=== PATIENT | male | born 1965 | race Caucasian/White ===

== ENCOUNTER 2021-07-26 15:18 | Emergency (ER) | payer MEDICARE, SELFPAY ==
[2021-07-26 15:20] VITALS: BP 176/108; PULSE 94; RESP 18; TEMP 36.6; O2SAT 98; BMI 26.2
--- NOTE | 2021-07-26 16:54 | EDS_ITS ---
HPI History of Present Illness Chief Complaint: Laceration Informant: patient Narrative Narrative: 55-year-old male presenting with left middle finger injury. Patient accidentally sliced his finger on a potato slicer. This occurred 2 hours prior to arrival. He was not able to get the bleeding to stop. He is on Eliquis. Unknown last tetanus. Tetanus Immunization: Unknown [facility] Medical History (Updated 07/26/21 @ 16:[address] Stacy Duncan MD) Deaf Diabetes HTN (hypertension) Hyperlipidemia Stroke Vision problem Home Medications aspirin 325 mg tablet 325 mg PO DAILY 01/04/20 [History Last Taken Unknown] dorzolamide-timolol (PF) 2 %-0.5 % eye drops in a dropperette 1 drp OPHTHALMIC BID 01/04/20 [History Last Taken Unknown] latanoprost 0.005 % eye drops 1 drp OPHTHALMIC DAILY 01/04/20 [History Last Taken Unknown] pen needle, diabetic 31 gauge x 5/16 #1,200 ea 01/04/20 [History Last Taken Unknown] blood sugar diagnostic #100 ea 03/07/20 [Rx Last Taken Unknown] insulin degludec 200 unit/mL (3 mL) subcutaneous pen 40 unit SC DAILY #9 ml 05/24/20 [Rx Last Taken Unknown] insulin aspart U-100 100 unit/mL (3 mL) subcutaneous pen See Rx Instructions SC TID #30 ml 03/19/21 [Rx Last Taken Unknown] losartan 50 mg tablet 50 mg PO DAILY #30 tab 06/18/21 [Rx Last Taken Unknown] simvastatin 80 mg tablet 80 mg PO QHS #30 tab 07/04/21 [Rx Last Taken Unknown] Allergy/AdvReac Type Severity Reaction Status Date / Time No Known Allergies Allergy Verified 07/26/21 15:20 Family History Mother Diabetes Social History (Updated 05/25/20 @ 19:[address] Roberto Hutson MD) Smoking Status: Never smoker alcohol intake: never substance use type: does not use what type of physical activity do you participate in: none ROS ROS ED Constitutional Constitutional ED: Denies fever(s) Musculoskeletal Musculoskeletal: Reports other Details: left middle finger wound EXAM Physical Exam Const Vital Signs: 07/26/21 15:20 Temperature 98 F Temperature Source Temporal Pulse Rate 94 Respiratory Rate 18 Blood Pressure 176/108 H Blood Pressure Mean 130 Pulse Ox 98 Oxygen Delivery Method Room Air Positive well nourished and well developed General Appearance ED: well developed HEENT Reports normocephalic and head/scalp atraumatic Eyes PERRL and EOMs intact bilaterally Neck supple General: Negative for tenderness Chest Wall inspection of chest normal Resp normal respiratory effort and clear to auscultation bilaterally Cardio regular rate and regular rhythm no CVA tenderness Extremity normal to inspection Extremity Narrative: 0.5 cm left distal middle finger skin avulsion. Mild bleeding. Normal cap refill. Normal tendon function. Neuro oriented x3 Sensorium / Orientation: alert Psych mental status grossly normal MDM MDM MDM Narrative Medical decision making narrative: Wound was cleansed. He was given Tetanus IM. Wound was cleaned and dressed. Advised wound care instructions. Advised follow up with primary care physician. Discharge Plan Triage Chief Complaint: Laceration ED Provider: Stacy Duncan Dx/Rx/DC Orders Clinical Impression: Avulsion of skin Instructions: ED Skin Avulsion Prescriptions: No Action aspirin 325 mg tablet 325 mg PO DAILY RF: 0 (DME) pen needle, diabetic [Comfort EZ Pen [place]] 31 gauge x 5/16 needle See Rx Instructions .ROUTE .MEDSUPPLY Qty: 1,200 RF: 0 latanoprost 0.005 % drops 1 drp OPHTHALMIC DAILY RF: 0 dorzolamide-timolol (PF) 2-0.5 % dropperette 1 drp OPHTHALMIC BID RF: 0 (DME) blood sugar diagnostic [Accu-Chek Guide test strips] Strip See Rx Instructions .ROUTE .MEDSUPPLY Qty: 100 RF: 8 Tresiba FlexTouch U-200 200 unit/mL (3 mL) insulin pen 40 unit SC DAILY Qty: 9 RF: 6 insulin aspart U-100 [Novolog Flexpen U-100 Insulin] 100 unit/mL (3 mL) insulin pen See Rx Instructions SC TID Qty: 30 RF: 6 losartan 50 mg tablet 50 mg PO DAILY Qty: 30 RF: 6 simvastatin 80 mg tablet 80 mg PO QHS Qty: 30 RF: 0 Primary Care Provider: Shantell Campa NP Referrals: Shantell Campa NP, PLANNING ADVISOR-C [Primary Care Provider] - Disposition Disposition: Home, Self Care
== END 2021-07-26 17:27 | disposition home or self-care (01) ==
LOC: ED 17:11
PROVIDERS: Emergency Provider Emergency Medicine; PCP Family Medicine
DX: S61.213A Laceration without foreign body of left middle finger without damage to nail, initial encounter (principal); W26.8XXA Contact with other sharp object(s), not elsewhere classified, initial encounter; Y93.9 Activity, unspecified; Y92.9 Unspecified place or not applicable; I10 Essential (primary) hypertension; E11.9 Type 2 diabetes mellitus without complications; E78.5 Hyperlipidemia, unspecified; H91.90 Unspecified hearing loss, unspecified ear; Z86.73 Personal history of transient ischemic attack (TIA), and cerebral infarction without residual deficits; Z79.4 Long term (current) use of insulin; Z79.82 Long term (current) use of aspirin; Z79.01 Long term (current) use of anticoagulants; Z79.899 Other long term (current) drug therapy
CPT/HCPCS: 90715; 99282

== ENCOUNTER 2021-11-12 15:46 | Emergency (ER) | payer MEDICARE, SELFPAY ==
[2021-11-12 15:49] VITALS: BP 189/130; PULSE 84; RESP 20; TEMP 35.9; O2SAT 99; BMI 26.9
--- NOTE | 2021-11-12 15:57 | ED.RN ---
Pt's step son Ben notified of ER admission per pt's request. He will be coming in.
[2021-11-12 16:11] LABS: Bedside Glucose 68 mg/dL (70-110)
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
[2021-11-12 16:59] VITALS: PULSE 98; RESP 22; O2SAT 98
[2021-11-12 17:01] LABS: Bedside Glucose 70 mg/dL (70-110)
[2021-11-12 17:31] LABS: Bedside Glucose 150 mg/dL (70-110)
== END 2021-11-12 17:55 | disposition home or self-care (01) ==
PROVIDERS: Emergency Provider Emergency Medicine; PCP Family Medicine; Visit Provider Emergency Medicine
DX: E11.649 Type 2 diabetes mellitus with hypoglycemia without coma (principal); Z79.4 Long term (current) use of insulin; E78.5 Hyperlipidemia, unspecified; I10 Essential (primary) hypertension; H91.90 Unspecified hearing loss, unspecified ear; Z86.73 Personal history of transient ischemic attack (TIA), and cerebral infarction without residual deficits; Z79.899 Other long term (current) drug therapy; V89.2XXA Person injured in unspecified motor-vehicle accident, traffic, initial encounter; Y93.9 Activity, unspecified; Y92.9 Unspecified place or not applicable
CPT/HCPCS: 82962; 99285

== ENCOUNTER 2022-05-21 12:56 | Outpatient (RCR) | payer MEDICARE, SELFPAY | END 2022-06-10 23:59 | LOC: DC 12:56 | PROVIDERS: Referring Provider Nurse Practitioner Primary Care; Visit Provider Nurse Practitioner Primary Care | DX: E11.9 Type 2 diabetes mellitus without complications (principal) | CPT/HCPCS: G0108 ==

== ENCOUNTER 2022-07-09 13:00 | Outpatient (RCR) | payer MEDICARE, SELFPAY | END 2022-07-10 23:59 | LOC: DC 13:00 | PROVIDERS: Referring Provider Nurse Practitioner Primary Care; Visit Provider Nurse Practitioner Primary Care | DX: E11.9 Type 2 diabetes mellitus without complications (principal) | CPT/HCPCS: 97802; 97803 ==

== ENCOUNTER 2022-08-05 14:17 | Outpatient (RCR) | payer MEDICARE, SELFPAY | END 2022-08-10 23:59 | LOC: DC 14:17 | PROVIDERS: Referring Provider Nurse Practitioner Primary Care; Visit Provider Nurse Practitioner Primary Care | DX: E11.9 Type 2 diabetes mellitus without complications (principal) | CPT/HCPCS: 97803 ==

== ENCOUNTER 2022-09-01 13:45 | Outpatient (RCR) | payer MEDICARE, SELFPAY | END 2022-09-09 23:59 | LOC: DC 13:45 | PROVIDERS: Referring Provider Nurse Practitioner Primary Care; Visit Provider Nurse Practitioner Primary Care | DX: E11.9 Type 2 diabetes mellitus without complications (principal) | CPT/HCPCS: 97803 ==

== ENCOUNTER 2022-09-15 10:33 | Emergency (ER) | payer MEDICARE, SELFPAY ==
[2022-09-15 10:34] VITALS: BP 174/85; PULSE 82; RESP 22; TEMP 36.5; O2SAT 95
[2022-09-15 10:39] VITALS: O2SAT 96
[2022-09-15 10:41] VITALS: BP 169/88; PULSE 84; RESP 22; TEMP 36.5; O2SAT 96; BMI 28.8
--- NOTE | 2022-09-15 10:56 | ED.RN ---
pt is deaf and does not read well, pt has difficulty understanding what we are asking when we write on paper. pt may have limited reading ability. pt is write on paper the name Corinne Rapp. He is listed as next of kin. an attempt to contact corinne was unsuccessful.
--- NOTE | 2022-09-15 10:59 | ED.RN ---
family at bedside.
[2022-09-15 11:10] LABS: Bedside Glucose 118 mg/dL (74-106)
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
[2022-09-15 12:26] LABS: Bedside Glucose 145 mg/dL (74-106)
[2022-09-15 12:47] VITALS: BP 157/84; PULSE 74; RESP 16; TEMP 36.8; O2SAT 97
== END 2022-09-15 13:02 | disposition home or self-care (01) ==
PROVIDERS: Emergency Provider Emergency Medicine; PCP Nurse Practitioner Family; Visit Provider Emergency Medicine
DX: E10.649 Type 1 diabetes mellitus with hypoglycemia without coma (principal); E10.319 Type 1 diabetes mellitus with unspecified diabetic retinopathy without macular edema; Z79.4 Long term (current) use of insulin; I10 Essential (primary) hypertension; R55 Syncope and collapse; E78.5 Hyperlipidemia, unspecified
CPT/HCPCS: 99285; 82962

== ENCOUNTER 2022-09-16 06:31 | Inpatient (IN) | payer MEDICARE, SELFPAY ==
[2022-09-16] VITALS (26 sets, daily range): BP systolic 137–207; BP diastolic 70–169; PULSE 79–121; RESP 12–38; TEMP 36.2–36.7; O2SAT 88–100; BMI 25.9; BMI 25.5
[2022-09-16] MEDS: Albuterol 2.5 MG/3 ML VIAL.NEB. INHALATION ×4 (06:45→19:15)
[2022-09-16] MEDS: Ipratropium/Albuterol Sulfate 3 ML AMPUL.NEB INHALATION (06:45)
--- NOTE | 2022-09-16 06:46 | EKG12_ITS ---
Test Reason : CP Blood Pressure : / mmHG Vent. Rate : 118 BPM Atrial Rate : 118 BPM P-R Int : 158 ms QRS Dur : 096 ms QT Int : 338 ms P-R-T Axes : 071 084 264 degrees QTc Int : 473 ms Sinus tachycardia Left ventricular hypertrophy with repolarization abnormality Abnormal ECG Confirmed by RUBIN HERMOSILLO, GIANLUCA ([id number]), food expeditor EMMANUEL NEWMAN ([id number]) on 09/17/2022 2:03:14 PM Referred By: KRISTI Confirmed By:CRESCENCIO CONKLIN MD
[2022-09-16 06:56] LABS: Absolute Lymphocyte Count 0.89 X10^3/uL (0.83-4.51); Basophil% 0.9 % (0-1); Eosinophil# 0.07 X10^3/uL; Eosinophils% 0.6 % (0-5); Hematocrit 31.3 % (40-54); Hemoglobin 10.2 g/dL (13.0-16.5); Lymphocyte # 0.89 X10^3/ul (0.83-4.51); Lymphocyte % 8.1 % (19-41); Mean Corp Hgb Conc 32.6 g/dL (32-36); Mean Corpuscular Volume 92.1 fL (80-94); Monocyte# 0.85 X10^3/uL; Monocyte% 7.7 % (0-10); NRBC Flagged by Analyzer 0 % (0-5); Neutrophil # 9.03 X10^3/uL (2.7-7.7); Neutrophil % 82.3 % (47-70); Platelet Count 355 K/mm3 (150-450); RBC Distribution Width CV 12.2 % (11.6-14.6)
[2022-09-16 07:08] LABS: International Normalized Ratio 1.1; Prothrombin Time (Protime)PT. 13.4 SECONDS (11.7-14.9)
[2022-09-16 07:09] LABS: Partial Thromboplast Time 33.3 Seconds (24.1-36.2)
[2022-09-16] MEDS: Nitroglycerin SL (ED/IMG/CATH) 0.4 MG TABLET SL ×3 (07:09→07:21)
[2022-09-16] MEDS: Aspirin 325 MG Tablet PO (07:09)
[2022-09-16 07:21] LABS: Anion Gap 10 (5-15); BUN 92 mg/dL (7-18); BUN/Creat Ratio 10.5 RATIO (10-20); Calcium,Total 8.3 mg/dL (8.5-10.1); Chloride 111 mmol/L (98-107); Creatinine, Serum 8.76 mg/dL (0.70-1.30); EST Glomerular Filtration Rate 7 mL/min (>60); Est Glom Filt Rate - Afr Amer 8 mL/min (>60); Estimated Creatinine Clearance 9.49 ml/min; Glucose 460 mg/dL (74-106); Magnesium 2.4 mg/dL (1.6-2.6); Potassium 4.6 mmol/L (3.5-5.1); Sodium Level 138 mmol/L (136-145); Troponin-I HS 1211 pg/mL (3.0-78.0)
--- NOTE | 2022-09-16 07:34 | EX.ED.DYSGE1 ---
HPI History of Present Illness Chief Complaint: Shortness of Breath Narrative Narrative: Patient is a 57-year-old male who is deaf and has a past medical history of type 1 diabetes as well as hypertension and hyperlipidemia. He has had previous stroke but is currently only on a full-strength aspirin and no true anticoagulation. Patient reported increased shortness of breath over the past 24 hours with some cough and congestion. He felt like symptoms were steadily worsening and secondary to this comes in for evaluation. Please note that the patient is deaf the history is taken from his family member who interprets [facility] Medical History (Updated 09/16/22 @ 07:[address] Pranay Castro, DO) Deaf Diabetes HTN (hypertension) Hyperlipidemia Stroke Vision problem Home Medications aspirin 325 mg tablet 325 mg PO DAILY 01/04/20 [History Last Taken Unknown] dorzolamide-timolol (PF) 2 %-0.5 % eye drops in a dropperette 1 drp ophthalmic (eye) BID 01/04/20 [History Last Taken Unknown] latanoprost 0.005 % eye drops 1 drp ophthalmic (eye) DAILY 01/04/20 [History Last Taken Unknown] pen needle, diabetic 31 gauge x 5/16 (Comfort EZ Pen [place]) #1,200 ea 01/04/20 [History Last Taken Unknown] blood sugar diagnostic (Accu-Chek Guide test strips) #100 ea 03/07/20 [Rx Last Taken Unknown] simvastatin 80 mg tablet 80 mg PO QHS #30 tabs 07/04/21 [Rx Last Taken Unknown] losartan 50 mg tablet 50 mg PO BID #180 tabs 05/11/22 [Rx Last Taken Unknown] insulin aspart U-100 100 unit/mL (3 mL) subcutaneous pen (Novolog Flexpen U-100 Insulin aspart) See Rx Instructions subcut TID #30 mL 07/02/22 [Rx Last Taken Unknown] amlodipine 5 mg tablet 5 mg PO DAILY 09/14/22 [History Last Taken Unknown] omeprazole 20 mg capsule,delayed release 20 mg PO DAILY 09/14/22 [History Last Taken Unknown] insulin degludec 200 unit/mL (3 mL) subcutaneous pen (Tresiba FlexTouch U-200 insulin) 25 unit subcut DAILY 09/16/22 [History Last Taken Unknown] Allergy/AdvReac Type Severity Reaction Status Date / Time No Known Allergies Allergy Verified 09/15/22 10:39 Family History Mother Diabetes Social History Smoking Status: Never smoker alcohol intake: never substance use type: does not use what type of physical activity do you participate in: none ROS ROS ED Constitutional Constitutional ED: Denies fever(s) Eyes Eyes: Denies change in vision ENT ENT ED: Denies sore throat Cardiovascular Cardiovascular: Reports racing heartbeat Respiratory/Chest Respiratory/Chest: Reports cough and dyspnea Gastrointestinal Gastrointestinal: Denies abdominal pain, nausea or vomiting Genitourinary Genitourinary ED: Denies dysuria Musculoskeletal Musculoskeletal: Denies myalgias Neurologic Neurologic: Denies headache(s) EXAM Physical Exam Const Vital Signs: 09/16/22 06:32 09/16/22 06:46 09/16/22 06:45 Temperature 97.3 F L Temperature Source Temporal Pulse Rate 121 H 115 H Respiratory Rate 38 H 34 H Respiratory Effort Short of Breath Labored Accessory Muscle Use Respiratory Pattern Tachypnea Tachypnea Blood Pressure 207/124 H Blood Pressure Mean 151 Pulse Ox 97 Oxygen Delivery Method Room Air Room Air 09/16/22 07:09 09/16/22 07:15 09/16/22 07:21 Temperature Temperature Source Pulse Rate 111 H 112 H 114 H Respiratory Rate Respiratory Effort Respiratory Pattern Blood Pressure 201/89 H 168/88 H 188/108 H Blood Pressure Mean Pulse Ox Oxygen Delivery Method Positive well nourished and well developed General Appearance ED: well developed HEENT Reports dry mucous membranes HEENT Narrative: Mucous membranes are dry and tacky without tongue or lip swelling oral lesions airway edema or compromise Mouth ED: Yes dry mucous membranes Mouth: dry mucous membranes Eyes PERRL and EOMs intact bilaterally Neck supple and no JVD Chest Wall palpation of chest normal Resp Resp Narrative: Patient is tachypneic with diminished breath sounds throughout and faint diffuse expiratory wheezing. Cardio regular rhythm Rate: tachycardic and other Other Details: Radial pulses are plus 2 out of 4 bilaterally they are equal and symmetric Carotid pulses are equal and symmetric as well GI normal to inspection, nondistended, normoactive bowel sounds, non-tender, non-distended and no masses GI Narrative: No voluntary guarding or rigidity no pulsatile mass or fluid wave Auscultation: normoactive bowel sounds Palpation: soft Extremity Extremity Narrative: +1 pitting edema to the bilateral lower extremities that is equal and symmetric Neuro oriented x3 and CN's II-XII intact bilaterally Neuro Narrative: Patient has chronic changes from previous CVA but no new/acute findings Sensorium / Orientation: alert Psych mental status grossly normal Skin no rashes or lesions noted MDM MDM MDM Narrative Medical decision making narrative: Patient presented to the ER extremely hypertensive but had not taken any of his morning medications he was also tachycardic and tachypneic but afebrile and satting in the high 90s on room air. His EKG showed diffuse ST segment depression and with his report of shortness of breath I did have concern for underlying cardiac event or possible PE. He did have faint wheezes noted on exam so he was given breathing treatments and also placed on a sublingual nitro trial because of the ST segment depression noted on his EKG as well as hypertension. The patient's blood pressure improved with the nitro trial but the ST segment depression remained. Lab work revealed that he is now an acute kidney injury with a creatinine of 8.76 and his troponin is elevated at 1211. Secondary to this finding and his depression the case was discussed with cardiology. At this point because of his acute kidney injury I do not recommend that he go to [facility] and they do not recommend a heparin drip. The CTA was changed to a chest x-ray which shows pulmonary vascular congestion without acute infiltrate or pneumothorax. At this time he will be admitted to the hospitalist with plans of cardiology and nephrology consults. As the patient is still maintaining his airway and satting in the mid 90s on room air we will hold off on a nitro drip at this time. Lab Data Attestation: I reviewed the patient's lab results. Labs: Laboratory Results - last 24 hr 09/16/22 09/16/22 09/16/22 06:36 06:36 06:36 WBC 11.0 RBC 3.40 L Hgb 10.2 L Hct 31.3 L MCV 92.1 MCH 30.0 MCHC 32.6 RDW Std Deviation 41.0 RDW Coeff of Jenifer 12.2 Plt Count 355 MPV 12.0 Immature Gran % (Auto) 0.400 Neut % (Auto) 82.3 H Lymph % (Auto) 8.1 L [place] % (Auto) 7.7 Eos % (Auto) 0.6 Baso % (Auto) 0.9 Absolute Neuts (auto) 9.0 H Absolute Lymphs (auto) 0.89 Nucleated RBC % 0 PT 13.4 INR 1.1 APTT 33.3 Sodium 138 Potassium 4.6 Chloride 111 H Carbon Dioxide 17.0 L Anion Gap 10 BUN 92 H Creatinine 8.76 H* Estim Creat Clear Calc 9.49 Est GFR (MDRD) Af Amer 8 L Est GFR (MDRD) Non-Af 7 L BUN/Creatinine Ratio 10.5 Glucose 460 H* Calcium 8.3 L Magnesium 2.4 Troponin I High Sens 1211 H* Radiography Diagnostic Testin view chest x-ray as interpreted by the emergency medicine physician reveals pulmonary vascular congestion without acute infiltrate or pneumothorax Critical Care Time Critical Care Time: Yes Critical care time (excluding procedures): Discussing w/Patient &/or Family/Interior Design Instructor, Discussing w/Consultants and - (Please note critical care time of 33 minutes) Discharge Plan Triage Chief Complaint: Shortness of Breath ED Provider: Pranay Castro Dx/Rx/DC Orders Clinical Impression: Acute renal failure, Non-ST elevated myocardial infarction (non-STEMI), Type 1 diabetes, Hypertensive emergency Prescriptions: No Action aspirin 325 mg tablet 325 mg PO DAILY (DME) pen needle, diabetic [Comfort EZ Pen [place]] 31 gauge x 5/16 needle See Rx Instructions .ROUTE .MEDSUPPLY Qty: 1,200 Rx Instructions: use to inject insulin 4 x qd latanoprost 0.005 % drops 1 drp OPHTHALMIC DAILY dorzolamide-timolol (PF) 2-0.5 % dropperette 1 drp OPHTHALMIC BID (DME) blood sugar diagnostic [Accu-Chek Guide test strips] Strip See Rx Instructions .ROUTE .MEDSUPPLY Qty: 100 8RF Rx Instructions: test 3 times daily losartan 50 mg tablet 50 mg PO BID Qty: 180 1RF omeprazole 20 mg capsule,delayed release(DR/EC) 20 mg PO DAILY amlodipine 5 mg tablet 5 mg PO DAILY insulin degludec [Tresiba FlexTouch U-200] 200 unit/mL (3 mL) insulin pen 25 unit SC DAILY simvastatin 80 mg tablet 80 mg PO QHS Qty: 30 0RF insulin aspart U-100 [Novolog Flexpen U-100 Insulin] 100 unit/mL (3 mL) insulin pen See Rx Instructions SC TID Qty: 30 3RF Rx Instructions: 38 with meals, 16 with snacks, plus ssi, Primary Care Provider: Marta Brooks Referrals: Marta Brooks, DIRECTOR [employer]UC[employer] [Primary Care Provider] - Disposition Disposition: Acute Care Hospital [facility]
--- NOTE | 2022-09-16 07:35 | RAD_ITS ---
STUDY: X-RAY CHEST REASON FOR EXAM: Male, 57 years old. Dyspnea TECHNIQUE: Single AP portable view of the chest. COMPARISON: Comparison is made with prior study dated 12/05/2007. FINDINGS: EKG electrodes are seen. There is evidence of vascular congestion and CHF with superimposed bibasilar atelectasis worse on the right lung base. Blunting of both costophrenic angles. Normal size heart. Normal mediastinum and aric. Normal visualized pulmonary arteries. Normal visualized aortic arch and descending thoracic aorta. Normal visualized thoracic spine. Normal visualized ribs, clavicles, and shoulders. There is no demonstrated abnormality of the visualized soft tissue structures of the upper abdomen. RAD/Chest 1 View (Portable) IMPRESSION: Findings indicative of CHF with superimposed bibasilar atelectasis worse at the right lung base. Electronically Signed: Eleazar Farrar MD at 8:36 EST ,
--- NOTE | 2022-09-16 07:40 | NURSING ---
DR MEAGAN BEE
--- NOTE | 2022-09-16 07:44 | NURSING ---
DR MEAGAN BEE
--- NOTE | 2022-09-16 07:45 | NURSING ---
PCU MEAGAN ACUTE KIDNEY INJURY, NSTEMI
--- NOTE | 2022-09-16 08:20 | CASEMGMT ---
According to the [facility], the following are in-network tertiary facilities: [facility], [facility], [facility], [facility], [facility], [facility], [facility], and . Behzad HALL CM
--- NOTE | 2022-09-16 08:39 | HP.PCM.HOS_ITS ---
[facility] - General General Date of Admission: 09/16/22 Date of Service: 09/16/22 Chief Complaint: Chest pain. Shortness of breath. HPI Narrative SCOTT BUTLER, is a 57 M who presents with chest pain and shortness of breath that began today. Patient is a poor historian due to deafness and history is obtained through emergency room physician, review of documentations as well as interpretation through the patient's stepson as the patient does not read, does not read lips and only signs. Patient had been in his normal state of health but then yesterday, had an event where he fell and was noted to be hypoglycemic. Sent to the emergency room at that time. Patient had a blood sugar of 36. Patient had received D5 and ate some candy and blood sugar improved. Patient is also been having a cough. Just getting worse. In the emergency room, patient was noted to have the following: Pulmonary vascular congestion chest x-ray, glucose of 460, carbon dioxide level of 17 but closed anion gap, creatinine of 8.76, troponin of 1211, and BNP 1085. Patient received bronchodilators, nitroglycerin, aspirin and a dose of insulin in the emergency room. Patient has been on room air. Patient blood pressure was noted to be elevated at 207/124. Patient did not receive treatment for his hypertension. [facility] Medical History (Updated 09/16/22 @ 08:[address] Prabhjot Bliss, ) Congenital deafness Deaf Diabetes HTN (hypertension) Hyperlipidemia Stroke Vision problem Home Medications aspirin 325 mg tablet 325 mg PO DAILY 01/04/20 [History Last Taken Unknown] dorzolamide-timolol (PF) 2 %-0.5 % eye drops in a dropperette 1 drp ophthalmic (eye) BID 01/04/20 [History Last Taken Unknown] latanoprost 0.005 % eye drops 1 drp ophthalmic (eye) DAILY 01/04/20 [History Last Taken Unknown] pen needle, diabetic 31 gauge x 5/16 (Comfort EZ Pen [place]) #1,200 ea 01/04/20 [History Last Taken Unknown] blood sugar diagnostic (Accu-Chek Guide test strips) #100 ea 03/07/20 [Rx Last Taken Unknown] simvastatin 80 mg tablet 80 mg PO QHS #30 tabs 07/04/21 [Rx Last Taken Unknown] losartan 50 mg tablet 50 mg PO BID #180 tabs 05/11/22 [Rx Last Taken Unknown] insulin aspart U-100 100 unit/mL (3 mL) subcutaneous pen (Novolog Flexpen U-100 Insulin aspart) See Rx Instructions subcut TID #30 mL 07/02/22 [Rx Last Taken Unknown] amlodipine 5 mg tablet 5 mg PO DAILY 09/14/22 [History Last Taken Unknown] omeprazole 20 mg capsule,delayed release 20 mg PO DAILY 09/14/22 [History Last Taken Unknown] insulin degludec 200 unit/mL (3 mL) subcutaneous pen (Tresiba FlexTouch U-200 insulin) 25 unit subcut DAILY 09/16/22 [History Last Taken Unknown] Allergy/AdvReac Type Severity Reaction Status Date / Time No Known Allergies Allergy Verified 09/15/22 10:39 Family History (Updated 09/16/22 @ 08:[address] Prabhjot Bliss DO) Mother Diabetes Deaf Surgical History unable to obtain unable to obtain Social History Smoking Status: Never smoker alcohol intake: never substance use type: does not use what type of physical activity do you participate in: none ROS Review of Systems ROS Unobtainable: other Details: Deafness Vital Signs Vital Signs Vital Signs: 09/16/22 06:32 09/16/22 06:46 09/16/22 06:45 Temperature 36.3 C L Temperature Source Temporal Pulse Rate 121 H 115 H Respiratory Rate 38 H 34 H Respiratory Effort Short of Breath Labored Accessory Muscle Use Respiratory Pattern Tachypnea Tachypnea Blood Pressure 207/124 H Blood Pressure Mean 151 Pulse Ox 97 Oxygen Delivery Method Room Air Room Air 09/16/22 07:09 09/16/22 07:15 09/16/22 07:21 Temperature Temperature Source Pulse Rate 111 H 112 H 114 H Respiratory Rate Respiratory Effort Respiratory Pattern Blood Pressure 201/89 H 168/88 H 188/108 H Blood Pressure Mean Pulse Ox Oxygen Delivery Method 09/16/22 07:42 Temperature 36.2 C L Temperature Source Temporal Pulse Rate 108 H Respiratory Rate 27 H Respiratory Effort Respiratory Pattern Blood Pressure 183/169 H Blood Pressure Mean 173 Pulse Ox 94 Oxygen Delivery Method Room Air Weight Weight: 82.2 kg Body Mass Index (BMI) 25.9 Physical Exam Const alert and no apparent distress Constitutional Narrative: Does appear tachypneic but not in any respiratory distress. HEENT normocephalic Resp normal respiratory effort, no retractions, no use of accessory muscles and clear to auscultation bilaterally Cardio regular rate, regular rhythm, S1 normal heart sound and S2 normal heart sound GI normal to inspection, nondistended, normoactive bowel sounds, soft to palpation, non-tender and non-distended Extremity normal to inspection Neuro moves all extremities and no focal motor deficits Psych affect normal Results Lab / Micro Data Attestation: I reviewed the patient's lab results. Result Diagrams: 09/16/22 06:36 09/16/22 06:36 Labs: Laboratory Results - last 24 hr 09/16/22 06:36: WBC 11.0, RBC 3.40 L, Hgb 10.2 L, Hct 31.3 L, MCV 92.1, MCH 30.0, MCHC 32.6, RDW Std Deviation 41.0, RDW Coeff of Jenifer 12.2, Plt Count 355, MPV 12.0, Immature Gran % (Auto) 0.400, Neut % (Auto) 82.3 H, Lymph % (Auto) 8.1 L, [place] % (Auto) 7.7, Eos % (Auto) 0.6, Baso % (Auto) 0.9, Absolute Neuts (auto) 9.0 H, Absolute Lymphs (auto) 0.89, Nucleated RBC % 0 09/16/22 06:36: PT 13.4, INR 1.1, APTT 33.3 09/16/22 06:36: Sodium 138, Potassium 4.6, Chloride 111 H, Carbon Dioxide 17.0 L , Anion Gap 10, BUN 92 H, Creatinine 8.76 H*, Estim Creat Clear Calc 9.49, Est GFR (MDRD) Af Amer 8 L, Est GFR (MDRD) Non-Af 7 L, BUN/Creatinine Ratio 10.5, Glucose 460 H*, Calcium 8.3 L, Magnesium 2.4, Troponin I High Sens 1211 H* 09/16/22 06:36: B-Natriuretic Peptide 1085.0 H Micro: Microbiology 09/16/22 07:05 Nasal Secretion SARS-CoV-2 & FLU Antigen (Rapid) - Final EKG Initial EKG: Attestation: I personally reviewed and interpreted this EKG as follows: Prior EKG tracings: available for review EKG Rhythm Intrepretation: Sinus Rhythm (ST depressions in the inferior leads) Radiology Impression Chest X-Ray 09/16/22 07:35 IMPRESSION: Findings indicative of CHF with superimposed bibasilar atelectasis worse at the right lung base. Electronically Signed: Eleazar Farrar MD at 8:36 EST , Assessment & Plan Assessment/Plan (1) Non-ST elevated myocardial infarction (non-STEMI): PLAN: Troponins were 1211. Patient did have some ST depressions in the inferior leads. Raynaud's troponins may be skewed upwards due to his acute kidney injury but he is having ongoing chest pain. Unclear if this chest pain is actually cardiac or musculoskeletal as patient is a poor historian even with diesel machinist. Plan: * Patient will be put on a heparin drip. Patient did receive aspirin in the emergency room and will continue. * Check an echocardiogram * Consult cardiology * Given his kidney function there is no current plans for cardiac catheterization until his kidney function is improved or stabilized if that would be necessary. * Will start metoprolol tartrate. (2) Acute renal failure: PLAN: Through [facility] I was able to see patient had a BMP on February 19, 2021 and his creatinine at that time was 1.66. I do not see any additional BMPs in the interim. Unclear if this is been just a chronic progression since then or this is been an acute worsening Plan: * Hold losartan * will check urine studies (UA, UCx, Carmen, UCr) * Check renal ultrasound * IV fluids. Patient with metabolic acidosis due to his kidney disease and patient be placed on a bicarb drip * Consult nephrology * No no acute plans for renal replacement therapy at this point. I did tell the patient benjamin, who interpreted that about the possible need for hemodialysis in the future. He relayed that information to the patient. Whether or not the patient understood that is unclear. 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 Blood sugars elevated but patient is not currently in DKA Continue with basal insulin to 25 units daily and his prandial insulin is at 38 but I will change it over 30 but also have a sliding scale insulin. Last A1c from September 14 was 7 (5) Congenital deafness: PLAN: Patient cannot read. Additionally he cannot read lips. He only understands sign language and will require an diesel machinist for communicat ion PLAN: Plan VTE prophylaxis: Not indicated as patient will be anticoagulated. Charges/Coding Visit Charges Inpatient E&M: 77151 Init Hosp L3
--- NOTE | 2022-09-16 09:02 | EKG12_ITS ---
Test Reason : Blood Pressure : / mmHG Vent. Rate : 080 BPM Atrial Rate : 080 BPM P-R Int : 162 ms QRS Dur : 086 ms QT Int : 442 ms P-R-T Axes : 071 080 206 degrees QTc Int : 509 ms Normal sinus rhythm ST & T wave abnormality, consider lateral ischemia Prolonged QT Abnormal ECG When compared with ECG of 16-SEP-2022 06:37, ST less depressed in Lateral leads T wave inversion less evident in Inferior leads Nonspecific T wave abnormality, worse in Anterior leads Confirmed by AMRITA HERMOSILLO, MYRA ([id number]), subeditor EMMANUEL NEWMAN ([id number]) on 09/22/2022 11:32:26 AM Referred By: Du Confirmed By:MYRA CROWE MD
--- NOTE | 2022-09-16 09:02 | US_ITS ---
STUDY: RENAL ULTRASOUND - COMPLETE REASON FOR EXAM: Male, 57 years old. TREVOR TECHNIQUE: Ultrasound evaluation of the kidneys was performed with real-time and static rosales-scale imaging. COMPARISON: None. FINDINGS: RIGHT KIDNEY: Normal location of the right kidney, which is normal in size. The right kidney measures 9.2 cm x 4.9 cm x 4.5 cm. There is diffuse thinning of the renal cortex. The renal cortex measures 0.8 cm. Increased echogenicity of the renal cortex suggestive of medical renal disease. There is no right renal mass or cyst. There are no right renal calculi. There is no right hydronephrosis. DISTAL RIGHT URETER: There is non-visualization of the distal right ureter. There is no demonstrated right ureterovesical junction calculus. There is no demonstrated right ureteral jet. LEFT KIDNEY: with mild renal atrophy. The left kidney measures 8.8 cm x 4.5 cm x 5.9 cm. There is a normal cortex of the left kidney. The renal cortex measures 1.1 cm. Increased cortical echotexture suggesting medical renal disease. There is no left renal mass or cyst. There are no left renal calculi. There is no left hydronephrosis. DISTAL LEFT URETER: There is non-visualization of the distal left ureter. There is no demonstrated left ureterovesical junction calculus. There is no demonstrated left ureteral jet. BLADDER: The distended urinary bladder has a volume of 277 ml. There is a normal wall thickness of the distended urinary bladder. There is no demonstrated mass within the urinary bladder. There are no demonstrated bladder calculi. US/Kidney and Bladder IMPRESSION: Increased bilateral renal cortical echotexture. This may represent medical renal disease. Electronically Signed: Eleazar Farrar MD at 12:25 EST ,
--- NOTE | 2022-09-16 09:02 | ECHOD_ITS ---
Reason For Study: NSTEMI Procedure This was a 2D Doppler, Color Flow transthoracic echocardiogram. Technically difficult study, patient unable to hold still and needed to sit up due to SOB. Exam performed portable in patient room. Left Ventricle Normal LV size. The estimated ejection fraction is 35 %. Stage 3 diastolic dysfunction. There is moderate to severe global hypokinesis of the left ventricle. Right Ventricle Normal RV size. Normal systolic function. Atria Normal left atrium. Normal right atrium. Mitral Valve Normal mitral valve. Mild-Moderate (1-2+) eccentric mitral valve insufficiency. Tricuspid Valve Normal tricuspid valve. Mild to moderate (1-2+) tricuspid valve insufficiency. Pulmonary artery systolic pressure is 40 mmHg. Aortic Valve Trisinus/trileaflet aortic valve. Pericardium/Pleural No pericardial effusion. MMode/2D Measurements & Calculations LVIDd: 4.7 cm IVSd: 1.1 cm Ao root diam: 3.4 cm LVIDs: 3.7 cm LVPWd: 0.72 cm LA dimension: 4.0 cm RVDd: 4.1 cm FS: 22.6 % LAV(MOD-bp): 48.5 ml LA A4 area: 17.2 cm2 RA A4 area: 14.1 cm2 LAV(MOD-bp) Indexed: 24.2 ml/m2 LAV(MOD-sp2): 40.8 ml LAV(MOD-sp4): 50.4 ml Time Measurements MV dec time: 0.14 sec Doppler Measurements & Calculations MV E max pato: 106.5 cm/sec Lat Peak E' Pato: 6.3 cm/sec Med Peak E' Pato: 5.5 cm/sec MV A max pato: 57.0 cm/sec E/E' lat: 17.0 E/E' med: 19.4 MV E/A: 1.9 MV V2 max: 106.6 cm/sec MV P1/2t max pato: 106.6 cm/sec Ao V2 max: 109.2 cm/sec MV max P.6 mmHg MV P1/2t: 18.4 msec Ao max P.8 mmHg MV V2 mean: 58.4 cm/sec MV mean P.6 mmHg MV dec slope: 1699 cm/sec2 MV V2 VTI: 20.4 cm MVA(P1/2t): 12.0 cm2 LV V1 max: 99.0 cm/sec MR max pato: 555.9 cm/sec PA V2 max: 90.9 cm/sec LV V1 max P.9 mmHg MR max P.6 mmHg MR mean pato: 418.4 cm/sec MR mean P.0 mmHg MR VTI: 171.4 cm PI end-d pato: 214.1 cm/sec TR max pato: 300.1 cm/sec TR max P.0 mmHg ECHO/Echo Complete Interpretation Summary Normal LV size. The estimated ejection fraction is 35 %. Stage 3 diastolic dysfunction. There is moderate to severe global hypokinesis of the left ventricle. Mild-Moderate (1-2+) eccentric mitral valve insufficiency. Pulmonary artery systolic pressure is 40 mmHg. Ordering Physician: Prabhjot Bliss Referring Physician: Marta Brooks Performed By: Bert Thompson RCS
[2022-09-16] MEDS: Insulin Lispro 100 UNIT/ML INSULN.PEN 10 UNIT SC (09:32)
[2022-09-16] MEDS: HEPARIN/D5w 25,000 UNITS 25,000 UNITS/250 ML IV.SOLN. 10 UNITS CONT INF (09:36)
[2022-09-16] MEDS: Heparin Injection (Vial) 5,000 UNIT/ML VIAL 4000 UNIT IV (09:36)
[2022-09-16] MEDS: hydrALAZINE 20 MG/ML Vial 10 MG IV (09:37)
[2022-09-16] MEDS: 0.9% Saline Lock 10 ML Syringe IV (09:37)
--- NOTE | 2022-09-16 09:37 | PCM.CONS.C ---
Assessment & Plan Assessment/Plan (1) Non-ST elevated myocardial infarction (non-STEMI): PLAN: Patient presents with a non-ST elevation myocardial infarction. With his risk factors of hypertension as well as diabetes mellitus it is likely that he has premature coronary artery disease. At this point in time it is paramount that his renal function be evaluated before any cardiac catheterization is performed. Would recommend continuation of baby aspirin Intravenous heparin Start beta-gwyn Obtain echocardiogram to assess ventricular function Depending on these findings further recommendations will be made (2) Hypertensive emergency: PLAN: Aggressive treatment of his blood pressure should be instituted initially with amlodipine Recommend addition of the beta-gwyn As needed hydralazine Thank you for allowing me to participate in the care of your patient. Please don't hesitate to call if any issues arise. HPI Consult Data Date of Consult: 09/16/22 HPI Narrative HPI Narrative: SCOTT BUTLER, is a 57 M who presents to the emergency room with some complaints of shortness of breath and chest discomfort. He communicates by sign language only. His discomfort apparently started earlier in the day. He does have history of hypertension and diabetes mellitus and apparently yesterday he had an event where he felt was noted to be hypoglycemic. In the emergency room where he was brought he was noted to have markedly elevated blood pressure, EKG changes with some ST depression and LVH and he was noted to have evidence of elevated troponin and acute renal failure. Cardiology was called because of the ST changes in the troponin. At this particular time he denies any chest pain or paroxysmal nocturnal dyspnea he does have mild pedal edema. He also has a mild cough. [facility]LY [facility], [facility] Medical History Congenital deafness Deaf Diabetes HTN (hypertension) Hyperlipidemia Stroke Vision problem Home Medications aspirin 325 mg tablet 325 mg PO DAILY 01/04/20 [History Last Taken Unknown] dorzolamide-timolol (PF) 2 %-0.5 % eye drops in a dropperette 1 drp ophthalmic (eye) BID 01/04/20 [History Last Taken Unknown] latanoprost 0.005 % eye drops 1 drp ophthalmic (eye) DAILY 01/04/20 [History Last Taken Unknown] pen needle, diabetic 31 gauge x 5/16 (Comfort EZ Pen [place]) #1,200 ea 01/04/20 [History Last Taken Unknown] blood sugar diagnostic (Accu-Chek Guide test strips) #100 ea 03/07/20 [Rx Last Taken Unknown] simvastatin 80 mg tablet 80 mg PO QHS #30 tabs 07/04/21 [Rx Last Taken Unknown] losartan 50 mg tablet 50 mg PO BID #180 tabs 05/11/22 [Rx Last Taken Unknown] insulin aspart U-100 100 unit/mL (3 mL) subcutaneous pen (Novolog Flexpen U-100 Insulin aspart) See Rx Instructions subcut TID #30 mL 07/02/22 [Rx Last Taken Unknown] amlodipine 5 mg tablet 5 mg PO DAILY 09/14/22 [History Last Taken Unknown] omeprazole 20 mg capsule,delayed release 20 mg PO DAILY 09/14/22 [History Last Taken Unknown] insulin degludec 200 unit/mL (3 mL) subcutaneous pen (Tresiba FlexTouch U-200 insulin) 25 unit subcut DAILY 09/16/22 [History Last Taken Unknown] Allergy/AdvReac Type Severity Reaction Status Date / Time No Known Allergies Allergy Verified 09/15/22 10:39 Family History Mother Diabetes Deaf Surgical History unable to obtain Social History Smoking Status: Never smoker alcohol intake: never substance use type: does not use what type of physical activity do you participate in: none ROS Constitutional Constitutional: Denies fever(s) or weight loss Eyes Eyes: Reports systems reviewed and no addt'l complaints, except as documented ENT HEENT: Reports systems reviewed and no addt'l complaints, except as documented Cardiovascular Cardiovascular: Reports chest pain at rest, dyspnea at rest and dyspnea on exertion; Denies chest pain with activity, edema, palpitations or paroxysmal nocturnal dyspnea Respiratory/Chest Respiratory/Chest: Denies dyspnea on exertion, productive cough, shortness of breath at rest or shortness of breath with exertion Gastrointestinal Gastrointestinal: Denies change in bowel habits, nausea, vomiting or weight changes Genitourinary Genitourinary: Denies difficulty urinating Musculoskeletal Musculoskeletal: Denies joint stiffness or muscle weakness Integumentary Integumentary: Denies lesions Neurologic Neurologic: Denies dizziness or syncope Psychiatric Psychiatric: Denies anxiety Endocrine Endocrinology: Denies excessive sweating or fatigue Hematologic/Lymphatic Hematologic/Lymphatic: Denies anemia Allergic/Immunologic Allergic/Immunologic: Denies seasonal rhinorrhea Physical Exam Const alert, oriented x3 and no apparent distress General Appearance: cooperative HEENT hearing grossly normal bilaterally Head and Scalp: atraumatic Eyes EOMs intact bilaterally Neck General: normal visual inspection Chest inspection of chest normal and palpation of chest normal Resp normal respiratory effort Auscultation: crackles Cardio regular rate, regular rhythm, S1 normal heart sound and S2 normal heart sound Jugular Venous Distention: JVD GI normal to inspection, nondistended, normoactive bowel sounds Extremity normal capillary refill and no pedal edema Peripheral Pulses: Yes pulses 2+ throughout and femoral pulses present Skin no rashes or lesions noted Neuro oriented x3 and CN's II-XII intact bilaterally Psych Appearance: grossly normal and appropriate Risk Stratification Risk Stratification Applicable: Yes Age >/= 65: No >/= 3 CAD Risk Factors (HTN, HLD, DM, family hx of CAD, or current smoker): Yes Aspirin Use in the Past 7 Days: Yes Severe Angina (>/= episodes in 24 hours): No EKG ST Changes >/= 0.5mm: Yes Positive Cardiac Marker: Yes KAEL Risk Stratification Score: 4 KAEL % Risk: 20% Risk Objective Data Vital Signs: Vital Signs Temp Pulse Resp BP Pulse Ox O2 Del Method 97.5 F L 110 H 26 H 199/104 H 95 Room Air 09/16/22 09:14 09/16/22 09:14 09/16/22 09:14 09/16/22 09:14 09/16/22 09:14 09/16/22 09:14 Oxygen Delivery Method Room Air Weight: 181 lb 3.52 oz Body Mass Index (BMI) 25.9 Lab / Micro Data Result Diagrams: 09/16/22 06:36 09/16/22 06:36 Labs: Laboratory Results - last 24 hr 09/16/22 06:36: WBC 11.0, RBC 3.40 L, Hgb 10.2 L, Hct 31.3 L, MCV 92.1, MCH 30.0, MCHC 32.6, RDW Std Deviation 41.0, RDW Coeff of Jenifer 12.2, Plt Count 355, MPV 12.0, Immature Gran % (Auto) 0.400, Neut % (Auto) 82.3 H, Lymph % (Auto) 8.1 L, [place] % (Auto) 7.7, Eos % (Auto) 0.6, Baso % (Auto) 0.9, Absolute Neuts (auto) 9.0 H, Absolute Lymphs (auto) 0.89, Nucleated RBC % 0 09/16/22 06:36: PT 13.4, INR 1.1, APTT 33.3 09/16/22 06:36: Sodium 138, Potassium 4.6, Chloride 111 H, Carbon Dioxide 17.0 L, Anion Gap 10, BUN 92 H, Creatinine 8.76 H*, Estim Creat Clear Calc 9.49, Est GFR (MDRD) Af Amer 8 L, Est GFR (MDRD) Non-Af 7 L, BUN/Creatinine Ratio 10.5, Glucose 460 H*, Calcium 8.3 L, Magnesium 2.4, Troponin I High Sens 1211 H* 09/16/22 06:36: B-Natriuretic Peptide 1085.0 H Micro: Microbiology 09/16/22 07:05 Nasal Secretion SARS-CoV-2 & FLU Antigen (Rapid) - Final Cardiology Labs/Tests 09/16/22 06:36: WBC 11.0, RBC 3.40 L, Hgb 10.2 L, Hct 31.3 L, MCV 92.1, MCH 30.0, MCHC 32.6, Plt Count 355, MPV 12.0, Immature Gran % (Auto) 0.400, Neut % (Auto) 82.3 H, Lymph % (Auto) 8.1 L, [place] % (Auto) 7.7, Eos % (Auto) 0.6, Baso % (Auto) 0.9, Absolute Neuts (auto) 9.0 H, Nucleated RBC % 0 09/16/22 06:36: PT 13.4, INR 1.1, APTT 33.3 09/16/22 06:36: Sodium 138, Potassium 4.6, Chloride 111 H, Carbon Dioxide 17.0 L, Anion Gap 10, BUN 92 H, Creatinine 8.76 H*, Est GFR (MDRD) Af Amer 8 L, Est GFR (MDRD) Non-Af 7 L, BUN/Creatinine Ratio 10.5, Glucose 460 H*, Calcium 8.3 L, Magnesium 2.4 09/16/22 06:36: B-Natriuretic Peptide 1085.0 H Rhythm: EKG: ECHO: Stress Test: Cardiac Cath: PCI: CT Surgery: Holter monitor: EPS: PPM: CXR: Chest CT Scan: Radiography Diagnostic Testing: Radiology Impression Chest X-Ray 09/16/22 07:35 IMPRESSION: Findings indicative of CHF with superimposed bibasilar atelectasis worse at the right lung base. Electronically Signed: Eleazar Farrar MD at 8:36 EST ,
[2022-09-16 09:56] LABS: Troponin-I HS 2012 pg/mL (3.0-78.0)
[2022-09-16] MEDS: Insulin Glargine-YFGN 100 UNIT/ML Pen 25 UNIT SC (10:47)
[2022-09-16] MEDS: Insulin Lispro 100 UNIT/ML INSULN.PEN 38 UNIT SC (10:47)
[2022-09-16] MEDS: Pantoprazole Sodium 20 MG Tablet PO (10:50)
[2022-09-16] MEDS: amLODIPine 5 MG Tablet PO (10:50)
[2022-09-16] MEDS: Metoprolol Tartrate 50 MG Tablet PO ×2 (10:50→23:52)
[2022-09-16] MEDS: Dorzolamide HCL/Timolol 10 ml Bottle 1 DRP OPHTHALMIC ×2 (10:50→23:51)
[2022-09-16 11:26] LABS: Bedside Glucose 398 mg/dL (74-106)
--- NOTE | 2022-09-16 11:32 | NURSING ---
Complained of SOB, pulse ox 88% on 2l/nc. Oxygen applied at 2l/NC, pulse ox 92%. Dr. Bliss notified.
[2022-09-16 12:56] LABS: Troponin-I HS 2864 pg/mL (3.0-78.0)
[2022-09-16] MEDS: Insulin Lispro 100 UNIT/ML INSULN.PEN SC (13:02)
[2022-09-16 13:26] LABS: Bedside Glucose 240 mg/dL (74-106)
--- NOTE | 2022-09-16 15:39 | PCM.CONS.R ---
Assessment & Plan Assessment/Plan (1) Acute renal failure: PLAN: No recent baseline creatinine available. We'll call family members/primary care physician. Came in with a creatinine of 8. Renal ultrasound without any hydronephrosis. Urine analysis and other labs ordered. Acidosis, presumably due to renal failure. IV fluids with bicarbonate for now. Elevated troponins. Cardiology on consult. HPI Consult Data Date of Consult: 09/16/22 HPI Narrative Reason for Consultation: Acute renal failure HPI Narrative: SCOTT BUTLER, is a 57 M who presents To the hospital with shortness of breath. Nephrology on consultation for acute renal failure. Patient communicates somewhat through writing, needs dress designer for most of the conversation. History of diabetes, type II, documented retinopathy as per previous records. No recent creatinine available, last known creatinine was 1.3 but that was in 2013. We'll call family to see if any recent creatinine value available. Denies any obstructive symptoms. Came in with a creatinine of 8, elevated troponins, elevated blood pressure, elevated blood glucose. [facility] Medical History Congenital deafness Deaf Diabetes HTN (hypertension) Hyperlipidemia Stroke Vision problem Home Medications aspirin 325 mg tablet 325 mg PO DAILY [facility] 01/04/20 [History Last Taken 09/15/22] dorzolamide-timolol (PF) 2 %-0.5 % eye drops in a dropperette 1 drp ophthalmic (eye) BID eyes 01/04/20 [History Last Taken Unknown] latanoprost 0.005 % eye drops 1 drp ophthalmic (eye) DAILY eyes 01/04/20 [History Last Taken Unknown] pen needle, diabetic 31 gauge x 5/16 (Comfort EZ Pen [place]) #1,200 ea 01/04/20 [History Last Taken Unknown] blood sugar diagnostic (Accu-Chek Guide test strips) #100 ea 03/07/20 [Rx Last Taken Unknown] simvastatin 80 mg tablet 80 mg PO QHS #30 tabs 07/04/21 [Rx Last Taken Unknown] losartan 50 mg tablet 50 mg PO BID #180 tabs 05/11/22 [Rx Last Taken Unknown] insulin aspart U-100 100 unit/mL (3 mL) subcutaneous pen (Novolog Flexpen U-100 Insulin aspart) See Rx Instructions subcut TID #30 mL 07/02/22 [Rx Last Taken Unknown] amlodipine 5 mg tablet 5 mg PO DAILY BP 09/14/22 [History Last Taken 09/15/22] omeprazole 20 mg capsule,delayed release 20 mg PO DAILY stomach 09/14/22 [History Last Taken Unknown] insulin degludec 200 unit/mL (3 mL) subcutaneous pen (Tresiba FlexTouch U-200 insulin) 25 unit subcut DAILY diabetes 09/16/22 [History Last Taken 09/15/22] Allergy/AdvReac Type Severity Reaction Status Date / Time No Known Allergies Allergy Verified 09/15/22 10:39 Family History Mother Diabetes Deaf Surgical History unable to obtain Social History Smoking Status: Never smoker alcohol intake: never substance use type: does not use what type of physical activity do you participate in: none ROS ROS Narrative negative except above Physical Exam Narrative Alert awake oriented x 3 no obvious distress no pallor no icterus no JVD s1s2 no murmurs lungs clear abdomen soft no organomegaly no edema no cyanosis Lab / Micro Data Result Diagrams: 09/16/22 06:36 09/16/22 06:36 Labs: Laboratory Results - last 24 hr 09/16/22 06:36: WBC 11.0, RBC 3.40 L, Hgb 10.2 L, Hct 31.3 L, MCV 92.1, MCH 30.0, MCHC 32.6, RDW Std Deviation 41.0, RDW Coeff of Jenifer 12.2, Plt Count 355, MPV 12.0, Immature Gran % (Auto) 0.400, Neut % (Auto) 82.3 H, Lymph % (Auto) 8.1 L, [place] % (Auto) 7.7, Eos % (Auto) 0.6, Baso % (Auto) 0.9, Absolute Neuts (auto) 9.0 H, Absolute Lymphs (auto) 0.89, Nucleated RBC % 0 09/16/22 06:36: PT 13.4, INR 1.1, APTT 33.3 09/16/22 06:36: Sodium 138, Potassium 4.6, Chloride 111 H, Carbon Dioxide 17.0 L, Anion Gap 10, BUN 92 H, Creatinine 8.76 H*, Estim Creat Clear Calc 9.49, Est GFR (MDRD) Af Amer 8 L, Est GFR (MDRD) Non-Af 7 L, BUN/Creatinine Ratio 10.5, Glucose 460 H*, Calcium 8.3 L, Magnesium 2.4, Troponin I High Sens 1211 H* 09/16/22 06:36: B-Natriuretic Peptide 1085.0 H 09/16/22 09:15: Troponin I High Sens 2012 H* 09/16/22 10:46: POC Glucose 398 H 09/16/22 12:20: Troponin I High Sens 2864 H* 09/16/22 12:55: POC Glucose 240 H Micro: Microbiology 09/16/22 07:05 Nasal Secretion SARS-CoV-2 & FLU Antigen (Rapid) - Final Radiology Impression Chest X-Ray 09/16/22 07:35 IMPRESSION: Findings indicative of CHF with superimposed bibasilar atelectasis worse at the right lung base. Electronically Signed: Eleazar Farrar MD at 8:36 EST , Renal Ultrasound 09/16/22 09:02 IMPRESSION: Increased bilateral renal cortical echotexture. This may represent medical renal disease. Electronically Signed: Eleazar Farrar MD at 12:25 EST ,
[2022-09-16 16:14] LABS: Partial Thromboplast Time 86.1 Seconds (24.1-36.2)
[2022-09-16] MEDS: [UNRECOGNIZED DRUG - OTHER] IV (16:22)
[2022-09-16] MEDS: SODIUM BICARBONATE IV (16:22)
[2022-09-16 16:45] LABS: Allen Test Positive; Base Excess -10 mmol/L (-2 to +2); Bicarbonate 14.4 mmol/L (22-26); Blood Gas Specimen Type ART; FI02 40; Mode BiLevel; O2 Delivery Device BiPAP; PEEP 8; PO2 186 mmHG (75-100); PS 14; RR 12; SITE R Radial; SO2 100 % (95-99); Total Carbon Dioxide 15 mmol/L; pH 7.41 (7.35-7.45)
[2022-09-16] MEDS: Insulin Lispro 100 UNIT/ML INSULN.PEN 30 UNIT SC (16:50)
[2022-09-16 17:31] LABS: Bedside Glucose 123 mg/dL (74-106)
--- NOTE | 2022-09-16 23:15 | NURSING ---
pt blood glucose of 19, no hypoglycemia protocol. pt was awake, confused, and was able to drink some juice for us which brought pt glucose to 74. MD notified and ordered hypoglycemia protocol, glargine and scheduled Humalog dc'd. Given 25gm of d50 IV, and repeat blood glucose was 193. pt mental status back to baseline and was able to communicate through writing again, sign language, hand gestures, and with simple words such as yes, or no.
--- NOTE | 2022-09-16 23:17 | PCM.PN.BLA ---
Progress Note Blood glucose of 19. Discontinue basal and prandial insulin. Hypoglycemia orders placed.
[2022-09-16] MEDS: Dextrose 50%-Water 25 GM/50 ML DISP.SYRIN IV (23:21)
[2022-09-16 23:28] LABS: Partial Thromboplast Time 47.8 Seconds (24.1-36.2)
[2022-09-16] MEDS: Acetaminophen 500 MG Tablet 1000 MG PO (23:52)
[2022-09-16] MEDS: Atorvastatin Calcium 40 MG Tablet PO (23:52)
[2022-09-16] MEDS: Latanoprost 0.005% 1 Bottle 1 DRP OPHTHALMIC (23:53)
[2022-09-17] VITALS (28 sets, daily range): BP systolic 114–189; BP diastolic 63–100; PULSE 26–96; RESP 12–25; TEMP 36.2–36.6; O2SAT 87–100
[2022-09-17 00:55] LABS: Bedside Glucose 193 mg/dL (74-106)
--- NOTE | 2022-09-17 01:12 | CPS ---
patient was 89% on ,40 via bipap. patient increased to .50.
[2022-09-17 06:12] LABS: Absolute Lymphocyte Count 0.63 X10^3/uL (0.83-4.51); Absolute Neutrophil Count 8.6 X10^3/uL (2.0-7.7); Basophil# 0.02 X10^3/uL; Basophil% 0.2 % (0-1); Eosinophil# 0.01 X10^3/uL; Eosinophils% 0.1 % (0-5); Hematocrit 26.2 % (40-54); Hemoglobin 8.6 g/dL (13.0-16.5); Lymphocyte # 0.63 X10^3/ul (0.83-4.51); Lymphocyte % 6.3 % (19-41); Mean Corp Hgb Conc 32.8 g/dL (32-36); Mean Corpuscular Hgb 29.6 pg (27.0-32.0); Mean Platelet Vol. 11.6 fl (6.2-12.0); Monocyte# 0.63 X10^3/uL; Monocyte% 6.3 % (0-10); NRBC Flagged by Analyzer 0 % (0-5); Neutrophil # 8.59 X10^3/uL (2.7-7.7); Neutrophil % 86.6 % (47-70); Platelet Count 272 K/mm3 (150-450); RBC Distribution Width CV 12.4 % (11.6-14.6); RBC Distribution Width SD 40.6 fl (35.1-43.9); Red Blood Count 2.91 M/mm3 (4.6-6.2); White Blood Count 9.9 K/mm3 (4.4-11.0)
[2022-09-17] MEDS: Acetaminophen 500 MG Tablet 1000 MG PO ×3 (06:23→21:45)
[2022-09-17 06:31] LABS: Partial Thromboplast Time 62.9 Seconds (24.1-36.2)
[2022-09-17] MEDS: SODIUM BICARBONATE IV ×3 (06:31→15:07)
[2022-09-17] MEDS: [UNRECOGNIZED DRUG - OTHER] IV ×3 (06:31→15:07)
[2022-09-17 07:01] LABS: ALB/GLOB Ratio 0.6 RATIO (0.9-2.4); AST(SGOT) 21 U/L (15-37); Alanine Aminotransfer ALT/SGPT 19 U/L (16-61); Albumin, Serum 2.2 g/dL (3.2-5.0); Alkaline Phosphatase 48 U/L (45-117); Anion Gap 10 (5-15); BUN 94 mg/dL (7-18); BUN/Creat Ratio 11.6 RATIO (10-20); Bilirubin, Direct 0.08 mg/dL (0.00-0.30); Calcium,Total 7.7 mg/dL (8.5-10.1); Chloride 108 mmol/L (98-107); EST Glomerular Filtration Rate 7 mL/min (>60); Est Glom Filt Rate - Afr Amer 9 mL/min (>60); Estimated Creatinine Clearance 10.26 ml/min; Globulin 3.7 g/dL (2.2-4.2); Glucose 138 mg/dL (74-106); Potassium 4.4 mmol/L (3.5-5.1); Protein, Total 5.9 g/dL (6.4-8.2); Sodium Level 136 mmol/L (136-145); Thyroid Stim Hormone (TSH) 2.58 uIU/mL (0.358-3.74)
[2022-09-17 07:10] LABS: Bedside Glucose 120 mg/dL (74-106)
--- NOTE | 2022-09-17 07:33 | PN.CARD_ITS ---
Subjective Subjective Patient seen and evaluated. Appears to be stable at this time. Sitting in bed. Objective Data Vital Signs: Vital Signs Temp Pulse Resp BP Pulse Ox O2 Del Method O2 Flow Rate 97.1 F L 26 L 22 H 144/81 H 94 Nasal Cannula 2 09/17/22 03:41 09/17/22 03:48 09/17/22 03:41 09/17/22 03:41 09/17/22 03:48 09/17/22 03:48 09/17/22 03:48 FiO2 50 09/17/22 03:24 Oxygen Flow Rate (L/min) 2 Oxygen Delivery Method Nasal Cannula Weight: 179 lb 10.828 oz Body Mass Index (BMI) 25.5 Intake & Output: Intake and Output for Last 24 Hours 09/15/22 09/16/22 09/17/22 23:59 23:59 23:59 Intake Total 2974.5 / 3274.5 1342.9 / 1342.9 Output Total 250 / 250 100 / 100 Balance 2724.5 / 3024.5 1242.9 / 1242.9 Lab / Micro Data Result Diagrams: 09/17/22 05:59 09/17/22 05:59 Labs: Laboratory Results - last 24 hr 09/16/22 06:36: B-Natriuretic Peptide 1085.0 H 09/16/22 09:15: Troponin I High Sens 2012 H* 09/16/22 10:46: POC Glucose 398 H 09/16/22 12:20: Troponin I High Sens 2864 H* 09/16/22 12:55: POC Glucose 240 H 09/16/22 15:40: APTT 86.1 H 09/16/22 16:48: POC Glucose 123 H 09/16/22 22:45: APTT 47.8 H 09/17/22 00:03: POC Glucose 193 H 09/17/22 05:59: WBC 9.9, RBC 2.91 L, Hgb 8.6 L, Hct 26.2 L, MCV 90.0, MCH 29.6, MCHC 32.8, RDW Std Deviation 40.6, RDW Coeff of Jenifer 12.4, Plt Count 272, MPV 11.6, Immature Gran % (Auto) 0.500, Neut % (Auto) 86.6 H, Lymph % (Auto) 6.3 L, [place] % (Auto) 6.3, Eos % (Auto) 0.1, Baso % (Auto) 0.2, Absolute Neuts (auto) 8.6 H, Absolute Lymphs (auto) 0.63 L, Nucleated RBC % 0 09/17/22 05:59: Sodium 136, Potassium 4.4, Chloride 108 H, Carbon Dioxide 18.0 L , Anion Gap 10, BUN 94 H, Creatinine 8.10 H*, Estim Creat Clear Calc 10.26, Est GFR (MDRD) Af Amer 9 L, Est GFR (MDRD) Non-Af 7 L, BUN/Creatinine Ratio 11.6, Glucose 138 H, Calcium 7.7 L, Total Bilirubin 0.30, Direct Bilirubin 0.08, AST 21, ALT 19, Alkaline Phosphatase 48, Total Protein 5.9 L, Albumin 2.2 L, Globulin 3.7, Albumin/Globulin Ratio 0.6 L, TSH 2.58 09/17/22 05:59: APTT 62.9 H 09/17/22 06:29: POC Glucose 120 H Micro: Microbiology 09/16/22 07:05 Nasal Secretion SARS-CoV-2 & FLU Antigen (Rapid) - Final ABG Data ABG results: ABG 09/16/22 16:40 Specimen Type ART Sample Site R Radial pH 7.41 Bicarbonate Actual 14.4 L Total CO2 15 Base Excess -10 L O2 Saturation 100 H O2 % 40 ABG pCO2 23.0 L ABG pO2 186 H Kev Test Positive Respiration Rate 12 O2 Delivery Device BiPAP Vent Mode BiLevel POC PEEP 8 POC Pressure Suppt 14 Cardiology Labs/Tests 09/16/22 06:36: B-Natriuretic Peptide 1085.0 H 09/16/22 15:40: APTT 86.1 H 09/16/22 16:40: pH 7.41, Bicarbonate Actual 14.4 L, Base Excess -10 L, O2 Saturation 100 H, ABG pCO2 23.0 L, ABG pO2 186 H, Kev Test Positive 09/16/22 22:45: APTT 47.8 H 09/17/22 05:59: WBC 9.9, RBC 2.91 L, Hgb 8.6 L, Hct 26.2 L, MCV 90.0, MCH 29.6, MCHC 32.8, Plt Count 272, MPV 11.6, Immature Gran % (Auto) 0.500, Neut % (Auto) 86.6 H, Lymph % (Auto) 6.3 L, [place] % (Auto) 6.3, Eos % (Auto) 0.1, Baso % (Auto) 0.2, Absolute Neuts (auto) 8.6 H, Nucleated RBC % 0 09/17/22 05:59: Sodium 136, Potassium 4.4, Chloride 108 H, Carbon Dioxide 18.0 L , Anion Gap 10, BUN 94 H, Creatinine 8.10 H*, Est GFR (MDRD) Af Amer 9 L, Est GFR (MDRD) Non-Af 7 L, BUN/Creatinine Ratio 11.6, Glucose 138 H, Calcium 7.7 L, Total Bilirubin 0.30, Direct Bilirubin 0.08 09/17/22 05:59: APTT 62.9 H Rhythm: EKG: ECHO: Stress Test: Cardiac Cath: PCI: CT Surgery: Holter monitor: EPS: PPM: CXR: Chest CT Scan: Radiography Diagnostic Testing: Radiology Impression Chest X-Ray 09/16/22 07:35 IMPRESSION: Findings indicative of CHF with superimposed bibasilar atelectasis worse at the right lung base. Electronically Signed: Eleazar Farrar MD at 8:36 EST , Renal Ultrasound 09/16/22 09:02 IMPRESSION: Increased bilateral renal cortical echotexture. This may represent medical renal disease. Electronically Signed: Eleazar Farrar MD at 12:25 EST , Physical Exam Const alert, oriented x3 and no apparent distress General Appearance: cooperative HEENT hearing grossly normal bilaterally Head and Scalp: atraumatic Eyes EOMs intact bilaterally Neck General: normal visual inspection Chest inspection of chest normal and palpation of chest normal Resp normal respiratory effort Auscultation: crackles Cardio regular rate, regular rhythm, S1 normal heart sound and S2 normal heart sound Jugular Venous Distention: JVD GI normal to inspection, nondistended, normoactive bowel sounds Extremity normal capillary refill and no pedal edema Peripheral Pulses: Yes pulses 2+ throughout and femoral pulses present Skin no rashes or lesions noted Neuro oriented x3 and CN's II-XII intact bilaterally Psych Appearance: grossly normal and appropriate Assessment & Plan Assessment/Plan (1) Non-ST elevated myocardial infarction (non-STEMI): PLAN: Patient presents with a non-ST elevation myocardial infarction. With his risk factors of hypertension as well as diabetes mellitus it is likely that he has premature coronary artery disease. At this point in time it is paramount that his renal function be evaluated before any cardiac catheterization is performed. * Would recommend continuation of baby aspirin * Intravenous heparin * Start beta-gwyn * Obtain echocardiogram to assess ventricular function.. Still pending * Depending on these findings further recommendations will be made (2) Hypertensive emergency: PLAN: Aggressive treatment of his blood pressure should be instituted initially with amlodipine Recommend addition of the beta-gwyn As needed hydralazine Thank you for allowing me to participate in the care of your patient. Please don't hesitate to call if any issues arise.
[2022-09-17 07:45] LABS: Bedside Glucose 74 mg/dL (74-106)
[2022-09-17 07:45] LABS: Bedside Glucose 19 mg/dL (74-106)
--- NOTE | 2022-09-17 08:08 | PN.HOSP_ITS ---
Subjective Subjective Patient has since been taken off BiPAP and tolerating using 2 L nasal cannula. Patient was communicated with through written text through my phone and then he had the opportunity to write out his questions. He denies any current complaints. Objective Data Objective Data Vital Signs: Vital Signs Temp Pulse Resp BP Pulse Ox O2 Del Method O2 Flow Rate 36.2 C L 26 L 22 H 144/81 H 94 Nasal Cannula 2 09/17/22 03:41 09/17/22 03:48 09/17/22 03:41 09/17/22 03:41 09/17/22 03:48 09/17/22 03:48 09/17/22 03:48 FiO2 50 09/17/22 03:24 Oxygen Flow Rate (L/min) 2 Oxygen Delivery Method Nasal Cannula Weight: 81.5 kg Body Mass Index (BMI) 25.5 Intake & Output: Intake and Output for Last 24 Hours 09/15/22 09/16/22 09/17/22 23:59 23:59 23:59 Intake Total 2974.5 / 3274.5 1342.9 / 1342.9 Output Total 250 / 250 100 / 100 Balance 2724.5 / 3024.5 1242.9 / 1242.9 Lab / Micro Data Result Diagrams: 09/17/22 05:59 09/17/22 05:59 Labs: Laboratory Results - last 24 hr 09/16/22 09:15: Troponin I High Sens 2012 H* 09/16/22 10:46: POC Glucose 398 H 09/16/22 12:20: Troponin I High Sens 2864 H* 09/16/22 12:55: POC Glucose 240 H 09/16/22 15:40: APTT 86.1 H 09/16/22 16:48: POC Glucose 123 H 09/16/22 22:45: APTT 47.8 H 09/16/22 23:05: POC Glucose 19 L* 09/16/22 23:20: POC Glucose 74 09/17/22 00:03: POC Glucose 193 H 09/17/22 05:59: WBC 9.9, RBC 2.91 L, Hgb 8.6 L, Hct 26.2 L, MCV 90.0, MCH 29.6, MCHC 32.8, RDW Std Deviation 40.6, RDW Coeff of Jenifer 12.4, Plt Count 272, MPV 11.6, Immature Gran % (Auto) 0.500, Neut % (Auto) 86.6 H, Lymph % (Auto) 6.3 L, [place] % (Auto) 6.3, Eos % (Auto) 0.1, Baso % (Auto) 0.2, Absolute Neuts (auto) 8.6 H, Absolute Lymphs (auto) 0.63 L, Nucleated RBC % 0 09/17/22 05:59: Sodium 136, Potassium 4.4, Chloride 108 H, Carbon Dioxide 18.0 L , Anion Gap 10, BUN 94 H, Creatinine 8.10 H*, Estim Creat Clear Calc 10.26, Est GFR (MDRD) Af Amer 9 L, Est GFR (MDRD) Non-Af 7 L, BUN/Creatinine Ratio 11.6, Glucose 138 H, Calcium 7.7 L, Total Bilirubin 0.30, Direct Bilirubin 0.08, AST 21, ALT 19, Alkaline Phosphatase 48, Total Protein 5.9 L, Albumin 2.2 L, Globulin 3.7, Albumin/Globulin Ratio 0.6 L, TSH 2.58 09/17/22 05:59: APTT 62.9 H 09/17/22 06:29: POC Glucose 120 H Micro: Microbiology 09/16/22 07:05 Nasal Secretion SARS-CoV-2 & FLU Antigen (Rapid) - Final ABG Data ABG results: ABG 09/16/22 16:40 Specimen Type ART Sample Site R Radial pH 7.41 Bicarbonate Actual 14.4 L Total CO2 15 Base Excess -10 L O2 Saturation 100 H O2 % 40 ABG pCO2 23.0 L ABG pO2 186 H Kev Test Positive Respiration Rate 12 O2 Delivery Device BiPAP Vent Mode BiLevel POC PEEP 8 POC Pressure Suppt 14 Radiography Diagnostic Testing: Radiology Impression Chest X-Ray 09/16/22 07:35 IMPRESSION: Findings indicative of CHF with superimposed bibasilar atelectasis worse at the right lung base. Electronically Signed: Eleazar Farrar MD at 8:36 EST , Renal Ultrasound 09/16/22 09:02 IMPRESSION: Increased bilateral renal cortical echotexture. This may represent medical renal disease. Electronically Signed: Eleazar Farrar MD at 12:25 EST , Physical Exam Const alert and no apparent distress Constitutional Narrative: A present bed. No respiratory distress. No conversational dyspnea. HEENT head/scalp atraumatic Resp normal respiratory effort, no retractions, no use of accessory muscles and clear to auscultation bilaterally Cardio regular rate, regular rhythm, S1 normal heart sound and S2 normal heart sound GI normal to inspection, nondistended, normoactive bowel sounds, soft to palpation and non-tender Extremity normal to inspection Assessment & Plan Assessment/Plan (1) Non-ST elevated myocardial infarction (non-STEMI): PLAN: Troponins were 1211. Patient did have some ST depressions in the inferior leads. Raynaud's troponins may be skewed upwards due to his acute kidney injury but he is having ongoing chest pain. Unclear if this chest pain is actually cardiac or musculoskeletal as patient is a poor historian even with medical interpreter. Echocardiogram unable to be completed as patient was unable to lie flat yesterday. Will reattempt today. Plan: * Patient will be put on a heparin drip. Patient did receive aspirin in the emergency room and will continue. * Check an echocardiogram * Consult cardiology * Given his kidney function there is no current plans for cardiac catheterization until his kidney function is improved or stabilized if that would be necessary. * Will start metoprolol tartrate. (2) Acute renal failure: PLAN: Through [facility] I was able to see patient had a BMP on February 19, 2021 and his creatinine at that time was 1.66. I do not see any additional BMPs in the interim. Unclear if this is been just a chronic progression since then or this is been an acute worsening Renal ultrasound showed some medical renal disease Plan: * Hold losartan * will check urine studies (UA, UCx, Carmen, UCr) * Check renal ultrasound * IV fluids. Patient with metabolic acidosis due to his kidney disease and patient be placed on a bicarb drip * Consult nephrology * No no acute plans for renal replacement therapy at this point. 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 Blood sugars elevated but patient is not currently in DKA Continue with basal insulin to 25 units daily and his prandial insulin is at 38 but I will change it over 30 but also have a sliding scale insulin. Last A1c from September 14 was 7 Patient did have hypoglycemic down to 19 yesterday. Glargine was discontinued. We will need to reintroduce but hold off on the high-dose prandial insulin the patient was receiving. (5) Congenital deafness: PLAN: Cannot read some simple instructions or sentences but he cannot read lips. Patient understands basic written communication and sign language but does not read lips (6) Acute respiratory failure with hypoxia: PLAN: Improved did require going on a BiPAP yesterday but now improved down to 2 L nasal cannula ABG performed later showed a respiratory alkalosis. This is likely due to compensation for the metabolic acidosis. Does have a component of CHF (7) Metabolic acidosis: PLAN: Present on admission Secondary to acute kidney injury Improved but, dioxide still 18 On a bicarbonate drip PLAN: Plan VTE prophylaxis: Not indicated as patient will be anticoagulated. Did discuss with the patient's stepson and as well as his mother. The stepson translated through sign language to the mother. I communicated with the patient through written text using the phone so that he could read that. He would then write out questions concerns with me and I pad of paper. Charges/Coding Visit Charges Inpatient E&M: 48915 Subs Hosp L3
--- NOTE | 2022-09-17 10:05 | CASEMGMT ---
ISABEL CAMARA assessment: Initial transition planning/care coordination assessment completed with pt's benjamin as pt is deaf. ISABEL CAMARA introduced self and role at [facility], benjamin voices understanding and consents to assessment. Care providers, pharmacy,?and demographics verified/updated. ? Presentation: Pt family pt coughing all night, labored breathing/SOB/wheezing. chest discomfort Admitting dx: TREVOR, NSTEMI PCP: Todd Specialists: None Preferred Pharmacy: [facility] Insurance: [facility] Prescription Benefit:? HumR Living Will/HPOA: Pt does not have LW/HPOA. LNOK: Benkellee Rapp benjamin Living Arrangements: Pt lives with his benjamin and benjamin's girlfriend in 1 story home with 1 step in and states no concerns at home. Pt is independent with ADL's. Transportation: Pt drives self or family drives and states no transportation concerns. DME/HHC: [facility] states no current DME or need for any DME. Pt has no hx of HHC or SNF. Pt/stepson state no concerns with going home at time of discharge. Pt is on disability. Pt states does not smoke cigarettes but does occasionally drink ETOH. Eneidaon voices no further concerns/needs. CM to follow for therapy, home oxygen need, possible dialysis and any further discharge planning/needs. Advised stepsons to ask for CM if any further questions/concerns/needs arise, voices understanding. Pt Goal: Home ? Plan: Home, pending clinical course Behzad HALL CM
--- NOTE | 2022-09-17 10:05 | CASEMGMT ---
ISABEL CAMARA assessment: Initial transition planning/care coordination assessment completed with pt's benjamin as pt is deaf. ISABEL CAMARA introduced self and role at [facility], benjamin voices understanding and consents to assessment. Care providers, pharmacy,?and demographics verified/updated. ? Presentation: Pt family pt coughing all night, labored breathing/SOB/wheezing. chest discomfort Admitting dx: TREVOR, NSTEMI PCP: Todd Specialists: None Preferred Pharmacy: [facility] Insurance: [facility] Prescription Benefit:? HumR Living Will/HPOA: Pt does not have LW/HPOA. LNOK: benjamin Ty Living Arrangements: Pt lives with his sig other and stepson in 1 story home with 1 step in and states no concerns at home. Pt is independent with ADL's. Transportation: Pt drives self or family drives and states no transportation concerns. DME/HHC: [facility] states no current DME or need for any DME. Pt has no hx of HHC or SNF. Pt/stepson state no concerns with going home at time of discharge. Pt is on disability. Pt states does not smoke cigarettes but does occasionally drink ETOH. [facility] voices no further concerns/needs. CM to follow for therapy, home oxygen need, possible dialysis and any further discharge planning/needs. Advised stepsons to ask for CM if any further questions/concerns/needs arise, voices understanding. Pt Goal: Home ? Plan: Home, pending clinical course Behzad HALL CM
[2022-09-17] MEDS: Aspirin 325 MG Tablet PO (11:32)
[2022-09-17] MEDS: Metoprolol Tartrate 50 MG Tablet PO ×2 (11:32→21:44)
[2022-09-17] MEDS: Dorzolamide HCL/Timolol 10 ml Bottle 1 DRP OPHTHALMIC ×2 (11:32→21:45)
[2022-09-17] MEDS: amLODIPine 5 MG Tablet PO (11:33)
[2022-09-17] MEDS: Pantoprazole Sodium 20 MG Tablet PO (11:33)
[2022-09-17] MEDS: HEPARIN/D5w 25,000 UNITS 25,000 UNITS/250 ML IV.SOLN. 10 UNITS CONT INF (11:40)
[2022-09-17] MEDS: Insulin Lispro 100 UNIT/ML INSULN.PEN SC ×2 (11:44→17:36)
[2022-09-17] MEDS: FLU VACC QS2022-23(6MOS UP)/PF 60 MCG/0.5 ML SYRINGE IM (11:49)
--- NOTE | 2022-09-17 11:49 | PN.RENAL_ITS ---
Subjective Subjective Following for TREVOR Patient sitting on edge of bed. No overnight events. No family at bedside. Communicated with patient via writing tablet. He denies any nausea, vomiting or diarrhea. Objective Data Objective Data Vital Signs: Vital Signs Temp Pulse Resp BP Pulse Ox O2 Del Method O2 Flow Rate 97.9 F 89 22 H 173/85 H 98 Nasal Cannula 5 09/17/22 11:05 09/17/22 11:05 09/17/22 11:05 09/17/22 11:05 09/17/22 11:05 09/17/22 11:05 09/17/22 11:05 FiO2 50 09/17/22 09:00 Oxygen Flow Rate (L/min) 5 Oxygen Delivery Method Nasal Cannula Weight: 81.5 kg Body Mass Index (BMI) 25.5 Intake & Output: Intake and Output for Last 24 Hours 09/15/22 09/16/22 09/17/22 23:59 23:59 23:59 Intake Total 2974.5 / 3274.5 1342.9 / 1342.9 Output Total 250 / 250 100 / 100 Balance 2724.5 / 3024.5 1242.9 / 1242.9 Lab / Micro Data Result Diagrams: 09/17/22 05:59 09/17/22 05:59 Labs: Laboratory Results - last 24 hr 09/16/22 12:20: Troponin I High Sens 2864 H* 09/16/22 12:55: POC Glucose 240 H 09/16/22 15:40: APTT 86.1 H 09/16/22 16:48: POC Glucose 123 H 09/16/22 22:45: APTT 47.8 H 09/16/22 23:05: POC Glucose 19 L* 09/16/22 23:20: POC Glucose 74 09/17/22 00:03: POC Glucose 193 H 09/17/22 05:59: WBC 9.9, RBC 2.91 L, Hgb 8.6 L, Hct 26.2 L, MCV 90.0, MCH 29.6, MCHC 32.8, RDW Std Deviation 40.6, RDW Coeff of Jenifer 12.4, Plt Count 272, MPV 11.6, Immature Gran % (Auto) 0.500, Neut % (Auto) 86.6 H, Lymph % (Auto) 6.3 L, [place] % (Auto) 6.3, Eos % (Auto) 0.1, Baso % (Auto) 0.2, Absolute Neuts (auto) 8.6 H, Absolute Lymphs (auto) 0.63 L, Nucleated RBC % 0 09/17/22 05:59: Sodium 136, Potassium 4.4, Chloride 108 H, Carbon Dioxide 18.0 L , Anion Gap 10, BUN 94 H, Creatinine 8.10 H*, Estim Creat Clear Calc 10.26, Est GFR (MDRD) Af Amer 9 L, Est GFR (MDRD) Non-Af 7 L, BUN/Creatinine Ratio 11.6, Glucose 138 H, Calcium 7.7 L, Total Bilirubin 0.30, Direct Bilirubin 0.08, AST 21, ALT 19, Alkaline Phosphatase 48, Total Protein 5.9 L, Albumin 2.2 L, Globulin 3.7, Albumin/Globulin Ratio 0.6 L, TSH 2.58 09/17/22 05:59: APTT 62.9 H 09/17/22 06:29: POC Glucose 120 H Micro: Microbiology 09/16/22 07:05 Nasal Secretion SARS-CoV-2 & FLU Antigen (Rapid) - Final ABG Data ABG results: ABG 09/16/22 16:40 Specimen Type ART Sample Site R Radial pH 7.41 Bicarbonate Actual 14.4 L Total CO2 15 Base Excess -10 L O2 Saturation 100 H O2 % 40 ABG pCO2 23.0 L ABG pO2 186 H Kev Test Positive Respiration Rate 12 O2 Delivery Device BiPAP Vent Mode BiLevel POC PEEP 8 POC Pressure Suppt 14 Radiography Diagnostic Testing: Radiology Impression Renal Ultrasound 09/16/22 09:02 IMPRESSION: Increased bilateral renal cortical echotexture. This may represent medical renal disease. Electronically Signed: Eleazar Farrar MD at 12:25 EST , Physical Exam Narrative Alert, awake, oriented x 3 no obvious distress no JVD s1s2 no murmurs lungs clear anteriorly and posteriorly, no wheezes, rhonchi or rales noted abdomen soft, no organomegaly no pitting edema Assessment & Plan Assessment/Plan (1) Acute renal failure: PLAN: - Nonoliguric TREVOR with unclear cause at this time; creatinine 8.76 mg/dL on 09/16, today creatinine 8.10 mg/dL. Patient is not hypervolemic, no hyperkalemia. CO2 18 on bicarb drip. No significant uremic symptoms. 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 Renal ultrasound did not show any hydronephrosis, increased bilateral renal cortical echotexture, may represent medical renal disease. UA, urine protein creatinine ordered and should be done today, serologies ordered. We will follow urines and serology results as patient may need kidney biopsy, at this time unclear reason for TREVOR. Per nursing staff, patient's stepson was here earlier and updated regarding possible need for dialysis. Through written communication with myself and patient today patient seems to understand that he may need dialysis should renal function not improve and he seems to be in agreement with that. Continue with IV fluids as ordered, decrease rate -Chronic kidney disease stage III, patient had creatinine of 1.66 mg/dL February 19, 2021, SCr 1.3 04/2014. Baseline creatinine since February 2021 to present is unknown. Likely patient has diabetic kidney disease with history of uncontrolled diabetes. - Uncontrolled diabetes, hemoglobin A1c 11.8% in 2019, May 2022 hemoglobin A1c 8.5%. Follows with endocrine. - Non-ST elevated SC. Cardiology on consult. On heparin drip. Losartan on hold. Echo pending - Blood pressures acceptable on amlodipine, Lopressor - labs ordered for tomorrow
[2022-09-17 12:40] LABS: Partial Thromboplast Time 57.7 Seconds (24.1-36.2)
[2022-09-17] MEDS: Insulin Glargine-YFGN 100 UNIT/ML Pen 20 UNIT SC (13:24)
[2022-09-17 14:45] LABS: Bedside Glucose 298 mg/dL (74-106)
[2022-09-17 15:50] LABS: Bacteria 0 SEEN /hpf (None Seen); Mucous, Urine 0 SEEN /hpf (<or=2+); Squamous Epithelial Cells - UA 0 SEEN /hpf (0-5); White Blood Cells 0 SEEN /hpf (0-5)
[2022-09-17 16:01] LABS: Color, Urine Yellow (Yellow); Glucose, Dipstick 1000 mg/dl (Normal); Ketone-Dipstick Negative (Negative); Leukocyte Esterase-Dipstick Negative /ul (Negative); Nitrite-Dipstick Negative (Negative); Occult Blood-Urine 25 /ul (Negative); Protein-Dipstick 500 mg/dl (Negative); Specific Gravity, Urine 1.015 (1.002-1.030); Urine Bilirubin Dipstick Negative (Negative); Urine Clarity Clear (Clear); Urine Urobilinogen Normal (Normal)
[2022-09-17 16:07] LABS: Red Blood Cells-Urine 0-5 SEEN /hpf (0-5)
[2022-09-17 16:08] LABS: Urine Sodium 40 mmol/L (Not Establ.)
[2022-09-17 18:31] LABS: Bedside Glucose 315 mg/dL (74-106)
[2022-09-17 20:53] LABS: Protein, Urine (Random) 512.7 mg/dL (<11.9); Protein:Creat Ratio 7573 mg/g CRE (0-200)
[2022-09-17] MEDS: Ondansetron 4 MG/2 ML Vial IV (21:39)
[2022-09-17] MEDS: 0.9% Saline Lock 10 ML Syringe IV (21:40)
[2022-09-17] MEDS: Latanoprost 0.005% 1 Bottle 1 DRP OPHTHALMIC (21:45)
[2022-09-17] MEDS: Atorvastatin Calcium 40 MG Tablet PO (21:45)
[2022-09-17 23:35] LABS: Bedside Glucose 217 mg/dL (74-106)
[2022-09-18] VITALS (22 sets, daily range): BP systolic 142–165; BP diastolic 75–97; PULSE 67–90; RESP 12–30; TEMP 36.3–36.6; O2SAT 83–100
[2022-09-18] MEDS: [UNRECOGNIZED DRUG - OTHER] IV (01:12)
[2022-09-18] MEDS: SODIUM BICARBONATE IV (01:12)
[2022-09-18] MEDS: Acetaminophen 500 MG Tablet 1000 MG PO ×3 (05:06→22:42)
[2022-09-18] MEDS: Albuterol 2.5 MG/3 ML VIAL.NEB. INHALATION ×2 (05:21→19:08)
[2022-09-18 06:03] LABS: Absolute Lymphocyte Count 0.73 X10^3/uL (0.83-4.51); Absolute Neutrophil Count 9.5 X10^3/uL (2.0-7.7); Basophil# 0.04 X10^3/uL; Basophil% 0.4 % (0-1); Eosinophil# 0.06 X10^3/uL; Eosinophils% 0.5 % (0-5); Lymphocyte # 0.73 X10^3/ul (0.83-4.51); Lymphocyte % 6.6 % (19-41); Mean Corp Hgb Conc 33.3 g/dL (32-36); Mean Corpuscular Hgb 30.7 pg (27.0-32.0); Mean Corpuscular Volume 92.2 fL (80-94); Monocyte# 0.75 X10^3/uL; Monocyte% 6.8 % (0-10); NRBC Flagged by Analyzer 0 % (0-5); Neutrophil # 9.47 X10^3/uL (2.7-7.7); Neutrophil % 85.2 % (47-70); Platelet Count 258 K/mm3 (150-450); RBC Distribution Width CV 12.6 % (11.6-14.6); RBC Distribution Width SD 41.8 fl (35.1-43.9); Red Blood Count 2.93 M/mm3 (4.6-6.2); White Blood Count 11.1 K/mm3 (4.4-11.0)
[2022-09-18 06:21] LABS: Partial Thromboplast Time 60.9 Seconds (24.1-36.2)
[2022-09-18 06:34] LABS: Albumin, Serum 2.4 g/dL (3.2-5.0); Anion Gap 11 (5-15); BUN 82 mg/dL (7-18); BUN/Creat Ratio 10.3 RATIO (10-20); Calcium,Total 7.7 mg/dL (8.5-10.1); Chloride 106 mmol/L (98-107); Creatinine, Serum 7.96 mg/dL (0.70-1.30); EST Glomerular Filtration Rate 7 mL/min (>60); Est Glom Filt Rate - Afr Amer 9 mL/min (>60); Estimated Creatinine Clearance 10.44 ml/min; Glucose 155 mg/dL (74-106); Phosphorus 6.8 mg/dL (2.5-4.9); Potassium 4.3 mmol/L (3.5-5.1); Sodium Level 135 mmol/L (136-145)
[2022-09-18 06:56] LABS: Bedside Glucose 139 mg/dL (74-106)
--- NOTE | 2022-09-18 08:35 | PCM.PN.HOSP ---
Subjective Subjective Tells me he feels okay. Conversation is through writing and then typing on my phone and having him read it. Objective Data Objective Data Vital Signs: Vital Signs Temp Pulse Resp BP Pulse Ox O2 Del Method O2 Flow Rate 36.4 C L 77 22 H 142/78 H 93 Nasal Cannula 5 09/18/22 05:08 09/18/22 07:29 09/18/22 07:29 09/18/22 05:08 09/18/22 07:29 09/18/22 08:33 09/18/22 08:33 FiO2 40 09/18/22 07:29 Oxygen Flow Rate (L/min) 5 Oxygen Delivery Method Nasal Cannula Weight: 81.5 kg Body Mass Index (BMI) 25.5 Intake & Output: Intake and Output for Last 24 Hours 09/16/22 09/17/22 09/18/22 23:59 23:59 23:59 Intake Total 2974.5 / 3274.5 3359.57 / 3359.57 1008.33 / 1008.33 Output Total 250 / 250 1350 / 1350 350 / 350 Balance 2724.5 / 3024.5 200957 / 2008.57 658.33 / 658.33 Lab / Micro Data Result Diagrams: 09/18/22 05:55 09/18/22 05:55 Labs: Laboratory Results - last 24 hr 09/17/22 11:43: POC Glucose 298 H 09/17/22 12:03: APTT 57.7 H 09/17/22 15:45: Urine Creatinine 68.50 09/17/22 15:45: Ur Random Sodium 40 09/17/22 15:45: Urine Color Yellow, Urine Clarity Clear, Urine pH 6.0, Ur Specific [place] 1.015, Urine Protein 500 H, Urine Glucose (UA) 1000 H, Urine Ketones Negative, Urine Occult Blood 25 H, Urine Nitrite Negative, Urine Bilirubin Negative, Urine Urobilinogen Normal, Ur Leukocyte Esterase Negative, Urine RBC 0-5 SEEN, Urine WBC 0 SEEN, Ur Squamous Epith Cells 0 SEEN, Urine Bacteria 0 SEEN, Urine Mucus 0 SEEN 09/17/22 15:45: U Random Total Protein 512.7 H, Urine Creatinine 67.70, Protein/Creatinin Ratio 7573 H 09/17/22 17:33: POC Glucose 315 H 09/17/22 21:52: POC Glucose 217 H 09/18/22 05:55: Sodium 135 L, Potassium 4.3, Chloride 106, Carbon Dioxide 18.0 L, Anion Gap 11, BUN 82 H, Creatinine 7.96 H*, Estim Creat Clear Calc 10.44, Est GFR (MDRD) Af Amer 9 L, Est GFR (MDRD) Non-Af 7 L, BUN/Creatinine Ratio 10.3, Glucose 155 H, Calcium 7.7 L, Phosphorus 6.8 H, Albumin 2.4 L 09/18/22 05:55: WBC 11.1 H, RBC 2.93 L, Hgb 9.0 L, Hct 27.0 L, MCV 92.2, MCH 30.7, MCHC 33.3, RDW Std Deviation 41.8, RDW Coeff of Jenifer 12.6, Plt Count 258, MPV 12.0, Immature Gran % (Auto) 0.500, Neut % (Auto) 85.2 H, Lymph % (Auto) 6.6 L, [place] % (Auto) 6.8, Eos % (Auto) 0.5, Baso % (Auto) 0.4, Absolute Neuts (auto) 9.5 H, Absolute Lymphs (auto) 0.73 L, Nucleated RBC % 0 09/18/22 05:55: APTT 60.9 H 09/18/22 06:36: POC Glucose 139 H Micro: Microbiology 09/16/22 07:05 Nasal Secretion SARS-CoV-2 & FLU Antigen (Rapid) - Final Radiography Diagnostic Testing: Radiology Impression Echocardiogram 09/16/22 09:02 Interpretation Summary Normal LV size. The estimated ejection fraction is 35 %. Stage 3 diastolic dysfunction. There is moderate to severe global hypokinesis of the left ventricle. Mild-Moderate (1-2+) eccentric mitral valve insufficiency. Pulmonary artery systolic pressure is 40 mmHg. Ordering Physician: Prabhjot Bliss Referring Physician: Marta Brooks Performed By: Bert Thompson RCS Physical Exam Const alert Constitutional Narrative: No respiratory distress. No conversational dyspnea. On nasal cannula oxygen. Resp normal respiratory effort, no retractions, no use of accessory muscles and clear to auscultation bilaterally Cardio regular rate, regular rhythm, S1 normal heart sound and S2 normal heart sound GI normal to inspection, nondistended, normoactive bowel sounds Extremity Extremity Narrative: Edema lower extremities Assessment & Plan Assessment/Plan (1) Non-ST elevated myocardial infarction (non-STEMI): PLAN: Troponins were 1211. Patient did have some ST depressions in the inferior leads. Raynaud's troponins may be skewed upwards due to his acute kidney injury but he is having ongoing chest pain. 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 Echocardiogram shows an EF of 35% with stage III diastolic dysfunction and moderate to severe global hypokinesis of the left ventricle. Pulmonary artery systolic pressure of 40 mmHg.. Plan: Discontinue heparin drip cardiology following Given his kidney function there is no current plans for cardiac catheterization until his kidney function is improved or stabilized if that would be necessary. Continue metoprolol tartrate. (2) Acute renal failure: PLAN: [facility] see patient had a BMP on February 19, 2021 and his creatinine at that time was 1.66. I do not see any additional BMPs in the interim. Unclear if this is been just a chronic progression since then or this is been an acute worsening Renal ultrasound showed some medical renal disease Fractional excretion of sodium is 3.56% Plan: Hold losartan IV fluids. Patient with metabolic acidosis due to his kidney disease and patient be placed on a bicarb drip nephrology following No no acute plans for renal replacement therapy at this point. Patient to have kidney biopsy on the . 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 Blood sugars elevated but patient is not currently in DKA Continue with basal insulin to 25 units daily and his prandial insulin is at 38 but I will change it over 30 but also have a sliding scale insulin. Last A1c from September 14 was 7 Patient did have hypoglycemic down to 19 yesterday. Glargine was discontinued. We will need to reintroduce but hold off on the high-dose prandial insulin the patient was receiving. (5) Congenital deafness: PLAN: Cannot read some simple instructions or sentences but he cannot read lips. Patient understands basic written communication and sign language but does not read lips (6) Acute respiratory failure with hypoxia: PLAN: Improved did require going on a BiPAP yesterday but now improved down to 2 L nasal cannula ABG performed later showed a respiratory alkalosis. This is likely due to compensation for the metabolic acidosis. Does have a component of CHF (7) Metabolic acidosis: PLAN: Present on admission Secondary to acute kidney injury Improved but, dioxide still 18 On a bicarbonate drip (8) Cardiomyopathy: PLAN: EF of 35% Unclear etiology More definitive cardiac evaluation, including cardiac catheterization on hold pending kidney evaluation Not a candidate for ANIA inhibitors nor angiotensin receptor blockers given acute kidney injury PLAN: Plan VTE prophylaxis: Not indicated as patient will be anticoagulated. Charges/Coding Visit Charges Inpatient E&M: [address] [facility] Hosp L3
--- NOTE | 2022-09-18 10:12 | PN.RENAL_ITS ---
Subjective Subjective Patient is resting in bed. I was able to communicate him with a writing tablet. Patient denies any complaints. No nausea, vomiting, diarrhea. Denies any shortness of breath. Objective Data Objective Data Vital Signs: Vital Signs Temp Pulse Resp BP Pulse Ox O2 Del Method O2 Flow Rate 97.5 F L 77 22 H 142/78 H 93 Nasal Cannula 5 09/18/22 05:08 09/18/22 07:29 09/18/22 07:29 09/18/22 05:08 09/18/22 07:29 09/18/22 08:33 09/18/22 08:33 FiO2 40 09/18/22 07:29 Oxygen Flow Rate (L/min) 5 Oxygen Delivery Method Nasal Cannula Weight: 81.5 kg Body Mass Index (BMI) 25.5 Intake & Output: Intake and Output for Last 24 Hours 09/16/22 09/17/22 09/18/22 23:59 23:59 23:59 Intake Total 2974.5 / 3274.5 3359.57 / 3359.57 1008.33 / 1008.33 Output Total 250 / 250 1350 / 1350 350 / 350 Balance 2724.5 / 3024.5 2009.57 / 2009.57 658.33 / 658.33 Lab / Micro Data Result Diagrams: 09/18/22 05:55 09/18/22 05:55 Labs: Laboratory Results - last 24 hr 09/17/22 11:43: POC Glucose 298 H 09/17/22 12:03: APTT 57.7 H 09/17/22 15:45: Urine Creatinine 68.50 09/17/22 15:45: Ur Random Sodium 40 09/17/22 15:45: Urine Color Yellow, Urine Clarity Clear, Urine pH 6.0, Ur Specific [place] 1.015, Urine Protein 500 H, Urine Glucose (UA) 1000 H, Urine Ketones Negative, Urine Occult Blood 25 H, Urine Nitrite Negative, Urine Bilirubin Negative, Urine Urobilinogen Normal, Ur Leukocyte Esterase Negative, Urine RBC 0-5 SEEN, Urine WBC 0 SEEN, Ur Squamous Epith Cells 0 SEEN, Urine Ba cteria 0 SEEN, Urine Mucus 0 SEEN 09/17/22 15:45: U Random Total Protein 512.7 H, Urine Creatinine 67.70, Protein/Creatinin Ratio 7573 H 09/17/22 17:33: POC Glucose 315 H 09/17/22 21:52: POC Glucose 217 H 09/18/22 05:55: Sodium 135 L, Potassium 4.3, Chloride 106, Carbon Dioxide 18.0 L , Anion Gap 11, BUN 82 H, Creatinine 7.96 H*, Estim Creat Clear Calc 10.44, Est GFR (MDRD) Af Amer 9 L, Est GFR (MDRD) Non-Af 7 L, BUN/Creatinine Ratio 10.3, Glucose 155 H, Calcium 7.7 L, Phosphorus 6.8 H, Albumin 2.4 L 09/18/22 05:55: WBC 11.1 H, RBC 2.93 L, Hgb 9.0 L, Hct 27.0 L, MCV 92.2, MCH 30.7, MCHC 33.3, RDW Std Deviation 41.8, RDW Coeff of Jenifer 12.6, Plt Count 258, MPV 12.0, Immature Gran % (Auto) 0.500, Neut % (Auto) 85.2 H, Lymph % (Auto) 6.6 L, [place] % (Auto) 6.8, Eos % (Auto) 0.5, Baso % (Auto) 0.4, Absolute Neuts (auto) 9.5 H, Absolute Lymphs (auto) 0.73 L, Nucleated RBC % 0 09/18/22 05:55: APTT 60.9 H 09/18/22 06:36: POC Glucose 139 H Micro: Microbiology 09/16/22 07:05 Nasal Secretion SARS-CoV-2 & FLU Antigen (Rapid) - Final Radiography Diagnostic Testing: Radiology Impression Echocardiogram 09/16/22 09:02 Interpretation Summary Normal LV size. The estimated ejection fraction is 35 %. Stage 3 diastolic dysfunction. There is moderate to severe global hypokinesis of the left ventricle. Mild-Moderate (1-2+) eccentric mitral valve insufficiency. Pulmonary artery systolic pressure is 40 mmHg. Ordering Physician: Prabhjot Bliss Referring Physician: Marta Brooks Performed By: Bert Thompson RCS Physical Exam Narrative Alert, awake, oriented x 3 no obvious distress no JVD s1s2 no murmurs lungs clear anteriorly and posteriorly, no wheezes, rhonchi or rales noted abdomen soft, no organomegaly no pitting edema Assessment & Plan Assessment/Plan (1) Acute renal failure: PLAN: - Nonoliguric TREVOR with unclear cause at this time; creatinine 8.76 mg/dL on 09/16, today creatinine 7.96 mg/dL. Patient is not hypervolemic, no hyperkalemia. CO2 18 on bicarb drip. No significant uremic symptoms. No acute indication for [employer] at this time. Renal ultrasound did not show any hydronephrosis, increased bilateral renal cortical echotexture, may represent medical renal disease. UA occult blood 25, negative RBC, protein 500. UPCR 7573mg/g. Serologies ordered/pending. We will proceed with kidney biopsy for diagnosis. Patient seems to understand the need/reason for kidney biopsy and he is in agreement Stop IV fluids -Chronic kidney disease stage III, patient had creatinine of 1.66 mg/dL February 19, 2021, SCr 1.3 04/2014. Baseline creatinine since February 2021 to present is unknown. Likely patient has diabetic kidney disease with history of uncontrolled diabetes. - Uncontrolled diabetes, hemoglobin A1c 11.8% in 2019, May 2022 hemoglobin A1c 8.5%. Follows with endocrine. - Non-ST elevated [place]. Cardiology on consult, no plan for intervention at this time given TREVOR. On heparin drip. Losartan on hold. Echo EF 35%, normal LV size, stage III diastolic dysfunction, moderate to severe global hypokinesis of left ventricle, no pericardial effusion, normal systolic function. - Blood pressures acceptable on amlodipine, Lopressor - labs ordered for tomorrow
[2022-09-18] MEDS: Dorzolamide HCL/Timolol 10 ml Bottle 1 DRP OPHTHALMIC ×2 (10:24→22:42)
[2022-09-18] MEDS: amLODIPine 5 MG Tablet PO (10:25)
[2022-09-18] MEDS: Metoprolol Tartrate 50 MG Tablet PO ×2 (10:25→22:42)
[2022-09-18] MEDS: Aspirin 325 MG Tablet PO (10:26)
[2022-09-18] MEDS: Pantoprazole Sodium 20 MG Tablet PO (10:26)
[2022-09-18] MEDS: guaiFENesin 600 MG Tablet PO ×2 (10:27→22:43)
[2022-09-18] MEDS: BENZOCAINE/MENTHOL 1 LOZENGE MUCOUS MEM (10:37)
[2022-09-18] MEDS: HEPARIN/D5w 25,000 UNITS 25,000 UNITS/250 ML IV.SOLN. 10 UNITS CONT INF (10:41)
[2022-09-18] MEDS: Insulin Lispro 100 UNIT/ML INSULN.PEN SC (11:57)
[2022-09-18] MEDS: Insulin Glargine-YFGN 100 UNIT/ML Pen 20 UNIT SC (11:58)
[2022-09-18 12:25] LABS: Bedside Glucose 190 mg/dL (74-106)
--- NOTE | 2022-09-18 14:22 | PN.CARD_ITS ---
Subjective Subjective Stable from a cardiac standpoint. He does have some shortness of breath but states it is better than on admission. Objective Data Vital Signs: Vital Signs Temp Pulse Resp BP Pulse Ox O2 Del Method O2 Flow Rate 97.5 F L 82 20 H 142/79 H 94 Bi-pap 5 09/18/22 12:00 09/18/22 13:02 09/18/22 13:02 09/18/22 12:00 09/18/22 13:02 09/18/22 12:00 09/18/22 10:00 FiO2 40 09/18/22 13:02 Oxygen Flow Rate (L/min) 5 Oxygen Delivery Method Bi-pap Weight: 179 lb 10.828 oz Body Mass Index (BMI) 25.5 Intake & Output: Intake and Output for Last 24 Hours 09/16/22 09/17/22 09/18/22 23:59 23:59 23:59 Intake Total 2974.5 / 3274.5 3359.57 / 3359.57 2277.50 / 2277.50 Output Total 250 / 250 1350 / 1350 350 / 350 Balance 2724.5 / 3024.5 2009.57 / 2009.57 1927.50 / 1927.50 Lab / Micro Data Result Diagrams: 09/18/22 05:55 09/18/22 05:55 Labs: Laboratory Results - last 24 hr 09/17/22 05:59: Complement C4 27 09/17/22 11:43: POC Glucose 298 H 09/17/22 15:45: Urine Creatinine 68.50 09/17/22 15:45: Ur Random Sodium 40 09/17/22 15:45: Urine Color Yellow, Urine Clarity Clear, Urine pH 6.0, Ur Sp ecific [place] 1.015, Urine Protein 500 H, Urine Glucose (UA) 1000 H, Urine Ketones Negative, Urine Occult Blood 25 H, Urine Nitrite Negative, Urine Bilirubin Negative, Urine Urobilinogen Normal, Ur Leukocyte Esterase Negative, Urine RBC 0-5 SEEN, Urine WBC 0 SEEN, Ur Squamous Epith Cells 0 SEEN, Urine Bacteria 0 SEEN, Urine Mucus 0 SEEN 09/17/22 15:45: U Random Total Protein 512.7 H, Urine Creatinine 67.70, Protein/Creatinin Ratio 7573 H 09/17/22 17:33: POC Glucose 315 H 09/17/22 21:52: POC Glucose 217 H 09/18/22 05:55: Sodium 135 L, Potassium 4.3, Chloride 106, Carbon Dioxide 18.0 L , Anion Gap 11, BUN 82 H, Creatinine 7.96 H*, Estim Creat Clear Calc 10.44, Est GFR (MDRD) Af Amer 9 L, Est GFR (MDRD) Non-Af 7 L, BUN/Creatinine Ratio 10.3, Glucose 155 H, Calcium 7.7 L, Phosphorus 6.8 H, Albumin 2.4 L 09/18/22 05:55: WBC 11.1 H, RBC 2.93 L, Hgb 9.0 L, Hct 27.0 L, MCV 92.2, MCH 30.7, MCHC 33.3, RDW Std Deviation 41.8, RDW Coeff of Jenifer 12.6, Plt Count 258, MPV 12.0, Immature Gran % (Auto) 0.500, Neut % (Auto) 85.2 H, Lymph % (Auto) 6.6 L, [place] % (Auto) 6.8, Eos % (Auto) 0.5, Baso % (Auto) 0.4, Absolute Neuts (auto) 9.5 H, Absolute Lymphs (auto) 0.73 L, Nucleated RBC % 0 09/18/22 05:55: APTT 60.9 H 09/18/22 06:36: POC Glucose 139 H 09/18/22 11:54: POC Glucose 190 H Micro: Microbiology 09/17/22 15:45 Urine, Clean Catch Urine Culture - Preliminary Culture exhibits no growth. Cardiology Labs/Tests 09/17/22 15:45: Urine Color Yellow, Urine Clarity Clear, Urine pH 6.0, Ur Specific [place] 1.015, Urine Protein 500 H, Urine Glucose (UA) 1000 H, Urine Ketones Negative, Urine Occult Blood 25 H, Urine Nitrite Negative, Urine Bilirubin Negative, Urine Urobilinogen Normal, Ur Leukocyte Esterase Negative, Urine RBC 0-5 SEEN, Urine WBC 0 SEEN 09/18/22 05:55: Sodium 135 L, Potassium 4.3, Chloride 106, Carbon Dioxide 18.0 L , Anion Gap 11, BUN 82 H, Creatinine 7.96 H*, Est GFR (MDRD) Af Amer 9 L, Est GFR (MDRD) Non-Af 7 L, BUN/Creatinine Ratio 10.3, Glucose 155 H, Calcium 7.7 L, Phosphorus 6.8 H 09/18/22 05:55: WBC 11.1 H, RBC 2.93 L, Hgb 9.0 L, Hct 27.0 L, MCV 92.2, MCH 30.7, MCHC 33.3, Plt Count 258, MPV 12.0, Immature Gran % (Auto) 0.500, Neut % (Auto) 85.2 H, Lymph % (Auto) 6.6 L, [place] % (Auto) 6.8, Eos % (Auto) 0.5, Baso % (Auto) 0.4, Absolute Neuts (auto) 9.5 H, Nucleated RBC % 0 09/18/22 05:55: APTT 60.9 H Rhythm: EKG: ECHO: Stress Test: Cardiac Cath: PCI: CT Surgery: Holter monitor: EPS: PPM: CXR: Chest CT Scan: Physical Exam Const alert and oriented x3 Neck full ROM Resp clear to auscultation bilaterally Cardio regular rate and regular rhythm Extremity Extremity Narrative: 1+ edema bilaterally Psych mental status grossly normal Assessment & Plan Assessment/Plan (1) Non-ST elevated myocardial infarction (non-STEMI): PLAN: Patient presents with a non-ST elevation myocardial infarction. With his risk factors of hypertension as well as diabetes mellitus it is likely that he has premature coronary artery disease. At this point in time it is paramount that his renal function be evaluated before any cardiac catheterization is performed. Stable from a cardiac standpoint. However he is at risk for going into pulmonary edema and his volume status needs to be monitored closely. Nephrology is following. Okay to stop the heparin now. Aspirin is being held in anticipation of renal biopsy. This is reasonable as well. (2) Hypertensive emergency: PLAN: Aggressive treatment of his blood pressure should be instituted initially with amlodipine Recommend addition of the beta-gwyn As needed hydralazine Thank you for allowing me to participate in the care of your patient. Please don't hesitate to call if any issues arise. PLAN: Plan Blood pressure is better controlled. Continue present management. Charges/Coding Visit Charges Inpatient E&M: 42963 Subs Hosp L2
[2022-09-18 15:08] LABS: Cytoplasmic Ab (C-ANCA) <1:20 titer (Neg:<1:20)
[2022-09-18 16:39] LABS: Perinuclear Ab (P-ANCA) <1:20 titer (Neg:<1:20)
[2022-09-18 18:55] LABS: Bedside Glucose 143 mg/dL (74-106)
[2022-09-18] MEDS: Latanoprost 0.005% 1 Bottle 1 DRP OPHTHALMIC (22:43)
[2022-09-18] MEDS: Atorvastatin Calcium 40 MG Tablet PO (22:43)
[2022-09-18] MEDS: Heparin Injection (Vial) 5,000 UNIT/ML VIAL 5000 UNIT SC (22:46)
[2022-09-18] MEDS: 0.9% Saline Lock 10 ML Syringe IV (22:55)
[2022-09-18 23:20] LABS: Bedside Glucose 117 mg/dL (74-106)
[2022-09-19] VITALS (23 sets, daily range): BP systolic 137–174; BP diastolic 74–96; PULSE 67–92; RESP 12–27; TEMP 36.2–36.6; O2SAT 91–99
[2022-09-19] MEDS: Acetaminophen 500 MG Tablet 1000 MG PO ×3 (06:06→22:39)
[2022-09-19 06:50] LABS: Bedside Glucose 77 mg/dL (74-106)
[2022-09-19 07:13] LABS: Absolute Lymphocyte Count 0.62 X10^3/uL (0.83-4.51); Absolute Neutrophil Count 6.4 X10^3/uL (2.0-7.7); Basophil# 0.03 X10^3/uL; Basophil% 0.4 % (0-1); Eosinophil# 0.25 X10^3/uL; Hematocrit 25.2 % (40-54); Lymphocyte # 0.62 X10^3/ul (0.83-4.51); Lymphocyte % 7.5 % (19-41); Mean Corp Hgb Conc 31.7 g/dL (32-36); Mean Corpuscular Hgb 29.5 pg (27.0-32.0); Mean Platelet Vol. 11.7 fl (6.2-12.0); Monocyte# 0.87 X10^3/uL; Monocyte% 10.6 % (0-10); NRBC Flagged by Analyzer 0.2 % (0-5); Neutrophil # 6.42 X10^3/uL (2.7-7.7); Platelet Count 201 K/mm3 (150-450); RBC Distribution Width CV 12.7 % (11.6-14.6); RBC Distribution Width SD 43.5 fl (35.1-43.9); Red Blood Count 2.71 M/mm3 (4.6-6.2); White Blood Count 8.2 K/mm3 (4.4-11.0)
--- NOTE | 2022-09-19 08:05 | PN.HOSP_ITS ---
Subjective Subjective Feeling short of breath and requesting be placed on BiPAP. Objective Data Objective Data Vital Signs: Vital Signs Temp Pulse Resp BP Pulse Ox O2 Del Method O2 Flow Rate 36.6 C 71 23 H 147/75 H 91 Bi-pap 5 09/19/22 04:00 09/19/22 06:44 09/19/22 05:00 09/19/22 04:00 09/19/22 05:00 09/19/22 05:00 09/18/22 15:00 FiO2 30 09/19/22 05:00 Oxygen Flow Rate (L/min) 5 Oxygen Delivery Method Bi-pap Weight: 81.5 kg Body Mass Index (BMI) 25.5 Intake & Output: Intake and Output for Last 24 Hours 09/17/22 09/18/22 09/19/22 23:59 23:59 23:59 Intake Total 3359.57 / 3359.57 2936.00 / 2936.00 0 / 0 Output Total 1350 / 1350 1020 / 1520 500 / 500 Balance 2008.57 / 2008.57 1916.00 / 1416.00 -500 / -500 Lab / Micro Data Result Diagrams: 09/19/22 06:58 09/19/22 06:58 Labs: Laboratory Results - last 24 hr 09/17/22 05:59: Complement C4 27 09/17/22 12:03: c-ANCA Antibody <1:20, Atypical p-ANCA <1:20, p-ANCA Antibody <1:20 09/18/22 11:54: POC Glucose 190 H 09/18/22 16:27: POC Glucose 143 H 09/18/22 22:53: POC Glucose 117 H 09/19/22 06:31: POC Glucose 77 09/19/22 06:58: WBC 8.2, RBC 2.71 L, Hgb 8.0 L, Hct 25.2 L, MCV 93.0, MCH 29.5, MCHC 31.7 L, RDW Std Deviation 43.5, RDW Coeff of Jenifer 12.7, Plt Count 201, MPV 11.7, Immature Gran % (Auto) 0.500, Neut % (Auto) 78.0 H, Lymph % (Auto) 7.5 L, [place] % (Auto) 10.6 H, Eos % (Auto) 3.0, Baso % (Auto) 0.4, Absolute Neuts (auto) 6.4, Absolute Lymphs (auto) 0.62 L, Nucleated RBC % 0.2 Micro: Microbiology 09/17/22 15:45 Urine, Clean Catch Urine Culture - Preliminary Culture exhibits no growth. 09/16/22 07:05 Nasal Secretion SARS-CoV-2 & FLU Antigen (Rapid) - Final Physical Exam Const alert and no apparent distress Resp Resp Narrative: Bilateral crackles Cardio regular rate, regular rhythm, S1 normal heart sound and S2 normal heart sound GI normal to inspection, nondistended, normoactive bowel sounds and soft to palpation Extremity Extremity Narrative: 2+ lower extremity edema Assessment & Plan Assessment/Plan (1) Non-ST elevated myocardial infarction (non-STEMI): PLAN: Troponins were 1211. Patient did have some ST depressions in the inferior leads. Raynaud's troponins may be skewed upwards due to his acute kidney injury but he is having ongoing chest pain. Unclear if this chest pain is actually cardiac or musculoskeletal as patient is a poor historian even with deaf interpreter. Echocardiogram shows an EF of 35% with stage III diastolic dysfunction and moderate to severe global hypokinesis of the left ventricle. Pulmonary artery systolic pressure of 40 mmHg.. Plan: * Discontinue heparin drip * cardiology following * Given his kidney function there is no current plans for cardiac ca theterization until his kidney function is improved or stabilized if that would be necessary. * Continue metoprolol tartrate. (2) Acute renal failure: PLAN: Nonoliguric through [facility] I was able to see patient had a BMP on February 19, 2021 and his creatinine at that time was 1.66. I do not see any additional BMPs in the interim. Unclear if this is been just a chronic progression since then or this is been an acute worsening Renal ultrasound showed some medical renal disease Fractional excretion of sodium is 3.56% Plan: * Hold losartan * IV fluids. Patient with metabolic acidosis due to his kidney disease and patient be placed on a bicarb drip * nephrology following * No no acute plans for renal replacement therapy at this point. * Patient to have kidney biopsy on the . 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 Blood sugars elevated but patient is not currently in DKA Continue with basal insulin to 25 units daily and his prandial insulin is at 38 but I will change it over 30 but also have a sliding scale insulin. Last A1c from September 14 was 7 Patient did have hypoglycemic down to 19 yesterday. Glargine was discontinued. We will need to reintroduce but hold off on the high-dose prandial insulin the patient was receiving. (5) Congenital deafness: PLAN: Apparently all the information that the stepson told me about the patient not be able to read or read lips is not accurate. Was able to communicate to the patient by talking to him directly and he expressed understanding. I did have to repeat some things but he did grasp understanding. (6) Acute respiratory failure with hypoxia: PLAN: Improved did require going on a BiPAP yesterday but now improved down to 2 L nasal cannula ABG performed later showed a respiratory alkalosis. This is likely due to compensation for the metabolic acidosis. Does have a component of CHF (7) Metabolic acidosis: PLAN: Present on admission Secondary to acute kidney injury Improved but, dioxide still 18 On a bicarbonate drip (8) Cardiomyopathy: PLAN: EF of 35% Unclear etiology More definitive cardiac evaluation, including cardiac catheterization on hold pending kidney evaluation Not a candidate for ANIA inhibitors nor angiotensin receptor blockers given acute kidney injury PLAN: Plan VTE prophylaxis: Not indicated as patient will be anticoagulated. Charges/Coding Visit Charges Inpatient E&M: 94345 Subs Hosp L2
[2022-09-19] MEDS: Albuterol 2.5 MG/3 ML VIAL.NEB. INHALATION (08:07)
[2022-09-19 08:10] LABS: Anion Gap 12 (5-15); BUN 89 mg/dL (7-18); BUN/Creat Ratio 10.7 RATIO (10-20); CPK Total, Creatine Kinase 348 U/L (39-308); Calcium,Total 7.7 mg/dL (8.5-10.1); Chloride 105 mmol/L (98-107); Creatinine, Serum 8.33 mg/dL (0.70-1.30); EST Glomerular Filtration Rate 7 mL/min (>60); Est Glom Filt Rate - Afr Amer 9 mL/min (>60); Estimated Creatinine Clearance 9.98 ml/min; Glucose 80 mg/dL (74-106); Phosphorus 7.7 mg/dL (2.5-4.9); Potassium 4.2 mmol/L (3.5-5.1); Sodium Level 135 mmol/L (136-145)
[2022-09-19 08:21] LABS: Partial Thromboplast Time 37.5 Seconds (24.1-36.2)
[2022-09-19] MEDS: Metoprolol Tartrate 50 MG Tablet PO ×2 (08:44→22:39)
[2022-09-19] MEDS: amLODIPine 5 MG Tablet PO (08:44)
[2022-09-19] MEDS: guaiFENesin 600 MG Tablet PO ×2 (08:45→22:40)
[2022-09-19] MEDS: Insulin Glargine-YFGN 100 UNIT/ML Pen 20 UNIT SC (08:45)
[2022-09-19] MEDS: Dorzolamide HCL/Timolol 10 ml Bottle 1 DRP OPHTHALMIC ×2 (08:45→22:29)
[2022-09-19] MEDS: Pantoprazole Sodium 20 MG Tablet PO (08:45)
[2022-09-19] MEDS: Heparin Injection (Vial) 5,000 UNIT/ML VIAL 5000 UNIT SC ×2 (08:46→22:30)
--- NOTE | 2022-09-19 11:16 | PN.CARD_ITS ---
Subjective Subjective Patient still continues to have shortness of breath. Appears to be more comfortable than yesterday. Objective Data Vital Signs: Vital Signs Temp Pulse Resp BP Pulse Ox O2 Del Method O2 Flow Rate 97.2 F L 74 20 H 137/74 H 94 Bi-pap 4 09/19/22 10:44 09/19/22 10:44 09/19/22 10:44 09/19/22 10:44 09/19/22 10:44 09/19/22 10:44 09/19/22 08:32 FiO2 30 09/19/22 05:00 Oxygen Flow Rate (L/min) 4 Oxygen Delivery Method Bi-pap Weight: 179 lb 10.828 oz Body Mass Index (BMI) 25.5 Intake & Output: Intake and Output for Last 24 Hours 09/17/22 09/18/22 09/19/22 23:59 23:59 23:59 Intake Total 3359.57 / 3359.57 2936.00 / 2936.00 0 / 0 Output Total 1350 / 1350 1020 / 1520 500 / 500 Balance 57 / 2008. 1916.00 / 1416.00 -500 / -500 Lab / Micro Data Result Diagrams: 09/19/22 06:58 09/19/22 06:58 Labs: Laboratory Results - last 24 hr 09/17/22 05:59: Complement C4 27 09/17/22 12:03: c-ANCA Antibody <1:20, Atypical p-ANCA <1:20, p-ANCA Antibody <1:20 09/18/22 11:54: POC Glucose 190 H 09/18/22 16:27: POC Glucose 143 H 09/18/22 22:53: POC Glucose 117 H 09/19/22 06:31: POC Glucose 77 09/19/22 06:58: APTT 37.5 H 09/19/22 06:58: Sodium 135 L, Potassium 4.2, Chloride 105, Carbon Dioxide 18.0 L , Anion Gap 12, BUN 89 H, Creatinine 8.33 H*, Estim Creat Clear Calc 9.98, Est GFR (MDRD) Af Amer 9 L, Est GFR (MDRD) Non-Af 7 L, BUN/Creatinine Ratio 10.7, Glucose 80, Calcium 7.7 L, Phosphorus 7.7 H, Total Creatine Kinase 348 H, Albumin 2.0 L 09/19/22 06:58: WBC 8.2, RBC 2.71 L, Hgb 8.0 L, Hct 25.2 L, MCV 93.0, MCH 29.5, MCHC 31.7 L, RDW Std Deviation 43.5, RDW Coeff of Jneifer 12.7, Plt Count 201, MPV 11.7, Immature Gran % (Auto) 0.500, Neut % (Auto) 78.0 H, Lymph % (Auto) 7.5 L, [place] % (Auto) 10.6 H, Eos % (Auto) 3.0, Baso % (Auto) 0.4, Absolute Neuts (auto) 6.4, Absolute Lymphs (auto) 0.62 L, Nucleated RBC % 0.2 Micro: Microbiology 09/17/22 15:45 Urine, Clean Catch Urine Culture - Preliminary Culture exhibits no growth. Cardiology Labs/Tests 09/19/22 06:58: APTT 37.5 H 09/19/22 06:58: Sodium 135 L, Potassium 4.2, Chloride 105, Carbon Dioxide 18.0 L , Anion Gap 12, BUN 89 H, Creatinine 8.33 H*, Est GFR (MDRD) Af Amer 9 L, Est GFR (MDRD) Non-Af 7 L, BUN/Creatinine Ratio 10.7, Glucose 80, Calcium 7.7 L, Ph osphorus 7.7 H 09/19/22 06:58: WBC 8.2, RBC 2.71 L, Hgb 8.0 L, Hct 25.2 L, MCV 93.0, MCH 29.5, MCHC 31.7 L, Plt Count 201, MPV 11.7, Immature Gran % (Auto) 0.500, Neut % (Auto) 78.0 H, Lymph % (Auto) 7.5 L, [place] % (Auto) 10.6 H, Eos % (Auto) 3.0, Baso % (Auto) 0.4, Absolute Neuts (auto) 6.4, Nucleated RBC % 0.2 Rhythm: EKG: ECHO: Stress Test: Cardiac Cath: PCI: CT Surgery: Holter monitor: EPS: PPM: CXR: Chest CT Scan: Physical Exam Const alert and oriented x3 Neck full ROM Cardio regular rate and regular rhythm Extremity Extremity Narrative: 1+ edema bilaterally Psych mental status grossly normal Assessment & Plan Assessment/Plan (1) Non-ST elevated myocardial infarction (non-STEMI): PLAN: Patient presents with a non-ST elevation myocardial infarction. With his risk factors of hypertension as well as diabetes mellitus it is likely that he has premature coronary artery disease. At this point in time it is paramount that his renal function be evaluated before any cardiac catheterization is performed. Stable from a cardiac standpoint. However he is at risk for going into pulmonary edema and his volume status needs to be monitored closely. Nephrology is following. Aspirin is being held in anticipation of renal biopsy. (2) Hypertensive emergency: PLAN: Continue present management PLAN: Plan Blood pressure is better controlled. Continue present management. Charges/Coding Visit Charges Inpatient E&M: 18238 Subs Hosp L2
[2022-09-19 11:40] LABS: Bedside Glucose 108 mg/dL (74-106)
--- NOTE | 2022-09-19 13:22 | PCM.PN.REN ---
Subjective Subjective No acute events overnight Tolerating p.o. intake Making urine Objective Data Objective Data Vital Signs: Vital Signs Temp Pulse Resp BP Pulse Ox O2 Del Method O2 Flow Rate 97.2 F L 70 21 H 137/74 H 92 Bi-pap 4 09/19/22 10:44 09/19/22 11:00 09/19/22 11:00 09/19/22 10:44 09/19/22 11:00 09/19/22 10:44 09/19/22 08:32 FiO2 30 09/19/22 11:00 Oxygen Flow Rate (L/min) 4 Oxygen Delivery Method Bi-pap Weight: 81.5 kg Body Mass Index (BMI) 25.5 Intake & Output: Intake and Output for Last 24 Hours 09/17/22 09/18/22 09/19/22 23:59 23:59 23:59 Intake Total 3359.57 / 3359.57 2936.00 / 2936.00 600 / 600 Output Total 1350 / 1350 1020 / 1520 1300 / 1300 Balance 2009.57 / 2008.57 1916.00 / 1416.00 -700 / -700 Lab / Micro Data Result Diagrams: 09/19/22 06:58 09/19/22 06:58 Labs: Laboratory Results - last 24 hr 09/17/22 05:59: Complement C4 27 09/17/22 12:03: c-ANCA Antibody <1:20, Atypical p-ANCA <1:20, p-ANCA Antibody <1:20 09/18/22 16:27: POC Glucose 143 H 09/18/22 22:53: POC Glucose 117 H 09/19/22 06:31: POC Glucose 77 09/19/22 06:58: APTT 37.5 H 09/19/22 06:58: Sodium 135 L, Potassium 4.2, Chloride 105, Carbon Dioxide 18.0 L, Anion Gap 12, BUN 89 H, Creatinine 8.33 H*, Estim Creat Clear Calc 9.98, Est GFR (MDRD) Af Amer 9 L, Est GFR (MDRD) Non-Af 7 L, BUN/Creatinine Ratio 10.7, Glucose 80, Calcium 7.7 L, Phosphorus 7.7 H, Total Creatine Kinase 348 H, Albumin 2.0 L 09/19/22 06:58: WBC 8.2, RBC 2.71 L, Hgb 8.0 L, Hct 25.2 L, MCV 93.0, MCH 29.5, MCHC 31.7 L, RDW Std Deviation 43.5, RDW Coeff of Jenifer 12.7, Plt Count 201, MPV 11.7, Immature Gran % (Auto) 0.500, Neut % (Auto) 78.0 H, Lymph % (Auto) 7.5 L, [place] % (Auto) 10.6 H, Eos % (Auto) 3.0, Baso % (Auto) 0.4, Absolute Neuts (auto) 6.4, Absolute Lymphs (auto) 0.62 L, Nucleated RBC % 0.2 09/19/22 11:21: POC Glucose 108 H Micro: Microbiology 09/17/22 15:45 Urine, Clean Catch Urine Culture - Preliminary Culture exhibits no growth. 09/16/22 07:05 Nasal Secretion SARS-CoV-2 & FLU Antigen (Rapid) - Final Physical Exam Narrative Awake and responsive in no acute distress S1-S2 regular Breath sounds equal Abdomen is nontender No significant edema Assessment & Plan Assessment/Plan (1) Acute renal failure: PLAN: Etiology unclear serum creatinine was at 1.6 mg/dL in February 2021. History of poorly controlled diabetes now with nephrotic range proteinuria likely diabetic nephropathy -No major improvement in renal function -Not overtly uremic -Patient plan to have a renal biopsy for diagnostic and prognostic factor on Wednesday -He will need renal replacement therapy and hence I will asked surgery to place a tunneled catheter Wednesday followed by dialysis Discussed with primary team Thank you please call [phone] with any concerns
[2022-09-19 17:20] LABS: Bedside Glucose 79 mg/dL (74-106)
[2022-09-19] MEDS: Atorvastatin Calcium 40 MG Tablet PO (22:39)
[2022-09-19] MEDS: Latanoprost 0.005% 1 Bottle 1 DRP OPHTHALMIC (22:40)
[2022-09-20] VITALS (18 sets, daily range): BP systolic 158–169; BP diastolic 78–115; PULSE 69–90; RESP 12–33; TEMP 36.2–36.6; O2SAT 90–97
[2022-09-20 00:36] LABS: Bedside Glucose 217 mg/dL (74-106)
[2022-09-20] MEDS: Albuterol 2.5 MG/3 ML VIAL.NEB. INHALATION ×3 (00:40→19:55)
[2022-09-20 06:20] LABS: Absolute Neutrophil Count 7.1 X10^3/uL (2.0-7.7); Basophil# 0.06 X10^3/uL; Basophil% 0.7 % (0-1); Eosinophil# 0.24 X10^3/uL; Eosinophils% 2.7 % (0-5); Hemoglobin 8.6 g/dL (13.0-16.5); Lymphocyte % 6.8 % (19-41); Mean Corp Hgb Conc 31.9 g/dL (32-36); Mean Corpuscular Hgb 29.9 pg (27.0-32.0); Mean Corpuscular Volume 93.8 fL (80-94); Mean Platelet Vol. 12.1 fl (6.2-12.0); Monocyte# 0.84 X10^3/uL; Monocyte% 9.5 % (0-10); NRBC Flagged by Analyzer 0 % (0-5); Neutrophil # 7.09 X10^3/uL (2.7-7.7); POSITIVE DIFFERENTIAL YES; Platelet Count 229 K/mm3 (150-450); RBC Distribution Width CV 12.6 % (11.6-14.6); RBC Distribution Width SD 43.5 fl (35.1-43.9); Red Blood Count 2.88 M/mm3 (4.6-6.2); White Blood Count 8.9 K/mm3 (4.4-11.0)
[2022-09-20 06:28] LABS: Differential Indicated SCAN CRITERIA MET
[2022-09-20] MEDS: Insulin Lispro 100 UNIT/ML INSULN.PEN SC ×3 (06:47→16:39)
[2022-09-20 07:08] LABS: Differential Comment SCANNED
[2022-09-20 07:10] LABS: Anion Gap 13 (5-15); BUN 96 mg/dL (7-18); BUN/Creat Ratio 11.1 RATIO (10-20); Calcium,Total 7.8 mg/dL (8.5-10.1); Chloride 106 mmol/L (98-107); Creatinine, Serum 8.64 mg/dL (0.70-1.30); EST Glomerular Filtration Rate 7 mL/min (>60); Est Glom Filt Rate - Afr Amer 8 mL/min (>60); Estimated Creatinine Clearance 9.62 ml/min; Glucose 208 mg/dL (74-106); Potassium 4.5 mmol/L (3.5-5.1); Sodium Level 135 mmol/L (136-145)
--- NOTE | 2022-09-20 07:52 | PN.HOSP_ITS ---
Subjective Subjective States he is having some abdominal pain. Has been requesting going back on the BiPAP at times. Objective Data Objective Data Vital Signs: Vital Signs Temp Pulse Resp BP Pulse Ox O2 Del Method O2 Flow Rate 36.6 C 81 18 166/78 H 92 Bi-pap 4 09/20/22 04:00 09/20/22 06:38 09/20/22 04:00 09/20/22 04:00 09/20/22 04:00 09/20/22 04:00 09/20/22 04:00 FiO2 30 09/20/22 04:00 Oxygen Flow Rate (L/min) 4 Oxygen Delivery Method Bi-pap Weight: 81.5 kg Body Mass Index (BMI) 25.5 Intake & Output: Intake and Output for Last 24 Hours 09/18/22 09/19/22 09/20/22 23:59 23:59 23:59 Intake Total 2936.00 / 2936.00 1000 / 1000 Output Total 1020 / 1520 1750 / 2050 600 / 600 Balance 1916.00 / 1416.00 -750 / -1050 -600 / -600 Lab / Micro Data Result Diagrams: 09/20/22 06:00 09/20/22 06:00 Labs: Laboratory Results - last 24 hr 09/19/22 06:58: APTT 37.5 H 09/19/22 06:58: Sodium 135 L, Potassium 4.2, Chloride 105, Carbon Dioxide 18.0 L , Anion Gap 12, BUN 89 H, Creatinine 8.33 H*, Estim Creat Clear Calc 9.98, Est GFR (MDRD) Af Amer 9 L, Est GFR (MDRD) Non-Af 7 L, BUN/Creatinine Ratio 10.7, Glucose 80, Calcium 7.7 L, Phosphorus 7.7 H, Total Creatine Kinase 348 H, Albumin 2.0 L 09/19/22 11:21: POC Glucose 108 H 09/19/22 17:00: POC Glucose 79 09/19/22 22:25: POC Glucose 217 H 09/20/22 06:00: WBC 8.9, RBC 2.88 L, Hgb 8.6 L, Hct 27.0 L, MCV 93.8, MCH 29.9, MCHC 31.9 L, RDW Std Deviation 43.5, RDW Coeff of Jenifer 12.6, Plt Count 229, MPV 12.1 H, Immature Gran % (Auto) 0.300, Neut % (Auto) 80.0 H, Lymph % (Auto) 6.8 L , [place] % (Auto) 9.5, Eos % (Auto) 2.7, Baso % (Auto) 0.7, Absolute Neuts (auto) 7.1, Absolute Lymphs (auto) 0.60 L, Nucleated RBC % 0, Differential Comment SCANNED 09/20/22 06:00: Sodium 135 L, Potassium 4.5, Chloride 106, Carbon Dioxide 16.0 L , Anion Gap 13, BUN 96 H, Creatinine 8.64 H*, Estim Creat Clear Calc 9.62, Est GFR (MDRD) Af Amer 8 L, Est GFR (MDRD) Non-Af 7 L, BUN/Creatinine Ratio 11.1, Glucose 208 H, Calcium 7.8 L Micro: Microbiology 09/17/22 15:45 Urine, Clean Catch Urine Culture - Preliminary Culture exhibits no growth. 09/16/22 07:05 Nasal Secretion SARS-CoV-2 & FLU Antigen (Rapid) - Final Physical Exam Const Constitutional Narrative: On BiPAP with 30% FiO2. No respiratory distress. No conversational dyspnea. Resp normal respiratory effort and no retractions Cardio regular rate, regular rhythm, S1 normal heart sound and S2 normal heart sound GI normal to inspection, nondistended, normoactive bowel sounds and soft to palpation Extremity Extremity Narrative: 2+ lower extremity edema Psych affect normal Assessment & Plan Assessment/Plan (1) Non-ST elevated myocardial infarction (non-STEMI): PLAN: Troponins were 1211. Patient did have some ST depressions in the inferior leads. Raynaud's troponins may be skewed upwards due to his acute kidney injury but he is having ongoing chest pain. Unclear if this chest pain is actually cardiac or musculoskeletal as patient is a poor historian even with meeting planner. Echocardiogram shows an EF of 35% with stage III diastolic dysfunction and moderate to severe global hypokinesis of the left ventricle. Pulmonary artery systolic pressure of 40 mmHg.. Plan: * Discontinue heparin drip * cardiology following * Given his kidney function there is no current plans for cardiac catheterization until his kidney function is improved or stabilized if that would be necessary. * Continue metoprolol tartrate. (2) Acute renal failure: PLAN: Nonoliguric through [facility] I was able to see patient had a BMP on February 19, 2021 and his creatinine at that time was 1.66. I do not see any additional BMPs in the interim. Unclear if this is been just a chronic progression since then or this is been an acute worsening Renal ultrasound showed some medical renal disease Fractional excretion of sodium is 3.56% Plan: * Hold losartan * IV fluids. Patient with metabolic acidosis due to his kidney disease and patient be placed on a bicarb drip * nephrology following * No no acute plans for renal replacement therapy at this point. * Patient to have kidney biopsy on the . * Patient will need to be initiated on dialysis and will need a tunneled dialysis catheter. 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 Blood sugars elevated but patient is not currently in DKA Continue with basal insulin to 25 units daily and his prandial insulin is at 38 but I will change it over 30 but also have a sliding scale insulin. Last A1c from September 14 was 7 Patient did have hypoglycemic down to 19 yesterday. Glargine was discontinued. We will need to reintroduce but hold off on the high-dose prandial insulin the patient was receiving. (5) Congenital deafness: PLAN: Apparently all the information that the stepson told me about the patient not be able to read or read lips is not accurate. Was able to communicate to the patient by talking to him directly and he expressed understanding. I did have to repeat some things but he did grasp understanding. (6) Acute respiratory failure with hypoxia: PLAN: Improved did require going on a BiPAP yesterday but now improved down to 2 L nasal cannula ABG performed later showed a respiratory alkalosis. This is likely due to compensation for the metabolic acidosis. Does have a component of CHF (7) Metabolic acidosis: PLAN: Present on admission Secondary to acute kidney injury Improved (8) Cardiomyopathy: PLAN: EF of 35% Unclear etiology More definitive cardiac evaluation, including cardiac catheterization on hold pending kidney evaluation Not a candidate for ANIA inhibitors nor angiotensin receptor blockers given acute kidney injury PLAN: Plan VTE prophylaxis: Not indicated as patient will be anticoagulated. Discussed with the patient's sister and father at bedside. They both can hear. They state that the patient was born with congenital deafness and they tried to see if there is anything that could be remedied by going to different facilities endocrine states but said there is nothing that could be done. They report that the patient read lips poorly and reads basic simple written commands or questions. I did inform them about his heart attack, cardiomyopathy, renal failure, need for dialysis and biopsy. All questions were answered to Charges/Coding Visit Charges Inpatient E&M: 15255 Subs Hosp L3
[2022-09-20 08:15] LABS: Bedside Glucose 185 mg/dL (74-106)
[2022-09-20] MEDS: Pantoprazole Sodium 20 MG Tablet PO (08:46)
[2022-09-20] MEDS: Dorzolamide HCL/Timolol 10 ml Bottle 1 DRP OPHTHALMIC ×2 (08:46→20:18)
[2022-09-20] MEDS: Heparin Injection (Vial) 5,000 UNIT/ML VIAL 5000 UNIT SC ×2 (08:46→20:17)
[2022-09-20] MEDS: amLODIPine 5 MG Tablet PO (08:46)
[2022-09-20] MEDS: guaiFENesin 600 MG Tablet PO ×2 (08:46→20:17)
[2022-09-20] MEDS: Metoprolol Tartrate 50 MG Tablet PO ×2 (08:46→20:17)
[2022-09-20] MEDS: Insulin Glargine-YFGN 100 UNIT/ML Pen 20 UNIT SC (08:47)
[2022-09-20 11:45] LABS: Bedside Glucose 281 mg/dL (74-106)
[2022-09-20] MEDS: Acetaminophen 500 MG Tablet 1000 MG PO ×2 (13:00→20:17)
--- NOTE | 2022-09-20 13:19 | NURSING ---
This RN used the ipad with greige goods examiner to communicate with the pt and his to explain the pt's upcoming procedures and current treatments. Questions answered and denies further questions at this time.
[2022-09-20 17:01] LABS: Bedside Glucose 240 mg/dL (74-106)
[2022-09-20] MEDS: 0.9% Saline Lock 10 ML Syringe IV (19:42)
[2022-09-20] MEDS: Ondansetron 4 MG/2 ML Vial IV (19:42)
[2022-09-20 20:11] LABS: Bedside Glucose 274 mg/dL (74-106)
[2022-09-20] MEDS: Atorvastatin Calcium 40 MG Tablet PO (20:17)
[2022-09-20] MEDS: Latanoprost 0.005% 1 Bottle 1 DRP OPHTHALMIC (20:18)
[2022-09-21] VITALS (31 sets, daily range): BP systolic 116–178; BP diastolic 53–96; PULSE 77–94; RESP 12–29; TEMP 36.2–37.2; O2SAT 86–100; BMI 25.7
[2022-09-21] MEDS: Acetaminophen 500 MG Tablet 1000 MG PO ×2 (06:30→22:39)
[2022-09-21] MEDS: hydrALAZINE 20 MG/ML Vial 10 MG IV (06:30)
[2022-09-21] MEDS: 0.9% Saline Lock 10 ML Syringe IV ×3 (06:33→18:18)
[2022-09-21 06:52] LABS: Absolute Lymphocyte Count 0.72 X10^3/uL (0.83-4.51); Absolute Neutrophil Count 8.6 X10^3/uL (2.0-7.7); Basophil# 0.07 X10^3/uL; Basophil% 0.7 % (0-1); Hematocrit 27.3 % (40-54); Hemoglobin 8.7 g/dL (13.0-16.5); Lymphocyte # 0.72 X10^3/ul (0.83-4.51); Lymphocyte % 6.9 % (19-41); Mean Corp Hgb Conc 31.9 g/dL (32-36); Mean Corpuscular Hgb 29.8 pg (27.0-32.0); Mean Corpuscular Volume 93.5 fL (80-94); Mean Platelet Vol. 12.3 fl (6.2-12.0); Monocyte% 7.7 % (0-10); NRBC Flagged by Analyzer 0 % (0-5); Neutrophil # 8.63 X10^3/uL (2.7-7.7); Neutrophil % 83.2 % (47-70); Platelet Count 283 K/mm3 (150-450); RBC Distribution Width CV 12.6 % (11.6-14.6); RBC Distribution Width SD 43.1 fl (35.1-43.9); Red Blood Count 2.92 M/mm3 (4.6-6.2); White Blood Count 10.4 K/mm3 (4.4-11.0)
[2022-09-21 07:05] LABS: Bedside Glucose 274 mg/dL (74-106)
[2022-09-21 07:57] LABS: Anion Gap 14 (5-15); BUN 99 mg/dL (7-18); BUN/Creat Ratio 11.1 RATIO (10-20); Calcium,Total 7.8 mg/dL (8.5-10.1); Chloride 107 mmol/L (98-107); Creatinine, Serum 8.92 mg/dL (0.70-1.30); EST Glomerular Filtration Rate 7 mL/min (>60); Est Glom Filt Rate - Afr Amer 8 mL/min (>60); Estimated Creatinine Clearance 9.32 ml/min; Glucose 285 mg/dL (74-106); Potassium 4.7 mmol/L (3.5-5.1); Sodium Level 136 mmol/L (136-145)
--- NOTE | 2022-09-21 08:03 | PN.CARD_ITS ---
Subjective Subjective Patient seen and evaluated. No obvious complaints at this time Objective Data Vital Signs: Vital Signs Temp Pulse Resp BP Pulse Ox O2 Del Method O2 Flow Rate 97.2 F L 83 28 H 149/78 H 98 High Flow 6 09/21/22 07:32 09/21/22 07:32 09/21/22 07:32 09/21/22 07:32 09/21/22 07:32 09/21/22 07:47 09/21/22 07:47 FiO2 30 09/21/22 06:00 Oxygen Flow Rate (L/min) 6 Oxygen Delivery Method High Flow Weight: 179 lb 10.828 oz Body Mass Index (BMI) 25.5 Intake & Output: Intake and Output for Last 24 Hours 09/19/22 09/20/22 09/21/22 23:59 23:59 23:59 Intake Total 1000 / 1000 930 / 930 Output Total 1749 / 2049 2074 / 2074 Balance -750 / -1050 -1145 / -1145 Lab / Micro Data Result Diagrams: 09/21/22 06:30 09/21/22 06:30 Labs: Laboratory Results - last 24 hr 09/20/22 06:45: POC Glucose 185 H 09/20/22 11:22: POC Glucose 281 H 09/20/22 16:38: POC Glucose 240 H 09/20/22 19:48: POC Glucose 274 H 09/21/22 06:30: WBC 10.4, RBC 2.92 L, Hgb 8.7 L, Hct 27.3 L, MCV 93.5, MCH 29.8, MCHC 31.9 L, RDW Std Deviation 43.1, RDW Coeff of Jenifer 12.6, Plt Count 283, MPV 12.3 H, Immature Gran % (Auto) 0.500, Neut % (Auto) 83.2 H, Lymph % (Auto) 6.9 L , [place] % (Auto) 7.7, Eos % (Auto) 1.0, Baso % (Auto) 0.7, Absolute Neuts (auto) 8.6 H, Absolute Lymphs (auto) 0.72 L, Nucleated RBC % 0 09/21/22 06:30: Sodium 136, Potassium 4.7, Chloride 107, Carbon Dioxide 15.0 L, Anion Gap 14, BUN 99 H, Creatinine 8.92 H*, Estim Creat Clear Calc 9.32, Est GFR (MDRD) Af Amer 8 L, Est GFR (MDRD) Non-Af 7 L, BUN/Creatinine Ratio 11.1, Glucose 285 H, Calcium 7.8 L 09/21/22 06:40: POC Glucose 274 H Micro: Microbiology 09/17/22 15:45 Urine, Clean Catch Urine Culture - Final Culture exhibits no growth. Cardiology Labs/Tests 09/21/22 06:30: WBC 10.4, RBC 2.92 L, Hgb 8.7 L, Hct 27.3 L, MCV 93.5, MCH 29.8, MCHC 31.9 L, Plt Count 283, MPV 12.3 H, Immature Gran % (Auto) 0.500, Neut % (Auto) 83.2 H, Lymph % (Auto) 6.9 L, [place] % (Auto) 7.7, Eos % (Auto) 1.0, Baso % (Auto) 0.7, Absolute Neuts (auto) 8.6 H, Nucleated RBC % 0 09/21/22 06:30: Sodium 136, Potassium 4.7, Chloride 107, Carbon Dioxide 15.0 L, Anion Gap 14, BUN 99 H, Creatinine 8.92 H*, Est GFR (MDRD) Af Amer 8 L, Est GFR (MDRD) Non-Af 7 L, BUN/Creatinine Ratio 11.1, Glucose 285 H, Calcium 7.8 L Rhythm: EKG: ECHO: Stress Test: Cardiac Cath: PCI: CT Surgery: Holter monitor: EPS: PPM: CXR: Chest CT Scan: Physical Exam Const alert, oriented x3 and no apparent distress General Appearance: cooperative HEENT hearing grossly normal bilaterally Head and Scalp: atraumatic Eyes EOMs intact bilaterally Neck General: normal visual inspection Chest inspection of chest normal and palpation of chest normal Resp normal respiratory effort Auscultation: crackles Cardio regular rate, regular rhythm, S1 normal heart sound and S2 normal heart sound Jugular Venous Distention: JVD GI normal to inspection, nondistended, normoactive bowel sounds Extremity normal capillary refill and no pedal edema Peripheral Pulses: Yes pulses 2+ throughout and femoral pulses present Skin no rashes or lesions noted Neuro oriented x3 and CN's II-XII intact bilaterally Psych Appearance: grossly normal and appropriate Assessment & Plan Assessment/Plan (1) Non-ST elevated myocardial infarction (non-STEMI): PLAN: Patient presents with a non-ST elevation myocardial infarction. With his risk factors of hypertension as well as diabetes mellitus it is likely that he has premature coronary artery disease. At this point in time it is paramount that his renal function be evaluated before any cardiac catheterization is performed. * Would recommend continuation of baby aspirin * Patient has global reduction in left ventricular systolic function with estimated ejection fraction of 35%. (2) Hypertensive emergency: PLAN: Aggressive treatment of his blood pressure should be instituted initially with amlodipine Recommend addition of the beta-gwyn As needed hydralazine Thank you for allowing me to participate in the care of your patient. Please don't hesitate to call if any issues arise. (3) Cardiomyopathy: PLAN: Patient has a cardiomyopathy likely secondary to hypertensive heart disease. The plan would be to continue the current medical therapy and hemo- dialysis. Thank you for allowing me to participate in the care of your patient. Please don't hesitate to call if any issues arise.
--- NOTE | 2022-09-21 08:16 | NURSING ---
Critical creatinine result 8.92 called to primary RNHamzah
--- NOTE | 2022-09-21 08:55 | PN.HOSP_ITS ---
Subjective Subjective Patient was seen and examined in surgical preop room. Was found in respiratory distress on nonrebreather. Patient has congenital deafness. Was on 6 L of oxygen, FiO2 30% in the morning. Objective Data Objective Data Vital Signs: Vital Signs Temp Pulse Resp BP Pulse Ox O2 Del Method O2 Flow Rate 98.2 F 93 29 H 148/67 H 95 Nasal Cannula 6 09/21/22 08:35 09/21/22 08:35 09/21/22 08:35 09/21/22 08:35 09/21/22 08:35 09/21/22 08:35 09/21/22 08:35 FiO2 30 09/21/22 06:00 Oxygen Flow Rate (L/min) 6 Oxygen Delivery Method Nasal Cannula Weight: 179 lb 10.828 oz Body Mass Index (BMI) 25.7 Intake & Output: Intake and Output for Last 24 Hours 09/19/22 09/20/22 09/21/22 23:59 23:59 23:59 Intake Total 1000 / 1000 930 / 930 Output Total 1750 / 0 2074 / 5 Balance -750 / -1050 -1145 / -1145 Lab / Micro Data Result Diagrams: 09/21/22 06:30 09/21/22 06:30 Labs: Laboratory Results - last 24 hr 09/20/22 11:22: POC Glucose 281 H 09/20/22 16:38: POC Glucose 240 H 09/20/22 19:48: POC Glucose 274 H 09/21/22 06:30: WBC 10.4, RBC 2.92 L, Hgb 8.7 L, Hct 27.3 L, MCV 93.5, MCH 29.8, MCHC 31.9 L, RDW Std Deviation 43.1, RDW Coeff of Jenifer 12.6, Plt Count 283, MPV 12.3 H, Immature Gran % (Auto) 0.500, Neut % (Auto) 83.2 H, Lymph % (Auto) 6.9 L , [place] % (Auto) 7.7, Eos % (Auto) 1.0, Baso % (Auto) 0.7, Absolute Neuts (auto) 8.6 H, Absolute Lymphs (auto) 0.72 L, Nucleated RBC % 0 09/21/22 06:30: Sodium 136, Potassium 4.7, Chloride 107, Carbon Dioxide 15.0 L, Anion Gap 14, BUN 99 H, Creatinine 8.92 H*, Estim Creat Clear Calc 9.32, Est GFR (MDRD) Af Amer 8 L, Est GFR (MDRD) Non-Af 7 L, BUN/Creatinine Ratio 11.1, Glucose 285 H, Calcium 7.8 L 09/21/22 06:40: POC Glucose 274 H Micro: Microbiology 09/17/22 15:45 Urine, Clean Catch Urine Culture - Final Culture exhibits no growth. 09/16/22 07:05 Nasal Secretion SARS-CoV-2 & FLU Antigen (Rapid) - Final Physical Exam Narrative Seen and examined. Found tachypneic respiratory rate 20-29, 9 L of oxygen. Earlier renal biopsy was canceled as patient could not lay on the side or back home. Patient is further scheduled for total dialysis catheter which was also possible and include the same reason of respiratory distress, tachypnea and respiratory failure. General: Awake, in respiratory distress. HEENT: Atraumatic, PERRLA, EOMI, Normocephalic Oral: On nonrebreather. Neck: Supple, No JVD, Negative Carotid Bruits Lungs: Air entry bilaterally severely diminished. Shallow breathing, tachypneic and hypoxic. Bilateral wheezing Cardiovascular: Sinus rhythm, Normal S1, Normal S2, No murmurs Abdomen: Bowel Sounds Present, Soft, Non Tender, Non-Distended : Urine output documented 2 L, voiding spontaneously. No renal angle tenderness. No suprapubic tenderness. Extremities: No edema, Capillary Refill Less than 3 Seconds Skin: No rashes, No breakdown Musculoskeletal: No Tenderness to Palpation of Joints or Extremities Neurological: Congenital deafness, detailed neuro exam unobtainable due to restricted understanding due to deafness and respiratory distress Psych/Mental Status: Flat affect Assessment & Plan Assessment/Plan (1) Non-ST elevated myocardial infarction (non-STEMI): PLAN: Troponins were 1211. Patient did have some ST depressions in the inferior leads. Echocardiogram shows an EF of 35% with stage III diastolic dysfunction and moderate to severe global hypokinesis of the left ventricle. Pulmonary artery systolic pressure of 40 mmHg.. Plan: * Discontinue heparin drip * cardiology following, recommended baby aspirin, amlodipine, metoprolol and as needed hydralazine * Given his kidney function there is no current plans for cardiac catheterization until his kidney function is stabilized/hemodialyzed (2) Acute renal failure: PLAN: Nonoliguric through [facility] I was able to see patient had a BMP on February 19, 2021 and his creatinine at that time was 1.66. I do not see any additional BMPs in the interim. Unclear if this is been just a chronic progression since then or this is been an acute worsening Renal ultrasound showed some medical renal disease Fractional excretion of sodium is 3.56% Plan: Losartan on hold. Discussed with the web analytics developer. Patient had a scheduled renal biopsy and tunneled hemodialysis catheter which was canceled due to respiratory distress. Patient has NON-anion gap metabolic acidosis, bicarb 15, chloride 107. Creatinine 8.92. Chest x-ray portable stat ordered. 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 Blood sugars elevated but patient is not currently in DKA Continue with basal insulin to 25 units daily and his prandial insulin is at 38 but I will change it over 30 but also have a sliding scale insulin. Last A1c from September 14 was 7 Patient did have hypoglycemic down to 19 yesterday. Glargine was discontinued. We will need to reintroduce but hold off on the high-dose prandial insulin the patient was receiving. (5) Congenital deafness: PLAN: Apparently all the information that the stepson told me about the patient not be able to read or read lips is not accurate. Was able to communicate to the patient by talking to him directly and he expressed understanding. I did have to repeat some things but he did grasp understanding. (6) Acute respiratory failure with hypoxia: PLAN: 09/21: Patient had respiratory distress, tachypnea and hypoxia on 1 L of oxygen. First kidney biopsy was canceled as pertinent could not lay down prone or on sideways and then thrombolysis of catheter for same region. Subsequently patient was transferred to ICU. Transit Operator consult requested. Patient initially needs to be tried on NIPPV and if cannot salvage will need intubation. I requested Dr. Arteaga for temporary dialysis but he said web analytics developer can put it. Chest x-ray stat ordered (7) Cardiomyopathy: PLAN: EF of 35% Unclear etiology More definitive cardiac evaluation, including cardiac catheterization on hold pending kidney evaluation Not a candidate for ANIA inhibitors nor angiotensin receptor blockers given acute kidney injury PLAN: Plan VTE prophylaxis: Not indicated as patient will be anticoagulated. The patient's sister and father both can hear. They state that the patient was born with congenital deafness and they tried to see if there is anything that could be remedied by going to different facilities but said there is nothing that could be done. They report that the patient read lips poorly and reads basic simple written commands or questions. Charges/Coding Visit Charges Inpatient E&M: 78634 Subs Hosp L3
[2022-09-21 09:18] LABS: International Normalized Ratio 1.1; Prothrombin Time (Protime)PT. 14.2 SECONDS (11.7-14.9)
[2022-09-21 09:19] LABS: Partial Thromboplast Time 38.6 Seconds (24.1-36.2)
[2022-09-21] MEDS: Dorzolamide HCL/Timolol 10 ml Bottle 1 DRP OPHTHALMIC ×2 (10:16→22:46)
[2022-09-21] MEDS: Metoprolol Tartrate 50 MG Tablet PO ×2 (10:17→22:39)
[2022-09-21] MEDS: guaiFENesin 600 MG Tablet PO ×2 (10:18→22:39)
[2022-09-21] MEDS: Pantoprazole Sodium 20 MG Tablet PO (10:18)
[2022-09-21] MEDS: amLODIPine 5 MG Tablet PO (10:18)
[2022-09-21] MEDS: Insulin Glargine-YFGN 100 UNIT/ML Pen 20 UNIT SC (10:25)
[2022-09-21] MEDS: Insulin Lispro 100 UNIT/ML INSULN.PEN SC (11:28)
[2022-09-21 11:51] LABS: Bedside Glucose 265 mg/dL (74-106)
--- NOTE | 2022-09-21 12:08 | PN.RENAL_ITS ---
Subjective Subjective Resting quietly. 2 sisters at bedside. No overnight events. Patient had went for kidney biopsy but unable to have procedure done as he was unable to lay flat. Objective Data Objective Data Vital Signs: Vital Signs Temp Pulse Resp BP Pulse Ox O2 Del Method O2 Flow Rate 97.9 F 84 22 H 132/72 H 97 High Flow 9 09/21/22 10:10 09/21/22 11:00 09/21/22 10:10 09/21/22 10:17 09/21/22 10:10 09/21/22 10:10 09/21/22 10:10 FiO2 30 09/21/22 09:52 Oxygen Flow Rate (L/min) 9 Oxygen Delivery Method High Flow Weight: 81.5 kg Body Mass Index (BMI) 25.7 Intake & Output: Intake and Output for Last 24 Hours 09/19/22 09/20/22 09/21/22 23:59 23:59 23:59 Intake Total 1000 / 1000 930 / 930 120 / 120 Output Total 1750 / 0 5 / 5 Balance -750 / -1050 -1145 / -1145 120 / 120 Lab / Micro Data Result Diagrams: 09/21/22 06:30 09/21/22 06:30 Labs: Laboratory Results - last 24 hr 09/20/22 16:38: POC Glucose 240 H 09/20/22 19:48: POC Glucose 274 H 09/21/22 06:30: PT 14.2, INR 1.1, APTT 38.6 H 09/21/22 06:30: WBC 10.4, RBC 2.92 L, Hgb 8.7 L, Hct 27.3 L, MCV 93.5, MCH 29.8, MCHC 31.9 L, RDW Std Deviation 43.1, RDW Coeff of Jenifer 12.6, Plt Count 283, MPV 12.3 H, Immature Gran % (Auto) 0.500, Neut % (Auto) 83.2 H, Lymph % (Auto) 6.9 L , [place] % (Auto) 7.7, Eos % (Auto) 1.0, Baso % (Auto) 0.7, Absolute Neuts (auto) 8.6 H, Absolute Lymphs (auto) 0.72 L, Nucleated RBC % 0 09/21/22 06:30: Sodium 136, Potassium 4.7, Chloride 107, Carbon Dioxide 15.0 L, Anion Gap 14, BUN 99 H, Creatinine 8.92 H*, Estim Creat Clear Calc 9.32, Est GFR (MDRD) Af Amer 8 L, Est GFR (MDRD) Non-Af 7 L, BUN/Creatinine Ratio 11.1, Glucose 285 H, Calcium 7.8 L 09/21/22 06:40: POC Glucose 274 H 09/21/22 11:26: POC Glucose 265 H Micro: Microbiology 09/17/22 15:45 Urine, Clean Catch Urine Culture - Final Culture exhibits no growth. 09/16/22 07:05 Nasal Secretion SARS-CoV-2 & FLU Antigen (Rapid) - Final Physical Exam Narrative Awake and responsive, in no acute distress S1, S2, RRR Lung sounds clear anteriorly and posteriorly. No wheezes, rhonchi or rales noted Abdomen is nontender, positive bowel sounds No significant edema Assessment & Plan Assessment/Plan (1) Acute renal failure: PLAN: Etiology unclear serum creatinine was at 1.6 mg/dL in February 2021. History of poorly controlled diabetes now with nephrotic range proteinuria likely diabetic nephropathy -No major improvement in renal function -Not overtly uremic -Plan to have a renal biopsy for diagnostic and prognostic factor; procedure was attempted today but patient unable to lay flat. Procedure on hold at this time. -Overall renal function is not improving therefore it had been discussed with patient and family in length that patient needs renal replacement therapy. Serum creatinine 8.76 mg/dL on admission, improved slightly with gentle IVF and today creatinine 8.92 mg/dL. Patient is in agreement to moving forward with renal placement therapy, to have tunneled HD catheter placed today. For dialysis today over 2.5 hours with 1 L UF. Plan for dialysis tomorrow over 3 hours with 1 to 2 L UF as patient/blood pressure tolerates. C3 pending, C4 normal at 27. P-ANCA c-ANCA unremarkable. Urine protein creatinine ratio 7573 mg/g. field irrigation worker to arrange for dialysis at [facility] kidney [place], diagnosis TREVOR. Hep B surface antigen ordered
--- NOTE | 2022-09-21 12:36 | NURSING ---
Report called to [facility] for pt to be tx to ICU bed 201 from [facility].
--- NOTE | 2022-09-21 12:45 | NURSING ---
Called pt's sister Lila to update pt went for dialysis catheter placement and was short of breath. Pt being transferred to ICU bed 201.
--- NOTE | 2022-09-21 12:50 | SUR.PREOP ---
Patient presents to for surgery check-in, in respiratory distress. Patient on 8L high flow NC, bilateral course crackles with shallow breaths, pulse ox 84% at lowest. Changed to a non rebreather at 10L, continued pulse ox monitoring, increased to 93%. Obvious work of breathing increase. Dr. Arteaga to bedside, case cancelled d/t patient's respiratory distress. Dr. Arteaga contacted hospitalist who came to bedside. Ordered transfer to ICU for bipap. fisheries technical officer to bedside for transfer. Patient transferred on monitor with 2 RNs and 1 RT. Handoff given at bedside. Patient glasses with patient.
--- NOTE | 2022-09-21 13:10 | SUR.PREOP ---
This nurse called family contact on chart and left vm update on transfer of level of care and cancellation of surgery at this time.
[2022-09-21 13:17] LABS: Hepatitis B Surface Antigen Non-Reactive (Nonreactive)
--- NOTE | 2022-09-21 13:17 | CON.PCM.CC_ITS ---
Assessment & Plan Assessment/Plan (1) Acute respiratory failure with hypoxia: PLAN: Plan RECOMMENDATIONS: 1. Continue supplemental oxygen to maintain saturations at or above 90%. 2. Consider placement of temporary hemodialysis line to facilitate further volume optimization. 3. Reattempt kidney biopsy once medically stabilized. IMPRESSIONS: 1. Acute hypoxemic respiratory failure Appears to be secondary to hypervolemia in the setting of acute kidney injury. The patient's chest x-ray continues to demonstrate progressive bilateral pulmon pepe vascular congestion and a right-sided pleural effusion. Attempt to place a tunneled dialysis catheter by general surgery was unsuccessful. Therefore, there are 2 options to proceed, but the first of which includes the patient being intubated to facilitate a tunneled dialysis catheter in the OR. The second option is to place a temporary dialysis line to facilitate volume optimization through hemodialysis. At this time, the patient has been weaned from BiPAP to nasal cannula oxygen at 4 L/min. 2. Acute kidney injury Unclear etiology. Nephrology is following to assist with medical management. The patient is in need of hemodialysis and volume optimization. Management as noted above. 3. NSTEMI The patient's echocardiogram demonstrated a depressed ejection fraction at 35% with stage III diastolic dysfunction and pulmonary hypertension. Cardiology is following to assist with medical management. He may ultimately require cardiac catheterization once hemodialysis has been initiated. 4. Diabetes mellitus/hypertension/congenital deafness/GERD Complicates care, management, recovery and prognosis. Continue home medications as indicated. This note was generated with [employer] dictation software. It may contain incorrect words, spelling, and punctuation that were not noted in checking the note before signing. HPI Consult Data Date of Consult: 09/22/22 HPI Narrative Reason for Consultation: Respiratory failure HPI Narrative: The patient is a 57-year-old male, with a history as outlined below, who presented to the emergency department on September 15 with chest pain, shortness of breath and hypoglycemia. The patient was seen in consultation by cardiology due to an NSTEMI. Nephrology was also consulted due to acute kidney injury. Given that the etiology for his acute renal failure was unclear, it was recommended the patient undergo a renal biopsy for diagnostic and prognostic factors. He was also felt to need a tunneled dialysis catheter to facilitate dialysis support. An attempt was made to perform the renal biopsy. However, the procedure had to be aborted as the patient was unable to lay flat. Following this, an attempt was made to take the patient to the OR to have a tunneled dialysis line placed. However, the patient apparently went into respiratory distress and was emergently transferred to the medical intensive care unit. On arrival, the patient was placed on BiPAP therapy for approximately 30 to 40 minutes and then quickly de-escalated to supplemental oxygen at 4 L/min via nasal cannula. His chest imaging continues to demonstrate pulmonary vascular congestion and a right-sided pleural effusion. [facility] Medical History Congenital deafness Deaf Diabetes HTN (hypertension) Hyperlipidemia Stroke Vision problem Home Medications aspirin 325 mg tablet 325 mg PO DAILY heart health 01/04/20 [History Last Taken 09/15/22] dorzolamide-timolol (PF) 2 %-0.5 % eye drops in a dropperette 1 drp ophthalmic (eye) BID eyes 01/04/20 [History Last Taken Unknown] latanoprost 0.005 % eye drops 1 drp ophthalmic (eye) DAILY eyes 01/04/20 [History Last Taken Unknown] pen needle, diabetic 31 gauge x 5/16 (Comfort EZ Pen [place]) #1,200 ea 01/04/20 [History Last Taken Unknown] blood sugar diagnostic (Accu-Chek Guide test strips) #100 ea 03/07/20 [Rx Last Taken Unknown] simvastatin 80 mg tablet 80 mg PO QHS #30 tabs 07/04/21 [Rx Last Taken Unknown] losartan 50 mg tablet 50 mg PO BID #180 tabs 05/11/22 [Rx Last Taken Unknown] insulin aspart U-100 100 unit/mL (3 mL) subcutaneous pen (Novolog Flexpen U-100 Insulin aspart) See Rx Instructions subcut TID #30 mL 07/02/22 [Rx Last Taken Unknown] amlodipine 5 mg tablet 5 mg PO DAILY BP 09/14/22 [History Last Taken 09/15/22] omeprazole 20 mg capsule,delayed release 20 mg PO DAILY stomach 09/14/22 [History Last Taken Unknown] insulin degludec 200 unit/mL (3 mL) subcutaneous pen (Tresiba FlexTouch U-200 insulin) 25 unit subcut DAILY diabetes 09/16/22 [History Last Taken 09/15/22] Allergy/AdvReac Type Severity Reaction Status Date / Time No Known Allergies Allergy Verified 09/15/22 10:39 Family History Mother Diabetes Deaf Surgical History unable to obtain Social History Smoking Status: Never smoker alcohol intake: never substance use type: does not use what type of physical activity do you participate in: none ROS ROS Narrative 10 systems were reviewed with pertinent positives as noted in the HPI above. Physical Exam Const alert and no apparent distress Constitutional Narrative: Congenital deafness. HEENT normocephalic and head/scalp atraumatic Eyes PERRL, EOMs intact bilaterally and conjunctivae normal Neck supple General: trachea midline Chest inspection of chest normal Resp Effort and Inspection: tachypneic Auscultation: wheezes and diminished lung sounds Cardio regular rate and regular rhythm GI normal to inspection, nondistended, normoactive bowel sounds Extremity no clubbing, cyanosis or edema Skin no rashes or lesions noted Neuro moves all extremities and no focal motor deficits Psych Mood & Affect: flat affect Lab / Micro Data Result Diagrams: 09/22/22 05:09 09/21/22 06:30 Labs: Laboratory Results - last 24 hr 09/20/22 16:38: POC Glucose 240 H 09/20/22 19:48: POC Glucose 274 H 09/21/22 06:30: PT 14.2, INR 1.1, APTT 38.6 H 09/21/22 06:30: WBC 10.4, RBC 2.92 L, Hgb 8.7 L, Hct 27.3 L, MCV 93.5, MCH 29.8, MCHC 31.9 L, RDW Std Deviation 43.1, RDW Coeff of Jenifer 12.6, Plt Count 283, MPV 12.3 H, Immature Gran % (Auto) 0.500, Neut % (Auto) 83.2 H, Lymph % (Auto) 6.9 L , [place] % (Auto) 7.7, Eos % (Auto) 1.0, Baso % (Auto) 0.7, Absolute Neuts (auto) 8.6 H, Absolute Lymphs (auto) 0.72 L, Nucleated RBC % 0 09/21/22 06:30: Sodium 136, Potassium 4.7, Chloride 107, Carbon Dioxide 15.0 L, Anion Gap 14, BUN 99 H, Creatinine 8.92 H*, Estim Creat Clear Calc 9.32, Est GFR (MDRD) Af Amer 8 L, Est GFR (MDRD) Non-Af 7 L, BUN/Creatinine Ratio 11.1, Glucose 285 H, Calcium 7.8 L 09/21/22 06:40: POC Glucose 274 H 09/21/22 11:26: POC Glucose 265 H Micro: Microbiology 09/17/22 15:45 Urine, Clean Catch Urine Culture - Final Culture exhibits no growth. Charges/Coding Visit Charges Inpatient E&M: 90850 Init Hosp L3
--- NOTE | 2022-09-21 13:20 | RAD_ITS ---
STUDY: X-RAY CHEST REASON FOR EXAM: Male, 57 years old. RESPIRATORY DISTRESS TECHNIQUE: Single AP portable view of the chest. COMPARISON: Comparison is made with prior study 09/16/2022. FINDINGS: EKG electrodes are seen. Persistent elevation of the right hemidiaphragm. Since prior study, there has been progressive bilateral perihilar pulmonary infiltrates. There is a small right pleural effusion with right basilar atelectasis and/or infiltration. Normal size heart. Normal mediastinum and aric. Normal visualized pulmonary arteries. Normal visualized aortic arch and descending thoracic aorta. Normal visualized thoracic spine. Normal visualized ribs, clavicles, and shoulders. There is no demonstrated abnormality of the visualized soft tissue structures of the upper abdomen. RAD/Chest 1 View (Portable) IMPRESSION: Progressive bilateral perihilar pulmonary infiltrates with a small right pleural effusion and right basilar infiltrate and/or atelectasis. Electronically Signed: Eleazar Farrar MD at 14:18 EST ,
[2022-09-21] MEDS: Furosemide 40 MG/4 ML Vial IV ×2 (13:46→18:18)
[2022-09-21 15:07] LABS: Immunoglobulin A 142 mg/dL (90-386); Immunoglobulin G 1023 mg/dL (603-1613); Immunoglobulin M 31 mg/dL (20-172)
[2022-09-21] MEDS: Atorvastatin Calcium 40 MG Tablet PO (22:39)
[2022-09-21] MEDS: Latanoprost 0.005% 1 Bottle 1 DRP OPHTHALMIC (22:46)
[2022-09-21 23:10] LABS: Bedside Glucose 232 mg/dL (74-106)
[2022-09-22] VITALS (35 sets, daily range): BP systolic 96–168; BP diastolic 54–77; PULSE 48–88; RESP 12–40; TEMP 35.6–37.6; O2SAT 66–100
--- NOTE | 2022-09-22 06:03 | PCM.PN.INT ---
Assessment & Plan Assessment/Plan (1) Acute respiratory failure with hypoxia: PLAN: Plan RECOMMENDATIONS: 1. Continue assist-control mode mechanical ventilation. Wean FiO2/PEEP for saturations greater than 90%. 2. Obtain arterial blood gas. 3. Propofol and fentanyl for sedation. 4. Continue Protonix for GI prophylaxis. 5. Place temporary hemodialysis line to facilitate dialysis and volume optimization. IMPRESSIONS: 1. Acute hypoxemic respiratory failure Appears to be secondary to hypervolemia in the setting of acute kidney injury. The patient's chest x-ray continues to demonstrate progressive bilateral pulmonary vascular congestion and a right-sided pleural effusion. The patient has been unable to lay flat to facilitate placement of a dialysis catheter. Therefore, in order to facilitate his recovery, we will proceed with intubation, which will then be followed by temporary HD line placement. My hope is that once dialysis is initiated and the patient is volume optimized, that he will be successfully weaned from invasive mechanical ventilatory support. Will obtain arterial blood gas this morning. Continue assist-control mode mechanical ventilation and wean FiO2 and PEEP to maintain saturations at or above 90%. 2. Acute kidney injury Unclear etiology. Nephrology is following to assist with medical management. The patient is in need of hemodialysis and volume optimization. Management as noted above. 3. NSTEMI The patient's echocardiogram demonstrated a depressed ejection fraction at 35% with stage III diastolic dysfunction and pulmonary hypertension. Cardiology is following to assist with medical management. He may ultimately require cardiac catheterization once hemodialysis has been initiated. 4. Diabetes mellitus/hypertension/congenital deafness/GERD Complicates care, management, recovery and prognosis. Continue home medications as indicated. TIME: 34 minutes of critical care time, inclusive of procedures, was spent addressing the patient's acute hypoxemic respiratory failure, acute kidney injury, NSTEMI, review of all data and collaboration with care team. Subjective Subjective The patient was seen and examined at the bedside this morning. Events from the last 24 hours have been reviewed. The patient is afebrile hemodynamically stable. He continues to fluctuate between BiPAP and nasal cannula oxygen. An attempt was made yesterday afternoon to place a temporary hemodialysis catheter in the patient. However, the patient was unable to tolerate the position that would be required to facilitate placement of the catheter due to respiratory distress. In order to facilitate dialysis line placement, the patient was advised that he would require intubation. He is in agreement to proceed. Intubation Indication: Respiratory failure Consent was obtained from: Patient The patient was placed in the appropriate sniffing position. Preoxygenated sedation via BiPAP was provided for a minimum of 3 minutes. The patient had continuous cardiac as well as pulse oximetry monitoring during the procedure. Procedure sedation was provided by the administration of 4 mg of Versed and 20 mg of etomidate. Direct laryngoscopy was then performed using a number 4 MAC blade, which revealed a grade 1 view. A 7.5 mm endotracheal tube was visualized advancing between the cords to the level of 22 cm at the lip. The stylette was then removed and discarded. Tube placement was confirmed by fogging in the tube along with equal and bilateral breath sounds. Colorimetric change was visualized on the CO2 meter. The cuff was then inflated and the tube secured using a commercially available device. A good pulse oximetry waveform was seen on the monitor throughout the procedure. A portable chest x-ray has been ordered to confirm appropriate placement. The patient tolerated the procedure well. Objective Data Objective Data The patient's most recent lab work, culture data and imaging studies have all been personally reviewed. Surface echocardiogram demonstrated an ejection fraction of 35% with stage III diastolic dysfunction and moderate to severe global hypokinesis of the LV. Pulmonary artery systolic pressure was estimated to be 40 mmHg. Vital Signs: Vital Signs Temp Pulse Resp BP Pulse Ox O2 Del Method O2 Flow Rate 98.4 F 88 24 H 150/72 H 91 Bi-pap 6 09/22/22 00:00 09/22/22 04:53 09/22/22 04:53 09/22/22 04:00 09/22/22 04:53 09/22/22 04:00 09/22/22 04:00 FiO2 30 09/22/22 04:53 Oxygen Flow Rate (L/min) 6 Oxygen Delivery Method Bi-pap Weight: 179 lb 10.828 oz Body Mass Index (BMI) 25.7 Intake & Output: Intake and Output for Last 24 Hours 09/20/22 09/21/22 09/22/22 23:59 23:59 23:59 Intake Total 930 / 930 120 / 240 135 / 135 Output Total 2075 / 2075 250 / 450 350 / 350 Balance -1145 / -1145 -130 / -210 -215 / -215 Lab / Micro Data Result Diagrams: 09/22/22 05:09 09/22/22 05:09 Labs: Laboratory Results - last 24 hr 09/21/22 06:30: PT 14.2, INR 1.1, APTT 38.6 H 09/21/22 06:30: WBC 10.4, RBC 2.92 L, Hgb 8.7 L, Hct 27.3 L, MCV 93.5, MCH 29.8, MCHC 31.9 L, RDW Std Deviation 43.1, RDW Coeff of Jenifer 12.6, Plt Count 283, MPV 12.3 H, Immature Gran % (Auto) 0.500, Neut % (Auto) 83.2 H, Lymph % (Auto) 6.9 L, [place] % (Auto) 7.7, Eos % (Auto) 1.0, Baso % (Auto) 0.7, Absolute Neuts (auto) 8.6 H, Absolute Lymphs (auto) 0.72 L, Nucleated RBC % 0 09/21/22 06:30: Sodium 136, Potassium 4.7, Chloride 107, Carbon Dioxide 15.0 L, Anion Gap 14, BUN 99 H, Creatinine 8.92 H*, Estim Creat Clear Calc 9.32, Est GFR (MDRD) Af Amer 8 L, Est GFR (MDRD) Non-Af 7 L, BUN/Creatinine Ratio 11.1, Glucose 285 H, Calcium 7.8 L 09/21/22 06:30: Hep Bs Antigen Non-Reactive 09/21/22 06:40: POC Glucose 274 H 09/21/22 11:26: POC Glucose 265 H 09/21/22 22:45: POC Glucose 232 H Micro: Microbiology 09/17/22 15:45 Urine, Clean Catch Urine Culture - Final Culture exhibits no growth. 09/16/22 07:05 Nasal Secretion SARS-CoV-2 & FLU Antigen (Rapid) - Final Radiography Diagnostic Testing: Radiology Impression Chest X-Ray 09/21/22 13:20 IMPRESSION: Progressive bilateral perihilar pulmonary infiltrates with a small right pleural effusion and right basilar infiltrate and/or atelectasis. Electronically Signed: Eleazar Farrar MD at 14:18 EST , Physical Exam Const Constitutional Narrative: The patient is now intubated, sedated and mechanically ventilated. HEENT normocephalic and head/scalp atraumatic Mouth: endotracheal tube in place and OG tube in place Eyes PERRL, EOMs intact bilaterally and conjunctivae normal Neck supple General: trachea midline Chest inspection of chest normal Resp Effort and Inspection: tachypneic Auscultation: rales; Negative for rhonchi or wheezes Cardio regular rate and regular rhythm GI normal to inspection, nondistended, normoactive bowel sounds Extremity no clubbing, cyanosis or edema Skin no rashes or lesions noted Neuro Sensorium / Orientation: sedated on vent Charges/Coding Procedures Hospitalists Procedures: 26138 Critial Care 1st Hr
[2022-09-22 06:04] LABS: Absolute Lymphocyte Count 0.54 X10^3/uL (0.83-4.51); Absolute Neutrophil Count 9.7 X10^3/uL (2.0-7.7); Basophil# 0.06 X10^3/uL; Basophil% 0.5 % (0-1); Eosinophil# 0.05 X10^3/uL; Eosinophils% 0.5 % (0-5); Hematocrit 28.1 % (40-54); Hemoglobin 8.8 g/dL (13.0-16.5); Lymphocyte # 0.54 X10^3/ul (0.83-4.51); Lymphocyte % 4.9 % (19-41); Mean Corp Hgb Conc 31.3 g/dL (32-36); Mean Corpuscular Hgb 29.4 pg (27.0-32.0); Mean Platelet Vol. 12.2 fl (6.2-12.0); Monocyte# 0.61 X10^3/uL; Monocyte% 5.6 % (0-10); NRBC Flagged by Analyzer 0 % (0-5); Neutrophil # 9.66 X10^3/uL (2.7-7.7); Neutrophil % 88.1 % (47-70); POSITIVE DIFFERENTIAL YES; Platelet Count 351 K/mm3 (150-450); RBC Distribution Width CV 12.8 % (11.6-14.6); RBC Distribution Width SD 43.8 fl (35.1-43.9); Red Blood Count 2.99 M/mm3 (4.6-6.2)
[2022-09-22 06:10] LABS: Differential Indicated SCAN CRITERIA MET
[2022-09-22] MEDS: Insulin Lispro 100 UNIT/ML INSULN.PEN SC ×2 (06:32→11:53)
[2022-09-22 06:40] LABS: ALB/GLOB Ratio 0.5 RATIO (0.9-2.4); AST(SGOT) 17 U/L (15-37); Alanine Aminotransfer ALT/SGPT 41 U/L (16-61); Albumin, Serum 2.1 g/dL (3.2-5.0); Alkaline Phosphatase 87 U/L (45-117); Anion Gap 17 (5-15); BUN 100 mg/dL (7-18); BUN/Creat Ratio 10.8 RATIO (10-20); Calcium,Total 8.3 mg/dL (8.5-10.1); Chloride 105 mmol/L (98-107); EST Glomerular Filtration Rate 6 mL/min (>60); Est Glom Filt Rate - Afr Amer 8 mL/min (>60); Estimated Creatinine Clearance 8.94 ml/min; Globulin 4.1 g/dL (2.2-4.2); Glucose 241 mg/dL (74-106); Potassium 4.7 mmol/L (3.5-5.1); Protein, Total 6.2 g/dL (6.4-8.2); Sodium Level 135 mmol/L (136-145)
[2022-09-22 06:55] LABS: Bedside Glucose 215 mg/dL (74-106)
[2022-09-22] MEDS: Propofol 10MG/Ml 1,000 MG/100 ML Bottle 5 MG CONT INF (07:00)
--- NOTE | 2022-09-22 07:02 | RAD_ITS ---
INDICATION: ett placement EXAMINATION: Frontal view of the chest COMPARISON: Chest x-ray from the previous day. FINDINGS: Frontal view of the chest was obtained. The endotracheal tube terminates 4 cm above the aleena. The tip of the enteric tube projects over the distal stomach. The cardiac silhouette is not enlarged. Pulmonary opacities in the perihilar and lower lungs bilaterally are grossly similar to the prior exam. A small to moderate right pleural effusion is without significant change. Probable small left pleural effusion is grossly stable. No pneumothorax. RAD/Chest 1 View (Portable) IMPRESSION: Endotracheal tube terminates 4 cm above the aleena. Bilateral pulmonary opacities are grossly stable since the prior exam. Small to moderate right and probable small left pleural effusions, stable. Electronically Signed: Jaison Garcia MD at 7:28 EST ,
--- NOTE | 2022-09-22 07:06 | NURSING ---
Dr. Olmstead and RT at bedside for RSI. 0657: HR 87, RR 24, SpO2 95% on BIPAP 30%, BP 167/80 0658: 4 mg versed IVP x1 given 0659: 20 mg etomidate IVP x1 given 0700: successfully intubated, #7.5 tube, 24 @ lip, positive color change, bilateral breath sounds. HR 83, RR 29 via ambu bag, 100% SpO2, and BP 179/140. 0702: OG placed
[2022-09-22] MEDS: Midazolam 2 MG/2 ML Syringe 4 MG IV (07:09)
[2022-09-22] MEDS: 0.9% Saline Lock 10 ML Syringe IV (07:09)
[2022-09-22] MEDS: Etomidate 20 MG/10 ML Vial IV (07:09)
--- NOTE | 2022-09-22 07:28 | NURSING ---
Pt was fighting the vent after intubation. Verbal order was given by Dr. Olmstead to increase sedation in order for pt to tolerate vent. See MAR for medication increase.
[2022-09-22 07:41] LABS: Allen Test Positive; Base Excess -17 mmol/L (-2 to +2); Bicarbonate 10.9 mmol/L (22-26); Blood Gas Specimen Type ART; FI02 60; Mode AC; O2 Delivery Device Adult Vent; PEEP 5; PO2 82 mmHG (75-100); RR 14; SITE L Radial; SO2 94 % (95-99); Total Carbon Dioxide 12 mmol/L; Vt 450; pCO2 26.2 mmHg (35-45); pH 7.23 (7.35-7.45)
--- NOTE | 2022-09-22 07:41 | PN.HOSP_ITS ---
Subjective Subjective Follow-up for nonoliguric TREVOR with pulmonary edema Patient was intubated in the morning, FiO2 60%. Tidal volume 450 mL, PEEP 5. BP high systolic 96/54. On IV propofol and fentanyl drip. Objective Data Objective Data Vital Signs: Vital Signs Temp Pulse Resp BP Pulse Ox O2 Del Method O2 Flow Rate 97.9 F 88 27 H 158/74 H 92 Bi-pap 6 09/22/22 06:00 09/22/22 06:50 09/22/22 06:50 09/22/22 06:00 09/22/22 06:50 09/22/22 06:00 09/22/22 04:00 FiO2 60 09/22/22 06:50 Oxygen Flow Rate (L/min) 6 Oxygen Delivery Method Bi-pap Weight: 182 lb 8.684 oz Body Mass Index (BMI) 25.7 Intake & Output: Intake and Output for Last 24 Hours 09/20/22 09/21/22 09/22/22 23:59 23:59 23:59 Intake Total 930 / 930 120 / 240 136.88 / 136.88 Output Total 2075 / 2075 250 / 450 350 / 350 Balance -1145 / -1145 -130 / -210 -213.12 / -213.12 Lab / Micro Data Result Diagrams: 09/22/22 05:09 09/22/22 05:09 Labs: Laboratory Results - last 24 hr 09/21/22 06:30: PT 14.2, INR 1.1, APTT 38.6 H 09/21/22 06:30: Sodium 136, Potassium 4.7, Chloride 107, Carbon Dioxide 15.0 L, Anion Gap 14, BUN 99 H, Creatinine 8.92 H*, Estim Creat Clear Calc 9.32, Est GFR (MDRD) Af Amer 8 L, Est GFR (MDRD) Non-Af 7 L, BUN/Creatinine Ratio 11.1, Glucose 285 H, Calcium 7.8 L 09/21/22 06:30: Hep Bs Antigen Non-Reactive 09/21/22 11:26: POC Glucose 265 H 09/21/22 22:45: POC Glucose 232 H 09/22/22 05:09: WBC 11.0, RBC 2.99 L, Hgb 8.8 L, Hct 28.1 L, MCV 94.0, MCH 29.4, MCHC 31.3 L, RDW Std Deviation 43.8, RDW Coeff of Jenifer 12.8, Plt Count 351, MPV 12.2 H, Immature Gran % (Auto) 0.400, Neut % (Auto) 88.1 H, Lymph % (Auto) 4.9 L , [place] % (Auto) 5.6, Eos % (Auto) 0.5, Baso % (Auto) 0.5, Absolute Neuts (auto) 9.7 H, Absolute Lymphs (auto) 0.54 L, Nucleated RBC % 0 09/22/22 05:09: Sodium 135 L, Potassium 4.7, Chloride 105, Carbon Dioxide 13.0 L , Anion Gap 17 H, BUN 100 H, Creatinine 9.30 H*, Estim Creat Clear Calc 8.94, Est GFR (MDRD) Af Amer 8 L, Est GFR (MDRD) Non-Af 6 L, BUN/Creatinine Ratio 10.8, Glucose 241 H, Calcium 8.3 L, Total Bilirubin 0.60, AST 17, ALT 41, Alkaline Phosphatase 87, Total Protein 6.2 L, Albumin 2.1 L, Globulin 4.1, Albumin/Globulin Ratio 0.5 L 09/22/22 06:29: POC Glucose 215 H Micro: Microbiology 09/17/22 15:45 Urine, Clean Catch Urine Culture - Final Culture exhibits no growth. 09/16/22 07:05 Nasal Secretion SARS-CoV-2 & FLU Antigen (Rapid) - Final ABG Data ABG results: ABG 09/22/22 07:37 Specimen Type ART Sample Site L Radial pH 7.23 L Bicarbonate Actual 10.9 L Total CO2 12 Base Excess -17 L O2 Saturation 94 L O2 % 60 ABG pCO2 26.2 L ABG pO2 82 Kev Test Positive Respiration Rate 14 O2 Delivery Device Adult Vent Vent Mode AC Tidal Volume 450 POC PEEP 5 Radiography Diagnostic Testing: Radiology Impression Chest X-Ray 09/21/22 13:20 IMPRESSION: Progressive bilateral perihilar pulmonary infiltrates with a small right pleural effusion and right basilar infiltrate and/or atelectasis. Electronically Signed: Eleazar Farrar MD at 14:18 EST , Chest X-Ray 09/22/22 07:02 IMPRESSION: Endotracheal tube terminates 4 cm above the aleena. Bilateral pulmonary opacities are grossly stable since the prior exam. Small to moderate right and probable small left pleural effusions, stable. Electronically Signed: Jaison Garcia MD at 7:28 EST , Physical Exam Narrative Physical exam General:Intubated, on vent, sedated HEENT: Atraumatic, PERRLA, EOMI, Normocephalic Oral: ET and OG tube Neck: Supple, No JVD, Negative Carotid Bruits Lungs: Air entry diminished in bilateral lung bases. B/L crepts. on vent support Cardiovascular: Sinus Rhythm with PVCs, Normal S1, Normal S2, No murmurs Abdomen: Bowel Sounds Present, Soft, Non Tender, Non-Distended : Lopez catheter, UOP Clear, 250 ml No renal angle tenderness. No suprapubic tenderness. Extremities: No edema, Capillary Refill Less than 3 Seconds Skin: No rashes, No breakdown Musculoskeletal: No Tenderness to Palpation of Joints or Extremities Neurological: Cranial nerves II-XII grossly intact, DTR 2+/4. Psych/Mental Status: Sedated. Assessment & Plan Assessment/Plan (1) Non-ST elevated myocardial infarction (non-STEMI): PLAN: Troponins were 1211. Patient did have some ST depressions in the inferior leads. Echocardiogram shows an EF of 35% with stage III diastolic dysfunction and moderate to severe global hypokinesis of the left ventricle. Pulmonary artery systolic pressure of 40 mmHg. Plan: * Discontinue heparin drip * cardiology following, recommended baby aspirin, amlodipine, metoprolol and as needed hydralazine * Given his kidney function there is no current plans for cardiac catheterization until his kidney function is stabilized/hemodialyzed (2) Acute renal failure: PLAN: Nonoliguric through [facility] I was able to see patient had a BMP on February 19, 2021 and his creatinine at that time was 1.66. I do not see any additional BMPs in the interim. Unclear if this is been just a chronic progression since then or this is been an acute worsening Renal ultrasound showed some medical renal disease Fractional excretion of sodium is 3.56% Plan: Losartan on hold. Discussed with the information management specialist. Patient had a scheduled renal biopsy and tunneled hemodialysis catheter which was canceled due to respiratory distress. Patient has NON-anion gap metabolic acidosis, bicarb 15, chloride 107. Creatinine 8.92. 09/22:Chest x-ray portable shows bilateral pulmonary edema and right-sided pleural effusion. Patient had temporary dialysis catheter through right IJ. Dialysis orders started. Discussed with the information management specialist. 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 Blood sugars elevated but patient is not currently in DKA Continue with basal insulin to 25 units daily and his prandial insulin is at 38 but I will change it over 30 but also have a sliding scale insulin. Last A1c from September 14 was 7 Patient did have hypoglycemic down to 19 yesterday. Glargine was discontinued. We will need to reintroduce but hold off on the high-dose prandial insulin the patient was receiving. (5) Congenital deafness: PLAN: Apparently all the information that the stepson told me about the patient not be able to read or read lips is not accurate. Was able to communicate to the patient by talking to him directly and he expressed understanding. I did have to repeat some things but he did grasp understanding. (6) Acute respiratory failure with hypoxia: PLAN: 09/21: Patient had respiratory distress, tachypnea and hypoxia on 1 L of oxygen. First kidney biopsy was canceled as pertinent could not lay down prone or on sideways and then thrombolysis of catheter for same region. Subsequently patient was transferred to ICU. Pasting Machine Operator consult requested. Patient initially needs to be tried on NIPPV and if cannot salvage will need intubation. I requested Dr. Arteaga for temporary dialysis but he said information management specialist can put it. Chest x-ray stat ordered 10/10 patient was intubated in the morning. On IV propofol and fentanyl drip. (7) Cardiomyopathy: PLAN: EF of 35% Unclear etiology More definitive cardiac evaluation, including cardiac catheterization on hold pending kidney evaluation Not a candidate for ANIA inhibitors nor angiotensin receptor blockers given acute kidney injury PLAN: Plan VTE prophylaxis: Not indicated as patient will be anticoagulated. The patient's sister and father both can hear. They state that the patient was born with congenital deafness and they tried to see if there is anything that could be remedied by going to different facilities but said there is nothing that could be done. They report that the patient read lips poorly and reads basic simple written commands or questions. Charges/Coding Visit Charges Inpatient E&M: 75980 Subs Hosp L3
[2022-09-22 07:50] LABS: CPK Total, Creatine Kinase 324 U/L (39-308); Triglycerides 202 mg/dL
--- NOTE | 2022-09-22 09:38 | RAD_ITS ---
STUDY: X-RAY CHEST REASON FOR EXAM: Male, 57 years old. Dialysis catheter placement TECHNIQUE: Single AP portable view of the chest. COMPARISON: Comparison is made with prior examination dated 06/23/2022 at 7:14 AM. FINDINGS: A right-sided dialysis catheter has been placed. The tip is at the junction of the superior vena cava and right atrium. An endotracheal tube is seen with the tip at 2.5 cm proximal to the aleena. An orogastric tube is seen with the tip in the body of the stomach. EKG electrodes are seen. Since prior study, there has been improved aeration of both lungs with residual bilateral perihilar infiltrates. Small right pleural effusion with right basilar atelectasis. Atelectasis at the left lung base with blunting of the left proximal phrenic angle. Normal size heart. Normal mediastinum and aric. Normal visualized pulmonary arteries. Normal visualized aortic arch and descending thoracic aorta. Normal visualized thoracic spine. Normal visualized ribs, clavicles, and shoulders. There is no demonstrated abnormality of the visualized soft tissue structures of the upper abdomen. RAD/Chest 1 View (Portable) IMPRESSION: The tip of the right dialysis catheter is at the junction of the superior vena cava and right atrium. Improved aeration of both lungs although residual changes persist as described. Electronically Signed: Eleazar Farrar MD at 10:22 EST ,
--- NOTE | 2022-09-22 09:50 | PCM.OP.BLANK ---
Operative Report Date of Procedure: 09/22/22 Temporary hemodialysis catheter placement procedure note Indication:hemodialysis Procedure: A time-out was completed to verify correct patient, indication, medication allergies, procedure, coagulation studies, informed consent signed, and equipment needed. The patient was placed in the supine position for a central line placement to the rt IJ vein. The patients rt neck was prepped using chlorhexidine and a full body sterile drape was applied. 1% lidocaine was used to anesthetize the surrounding skin. A 12fr 16 cm blue guard triple lumen catheter introduced into the internal jugular vein using the modified Seldinger technique with the assistance of ultrasound. The site was dilated up twice in a stepwise fashion. The catheter was threaded smoothly over the guidewire, the guidewire was removed easily, nonpulsatile blood returned. All ports were aspirated of air and flushed with sterile saline and locked with U1000 Heparin. The catheter was sutured in place and covered with an occlusive dressing impregnated with chlorhexidine. Post-procedure: The patient tolerated the procedure well. Vital signs remained stable. EBL 5cc. No complications. Chest X Ray ordered to confirm tip placement and the absence of pneumothorax. Procedures Hospitalists Procedures: 01198 Insert Non-tunnel CV Cath
--- NOTE | 2022-09-22 09:57 | PN.RENAL_ITS ---
Subjective Subjective Following for TREVOR on CKD. The patient is now intubated/sedated. Cannot do ROS. The patient is seen during hemodialysis treatment. Events of last 24 hours reviewed and discussed with Dr. Olmstead. Objective Data Objective Data Vital Signs: Vital Signs Temp Pulse Resp BP Pulse Ox O2 Del Method O2 Flow Rate 97.9 F 88 27 H 158/74 H 92 Bi-pap 6 09/22/22 06:00 09/22/22 06:50 09/22/22 06:50 09/22/22 06:00 09/22/22 06:50 09/22/22 06:00 09/22/22 04:00 FiO2 60 09/22/22 06:50 Oxygen Flow Rate (L/min) 6 Oxygen Delivery Method Bi-pap Weight: 82.8 kg Body Mass Index (BMI) 25.7 Intake & Output: Intake and Output for Last 24 Hours 09/20/22 09/21/22 09/22/22 23:59 23:59 23:59 Intake Total 930 / 930 120 / 240 136.88 / 136.88 Output Total 2075 / 2075 250 / 450 350 / 350 Balance -1145 / -1145 -130 / -210 -213.12 / -213.12 Lab / Micro Data Result Diagrams: 09/22/22 05:09 09/22/22 05:09 Labs: Laboratory Results - last 24 hr 09/21/22 06:30: Hep Bs Antigen Non-Reactive 09/21/22 11:26: POC Glucose 265 H 09/21/22 22:45: POC Glucose 232 H 09/22/22 05:09: WBC 11.0, RBC 2.99 L, Hgb 8.8 L, Hct 28.1 L, MCV 94.0, MCH 29.4, MCHC 31.3 L, RDW Std Deviation 43.8, RDW Coeff of Jenifer 12.8, Plt Count 351, MPV 12.2 H, Immature Gran % (Auto) 0.400, Neut % (Auto) 88.1 H, Lymph % (Auto) 4.9 L , [place] % (Auto) 5.6, Eos % (Auto) 0.5, Baso % (Auto) 0.5, Absolute Neuts (auto) 9.7 H, Absolute Lymphs (auto) 0.54 L, Nucleated RBC % 0 09/22/22 05:09: Sodium 135 L, Potassium 4.7, Chloride 105, Carbon Dioxide 13.0 L , Anion Gap 17 H, BUN 100 H, Creatinine 9.30 H*, Estim Creat Clear Calc 8.94, Est GFR (MDRD) Af Amer 8 L, Est GFR (MDRD) Non-Af 6 L, BUN/Creatinine Ratio 10.8, Glucose 241 H, Calcium 8.3 L, Total Bilirubin 0.60, AST 17, ALT 41, Alkaline Phosphatase 87, Total Protein 6.2 L, Albumin 2.1 L, Globulin 4.1, Albumin/Globulin Ratio 0.5 L 09/22/22 05:09: Total Creatine Kinase 324 H, Triglycerides 202 H 09/22/22 06:29: POC Glucose 215 H Micro: Microbiology 09/17/22 15:45 Urine, Clean Catch Urine Culture - Final Culture exhibits no growth. 09/16/22 07:05 Nasal Secretion SARS-CoV-2 & FLU Antigen (Rapid) - Final ABG Data ABG results: ABG 09/22/22 07:37 Specimen Type ART Sample Site L Radial pH 7.23 L Bicarbonate Actual 10.9 L Total CO2 12 Base Excess -17 L O2 Saturation 94 L O2 % 60 ABG pCO2 26.2 L ABG pO2 82 Kev Test Positive Respiration Rate 14 O2 Delivery Device Adult Vent Vent Mode AC Tidal Volume 450 POC PEEP 5 Radiography Diagnostic Testing: Radiology Impression Chest X-Ray 09/21/22 13:20 IMPRESSION: Progressive bilateral perihilar pulmonary infiltrates with a small right pleural effusion and right basilar infiltrate and/or atelectasis. Electronically Signed: Eleazar Farrar MD at 14:18 EST , Chest X-Ray 09/22/22 07:02 IMPRESSION: Endotracheal tube terminates 4 cm above the aleena. Bilateral pulmonary opacities are grossly stable since the prior exam. Small to moderate right and probable small left pleural effusions, stable. Electronically Signed: Jaison Garcia MD at 7:28 EST , Physical Exam Narrative Intubated and sedated S1, S2, RRR Lung sounds coarse anteriorly. He is on mechanical ventilator. Abdomen is nontender, positive bowel sounds No significant edema Assessment & Plan Assessment/Plan (1) TREVOR (acute kidney injury): (2) Metabolic acidosis: (3) Benign essential hypertension: (4) Acute respiratory failure with hypoxia: (5) Type 1 diabetes: PLAN: Plan Impression/Plan: The patient is a 57-year-old man with past history of type 1 diabetes mellitus, congenital deafness, hypertension, hyperlipidemia, stroke, and GERD. The patient was admitted to the hospital on 09/16/2022 with hypertensive urgency, dyspnea and NSTEMI. The patient has had a progressive loss of renal function and is started on dialysis on 09/22/2022. Nephrology is following for dialysis dependent TREVOR on CKD. Acute kidney injury on chronic kidney disease, unspecified stage. Baseline renal function is unclear although there is notation that serum creatinine was 1.60 mg/dL in 2020. The last available serum creatinine in [facility] was from 04/22/2014 at 1.3 mg/dL. Suspect the patient has underlying diabetic kidney disease. He is proteinuric in nephrotic range and has had longstanding, poorly controlled diabetes with retinopathy. It is possible that we are seeing progression of diabetic kidney disease towards ESRD. However, it would have been nice to get a tissue biopsy to find out for sure if there is reversible TREVOR, particularly to determine prognosis for the patient. Unfortunately, biopsy could not be done yesterday because of patient's respiratory status and anxiety. For now, we will dialyze the patient and remove fluid to help with his respiratory status. Given the severity of presenting TREVOR, I would recommend placing tunneled dialysis catheter while we can control his airway on ventilator. We can then determine if kidney biopsy can be done later. I supervised the dialysis procedure today: F160 dialyzer is used on 2.5-hour treatment. 3K dialysate is used. 250 mL/min blood flow, 500 dialysate flow. We will try to remove 2 L with dialysis today. Plan on dialysis again with longer treatment time tomorrow and on 09/24/2022. Metabolic acidosis. Serum bicarbonate level is lower today at 13 mmol/L. Acidosis is likely due to renal failure. There has been no diarrhea. Serum bicarbonate level should improve with hemodialysis. Recheck serum bicarbonate level tomorrow. Hypertension. BP was as high as 207/124 on 09/16/2022. BP is now controlled. He is on amlodipine at 5 mg/day and metoprolol at 50 mg twice a day. Anemia. Hemoglobin is low but stable at 8.8 g/dL today. Check iron studies tomorrow to see if he would benefit from INOCENCIO. Acute hypoxic respiratory failure. The patient is intubated on 09/22/2022. He is on mechanical ventilator. We will keep O>I with hemodialysis. Plan on ultrafiltrating 2 L today. Nephrology plan discussed with Dr. Olmstead and Dr. Herrera.
[2022-09-22] MEDS: Propofol 10MG/Ml 1,000 MG/100 ML Bottle 19.9 MG CONT INF (11:00)
[2022-09-22 11:28] LABS: Hepatitis B Surface Antibody Non-Reactive; Hepatitis B Surface Antigen Non-Reactive (Nonreactive)
[2022-09-22] MEDS: Insulin Glargine-YFGN 100 UNIT/ML Pen 20 UNIT SC (11:53)
[2022-09-22] MEDS: Dorzolamide HCL/Timolol 10 ml Bottle 1 DRP OPHTHALMIC ×2 (11:54→21:58)
[2022-09-22] MEDS: Heparin 10,000 UNITS/10 ML Vial 10000 UNITS IV (11:55)
[2022-09-22] MEDS: Chlorhexidine 15 ML PO ×2 (11:55→21:57)
[2022-09-22 12:01] LABS: Bedside Glucose 173 mg/dL (74-106)
--- NOTE | 2022-09-22 12:29 | EKG12_ITS ---
Test Reason : ST ELEVATION Blood Pressure : / mmHG Vent. Rate : 064 BPM Atrial Rate : 064 BPM P-R Int : 146 ms QRS Dur : 100 ms QT Int : 442 ms P-R-T Axes : 067 067 233 degrees QTc Int : 455 ms Normal sinus rhythm Left ventricular hypertrophy with repolarization abnormality Abnormal ECG Confirmed by MACI HERMOSILLO, ZEINAB ([id number]), publications editor EMMANUEL NEWMAN ([id number]) on 09/26/2022 7:45:44 AM Referred By: EDWIN Confirmed By:ZEINAB LUX MD
--- NOTE | 2022-09-22 13:04 | DIALYSIS ---
Hemodialysis complete via RIJ temporary dialysis CVC, both lumens patent. 1150ml fluid removed. Pt tolerated treatment without difficulty.
[2022-09-22] MEDS: Heparin 10,000 UNITS/10 ML Vial 2600 UNITS IV (13:15)
[2022-09-22] MEDS: Acetaminophen 650 MG/20 ML UDC 1000 MG GT ×2 (13:16→21:57)
[2022-09-22 17:00] LABS: Complement C3 108 mg/dL (82-167)
[2022-09-22] MEDS: Propofol 10MG/Ml 1,000 MG/100 ML Bottle 9.9 MG CONT INF (17:07)
[2022-09-22 17:35] LABS: Bedside Glucose 122 mg/dL (74-106)
[2022-09-22] MEDS: Latanoprost 0.005% 1 Bottle 1 DRP OPHTHALMIC (21:58)
[2022-09-22] MEDS: Atorvastatin Calcium 40 MG Tablet GT (21:59)
[2022-09-22 22:25] LABS: Bedside Glucose 70 mg/dL (74-106)
[2022-09-22] MEDS: guaiFENesin 10 ML UDC (200MG/10ML) PO (22:56)
[2022-09-22] MEDS: Dextrose 50%-Water 25 GM/50 ML DISP.SYRIN IV (23:06)
[2022-09-22 23:21] LABS: Bedside Glucose 75 mg/dL (74-106)
[2022-09-23] VITALS (40 sets, daily range): BP systolic 88–138; BP diastolic 47–63; PULSE 51–70; RESP 14–17; TEMP 36.7–37.5; O2SAT 89–100
[2022-09-23 01:55] LABS: Bedside Glucose 144 mg/dL (74-106)
[2022-09-23] MEDS: Propofol 10MG/Ml 1,000 MG/100 ML Bottle 9.9 MG CONT INF ×3 (02:05→20:40)
[2022-09-23 03:48] LABS: Albumin, Serum 1.8 g/dL (3.2-5.0); BUN 62 mg/dL (7-18); BUN/Creat Ratio 8.7 RATIO (10-20); Calcium,Total 7.8 mg/dL (8.5-10.1); Chloride 106 mmol/L (98-107); EST Glomerular Filtration Rate 9 mL/min (>60); Est Glom Filt Rate - Afr Amer 10 mL/min (>60); Estimated Creatinine Clearance 11.71 ml/min; Ferritin 178 ng/mL (26-388); Glucose 160 mg/dL (74-106); Iron 32 ug/dL (65-175); Iron Binding Capacity,Total 160 ug/dL (250-450); Phosphorus 6.8 mg/dL (2.5-4.9); Potassium 3.7 mmol/L (3.5-5.1); Sodium Level 139 mmol/L (136-145)
--- NOTE | 2022-09-23 05:35 | NURSING ---
During awakening trial, pt became very agitated and was coughing very hard and fighting the ventilator. Pt also threw up twice around his tube and had some bright red bloody secretions out of ETT w/ desaturations in the low 80s. Propofol turned back on and fentanyl increased.
[2022-09-23] MEDS: 0.9% Saline Lock 10 ML Syringe IV (05:53)
[2022-09-23] MEDS: Acetaminophen 650 MG/20 ML UDC 1000 MG GT ×3 (06:22→20:57)
[2022-09-23] MEDS: guaiFENesin 10 ML UDC (200MG/10ML) PO ×4 (06:22→23:15)
[2022-09-23 06:45] LABS: Bedside Glucose 113 mg/dL (74-106)
--- NOTE | 2022-09-23 06:47 | PN.CC_ITS ---
Assessment & Plan Assessment/Plan (1) Acute respiratory failure with hypoxia: PLAN: Plan RECOMMENDATIONS: 1. Continue assist-control mode mechanical ventilation. Wean FiO2/PEEP for saturations greater than 90%. 2. Start empiric antimicrobials to cover for potential aspiration pneumonia. 3. Propofol and fentanyl for sedation. 4. Continue Protonix for GI prophylaxis. 5. Ongoing dialysis support per nephrology recommendations. 6. Tentative plans for tunneled dialysis catheter placement on Wednesday. IMPRESSIONS: 1. Acute hypoxemic respiratory failure Appears to be secondary to hypervolemia in the setting of acute kidney injury. The patient's chest x-ray continues to demonstrate progressive bilateral pulmonary vascular congestion and a right-sided pleural effusion. The patient has been unable to lay flat to facilitate placement of a dialysis catheter. Therefore, he was intubated on September 22, in order to facilitate placement of a temporary HD line and subsequent dialysis support. Plan to continue volume optimization through hemodialysis per nephrology recommendations. Tentatively, the patient will remain intubated until his tunneled dialysis catheter can be placed successfully on Wednesday. Given that he did experience several episodes of emesis, he has been started on empiric antimicrobials to cover for aspiration. For now, the patient will remain on assist control mode of mechanical ventilation. Plan to wean FiO2 and PEEP to maintain saturations at or above 90%. 2. Acute kidney injury Unclear etiology. Nephrology is following to assist with medical management. The patient is in need of hemodialysis and volume optimization. Management as noted above. 3. NSTEMI The patient's echocardiogram demonstrated a depressed ejection fraction at 35% with stage III diastolic dysfunction and pulmonary hypertension. Cardiology is following to assist with medical management. He may ultimately require cardiac catheterization once medically stabilized. 4. Diabetes mellitus/hypertension/congenital deafness/GERD Complicates care, management, recovery and prognosis. Continue home medications as indicated. TIME: 33 minutes of critical care time, inclusive of procedures, was spent addressing the patient's acute hypoxemic respiratory failure, acute kidney injury, NSTEMI, review of all data and collaboration with care team. Subjective Subjective The patient was seen and examined at the bedside this morning. Events from the last 24 hours have been reviewed. The patient is currently afebrile, hemodynamically stable and maintaining appropriate oxygen saturations on assist control mode mechanical ventilation with an FiO2 requirement of 30% and PEEP of 5. The patient did tolerate dialysis yesterday with 1.1 L fluid removed. According to nursing staff, the patient did have 2 emesis events overnight. He is currently documented to be overall net +2.3 L for the hospitalization. The patient has had bloody secretions from his endotracheal tube. Objective Data Objective Data The patient's most recent lab work, culture data and imaging studies have all been personally reviewed. Surface echocardiogram demonstrated an ejection fraction of 35% with stage III diastolic dysfunction and moderate to severe global hypokinesis of the LV. Pulmonary artery systolic pressure was estimated to be 40 mmHg. Sputum culture is pending. Vital Signs: Vital Signs Temp Pulse Resp BP Pulse Ox O2 Del Method O2 Flow Rate 99.5 F H 64 14 109/57 L 93 Mechanical Ventilator 6 09/23/22 06:00 09/23/22 06:00 09/23/22 06:00 09/23/22 06:00 09/23/22 06:00 09/23/22 06:00 09/22/22 04:00 FiO2 30 09/23/22 06:00 Oxygen Flow Rate (L/min) 6 Oxygen Delivery Method Mechanical Ventilator Weight: 180 lb 12.465 oz Body Mass Index (BMI) 25.7 Intake & Output: Intake and Output for Last 24 Hours 09/21/22 09/22/22 09/23/22 23:59 23:59 23:59 Intake Total 120 / 240 652.15 / 674.55 187.55 / 187.55 Output Total 250 / 450 2585 / 2585 600 / 600 Balance -130 / -210 -1932.85 / -1910.45 -412.45 / -412.45 Lab / Micro Data Attestation: I reviewed the patient's lab results. Result Diagrams: 09/22/22 05:09 09/23/22 03:22 Labs: Laboratory Results - last 24 hr 09/18/22 05:55: IgG 1023, IgA 142, IgM 31, Serum Immunofixation Comment, Complement C3 108 09/22/22 05:09: Total Creatine Kinase 324 H, Triglycerides 202 H 09/22/22 06:29: POC Glucose 215 H 09/22/22 10:25: Hep Bs Antigen Non-Reactive, Hep Bs Antibody Non-Reactive 09/22/22 11:41: POC Glucose 173 H 09/22/22 17:12: POC Glucose 122 H 12/13/22 22:03: POC Glucose 70 L 09/22/22 23:01: POC Glucose 75 09/23/22 01:35: POC Glucose 144 H 09/23/22 03:22: Sodium 139, Potassium 3.7, Chloride 106, Carbon Dioxide 23.0, BUN 62 H, Creatinine 7.10 H, Estim Creat Clear Calc 11.71, Est GFR (MDRD) Af A hill 10 L, Est GFR (MDRD) Non-Af 9 L, BUN/Creatinine Ratio 8.7 L, Glucose 160 H, Calcium 7.8 L, Phosphorus 6.8 H, Iron 32 L, TIBC 160 L, Iron Saturation 20.0, Ferritin 178, Albumin 1.8 L 09/23/22 05:54: POC Glucose 113 H Micro: Microbiology 09/22/22 07:20 Sputum, Induced/Lukens Gram Stain - Final 09/17/22 15:45 Urine, Clean Catch Urine Culture - Final Culture exhibits no growth. 09/16/22 07:05 Nasal Secretion SARS-CoV-2 & FLU Antigen (Rapid) - Final ABG Data ABG results: ABG 09/22/22 07:37 Specimen Type ART Sample Site L Radial pH 7.23 L Bicarbonate Actual 10.9 L Total CO2 12 Base Excess -17 L O2 Saturation 94 L O2 % 60 ABG pCO2 26.2 L ABG pO2 82 Kev Test Positive Respiration Rate 14 O2 Delivery Device Adult Vent Vent Mode AC Tidal Volume 450 POC PEEP 5 Radiography Diagnostic Testing: Radiology Impression Chest X-Ray 09/22/22 07:02 IMPRESSION: Endotracheal tube terminates 4 cm above the aleena. Bilateral pulmonary opacities are grossly stable since the prior exam. Small to moderate right and probable small left pleural effusions, stable. Electronically Signed: Jaison Garcia MD at 7:28 EST , Chest X-Ray 09/22/22 09:38 IMPRESSION: The tip of the right dialysis catheter is at the junction of the superior vena cava and right atrium. Improved aeration of both lungs although residual changes persist as described. Electronically Signed: Eleazar Farrar MD at 10:22 EST , Physical Exam Const Constitutional Narrative: Intubated, sedated and mechanically ventilated. No ventilator dyssynchrony. HEENT normocephalic and head/scalp atraumatic Mouth: endotracheal tube in place and OG tube in place Eyes PERRL, EOMs intact bilaterally and conjunctivae normal Neck supple Neck Narrative: Right IJ temporary hemodialysis catheter. General: trachea midline Chest inspection of chest normal Resp Auscultation: diminished lung sounds; Negative for rales, rhonchi or wheezes Cardio regular rate and regular rhythm GI normal to inspection, nondistended, normoactive bowel sounds Extremity no clubbing, cyanosis or edema Skin no rashes or lesions noted Neuro Sensorium / Orientation: sedated on vent Charges/Coding Procedures Hospitalists Procedures: 91934 Critial Care 1st Hr
--- NOTE | 2022-09-23 08:37 | PCM.PN.HOSP ---
Subjective Subjective Follow-up for pulmonary edema, acute hypoxic respiratory failure. Objective Data Objective Data Vital Signs: Vital Signs Temp Pulse Resp BP Pulse Ox O2 Del Method O2 Flow Rate 99.4 F H 58 L 14 106/54 L 94 Mechanical Ventilator 6 09/23/22 07:00 09/23/22 07:30 09/23/22 07:00 09/23/22 07:00 09/23/22 07:00 09/23/22 07:00 09/22/22 04:00 FiO2 40 09/23/22 07:00 Oxygen Flow Rate (L/min) 6 Oxygen Delivery Method Mechanical Ventilator Weight: 180 lb 12.465 oz Body Mass Index (BMI) 25.7 Intake & Output: Intake and Output for Last 24 Hours 09/21/22 09/22/22 09/23/22 23:59 23:59 23:59 Intake Total 120 / 240 652.15 / 674.55 214.97 / 214.97 Output Total 250 / 450 2585 / 2585 600 / 600 Balance -130 / -210 -1932.85 / -1910.45 -385.03 / -385.03 Lab / Micro Data Result Diagrams: 09/22/22 05:09 09/23/22 03:22 Labs: Laboratory Results - last 24 hr 09/18/22 05:55: IgG 1023, IgA 142, IgM 31, Serum Immunofixation Comment, Complement C3 108 09/22/22 10:25: Hep Bs Antigen Non-Reactive, Hep Bs Antibody Non-Reactive 09/22/22 11:41: POC Glucose 173 H 09/22/22 17:12: POC Glucose 122 H 09/22/22 22:03: POC Glucose 70 L 09/22/22 23:01: POC Glucose 75 09/23/22 01:35: POC Glucose 144 H 09/23/22 03:22: Sodium 139, Potassium 3.7, Chloride 106, Carbon Dioxide 23.0, BUN 62 H, Creatinine 7.10 H, Estim Creat Clear Calc 11.71, Est GFR (MDRD) Af Amer 10 L, Est GFR (MDRD) Non-Af 9 L, BUN/Creatinine Ratio 8.7 L, Glucose 160 H, Calcium 7.8 L, Phosphorus 6.8 H, Iron 32 L, TIBC 160 L, Iron Saturation 20.0, Ferritin 178, Albumin 1.8 L 09/23/22 05:54: POC Glucose 113 H Micro: Microbiology 09/22/22 07:20 Sputum, Induced/Lukens Gram Stain - Final 09/17/22 15:45 Urine, Clean Catch Urine Culture - Final Culture exhibits no growth. 09/16/22 07:05 Nasal Secretion SARS-CoV-2 & FLU Antigen (Rapid) - Final Radiography Diagnostic Testing: Radiology Impression Chest X-Ray 09/22/22 09:38 IMPRESSION: The tip of the right dialysis catheter is at the junction of the superior vena cava and right atrium. Improved aeration of both lungs although residual changes persist as described. Electronically Signed: Eleazar Farrar MD at 10:22 EST , Physical Exam Narrative Physical exam Patient is going to be dialyzed today. Still intubated. Plan for tunneled dialysis catheter on Wednesday. General:Intubated, on vent, sedated HEENT: Atraumatic, PERRLA, EOMI, Normocephalic Oral: ET and OG tube Neck: Supple, No JVD, Negative Carotid Bruits Lungs: Air entry diminished in bilateral lung bases. No crepts on vent support Cardiovascular: Sinus Rhythm with PVCs, Normal S1, Normal S2, No murmurs Abdomen: Bowel Sounds Present, Soft, Non Tender, Non-Distended : Lopez catheter, No renal angle tenderness. No suprapubic tenderness. Extremities: No edema, Capillary Refill Less than 3 Seconds Skin: No rashes, No breakdown Musculoskeletal: No Tenderness to Palpation of Joints or Extremities Neurological: Cranial nerves II-XII grossly intact, DTR 2+/4. Psych/Mental Status: Sedated. Assessment & Plan Assessment/Plan (1) Non-ST elevated myocardial infarction (non-STEMI): PLAN: Troponins were 1211. Patient did have some ST depressions in the inferior leads. Echocardiogram shows an EF of 35% with stage III diastolic dysfunction and moderate to severe global hypokinesis of the left ventricle. Pulmonary artery systolic pressure of 40 mmHg. Plan: Discontinue heparin drip cardiology following, recommended baby aspirin, amlodipine, metoprolol and as needed hydralazine Given his kidney function there is no current plans for cardiac catheterization until his kidney function is stabilized/hemodialyzed 09/23: Plan will be cardiac cath when he is well compensated in regards to pulmonary edema. (2) Acute renal failure: PLAN: Nonoliguric through [facility] I was able to see patient had a BMP on February 19, 2021 and his creatinine at that time was 1.66. I do not see any additional BMPs in the interim. Unclear if this is been just a chronic progression since then or this is been an acute worsening Renal ultrasound showed some medical renal disease Fractional excretion of sodium is 3.56% Plan: Losartan on hold. Discussed with the water safety teacher. Patient had a scheduled renal biopsy and tunneled hemodialysis catheter which was canceled due to respiratory distress. Patient has NON-anion gap metabolic acidosis, bicarb 15, chloride 107. Creatinine 8.92. 09/22:Chest x-ray portable shows bilateral pulmonary edema and right-sided pleural effusion. Patient had temporary dialysis catheter through right IJ. Dialysis orders started. Discussed with the water safety teacher. 09/23: Plan for Dialysis Today. Discussed with the [facility] Director. Tunneled dialysis catheter posted for Wednesday. 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 Blood sugars elevated but patient is not currently in DKA Continue with basal insulin to 25 units daily and his prandial insulin is at 38 but I will change it over 30 but also have a sliding scale insulin. Last A1c from September 14 was 7 Patient did have hypoglycemic down to 19 yesterday. Glargine was discontinued. We will need to reintroduce but hold off on the high-dose prandial insulin the patient was receiving. (5) Congenital deafness: PLAN: Apparently all the information that the stepson told me about the patient not be able to read or read lips is not accurate. Was able to communicate to the patient by talking to him directly and he expressed understanding. I did have to repeat some things but he did grasp understanding. (6) Acute respiratory failure with hypoxia: PLAN: 09/21: Patient had respiratory distress, tachypnea and hypoxia on 1 L of oxygen. First kidney biopsy was canceled as pertinent could not lay down prone or on sideways and then thrombolysis of catheter for same region. Subsequently patient was transferred to ICU. Financial Aid Advisor consult requested. Patient initially needs to be tried on NIPPV and if cannot salvage will need intubation. I requested Dr. Arteaga for temporary dialysis but he said water safety teacher can put it. Chest x-ray stat ordered 10/10 patient was intubated in the morning. On IV propofol and fentanyl drip. (7) Cardiomyopathy: PLAN: EF of 35% Unclear etiology More definitive cardiac evaluation, including cardiac catheterization on hold pending kidney evaluation Not a candidate for ANIA inhibitors nor angiotensin receptor blockers given acute kidney injury PLAN: Plan VTE prophylaxis: Not indicated as patient will be anticoagulated. The patient's sister and father both can hear. They state that the patient was born with congenital deafness and they tried to see if there is anything that could be remedied by going to different facilities but said there is nothing that could be done. They report that the patient read lips poorly and reads basic simple written commands or questions. Charges/Coding Visit Charges Inpatient E&M: 95390 Subs Hosp L3
--- NOTE | 2022-09-23 09:12 | PCM.PN.REN ---
Subjective Subjective Intubated. Seen and examined on dialysis. Objective Data Objective Data Vital Signs: Vital Signs Temp Pulse Resp BP Pulse Ox O2 Del Method O2 Flow Rate 99.4 F H 63 14 106/54 L 95 Mechanical Ventilator 6 09/23/22 08:00 09/23/22 08:00 09/23/22 08:00 09/23/22 08:00 09/23/22 08:00 09/23/22 08:08 09/22/22 04:00 FiO2 40 09/23/22 08:08 Oxygen Flow Rate (L/min) 6 Oxygen Delivery Method Mechanical Ventilator Weight: 82 kg Body Mass Index (BMI) 25.7 Intake & Output: Intake and Output for Last 24 Hours 09/21/22 09/22/22 09/23/22 23:59 23:59 23:59 Intake Total 120 / 240 652.15 / 674.55 214.97 / 214.97 Output Total 250 / 450 2585 / 2585 600 / 600 Balance -130 / -210 -1932.85 / -1910.45 -385.03 / -385.03 Lab / Micro Data Result Diagrams: 09/22/22 05:09 09/23/22 03:22 Labs: Laboratory Results - last 24 hr 09/18/22 05:55: IgG 1023, IgA 142, IgM 31, Serum Immunofixation Comment, Complement C3 108 09/22/22 10:25: Hep Bs Antigen Non-Reactive, Hep Bs Antibody Non-Reactive 09/22/22 11:41: POC Glucose 173 H 09/22/22 17:12: POC Glucose 122 H 09/22/22 22:03: POC Glucose 70 L 09/22/22 23:01: POC Glucose 75 09/23/22 01:35: POC Glucose 144 H 09/23/22 03:22: Sodium 139, Potassium 3.7, Chloride 106, Carbon Dioxide 23.0, BUN 62 H, Creatinine 7.10 H, Estim Creat Clear Calc 11.71, Est GFR (MDRD) Af Amer 10 L, Est GFR (MDRD) Non-Af 9 L, BUN/Creatinine Ratio 8.7 L, Glucose 160 H, Calcium 7.8 L, Phosphorus 6.8 H, Iron 32 L, TIBC 160 L, Iron Saturation 20.0, Ferritin 178, Albumin 1.8 L 09/23/22 05:54: POC Glucose 113 H Micro: Microbiology 09/22/22 07:20 Sputum, Induced/Lukens Gram Stain - Final 09/17/22 15:45 Urine, Clean Catch Urine Culture - Final Culture exhibits no growth. 09/16/22 07:05 Nasal Secretion SARS-CoV-2 & FLU Antigen (Rapid) - Final Radiography Diagnostic Testing: Radiology Impression Chest X-Ray 09/22/22 09:38 IMPRESSION: The tip of the right dialysis catheter is at the junction of the superior vena cava and right atrium. Improved aeration of both lungs although residual changes persist as described. Electronically Signed: Eleazar Farrar MD at 10:22 EST , Physical Exam Narrative Intubated and sedated S1, S2, RRR Lung sounds clear anteriorly. He is on mechanical ventilator. Abdomen is nontender, positive bowel sounds No significant edema right non-tunneled HD catheter dressing C/D/I Assessment & Plan Assessment/Plan (1) TREVOR (acute kidney injury): (2) Metabolic acidosis: (3) Benign essential hypertension: (4) Acute respiratory failure with hypoxia: (5) Type 1 diabetes: PLAN: Plan - nonoliguric TREVOR on CKD, TREVOR Etiology unclear serum creatinine was at 1.6 mg/dL in February 2021.? History of poorly controlled diabetes now with nephrotic range proteinuria likely diabetic nephropathy - 1st HD 09/22, HD again today over 3hr, 3k bath and attempt ~1L UF as patient/bp tolerates. We will continue to assess daily for dialysis and ultrafiltration needs. -Plan to have a renal biopsy for diagnostic and prognostic factor once patient is more stable, possibly outpatient - bps marginal low, metoprolol and norvasc stopped. Hopefully bps will improve and should allow for more fluid removal with dialysis - on IV antibiotics - planning for tunneled HD catheter later in the week - once more stable and closer to discharge patient will need outpatient dialysis arrangements at [facility], diagnosis TREVOR.?
[2022-09-23] MEDS: Chlorhexidine 15 ML PO ×2 (10:15→20:57)
[2022-09-23 10:35] LABS: Bedside Glucose 99 mg/dL (74-106)
--- NOTE | 2022-09-23 10:36 | CASEMGMT ---
Addendum entered by Kendal Petersen 09/23/22 16:30: Call received from Regina Patrick educational technology coordinator. She states they received the referral for OP HD and pt has been cleared financially. Darnell states she is not sure if there will be any [id number] cost for pt and recommended family contact pt's insurance to check on this. Chair time @ [facility] is MWF @ 0745. Pt to arrive @ 0700 for the 1st OP HD visit, which is scheduled on 09/30/22. Per Darnell, they have all of the required/needed documentation and she states [facility] does not require Hep B total core antibody. [facility] Intake/Darnell: Extension: [id number]. Call placed to pt's step-son, Ben, to notify him of the above chair time/date. No answer. VM left for him to return call to this RN JAX. Original Note: ISABEL CAMARA NOTE: RN JAX placed call to pt's step-son, Ben, re: OP HD. Discussed OP HD and questions answered. Ben made aware of local [facility] centers, [facility] and [facility], which are both in-network w/pt's insurance, per [employer] [facility] website. He chooses [facility] as 1st choice. He states pt will have transportation to HD appts. Pt does drive and he/family can also take pt to appts, if needed. Call placed to [facility] admissions and spoke w/Mariaa. She states they do have chair time available @ [facility] on MWF's. She states tentative chair time will be sometime b/w [phone]. ISABEL CAMARA inquired if they use [facility] for new referrals. She states they do, but states more people have access to faxed referrals and it goes faster if referrals are done via fax. Referral for new OP HD faxed to [facility] admissions @ at this time. Kena LANDRY RN, CM
[2022-09-23 11:07] LABS: M R Staph aureus DNA By PCR POSITIVE (Negative)
[2022-09-23 11:08] LABS: Probe Check PASS
--- NOTE | 2022-09-23 11:33 | DIALYSIS ---
2nd hemodialysis tx completed x 3 hrs. Access via right neck temporary HD cath. Net UF 1000ml. Pt bladimir well. See HD flowsheet on chart.
[2022-09-23] MEDS: Heparin 10,000 UNITS/10 ML Vial IV (13:03)
[2022-09-23] MEDS: Dorzolamide HCL/Timolol 10 ml Bottle 1 DRP OPHTHALMIC ×2 (13:06→20:57)
[2022-09-23] MEDS: Insulin Lispro 100 UNIT/ML INSULN.PEN SC (16:05)
[2022-09-23 16:25] LABS: Bedside Glucose 152 mg/dL (74-106)
[2022-09-23] MEDS: Atorvastatin Calcium 40 MG Tablet GT (20:57)
[2022-09-23] MEDS: Latanoprost 0.005% 1 Bottle 1 DRP OPHTHALMIC (20:57)
[2022-09-23 21:31] LABS: Bedside Glucose 129 mg/dL (74-106)
[2022-09-24] VITALS (36 sets, daily range): BP systolic 93–181; BP diastolic 52–84; PULSE 57–108; RESP 14–19; TEMP 36.8–38.2; O2SAT 85–100
[2022-09-24] MEDS: Acetaminophen 650 MG/20 ML UDC 1000 MG GT ×3 (05:26→21:20)
[2022-09-24] MEDS: guaiFENesin 10 ML UDC (200MG/10ML) PO ×4 (05:26→23:38)
[2022-09-24] MEDS: Propofol 10MG/Ml 1,000 MG/100 ML Bottle 9.9 MG CONT INF ×2 (05:55→13:33)
[2022-09-24] MEDS: CHLORHEXIDINE GLUC 2% CLOTH 1 EACH TOWELETTE TOPICAL (06:06)
[2022-09-24] MEDS: Insulin Lispro 100 UNIT/ML INSULN.PEN SC ×2 (06:48→15:13)
--- NOTE | 2022-09-24 06:57 | PCM.PN.INT ---
Assessment & Plan Assessment/Plan (1) Acute respiratory failure with hypoxia: PLAN: Plan RECOMMENDATIONS: 1. Continue assist-control mode mechanical ventilation. Wean FiO2/PEEP for saturations greater than 90%. 2. Continue empiric antimicrobials to cover for potential aspiration. 3. Propofol and fentanyl for sedation. 4. Continue Protonix for GI prophylaxis. 5. Ongoing dialysis support per nephrology recommendations. 6. Tentative plans for tunneled dialysis catheter placement on Wednesday. IMPRESSIONS: 1. Acute hypoxemic respiratory failure Appears to be secondary to hypervolemia in the setting of acute kidney injury. The patient's chest x-ray continues to demonstrate progressive bilateral pulmonary vascular congestion and a right-sided pleural effusion. The patient has been unable to lay flat to facilitate placement of a dialysis catheter. Therefore, he was intubated on September 22, in order to facilitate placement of a temporary HD line and subsequent dialysis support. Plan to continue volume optimization through hemodialysis per nephrology recommendations. Tentatively, the patient will remain intubated until his tunneled dialysis catheter can be placed successfully on Wednesday. Given that he did experience several episodes of emesis, he has been started on empiric antimicrobials to cover for aspiration. For now, the patient will remain on assist control mode of mechanical ventilation. Plan to wean FiO2 and PEEP to maintain saturations at or above 90%. 2. Acute kidney injury Unclear etiology. Nephrology is following to assist with medical management. The patient is in need of hemodialysis and volume optimization. Management as noted above. 3. NSTEMI The patient's echocardiogram demonstrated a depressed ejection fraction at 35% with stage III diastolic dysfunction and pulmonary hypertension. Cardiology is following to assist with medical management. He may ultimately require cardiac catheterization once medically stabilized, likely next week. 4. Diabetes mellitus/hypertension/congenital deafness/GERD Complicates care, management, recovery and prognosis. Continue home medications as indicated. TIME: 31 minutes of critical care time, inclusive of procedures, was spent addressing the patient's acute hypoxemic respiratory failure, acute kidney injury, NSTEMI, review of all data and collaboration with care team. Subjective Subjective The patient was seen and examined at the bedside this morning. Events from the last 24 hours have been reviewed. The patient is currently afebrile, hemodynamically stable and maintaining appropriate oxygen saturations on assist control mode mechanical ventilation with an FiO2 requirement of 40% and PEEP of 5. The patient again tolerated dialysis yesterday with 1 L of fluid removed. He is currently documented to be overall net +1.7 L for the hospitalization. Objective Data Objective Data The patient's most recent lab work, culture data and imaging studies have all been personally reviewed. Surface echocardiogram demonstrated an ejection fraction of 35% with stage III diastolic dysfunction and moderate to severe global hypokinesis of the LV. Pulmonary artery systolic pressure was estimated to be 40 mmHg. Sputum culture is pending. Vital Signs: Vital Signs Temp Pulse Resp BP Pulse Ox O2 Del Method O2 Flow Rate 98.6 F 79 14 130/55 H 94 Mechanical Ventilator 6 09/24/22 06:00 09/24/22 06:00 09/24/22 06:00 09/24/22 06:00 09/24/22 06:00 09/24/22 06:00 09/22/22 04:00 FiO2 40 09/24/22 06:00 Oxygen Flow Rate (L/min) 6 Oxygen Delivery Method Mechanical Ventilator Weight: 181 lb 10.574 oz Body Mass Index (BMI) 25.7 Intake & Output: Intake and Output for Last 24 Hours 09/22/22 09/23/22 09/24/22 23:59 23:59 23:59 Intake Total 652.15 / 674.55 1076.97 / 1096.87 171.83 / 171.83 Output Total 2585 / 2585 1775 / 1850 425 / 425 Balance -1932.85 / -1910.45 -698.03 / -753.13 -253.17 / -253.17 Lab / Micro Data Attestation: I reviewed the patient's lab results. Result Diagrams: 09/22/22 05:09 09/23/22 03:22 Labs: Laboratory Results - last 24 hr 09/23/22 07:04: MRSA (PCR) POSITIVE H 09/23/22 10:12: POC Glucose 99 09/23/22 16:02: POC Glucose 152 H 09/23/22 21:04: POC Glucose 129 H Micro: Microbiology 09/23/22 07:34 Sputum, Tracheal Aspirate Gram Stain - Final 09/22/22 07:20 Sputum, Induced/Lukens Gram Stain - Final 09/22/22 07:20 Sputum, Induced/Lukens Respiratory Culture - Preliminary Appears to be normal respiratory amparo. Further studies to follow. 09/17/22 15:45 Urine, Clean Catch Urine Culture - Final Culture exhibits no growth. 09/16/22 07:05 Nasal Secretion SARS-CoV-2 & FLU Antigen (Rapid) - Final ABG Data ABG results: ABG 09/22/22 07:37 Specimen Type ART Sample Site L Radial pH 7.23 L Bicarbonate Actual 10.9 L Total CO2 12 Base Excess -17 L O2 Saturation 94 L O2 % 60 ABG pCO2 26.2 L ABG pO2 82 Kev Test Positive Respiration Rate 14 O2 Delivery Device Adult Vent Vent Mode AC Tidal Volume 450 POC PEEP 5 Radiography Diagnostic Testing: Radiology Impression Chest X-Ray 09/22/22 07:02 IMPRESSION: Endotracheal tube terminates 4 cm above the aleena. Bilateral pulmonary opacities are grossly stable since the prior exam. Small to moderate right and probable small left pleural effusions, stable. Electronically Signed: Jaison Garcia MD at 7:28 EST , Chest X-Ray 09/22/22 09:38 IMPRESSION: The tip of the right dialysis catheter is at the junction of the superior vena cava and right atrium. Improved aeration of both lungs although residual changes persist as described. Electronically Signed: Eleazar Farrar MD at 10:22 EST , Physical Exam Const Constitutional Narrative: Intubated, sedated and mechanically ventilated. No ventilator dyssynchrony. HEENT normocephalic and head/scalp atraumatic Mouth: endotracheal tube in place and OG tube in place Eyes PERRL, EOMs intact bilaterally and conjunctivae normal Neck supple Neck Narrative: Right IJ temporary hemodialysis catheter. General: trachea midline Chest inspection of chest normal Resp Auscultation: diminished lung sounds; Negative for rales, rhonchi or wheezes Cardio regular rate and regular rhythm GI normal to inspection, nondistended, normoactive bowel sounds Extremity General Extremity: edema Skin no rashes or lesions noted Neuro Sensorium / Orientation: sedated on vent Charges/Coding Procedures Hospitalists Procedures: 40507 Critial Care 1st Hr
[2022-09-24 07:11] LABS: Bedside Glucose 296 mg/dL (74-106)
--- NOTE | 2022-09-24 08:21 | PN.HOSP_ITS ---
Subjective Subjective Follow-up for pulmonary edema, acute hypoxic respiratory failure, on mechanical ventilator and TREVOR Objective Data Objective Data Vital Signs: Vital Signs Temp Pulse Resp BP Pulse Ox O2 Del Method O2 Flow Rate 100.2 F H 76 14 134/56 H 94 Mechanical Ventilator 6 09/24/22 07:00 09/24/22 07:17 09/24/22 07:00 09/24/22 07:00 09/24/22 07:00 09/24/22 07:00 09/22/22 04:00 FiO2 40 09/24/22 07:00 Oxygen Flow Rate (L/min) 6 Oxygen Delivery Method Mechanical Ventilator Weight: 181 lb 10.574 oz Body Mass Index (BMI) 25.7 Intake & Output: Intake and Output for Last 24 Hours 09/22/22 09/23/22 09/24/22 23:59 23:59 23:59 Intake Total 652.15 / 674.55 1076.97 / 1096.87 206.63 / 206.63 Output Total 2585 / 2585 1775 / 1850 425 / 425 Balance -1932.85 / -1910.45 -698.03 / -753.13 -218.37 / -218.37 Lab / Micro Data Result Diagrams: 09/22/22 05:09 09/23/22 03:22 Labs: Laboratory Results - last 24 hr 09/23/22 07:04: MRSA (PCR) POSITIVE H 09/23/22 10:12: POC Glucose 99 09/23/22 16:02: POC Glucose 152 H 09/23/22 21:04: POC Glucose 129 H 09/24/22 06:46: POC Glucose 296 H Micro: Microbiology 09/22/22 07:20 Sputum, Induced/Lukens Gram Stain - Final 09/22/22 07:20 Sputum, Induced/Lukens Respiratory Culture - Final Mixed normal respiratory amparo. No Streptococcus pneumoniae, beta-hemolytic Streptococcus or Staphylococcus aureus isolated. 09/23/22 07:34 Sputum, Tracheal Aspirate Gram Stain - Final 09/17/22 15:45 Urine, Clean Catch Urine Culture - Final Culture exhibits no growth. 09/16/22 07:05 Nasal Secretion SARS-CoV-2 & FLU Antigen (Rapid) - Final Physical Exam Narrative Physical exam Patient is going to be dialyzed today. Still intubated. Plan for tunneled dialysis catheter on Wednesday. General:Intubated, on vent, sedated HEENT: Atraumatic, PERRLA, EOMI, Normocephalic Oral: ET and OG tube Neck: Supple, No JVD, Negative Carotid Bruits Lungs: Air entry diminished in bilateral lung bases. No crepts on vent support Cardiovascular: Sinus Rhythm with PVCs, Normal S1, Normal S2, No murmurs Abdomen: Bowel Sounds Present, Soft, Non Tender, Non-Distended : Lopez catheter, No renal angle tenderness. No suprapubic tenderness. Extremities: No edema, Capillary Refill Less than 3 Seconds Skin: No rashes, No breakdown Musculoskeletal: No Tenderness to Palpation of Joints or Extremities Neurological: Cranial nerves II-XII grossly intact, DTR 2+/4. Psych/Mental Status: Sedated. Assessment & Plan Assessment/Plan (1) Non-ST elevated myocardial infarction (non-STEMI): PLAN: Troponins were 1211. Patient did have some ST depressions in the inferior leads. Echocardiogram shows an EF of 35% with stage III diastolic dysfunction and mod erate to severe global hypokinesis of the left ventricle. Pulmonary artery systolic pressure of 40 mmHg. Plan: * Discontinue heparin drip * cardiology following, recommended baby aspirin, amlodipine, metoprolol and as needed hydralazine * Given his kidney function there is no current plans for cardiac catheterization until his kidney function is stabilized/hemodialyzed 09/23: Plan will be cardiac cath when he is well compensated in regards to pulmonary edema. (2) Acute renal failure: PLAN[facility] was able to see patient had a BMP on February 19, 2021 and his creatinine at that time was 1.66. I do not see any additional BMPs in the interim. Unclear if this is been just a chronic progression since then or this is been an acute worsening Renal ultrasound showed some medical renal disease Fractional excretion of sodium is 3.56% Plan: Losartan on hold. Discussed with the continuity editor. Patient had a scheduled renal biopsy and tunneled hemodialysis catheter which was canceled due to respiratory distress. Patient has NON-anion gap metabolic acidosis, bicarb 15, chloride 107. Creatinine 8.92. 09/22:Chest x-ray portable shows bilateral pulmonary edema and right-sided pleural effusion. Patient had temporary dialysis catheter through right IJ. Dialysis orders started. Discussed with the continuity editor. 09/23: Plan for Dialysis Today. Discussed with the Intervention Specialist. Tunneled dialysis catheter posted for Wednesday. 09/24: Plan for dialysis today. Patient is 1775 mL positive fluid. Rest is stays same. (3) Hypertensive emergency: PLAN: Improved considered for endorgan damage with acute kidney injury continue amlodipine Losartan held for acute kidney injury Patient will be also started on metoprolol titrate As needed hydralazine 09/22: BP on lower side due to sedative but not in hypotensive range 09/24: BP is normal. 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 Blood sugars elevated but patient is not currently in DKA Continue with basal insulin to 25 units daily and his prandial insulin is at 38 but I will change it over 30 but also have a sliding scale insulin. Last A1c from September 14 was 7 Patient did have hypoglycemic down to 19 yesterday. Glargine was discontinued. We will need to reintroduce but hold off on the high-dose prandial insulin the patient was receiving. (5) Congenital deafness: PLAN: Apparently all the information that the stepson told me about the patient not be able to read or read lips is not accurate. Was able to communicate to the patient by talking to him directly and he expressed understanding. I did have to repeat some things but he did grasp understanding. (6) Acute respiratory failure with hypoxia: PLAN: 09/21: Patient had respiratory distress, tachypnea and hypoxia on 1 L of oxygen. First kidney biopsy was canceled as pertinent could not lay down prone or on sideways and then thrombolysis of catheter for same region. Subsequently patient was transferred to ICU. Master Certified Rv Technician consult requested. Patient initially needs to be tried on NIPPV and if cannot salvage will need intubation. I requested Dr. Arteaga for temporary dialysis but he said continuity editor can put it. Chest x-ray stat ordered 10/10 patient was intubated in the morning. On IV propofol and fentanyl drip. 09/24: Sputum endotracheal culture reported mixed normal respiratory amparo. M RSA PCR positive. Patient did not had fever 1 time 100.2 Fahrenheit today. On IV Zosyn. (7) Cardiomyopathy: PLAN: EF of 35% Unclear etiology More definitive cardiac evaluation, including cardiac catheterization on hold pending kidney evaluation Not a candidate for ANIA inhibitors nor angiotensin receptor blockers given acute kidney injury PLAN: Plan VTE prophylaxis: Not indicated as patient will be anticoagulated. The patient's sister and father both can hear. They state that the patient was born with congenital deafness and they tried to see if there is anything that could be remedied by going to different facilities but said there is nothing that could be done. They report that the patient read lips poorly and reads basic simple written commands or questions. Charges/Coding Visit Charges Inpatient E&M: 88778 Subs Hosp L3
--- NOTE | 2022-09-24 09:33 | PCM.PN.REN ---
Documented by User: ZELDA Watts 09/24/22 10:20 Subjective Subjective On vent. On dialysis. Objective Data Objective Data Vital Signs: Vital Signs Temp Pulse Resp BP Pulse Ox O2 Del Method O2 Flow Rate 100.4 F H 77 14 141/60 H 95 Mechanical Ventilator 6 09/24/22 08:00 09/24/22 08:00 09/24/22 08:00 09/24/22 08:00 09/24/22 08:00 09/24/22 08:00 09/22/22 04:00 FiO2 40 09/24/22 08:00 Oxygen Flow Rate (L/min) 6 Oxygen Delivery Method Mechanical Ventilator Weight: 82.4 kg Body Mass Index (BMI) 25.7 Intake & Output: Intake and Output for Last 24 Hours 09/22/22 09/23/22 09/24/22 23:59 23:59 23:59 Intake Total 652.15 / 674.55 1076.97 / 1096.87 206.63 / 206.63 Output Total 2585 / 2585 1775 / 1850 425 / 425 Balance -1932.85 / -1910.45 -698.03 / -753.13 -218.37 / -218.37 Lab / Micro Data Result Diagrams: 09/22/22 05:09 09/23/22 03:22 Labs: Laboratory Results - last 24 hr 09/23/22 07:04: MRSA (PCR) POSITIVE H 09/23/22 10:12: POC Glucose 99 09/23/22 16:02: POC Glucose 152 H 09/23/22 21:04: POC Glucose 129 H 09/24/22 06:46: POC Glucose 296 H Micro: Microbiology 09/22/22 07:20 Sputum, Induced/Lukens Gram Stain - Final 09/22/22 07:20 Sputum, Induced/Lukens Respiratory Culture - Final Mixed normal respiratory amparo. No Streptococcus pneumoniae, beta-hemolytic Streptococcus or Staphylococcus aureus isolated. 09/23/22 07:34 Sputum, Tracheal Aspirate Gram Stain - Final 09/17/22 15:45 Urine, Clean Catch Urine Culture - Final Culture exhibits no growth. 09/16/22 07:05 Nasal Secretion SARS-CoV-2 & FLU Antigen (Rapid) - Final Physical Exam Narrative Intubated and sedated S1, S2, RRR Lung sounds clear anteriorly, no rhonchi or rales. He is on mechanical ventilator. Abdomen round, positive bowel sounds No significant edema right non-tunneled HD catheter dressing C/D/I Assessment & Plan Assessment/Plan (1) TREVOR (acute kidney injury): (2) Metabolic acidosis: (3) Benign essential hypertension: (4) Acute respiratory failure with hypoxia: (5) Type 1 diabetes: PLAN: Plan - nonoliguric TREVOR on CKD, TREVOR Etiology unclear. Serum creatinine was at 1.6 mg/dL in February 2021.? History of poorly controlled diabetes now with nephrotic range proteinuria likely diabetic nephropathy - 1st HD 09/22 (serum creatinine peaked at 9.3 mg/dL), dialysis on 09/23 with around 1.5 L UF, HD again today over 3hr, 3k bath and attempt ~2L UF as patient/bp tolerates. We will continue to assess daily for dialysis and ultrafiltration needs. -Plan to have a renal biopsy for diagnostic and prognostic factor once patient is more stable, possibly outpatient - bps improved with metoprolol and norvasc stopped and this should allow for more fluid removal with dialysis - on IV antibiotics, Zosyn - NSTEMI; off heparin gtt. - planning for tunneled HD catheter tomorrow - Outpatient dialysis arrangements have been made at [facility] Wednesday. - discussed plan with Dr. Olmstead Documented by User: Dr. Radha Landaverde MD 09/24/22 11:25 Objective Data Lab / Micro Data Result Diagrams: 09/22/22 05:09 09/23/22 03:22 Assessment & Plan Assessment/Plan (1) TREVOR (acute kidney injury): (2) Metabolic acidosis: (3) Benign essential hypertension: (4) Acute respiratory failure with hypoxia: (5) Type 1 diabetes: PLAN: Plan - nonoliguric TREVOR on CKD, TREVOR Etiology unclear. Serum creatinine was at 1.6 mg/dL in February 2021.? History of poorly controlled diabetes now with nephrotic range proteinuria likely diabetic nephropathy - 1st HD 09/22 (serum creatinine peaked at 9.3 mg/dL), dialysis on 09/23 with around 1.5 L UF, HD again today over 3hr, 3k bath and attempt ~2L UF as patient/bp tolerates. We will continue to assess daily for dialysis and ultrafiltration needs. -Plan to have a renal biopsy for diagnostic and prognostic factor once patient is more stable, possibly outpatient - bps improved with metoprolol and norvasc stopped and this should allow for more fluid removal with dialysis - on IV antibiotics, Zosyn - NSTEMI; off heparin gtt. - planning for tunneled HD catheter tomorrow - Outpatient dialysis arrangements have been made at [facility] Wednesday. - discussed plan with Dr. Olmstead Nephrology attending note: The patient is seen and examined personally. DISTRICT SALES MANAGER's note reflects my independent medical decision making and management with my annotation below. The patient is intubated. ROS cannot be done. The patient has trace edema of the lower extremities on exam. Lungs are coarse and remains on ventilator. Impression/Plan: The patient is a 57-year-old man with past history of type 1 diabetes mellitus, congenital deafness, hypertension, hyperlipidemia, stroke, and GERD.? The patient was admitted to the hospital on 09/16/2022 with hypertensive urgency, dyspnea and NSTEMI.? The patient has had a progressive loss of renal function and is started on dialysis on 09/22/2022.? Nephrology is following for dialysis dependent TREVOR on CKD. Acute kidney injury on chronic kidney disease, unspecified stage. Baseline renal function is unclear although there is notation that serum creatinine was 1.60 mg/dL in 2020.? The last available serum creatinine in [facility] was from 04/22/2014 at 1.3 mg/dL. Suspect the patient has underlying diabetic kidney disease.? He is proteinuric in nephrotic range and has had longstanding, poorly controlled diabetes with retinopathy. Serologies including ANCA, C3, and C4 are negative. Immunofixation is negative for monoclonal protein. It is possible that we are seeing progression of diabetic kidney disease towards ESRD. However, it would have been nice to get a tissue biopsy to find out for sure if there is reversible TREVOR, particularly to determine prognosis for the patient. Unfortunately, biopsy could not be done yesterday because of patient's respiratory status and anxiety. For now, we will continue to dialyze the patient and remove fluid to help with his respiratory status. Given the severity of presenting TREVOR, I would recommend placing tunneled dialysis catheter while we have control of his airway on ventilator. We can then determine if kidney biopsy can be done later. I supervised the dialysis procedure today: F160 dialyzer is used on 3.0-hour treatment.? 3K dialysate is used.? 400 mL/min blood flow, 600 dialysate flow.? We removed 1.6 L with dialysis today. Next dialysis is anticipated on 09/26/2022. Metabolic acidosis. Serum bicarbonate level was as low as 13 mmol/L on 09/22/2022.? Acidosis is likely due to renal failure. There has been no diarrhea. Serum bicarbonate level has improved with hemodialysis. Recheck serum bicarbonate level tomorrow. Hypertension. BP was as high as 207/124 on 09/16/2022. BP is now on the lower side. Amlodipine and metroprolol are currently on hold. Anemia. Hemoglobin is low but stable at 8.8 g/dL on 09/22/2022. Check iron studies tomorrow to see if he would benefit from INOCENCIO. Acute hypoxic respiratory failure. The patient is intubated on 09/22/2022. He is on mechanical ventilator. We will keep O>I with hemodialysis.? Plan on ultrafiltrating 2 L today. Nephrology plan will be discussed with Dr. Olmstead and Dr. Herrera.
--- NOTE | 2022-09-24 10:06 | PCM.RX.CS ---
Consult Pharmacy has been consulted to manage selected antiobiotic: Vancomycin Type of Consult: New start Suspected Infection: Pneumonia Labs: Sodium 139 mmol/L (136-145) 09/23/22 03:22 Potassium 3.7 mmol/L (3.5-5.1) 09/23/22 03:22 Chloride 106 mmol/L (98-107) 09/23/22 03:22 Carbon Dioxide 23.0 mmol/L (21.0-32.0) 09/23/22 03:22 Anion Gap 17 (5-15) H 09/22/22 05:09 BUN 62 mg/dL (7-18) H 09/23/22 03:22 Creatinine 7.10 mg/dL (0.70-1.30) H 09/23/22 03:22 Est GFR (MDRD) Af Amer 10 mL/min (>60) L 09/23/22 03:22 Est GFR (MDRD) Non-Af 9 mL/min (>60) L 09/23/22 03:22 BUN/Creatinine Ratio 8.7 RATIO (10-20) L 09/23/22 03:22 Glucose 160 mg/dL (74-106) H 09/23/22 03:22 Microbiology: Microbiology 09/22/22 07:20 Sputum, Induced/Lukens Gram Stain - Final 09/22/22 07:20 Sputum, Induced/Lukens Respiratory Culture - Final Mixed normal respiratory amparo. No Streptococcus pneumoniae, beta-hemolytic Streptococcus or Staphylococcus aureus isolated. 09/23/22 07:34 Sputum, Tracheal Aspirate Gram Stain - Final 09/17/22 15:45 Urine, Clean Catch Urine Culture - Final Culture exhibits no growth. 09/16/22 07:05 Nasal Secretion SARS-CoV-2 & FLU Antigen (Rapid) - Final Goal Trough: 15-20 mcg/mL Pharmacy Plan for Drug Dosing: NEW START IV VANCOMYCIN Consulting Physician: Dr. Olmstead Indication: Pneumonia Goal Trough: 15-20 SrCr: HD patient- pharmacy to call daily to verify schedule. CrCl:n/a Comments: Loading dose of 2g IV x1 ordered to be administered after HD session today, 09/24 Vancomycin Dose: Pharmacy to call daily to see if patient is to be dialyzed. Will plan on 1 additional dose post-HD then will dose based on levels thereafter Pending Level: TBD based on HD treatments Pharmacy Service will continue to monitor and adjust dosing as required.
--- NOTE | 2022-09-24 10:21 | CASEMGMT ---
RN CM NOTE: Erin, CADD MANAGER/nephro, made aware that Ben/step-son preferred [facility] for OP HD, that referral was made yesterday, and pt has chair time for MWF @ 0745 w/1st OP HD scheduled for 09/30/22. Kena BSN RN CM
[2022-09-24] MEDS: Senna/Docusate Sodium 1 Tablet 2 TABLET PO ×2 (11:30→21:20)
[2022-09-24] MEDS: Chlorhexidine 15 ML PO ×2 (11:33→21:18)
[2022-09-24] MEDS: Heparin 10,000 UNITS/10 ML Vial IV (11:34)
[2022-09-24] MEDS: Dorzolamide HCL/Timolol 10 ml Bottle 1 DRP OPHTHALMIC ×2 (11:35→21:20)
[2022-09-24] MEDS: Insulin Glargine-YFGN 100 UNIT/ML Pen 20 UNIT SC (11:36)
--- NOTE | 2022-09-24 11:39 | DIALYSIS ---
hemodialysis completed x 3 hrs. Access via right neck temp Hd cath. Net UF 1600ml. pt bladimir well. See HD flowsheet on chart.
[2022-09-24 12:10] LABS: Bedside Glucose 143 mg/dL (74-106)
[2022-09-24] MEDS: NEPRO TUBE FEED 1,000 ML 25 ML GT (15:14)
[2022-09-24 15:36] LABS: Bedside Glucose 230 mg/dL (74-106)
[2022-09-24] MEDS: Atorvastatin Calcium 40 MG Tablet GT (21:20)
[2022-09-24] MEDS: Latanoprost 0.005% 1 Bottle 1 DRP OPHTHALMIC (21:20)
[2022-09-24 21:55] LABS: Bedside Glucose 242 mg/dL (74-106)
[2022-09-24] MEDS: Propofol 10MG/Ml 1,000 MG/100 ML Bottle 12.4 MG CONT INF (23:16)
[2022-09-25] VITALS (37 sets, daily range): BP systolic 112–163; BP diastolic 51–89; PULSE 55–70; RESP 14–18; TEMP 35.6–37.6; O2SAT 91–700; BMI 25.8
[2022-09-25 04:18] LABS: Albumin, Serum 1.5 g/dL (3.2-5.0); BUN 28 mg/dL (7-18); BUN/Creat Ratio 5.8 RATIO (10-20); Chloride 99 mmol/L (98-107); Creatinine, Serum 4.83 mg/dL (0.70-1.30); EST Glomerular Filtration Rate 13 mL/min (>60); Est Glom Filt Rate - Afr Amer 16 mL/min (>60); Estimated Creatinine Clearance 17.21 ml/min; Ferritin 265 ng/mL (26-388); Glucose 464 mg/dL (74-106); Iron 20 ug/dL (65-175); Iron Binding Capacity,Total 119 ug/dL (250-450); PERCENT IRON SATURATION 16.8 % (15.0-55.0); Phosphorus 5.9 mg/dL (2.5-4.9); Potassium 3.8 mmol/L (3.5-5.1); Sodium Level 133 mmol/L (136-145)
[2022-09-25] MEDS: guaiFENesin 10 ML UDC (200MG/10ML) PO ×2 (05:50→17:03)
[2022-09-25] MEDS: Acetaminophen 650 MG/20 ML UDC 1000 MG GT ×3 (05:51→23:00)
[2022-09-25] MEDS: CHLORHEXIDINE GLUC 2% CLOTH 1 EACH TOWELETTE TOPICAL (05:54)
[2022-09-25] MEDS: Insulin Lispro 100 UNIT/ML INSULN.PEN SC ×3 (06:09→17:03)
[2022-09-25 06:16] LABS: Bedside Glucose 450 mg/dL (74-106)
[2022-09-25] MEDS: Propofol 10MG/Ml 1,000 MG/100 ML Bottle 12.4 MG CONT INF (06:51)
[2022-09-25] MEDS: TITRATION PARAMETER CHANGE 1 EACH IV (06:52)
[2022-09-25] MEDS: Chlorhexidine 15 ML PO ×2 (08:26→23:00)
[2022-09-25] MEDS: Dorzolamide HCL/Timolol 10 ml Bottle 1 DRP OPHTHALMIC ×2 (08:26→23:00)
--- NOTE | 2022-09-25 09:12 | PN.CARD_ITS ---
Subjective Subjective The patient was then evaluated. Still intubated. Objective Data Vital Signs: Vital Signs Temp Pulse Resp BP Pulse Ox O2 Del Method O2 Flow Rate 97.7 F L 57 L 14 126/58 H 99 Mechanical Ventilator 6 09/25/22 08:00 09/25/22 09:00 09/25/22 09:00 09/25/22 09:00 09/25/22 09:00 09/25/22 09:00 09/22/22 04:00 FiO2 30 09/25/22 09:00 Oxygen Flow Rate (L/min) 6 Oxygen Delivery Method Mechanical Ventilator Weight: 180 lb 5.41 oz Body Mass Index (BMI) 25.7 Intake & Output: Intake and Output for Last 24 Hours 09/23/22 09/24/22 09/25/22 23:59 23:59 23:59 Intake Total 1076.97 / 1096.87 1696.61 / 1825.96 850.96 / 850.96 Output Total 1775 / 1850 2145 / 2145 150 / 150 Balance -698.03 / -753.13 -448.39 / -319.04 700.96 / 700.96 Lab / Micro Data Result Diagrams: 09/22/22 05:09 09/25/22 02:55 Labs: Laboratory Results - last 24 hr 09/24/22 11:33: POC Glucose 143 H 09/24/22 15:12: POC Glucose 230 H 09/24/22 21:27: POC Glucose 242 H 09/25/22 02:55: Sodium 133 L, Potassium 3.8, Chloride 99, Carbon Dioxide 22.0, BUN 28 H, Creatinine 4.83 H, Estim Creat Clear Calc 17.21, Est GFR (MDRD) Af Amer 16 L, Est GFR (MDRD) Non-Af 13 L, BUN/Creatinine Ratio 5.8 L, Glucose 464 H*, Calcium 7.0 L, Phosphorus 5.9 H, Iron 20 L, TIBC 119 L, Iron Saturation 16.8, Ferritin 265, Albumin 1.5 L 09/25/22 05:58: POC Glucose 450 H Micro: Microbiology 09/23/22 07:34 Sputum, Tracheal Aspirate Gram Stain - Final 09/23/22 07:34 Sputum, Tracheal Aspirate Respiratory Culture - Final Staphylococcus aureus 09/22/22 07:20 Sputum, Induced/Lukens Gram Stain - Final 09/22/22 07:20 Sputum, Induced/Lukens Respiratory Culture - Final Mixed normal respiratory amparo. No Streptococcus pneumoniae, beta-hemolytic Streptococcus or Staphylococcus aureus isolated. Cardiology Labs/Tests 09/25/22 02:55: Sodium 133 L, Potassium 3.8, Chloride 99, Carbon Dioxide 22.0, BUN 28 H, Creatinine 4.83 H, Est GFR (MDRD) Af Amer 16 L, Est GFR (MDRD) Non-Af 13 L, BUN/Creatinine Ratio 5.8 L, Glucose 464 H*, Calcium 7.0 L, Phosphorus 5.9 H, Iron 20 L, TIBC 119 L, Iron Saturation 16.8, Ferritin 265 Rhythm: EKG: ECHO: Stress Test: Cardiac Cath: PCI: CT Surgery: Holter monitor: EPS: PPM: CXR: Chest CT Scan: Physical Exam Const Constitutional Narrative: Intubated, sedated and mechanically ventilated. No ventilator dyssynchrony. HEENT normocephalic and head/scalp atraumatic Mouth: endotracheal tube in place and OG tube in place Eyes PERRL, EOMs intact bilaterally and conjunctivae normal Neck supple Neck Narrative: Right IJ temporary hemodialysis catheter. General: trachea midline Chest inspection of chest normal Resp Auscultation: diminished lung sounds; Negative for rales, rhonchi or wheezes Cardio regular rate and regular rhythm GI normal to inspection, nondistended, normoactive bowel sounds Extremity General Extremity: edema Skin no rashes or lesions noted Neuro Sensorium / Orientation: sedated on vent Assessment & Plan Assessment/Plan (1) Non-ST elevated myocardial infarction (non-STEMI): PLAN: Patient presents with a non-ST elevation myocardial infarction. With his risk factors of hypertension as well as diabetes mellitus it is likely that he has premature coronary artery disease. At this point in time it is paramount that his renal function be evaluated before any cardiac catheterization is performed. * Would recommend continuation of baby aspirin * His echocardiogram demonstrated global left ventricular systolic dysfunction. I suspect that his cardiac enzyme abnormality is likely demand ischemia mediated. * His dialysis has been started and after he has been stabilized for a few days we will proceed with a left heart catheterization likely next week. (2) Hypertensive emergency: PLAN: Aggressive treatment of his blood pressure should be instituted Recommend addition of the beta-gwyn As needed hydralazine Thank you for allowing me to participate in the care of your patient. Please don't hesitate to call if any issues arise.
--- NOTE | 2022-09-25 10:15 | PCM.PN.REN ---
Documented by User: ZELDA Watts 09/25/22 10:22 Subjective Subjective On vent, no overnight events. No apparent distress Objective Data Objective Data Vital Signs: Vital Signs Temp Pulse Resp BP Pulse Ox O2 Del Method O2 Flow Rate 97.4 F L 55 L 14 133/61 H 100 Mechanical Ventilator 6 09/25/22 10:00 09/25/22 10:00 09/25/22 10:00 09/25/22 10:00 09/25/22 10:00 09/25/22 10:00 09/22/22 04:00 FiO2 30 09/25/22 10:00 Oxygen Flow Rate (L/min) 6 Oxygen Delivery Method Mechanical Ventilator Weight: 81.8 kg Body Mass Index (BMI) 25.7 Intake & Output: Intake and Output for Last 24 Hours 09/23/22 09/24/22 09/25/22 23:59 23:59 23:59 Intake Total 1076.97 / 1096.87 1696.61 / 1825.96 868.26 / 868.26 Output Total 1775 / 1850 2145 / 2145 150 / 150 Balance -698.03 / -753.13 -448.39 / -319.04 718.26 / 718.26 Lab / Micro Data Result Diagrams: 09/25/22 10:10 09/25/22 10:10 Labs: Laboratory Results - last 24 hr 09/24/22 11:33: POC Glucose 143 H 09/24/22 15:12: POC Glucose 230 H 09/24/22 21:27: POC Glucose 242 H 09/25/22 02:55: Sodium 133 L, Potassium 3.8, Chloride 99, Carbon Dioxide 22.0, BUN 28 H, Creatinine 4.83 H, Estim Creat Clear Calc 17.21, Est GFR (MDRD) Af Amer 16 L, Est GFR (MDRD) Non-Af 13 L, BUN/Creatinine Ratio 5.8 L, Glucose 464 H*, Calcium 7.0 L, Phosphorus 5.9 H, Iron 20 L, TIBC 119 L, Iron Saturation 16.8, Ferritin 265, Albumin 1.5 L 09/25/22 05:58: POC Glucose 450 H Micro: Microbiology 09/23/22 07:34 Sputum, Tracheal Aspirate Gram Stain - Final 09/23/22 07:34 Sputum, Tracheal Aspirate Respiratory Culture - Final Staphylococcus aureus 09/22/22 07:20 Sputum, Induced/Lukens Gram Stain - Final 09/22/22 07:20 Sputum, Induced/Lukens Respiratory Culture - Final Mixed normal respiratory amparo. No Streptococcus pneumoniae, beta-hemolytic Streptococcus or Staphylococcus aureus isolated. 09/17/22 15:45 Urine, Clean Catch Urine Culture - Final Culture exhibits no growth. 09/16/22 07:05 Nasal Secretion SARS-CoV-2 & FLU Antigen (Rapid) - Final Physical Exam Narrative Intubated and sedated S1, S2, RRR Lung sounds clear anteriorly. He is on mechanical ventilator. Abdomen round, positive bowel sounds No significant edema right non-tunneled HD catheter dressing C/D/I Assessment & Plan Assessment/Plan (1) TREVOR (acute kidney injury): (2) Metabolic acidosis: (3) Benign essential hypertension: (4) Acute respiratory failure with hypoxia: (5) Type 1 diabetes: PLAN: Plan - nonoliguric TREVOR on CKD, TREVOR Etiology unclear. Serum creatinine was at 1.6 mg/dL in February 2021.? History of poorly controlled diabetes now with nephrotic range proteinuria likely diabetic nephropathy. ANCA, C3, C4 all negative and Immunofixation negative for monoclonal protein - 1st HD 09/22 (serum creatinine peaked at 9.3 mg/dL), dialysis 09/23 with around 1.5 L UF, and dialysis again 09/24 with 1.6 L UF. We will continue to assess daily for dialysis and ultrafiltration needs. -No acute indication for EMAIL MARKETER today. We will plan for dialysis tomorrow. -Once more stable we will plan to have a renal biopsy for diagnostic and prognostic factor, possibly outpatient -Intubated 09/22 - bps improved with metoprolol and norvasc stopped and this should allow for more fluid removal with dialysis - on IV antibiotic, Zosyn - Acidosis from TREVOR, improved with dialysis. - NSTEMI; off heparin gtt. cardiology following. Possibly left heart catheterization next week - planning for tunneled HD catheter - Outpatient dialysis arrangements have been made at [facility] Wednesday. - discussed plan with Dr. Herrera Documented by User: Dr. Radha Landaverde MD 09/25/22 15:33 Objective Data Lab / Micro Data Result Diagrams: 09/25/22 10:10 09/25/22 10:10 Assessment & Plan Assessment/Plan (1) TREVOR (acute kidney injury): (2) Metabolic acidosis: (3) Benign essential hypertension: (4) Acute respiratory failure with hypoxia: (5) Type 1 diabetes: PLAN: Plan - nonoliguric TREVOR on CKD, TREVOR Etiology unclear. Serum creatinine was at 1.6 mg/dL in February 2021.? History of poorly controlled diabetes now with nephrotic range proteinuria likely diabetic nephropathy. ANCA, C3, C4 all negative and Immunofixation negative for monoclonal protein - 1st HD 09/22 (serum creatinine peaked at 9.3 mg/dL), dialysis 09/23 with around 1.5 L UF, and dialysis again 09/24 with 1.6 L UF. We will continue to assess daily for dialysis and ultrafiltration needs. -No acute indication for EMAIL MARKETER today. We will plan for dialysis tomorrow. -Once more stable we will plan to have a renal biopsy for diagnostic and prognostic factor, possibly outpatient -Intubated 09/22 - bps improved with metoprolol and norvasc stopped and this should allow for more fluid removal with dialysis - on IV antibiotic, Zosyn - Acidosis from TREVOR, improved with dialysis. - NSTEMI; off heparin gtt. cardiology following. Possibly left heart catheterization next week - planning for tunneled HD catheter - Outpatient dialysis arrangements have been made at [facility] Wednesday. - discussed plan with Dr. Herrera Nephrology attending note: The patient is seen and examined personally.? DISTANCE LEARNING PROGRAM COORDINATOR's note reflects my independent medical decision making and management with my annotation below. The patient remains intubated on ventilator.? ROS cannot be done. He is status post left IJ tunneled dialysis catheter placement earlier today. The patient has no edema of the lower extremities on exam.? Heart tones normal. Lungs are coarse and remains on ventilator. Impression/Plan: The patient is a 57-year-old man with past history of type 1 diabetes mellitus, congenital deafness, hypertension, hyperlipidemia, stroke, and GERD.? The patient was admitted to the hospital on 09/16/2022 with hypertensive urgency, dyspnea and NSTEMI.? The patient has had a progressive loss of renal function and is started on dialysis on 09/22/2022.? Nephrology is following for dialysis dependent TREVOR on CKD. Acute kidney injury on chronic kidney disease, unspecified stage. Baseline renal function is unclear although there is notation that serum creatinine was 1.60 mg/dL in 2020.? The last available serum creatinine in [facility] was from 04/22/2014 at 1.3 mg/dL. Suspect the patient has underlying diabetic kidney disease.? He is proteinuric in nephrotic range and has had longstanding, poorly controlled diabetes with retinopathy. Serologies including ANCA, C3, and C4 are negative.? Immunofixation is negative for monoclonal protein. It is possible that we are seeing progression of diabetic kidney disease towards ESRD. However, it would have been nice to get a tissue biopsy to find out for sure if there is reversible TREVOR, particularly to determine prognosis for the patient. Unfortunately, biopsy could not be done yesterday because of patient's respiratory status and anxiety. For now, we will continue to dialyze the patient and remove fluid to help with his respiratory status. Given the severity of presenting TREVOR and lack of improvement over the past week, tunneled dialysis catheter was placed earlier today by Dr. Arteaga. I have removed the right IJ temporary dialysis catheter. The patient tolerated dialysis well yesterday. 1.6 L of fluid was removed with dialysis yesterday. There is no need for dialysis today. We will keep the patient on TTS schedule for dialysis. Continue to monitor for renal recovery. Next dialysis is anticipated on 09/26/2022. Metabolic acidosis. Serum bicarbonate level was as low as 13 mmol/L on 09/22/2022.? Acidosis is likely due to renal failure. There has been no diarrhea. Serum bicarbonate level has improved and stabilized with hemodialysis. Recheck serum bicarbonate level tomorrow. Hypertension. BP was as high as 207/124 on 09/16/2022. BP was on the lower side yesterday.? Amlodipine and metroprolol are currently on hold. Continue to monitor BP. Anemia. Hemoglobin is low but still above 7.0 g/dL. Iron saturation is less than 20%. Ferritin is 265. We will start iron load with dialysis tomorrow. Once iron is loaded, we can consider starting INOCENCIO with dialysis. Acute hypoxic respiratory failure. The patient is intubated on 09/22/2022. He is on mechanical ventilator. We will keep O>I with hemodialysis.? Plan for ultrafiltration with dialysis tomorrow. Nephrology plan will be discussed with Dr. Herrera.
[2022-09-25] MEDS: 0.9% Saline Lock 10 ML Syringe IV (10:17)
[2022-09-25 10:18] LABS: Absolute Lymphocyte Count 0.83 X10^3/uL (0.83-4.51); Absolute Neutrophil Count 6.6 X10^3/uL (2.0-7.7); Basophil# 0.07 X10^3/uL; Basophil% 0.8 % (0-1); Eosinophil# 0.53 X10^3/uL; Eosinophils% 5.7 % (0-5); Hematocrit 23.5 % (40-54); Hemoglobin 7.2 g/dL (13.0-16.5); Lymphocyte # 0.83 X10^3/ul (0.83-4.51); Mean Corp Hgb Conc 30.6 g/dL (32-36); Mean Corpuscular Hgb 29.8 pg (27.0-32.0); Mean Corpuscular Volume 97.1 fL (80-94); Mean Platelet Vol. 11.5 fl (6.2-12.0); Monocyte# 1.18 X10^3/uL; Monocyte% 12.8 % (0-10); NRBC Flagged by Analyzer 0 % (0-5); Neutrophil # 6.58 X10^3/uL (2.7-7.7); Neutrophil % 71.4 % (47-70); Platelet Count 210 K/mm3 (150-450); RBC Distribution Width CV 12.7 % (11.6-14.6); RBC Distribution Width SD 44.6 fl (35.1-43.9); Red Blood Count 2.42 M/mm3 (4.6-6.2); White Blood Count 9.2 K/mm3 (4.4-11.0)
[2022-09-25 10:30] LABS: Bedside Glucose 416 mg/dL (74-106)
[2022-09-25 10:39] LABS: ALB/GLOB Ratio 0.4 RATIO (0.9-2.4); AST(SGOT) 15 U/L (15-37); Alanine Aminotransfer ALT/SGPT 30 U/L (16-61); Albumin, Serum 1.4 g/dL (3.2-5.0); Alkaline Phosphatase 74 U/L (45-117); Anion Gap 14 (5-15); BUN 32 mg/dL (7-18); BUN/Creat Ratio 5.9 RATIO (10-20); Calcium,Total 7.3 mg/dL (8.5-10.1); Chloride 98 mmol/L (98-107); Creatinine, Serum 5.41 mg/dL (0.70-1.30); EST Glomerular Filtration Rate 12 mL/min (>60); Est Glom Filt Rate - Afr Amer 14 mL/min (>60); Estimated Creatinine Clearance 15.37 ml/min; Globulin 3.7 g/dL (2.2-4.2); Glucose 483 mg/dL (74-106); Magnesium 2.3 mg/dL (1.6-2.6); Phosphorus 5.9 mg/dL (2.5-4.9); Potassium 3.6 mmol/L (3.5-5.1); Protein, Total 5.1 g/dL (6.4-8.2); Sodium Level 133 mmol/L (136-145)
--- NOTE | 2022-09-25 10:49 | PN.HOSP_ITS ---
Subjective Subjective Follow-up for acute hypoxic respiratory failure pulmonary edema and TREVOR Objective Data Objective Data Vital Signs: Vital Signs Temp Pulse Resp BP Pulse Ox O2 Del Method O2 Flow Rate 97.4 F L 57 L 14 133/61 H 99 Mechanical Ventilator 6 09/25/22 10:13 09/25/22 10:44 09/25/22 10:44 09/25/22 10:13 09/25/22 10:44 09/25/22 10:13 09/22/22 04:00 FiO2 30 09/25/22 10:44 Oxygen Flow Rate (L/min) 6 Oxygen Delivery Method Mechanical Ventilator Weight: 180 lb 5.41 oz Body Mass Index (BMI) 25.8 Intake & Output: Intake and Output for Last 24 Hours 09/23/22 09/24/22 09/25/22 23:59 23:59 23:59 Intake Total 1076.97 / 1096.87 1696.61 / 1825.96 940.56 / 940.56 Output Total 1775 / 1850 2145 / 2145 150 / 150 Balance -698.03 / -753.13 -448.39 / -319.04 790.56 / 790.56 Lab / Micro Data Result Diagrams: 09/25/22 10:10 09/25/22 10:10 Labs: Laboratory Results - last 24 hr 09/24/22 11:33: POC Glucose 143 H 09/24/22 15:12: POC Glucose 230 H 09/24/22 21:27: POC Glucose 242 H 09/25/22 02:55: Sodium 133 L, Potassium 3.8, Chloride 99, Carbon Dioxide 22.0, BUN 28 H, Creatinine 4.83 H, Estim Creat Clear Calc 17.21, Est GFR (MDRD) Af Amer 16 L, Est GFR (MDRD) Non-Af 13 L, BUN/Creatinine Ratio 5.8 L, Glucose 464 H*, Calcium 7.0 L, Phosphorus 5.9 H, Iron 20 L, TIBC 119 L, Iron Saturation 16.8, Ferritin 265, Albumin 1.5 L 09/25/22 05:58: POC Glucose 450 H 09/25/22 10:10: WBC 9.2, RBC 2.42 L, Hgb 7.2 L, Hct 23.5 L, MCV 97.1 H, MCH 29.8, MCHC 30.6 L, RDW Std Deviation 44.6 H, RDW Coeff of Jenifer 12.7, Plt Count 210, MPV 11.5, Immature Gran % (Auto) 0.300, Neut % (Auto) 71.4 H, Lymph % (Auto) 9.0 L, [place] % (Auto) 12.8 H, Eos % (Auto) 5.7 H, Baso % (Auto) 0.8, Absolute Neuts (auto) 6.6, Absolute Lymphs (auto) 0.83, Nucleated RBC % 0 09/25/22 10:10: Sodium 133 L, Potassium 3.6, Chloride 98, Carbon Dioxide 21.0, Anion Gap 14, BUN 32 H, Creatinine 5.41 H, Estim Creat Clear Calc 15.37, Est GFR (MDRD) Af Amer 14 L, Est GFR (MDRD) Non-Af 12 L, BUN/Creatinine Ratio 5.9 L, Glucose 483 H*, Calcium 7.3 L, Magnesium 2.3, Total Bilirubin 0.50, AST 15, ALT 30, Alkaline Phosphatase 74, Total Protein 5.1 L, Albumin 1.4 L, Globulin 3.7, Albumin/Globulin Ratio 0.4 L 09/25/22 10:10: Phosphorus 5.9 H 09/25/22 10:10: POC Glucose 416 H Micro: Microbiology 09/23/22 07:34 Sputum, Tracheal Aspirate Gram Stain - Final 09/23/22 07:34 Sputum, Tracheal Aspirate Respiratory Culture - Final Staphylococcus aureus 09/22/22 07:20 Sputum, Induced/Lukens Gram Stain - Final 09/22/22 07:20 Sputum, Induced/Lukens Respiratory Culture - Final Mixed normal respiratory amparo. No Streptococcus pneumoniae, beta-hemolytic Streptococcus or Staphylococcus aureus isolated. 09/17/22 15:45 Urine, Clean Catch Urine Culture - Final Culture exhibits no growth. 09/16/22 07:05 Nasal Secretion SARS-CoV-2 & FLU Antigen (Rapid) - Final Physical Exam Narrative Physical exam Hemoglobin is 7.2. Discussed with double head machine operator. No plan for dialysis today but tomorrow. Still intubated. Plan for tunneled dialysis catheter on Wednesday. General:Intubated, on vent, sedated HEENT: Atraumatic, PERRLA, EOMI, Normocephalic Oral: ET and OG tube Neck: Supple, No JVD, Negative Carotid Bruits Lungs: Air entry diminished in bilateral lung bases. No crepts on vent support Cardiovascular: Sinus Rhythm with PVCs, Normal S1, Normal S2, No murmurs Abdomen: Bowel Sounds Present, Soft, Non Tender, Non-Distended : Lopez catheter, clear urine. No renal angle tenderness. No suprapubic tenderness. Extremities: No edema, Capillary Refill Less than 3 Seconds Skin: No rashes, No breakdown Musculoskeletal: No Tenderness to Palpation of Joints or Extremities Neurological: Cranial nerves II-XII grossly intact, DTR 2+/4. Psych/Mental Status: Sedated. Assessment & Plan Assessment/Plan (1) Non-ST elevated myocardial infarction (non-STEMI): PLAN: Troponins were 1211. Patient did have some ST depressions in the inferior leads. Echocardiogram shows an EF of 35% with stage III diastolic dysfunction and moderate to severe global hypokinesis of the left ventricle. Pulmonary artery systolic pressure of 40 mmHg. Plan: * Discontinue heparin drip * cardiology following, recommended baby aspirin, amlodipine, metoprolol and as needed hydralazine * Given his kidney function there is no current plans for cardiac catheterization until his kidney function is stabilized/hemodialyzed 09/23: Plan will be cardiac cath when he is well compensated in regards to pulmonary edema. (2) Acute renal failure: PLAN: Nonoliguric through [facility] I was able to see patient had a BMP on February 19, 2021 and his creatinine at that time was 1.66. I do not see any additional BMPs in the interim. Unclear if this is been just a chronic progression since then or this is been an acute worsening Renal ultrasound showed some medical renal disease Fractional excretion of sodium is 3.56% Plan: Losartan on hold. Discussed with the double head machine operator. Patient had a sched uled renal biopsy and tunneled hemodialysis catheter which was canceled due to respiratory distress. Patient has NON-anion gap metabolic acidosis, bicarb 15, chloride 107. Creatinine 8.92. 09/22:Chest x-ray portable shows bilateral pulmonary edema and right-sided pleural effusion. Patient had temporary dialysis catheter through right IJ. Dialysis orders started. Discussed with the double head machine operator. 09/23: Plan for Dialysis Today. Discussed with the Burnisher. Tunneled dialysis catheter posted for Wednesday. 09/24: Plan for dialysis today. Patient is 1775 mL positive fluid. Rest is stays same. 09/25: Plan for tunneled dialysis catheter today (3) Hypertensive emergency: PLAN: Improved considered for endorgan damage with acute kidney injury continue amlodipine Losartan held for acute kidney injury Patient will be also started on metoprolol titrate As needed hydralazine 09/22: BP on lower side due to sedative but not in hypotensive range 09/24: BP is normal. 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 Blood sugars elevated but patient is not currently in DKA Continue with basal insulin to 25 units daily and his prandial insulin is at 38 but I will change it over 30 but also have a sliding scale insulin. Last A1c from September 14 was 7 Patient did have hypoglycemic down to 19 yesterday. Glargine was discontinued. We will need to reintroduce but hold off on the high-dose prandial insulin the patient was receiving. (5) Congenital deafness: PLAN: Apparently all the information that the stepson told me about the patient not be able to read or read lips is not accurate. Was able to communicate to the patient by talking to him directly and he expressed understanding. I did have to repeat some things but he did grasp understanding. (6) Acute respiratory failure with hypoxia: PLAN: 09/21: Patient had respiratory distress, tachypnea and hypoxia on 1 L of oxygen. First kidney biopsy was canceled as pertinent could not lay down prone or on sideways and then thrombolysis of catheter for same region. Subsequently patient was transferred to ICU. Machine Tool Technician Instructor consult requested. Patient initially needs to be tried on NIPPV and if cannot salvage will need intubation. I requested Dr. Arteaga for temporary dialysis but he said double head machine operator can put it. Chest x-ray stat ordered 10/10 patient was intubated in the morning. On IV propofol and fentanyl drip. 09/24: Sputum endotracheal culture reported mixed normal respiratory amparo. MRSA PCR positive. Patient did not had fever 1 time 100.2 Fahrenheit today. On IV Zosyn. 09/25: T-max 100.7 Fahrenheit last evening. Vancomycin was discontinued. (7) Cardiomyopathy: PLAN: EF of 35% Unclear etiology More definitive cardiac evaluation, including cardiac catheterization on hold pending kidney evaluation Not a candidate for ANIA inhibitors nor angiotensin receptor blockers given acute kidney injury PLAN: Plan VTE prophylaxis: Not indicated as patient will be anticoagulated. The patient's sister and father both can hear. They state that the patient was born with congenital deafness and they tried to see if there is anything that could be remedied by going to different facilities but said there is nothing that could be done. They report that the patient read lips poorly and reads basic simple written commands or questions. Charges/Coding Visit Charges Inpatient E&M: 22509 Subs Hosp L3
--- NOTE | 2022-09-25 11:10 | CASEMGMT ---
RN CM Note: Call placed to pt's step-son, Ben, to notify him of [facility] time/schedule. No answer. Left VM w/this RN CM contact # to call back when available. Kena ADAIRN RN CM
--- NOTE | 2022-09-25 11:42 | PCM.PN.INT ---
Assessment & Plan Assessment/Plan (1) Acute respiratory failure with hypoxia: PLAN: Acute respiratory failure with hypoxia due to hypervolemia, TREVOR on dialysis vomiting and possible aspiration, on empiric antibiotics plan is to continue aggressive dialysis via new tunneled catheter to be placed in OR today, wean and extubate when pulmonary edema has improved. Continue empiric Zosyn and Vanco, chlorhexidine, ventilator bundle, sedation with propofol and fentanyl at 25-125 respectively, Continue assist-control ventilation Daily sedation lightening head of bed 30 degrees and soft restraints as needed to prevent pulling of tubes and self injury. (2) Non-ST elevated myocardial infarction (non-STEMI): PLAN: NSTEMI with ejection fraction of 35% and stage III diastolic dysfunction, pulmonary hypertension. Plan is for medical management, with atorvastatin Cardiology consulted, catheterization planned for Wednesday. (3) TREVOR (acute kidney injury): PLAN: Dialysis per nephrology; BUN is 28 and creatinine 4.83 Tunneled catheter to be placed in OR today then continue aggressive dialysis per renal to remove excess fluid and improve respiratory status to enable extubation (4) On mechanically assisted ventilation: PLAN: As above (5) Type 1 diabetes: PLAN: Glucose with suboptimal control; insulin drip was increased. Tube feeds held for n.p.o. 4 OR adjust insulin dosing as needed by primary. Routinely rechecking CMP, CBC, phosphate and magnesium today. (6) Cardiomyopathy: PLAN: Stage III diastolic dysfunction with EF of 35%. Other chronic problems include acid reflux, hypertension, congenital deafness, which will be monitored and managed as needed. Patient is on IV Protonix and ICU anticoagulation. Subjective Subjective Opens eyes to voice, minimally responsive due to intubated and sedated on mechanical ventilation. Awaiting trip to the OR for tunneled catheter placement today Objective Data Objective Data 57-year-old with TREVOR and NSTEMI, with gradual volume overload, requiring dialysis.? Catheter placement was delayed due to patient uncooperation and severe anxiety which made it impossible for him to lie flat.? He was intubated on September 24, and temporary catheter placed, and he was dialyzed.? He is planned to go to the OR September 25 for placement of a tunneled catheter. Vital stable, on mechanical ventilator at 30%, BMI 25 T-max 100.7 yesterday at 4.? Afebrile now. ETT since 09/22, 7.5, 25 at lip, 450 x 30% times 5 PEEP, VE 6.4, PIP 19.? Rate 14 saturation stable 97%.? Cough is infrequent, strong, nonproductive, no sputum Vital Signs: Vital Signs Temp Pulse Resp BP Pulse Ox O2 Del Method O2 Flow Rate 97.4 F L 58 L 14 147/64 H 99 Mechanical Ventilator 6 09/25/22 10:13 09/25/22 11:26 09/25/22 11:00 09/25/22 11:00 09/25/22 11:00 09/25/22 11:00 09/22/22 04:00 FiO2 30 09/25/22 11:00 Oxygen Flow Rate (L/min) 6 Oxygen Delivery Method Mechanical Ventilator Weight: 180 lb 5.41 oz Body Mass Index (BMI) 25.8 Intake & Output: Intake and Output for Last 24 Hours 09/23/22 09/24/22 09/25/22 23:59 23:59 23:59 Intake Total 1076.97 / 1096.87 1696.61 / 1825.96 962.86 / 962.86 Output Total 1775 / 1850 2145 / 2145 150 / 150 Balance -698.03 / -753.13 -448.39 / -319.04 812.86 / 812.86 Lab / Micro Data Attestation: I reviewed the patient's lab results. Result Diagrams: 09/25/22 10:10 09/25/22 10:10 Labs: Laboratory Results - last 24 hr 09/24/22 11:33: POC Glucose 143 H 09/24/22 15:12: POC Glucose 230 H 09/24/22 21:27: POC Glucose 242 H 09/25/22 02:55: Sodium 133 L, Potassium 3.8, Chloride 99, Carbon Dioxide 22.0, BUN 28 H, Creatinine 4.83 H, Estim Creat Clear Calc 17.21, Est GFR (MDRD) Af Amer 16 L, Est GFR (MDRD) Non-Af 13 L, BUN/Creatinine Ratio 5.8 L, Glucose 464 H*, Calcium 7.0 L, Phosphorus 5.9 H, Iron 20 L, TIBC 119 L, Iron Saturation 16.8, Ferritin 265, Albumin 1.5 L 09/25/22 05:58: POC Glucose 450 H 09/25/22 10:10: WBC 9.2, RBC 2.42 L, Hgb 7.2 L, Hct 23.5 L, MCV 97.1 H, MCH 29.8, MCHC 30.6 L, RDW Std Deviation 44.6 H, RDW Coeff of Jenifer 12.7, Plt Count 210, MPV 11.5, Immature Gran % (Auto) 0.300, Neut % (Auto) 71.4 H, Lymph % (Auto) 9.0 L, [place] % (Auto) 12.8 H, Eos % (Auto) 5.7 H, Baso % (Auto) 0.8, Absolute Neuts (auto) 6.6, Absolute Lymphs (auto) 0.83, Nucleated RBC % 0 09/25/22 10:10: Sodium 133 L, Potassium 3.6, Chloride 98, Carbon Dioxide 21.0, Anion Gap 14, BUN 32 H, Creatinine 5.41 H, Estim Creat Clear Calc 15.37, Est GFR (MDRD) Af Amer 14 L, Est GFR (MDRD) Non-Af 12 L, BUN/Creatinine Ratio 5.9 L, Glucose 483 H*, Calcium 7.3 L, Magnesium 2.3, Total Bilirubin 0.50, AST 15, ALT 30, Alkaline Phosphatase 74, Total Protein 5.1 L, Albumin 1.4 L, Globulin 3.7, Albumin/Globulin Ratio 0.4 L 09/25/22 10:10: Phosphorus 5.9 H 09/25/22 10:10: POC Glucose 416 H Micro: Microbiology 09/23/22 07:34 Sputum, Tracheal Aspirate Gram Stain - Final 09/23/22 07:34 Sputum, Tracheal Aspirate Respiratory Culture - Final Staphylococcus aureus 09/22/22 07:20 Sputum, Induced/Lukens Gram Stain - Final 09/22/22 07:20 Sputum, Induced/Lukens Respiratory Culture - Final Mixed normal respiratory amparo. No Streptococcus pneumoniae, beta-hemolytic Streptococcus or Staphylococcus aureus isolated. 09/17/22 15:45 Urine, Clean Catch Urine Culture - Final Culture exhibits no growth. 09/16/22 07:05 Nasal Secretion SARS-CoV-2 & FLU Antigen (Rapid) - Final Radiography Diagnostic Testing: Chest radiograph personally reviewed Physical Exam Narrative Well-developed well-nourished sedated no acute distress on ventilator. HEENT: Intubated, endotracheal tube is 7.5 mm ID at 25 cm at the lip, infrequent cough, no sputum with suctioning. Neck is supple with a temporary dialysis catheter right IJ, good condition with no wheezes rales or rhonchi. No cough and was suctioned Abdomen is soft nontender OG tube has yellow-brownish secretions bowels are normal active no tenderness Lopez in place, clear yellow urine pale Neuro, sedated, incomplete exam Extremities have no clubbing cyanosis or edema Skin is warm and dry I's and O's remarkable for urine output 0.46 mils per kilogram per hour Patient was noted to have liquid diarrhea yesterday Charges/Coding Procedures Hospitalists Procedures: 07859 Critial Care 1st Hr (Critical care time spent with patient at bedside, review of documentation, lab results, radiology and other test results, discussion with colleagues and ancillary staff, clinical management of patient, and updating family if applicable, was 40 minutes. This time does not include any procedures)
[2022-09-25 12:10] LABS: Bedside Glucose 417 mg/dL (74-106)
--- NOTE | 2022-09-25 12:54 | CPS ---
vent on standby, pt taken to OR at 12:30
[2022-09-25] MEDS: Heparin 10,000 UNITS/10 ML Vial 10000 UNITS (13:05)
[2022-09-25] MEDS: Bupivacaine 0.25% 30 ML Vial (13:05)
--- NOTE | 2022-09-25 13:41 | PCM.OPRPT ---
Problems Associated Problem List Diagnoses (1) TREVOR (acute kidney injury): Report of Operation Date of Procedure: 09/25/22 Pre-Operative Diagnosis: Acute kidney injury Post-Operative Diagnosis: Same Surgery/Procedure Performed:: Placement of a tunneled dialysis catheter Surgeon: Medhat Arteaga agile business analyst: None Type of Anesthesia: General Anesthesiologist: Aramis [place] Estimated Blood Loss (mL): < 25 cc Description of Procedure: Patient came down from the intensive care unit intubated was placed in the supine position on the operating table. He had a previous temporary dialysis catheter placed in the right IJ. I ultrasound the left internal jugular area found it to be patent the left chest and neck area were then sterilely prepped and draped in the usual fashion. Local was injected into the neck. Seldinger's technique was used to gain access to the internal jugular vein. Needle was removed fluoroscopy was used to confirm the guidewire going down to the superior vena cava. Local was injected into the chest. A skin garth was made here a skin garth was made in the neck where the guidewire came out. I dilated this area with a hemostat. I tunneled the tunneled dialysis catheter from the chest over the collarbone into the neck. I used sequential dilators over the guidewire finally using the dilator and sheath removing the dilator and guidewire. I placed the catheter into the superior vena cava without difficulty. Fluoroscopy was used to confirm that it laid flat and was in good position. It flushed and irrigated well. It was flushed with 2 cc of hep flush. It was sutured into the skin with 3-0 nylon. The neck was closed with a single suture of 3-0 Vicryl. Dermabond was applied sterile dressings were applied and the patient tolerated this well. Patient was transferred back up to the intensive care unit postoperative chest x-ray was ordered Admit VTE Documentation VTE Present on Admission: No VTE Mechan Device Prophylaxis: SCD's VTE Pharm Prophylaxis ordered?: No Reason prophylaxis not ordered:: Treatment Not Indicated
--- NOTE | 2022-09-25 13:45 | RAD_ITS ---
STUDY: X-RAY CHEST REASON FOR EXAM: Male, 57 years old. Hemodialysis catheter placement. TECHNIQUE: Single AP portable view of the chest. COMPARISON: Comparison is made with prior study 09/22/2022. FINDINGS: A left-sided dialysis catheter has been placed with the tip at the junction of the superior vena cava and right atrium. An endotracheal tube is in situ with the tip at 6.1 cm proximal to the aleena. An orogastric tube is seen with the tip in the distal stomach. A right-sided internal jugular venous catheter seen with the tip in the mid superior vena cava. Since prior study, there has been improved aeration of both lungs. Residual left lower lobe infiltrate with blunting of both gastric angles. Normal size heart. Normal mediastinum and aric. Normal visualized pulmonary arteries. Normal visualized aortic arch and descending thoracic aorta. Normal visualized thoracic spine. Normal visualized ribs, clavicles, and shoulders. There is no demonstrated abnormality of the visualized soft tissue structures of the upper abdomen. RAD/Chest 1 View (Portable) IMPRESSION: The left-sided hemodialysis catheter has been placed and the tip is at the junction of the superior vena cava and right atrium. Improved aeration of both lungs. Persistent left lower lobe infiltrate with blunting of both costophrenic angles. Electronically Signed: Eleazar Farrar MD at 14:24 EST ,
[2022-09-25] MEDS: NEPRO TUBE FEED 1,000 ML 25 ML GT (14:12)
[2022-09-25] MEDS: Propofol 10MG/Ml 1,000 MG/100 ML Bottle 9.8 MG CONT INF ×2 (14:12→22:54)
[2022-09-25] MEDS: Insulin Glargine-YFGN 100 UNIT/ML Pen 20 UNIT SC (14:13)
--- NOTE | 2022-09-25 14:51 | NURSING ---
RIJ Temporary dialysis line d/c'd per Dr Bey. Pt tolerated well
--- NOTE | 2022-09-25 16:19 | CASEMGMT ---
ISABEL CAMARA NOTE: OP report for placement of tunneled HD catheter and CXR confirming placement faxed to [facility] @ this time. Kena LANDRY RN CM
[2022-09-25 17:06] LABS: Bedside Glucose 373 mg/dL (74-106)
[2022-09-25] MEDS: Latanoprost 0.005% 1 Bottle 1 DRP OPHTHALMIC (23:00)
[2022-09-25] MEDS: Senna/Docusate Sodium 1 Tablet 2 TABLET PO (23:00)
[2022-09-25] MEDS: Atorvastatin Calcium 40 MG Tablet GT (23:00)
[2022-09-26] VITALS (33 sets, daily range): BP systolic 120–162; BP diastolic 51–73; PULSE 66–95; RESP 14–16; TEMP 36.9–38.5; O2SAT 92–99
[2022-09-26] MEDS: guaiFENesin 10 ML UDC (200MG/10ML) PO ×2 (00:12→06:42)
[2022-09-26] MEDS: Insulin Lispro 100 UNIT/ML INSULN.PEN SC ×3 (00:13→17:39)
[2022-09-26 00:31] LABS: Bedside Glucose 299 mg/dL (74-106)
[2022-09-26] MEDS: CHLORHEXIDINE GLUC 2% CLOTH 1 EACH TOWELETTE TOPICAL (04:51)
--- NOTE | 2022-09-26 05:58 | NURSING ---
Pts primary rn aware of blood glucose on am labs of 536 at this time.
[2022-09-26 06:00] LABS: ALB/GLOB Ratio 0.4 RATIO (0.9-2.4); AST(SGOT) 13 U/L (15-37); Alanine Aminotransfer ALT/SGPT 26 U/L (16-61); Albumin, Serum 1.5 g/dL (3.2-5.0); Alkaline Phosphatase 100 U/L (45-117); Anion Gap 15 (5-15); BUN 43 mg/dL (7-18); BUN/Creat Ratio 6.5 RATIO (10-20); Calcium,Total 7.6 mg/dL (8.5-10.1); Chloride 96 mmol/L (98-107); Creatinine, Serum 6.57 mg/dL (0.70-1.30); EST Glomerular Filtration Rate 9 mL/min (>60); Est Glom Filt Rate - Afr Amer 11 mL/min (>60); Estimated Creatinine Clearance 12.65 ml/min; Glucose 536 mg/dL (74-106); Potassium 4.2 mmol/L (3.5-5.1); Protein, Total 5.5 g/dL (6.4-8.2); Sodium Level 131 mmol/L (136-145)
[2022-09-26] MEDS: Acetaminophen 650 MG/20 ML UDC 1000 MG GT ×3 (06:40→21:10)
[2022-09-26] MEDS: Propofol 10MG/Ml 1,000 MG/100 ML Bottle 9.8 MG CONT INF ×3 (06:41→21:30)
[2022-09-26] MEDS: Insulin Lispro 100 UNIT/ML INSULN.PEN 12 UNIT SC (06:47)
[2022-09-26] MEDS: Insulin Glargine-YFGN 100 UNIT/ML Pen 20 UNIT SC (11:31)
[2022-09-26] MEDS: Dorzolamide HCL/Timolol 10 ml Bottle 1 DRP OPHTHALMIC ×2 (11:31→21:10)
[2022-09-26] MEDS: Chlorhexidine 15 ML PO ×2 (11:31→21:11)
[2022-09-26 11:55] LABS: Bedside Glucose 236 mg/dL (74-106)
[2022-09-26] MEDS: Senna/Docusate Sodium 1 Tablet 2 TABLET GT ×2 (12:36→21:11)
[2022-09-26] MEDS: guaiFENesin 10 ML UDC (200MG/10ML) GT ×2 (12:36→17:40)
[2022-09-26] MEDS: 0.9% Saline Lock 10 ML Syringe IV ×3 (12:40→21:15)
--- NOTE | 2022-09-26 13:02 | DIALYSIS ---
3 hour tx complete with net UF 1000 removed. Tolerated well. Good push pull to both lines on cvc L chest. Closed cvc with heparin to luminal fill as ordered. Lines clamped and sterile caps applied. Report to Kailyn Valencia RN.
--- NOTE | 2022-09-26 14:24 | PN.CC_ITS ---
Assessment & Plan Assessment/Plan (1) Acute respiratory failure with hypoxia: PLAN: Acute respiratory failure with hypoxia due to hypervolemia, TREVOR on dialysis vomiting and possible aspiration, on empiric antibiotics plan is to continue aggressive dialysis via new tunneled catheter to be placed in OR 09/25, wean and extubate when pulmonary edema has improved s/p dialysis today (1L) removed, will plan on dialysis tomorrow as well Will keep him intubated until cardiac cath on Wednesday Continue empiric Zosyn and Vanco, chlorhexidine, ventilator bundle, sedation with propofol and fentanyl at 25-125 respectively, Continue assist-control ventilation Daily sedation lightening head of bed 30 degrees and soft restraints as needed to prevent pulling of tubes and self injury. (2) Non-ST elevated myocardial infarction (non-STEMI): PLAN: NSTEMI with ejection fraction of 35% and stage III diastolic dysfunction, pulmonary hypertension. Plan is for medical management, with atorvastatin Cardiology consulted, catheterization planned for Wednesday. Will keep him intubated until cardiac cath on Wednesday (3) TREVOR (acute kidney injury): PLAN: Dialysis per nephrology; BUN is 28 and creatinine 4.83 Tunneled catheter to be placed in OR today then continue aggressive dialysis per renal to remove excess fluid and improve respiratory status to enable extubation Will keep him intubated until cardiac cath on Wednesday (4) On mechanically assisted ventilation: PLAN: As above (5) Type 1 diabetes: PLAN: Glucose with suboptimal control; insulin drip was increased. Tube feeds held for n.p.o. 4 OR adjust insulin dosing as needed by primary. Routinely rechecking CMP, CBC, phosphate and magnesium today. (6) Cardiomyopathy: PLAN: Stage III diastolic dysfunction with EF of 35%. Other chronic problems include acid reflux, hypertension, congenital deafness, which will be monitored and managed as needed. Patient is on IV Protonix and ICU anticoagulation. Subjective Subjective Opens eyes to voice, minimally responsive due to intubated and sedated on mechanical ventilation. Awaiting trip to the OR for tunneled catheter placement today Objective Data Objective Data Vital Signs: Vital Signs Temp Pulse Resp BP Pulse Ox O2 Del Method O2 Flow Rate 37.2 C 85 16 150/61 H 96 Mechanical Ventilator 30 09/26/22 13:00 09/26/22 13:00 09/26/22 13:00 09/26/22 13:00 09/26/22 13:00 09/26/22 13:00 09/25/22 18:00 FiO2 25 09/26/22 12:00 Oxygen Flow Rate (L/min) 30 Oxygen Delivery Method Mechanical Ventilator Weight: 82.4 kg Body Mass Index (BMI) 25.8 Intake & Output: Intake and Output for Last 24 Hours 09/24/22 09/25/22 09/26/22 23:59 23:59 23:59 Intake Total 1696.61 / 1825.96 1756.05 / 1895.85 1193.80 / 1193.80 Output Total 2145 / 2145 310 / 460 1425 / 1425 Balance -448.39 / -319.04 1446.05 / 1435.85 -231.20 / -231.20 Lab / Micro Data Result Diagrams: 09/25/22 10:10 09/26/22 05:35 Labs: Laboratory Results - last 24 hr 09/25/22 16:36: POC Glucose 373 H 09/26/22 00:11: POC Glucose 299 H 09/26/22 05:35: Sodium 131 L, Potassium 4.2, Chloride 96 L, Carbon Dioxide 20.0 L, Anion Gap 15, BUN 43 H, Creatinine 6.57 H, Estim Creat Clear Calc 12.65, Est GFR (MDRD) Af Amer 11 L, Est GFR (MDRD) Non-Af 9 L, BUN/Creatinine Ratio 6.5 L, Glucose 536 H*, Calcium 7.6 L, Total Bilirubin 0.50, AST 13 L, ALT 26, Alkaline Phosphatase 100, Total Protein 5.5 L, Albumin 1.5 L, Globulin 4.0, Alb umin/Globulin Ratio 0.4 L 09/26/22 11:30: POC Glucose 236 H Micro: Microbiology 09/23/22 07:34 Sputum, Tracheal Aspirate Gram Stain - Final 09/23/22 07:34 Sputum, Tracheal Aspirate Respiratory Culture - Final Staphylococcus aureus 09/22/22 07:20 Sputum, Induced/Lukens Gram Stain - Final 09/22/22 07:20 Sputum, Induced/Lukens Respiratory Culture - Final Mixed normal respiratory amparo. No Streptococcus pneumoniae, beta-hemolytic Streptococcus or Staphylococcus aureus isolated. 09/17/22 15:45 Urine, Clean Catch Urine Culture - Final Culture exhibits no growth. 09/16/22 07:05 Nasal Secretion SARS-CoV-2 & FLU Antigen (Rapid) - Final Radiography Diagnostic Testing: Radiology Impression Chest X-Ray 09/25/22 13:45 IMPRESSION: The left-sided hemodialysis catheter has been placed and the tip is at the junction of the superior vena cava and right atrium. Improved aeration of both lungs. Persistent left lower lobe infiltrate with blunting of both costophrenic angles. Electronically Signed: Eleazar Farrar MD at 14:24 EST , Physical Exam Narrative Well-developed well-nourished sedated no acute distress on ventilator. HEENT: Intubated, endotracheal tube is 7.5 mm ID at 25 cm at the lip, infrequent cough, no sputum with suctioning. Neck is supple with a temporary dialysis catheter right IJ, good condition with no wheezes rales or rhonchi. No cough and was suctioned Abdomen is soft nontender OG tube has yellow-brownish secretions bowels are normal active no tenderness Lopez in place, clear yellow urine pale Neuro, sedated, incomplete exam Extremities have no clubbing cyanosis or edema Skin is warm and dry I's and O's remarkable for urine output 0.46 mils per kilogram per hour Patient was noted to have liquid diarrhea yesterday Charges/Coding Addendum Addendum: critical care time = 50 minutes Billing code = 04094
--- NOTE | 2022-09-26 15:07 | PN.HOSP_ITS ---
Subjective Subjective Follow-up for respiratory failure, TREVOR on hemodialysis. MSSA pneumonia. Objective Data Objective Data Vital Signs: Vital Signs Temp Pulse Resp BP Pulse Ox O2 Del Method O2 Flow Rate 99.0 F 85 16 150/61 H 96 Mechanical Ventilator 30 09/26/22 13:00 09/26/22 13:00 09/26/22 13:00 09/26/22 13:00 09/26/22 13:00 09/26/22 13:00 09/25/22 18:00 FiO2 25 09/26/22 12:00 Oxygen Flow Rate (L/min) 30 Oxygen Delivery Method Mechanical Ventilator Weight: 181 lb 10.574 oz Body Mass Index (BMI) 25.8 Intake & Output: Intake and Output for Last 24 Hours 09/24/22 09/25/22 09/26/22 23:59 23:59 23:59 Intake Total 1696.61 / 1825.96 1756.05 / 1895.85 1218.60 / 1218.60 Output Total 2145 / 2145 310 / 460 1425 / 1425 Balance -448.39 / -319.04 1446.05 / 1435.85 -206.40 / -206.40 Lab / Micro Data Result Diagrams: 09/25/22 10:10 09/26/22 05:35 Labs: Laboratory Results - last 24 hr 09/25/22 16:36: POC Glucose 373 H 09/26/22 00:11: POC Glucose 299 H 09/26/22 05:35: Sodium 131 L, Potassium 4.2, Chloride 96 L, Carbon Dioxide 20.0 L, Anion Gap 15, BUN 43 H, Creatinine 6.57 H, Estim Creat Clear Calc 12.65, Est GFR (MDRD) Af Amer 11 L, Est GFR (MDRD) Non-Af 9 L, BUN/Creatinine Ratio 6.5 L, Glucose 536 H*, Calcium 7.6 L, Total Bilirubin 0.50, AST 13 L, ALT 26, Alkaline Phosphatase 100, Total Protein 5.5 L, Albumin 1.5 L, Globulin 4.0, Albumin/Globulin Ratio 0.4 L 09/26/22 11:30: POC Glucose 236 H Micro: Microbiology 09/23/22 07:34 Sputum, Tracheal Aspirate Gram Stain - Final 09/23/22 07:34 Sputum, Tracheal Aspirate Respiratory Culture - Final Staphylococcus aureus 09/22/22 07:20 Sputum, Induced/Lukens Gram Stain - Final 09/22/22 07:20 Sputum, Induced/Lukens Respiratory Culture - Final Mixed normal respiratory amparo. No Streptococcus pneumoniae, beta-hemolytic Streptococcus or Staphylococcus aureus isolated. 09/17/22 15:45 Urine, Clean Catch Urine Culture - Final Culture exhibits no growth. 09/16/22 07:05 Nasal Secretion SARS-CoV-2 & FLU Antigen (Rapid) - Final Physical Exam Narrative Physical exam Discussed with nautical instrument mechanic. Patient undergoing hemodialysis Still intubated. Had tunneled dialysis catheter on Wednesday. General:Intubated, on vent, sedated HEENT: Atraumatic, PERRLA, EOMI, Normocephalic Oral: ET and OG tube Neck: Supple, No JVD, Negative Carotid Bruits Lungs: Air entry diminished in bilateral lung bases. No crepts on vent support Cardiovascular: Sinus Rhythm with PVCs, Normal S1, Normal S2, No murmurs Abdomen: Bowel Sounds Present, Soft, Non Tender, Non-Distended : Lopez catheter, clear urine. No renal angle tenderness. No suprapubic tenderness. Extremities: No edema, Capillary Refill Less than 3 Seconds Skin: No rashes, No breakdown Musculoskeletal: No Tenderness to Palpation of Joints or Extremities Neurological: Cranial nerves II-XII grossly intact, DTR 2+/4. Psych/Mental Status: Sedated. Assessment & Plan Assessment/Plan (1) Non-ST elevated myocardial infarction (non-STEMI): PLAN: Troponins were 1211. Patient did have some ST depressions in the inferior leads. Echocardiogram shows an EF of 35% with stage III diastolic dysfunction and moderate to severe global hypokinesis of the left ventricle. Pulmonary artery systolic pressure of 40 mmHg. Plan: * Discontinue heparin drip * cardiology following, recommended baby aspirin, amlodipine, metoprolol and as needed hydralazine * Given his kidney function there is no current plans for cardiac catheterization until his kidney function is stabilized/hemodialyzed 09/23: Plan will be cardiac cath when he is well compensated in regards to pu lmonary edema. (2) Acute renal failure: PLAN: Nonoliguric through [facility] I was able to see patient had a BMP on February 19, 2021 and his creatinine at that time was 1.66. I do not see any additional BMPs in the interim. Unclear if this is been just a chronic progression since then or this is been an acute worsening Renal ultrasound showed some medical renal disease Fractional excretion of sodium is 3.56% Plan: Losartan on hold. Discussed with the nautical instrument mechanic. Patient had a scheduled renal biopsy and tunneled hemodialysis catheter which was canceled due to respiratory distress. Patient has NON-anion gap metabolic acidosis, bicarb 15, chloride 107. Creatinine 8.92. 09/22:Chest x-ray portable shows bilateral pulmonary edema and right-sided pleural effusion. Patient had temporary dialysis catheter through right IJ. Dialysis orders started. Discussed with the nautical instrument mechanic. 09/23: Plan for Dialysis Today. Discussed with the Director Of Hotel Operations. Tunneled dialysis catheter posted for Wednesday. 09/24: Plan for dialysis today. Patient is 1775 mL positive fluid. Rest is stays same. 09/25: Plan for tunneled dialysis catheter today 09/26: Dialysis catheter on right upper chest, surgical site does not show hematoma or bleeding. Temporary dialysis catheter removed. (3) Hypertensive emergency: PLAN: Improved considered for endorgan damage with acute kidney injury continue amlodipine Losartan held for acute kidney injury Patient will be also started on metoprolol titrate As needed hydralazine 09/22: BP on lower side due to sedative but not in hypotensive range 09/24: BP is normal. 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 Blood sugars elevated but patient is not currently in DKA Continue with basal insulin to 25 units daily and his prandial insulin is at 38 but I will change it over 30 but also have a sliding scale insulin. Last A1c from September 14 was 7 Patient did have hypoglycemic down to 19 yesterday. Glargine was discontinued. We will need to reintroduce but hold off on the high-dose prandial insulin the patient was receiving. (5) Congenital deafness: PLAN: Apparently all the information that the stepson told me about the patient not be able to read or read lips is not accurate. Was able to communicate to the patient by talking to him directly and he expressed understanding. I did have to repeat some things but he did grasp understanding. (6) Acute respiratory failure with hypoxia: PLAN: 09/21: Patient had respiratory distress, tachypnea and hypoxia on 1 L of oxygen. First kidney biopsy was canceled as pertinent could not lay down prone or on sideways and then thrombolysis of catheter for same region. Subsequently patient was transferred to ICU. Wood Mechanist consult requested. Patient initially needs to be tried on NIPPV and if cannot salvage will need intubation. I requested Dr. Arteaga for temporary dialysis but he said nautical instrument mechanic can put it. Chest x-ray stat ordered 10/10 patient was intubated in the morning. On IV propofol and fentanyl drip. 09/24: Sputum endotracheal culture reported mixed normal respiratory amparo. MRSA PCR positive. Patient did not had fever 1 time 100.2 Fahrenheit today. On IV Zosyn. 09/25: T-max 100.7 Fahrenheit last evening. On Zosyn and vancomycin 09/26: Sputum culture shows MSSA. DC vancomycin. Started on IV cefazolin (7) Cardiomyopathy: PLAN: EF of 35% Unclear etiology More definitive cardiac evaluation, including cardiac catheterization on hold pending kidney evaluation Not a candidate for ANIA inhibitors nor angiotensin receptor blockers given acute kidney injury PLAN: Plan VTE prophylaxis: Not indicated as patient will be anticoagulated. The patient's sister and father both can hear. They state that the patient was born with congenital deafness and they tried to see if there is anything that could be remedied by going to different facilities but said there is nothing that could be done. They report that the patient read lips poorly and reads basic simple written commands or questions. Charges/Coding Visit Charges Inpatient E&M: 86196 Subs Hosp L3
[2022-09-26 15:32] LABS: Absolute Lymphocyte Count 0.73 X10^3/uL (0.83-4.51); Absolute Neutrophil Count 5.9 X10^3/uL (2.0-7.7); Basophil# 0.05 X10^3/uL; Basophil% 0.6 % (0-1); Eosinophil# 0.53 X10^3/uL; Eosinophils% 6.3 % (0-5); Hematocrit 22.5 % (40-54); Hemoglobin 7.3 g/dL (13.0-16.5); Lymphocyte # 0.73 X10^3/ul (0.83-4.51); Lymphocyte % 8.7 % (19-41); Mean Corp Hgb Conc 32.4 g/dL (32-36); Mean Corpuscular Hgb 30.3 pg (27.0-32.0); Mean Corpuscular Volume 93.4 fL (80-94); Mean Platelet Vol. 11.7 fl (6.2-12.0); Monocyte# 1.18 X10^3/uL; NRBC Flagged by Analyzer 0 % (0-5); Neutrophil # 5.91 X10^3/uL (2.7-7.7); Platelet Count 242 K/mm3 (150-450); RBC Distribution Width CV 12.6 % (11.6-14.6); RBC Distribution Width SD 42.9 fl (35.1-43.9); Red Blood Count 2.41 M/mm3 (4.6-6.2); White Blood Count 8.4 K/mm3 (4.4-11.0)
--- NOTE | 2022-09-26 15:42 | PCM.PN.REN ---
Subjective Subjective no new events Objective Data Objective Data Vital Signs: Vital Signs Temp Pulse Resp BP Pulse Ox O2 Del Method O2 Flow Rate 99.4 F H 70 14 120/55 L 93 Mechanical Ventilator 30 09/26/22 14:00 09/26/22 15:39 09/26/22 15:09 09/26/22 15:00 09/26/22 15:09 09/26/22 15:00 09/25/22 18:00 FiO2 25 09/26/22 15:09 Oxygen Flow Rate (L/min) 30 Oxygen Delivery Method Mechanical Ventilator Weight: 82.4 kg Body Mass Index (BMI) 25.8 Intake & Output: Intake and Output for Last 24 Hours 09/24/22 09/25/22 09/26/22 23:59 23:59 23:59 Intake Total 1696.61 / 1825.96 1756.05 / 1895.85 1229.90 / 1229.90 Output Total 2145 / 2145 310 / 460 1425 / 1425 Balance -448.39 / -319.04 1446.05 / 1435.85 -195.10 / -195.10 Lab / Micro Data Result Diagrams: 09/26/22 15:22 09/26/22 05:35 Labs: Laboratory Results - last 24 hr 09/25/22 16:36: POC Glucose 373 H 09/26/22 00:11: POC Glucose 299 H 09/26/22 05:35: Sodium 131 L, Potassium 4.2, Chloride 96 L, Carbon Dioxide 20.0 L, Anion Gap 15, BUN 43 H, Creatinine 6.57 H, Estim Creat Clear Calc 12.65, Est GFR (MDRD) Af Amer 11 L, Est GFR (MDRD) Non-Af 9 L, BUN/Creatinine Ratio 6.5 L, Glucose 536 H*, Calcium 7.6 L, Total Bilirubin 0.50, AST 13 L, ALT 26, Alkaline Phosphatase 100, Total Protein 5.5 L, Albumin 1.5 L, Globulin 4.0, Albumin/Globulin Ratio 0.4 L 09/26/22 11:30: POC Glucose 236 H 09/26/22 15:22: WBC 8.4, RBC 2.41 L, Hgb 7.3 L, Hct 22.5 L, MCV 93.4, MCH 30.3, MCHC 32.4 D, RDW Std Deviation 42.9, RDW Coeff of Jenifer 12.6, Plt Count 242, MPV 11.7, Immature Gran % (Auto) 0.400, Neut % (Auto) 70.0, Lymph % (Auto) 8.7 L, [place] % (Auto) 14.0 H, Eos % (Auto) 6.3 H, Baso % (Auto) 0.6, Absolute Neuts (auto) 5.9, Absolute Lymphs (auto) 0.73 L, Nucleated RBC % 0 Micro: Microbiology 09/23/22 07:34 Sputum, Tracheal Aspirate Gram Stain - Final 09/23/22 07:34 Sputum, Tracheal Aspirate Respiratory Culture - Final Staphylococcus aureus 09/22/22 07:20 Sputum, Induced/Lukens Gram Stain - Final 09/22/22 07:20 Sputum, Induced/Lukens Respiratory Culture - Final Mixed normal respiratory amparo. No Streptococcus pneumoniae, beta-hemolytic Streptococcus or Staphylococcus aureus isolated. 09/17/22 15:45 Urine, Clean Catch Urine Culture - Final Culture exhibits no growth. 09/16/22 07:05 Nasal Secretion SARS-CoV-2 & FLU Antigen (Rapid) - Final Physical Exam Narrative Intubated and sedated S1, S2, RRR Lung sounds clear anteriorly. He is on mechanical ventilator. Abdomen round, positive bowel sounds No significant edema right non-tunneled HD catheter dressing C/D/I Assessment & Plan Assessment/Plan (1) TREVOR (acute kidney injury): (2) Metabolic acidosis: (3) Benign essential hypertension: (4) Acute respiratory failure with hypoxia: (5) Type 1 diabetes: PLAN: Plan Acute kidney injury on chronic kidney disease, unspecified stage. Baseline renal function is unclear although there is notation that serum creatinine was 1.60 mg/dL in 2020.? The last available serum creatinine in [facility] was from 04/22/2014 at 1.3 mg/dL. Suspect the patient has underlying diabetic kidney disease.? He is proteinuric in nephrotic range and has had longstanding, poorly controlled diabetes with retinopathy. Serologies including ANCA, C3, and C4 are negative.? Immunofixation is negative for monoclonal protein. It is possible that we are seeing progression of diabetic kidney disease towards ESRD. Unfortunately, biopsy could not be done yesterday because of patient's respiratory status and anxiety. tunneled line in place UF today HD wednesday Metabolic acidosis. Serum bicarbonate level was as low as 13 mmol/L on 09/22/2022.? Acidosis is likely due to renal failure. There has been no diarrhea. Serum bicarbonate level has improved and stabilized with hemodialysis.
[2022-09-26 15:51] LABS: Anion Gap 10 (5-15); BUN 20 mg/dL (7-18); BUN/Creat Ratio 5.4 RATIO (10-20); Calcium,Total 8.3 mg/dL (8.5-10.1); Chloride 102 mmol/L (98-107); Creatinine, Serum 3.73 mg/dL (0.70-1.30); EST Glomerular Filtration Rate 18 mL/min (>60); Est Glom Filt Rate - Afr Amer 22 mL/min (>60); Estimated Creatinine Clearance 22.29 ml/min; Glucose 304 mg/dL (74-106); Potassium 3.5 mmol/L (3.5-5.1); Sodium Level 137 mmol/L (136-145)
[2022-09-26] MEDS: Cefazolin 1 GM/50 ML BAG IV (15:55)
[2022-09-26 18:10] LABS: Bedside Glucose 335 mg/dL (74-106)
[2022-09-26] MEDS: Latanoprost 0.005% 1 Bottle 1 DRP OPHTHALMIC (21:10)
[2022-09-26] MEDS: Atorvastatin Calcium 40 MG Tablet GT (21:11)
[2022-09-26] MEDS: NEPRO TUBE FEED 1,000 ML 45 ML GT (21:15)
[2022-09-27] VITALS (33 sets, daily range): BP systolic 114–192; BP diastolic 54–77; PULSE 50–84; RESP 12–17; TEMP 36.3–38.2; O2SAT 92–100
[2022-09-27] MEDS: Insulin Lispro 100 UNIT/ML INSULN.PEN 8 UNIT SC (02:28)
[2022-09-27] MEDS: guaiFENesin 10 ML UDC (200MG/10ML) GT ×5 (02:31→23:52)
[2022-09-27 03:01] LABS: Bedside Glucose > 500 mg/dL (74-106)
[2022-09-27] MEDS: CHLORHEXIDINE GLUC 2% CLOTH 1 EACH TOWELETTE TOPICAL (05:45)
[2022-09-27] MEDS: Acetaminophen 650 MG/20 ML UDC 1000 MG GT ×3 (05:45→21:46)
--- NOTE | 2022-09-27 05:59 | RAD_ITS ---
EXAM: XR CHEST, 1 VIEW CLINICAL INDICATION: og placement, ? aspiration TECHNIQUE: Frontal view of the chest. This report was created using [employer] report generation technology. COMPARISON: Previous chest radiographs of 09/25/2022. FINDINGS: LUNGS AND PLEURAL SPACES: The infiltrate within the left infrahilar region has partially cleared, but there is continued stable dense consolidation more inferiorly within the retrocardiac portion of the left lower lobe, silhouetting the medial left hemidiaphragm due to pneumonia and/or atelectasis; an air-fluid level has developed within this consolidation, suspicious for developing cavitation. Left lateral costophrenic angle remains blunted by a minimal pleural effusion. On the right, there is increasing hazy density within the right lower lung, consistent with enlarging pleural effusion layering posteriorly, with a moderate right pleural effusion now present. In addition to this pleural fluid, there is probable developing infiltrate in the right lower lung, which could be due to atelectasis and/or aspiration pneumonitis. HEART: Heart size is upper normal. Upper lobe pulmonary vascular markings are slightly more prominent than on the prior study, worrisome for developing pulmonary venous hypertension. MEDIASTINUM: No mediastinal widening. Trachea is midline. BONES/JOINTS: No acute osseous abnormality. SOFT TISSUES: Unremarkable. TUBES, LINES AND DEVICES: ET tube and left jugular venous catheter remain in place. Right jugular venous sheath has been removed. Enteric/OG tube has been inserted and extends into the stomach, with the tip of the tube position in the region of the gastric antrum. RAD/Chest 1 View (Portable) IMPRESSION: Satisfactory OG tube positioning. Development of an air-fluid level within the retrocardiac consolidation, suspicious for developing cavitation. Enlarging right pleural effusion with developing infiltrate in the right lower lung, due to atelectasis or possibly aspiration pneumonitis. Electronically Signed: Manish Logan MD at 6:46 EST ,
[2022-09-27 06:04] LABS: Absolute Lymphocyte Count 1.15 X10^3/uL (0.83-4.51); Absolute Neutrophil Count 6.1 X10^3/uL (2.0-7.7); Basophil# 0.04 X10^3/uL; Basophil% 0.4 % (0-1); Eosinophil# 0.45 X10^3/uL; Hemoglobin 7.3 g/dL (13.0-16.5); Lymphocyte # 1.15 X10^3/ul (0.83-4.51); Lymphocyte % 12.8 % (19-41); Mean Corp Hgb Conc 31.7 g/dL (32-36); Mean Corpuscular Hgb 30.3 pg (27.0-32.0); Mean Corpuscular Volume 95.4 fL (80-94); Mean Platelet Vol. 11.7 fl (6.2-12.0); Monocyte% 13.4 % (0-10); NRBC Flagged by Analyzer 0 % (0-5); Platelet Count 243 K/mm3 (150-450); RBC Distribution Width CV 12.6 % (11.6-14.6); RBC Distribution Width SD 43.4 fl (35.1-43.9); Red Blood Count 2.41 M/mm3 (4.6-6.2)
[2022-09-27] MEDS: Ondansetron 4 MG/2 ML Vial IV (06:10)
[2022-09-27 06:27] LABS: ALB/GLOB Ratio 0.3 RATIO (0.9-2.4); AST(SGOT) 15 U/L (15-37); Alanine Aminotransfer ALT/SGPT 17 U/L (16-61); Albumin, Serum 1.3 g/dL (3.2-5.0); Alkaline Phosphatase 106 U/L (45-117); Anion Gap 12 (5-15); BUN 31 mg/dL (7-18); BUN/Creat Ratio 6.5 RATIO (10-20); Calcium,Total 7.4 mg/dL (8.5-10.1); Chloride 100 mmol/L (98-107); Creatinine, Serum 4.76 mg/dL (0.70-1.30); EST Glomerular Filtration Rate 14 mL/min (>60); Est Glom Filt Rate - Afr Amer 16 mL/min (>60); Estimated Creatinine Clearance 17.47 ml/min; Globulin 3.9 g/dL (2.2-4.2); Glucose 520 mg/dL (74-106); Potassium 3.5 mmol/L (3.5-5.1); Protein, Total 5.2 g/dL (6.4-8.2); Sodium Level 134 mmol/L (136-145)
[2022-09-27] MEDS: Insulin Lispro 100 UNIT/ML INSULN.PEN 10 UNIT SC (06:47)
--- NOTE | 2022-09-27 07:32 | PN.HOSP_ITS ---
Subjective Subjective Seen and examined. Patient had large vomiting. There is not much residual from tube feed. Patient blood sugar high. Lantus insulin dose increased. Humalog 10 units subcutaneous every 8 hourly started. Objective Data Objective Data Vital Signs: Vital Signs Temp Pulse Resp BP Pulse Ox O2 Del Method O2 Flow Rate 99.6 F H 66 14 192/77 H 99 Mechanical Ventilator 30 09/27/22 06:00 09/27/22 06:58 09/27/22 06:58 09/27/22 06:00 09/27/22 06:58 09/27/22 06:00 09/25/22 18:00 FiO2 30 09/27/22 06:58 Oxygen Flow Rate (L/min) 30 Oxygen Delivery Method Mechanical Ventilator Weight: 178 lb 9.191 oz Body Mass Index (BMI) 25.8 Intake & Output: Intake and Output for Last 24 Hours 09/25/22 09/26/22 09/27/22 23:59 23:59 23:59 Intake Total 1756.05 / 1895.85 2325.80 / 2705.60 1029.52 / 1029.52 Output Total 310 / 460 1475 / 1625 600 / 600 Balance 1446.05 / 1435.85 850.80 / 1080.60 429.52 / 429.52 Lab / Micro Data Result Diagrams: 09/27/22 05:45 09/27/22 05:45 Labs: Laboratory Results - last 24 hr 09/26/22 11:30: POC Glucose 236 H 09/26/22 15:22: WBC 8.4, RBC 2.41 L, Hgb 7.3 L, Hct 22.5 L, MCV 93.4, MCH 30.3, MCHC 32.4 D, RDW Std Deviation 42.9, RDW Coeff of Jenifer 12.6, Plt Count 242, MPV 11.7, Immature Gran % (Auto) 0.400, Neut % (Auto) 70.0, Lymph % (Auto) 8.7 L, [place] % (Auto) 14.0 H, Eos % (Auto) 6.3 H, Baso % (Auto) 0.6, Absolute Neuts (auto) 5.9, Absolute Lymphs (auto) 0.73 L, Nucleated RBC % 0 09/26/22 15:22: Sodium 137, Potassium 3.5, Chloride 102, Carbon Dioxide 25.0, Anion Gap 10, BUN 20 H, Creatinine 3.73 H, Estim Creat Clear Calc 22.29, Est GFR (MDRD) Af Amer 22 L, Est GFR (MDRD) Non-Af 18 L, BUN/Creatinine Ratio 5.4 L, Glucose 304 H, Calcium 8.3 L 09/26/22 17:38: POC Glucose 335 H 09/27/22 02:29: POC Glucose > 500 H* 09/27/22 05:45: WBC 9.0, RBC 2.41 L, Hgb 7.3 L, Hct 23.0 L, MCV 95.4 H, MCH 30.3, MCHC 31.7 L, RDW Std Deviation 43.4, RDW Coeff of Jenifer 12.6, Plt Count 243, MPV 11.7, Immature Gran % (Auto) 0.400, Neut % (Auto) 68.0, Lymph % (Auto) 12.8 L, [place] % (Auto) 13.4 H, Eos % (Auto) 5.0, Baso % (Auto) 0.4, Absolute Neuts (auto) 6.1, Absolute Lymphs (auto) 1.15, Nucleated RBC % 0 09/27/22 05:45: Sodium 134 L, Potassium 3.5, Chloride 100, Carbon Dioxide 22.0, Anion Gap 12, BUN 31 H, Creatinine 4.76 H, Estim Creat Clear Calc 17.47, Est GFR (MDRD) Af Amer 16 L, Est GFR (MDRD) Non-Af 14 L, BUN/Creatinine Ratio 6.5 L, Glucose 520 H*, Calcium 7.4 L, Total Bilirubin 0.30, AST 15, ALT 17, Alkaline Phosphatase 106, Total Protein 5.2 L, Albumin 1.3 L, Globulin 3.9, Albumin/Globulin Ratio 0.3 L Micro: Microbiology 09/23/22 07:34 Sputum, Tracheal Aspirate Gram Stain - Final 09/23/22 07:34 Sputum, Tracheal Aspirate Respiratory Culture - Final Staphylococcus aureus 09/22/22 07:20 Sputum, Induced/Lukens Gram Stain - Final 09/22/22 07:20 Sputum, Induced/Lukens Respiratory Culture - Final Mixed normal respiratory amparo. No Streptococcus pneumoniae, beta-hemolytic Streptococcus or Staphylococcus aureus isolated. 09/17/22 15:45 Urine, Clean Catch Urine Culture - Final Culture exhibits no growth. 09/16/22 07:05 Nasal Secretion SARS-CoV-2 & FLU Antigen (Rapid) - Final Radiography Diagnostic Testing: Radiology Impression Chest X-Ray 09/27/22 05:59 IMPRESSION: Satisfactory OG tube positioning. Development of an air-fluid level within the retrocardiac consolidation, suspicious for developing cavitation. Enlarging right pleural effusion with developing infiltrate in the right lower lung, due to atelectasis or possibly aspiration pneumonitis. Electronically Signed: Manish Logan MD at 6:46 EST , Physical Exam Narrative Physical exam Discussed with parachute taper. Still intubated. Had tunneled dialysis catheter on Wednesday. General:Intubated, on vent, sedated HEENT: Atraumatic, PERRLA, EOMI, Normocephalic Oral: ET and OG tube Neck: Supple, No JVD, Negative Carotid Bruits Lungs: Air entry diminished in bilateral lung bases. No crepts on vent support Cardiovascular: Sinus Rhythm with PVCs, Normal S1, Normal S2, No murmurs Abdomen: Bowel Sounds , Soft, Non Tender, Non-Distended : Lopez catheter, clear urine. No renal angle tenderness. No suprapubic tenderness. Extremities: No edema, Capillary Refill Less than 3 Seconds Skin: No rashes, No breakdown Musculoskeletal: No Tenderness to Palpation of Joints or Extremities Neurological: Cranial nerves II-XII grossly intact, DTR 2+/4. Psych/Mental Status: Sedated. Assessment & Plan Assessment/Plan (1) Non-ST elevated myocardial infarction (non-STEMI): PLAN: Troponins were 1211. Patient did have some ST depressions in the inferior leads. Echocardiogram shows an EF of 35% with stage III diastolic dysfunction and moderate to severe global hypokinesis of the left ventricle. Pulmonary artery s ystolic pressure of 40 mmHg. Plan: * Discontinue heparin drip * cardiology following, recommended baby aspirin, amlodipine, metoprolol and as needed hydralazine * Given his kidney function there is no current plans for cardiac catheterization until his kidney function is stabilized/hemodialyzed 09/23: Plan will be cardiac cath when he is well compensated in regards to pulmonary edema. 09/27, plan for cardiac cath on Wednesday. (2) Acute renal failure: PLAN: Nonoliguric through [facility] I was able to see patient had a BMP on February 19, 2021 and his creatinine at that time was 1.66. I do not see any additional BMPs in the interim. Unclear if this is been just a chronic progression since then or this is been an acute worsening Renal ultrasound showed some medical renal disease Fractional excretion of sodium is 3.56% Plan: Losartan on hold. Discussed with the parachute taper. Patient had a scheduled renal biopsy and tunneled hemodialysis catheter which was canceled due to respiratory distress. Patient has NON-anion gap metabolic acidosis, bicarb 15, chloride 107. Creatinine 8.92. 09/22:Chest x-ray portable shows bilateral pulmonary edema and right-sided pleural effusion. Patient had temporary dialysis catheter through right IJ. Dialysis orders started. Discussed with the parachute taper. 09/23: Plan for Dialysis Today. Discussed with the Welder Apprentice Arc. Tunneled dialysis catheter posted for Wednesday. 09/24: Plan for dialysis today. Patient is 1775 mL positive fluid. Rest is stays same. 09/25: Plan for tunneled dialysis catheter today 09/26: Dialysis catheter on right upper chest, surgical site does not show hematoma or bleeding. Temporary dialysis catheter removed. (3) Hypertensive emergency: PLAN: Improved considered for endorgan damage with acute kidney injury continue amlodipine Losartan held for acute kidney injury Patient will be also started on metoprolol titrate As needed hydralazine 09/22: BP on lower side due to sedative but not in hypotensive range 09/24: BP is normal. 09/27: Blood pressure high. Labetalol IV as needed also ordered. 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 Blood sugars elevated but patient is not currently in DKA Continue with basal insulin to 25 units daily and his prandial insulin is at 38 but I will change it over 30 but also have a sliding scale insulin. Last A1c from September 14 was 7 Patient did have hypoglycemic down to 19 yesterday. Glargine was discontinued. We will need to reintroduce but hold off on the high-dose prandial insulin the patient was receiving. 09/27: Patient glucose is high in 500s. Lantus dose increased to 15 subcutaneous twice daily along with Humalog insulin 15 subcutaneous every 8 hourly. Hold due to vomiting. (5) Congenital deafness: PLAN: Apparently all the information that the stepson told me about the patient not be able to read or read lips is not accurate. Was able to communicate to the patient by talking to him directly and he expressed understanding. I did have to repeat some things but he did grasp understanding. (6) Acute respiratory failure with hypoxia: PLAN: 09/21: Patient had respiratory distress, tachypnea and hypoxia on 1 L of oxygen. First kidney biopsy was canceled as pertinent could not lay down prone or on sideways and then thrombolysis of catheter for same region. Subsequently patient was transferred to ICU. Oil Pump Station Operator Chief consult requested. Patient initially needs to be tried on NIPPV and if cannot salvage will need intubation. I requested Dr. Arteaga for temporary dialysis but he said parachute taper can put it. Chest x-ray stat ordered 10/10 patient was intubated in the morning. On IV propofol and fentanyl drip. 09/24: Sputum endotracheal culture reported mixed normal respiratory amparo. MRSA PCR positive. Patient did not had fever 1 time 100.2 Fahrenheit today. On IV Zosyn. 09/25: T-max 100.7 Fahrenheit last evening. On Zosyn and vancomycin 09/26: Sputum culture shows MSSA. DC vancomycin. Started on IV cefazolin IV Zosyn since 09/23. (7) Cardiomyopathy: PLAN: EF of 35% Unclear etiology More definitive cardiac evaluation, including cardiac catheterization on hold pending kidney evaluation Not a candidate for ANIA inhibitors nor angiotensin receptor blockers given acute kidney injury PLAN: Plan VTE prophylaxis: Not indicated as patient will be anticoagulated. The patient's sister and father both can hear. They state that the patient was born with congenital deafness and they tried to see if there is anything that could be remedied by going to different facilities but said there is nothing that could be done. They report that the patient read lips poorly and reads basic simple written commands or questions. Charges/Coding Visit Charges Inpatient E&M: 71929 Subs Hosp L3
[2022-09-27] MEDS: Insulin Glargine-YFGN 100 UNIT/ML Pen 25 UNIT SC ×2 (07:53→21:46)
[2022-09-27] MEDS: Propofol 10MG/Ml 1,000 MG/100 ML Bottle 9.8 MG CONT INF ×2 (07:58→16:43)
[2022-09-27] MEDS: Chlorhexidine 15 ML PO ×2 (10:33→21:57)
[2022-09-27] MEDS: Senna/Docusate Sodium 1 Tablet 2 TABLET GT (10:33)
[2022-09-27] MEDS: Dorzolamide HCL/Timolol 10 ml Bottle 1 DRP OPHTHALMIC ×2 (10:33→21:46)
--- NOTE | 2022-09-27 10:41 | PN.CC_ITS ---
Assessment & Plan Assessment/Plan (1) Acute respiratory failure with hypoxia: PLAN: Acute respiratory failure with hypoxia due to hypervolemia, TREVOR on dialysis vomiting and possible aspiration, on empiric antibiotics plan is to continue aggressive dialysis via new tunneled catheter to be placed in OR 09/25, wean and extubate when pulmonary edema has improved s/p dialysis today (1L) removed, will plan on dialysis tomorrow as well Will keep him intubated until cardiac cath on Wednesday Continue empiric Zosyn and Vanco, chlorhexidine, ventilator bundle, sedation with propofol and fentanyl at 25-125 respectively, Continue assist-control ventilation Daily sedation lightening head of bed 30 degrees and soft restraints as needed to prevent pulling of tubes and self injury. (2) Non-ST elevated myocardial infarction (non-STEMI): PLAN: NSTEMI with ejection fraction of 35% and stage III diastolic dysfunction, pulmonary hypertension. Plan is for medical management, with atorvastatin Cardiology consulted, catheterization planned for Wednesday. Will keep him intubated until cardiac cath on Wednesday (3) TREVOR (acute kidney injury): PLAN: Dialysis per nephrology; BUN is 28 and creatinine 4.83 Tunneled catheter to be placed in OR today then continue aggressive dialysis per renal to remove excess fluid and improve respiratory status to enable extubation Will keep him intubated until cardiac cath on Wednesday (4) On mechanically assisted ventilation: PLAN: As above (5) Type 1 diabetes: PLAN: Glucose with suboptimal control; insulin drip was increased. Tube feeds held for n.p.o. 4 OR adjust insulin dosing as needed by primary. Routinely rechecking CMP, CBC, phosphate and magnesium today. (6) Cardiomyopathy: PLAN: Stage III diastolic dysfunction with EF of 35%. Other chronic problems include acid reflux, hypertension, congenital deafness, which will be monitored and managed as needed. Patient is on IV Protonix and ICU anticoagulation. (7) Vomiting: PLAN: Vomiting during SBT today - probably secondary to gag PLAN: Plan Will resume low rate tube feeds To confirm with cardiology RE cath tomorrow and hold tube feeds after midnight accordingly Subjective Subjective Seen and examined. Patient had large vomiting. There is not much residual from tube feed. Patient blood sugar high. Lantus insulin dose increased. Humalog 10 units subcutaneous every 8 hourly started. Objective Data Objective Data Vital Signs: Vital Signs Temp Pulse Resp BP Pulse Ox O2 Del Method O2 Flow Rate 36.7 C 53 L 14 129/59 H 99 Mechanical Ventilator 30 09/27/22 10:00 09/27/22 10:00 09/27/22 10:00 09/27/22 10:00 09/27/22 10:00 09/27/22 10:00 09/25/22 18:00 FiO2 30 09/27/22 10:00 Oxygen Flow Rate (L/min) 30 Oxygen Delivery Method Mechanical Ventilator Weight: 81 kg Body Mass Index (BMI) 25.8 Intake & Output: Intake and Output for Last 24 Hours 09/25/22 09/26/22 09/27/22 23:59 23:59 23:59 Intake Total 1756.05 / 1895.85 2325.80 / 2705.60 1131.42 / 1131.42 Output Total 310 / 460 1475 / 1625 600 / 600 Balance 1446.05 / 1435.85 850.80 / 1080.60 531.42 / 531.42 Lab / Micro Data Result Diagrams: 09/27/22 05:45 09/27/22 05:45 Labs: Laboratory Results - last 24 hr 09/26/22 11:30: POC Glucose 236 H 09/26/22 15:22: WBC 8.4, RBC 2.41 L, Hgb 7.3 L, Hct 22.5 L, MCV 93.4, MCH 30.3, MCHC 32.4 D, RDW Std Deviation 42.9, RDW Coeff of Jenifer 12.6, Plt Count 242, MPV 11.7, Immature Gran % (Auto) 0.400, Neut % (Auto) 70.0, Lymph % (Auto) 8.7 L, [place] % (Auto) 14.0 H, Eos % (Auto) 6.3 H, Baso % (Auto) 0.6, Absolute Neuts (auto) 5.9, Absolute Lymphs (auto) 0.73 L, Nucleated RBC % 0 09/26/22 15:22: Sodium 137, Potassium 3.5, Chloride 102, Carbon Dioxide 25.0, Anion Gap 10, BUN 20 H, Creatinine 3.73 H, Estim Creat Clear Calc 22.29, Est GFR (MDRD) Af Amer 22 L, Est GFR (MDRD) Non-Af 18 L, BUN/Creatinine Ratio 5.4 L, Glucose 304 H, Calcium 8.3 L 09/26/22 17:38: POC Glucose 335 H 09/27/22 02:29: POC Glucose > 500 H* 09/27/22 05:45: WBC 9.0, RBC 2.41 L, Hgb 7.3 L, Hct 23.0 L, MCV 95.4 H, MCH 30.3, MCHC 31.7 L, RDW Std Deviation 43.4, RDW Coeff of Jenifer 12.6, Plt Count 243, MPV 11.7, Immature Gran % (Auto) 0.400, Neut % (Auto) 68.0, Lymph % (Auto) 12.8 L, [place] % (Auto) 13.4 H, Eos % (Auto) 5.0, Baso % (Auto) 0.4, Absolute Neuts (auto) 6.1, Absolute Lymphs (auto) 1.15, Nucleated RBC % 0 09/27/22 05:45: Sodium 134 L, Potassium 3.5, Chloride 100, Carbon Dioxide 22.0, Anion Gap 12, BUN 31 H, Creatinine 4.76 H, Estim Creat Clear Calc 17.47, Est GFR (MDRD) Af Amer 16 L, Est GFR (MDRD) Non-Af 14 L, BUN/Creatinine Ratio 6.5 L, Glucose 520 H*, Calcium 7.4 L, Total Bilirubin 0.30, AST 15, ALT 17, Alkaline Phosphatase 106, Total Protein 5.2 L, Albumin 1.3 L, Globulin 3.9, Albumin/Globulin Ratio 0.3 L Micro: Microbiology 09/23/22 07:34 Sputum, Tracheal Aspirate Gram Stain - Final 09/23/22 07:34 Sputum, Tracheal Aspirate Respiratory Culture - Final Staphylococcus aureus 09/22/22 07:20 Sputum, Induced/Lukens Gram Stain - Final 09/22/22 07:20 Sputum, Induced/Lukens Respiratory Culture - Final Mixed normal respiratory amparo. No Streptococcus pneumoniae, beta-hemolytic Streptococcus or Staphylococcus aureus isolated. 09/17/22 15:45 Urine, Clean Catch Urine Culture - Final Culture exhibits no growth. 09/16/22 07:05 Nasal Secretion SARS-CoV-2 & FLU Antigen (Rapid) - Final Radiography Diagnostic Testing: Radiology Impression Chest X-Ray 09/27/22 05:59 IMPRESSION: Satisfactory OG tube positioning. Development of an air-fluid level within the retrocardiac consolidation, suspicious for developing cavitation. Enlarging right pleural effusion with developing infiltrate in the right lower lung, due to atelectasis or possibly aspiration pneumonitis. Electronically Signed: Manish Logan MD at 6:46 EST , Physical Exam Narrative Well-developed well-nourished sedated no acute distress on ventilator. HEENT: Intubated, endotracheal tube is 7.5 mm ID at 25 cm at the lip, infrequent cough, no sputum with suctioning. Neck is supple with a temporary dialysis catheter right IJ, good condition with no wheezes rales or rhonchi. No cough and was suctioned Abdomen is soft nontender OG tube has yellow-brownish secretions bowels are normal active no tenderness Lopez in place, clear yellow urine pale Neuro, sedated, incomplete exam Extremities have no clubbing cyanosis or edema Skin is warm and dry I's and O's remarkable for urine output 0.46 mils per kilogram per hour Patient was noted to have liquid diarrhea yesterday Charges/Coding Addendum Addendum: critical care time = 33 minutes Billing code = [id number]
[2022-09-27] MEDS: Insulin Lispro 100 UNIT/ML INSULN.PEN SC ×3 (12:01→23:00)
[2022-09-27] MEDS: Insulin Lispro 100 UNIT/ML INSULN.PEN 15 UNIT SC ×2 (12:02→22:59)
[2022-09-27 12:25] LABS: Bedside Glucose 426 mg/dL (74-106)
[2022-09-27] MEDS: Cefazolin 1 GM/50 ML BAG IV (15:32)
--- NOTE | 2022-09-27 16:10 | PCM.PN.REN ---
Subjective Subjective remains intubated, no pressors. Chest x-ray this a.m. read as possible cavitation. Was on breathing trial, had a vomiting, possible aspiration pneumonitis. Objective Data Objective Data Vital Signs: Vital Signs Temp Pulse Resp BP Pulse Ox O2 Del Method O2 Flow Rate 97.8 F 54 L 14 134/62 H 100 Mechanical Ventilator 30 09/27/22 14:00 09/27/22 15:50 09/27/22 15:50 09/27/22 14:00 09/27/22 15:50 09/27/22 15:36 09/25/22 18:00 FiO2 30 09/27/22 15:50 Oxygen Flow Rate (L/min) 30 Oxygen Delivery Method Mechanical Ventilator Weight: 81 kg Body Mass Index (BMI) 25.8 Intake & Output: Intake and Output for Last 24 Hours 09/25/22 09/26/22 09/27/22 23:59 23:59 23:59 Intake Total 1756.05 / 1895.85 2325.80 / 2705.60 1617.92 / 1617.92 Output Total 310 / 460 1475 / 1625 750 / 750 Balance 1446.05 / 1435.85 850.80 / 1080.60 867.92 / 867.92 Lab / Micro Data Result Diagrams: 09/27/22 05:45 09/27/22 05:45 Labs: Laboratory Results - last 24 hr 09/26/22 17:38: POC Glucose 335 H 09/27/22 02:29: POC Glucose > 500 H* 09/27/22 05:45: WBC 9.0, RBC 2.41 L, Hgb 7.3 L, Hct 23.0 L, MCV 95.4 H, MCH 30.3, MCHC 31.7 L, RDW Std Deviation 43.4, RDW Coeff of Jenifer 12.6, Plt Count 243, MPV 11.7, Immature Gran % (Auto) 0.400, Neut % (Auto) 68.0, Lymph % (Auto) 12.8 L, [place] % (Auto) 13.4 H, Eos % (Auto) 5.0, Baso % (Auto) 0.4, Absolute Neuts (auto) 6.1, Absolute Lymphs (auto) 1.15, Nucleated RBC % 0 09/27/22 05:45: Sodium 134 L, Potassium 3.5, Chloride 100, Carbon Dioxide 22.0, Anion Gap 12, BUN 31 H, Creatinine 4.76 H, Estim Creat Clear Calc 17.47, Est GFR (MDRD) Af Amer 16 L, Est GFR (MDRD) Non-Af 14 L, BUN/Creatinine Ratio 6.5 L, Glucose 520 H*, Calcium 7.4 L, Total Bilirubin 0.30, AST 15, ALT 17, Alkaline Phosphatase 106, Total Protein 5.2 L, Albumin 1.3 L, Globulin 3.9, Albumin/Globulin Ratio 0.3 L 09/27/22 12:00: POC Glucose 426 H Micro: Microbiology 09/23/22 07:34 Sputum, Tracheal Aspirate Gram Stain - Final 09/23/22 07:34 Sputum, Tracheal Aspirate Respiratory Culture - Final Staphylococcus aureus 09/22/22 07:20 Sputum, Induced/Lukens Gram Stain - Final 09/22/22 07:20 Sputum, Induced/Lukens Respiratory Culture - Final Mixed normal respiratory amparo. No Streptococcus pneumoniae, beta-hemolytic Streptococcus or Staphylococcus aureus isolated. 09/17/22 15:45 Urine, Clean Catch Urine Culture - Final Culture exhibits no growth. 09/16/22 07:05 Nasal Secretion SARS-CoV-2 & FLU Antigen (Rapid) - Final Radiography Diagnostic Testing: Radiology Impression Chest X-Ray 09/27/22 05:59 IMPRESSION: Satisfactory OG tube positioning. Development of an air-fluid level within the retrocardiac consolidation, suspicious for developing cavitation. Enlarging right pleural effusion with developing infiltrate in the right lower lung, due to atelectasis or possibly aspiration pneumonitis. Electronically Signed: Manish Logan MD at 6:46 EST , Physical Exam Narrative Intubated and sedated S1, S2, RRR Lung sounds clear anteriorly. He is on mechanical ventilator. Abdomen round, positive bowel sounds No significant edema right non-tunneled HD catheter dressing C/D/I Assessment & Plan Assessment/Plan (1) TREVOR (acute kidney injury): (2) Metabolic acidosis: (3) Benign essential hypertension: (4) Acute respiratory failure with hypoxia: (5) Type 1 diabetes: PLAN: Plan Acute kidney injury on chronic kidney disease, unspecified stage. Baseline renal function is unclear although there is notation that serum creatinine was 1.60 mg/dL in 2020.? The last available serum creatinine in [facility] was from 04/22/2014 at 1.3 mg/dL. Suspect the patient has underlying diabetic kidney disease.? He is proteinuric in nephrotic range and has had longstanding, poorly controlled diabetes with retinopathy. Serologies including ANCA, C3, and C4 are negative.? Immunofixation is negative for monoclonal protein. It is possible that we are seeing progression of diabetic kidney disease towards ESRD. Unfortunately, biopsy could not be done because of patient's respiratory status and anxiety. tunneled line in place HD wednesday Metabolic acidosis. Serum bicarbonate level was as low as 13 mmol/L on 09/22/2022.? Acidosis is likely due to renal failure. There has been no diarrhea. Serum bicarbonate level has improved and stabilized with hemodialysis. Will eventually need a coronary angiogram. From a nephrology standpoint okay to proceed with this. Minimal oxygen requirements on ventilator. Chest x-ray consistent with pneumonitis. Dialysis 09/28. Discussed with ICU staff
[2022-09-27 18:25] LABS: Bedside Glucose 356 mg/dL (74-106)
[2022-09-27] MEDS: Atorvastatin Calcium 40 MG Tablet GT (21:45)
[2022-09-27] MEDS: Latanoprost 0.005% 1 Bottle 1 DRP OPHTHALMIC (21:46)
[2022-09-27] MEDS: 0.9% Saline Lock 10 ML Syringe IV (21:47)
[2022-09-27 23:20] LABS: Bedside Glucose 294 mg/dL (74-106)
[2022-09-28] VITALS (36 sets, daily range): BP systolic 114–193; BP diastolic 56–113; PULSE 47–96; RESP 12–20; TEMP 35.6–37.3; O2SAT 83–100
[2022-09-28] MEDS: Propofol 10MG/Ml 1,000 MG/100 ML Bottle 7.4 MG CONT INF (04:00)
[2022-09-28] MEDS: CHLORHEXIDINE GLUC 2% CLOTH 1 EACH TOWELETTE TOPICAL ×2 (04:45→07:42)
[2022-09-28] MEDS: Acetaminophen 650 MG/20 ML UDC 1000 MG GT (05:02)
[2022-09-28] MEDS: guaiFENesin 10 ML UDC (200MG/10ML) GT (05:02)
[2022-09-28] MEDS: 0.9% Saline Lock 10 ML Syringe IV (05:03)
[2022-09-28] MEDS: Insulin Lispro 100 UNIT/ML INSULN.PEN 15 UNIT SC ×2 (05:03→21:38)
[2022-09-28] MEDS: Insulin Lispro 100 UNIT/ML INSULN.PEN SC (05:03)
[2022-09-28 05:14] LABS: Absolute Lymphocyte Count 1.05 X10^3/uL (0.83-4.51); Basophil# 0.05 X10^3/uL; Basophil% 0.6 % (0-1); Eosinophil# 0.71 X10^3/uL; Eosinophils% 7.9 % (0-5); Hematocrit 25.4 % (40-54); Lymphocyte # 1.05 X10^3/ul (0.83-4.51); Lymphocyte % 11.6 % (19-41); Mean Corp Hgb Conc 31.5 g/dL (32-36); Mean Corpuscular Hgb 29.7 pg (27.0-32.0); Mean Corpuscular Volume 94.4 fL (80-94); Mean Platelet Vol. 11.2 fl (6.2-12.0); Monocyte# 1.15 X10^3/uL; Monocyte% 12.7 % (0-10); NRBC Flagged by Analyzer 0 % (0-5); Neutrophil # 6.03 X10^3/uL (2.7-7.7); Neutrophil % 66.8 % (47-70); Platelet Count 270 K/mm3 (150-450); RBC Distribution Width CV 12.9 % (11.6-14.6); RBC Distribution Width SD 44.1 fl (35.1-43.9); Red Blood Count 2.69 M/mm3 (4.6-6.2)
[2022-09-28 05:26] LABS: Bedside Glucose 208 mg/dL (74-106)
[2022-09-28 05:35] LABS: ALB/GLOB Ratio 0.3 RATIO (0.9-2.4); AST(SGOT) 24 U/L (15-37); Alanine Aminotransfer ALT/SGPT 13 U/L (16-61); Albumin, Serum 1.4 g/dL (3.2-5.0); Alkaline Phosphatase 119 U/L (45-117); Anion Gap 13 (5-15); BUN 42 mg/dL (7-18); BUN/Creat Ratio 6.6 RATIO (10-20); Calcium,Total 8.5 mg/dL (8.5-10.1); Chloride 98 mmol/L (98-107); Creatinine, Serum 6.38 mg/dL (0.70-1.30); EST Glomerular Filtration Rate 10 mL/min (>60); Est Glom Filt Rate - Afr Amer 12 mL/min (>60); Estimated Creatinine Clearance 13.03 ml/min; Globulin 4.4 g/dL (2.2-4.2); Glucose 231 mg/dL (74-106); Potassium 3.5 mmol/L (3.5-5.1); Protein, Total 5.8 g/dL (6.4-8.2); Sodium Level 135 mmol/L (136-145)
[2022-09-28] MEDS: Ondansetron 4 MG/2 ML Vial IV (05:54)
[2022-09-28] MEDS: TITRATION PARAMETER CHANGE 1 EACH IV (06:50)
--- NOTE | 2022-09-28 07:31 | PN.CC_ITS ---
Assessment & Plan Assessment/Plan (1) Acute respiratory failure with hypoxia: PLAN: Plan RECOMMENDATIONS: 1. Continue assist-control mode mechanical ventilation. Wean FiO2/PEEP for saturations greater than 90%. 2. Continue empiric antimicrobials to cover for potential aspiration. 3. Propofol and fentanyl for sedation. SAT/SBT per protocol 4. Continue Protonix for GI prophylaxis. 5. Ongoing dialysis support per nephrology recommendations. 6. Hold extubation today given need for heart catheterization and hemodialysis IMPRESSIONS: 1. Acute hypoxemic respiratory failure Appears to be secondary to hypervolemia in the setting of acute kidney injury. The patient's chest x-ray continues to demonstrate progressive bilatera l pulmonary vascular congestion and a right-sided pleural effusion. The patient has been unable to lay flat to facilitate placement of a dialysis catheter. Therefore, he was intubated on September 22, in order to facilitate placement of a temporary HD line and subsequent dialysis support. Patient has been receiving hemodialysis and oxygenation continues to improve. Patient is to have a heart catheterization today followed by dialysis. Given the timing, will hold off on any extubation today, but may proceed with extubation tomorrow. 2. Acute kidney injury Unclear etiology. Nephrology is following to assist with medical management. The patient is in need of hemodialysis and volume optimization. Patient is planning on having dialysis today following heart catheterization. Management as noted above. 3. NSTEMI The patient's echocardiogram demonstrated a depressed ejection fraction at 35% with stage III diastolic dysfunction and pulmonary hypertension. Cardiology is following to assist with medical management. Discussed with Dr. Hampton. Plan for heart catheterization this morning while on ventilator. 4. Diabetes mellitus/hypertension/congenital deafness/GERD Complicates care, management, recovery and prognosis. Continue home medications as indicated. TIME: 33 minutes of critical care time, inclusive of procedures, was spent addressing the patient's acute hypoxemic respiratory failure, acute kidney injury, NSTEMI, review of all data and collaboration with care team. Subjective Subjective Patient did okay overnight. No acute issues were reported. Patient did have a spontaneous breathing trial this morning, but was not extubated secondary to concerns for need of a heart catheterization. Patient did have dialysis yesterday with volume removal and tolerated well. Patient continues to have gagging episodes associated with spontaneous breathing trials, but no emesis was noted today. Objective Data Objective Data Vital Signs: Vital Signs Temp Pulse Resp BP Pulse Ox O2 Del Method O2 Flow Rate 36.7 C 70 20 H 174/79 H 97 Mechanical Ventilator 30 09/28/22 05:00 09/28/22 05:25 09/28/22 05:25 09/28/22 05:00 09/28/22 05:25 09/28/22 05:00 09/25/22 18:00 FiO2 25 09/28/22 05:00 Oxygen Flow Rate (L/min) 30 Oxygen Delivery Method Mechanical Ventilator Weight: 83.3 kg Body Mass Index (BMI) 25.8 Intake & Output: Intake and Output for Last 24 Hours 09/26/22 09/27/22 09/28/22 23:59 23:59 23:59 Intake Total 2325.80 / 2705.60 2507.36 / 2644.66 615.04 / 615.04 Output Total 1475 / 1625 940 / 940 Balance 850.80 / 1080.60 1567.36 / 1704.66 615.04 / 615.04 Lab / Micro Data Attestation: I reviewed the patient's lab results. Result Diagrams: 09/28/22 05:05 09/28/22 05:05 Labs: Laboratory Results - last 24 hr 09/27/22 12:00: POC Glucose 426 H 09/27/22 17:42: POC Glucose 356 H 09/27/22 22:58: POC Glucose 294 H 09/28/22 05:02: POC Glucose 208 H 09/28/22 05:05: WBC 9.0, RBC 2.69 L, Hgb 8.0 L, Hct 25.4 L, MCV 94.4 H, MCH 29.7, MCHC 31.5 L, RDW Std Deviation 44.1 H, RDW Coeff of Jenifer 12.9, Plt Count 270, MPV 11.2, Immature Gran % (Auto) 0.400, Neut % (Auto) 66.8, Lymph % (Auto) 11.6 L, [place] % (Auto) 12.7 H, Eos % (Auto) 7.9 H, Baso % (Auto) 0.6, Absolute Neuts (auto) 6.0, Absolute Lymphs (auto) 1.05, Nucleated RBC % 0 09/28/22 05:05: Sodium 135 L, Potassium 3.5, Chloride 98, Carbon Dioxide 24.0, Anion Gap 13, BUN 42 H, Creatinine 6.38 H, Estim Creat Clear Calc 13.03, Est GFR (MDRD) Af Amer 12 L, Est GFR (MDRD) Non-Af 10 L, BUN/Creatinine Ratio 6.6 L, Glucose 231 H, Calcium 8.5, Total Bilirubin 0.30, AST 24, ALT 13 L, Alkaline Phosphatase 119 H, Total Protein 5.8 L, Albumin 1.4 L, Globulin 4.4 H, Albumin/Globulin Ratio 0.3 L Micro: Microbiology 09/23/22 07:34 Sputum, Tracheal Aspirate Gram Stain - Final 09/23/22 07:34 Sputum, Tracheal Aspirate Respiratory Culture - Final Staphylococcus aureus 09/22/22 07:20 Sputum, Induced/Lukens Gram Stain - Final 09/22/22 07:20 Sputum, Induced/Lukens Respiratory Culture - Final Mixed normal respiratory amparo. No Streptococcus pneumoniae, beta-hemolytic Streptococcus or Staphylococcus aureus isolated. 09/17/22 15:45 Urine, Clean Catch Urine Culture - Final Culture exhibits no growth. 09/16/22 07:05 Nasal Secretion SARS-CoV-2 & FLU Antigen (Rapid) - Final Physical Exam Const Constitutional Narrative: Intubated, sedated and mechanically ventilated. No ventilator dyssynchrony. Makes eye contact during spontaneous breathing trial General Appearance: patient mechanically ventilated; Negative for in distress HEENT normocephalic and head/scalp atraumatic Mouth: endotracheal tube in place and OG tube in place Eyes PERRL, EOMs intact bilaterally and conjunctivae normal Neck supple Neck Narrative: Tunneled hemodialysis catheter noted. General: trachea midline Chest inspection of chest normal Resp Auscultation: diminished lung sounds; Negative for rales, rhonchi or wheezes Cardio regular rate, regular rhythm, S1 normal heart sound, S2 normal heart sound, no murmurs, no rub and no gallops GI normal to inspection, nondistended, normoactive bowel sounds no CVA tenderness Extremity General Extremity: edema Skin no rashes or lesions noted Neuro Sensorium / Orientation: sedated on vent Psych Mood & Affect: flat affect Charges/Coding Procedures Hospitalists Procedures: 72465 Critial Care 1st Hr
[2022-09-28] MEDS: Chlorhexidine 15 ML PO ×2 (07:42→21:29)
--- NOTE | 2022-09-28 08:42 | PCM.PN.HOSP ---
Subjective Subjective Follow-up for respiratory failure, on dialysis Objective Data Objective Data Vital Signs: Vital Signs Temp Pulse Resp BP Pulse Ox O2 Del Method O2 Flow Rate 99.2 F H 58 L 14 128/60 H 96 Mechanical Ventilator 30 09/28/22 08:00 09/28/22 08:00 09/28/22 08:00 09/28/22 08:00 09/28/22 08:00 09/28/22 08:00 09/25/22 18:00 FiO2 25 09/28/22 08:00 Oxygen Flow Rate (L/min) 30 Oxygen Delivery Method Mechanical Ventilator Weight: 183 lb 10.321 oz Body Mass Index (BMI) 25.8 Intake & Output: Intake and Output for Last 24 Hours 09/26/22 09/27/22 09/28/22 23:59 23:59 23:59 Intake Total 2325.80 / 2705.60 2507.36 / 2644.66 782.09 / 782.09 Output Total 1475 / 1625 940 / 940 200 / 200 Balance 850.80 / 1080.60 1567.36 / 1704.66 582.09 / 582.09 Lab / Micro Data Result Diagrams: 09/28/22 05:05 09/28/22 05:05 Labs: Laboratory Results - last 24 hr 09/27/22 12:00: POC Glucose 426 H 09/27/22 17:42: POC Glucose 356 H 09/27/22 22:58: POC Glucose 294 H 09/28/22 05:02: POC Glucose 208 H 09/28/22 05:05: WBC 9.0, RBC 2.69 L, Hgb 8.0 L, Hct 25.4 L, MCV 94.4 H, MCH 29.7, MCHC 31.5 L, RDW Std Deviation 44.1 H, RDW Coeff of Jenifer 12.9, Plt Count 270, MPV 11.2, Immature Gran % (Auto) 0.400, Neut % (Auto) 66.8, Lymph % (Auto) 11.6 L, [place] % (Auto) 12.7 H, Eos % (Auto) 7.9 H, Baso % (Auto) 0.6, Absolute Neuts (auto) 6.0, Absolute Lymphs (auto) 1.05, Nucleated RBC % 0 09/28/22 05:05: Sodium 135 L, Potassium 3.5, Chloride 98, Carbon Dioxide 24.0, Anion Gap 13, BUN 42 H, Creatinine 6.38 H, Estim Creat Clear Calc 13.03, Est GFR (MDRD) Af Amer 12 L, Est GFR (MDRD) Non-Af 10 L, BUN/Creatinine Ratio 6.6 L, Glucose 231 H, Calcium 8.5, Total Bilirubin 0.30, AST 24, ALT 13 L, Alkaline Phosphatase 119 H, Total Protein 5.8 L, Albumin 1.4 L, Globulin 4.4 H, Albumin/Globulin Ratio 0.3 L Micro: Microbiology 09/23/22 07:34 Sputum, Tracheal Aspirate Gram Stain - Final 09/23/22 07:34 Sputum, Tracheal Aspirate Respiratory Culture - Final Staphylococcus aureus 09/22/22 07:20 Sputum, Induced/Lukens Gram Stain - Final 09/22/22 07:20 Sputum, Induced/Lukens Respiratory Culture - Final Mixed normal respiratory amparo. No Streptococcus pneumoniae, beta-hemolytic Streptococcus or Staphylococcus aureus isolated. 09/17/22 15:45 Urine, Clean Catch Urine Culture - Final Culture exhibits no growth. 09/16/22 07:05 Nasal Secretion SARS-CoV-2 & FLU Antigen (Rapid) - Final Physical Exam Narrative Physical exam Plan for dialysis today Still intubated. Had tunneled dialysis catheter on Wednesday. General:Intubated, on vent, sedated HEENT: Atraumatic, PERRLA, EOMI, Normocephalic Oral: ET and OG tube Neck: Supple, No JVD, Negative Carotid Bruits Lungs: Air entry diminished in bilateral lung bases. No crepts on vent support Cardiovascular: Sinus Rhythm, Normal S1, Normal S2, No murmurs Abdomen: Bowel Sounds , Soft, Non Tender, Non-Distended : Lopez catheter, clear urine. No renal angle tenderness. No suprapubic tenderness. Extremities: No edema, Capillary Refill Less than 3 Seconds Skin: No rashes, No breakdown Musculoskeletal: No Tenderness to Palpation of Joints or Extremities Neurological: Cranial nerves II-XII grossly intact, DTR 2+/4. Psych/Mental Status: Likely sedated. Assessment & Plan Assessment/Plan (1) Non-ST elevated myocardial infarction (non-STEMI): PLAN: Troponins were 1211. Patient did have some ST depressions in the inferior leads. Echocardiogram shows an EF of 35% with stage III diastolic dysfunction and moderate to severe global hypokinesis of the left ventricle. Pulmonary artery systolic pressure of 40 mmHg. Plan: Discontinue heparin drip cardiology following, recommended baby aspirin, amlodipine, metoprolol and as needed hydralazine Given his kidney function there is no current plans for cardiac catheterization until his kidney function is stabilized/hemodialyzed 09/23: Plan will be cardiac cath when he is well compensated in regards to pulmonary edema. 09/27, plan for cardiac cath on Wednesday. (2) Acute renal failure: PLAN: Nonoliguric through [facility] I was able to see patient had a BMP on February 19, 2021 and his creatinine at that time was 1.66. I do not see any additional BMPs in the interim. Unclear if this is been just a chronic progression since then or this is been an acute worsening Renal ultrasound showed some medical renal disease Fractional excretion of sodium is 3.56% Plan: Losartan on hold. Discussed with the geophysical support specialist. Patient had a scheduled renal biopsy and tunneled hemodialysis catheter which was canceled due to respiratory distress. Patient has NON-anion gap metabolic acidosis, bicarb 15, chloride 107. Creatinine 8.92. 09/22:Chest x-ray portable shows bilateral pulmonary edema and right-sided pleural effusion. Patient had temporary dialysis catheter through right IJ. Dialysis orders started. Discussed with the geophysical support specialist. 09/23: Plan for Dialysis Today. Discussed with the Drywall Sander. Tunneled dialysis catheter posted for Wednesday. 09/24: Plan for dialysis today. Patient is 1775 mL positive fluid. Rest is stays same. 09/25: Plan for tunneled dialysis catheter today 09/26: Dialysis catheter on right upper chest, surgical site does not show hematoma or bleeding. Temporary dialysis catheter removed. (3) Hypertensive emergency: PLAN: Improved considered for endorgan damage with acute kidney injury continue amlodipine Losartan held for acute kidney injury Patient will be also started on metoprolol titrate As needed hydralazine 09/22: BP on lower side due to sedative but not in hypotensive range 09/24: BP is normal. 09/27: Blood pressure high. Labetalol IV as needed also ordered. 09/28: Blood pressure normal. 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 Blood sugars elevated but patient is not currently in DKA Continue with basal insulin to 25 units daily and his prandial insulin is at 38 but I will change it over 30 but also have a sliding scale insulin. Last A1c from September 14 was 7 Patient did have hypoglycemic down to 19 yesterday. Glargine was discontinued. We will need to reintroduce but hold off on the high-dose prandial insulin the patient was receiving. 09/27: Patient glucose is high in 500s. Lantus dose increased to 15 subcutaneous twice daily along with Humalog insulin 15 subcutaneous every 8 hourly. Hold due to vomiting. (5) Congenital deafness: PLAN: Apparently all the information that the stepson told me about the patient not be able to read or read lips is not accurate. Was able to communicate to the patient by talking to him directly and he expressed understanding. I did have to repeat some things but he did grasp understanding. (6) Acute respiratory failure with hypoxia: PLAN: 09/21: Patient had respiratory distress, tachypnea and hypoxia on 1 L of oxygen. First kidney biopsy was canceled as pertinent could not lay down prone or on sideways and then thrombolysis of catheter for same region. Subsequently patient was transferred to ICU. [employer] consult requested. Patient initially needs to be tried on NIPPV and if cannot salvage will need intubation. I requested Dr. Arteaga for temporary dialysis but he said geophysical support specialist can put it. Chest x-ray stat ordered 10/10 patient was intubated in the morning. On IV propofol and fentanyl drip. 09/24: Sputum endotracheal culture reported mixed normal respiratory amparo. MRSA PCR positive. Patient did not had fever 1 time 100.2 Fahrenheit today. On IV Zosyn. 09/25: T-max 100.7 Fahrenheit last evening. On Zosyn and vancomycin 09/26: Sputum culture shows MSSA. DC vancomycin. Started on IV cefazolin IV Zosyn since 09/23. 09/28: Patient has been on IV Zosyn for 5 days and culture shows MSSA therefore discontinued. Continue IV cefazolin. No fever 4 hours. (7) Cardiomyopathy: PLAN: EF of 35% Unclear etiology More definitive cardiac evaluation, including cardiac catheterization on hold pending kidney evaluation Not a candidate for ANIA inhibitors nor angiotensin receptor blockers given acute kidney injury PLAN: Plan VTE prophylaxis: Not indicated as patient will be anticoagulated. The patient's sister and father both can hear. They state that the patient was born with congenital deafness and they tried to see if there is anything that could be remedied by going to different facilities but said there is nothing that could be done. They report that the patient read lips poorly and reads basic simple written commands or questions. Charges/Coding Visit Charges Inpatient E&M: 78445 Subs Hosp L3
--- NOTE | 2022-09-28 09:34 | PN.CARD_ITS ---
Subjective Subjective The patient was seen and evaluated and underwent cardiac catheterization this morning Objective Data Vital Signs: Vital Signs Temp Pulse Resp BP Pulse Ox O2 Del Method O2 Flow Rate 99.2 F H 58 L 14 128/60 H 96 Mechanical Ventilator 30 09/28/22 08:00 09/28/22 08:00 09/28/22 08:00 09/28/22 08:00 09/28/22 08:00 09/28/22 08:00 09/25/22 18:00 FiO2 25 09/28/22 08:00 Oxygen Flow Rate (L/min) 30 Oxygen Delivery Method Mechanical Ventilator Weight: 183 lb 10.321 oz Body Mass Index (BMI) 25.8 Intake & Output: Intake and Output for Last 24 Hours 09/26/22 09/27/22 09/28/22 23:59 23:59 23:59 Intake Total 2325.80 / 2705.60 2507.36 / 2644.66 807.09 / 807.09 Output Total 1475 / 1625 940 / 940 200 / 200 Balance 850.80 / 1080.60 1567.36 / 1704.66 607.09 / 607.09 Lab / Micro Data Result Diagrams: 09/28/22 05:05 09/28/22 05:05 Labs: Laboratory Results - last 24 hr 09/27/22 12:00: POC Glucose 426 H 09/27/22 17:42: POC Glucose 356 H 09/27/22 22:58: POC Glucose 294 H 09/28/22 05:02: POC Glucose 208 H 09/28/22 05:05: WBC 9.0, RBC 2.69 L, Hgb 8.0 L, Hct 25.4 L, MCV 94.4 H, MCH 29.7, MCHC 31.5 L, RDW Std Deviation 44.1 H, RDW Coeff of Jenifer 12.9, Plt Count 270, MPV 11.2, Immature Gran % (Auto) 0.400, Neut % (Auto) 66.8, Lymph % (Auto) 11.6 L, Carter % (Auto) 12.7 H, Eos % (Auto) 7.9 H, Baso % (Auto) 0.6, Absolute Neuts (auto) 6.0, Absolute Lymphs (auto) 1.05, Nucleated RBC % 0 09/28/22 05:05: Sodium 135 L, Potassium 3.5, Chloride 98, Carbon Dioxide 24.0, Anion Gap 13, BUN 42 H, Creatinine 6.38 H, Estim Creat Clear Calc 13.03, Est GFR (MDRD) Af Amer 12 L, Est GFR (MDRD) Non-Af 10 L, BUN/Creatinine Ratio 6.6 L, Glucose 231 H, Calcium 8.5, Total Bilirubin 0.30, AST 24, ALT 13 L, Alkaline Phosphatase 119 H, Total Protein 5.8 L, Albumin 1.4 L, Globulin 4.4 H, Albumin/Globulin Ratio 0.3 L Cardiology Labs/Tests 09/28/22 05:05: WBC 9.0, RBC 2.69 L, Hgb 8.0 L, Hct 25.4 L, MCV 94.4 H, MCH 29.7, MCHC 31.5 L, Plt Count 270, MPV 11.2, Immature Gran % (Auto) 0.400, Neut % (Auto) 66.8, Lymph % (Auto) 11.6 L, Carter % (Auto) 12.7 H, Eos % (Auto) 7.9 H, Baso % (Auto) 0.6, Absolute Neuts (auto) 6.0, Nucleated RBC % 0 09/28/22 05:05: Sodium 135 L, Potassium 3.5, Chloride 98, Carbon Dioxide 24.0, A nion Gap 13, BUN 42 H, Creatinine 6.38 H, Est GFR (MDRD) Af Amer 12 L, Est GFR (MDRD) Non-Af 10 L, BUN/Creatinine Ratio 6.6 L, Glucose 231 H, Calcium 8.5, Total Bilirubin 0.30 Rhythm: EKG: ECHO: Stress Test: Cardiac Cath: PCI: CT Surgery: Holter monitor: EPS: PPM: CXR: Chest CT Scan: Physical Exam Const Constitutional Narrative: Intubated, sedated and mechanically ventilated. No ventilator dyssynchrony. Makes eye contact during spontaneous breathing trial General Appearance: patient mechanically ventilated; Negative for in distress HEENT normocephalic and head/scalp atraumatic Mouth: endotracheal tube in place and OG tube in place Eyes PERRL, EOMs intact bilaterally and conjunctivae normal Neck supple Neck Narrative: Tunneled hemodialysis catheter noted. General: trachea midline Chest inspection of chest normal Resp Auscultation: diminished lung sounds; Negative for rales, rhonchi or wheezes Cardio regular rate, regular rhythm, S1 normal heart sound, S2 normal heart sound, no murmurs, no rub and no gallops GI normal to inspection, nondistended, normoactive bowel sounds no CVA tenderness Extremity General Extremity: edema Skin no rashes or lesions noted Neuro Sensorium / Orientation: sedated on vent Psych Mood & Affect: flat affect Assessment & Plan Assessment/Plan (1) Non-ST elevated myocardial infarction (non-STEMI): PLAN: Patient presents with a non-ST elevation myocardial infarction. With his risk factors of hypertension as well as diabetes mellitus it is likely that he has premature coronary artery disease. His cardiac catheterization demonstrated the following: Calcified left main coronary artery. Mild disease in the left main coronary artery. Left anterior descending artery which is diffusely diseased but no high-grade focal stenosis noted. Left circumflex artery which is nondominant with a proximal 90% stenotic eccentric calcified lesion noted. Dominant right coronary artery which is calcified severely diseased with ostial 60% stenosis, proximal 80 to 90% stenosis mid 70% stenosis and diffuse distal disease involving the posterior descending artery and posterior lateral vessel. The left ventricular systolic function is reduced estimated at 40%. Based on the above angiographic findings it is felt that he is a high risk for PCI at this time. We will continue with aggressive medical therapy. After he is stabilized he may be considered for high risk PCI in a tertiary care facility. At this time we will try and optimize his medical therapy. (2) Hypertensive emergency: PLAN: Aggressive treatment of his blood pressure should be instituted Recommend addition of the beta-gwyn As needed hydralazine Thank you for allowing me to participate in the care of your patient. Please don't hesitate to call if any issues arise.
--- NOTE | 2022-09-28 09:45 | CL.D_ITS ---
Patient Name: SCOTT BUTLER Study Date: 09/28/2022 Performing: Elvis Hampton MD Ht: 70 inches 177.8 cm : 1965 Wt: 183.65 lbs 83.3 kg Age: 57 Gender: male BSA: 2.01 PROCEDURE(S) PERFORMED DC01-(32632)LHC/COR/LV CLINICAL PROFILE AND INDICATIONS Indications: Suspected CAD Heart Failure: NYHA Class: 3, Newly Diagnosed: Yes, Heart Failure Type: Systolic Stress/Imaging Stress/Image Study Performed: No CONCLUSIONS Diffusely diseased two-vessel coronary artery stenosis with left ventricular systolic dysfunction and small caliber vessels and reduced left ventricular ejection fraction in a patient with renal failure on recent onset dialysis. RECOMMENDATIONS We will recommend medical management for now and after patient stabilizes on his dialysis would consider tertiary care institution referral for targeted PCI DESCRIPTION OF PROCEDURE The patient arrived to the procedure lab. The risks and benefits of the procedure as well as a full description of our services here and current unavailability of surgical backup were fully explained to the patient and/or their significant other prior to the catheterization. The Timeout was completed, verifying the correct patient and procedure. The patient's procedural site was prepped and draped in the usual fashion. Local anesthetic was given subcutaneously to right femoral region with Lidocaine 2%. Using a modified Seldinger technique, arterial access was obtained via the right femoral artery, a 5Fr sheath was inserted. Left Coronary Artery selective angiography was performed in multiple views using a 5 Fr. JL4 catheter. Right Coronary Artery selective angiography was then performed in multiple views using a 5 Fr. 3DRC (Josh) catheter. Left Ventriculography was performed in CEDEÑO projection using a 5 Fr. Pigtail catheter.Contrast was injected through the sheath and the Right Iliac and Femoral artery were assessed for possible closure device.The arterial sheath was pulled and manual compression applied until hemostasis is achieved. CORONARY ANGIOGRAPHY DOMINANCE: Right Dominant LEFT HEART ASSESSMENT Left Ventricular Ejection Fraction: by LV Gram 40 % Abnormal LV wall motion. Global Hypokinesis - Moderate Depressed Left Ventricular systolic function LEFT MAIN: Moderate calcification, Mild luminal irregularities LEFT ANTERIOR DESCENDING ARTERY: Mild calcification, This vessel is diffusely diseased but no areas of high-grade stenosis are noted. CIRCUMFLEX ARTERY: The proximal vessel is calcified with an eccentric 90% stenotic lesion noted. The rest of the vessel appears to be diffusely diseased. RIGHT CORONARY ARTERY: This is a small vessel but diffusely diseased. It is also noted to be calcified. The proximal portion is noted to have at least a 60% stenosis followed by a focal 80 to 90% stenotic lesion. In the midsegment there is a 70% stenotic lesion noted. Distally the posterior descending artery and the posterior lateral vessel in particular diffusely diseased. COMPLICATIONS No Complications PROCEDURE MEDICATIONS Versed 1 mg IV Versed 1 mg IV Oxygen: 25 % FiO2 via ventilator. See Resp Record for Settings SUMMARY OF HEMODYNAMIC DATA Time AIR REST ECG 09:07:51 AO 143/63 (92) SA 09:11:47 LV 150/11, 23 09:20:32 LV 146/10, 24 09:21:04 LV 144/14, 33 09:21:31 LV 141/12, 26 09:21:39 LVp 141/11, 25 09:21:42 AOp 124/-22 (21) 09:21:49 09:42:59 Signed By Elvis Hampton MD On 09/28/2022 09:45:22 Elvis Hampton MD
--- NOTE | 2022-09-28 10:27 | CASEMGMT ---
ISABEL CAMARA NOTE: Call received from nurse @ [facility]. She was made aware pt will not be medically ready for discharge by Wed as he is still currently intubated and most likely will need SNF placement. She states will call back to [facility] on Wed for an update. Kena LANDRY RN, CM
[2022-09-28] MEDS: Dorzolamide HCL/Timolol 10 ml Bottle 1 DRP OPHTHALMIC ×2 (10:57→21:19)
--- NOTE | 2022-09-28 11:05 | NURSING ---
Patient was in the lab[employer] at 09:00 am this RN was unable to see vital signs at this time and unable to washing tub operator RASS and CPOT.
[2022-09-28 12:11] LABS: Bedside Glucose 106 mg/dL (74-106)
--- NOTE | 2022-09-28 15:06 | PN.RENAL_ITS ---
Subjective Subjective no new events Objective Data Objective Data Vital Signs: Vital Signs Temp Pulse Resp BP Pulse Ox O2 Del Method O2 Flow Rate 96.8 F L 53 L 15 148/71 H 97 Mechanical Ventilator 30 09/28/22 13:00 09/28/22 13:36 09/28/22 13:36 09/28/22 13:00 09/28/22 13:36 09/28/22 13:00 09/25/22 18:00 FiO2 25 09/28/22 13:36 Oxygen Flow Rate (L/min) 30 Oxygen Delivery Method Mechanical Ventilator Weight: 83.3 kg Body Mass Index (BMI) 25.8 Intake & Output: Intake and Output for Last 24 Hours 09/26/22 09/27/22 09/28/22 23:59 23:59 23:59 Intake Total 2325.80 / 2705.60 2507.36 / 2644.66 1063.79 / 1063.79 Output Total 1475 / 1625 940 / 940 500 / 500 Balance 850.80 / 1080.60 1567.36 / 1704.66 563.79 / 563.79 Lab / Micro Data Result Diagrams: 09/28/22 05:05 09/28/22 05:05 Labs: Laboratory Results - last 24 hr 09/27/22 17:42: POC Glucose 356 H 09/27/22 22:58: POC Glucose 294 H 09/28/22 05:02: POC Glucose 208 H 09/28/22 05:05: WBC 9.0, RBC 2.69 L, Hgb 8.0 L, Hct 25.4 L, MCV 94.4 H, MCH 29.7, MCHC 31.5 L, RDW Std Deviation 44.1 H, RDW Coeff of Jenifer 12.9, Plt Count 270, MPV 11.2, Immature Gran % (Auto) 0.400, Neut % (Auto) 66.8, Lymph % (Auto) 11.6 L, [place] % (Auto) 12.7 H, Eos % (Auto) 7.9 H, Baso % (Auto) 0.6, Absolute Neuts (auto) 6.0, Absolute Lymphs (auto) 1.05, Nucleated RBC % 0 09/28/22 05:05: Sodium 135 L, Potassium 3.5, Chloride 98, Carbon Dioxide 24.0, Anion Gap 13, BUN 42 H, Creatinine 6.38 H, Estim Creat Clear Calc 13.03, Est GFR (MDRD) Af Amer 12 L, Est GFR (MDRD) Non-Af 10 L, BUN/Creatinine Ratio 6.6 L, Glucose 231 H, Calcium 8.5, Total Bilirubin 0.30, AST 24, ALT 13 L, Alkaline Phosphatase 119 H, Total Protein 5.8 L, Albumin 1.4 L, Globulin 4.4 H, Albumin/Globulin Ratio 0.3 L 09/28/22 11:48: POC Glucose 106 Micro: Microbiology 09/23/22 07:34 Sputum, Tracheal Aspirate Gram Stain - Final 09/23/22 07:34 Sputum, Tracheal Aspirate Respiratory Culture - Final Staphylococcus aureus 09/22/22 07:20 Sputum, Induced/Lukens Gram Stain - Final 09/22/22 07:20 Sputum, Induced/Lukens Respiratory Culture - Final Mixed normal respiratory amparo. No Streptococcus pneumoniae, beta-hemolytic Streptococcus or Staphylococcus aureus isolated. 09/17/22 15:45 Urine, Clean Catch Urine Culture - Final Culture exhibits no growth. 09/16/22 07:05 Nasal Secretion SARS-CoV-2 & FLU Antigen (Rapid) - Final Physical Exam Narrative Intubated and sedated S1, S2, RRR Lung sounds clear anteriorly. He is on mechanical ventilator. Abdomen round, positive bowel sounds No significant edema right non-tunneled HD catheter dressing C/D/I Assessment & Plan Assessment/Plan (1) TREVOR (acute kidney injury): (2) Metabolic acidosis: (3) Benign essential hypertension: (4) Acute respiratory failure with hypoxia: (5) Type 1 diabetes: PLAN: Plan Acute kidney injury on chronic kidney disease, unspecified stage. Baseline renal function is unclear although there is notation that serum creatinine was 1.60 mg/dL in 2020.? The last available serum creatinine in [facility] was from 04/22/2014 at 1.3 mg/dL. Suspect the patient has underlying diabetic kidney disease.? He is proteinuric in nephrotic range and has had longstanding, poorly controlled diabetes with retinopathy. Serologies including ANCA, C3, and C4 are negative.? Immunofixation is negative for monoclonal protein. It is possible that we are seeing progression of diabetic kidney disease towards ESRD. Unfortunately, biopsy could not be done because of patient's respiratory status and anxiety. tunneled line in place HD today Metabolic acidosis. Serum bicarbonate level was as low as 13 mmol/L on 09/22/2022.? Acidosis is likely due to renal failure. There has been no diarrhea. Serum bicarbonate level has improved and stabilized with hemodialysis. coronary angiogram today
[2022-09-28] MEDS: Cefazolin 1 GM/50 ML BAG IV (16:02)
[2022-09-28] MEDS: Heparin 10,000 UNITS/10 ML Vial IV (18:28)
[2022-09-28 18:41] LABS: Bedside Glucose 144 mg/dL (74-106)
[2022-09-28] MEDS: Senna/Docusate Sodium 1 Tablet 2 TABLET GT (21:19)
[2022-09-28] MEDS: Latanoprost 0.005% 1 Bottle 1 DRP OPHTHALMIC (21:19)
[2022-09-28] MEDS: Atorvastatin Calcium 40 MG Tablet GT (21:20)
[2022-09-28 21:26] LABS: Bedside Glucose 181 mg/dL (74-106)
[2022-09-28] MEDS: Insulin Glargine-YFGN 100 UNIT/ML Pen 25 UNIT SC (21:37)
[2022-09-29] VITALS (33 sets, daily range): BP systolic 113–188; BP diastolic 55–102; PULSE 46–106; RESP 10–26; TEMP 35.6–38.1; O2SAT 83–100
[2022-09-29] MEDS: CHLORHEXIDINE GLUC 2% CLOTH 1 EACH TOWELETTE TOPICAL (01:12)
[2022-09-29 01:31] LABS: Bedside Glucose 96 mg/dL (74-106)
[2022-09-29 03:40] LABS: Hematocrit 26.1 % (40-54); Hemoglobin 8.3 g/dL (13.0-16.5); Mean Corp Hgb Conc 31.8 g/dL (32-36); Mean Corpuscular Hgb 29.3 pg (27.0-32.0); Mean Corpuscular Volume 92.2 fL (80-94); Mean Platelet Vol. 11.4 fl (6.2-12.0); Platelet Count 263 K/mm3 (150-450); RBC Distribution Width CV 12.7 % (11.6-14.6); RBC Distribution Width SD 42.1 fl (35.1-43.9); Red Blood Count 2.83 M/mm3 (4.6-6.2); White Blood Count 8.4 K/mm3 (4.4-11.0)
[2022-09-29 03:50] LABS: International Normalized Ratio 1.1; Prothrombin Time (Protime)PT. 13.5 SECONDS (11.7-14.9)
[2022-09-29 03:51] LABS: Partial Thromboplast Time 34.9 Seconds (24.1-36.2)
[2022-09-29 03:54] LABS: Anion Gap 9 (5-15); BUN 24 mg/dL (7-18); BUN/Creat Ratio 5.7 RATIO (10-20); Calcium,Total 8.4 mg/dL (8.5-10.1); Chloride 102 mmol/L (98-107); Creatinine, Serum 4.23 mg/dL (0.70-1.30); EST Glomerular Filtration Rate 15 mL/min (>60); Est Glom Filt Rate - Afr Amer 19 mL/min (>60); Estimated Creatinine Clearance 19.65 ml/min; Glucose 96 mg/dL (74-106); Potassium 3.3 mmol/L (3.5-5.1); Sodium Level 137 mmol/L (136-145)
[2022-09-29] MEDS: 0.9% Saline Lock 10 ML Syringe IV (05:30)
--- NOTE | 2022-09-29 05:46 | NURSING ---
0500: RT at bedside to attempt breathing trial but was having apnea. Fentanyl turned off at this time to see if it would help with apnea. 0530: RT attempted to switch to CPAP again but pt still went apneic. Fentanyl restarted @ 25.
[2022-09-29 05:50] LABS: Bedside Glucose 99 mg/dL (74-106)
--- NOTE | 2022-09-29 06:29 | CPS ---
Attempted SBT trial. Pt failed due to apnea.
[2022-09-29] MEDS: TITRATION PARAMETER CHANGE 1 EACH IV (06:55)
--- NOTE | 2022-09-29 07:08 | PCM.PN.INT ---
Assessment & Plan Assessment/Plan (1) Acute respiratory failure with hypoxia: PLAN: Plan RECOMMENDATIONS: 1. Reattempt spontaneous breathing trial 2. Continue empiric antimicrobials to cover for potential aspiration. 3. Potential extubation later today 4. Continue Protonix for GI prophylaxis. 5. Ongoing dialysis support per nephrology recommendations. Defer potassium repletion to nephrology 6. Defer to cardiology on timing for CABG evaluation IMPRESSIONS: 1. Acute hypoxemic respiratory failure Appears to be secondary to hypervolemia in the setting of acute kidney injury. The patient's chest x-ray continues to demonstrate progressive bilateral pulmonary vascular congestion and a right-sided pleural effusion. The patient has been unable to lay flat to facilitate placement of a dialysis catheter. Therefore, he was intubated on September 22, in order to facilitate placement of a temporary HD line and subsequent dialysis support. Patient has been receiving hemodialysis and oxygenation continues to improve. Clinical suspicion for overventilation leading to apnea events this morning. Spontaneous breathing trial will be reattempted with potential extubation later this morning. 2. Acute kidney injury Unclear etiology. Nephrology is following to assist with medical management. The patient is in need of hemodialysis and volume optimization. Patient is planning on having dialysis today following heart catheterization. Management as noted above. 3. NSTEMI The patient's echocardiogram demonstrated a depressed ejection fraction at 35% with stage III diastolic dysfunction and pulmonary hypertension. Cardiology is following to assist with medical management. Discussed with Dr. Hampton. Cardiac catheterization shows significant diffuse two-vessel disease 4. Diabetes mellitus/hypertension/congenital deafness/GERD Complicates care, management, recovery and prognosis. Continue home medications as indicated. TIME: 40 minutes of critical care time, inclusive of procedures, was spent addressing the patient's acute hypoxemic respiratory failure, acute kidney injury, NSTEMI, review of all data and collaboration with care team. Subjective Subjective Patient did okay overnight. Patient did have a heart catheterization yesterday that reportedly will need to be addressed with CABG. Plan was to extubate patient and then move forward with surgical optimization. This morning, patient was attempted on a spontaneous breathing trial, but had periods of apnea. Respiratory rate was lowered to 10 and patient is now back on a spontaneous breathing trial. Objective Data Objective Data Patient did tolerate hemodialysis yesterday with 2 L removed. Vital Signs: Vital Signs Temp Pulse Resp BP Pulse Ox O2 Del Method O2 Flow Rate 35.7 C L 51 L 18 127/74 H 99 Mechanical Ventilator 30 09/29/22 06:00 09/29/22 07:02 09/29/22 07:02 09/29/22 07:00 09/29/22 07:02 09/29/22 07:00 09/25/22 18:00 FiO2 25 09/29/22 07:00 Oxygen Flow Rate (L/min) 30 Oxygen Delivery Method Mechanical Ventilator Weight: 81.6 kg Body Mass Index (BMI) 25.8 Intake & Output: Intake and Output for Last 24 Hours 09/27/22 09/28/22 09/29/22 23:59 23:59 23:59 Intake Total 2507.36 / 2644.66 1481.37 / 1561.37 358.80 / 358.80 Output Total 940 / 940 675 / 1025 500 / 500 Balance 1567.36 / 1704.66 806.37 / 536.37 -141.20 / -141.20 Lab / Micro Data Attestation: I reviewed the patient's lab results. Result Diagrams: 09/29/22 03:35 09/29/22 03:35 Labs: Laboratory Results - last 24 hr 09/28/22 11:48: POC Glucose 106 09/28/22 18:23: POC Glucose 144 H 09/28/22 21:02: POC Glucose 181 H 09/29/22 00:56: POC Glucose 96 09/29/22 03:35: WBC 8.4, RBC 2.83 L, Hgb 8.3 L, Hct 26.1 L, MCV 92.2, MCH 29.3, MCHC 31.8 L, RDW Std Deviation 42.1, RDW Coeff of Jenifer 12.7, Plt Count 263, MPV 11.4 09/29/22 03:35: PT 13.5, INR 1.1, APTT 34.9 09/29/22 03:35: Sodium 137, Potassium 3.3 L, Chloride 102, Carbon Dioxide 26.0, Anion Gap 9, BUN 24 H, Creatinine 4.23 H, Estim Creat Clear Calc 19.65, Est GFR (MDRD) Af Amer 19 L, Est GFR (MDRD) Non-Af 15 L, BUN/Creatinine Ratio 5.7 L, Glucose 96, Calcium 8.4 L 09/29/22 05:29: POC Glucose 99 Micro: Microbiology 09/23/22 07:34 Sputum, Tracheal Aspirate Gram Stain - Final 09/23/22 07:34 Sputum, Tracheal Aspirate Respiratory Culture - Final Staphylococcus aureus 09/22/22 07:20 Sputum, Induced/Lukens Gram Stain - Final 09/22/22 07:20 Sputum, Induced/Lukens Respiratory Culture - Final Mixed normal respiratory amparo. No Streptococcus pneumoniae, beta-hemolytic Streptococcus or Staphylococcus aureus isolated. 09/17/22 15:45 Urine, Clean Catch Urine Culture - Final Culture exhibits no growth. 09/16/22 07:05 Nasal Secretion SARS-CoV-2 & FLU Antigen (Rapid) - Final Physical Exam Const Constitutional Narrative: Intubated, sedated and mechanically ventilated. No ventilator dyssynchrony. Makes eye contact General Appearance: patient mechanically ventilated; Negative for in distress HEENT normocephalic and head/scalp atraumatic Mouth: endotracheal tube in place and OG tube in place Eyes PERRL, EOMs intact bilaterally and conjunctivae normal Neck supple Neck Narrative: Tunneled hemodialysis catheter noted. General: trachea midline Chest inspection of chest normal Resp Auscultation: diminished lung sounds; Negative for rales, rhonchi or wheezes Cardio regular rate, regular rhythm, S1 normal heart sound, S2 normal heart sound, no murmurs, no rub and no gallops GI normal to inspection, nondistended, normoactive bowel sounds no CVA tenderness Extremity General Extremity: edema Skin no rashes or lesions noted Psych Mood & Affect: flat affect Charges/Coding Procedures Hospitalists Procedures: 95840 Critial Care 1st Hr
--- NOTE | 2022-09-29 07:55 | PN.HOSP_ITS ---
Subjective Subjective Follow-up for acute hypoxic respiratory failure due to hypervolemia, TREVOR non- STEMI Patient is on pressor support on vent setting in an effort to extubate. Objective Data Objective Data Vital Signs: Vital Signs Temp Pulse Resp BP Pulse Ox O2 Del Method O2 Flow Rate 96.3 F L 50 L 18 127/74 H 99 Mechanical Ventilator 30 09/29/22 06:00 09/29/22 07:36 09/29/22 07:02 09/29/22 07:00 09/29/22 07:02 09/29/22 07:00 09/25/22 18:00 FiO2 25 09/29/22 07:00 Oxygen Flow Rate (L/min) 30 Oxygen Delivery Method Mechanical Ventilator Weight: 179 lb 14.355 oz Body Mass Index (BMI) 25.8 Intake & Output: Intake and Output for Last 24 Hours 09/27/22 09/28/22 09/29/22 23:59 23:59 23:59 Intake Total 2507.36 / 2644.66 1481.37 / 1561.37 358.80 / 358.80 Output Total 940 / 940 675 / 1025 500 / 500 Balance 1567.36 / 1704.66 806.37 / 536.37 -141.20 / -141.20 Lab / Micro Data Result Diagrams: 09/29/22 03:35 09/29/22 03:35 Labs: Laboratory Results - last 24 hr 09/28/22 11:48: POC Glucose 106 09/28/22 18:23: POC Glucose 144 H 09/28/22 21:02: POC Glucose 181 H 09/29/22 00:56: POC Glucose 96 09/29/22 03:35: WBC 8.4, RBC 2.83 L, Hgb 8.3 L, Hct 26.1 L, MCV 92.2, MCH 29.3, MCHC 31.8 L, RDW Std Deviation 42.1, RDW Coeff of Jenifer 12.7, Plt Count 263, MPV 11.4 09/29/22 03:35: PT 13.5, INR 1.1, APTT 34.9 09/29/22 03:35: Sodium 137, Potassium 3.3 L, Chloride 102, Carbon Dioxide 26.0, Anion Gap 9, BUN 24 H, Creatinine 4.23 H, Estim Creat Clear Calc 19.65, Est GFR (MDRD) Af Amer 19 L, Est GFR (MDRD) Non-Af 15 L, BUN/Creatinine Ratio 5.7 L, Glucose 96, Calcium 8.4 L 09/29/22 05:29: POC Glucose 99 Micro: Microbiology 09/23/22 07:34 Sputum, Tracheal Aspirate Gram Stain - Final 09/23/22 07:34 Sputum, Tracheal Aspirate Respiratory Culture - Final Staphylococcus aureus 09/22/22 07:20 Sputum, Induced/Lukens Gram Stain - Final 09/22/22 07:20 Sputum, Induced/Lukens Respiratory Culture - Final Mixed normal respiratory amparo. No Streptococcus pneumoniae, beta-hemolytic Streptococcus or Staphylococcus aureus isolated. 09/17/22 15:45 Urine, Clean Catch Urine Culture - Final Culture exhibits no growth. 09/16/22 07:05 Nasal Secretion SARS-CoV-2 & FLU Antigen (Rapid) - Final Physical Exam Narrative Physical exam Plan for dialysis today Still intubated. Had tunneled dialysis catheter on Wednesday. General:Intubated, on vent, sedated HEENT: Atraumatic, PERRLA, EOMI, Normocephalic Oral: ET tube. Neck: Supple, No JVD, Negative Carotid Bruits Lungs: Air entry diminished in bilateral lung bases. No crepts on vent support Cardiovascular: Sinus Rhythm, Normal S1, Normal S2, No murmurs Abdomen: Bowel Sounds , Soft, Non Tender, Non-Distended : Lopez catheter, clear urine. No renal angle tenderness. No suprapubic tenderness. Extremities: No edema, Capillary Refill Less than 3 Seconds Skin: No rashes, No breakdown Musculoskeletal: No Tenderness to Palpation of Joints or Extremities Neurological: Cranial nerves II-XII grossly intact, DTR 2+/4. Psych/Mental Status: Likely sedated. Assessment & Plan Assessment/Plan (1) Non-ST elevated myocardial infarction (non-STEMI): PLAN: Troponins were 1211. Patient did have some ST depressions in the inferior leads. Echocardiogram shows an EF of 35% with stage III diastolic dysfunction and moderate to severe global hypokinesis of the left ventricle. Pulmonary artery systolic pressure of 40 mmHg. Plan: * Discontinue heparin drip * cardiology following, recommended baby aspirin, amlodipine, metoprolol and as needed hydralazine * Given his kidney function there is no current plans for cardiac laurie terization until his kidney function is stabilized/hemodialyzed 09/23: Plan will be cardiac cath when he is well compensated in regards to pulmonary edema. 09/27, plan for cardiac cath on Wednesday. 09/29: Cardiac cath on 2018 reported diffusely diseased two-vessel disease, LV systolic dysfunction. LV gram EF 40%. LAD diffusely diseased with no area of high-grade stenosis. Circumflex eccentric 90% distal occlusion, rest diffusely diseased. RCA proximal 60% followed by focal 80 to 90%, mid segment 70% and distally PDA and MYCHAL diffusely diseased. Recommended tertiary care transfer referral for targeted PCI after patient is stabilized on dialysis and extubation. (2) Acute renal failure: PLAN: Nonoliguric through [facility] I was able to see patient had a BMP on February 19, 2021 and his creatinine at that time was 1.66. I do not see any additional BMPs in the interim. Unclear if this is been just a chronic progression since then or this is been an acute worsening Renal ultrasound showed some medical renal disease Fractional excretion of sodium is 3.56% Plan: Losartan on hold. Discussed with the metal pattern maker. Patient had a scheduled renal biopsy and tunneled hemodialysis catheter which was canceled due to respiratory distress. Patient has NON-anion gap metabolic acidosis, bicarb 15, chloride 107. Creatinine 8.92. 09/22:Chest x-ray portable shows bilateral pulmonary edema and right-sided pleural effusion. Patient had temporary dialysis catheter through right IJ. Dialysis orders started. Discussed with the metal pattern maker. 09/23: Plan for Dialysis Today. Discussed with the Precipitation Equipment Tender. Tunneled dialysis catheter posted for Wednesday. 09/24: Plan for dialysis today. Patient is 1775 mL positive fluid. Rest is stays same. 09/25: Plan for tunneled dialysis catheter today 09/26: Dialysis catheter on right upper chest, surgical site does not show hematoma or bleeding. Temporary dialysis catheter removed. (3) Hypertensive emergency: PLAN: Improved considered for endorgan damage with acute kidney injury continue amlodipine Losartan held for acute kidney injury Patient will be also started on metoprolol titrate As needed hydralazine 09/22: BP on lower side due to sedative but not in hypotensive range 09/24: BP is normal. 09/27: Blood pressure high. Labetalol IV as needed also ordered. 09/28: Blood pressure normal. 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 Blood sugars elevated but patient is not currently in DKA Continue with basal insulin to 25 units daily and his prandial insulin is at 38 but I will change it over 30 but also have a sliding scale insulin. Last A1c from September 14 was 7 Patient did have hypoglycemic down to 19 yesterday. Glargine was discontinued. We will need to reintroduce but hold off on the high-dose prandial insulin the patient was receiving. 09/27: Patient glucose is high in 500s. Lantus dose increased to 15 subcutaneous twice daily along with Humalog insulin 15 subcutaneous every 8 hourly. Hold due to vomiting. (5) Congenital deafness: PLAN: Apparently all the information that the stepson told me about the patient not be able to read or read lips is not accurate. Was able to communicate to the patient by talking to him directly and he expressed understanding. I did have to repeat some things but he did grasp understanding. (6) Acute respiratory failure with hypoxia: PLAN: 09/21: Patient had respiratory distress, tachypnea and hypoxia on 1 L of oxygen. First kidney biopsy was canceled as pertinent could not lay down prone or on sideways and then thrombolysis of catheter for same region. Subsequently patient was transferred to ICU. Supervisor Metal Cans consult requested. Patient initially needs to be tried on NIPPV and if cannot salvage will need intubation. I requested Dr. Arteaga for temporary dialysis but he said metal pattern maker can put it. Chest x-ray stat ordered 10/10 patient was intubated in the morning. On IV propofol and fentanyl drip. 09/24: Sputum endotracheal culture reported mixed normal respiratory amparo. MRSA PCR positive. Patient did not had fever 1 time 100.2 Fahrenheit today. On IV Zosyn. 09/25: T-max 100.7 Fahrenheit last evening. On Zosyn and vancomycin 09/26: Sputum culture shows MSSA. DC vancomycin. Started on IV cefazolin IV Zosyn since 09/23. 09/28: Patient has been on IV Zosyn for 5 days and culture shows MSSA therefore discontinued. Continue IV cefazolin. No fever 4 days (7) Cardiomyopathy: PLAN: EF of 35% Unclear etiology More definitive cardiac evaluation, including cardiac catheterization on hold pending kidney evaluation Not a candidate for ANIA inhibitors nor angiotensin receptor blockers given acute kidney injury PLAN: Plan VTE prophylaxis: Not indicated as patient will be anticoagulated. The patient's sister and father both can hear. They state that the patient was born with congenital deafness and they tried to see if there is anything that could be remedied by going to different facilities but said there is nothing that could be done. They report that the patient read lips poorly and reads basic simple written commands or questions. Charges/Coding Visit Charges Inpatient E&M: 65035 Subs Hosp L3
[2022-09-29] MEDS: Dorzolamide HCL/Timolol 10 ml Bottle 1 DRP OPHTHALMIC ×2 (10:50→21:36)
[2022-09-29 13:15] LABS: Bedside Glucose 133 mg/dL (74-106)
[2022-09-29] MEDS: Ondansetron 4 MG/2 ML Vial IV (14:05)
[2022-09-29] MEDS: Cefazolin 1 GM/50 ML BAG IV (15:26)
--- NOTE | 2022-09-29 15:27 | PN.RENAL_ITS ---
Documented by User: ZELDA Watts 09/29/22 15:30 Subjective Subjective resting quietly in bed. Awake, no apparent distress. Objective Data Objective Data Vital Signs: Vital Signs Temp Pulse Resp BP Pulse Ox O2 Del Method O2 Flow Rate 97.3 F L 84 16 166/68 H 100 Nasal Cannula 3 09/29/22 13:00 09/29/22 13:00 09/29/22 13:00 09/29/22 13:00 09/29/22 13:00 09/29/22 13:00 09/29/22 13:00 FiO2 3 09/29/22 11:00 Oxygen Flow Rate (L/min) 3 Oxygen Delivery Method Nasal Cannula Weight: 81.6 kg Body Mass Index (BMI) 25.8 Intake & Output: Intake and Output for Last 24 Hours 09/27/22 09/28/22 09/29/22 23:59 23:59 23:59 Intake Total 2507.36 / 2644.66 1481.37 / 1561.37 491.20 / 491.20 Output Total 940 / 940 675 / 1025 775 / 775 Balance 1567.36 / 1704.66 806.37 / 536.37 -283.80 / -283.80 Lab / Micro Data Result Diagrams: 09/29/22 03:35 09/29/22 03:35 Labs: Laboratory Results - last 24 hr 09/28/22 18:23: POC Glucose 144 H 09/28/22 21:02: POC Glucose 181 H 09/29/22 00:56: POC Glucose 96 09/29/22 03:35: WBC 8.4, RBC 2.83 L, Hgb 8.3 L, Hct 26.1 L, MCV 92.2, MCH 29.3, MCHC 31.8 L, RDW Std Deviation 42.1, RDW Coeff of Jenifer 12.7, Plt Count 263, MPV 11.4 09/29/22 03:35: PT 13.5, INR 1.1, APTT 34.9 09/29/22 03:35: Sodium 137, Potassium 3.3 L, Chloride 102, Carbon Dioxide 26.0, Anion Gap 9, BUN 24 H, Creatinine 4.23 H, Estim Creat Clear Calc 19.65, Est GFR (MDRD) Af Amer 19 L, Est GFR (MDRD) Non-Af 15 L, BUN/Creatinine Ratio 5.7 L, Glucose 96, Calcium 8.4 L 09/29/22 05:29: POC Glucose 99 09/29/22 12:51: POC Glucose 133 H Micro: Microbiology 09/23/22 07:34 Sputum, Tracheal Aspirate Gram Stain - Final 09/23/22 07:34 Sputum, Tracheal Aspirate Respiratory Culture - Final Staphylococcus aureus 09/22/22 07:20 Sputum, Induced/Lukens Gram Stain - Final 09/22/22 07:20 Sputum, Induced/Lukens Respiratory Culture - Final Mixed normal respiratory amparo. No Streptococcus pneumoniae, beta-hemolytic Streptococcus or Staphylococcus aureus isolated. 09/17/22 15:45 Urine, Clean Catch Urine Culture - Final Culture exhibits no growth. 09/16/22 07:05 Nasal Secretion SARS-CoV-2 & FLU Antigen (Rapid) - Final Physical Exam Narrative alert, awake, no apparent distress S1, S2, RRR Lung sounds clear anteriorly Abdomen round, positive bowel sounds No significant edema non-tunneled HD catheter dressing C/D/I Assessment & Plan Assessment/Plan (1) TREVOR (acute kidney injury): (2) Metabolic acidosis: (3) Benign essential hypertension: (4) Acute respiratory failure with hypoxia: (5) Type 1 diabetes: PLAN: Plan Acute kidney injury on chronic kidney disease, unspecified stage. Baseline renal function is unclear although there is notation that serum creatinine was 1.60 mg/dL in 2020.? The last available serum creatinine in [facility] was from 04/22/2014 at 1.3 mg/dL. Suspect the patient has underlying diabetic kidney disease.? He is proteinuric in nephrotic range and has had longstanding, poorly controlled diabetes with retinopathy. Serologies including ANCA, C3, and C4 are negative.? Immunofixation is negative for monoclonal protein. It is possible that we are seeing progression of diabetic kidney disease towards ESRD. Unfortunately, biopsy could not be done because of patient's respiratory status and anxiety. Patient had cardiac catheterization 09/28: Significant diffuse two-vessel disease No acute indication for AVIATION OPERATIONS SPECIALIST today. Plan for next dialysis tomorrow over 3.5 hours attempting fluid removal as pt/bp tolerates. EDW not established yet. Patient is tolerating fluid removal with dialysis. Metabolic acidosis. Serum bicarbonate level was as low as 13 mmol/L on 09/22/2022.? Acidosis is likely due to renal failure. There has been no diarrhea. Serum bicarbonate level has improved and stabilized with hemodialysis. Documented by User: Dr. Aries Truong MD 09/29/22 18:28 Objective Data Lab / Micro Data Result Diagrams: 09/29/22 03:35 09/29/22 03:35 Assessment & Plan Assessment/Plan (1) TREVOR (acute kidney injury): (2) Metabolic acidosis: (3) Benign essential hypertension: (4) Acute respiratory failure with hypoxia: (5) Type 1 diabetes: PLAN: Plan Acute kidney injury on chronic kidney disease, unspecified stage. Baseline renal function is unclear although there is notation that serum creatinine was 1.60 mg/dL in 2020.? The last available serum creatinine in [facility] was from 04/22/2014 at 1.3 mg/dL. Suspect the patient has underlying diabetic kidney disease.? He is proteinuric in nephrotic range and has had longstanding, poorly controlled diabetes with retinopathy. Serologies including ANCA, C3, and C4 are negative.? Immunofixation is negative for monoclonal protein. It is possible that we are seeing progression of diabetic kidney disease towards ESRD. Unfortunately, biopsy could not be done because of patient's respiratory status and anxiety. Patient had cardiac catheterization 09/28: Significant diffuse two-vessel disease No acute indication for AVIATION OPERATIONS SPECIALIST today. Plan for next dialysis tomorrow over 3.5 hours attempting fluid removal as pt/bp tolerates. EDW not established yet. Patient is tolerating fluid removal with dialysis. Metabolic acidosis. Serum bicarbonate level was as low as 13 mmol/L on 09/22/2022.? Acidosis is likely due to renal failure. There has been no diarrhea. Serum bicarbonate level has improved and stabilized with hemodialysis. Attestation agree with above HD as per schedule Coronary angiogram findings reviewed
[2022-09-29 18:26] LABS: Bedside Glucose 186 mg/dL (74-106)
[2022-09-29 18:35] LABS: Allen Test Positive; Base Excess 1 mmol/L (-2 to +2); Bicarbonate 25.1 mmol/L (22-26); Blood Gas Specimen Type ART; FI02 25; Mode PS; O2 Delivery Device Adult Vent; PEEP 5; PO2 82 mmHG (75-100); PS 5; SITE L Radial; SO2 96 % (95-99); Total Carbon Dioxide 26 mmol/L; pCO2 39.2 mmHg (35-45); pH 7.41 (7.35-7.45)
[2022-09-29] MEDS: Latanoprost 0.005% 1 Bottle 1 DRP OPHTHALMIC (21:36)
[2022-09-29] MEDS: Albuterol 2.5 MG/3 ML VIAL.NEB. INHALATION (23:10)
[2022-09-30] VITALS (32 sets, daily range): BP systolic 132–182; BP diastolic 58–114; PULSE 73–102; RESP 14–30; TEMP 37.1–37.8; O2SAT 88–100
[2022-09-30] MEDS: Labetalol (Prefilled) 20 MG/4 ML 10 MG IV (00:09)
[2022-09-30] MEDS: 0.9% Saline Lock 10 ML Syringe IV ×3 (00:09→06:30)
[2022-09-30] MEDS: Insulin Lispro 100 UNIT/ML INSULN.PEN SC ×3 (00:13→17:21)
[2022-09-30 00:35] LABS: Bedside Glucose 184 mg/dL (74-106)
--- NOTE | 2022-09-30 00:46 | RAD_ITS ---
STUDY: X-RAY CHEST REASON FOR EXAM: Male, 57 years old. hypoxia -- portable TECHNIQUE: Single AP portable view of the chest. COMPARISON: None. FINDINGS: Hemodialysis catheter on the left side. The lungs are underexpanded. Patchy groundglass opacities in the perihilar regions and lung bases consistent with pulmonary edema. Small bilateral pleural effusions. Normal size heart. Normal mediastinum and aric. Normal visualized pulmonary arteries. Normal visualized aortic arch and descending thoracic aorta. Normal visualized thoracic spine. Normal visualized ribs, clavicles, and shoulders. There is no demonstrated abnormality of the visualized soft tissue structures of the upper abdomen. RAD/Chest 1 View (Portable) IMPRESSION: Pulmonary edema. Small bilateral pleural effusions. Electronically Signed: Mary Watson MD at 1:19 [facility] ,
[2022-09-30] MEDS: Furosemide 100 MG/10 ML Vial 80 MG IV (00:52)
[2022-09-30 02:21] LABS: Allen Test Positive; Base Excess -6 mmol/L (-2 to +2); Bicarbonate 19.1 mmol/L (22-26); Blood Gas Specimen Type ART; FI02 60; O2 Delivery Device BiPAP; PO2 76 mmHG (75-100); RR 14; SITE L Radial; SO2 95 % (95-99); Total Carbon Dioxide 20 mmol/L; pCO2 31.3 mmHg (35-45); pH 7.39 (7.35-7.45)
[2022-09-30] MEDS: hydrALAZINE 20 MG/ML Vial 10 MG IV (03:04)
[2022-09-30] MEDS: CHLORHEXIDINE GLUC 2% CLOTH 1 EACH TOWELETTE TOPICAL (03:05)
[2022-09-30 03:44] LABS: Albumin, Serum 1.7 g/dL (3.2-5.0); BUN 33 mg/dL (7-18); BUN/Creat Ratio 5.8 RATIO (10-20); Calcium,Total 8.3 mg/dL (8.5-10.1); Chloride 103 mmol/L (98-107); Creatinine, Serum 5.67 mg/dL (0.70-1.30); EST Glomerular Filtration Rate 11 mL/min (>60); Est Glom Filt Rate - Afr Amer 13 mL/min (>60); Estimated Creatinine Clearance 14.66 ml/min; Glucose 245 mg/dL (74-106); Phosphorus 5.3 mg/dL (2.5-4.9); Potassium 3.7 mmol/L (3.5-5.1); Sodium Level 138 mmol/L (136-145)
[2022-09-30] MEDS: Insulin Lispro 100 UNIT/ML INSULN.PEN 15 UNIT SC (05:28)
[2022-09-30 05:50] LABS: Bedside Glucose 238 mg/dL (74-106)
[2022-09-30] MEDS: HYDROmorphone 0.5 MG/0.5 ML SYRINGE IV (06:30)
--- NOTE | 2022-09-30 07:20 | PCM.PN.CARD ---
Subjective Subjective Patient seen and evaluated. Patient has been extubated. Objective Data Vital Signs: Vital Signs Temp Pulse Resp BP Pulse Ox O2 Del Method O2 Flow Rate 98.7 F 93 21 H 175/94 H 97 Bi-pap 15 09/30/22 06:00 09/30/22 07:00 09/30/22 07:00 09/30/22 07:00 09/30/22 07:00 09/30/22 07:00 09/30/22 00:00 FiO2 35 09/30/22 07:00 Oxygen Flow Rate (L/min) 15 Oxygen Delivery Method Bi-pap Weight: 176 lb 12.972 oz Body Mass Index (BMI) 25.8 Intake & Output: Intake and Output for Last 24 Hours 09/28/22 09/29/22 09/30/22 23:59 23:59 23:59 Intake Total 1481.37 / 1561.37 651.20 / 651.20 Output Total 675 / 1025 1325 / 1325 400 / 400 Balance 806.37 / 536.37 -673.80 / -673.80 -400 / -400 Lab / Micro Data Result Diagrams: 09/29/22 03:35 09/30/22 03:15 Labs: Laboratory Results - last 24 hr 09/29/22 12:51: POC Glucose 133 H 09/29/22 18:05: POC Glucose 186 H 09/30/22 00:08: POC Glucose 184 H 09/30/22 03:15: Sodium 138, Potassium 3.7, Chloride 103, Carbon Dioxide 21.0, BUN 33 H, Creatinine 5.67 H, Estim Creat Clear Calc 14.66, Est GFR (MDRD) Af Amer 13 L, Est GFR (MDRD) Non-Af 11 L, BUN/Creatinine Ratio 5.8 L, Glucose 245 H, Calcium 8.3 L, Phosphorus 5.3 H, Albumin 1.7 L 09/30/22 05:28: POC Glucose 238 H ABG Data ABG results: ABG 09/29/22 09/30/22 08:15 02:17 Specimen Type ART ART Sample Site L Radial L Radial pH 7.41 7.39 Bicarbonate Actual 25.1 19.1 L Total CO2 26 20 Base Excess 1 -6 L O2 Saturation 96 95 O2 % 25 60 ABG pCO2 39.2 31.3 L ABG pO2 82 76 Kev Test Positive Positive Respiration Rate 14 O2 Delivery Device Adult Vent BiPAP Vent Mode PS POC PEEP 5 POC Pressure Suppt 5 Clinical Comments BiPAP 14/8 Cardiology Labs/Tests 09/29/22 08:15: pH 7.41, Bicarbonate Actual 25.1, Base Excess 1, O2 Saturation 96, ABG pCO2 39.2, ABG pO2 82, Kev Test Positive 09/30/22 02:17: pH 7.39, Bicarbonate Actual 19.1 L, Base Excess -6 L, O2 Saturation 95, ABG pCO2 31.3 L, ABG pO2 76, Kev Test Positive 09/30/22 03:15: Sodium 138, Potassium 3.7, Chloride 103, Carbon Dioxide 21.0, BUN 33 H, Creatinine 5.67 H, Est GFR (MDRD) Af Amer 13 L, Est GFR (MDRD) Non-Af 11 L, BUN/Creatinine Ratio 5.8 L, Glucose 245 H, Calcium 8.3 L, Phosphorus 5.3 H Rhythm: EKG: ECHO: Stress Test: Cardiac Cath: PCI: CT Surgery: Holter monitor: EPS: PPM: CXR: Chest CT Scan: Radiography Diagnostic Testing: Radiology Impression Chest X-Ray 09/30/22 00:46 IMPRESSION: Pulmonary edema. Small bilateral pleural effusions. Electronically Signed: Mary Watson MD at 1:19 EST Reading Location ID and State: [facility] / [place] Tel , Service support , Physical Exam Const General Appearance: Negative for in distress HEENT normocephalic and head/scalp atraumatic Mouth: endotracheal tube in place and OG tube in place Eyes PERRL, EOMs intact bilaterally and conjunctivae normal Neck supple Neck Narrative: Tunneled hemodialysis catheter noted. General: trachea midline Chest inspection of chest normal Resp Auscultation: diminished lung sounds; Negative for rales, rhonchi or wheezes Cardio regular rate, regular rhythm, S1 normal heart sound, S2 normal heart sound, no murmurs, no rub and no gallops GI normal to inspection, nondistended, normoactive bowel sounds no CVA tenderness Extremity General Extremity: edema Skin no rashes or lesions noted Psych Mood & Affect: flat affect Assessment & Plan Assessment/Plan (1) Non-ST elevated myocardial infarction (non-STEMI): PLAN: Patient presents with a non-ST elevation myocardial infarction. With his risk factors of hypertension as well as diabetes mellitus it is likely that he has premature coronary artery disease. His cardiac catheterization demonstrated the following: Calcified left main coronary artery. Mild disease in the left main coronary artery. Left anterior descending artery which is diffusely diseased but no high-grade focal stenosis noted. Left circumflex artery which is nondominant with a proximal 90% stenotic eccentric calcified lesion noted. Dominant right coronary artery which is calcified severely diseased with ostial 60% stenosis, proximal 80 to 90% stenosis mid 70% stenosis and diffuse distal disease involving the posterior descending artery and posterior lateral vessel. The left ventricular systolic function is reduced estimated at 40%. Based on the above angiographic findings it is felt that he is a high risk for PCI at this time. We will continue with aggressive medical therapy. After he is stabilized he may be considered for high risk PCI in a tertiary care facility. At this time we will try and optimize his medical therapy. Will restart his beta-gwyn Apparently there are no beds in the tertiary care facility so we will continue to maximize medical therapy and then consider him for interval transfer. (2) Hypertensive emergency: PLAN: Aggressive treatment of his blood pressure should be instituted Recommend addition of the beta-gwyn As needed hydralazine Will handover care to covering radiology teacher Thank you for allowing me to participate in the care of your patient. Please don't hesitate to call if any issues arise.
--- NOTE | 2022-09-30 07:38 | PN.CC_ITS ---
Assessment & Plan Assessment/Plan (1) Acute respiratory failure with hypoxia: PLAN: Plan RECOMMENDATIONS: 1. Dialysis with volume removal today 2. Continue empiric antimicrobials to cover for potential aspiration. 3. BiPAP breaks as tolerated 4. Continue Protonix for GI prophylaxis. 5. Ongoing dialysis support per nephrology recommendations. Defer potassium repletion to nephrology 6. Transfer to tertiary center when available. Medical optimization per cardiology IMPRESSIONS: 1. Acute hypoxemic respiratory failure Appears to be secondary to hypervolemia in the setting of acute kidney injury. The patient's chest x-ray continues to demonstrate progressive bilateral pulmonary vascular congestion and a right-sided pleural effusion. The patient has been unable to lay flat to facilitate placement of a dialysis catheter. Therefore, he was intubated on September 22, in order to facilitate placement of a temporary HD line and subsequent dialysis support. Patient has been receiving hemodialysis and oxygenation continues to improve. Patient able to be extubated yesterday. Unfortunately, patient with significant volume findings on chest x-ray requiring BiPAP rescue. Patient would benefit from volume removal 2. Acute kidney injury Unclear etiology. Nephrology is following to assist with medical management. The patient is in need of hemodialysis and volume optimization. Management as noted above. 3. NSTEMI The patient's echocardiogram demonstrated a depressed ejection fraction at 35% with stage III diastolic dysfunction and pulmonary hypertension. Cardiology is following to assist with medical management. Cardiac catheterization shows significant diffuse two-vessel disease, but unfortunately transfer to a tertiary center has been held secondary to bed availability. 4. Diabetes mellitus/hypertension/congenital deafness/GERD Complicates care, management, recovery and prognosis. Continue home medications as indicated. 5. Hypertensive emergency Emergency indicated by the onset of respiratory failure. Patient with significantly elevated blood pressures. Likely secondary to fluid. Patient should have dialysis today with volume removal. Patient was placed on a beta-b locker by cardiology and attempt at medical optimization. TIME: 32 minutes of critical care time, inclusive of procedures, was spent addressing the patient's acute hypoxemic respiratory failure, acute kidney injury, NSTEMI, review of all data and collaboration with care team. Subjective Subjective Patient did okay immediately after extubation and was on minimal nasal cannula oxygen. However, overnight patient became hypertensive and hypoxic requiring BiPAP rescue. FiO2 requirements have significantly improved this morning, but he remains BiPAP dependent. Patient is significantly hypertensive Patient reportedly is not able to be transferred for CABG evaluation secondary t o bed availability Objective Data Objective Data Vital Signs: Vital Signs Temp Pulse Resp BP Pulse Ox O2 Del Method O2 Flow Rate 37.1 C 93 21 H 175/94 H 97 Bi-pap 15 09/30/22 06:00 09/30/22 07:00 09/30/22 07:00 09/30/22 07:00 09/30/22 07:00 09/30/22 07:00 09/30/22 00:00 FiO2 35 09/30/22 07:00 Oxygen Flow Rate (L/min) 15 Oxygen Delivery Method Bi-pap Weight: 80.2 kg Body Mass Index (BMI) 25.8 Intake & Output: Intake and Output for Last 24 Hours 09/28/22 09/29/22 09/30/22 23:59 23:59 23:59 Intake Total 1481.37 / 1561.37 651.20 / 651.20 Output Total 675 / 1025 1325 / 1325 400 / 400 Balance 806.37 / 536.37 -673.80 / -673.80 -400 / -400 Lab / Micro Data Attestation: I reviewed the patient's lab results. Result Diagrams: 09/29/22 03:35 09/30/22 03:15 Labs: Laboratory Results - last 24 hr 09/29/22 12:51: POC Glucose 133 H 09/29/22 18:05: POC Glucose 186 H 09/30/22 00:08: POC Glucose 184 H 09/30/22 03:15: Sodium 138, Potassium 3.7, Chloride 103, Carbon Dioxide 21.0, BUN 33 H, Creatinine 5.67 H, Estim Creat Clear Calc 14.66, Est GFR (MDRD) Af Amer 13 L, Est GFR (MDRD) Non-Af 11 L, BUN/Creatinine Ratio 5.8 L, Glucose 245 H , Calcium 8.3 L, Phosphorus 5.3 H, Albumin 1.7 L 09/30/22 05:28: POC Glucose 238 H Micro: Microbiology 09/23/22 07:34 Sputum, Tracheal Aspirate Gram Stain - Final 09/23/22 07:34 Sputum, Tracheal Aspirate Respiratory Culture - Final Staphylococcus aureus 09/22/22 07:20 Sputum, Induced/Lukens Gram Stain - Final 09/22/22 07:20 Sputum, Induced/Lukens Respiratory Culture - Final Mixed normal respiratory amparo. No Streptococcus pneumoniae, beta-hemolytic Streptococcus or Staphylococcus aureus isolated. 09/17/22 15:45 Urine, Clean Catch Urine Culture - Final Culture exhibits no growth. 09/16/22 07:05 Nasal Secretion SARS-CoV-2 & FLU Antigen (Rapid) - Final ABG Data ABG results: ABG 09/29/22 09/30/22 08:15 02:17 Specimen Type ART ART Sample Site L Radial L Radial pH 7.41 7.39 Bicarbonate Actual 25.1 19.1 L Total CO2 26 20 Base Excess 1 -6 L O2 Saturation 96 95 O2 % 25 60 ABG pCO2 39.2 31.3 L ABG pO2 82 76 Kev Test Positive Positive Respiration Rate 14 O2 Delivery Device Adult Vent BiPAP Vent Mode PS POC PEEP 5 POC Pressure Suppt 5 Clinical Comments BiPAP 24/05 Attestation: I personally reviewed and interpreted this ABG as follows: (Compensated metabolic acidosis on BiPAP therapy) Radiography Diagnostic Testing: Radiology Impression Chest X-Ray 09/30/22 00:46 IMPRESSION: Pulmonary edema. Small bilateral pleural effusions. Electronically Signed: Mary Watson MD at 1:19 EST Reading Location ID and State: [facility] / [place] Tel , Service support , Physical Exam Const alert Constitutional Narrative: On BiPAP during my evaluation. Good synchrony. Makes eye contact General Appearance: Negative for in distress HEENT normocephalic and head/scalp atraumatic General Ear: hearing grossly impaired Eyes PERRL, EOMs intact bilaterally and conjunctivae normal Neck supple Neck Narrative: Tunneled hemodialysis catheter noted. General: trachea midline Chest inspection of chest normal Resp Auscultation: rales and diminished lung sounds; Negative for rhonchi or wheezes Cardio regular rate, regular rhythm, S1 normal heart sound, S2 normal heart sound, no murmurs, no rub and no gallops GI normal to inspection, nondistended, normoactive bowel sounds no CVA tenderness Extremity General Extremity: edema Skin no rashes or lesions noted Psych Mood & Affect: flat affect Charges/Coding Procedures Hospitalists Procedures: 82688 Critial Care 1st Hr
--- NOTE | 2022-09-30 08:01 | PN.HOSP_ITS ---
Subjective Subjective Follow-up for acute hypoxic respiratory failure secondary to pulmonary edema. Patient was hypotensive and hypoxic last night. Patient required BiPAP 60% FiO2 last night titrated down to 35%. Temperature 100.3 ?F. Objective Data Objective Data Vital Signs: Vital Signs Temp Pulse Resp BP Pulse Ox O2 Del Method O2 Flow Rate 98.7 F 93 21 H 175/94 H 97 Bi-pap 15 09/30/22 06:00 09/30/22 07:00 09/30/22 07:00 09/30/22 07:00 09/30/22 07:00 09/30/22 07:00 09/30/22 00:00 FiO2 35 09/30/22 07:00 Oxygen Flow Rate (L/min) 15 Oxygen Delivery Method Bi-pap Weight: 176 lb 12.972 oz Body Mass Index (BMI) 25.8 Intake & Output: Intake and Output for Last 24 Hours 09/28/22 09/29/22 09/30/22 23:59 23:59 23:59 Intake Total 1481.37 / 1561.37 651.20 / 651.20 Output Total 675 / 1025 1325 / 1325 400 / 400 Balance 806.37 / 536.37 -673.80 / -673.80 -400 / -400 Lab / Micro Data Result Diagrams: 09/29/22 03:35 09/30/22 03:15 Labs: Laboratory Results - last 24 hr 09/29/22 12:51: POC Glucose 133 H 09/29/22 18:05: POC Glucose 186 H 09/30/22 00:08: POC Glucose 184 H 09/30/22 03:15: Sodium 138, Potassium 3.7, Chloride 103, Carbon Dioxide 21.0, BUN 33 H, Creatinine 5.67 H, Estim Creat Clear Calc 14.66, Est GFR (MDRD) Af Amer 13 L, Est GFR (MDRD) Non-Af 11 L, BUN/Creatinine Ratio 5.8 L, Glucose 245 H , Calcium 8.3 L, Phosphorus 5.3 H, Albumin 1.7 L 09/30/22 05:28: POC Glucose 238 H Micro: Microbiology 09/23/22 07:34 Sputum, Tracheal Aspirate Gram Stain - Final 09/23/22 07:34 Sputum, Tracheal Aspirate Respiratory Culture - Final Staphylococcus aureus 09/22/22 07:20 Sputum, Induced/Lukens Gram Stain - Final 09/22/22 07:20 Sputum, Induced/Lukens Respiratory Culture - Final Mixed normal respiratory amparo. No Streptococcus pneumoniae, beta-hemolytic Streptococcus or Staphylococcus aureus isolated. 09/17/22 15:45 Urine, Clean Catch Urine Culture - Final Culture exhibits no growth. 09/16/22 07:05 Nasal Secretion SARS-CoV-2 & FLU Antigen (Rapid) - Final ABG Data ABG results: ABG 09/29/22 09/30/22 08:15 02:17 Specimen Type ART ART Sample Site L Radial L Radial pH 7.41 7.39 Bicarbonate Actual 25.1 19.1 L Total CO2 26 20 Base Excess 1 -6 L O2 Saturation 96 95 O2 % 25 60 ABG pCO2 39.2 31.3 L ABG pO2 82 76 Kev Test Positive Positive Respiration Rate 14 O2 Delivery Device Adult Vent BiPAP Vent Mode PS POC PEEP 5 POC Pressure Suppt 5 Clinical Comments BiPAP 14/8 Radiography Diagnostic Testing: Radiology Impression Chest X-Ray 09/30/22 00:46 IMPRESSION: Pulmonary edema. Small bilateral pleural effusions. Electronically Signed: Mary Watson MD at 1:19 EST , Physical Exam Narrative Physical exam Was extubated on 09/29/2022. On BiPAP. Had bowel movement Had tunneled dialysis catheter on 09/25/2022. General: Awake. Short of breath. Orientation unobtainable as patient is deaf and does not read lips/understand sign language. HEENT: Atraumatic, PERRLA, EOMI, Normocephalic Oral: BiPAP mask. Neck: Supple, No JVD, Negative Carotid Bruits Lungs: Air entry diminished in bilateral lung bases. No crepts on vent support Cardiovascular: Sinus Rhythm, PVC, normal S1, Normal S2, No murmurs Abdomen: Bowel Sounds Giersch, Soft, Non Tender, Non-Distended : Little urine output Lopez catheter,. No renal angle tenderness. No suprapubic tenderness. Extremities: Bilateral edema, Capillary Refill Less than 3 Seconds Skin: No rashes, No breakdown Musculoskeletal: No Tenderness to Palpation of Joints or Extremities Neurological: Cranial nerves II-XII grossly intact, DTR 2+/4. Psych/Mental Status: Assessment & Plan Assessment/Plan (1) Non-ST elevated myocardial infarction (non-STEMI): PLAN: Troponins were 1211. Patient did have some ST depressions in the inferior leads. Echocardiogram on 09/16 shows an EF of 35% with stage III diastolic dysfunction and moderate to severe global hypokinesis of the left ventricle. Pulmonary artery systolic pressure of 40 mmHg. Plan: * Discontinue heparin drip * cardiology following, recommended baby aspirin, amlodipine, metoprolol and as needed hydralazine * Given his kidney function there is no current plans for cardiac catheterizat ion until his kidney function is stabilized/hemodialyzed 09/23: Plan will be cardiac cath when he is well compensated in regards to pulmonary edema. 09/27, plan for cardiac cath on Wednesday. 09/29: Cardiac cath on 2018 reported diffusely diseased two-vessel disease, LV systolic dysfunction. LV gram EF 40%. LAD diffusely diseased with no area of high-grade stenosis. Circumflex eccentric 90% distal occlusion, rest diffusely diseased. RCA proximal 60% followed by focal 80 to 90%, mid segment 70% and distally PDA and MYCHAL diffusely diseased. Recommended tertiary care transfer referral for targeted PCI after patient is stabilized on dialysis and extubation. 09/30:I tried to transfer the [facility] for evaluation of severe diffuse double vessel coronary artery disease for CABG.? Earlier Dr. Hampton has talked to Dr. Linn regarding transfer and he said okay.? physician practice coordinator s [facility] is not accepting any transfer from hospital from order of higher authorities.? This was further discussed with boiler installer and we agreed on continuation of medical treatment and outpatient follow-up with cardiac surgeon. Repeat chest x-ray shows pulmonary edema with small bilateral pleural effusion. (2) Acute renal failure: PLAN: BMP on February 19, 2021 and his creatinine at that time was 1.66. Unclear if this is been just a chronic progression since then or this is been an acute worsening Renal ultrasound showed some medical renal disease Fractional excretion of sodium is 3.56% Plan: Losartan on hold. Discussed with the salesperson neckties. Patient had a sc heduled renal biopsy and tunneled hemodialysis catheter which was canceled due to respiratory distress. Patient has NON-anion gap metabolic acidosis, bicarb 15, chloride 107. Creatinine 8.92. 09/22:Chest x-ray portable shows bilateral pulmonary edema and right-sided pleural effusion. Patient had temporary dialysis catheter through right IJ. Dialysis orders started. Discussed with the salesperson neckties. 09/23: Plan for Dialysis Today. Discussed with the Customer Engineer. Tunneled dialysis catheter posted for Wednesday. 09/24: Plan for dialysis today. Patient is 1775 mL positive fluid. Rest is st ays same. 09/25: Plan for tunneled dialysis catheter today 09/26: Dialysis catheter on right upper chest, surgical site does not show hematoma or bleeding. Temporary dialysis catheter removed. (3) Hypertensive emergency: PLAN: Improved considered for endorgan damage with acute kidney injury continue amlodipine Losartan held for acute kidney injury Patient will be also started on metoprolol titrate As needed hydralazine 09/22: BP on lower side due to sedative but not in hypotensive range 09/24: BP is normal. 09/27: Blood pressure high. Labetalol IV as needed also ordered. 09/28: Blood pressure normal. 09/30: Blood pressure high. 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 Blood sugars elevated but patient is not currently in DKA Continue with basal insulin to 25 units daily and his prandial insulin is at 38 but I will change it over 30 but also have a sliding scale insulin. Last A1c from September 14 was 7 Patient did have hypoglycemic down to 19 yesterday. Glargine was discontinued. We will need to reintroduce but hold off on the high-dose prandial insulin the patient was receiving. 09/27: Patient glucose is high in 500s. Lantus dose increased to 15 subcutaneous twice daily along with Humalog insulin 15 subcutaneous every 8 hourly. Hold due to vomiting. (5) Congenital deafness: PLAN: Apparently all the information that the stepson told me about the patient not be able to read or read lips is not accurate. Was able to communicate to the patient by talking to him directly and he expressed understanding. I did have to repeat some things but he did grasp understanding. (6) Acute respiratory failure with hypoxia: PLAN: 09/21: Patient had respiratory distress, tachypnea and hypoxia on 1 L of oxygen. First kidney biopsy was canceled as pertinent could not lay down prone or on sideways and then thrombolysis of catheter for same region. Subsequently patient was transferred to ICU. Special Education Teacher consult requested. Patient initially needs to be tried on NIPPV and if cannot salvage will need intubation. I requested Dr. Arteaga for temporary dialysis but he said salesperson neckties can put it. Chest x-ray stat ordered 10/10 patient was intubated in the morning. On IV propofol and fentanyl drip. 09/24: Sputum endotracheal culture reported mixed normal respiratory amparo. MRSA PCR positive. Patient did not had fever 1 time 100.2 Fahrenheit today. On IV Zosyn. 09/25: T-max 100.7 Fahrenheit last evening. On Zosyn and vancomycin 09/26: Sputum culture shows MSSA. DC vancomycin. Started on IV cefazolin IV Zosyn since 09/23. 09/28: Patient has been on IV Zosyn for 5 days and culture shows MSSA therefore discontinued. Continue IV cefazolin. No fever 4 days 09/30: Patient on BiPAP. Acute hypoxic respiratory failure due to pulmonary edema. (7) Cardiomyopathy: PLAN: EF of 35% Unclear etiology More definitive cardiac evaluation, including cardiac catheterization on hold pending kidney evaluation Not a candidate for ANIA inhibitors nor angiotensin receptor blockers given acute kidney injury PLAN: Plan VTE prophylaxis: Not indicated as patient will be anticoagulated. The patient's sister and father both can hear. They state that the patient was born with congenital deafness and they tried to see if there is anything that could be remedied by going to different facilities but said there is nothing that could be done. They report that the patient read lips poorly and reads basic simple written commands or questions. Charges/Coding Visit Charges Inpatient E&M: 88785 Subs Hosp L3
[2022-09-30] MEDS: Acetaminophen 650 MG Suppository RC ×2 (12:23→21:41)
[2022-09-30] MEDS: Dorzolamide HCL/Timolol 10 ml Bottle 1 DRP OPHTHALMIC ×2 (12:23→21:36)
[2022-09-30 12:51] LABS: Bedside Glucose 114 mg/dL (74-106)
[2022-09-30] MEDS: Aspirin 300 MG Suppository RC (13:06)
--- NOTE | 2022-09-30 13:13 | PCM.PN.REN ---
Documented by User: ZELDA Watts 09/30/22 13:19 Subjective Subjective Seen and examined dialysis. Tolerating treatment well. On BiPAP Objective Data Objective Data Vital Signs: Vital Signs Temp Pulse Resp BP Pulse Ox O2 Del Method O2 Flow Rate 99.2 F H 90 26 H 160/88 H 100 Bi-pap 15 09/30/22 12:00 09/30/22 12:00 09/30/22 12:00 09/30/22 12:00 09/30/22 12:00 09/30/22 12:00 09/30/22 00:00 FiO2 35 09/30/22 12:00 Oxygen Flow Rate (L/min) 15 Oxygen Delivery Method Bi-pap Weight: 80.2 kg Body Mass Index (BMI) 25.8 Intake & Output: Intake and Output for Last 24 Hours 09/28/22 09/29/22 09/30/22 23:59 23:59 23:59 Intake Total 1481.37 / 1561.37 651.20 / 651.20 Output Total 675 / 1025 1325 / 1325 950 / 950 Balance 806.37 / 536.37 -673.80 / -673.80 -950 / -950 Lab / Micro Data Result Diagrams: 09/29/22 03:35 09/30/22 03:15 Labs: Laboratory Results - last 24 hr 09/29/22 12:51: POC Glucose 133 H 09/29/22 18:05: POC Glucose 186 H 09/30/22 00:08: POC Glucose 184 H 09/30/22 03:15: Sodium 138, Potassium 3.7, Chloride 103, Carbon Dioxide 21.0, BUN 33 H, Creatinine 5.67 H, Estim Creat Clear Calc 14.66, Est GFR (MDRD) Af Amer 13 L, Est GFR (MDRD) Non-Af 11 L, BUN/Creatinine Ratio 5.8 L, Glucose 245 H, Calcium 8.3 L, Phosphorus 5.3 H, Albumin 1.7 L 09/30/22 05:28: POC Glucose 238 H 09/30/22 12:26: POC Glucose 114 H Micro: Microbiology 09/23/22 07:34 Sputum, Tracheal Aspirate Gram Stain - Final 09/23/22 07:34 Sputum, Tracheal Aspirate Respiratory Culture - Final Staphylococcus aureus 09/22/22 07:20 Sputum, Induced/Lukens Gram Stain - Final 09/22/22 07:20 Sputum, Induced/Lukens Respiratory Culture - Final Mixed normal respiratory amparo. No Streptococcus pneumoniae, beta-hemolytic Streptococcus or Staphylococcus aureus isolated. 09/17/22 15:45 Urine, Clean Catch Urine Culture - Final Culture exhibits no growth. 09/16/22 07:05 Nasal Secretion SARS-CoV-2 & FLU Antigen (Rapid) - Final ABG Data ABG results: ABG 09/29/22 09/30/22 08:15 02:17 Specimen Type ART ART Sample Site L Radial L Radial pH 7.41 7.39 Bicarbonate Actual 25.1 19.1 L Total CO2 26 20 Base Excess 1 -6 L O2 Saturation 96 95 O2 % 25 60 ABG pCO2 39.2 31.3 L ABG pO2 82 76 Kev Test Positive Positive Respiration Rate 14 O2 Delivery Device Adult Vent BiPAP Vent Mode PS POC PEEP 5 POC Pressure Suppt 5 Clinical Comments BiPAP 14/8 Radiography Diagnostic Testing: Radiology Impression Chest X-Ray 09/30/22 00:46 IMPRESSION: Pulmonary edema. Small bilateral pleural effusions. Electronically Signed: Mary Watson MD at 1:19 EST , Physical Exam Narrative alert, awake, no apparent distress S1, S2, RRR Lung sounds with scattered rhonchi. On BiPAP. Abdomen round, positive bowel sounds No significant pitting edema tunneled HD catheter dressing C/D/I Assessment & Plan Assessment/Plan (1) TREVOR (acute kidney injury): (2) Metabolic acidosis: (3) Benign essential hypertension: (4) Acute respiratory failure with hypoxia: (5) Type 1 diabetes: PLAN: Plan Acute kidney injury on chronic kidney disease, unspecified stage. Baseline renal function is unclear although there is notation that serum creatinine was 1.60 mg/dL in 2020.? The last available serum creatinine in [facility] was from 04/22/2014 at 1.3 mg/dL. Suspect the patient has underlying diabetic kidney disease.? He is proteinuric in nephrotic range and has had longstanding, poorly controlled diabetes with retinopathy. Serologies including ANCA, C3, and C4 are negative.? Immunofixation is negative for monoclonal protein. It is possible that we are seeing progression of diabetic kidney disease towards ESRD. Unfortunately, biopsy could not be done because of patient's respiratory status and anxiety. Patient had cardiac catheterization 09/28: Significant diffuse two-vessel disease. Echo: EF 35% with stage III diastolic dysfunction and pulmonary hypertension Patient is now on BiPAP. Reviewed chest x-ray, patient to dialyze today over 4 hours and attempting 3 to 4 L as patient/blood pressure can tolerate. We will evaluate for ultrafiltration tomorrow. EDW not established yet. Blood pressures acceptable, please hold carvedilol mornings of dialysis. Outpatient dialysis arrangements Wednesday at [facility]. Documented by User: Dr. Aries Truong MD 09/30/22 14:47 Objective Data Lab / Micro Data Result Diagrams: 09/29/22 03:35 09/30/22 03:15 Assessment & Plan Assessment/Plan (1) TREVOR (acute kidney injury): (2) Metabolic acidosis: (3) Benign essential hypertension: (4) Acute respiratory failure with hypoxia: (5) Type 1 diabetes: PLAN: Plan Acute kidney injury on chronic kidney disease, unspecified stage. Baseline renal function is unclear although there is notation that serum creatinine was 1.60 mg/dL in 2020.? The last available serum creatinine in [facility] was from 04/22/2014 at 1.3 mg/dL. Suspect the patient has underlying diabetic kidney disease.? He is proteinuric in nephrotic range and has had longstanding, poorly controlled diabetes with retinopathy. Serologies including ANCA, C3, and C4 are negative.? Immunofixation is negative for monoclonal protein. It is possible that we are seeing progression of diabetic kidney disease towards ESRD. Unfortunately, biopsy could not be done because of patient's respiratory status and anxiety. Patient had cardiac catheterization 09/28: Significant diffuse two-vessel disease. Echo: EF 35% with stage III diastolic dysfunction and pulmonary hypertension Patient is now on BiPAP. Reviewed chest x-ray, patient to dialyze today over 4 hours and attempting 3 to 4 L as patient/blood pressure can tolerate. We will evaluate for ultrafiltration tomorrow. EDW not established yet. Blood pressures acceptable, please hold carvedilol mornings of dialysis. Outpatient dialysis arrangements Wednesday at [facility]. attending addendum Patient was seen and examined independently. Remains on BiPAP. Seen on dialysis/UF today. We will plan for total of 4 hours, last 1 hour UF. Able to remove about 3 L of fluid. Chest x-ray from this morning looks fairly wet. Will reevaluate for ultrafiltration tomorrow. Blood pressure has been acceptable so far. Regarding TREVOR work-up, serologies are negative so far. It is possible that this is all progression of CKD from diabetes. Was unable to do kidney biopsy in view of other medical events. He will also need evaluation for bypass surgery for multivessel disease. Transfer to tertiary center when stable. Discussed with ICU team
[2022-09-30] MEDS: Heparin 10,000 UNITS/10 ML Vial 3800 UNITS IV (14:24)
--- NOTE | 2022-09-30 14:30 | DIALYSIS ---
Hemodialysis x 3 hours then switched to IUF for last hour for additional fluid removal. pt's bp's continued to drop although he said he felt ok he started to appear sleepy. Discussed with Dr Perez and IUF portion stopped a little bit early. -3400ml off. BP immediately increased with return of blood. stable run. CVC did require line reversal. New CHG dressing was applied. closed with Heparin. Report to [facility]
[2022-09-30] MEDS: Cefazolin 1 GM/50 ML BAG IV (17:20)
[2022-09-30 17:46] LABS: Bedside Glucose 245 mg/dL (74-106)
[2022-09-30] MEDS: Latanoprost 0.005% 1 Bottle 1 DRP OPHTHALMIC (21:36)
[2022-10-01] VITALS (24 sets, daily range): BP systolic 125–185; BP diastolic 62–87; PULSE 81–106; RESP 14–27; TEMP 36.4–37.3; O2SAT 93–100
[2022-10-01] MEDS: Insulin Lispro 100 UNIT/ML INSULN.PEN SC ×5 (00:09→23:46)
[2022-10-01 00:16] LABS: Bedside Glucose 278 mg/dL (74-106)
[2022-10-01] MEDS: hydrALAZINE 20 MG/ML Vial 10 MG IV (03:50)
[2022-10-01] MEDS: 0.9% Saline Lock 10 ML Syringe IV ×4 (03:50→22:03)
[2022-10-01] MEDS: CHLORHEXIDINE GLUC 2% CLOTH 1 EACH TOWELETTE TOPICAL (03:50)
[2022-10-01 03:51] LABS: Absolute Lymphocyte Count 1.07 X10^3/uL (0.83-4.51); Basophil# 0.09 X10^3/uL; Basophil% 0.6 % (0-1); Eosinophil# 0.07 X10^3/uL; Eosinophils% 0.5 % (0-5); Hematocrit 28.9 % (40-54); Hemoglobin 9.1 g/dL (13.0-16.5); Lymphocyte # 1.07 X10^3/ul (0.83-4.51); Lymphocyte % 7.1 % (19-41); Mean Corp Hgb Conc 31.5 g/dL (32-36); Mean Platelet Vol. 10.8 fl (6.2-12.0); Monocyte# 1.71 X10^3/uL; Monocyte% 11.4 % (0-10); NRBC Flagged by Analyzer 0 % (0-5); Neutrophil # 12.03 X10^3/uL (2.7-7.7); Neutrophil % 79.9 % (47-70); POSITIVE DIFFERENTIAL YES; Platelet Count 407 K/mm3 (150-450); RBC Distribution Width CV 12.6 % (11.6-14.6); RBC Distribution Width SD 41.6 fl (35.1-43.9); Red Blood Count 3.14 M/mm3 (4.6-6.2)
[2022-10-01 03:54] LABS: Differential Indicated SCAN CRITERIA MET
[2022-10-01 04:00] LABS: International Normalized Ratio 1.3; Prothrombin Time (Protime)PT. 15.9 SECONDS (11.7-14.9)
[2022-10-01 04:01] LABS: Partial Thromboplast Time 40.6 Seconds (24.1-36.2)
[2022-10-01 04:21] LABS: Anion Gap 13 (5-15); BUN 31 mg/dL (7-18); BUN/Creat Ratio 6.1 RATIO (10-20); Calcium,Total 8.9 mg/dL (8.5-10.1); Chloride 100 mmol/L (98-107); Creatinine, Serum 5.09 mg/dL (0.70-1.30); EST Glomerular Filtration Rate 13 mL/min (>60); Est Glom Filt Rate - Afr Amer 15 mL/min (>60); Estimated Creatinine Clearance 16.33 ml/min; Glucose 187 mg/dL (74-106); Potassium 3.4 mmol/L (3.5-5.1); Sodium Level 137 mmol/L (136-145)
[2022-10-01 04:26] LABS: Differential Comment SCANNED
[2022-10-01 05:40] LABS: Bedside Glucose 247 mg/dL (74-106)
--- NOTE | 2022-10-01 05:58 | EKG12_ITS ---
Test Reason : PRE-OP Blood Pressure : / mmHG Vent. Rate : 100 BPM Atrial Rate : 100 BPM P-R Int : 178 ms QRS Dur : 096 ms QT Int : 364 ms P-R-T Axes : 072 069 241 degrees QTc Int : 469 ms Normal sinus rhythm Left ventricular hypertrophy ST segment abnormality: Consider LVH repolarzation vs myocardial ischemia Abnormal ECG Confirmed by MACI HERMOSILLO, ZEINAB ([id number]), editor & co founder EMMANUEL NEWMAN ([id number]) on 10/02/2022 7:51:39 AM Referred By: PADMINI Confirmed By:ZEINAB LUX MD
--- NOTE | 2022-10-01 07:48 | CON.PCM.SX_ITS ---
Assessment & Plan Assessment/Plan (1) Dysphagia: QUALIFIERS: Dysphagia type: unspecified Qualified Code(s): R13.10 - Dysphagia, unspecified PLAN: The patient has dysphagia and has failed several swallow studies. I was consulted for feeding tube placement. I discussed PEG tube placement with the patient's family as the patient is confused. I obtained consent from the patient's stepson who is his decision-maker. I did discuss this with the pa colin through writing as he is deaf and the patient did agree as well. I will plan for EGD with PEG tube today. I also discussed with Dr. Hampton and he feels that the patient is safe for procedural sedation. I explained endoscopy in detail to the patient's family member. I explained the risks including but not limited to stroke or heart attack with anesthesia, perforation of the GI tract, bleeding, infection. I explained that any of these could necessitate further emergency surgery. The patient understands and all questions were answered sufficiently. The patient and his family wish to p roceed with procedure. Aristeo Chung MD Pager: [facility] [address] [place] [address], [address] [place] [address] Office: HPI Consult Data Date of Consult: 10/01/22 HPI Narrative HPI Narrative: SCOTT BUTLER, is a 57 M who is admitted to the ICU for NSTEMI and acute kidney injury. I was consulted for a feeding tube as the patient has failed several swallow studies. [facility] Medical History (Updated 10/01/22 @ 07:[address] Aristeo Chung MD) Acute renal failure Congenital deafness Deaf Diabetes HTN (hypertension) Hyperlipidemia On mechanically assisted ventilation Stroke Vision problem Home Medications aspirin 325 mg tablet 325 mg PO DAILY [facility] 01/04/20 [History Last Taken 09/15/22] dorzolamide-timolol (PF) 2 %-0.5 % eye drops in a dropperette 1 drp ophthalmic (eye) BID eyes 01/04/20 [History Last Taken Unknown] latanoprost 0.005 % eye drops 1 drp ophthalmic (eye) DAILY eyes 01/04/20 [History Last Taken Unknown] pen needle, diabetic 31 gauge x 5/16 (Comfort EZ Pen [place]) #1,200 ea 01/04/20 [History Last Taken Unknown] blood sugar diagnostic (Accu-Chek Guide test strips) #100 ea 03/07/20 [Rx Last Taken Unknown] simvastatin 80 mg tablet 80 mg PO QHS #30 tabs 07/04/21 [Rx Last Taken Unknown] losartan 50 mg tablet 50 mg PO BID #180 tabs 05/11/22 [Rx Last Taken Unknown] insulin aspart U-100 100 unit/mL (3 mL) subcutaneous pen (Novolog Flexpen U-100 Insulin aspart) See Rx Instructions subcut TID #30 mL 07/02/22 [Rx Last Taken Unknown] amlodipine 5 mg tablet 5 mg PO DAILY BP 09/14/22 [History Last Taken 09/15/22] omeprazole 20 mg capsule,delayed release 20 mg PO DAILY stomach 09/14/22 [History Last Taken Unknown] insulin degludec 200 unit/mL (3 mL) subcutaneous pen (Tresiba FlexTouch U-200 insulin) 25 unit subcut DAILY diabetes 09/16/22 [History Last Taken 09/15/22] Allergy/AdvReac Type Severity Reaction Status Date / Time No Known Allergies Allergy Verified 09/15/22 10:39 Family History Mother Diabetes Deaf Surgical History unable to obtain Social History Smoking Status: Never smoker alcohol intake: never substance use type: does not use what type of physical activity do you participate in: none ROS Review of Systems ROS Unobtainable: due to mental status Physical Exam Const alert HEENT normocephalic Eyes PERRL Neck full ROM Chest inspection of chest normal Resp normal respiratory effort Cardio Rate: regular rate Rhythm: regular rhythm GI soft to palpation, non-tender and non-distended Extremity normal to inspection Neuro CN's II-XII intact bilaterally Lab / Micro Data Result Diagrams: 10/01/22 03:40 10/01/22 03:40 Labs: Laboratory Results - last 24 hr 09/30/22 12:26: POC Glucose 114 H 09/30/22 17:20: POC Glucose 245 H 09/30/22 23:58: POC Glucose 278 H 10/01/22 03:40: WBC 15.0 H, RBC 3.14 L, Hgb 9.1 L, Hct 28.9 L, MCV 92.0, MCH 29.0, MCHC 31.5 L, RDW Std Deviation 41.6, RDW Coeff of Jenifer 12.6, Plt Count 407, MPV 10.8, Immature Gran % (Auto) 0.500, Neut % (Auto) 79.9 H, Lymph % (Auto) 7.1 L, [place] % (Auto) 11.4 H, Eos % (Auto) 0.5, Baso % (Auto) 0.6, Absolute Neuts (auto) 12.0 H, Absolute Lymphs (auto) 1.07, Nucleated RBC % 0, Differential Comment SCANNED, Diff Path Review February10/01/22 03:40: PT 15.9 H, INR 1.3, APTT 40.6 H 10/01/22 03:40: Sodium 137, Potassium 3.4 L, Chloride 100, Carbon Dioxide 24.0, Anion Gap 13, BUN 31 H, Creatinine 5.09 H, Estim Creat Clear Calc 16.33, Est GFR (MDRD) Af Amer 15 L, Est GFR (MDRD) Non-Af 13 L, BUN/Creatinine Ratio 6.1 L, Glucose 187 H, Calcium 8.9 10/01/22 05:16: POC Glucose 247 H
--- NOTE | 2022-10-01 08:01 | PCM.PN.INT ---
Assessment & Plan Assessment/Plan (1) Acute respiratory failure with hypoxia: PLAN: Plan RECOMMENDATIONS: 1. Dialysis with volume removal per nephrology 2. Patient to complete antibiotics today 3. BiPAP with sleep and rescue during the day if necessary 4. Continue Protonix for GI prophylaxis. 5. Ongoing dialysis support per nephrology recommendations. Defer potassium repletion to nephrology 6. Transfer to tertiary center when available. Medical optimization per cardiology 7. Blood pressure optimization per cardiology/renal 8. Likely okay to leave the intensive care unit if tolerates PEG well. IMPRESSIONS: 1. Acute hypoxemic respiratory failure Appears to be secondary to hypervolemia in the setting of acute kidney injury. The patient's chest x-ray continues to demonstrate progressive bilateral pulmonary vascular congestion and a right-sided pleural effusion. The patient has been unable to lay flat to facilitate placement of a dialysis catheter. Therefore, he was intubated on September 22, in order to facilitate placement of a temporary HD line and subsequent dialysis support. Patient has been receiving hemodialysis and oxygenation continues to improve. Patient was significant improvement with volume removal. Patient will be at risk for development of flash pulmonary edema in the future given kidney and cardiac functions. 2. Acute kidney injury Unclear etiology. Nephrology is following to assist with medical management. The patient is in need of hemodialysis and volume optimization routinely. Management as noted above. 3. NSTEMI The patient's echocardiogram demonstrated a depressed ejection fraction at 35% with stage III diastolic dysfunction and pulmonary hypertension. Cardiology is following to assist with medical management. Cardiac catheterization shows significant diffuse two-vessel disease, but unfortunately transfer to a tertiary center has been held secondary to bed availability. 4. Diabetes mellitus/hypertension/congenital deafness/GERD Complicates care, management, recovery and prognosis. Continue home medications as indicated. 5. Hypertensive emergency Emergency indicated by the onset of respiratory failure. Patient with significantly elevated blood pressures. Defer to nephrology and cardiology on optimization. Patient should have dialysis today with volume removal. Patient did have a fall and blood pressure with dialysis, but is significantly hypertensive at this time Subjective Subjective Patient did well overnight. Patient did have 3.4 L removed with dialysis yesterday and has been tolerating nasal cannula overnight. Patient did wear BiPAP with sleep and tolerated this well. No pain is reported this morning. Patient did have lower blood pressures with dialysis, but these have increased throughout the evening. Speech therapy had reported significant dysphagia yesterday and had recommended a PEG tube. Surgery was consulted. Objective Data Objective Data Patient tentatively to have a PEG tube placed at 1:30 PM today. Vital Signs: Vital Signs Temp Pulse Resp BP Pulse Ox O2 Del Method O2 Flow Rate 37.2 C 105 H 27 H 185/87 H 100 Bi-pap 3 10/01/22 03:45 10/01/22 07:57 10/01/22 05:20 10/01/22 03:45 10/01/22 05:20 10/01/22 03:45 09/30/22 22:00 FiO2 30 10/01/22 05:20 Oxygen Flow Rate (L/min) 3 Oxygen Delivery Method Bi-pap Weight: 74.2 kg Body Mass Index (BMI) 25.8 Intake & Output: Intake and Output for Last 24 Hours 09/29/22 09/30/22 10/01/22 23:59 23:59 23:59 Intake Total 651.20 / 651.20 270 / 270 0 / 0 Output Total 1325 / 1325 4350 / 4475 175 / 175 Balance -673.80 / -673.80 -4080 / -4205 -175 / -175 Lab / Micro Data Attestation: I reviewed the patient's lab results. Result Diagrams: 10/01/22 03:40 10/01/22 03:40 Labs: Laboratory Results - last 24 hr 09/30/22 12:26: POC Glucose 114 H 09/30/22 17:20: POC Glucose 245 H 09/30/22 23:58: POC Glucose 278 H 10/01/22 03:40: WBC 15.0 H, RBC 3.14 L, Hgb 9.1 L, Hct 28.9 L, MCV 92.0, MCH 29.0, MCHC 31.5 L, RDW Std Deviation 41.6, RDW Coeff of Jenifer 12.6, Plt Count 407, MPV 10.8, Immature Gran % (Auto) 0.500, Neut % (Auto) 79.9 H, Lymph % (Auto) 7.1 L, [place] % (Auto) 11.4 H, Eos % (Auto) 0.5, Baso % (Auto) 0.6, Absolute Neuts (auto) 12.0 H, Absolute Lymphs (auto) 1.07, Nucleated RBC % 0, Differential Comment SCANNED, Diff Path Review February10/01/22 03:40: PT 15.9 H, INR 1.3, APTT 40.6 H 10/01/22 03:40: Sodium 137, Potassium 3.4 L, Chloride 100, Carbon Dioxide 24.0, Anion Gap 13, BUN 31 H, Creatinine 5.09 H, Estim Creat Clear Calc 16.33, Est GFR (MDRD) Af Amer 15 L, Est GFR (MDRD) Non-Af 13 L, BUN/Creatinine Ratio 6.1 L, Glucose 187 H, Calcium 8.9 10/01/22 05:16: POC Glucose 247 H Micro: Microbiology 09/23/22 07:34 Sputum, Tracheal Aspirate Gram Stain - Final 09/23/22 07:34 Sputum, Tracheal Aspirate Respiratory Culture - Final Staphylococcus aureus 09/22/22 07:20 Sputum, Induced/Lukens Gram Stain - Final 09/22/22 07:20 Sputum, Induced/Lukens Respiratory Culture - Final Mixed normal respiratory amparo. No Streptococcus pneumoniae, beta-hemolytic Streptococcus or Staphylococcus aureus isolated. 09/17/22 15:45 Urine, Clean Catch Urine Culture - Final Culture exhibits no growth. 09/16/22 07:05 Nasal Secretion SARS-CoV-2 & FLU Antigen (Rapid) - Final Physical Exam Const alert Constitutional Narrative: On nasal cannula during my evaluation. Good synchrony. Makes eye contact General Appearance: Negative for in distress HEENT normocephalic and head/scalp atraumatic General Ear: hearing grossly impaired Eyes PERRL, EOMs intact bilaterally and conjunctivae normal Neck supple Neck Narrative: Tunneled hemodialysis catheter noted. General: trachea midline Chest inspection of chest normal Resp Auscultation: diminished lung sounds; Negative for rales, rhonchi or wheezes Cardio regular rate, regular rhythm, S1 normal heart sound, S2 normal heart sound, no murmurs, no rub and no gallops GI normal to inspection, nondistended, normoactive bowel sounds no CVA tenderness Extremity General Extremity: edema Skin no rashes or lesions noted Neuro moves all extremities and no focal motor deficits Psych cooperative Mood & Affect: flat affect Charges/Coding Visit Charges Inpatient E&M: 91447 Subs Hosp L3
[2022-10-01 08:29] LABS: Hemoglobin A1c 7.4 % (3.8-5.6)
[2022-10-01] MEDS: Dorzolamide HCL/Timolol 10 ml Bottle 1 DRP OPHTHALMIC ×2 (08:53→21:44)
--- NOTE | 2022-10-01 09:51 | PCM.PN.REN ---
Subjective Subjective Awake, resting quietly in bed. No overnight events Objective Data Objective Data Vital Signs: Vital Signs Temp Pulse Resp BP Pulse Ox O2 Del Method O2 Flow Rate 99.0 F 105 H 27 H 185/87 H 100 Bi-pap 3 10/01/22 03:45 10/01/22 07:57 10/01/22 05:20 10/01/22 03:45 10/01/22 05:20 10/01/22 03:45 09/30/22 22:00 FiO2 30 10/01/22 05:20 Oxygen Flow Rate (L/min) 3 Oxygen Delivery Method Bi-pap Weight: 74.2 kg Body Mass Index (BMI) 25.8 Intake & Output: Intake and Output for Last 24 Hours 09/29/22 09/30/22 10/01/22 23:59 23:59 23:59 Intake Total 651.20 / 651.20 270 / 270 110 / 110 Output Total 1325 / 1325 4350 / 4475 175 / 175 Balance -673.80 / -673.80 -4080 / -4205 -65 / -65 Lab / Micro Data Result Diagrams: 10/01/22 03:40 10/01/22 03:40 Labs: Laboratory Results - last 24 hr 09/30/22 12:26: POC Glucose 114 H 09/30/22 17:20: POC Glucose 245 H 09/30/22 23:58: POC Glucose 278 H 10/01/22 03:40: WBC 15.0 H, RBC 3.14 L, Hgb 9.1 L, Hct 28.9 L, MCV 92.0, MCH 29.0, MCHC 31.5 L, RDW Std Deviation 41.6, RDW Coeff of Jenifer 12.6, Plt Count 407, MPV 10.8, Immature Gran % (Auto) 0.500, Neut % (Auto) 79.9 H, Lymph % (Auto) 7.1 L, [place] % (Auto) 11.4 H, Eos % (Auto) 0.5, Baso % (Auto) 0.6, Absolute Neuts (auto) 12.0 H, Absolute Lymphs (auto) 1.07, Nucleated RBC % 0, Differential Comment SCANNED, Diff Path Review February10/01/22 03:40: PT 15.9 H, INR 1.3, APTT 40.6 H 10/01/22 03:40: Sodium 137, Potassium 3.4 L, Chloride 100, Carbon Dioxide 24.0, Anion Gap 13, BUN 31 H, Creatinine 5.09 H, Estim Creat Clear Calc 16.33, Est GFR (MDRD) Af Amer 15 L, Est GFR (MDRD) Non-Af 13 L, BUN/Creatinine Ratio 6.1 L, Glucose 187 H, Calcium 8.9 10/01/22 03:40: Hemoglobin A1c 7.4 H 10/01/22 05:16: POC Glucose 247 H Micro: Microbiology 09/23/22 07:34 Sputum, Tracheal Aspirate Gram Stain - Final 09/23/22 07:34 Sputum, Tracheal Aspirate Respiratory Culture - Final Staphylococcus aureus 09/22/22 07:20 Sputum, Induced/Lukens Gram Stain - Final 09/22/22 07:20 Sputum, Induced/Lukens Respiratory Culture - Final Mixed normal respiratory amparo. No Streptococcus pneumoniae, beta-hemolytic Streptococcus or Staphylococcus aureus isolated. 09/17/22 15:45 Urine, Clean Catch Urine Culture - Final Culture exhibits no growth. 09/16/22 07:05 Nasal Secretion SARS-CoV-2 & FLU Antigen (Rapid) - Final Physical Exam Narrative alert, awake, no apparent distress S1, S2, RRR Lung sounds diminished. On RA Abdomen round, positive bowel sounds No significant pitting edema tunneled HD catheter dressing C/D/I Assessment & Plan Assessment/Plan (1) TREVOR (acute kidney injury): (2) Metabolic acidosis: (3) Benign essential hypertension: (4) Acute respiratory failure with hypoxia: (5) Type 1 diabetes: PLAN: Plan Acute kidney injury on chronic kidney disease, unspecified stage. Baseline renal function is unclear although there is notation that serum creatinine was 1.60 mg/dL in 2020.? The last available serum creatinine in [facility] was from 04/22/2014 at 1.3 mg/dL. Suspect the patient has underlying diabetic kidney disease.? He is proteinuric in nephrotic range and has had longstanding, poorly controlled diabetes with retinopathy. Serologies including ANCA, C3, and C4 are negative.? Immunofixation is negative for monoclonal protein. It is possible that we are seeing progression of diabetic kidney disease towards ESRD. Unfortunately, biopsy could not be done because of patient's respiratory status and anxiety. Patient had cardiac catheterization 09/28: Significant diffuse two-vessel disease. Echo: EF 35% with stage III diastolic dysfunction and pulmonary hypertension Tolerated dialysis yesterday with 3 L fluid removed. No acute indication for DETAILER FURNITURE today. Plan for dialysis tomorrow and attempt UF as pt/bp tolerates. EDW not established yet. Patient still has adequate UOP. On Coreg, will give dose lasix today; please hold carvedilol mornings of dialysis. Home BP meds were norvasc and losartan but were on hold due to TREVOR and hypotension. Outpatient dialysis arrangements Wednesday at [facility]. multivessel CAD possibly planning transfer to tertiary care center when stable and bed available
--- NOTE | 2022-10-01 10:09 | CASEMGMT ---
ISABEL CAMARA Follow-up: Call received from Darnell with [facility] admissions, return call placed and Darnell updated that pt's discharge disposition is being evaluated for LTACH vs SNF. Outpt HD needs will be based on determined disposition. Chair time to be held until determination has been made. Darnell can be reached at [phone] when updates are available. Kay Monroe RN CM
--- NOTE | 2022-10-01 10:30 | PCM.PN.HOSP ---
Subjective Subjective Follow-up for TREVOR on dialysis, non-STEMI. Objective Data Objective Data Vital Signs: Vital Signs Temp Pulse Resp BP Pulse Ox O2 Del Method O2 Flow Rate 99.0 F 106 H 20 H 173/74 H 98 Nasal Cannula 2 10/01/22 08:00 10/01/22 08:00 10/01/22 08:00 10/01/22 08:00 10/01/22 08:00 10/01/22 08:00 10/01/22 08:00 FiO2 30 10/01/22 05:20 Oxygen Flow Rate (L/min) 2 Oxygen Delivery Method Nasal Cannula Weight: 163 lb 9.328 oz Body Mass Index (BMI) 25.8 Intake & Output: Intake and Output for Last 24 Hours 09/29/22 09/30/22 10/01/22 23:59 23:59 23:59 Intake Total 651.20 / 651.20 270 / 270 110 / 110 Output Total 1325 / 1325 4350 / 4475 175 / 175 Balance -673.80 / -673.80 -4080 / -4205 -65 / -65 Lab / Micro Data Result Diagrams: 10/01/22 03:40 10/01/22 03:40 Labs: Laboratory Results - last 24 hr 09/30/22 12:26: POC Glucose 114 H 09/30/22 17:20: POC Glucose 245 H 09/30/22 23:58: POC Glucose 278 H 10/01/22 03:40: WBC 15.0 H, RBC 3.14 L, Hgb 9.1 L, Hct 28.9 L, MCV 92.0, MCH 29.0, MCHC 31.5 L, RDW Std Deviation 41.6, RDW Coeff of Jenifer 12.6, Plt Count 407, MPV 10.8, Immature Gran % (Auto) 0.500, Neut % (Auto) 79.9 H, Lymph % (Auto) 7.1 L, [place] % (Auto) 11.4 H, Eos % (Auto) 0.5, Baso % (Auto) 0.6, Absolute Neuts (auto) 12.0 H, Absolute Lymphs (auto) 1.07, Nucleated RBC % 0, Differential Comment SCANNED, Diff Path Review February10/01/22 03:40: PT 15.9 H, INR 1.3, APTT 40.6 H 12/22/22 03:40: Sodium 137, Potassium 3.4 L, Chloride 100, Carbon Dioxide 24.0, Anion Gap 13, BUN 31 H, Creatinine 5.09 H, Estim Creat Clear Calc 16.33, Est GFR (MDRD) Af Amer 15 L, Est GFR (MDRD) Non-Af 13 L, BUN/Creatinine Ratio 6.1 L, Glucose 187 H, Calcium 8.9 10/01/22 03:40: Hemoglobin A1c 7.4 H 10/01/22 05:16: POC Glucose 247 H Micro: Microbiology 09/23/22 07:34 Sputum, Tracheal Aspirate Gram Stain - Final 09/23/22 07:34 Sputum, Tracheal Aspirate Respiratory Culture - Final Staphylococcus aureus 09/22/22 07:20 Sputum, Induced/Lukens Gram Stain - Final 09/22/22 07:20 Sputum, Induced/Lukens Respiratory Culture - Final Mixed normal respiratory amparo. No Streptococcus pneumoniae, beta-hemolytic Streptococcus or Staphylococcus aureus isolated. 09/17/22 15:45 Urine, Clean Catch Urine Culture - Final Culture exhibits no growth. 09/16/22 07:05 Nasal Secretion SARS-CoV-2 & FLU Antigen (Rapid) - Final Physical Exam Narrative Physical exam Was extubated on 09/29/2022. Overall patient did well yesterday. Currently on 2 L of oxygen. Had tunneled dialysis catheter on 09/25/2022. General: Awake. Short of breath. Responds with thumbs up. Orientation unobtainable as patient is deaf and does not read lips/understand sign language. HEENT: Atraumatic, PERRLA, EOMI, Normocephalic Oral: BiPAP mask. Neck: Supple, No JVD, Negative Carotid Bruits Lungs: Air entry diminished in bilateral lung bases. No crepts on vent support Cardiovascular: Sinus Rhythm, PVC, normal S1, Normal S2, No murmurs Abdomen: Bowel Sounds Giersch, Soft, Non Tender, Non-Distended : Little urine output Lopez catheter,. No renal angle tenderness. No suprapubic tenderness. Extremities: Bilateral edema, Capillary Refill Less than 3 Seconds Skin: No rashes, No breakdown Musculoskeletal: No Tenderness to Palpation of Joints or Extremities Neurological: Cranial nerves II-XII grossly intact, DTR 2+/4. Psych/Mental Status: Flat affect. Assessment & Plan Assessment/Plan (1) Non-ST elevated myocardial infarction (non-STEMI): PLAN: Troponins were 1211. Patient did have some ST depressions in the inferior leads. Echocardiogram on 09/16 shows an EF of 35% with stage III diastolic dysfunction and moderate to severe global hypokinesis of the left ventricle. Pulmonary artery systolic pressure of 40 mmHg. Plan: Discontinue heparin drip cardiology following, recommended baby aspirin, amlodipine, metoprolol and as needed hydralazine Given his kidney function there is no current plans for cardiac catheterization until his kidney function is stabilized/hemodialyzed 09/23: Plan will be cardiac cath when he is well compensated in regards to pulmonary edema. 09/27, plan for cardiac cath on Wednesday. 09/29: Cardiac cath on 2018 reported diffusely diseased two-vessel disease, LV systolic dysfunction. LV gram EF 40%. LAD diffusely diseased with no area of high-grade stenosis. Circumflex eccentric 90% distal occlusion, rest diffusely diseased. RCA proximal 60% followed by focal 80 to 90%, mid segment 70% and distally PDA and MYCHAL diffusely diseased. Recommended tertiary care transfer referral for targeted PCI after patient is stabilized on dialysis and extubation. 09/30:[facility] severe diffuse double vessel coronary artery disease for CABG.? Earlier Dr. Hampton has talked to Dr. Linn regarding transfer and he said okay.? recycle coordinator said hospital is not accepting any transfer from hospital from order of higher authorities.? This was further discussed with roundhouse worker and we agreed on continuation of medical treatment and outpatient follow-up with cardiac surgeon. Repeat chest x-ray shows pulmonary edema with small bilateral pleural effusion. 10/01: Patient on 2 L of oxygen. Patient is changed to PCU level. Patient blood pressure is high. Heart rate in 100s. Coreg dose increased to 12.5 mg twice daily. Started on hydralazine 25 mg p.o. 3 times daily. Transfer ordered for PCU. (2) Acute renal failure: PLAN: BMP on February 19, 2021 and his creatinine at that time was 1.66. Unclear if this is been just a chronic progression since then or this is been an acute worsening Renal ultrasound showed some medical renal disease Fractional excretion of sodium is 3.56% Plan: Losartan on hold. Discussed with the director of community center. Patient had a scheduled renal biopsy and tunneled hemodialysis catheter which was canceled due to respiratory distress. Patient has NON-anion gap metabolic acidosis, bicarb 15, chloride 107. Creatinine 8.92. 09/22:Chest x-ray portable shows bilateral pulmonary edema and right-sided pleural effusion. Patient had temporary dialysis catheter through right IJ. Dialysis orders started. Discussed with the director of community center. 09/23: Plan for Dialysis Today. Discussed with the Bakery Machine Mechanic Supervisor. Tunneled dialysis catheter posted for Wednesday. 09/24: Plan for dialysis today. Patient is 1775 mL positive fluid. Rest is stays same. 09/25: Plan for tunneled dialysis catheter today 09/26: Dialysis catheter on right upper chest, surgical site does not show hematoma or bleeding. Temporary dialysis catheter removed. (3) Hypertensive emergency: PLAN: Improved considered for endorgan damage with acute kidney injury continue amlodipine Losartan held for acute kidney injury Patient will be also started on metoprolol titrate As needed hydralazine 09/22: BP on lower side due to sedative but not in hypotensive range 09/24: BP is normal. 09/27: Blood pressure high. Labetalol IV as needed also ordered. 09/28: Blood pressure normal. 09/30: Blood pressure high. 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 Blood sugars elevated but patient is not currently in DKA Continue with basal insulin to 25 units daily and his prandial insulin is at 38 but I will change it over 30 but also have a sliding scale insulin. Last A1c from September 14 was 7 Patient did have hypoglycemic down to 19 yesterday. Glargine was discontinued. We will need to reintroduce but hold off on the high-dose prandial insulin the patient was receiving. 09/27: Patient glucose is high in 500s. Lantus dose increased to 15 subcutaneous twice daily along with Humalog insulin 15 subcutaneous every 8 hourly. Hold due to vomiting. (5) Congenital deafness: PLAN: Apparently all the information that the stepson told me about the patient not be able to read or read lips is not accurate. Was able to communicate to the patient by talking to him directly and he expressed understanding. I did have to repeat some things but he did grasp understanding. (6) Acute respiratory failure with hypoxia: PLAN: 09/21: Patient had respiratory distress, tachypnea and hypoxia on 1 L of oxygen. First kidney biopsy was canceled as pertinent could not lay down prone or on sideways and then thrombolysis of catheter for same region. Subsequently patient was transferred to ICU. [employer] consult requested. Patient initially needs to be tried on NIPPV and if cannot salvage will need intubation. I requested Dr. Arteaga for temporary dialysis but he said director of community center can put it. Chest x-ray stat ordered 10/10 patient was intubated in the morning. On IV propofol and fentanyl drip. 09/24: Sputum endotracheal culture reported mixed normal respiratory amparo. MRSA PCR positive. Patient did not had fever 1 time 100.2 Fahrenheit today. On IV Zosyn. 09/25: T-max 100.7 Fahrenheit last evening. On Zosyn and vancomycin 09/26: Sputum culture shows MSSA. DC vancomycin. Started on IV cefazolin IV Zosyn since 09/23. 09/28: Patient has been on IV Zosyn for 5 days and culture shows MSSA therefore discontinued. Continue IV cefazolin. No fever 4 days 09/30: Patient on BiPAP. Acute hypoxic respiratory failure due to pulmonary edema. 10/02: Patient completed 7 days of IV cefazolin on 10/02 last date. (7) Cardiomyopathy: PLAN: EF of 35% Unclear etiology More definitive cardiac evaluation, including cardiac catheterization on hold pending kidney evaluation Not a candidate for ANIA inhibitors nor angiotensin receptor blockers given acute kidney injury PLAN: Plan VTE prophylaxis: Not indicated as patient will be anticoagulated. The patient's sister and father both can hear. They state that the patient was born with congenital deafness and they tried to see if there is anything that could be remedied by going to different facilities but said there is nothing that could be done. They report that the patient read lips poorly and reads basic simple written commands or questions. Charges/Coding Visit Charges Inpatient E&M: 68490 Subs Hosp L3
--- NOTE | 2022-10-01 10:51 | PN.CARD_ITS ---
Documented by User: ESSENCE Palmer 10/01/22 11:07 Subjective Subjective Patient seen and evaluated. As I am trying to have a conversation with him it difficult to assess if is orientated. He only shakes his head yes to any questions written or asked. He did not start his Coreg and he is unable to swallow. He is having a PEG tube placed today. Objective Data Vital Signs: Vital Signs Temp Pulse Resp BP Pulse Ox O2 Del Method O2 Flow Rate 99.0 F 106 H 20 H 173/74 H 98 Nasal Cannula 2 10/01/22 08:00 10/01/22 08:00 10/01/22 08:00 10/01/22 08:00 10/01/22 08:00 10/01/22 08:00 10/01/22 08:00 FiO2 30 10/01/22 05:20 Oxygen Flow Rate (L/min) 2 Oxygen Delivery Method Nasal Cannula Weight: 163 lb 9.328 oz Body Mass Index (BMI) 25.8 Intake & Output: Intake and Output for Last 24 Hours 09/29/22 09/30/22 10/01/22 23:59 23:59 23:59 Intake Total 651.20 / 651.20 270 / 270 110 / 110 Output Total 1325 / 1325 4350 / 4475 175 / 175 Balance -673.80 / -673.80 -4080 / -4205 -65 / -65 Lab / Micro Data Result Diagrams: 10/01/22 03:40 10/01/22 03:40 Labs: Laboratory Results - last 24 hr 09/30/22 12:26: POC Glucose 114 H 09/30/22 17:20: POC Glucose 245 H 09/30/22 23:58: POC Glucose 278 H 10/01/22 03:40: WBC 15.0 H, RBC 3.14 L, Hgb 9.1 L, Hct 28.9 L, MCV 92.0, MCH 29.0, MCHC 31.5 L, RDW Std Deviation 41.6, RDW Coeff of Jenifer 12.6, Plt Count 407, MPV 10.8, Immature Gran % (Auto) 0.500, Neut % (Auto) 79.9 H, Lymph % (Auto) 7.1 L, [place] % (Auto) 11.4 H, Eos % (Auto) 0.5, Baso % (Auto) 0.6, Absolute Neuts (auto) 12.0 H, Absolute Lymphs (auto) 1.07, Nucleated RBC % 0, Differential Comment SCANNED, Diff Path Review February10/01/22 03:40: PT 15.9 H, INR 1.3, APTT 40.6 H 10/01/22 03:40: Sodium 137, Potassium 3.4 L, Chloride 100, Carbon Dioxide 24.0, Anion Gap 13, BUN 31 H, Creatinine 5.09 H, Estim Creat Clear Calc 16.33, Est GFR (MDRD) Af Amer 15 L, Est GFR (MDRD) Non-Af 13 L, BUN/Creatinine Ratio 6.1 L, Glucose 187 H, Calcium 8.9 10/01/22 03:40: Hemoglobin A1c 7.4 H 10/01/22 05:16: POC Glucose 247 H Cardiology Labs/Tests 10/01/22 03:40: WBC 15.0 H, RBC 3.14 L, Hgb 9.1 L, Hct 28.9 L, MCV 92.0, MCH 29.0, MCHC 31.5 L, Plt Count 407, MPV 10.8, Immature Gran % (Auto) 0.500, Neut % (Auto) 79.9 H, Lymph % (Auto) 7.1 L, [place] % (Auto) 11.4 H, Eos % (Auto) 0.5, Baso % (Auto) 0.6, Absolute Neuts (auto) 12.0 H, Nucleated RBC % 0 10/01/22 03:40: PT 15.9 H, INR 1.3, APTT 40.6 H 10/01/22 03:40: Sodium 137, Potassium 3.4 L, Chloride 100, Carbon Dioxide 24.0, Anion Gap 13, BUN 31 H, Creatinine 5.09 H, Est GFR (MDRD) Af Amer 15 L, Est GFR (MDRD) Non-Af 13 L, BUN/Creatinine Ratio 6.1 L, Glucose 187 H, Calcium 8.9 10/01/22 03:40: Hemoglobin A1c 7.4 H Rhythm: SR with [address] depression, similar to previous. Physical Exam Const General Appearance: Negative for in distress HEENT normocephalic and head/scalp atraumatic General Ear: hearing grossly impaired bilateral (pt is deaf) Eyes PERRL, EOMs intact bilaterally and conjunctivae normal Neck supple Neck Narrative: Tunneled hemodialysis catheter noted. General: trachea midline Chest inspection of chest normal Resp Auscultation: diminished lung sounds; Negative for rales, rhonchi or wheezes Cardio regular rate, regular rhythm, S1 normal heart sound, S2 normal heart sound, no murmurs, no rub and no gallops GI normal to inspection, nondistended, normoactive bowel sounds no CVA tenderness Extremity General Extremity: edema Skin no rashes or lesions noted Psych Mood & Affect: flat affect Assessment & Plan Assessment/Plan (1) Non-ST elevated myocardial infarction (non-STEMI): PLAN: Patient presents with a non-ST elevation myocardial infarction. With his risk factors of hypertension as well as diabetes mellitus it is likely that he has premature coronary artery disease. His cardiac catheterization (09/28) demonstrated the following: Calcified left main coronary artery. Mild disease in the left main coronary artery. Left anterior descending artery which is diffusely diseased but no high-grade focal stenosis noted. Left circumflex artery which is nondominant with a proximal 90% stenotic eccentric calcified lesion noted. Dominant right coronary artery which is calcified severely diseased with ostial 60% stenosis, proximal 80 to 90% stenosis mid 70% stenosis and diffuse distal disease involving the posterior descending artery and posterior lateral vessel. The left ventricular systolic function is reduced estimated at 40%. Based on the above angiographic findings it is felt that he is a high risk for PCI at this time. He is on a waiting list to a tertiary care center. In the meantime will maximize medication. * Will restart his beta-gwyn, since his did not have his coreg yesterday d/t an inability to swallow and he is going for a PEG placement today would like for him to have one dose of IV lopressor at 2.5 mg. Once he can take his pills through his PEG will start Coreg and then continue to titrate and maximize. * continue with his ASA, Atorvastatin, hydralazine. * will consider starting Plavix. (2) Hypertensive emergency: PLAN: * He will start his coreg today, will titrate as tolerated * Continue with hydralazine * with his renal function unable to use ANIA/ARB (3) Decreased left ventricular systolic function: PLAN: * will continue to maximize medications * Started on Coreg * Can not take ANIA/ARB or Entresto d/t renal function Charges/Coding Visit Charges Inpatient E&M: 02932 Subs Hosp L2 Documented by User: Dr. Antonio Charles MD 10/01/22 18:22 Lab / Micro Data Result Diagrams: 10/01/22 03:40 10/01/22 03:40 Assessment & Plan Assessment/Plan (1) Non-ST elevated myocardial infarction (non-STEMI): (2) Hypertensive emergency: (3) Decreased left ventricular systolic function: PLAN: Plan I independently evaluated this patient who has significant atherosclerosis involving calcified severely diseased RCA ostial, proximal as well as distal stenosis of 80 to 90% distal stenosis involving the posterior descending artery in a large dominant RCA The EF is moderate with ejection fraction of around 40%. Very high risk patient with severe non-ST elevation CA cardiomyopathy type 1 diabetes mellitus We will continue to monitor and follow-up clinically Once stable plan will be to repair to tertiary care facility for the complex high risk PCI of the RCA Which we will set up by the primary park services specialist Dr. Hampton.
--- NOTE | 2022-10-01 11:09 | OP.CCLET_ITS ---
10/01/2022 Severo Virk Re : Upper GI endoscopy procedure for Antonio Ryder Todd This procedure was performed on September. My impressions and recommendations are as follows: Impressions : - Normal esophagus. - Normal stomach. - Normal examined duodenum. - An externally removable PEG placement was successfully completed. - No specimens collected. Recommendations : - [facility] to [facility]. - Please follow the post-PEG recommendations including: external bolster 1 cm from abdominal wall, change dressing once per day, may use PEG today for meds and water, may use PEG tomorrow for feedings, check site for bleeding q 4 hrs and clean site with soap and water daily and dry thoroughly. - Continue present medications. My findings are described in the full procedure note, which is enclosed. If I can be of further assistance, please feel free to contact me at Doctor phone number(s): , Work: . Sincerely, Aristeo Chung MD 10/01/2022 11:08:52 AM This report has been signed electronically.
--- NOTE | 2022-10-01 11:09 | OP.EGD_ITS ---
Patient Name: Antonio Saldivar Procedure Date: 10/01/2022 10:38 AM Date of : 1965 Age: 57 Procedure: Upper GI endoscopy Indications: Dysphagia Providers: Aristeo Chung MD Medicines: Monitored Anesthesia Care Patient Profile: This is a 57 year old male. Refer to note in patient chart for documentation of history and physical. Complications: No immediate complications. Procedure: Pre-Anesthesia Assessment: - Prior to the procedure, a History and Physical was performed, and patient medications and allergies were reviewed. The patient's tolerance of previous anesthesia was also reviewed. The risks and benefits of the procedure and the sedation options and risks were discussed with the patient. All questions were answered, and informed consent was obtained. Prior Anticoagulants: The patient has taken no previous anticoagulant or antiplatelet agents. After reviewing the risks and benefits, the patient was deemed in satisfactory condition to undergo the procedure. After obtaining informed consent, the endoscope was passed under direct vision. Throughout the procedure, the patient's blood pressure, pulse, and oxygen saturations were monitored continuously. The gastroscope was introduced through the mouth, and advanced to the second part of duodenum. The upper GI endoscopy was accomplished without difficulty. The patient tolerated the procedure well. Scope In: 10:54:39 AM Scope Out: 11:02:43 AM Total Procedure Duration Time 0 hours 8 minutes 4 seconds Findings: The esophagus was normal. The stomach was normal. The examined duodenum was normal. The patient was placed in the supine position for PEG placement. The stomach was insufflated to appose gastric and abdominal farmer. A site was located in the body of the stomach with excellent transillumination and manual external pressure for placement. The abdominal wall was marked and prepped in a sterile manner. The area was anesthetized with 4 mL of 0.5% lidocaine. The trocar needle was introduced through the abdominal wall and into the stomach under direct endoscopic view. A snare was introduced through the endoscope and opened in the gastric lumen. The guide wire was passed through the trocar and into the open snare. The snare was closed around the guide wire. The endoscope and snare were removed, pulling the wire out through the mouth. A skin incision was made at the site of needle insertion. The externally removable 20 Fr EndoVive Safety gastrostomy tube was lubricated. The G-tube was tied to the guide wire and pulled through the mouth and into the stomach. The trocar needle was removed, and the gastrostomy tube was pulled out from the stomach through the skin. The external bumper was attached to the gastrostomy tube, and the tube was cut to remove the guide wire. The final position of the gastrostomy tube was confirmed by relook endoscopy, and skin marking noted to be 3 cm at the external bumper. The final tension and compression of the abdominal wall by the PEG tube and external bumper were checked and revealed that the bumper was loose and lightly touching the skin and that the PEG balloon was loose and lightly touching the stomach. The feeding tube was capped, and the tube site cleaned and dressed. Impression: - Normal esophagus. - Normal stomach. - Normal examined duodenum. - An externally removable PEG placement was successfully completed. - No specimens collected. Recommendation: - [facility] patient to [facility] care. - Please follow the post-PEG recommendations including: external bolster 1 cm from abdominal wall, change dressing once per day, may use PEG today for meds and water, may use PEG tomorrow for feedings, check site for bleeding q 4 hrs and clean site with soap and water daily and dry thoroughly. - Continue present medications. Procedure Code(s): --- Professional --- 92843, Esophagogastroduodenoscopy, flexible, transoral; with directed placement of percutaneous gastrostomy tube Diagnosis Code(s): --- Professional --- R13.10, Dysphagia, unspecified CPT copyright 2017 [employer]. All rights reserved. The codes documented in this report are preliminary and upon aerospace engineer review may be revised to meet current compliance requirements. Aristeo Chung MD 10/01/2022 11:08:52 AM This report has been signed electronically. Number of Addenda: 0 Note Initiated On: 10/01/2022 10:38 AM
--- NOTE | 2022-10-01 11:11 | PN_ITS ---
Progress Note Patient had PEG tube placed today without difficulty. Patient's PEG tube may be used today for passing medications. Tube feeds may start tomorrow at noon. Aristeo Chung MD Pager: [facility] [address] [place] [address] [address] [place] [address] Office:
--- NOTE | 2022-10-01 11:11 | PCM.PN.BLA ---
Progress Note Patient had PEG tube placed today without difficulty. Patient's PEG tube may be used today for passing medications. Tube feeds may start tomorrow at noon. Aristeo Chung MD Pager: [facility] [address] [place] [address] [address] [place] [address] Office:
[2022-10-01] MEDS: Metoprolol Tartrate 5 MG/5 ML Vial 2.5 MG IV (11:59)
[2022-10-01] MEDS: Furosemide 40 MG/4 ML Vial IV (12:05)
--- NOTE | 2022-10-01 12:28 | CASEMGMT ---
Addendum entered by Kendal Petersen 10/01/22 16:49: Per Tiffany @ [facility], pt meets criteria for LTACH. She requests updated PN, dietary orders, and resp notes be sent to them tomorrow. She states she will start pre-cert tomorrow. Addendum entered by Elyse Parker 10/01/22 14:04: Received tc from Tiffany at [facility] who states she is reviewing referral. Addendum entered by Elyse Parker 10/01/22 13:43: [facility] Original Note: ISABEL CM into pt room to discuss dc planning via written per pen and paper. Made pt aware that it is recommended that pt go to a LTACH and asked if he was agreeable. Pt states he is. Provided pt with a printout of in network facilites to chose from. Pt wrote that he wants his to make the decision. TC to pt step son, Ben. He is present with pt . He signed to her the reason for the call and options given for [facility] and [facility]. Pt chose [facility] as they have had poor interactions with [facility].
[2022-10-01 12:35] LABS: Bedside Glucose 312 mg/dL (74-106)
[2022-10-01] MEDS: hydrALAZINE 25 MG Tablet PO (17:33)
[2022-10-01 18:25] LABS: Bedside Glucose 253 mg/dL (74-106)
[2022-10-01] MEDS: Cefazolin 1 GM/50 ML BAG IV (19:28)
[2022-10-01] MEDS: hydrALAZINE 25 MG Tablet GT (21:37)
[2022-10-01] MEDS: Senna/Docusate Sodium 1 Tablet 2 TABLET GT (21:38)
[2022-10-01] MEDS: Carvedilol 12.5 MG Tablet GT (21:38)
[2022-10-01] MEDS: Atorvastatin Calcium 40 MG Tablet GT (21:38)
[2022-10-01] MEDS: Latanoprost 0.005% 1 Bottle 1 DRP OPHTHALMIC (21:45)
[2022-10-01] MEDS: Ondansetron 4 MG/2 ML Vial IV (22:03)
[2022-10-02] VITALS (14 sets, daily range): BP systolic 131–187; BP diastolic 59–91; PULSE 75–100; RESP 14–21; TEMP 36.4–37.2; O2SAT 94–99
[2022-10-02 01:00] LABS: Bedside Glucose 299 mg/dL (74-106)
[2022-10-02] MEDS: Insulin Lispro 100 UNIT/ML INSULN.PEN SC ×3 (05:45→18:10)
[2022-10-02] MEDS: hydrALAZINE 25 MG Tablet GT (05:49)
[2022-10-02 06:26] LABS: Bedside Glucose 327 mg/dL (74-106)
[2022-10-02 07:40] LABS: Albumin, Serum 1.7 g/dL (3.2-5.0); BUN 56 mg/dL (7-18); BUN/Creat Ratio 7.8 RATIO (10-20); Calcium,Total 8.7 mg/dL (8.5-10.1); Chloride 99 mmol/L (98-107); EST Glomerular Filtration Rate 8 mL/min (>60); Est Glom Filt Rate - Afr Amer 10 mL/min (>60); Estimated Creatinine Clearance 11.55 ml/min; Glucose 323 mg/dL (74-106); Phosphorus 6.7 mg/dL (2.5-4.9); Potassium 3.3 mmol/L (3.5-5.1); Sodium Level 138 mmol/L (136-145)
--- NOTE | 2022-10-02 08:46 | PCM.PN.INT ---
Assessment & Plan Assessment/Plan (1) Acute respiratory failure with hypoxia: PLAN: Plan RECOMMENDATIONS: 1. Dialysis with volume removal per nephrology 2. Monitor off antibiotics 3. BiPAP with sleep and rescue during the day if necessary 4. Continue Protonix for GI prophylaxis. 5. Defer potassium repletion to nephrology 6. Transfer to tertiary center when available. Medical optimization per cardiology 7. Blood pressure optimization per cardiology/renal 8. Hemodynamically stable on room air. Will sign off from a critical care perspective IMPRESSIONS: 1. Acute hypoxemic respiratory failure Appears to be secondary to hypervolemia in the setting of acute kidney injury. The patient's chest x-ray continues to demonstrate progressive bilateral pulmonary vascular congestion and a right-sided pleural effusion. The patient has been unable to lay flat to facilitate placement of a dialysis catheter. Therefore, he was intubated on September 22, in order to facilitate placement of a temporary HD line and subsequent dialysis support. Patient has been receiving hemodialysis and oxygenation continues to improve. Patient was significant improvement with volume removal. Patient will be at risk for development of flash pulmonary edema in the future given kidney and cardiac functions. Volume status will be pivotal to maintain adequate saturations. Given patient is hemodynamically stable on room air, will sign off from a pulmonary/critical care perspective 2. Acute kidney injury Unclear etiology. Nephrology is following to assist with medical management. The patient is in need of hemodialysis and volume optimization routinely. Management as noted above. 3. NSTEMI The patient's echocardiogram demonstrated a depressed ejection fraction at 35% with stage III diastolic dysfunction and pulmonary hypertension. Cardiology is following to assist with medical management. Cardiac catheterization shows significant diffuse two-vessel disease, but unfortunately transfer to a tertiary center has been held secondary to bed availability. 4. Diabetes mellitus/hypertension/congenital deafness/GERD Complicates care, management, recovery and prognosis. Continue home medications as indicated. 5. Hypertensive emergency Blood pressure is much improved. Emergency indicated by the onset of respiratory failure. Patient with significantly elevated blood pressures. Defer to nephrology and cardiology on optimization. Patient should have dialysis today with volume removal. Patient did have a fall and blood pressure with dialysis, but is significantly hypertensive at this time Subjective Subjective Patient did well overnight. No acute issues were reported. Patient has been moved out of the intensive care unit. Patient has been tolerating room air. Patient tolerated PEG placement yesterday with no complications. Objective Data Objective Data Vital Signs: Vital Signs Temp Pulse Resp BP Pulse Ox O2 Del Method O2 Flow Rate 36.8 C 94 18 134/59 H 96 Room Air 2 10/02/22 05:40 10/02/22 07:00 10/02/22 05:40 10/02/22 05:40 10/02/22 05:40 10/02/22 08:11 10/01/22 17:25 FiO2 30 10/02/22 01:20 Oxygen Flow Rate (L/min) 2 Oxygen Delivery Method Room Air Weight: 74.3 kg Body Mass Index (BMI) 25.8 Intake & Output: Intake and Output for Last 24 Hours 09/30/22 10/01/22 10/02/22 23:59 23:59 23:59 Intake Total 270 / 270 570 / 570 120 / 120 Output Total 4350 / 4475 1275 / 1275 150 / 150 Balance -4080 / -4205 -705 / -705 -30 / -30 Lab / Micro Data Attestation: I reviewed the patient's lab results. Result Diagrams: 10/01/22 03:40 10/02/22 06:12 Labs: Laboratory Results - last 24 hr 10/01/22 11:55: POC Glucose 312 H 10/01/22 17:31: POC Glucose 253 H 10/01/22 23:45: POC Glucose 299 H 10/02/22 05:43: POC Glucose 327 H 10/02/22 06:12: Sodium 138, Potassium 3.3 L, Chloride 99, Carbon Dioxide 17.0 L, BUN 56 H, Creatinine 7.20 H, Estim Creat Clear Calc 11.55, Est GFR (MDRD) Af Amer 10 L, Est GFR (MDRD) Non-Af 8 L, BUN/Creatinine Ratio 7.8 L, Glucose 323 H, Calcium 8.7, Phosphorus 6.7 H, Albumin 1.7 L Micro: Microbiology 09/23/22 07:34 Sputum, Tracheal Aspirate Gram Stain - Final 09/23/22 07:34 Sputum, Tracheal Aspirate Respiratory Culture - Final Staphylococcus aureus 09/22/22 07:20 Sputum, Induced/Lukens Gram Stain - Final 09/22/22 07:20 Sputum, Induced/Lukens Respiratory Culture - Final Mixed normal respiratory amparo. No Streptococcus pneumoniae, beta-hemolytic Streptococcus or Staphylococcus aureus isolated. 09/17/22 15:45 Urine, Clean Catch Urine Culture - Final Culture exhibits no growth. 09/16/22 07:05 Nasal Secretion SARS-CoV-2 & FLU Antigen (Rapid) - Final Physical Exam Const alert General Appearance: Negative for in distress HEENT normocephalic and head/scalp atraumatic General Ear: hearing grossly impaired Eyes PERRL, EOMs intact bilaterally and conjunctivae normal Neck supple Neck Narrative: Tunneled hemodialysis catheter noted. General: trachea midline Chest inspection of chest normal Resp Auscultation: diminished lung sounds; Negative for rales, rhonchi or wheezes Cardio regular rate, regular rhythm, S1 normal heart sound, S2 normal heart sound, no murmurs, no rub and no gallops GI normal to inspection, nondistended, normoactive bowel sounds no CVA tenderness Extremity General Extremity: edema Skin no rashes or lesions noted Neuro moves all extremities and no focal motor deficits Psych cooperative Mood & Affect: flat affect Charges/Coding Visit Charges Inpatient E&M: 36382 Subs Hosp L2
[2022-10-02 09:58] LABS: Pathologist Review Reviewed
[2022-10-02] MEDS: Dorzolamide HCL/Timolol 10 ml Bottle 1 DRP OPHTHALMIC ×2 (10:39→21:04)
[2022-10-02] MEDS: Senna/Docusate Sodium 1 Tablet 2 TABLET GT (10:42)
[2022-10-02] MEDS: Aspirin E.C. 81 MG Tablet PO (10:42)
[2022-10-02] MEDS: Carvedilol 12.5 MG Tablet GT ×2 (10:42→21:05)
--- NOTE | 2022-10-02 11:06 | PN.CARD_ITS ---
Documented by User: ESSENCE Palmer 10/02/22 15:26 Subjective Subjective Patient did well overnight. No acute issues were reported. Patient has been moved out of the intensive care unit. Patient has been tolerating room air. Patient tolerated PEG placement yesterday with no complications. Objective Data Vital Signs: Vital Signs Temp Pulse Resp BP Pulse Ox O2 Del Method O2 Flow Rate 97.8 F 97 18 166/78 H 94 Room Air 2 10/02/22 10:32 10/02/22 10:32 10/02/22 10:32 10/02/22 10:32 10/02/22 10:32 10/02/22 10:32 10/01/22 17:25 FiO2 30 10/02/22 01:20 Oxygen Flow Rate (L/min) 2 Oxygen Delivery Method Room Air Weight: 163 lb 12.855 oz Body Mass Index (BMI) 25.8 Intake & Output: Intake and Output for Last 24 Hours 09/30/22 10/01/22 10/02/22 23:59 23:59 23:59 Intake Total 270 / 270 570 / 570 120 / 120 Output Total 4350 / 4475 1275 / 1275 150 / 150 Balance -4080 / -4205 -705 / -705 -30 / -30 Lab / Micro Data Result Diagrams: 10/01/22 03:40 10/02/22 06:12 Labs: Laboratory Results - last 24 hr 10/01/22 03:40: Diff Path Review Reviewed 10/01/22 11:55: POC Glucose 312 H 10/01/22 17:31: POC Glucose 253 H 10/01/22 23:45: POC Glucose 299 H 10/02/22 05:43: POC Glucose 327 H 10/02/22 06:12: Sodium 138, Potassium 3.3 L, Chloride 99, Carbon Dioxide 17.0 L, BUN 56 H, Creatinine 7.20 H, Estim Creat Clear Calc 11.55, Est GFR (MDRD) Af Amer 10 L, Est GFR (MDRD) Non-Af 8 L, BUN/Creatinine Ratio 7.8 L, Glucose 323 H, Calcium 8.7, Phosphorus 6.7 H, Albumin 1.7 L Cardiology Labs/Tests 10/02/22 06:12: Sodium 138, Potassium 3.3 L, Chloride 99, Carbon Dioxide 17.0 L, BUN 56 H, Creatinine 7.20 H, Est GFR (MDRD) Af Amer 10 L, Est GFR (MDRD) Non-Af 8 L, BUN/Creatinine Ratio 7.8 L, Glucose 323 H, Calcium 8.7, Phosphorus 6.7 H Rhythm: SR Physical Exam Const General Appearance: Negative for in distress HEENT normocephalic and head/scalp atraumatic General Ear: hearing grossly impaired bilateral (pt is deaf) Eyes PERRL, EOMs intact bilaterally and conjunctivae normal Neck supple Neck Narrative: Tunneled hemodialysis catheter noted. General: trachea midline Chest inspection of chest normal Resp Auscultation: diminished lung sounds; Negative for rales, rhonchi or wheezes Cardio regular rate, regular rhythm, S1 normal heart sound, S2 normal heart sound, no murmurs, no rub and no gallops GI normal to inspection, nondistended, normoactive bowel sounds no CVA tenderness Extremity General Extremity: edema Skin no rashes or lesions noted Psych Mood & Affect: flat affect Assessment & Plan Assessment/Plan (1) Non-ST elevated myocardial infarction (non-STEMI): PLAN: Patient presents with a non-ST elevation myocardial infarction. With his risk factors of hypertension as well as diabetes mellitus it is likely that he has premature coronary artery disease. His cardiac catheterization (09/28) demonstrated the following: Calcified left main coronary artery. Mild disease in the left main coronary artery. Left anterior descending artery which is diffusely diseased but no high-grade focal stenosis noted. Left circumflex artery which is nondominant with a proximal 90% stenotic eccentric calcified lesion noted. Dominant right coronary artery which is calcified severely diseased with ostial 60% stenosis, proximal 80 to 90% stenosis mid 70% stenosis and diffuse distal disease involving the posterior descending artery and posterior lateral vessel. The left ventricular systolic function is reduced estimated at 40%. Based on the above angiographic findings it is felt that he is a high risk for PCI at this time. He is on a waiting list to a tertiary care center. In the meantime will maximize medication. * Pt just started Coreg with peg tube. Will continue to monitor pressures. Feel that we could restart his Norvasc. * continue with his ASA, Atorvastatin, hydralazine. * will consider starting Plavix. (2) Hypertensive emergency: PLAN: * He will start his coreg today, will titrate as tolerated * Recommend restarting his Norvasc. * Continue with hydralazine * with his renal function unable to use ANIA/ARB (3) Decreased left ventricular systolic function: PLAN: * will continue to maximize medications * Started on Coreg * Can not take ANIA/ARB or Entresto d/t renal function PLAN: Plan I independently evaluated this patient who has significant atherosclerosis involving calcified severely diseased RCA ostial, proximal as well as distal stenosis of 80 to 90% distal stenosis involving the posterior descending artery in a large dominant RCA The EF is moderate with ejection fraction of around 40%. Very high risk patient with severe non-ST elevation NV cardiomyopathy type 1 diabetes mellitus We will continue to monitor and follow-up clinically Once stable plan will be to repair to tertiary care facility for the complex high risk PCI of the RCA Which we will set up by the primary workers compensation adjuster Dr. Hampton. Charges/Coding Visit Charges Inpatient E&M: 40142 Subs Hosp L2 Documented by User: Dr. Antonio Charles MD 10/02/22 17:48 Lab / Micro Data Result Diagrams: 10/01/22 03:40 10/02/22 06:12 Assessment & Plan Assessment/Plan (1) Non-ST elevated myocardial infarction (non-STEMI): (2) Hypertensive emergency: (3) Decreased left ventricular systolic function: PLAN: Plan I independently evaluated this patient who has significant atherosclerosis involving calcified severely diseased RCA ostial, proximal as well as distal stenosis of 80 - 90% distal stenosis involving the posterior descending artery in a large dominant RCA The EF is moderate with ejection fraction of around 40%. Very high risk patient with severe non-ST elevation NV cardiomyopathy type 1 diabetes mellitus We will continue to monitor and follow-up clinically Once stable plan will be to repair to tertiary care facility for the complex high risk PCI of the RCA Which we will set up by the primary workers compensation adjuster Dr. Hampton.
--- NOTE | 2022-10-02 11:10 | CASEMGMT ---
Addendum entered by Kendal Petersen 10/02/22 16:14: TC received from [employer]. She was made aware d/c plan is now LTAC, pending insurance approval. Addendum entered by Kendal Petersen 10/02/22 16:07: Call to [facility] to notify them d/c plan is for LTAC, pending insurance approval. No answer. left to notify them of same. Contact # for ISABEL Lockett CM who will be covering on Wednesday, provided. Addendum entered by Kendal Petersen 10/02/22 16:05: Call received from Pennie from [facility]. She confirms pre-cert was initiated today and she has not heard back yet about approval. She states the insurance co will not be open again until Wednesday. Addendum entered by Kendal Petersen 10/02/22 16:00: TC to Pennie [employer] [facility] to inquire if prior auth has been received. No answer. CHRIS left for her to return call to this RN CM, when available. Original Note: RN JAX NOTE: Updated clinicals sent to [facility] via [facility]. Per Dr Herrera, pt medically ready to d/c to LTACH. He was made aware prior auth is needed. Call placed to Pennie @ [facility] @ [phone]. CHRIS left for her to return call. Kena LANDRY RN CM
[2022-10-02] MEDS: Ondansetron 4 MG/2 ML Vial IV (12:50)
[2022-10-02] MEDS: 0.9% Saline Lock 10 ML Syringe IV ×2 (12:51→21:11)
[2022-10-02] MEDS: NEPRO TUBE FEED 1,000 ML 25 ML GT (12:52)
--- NOTE | 2022-10-02 13:05 | PN.RENAL_ITS ---
Subjective Subjective No new events Objective Data Objective Data Vital Signs: Vital Signs Temp Pulse Resp BP Pulse Ox O2 Del Method O2 Flow Rate 97.8 F 97 18 166/78 H 94 Room Air 2 10/02/22 10:32 10/02/22 10:32 10/02/22 10:32 10/02/22 10:32 10/02/22 10:32 10/02/22 10:32 10/01/22 17:25 FiO2 30 10/02/22 01:20 Oxygen Flow Rate (L/min) 2 Oxygen Delivery Method Room Air Weight: 74.3 kg Body Mass Index (BMI) 25.8 Intake & Output: Intake and Output for Last 24 Hours 09/30/22 10/01/22 10/02/22 23:59 23:59 23:59 Intake Total 270 / 270 570 / 570 230 / 230 Output Total 4350 / 4475 1275 / 1275 150 / 150 Balance -4080 / -4205 -705 / -705 80 / 80 Lab / Micro Data Result Diagrams: 10/01/22 03:40 10/02/22 06:12 Labs: Laboratory Results - last 24 hr 10/01/22 03:40: Diff Path Review Reviewed 10/01/22 17:31: POC Glucose 253 H 10/01/22 23:45: POC Glucose 299 H 10/02/22 05:43: POC Glucose 327 H 10/02/22 06:12: Sodium 138, Potassium 3.3 L, Chloride 99, Carbon Dioxide 17.0 L, BUN 56 H, Creatinine 7.20 H, Estim Creat Clear Calc 11.55, Est GFR (MDRD) Af Amer 10 L, Est GFR (MDRD) Non-Af 8 L, BUN/Creatinine Ratio 7.8 L, Glucose 323 H, Calcium 8.7, Phosphorus 6.7 H, Albumin 1.7 L Micro: Microbiology 09/23/22 07:34 Sputum, Tracheal Aspirate Gram Stain - Final 09/23/22 07:34 Sputum, Tracheal Aspirate Respiratory Culture - Final Staphylococcus aureus 09/22/22 07:20 Sputum, Induced/Lukens Gram Stain - Final 09/22/22 07:20 Sputum, Induced/Lukens Respiratory Culture - Final Mixed normal respiratory amparo. No Streptococcus pneumoniae, beta-hemolytic Streptococcus or Staphylococcus aureus isolated. 09/17/22 15:45 Urine, Clean Catch Urine Culture - Final Culture exhibits no growth. 09/16/22 07:05 Nasal Secretion SARS-CoV-2 & FLU Antigen (Rapid) - Final Physical Exam Narrative alert, awake, no apparent distress S1, S2, RRR Lung sounds diminished. On RA Abdomen round, positive bowel sounds No significant pitting edema tunneled HD catheter dressing C/D/I Assessment & Plan Assessment/Plan (1) TREVOR (acute kidney injury): (2) Metabolic acidosis: (3) Benign essential hypertension: (4) Acute respiratory failure with hypoxia: (5) Type 1 diabetes: PLAN: Plan Acute kidney injury on chronic kidney disease, unspecified stage. Baseline renal function serum creatinine was 1.60 mg/dL in 2020.? Suspect the patient has underlying diabetic kidney disease.? Urine protein creatinine ratio 7.7 g Serologies including ANCA, C3, and C4 are negative.? Immunofixation is negative for monoclonal protein. It is possible that we are seeing progression of diabetic kidney disease towards ESRD. Unfortunately, biopsy could not be done because of patient's respiratory status and anxiety. Patient had cardiac catheterization 09/28: Significant diffuse two-vessel disea se. Echo: EF 35% with stage III diastolic dysfunction and pulmonary hypertension Tolerated dialysis without any issues. Continue dialysis as per schedule. Discussed with hospitalist. Eventually he will need CT surgery evaluation at tertiary facility. There is no beds available in the area at this point. Evaluation will be set up as outpatient by cardiology. Hold off on kidney biopsy for now. Once he is medically stable we may plan for it. Possible discharge to LTAC
[2022-10-02 13:20] LABS: Bedside Glucose 324 mg/dL (74-106)
--- NOTE | 2022-10-02 15:41 | DIALYSIS ---
Addendum entered by Radu Peace 10/02/22 16:35: 10/02/22 1700 Hemodialysis x 3 hours (run time as discussed with Dr. Truong). Net UF 1500 ml. VSS. Ran with prots reversed r/t high AP. Blood returned at end of treatment. Catheter ports closed with heparin. RN report at bedside. Original Note: 10/02/22 1700 Hemodialysis x 3 hours (run time as discussed with Dr. Truong). Net UF 2000 ml. VSS. Ran with prots reversed r/t high AP. Blood returned at end of treatment. Catheter ports closed with heparin. RN report at bedside.
--- NOTE | 2022-10-02 16:20 | PN.HOSP_ITS ---
Subjective Subjective Patient is on baseline. BP elevated. Objective Data Objective Data Vital Signs: Vital Signs Temp Pulse Resp BP Pulse Ox O2 Del Method O2 Flow Rate 97.6 F L 91 18 176/91 H 94 Room Air 2 10/02/22 14:00 10/02/22 15:00 10/02/22 14:00 10/02/22 14:00 10/02/22 14:00 10/02/22 14:00 10/01/22 17:25 FiO2 30 10/02/22 01:20 Oxygen Flow Rate (L/min) 2 Oxygen Delivery Method Room Air Weight: 163 lb 12.855 oz Body Mass Index (BMI) 25.8 Intake & Output: Intake and Output for Last 24 Hours 09/30/22 10/01/22 10/02/22 23:59 23:59 23:59 Intake Total 270 / 270 570 / 570 230 / 230 Output Total 4350 / 4475 1275 / 1275 150 / 150 Balance -4080 / -4205 -705 / -705 80 / 80 Lab / Micro Data Result Diagrams: 10/01/22 03:40 10/02/22 06:12 Labs: Laboratory Results - last 24 hr 10/01/22 03:40: Diff Path Review Reviewed 10/01/22 17:31: POC Glucose 253 H 10/01/22 23:45: POC Glucose 299 H 10/02/22 05:43: POC Glucose 327 H 10/02/22 06:12: Sodium 138, Potassium 3.3 L, Chloride 99, Carbon Dioxide 17.0 L, BUN 56 H, Creatinine 7.20 H, Estim Creat Clear Calc 11.55, Est GFR (MDRD) Af Amer 10 L, Est GFR (MDRD) Non-Af 8 L, BUN/Creatinine Ratio 7.8 L, Glucose 323 H, Calcium 8.7, Phosphorus 6.7 H, Albumin 1.7 L 10/02/22 12:48: POC Glucose 324 H Micro: Microbiology 09/23/22 07:34 Sputum, Tracheal Aspirate Gram Stain - Final 09/23/22 07:34 Sputum, Tracheal Aspirate Respiratory Culture - Final Staphylococcus aureus 09/22/22 07:20 Sputum, Induced/Lukens Gram Stain - Final 09/22/22 07:20 Sputum, Induced/Lukens Respiratory Culture - Final Mixed normal respiratory amparo. No Streptococcus pneumoniae, beta-hemolytic Streptococcus or Staphylococcus aureus isolated. 09/17/22 15:45 Urine, Clean Catch Urine Culture - Final Culture exhibits no growth. 09/16/22 07:05 Nasal Secretion SARS-CoV-2 & FLU Antigen (Rapid) - Final Physical Exam Narrative Physical exam Was extubated on 09/29/2022. Overall patient did well yesterday. Currently on 2 L of oxygen. Had tunneled dialysis catheter on 09/25/2022. General: Awake. Not short of breath. Orientation unobtainable as patient is deaf and does not read lips/understand sign language. HEENT: Atraumatic, PERRLA, EOMI, Normocephalic Oral: BiPAP mask. Neck: Supple, No JVD, Negative Carotid Bruits Lungs: Air entry diminished in bilateral lung bases. No crepts Cardiovascular: Sinus Rhythm, PVC, normal S1, Normal S2, No murmurs Abdomen: PEG tube bowel Sounds , Soft, Non Tender, Non-Distended : Little urine output Lopez catheter,. No renal angle tenderness. No suprapubic tenderness. Extremities: Bilateral edema, Capillary Refill Less than 3 Seconds Skin: No rashes, No breakdown Musculoskeletal: No Tenderness to Palpation of Joints or Extremities Neurological: Cranial nerves II-XII grossly intact, DTR 2+/4. Psych/Mental Status: Flat affect. Assessment & Plan Assessment/Plan (1) Non-ST elevated myocardial infarction (non-STEMI): PLAN: Troponins were 1211. Patient did have some ST depressions in the inferior leads. Echocardiogram on 09/16 shows an EF of 35% with stage III diastolic dysfunction and moderate to severe global hypokinesis of the left ventricle. Pulmonary artery systolic pressure of 40 mmHg. Plan: * Discontinue heparin drip * cardiology following, recommended baby aspirin, amlodipine, metoprolol and as needed hydralazine * Given his kidney function there is no current plans for cardiac catheterization until his kidney function is stabilized/hemodialyzed 09/23: Plan will be cardiac cath when he is well compensated in regards to pulmonary edema. 09/27, plan for cardiac cath on Wednesday. 09/29: Cardiac cath on 2018 reported diffusely diseased two-vessel disease, LV systolic dysfunction. LV gram EF 40%. LAD diffusely diseased with no area of high-grade stenosis. Circumflex eccentric 90% distal occlusion, rest diffusely diseased. RCA proximal 60% followed by focal 80 to 90%, mid segment 70% and distally PDA and MYCHAL diffusely diseased. Recommended tertiary care transfer r [facility] for targeted PCI after patient is stabilized on dialysis and extubation. 09/30:I tried to transfer the patient to [facility] for evaluation of severe diffuse double vessel coronary artery disease for CABG.? Earlier Dr. Hampton has talked to Dr. Linn regarding transfer and he said okay.? edi coordinator said hospital is not accepting any transfer from hospital from order of higher authorities.? This was further discussed with rolfer and we agreed on continuation of medical treatment and outpatient follow-up with cardiac surgeon. Repeat chest x-ray shows pulmonary edema with small bilateral pleural effusion. 10/01: Patient on 2 L of oxygen. Patient is changed to PCU level. Patient blood pressure is high. Heart rate in 100s. Coreg dose increased to 12.5 mg twice daily. Started on hydralazine 25 mg p.o. 3 times daily. Transfer ordered for PCU. (2) Acute renal failure: PLAN: BMP on February 19, 2021 and his creatinine at that time was 1.66. Unclear if this is been just a chronic progression since then or this is been an acute worsening Renal ultrasound showed some medical renal disease Fractional excretion of sodium is 3.56% Plan: Losartan on hold. Discussed with the school bus driver/mechanic. Patient had a scheduled renal biopsy and tunneled hemodialysis catheter which was canceled due to respiratory distress. Patient has NON-anion gap metabolic acidosis, bicarb 15, chloride 107. Creatinine 8.92. 09/22:Chest x-ray portable shows bilateral pulmonary edema and right-sided pleural effusion. Patient had temporary dialysis catheter through right IJ. Dialysis orders started. Discussed with the school bus driver/mechanic. 09/23: Plan for Dialysis Today. Discussed with the Wafer Polishing Lead Worker. Tunneled dialysis catheter posted for Wednesday. 09/24: Plan for dialysis today. Patient is 1775 mL positive fluid. Rest is stays same. 09/25: Plan for tunneled dialysis catheter today 09/26: Dialysis catheter on right upper chest, surgical site does not show richardson sheree or bleeding. Temporary dialysis catheter removed. (3) Hypertensive emergency: PLAN: Improved considered for endorgan damage with acute kidney injury continue amlodipine Losartan held for acute kidney injury Patient will be also started on metoprolol titrate As needed hydralazine 09/22: BP on lower side due to sedative but not in hypotensive range 09/24: BP is normal. 09/27: Blood pressure high. Labetalol IV as needed also ordered. 09/28: Blood pressure normal. 09/30: Blood pressure high. On antihypertensive medication 10/02: Blood pressure elevated. Dose of hydralazine increased to 50 mg 3 times daily. Patient will need LTAC as he is physically debilitated with prolonged hospital distillation, started on dialysis and management of non-STEMI. 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 Blood sugars elevated but patient is not currently in DKA Continue with basal insulin to 25 units daily and his prandial insulin is at 38 but I will change it over 30 but also have a sliding scale insulin. Last A1c from September 14 was 7 Patient did have hypoglycemic down to 19 yesterday. Glargine was discontinued. We will need to reintroduce but hold off on the high-dose prandial insulin the patient was receiving. 09/27: Patient glucose is high in 500s. Lantus dose increased to 15 subcutaneous twice daily along with Humalog insulin 15 subcutaneous every 8 hourly. Hold due to vomiting. (5) Congenital deafness: PLAN: Apparently all the information that the stepson told me about the patient not be able to read or read lips is not accurate. Was able to communicate to the patient by talking to him directly and he expressed understanding. I did have to repeat some things but he did grasp understanding. (6) Acute respiratory failure with hypoxia: PLAN: 09/21: Patient had respiratory distress, tachypnea and hypoxia on 1 L of oxygen. First kidney biopsy was canceled as pertinent could not lay down prone or on sideways and then thrombolysis of catheter for same region. Subsequently patient was transferred to ICU. Field Crop Technical Officer consult requested. Patient initially needs to be tried on NIPPV and if cannot salvage will need intubation. I requested Dr. Arteaga for temporary dialysis but he said school bus driver/mechanic can put it. Chest x-ray stat ordered 10/10 patient was intubated in the morning. On IV propofol and fentanyl drip. 09/24: Sputum endotracheal culture reported mixed normal respiratory amparo. MRSA PCR positive. Patient did not had fever 1 time 100.2 Fahrenheit today. On IV Zosyn. 09/25: T-max 100.7 Fahrenheit last evening. On Zosyn and vancomycin 09/26: Sputum culture shows MSSA. DC vancomycin. Started on IV cefazolin IV Zosyn since 09/23. 09/28: Patient has been on IV Zosyn for 5 days and culture shows MSSA therefore discontinued. Continue IV cefazolin. No fever 4 days 09/30: Patient on BiPAP. Acute hypoxic respiratory failure due to pulmonary edema. 10/02: Patient completed 7 days of IV cefazolin on 10/02 last date. (7) Cardiomyopathy: PLAN: EF of 35% Unclear etiology More definitive cardiac evaluation, including cardiac catheterization on hold pending kidney evaluation Not a candidate for ANIA inhibitors nor angiotensin receptor blockers given acute kidney injury PLAN: Plan VTE prophylaxis: Not indicated as patient will be anticoagulated. Discussed with the pillowcase cleaner. Pre-CERT pending. Charges/Coding Visit Charges Inpatient E&M: 03279 Subs Hosp L2
[2022-10-02] MEDS: Cefazolin 1 GM/50 ML BAG IV (18:06)
[2022-10-02] MEDS: Heparin 10,000 UNITS/10 ML Vial 3800 UNITS IV (18:09)
[2022-10-02 18:35] LABS: Bedside Glucose 167 mg/dL (74-106)
[2022-10-02] MEDS: Latanoprost 0.005% 1 Bottle 1 DRP OPHTHALMIC (21:04)
[2022-10-02] MEDS: Atorvastatin Calcium 40 MG Tablet GT (21:06)
[2022-10-02] MEDS: hydrALAZINE 50 MG Tablet GT (21:10)
--- NOTE | 2022-10-02 22:47 | CPS ---
Pt declined bipap tonight. RN notified
[2022-10-03] VITALS (17 sets, daily range): BP systolic 142–185; BP diastolic 64–87; PULSE 77–91; RESP 16–20; TEMP 36.4–36.8; O2SAT 95–97
[2022-10-03 00:10] LABS: Bedside Glucose 347 mg/dL (74-106)
[2022-10-03] MEDS: Insulin Lispro 100 UNIT/ML INSULN.PEN SC ×5 (00:38→22:57)
[2022-10-03] MEDS: hydrALAZINE 20 MG/ML Vial 10 MG IV (01:30)
[2022-10-03] MEDS: hydrALAZINE 50 MG Tablet GT ×3 (05:36→21:17)
[2022-10-03 07:11] LABS: Bedside Glucose 381 mg/dL (74-106)
[2022-10-03] MEDS: Dorzolamide HCL/Timolol 10 ml Bottle 1 DRP OPHTHALMIC ×2 (10:16→21:15)
[2022-10-03] MEDS: Aspirin E.C. 81 MG Tablet PO (10:17)
[2022-10-03] MEDS: Senna/Docusate Sodium 1 Tablet 2 TABLET GT ×2 (10:17→21:17)
[2022-10-03] MEDS: Carvedilol 12.5 MG Tablet GT ×2 (10:17→21:17)
--- NOTE | 2022-10-03 10:22 | PCM.PN.REN ---
Subjective Subjective Follow-up on acute kidney injury requiring dialysis. Status post hemodialysis yesterday. Using left-sided tunneled hemodialysis catheter. Offers no complaints today, 8, has Lopez catheter in with fair amount of clear urine Objective Data Objective Data Vital Signs: Vital Signs Temp Pulse Resp BP Pulse Ox O2 Del Method O2 Flow Rate 97.6 F L 88 18 147/64 H 95 Room Air 2 10/03/22 10:10 10/03/22 10:10 10/03/22 10:10 10/03/22 10:10 10/03/22 10:10 10/03/22 10:10 10/01/22 17:25 FiO2 30 10/02/22 01:20 Oxygen Flow Rate (L/min) 2 Oxygen Delivery Method Room Air Weight: 75.3 kg Body Mass Index (BMI) 25.8 Intake & Output: Intake and Output for Last 24 Hours 10/01/22 10/02/22 10/03/22 23:59 23:59 23:59 Intake Total 570 / 570 975 / 975 649.58 / 649.58 Output Total 1275 / 1275 450 / 450 200 / 200 Balance -705 / -705 525 / 525 449.58 / 449.58 Lab / Micro Data Result Diagrams: 10/01/22 03:40 10/02/22 06:12 Labs: Laboratory Results - last 24 hr 10/02/22 12:48: POC Glucose 324 H 10/02/22 18:04: POC Glucose 167 H 10/02/22 23:49: POC Glucose 347 H 10/03/22 06:48: POC Glucose 381 H Micro: Microbiology 09/23/22 07:34 Sputum, Tracheal Aspirate Gram Stain - Final 09/23/22 07:34 Sputum, Tracheal Aspirate Respiratory Culture - Final Staphylococcus aureus 09/22/22 07:20 Sputum, Induced/Lukens Gram Stain - Final 09/22/22 07:20 Sputum, Induced/Lukens Respiratory Culture - Final Mixed normal respiratory amparo. No Streptococcus pneumoniae, beta-hemolytic Streptococcus or Staphylococcus aureus isolated. 09/17/22 15:45 Urine, Clean Catch Urine Culture - Final Culture exhibits no growth. 09/16/22 07:05 Nasal Secretion SARS-CoV-2 & FLU Antigen (Rapid) - Final Physical Exam Const alert, no apparent distress, average body habitus and healthy appearing Constitutional Narrative: Patient is deaf General Appearance: cooperative and comfortable Orientation / Consciousness: awake Exam Limitations: no limitations Nutritional Appearance: underweight HEENT normocephalic Mouth: oral and palatal mucosa normal Eyes PERRL General Eye: normal appearance of both eyes Lymph Lymphatic: no lymphadenopathy noted Chest inspection of chest normal Resp normal respiratory effort, normal air movement, no retractions, no use of accessory muscles and clear to auscultation bilaterally Cardio regular rate, regular rhythm, S1 normal heart sound, S2 normal heart sound and no murmurs GI normal to inspection, nondistended, normoactive bowel sounds and no masses Bladder / Kidney Exam: catheter in place and bladder normal to palpation Extremity normal to inspection and no pedal edema Assessment & Plan Assessment/Plan (1) TREVOR (acute kidney injury): PLAN: So far there is no recovery of her kidney function, creatinine is over 7. Still making urine. Scheduled for dialysis today, will use minimal ultrafiltration.
[2022-10-03 11:55] LABS: Bedside Glucose 365 mg/dL (74-106)
--- NOTE | 2022-10-03 16:09 | PN.HOSP_ITS ---
Subjective Subjective Communicated through written means, reports he wants to go home and that he has not been able to eat food for a while Objective Data Objective Data Vital Signs: Vital Signs Temp Pulse Resp BP Pulse Ox O2 Del Method O2 Flow Rate 98.1 F 83 18 142/70 H 95 Room Air 2 10/03/22 14:50 10/03/22 15:00 10/03/22 14:50 10/03/22 14:50 10/03/22 14:50 10/03/22 14:52 10/01/22 17:25 FiO2 30 10/02/22 01:20 Oxygen Flow Rate (L/min) 2 Oxygen Delivery Method Room Air Weight: 75.3 kg Body Mass Index (BMI) 25.8 Intake & Output: Intake and Output for Last 24 Hours 10/01/22 10/02/22 10/03/22 23:59 23:59 23:59 Intake Total 570 / 570 975 / 975 1480.08 / 1480.08 Output Total 1275 / 1275 450 / 450 325 / 325 Balance -705 / -705 525 / 525 1155.08 / 1155.08 Lab / Micro Data Result Diagrams: 10/01/22 03:40 10/02/22 06:12 Labs: Laboratory Results - last 24 hr 10/02/22 18:04: POC Glucose 167 H 10/02/22 23:49: POC Glucose 347 H 10/03/22 06:48: POC Glucose 381 H 10/03/22 11:30: POC Glucose 365 H Micro: Microbiology 09/23/22 07:34 Sputum, Tracheal Aspirate Gram Stain - Final 09/23/22 07:34 Sputum, Tracheal Aspirate Respiratory Culture - Final Staphylococcus aureus 09/22/22 07:20 Sputum, Induced/Lukens Gram Stain - Final 09/22/22 07:20 Sputum, Induced/Lukens Respiratory Culture - Final Mixed normal respiratory amparo. No Streptococcus pneumoniae, beta-hemolytic Streptococcus or Staphylococcus aureus isolated. 09/17/22 15:45 Urine, Clean Catch Urine Culture - Final Culture exhibits no growth. 09/16/22 07:05 Nasal Secretion SARS-CoV-2 & FLU Antigen (Rapid) - Final Physical Exam Const alert and no apparent distress Constitutional Narrative: Oriented HEENT normocephalic and head/scalp atraumatic Eyes Eyes Narrative: EOM grossly intact, anicteric Neck supple Resp normal respiratory effort and clear to auscultation bilaterally Cardio regular rate and regular rhythm GI soft to palpation, non-tender and non-distended Extremity Extremity Narrative: No edema appreciated Neuro moves all extremities Neuro Narrative: No overt focal deficits appreciated Psych Psych Narrative: Cooperative Assessment & Plan Assessment/Plan (1) Non-ST elevated myocardial infarction (non-STEMI): (2) Acute renal failure: (3) Hypertensive emergency: (4) 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 It was recommended tertiary care transfer referral for targeted PCI after he is stabilized. 09/30 attempted to transfer but they were not excepting transfers at this time. Previous hospitalist discussed with cardiology and it was agreed that he could continue medical management with outpatient follow-up with cardiac surgeon. 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 with long-term current use of insulin Currently only on sliding scale insulin and having worsening glucoses but they a re widely variable and not consistent which makes titration difficult Will start a basal insulin conservatively at 5 and trend, will likely need further titration but given extreme highs followed by glucose in the 160s concern for hypoglycemia #Congenital deafness Reads lips and writes on paper #Acute hypoxic respiratory failure resolved Was intubated in the ICU and has since been extubated, doing well in ICU signed off #DVT ppx: No longer on systemic anticoagulation so started heparin subcu Susu Goode MD Charges/Coding Visit Charges Inpatient E&M: 12409 Subs Hosp L2
[2022-10-03 17:01] LABS: Absolute Lymphocyte Count 0.96 X10^3/uL (0.83-4.51); Absolute Neutrophil Count 9.5 X10^3/uL (2.0-7.7); Basophil# 0.15 X10^3/uL; Basophil% 1.2 % (0-1); Eosinophil# 0.58 X10^3/uL; Eosinophils% 4.6 % (0-5); Hematocrit 29.8 % (40-54); Hemoglobin 10.1 g/dL (13.0-16.5); Lymphocyte # 0.96 X10^3/ul (0.83-4.51); Lymphocyte % 7.6 % (19-41); Mean Corp Hgb Conc 33.9 g/dL (32-36); Mean Corpuscular Hgb 30.7 pg (27.0-32.0); Mean Corpuscular Volume 90.6 fL (80-94); Mean Platelet Vol. 10.3 fl (6.2-12.0); Monocyte% 11.8 % (0-10); NRBC Flagged by Analyzer 0 % (0-5); Neutrophil # 9.45 X10^3/uL (2.7-7.7); Neutrophil % 74.5 % (47-70); Platelet Count 475 K/mm3 (150-450); RBC Distribution Width CV 12.5 % (11.6-14.6); RBC Distribution Width SD 41.1 fl (35.1-43.9); Red Blood Count 3.29 M/mm3 (4.6-6.2); White Blood Count 12.7 K/mm3 (4.4-11.0)
[2022-10-03] MEDS: NEPRO TUBE FEED 1,000 ML 45 ML GT (17:03)
[2022-10-03 17:10] LABS: Anion Gap 10 (5-15); BUN 48 mg/dL (7-18); BUN/Creat Ratio 8.4 RATIO (10-20); Calcium,Total 8.5 mg/dL (8.5-10.1); Chloride 97 mmol/L (98-107); Creatinine, Serum 5.69 mg/dL (0.70-1.30); EST Glomerular Filtration Rate 11 mL/min (>60); Est Glom Filt Rate - Afr Amer 13 mL/min (>60); Estimated Creatinine Clearance 14.61 ml/min; Glucose 377 mg/dL (74-106); Potassium 3.6 mmol/L (3.5-5.1); Sodium Level 133 mmol/L (136-145)
[2022-10-03 17:40] LABS: Bedside Glucose 374 mg/dL (74-106)
[2022-10-03] MEDS: Heparin Injection (Vial) 5,000 UNIT/ML VIAL 5000 UNIT SC (21:16)
[2022-10-03] MEDS: Latanoprost 0.005% 1 Bottle 1 DRP OPHTHALMIC (21:16)
[2022-10-03] MEDS: Atorvastatin Calcium 40 MG Tablet GT (21:17)
[2022-10-03] MEDS: 0.9% Saline Lock 10 ML Syringe IV (21:20)
[2022-10-03] MEDS: Insulin Glargine-YFGN 100 UNIT/ML Pen SC (22:56)
[2022-10-03 23:20] LABS: Bedside Glucose 424 mg/dL (74-106)
--- NOTE | 2022-10-03 23:30 | CPS ---
Talked to pt about wearing bipap for the night, pt refused.
[2022-10-04] VITALS (18 sets, daily range): BP systolic 150–168; BP diastolic 71–83; PULSE 82–99; RESP 18–20; TEMP 36.4–36.9; O2SAT 92–98
[2022-10-04] MEDS: hydrALAZINE 50 MG Tablet GT ×3 (05:17→23:34)
[2022-10-04] MEDS: Heparin Injection (Vial) 5,000 UNIT/ML VIAL 5000 UNIT SC ×3 (05:17→23:35)
[2022-10-04] MEDS: Insulin Lispro 100 UNIT/ML INSULN.PEN 20 UNIT SC (06:34)
[2022-10-04 07:05] LABS: Bedside Glucose 465 mg/dL (74-106)
[2022-10-04 07:06] LABS: Absolute Lymphocyte Count 0.98 X10^3/uL (0.83-4.51); Basophil# 0.12 X10^3/uL; Eosinophil# 0.59 X10^3/uL; Eosinophils% 4.9 % (0-5); Hematocrit 28.9 % (40-54); Hemoglobin 9.2 g/dL (13.0-16.5); Lymphocyte # 0.98 X10^3/ul (0.83-4.51); Lymphocyte % 8.2 % (19-41); Mean Corp Hgb Conc 31.8 g/dL (32-36); Mean Corpuscular Hgb 29.4 pg (27.0-32.0); Mean Corpuscular Volume 92.3 fL (80-94); Monocyte# 1.26 X10^3/uL; Monocyte% 10.5 % (0-10); NRBC Flagged by Analyzer 0 % (0-5); Neutrophil # 8.96 X10^3/uL (2.7-7.7); Neutrophil % 75.1 % (47-70); Platelet Count 430 K/mm3 (150-450); RBC Distribution Width CV 12.5 % (11.6-14.6); RBC Distribution Width SD 41.6 fl (35.1-43.9); Red Blood Count 3.13 M/mm3 (4.6-6.2)
[2022-10-04 08:02] LABS: ALB/GLOB Ratio 0.4 RATIO (0.9-2.4); AST(SGOT) 18 U/L (15-37); Alanine Aminotransfer ALT/SGPT < 6 U/L (16-61); Albumin, Serum 1.9 g/dL (3.2-5.0); Alkaline Phosphatase 91 U/L (45-117); Anion Gap 13 (5-15); BUN 61 mg/dL (7-18); BUN/Creat Ratio 9.3 RATIO (10-20); Calcium,Total 8.3 mg/dL (8.5-10.1); Chloride 96 mmol/L (98-107); Creatinine, Serum 6.59 mg/dL (0.70-1.30); EST Glomerular Filtration Rate 9 mL/min (>60); Est Glom Filt Rate - Afr Amer 11 mL/min (>60); Estimated Creatinine Clearance 12.62 ml/min; Globulin 4.4 g/dL (2.2-4.2); Glucose 513 mg/dL (74-106); Magnesium 2.4 mg/dL (1.6-2.6); Potassium 3.6 mmol/L (3.5-5.1); Protein, Total 6.3 g/dL (6.4-8.2); Sodium Level 131 mmol/L (136-145)
[2022-10-04] MEDS: Menthol/Lanolin/Calamine/Znox 113 GM Tube 1 APPLIC TOPICAL ×2 (09:55→23:35)
[2022-10-04] MEDS: Dorzolamide HCL/Timolol 10 ml Bottle 1 DRP OPHTHALMIC ×2 (09:57→23:38)
[2022-10-04] MEDS: Carvedilol 12.5 MG Tablet GT (09:58)
[2022-10-04] MEDS: Aspirin E.C. 81 MG Tablet PO (09:58)
[2022-10-04] MEDS: Senna/Docusate Sodium 1 Tablet 2 TABLET GT ×2 (09:58→23:34)
[2022-10-04 10:41] LABS: Bedside Glucose 353 mg/dL (74-106)
[2022-10-04] MEDS: Insulin Lispro 100 UNIT/ML INSULN.PEN SC ×3 (11:34→17:55)
[2022-10-04 12:00] LABS: Bedside Glucose 410 mg/dL (74-106)
--- NOTE | 2022-10-04 14:24 | PCM.PN.HOSP ---
Subjective Subjective Primary communication via writing today. Did have speech see him and he had a choking episode and an episode of emesis after that with what appeared to be some tube feed per patient's nurse. Has also had elevated blood sugars despite being started on insulin. Did not endorse any other complaints at this time. Objective Data Objective Data Vital Signs: Vital Signs Temp Pulse Resp BP Pulse Ox O2 Del Method O2 Flow Rate 97.7 F L 82 18 150/71 H 94 Room Air 2 10/04/22 09:55 10/04/22 11:00 10/04/22 09:55 10/04/22 09:55 10/04/22 09:55 10/04/22 09:55 10/01/22 17:25 FiO2 30 10/02/22 01:20 Oxygen Flow Rate (L/min) 2 Oxygen Delivery Method Room Air Weight: 76.8 kg Body Mass Index (BMI) 25.8 Intake & Output: Intake and Output for Last 24 Hours 10/02/22 10/03/22 10/04/22 23:59 23:59 23:59 Intake Total 975 / 975 2197.58 / 2197.58 350 / 350 Output Total 450 / 450 425 / 425 575 / 575 Balance 525 / 525 1772.58 / 1772.58 -225 / -225 Lab / Micro Data Result Diagrams: 10/04/22 06:30 10/04/22 06:30 Labs: Laboratory Results - last 24 hr 10/03/22 16:40: WBC 12.7 H, RBC 3.29 L, Hgb 10.1 L, Hct 29.8 L, MCV 90.6, MCH 30.7, MCHC 33.9 D, RDW Std Deviation 41.1, RDW Coeff of Jenifer 12.5, Plt Count 475 H, MPV 10.3, Immature Gran % (Auto) 0.300, Neut % (Auto) 74.5 H, Lymph % (Auto) 7.6 L, [place] % (Auto) 11.8 H, Eos % (Auto) 4.6, Baso % (Auto) 1.2 H, Absolute Neuts (auto) 9.5 H, Absolute Lymphs (auto) 0.96, Nucleated RBC % 0 10/03/22 16:40: Sodium 133 L, Potassium 3.6, Chloride 97 L, Carbon Dioxide 26.0, Anion Gap 10, BUN 48 H, Creatinine 5.69 H, Estim Creat Clear Calc 14.61, Est GFR (MDRD) Af Amer 13 L, Est GFR (MDRD) Non-Af 11 L, BUN/Creatinine Ratio 8.4 L, Glucose 377 H, Calcium 8.5 10/03/22 17:00: POC Glucose 374 H 10/03/22 22:54: POC Glucose 424 H 10/04/22 06:24: POC Glucose 465 H* 10/04/22 06:30: WBC 12.0 H, RBC 3.13 L, Hgb 9.2 L, Hct 28.9 L, MCV 92.3, MCH 29.4, MCHC 31.8 L D, RDW Std Deviation 41.6, RDW Coeff of Jenifer 12.5, Plt Count 430, MPV 11.0, Immature Gran % (Auto) 0.300, Neut % (Auto) 75.1 H, Lymph % (Auto) 8.2 L, Assumption % (Auto) 10.5 H, Eos % (Auto) 4.9, Baso % (Auto) 1.0, Absolute Neuts (auto) 9.0 H, Absolute Lymphs (auto) 0.98, Nucleated RBC % 0 10/04/22 06:30: Sodium 131 L, Potassium 3.6, Chloride 96 L, Carbon Dioxide 22.0, Anion Gap 13, BUN 61 H, Creatinine 6.59 H, Estim Creat Clear Calc 12.62, Est GFR (MDRD) Af Amer 11 L, Est GFR (MDRD) Non-Af 9 L, BUN/Creatinine Ratio 9.3 L, Glucose 513 H*, Calcium 8.3 L, Magnesium 2.4, Total Bilirubin 0.30, AST 18, ALT < 6 L, Alkaline Phosphatase 91, Total Protein 6.3 L, Albumin 1.9 L, Globulin 4.4 H, Albumin/Globulin Ratio 0.4 L 10/04/22 10:22: POC Glucose 353 H 10/04/22 11:32: POC Glucose 410 H Micro: Microbiology 09/23/22 07:34 Sputum, Tracheal Aspirate Gram Stain - Final 09/23/22 07:34 Sputum, Tracheal Aspirate Respiratory Culture - Final Staphylococcus aureus 09/22/22 07:20 Sputum, Induced/Lukens Gram Stain - Final 09/22/22 07:20 Sputum, Induced/Lukens Respiratory Culture - Final Mixed normal respiratory amparo. No Streptococcus pneumoniae, beta-hemolytic Streptococcus or Staphylococcus aureus isolated. 09/17/22 15:45 Urine, Clean Catch Urine Culture - Final Culture exhibits no growth. 09/16/22 07:05 Nasal Secretion SARS-CoV-2 & FLU Antigen (Rapid) - Final Physical Exam Const alert and no apparent distress Constitutional Narrative: Oriented HEENT normocephalic and head/scalp atraumatic Eyes Eyes Narrative: EOM grossly intact, anicteric Neck supple Resp normal respiratory effort and clear to auscultation bilaterally Cardio regular rate and regular rhythm GI soft to palpation, non-tender and non-distended Extremity Extremity Narrative: No edema appreciated Neuro moves all extremities Neuro Narrative: No overt focal deficits appreciated Psych Psych Narrative: Cooperative Assessment & Plan Assessment/Plan (1) Non-ST elevated myocardial infarction (non-STEMI): (2) Acute renal failure: (3) Hypertensive emergency: (4) 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, with long-term current use of insulin: (5) Congenital deafness: (6) Acute respiratory failure with hypoxia: (7) Cardiomyopathy: PLAN: Plan #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 with long-term current use of insulin Currently only on sliding scale insulin and having worsening glucoses but they are widely variable and not consistent which makes titration difficult Will start a basal insulin conservatively at 5 and trend, will likely need further titration but given extreme highs followed by glucose in the 160s concern for hypoglycemia 10/04: Glucoses have escalated, will increase long-acting and start Premeal in addition to sliding scale, will check BMP at this afternoon to assure no gap opens with his persistent elevation #TREVOR requiring dialysis Nephrology following Has left-sided tunneled hemodialysis catheter, also has PEG tube Still making urine but kidney function is not recovering yet Continue dialysis per nephrology recommendations #NSTEMI Had cardiac cath this admission which showed diffusely diseased 2 vessels with LV systolic dysfunction with an LV gram EF of 40%. It was recommended tertiary care transfer referral for targeted PCI after he is stabilized. 09/30 attempted to transfer but they were not excepting transfers at this time. Previous hospitalist discussed with cardiology and it was agreed that he could continue medical management with outpatient follow-up with cardiac surgeon. Coreg, aspirin, atorvastatin Cardiology following #Cardiomyopathy Unclear etiology Did have echo here on 09/16 with an EF of 35% and stage III diastolic dysfunction and moderate to severe global hypokinesis of the left ventricle On Coreg Cannot tolerate ANIA/ARB due to kidney function #Hypertension Continue to adjust antihypertensives, Coreg increased to 10/04 #Congenital deafness Reads lips and writes on paper #Acute hypoxic respiratory failure resolved Was intubated in the ICU and has since been extubated, doing well in ICU signed off #DVT ppx: No longer on systemic anticoagulation so started heparin subcu Susu Goode MD Charges/Coding Visit Charges Inpatient E&M: 76208 Subs Hosp L2
[2022-10-04] MEDS: NEPRO TUBE FEED 1,000 ML 45 ML GT (15:03)
[2022-10-04 16:29] LABS: Anion Gap 11 (5-15); BUN 69 mg/dL (7-18); BUN/Creat Ratio 9.8 RATIO (10-20); Calcium,Total 8.6 mg/dL (8.5-10.1); Chloride 97 mmol/L (98-107); Creatinine, Serum 7.03 mg/dL (0.70-1.30); EST Glomerular Filtration Rate 9 mL/min (>60); Est Glom Filt Rate - Afr Amer 10 mL/min (>60); Estimated Creatinine Clearance 11.83 ml/min; Glucose 341 mg/dL (74-106); Potassium 3.4 mmol/L (3.5-5.1); Sodium Level 133 mmol/L (136-145)
--- NOTE | 2022-10-04 17:15 | PCM.PN.CARD ---
Subjective Subjective No symptoms reported Objective Data Vital Signs: Vital Signs Temp Pulse Resp BP Pulse Ox O2 Del Method O2 Flow Rate 97.7 F L 87 18 157/83 H 98 Room Air 2 10/04/22 14:50 10/04/22 15:00 10/04/22 14:50 10/04/22 14:54 10/04/22 14:50 10/04/22 14:50 10/01/22 17:25 FiO2 30 10/02/22 01:20 Oxygen Flow Rate (L/min) 2 Oxygen Delivery Method Room Air Weight: 169 lb 5.04 oz Body Mass Index (BMI) 25.8 Intake & Output: Intake and Output for Last 24 Hours 10/02/22 10/03/22 10/04/22 23:59 23:59 23:59 Intake Total 975 / 975 2197.58 / 2197.58 1580 / 1580 Output Total 450 / 450 425 / 425 575 / 575 Balance 525 / 525 1772.58 / 1772.58 1005 / 1005 Lab / Micro Data Result Diagrams: 10/04/22 06:30 10/04/22 15:45 Labs: Laboratory Results - last 24 hr 10/03/22 16:40: WBC 12.7 H, RBC 3.29 L, Hgb 10.1 L, Hct 29.8 L, MCV 90.6, MCH 30.7, MCHC 33.9 D, RDW Std Deviation 41.1, RDW Coeff of Jenifer 12.5, Plt Count 475 H, MPV 10.3, Immature Gran % (Auto) 0.300, Neut % (Auto) 74.5 H, Lymph % (Auto) 7.6 L, [place] % (Auto) 11.8 H, Eos % (Auto) 4.6, Baso % (Auto) 1.2 H, Absolute Neuts (auto) 9.5 H, Absolute Lymphs (auto) 0.96, Nucleated RBC % 0 10/03/22 17:00: POC Glucose 374 H 10/03/22 22:54: POC Glucose 424 H 10/04/22 06:24: POC Glucose 465 H* 10/04/22 06:30: WBC 12.0 H, RBC 3.13 L, Hgb 9.2 L, Hct 28.9 L, MCV 92.3, MCH 29.4, MCHC 31.8 L D, RDW Std Deviation 41.6, RDW Coeff of Jenifer 12.5, Plt Count 430, MPV 11.0, Immature Gran % (Auto) 0.300, Neut % (Auto) 75.1 H, Lymph % (Auto) 8.2 L, [place] % (Auto) 10.5 H, Eos % (Auto) 4.9, Baso % (Auto) 1.0, Absolute Neuts (auto) 9.0 H, Absolute Lymphs (auto) 0.98, Nucleated RBC % 0 10/04/22 06:30: Sodium 131 L, Potassium 3.6, Chloride 96 L, Carbon Dioxide 22.0, Anion Gap 13, BUN 61 H, Creatinine 6.59 H, Estim Creat Clear Calc 12.62, Est GFR (MDRD) Af Amer 11 L, Est GFR (MDRD) Non-Af 9 L, BUN/Creatinine Ratio 9.3 L, Glucose 513 H*, Calcium 8.3 L, Magnesium 2.4, Total Bilirubin 0.30, AST 18, ALT < 6 L, Alkaline Phosphatase 91, Total Protein 6.3 L, Albumin 1.9 L, Globulin 4.4 H, Albumin/Globulin Ratio 0.4 L 10/04/22 10:22: POC Glucose 353 H 10/04/22 11:32: POC Glucose 410 H 10/04/22 15:45: Sodium 133 L, Potassium 3.4 L, Chloride 97 L, Carbon Dioxide 25.0, Anion Gap 11, BUN 69 H, Creatinine 7.03 H, Estim Creat Clear Calc 11.83, Est GFR (MDRD) Af Amer 10 L, Est GFR (MDRD) Non-Af 9 L, BUN/Creatinine Ratio 9.8 L, Glucose 341 H, Calcium 8.6 Cardiology Labs/Tests 10/03/22 16:40: WBC 12.7 H, RBC 3.29 L, Hgb 10.1 L, Hct 29.8 L, MCV 90.6, MCH 30.7, MCHC 33.9 D, Plt Count 475 H, MPV 10.3, Immature Gran % (Auto) 0.300, Neut % (Auto) 74.5 H, Lymph % (Auto) 7.6 L, [place] % (Auto) 11.8 H, Eos % (Auto) 4.6, Baso % (Auto) 1.2 H, Absolute Neuts (auto) 9.5 H, Nucleated RBC % 0 10/04/22 06:30: WBC 12.0 H, RBC 3.13 L, Hgb 9.2 L, Hct 28.9 L, MCV 92.3, MCH 29.4, MCHC 31.8 L D, Plt Count 430, MPV 11.0, Immature Gran % (Auto) 0.300, Neut % (Auto) 75.1 H, Lymph % (Auto) 8.2 L, [place] % (Auto) 10.5 H, Eos % (Auto) 4.9, Baso % (Auto) 1.0, Absolute Neuts (auto) 9.0 H, Nucleated RBC % 0 10/04/22 06:30: Sodium 131 L, Potassium 3.6, Chloride 96 L, Carbon Dioxide 22.0, Anion Gap 13, BUN 61 H, Creatinine 6.59 H, Est GFR (MDRD) Af Amer 11 L, Est GFR (MDRD) Non-Af 9 L, BUN/Creatinine Ratio 9.3 L, Glucose 513 H*, Calcium 8.3 L, Magnesium 2.4, Total Bilirubin 0.30 10/04/22 15:45: Sodium 133 L, Potassium 3.4 L, Chloride 97 L, Carbon Dioxide 25.0, Anion Gap 11, BUN 69 H, Creatinine 7.03 H, Est GFR (MDRD) Af Amer 10 L, Est GFR (MDRD) Non-Af 9 L, BUN/Creatinine Ratio 9.8 L, Glucose 341 H, Calcium 8.6 Rhythm: EKG: ECHO: Stress Test: Cardiac Cath: PCI: CT Surgery: Holter monitor: EPS: PPM: CXR: Chest CT Scan: Physical Exam Cardio Cardio Narrative: Normal cardiac rhythm Cardiac exam essentially normal Chest clear to auscultation bilateral Assessment & Plan Assessment/Plan (1) Non-ST elevated myocardial infarction (non-STEMI): (2) Congenital deafness: (3) Type 1 diabetes: (4) Benign essential hypertension: (5) Cardiomyopathy: PLAN: Plan Patient with an ST elevation AK, acute renal failure and hypertensive emergency congenital deafness, type 1 diabetes mellitus Underwent cardiac evaluation by echo which showed ejection fraction in the range of around 35% Stage III diastolic dysfunction and moderate to severe global LV hypokinesia. Subsequent cardiac catheterization showed severe heavily calcified dominant RCA with significant atherosclerosis. Cardiac care plan recommendations; 1. We will continue conservative treatment. For non-ST elevation AK and cardiomyopathy Will continue beta-gwyn Coreg, hydralazine for better control of hypertension, low-dose aspirin, statin with atorvastatin. Patient not a candidate for Entresto or ANIA inhibitor due to acute renal failure. Patient has a left-sided hemodialysis catheter and has PEG tube in place 2. Cardiac care plan will be to follow-up with the primary meter repair shop supervisor Dr. Hampton And to discuss, plan of high risk RCA PCI which can be set up as an outpatient.
[2022-10-04 18:15] LABS: Bedside Glucose 385 mg/dL (74-106)
[2022-10-04] MEDS: Carvedilol 25 MG Tablet GT (23:34)
[2022-10-04] MEDS: Atorvastatin Calcium 40 MG Tablet GT (23:35)
[2022-10-04] MEDS: Latanoprost 0.005% 1 Bottle 1 DRP OPHTHALMIC (23:38)
[2022-10-04] MEDS: 0.9% Saline Lock 10 ML Syringe IV (23:59)
[2022-10-05] VITALS (31 sets, daily range): BP systolic 98–166; BP diastolic 68–98; PULSE 77–96; RESP 8–28; TEMP 36.3–37.4; O2SAT 94–100
[2022-10-05] MEDS: Insulin Glargine-YFGN 100 UNIT/ML Pen 15 UNIT SC (00:01)
[2022-10-05] MEDS: Insulin Lispro 100 UNIT/ML INSULN.PEN 20 UNIT SC ×2 (00:05→01:36)
[2022-10-05 01:00] LABS: Bedside Glucose > 500 mg/dL (74-106)
[2022-10-05 02:11] LABS: Bedside Glucose > 500 mg/dL (74-106)
--- NOTE | 2022-10-05 02:15 | CPS ---
Pt doesn't wear bipap.. declined use of tonight.
[2022-10-05 02:56] LABS: Bedside Glucose > 500 mg/dL (74-106)
--- NOTE | 2022-10-05 02:58 | PN.HOSP_ITS ---
Hospitalist Note Patient with ongoing hyperglycemia despite high dose SC short acting regimen. Will repeat BMP early, obtain acetone and Osm level. If evidence of HHS or DKA may require placement on insulin drip. Patient from discussion with Dr. Goode has been having late am hypoglycemia and had labile BS therefore making long- acting components or scheduled short acting difficult.
[2022-10-05 03:23] LABS: Anion Gap 19 (5-15); BUN 80 mg/dL (7-18); BUN/Creat Ratio 10.5 RATIO (10-20); Calcium,Total 8.1 mg/dL (8.5-10.1); Chloride 94 mmol/L (98-107); Creatinine, Serum 7.59 mg/dL (0.70-1.30); EST Glomerular Filtration Rate 8 mL/min (>60); Est Glom Filt Rate - Afr Amer 10 mL/min (>60); Estimated Creatinine Clearance 10.95 ml/min; Glucose 780 mg/dL (74-106); Potassium 3.7 mmol/L (3.5-5.1); Sodium Level 130 mmol/L (136-145)
[2022-10-05 03:49] LABS: Magnesium 2.3 mg/dL (1.6-2.6); Phosphorus 3.1 mg/dL (2.5-4.9)
--- NOTE | 2022-10-05 04:10 | NURSING ---
report given to ICU, RN.
[2022-10-05 05:15] LABS: Absolute Lymphocyte Count 0.88 X10^3/uL (0.83-4.51); Absolute Neutrophil Count 9.7 X10^3/uL (2.0-7.7); Basophil% 0.8 % (0-1); Eosinophil# 0.27 X10^3/uL; Eosinophils% 2.2 % (0-5); Hematocrit 27.1 % (40-54); Hemoglobin 8.8 g/dL (13.0-16.5); Lymphocyte # 0.88 X10^3/ul (0.83-4.51); Lymphocyte % 7.2 % (19-41); Mean Corp Hgb Conc 32.5 g/dL (32-36); Mean Corpuscular Hgb 29.5 pg (27.0-32.0); Mean Corpuscular Volume 90.9 fL (80-94); Mean Platelet Vol. 10.8 fl (6.2-12.0); Monocyte# 1.27 X10^3/uL; Monocyte% 10.4 % (0-10); NRBC Flagged by Analyzer 0 % (0-5); Neutrophil # 9.71 X10^3/uL (2.7-7.7); Neutrophil % 79.1 % (47-70); Platelet Count 418 K/mm3 (150-450); RBC Distribution Width CV 12.4 % (11.6-14.6); RBC Distribution Width SD 40.6 fl (35.1-43.9); Red Blood Count 2.98 M/mm3 (4.6-6.2); White Blood Count 12.3 K/mm3 (4.4-11.0)
[2022-10-05 05:25] LABS: Osmolality, Serum 335 mOsm/KG (275-295)
[2022-10-05] MEDS: hydrALAZINE 50 MG Tablet GT ×3 (05:26→21:13)
[2022-10-05] MEDS: Heparin Injection (Vial) 5,000 UNIT/ML VIAL 5000 UNIT SC ×3 (05:26→21:14)
[2022-10-05] MEDS: 0.9% Normal Saline 1,000 ML 100 ML IV (05:36)
[2022-10-05 07:00] LABS: Anion Gap 14 (5-15); BUN 82 mg/dL (7-18); BUN/Creat Ratio 10.4 RATIO (10-20); Calcium,Total 8.3 mg/dL (8.5-10.1); Chloride 98 mmol/L (98-107); Creatinine, Serum 7.86 mg/dL (0.70-1.30); EST Glomerular Filtration Rate 8 mL/min (>60); Est Glom Filt Rate - Afr Amer 9 mL/min (>60); Estimated Creatinine Clearance 10.49 ml/min; Glucose 458 mg/dL (74-106); Potassium 3.4 mmol/L (3.5-5.1); Sodium Level 133 mmol/L (136-145)
[2022-10-05 07:25] LABS: Bedside Glucose 481 mg/dL (74-106)
[2022-10-05 07:25] LABS: Bedside Glucose 417 mg/dL (74-106)
[2022-10-05 07:25] LABS: Bedside Glucose 361 mg/dL (74-106)
--- NOTE | 2022-10-05 07:26 | PN.CC_ITS ---
Assessment & Plan Assessment/Plan (1) Acute respiratory failure with hypoxia: PLAN: Plan RECOMMENDATIONS: 1. Continue insulin infusion until anion gap has been closed x2. 2. Once anion gap is closed, restart basal and sliding scale insulin coverage. 3. Ongoing dialysis support per nephrology recommendations. 4. Outpatient cardiology follow-up to discuss high risk RCA PCI. 5. Encourage incentive spirometer use and mobilize patient as tolerated. IMPRESSIONS: 1. HHS IV fluid hydration and continuous insulin infusion, per protocol. Once anion gap has been closed x2, the patient can be transition to basal and sliding scale insulin coverage. 2. Acute kidney injury Unclear etiology. Nephrology is following to assist with medical management. The patient is in need of hemodialysis and volume optimization routinely. 3. NSTEMI The patient's echocardiogram demonstrated a depressed ejection fraction at 35% with stage III diastolic dysfunction and pulmonary hypertension. Cardiology is following to assist with medical management. Cardiac catheterization shows significant diffuse two-vessel disease. 4. Diabetes mellitus/hypertension/congenital deafness/GERD Complicates care, management, recovery and prognosis. Continue home medications as indicated. This note was generated with [employer] dictation software. It may contain incorrect words, spelling, and punctuation that were not noted in checking the note before signing. Subjective Subjective The patient was seen and examined at the bedside this morning. Events from the last 24 hours have been reviewed. The patient was transferred back to the medical intensive care unit overnight for management of his hyperglycemia, requiring a continuous insulin infusion. He is otherwise hemodynamically stable on room air. Objective Data Objective Data The patient's most recent lab work, culture data and imaging studies have all been personally reviewed. Vital Signs: Vital Signs Temp Pulse Resp BP Pulse Ox O2 Del Method O2 Flow Rate 98.6 F 89 22 H 161/80 H 97 Room Air 2 10/05/22 06:01 10/05/22 06:01 10/05/22 06:01 10/05/22 06:01 10/05/22 06:01 10/05/22 06:01 10/01/22 17:25 FiO2 30 10/02/22 01:20 Oxygen Flow Rate (L/min) 2 Oxygen Delivery Method Room Air Weight: 159 lb 9.835 oz Body Mass Index (BMI) 25.8 Intake & Output: Intake and Output for Last 24 Hours 10/03/22 10/04/22 10/05/22 23:59 23:59 23:59 Intake Total 2197.58 / 2197.58 2095 / 2095 1416.98 / 1416.98 Output Total 425 / 425 950 / 950 Balance 1772.58 / 1772.58 1145 / 1145 1416.98 / 1416.98 Lab / Micro Data Attestation: I reviewed the patient's lab results. Result Diagrams: 10/06/22 04:15 10/06/22 04:15 Labs: Laboratory Results - last 24 hr 10/04/22 06:30: WBC 12.0 H, RBC 3.13 L, Hgb 9.2 L, Hct 28.9 L, MCV 92.3, MCH 29.4, MCHC 31.8 L D, RDW Std Deviation 41.6, RDW Coeff of Jenifer 12.5, Plt Count 430, MPV 11.0, Immature Gran % (Auto) 0.300, Neut % (Auto) 75.1 H, Lymph % (Auto) 8.2 L, [place] % (Auto) 10.5 H, Eos % (Auto) 4.9, Baso % (Auto) 1.0, Abso lute Neuts (auto) 9.0 H, Absolute Lymphs (auto) 0.98, Nucleated RBC % 0 10/04/22 06:30: Sodium 131 L, Potassium 3.6, Chloride 96 L, Carbon Dioxide 22.0, Anion Gap 13, BUN 61 H, Creatinine 6.59 H, Estim Creat Clear Calc 12.62, Est GFR (MDRD) Af Amer 11 L, Est GFR (MDRD) Non-Af 9 L, BUN/Creatinine Ratio 9.3 L, Glucose 513 H*, Calcium 8.3 L, Magnesium 2.4, Total Bilirubin 0.30, AST 18, ALT < 6 L, Alkaline Phosphatase 91, Total Protein 6.3 L, Albumin 1.9 L, Globulin 4.4 H, Albumin/Globulin Ratio 0.4 L 10/04/22 10:22: POC Glucose 353 H 10/04/22 11:32: POC Glucose 410 H 10/04/22 15:45: Sodium 133 L, Potassium 3.4 L, Chloride 97 L, Carbon Dioxide 25.0, Anion Gap 11, BUN 69 H, Creatinine 7.03 H, Estim Creat Clear Calc 11.83, Est GFR (MDRD) Af Amer 10 L, Est GFR (MDRD) Non-Af 9 L, BUN/Creatinine Ratio 9.8 L, Glucose 341 H, Calcium 8.6 10/04/22 17:49: POC Glucose 385 H 10/04/22 23:33: POC Glucose > 500 H* 10/05/22 00:54: POC Glucose > 500 H* 10/05/22 01:30: Sodium 130 L, Potassium 3.7, Chloride 94 L, Carbon Dioxide 17.0 L, Anion Gap 19 H, BUN 80 H, Creatinine 7.59 H*, Estim Creat Clear Calc 10.95, Est GFR (MDRD) Af Amer 10 L, Est GFR (MDRD) Non-Af 8 L, BUN/Creatinine Ratio 10.5, Glucose 780 H*, Calcium 8.1 L 10/05/22 01:30: Phosphorus 3.1, Magnesium 2.3 10/05/22 02:36: POC Glucose > 500 H* 10/05/22 05:00: WBC 12.3 H, RBC 2.98 L, Hgb 8.8 L, Hct 27.1 L, MCV 90.9, MCH 29.5, MCHC 32.5, RDW Std Deviation 40.6, RDW Coeff of Jenifer 12.4, Plt Count 418, MPV 10.8, Immature Gran % (Auto) 0.300, Neut % (Auto) 79.1 H, Lymph % (Auto) 7.2 L, [place] % (Auto) 10.4 H, Eos % (Auto) 2.2, Baso % (Auto) 0.8, Absolute Neuts (auto) 9.7 H, Absolute Lymphs (auto) 0.88, Nucleated RBC % 0 10/05/22 05:00: Serum Osmolality 335 H 10/05/22 05:00: Acetone Level NEGATIVE 10/05/22 05:14: POC Glucose 481 H* 10/05/22 06:15: POC Glucose 417 H 10/05/22 06:20: Sodium 133 L, Potassium 3.4 L, Chloride 98, Carbon Dioxide 21.0, Anion Gap 14, BUN 82 H, Creatinine 7.86 H*, Estim Creat Clear Calc 10.49, Est GFR (MDRD) Af Amer 9 L, Est GFR (MDRD) Non-Af 8 L, BUN/Creatinine Ratio 10.4, Glucose 458 H*, Calcium 8.3 L 10/05/22 07:05: POC Glucose 361 H Micro: Microbiology 09/23/22 07:34 Sputum, Tracheal Aspirate Gram Stain - Final 09/23/22 07:34 Sputum, Tracheal Aspirate Respiratory Culture - Final Staphylococcus aureus 09/22/22 07:20 Sputum, Induced/Lukens Gram Stain - Final 09/22/22 07:20 Sputum, Induced/Lukens Respiratory Culture - Final Mixed normal respiratory amparo. No Streptococcus pneumoniae, beta-hemolytic Streptococcus or Staphylococcus aureus isolated. 09/17/22 15:45 Urine, Clean Catch Urine Culture - Final Culture exhibits no growth. 09/16/22 07:05 Nasal Secretion SARS-CoV-2 & FLU Antigen (Rapid) - Final Physical Exam Const alert and no apparent distress General Appearance: cooperative HEENT normocephalic and head/scalp atraumatic Eyes PERRL, EOMs intact bilaterally and conjunctivae normal Neck supple General: trachea midline Chest inspection of chest normal Resp normal respiratory effort Auscultation: Negative for rales, rhonchi or wheezes Cardio regular rate and regular rhythm GI normal to inspection, nondistended, normoactive bowel sounds Extremity no clubbing, cyanosis or edema Skin no rashes or lesions noted Neuro CN's II-XII intact bilaterally, moves all extremities and no focal motor deficits Psych cooperative and affect normal Charges/Coding Visit Charges Inpatient E&M: 08624 Subs Hosp L3
[2022-10-05 08:31] LABS: Bedside Glucose 284 mg/dL (74-106)
[2022-10-05] MEDS: Senna/Docusate Sodium 1 Tablet 2 TABLET GT (09:24)
[2022-10-05] MEDS: Aspirin E.C. 81 MG Tablet PO (09:26)
[2022-10-05] MEDS: Dorzolamide HCL/Timolol 10 ml Bottle 1 DRP OPHTHALMIC ×2 (09:27→21:14)
[2022-10-05] MEDS: Menthol/Lanolin/Calamine/Znox 113 GM Tube 1 APPLIC TOPICAL ×2 (09:28→21:13)
[2022-10-05] MEDS: Carvedilol 25 MG Tablet GT ×2 (09:29→21:13)
[2022-10-05 10:15] LABS: Bedside Glucose 191 mg/dL (74-106)
[2022-10-05 10:22] LABS: Anion Gap 11 (5-15); BUN 81 mg/dL (7-18); BUN/Creat Ratio 10.3 RATIO (10-20); Calcium,Total 8.4 mg/dL (8.5-10.1); Chloride 103 mmol/L (98-107); Creatinine, Serum 7.87 mg/dL (0.70-1.30); EST Glomerular Filtration Rate 8 mL/min (>60); Est Glom Filt Rate - Afr Amer 9 mL/min (>60); Estimated Creatinine Clearance 10.48 ml/min; Glucose 208 mg/dL (74-106); Potassium 3.4 mmol/L (3.5-5.1); Sodium Level 138 mmol/L (136-145)
--- NOTE | 2022-10-05 11:13 | PN.HOSP_ITS ---
Subjective Subjective Glucose continued to escalate last night despite escalation of insulin and had BMP drawn which did show open gap and he was transferred to the ICU on an insulin drip. Gap closed this a.m. and he will be transition back to subcu with long-acting and prandial insulin, was receiving tube feeds every 4 so we will time checks and insulin according to this. Patient did not endorse any complaints at the time of exam Objective Data Objective Data Vital Signs: Vital Signs Temp Pulse Resp BP Pulse Ox O2 Del Method O2 Flow Rate 98.4 F 78 16 141/77 H 95 Room Air 2 10/05/22 08:00 10/05/22 10:00 10/05/22 10:00 10/05/22 10:00 10/05/22 10:00 10/05/22 10:00 10/01/22 17:25 FiO2 30 10/02/22 01:20 Oxygen Flow Rate (L/min) 2 Oxygen Delivery Method Room Air Weight: 72.4 kg Body Mass Index (BMI) 25.8 Intake & Output: Intake and Output for Last 24 Hours 10/03/22 10/04/22 10/05/22 23:59 23:59 23:59 Intake Total 2197.58 / 2197.58 2095 / 2095 1532.69 / 1532.69 Output Total 425 / 425 950 / 950 Balance 1772.58 / 1772.58 1145 / 1145 1532.69 / 1532.69 Lab / Micro Data Result Diagrams: 10/05/22 05:00 10/05/22 09:55 Labs: Laboratory Results - last 24 hr 10/04/22 11:32: POC Glucose 410 H 10/04/22 15:45: Sodium 133 L, Potassium 3.4 L, Chloride 97 L, Carbon Dioxide 25.0, Anion Gap 11, BUN 69 H, Creatinine 7.03 H, Estim Creat Clear Calc 11.83, Est GFR (MDRD) Af Amer 10 L, Est GFR (MDRD) Non-Af 9 L, BUN/Creatinine Ratio 9.8 L, Glucose 341 H, Calcium 8.6 10/04/22 17:49: POC Glucose 385 H 10/04/22 23:33: POC Glucose > 500 H* 10/05/22 00:54: POC Glucose > 500 H* 10/05/22 01:30: Sodium 130 L, Potassium 3.7, Chloride 94 L, Carbon Dioxide 17.0 L, Anion Gap 19 H, BUN 80 H, Creatinine 7.59 H*, Estim Creat Clear Calc 10.95, Est GFR (MDRD) Af Amer 10 L, Est GFR (MDRD) Non-Af 8 L, BUN/Creatinine Ratio 10.5, Glucose 780 H*, Calcium 8.1 L 10/05/22 01:30: Phosphorus 3.1, Magnesium 2.3 10/05/22 02:36: POC Glucose > 500 H* 10/05/22 05:00: WBC 12.3 H, RBC 2.98 L, Hgb 8.8 L, Hct 27.1 L, MCV 90.9, MCH 29.5, MCHC 32.5, RDW Std Deviation 40.6, RDW Coeff of Jenifer 12.4, Plt Count 418, MPV 10.8, Immature Gran % (Auto) 0.300, Neut % (Auto) 79.1 H, Lymph % (Auto) 7.2 L, [place] % (Auto) 10.4 H, Eos % (Auto) 2.2, Baso % (Auto) 0.8, Absolute Neuts (auto) 9.7 H, Absolute Lymphs (auto) 0.88, Nucleated RBC % 0 10/05/22 05:00: Serum Osmolality 335 H 10/05/22 05:00: Acetone Level NEGATIVE 10/05/22 05:14: POC Glucose 481 H* 10/05/22 06:15: POC Glucose 417 H 10/05/22 06:20: Sodium 133 L, Potassium 3.4 L, Chloride 98, Carbon Dioxide 21.0, Anion Gap 14, BUN 82 H, Creatinine 7.86 H*, Estim Creat Clear Calc 10.49, Est GFR (MDRD) Af Amer 9 L, Est GFR (MDRD) Non-Af 8 L, BUN/Creatinine Ratio 10.4, Glucose 458 H*, Calcium 8.3 L 10/05/22 07:05: POC Glucose 361 H 10/05/22 08:10: POC Glucose 284 H 10/05/22 09:23: POC Glucose 191 H 10/05/22 09:55: Sodium 138, Potassium 3.4 L, Chloride 103, Carbon Dioxide 24.0, Anion Gap 11, BUN 81 H, Creatinine 7.87 H*, Estim Creat Clear Calc 10.48, Est GFR (MDRD) Af Amer 9 L, Est GFR (MDRD) Non-Af 8 L, BUN/Creatinine Ratio 10.3, Glucose 208 H, Calcium 8.4 L Micro: Microbiology 09/23/22 07:34 Sputum, Tracheal Aspirate Gram Stain - Final 09/23/22 07:34 Sputum, Tracheal Aspirate Respiratory Culture - Final Staphylococcus aureus 09/22/22 07:20 Sputum, Induced/Lukens Gram Stain - Final 09/22/22 07:20 Sputum, Induced/Lukens Respiratory Culture - Final Mixed normal respiratory amparo. No Streptococcus pneumoniae, beta-hemolytic Streptococcus or Staphylococcus aureus isolated. 09/17/22 15:45 Urine, Clean Catch Urine Culture - Final Culture exhibits no growth. 09/16/22 07:05 Nasal Secretion SARS-CoV-2 & FLU Antigen (Rapid) - Final Physical Exam Const alert and no apparent distress General Appearance: cooperative HEENT normocephalic and head/scalp atraumatic Eyes PERRL, EOMs intact bilaterally and conjunctivae normal Neck supple General: trachea midline Chest inspection of chest normal Resp normal respiratory effort Auscultation: Negative for rales, rhonchi or wheezes Cardio regular rate and regular rhythm GI normal to inspection, nondistended, normoactive bowel sounds Extremity no clubbing, cyanosis or edema Skin no rashes or lesions noted Neuro CN's II-XII intact bilaterally, moves all extremities and no focal motor deficits Psych cooperative and affect normal Assessment & Plan Assessment/Plan (1) Non-ST elevated myocardial infarction (non-STEMI): (2) Acute renal failure: (3) Hypertensive emergency: (4) 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, with long- term current use of insulin: (5) Congenital deafness: (6) Acute respiratory failure with hypoxia: (7) Cardiomyopathy: PLAN: Plan #DKA in the setting of 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 with long-term current use of insulin Currently only on sliding scale insulin and having worsening glucoses but they are widely variable and not consistent which makes titration difficult Will start a basal insulin conservatively at 5 and trend, will likely need further titration but given extreme highs followed by glucose in the 160s concern for hypoglycemia 10/04: Glucoses have escalated, will increase long-acting and start Premeal in addition to sliding scale, will check BMP at this afternoon to assure no gap opens with his persistent elevation 10/05: Had escalating glucose despite increasing insulin, Increased on BMP and he was placed on insulin drip in the ICU. Gap is closed and he is doing well, calculated daily requirement and have added 25 units of long-acting insulin with 10 units every 4 prandial tube feeds and every 4 sliding scale insulin. Continue to monitor BMPs #TREVOR requiring dialysis Nephrology following Has left-sided tunneled hemodialysis catheter, also has PEG tube Still making urine but kidney function is not recovering yet Continue dialysis per nephrology recommendations 10/05: Nephrology following #NSTEMI Had cardiac cath this admission which showed diffusely diseased 2 vessels with LV systolic dysfunction with an LV gram EF of 40%. It was recommended tertiary care transfer referral for targeted PCI after he is stabilized. 09/30 attempted to transfer but they were not excepting transfers at this time. Previous hospitalist discussed with cardiology and it was agreed that he could continue medical management with outpatient follow-up with cardiac surgeon. Coreg, aspirin, atorvastatin Cardiology following #Cardiomyopathy Unclear etiology Did have echo here on 09/16 with an EF of 35% and stage III diastolic dysfunction and moderate to severe global hypokinesis of the left ventricle On Coreg Cannot tolerate ANIA/ARB due to kidney function #Hypertension Continue to adjust antihypertensives, Coreg increased on 10/04 #Congenital deafness Reads lips and writes on paper #Acute hypoxic respiratory failure resolved Was intubated in the ICU and has since been extubated #DVT ppx: No longer on systemic anticoagulation so started heparin subcu Susu Goode MD Charges/Coding Visit Charges Inpatient E&M: 68923 Subs Hosp L2
[2022-10-05] MEDS: Insulin Glargine-YFGN 100 UNIT/ML Pen 25 UNIT SC (11:29)
[2022-10-05] MEDS: NEPRO TUBE FEED 1,000 ML 45 ML GT (12:12)
[2022-10-05] MEDS: Insulin Lispro 100 UNIT/ML INSULN.PEN 10 UNIT SC ×2 (14:01→17:45)
[2022-10-05] MEDS: Insulin Lispro 100 UNIT/ML INSULN.PEN SC (14:02)
[2022-10-05 14:20] LABS: Bedside Glucose 262 mg/dL (74-106)
[2022-10-05 14:50] LABS: Mucous, Urine 0 SEEN /hpf (<or=2+); Squamous Epithelial Cells - UA 0 SEEN /hpf (0-5)
[2022-10-05 14:52] LABS: Color, Urine Yellow (Yellow); Glucose, Dipstick 1000 mg/dl (Normal); Ketone-Dipstick Negative (Negative); Leukocyte Esterase-Dipstick 100 /ul (Negative); Nitrite-Dipstick Positive (Negative); Occult Blood-Urine 250 /ul (Negative); Protein-Dipstick 500 mg/dl (Negative); Urine Bilirubin Dipstick Negative (Negative); Urine Clarity Cloudy (Clear); Urine Urobilinogen Normal (Normal)
[2022-10-05 15:00] LABS: Bacteria 3+ /hpf (None Seen); Red Blood Cells-Urine 25-50 SEEN /hpf (0-5); White Blood Cells 5-10 SEEN /hpf (0-5)
--- NOTE | 2022-10-05 16:42 | PCM.PN.REN ---
Subjective Subjective F/u on TREVOR requiring dialytic support. Last HD Wednesday. Has been transferred to ICU for insulin drip. Makes urine, but Cr is going up Objective Data Objective Data Vital Signs: Vital Signs Temp Pulse Resp BP Pulse Ox O2 Del Method O2 Flow Rate 97.9 F 89 23 H 158/71 H 98 Room Air 2 10/05/22 16:00 10/05/22 16:00 10/05/22 16:00 10/05/22 16:00 10/05/22 16:00 10/05/22 16:00 10/01/22 17:25 FiO2 30 10/02/22 01:20 Oxygen Flow Rate (L/min) 2 Oxygen Delivery Method Room Air Weight: 72.4 kg Body Mass Index (BMI) 25.8 Intake & Output: Intake and Output for Last 24 Hours 10/03/22 10/04/22 10/05/22 23:59 23:59 23:59 Intake Total 2197.58 / 2197.58 2095 / 2095 2212.69 / 2212.69 Output Total 425 / 425 950 / 950 10 / 10 Balance 1772.58 / 1772.58 1145 / 1145 2202.69 / 2202.69 Lab / Micro Data Attestation: I reviewed the patient's lab results. Result Diagrams: 10/05/22 05:00 10/05/22 09:55 Labs: Laboratory Results - last 24 hr 10/04/22 17:49: POC Glucose 385 H 10/04/22 23:33: POC Glucose > 500 H* 10/05/22 00:54: POC Glucose > 500 H* 10/05/22 01:30: Sodium 130 L, Potassium 3.7, Chloride 94 L, Carbon Dioxide 17.0 L, Anion Gap 19 H, BUN 80 H, Creatinine 7.59 H*, Estim Creat Clear Calc 10.95, Est GFR (MDRD) Af Amer 10 L, Est GFR (MDRD) Non-Af 8 L, BUN/Creatinine Ratio 10.5, Glucose 780 H*, Calcium 8.1 L 10/05/22 01:30: Phosphorus 3.1, Magnesium 2.3 10/05/22 02:36: POC Glucose > 500 H* 10/05/22 05:00: WBC 12.3 H, RBC 2.98 L, Hgb 8.8 L, Hct 27.1 L, MCV 90.9, MCH 29.5, MCHC 32.5, RDW Std Deviation 40.6, RDW Coeff of Jenifer 12.4, Plt Count 418, MPV 10.8, Immature Gran % (Auto) 0.300, Neut % (Auto) 79.1 H, Lymph % (Auto) 7.2 L, [place] % (Auto) 10.4 H, Eos % (Auto) 2.2, Baso % (Auto) 0.8, Absolute Neuts (auto) 9.7 H, Absolute Lymphs (auto) 0.88, Nucleated RBC % 0 10/05/22 05:00: Serum Osmolality 335 H 10/05/22 05:00: Acetone Level NEGATIVE 10/05/22 05:14: POC Glucose 481 H* 10/05/22 06:15: POC Glucose 417 H 10/05/22 06:20: Sodium 133 L, Potassium 3.4 L, Chloride 98, Carbon Dioxide 21.0, Anion Gap 14, BUN 82 H, Creatinine 7.86 H*, Estim Creat Clear Calc 10.49, Est GFR (MDRD) Af Amer 9 L, Est GFR (MDRD) Non-Af 8 L, BUN/Creatinine Ratio 10.4, Glucose 458 H*, Calcium 8.3 L 10/05/22 07:05: POC Glucose 361 H 10/05/22 08:10: POC Glucose 284 H 10/05/22 09:23: POC Glucose 191 H 10/05/22 09:55: Sodium 138, Potassium 3.4 L, Chloride 103, Carbon Dioxide 24.0, Anion Gap 11, BUN 81 H, Creatinine 7.87 H*, Estim Creat Clear Calc 10.48, Est GFR (MDRD) Af Amer 9 L, Est GFR (MDRD) Non-Af 8 L, BUN/Creatinine Ratio 10.3, Glucose 208 H, Calcium 8.4 L 10/05/22 13:59: POC Glucose 262 H 10/05/22 14:35: Urine Color Yellow, Urine Clarity Cloudy, Urine pH 7.0, Ur Specific [place] 1.010, Urine Protein 500 H, Urine Glucose (UA) 1000 H, Urine Ketones Negative, Urine Occult Blood 250 H, Urine Nitrite Positive H, Urine Bilirubin Negative, Urine Urobilinogen Normal, Ur Leukocyte Esterase 100 H, Urine RBC 25-50 SEEN, Urine WBC 5-10 SEEN, Ur Squamous Epith Cells 0 SEEN, Urine Bacteria 3+, Urine Mucus 0 SEEN Micro: Microbiology 09/23/22 07:34 Sputum, Tracheal Aspirate Gram Stain - Final 09/23/22 07:34 Sputum, Tracheal Aspirate Respiratory Culture - Final Staphylococcus aureus 09/22/22 07:20 Sputum, Induced/Lukens Gram Stain - Final 09/22/22 07:20 Sputum, Induced/Lukens Respiratory Culture - Final Mixed normal respiratory apmaro. No Streptococcus pneumoniae, beta-hemolytic Streptococcus or Staphylococcus aureus isolated. 09/17/22 15:45 Urine, Clean Catch Urine Culture - Final Culture exhibits no growth. 09/16/22 07:05 Nasal Secretion SARS-CoV-2 & FLU Antigen (Rapid) - Final Physical Exam Const alert, no apparent distress and average body habitus General Appearance: well developed HEENT normocephalic Head and Scalp: atraumatic Cardio regular rate GI non-tender Auscultation: normoactive bowel sounds Palpation: soft Neuro Sensorium / Orientation: awake and alert Motor Exam: muscle tone normal throughout Psych cooperative Assessment & Plan Assessment/Plan (1) TREVOR (acute kidney injury): PLAN: No recovery of renal fx, albeit UO is a bit better. Will be dialyzed today as scheduled. Monitor renal fx
[2022-10-05 18:01] LABS: Bedside Glucose 128 mg/dL (74-106)
[2022-10-05] MEDS: Metoclopramide 10 MG/2 ML Vial 5 MG IV (19:10)
[2022-10-05] MEDS: 0.9% Saline Lock 10 ML Syringe IV (19:11)
--- NOTE | 2022-10-05 19:41 | DIALYSIS ---
Hemodialysis tx completed x 3 hours without complications. Pt tolerated tx fair, fluid removed 1,000ml using crit-line monitor to B profile. Vitals stable throughout. Post tx report given to ISABEL Troy
[2022-10-05] MEDS: Latanoprost 0.005% 1 Bottle 1 DRP OPHTHALMIC (21:13)
[2022-10-05] MEDS: Atorvastatin Calcium 40 MG Tablet GT (21:14)
[2022-10-05 21:51] LABS: Bedside Glucose 64 mg/dL (74-106)
--- NOTE | 2022-10-05 23:00 | CPS ---
Pt Refused to wear BIPAP tonight
[2022-10-05 23:06] LABS: Bedside Glucose 100 mg/dL (74-106)
[2022-10-06] VITALS (21 sets, daily range): BP systolic 139–155; BP diastolic 62–88; PULSE 79–108; RESP 12–38; TEMP 36.6–38.4; O2SAT 93–99
[2022-10-06] MEDS: Acetaminophen 650 MG Suppository RC ×2 (00:51→18:37)
[2022-10-06] MEDS: Insulin Lispro 100 UNIT/ML INSULN.PEN SC ×6 (02:21→09:26)
[2022-10-06 02:46] LABS: Bedside Glucose 241 mg/dL (74-106)
[2022-10-06 04:38] LABS: Absolute Lymphocyte Count 0.96 X10^3/uL (0.83-4.51); Absolute Neutrophil Count 10.7 X10^3/uL (2.0-7.7); Basophil# 0.07 X10^3/uL; Basophil% 0.5 % (0-1); Eosinophil# 0.16 X10^3/uL; Eosinophils% 1.2 % (0-5); Hematocrit 26.4 % (40-54); Hemoglobin 8.9 g/dL (13.0-16.5); Lymphocyte # 0.96 X10^3/ul (0.83-4.51); Lymphocyte % 7.4 % (19-41); Mean Corp Hgb Conc 33.7 g/dL (32-36); Mean Corpuscular Hgb 30.8 pg (27.0-32.0); Mean Corpuscular Volume 91.3 fL (80-94); Mean Platelet Vol. 10.8 fl (6.2-12.0); Monocyte# 1.04 X10^3/uL; NRBC Flagged by Analyzer 0 % (0-5); Neutrophil # 10.72 X10^3/uL (2.7-7.7); Neutrophil % 82.5 % (47-70); Platelet Count 378 K/mm3 (150-450); RBC Distribution Width CV 12.7 % (11.6-14.6); RBC Distribution Width SD 42.1 fl (35.1-43.9); Red Blood Count 2.89 M/mm3 (4.6-6.2)
[2022-10-06 05:17] LABS: ALB/GLOB Ratio 0.4 RATIO (0.9-2.4); AST(SGOT) 21 U/L (15-37); Alanine Aminotransfer ALT/SGPT < 6 U/L (16-61); Albumin, Serum 1.7 g/dL (3.2-5.0); Alkaline Phosphatase 71 U/L (45-117); Anion Gap 6 (5-15); BUN 38 mg/dL (7-18); BUN/Creat Ratio 8.2 RATIO (10-20); Chloride 98 mmol/L (98-107); Creatinine, Serum 4.65 mg/dL (0.70-1.30); EST Glomerular Filtration Rate 14 mL/min (>60); Est Glom Filt Rate - Afr Amer 17 mL/min (>60); Estimated Creatinine Clearance 17.73 ml/min; Globulin 4.3 g/dL (2.2-4.2); Glucose 332 mg/dL (74-106); Potassium 3.6 mmol/L (3.5-5.1); Sodium Level 133 mmol/L (136-145)
[2022-10-06] MEDS: hydrALAZINE 50 MG Tablet GT ×2 (06:49→20:36)
[2022-10-06] MEDS: Heparin Injection (Vial) 5,000 UNIT/ML VIAL 5000 UNIT SC ×2 (06:50→20:36)
--- NOTE | 2022-10-06 07:36 | RAD_ITS ---
EXAM: XR CHEST, 1 VIEW CLINICAL INDICATION: shortness of breath, fever TECHNIQUE: Frontal view of the chest. This report was created using Flutter report generation technology. COMPARISON: 09/30/2022. FINDINGS: LUNGS AND PLEURAL SPACES: Marked improvement of the pneumonia in the right lung and clearing of pneumonia in the left lung. No pneumothorax. No effusion. HEART: Unremarkable. Cardiac silhouette not enlarged. MEDIASTINUM: Central airways and mediastinal contour are unremarkable. BONES/JOINTS: Unremarkable. SOFT TISSUES: Unremarkable. TUBES, LINES AND DEVICES: Left IJ approach double lumen catheter remains in the distal SVC. RAD/Chest 1 View (Portable) IMPRESSION: Clearing of pneumonia in the left lung and marked improvement of pneumonia in the right lung. Electronically Signed: Akin De Jesus MD at 8:31 EST ,
[2022-10-06 09:08] LABS: Mucous, Urine 0 SEEN /hpf (<or=2+)
[2022-10-06 09:10] LABS: Color, Urine Yellow (Yellow); Glucose, Dipstick 1000 mg/dl (Normal); Ketone-Dipstick Negative (Negative); Leukocyte Esterase-Dipstick 25 /ul (Negative); Nitrite-Dipstick Negative (Negative); Occult Blood-Urine 250 /ul (Negative); Protein-Dipstick 500 mg/dl (Negative); Urine Bilirubin Dipstick Negative (Negative); Urine Clarity Sl. Cloudy (Clear); Urine Urobilinogen Normal (Normal)
[2022-10-06] MEDS: Menthol/Lanolin/Calamine/Znox 113 GM Tube 1 APPLIC TOPICAL ×2 (09:17→20:27)
[2022-10-06] MEDS: Aspirin E.C. 81 MG Tablet PO (09:17)
[2022-10-06] MEDS: Dorzolamide HCL/Timolol 10 ml Bottle 1 DRP OPHTHALMIC ×2 (09:18→20:12)
[2022-10-06] MEDS: Carvedilol 25 MG Tablet GT ×2 (09:18→20:36)
[2022-10-06 09:22] LABS: Bacteria 1+ /hpf (None Seen); Red Blood Cells-Urine 25-50 SEEN /hpf (0-5); Squamous Epithelial Cells - UA 0-5 SEEN /hpf (0-5); White Blood Cells 0-5 SEEN /hpf (0-5)
[2022-10-06] MEDS: 0.9% Saline Lock 10 ML Syringe IV ×3 (09:25→15:41)
[2022-10-06] MEDS: Insulin Glargine-YFGN 100 UNIT/ML Pen 25 UNIT SC (09:27)
--- NOTE | 2022-10-06 09:30 | CASEMGMT ---
ISABEL CM: Notification received this AM from Tiffany of need for Peer to Peer for LTACH level of care. Message left on [employer] voicemail to schedule Peer to Peer. Kay Monroe RN CM
[2022-10-06 09:50] LABS: Lactic Acid 3.3 mmol/L (0.4-1.9)
--- NOTE | 2022-10-06 10:01 | PN.HOSP_ITS ---
Subjective Subjective Spiked a temp overnight, communicated via written note and reported he was feeling somewhat short of breath and somewhat of a cough. Objective Data Objective Data Vital Signs: Vital Signs Temp Pulse Resp BP Pulse Ox O2 Del Method O2 Flow Rate 100.7 F H 79 16 140/62 H 97 Nasal Cannula 4 10/06/22 04:11 10/06/22 06:49 10/06/22 04:11 10/06/22 06:49 10/06/22 04:11 10/06/22 04:11 10/06/22 04:11 FiO2 30 10/02/22 01:20 Oxygen Flow Rate (L/min) 4 Oxygen Delivery Method Nasal Cannula Weight: 72.4 kg Body Mass Index (BMI) 25.8 Intake & Output: Intake and Output for Last 24 Hours 10/04/22 10/05/22 10/06/22 23:59 23:59 23:59 Intake Total 2095 / 2095 2639.94 / 2639.94 120 / 120 Output Total 950 / 950 160 / 160 Balance 1145 / 1145 2479.94 / 2479.94 120 / 120 Lab / Micro Data Result Diagrams: 10/06/22 04:15 10/06/22 04:15 Labs: Laboratory Results - last 24 hr 10/05/22 09:23: POC Glucose 191 H 10/05/22 09:55: Sodium 138, Potassium 3.4 L, Chloride 103, Carbon Dioxide 24.0, Anion Gap 11, BUN 81 H, Creatinine 7.87 H*, Estim Creat Clear Calc 10.48, Est GFR (MDRD) Af Amer 9 L, Est GFR (MDRD) Non-Af 8 L, BUN/Creatinine Ratio 10.3, Glucose 208 H, Calcium 8.4 L 10/05/22 13:59: POC Glucose 262 H 10/05/22 14:35: Urine Color Yellow, Urine Clarity Cloudy, Urine pH 7.0, Ur Specific [place] 1.010, Urine Protein 500 H, Urine Glucose (UA) 1000 H, Urine Ketones Negative, Urine Occult Blood 250 H, Urine Nitrite Positive H, Urine Bilirubin Negative, Urine Urobilinogen Normal, Ur Leukocyte Esterase 100 H, Urine RBC 25-50 SEEN, Urine WBC 5-10 SEEN, Ur Squamous Epith Cells 0 SEEN, Urine Bacteria 3+, Urine Mucus 0 SEEN 10/05/22 17:41: POC Glucose 128 H 12/26/22 21:27: POC Glucose 64 L 10/05/22 22:45: POC Glucose 100 10/06/22 02:20: POC Glucose 241 H 10/06/22 04:15: WBC 13.0 H, RBC 2.89 L, Hgb 8.9 L, Hct 26.4 L, MCV 91.3, MCH 30.8, MCHC 33.7, RDW Std Deviation 42.1, RDW Coeff of Jenifer 12.7, Plt Count 378, MPV 10.8, Immature Gran % (Auto) 0.400, Neut % (Auto) 82.5 H, Lymph % (Auto) 7.4 L, [place] % (Auto) 8.0, Eos % (Auto) 1.2, Baso % (Auto) 0.5, Absolute Neuts (auto) 10.7 H, Absolute Lymphs (auto) 0.96, Nucleated RBC % 0 10/06/22 04:15: Sodium 133 L, Potassium 3.6, Chloride 98, Carbon Dioxide 29.0, Anion Gap 6, BUN 38 H, Creatinine 4.65 H, Estim Creat Clear Calc 17.73, Est GFR (MDRD) Af Amer 17 L, Est GFR (MDRD) Non-Af 14 L, BUN/Creatinine Ratio 8.2 L, Gl ucose 332 H, Calcium 8.0 L, Magnesium 2.0, Total Bilirubin 0.30, AST 21, ALT < 6 L, Alkaline Phosphatase 71, Total Protein 6.0 L, Albumin 1.7 L, Globulin 4.3 H, Albumin/Globulin Ratio 0.4 L 10/06/22 09:00: Lactic Acid 3.3 H* 10/06/22 09:00: Urine Color Yellow, Urine Clarity Sl. Cloudy, Urine pH 7.0, Ur Specific [place] 1.010, Urine Protein 500 H, Urine Glucose (UA) 1000 H, Urine Ketones Negative, Urine Occult Blood 250 H, Urine Nitrite Negative, Urine Bilirubin Negative, Urine Urobilinogen Normal, Ur Leukocyte Esterase 25 H, Urine RBC 25-50 SEEN, Urine WBC 0-5 SEEN, Ur Squamous Epith Cells 0-5 SEEN, Urine Bacteria 1+, Urine Mucus 0 SEEN Micro: Microbiology 10/06/22 09:00 Nasal Secretion SARS-CoV-2 & FLU Antigen (Rapid) - Final 09/23/22 07:34 Sputum, Tracheal Aspirate Gram Stain - Final 09/23/22 07:34 Sputum, Tracheal Aspirate Respiratory Culture - Final Staphylococcus aureus 09/22/22 07:20 Sputum, Induced/Lukens Gram Stain - Final 09/22/22 07:20 Sputum, Induced/Lukens Respiratory Culture - Final Mixed normal respiratory amparo. No Streptococcus pneumoniae, beta-hemolytic Streptococcus or Staphylococcus aureus isolated. 09/17/22 15:45 Urine, Clean Catch Urine Culture - Final Culture exhibits no growth. 09/16/22 07:05 Nasal Secretion SARS-CoV-2 & FLU Antigen (Rapid) - Final Radiography Diagnostic Testing: Radiology Impression Chest X-Ray 10/06/22 07:36 IMPRESSION: Clearing of pneumonia in the left lung and marked improvement of pneumonia in the right lung. Electronically Signed: Akin De Jesus MD at 8:31 EST Reading Location ID and State: [address] [place] [address] , Service support , Physical Exam Const alert and no apparent distress Constitutional Narrative: Oriented HEENT normocephalic and head/scalp atraumatic Eyes Eyes Narrative: EOM grossly intact, anicteric Neck supple Resp normal respiratory effort and clear to auscultation bilaterally Cardio regular rate and regular rhythm GI soft to palpation, non-tender and non-distended Extremity Extremity Narrative: No edema appreciated Neuro moves all extremities Neuro Narrative: No overt focal deficits appreciated Psych Psych Narrative: Cooperative Assessment & Plan Assessment/Plan (1) Non-ST elevated myocardial infarction (non-STEMI): (2) Acute renal failure: (3) Hypertensive emergency: (4) 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 Pancultures Will start broad-spectrum antibiotics pending culture results Respiratory panel ordered as well #DKA in the setting of 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 with long-term current use of insulin?resolved Currently only on sliding scale insulin and having worsening glucoses but they are widely variable and not consistent which makes titration difficult Will start a basal insulin conservatively at 5 and trend, will likely need further titration but given extreme highs followed by glucose in the 160s concern for hypoglycemia 10/04: Glucoses have escalated, will increase long-acting and start Premeal in addition to sliding scale, will check BMP at this afternoon to assure no gap opens with his persistent elevation 10/05: Had escalating glucose despite increasing insulin, Increased on BMP and he was placed on insulin drip in the ICU. Gap is closed and he is doing well, calculated daily requirement and have added 25 units of long-acting insulin with 10 units every 4 prandial tube feeds and every 4 sliding scale insulin. Continue to monitor BMPs 10/06: Glucose may have significantly elevated due to underlying infection, glucose still widely variable and did have a low yesterday evening that a.m. glucose of 315, 1 to avoid hypoglycemia however, will further decrease insulin with meals #TREVOR requiring dialysis Nephrology following Has left-sided tunneled hemodialysis catheter, also has PEG tube Still making urine but kidney function is not recovering yet Continue dialysis per nephrology recommendations 10/05: Nephrology following 10/06: Dialysis 10/05 completed #NSTEMI Had cardiac cath this admission which showed diffusely diseased 2 vessels with LV systolic dysfunction with an LV gram EF of 40%. It was recommended tertiary care transfer referral for targeted PCI after he is stabilized. 09/30 attempted to transfer but they were not excepting transfers at this time. Previous hospitalist discussed with cardiology and it was agreed that he could continue medical management with outpatient follow-up with cardiac surgeon. Coreg, aspirin, atorvastatin Cardiology following #Cardiomyopathy Unclear etiology Did have echo here on 09/16 with an EF of 35% and stage III diastolic dysfunction and moderate to severe global hypokinesis of the left ventricle On Coreg Cannot tolerate ANIA/ARB due to kidney function #Hypertension Continue to adjust antihypertensives, Coreg increased on 10/04 Nephrology recommended to hold hydralazine and Coreg on the mornings of dialysis, added instructions #Congenital deafness Reads lips and writes on paper #Acute hypoxic respiratory failure resolved Was intubated in the ICU and has since been extubated #DVT ppx: No longer on systemic anticoagulation so started heparin subcu Susu Goode MD Charges/Coding Visit Charges Inpatient E&M: 85829 Subs Hosp L2
--- NOTE | 2022-10-06 10:05 | PN.RENAL_ITS ---
Documented by User: ZELDA Watts 10/06/22 10:19 Subjective Subjective Rest quietly in bed, no overnight events. On nasal cannula Objective Data Objective Data Vital Signs: Vital Signs Temp Pulse Resp BP Pulse Ox O2 Del Method O2 Flow Rate 100.7 F H 79 16 140/62 H 97 Nasal Cannula 4 10/06/22 04:11 10/06/22 06:49 10/06/22 04:11 10/06/22 06:49 10/06/22 04:11 10/06/22 04:11 10/06/22 04:11 FiO2 30 10/02/22 01:20 Oxygen Flow Rate (L/min) 4 Oxygen Delivery Method Nasal Cannula Weight: 72.4 kg Body Mass Index (BMI) 25.8 Intake & Output: Intake and Output for Last 24 Hours 10/04/22 10/05/22 10/06/22 23:59 23:59 23:59 Intake Total 2095 / 2095 2639.94 / 2639.94 120 / 120 Output Total 950 / 950 160 / 160 Balance 1145 / 1145 2479.94 / 2479.94 120 / 120 Lab / Micro Data Result Diagrams: 10/06/22 04:15 10/06/22 04:15 Labs: Laboratory Results - last 24 hr 10/05/22 09:23: POC Glucose 191 H 10/05/22 09:55: Sodium 138, Potassium 3.4 L, Chloride 103, Carbon Dioxide 24.0, Anion Gap 11, BUN 81 H, Creatinine 7.87 H*, Estim Creat Clear Calc 10.48, Est GFR (MDRD) Af Amer 9 L, Est GFR (MDRD) Non-Af 8 L, BUN/Creatinine Ratio 10.3, Glucose 208 H, Calcium 8.4 L 10/05/22 13:59: POC Glucose 262 H 10/05/22 14:35: Urine Color Yellow, Urine Clarity Cloudy, Urine pH 7.0, Ur Speci fic [place] 1.010, Urine Protein 500 H, Urine Glucose (UA) 1000 H, Urine Ketones Negative, Urine Occult Blood 250 H, Urine Nitrite Positive H, Urine Bilirubin Negative, Urine Urobilinogen Normal, Ur Leukocyte Esterase 100 H, Urine RBC 25- 50 SEEN, Urine WBC 5-10 SEEN, Ur Squamous Epith Cells 0 SEEN, Urine Bacteria 3+, Urine Mucus 0 SEEN 10/05/22 17:41: POC Glucose 128 H 10/05/22 21:27: POC Glucose 64 L 10/05/22 22:45: POC Glucose 100 10/06/22 02:20: POC Glucose 241 H 10/06/22 04:15: WBC 13.0 H, RBC 2.89 L, Hgb 8.9 L, Hct 26.4 L, MCV 91.3, MCH 30.8, MCHC 33.7, RDW Std Deviation 42.1, RDW Coeff of Jenifer 12.7, Plt Count 378, MPV 10.8, Immature Gran % (Auto) 0.400, Neut % (Auto) 82.5 H, Lymph % (Auto) 7.4 L, [place] % (Auto) 8.0, Eos % (Auto) 1.2, Baso % (Auto) 0.5, Absolute Neuts (auto) 10.7 H, Absolute Lymphs (auto) 0.96, Nucleated RBC % 0 10/06/22 04:15: Sodium 133 L, Potassium 3.6, Chloride 98, Carbon Dioxide 29.0, Anion Gap 6, BUN 38 H, Creatinine 4.65 H, Estim Creat Clear Calc 17.73, Est GFR (MDRD) Af Amer 17 L, Est GFR (MDRD) Non-Af 14 L, BUN/Creatinine Ratio 8.2 L, Glucose 332 H, Calcium 8.0 L, Magnesium 2.0, Total Bilirubin 0.30, AST 21, ALT < 6 L, Alkaline Phosphatase 71, Total Protein 6.0 L, Albumin 1.7 L, Globulin 4.3 H , Albumin/Globulin Ratio 0.4 L 10/06/22 09:00: Lactic Acid 3.3 H* 10/06/22 09:00: Urine Color Yellow, Urine Clarity Sl. Cloudy, Urine pH 7.0, Ur Specific [place] 1.010, Urine Protein 500 H, Urine Glucose (UA) 1000 H, Urine Ketones Negative, Urine Occult Blood 250 H, Urine Nitrite Negative, Urine Bilirubin Negative, Urine Urobilinogen Normal, Ur Leukocyte Esterase 25 H, Urine RBC 25-50 SEEN, Urine WBC 0-5 SEEN, Ur Squamous Epith Cells 0-5 SEEN, Urine Bacteria 1+, Urine Mucus 0 SEEN Micro: Microbiology 10/06/22 09:00 Nasal Secretion SARS-CoV-2 & FLU Antigen (Rapid) - Final 09/23/22 07:34 Sputum, Tracheal Aspirate Gram Stain - Final 09/23/22 07:34 Sputum, Tracheal Aspirate Respiratory Culture - Final Staphylococcus aureus 09/22/22 07:20 Sputum, Induced/Lukens Gram Stain - Final 09/22/22 07:20 Sputum, Induced/Lukens Respiratory Culture - Final Mixed normal respiratory amparo. No Streptococcus pneumoniae, beta-hemolytic Streptococcus or Staphylococcus aureus isolated. 09/17/22 15:45 Urine, Clean Catch Urine Culture - Final Culture exhibits no growth. 09/16/22 07:05 Nasal Secretion SARS-CoV-2 & FLU Antigen (Rapid) - Final Radiography Diagnostic Testing: Radiology Impression Chest X-Ray 10/06/22 07:36 IMPRESSION: Clearing of pneumonia in the left lung and marked improvement of pneumonia in the right lung. Electronically Signed: Akin De Jesus MD at 8:31 EST , Physical Exam Narrative Const: Alert and oriented x3, no apparent distress Cardio: S1, S2, RRR Respiratory: Lung sounds clear anteriorly and posteriorly, no wheezes, rhonchi or rales noted Abdomen: Soft, nontender Extremities: No pitting edema noted bilateral legs, feet or arms Tunneled HD catheter left chest dressing clean, dry and intact Assessment & Plan Assessment/Plan (1) TREVOR (acute kidney injury): (2) Benign essential hypertension: (3) Type 1 diabetes: (4) CKD (chronic kidney disease): PLAN: Plan - Baseline renal function is unclear serum creatinine was 1.60 mg/dL in 2020.? The last available serum creatinine in [facility] was from 04/22/2014 at 1.3 mg/dL. Suspect the patient has underlying diabetic kidney disease.? He is proteinuric in nephrotic range and has had longstanding, poorly controlled diabetes with retinopathy. Serologies including ANCA, C3, and C4 are negative.? Immunofixation is negative for monoclonal protein. It is possible that we are seeing progression of diabetic kidney disease towards ESRD. Unfortunately, biopsy could not be done because of patient's respiratory status and anxiety. Patient had cardiac catheterization 09/28: Significant diffuse two-vessel disease.? Echo: EF 35% with stage III diastolic dysfunction and pulmonary hypertension Blood pressures acceptable, please hold carvedilol and hydralazine mornings of dialysis. Reviewed CXR from today showing improvement. Patient still has good Urine output and can take lasix on non-HD days. Will order. Outpatient dialysis arrangements Wednesday at [facility]. Patient dialyzed yesterday, no acute indication for FREIGHT ELEVATOR ERECTOR today. We will plan for dialysis tomorrow. EDW not established yet. Documented by User: Dr. Den March MD 10/06/22 17:27 Objective Data Lab / Micro Data Result Diagrams: 10/06/22 04:15 10/06/22 04:15 Assessment & Plan Assessment/Plan (1) TREVOR (acute kidney injury): (2) Benign essential hypertension: (3) Type 1 diabetes: (4) CKD (chronic kidney disease): PLAN: Plan - Baseline renal function is unclear serum creatinine was 1.60 mg/dL in 2020.? The last available serum creatinine in [facility] was from 04/22/2014 at 1.3 mg/dL. Suspect the patient has underlying diabetic kidney disease.? He is proteinuric in nephrotic range and has had longstanding, poorly controlled diabetes with retinopathy. Serologies including ANCA, C3, and C4 are negative.? Immunofixation is negative for monoclonal protein. It is possible that we are seeing progression of diabetic kidney disease towards ESRD. Unfortunately, biopsy could not be done because of patient's respiratory status and anxiety. Patient had cardiac catheterization 09/28: Significant diffuse two-vessel disease.? Echo: EF 35% with stage III diastolic dysfunction and pulmonary hypertension Blood pressures acceptable, please hold carvedilol and hydralazine mornings of dialysis. Reviewed CXR from today showing improvement. Patient still has good Urine output and can take lasix on non-HD days. Will order. Outpatient dialysis arrangements Wednesday at [facility]. Patient dialyzed yesterday, no acute indication for FREIGHT ELEVATOR ERECTOR today. We will plan for dialysis tomorrow. EDW not established yet. Patient seen and examined, agree with note as outlined by WAREHOUSE SHIFT SUPERVISOR above. Continue with Wednesday dialysis session for now
[2022-10-06 10:10] LABS: Bedside Glucose 315 mg/dL (74-106)
[2022-10-06] MEDS: Ondansetron 4 MG/2 ML Vial IV ×3 (10:16→20:25)
--- NOTE | 2022-10-06 10:30 | PCM.RX.CS ---
Consult Type of Consult: New start Suspected Infection: Other - Fever of unknown origin Labs: Sodium 133 mmol/L (136-145) L 10/06/22 04:15 Potassium 3.6 mmol/L (3.5-5.1) 10/06/22 04:15 Chloride 98 mmol/L (98-107) 10/06/22 04:15 Carbon Dioxide 29.0 mmol/L (21.0-32.0) 10/06/22 04:15 Anion Gap 6 (5-15) 10/06/22 04:15 BUN 38 mg/dL (7-18) H 10/06/22 04:15 Creatinine 4.65 mg/dL (0.70-1.30) H 10/06/22 04:15 Est GFR (MDRD) Af Amer 17 mL/min (>60) L 10/06/22 04:15 Est GFR (MDRD) Non-Af 14 mL/min (>60) L 10/06/22 04:15 BUN/Creatinine Ratio 8.2 RATIO (10-20) L 10/06/22 04:15 Glucose 332 mg/dL (74-106) H 10/06/22 04:15 Microbiology: Microbiology 10/06/22 09:00 Nasal Secretion SARS-CoV-2 & FLU Antigen (Rapid) - Final 09/23/22 07:34 Sputum, Tracheal Aspirate Gram Stain - Final 09/23/22 07:34 Sputum, Tracheal Aspirate Respiratory Culture - Final Staphylococcus aureus 09/22/22 07:20 Sputum, Induced/Lukens Gram Stain - Final 09/22/22 07:20 Sputum, Induced/Lukens Respiratory Culture - Final Mixed normal respiratory amparo. No Streptococcus pneumoniae, beta-hemolytic Streptococcus or Staphylococcus aureus isolated. 09/17/22 15:45 Urine, Clean Catch Urine Culture - Final Culture exhibits no growth. 09/16/22 07:05 Nasal Secretion SARS-CoV-2 & FLU Antigen (Rapid) - Final Goal Trough: 15-20 mcg/mL Pharmacy Plan for Drug Dosing: NEW START IV VANCOMYCIN Consulting Physician: Dr. Goode Indication: Fever of unknown origin Goal Trough: 15-20 SrCr: 4.65 CrCl: 17.73 ml/min (HD pt) Comments: HD MWF Vancomycin Dose: 1750mg loading dose x1 now, then 500mg x1 dose 12/28/22 following dialysis Pending Level: Random level @ 0600 10/09/22 prior to next dialysis session Pharmacy Service will continue to monitor and adjust dosing as required. Labs to be done on [date and time ordered]: Random Vancomycin level @ 0600 10/09/22, prior to dialysis
--- NOTE | 2022-10-06 11:22 | CASEMGMT ---
RN CM: A call back was not received from [employer]. A second call was placed and new phone number of [phone] was received. This RN CM spoke with [facility] and scheduled peer to peer ephraim White for 1330 (only time available for today). Dr. Goode notified. Kay Monroe RN CM
[2022-10-06 11:35] LABS: Blood Gas Specimen Type VEN; VBG BASE EXCESS 0 mmol/L (-1.0-3.5); VBG Bicarbonate 23 mmol/L (22-26); VBG PO2 55 mmHg (25-40); VBG SO2 91 % (50-70); VBG TCO2 24 mmol/L (23-33); VBG pCO2 31.8 mmHg (41-51); VBG pH 7.48 (7.32-7.42)
[2022-10-06 11:55] LABS: Bedside Glucose 163 mg/dL (74-106)
--- NOTE | 2022-10-06 11:59 | PN.CARD_ITS ---
Subjective Subjective Patient congenitally deaf. Through my limited sign language, he denies any chest pains. But this morning. Objective Data Vital Signs: Vital Signs Temp Pulse Resp BP Pulse Ox O2 Del Method O2 Flow Rate 100.7 F H 79 16 140/62 H 97 Nasal Cannula 4 10/06/22 04:11 10/06/22 06:49 10/06/22 04:11 10/06/22 06:49 10/06/22 04:11 10/06/22 04:11 10/06/22 04:11 FiO2 30 10/02/22 01:20 Oxygen Flow Rate (L/min) 4 Oxygen Delivery Method Nasal Cannula Weight: 159 lb 9.835 oz Body Mass Index (BMI) 25.8 Intake & Output: Intake and Output for Last 24 Hours 10/04/22 10/05/22 10/06/22 23:59 23:59 23:59 Intake Total 2095 / 2095 2639.94 / 2639.94 120 / 120 Output Total 950 / 950 160 / 160 125 / 125 Balance 1145 / 1145 2479.94 / 2479.94 -5 / -5 Lab / Micro Data Result Diagrams: 10/06/22 04:15 10/06/22 04:15 Labs: Laboratory Results - last 24 hr 10/05/22 13:59: POC Glucose 262 H 10/05/22 14:35: Urine Color Yellow, Urine Clarity Cloudy, Urine pH 7.0, Ur Specific [place] 1.010, Urine Protein 500 H, Urine Glucose (UA) 1000 H, Urine Ketones Negative, Urine Occult Blood 250 H, Urine Nitrite Positive H, Urine Bilirubin Negative, Urine Urobilinogen Normal, Ur Leukocyte Esterase 100 H, Urine RBC 25-50 SEEN, Urine WBC 5-10 SEEN, Ur Squamous Epith Cells 0 SEEN, Urine Bacteria 3+, Urine Mucus 0 SEEN 10/05/22 17:41: POC Glucose 128 H 10/05/22 21:27: POC Glucose 64 L 10/05/22 22:45: POC Glucose 100 10/06/22 02:20: POC Glucose 241 H 10/06/22 04:15: WBC 13.0 H, RBC 2.89 L, Hgb 8.9 L, Hct 26.4 L, MCV 91.3, MCH 30.8, MCHC 33.7, RDW Std Deviation 42.1, RDW Coeff of Jenifer 12.7, Plt Count 378, MPV 10.8, Immature Gran % (Auto) 0.400, Neut % (Auto) 82.5 H, Lymph % (Auto) 7.4 L, [place] % (Auto) 8.0, Eos % (Auto) 1.2, Baso % (Auto) 0.5, Absolute Neuts (auto) 10.7 H, Absolute Lymphs (auto) 0.96, Nucleated RBC % 0 10/06/22 04:15: Sodium 133 L, Potassium 3.6, Chloride 98, Carbon Dioxide 29.0, Anion Gap 6, BUN 38 H, Creatinine 4.65 H, Estim Creat Clear Calc 17.73, Est GFR (MDRD) Af Amer 17 L, Est GFR (MDRD) Non-Af 14 L, BUN/Creatinine Ratio 8.2 L, Glucose 332 H, Calcium 8.0 L, Magnesium 2.0, Total Bilirubin 0.30, AST 21, ALT < 6 L, Alkaline Phosphatase 71, Total Protein 6.0 L, Albumin 1.7 L, Globulin 4.3 H , Albumin/Globulin Ratio 0.4 L 10/06/22 09:00: Lactic Acid 3.3 H* 10/06/22 09:00: Urine Color Yellow, Urine Clarity Sl. Cloudy, Urine pH 7.0, Ur Specific [place] 1.010, Urine Protein 500 H, Urine Glucose (UA) 1000 H, Urine Ketones Negative, Urine Occult Blood 250 H, Urine Nitrite Negative, Urine Bilirubin Negative, Urine Urobilinogen Normal, Ur Leukocyte Esterase 25 H, Urine RBC 25-50 SEEN, Urine WBC 0-5 SEEN, Ur Squamous Epith Cells 0-5 SEEN, Urine Bacteria 1+, Urine Mucus 0 SEEN 10/06/22 09:24: POC Glucose 315 H 10/06/22 11:37: POC Glucose 163 H Micro: Microbiology 10/06/22 09:00 Nasal Secretion SARS-CoV-2 & FLU Antigen (Rapid) - Final ABG Data ABG results: ABG 10/06/22 11:28 Specimen Type HUSSAIN VBG pH 7.48 H VBG pO2 55 H VBG HCO3 23 VBG Total CO2 24 VBG O2 Sat (Calc) 91 H VBG Base Excess 0 POC Mix VBG pCO2 Pt Tmp 31.8 L Cardiology Labs/Tests 10/05/22 14:35: Urine Color Yellow, Urine Clarity Cloudy, Urine pH 7.0, Ur Specific [place] 1.010, Urine Protein 500 H, Urine Glucose (UA) 1000 H, Urine Ketones Negative, Urine Occult Blood 250 H, Urine Nitrite Positive H, Urine Bilirubin Negative, Urine Urobilinogen Normal, Ur Leukocyte Esterase 100 H, Urine RBC 25-50 SEEN, Urine WBC 5-10 SEEN 10/06/22 04:15: WBC 13.0 H, RBC 2.89 L, Hgb 8.9 L, Hct 26.4 L, MCV 91.3, MCH 30.8, MCHC 33.7, Plt Count 378, MPV 10.8, Immature Gran % (Auto) 0.400, Neut % (Auto) 82.5 H, Lymph % (Auto) 7.4 L, [place] % (Auto) 8.0, Eos % (Auto) 1.2, Baso % (Auto) 0.5, Absolute Neuts (auto) 10.7 H, Nucleated RBC % 0 10/06/22 04:15: Sodium 133 L, Potassium 3.6, Chloride 98, Carbon Dioxide 29.0, Anion Gap 6, BUN 38 H, Creatinine 4.65 H, Est GFR (MDRD) Af Amer 17 L, Est GFR (MDRD) Non-Af 14 L, BUN/Creatinine Ratio 8.2 L, Glucose 332 H, Calcium 8.0 L, Magnesium 2.0, Total Bilirubin 0.30 10/06/22 09:00: Lactic Acid 3.3 H* 10/06/22 09:00: Urine Color Yellow, Urine Clarity Sl. Cloudy, Urine pH 7.0, Ur Specific [place] 1.010, Urine Protein 500 H, Urine Glucose (UA) 1000 H, Urine Ketones Negative, Urine Occult Blood 250 H, Urine Nitrite Negative, Urine Bilirubin Negative, Urine Urobilinogen Normal, Ur Leukocyte Esterase 25 H, Urine RBC 25-50 SEEN, Urine WBC 0-5 SEEN 10/06/22 11:28: VBG pH 7.48 H, VBG pO2 55 H, VBG HCO3 23, VBG O2 Sat (Calc) 91 H , VBG Base Excess 0 Rhythm: EKG: ECHO: Stress Test: Cardiac Cath: PCI: CT Surgery: Holter monitor: EPS: PPM: CXR: Chest CT Scan: Radiography Diagnostic Testing: Radiology Impression Chest X-Ray 10/06/22 07:36 IMPRESSION: Clearing of pneumonia in the left lung and marked improvement of pneumonia in the right lung. Electronically Signed: Akin De Jesus MD at 8:31 EST , Physical Exam Narrative Heart sounds 1 and 2 are normal. Chest clear to auscultation bilaterally. No ankle edema. Assessment & Plan Assessment/Plan (1) Coronary artery disease: PLAN: Non-ST elevation myocardial infarction this admission. Coronary angiography revealed severe disease in the RCA which is heavily calcified. Also mid left circumflex disease, again heavily calcified. Presently asymptomatic. Continue aspirin. Start Plavix. Recommend referral for percutaneous intervention to the RCA and possibly the left circumflex with rotablation. Continue medical therapy in the interim. Continue beta-blockers. Start nitrates. Amlodipine (2) Cardiomyopathy: PLAN: No ANIA inhibitor or ARB's in view of acute kidney injury. Continue hydralazine. Add nitrates. (3) Non-ST elevated myocardial infarction (non-STEMI): PLAN: See #1 above. (4) TREVOR (acute kidney injury): PLAN: On hemodialysis. (5) Benign essential hypertension: PLAN: Blood pressure not at goal. Add amlodipine and nitrates. (6) Diabetes mellitus: QUALIFIERS: Diabetes mellitus type: type 1 Diabetes mellitus complication status: with hyperglycemia Qualified Code(s): E10.65 - Type 1 diabetes mellitus with hyperglycemia PLAN: As per internal medicine/critical care.
--- NOTE | 2022-10-06 12:42 | CASEMGMT ---
ISABEL CM: updated clinicals [facility] to Tiffany at [facility]. Kay Monroe RN CM
[2022-10-06 12:57] LABS: Procalcitonin 1.69 ng/mL (0.00-0.09)
[2022-10-06 13:17] LABS: Reflex Lactate? Y
[2022-10-06] MEDS: Metoclopramide 10 MG/2 ML Vial 5 MG IV ×3 (13:58→23:02)
--- NOTE | 2022-10-06 14:15 | RAD_ITS ---
STUDY: X-RAY CHEST REASON FOR EXAM: Male, 57 years old. Increasing shortness of breath. Evaluate for aspiration. TECHNIQUE: Single frontal view of the chest. COMPARISON: Earlier in the day. FINDINGS: Stable left internal jugular catheter with tip projected over the mid-SVC. Low volume inspiration mild diffuse interstitial pattern, right slightly greater than left, unchanged. There is no demonstrated pleural abnormality. Stable cardiomegaly. Normal mediastinum and aric. Normal visualized pulmonary arteries. Normal visualized aortic arch and descending thoracic aorta. Normal visualized thoracic spine. Normal visualized ribs, clavicles, and shoulders. There is no demonstrated abnormality of the visualized soft tissue structures of the upper abdomen. RAD/Chest 1 View (Portable) IMPRESSION: Stable chest with cardiomegaly, mild diffuse interstitial pattern, right greater than left and no focal consolidation or acute abnormality. Electronically Signed: Jack Nolan, at 14:48 EST ,
--- NOTE | 2022-10-06 14:21 | RAD_ITS ---
STUDY: X-RAY - ABDOMEN/PELVIS REASON FOR EXAM: Male, 57 years old. Nausea and vomiting. TECHNIQUE: Single AP view of the abdomen / pelvis on 2 images. Motion on the study. COMPARISON: None. FINDINGS: Normal visualized lung bases. Normal bowel gas pattern with air seen to the rectosigmoid. There is no demonstrated free abdominal air. The visualized liver, spleen and kidneys are grossly normal in size and morphology. Gastrostomy tube. Normal visualized osseous structures. RAD/Abdomen Single View IMPRESSION: No acute abnormality of the visualized lower chest, abdomen or pelvis. Electronically Signed: Jack Nolan, at 14:49 EST ,
[2022-10-06 14:49] LABS: Lactic Acid 1.8 mmol/L (0.4-1.9)
[2022-10-06 14:56] LABS: Allen Test Positive; Base Excess 0 mmol/L (-2 to +2); Bicarbonate 23.5 mmol/L (22-26); Blood Gas Specimen Type ART; O2 Delivery Device Cannula; PO2 76 mmHG (75-100); SITE L Brach; SO2 96 % (95-99); Total Carbon Dioxide 25 mmol/L; pCO2 31.6 mmHg (35-45); pH 7.48 (7.35-7.45)
--- NOTE | 2022-10-06 15:00 | CASEMGMT ---
RN CM Follow-up: Dr Goode completed peer to peer for LTACH level of care with [facility] physician. Per Dr. Goode, feedback was that LTACH level of care would not be approved unless pt's needs increased. Will review with Tiffany at [facility] for possible appeal option vs proceed with SNF LOC. Reviewed [employer] notes today which indicate pt is a max assist x2 and unable to ambulate any steps. Kay Monroe RN CM
[2022-10-06] MEDS: Dextrose 50%-Water 25 GM/50 ML DISP.SYRIN IV (15:39)
[2022-10-06] MEDS: Furosemide 20 MG/2 ML VIAL IV (15:39)
[2022-10-06 15:46] LABS: Bedside Glucose 81 mg/dL (74-106)
[2022-10-06 16:06] LABS: Bedside Glucose 75 mg/dL (74-106)
[2022-10-06 17:00] LABS: Bedside Glucose 160 mg/dL (74-106)
[2022-10-06 18:48] LABS: Anion Gap 9 (5-15); BUN 45 mg/dL (7-18); BUN/Creat Ratio 8.2 RATIO (10-20); Calcium,Total 8.3 mg/dL (8.5-10.1); Chloride 102 mmol/L (98-107); Creatinine, Serum 5.47 mg/dL (0.70-1.30); EST Glomerular Filtration Rate 12 mL/min (>60); Est Glom Filt Rate - Afr Amer 14 mL/min (>60); Estimated Creatinine Clearance 15.07 ml/min; Glucose 147 mg/dL (74-106); Potassium 3.7 mmol/L (3.5-5.1); Sodium Level 136 mmol/L (136-145)
[2022-10-06 18:56] LABS: Bedside Glucose 139 mg/dL (74-106)
[2022-10-06] MEDS: Latanoprost 0.005% 1 Bottle 1 DRP OPHTHALMIC (20:15)
--- NOTE | 2022-10-06 20:25 | NURSING ---
pt blood sugar 116 . Pt tf on held. oj given down tube
[2022-10-06] MEDS: Isosorbide DN 10 MG Tablet 5 MG PO (20:36)
[2022-10-06] MEDS: Atorvastatin Calcium 40 MG Tablet GT (20:36)
[2022-10-06 21:05] LABS: Bedside Glucose 116 mg/dL (74-106)
[2022-10-07] VITALS (17 sets, daily range): BP systolic 117–167; BP diastolic 64–118; PULSE 85–115; RESP 12–37; TEMP 36.1–37.2; O2SAT 92–99
[2022-10-07] MEDS: Insulin Lispro 100 UNIT/ML INSULN.PEN SC ×9 (01:12→23:42)
[2022-10-07 01:36] LABS: Bedside Glucose 214 mg/dL (74-106)
[2022-10-07 03:49] LABS: Absolute Lymphocyte Count 0.44 X10^3/uL (0.83-4.51); Absolute Neutrophil Count 1.6 X10^3/uL (2.0-7.7); Basophil# 0.06 X10^3/uL; Differential Indicated SCAN CRITERIA MET; Eosinophil# 0.19 X10^3/uL; Eosinophils% 6.5 % (0-5); Hematocrit 24.2 % (40-54); Hemoglobin 7.6 g/dL (13.0-16.5); Lymphocyte # 0.44 X10^3/ul (0.83-4.51); Mean Corp Hgb Conc 31.4 g/dL (32-36); Mean Corpuscular Hgb 29.3 pg (27.0-32.0); Mean Corpuscular Volume 93.4 fL (80-94); Mean Platelet Vol. 11.2 fl (6.2-12.0); Monocyte% 20.4 % (0-10); NRBC Flagged by Analyzer 0 % (0-5); Neutrophil # 1.63 X10^3/uL (2.7-7.7); Neutrophil % 55.4 % (47-70); POSITIVE DIFFERENTIAL YES; Platelet Count 276 K/mm3 (150-450); RBC Distribution Width CV 12.9 % (11.6-14.6); RBC Distribution Width SD 43.9 fl (35.1-43.9); Red Blood Count 2.59 M/mm3 (4.6-6.2); White Blood Count 2.9 K/mm3 (4.4-11.0)
[2022-10-07 04:11] LABS: ALB/GLOB Ratio 0.4 RATIO (0.9-2.4); AST(SGOT) 39 U/L (15-37); Alanine Aminotransfer ALT/SGPT 9 U/L (16-61); Albumin, Serum 1.6 g/dL (3.2-5.0); Alkaline Phosphatase 71 U/L (45-117); Anion Gap 9 (5-15); BUN 51 mg/dL (7-18); BUN/Creat Ratio 8.3 RATIO (10-20); Calcium,Total 8.1 mg/dL (8.5-10.1); Chloride 102 mmol/L (98-107); Creatinine, Serum 6.12 mg/dL (0.70-1.30); EST Glomerular Filtration Rate 10 mL/min (>60); Est Glom Filt Rate - Afr Amer 12 mL/min (>60); Estimated Creatinine Clearance 13.47 ml/min; Globulin 4.4 g/dL (2.2-4.2); Glucose 265 mg/dL (74-106); Potassium 3.8 mmol/L (3.5-5.1); Sodium Level 136 mmol/L (136-145)
[2022-10-07] MEDS: 0.9% Saline Lock 10 ML Syringe IV (05:19)
[2022-10-07] MEDS: Metoclopramide 10 MG/2 ML Vial 5 MG IV ×4 (05:20→23:20)
[2022-10-07] MEDS: Heparin Injection (Vial) 5,000 UNIT/ML VIAL 5000 UNIT SC ×3 (05:20→23:30)
[2022-10-07] MEDS: hydrALAZINE 50 MG Tablet GT ×3 (05:26→23:26)
[2022-10-07 05:51] LABS: Bedside Glucose 278 mg/dL (74-106)
--- NOTE | 2022-10-07 07:42 | PCM.PN.HOSP ---
Subjective Subjective Resting comfortably in bed on BiPAP, still slightly tachypneic but better improved compared to yesterday evening Objective Data Objective Data Vital Signs: Vital Signs Temp Pulse Resp BP Pulse Ox O2 Del Method O2 Flow Rate 99 F 87 26 H 148/118 H 99 Bi-pap 4 10/07/22 03:51 10/07/22 07:00 10/07/22 07:00 10/07/22 05:26 10/07/22 07:00 10/07/22 07:00 10/06/22 15:00 FiO2 30 10/07/22 07:00 Oxygen Flow Rate (L/min) 4 Oxygen Delivery Method Bi-pap Weight: 72.9 kg Body Mass Index (BMI) 25.8 Intake & Output: Intake and Output for Last 24 Hours 10/05/22 10/06/22 10/07/22 23:59 23:59 23:59 Intake Total 2639.94 / 2639.94 2008.75 / 2008.75 200 / 200 Output Total 160 / 160 515 / 515 150 / 150 Balance 2479.94 / 2479.94 1493.75 / 1493.75 50 / 50 Lab / Micro Data Result Diagrams: 10/07/22 03:40 10/07/22 03:40 Labs: Laboratory Results - last 24 hr 10/06/22 09:00: Lactic Acid 3.3 H* 10/06/22 09:00: Urine Color Yellow, Urine Clarity Sl. Cloudy, Urine pH 7.0, Ur Specific [place] 1.010, Urine Protein 500 H, Urine Glucose (UA) 1000 H, Urine Ketones Negative, Urine Occult Blood 250 H, Urine Nitrite Negative, Urine Bilirubin Negative, Urine Urobilinogen Normal, Ur Leukocyte Esterase 25 H, Urine RBC 25-50 SEEN, Urine WBC 0-5 SEEN, Ur Squamous Epith Cells 0-5 SEEN, Urine Bacteria 1+, Urine Mucus 0 SEEN 10/06/22 09:24: POC Glucose 315 H 10/06/22 11:30: Procalcitonin 1.69 H 10/06/22 11:37: POC Glucose 163 H 10/06/22 14:10: Lactic Acid 1.8 10/06/22 14:31: POC Glucose 81 10/06/22 15:33: POC Glucose 75 10/06/22 16:41: POC Glucose 160 H 10/06/22 18:26: POC Glucose 139 H 10/06/22 18:30: Sodium 136, Potassium 3.7, Chloride 102, Carbon Dioxide 25.0, Anion Gap 9, BUN 45 H, Creatinine 5.47 H, Estim Creat Clear Calc 15.07, Est GFR (MDRD) Af Amer 14 L, Est GFR (MDRD) Non-Af 12 L, BUN/Creatinine Ratio 8.2 L, Glucose 147 H, Calcium 8.3 L 10/06/22 20:35: POC Glucose 116 H 10/07/22 01:11: POC Glucose 214 H 10/07/22 03:40: WBC 2.9 L, RBC 2.59 L, Hgb 7.6 L, Hct 24.2 L, MCV 93.4, MCH 29.3, MCHC 31.4 L D, RDW Std Deviation 43.9, RDW Coeff of Jenifer 12.9, Plt Count 276, MPV 11.2, Immature Gran % (Auto) 0.700, Neut % (Auto) 55.4, Lymph % (Auto) 15.0 L, [place] % (Auto) 20.4 H, Eos % (Auto) 6.5 H, Baso % (Auto) 2.0 H, Absolute Neuts (auto) 1.6 L, Absolute Lymphs (auto) 0.44 L, Nucleated RBC % 0, Diff Path Review February10/07/22 03:40: Sodium 136, Potassium 3.8, Chloride 102, Carbon Dioxide 25.0, Anion Gap 9, BUN 51 H, Creatinine 6.12 H, Estim Creat Clear Calc 13.47, Est GFR (MDRD) Af Amer 12 L, Est GFR (MDRD) Non-Af 10 L, BUN/Creatinine Ratio 8.3 L, Glucose 265 H, Calcium 8.1 L, Total Bilirubin 0.50, AST 39 H, ALT 9 L, Alkaline Phosphatase 71, Total Protein 6.0 L, Albumin 1.6 L, Globulin 4.4 H, Albumin/Globulin Ratio 0.4 L 10/07/22 05:23: POC Glucose 278 H Micro: Microbiology 10/06/22 09:00 Nasal Secretion SARS-CoV-2 & FLU Antigen (Rapid) - Final 09/23/22 07:34 Sputum, Tracheal Aspirate Gram Stain - Final 09/23/22 07:34 Sputum, Tracheal Aspirate Respiratory Culture - Final Staphylococcus aureus 09/22/22 07:20 Sputum, Induced/Lukens Gram Stain - Final 09/22/22 07:20 Sputum, Induced/Lukens Respiratory Culture - Final Mixed normal respiratory amparo. No Streptococcus pneumoniae, beta-hemolytic Streptococcus or Staphylococcus aureus isolated. 09/17/22 15:45 Urine, Clean Catch Urine Culture - Final Culture exhibits no growth. 09/16/22 07:05 Nasal Secretion SARS-CoV-2 & FLU Antigen (Rapid) - Final ABG Data ABG results: ABG 10/06/22 10/06/22 11:28 14:49 Specimen Type HUSSAIN ART Sample Site L Brach pH 7.48 H Bicarbonate Actual 23.5 Total CO2 25 Base Excess 0 O2 Saturation 96 ABG pCO2 31.6 L ABG pO2 76 Kev Test Positive VBG pH 7.48 H VBG pO2 55 H VBG HCO3 23 VBG Total CO2 24 VBG O2 Sat (Calc) 91 H VBG Base Excess 0 POC Mix VBG pCO2 Pt Tmp 31.8 L O2 Delivery Device Cannula Liter Flow 4.0 Radiography Diagnostic Testing: Radiology Impression Chest X-Ray 10/06/22 07:36 IMPRESSION: Clearing of pneumonia in the left lung and marked improvement of pneumonia in the right lung. Electronically Signed: Akin De Jesus MD at 8:31 EST , Chest X-Ray 10/06/22 14:15 IMPRESSION: Stable chest with cardiomegaly, mild diffuse interstitial pattern, right greater than left and no focal consolidation or acute abnormality. Electronically Signed: Jack Nolan, at 14:48 EST , KUB X-Ray 10/06/22 14:21 IMPRESSION: No acute abnormality of the visualized lower chest, abdomen or pelvis. Electronically Signed: Jack Nolan, at 14:49 EST , Physical Exam Const Constitutional Narrative: Resting comfortably in bed, no acute distress HEENT normocephalic and head/scalp atraumatic Eyes Eyes Narrative: EOM grossly intact, anicteric Neck supple Resp Resp Narrative: Slight increased work of breathing, no wheezes appreciated Cardio regular rate and regular rhythm GI soft to palpation, non-tender and non-distended Extremity Extremity Narrative: No edema appreciated Neuro moves all extremities Neuro Narrative: No overt focal deficits appreciated Psych Psych Narrative: Cooperative Assessment & Plan Assessment/Plan (1) Non-ST elevated myocardial infarction (non-STEMI): (2) Acute renal failure: (3) Hypertensive emergency: (4) 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 Pancultures Will start broad-spectrum antibiotics pending culture results Respiratory panel ordered as well 10/07: Cultures pending, on Vanco and Zosyn, O2 sat 99%, tachypnea improving. Is leukopenic today, will monitor may need to repeat to verify. #DKA in the setting of 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 with long-term current use of insulin?resolved Currently only on sliding scale insulin and having worsening glucoses but they are widely variable and not consistent which makes titration difficult Will start a basal insulin conservatively at 5 and trend, will likely need further titration but given extreme highs followed by glucose in the 160s concern for hypoglycemia 10/04: Glucoses have escalated, will increase long-acting and start Premeal in addition to sliding scale, will check BMP at this afternoon to assure no gap opens with his persistent elevation 10/05: Had escalating glucose despite increasing insulin, Increased on BMP and he was placed on insulin drip in the ICU. Gap is closed and he is doing well, calculated daily requirement and have added 25 units of long-acting insulin with 10 units every 4 prandial tube feeds and every 4 sliding scale insulin. Continue to monitor BMPs 10/06: Glucose may have significantly elevated due to underlying infection, glucose still widely variable and did have a low yesterday evening that a.m. glucose of 315, 1 to avoid hypoglycemia however, will further decrease insulin with meals 10/07: Continue to adjust insulin, with vomiting yesterday tube feeds were put on hold so we will not need every 4 hours sliding scale when this is held, will likely need to start back on lower feeds given his vomiting of tube feeds and concern for aspiration. Speech and dietary following #TREVOR requiring dialysis Nephrology following Has left-sided tunneled hemodialysis catheter, also has PEG tube Still making urine but kidney function is not recovering yet Continue dialysis per nephrology recommendations 10/05: Nephrology following 10/06: Dialysis 10/05 completed 10/07: Nephrology following #NSTEMI Had cardiac cath this admission which showed diffusely diseased 2 vessels with LV systolic dysfunction with an LV gram EF of 40%. It was recommended tertiary care transfer referral for targeted PCI after he is stabilized. 09/30 attempted to transfer but they were not excepting transfers at this time. Previous hospitalist discussed with cardiology and it was agreed that he could continue medical management with outpatient follow-up with cardiac surgeon. Coreg, aspirin, atorvastatin Cardiology following #Cardiomyopathy Unclear etiology Did have echo here on 09/16 with an EF of 35% and stage III diastolic dysfunction and moderate to severe global hypokinesis of the left ventricle On Coreg Cannot tolerate ANIA/ARB due to kidney function #Hypertension Continue to adjust antihypertensives, Coreg increased on 10/04 Nephrology recommended to hold hydralazine and Coreg on the mornings of dialysis, added instructions #Congenital deafness Reads lips and writes on paper #Acute hypoxic respiratory failure resolved Was intubated in the ICU and has since been extubated #DVT ppx: No longer on systemic anticoagulation so started heparin subcu Susu Goode MD Charges/Coding Visit Charges Inpatient E&M: 59085 Subs Hosp L2
--- NOTE | 2022-10-07 07:48 | NURSING ---
skip hoist operator at bedside preparing for treatment.
--- NOTE | 2022-10-07 10:00 | CASEMGMT ---
ISABEL CAMARA Follow-up: Per Tiffany at [facility], appeal is being submitted by them for LTACH level of care. Dr. Sanchez signed fax cover sheet for submission. Kay Monroe RN CM
[2022-10-07] MEDS: Acetaminophen 650 MG/20 ML UDC GT (10:10)
--- NOTE | 2022-10-07 11:09 | PCM.PN.REN ---
Subjective Subjective Seen and examined while on dialysis. No overnight events. Objective Data Objective Data Vital Signs: Vital Signs Temp Pulse Resp BP Pulse Ox O2 Del Method O2 Flow Rate 99 F 85 26 H 148/118 H 99 Bi-pap 4 10/07/22 03:51 10/07/22 07:04 10/07/22 07:00 10/07/22 05:26 10/07/22 07:00 10/07/22 07:00 10/06/22 15:00 FiO2 30 10/07/22 07:00 Oxygen Flow Rate (L/min) 4 Oxygen Delivery Method Bi-pap Weight: 72.9 kg Body Mass Index (BMI) 25.8 Intake & Output: Intake and Output for Last 24 Hours 10/05/22 10/06/22 10/07/22 23:59 23:59 23:59 Intake Total 2639.94 / 2639.94 2008.75 / 2007.75 200 / 200 Output Total 160 / 160 515 / 515 150 / 150 Balance 2479.94 / 2479.94 1493.75 / 1493.75 50 / 50 Lab / Micro Data Result Diagrams: 10/07/22 03:40 10/07/22 03:40 Labs: Laboratory Results - last 24 hr 10/06/22 11:30: Procalcitonin 1.69 H 10/06/22 11:37: POC Glucose 163 H 10/06/22 14:10: Lactic Acid 1.8 10/06/22 14:31: POC Glucose 81 10/06/22 15:33: POC Glucose 75 10/06/22 16:41: POC Glucose 160 H 10/06/22 18:26: POC Glucose 139 H 10/06/22 18:30: Sodium 136, Potassium 3.7, Chloride 102, Carbon Dioxide 25.0, Anion Gap 9, BUN 45 H, Creatinine 5.47 H, Estim Creat Clear Calc 15.07, Est GFR (MDRD) Af Amer 14 L, Est GFR (MDRD) Non-Af 12 L, BUN/Creatinine Ratio 8.2 L, Glucose 147 H, Calcium 8.3 L 10/06/22 20:35: POC Glucose 116 H 10/07/22 01:11: POC Glucose 214 H 10/07/22 03:40: WBC 2.9 L, RBC 2.59 L, Hgb 7.6 L, Hct 24.2 L, MCV 93.4, MCH 29.3, MCHC 31.4 L D, RDW Std Deviation 43.9, RDW Coeff of Jenifer 12.9, Plt Count 276, MPV 11.2, Immature Gran % (Auto) 0.700, Neut % (Auto) 55.4, Lymph % (Auto) 15.0 L, [place] % (Auto) 20.4 H, Eos % (Auto) 6.5 H, Baso % (Auto) 2.0 H, Absolute Neuts (auto) 1.6 L, Absolute Lymphs (auto) 0.44 L, Nucleated RBC % 0, Diff Path Review February10/07/22 03:40: Sodium 136, Potassium 3.8, Chloride 102, Carbon Dioxide 25.0, Anion Gap 9, BUN 51 H, Creatinine 6.12 H, Estim Creat Clear Calc 13.47, Est GFR (MDRD) Af Amer 12 L, Est GFR (MDRD) Non-Af 10 L, BUN/Creatinine Ratio 8.3 L, Glucose 265 H, Calcium 8.1 L, Total Bilirubin 0.50, AST 39 H, ALT 9 L, Alkaline Phosphatase 71, Total Protein 6.0 L, Albumin 1.6 L, Globulin 4.4 H, Albumin/Globulin Ratio 0.4 L 10/07/22 05:23: POC Glucose 278 H Micro: Microbiology 10/06/22 15:10 Sputum, Induced/Lukens Gram Stain - Final 10/06/22 15:10 Sputum, Induced/Lukens Respiratory Culture - Preliminary Appears to be normal respiratory amparo. Further studies to follow. 10/06/22 09:00 Urine Catheter - Lopez Urine Culture - Preliminary Culture exhibits no growth. 10/06/22 09:00 Nasal Secretion SARS-CoV-2 & FLU Antigen (Rapid) - Final 09/23/22 07:34 Sputum, Tracheal Aspirate Gram Stain - Final 09/23/22 07:34 Sputum, Tracheal Aspirate Respiratory Culture - Final Staphylococcus aureus 09/22/22 07:20 Sputum, Induced/Lukens Gram Stain - Final 09/22/22 07:20 Sputum, Induced/Lukens Respiratory Culture - Final Mixed normal respiratory amparo. No Streptococcus pneumoniae, beta-hemolytic Streptococcus or Staphylococcus aureus isolated. 09/17/22 15:45 Urine, Clean Catch Urine Culture - Final Culture exhibits no growth. 09/16/22 07:05 Nasal Secretion SARS-CoV-2 & FLU Antigen (Rapid) - Final ABG Data ABG results: ABG 10/06/22 10/06/22 11:28 14:49 Specimen Type HUSSAIN ART Sample Site L Brach pH 7.48 H Bicarbonate Actual 23.5 Total CO2 25 Base Excess 0 O2 Saturation 96 ABG pCO2 31.6 L ABG pO2 76 Kev Test Positive VBG pH 7.48 H VBG pO2 55 H VBG HCO3 23 VBG Total CO2 24 VBG O2 Sat (Calc) 91 H VBG Base Excess 0 POC Mix VBG pCO2 Pt Tmp 31.8 L O2 Delivery Device Cannula Liter Flow 4.0 Radiography Diagnostic Testing: Radiology Impression Chest X-Ray 10/06/22 14:15 IMPRESSION: Stable chest with cardiomegaly, mild diffuse interstitial pattern, right greater than left and no focal consolidation or acute abnormality. Electronically Signed: Jack Nolan, at 14:48 EST , KUB X-Ray 10/06/22 14:21 IMPRESSION: No acute abnormality of the visualized lower chest, abdomen or pelvis. Electronically Signed: Jack Nolan, at 14:49 EST , Physical Exam Narrative Const: Alert and oriented x3, no apparent distress Cardio: S1, S2, RRR Respiratory: Lung sounds clear anteriorly and posteriorly, no wheezes, rhonchi or rales noted Abdomen: Soft, nontender Extremities: No pitting edema noted bilateral legs, feet or arms Tunneled HD catheter left chest dressing clean, dry and intact Const Constitutional Narrative: Patient is deaf Assessment & Plan Assessment/Plan (1) TREVOR (acute kidney injury): (2) Benign essential hypertension: (3) Type 1 diabetes: (4) CKD (chronic kidney disease): PLAN: Plan - Baseline renal function is unclear serum creatinine was 1.60 mg/dL in 2020.? The last available serum creatinine in [facility] was from 04/22/2014 at 1.3 mg/dL. Suspect the patient has underlying diabetic kidney disease.? He is proteinuric in nephrotic range and has had longstanding, poorly controlled diabetes with retinopathy. Serologies including ANCA, C3, and C4 are negative.? Immunofixation is negative for monoclonal protein. It is possible that we are seeing progression of diabetic kidney disease towards ESRD. Unfortunately, biopsy could not be done because of patient's respiratory status and anxiety. Patient had cardiac catheterization 09/28: Significant diffuse two-vessel disease.? Echo: EF 35% with stage III diastolic dysfunction and pulmonary hypertension Blood pressures acceptable, please hold carvedilol and hydralazine mornings of dialysis. Reviewed CXR from today showing improvement. Patient still has good Urine output and can take lasix on non-HD days. Outpatient dialysis arrangements Wednesday at [facility]. Patient to dialyze today and attempting ~1L UF. EDW not established yet but seems to be nearing a dry weight. Giving lasix on non-hd days. leukopenic today, repeat labs ordered for am. BC pending D/w Dr. Goode
--- NOTE | 2022-10-07 11:40 | PCM.PN.CARD ---
Subjective Subjective Denies any complaints. Undergoing hemodialysis. Objective Data Vital Signs: Vital Signs Temp Pulse Resp BP Pulse Ox O2 Del Method O2 Flow Rate 99 F 85 26 H 148/118 H 99 Bi-pap 4 10/07/22 03:51 10/07/22 07:04 10/07/22 07:00 10/07/22 05:26 10/07/22 07:00 10/07/22 07:00 10/06/22 15:00 FiO2 30 10/07/22 07:00 Oxygen Flow Rate (L/min) 4 Oxygen Delivery Method Bi-pap Weight: 160 lb 11.472 oz Body Mass Index (BMI) 25.8 Intake & Output: Intake and Output for Last 24 Hours 10/05/22 10/06/22 10/07/22 23:59 23:59 23:59 Intake Total 2639.94 / 2639.94 2008.75 / 2007.75 200 / 200 Output Total 160 / 160 515 / 515 150 / 150 Balance 2479.94 / 2479.94 1493.75 / 1493.75 50 / 50 Lab / Micro Data Result Diagrams: 10/07/22 03:40 10/07/22 03:40 Labs: Laboratory Results - last 24 hr 10/06/22 11:30: Procalcitonin 1.69 H 10/06/22 11:37: POC Glucose 163 H 10/06/22 14:10: Lactic Acid 1.8 10/06/22 14:31: POC Glucose 81 10/06/22 15:33: POC Glucose 75 10/06/22 16:41: POC Glucose 160 H 10/06/22 18:26: POC Glucose 139 H 10/06/22 18:30: Sodium 136, Potassium 3.7, Chloride 102, Carbon Dioxide 25.0, Anion Gap 9, BUN 45 H, Creatinine 5.47 H, Estim Creat Clear Calc 15.07, Est GFR (MDRD) Af Amer 14 L, Est GFR (MDRD) Non-Af 12 L, BUN/Creatinine Ratio 8.2 L, Glucose 147 H, Calcium 8.3 L 10/06/22 20:35: POC Glucose 116 H 10/07/22 01:11: POC Glucose 214 H 10/07/22 03:40: WBC 2.9 L, RBC 2.59 L, Hgb 7.6 L, Hct 24.2 L, MCV 93.4, MCH 29.3, MCHC 31.4 L D, RDW Std Deviation 43.9, RDW Coeff of Jenifer 12.9, Plt Count 276, MPV 11.2, Immature Gran % (Auto) 0.700, Neut % (Auto) 55.4, Lymph % (Auto) 15.0 L, [place] % (Auto) 20.4 H, Eos % (Auto) 6.5 H, Baso % (Auto) 2.0 H, Absolute Neuts (auto) 1.6 L, Absolute Lymphs (auto) 0.44 L, Nucleated RBC % 0, Diff Path Review February10/07/22 03:40: Sodium 136, Potassium 3.8, Chloride 102, Carbon Dioxide 25.0, Anion Gap 9, BUN 51 H, Creatinine 6.12 H, Estim Creat Clear Calc 13.47, Est GFR (MDRD) Af Amer 12 L, Est GFR (MDRD) Non-Af 10 L, BUN/Creatinine Ratio 8.3 L, Glucose 265 H, Calcium 8.1 L, Total Bilirubin 0.50, AST 39 H, ALT 9 L, Alkaline Phosphatase 71, Total Protein 6.0 L, Albumin 1.6 L, Globulin 4.4 H, Albumin/Globulin Ratio 0.4 L 10/07/22 05:23: POC Glucose 278 H Micro: Microbiology 10/06/22 15:10 Sputum, Induced/Lukens Gram Stain - Final 10/06/22 15:10 Sputum, Induced/Lukens Respiratory Culture - Preliminary Appears to be normal respiratory amparo. Further studies to follow. 10/06/22 09:00 Urine Catheter - Lopez Urine Culture - Preliminary Culture exhibits no growth. 10/06/22 09:00 Nasal Secretion SARS-CoV-2 & FLU Antigen (Rapid) - Final ABG Data ABG results: ABG 10/06/22 14:49 Specimen Type ART Sample Site L Brach pH 7.48 H Bicarbonate Actual 23.5 Total CO2 25 Base Excess 0 O2 Saturation 96 ABG pCO2 31.6 L ABG pO2 76 Kev Test Positive O2 Delivery Device Cannula Liter Flow 4.0 Cardiology Labs/Tests 10/06/22 14:10: Lactic Acid 1.8 10/06/22 14:49: pH 7.48 H, Bicarbonate Actual 23.5, Base Excess 0, O2 Saturation 96, ABG pCO2 31.6 L, ABG pO2 76, Kev Test Positive 10/06/22 18:30: Sodium 136, Potassium 3.7, Chloride 102, Carbon Dioxide 25.0, Anion Gap 9, BUN 45 H, Creatinine 5.47 H, Est GFR (MDRD) Af Amer 14 L, Est GFR (MDRD) Non-Af 12 L, BUN/Creatinine Ratio 8.2 L, Glucose 147 H, Calcium 8.3 L 10/07/22 03:40: WBC 2.9 L, RBC 2.59 L, Hgb 7.6 L, Hct 24.2 L, MCV 93.4, MCH 29.3, MCHC 31.4 L D, Plt Count 276, MPV 11.2, Immature Gran % (Auto) 0.700, Neut % (Auto) 55.4, Lymph % (Auto) 15.0 L, [place] % (Auto) 20.4 H, Eos % (Auto) 6.5 H, Baso % (Auto) 2.0 H, Absolute Neuts (auto) 1.6 L, Nucleated RBC % 0 10/07/22 03:40: Sodium 136, Potassium 3.8, Chloride 102, Carbon Dioxide 25.0, Anion Gap 9, BUN 51 H, Creatinine 6.12 H, Est GFR (MDRD) Af Amer 12 L, Est GFR (MDRD) Non-Af 10 L, BUN/Creatinine Ratio 8.3 L, Glucose 265 H, Calcium 8.1 L, Total Bilirubin 0.50 Rhythm: EKG: ECHO: Stress Test: Cardiac Cath: PCI: CT Surgery: Holter monitor: EPS: PPM: CXR: Chest CT Scan: Radiography Diagnostic Testing: Radiology Impression Chest X-Ray 10/06/22 14:15 IMPRESSION: Stable chest with cardiomegaly, mild diffuse interstitial pattern, right greater than left and no focal consolidation or acute abnormality. Electronically Signed: Jack Nolan, at 14:48 EST , KUB X-Ray 10/06/22 14:21 IMPRESSION: No acute abnormality of the visualized lower chest, abdomen or pelvis. Electronically Signed: Jack Nolan, at 14:49 EST , Physical Exam Narrative Comfortable. Heart sounds 1 and 2 noted. Chest decreased breath sounds bilateral bases. Assessment & Plan Assessment/Plan (1) Coronary artery disease: PLAN: Non-ST elevation myocardial infarction this admission. Coronary angiography revealed severe disease in the RCA which is heavily calcified. Also mid left circumflex disease, again heavily calcified. Presently asymptomatic. Continue aspirin. Start Plavix. Recommend referral for percutaneous intervention to the RCA and possibly the left circumflex with rotablation. Continue medical therapy in the interim. Continue beta-blockers, nitrates and amlodipine. Decreased hemoglobin noted. Stop heparin infusion if no other indication. (2) Cardiomyopathy: PLAN: No ANIA inhibitor or ARB's in view of acute kidney injury. Continue hydralazine. Add nitrates. (3) Non-ST elevated myocardial infarction (non-STEMI): PLAN: See #1 above. (4) TREVOR (acute kidney injury): PLAN: On hemodialysis. (5) Benign essential hypertension: PLAN: Blood pressure not at goal. Add amlodipine and nitrates. (6) Diabetes mellitus: QUALIFIERS: Diabetes mellitus type: type 1 Diabetes mellitus complication status: with hyperglycemia Qualified Code(s): E10.65 - Type 1 diabetes mellitus with hyperglycemia PLAN: As per internal medicine/critical care.
[2022-10-07 12:23] LABS: Pathologist Review Reviewed
[2022-10-07] MEDS: Aspirin E.C. 81 MG Tablet PO (12:23)
[2022-10-07] MEDS: Carvedilol 25 MG Tablet GT ×2 (12:24→23:25)
[2022-10-07] MEDS: Menthol/Lanolin/Calamine/Znox 113 GM Tube 1 APPLIC TOPICAL ×2 (12:24→23:23)
[2022-10-07] MEDS: Dorzolamide HCL/Timolol 10 ml Bottle 1 DRP OPHTHALMIC ×2 (12:24→23:24)
[2022-10-07] MEDS: Isosorbide DN 10 MG Tablet 5 MG PO ×2 (12:26→23:25)
[2022-10-07] MEDS: Insulin Glargine-YFGN 100 UNIT/ML Pen 25 UNIT SC (12:26)
[2022-10-07] MEDS: Clopidogrel Bisulfate 75 MG Tablet PO (12:27)
[2022-10-07] MEDS: amLODIPine 5 MG Tablet PO (12:27)
[2022-10-07 13:05] LABS: Bedside Glucose 223 mg/dL (74-106)
--- NOTE | 2022-10-07 14:41 | SP.MBSS_ITS ---
Modified Barium Swallow - Patient Information Study Date: 10/07/22 Study Time: 13:30 Direct Billable Minutes: 120 Total Minutes procedure & reportin Diagnosis: Dysphagia (R13.10), Acute respiratory failure w/hypoxia (J96.01) Referring Physician: Susu Goode Reason for Referral: Objectively assess swallow function, assess risk for aspiration, and determine recommendations for least restrictive diet textures and compensatory strategies to improve safety of swallow. Medical History: The patient is a 57-year-old male with PMH including congenital deafness, diabetes, HTN, hx of stroke, vision problem, and HLD who presented to [facility] 09/16/2022 with chest pain and shortness of breath. He was admitted initially for management of NSTEMI, acute renal failure, hypertensive emergency, and acute respiratory failure with hypoxia amongst other comorbidities. As the patient is deaf, all communication with the patient has been via written messages. Patient was evaluated by speech therapy at bedside 09/20/2022 and placed on Easy to Chew textures / Thin liquids with plans for MBSS 09/22/2022; however, 09/22/2022 he was unavailable for MBSS due to surgery planned for placement of dialysis catheter. Prior to surgery, he became unstable from a pulmonary standpoint and required initially BIPAP, but then intubation. He was transferred to ICU. Once extubated 09/29/2022, ST was re-consulted to re-assess swallow function. He was recommended strict NPO and followed daily for trials of oral intake with WEATHERIZATION SPECIALIST. PEG tube was placed to meet primary nutrition and hydration needs. Pt was deemed appropriate for MBSS 10/07/[address] after completing trials of oral intake without emesis following ? coughing was evident with thin water and ice, but no overt s/s of aspiration with applesauce trials. Current Diet Ordered: NPO Dentition: Natural Teeth Mental Status: Impaired - Concern for comprehension deficits. SEE impressions below. Respiratory Status: Oxygenating on Room Air - Penetration-Aspiration Scale Penetration-Aspiration Scale: OBJECTIVE ASSESSMENT OF SWALLOW FUNCTION (QUANTITATIVE ? PER TRIAL): PENETRATION / ASPIRATION SCALE (DEWITT): 1 = does not enter airway 2 = enters airway/above vocal folds/ejected 3 = enters airway/above vocal folds/not ejected 4 = enters airway/contacts vocal folds/ejected 5 = enters airway/contacts vocal folds/not ejected 6 = enters airway/below vocal folds/ejected 7 = enters airway/below vocal folds/not ejected despite effort 8 = enters airway/below vocal folds/no effort VIDEOFLOROSCOPIC SCALE SCORE (DEWITT): Grade I = aspiration of material that has penetrated into the laryngeal vestibule, intact cough reflex Grade II = aspiration < 10 % of the bolus, intact cough reflex Grade III = aspiration of < 10 % of the bolus, reduced cough reflex or aspiration of > 10 % of the bolus, intact cough reflex Grade IV = aspiration of > 10 % of the bolus, reduced cough reflex - Penetration-Aspiration Scale Score Thin Liquid via teaspoon Comment: Unable to score due to the YUNIEL machine experiencing a recording error. Coughing evident immediately following the swallow. Thin Liquid via teaspoon Trial 2 Result: 7= enters airways/below vocal folds/not ejected despite effort [place] Thick Liquid via teaspoon Result: 5= enters airways/contacts vocal folds/not ejected Honey Thick Liquid via teaspoon Result: 7= enters airways/below vocal folds/not ejected despite effort Pudding via teaspoon Result: 1= does not enter airway - Poor pharyngeal clearance. ~50% of the bolus remained in the pharynx after the study. Patient independently performed 2 swallows to clear oral cavity of pudding; however, he was unable to complete additional swallows in attempt to clear residue from the pharynx despite max written cues from WEATHERIZATION SPECIALIST. - Oral Phase Labial Seal: Escape beyond interlabial space; no extension beyond kennedi border Tongue Control During Bolus Hold: Posterior escape of greater than half of bolus Bolus Transport/Lingual Motion: Slowed tongue motion Oral Residue: Residue collection on oral structures - Pharyngeal Phase Initiation of Pharyngeal Swallow: Bolus head in pyriforms Soft Palate Elevation: No bolus between soft palate and pharyngeal wall Laryngeal Elevation: Partial superior movement thyroid cart/partial apprx aryt- epig petiole Anterior Hyoid Excursion: No anterior movement - minimal to no anterior movement across various trial Epiglottic Movement: Partial inversion - minimal to no anterior movement across various trials Laryngeal Vestibule Closure at Height of Swallow: Incomplete; narrow column of air/contrast in laryngeal vestibule Pharyngeal Stripping Wave: Present - diminished Pharyngoesophageal Segment Opening: Minimal distension and minimal duration; marked obstruction of flow Tongue Base Retraction: Wide column of contrast between tongue base & post. pharyngeal wall Pharyngeal Residue: Majority of contrast within or on pharyngeal structures - ~50% of pudding bolus in pharynx after two swallows - Diagnosis/Impression Diagnosis: Severe oropharyngeal phase dysphagia (R13.12) Impression: The oral phase is primarily marked by... -Decreased bolus control with >1/2 of thin liquid bolus spilling posteriorly to the pyriforms prior to swallow onset. -Slowed tongue motion for A-P transport -Collection of oral residue of pudding after the first swallow, which mostly cleared with independent initiation of a second swallow. -Did not complete cookie trial due to concerns for choking due to decreased bolus control and poor pharyngeal clearance. The pharyngeal phase is primarily marked by... -Decreased airway closure during the swallow due to little to no anterior hyoid excursion, little epiglottic inversion, and decreased laryngeal elevation. -Moderately-severely decreased tongue base retraction, decreased pharyngeal contraction, and moderately decreased UES opening/duration with resulting moderate-severe pharyngeal residues after the swallow. -Aspiration of thin liquids by tsp (during the swallow) and honey thick liquids by tsp (after the swallow). Laryngal penetration of nectar thick liquids to the vocal folds without full ejection despite cough reflex. -Patient is also at high risk to aspirate pudding thick consistencies after the swallow due to poor pharyngeal clearance (~50% of the bolus remaining in the pharynx after two swallows). WEATHERIZATION SPECIALIST provided the patient max written cues to attempt additional swallows to clear pharyngeal residue; however, patient was either unable to comprehend the command or unable to initiate a dry swallow. Would consider the patient for cognitive-linguistic assessment in upcoming sessions if persisting concerns for comprehension deficits, especially upon implementing oropharyngeal exercise program. - Recommendations Diet: NPO - Strict NPO - utilize PEG tube to meet primary nutrition and hydration needs Recommend Repeat Modified Barium Swallow: Yes - Repeat MBSS in 4-6 weeks after implementation of intensive oropharyngeal exercise program. Need for Skilled Speech Therapy Services: Yes Comment: Will recommend the patient for intensive dysphagia therapy to address severe deficits in oropharyngeal swallow function. Will recommend the patient for oropharyngeal strengthening to improve lingual strength, laryngeal elevation, hyoid excursion, pharyngeal contraction, and tongue base retraction (lingual resistance exercises, CTAR, effortful swallows, Sade). Will additionally recommend the patient for trials of purees with WEATHERIZATION SPECIALIST ONLY. Would recommend repeat MBSS prior to diet advancement. Would consider the patient for cognitive- linguistic assessment in upcoming sessions if persisting concerns for comprehension deficits, especially upon implementing oropharyngeal exercise program. Education Completed: 1. Described result of evaluation., 7. Pt requires further education on strategies & risks. - WEATHERIZATION SPECIALIST wrote and presented results/recommendations of MBSS to the patient. He requires further education. - Status Active ST Patient: Active - Contact Information [facility] Speech Therapy:: Marta Su M.A. [facility]-WEATHERIZATION SPECIALIST Speech-Language Pathologist [facility] [address] [place] [address] [email or web address] [phone] 10/07/22 15:10
[2022-10-07] MEDS: NEPRO TUBE FEED 1,000 ML 20 ML GT (15:12)
[2022-10-07 15:51] LABS: Bedside Glucose 151 mg/dL (74-106)
--- NOTE | 2022-10-07 16:58 | DIALYSIS ---
Patient completed treatment as ordered. UF 800 ml this day. Report given to Meche siegel.
[2022-10-07] MEDS: Vancomycin IV 500 MG/100 ML BAG 100 MG IV (17:18)
[2022-10-07 17:55] LABS: Bedside Glucose 119 mg/dL (74-106)
--- NOTE | 2022-10-07 22:50 | CPS ---
Pt refused bipap at this time
[2022-10-07] MEDS: Latanoprost 0.005% 1 Bottle 1 DRP OPHTHALMIC (23:24)
[2022-10-07] MEDS: Atorvastatin Calcium 40 MG Tablet GT (23:24)
[2022-10-08] VITALS (12 sets, daily range): BP systolic 122–155; BP diastolic 60–86; PULSE 71–98; RESP 16–18; TEMP 36.5–37.2; O2SAT 93–97
[2022-10-08 01:16] LABS: Bedside Glucose 149 mg/dL (74-106)
[2022-10-08] MEDS: Insulin Lispro 100 UNIT/ML INSULN.PEN SC ×8 (02:19→23:41)
[2022-10-08 02:45] LABS: Bedside Glucose 135 mg/dL (74-106)
[2022-10-08 05:11] LABS: Absolute Lymphocyte Count 0.75 X10^3/uL (0.83-4.51); Absolute Neutrophil Count 0.8 X10^3/uL (2.0-7.7); Basophil# 0.07 X10^3/uL; Hemoglobin 7.8 g/dL (13.0-16.5); Lymphocyte # 0.75 X10^3/ul (0.83-4.51); Lymphocyte % 21.1 % (19-41); Mean Corp Hgb Conc 32.5 g/dL (32-36); Mean Corpuscular Hgb 30.7 pg (27.0-32.0); Mean Corpuscular Volume 94.5 fL (80-94); Mean Platelet Vol. 11.4 fl (6.2-12.0); Monocyte# 0.82 X10^3/uL; Monocyte% 23.1 % (0-10); NRBC Flagged by Analyzer 0 % (0-5); Neutrophil % 22.5 % (47-70); POSITIVE DIFFERENTIAL YES; Platelet Count 328 K/mm3 (150-450); RBC Distribution Width CV 12.7 % (11.6-14.6); RBC Distribution Width SD 43.9 fl (35.1-43.9); Red Blood Count 2.54 M/mm3 (4.6-6.2); White Blood Count 3.6 K/mm3 (4.4-11.0)
[2022-10-08 05:14] LABS: Differential Indicated SCAN CRITERIA MET
[2022-10-08] MEDS: Metoclopramide 10 MG/2 ML Vial 5 MG IV ×4 (05:23→23:54)
[2022-10-08] MEDS: Heparin Injection (Vial) 5,000 UNIT/ML VIAL 5000 UNIT SC ×3 (05:23→23:40)
[2022-10-08] MEDS: hydrALAZINE 50 MG Tablet GT ×3 (05:23→23:25)
[2022-10-08 05:58] LABS: ALB/GLOB Ratio 0.4 RATIO (0.9-2.4); AST(SGOT) 25 U/L (15-37); Alanine Aminotransfer ALT/SGPT 9 U/L (16-61); Albumin, Serum 1.6 g/dL (3.2-5.0); Alkaline Phosphatase 73 U/L (45-117); Anion Gap 7 (5-15); BUN 31 mg/dL (7-18); BUN/Creat Ratio 6.7 RATIO (10-20); Calcium,Total 8.5 mg/dL (8.5-10.1); Chloride 104 mmol/L (98-107); Creatinine, Serum 4.66 mg/dL (0.70-1.30); EST Glomerular Filtration Rate 14 mL/min (>60); Est Glom Filt Rate - Afr Amer 17 mL/min (>60); Estimated Creatinine Clearance 17.82 ml/min; Globulin 4.5 g/dL (2.2-4.2); Glucose 130 mg/dL (74-106); Magnesium 2.2 mg/dL (1.6-2.6); Phosphorus 3.2 mg/dL (2.5-4.9); Potassium 3.4 mmol/L (3.5-5.1); Protein, Total 6.1 g/dL (6.4-8.2); Sodium Level 139 mmol/L (136-145)
[2022-10-08 06:14] LABS: Macrocytosis RARE
[2022-10-08 06:55] LABS: Bedside Glucose 149 mg/dL (74-106)
--- NOTE | 2022-10-08 08:45 | CASEMGMT ---
ISABEL CAMARA sent updated clinicals to [facility] as requested through [facility].
--- NOTE | 2022-10-08 09:56 | PN.RENAL_ITS ---
Documented by User: ZELDA Watts 10/08/22 10:04 Subjective Subjective Resting quietly in bed, no overnight events Objective Data Objective Data Vital Signs: Vital Signs Temp Pulse Resp BP Pulse Ox O2 Del Method O2 Flow Rate 97.7 F L 71 18 137/74 H 95 Nasal Cannula 2 10/08/22 05:15 10/08/22 07:00 10/08/22 05:15 10/08/22 05:15 10/08/22 05:15 10/08/22 05:15 10/08/22 05:15 FiO2 30 10/07/22 07:00 Oxygen Flow Rate (L/min) 2 Oxygen Delivery Method Nasal Cannula Weight: 73.2 kg Body Mass Index (BMI) 25.8 Intake & Output: Intake and Output for Last 24 Hours 10/06/22 10/07/22 10/08/22 23:59 23:59 23:59 Intake Total 2007.75 / 2007.75 908 / 908 520 / 520 Output Total 515 / 515 550 / 550 100 / 100 Balance 1493.75 / 1493.75 358 / 358 420 / 420 Lab / Micro Data Result Diagrams: 10/09/22 06:00 10/09/22 14:20 Labs: Laboratory Results - last 24 hr 10/07/22 03:40: Diff Path Review Reviewed 10/07/22 12:20: POC Glucose 223 H 10/07/22 15:10: POC Glucose 151 H 10/07/22 17:17: POC Glucose 119 H 10/07/22 23:41: POC Glucose 149 H 10/08/22 02:19: POC Glucose 135 H 10/08/22 04:35: WBC 3.6 L, RBC 2.54 L, Hgb 7.8 L, Hct 24.0 L, MCV 94.5 H, MCH 30.7, MCHC 32.5, RDW Std Deviation 43.9, RDW Coeff of Jenifer 12.7, Plt Count 328, MPV 11.4, Immature Gran % (Auto) 0.300, Neut % (Auto) 22.5 L, Lymph % (Auto) 21.1, [place] % (Auto) 23.1 H, Eos % (Auto) 31.0 H, Baso % (Auto) 2.0 H, Absolute Neuts (auto) 0.8 L, Absolute Lymphs (auto) 0.75 L, Nucleated RBC % 0, Macrocytosis RARE 10/08/22 04:35: Sodium 139, Potassium 3.4 L, Chloride 104, Carbon Dioxide 28.0, Anion Gap 7, BUN 31 H, Creatinine 4.66 H, Estim Creat Clear Calc 17.82, Est GFR (MDRD) Af Amer 17 L, Est GFR (MDRD) Non-Af 14 L, BUN/Creatinine Ratio 6.7 L, Glucose 130 H, Calcium 8.5, Phosphorus 3.2, Magnesium 2.2, Total Bilirubin 0.30, AST 25, ALT 9 L, Alkaline Phosphatase 73, Total Protein 6.1 L, Albumin 1.6 L, Globulin 4.5 H, Albumin/Globulin Ratio 0.4 L 10/08/22 05:30: POC Glucose 149 H Micro: Microbiology 10/06/22 15:10 Sputum, Induced/Lukens Gram Stain - Final 10/06/22 15:10 Sputum, Induced/Lukens Respiratory Culture - Preliminary Appears to be normal respiratory amparo. Further studies to follow. 10/06/22 09:00 Urine Catheter - Lopez Urine Culture - Final Culture exhibits no growth. 10/06/22 09:30 Blood Culture (Wb) - Anticubital Left Blood Culture - Preliminary No growth in 48 hours. 10/06/22 09:00 Blood Culture (Wb) - Anticubital Right Blood Culture - Preliminary No growth in 48 hours. 10/06/22 09:00 Mucosa - Nasopharyngeal Respiratory Panel (PCR) - Final 10/06/22 09:00 Nasal Secretion SARS-CoV-2 & FLU Antigen (Rapid) - Final 09/23/22 07:34 Sputum, Tracheal Aspirate Gram Stain - Final 09/23/22 07:34 Sputum, Tracheal Aspirate Respiratory Culture - Final Staphylococcus aureus 09/22/22 07:20 Sputum, Induced/Lukens Gram Stain - Final 09/22/22 07:20 Sputum, Induced/Lukens Respiratory Culture - Final Mixed normal respiratory amparo. No Streptococcus pneumoniae, beta-hemolytic Streptococcus or Staphylococcus aureus isolated. 09/17/22 15:45 Urine, Clean Catch Urine Culture - Final Culture exhibits no growth. 09/16/22 07:05 Nasal Secretion SARS-CoV-2 & FLU Antigen (Rapid) - Final Physical Exam Narrative Const: Alert and oriented x3, no apparent distress Cardio: S1, S2, RRR Respiratory: Lung sounds clear anteriorly and posteriorly, no wheezes, rhonchi o r rales noted. Abdomen: Soft, nontender Extremities: No pitting edema noted bilateral legs, feet or arms Tunneled HD catheter left chest dressing clean, dry and intact Const Constitutional Narrative: Patient is deaf Assessment & Plan Assessment/Plan (1) TREVOR (acute kidney injury): (2) Benign essential hypertension: (3) Type 1 diabetes: (4) CKD (chronic kidney disease): PLAN: Plan - Baseline renal function is unclear serum creatinine was 1.60 mg/dL in 2020.? The last available serum creatinine in [facility] was from 04/22/2014 at 1.3 mg/dL. Suspect the patient has underlying diabetic kidney disease.? He is proteinuric in nephrotic range and has had longstanding, poorly controlled diabetes with retinopathy. Serologies including ANCA, C3, and C4 are negative.? Immunofixation is negative for monoclonal protein. It is possible that we are seeing progression of diabetic kidney disease towards ESRD. Unfortunately, biopsy could not be done because of patient's respiratory status and anxiety. Patient had cardiac catheterization 09/28: Significant diffuse two-vessel disease.? Echo: EF 35% with stage III diastolic dysfunction and pulmonary hypertension - patient has PEG. Patient had modified barium swallow test yesterday with recommendations of strict n.p.o., continue utilizing PEG tube. - Blood pressures acceptable, recommend to hold carvedilol and hydralazine mornings of dialysis. - No acute indication for COMMERCIAL TITLE EXAMINER today, patient to dialyze tomorrow over 3.5 hours and attempt fluid removal as pt/bp tolerates. He tolerated 1L UF yesterday with HD. EDW not established yet but seems to be nearing a dry weight. Giving lasix on non-hd days. Outpatient dialysis arrangements Wednesday at [facility]. - WBC 3.6. Blood cx NGTD from 10/06. Documented by User: Dr. Den March MD 10/09/22 23:03 Objective Data Lab / Micro Data Result Diagrams: 10/09/22 06:00 10/09/22 14:20 Assessment & Plan Assessment/Plan (1) TREVOR (acute kidney injury): (2) Benign essential hypertension: (3) Type 1 diabetes: (4) CKD (chronic kidney disease): PLAN: Plan - Baseline renal function is unclear serum creatinine was 1.60 mg/dL in 2020.? The last available serum creatinine in [facility] was from 04/22/2014 at 1.3 mg/dL. Suspect the patient has underlying diabetic kidney disease.? He is proteinuric in nephrotic range and has had longstanding, poorly controlled diabetes with retinopathy. Serologies including ANCA, C3, and C4 are negative.? Immunofixation is negative for monoclonal protein. It is possible that we are seeing progression of diabetic kidney disease towards ESRD. Unfortunately, biopsy could not be done because of patient's respiratory status and anxiety. Patient had cardiac catheterization 09/28: Significant diffuse two-vessel disease.? Echo: EF 35% with stage III diastolic dysfunction and pulmonary hypertension - patient has PEG. Patient had modified barium swallow test yesterday with recommendations of strict n.p.o., continue utilizing PEG tube. - Blood pressures acceptable, recommend to hold carvedilol and hydralazine mornings of dialysis. - No acute indication for COMMERCIAL TITLE EXAMINER today, patient to dialyze tomorrow over 3.5 hours and attempt fluid removal as pt/bp tolerates. He tolerated 1L UF yesterday with HD. EDW not established yet but seems to be nearing a dry weight. Giving lasix on non-hd days. Outpatient dialysis arrangements Wednesday at [facility]. - WBC 3.6. Blood cx NGTD from 10/06. Agree with note as outlined by [employer] above -Plan for hemodialysis tomorrow
[2022-10-08] MEDS: Dorzolamide HCL/Timolol 10 ml Bottle 1 DRP OPHTHALMIC ×2 (10:31→23:38)
[2022-10-08] MEDS: Menthol/Lanolin/Calamine/Znox 113 GM Tube 1 APPLIC TOPICAL (10:33)
[2022-10-08] MEDS: Insulin Glargine-YFGN 100 UNIT/ML Pen 20 UNIT SC (10:35)
[2022-10-08] MEDS: amLODIPine 5 MG Tablet PO (10:38)
[2022-10-08] MEDS: Clopidogrel Bisulfate 75 MG Tablet PO (10:38)
[2022-10-08] MEDS: Isosorbide DN 10 MG Tablet 5 MG PO ×2 (10:38→23:25)
[2022-10-08] MEDS: Carvedilol 25 MG Tablet GT ×2 (10:39→23:24)
[2022-10-08] MEDS: Furosemide 40 MG Tablet PO (10:58)
[2022-10-08 11:41] LABS: Bedside Glucose 328 mg/dL (74-106)
--- NOTE | 2022-10-08 13:58 | PCM.PN.HOSP ---
Subjective Subjective Resting comfortably, due to difficulty with compliance with positioning will transition to bolus feeds Objective Data Objective Data Vital Signs: Vital Signs Temp Pulse Resp BP Pulse Ox O2 Del Method O2 Flow Rate 98.1 F 89 16 155/65 H 94 Room Air 2 10/08/22 13:40 10/08/22 13:40 10/08/22 13:40 10/08/22 13:40 10/08/22 13:40 10/08/22 13:40 10/08/22 10:13 FiO2 30 10/07/22 07:00 Oxygen Flow Rate (L/min) 2 Oxygen Delivery Method Room Air Weight: 73.2 kg Body Mass Index (BMI) 25.8 Intake & Output: Intake and Output for Last 24 Hours 10/06/22 10/07/22 10/08/22 23:59 23:59 23:59 Intake Total 2007.75 / 75 908 / 908 1296 / 1296 Output Total 515 / 515 550 / 550 350 / 350 Balance 1493.75 / 1493.75 358 / 358 946 / 946 Lab / Micro Data Result Diagrams: 10/08/22 04:35 10/08/22 04:35 Labs: Laboratory Results - last 24 hr 10/07/22 15:10: POC Glucose 151 H 10/07/22 17:17: POC Glucose 119 H 10/07/22 23:41: POC Glucose 149 H 10/08/22 02:19: POC Glucose 135 H 10/08/22 04:35: WBC 3.6 L, RBC 2.54 L, Hgb 7.8 L, Hct 24.0 L, MCV 94.5 H, MCH 30.7, MCHC 32.5, RDW Std Deviation 43.9, RDW Coeff of Jenifer 12.7, Plt Count 328, MPV 11.4, Immature Gran % (Auto) 0.300, Neut % (Auto) 22.5 L, Lymph % (Auto) 21.1, [place] % (Auto) 23.1 H, Eos % (Auto) 31.0 H, Baso % (Auto) 2.0 H, Absolute Neuts (auto) 0.8 L, Absolute Lymphs (auto) 0.75 L, Nucleated RBC % 0, Macrocytosis RARE 10/08/22 04:35: Sodium 139, Potassium 3.4 L, Chloride 104, Carbon Dioxide 28.0, Anion Gap 7, BUN 31 H, Creatinine 4.66 H, Estim Creat Clear Calc 17.82, Est GFR (MDRD) Af Amer 17 L, Est GFR (MDRD) Non-Af 14 L, BUN/Creatinine Ratio 6.7 L, Glucose 130 H, Calcium 8.5, Phosphorus 3.2, Magnesium 2.2, Total Bilirubin 0.30, AST 25, ALT 9 L, Alkaline Phosphatase 73, Total Protein 6.1 L, Albumin 1.6 L, Globulin 4.5 H, Albumin/Globulin Ratio 0.4 L 10/08/22 05:30: POC Glucose 149 H 10/08/22 10:25: POC Glucose 328 H Micro: Microbiology 10/06/22 15:10 Sputum, Induced/Lukens Gram Stain - Final 10/06/22 15:10 Sputum, Induced/Lukens Respiratory Culture - Preliminary Appears to be normal respiratory amparo. Further studies to follow. 10/06/22 09:00 Urine Catheter - Lopez Urine Culture - Final Culture exhibits no growth. 10/06/22 09:30 Blood Culture (Wb) - Anticubital Left Blood Culture - Preliminary No growth in 48 hours. 10/06/22 09:00 Blood Culture (Wb) - Anticubital Right Blood Culture - Preliminary No growth in 48 hours. 10/06/22 09:00 Mucosa - Nasopharyngeal Respiratory Panel (PCR) - Final 10/06/22 09:00 Nasal Secretion SARS-CoV-2 & FLU Antigen (Rapid) - Final 09/23/22 07:34 Sputum, Tracheal Aspirate Gram Stain - Final 09/23/22 07:34 Sputum, Tracheal Aspirate Respiratory Culture - Final Staphylococcus aureus 09/22/22 07:20 Sputum, Induced/Lukens Gram Stain - Final 09/22/22 07:20 Sputum, Induced/Lukens Respiratory Culture - Final Mixed normal respiratory amparo. No Streptococcus pneumoniae, beta-hemolytic Streptococcus or Staphylococcus aureus isolated. 09/17/22 15:45 Urine, Clean Catch Urine Culture - Final Culture exhibits no growth. 09/16/22 07:05 Nasal Secretion SARS-CoV-2 & FLU Antigen (Rapid) - Final Physical Exam Const Constitutional Narrative: Resting comfortably in bed, no acute distress HEENT normocephalic and head/scalp atraumatic Eyes Eyes Narrative: EOM grossly intact, anicteric Neck supple Resp normal respiratory effort Cardio regular rate and regular rhythm GI soft to palpation, non-tender and non-distended Extremity Extremity Narrative: No edema appreciated Neuro moves all extremities Neuro Narrative: No overt focal deficits appreciated Psych Psych Narrative: Cooperative Assessment & Plan Assessment/Plan (1) Non-ST elevated myocardial infarction (non-STEMI): (2) Acute renal failure: (3) Hypertensive emergency: (4) 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 Pancultures Will start broad-spectrum antibiotics pending culture results Respiratory panel ordered as well 10/07: Cultures pending, on Vanco and Zosyn, O2 sat 99%, tachypnea improving. Is leukopenic today, will monitor may need to repeat to verify. 10/08: So far cultures are no growth to date and seems to be improving. May have been that this was aspiration pneumonia versus pneumonitis though Pro-José was elevated at 1.6. Continue antibiotics at this time and recheck Pro-José in the morning. Leukopenia slightly improved, does have elevated eosinophil count, will monitor differential #DKA in the setting of 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 with long-term current use of insulin?resolved Currently only on sliding scale insulin and having worsening glucoses but they are widely variable and not consistent which makes titration difficult Will start a basal insulin conservatively at 5 and trend, will likely need further titration but given extreme highs followed by glucose in the 160s concern for hypoglycemia 10/04: Glucoses have escalated, will increase long-acting and start Premeal in addition to sliding scale, will check BMP at this afternoon to assure no gap opens with his persistent elevation 10/05: Had escalating glucose despite increasing insulin, Increased on BMP and he was placed on insulin drip in the ICU. Gap is closed and he is doing well, calculated daily requirement and have added 25 units of long-acting insulin with 10 units every 4 prandial tube feeds and every 4 sliding scale insulin. Continue to monitor BMPs 10/06: Glucose may have significantly elevated due to underlying infection, glucose still widely variable and did have a low yesterday evening that a.m. glucose of 315, 1 to avoid hypoglycemia however, will further decrease insulin with meals 10/07: Continue to adjust insulin, with vomiting yesterday tube feeds were put on hold so we will not need every 4 hours sliding scale when this is held, will likely need to start back on lower feeds given his vomiting of tube feeds and concern for aspiration. Speech and dietary following 10/08: Discussed with nutrition, given his aspiration risk and difficulty being compliant with posturing will transition to bolus feeding. #TREVOR requiring dialysis Nephrology following Has left-sided tunneled hemodialysis catheter, also has PEG tube Still making urine but kidney function is not recovering yet, was unable to tolerate biopsy due to respiratory status and anxiety Continue dialysis per nephrology recommendations 10/05: Nephrology following 10/06: Dialysis 10/05 completed 10/07: Nephrology following #NSTEMI Had cardiac cath this admission which showed diffusely diseased 2 vessels with LV systolic dysfunction with an LV gram EF of 40%. It was recommended tertiary care transfer referral for targeted PCI after he is stabilized. 09/30 attempted to transfer but they were not excepting transfers at this time. Previous hospitalist discussed with cardiology and it was agreed that he could continue medical management with outpatient follow-up with cardiac surgeon. Coreg, aspirin, atorvastatin, Lasix Cardiology following #Cardiomyopathy Unclear etiology Did have echo here on 09/16 with an EF of 35% and stage III diastolic dysfunction and moderate to severe global hypokinesis of the left ventricle On Coreg Cannot tolerate ANIA/ARB due to kidney function #Hypertension Continue to adjust antihypertensives, Coreg increased on 10/04 Nephrology recommended to hold hydralazine and Coreg on the mornings of dialysis, added instructions #Congenital deafness Reads lips and writes on paper #Acute hypoxic respiratory failure resolved Was intubated in the ICU and has since been extubated #DVT ppx: No longer on systemic anticoagulation so started heparin subcu Susu Goode MD Charges/Coding Visit Charges Inpatient E&M: 92807 Subs Hosp L2
[2022-10-08] MEDS: 0.9% Saline Lock 10 ML Syringe IV ×2 (14:06→23:12)
[2022-10-08] MEDS: NEPRO TUBE FEED 1,000 ML LIQUID 210 ML GT ×3 (14:18→23:30)
[2022-10-08 16:35] LABS: Bedside Glucose 164 mg/dL (74-106)
[2022-10-08 20:01] LABS: Bedside Glucose 69 mg/dL (74-106)
[2022-10-08 20:01] LABS: Bedside Glucose 98 mg/dL (74-106)
[2022-10-08] MEDS: Atorvastatin Calcium 40 MG Tablet GT (23:25)
[2022-10-08] MEDS: Latanoprost 0.005% 1 Bottle 1 DRP OPHTHALMIC (23:38)
[2022-10-09] VITALS (16 sets, daily range): BP systolic 136–175; BP diastolic 61–81; PULSE 82–111; RESP 16–18; TEMP 36.5–37.3; O2SAT 93–94
[2022-10-09 00:20] LABS: Bedside Glucose 173 mg/dL (74-106)
[2022-10-09] MEDS: Insulin Lispro 100 UNIT/ML INSULN.PEN SC ×8 (03:28→23:15)
[2022-10-09 03:51] LABS: Bedside Glucose 210 mg/dL (74-106)
[2022-10-09] MEDS: Menthol/Lanolin/Calamine/Znox 113 GM Tube 1 APPLIC TOPICAL ×3 (04:40→23:20)
[2022-10-09 06:19] LABS: Absolute Lymphocyte Count 0.84 X10^3/uL (0.83-4.51); Absolute Neutrophil Count 1.7 X10^3/uL (2.0-7.7); Basophil# 0.09 X10^3/uL; Eosinophil# 0.92 X10^3/uL; Eosinophils% 20.3 % (0-5); Hematocrit 23.3 % (40-54); Hemoglobin 7.4 g/dL (13.0-16.5); Lymphocyte # 0.84 X10^3/ul (0.83-4.51); Lymphocyte % 18.5 % (19-41); Mean Corp Hgb Conc 31.8 g/dL (32-36); Mean Corpuscular Hgb 29.7 pg (27.0-32.0); Mean Corpuscular Volume 93.6 fL (80-94); Mean Platelet Vol. 10.4 fl (6.2-12.0); Monocyte# 0.99 X10^3/uL; Monocyte% 21.9 % (0-10); NRBC Flagged by Analyzer 0 % (0-5); Neutrophil # 1.68 X10^3/uL (2.7-7.7); Neutrophil % 37.1 % (47-70); Platelet Count 367 K/mm3 (150-450); RBC Distribution Width CV 12.5 % (11.6-14.6); RBC Distribution Width SD 42.9 fl (35.1-43.9); Red Blood Count 2.49 M/mm3 (4.6-6.2); White Blood Count 4.5 K/mm3 (4.4-11.0)
[2022-10-09 06:44] LABS: Vancomycin, Random Level 24.2 ug/mL (0.0-15.0)
[2022-10-09 06:47] LABS: ALB/GLOB Ratio 0.4 RATIO (0.9-2.4); AST(SGOT) 22 U/L (15-37); Alanine Aminotransfer ALT/SGPT 13 U/L (16-61); Albumin, Serum 1.6 g/dL (3.2-5.0); Alkaline Phosphatase 89 U/L (45-117); Anion Gap 10 (5-15); BUN 47 mg/dL (7-18); BUN/Creat Ratio 7.5 RATIO (10-20); Calcium,Total 7.7 mg/dL (8.5-10.1); Chloride 103 mmol/L (98-107); Creatinine, Serum 6.27 mg/dL (0.70-1.30); EST Glomerular Filtration Rate 10 mL/min (>60); Est Glom Filt Rate - Afr Amer 12 mL/min (>60); Estimated Creatinine Clearance 13.26 ml/min; Globulin 4.5 g/dL (2.2-4.2); Glucose 141 mg/dL (74-106); Potassium 3.2 mmol/L (3.5-5.1); Protein, Total 6.1 g/dL (6.4-8.2); Sodium Level 137 mmol/L (136-145)
[2022-10-09] MEDS: Metoclopramide 10 MG/2 ML Vial 5 MG IV ×4 (06:50→23:59)
[2022-10-09] MEDS: Heparin Injection (Vial) 5,000 UNIT/ML VIAL 5000 UNIT SC ×3 (06:50→23:21)
[2022-10-09] MEDS: NEPRO TUBE FEED 1,000 ML LIQUID 210 ML GT ×4 (06:53→18:46)
--- NOTE | 2022-10-09 07:17 | PCM.RX.CS ---
Consult Type of Consult: Follow-up Suspected Infection: Other Labs: Sodium 137 mmol/L (136-145) 10/09/22 06:00 Potassium 3.2 mmol/L (3.5-5.1) L 10/09/22 06:00 Chloride 103 mmol/L (98-107) 10/09/22 06:00 Carbon Dioxide 24.0 mmol/L (21.0-32.0) 10/09/22 06:00 Anion Gap 10 (5-15) 10/09/22 06:00 BUN 47 mg/dL (7-18) H 10/09/22 06:00 Creatinine 6.27 mg/dL (0.70-1.30) H 10/09/22 06:00 Est GFR (MDRD) Af Amer 12 mL/min (>60) L 10/09/22 06:00 Est GFR (MDRD) Non-Af 10 mL/min (>60) L 10/09/22 06:00 BUN/Creatinine Ratio 7.5 RATIO (10-20) L 10/09/22 06:00 Glucose 141 mg/dL (74-106) H 10/09/22 06:00 Random Vancomycin 24.2 ug/mL (0.0-15.0) H 10/09/22 06:00 Microbiology: Microbiology 10/06/22 15:10 Sputum, Induced/Lukens Gram Stain - Final 10/06/22 15:10 Sputum, Induced/Lukens Respiratory Culture - Preliminary Appears to be normal respiratory amparo. Further studies to follow. 10/06/22 09:00 Urine Catheter - Lopez Urine Culture - Final Culture exhibits no growth. 10/06/22 09:30 Blood Culture (Wb) - Anticubital Left Blood Culture - Preliminary No growth in 48 hours. 10/06/22 09:00 Blood Culture (Wb) - Anticubital Right Blood Culture - Preliminary No growth in 48 hours. 10/06/22 09:00 Mucosa - Nasopharyngeal Respiratory Panel (PCR) - Final 10/06/22 09:00 Nasal Secretion SARS-CoV-2 & FLU Antigen (Rapid) - Final 09/23/22 07:34 Sputum, Tracheal Aspirate Gram Stain - Final 09/23/22 07:34 Sputum, Tracheal Aspirate Respiratory Culture - Final Staphylococcus aureus 09/22/22 07:20 Sputum, Induced/Lukens Gram Stain - Final 09/22/22 07:20 Sputum, Induced/Lukens Respiratory Culture - Final Mixed normal respiratory amparo. No Streptococcus pneumoniae, beta-hemolytic Streptococcus or Staphylococcus aureus isolated. 09/17/22 15:45 Urine, Clean Catch Urine Culture - Final Culture exhibits no growth. 09/16/22 07:05 Nasal Secretion SARS-CoV-2 & FLU Antigen (Rapid) - Final Goal Trough: 15-20 mcg/mL Pharmacy Plan for Drug Dosing: VANCOMYCIN LEVEL RECEIVED Current Vancomycin Dose: by pre-HD level Number of Doses Received: 1750mg x1 10/06/22, 500mg x1 10/07/22 Vancomycin Level: 24.2 Hours Since Last Dose: 47.25 Renal Function: sCr 6.27 (HD MWF) Renal Function Trend: planned for HD session today Vancomycin Plan/Comments: HOLD Vancomycin Pending Level: Random Vancomycin level @ 0600 10/12/22, prior to next HD session Pharmacy Service will continue to monitor and adjust dosing as required. Labs to be done on [date and time ordered]: Random Vancomycin level @ 0600 10/12/22
[2022-10-09 07:20] LABS: Bedside Glucose 128 mg/dL (74-106)
[2022-10-09] MEDS: Dorzolamide HCL/Timolol 10 ml Bottle 1 DRP OPHTHALMIC ×2 (09:30→23:16)
[2022-10-09] MEDS: Insulin Glargine-YFGN 100 UNIT/ML Pen 20 UNIT SC (09:39)
[2022-10-09] MEDS: 0.9% Saline Lock 10 ML Syringe IV ×4 (09:43→23:16)
[2022-10-09] MEDS: Acetaminophen 650 MG/20 ML UDC GT (09:44)
[2022-10-09 10:25] LABS: Bedside Glucose 186 mg/dL (74-106)
[2022-10-09] MEDS: Albuterol 2.5 MG/3 ML VIAL.NEB. INHALATION (11:03)
[2022-10-09] MEDS: Isosorbide DN 10 MG Tablet 5 MG PO (12:27)
[2022-10-09] MEDS: Clopidogrel Bisulfate 75 MG Tablet PO (12:27)
[2022-10-09] MEDS: Carvedilol 25 MG Tablet GT (12:27)
[2022-10-09] MEDS: amLODIPine 5 MG Tablet PO (12:27)
--- NOTE | 2022-10-09 12:44 | NURSING ---
Meds given late d/t pt receiving dialysis.
--- NOTE | 2022-10-09 12:46 | PCM.PN.REN ---
Subjective Subjective seen on HD tolerating TF Objective Data Objective Data Vital Signs: Vital Signs Temp Pulse Resp BP Pulse Ox O2 Del Method O2 Flow Rate 97.7 F L 99 18 166/79 H 94 Room Air 2 10/09/22 09:21 10/09/22 11:00 10/09/22 11:00 10/09/22 09:21 10/09/22 09:21 10/09/22 09:21 10/08/22 10:13 FiO2 30 10/07/22 07:00 Oxygen Flow Rate (L/min) 2 Oxygen Delivery Method Room Air Weight: 74 kg Body Mass Index (BMI) 25.8 Intake & Output: Intake and Output for Last 24 Hours 10/07/22 10/08/22 10/09/22 23:59 23:59 23:59 Intake Total 908 / 908 2506 / 2706 560 / 560 Output Total 550 / 550 600 / 900 500 / 500 Balance 358 / 358 1906 / 1806 60 / 60 Lab / Micro Data Result Diagrams: 10/09/22 06:00 10/09/22 06:00 Labs: Laboratory Results - last 24 hr 10/08/22 13:48: POC Glucose 164 H 10/08/22 19:03: POC Glucose 69 L 10/08/22 19:42: POC Glucose 98 10/08/22 23:08: POC Glucose 173 H 10/09/22 03:24: POC Glucose 210 H 10/09/22 06:00: Random Vancomycin 24.2 H 10/09/22 06:00: WBC 4.5, RBC 2.49 L, Hgb 7.4 L, Hct 23.3 L, MCV 93.6, MCH 29.7, MCHC 31.8 L, RDW Std Deviation 42.9, RDW Coeff of Jenifer 12.5, Plt Count 367, MPV 10.4, Immature Gran % (Auto) 0.200, Neut % (Auto) 37.1 L, Lymph % (Auto) 18.5 L, [place] % (Auto) 21.9 H, Eos % (Auto) 20.3 H, Baso % (Auto) 2.0 H, Absolute Neuts (auto) 1.7 L, Absolute Lymphs (auto) 0.84, Nucleated RBC % 0 10/09/22 06:00: Sodium 137, Potassium 3.2 L, Chloride 103, Carbon Dioxide 24.0, Anion Gap 10, BUN 47 H, Creatinine 6.27 H, Estim Creat Clear Calc 13.26, Est GFR (MDRD) Af Amer 12 L, Est GFR (MDRD) Non-Af 10 L, BUN/Creatinine Ratio 7.5 L, Glucose 141 H, Calcium 7.7 L, Total Bilirubin 0.30, AST 22, ALT 13 L, Alkaline Phosphatase 89, Total Protein 6.1 L, Albumin 1.6 L, Globulin 4.5 H, Albumin/Globulin Ratio 0.4 L 10/09/22 06:47: POC Glucose 128 H 10/09/22 09:37: POC Glucose 186 H Micro: Microbiology 10/06/22 15:10 Sputum, Induced/Lukens Gram Stain - Final 10/06/22 15:10 Sputum, Induced/Lukens Respiratory Culture - Final Staphylococcus haemolyticus 10/06/22 09:00 Urine Catheter - Lopez Urine Culture - Final Culture exhibits no growth. 10/06/22 09:30 Blood Culture (Wb) - Anticubital Left Blood Culture - Preliminary No growth in 48 hours. 10/06/22 09:00 Blood Culture (Wb) - Anticubital Right Blood Culture - Preliminary No growth in 48 hours. 10/06/22 09:00 Mucosa - Nasopharyngeal Respiratory Panel (PCR) - Final 10/06/22 09:00 Nasal Secretion SARS-CoV-2 & FLU Antigen (Rapid) - Final 09/23/22 07:34 Sputum, Tracheal Aspirate Gram Stain - Final 09/23/22 07:34 Sputum, Tracheal Aspirate Respiratory Culture - Final Staphylococcus aureus 09/22/22 07:20 Sputum, Induced/Lukens Gram Stain - Final 09/22/22 07:20 Sputum, Induced/Lukens Respiratory Culture - Final Mixed normal respiratory amparo. No Streptococcus pneumoniae, beta-hemolytic Streptococcus or Staphylococcus aureus isolated. 09/17/22 15:45 Urine, Clean Catch Urine Culture - Final Culture exhibits no growth. 09/16/22 07:05 Nasal Secretion SARS-CoV-2 & FLU Antigen (Rapid) - Final Physical Exam Narrative Const: Alert and oriented x3, no apparent distress Cardio: S1, S2, RRR Respiratory: Lung sounds clear anteriorly and posteriorly, no wheezes, rhonchi or rales noted. Abdomen: Soft, nontender Extremities: No pitting edema noted bilateral legs, feet or arms Tunneled HD catheter left chest dressing clean, dry and intact Const alert, no apparent distress, average body habitus and healthy appearing Constitutional Narrative: Patient is deaf General Appearance: cooperative, comfortable and well developed Orientation / Consciousness: awake Exam Limitations: no limitations Nutritional Appearance: underweight HEENT normocephalic Eyes PERRL General Eye: normal appearance of both eyes Lymph Lymphatic: no lymphadenopathy noted Chest inspection of chest normal Resp normal respiratory effort, normal air movement, no retractions, no use of accessory muscles and clear to auscultation bilaterally Cardio regular rate, regular rhythm, S1 normal heart sound, S2 normal heart sound and no murmurs GI normal to inspection, nondistended, normoactive bowel sounds, non-tender and no masses Auscultation: normoactive bowel sounds Palpation: soft Bladder / Kidney Exam: catheter in place and bladder normal to palpation Extremity normal to inspection and no pedal edema Neuro Sensorium / Orientation: awake and alert Motor Exam: muscle tone normal throughout Psych cooperative Assessment & Plan Assessment/Plan (1) TREVOR (acute kidney injury): (2) Benign essential hypertension: (3) Type 1 diabetes: (4) CKD (chronic kidney disease): PLAN: Plan - Baseline renal function is unclear serum creatinine was 1.60 mg/dL in 2020.? The last available serum creatinine in [facility] was from 04/22/2014 at 1.3 mg/dL. Suspect the patient has underlying diabetic kidney disease.? He is proteinuric in nephrotic range and has had longstanding, poorly controlled diabetes with retinopathy. Serologies including ANCA, C3, and C4 are negative.? Immunofixation is negative for monoclonal protein. It is possible that we are seeing progression of diabetic kidney disease towards ESRD. Unfortunately, biopsy could not be done because of patient's respiratory status and anxiety. Patient had cardiac catheterization 09/28: Significant diffuse two-vessel disease.? Echo: EF 35% with stage III diastolic dysfunction and pulmonary hypertension - patient has PEG. Patient had modified barium swallow test yesterday with recommendations of strict n.p.o., continue utilizing PEG tube. - Blood pressures acceptable, recommend to hold carvedilol and hydralazine mornings of dialysis. - No acute indication for WAD IMPREGNATOR today, patient to dialyze tomorrow over 3.5 hours and attempt fluid removal as pt/bp tolerates. He tolerated 1L UF yesterday with HD. EDW not established yet but seems to be nearing a dry weight. Giving lasix on non-hd days. Outpatient dialysis arrangements Wednesday at [facility]. - WBC 3.6. Blood cx NGTD from 10/06. 10/09 -seen on HD -UF 800cc -continue with MWF HD schedule thanks, please call [phone] with any concerns
[2022-10-09 15:10] LABS: Potassium 3.4 mmol/L (3.5-5.1)
[2022-10-09] MEDS: hydrALAZINE 50 MG Tablet GT (16:04)
--- NOTE | 2022-10-09 16:11 | PN.HOSP_ITS ---
Subjective Subjective Has a GI upset today he reported, did have small bowel movement, on bolus tube feeds now. Objective Data Objective Data Vital Signs: Vital Signs Temp Pulse Resp BP Pulse Ox O2 Del Method O2 Flow Rate 97.8 F 82 16 148/72 H 93 Room Air 2 10/09/22 15:54 10/09/22 15:54 10/09/22 15:54 10/09/22 15:54 10/09/22 15:54 10/09/22 15:54 10/08/22 10:13 FiO2 30 10/07/22 07:00 Oxygen Flow Rate (L/min) 2 Oxygen Delivery Method Room Air Weight: 74 kg Body Mass Index (BMI) 25.8 Intake & Output: Intake and Output for Last 24 Hours 10/07/22 10/08/22 10/09/22 23:59 23:59 23:59 Intake Total 908 / 908 2506 / 2706 1200 / 1200 Output Total 550 / 550 600 / 900 625 / 625 Balance 358 / 358 1906 / 1806 575 / 575 Lab / Micro Data Result Diagrams: 10/09/22 06:00 10/09/22 14:20 Labs: Laboratory Results - last 24 hr 10/08/22 13:48: POC Glucose 164 H 10/08/22 19:03: POC Glucose 69 L 10/08/22 19:42: POC Glucose 98 10/08/22 23:08: POC Glucose 173 H 10/09/22 03:24: POC Glucose 210 H 10/09/22 06:00: Random Vancomycin 24.2 H 10/09/22 06:00: WBC 4.5, RBC 2.49 L, Hgb 7.4 L, Hct 23.3 L, MCV 93.6, MCH 29.7, MCHC 31.8 L, RDW Std Deviation 42.9, RDW Coeff of Jenifer 12.5, Plt Count 367, MPV 10.4, Immature Gran % (Auto) 0.200, Neut % (Auto) 37.1 L, Lymph % (Auto) 18.5 L, [place] % (Auto) 21.9 H, Eos % (Auto) 20.3 H, Baso % (Auto) 2.0 H, Absolute Neuts (auto) 1.7 L, Absolute Lymphs (auto) 0.84, Nucleated RBC % 0 10/09/22 06:00: Sodium 137, Potassium 3.2 L, Chloride 103, Carbon Dioxide 24.0, Anion Gap 10, BUN 47 H, Creatinine 6.27 H, Estim Creat Clear Calc 13.26, Est GFR (MDRD) Af Amer 12 L, Est GFR (MDRD) Non-Af 10 L, BUN/Creatinine Ratio 7.5 L, Glucose 141 H, Calcium 7.7 L, Total Bilirubin 0.30, AST 22, ALT 13 L, Alkaline Phosphatase 89, Total Protein 6.1 L, Albumin 1.6 L, Globulin 4.5 H, Albumin/Globulin Ratio 0.4 L 10/09/22 06:47: POC Glucose 128 H 10/09/22 09:37: POC Glucose 186 H 10/09/22 14:20: Potassium 3.4 L Micro: Microbiology 10/06/22 15:10 Sputum, Induced/Lukens Gram Stain - Final 10/06/22 15:10 Sputum, Induced/Lukens Respiratory Culture - Final Staphylococcus haemolyticus 10/06/22 09:00 Urine Catheter - Lopez Urine Culture - Final Culture exhibits no growth. 10/06/22 09:30 Blood Culture (Wb) - Anticubital Left Blood Culture - Preliminary No growth in 48 hours. 10/06/22 09:00 Blood Culture (Wb) - Anticubital Right Blood Culture - Preliminary No growth in 48 hours. 10/06/22 09:00 Mucosa - Nasopharyngeal Respiratory Panel (PCR) - Final 10/06/22 09:00 Nasal Secretion SARS-CoV-2 & FLU Antigen (Rapid) - Final 09/23/22 07:34 Sputum, Tracheal Aspirate Gram Stain - Final 09/23/22 07:34 Sputum, Tracheal Aspirate Respiratory Culture - Final Staphylococcus aureus 09/22/22 07:20 Sputum, Induced/Lukens Gram Stain - Final 09/22/22 07:20 Sputum, Induced/Lukens Respiratory Culture - Final Mixed normal respiratory amparo. No Streptococcus pneumoniae, beta-hemolytic Streptococcus or Staphylococcus aureus isolated. 09/17/22 15:45 Urine, Clean Catch Urine Culture - Final Culture exhibits no growth. 09/16/22 07:05 Nasal Secretion SARS-CoV-2 & FLU Antigen (Rapid) - Final Physical Exam Const Constitutional Narrative: Resting comfortably in bed, no acute distress HEENT normocephalic and head/scalp atraumatic Eyes Eyes Narrative: EOM grossly intact, anicteric Neck supple Resp normal respiratory effort Cardio regular rate and regular rhythm GI soft to palpation, non-tender and non-distended Extremity Extremity Narrative: No edema appreciated Neuro moves all extremities Neuro Narrative: No overt focal deficits appreciated Psych Psych Narrative: Cooperative Assessment & Plan Assessment/Plan (1) Non-ST elevated myocardial infarction (non-STEMI): (2) Acute renal failure: (3) Hypertensive emergency: (4) 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 Pancultures Will start broad-spectrum antibiotics pending culture results Respiratory panel ordered as well 10/07: Cultures pending, on Vanco and Zosyn, O2 sat 99%, tachypnea improving. Is leukopenic today, will monitor may need to repeat to verify. 10/08: So far cultures are no growth to date and seems to be improving. May have been that this was aspiration pneumonia versus pneumonitis though Pro-José was elevated at 1.6. Continue antibiotics at this time and recheck Pro-José in the morning. Leukopenia slightly improved, does have elevated eosinophil count, will monitor differential 10/09: Leukopenia improved #DKA in the setting of 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 with long-term current use of insulin?resolved Currently only on sliding scale insulin and having worsening glucoses but they are widely variable and not consistent which makes titration difficult Will start a basal insulin conservatively at 5 and trend, will likely need further titration but given extreme highs followed by glucose in the 160s concern for hypoglycemia 10/04: Glucoses have escalated, will increase long-acting and start Premeal in addition to sliding scale, will check BMP at this afternoon to assure no gap opens with his persistent elevation 10/05: Had escalating glucose despite increasing insulin, Increased on BMP and he was placed on insulin drip in the ICU. Gap is closed and he is doing well, calculated daily requirement and have added 25 units of long-acting insulin with 10 units every 4 prandial tube feeds and every 4 sliding scale insulin. Continue to monitor BMPs 10/06: Glucose may have significantly elevated due to underlying infection, glucose still widely variable and did have a low yesterday evening that a.m. glucose of 315, 1 to avoid hypoglycemia however, will further decrease insulin with meals 10/07: Continue to adjust insulin, with vomiting yesterday tube feeds were put on hold so we will not need every 4 hours sliding scale when this is held, will likely need to start back on lower feeds given his vomiting of tube feeds and concern for aspiration. Speech and dietary following 10/08: Discussed with nutrition, given his aspiration risk and difficulty being compliant with posturing will transition to bolus feeding. 10/09: Glucose under better control #TREVOR requiring dialysis Nephrology following Has left-sided tunneled hemodialysis catheter, also has PEG tube Still making urine but kidney function is not recovering yet, was unable to tolerate biopsy due to respiratory status and anxiety Continue dialysis per nephrology recommendations 10/05: Nephrology following 10/06: Dialysis 10/05 completed 10/07: Nephrology following #NSTEMI Had cardiac cath this admission which showed diffusely diseased 2 vessels with LV systolic dysfunction with an LV gram EF of 40%. It was recommended tertiary care transfer referral for targeted PCI after he is stabilized. 09/30 attempted to transfer but they were not excepting transfers at this time. Previous hospitalist discussed with cardiology and it was agreed that he could continue medical management with outpatient follow-up with cardiac surgeon. Coreg, aspirin, atorvastatin, Lasix Cardiology following #Cardiomyopathy Unclear etiology Did have echo here on 09/16 with an EF of 35% and stage III diastolic dysfunction and moderate to severe global hypokinesis of the left ventricle On Coreg Cannot tolerate ANIA/ARB due to kidney function #Hypertension Continue to adjust antihypertensives, Coreg increased on 10/04 Nephrology recommended to hold hydralazine and Coreg on the mornings of dialysis, added instructions #Congenital deafness Reads lips and writes on paper #Acute hypoxic respiratory failure resolved Was intubated in the ICU and has since been extubated #DVT ppx: No longer on systemic anticoagulation so started heparin subcu Susu Goode MD Charges/Coding Visit Charges Inpatient E&M: 47676 Subs Hosp L2
--- NOTE | 2022-10-09 16:17 | DIALYSIS ---
is tx completed x 3.5 hours without complications. Pt tolerated tx fair, fluid removal limited to 800ml, using crit-line monitor to B-profile while. Vitals stable through out tx. Verbal report to ISABEL Toro post tx
[2022-10-09 19:50] LABS: Bedside Glucose 134 mg/dL (74-106)
[2022-10-09 19:50] LABS: Bedside Glucose 160 mg/dL (74-106)
--- NOTE | 2022-10-09 20:10 | RAD_ITS ---
INDICATION: SOB EXAMINATION/TECHNIQUE: X-RAY - XR Chest 1 View COMPARISON: 10/06/2022. FINDINGS: LINES/DEVICES: Central line terminates in the SVC. LUNGS: No consolidation, edema or effusion. No pneumothorax. MEDIASTINUM AND CARDIOVASCULAR STRUCTURES: Cardiac silhouette not enlarged. Central airways and mediastinal contour are unremarkable. BONES AND SOFT TISSUES: Unremarkable. RAD/Chest 1 View (Portable) IMPRESSION: No acute cardiopulmonary disease. Electronically Signed: Vira Flannery MD at 20:33 EST Reading Location ID and State: [id number] / Tel , Service support ,
[2022-10-09] MEDS: Latanoprost 0.005% 1 Bottle 1 DRP OPHTHALMIC (23:21)
[2022-10-09 23:46] LABS: Bedside Glucose 222 mg/dL (74-106)
[2022-10-10] VITALS (20 sets, daily range): BP systolic 113–168; BP diastolic 62–86; PULSE 84–117; RESP 12–26; TEMP 36.6–37.2; O2SAT 92–100
--- NOTE | 2022-10-10 00:22 | NURSING ---
Pt put on his call light and was found with vomit all over him, and trying to sign to us that he had thrown up, pt had just recently received his 1800 tube feed. Pt had a consistent cough and lung sounds had wheezes. Pt signed to septic tank setter that he was coughing so hard it caused him to vomit and then his cough got worse after her vomited. Believed to have aspirated d/t being strict NPO and failed cookie swallow test. MD notified and ordered CXR and told to hold his feeds until pt is seen by rounding physicians in the morning. Holding PO meds as well. Continuing Q4 blood sugar checks, holding scheduled but giving sliding scale if needed.
[2022-10-10] MEDS: Albuterol 2.5 MG/3 ML VIAL.NEB. INHALATION ×2 (03:12→11:32)
[2022-10-10 05:21] LABS: Bedside Glucose 143 mg/dL (74-106)
[2022-10-10] MEDS: Insulin Lispro 100 UNIT/ML INSULN.PEN SC ×5 (06:19→15:05)
[2022-10-10] MEDS: Heparin Injection (Vial) 5,000 UNIT/ML VIAL 5000 UNIT SC ×3 (06:20→21:59)
[2022-10-10] MEDS: Metoclopramide 10 MG/2 ML Vial 5 MG IV ×3 (06:22→18:53)
[2022-10-10 07:10] LABS: Bedside Glucose 227 mg/dL (74-106)
[2022-10-10 07:34] LABS: Absolute Lymphocyte Count 0.69 X10^3/uL (0.83-4.51); Absolute Neutrophil Count 3.8 X10^3/uL (2.0-7.7); Basophil# 0.09 X10^3/uL; Basophil% 1.6 % (0-1); Eosinophil# 0.06 X10^3/uL; Hematocrit 24.5 % (40-54); Hemoglobin 7.8 g/dL (13.0-16.5); Lymphocyte # 0.69 X10^3/ul (0.83-4.51); Mean Corp Hgb Conc 31.8 g/dL (32-36); Mean Corpuscular Hgb 30.1 pg (27.0-32.0); Mean Corpuscular Volume 94.6 fL (80-94); Mean Platelet Vol. 11.5 fl (6.2-12.0); Monocyte# 1.07 X10^3/uL; Monocyte% 18.7 % (0-10); NRBC Flagged by Analyzer 0 % (0-5); Neutrophil # 3.81 X10^3/uL (2.7-7.7); Neutrophil % 66.5 % (47-70); Platelet Count 430 K/mm3 (150-450); RBC Distribution Width CV 12.4 % (11.6-14.6); RBC Distribution Width SD 42.7 fl (35.1-43.9); Red Blood Count 2.59 M/mm3 (4.6-6.2); White Blood Count 5.7 K/mm3 (4.4-11.0)
--- NOTE | 2022-10-10 07:40 | PCM.PN.HOSP ---
Subjective Subjective Again regurgitated tube feeds was briefly tachypneic and tachycardic though this improved throughout the morning. Resting comfortably on evaluation Objective Data Objective Data Vital Signs: Vital Signs Temp Pulse Resp BP Pulse Ox O2 Del Method O2 Flow Rate 97.8 F 114 H 26 H 144/86 H 92 Nasal Cannula 4 10/10/22 02:58 10/10/22 03:23 10/10/22 03:23 10/10/22 02:58 10/10/22 03:23 10/10/22 03:00 10/10/22 03:00 FiO2 45 10/10/22 03:23 Oxygen Flow Rate (L/min) 4 Oxygen Delivery Method Nasal Cannula Weight: 72.9 kg Body Mass Index (BMI) 25.8 Intake & Output: Intake and Output for Last 24 Hours 10/08/22 10/09/22 10/10/22 23:59 23:59 23:59 Intake Total 2706 / 2906 2070 / 2070 160 / 160 Output Total 600 / 900 775 / 1275 500 / 500 Balance 2105 1295 / 795 -340 / -340 Lab / Micro Data Result Diagrams: 10/10/22 06:40 10/10/22 06:40 Labs: Laboratory Results - last 24 hr 10/09/22 09:37: POC Glucose 186 H 10/09/22 14:20: Potassium 3.4 L 10/09/22 15:58: POC Glucose 160 H 10/09/22 18:44: POC Glucose 134 H 10/09/22 23:12: POC Glucose 222 H 10/10/22 03:07: POC Glucose 143 H 10/10/22 06:16: POC Glucose 227 H 10/10/22 06:40: WBC 5.7, RBC 2.59 L, Hgb 7.8 L, Hct 24.5 L, MCV 94.6 H, MCH 30.1, MCHC 31.8 L, RDW Std Deviation 42.7, RDW Coeff of Jenifer 12.4, Plt Count 430, MPV 11.5, Immature Gran % (Auto) 0.200, Neut % (Auto) 66.5, Lymph % (Auto) 12.0 L, [place] % (Auto) 18.7 H, Eos % (Auto) 1.0, Baso % (Auto) 1.6 H, Absolute Neuts (auto) 3.8, Absolute Lymphs (auto) 0.69 L, Nucleated RBC % 0 Micro: Microbiology 10/06/22 15:10 Sputum, Induced/Lukens Gram Stain - Final 10/06/22 15:10 Sputum, Induced/Lukens Respiratory Culture - Final Staphylococcus haemolyticus 10/06/22 09:00 Urine Catheter - Lopez Urine Culture - Final Culture exhibits no growth. 10/06/22 09:30 Blood Culture (Wb) - Anticubital Left Blood Culture - Preliminary No growth in 48 hours. 10/06/22 09:00 Blood Culture (Wb) - Anticubital Right Blood Culture - Preliminary No growth in 48 hours. 10/06/22 09:00 Mucosa - Nasopharyngeal Respiratory Panel (PCR) - Final 10/06/22 09:00 Nasal Secretion SARS-CoV-2 & FLU Antigen (Rapid) - Final 09/23/22 07:34 Sputum, Tracheal Aspirate Gram Stain - Final 09/23/22 07:34 Sputum, Tracheal Aspirate Respiratory Culture - Final Staphylococcus aureus 09/22/22 07:20 Sputum, Induced/Lukens Gram Stain - Final 09/22/22 07:20 Sputum, Induced/Lukens Respiratory Culture - Final Mixed normal respiratory amparo. No Streptococcus pneumoniae, beta-hemolytic Streptococcus or Staphylococcus aureus isolated. 09/17/22 15:45 Urine, Clean Catch Urine Culture - Final Culture exhibits no growth. 09/16/22 07:05 Nasal Secretion SARS-CoV-2 & FLU Antigen (Rapid) - Final Radiography Diagnostic Testing: Radiology Impression Chest X-Ray 10/09/22 20:10 IMPRESSION: No acute cardiopulmonary disease. Electronically Signed: Vira Flannery MD at 20:33 EST Reading Location ID and State: [id number] / Tel , Service support , Physical Exam Const Constitutional Narrative: Sitting up in chair, no acute distress HEENT normocephalic and head/scalp atraumatic Eyes Eyes Narrative: EOM grossly intact, anicteric Neck supple Resp normal respiratory effort Cardio regular rate and regular rhythm GI soft to palpation, non-tender and non-distended Extremity Extremity Narrative: No edema appreciated Neuro moves all extremities Neuro Narrative: No overt focal deficits appreciated Psych Psych Narrative: Cooperative Assessment & Plan Assessment/Plan (1) Non-ST elevated myocardial infarction (non-STEMI): (2) Acute renal failure: (3) Hypertensive emergency: (4) 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 Will need to continue to adjust regimen to improve tolerance TPN would not be a good long-term option. #Fever of unknown origin Has been febrile overnight, lactic acid 3.3, WBC count slightly up, no evident source of infection, chest x-ray improved from previous. Pancultures Will start broad-spectrum antibiotics pending culture results Respiratory panel ordered as well 10/07: Cultures pending, on Vanco and Zosyn, O2 sat 99%, tachypnea improving. Is leukopenic today, will monitor may need to repeat to verify. 10/08: So far cultures are no growth to date and seems to be improving. May have been that this was aspiration pneumonia versus pneumonitis though Pro-José was elevated at 1.6. Continue antibiotics at this time and recheck Pro-José in the morning. Leukopenia slightly improved, does have elevated eosinophil count, will monitor differential 10/09: Leukopenia improved 10/10: Fever has improved, sputum growing staph hemolyticus which is sensitive to vancomycin. Will stop Zosyn. #DKA in the setting of 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 with long-term current use of insulin?resolved Currently only on sliding scale insulin and having worsening glucoses but they are widely variable and not consistent which makes titration difficult Will start a basal insulin conservatively at 5 and trend, will likely need further titration but given extreme highs followed by glucose in the 160s concern for hypoglycemia 10/04: Glucoses have escalated, will increase long-acting and start Premeal in addition to sliding scale, will check BMP at this afternoon to assure no gap opens with his persistent elevation 10/05: Had escalating glucose despite increasing insulin, Increased on BMP and he was placed on insulin drip in the ICU. Gap is closed and he is doing well, calculated daily requirement and have added 25 units of long-acting insulin with 10 units every 4 prandial tube feeds and every 4 sliding scale insulin. Continue to monitor BMPs 10/06: Glucose may have significantly elevated due to underlying infection, glucose still widely variable and did have a low yesterday evening that a.m. glucose of 315, 1 to avoid hypoglycemia however, will further decrease insulin with meals 10/07: Continue to adjust insulin, with vomiting yesterday tube feeds were put on hold so we will not need every 4 hours sliding scale when this is held, will likely need to start back on lower feeds given his vomiting of tube feeds and concern for aspiration. Speech and dietary following 10/08: Discussed with nutrition, given his aspiration risk and difficulty being compliant with posturing will transition to bolus feeding. 10/09: Glucose under better control #TREVOR requiring dialysis Nephrology following Has left-sided tunneled hemodialysis catheter, also has PEG tube Still making urine but kidney function is not recovering yet, was unable to tolerate biopsy due to respiratory status and anxiety Continue dialysis per nephrology recommendations 10/05: Nephrology following 10/06: Dialysis 10/05 completed 10/07: Nephrology following #NSTEMI Had cardiac cath this admission which showed diffusely diseased 2 vessels with LV systolic dysfunction with an LV gram EF of 40%. It was recommended tertiary care transfer referral for targeted PCI after he is stabilized. 09/30 attempted to transfer but they were not excepting transfers at this time. Previous hospitalist discussed with cardiology and it was agreed that he could continue medical management with outpatient follow-up with cardiac surgeon. Coreg, aspirin, atorvastatin, Lasix Cardiology following #Cardiomyopathy Unclear etiology Did have echo here on 09/16 with an EF of 35% and stage III diastolic dysfunction and moderate to severe global hypokinesis of the left ventricle On Coreg Cannot tolerate ANIA/ARB due to kidney function #Hypertension Continue to adjust antihypertensives, Coreg increased on 10/04 Nephrology recommended to hold hydralazine and Coreg on the mornings of dialysis, added instructions #Congenital deafness Reads lips and writes on paper #Acute hypoxic respiratory failure resolved Was intubated in the ICU and has since been extubated #DVT ppx: No longer on systemic anticoagulation so started heparin subcu Susu Goode MD Charges/Coding Visit Charges Inpatient E&M: 65803 Subs Hosp L2
[2022-10-10 08:20] LABS: ALB/GLOB Ratio 0.4 RATIO (0.9-2.4); AST(SGOT) 25 U/L (15-37); Alanine Aminotransfer ALT/SGPT 11 U/L (16-61); Albumin, Serum 1.7 g/dL (3.2-5.0); Alkaline Phosphatase 91 U/L (45-117); Anion Gap 14 (5-15); BUN 29 mg/dL (7-18); Chloride 99 mmol/L (98-107); Creatinine, Serum 4.16 mg/dL (0.70-1.30); EST Glomerular Filtration Rate 16 mL/min (>60); Est Glom Filt Rate - Afr Amer 19 mL/min (>60); Estimated Creatinine Clearance 19.96 ml/min; Globulin 4.7 g/dL (2.2-4.2); Glucose 237 mg/dL (74-106); Potassium 3.8 mmol/L (3.5-5.1); Protein, Total 6.4 g/dL (6.4-8.2); Sodium Level 135 mmol/L (136-145)
[2022-10-10 09:18] LABS: Procalcitonin 1.08 ng/mL (0.00-0.09)
[2022-10-10] MEDS: Dorzolamide HCL/Timolol 10 ml Bottle 1 DRP OPHTHALMIC ×2 (09:32→21:58)
[2022-10-10] MEDS: Menthol/Lanolin/Calamine/Znox 113 GM Tube 1 APPLIC TOPICAL ×2 (09:33→22:14)
--- NOTE | 2022-10-10 09:41 | RAD_ITS ---
STUDY: X-RAY - ABDOMEN/PELVIS REASON FOR EXAM: Male, 57 years old. PEG TECHNIQUE: Two portable AP supine views of the abdomen and pelvis. COMPARISON: 10/06/2022 FINDINGS: Stable mild elevation right hemidiaphragm. Bilateral airspace disease right greater than left. Lodging of the right costophrenic angle. Gastrostomy catheter seen over the area of the stomach. Nonobstructing bowel gas pattern. Appendectomy clips. Arteriosclerosis. RAD/Abdomen Single View (Portable) IMPRESSION: Nonobstructive bowel gas pattern. No significant interval change. Electronically Signed: Suzanne Yeh MD at 12:01 EST Reading Location ID and State: , Service support ,
--- NOTE | 2022-10-10 11:49 | CPS ---
Addendum entered and electronically signed by Gabriela Valenzuela RRT 10/10/22 11:53: Pt's nurse was made aware of the aerosol rx and that pt states he was feeling better Original Note: Pt called for PRN aerosol rx. Pt had a visitor who was able to sign with him. He was asked if he felt better after rx and she states he responded yes. He was asked if he felt like he was doing ok and he once again said yes to visitor. The attempt was made to get pt to cough but he was unable to give strong cough.
[2022-10-10] MEDS: Insulin Glargine-YFGN 100 UNIT/ML Pen 20 UNIT SC (12:04)
[2022-10-10 12:46] LABS: Bedside Glucose 293 mg/dL (74-106)
--- NOTE | 2022-10-10 13:00 | NURSING ---
Pt bipap applied as he motioned he was having trouble breathing. Pt rips off bipap and 5 L NC applied to pt. Resp aware
[2022-10-10] MEDS: hydrALAZINE 50 MG Tablet GT ×2 (13:14→21:59)
[2022-10-10] MEDS: Clopidogrel Bisulfate 75 MG Tablet PO (13:14)
[2022-10-10] MEDS: Furosemide 40 MG Tablet PO (13:14)
[2022-10-10] MEDS: amLODIPine 5 MG Tablet PO (13:14)
[2022-10-10] MEDS: Aspirin E.C. 81 MG Tablet PO (13:14)
[2022-10-10] MEDS: Isosorbide DN 10 MG Tablet 5 MG PO ×2 (13:15→21:59)
[2022-10-10] MEDS: Carvedilol 25 MG Tablet GT ×2 (13:15→21:59)
--- NOTE | 2022-10-10 13:54 | NURSING ---
Per Dr. Goode, hold all tube feedings at this time as pt did not tolerate it well last night and lungs are very rhoncerous
[2022-10-10 15:25] LABS: Bedside Glucose 183 mg/dL (74-106)
[2022-10-10 18:15] LABS: Bedside Glucose 76 mg/dL (74-106)
[2022-10-10] MEDS: Atorvastatin Calcium 40 MG Tablet GT (21:59)
[2022-10-10] MEDS: Latanoprost 0.005% 1 Bottle 1 DRP OPHTHALMIC (21:59)
[2022-10-11] VITALS (21 sets, daily range): BP systolic 129–162; BP diastolic 60–78; PULSE 79–104; RESP 12–36; TEMP 36.8–37.1; O2SAT 92–988
[2022-10-11] MEDS: Metoclopramide 10 MG/2 ML Vial 5 MG IV ×5 (01:07→23:33)
[2022-10-11 01:15] LABS: Bedside Glucose 107 mg/dL (74-106)
[2022-10-11 01:30] LABS: Bedside Glucose 131 mg/dL (74-106)
[2022-10-11] MEDS: hydrALAZINE 50 MG Tablet GT ×3 (06:07→21:33)
[2022-10-11] MEDS: Heparin Injection (Vial) 5,000 UNIT/ML VIAL 5000 UNIT SC ×3 (06:08→21:31)
[2022-10-11] MEDS: 0.9% Saline Lock 10 ML Syringe IV ×5 (06:10→23:34)
[2022-10-11 06:13] LABS: Absolute Lymphocyte Count 1.02 X10^3/uL (0.83-4.51); Absolute Neutrophil Count 2.1 X10^3/uL (2.0-7.7); Basophil# 0.09 X10^3/uL; Basophil% 1.9 % (0-1); Eosinophil# 0.47 X10^3/uL; Eosinophils% 9.8 % (0-5); Hematocrit 22.6 % (40-54); Hemoglobin 7.1 g/dL (13.0-16.5); Lymphocyte # 1.02 X10^3/ul (0.83-4.51); Lymphocyte % 21.3 % (19-41); Mean Corp Hgb Conc 31.4 g/dL (32-36); Mean Corpuscular Hgb 30.3 pg (27.0-32.0); Mean Corpuscular Volume 96.6 fL (80-94); Mean Platelet Vol. 11.4 fl (6.2-12.0); Monocyte# 1.08 X10^3/uL; Monocyte% 22.5 % (0-10); NRBC Flagged by Analyzer 0 % (0-5); Neutrophil # 2.12 X10^3/uL (2.7-7.7); Neutrophil % 44.3 % (47-70); Platelet Count 348 K/mm3 (150-450); RBC Distribution Width CV 12.6 % (11.6-14.6); RBC Distribution Width SD 43.8 fl (35.1-43.9); Red Blood Count 2.34 M/mm3 (4.6-6.2); White Blood Count 4.8 K/mm3 (4.4-11.0)
[2022-10-11 06:40] LABS: ALB/GLOB Ratio 0.3 RATIO (0.9-2.4); AST(SGOT) 28 U/L (15-37); Alanine Aminotransfer ALT/SGPT 10 U/L (16-61); Albumin, Serum 1.5 g/dL (3.2-5.0); Alkaline Phosphatase 79 U/L (45-117); Anion Gap 11 (5-15); BUN 40 mg/dL (7-18); BUN/Creat Ratio 6.7 RATIO (10-20); Calcium,Total 8.2 mg/dL (8.5-10.1); Chloride 102 mmol/L (98-107); Creatinine, Serum 5.98 mg/dL (0.70-1.30); EST Glomerular Filtration Rate 10 mL/min (>60); Est Glom Filt Rate - Afr Amer 13 mL/min (>60); Estimated Creatinine Clearance 13.83 ml/min; Globulin 4.5 g/dL (2.2-4.2); Glucose 158 mg/dL (74-106); Potassium 3.8 mmol/L (3.5-5.1); Sodium Level 137 mmol/L (136-145)
[2022-10-11 07:15] LABS: Bedside Glucose 166 mg/dL (74-106)
--- NOTE | 2022-10-11 10:10 | PN.HOSP_ITS ---
Subjective Subjective Evaluated, brother and mom at bedside. They were updated, patient has no complaint including no abdominal pain complaints. Has a slight cough, breathing improved. Per report had bowel movement. Starting tube feeds again at slow rate today Objective Data Objective Data Vital Signs: Vital Signs Temp Pulse Resp BP Pulse Ox O2 Del Method O2 Flow Rate 98.7 F 85 17 141/71 H 95 Nasal Cannula 3 10/11/22 03:45 10/11/22 07:32 10/11/22 03:45 10/11/22 06:11 10/11/22 03:45 10/11/22 03:46 10/11/22 03:46 FiO2 45 10/10/22 03:23 Oxygen Flow Rate (L/min) 3 Oxygen Delivery Method Nasal Cannula Weight: 72.6 kg Body Mass Index (BMI) 25.8 Intake & Output: Intake and Output for Last 24 Hours 10/09/22 10/10/22 10/11/22 23:59 23:59 23:59 Intake Total 2070 / 2070 670 / 670 Output Total 775 / 1275 700 / 700 500 / 500 Balance 1295 / 795 -30 / -30 -500 / -500 Lab / Micro Data Result Diagrams: 10/11/22 05:16 10/11/22 05:16 Labs: Laboratory Results - last 24 hr 10/10/22 12:01: POC Glucose 293 H 10/10/22 15:02: POC Glucose 183 H 10/10/22 17:57: POC Glucose 76 10/10/22 20:57: POC Glucose 107 H 10/11/22 01:08: POC Glucose 131 H 10/11/22 05:16: WBC 4.8, RBC 2.34 L, Hgb 7.1 L, Hct 22.6 L, MCV 96.6 H, MCH 30.3, MCHC 31.4 L, RDW Std Deviation 43.8, RDW Coeff of Jenifer 12.6, Plt Count 348, MPV 11.4, Immature Gran % (Auto) 0.200, Neut % (Auto) 44.3 L, Lymph % (Auto) 21.3, Archer % (Auto) 22.5 H, Eos % (Auto) 9.8 H, Baso % (Auto) 1.9 H, Absolute Neuts (auto) 2.1, Absolute Lymphs (auto) 1.02, Nucleated RBC % 0 10/11/22 05:16: Sodium 137, Potassium 3.8, Chloride 102, Carbon Dioxide 24.0, Anion Gap 11, BUN 40 H, Creatinine 5.98 H, Estim Creat Clear Calc 13.83, Est GFR (MDRD) Af Amer 13 L, Est GFR (MDRD) Non-Af 10 L, BUN/Creatinine Ratio 6.7 L, Glucose 158 H, Calcium 8.2 L, Total Bilirubin 0.40, AST 28, ALT 10 L, Alkaline Phosphatase 79, Total Protein 6.0 L, Albumin 1.5 L, Globulin 4.5 H, Albumin/Globulin Ratio 0.3 L 10/11/22 06:03: POC Glucose 166 H Micro: Microbiology 10/06/22 15:10 Sputum, Induced/Lukens Gram Stain - Final 10/06/22 15:10 Sputum, Induced/Lukens Respiratory Culture - Final Staphylococcus haemolyticus 10/06/22 09:00 Urine Catheter - Lopez Urine Culture - Final Culture exhibits no growth. 10/06/22 09:30 Blood Culture (Wb) - Anticubital Left Blood Culture - Preliminary No growth in 48 hours. 10/06/22 09:00 Blood Culture (Wb) - Anticubital Right Blood Culture - Preliminary No growth in 48 hours. 10/06/22 09:00 Mucosa - Nasopharyngeal Respiratory Panel (PCR) - Final 10/06/22 09:00 Nasal Secretion SARS-CoV-2 & FLU Antigen (Rapid) - Final 09/23/22 07:34 Sputum, Tracheal Aspirate Gram Stain - Final 09/23/22 07:34 Sputum, Tracheal Aspirate Respiratory Culture - Final Staphylococcus aureus 09/22/22 07:20 Sputum, Induced/Lukens Gram Stain - Final 09/22/22 07:20 Sputum, Induced/Lukens Respiratory Culture - Final Mixed normal respiratory amparo. No Streptococcus pneumoniae, beta-hemolytic Streptococcus or Staphylococcus aureus isolated. 09/17/22 15:45 Urine, Clean Catch Urine Culture - Final Culture exhibits no growth. 09/16/22 07:05 Nasal Secretion SARS-CoV-2 & FLU Antigen (Rapid) - Final Radiography Diagnostic Testing: Radiology Impression KUB X-Ray 10/10/22 09:41 IMPRESSION: Nonobstructive bowel gas pattern. No significant interval change. Electronically Signed: Suzanne Yeh MD at 12:01 EST Reading Location ID and State: , Service support , Physical Exam Const Constitutional Narrative: Laying in bed, no acute distress HEENT normocephalic and head/scalp atraumatic Eyes Eyes Narrative: EOM grossly intact, anicteric Neck supple Resp normal respiratory effort Cardio regular rate and regular rhythm GI soft to palpation, non-tender and non-distended Extremity Extremity Narrative: No edema appreciated Neuro moves all extremities Neuro Narrative: No overt focal deficits appreciated Psych Psych Narrative: Cooperative Assessment & Plan Assessment/Plan (1) Non-ST elevated myocardial infarction (non-STEMI): (2) Acute renal failure: (3) Hypertensive emergency: (4) 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 Will need to continue to adjust regimen to improve tolerance TPN would not be a good long-term option. 10/11/: TF were held yesterday, doing well today, denying any abdominal pain or nausea, reportedly had bowel movement overnight. We will schedule Zofran, restart tube feeds 4 times a day with smaller amount, on Reglan, scheduled MiraLAX in the event that there is a component of poor transit. May need to consider GI input or surgery for jejunal feedings if absolutely unable to tolerate PEG tube to maintain nutrition #Macrocytic anemia iron studies being checked by nephrology, transfusion threshold of 7, may need transfusion tomorrow Will have HD tomorrow as well #Fever of unknown origin Has been febrile overnight, lactic acid 3.3, WBC count slightly up, no evident source of infection, chest x-ray improved from previous. Pancultures Will start broad-spectrum antibiotics pending culture results Respiratory panel ordered as well 10/07: Cultures pending, on Vanco and Zosyn, O2 sat 99%, tachypnea improving. Is leukopenic today, will monitor may need to repeat to verify. 10/08: So far cultures are no growth to date and seems to be improving. May have been that this was aspiration pneumonia versus pneumonitis though Pro-José was elevated at 1.6. Continue antibiotics at this time and recheck Pro-José in the morning. Leukopenia slightly improved, does have elevated eosinophil count, will monitor differential 10/09: Leukopenia improved 10/10: Fever has improved, sputum growing staph hemolyticus which is sensitive to vancomycin. Will stop Zosyn. Has been on antibiotics since 10/06. #DKA in the setting of 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 with long-term current use of insulin?resolved Currently only on sliding scale insulin and having worsening glucoses but they are widely variable and not consistent which makes titration difficult Will start a basal insulin conservatively at 5 and trend, will likely need further titration but given extreme highs followed by glucose in the 160s concern for hypoglycemia 10/04: Glucoses have escalated, will increase long-acting and start Premeal in addition to sliding scale, will check BMP at this afternoon to assure no gap opens with his persistent elevation 10/05: Had escalating glucose despite increasing insulin, Increased on BMP and he was placed on insulin drip in the ICU. Gap is closed and he is doing well, calculated daily requirement and have added 25 units of long-acting insulin with 10 units every 4 prandial tube feeds and every 4 sliding scale insulin. Cont inue to monitor BMPs 10/06: Glucose may have significantly elevated due to underlying infection, glu cose still widely variable and did have a low yesterday evening that a.m. glucose of 315, 1 to avoid hypoglycemia however, will further decrease insulin with meals 10/07: Continue to adjust insulin, with vomiting yesterday tube feeds were put on hold so we will not need every 4 hours sliding scale when this is held, will likely need to start back on lower feeds given his vomiting of tube feeds and concern for aspiration. Speech and dietary following 10/08: Discussed with nutrition, given his aspiration risk and difficulty being compliant with posturing will transition to bolus feeding. 10/09: Glucose under better control, presently on Humalog 3 units every 4, glargine 20 daily, sliding scale. Will adjust lispro and sliding scale to 4 times daily to coincide with tube feeds since they were decreased today #TREVOR requiring dialysis Nephrology following Has left-sided tunneled hemodialysis catheter, also has PEG tube Still making urine but kidney function is not recovering yet, was unable to tolerate biopsy due to respiratory status and anxiety Continue dialysis per nephrology recommendations 10/05: Nephrology following 10/06: Dialysis 10/05 completed 10/07: Nephrology following #NSTEMI Had cardiac cath this admission which showed diffusely diseased 2 vessels with LV systolic dysfunction with an LV gram EF of 40%. It was recommended tertiary care transfer referral for targeted PCI after he is stabilized. 09/30 attempted to transfer but they were not excepting transfers at this time. Previous hospitalist discussed with cardiology and it was agreed that he could continue medical management with outpatient follow-up with cardiac surgeon. Coreg, aspirin, atorvastatin, Lasix Cardiology following #Cardiomyopathy Unclear etiology Did have echo here on 09/16 with an EF of 35% and stage III diastolic dysfunction and moderate to severe global hypokinesis of the left ventricle On Coreg Cannot tolerate ANIA/ARB due to kidney function #Hypertension Continue to adjust antihypertensives, Coreg increased on 10/04 Nephrology recommended to hold hydralazine and Coreg on the mornings of dialysis, added instructions #Congenital deafness Reads lips and writes on paper #Acute hypoxic respiratory failure resolved Was intubated in the ICU and has since been extubated #DVT ppx: heparin subcu Susu Goode MD Charges/Coding Visit Charges Inpatient E&M: 73031 Subs Hosp L2
--- NOTE | 2022-10-11 10:56 | PCM.PN.REN ---
Subjective Subjective No acute events overnight Blood pressure stable Making urine Objective Data Objective Data Vital Signs: Vital Signs Temp Pulse Resp BP Pulse Ox O2 Del Method O2 Flow Rate 98.2 F 94 17 139/71 H 98 Nasal Cannula 3 10/11/22 10:48 10/11/22 10:48 10/11/22 10:48 10/11/22 10:48 10/11/22 10:48 10/11/22 10:48 10/11/22 10:48 FiO2 45 10/10/22 03:23 Oxygen Flow Rate (L/min) 3 Oxygen Delivery Method Nasal Cannula Weight: 72.6 kg Body Mass Index (BMI) 25.8 Intake & Output: Intake and Output for Last 24 Hours 10/09/22 10/10/22 10/11/22 23:59 23:59 23:59 Intake Total 2070 / 2070 670 / 670 Output Total 775 / 1275 700 / 700 500 / 500 Balance 1295 / 795 -30 / -30 -500 / -500 Lab / Micro Data Result Diagrams: 10/11/22 05:16 10/11/22 05:16 Labs: Laboratory Results - last 24 hr 10/10/22 12:01: POC Glucose 293 H 10/10/22 15:02: POC Glucose 183 H 10/10/22 17:57: POC Glucose 76 10/10/22 20:57: POC Glucose 107 H 10/11/22 01:08: POC Glucose 131 H 10/11/22 05:16: WBC 4.8, RBC 2.34 L, Hgb 7.1 L, Hct 22.6 L, MCV 96.6 H, MCH 30.3, MCHC 31.4 L, RDW Std Deviation 43.8, RDW Coeff of Jenifer 12.6, Plt Count 348, MPV 11.4, Immature Gran % (Auto) 0.200, Neut % (Auto) 44.3 L, Lymph % (Auto) 21.3, [place] % (Auto) 22.5 H, Eos % (Auto) 9.8 H, Baso % (Auto) 1.9 H, Absolute Neuts (auto) 2.1, Absolute Lymphs (auto) 1.02, Nucleated RBC % 0 10/11/22 05:16: Sodium 137, Potassium 3.8, Chloride 102, Carbon Dioxide 24.0, Anion Gap 11, BUN 40 H, Creatinine 5.98 H, Estim Creat Clear Calc 13.83, Est GFR (MDRD) Af Amer 13 L, Est GFR (MDRD) Non-Af 10 L, BUN/Creatinine Ratio 6.7 L, Glucose 158 H, Calcium 8.2 L, Total Bilirubin 0.40, AST 28, ALT 10 L, Alkaline Phosphatase 79, Total Protein 6.0 L, Albumin 1.5 L, Globulin 4.5 H, Albumin/Globulin Ratio 0.3 L 10/11/22 06:03: POC Glucose 166 H Micro: Microbiology 10/06/22 15:10 Sputum, Induced/Lukens Gram Stain - Final 10/06/22 15:10 Sputum, Induced/Lukens Respiratory Culture - Final Staphylococcus haemolyticus 10/06/22 09:00 Urine Catheter - Lopez Urine Culture - Final Culture exhibits no growth. 10/06/22 09:30 Blood Culture (Wb) - Anticubital Left Blood Culture - Preliminary No growth in 48 hours. 10/06/22 09:00 Blood Culture (Wb) - Anticubital Right Blood Culture - Preliminary No growth in 48 hours. 10/06/22 09:00 Mucosa - Nasopharyngeal Respiratory Panel (PCR) - Final 10/06/22 09:00 Nasal Secretion SARS-CoV-2 & FLU Antigen (Rapid) - Final 09/23/22 07:34 Sputum, Tracheal Aspirate Gram Stain - Final 09/23/22 07:34 Sputum, Tracheal Aspirate Respiratory Culture - Final Staphylococcus aureus 09/22/22 07:20 Sputum, Induced/Lukens Gram Stain - Final 09/22/22 07:20 Sputum, Induced/Lukens Respiratory Culture - Final Mixed normal respiratory amparo. No Streptococcus pneumoniae, beta-hemolytic Streptococcus or Staphylococcus aureus isolated. 09/17/22 15:45 Urine, Clean Catch Urine Culture - Final Culture exhibits no growth. 09/16/22 07:05 Nasal Secretion SARS-CoV-2 & FLU Antigen (Rapid) - Final Radiography Diagnostic Testing: Radiology Impression KUB X-Ray 10/10/22 09:41 IMPRESSION: Nonobstructive bowel gas pattern. No significant interval change. Electronically Signed: Suzanne Yeh MD at 12:01 EST Reading Location ID and State: , Service support , Physical Exam Narrative Patient is resting comfortably S1-S2 regular Normal respiration positive for PEG Light urine Assessment & Plan Assessment/Plan (1) TREVOR (acute kidney injury): (2) Benign essential hypertension: (3) Type 1 diabetes: (4) CKD (chronic kidney disease): PLAN: Plan - Baseline renal function is unclear serum creatinine was 1.60 mg/dL in 2020.? The last available serum creatinine in [facility] was from 04/22/2014 at 1.3 mg/dL. Suspect the patient has underlying diabetic kidney disease.? He is proteinuric in nephrotic range and has had longstanding, poorly controlled diabetes with retinopathy. Serologies including ANCA, C3, and C4 are negative.? Immunofixation is negative for monoclonal protein. It is possible that we are seeing progression of diabetic kidney disease towards ESRD. Unfortunately, biopsy could not be done because of patient's respiratory status and anxiety. Patient had cardiac catheterization 09/28: Significant diffuse two-vessel disease.? Echo: EF 35% with stage III diastolic dysfunction and pulmonary hypertension - patient has PEG. Patient had modified barium swallow test yesterday with recommendations of strict n.p.o., continue utilizing PEG tube. - Blood pressures acceptable, recommend to hold carvedilol and hydralazine mornings of dialysis. - No acute indication for [employer] today, patient to dialyze tomorrow over 3.5 hours and attempt fluid removal as pt/bp tolerates. He tolerated 1L UF yesterday with HD. EDW not established yet but seems to be nearing a dry weight. Giving lasix on non-hd days. Outpatient dialysis arrangements Wednesday at [facility]. - WBC 3.6. Blood cx NGTD from 10/06. 10/11 -Hemoglobin remains low, check iron studies -Transfuse as needed for hemoglobin less than 7 -Plan on hemodialysis tomorrow, maintain on Wednesday dialysis schedule Thank you please call [phone] with any concerns
[2022-10-11] MEDS: Insulin Lispro 100 UNIT/ML INSULN.PEN SC ×5 (10:58→18:12)
[2022-10-11] MEDS: Acetaminophen 650 MG/20 ML UDC GT (10:59)
[2022-10-11] MEDS: Carvedilol 25 MG Tablet GT ×2 (10:59→21:33)
[2022-10-11] MEDS: Isosorbide DN 10 MG Tablet 5 MG PO ×2 (10:59→21:32)
[2022-10-11] MEDS: Aspirin E.C. 81 MG Tablet PO (10:59)
[2022-10-11] MEDS: amLODIPine 5 MG Tablet PO (11:00)
[2022-10-11] MEDS: NEPRO TUBE FEED 1,000 ML LIQUID 125 ML GT ×4 (11:00→22:00)
[2022-10-11] MEDS: Clopidogrel Bisulfate 75 MG Tablet PO (11:00)
[2022-10-11] MEDS: Furosemide 40 MG Tablet PO (11:00)
[2022-10-11] MEDS: Insulin Glargine-YFGN 100 UNIT/ML Pen 20 UNIT SC (11:08)
[2022-10-11] MEDS: Menthol/Lanolin/Calamine/Znox 113 GM Tube 1 APPLIC TOPICAL ×2 (11:09→21:31)
[2022-10-11] MEDS: Dorzolamide HCL/Timolol 10 ml Bottle 1 DRP OPHTHALMIC ×2 (11:10→21:30)
[2022-10-11 11:15] LABS: Iron 31 ug/dL (65-175); Iron Binding Capacity,Total 141 ug/dL (250-450)
[2022-10-11 13:10] LABS: Bedside Glucose 217 mg/dL (74-106)
[2022-10-11 16:26] LABS: Bedside Glucose 220 mg/dL (74-106)
[2022-10-11] MEDS: Ondansetron 4 MG/2 ML Vial IV ×2 (18:16→23:33)
[2022-10-11 18:56] LABS: Bedside Glucose 165 mg/dL (74-106)
[2022-10-11] MEDS: Polyethylene Glycol 3350 17 GM PACKET PO (21:31)
[2022-10-11] MEDS: Latanoprost 0.005% 1 Bottle 1 DRP OPHTHALMIC (21:31)
[2022-10-11] MEDS: Atorvastatin Calcium 40 MG Tablet GT (21:32)
[2022-10-11] MEDS: Dextrose 50%-Water 25 GM/50 ML DISP.SYRIN IV (23:42)
[2022-10-12] VITALS (20 sets, daily range): BP systolic 112–155; BP diastolic 58–77; PULSE 82–105; RESP 16–20; TEMP 36–39.1; O2SAT 92–96
[2022-10-12 00:35] LABS: Bedside Glucose 58 mg/dL (74-106)
[2022-10-12 00:35] LABS: Bedside Glucose 210 mg/dL (74-106)
[2022-10-12 04:11] LABS: Bedside Glucose 204 mg/dL (74-106)
[2022-10-12] MEDS: Metoclopramide 10 MG/2 ML Vial 5 MG IV ×3 (05:41→17:27)
[2022-10-12] MEDS: Ondansetron 4 MG/2 ML Vial IV ×3 (05:41→18:21)
[2022-10-12] MEDS: Insulin Lispro 100 UNIT/ML INSULN.PEN SC ×6 (05:42→18:26)
[2022-10-12] MEDS: Heparin Injection (Vial) 5,000 UNIT/ML VIAL 5000 UNIT SC (05:43)
[2022-10-12] MEDS: 0.9% Saline Lock 10 ML Syringe IV ×4 (05:43→18:21)
[2022-10-12] MEDS: Acetaminophen 650 MG/20 ML UDC GT (05:50)
[2022-10-12 06:40] LABS: Bedside Glucose 225 mg/dL (74-106)
[2022-10-12 07:44] LABS: Absolute Lymphocyte Count 0.64 X10^3/uL (0.83-4.51); Absolute Neutrophil Count 0.6 X10^3/uL (2.0-7.7); Basophil# 0.03 X10^3/uL; Basophil% 1.5 % (0-1); Eosinophil# 0.09 X10^3/uL; Eosinophils% 4.4 % (0-5); Hematocrit 21.9 % (40-54); Hemoglobin 6.6 g/dL (13.0-16.5); Lymphocyte # 0.64 X10^3/ul (0.83-4.51); Lymphocyte % 31.2 % (19-41); Mean Corp Hgb Conc 30.1 g/dL (32-36); Mean Corpuscular Hgb 29.3 pg (27.0-32.0); Mean Corpuscular Volume 97.3 fL (80-94); Mean Platelet Vol. 11.2 fl (6.2-12.0); Monocyte# 0.65 X10^3/uL; Monocyte% 31.7 % (0-10); NRBC Flagged by Analyzer 0 % (0-5); Neutrophil # 0.64 X10^3/uL (2.7-7.7); Neutrophil % 31.2 % (47-70); POSITIVE DIFFERENTIAL YES; Platelet Count 359 K/mm3 (150-450); RBC Distribution Width CV 12.3 % (11.6-14.6); RBC Distribution Width SD 43.1 fl (35.1-43.9); Red Blood Count 2.25 M/mm3 (4.6-6.2); White Blood Count 2.1 K/mm3 (4.4-11.0)
[2022-10-12 07:45] LABS: Differential Indicated SCAN CRITERIA MET
[2022-10-12 08:17] LABS: Vancomycin, Random Level 12.7 ug/mL (0.0-15.0)
[2022-10-12 08:21] LABS: ALB/GLOB Ratio 0.3 RATIO (0.9-2.4); AST(SGOT) 25 U/L (15-37); Alanine Aminotransfer ALT/SGPT 13 U/L (16-61); Albumin, Serum 1.5 g/dL (3.2-5.0); Alkaline Phosphatase 85 U/L (45-117); Anion Gap 11 (5-15); BUN 55 mg/dL (7-18); BUN/Creat Ratio 7.5 RATIO (10-20); Calcium,Total 8.3 mg/dL (8.5-10.1); Chloride 102 mmol/L (98-107); Creatinine, Serum 7.38 mg/dL (0.70-1.30); EST Glomerular Filtration Rate 8 mL/min (>60); Est Glom Filt Rate - Afr Amer 10 mL/min (>60); Globulin 4.6 g/dL (2.2-4.2); Glucose 233 mg/dL (74-106); Potassium 3.5 mmol/L (3.5-5.1); Protein, Total 6.1 g/dL (6.4-8.2); Sodium Level 136 mmol/L (136-145)
--- NOTE | 2022-10-12 09:00 | PN.HOSP_ITS ---
Subjective Subjective Has been having intractable N/V with PEG. Objective Data Objective Data Vital Signs: Vital Signs Temp Pulse Resp BP Pulse Ox O2 Del Method O2 Flow Rate 36.8 C 82 18 132/58 H 96 Nasal Cannula 3 10/12/22 08:14 10/12/22 08:14 10/12/22 08:14 10/12/22 08:14 10/12/22 05:36 10/12/22 08:14 10/12/22 05:36 FiO2 40 10/11/22 19:55 Oxygen Flow Rate (L/min) 3 Oxygen Delivery Method Nasal Cannula Weight: 72.6 kg Body Mass Index (BMI) 25.8 Intake & Output: Intake and Output for Last 24 Hours 10/10/22 10/11/22 10/12/22 23:59 23:59 23:59 Intake Total 670 / 670 1285 / 1285 200 / 200 Output Total 700 / 700 850 / 900 200 / 200 Balance -30 / -30 435 / 385 0 / 0 Lab / Micro Data Result Diagrams: 10/12/22 07:13 10/12/22 07:13 Labs: Laboratory Results - last 24 hr 10/11/22 05:16: Iron 31 L, TIBC 141 L, Iron Saturation 22.0 10/11/22 10:56: POC Glucose 217 H 10/11/22 15:26: POC Glucose 220 H 10/11/22 18:07: POC Glucose 165 H 10/11/22 23:37: POC Glucose 58 L 10/11/22 23:58: POC Glucose 210 H 10/12/22 03:40: POC Glucose 204 H 10/12/22 05:39: POC Glucose 225 H 10/12/22 07:13: Random Vancomycin 12.7 10/12/22 07:13: WBC 2.1 L, RBC 2.25 L, Hgb 6.6 L, Hct 21.9 L, MCV 97.3 H, MCH 29.3, MCHC 30.1 L, RDW Std Deviation 43.1, RDW Coeff of Jenifer 12.3, Plt Count 359, MPV 11.2, Immature Gran % (Auto) 0.000, Neut % (Auto) 31.2 L, Lymph % (Auto) 31.2, Brantley % (Auto) 31.7 H, Eos % (Auto) 4.4, Baso % (Auto) 1.5 H, Absolute Neuts (auto) 0.6 L, Absolute Lymphs (auto) 0.64 L, Nucleated RBC % 0 10/12/22 07:13: Sodium 136, Potassium 3.5, Chloride 102, Carbon Dioxide 23.0, Anion Gap 11, BUN 55 H, Creatinine 7.38 H, Estim Creat Clear Calc 11.20, Est GFR (MDRD) Af Amer 10 L, Est GFR (MDRD) Non-Af 8 L, BUN/Creatinine Ratio 7.5 L, Glucose 233 H, Calcium 8.3 L, Total Bilirubin 0.30, AST 25, ALT 13 L, Alkaline Phosphatase 85, Total Protein 6.1 L, Albumin 1.5 L, Globulin 4.6 H, Albumin/Globulin Ratio 0.3 L Micro: Microbiology 10/06/22 09:30 Blood Culture (Wb) - Anticubital Left Blood Culture - Final No growth in 5 days. 10/06/22 09:00 Blood Culture (Wb) - Anticubital Right Blood Culture - Final No growth in 5 days. 10/06/22 15:10 Sputum, Induced/Lukens Gram Stain - Final 10/06/22 15:10 Sputum, Induced/Lukens Respiratory Culture - Final Staphylococcus haemolyticus 10/06/22 09:00 Urine Catheter - Lopze Urine Culture - Final Culture exhibits no growth. 10/06/22 09:00 Mucosa - Nasopharyngeal Respiratory Panel (PCR) - Final 10/06/22 09:00 Nasal Secretion SARS-CoV-2 & FLU Antigen (Rapid) - Final 09/23/22 07:34 Sputum, Tracheal Aspirate Gram Stain - Final 09/23/22 07:34 Sputum, Tracheal Aspirate Respiratory Culture - Final Staphylococcus aureus 09/22/22 07:20 Sputum, Induced/Lukens Gram Stain - Final 09/22/22 07:20 Sputum, Induced/Lukens Respiratory Culture - Final Mixed normal respiratory amparo. No Streptococcus pneumoniae, beta-hemolytic Streptococcus or Staphylococcus aureus isolated. 09/17/22 15:45 Urine, Clean Catch Urine Culture - Final Culture exhibits no growth. 09/16/22 07:05 Nasal Secretion SARS-CoV-2 & FLU Antigen (Rapid) - Final Physical Exam Const alert and no apparent distress Constitutional Narrative: up in chair. I typed large font, simple texts for pt to read and he nodded his head and gave a thumbs up. I was concerned he was not reading, so I then asked him to write his name and did the same. HEENT head/scalp atraumatic and moist oral mucous membranes Resp normal respiratory effort, no retractions, no use of accessory muscles and clear to auscultation bilaterally Cardio regular rate, regular rhythm, S1 normal heart sound and S2 normal heart sound GI normal to inspection, nondistended, normoactive bowel sounds, soft to palpation, non-tender and non-distended GI Narrative: PEG Assessment & Plan Assessment/Plan (1) Non-ST elevated myocardial infarction (non-STEMI): PLAN: Had cardiac cath this admission which showed diffusely diseased 2 vessels with LV systolic dysfunction with an LV gram EF of 40%. It was recommended tertiary care transfer referral for targeted PCI after he is stabilized. 09/30 attempted to transfer but they were not excepting transfers at this time. Previous hospitalist discussed with cardiology and it was agreed that he could continue medical management with outpatient follow-up with cardiac surgeon. 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, with long- term current use of insulin: PLAN: #DKA in the setting of 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 with long-term current use of insulin?resolved Currently only on sliding scale insulin and having worsening glucoses but they a re widely variable and not consistent which makes titration difficult Will start a basal insulin conservatively at 5 and trend, will likely need further titration but given extreme highs followed by glucose in the 160s concern for hypoglycemia 10/04: Glucoses have escalated, will increase long-acting and start Premeal in addition to sliding scale, will check BMP at this afternoon to assure no gap opens with his persistent elevation 10/05: Had escalating glucose despite increasing insulin, Increased on BMP and he was placed on insulin drip in the ICU. Gap is closed and he is doing well, calculated daily requirement and have added 25 units of long-acting insulin with 10 units every 4 prandial tube feeds and every 4 sliding scale insulin. Continue to monitor BMPs 10/06: Glucose may have significantly elevated due to underlying infection, glucose still widely variable and did have a low yesterday evening that a.m. glucose of 315, 1 to avoid hypoglycemia however, will further decrease insulin with meals 10/07: Continue to adjust insulin, with vomiting yesterday tube feeds were put on hold so we will not need every 4 hours sliding scale when this is held, will likely need to start back on lower feeds given his vomiting of tube feeds and concern for aspiration. Speech and dietary following 10/08: Discussed with nutrition, given his aspiration risk and difficulty being compliant with posturing will transition to bolus feeding. 10/09: Glucose under better control, presently on Humalog 3 units every 4, glargine 20 daily, sliding scale. Will adjust lispro and sliding scale to 4 ti mes daily to coincide with tube feeds since they were decreased today (4) Congenital deafness: PLAN: Complicates care and recovery. Patient can read lips as well as read and write but I did very elementary level. 10/12: pt appears not to be reading what I wrote. Pt motioning he is reading what I wrote. (5) Acute respiratory failure with hypoxia: PLAN: #Acute hypoxic respiratory failure resolved Was intubated in the ICU and has since been extubated Secondary to CHF (6) Cardiomyopathy: QUALIFIERS: Cardiomyopathy type: ischemic Qualified Code(s): I25.5 - Ischemic cardiomyopathy PLAN: EF 35%. Moderate to severe global hypokinesis of the LV. Mild to moderate mitral valve insufficiency. Pulmonary artery systolic pressure of 40 mmHg On Coreg Cannot tolerate ANIA/ARB due to kidney function (7) Pneumonia: QUALIFIERS: Laterality: unspecified laterality Lung location: unspecified part of lung Pneumonia type: due to unspecified organism Qualified Code(s): J18.9 - Pneumonia, unspecified organism PLAN: Stap: Cultures pending, on Vanco and Zosyn, O2 sat 99%, tachypnea improving. Is leukopenic today, will monitor may need to repeat to verify. 10/08: So far cultures are no growth to date and seems to be improving. May have been that this was aspiration pneumonia versus pneumonitis though Pro-José was elevated at 1.6. Continue antibiotics at this time and recheck Pro-José in the morning. Leukopenia slightly improved, does have elevated eosinophil count, will monitor differential 10/09: Leukopenia improved 10/10: Fever has improved, sputum growing staph hemolyticus which is sensitive to vancomycin. Will stop Zosyn. Has been on antibiotics since 10/06. (8) Regurgitation of food: PLAN: #Regurgitation of tube feeds Have tried continuous and bolus feeds with various levels of success They have been on hold today, he is on Reglan and with his kidney function he is on the max dose of Reglan, per report has been having stool output. Will need to continue to adjust regimen to improve tolerance TPN would not be a good long-term option. 10/11/: TF were held yesterday, doing well today, denying any abdominal pain or nausea, reportedly had bowel movement overnight. We will schedule Zofran, restart tube feeds 4 times a day with smaller amount, on Reglan, scheduled MiraLAX in the event that there is a component of poor transit. May need to consider GI input or surgery for jejunal feedings if absolutely unable to tolera te PEG tube to maintain nutrition check gastric emptying study. (9) Macrocytic anemia: PLAN: TSH has been normal Will check B12 and folate Iron has been low but his ferritin has been to 65 Hemoglobin 6.6 today. White count is low but his platelets seem to be around the same range so I do not feel that this is delusional today. We will transfuse 1 unit packed red blood cells. With the patient's CAD, would recommend a transfusion threshold of 8 PLAN: Plan Hypertension Continue to adjust antihypertensives, Coreg increased on 10/04 Nephrology recommended to hold hydralazine and Coreg on the mornings of dialysis, added instructions DVT ppx: heparin subcu Charges/Coding Visit Charges Inpatient E&M: 27989 Subs Hosp L2
[2022-10-12 09:35] LABS: Differential Comment SCANNED; Reactive Lymphocyte 1+
--- NOTE | 2022-10-12 10:05 | PCM.RX.CS ---
Consult Pharmacy has been consulted to manage selected antiobiotic: Vancomycin Type of Consult: Follow-up Labs: Sodium 136 mmol/L (136-145) 10/12/22 07:13 Potassium 3.5 mmol/L (3.5-5.1) 10/12/22 07:13 Chloride 102 mmol/L (98-107) 10/12/22 07:13 Carbon Dioxide 23.0 mmol/L (21.0-32.0) 10/12/22 07:13 Anion Gap 11 (5-15) 10/12/22 07:13 BUN 55 mg/dL (7-18) H 10/12/22 07:13 Creatinine 7.38 mg/dL (0.70-1.30) H 10/12/22 07:13 Est GFR (MDRD) Af Amer 10 mL/min (>60) L 10/12/22 07:13 Est GFR (MDRD) Non-Af 8 mL/min (>60) L 10/12/22 07:13 BUN/Creatinine Ratio 7.5 RATIO (10-20) L 10/12/22 07:13 Glucose 233 mg/dL (74-106) H 10/12/22 07:13 Random Vancomycin 12.7 ug/mL (0.0-15.0) 10/12/22 07:13 Microbiology: Microbiology 10/06/22 09:30 Blood Culture (Wb) - Anticubital Left Blood Culture - Final No growth in 5 days. 10/06/22 09:00 Blood Culture (Wb) - Anticubital Right Blood Culture - Final No growth in 5 days. 10/06/22 15:10 Sputum, Induced/Lukens Gram Stain - Final 10/06/22 15:10 Sputum, Induced/Lukens Respiratory Culture - Final Staphylococcus haemolyticus 10/06/22 09:00 Urine Catheter - Lopez Urine Culture - Final Culture exhibits no growth. 10/06/22 09:00 Mucosa - Nasopharyngeal Respiratory Panel (PCR) - Final 10/06/22 09:00 Nasal Secretion SARS-CoV-2 & FLU Antigen (Rapid) - Final 09/23/22 07:34 Sputum, Tracheal Aspirate Gram Stain - Final 09/23/22 07:34 Sputum, Tracheal Aspirate Respiratory Culture - Final Staphylococcus aureus 09/22/22 07:20 Sputum, Induced/Lukens Gram Stain - Final 09/22/22 07:20 Sputum, Induced/Lukens Respiratory Culture - Final Mixed normal respiratory amparo. No Streptococcus pneumoniae, beta-hemolytic Streptococcus or Staphylococcus aureus isolated. 09/17/22 15:45 Urine, Clean Catch Urine Culture - Final Culture exhibits no growth. 09/16/22 07:05 Nasal Secretion SARS-CoV-2 & FLU Antigen (Rapid) - Final Goal Trough: 15-20 mcg/mL Pharmacy Plan for Drug Dosing: VANCOMYCIN LEVEL RECEIVED Current Vancomycin Dose: pt on MWF HD dosing Number of Doses Received: Vancomycin Level: random level resulted at 12.7 Hours Since Last Dose: Renal Function: SrCr 7.38 (pt dosed per dialysis protocol) Renal Function Trend: Lab/Micro: Vancomycin Plan/Comments: pt is due to receive dialysis today, 10/12/22. recommend a x1 dose of 750mg post dialysis, based on a pre dialysis level of 12.7. random level prior to pts next scheduled dialysis session on 10/14/22 Pending Level: 10/14/22 at 0600 (random level) Pharmacy Service will continue to monitor and adjust dosing as required. Follow-Up Labs: Trough Vancomycin - 10/14/22 at 0600 (random level)
--- NOTE | 2022-10-12 11:58 | DIALYSIS ---
Hemodialysis complete with 2 liters fluid removed. Left chest dialysis CVC dressing is clean and dry, both CVC lumens patent, however lines ran reversed to obtain ordered BFR. Pt tolerated treatment without difficulty.
[2022-10-12 12:10] LABS: Bedside Glucose 137 mg/dL (74-106)
[2022-10-12] MEDS: Heparin 10,000 UNITS/10 ML Vial 3800 UNITS IV (12:25)
[2022-10-12] MEDS: Aspirin E.C. 81 MG Tablet PO (12:27)
[2022-10-12] MEDS: Clopidogrel Bisulfate 75 MG Tablet PO (12:27)
[2022-10-12] MEDS: amLODIPine 5 MG Tablet PO (12:27)
[2022-10-12] MEDS: Menthol/Lanolin/Calamine/Znox 113 GM Tube 1 APPLIC TOPICAL (12:27)
[2022-10-12] MEDS: Polyethylene Glycol 3350 17 GM PACKET PO (12:28)
[2022-10-12] MEDS: Isosorbide DN 10 MG Tablet 5 MG PO (12:29)
[2022-10-12] MEDS: Carvedilol 25 MG Tablet GT (12:29)
[2022-10-12] MEDS: Insulin Glargine-YFGN 100 UNIT/ML Pen 20 UNIT SC (12:49)
[2022-10-12] MEDS: NEPRO TUBE FEED 1,000 ML LIQUID 125 ML GT ×2 (12:50→16:02)
[2022-10-12] MEDS: Dorzolamide HCL/Timolol 10 ml Bottle 1 DRP OPHTHALMIC (12:54)
[2022-10-12 13:31] LABS: Bedside Glucose 217 mg/dL (74-106)
[2022-10-12] MEDS: hydrALAZINE 50 MG Tablet GT (16:02)
--- NOTE | 2022-10-12 17:52 | PN.RENAL_ITS ---
Subjective Subjective Some emesis today Had hemodialysis earlier today Just finishing blood transfusion Objective Data Objective Data Vital Signs: Vital Signs Temp Pulse Resp BP Pulse Ox O2 Del Method O2 Flow Rate 98.3 F 84 18 137/63 H 96 Nasal Cannula 2 10/12/22 16:00 10/12/22 16:02 10/12/22 16:00 10/12/22 16:02 10/12/22 16:00 10/12/22 16:00 10/12/22 16:00 FiO2 40 10/11/22 19:55 Oxygen Flow Rate (L/min) 2 Oxygen Delivery Method Nasal Cannula Weight: 72.6 kg Body Mass Index (BMI) 25.8 Intake & Output: Intake and Output for Last 24 Hours 10/10/22 10/11/22 10/12/22 23:59 23:59 23:59 Intake Total 670 / 670 1285 / 1285 1230 / 1230 Output Total 700 / 700 850 / 900 2200 / 2200 Balance -30 / -30 435 / 385 -970 / -970 Medical Nutrition Assessment Dietitian: Malnutrition Criteria Met Start: 10/12/22 13:19 Freq: Status: Active Protocol: Document 10/12/22 13:19 RMA (Rec: 10/12/22 13:19 RMA [id number]) Nutrition Malnutrition Evidence of Malnutrition Exists Yes Malnutrition (severe): Acute Illness/Injury Evidenced By Suboptimal Energy Intake ( Severe),Weight Loss (Severe) Intake Problem Inadequate Oral Intake Etiology related to dysphagia Signs/Symptoms as evidenced by NPO status Status Active Problem Clinical Problem Acute Disease or Injury Related Malnutrition Etiology Severe protein-calorie malnutrition in the context of acute illness related to inadequate oral intake/ dysphagia Signs/Symptoms as evidenced by 11% wt loss in less than 1 month, NPO, need for TF and TF meeting less than 50% estimated nutrition needs Status Active Problem Altered Nutrient-Related Laboratory Values Etiology related to diabetes Signs/Symptoms as evidenced by glucose 332 Status Resolved Problem Recommendation Dietitian Recommendations/Changes NPO per VICE PRESIDENT OF ENGINEERING. PEG TF should meet~100% estimated nutrition needs as tolerated. Optimal TF via PEG should be increased as tolerated to 210mL bolus Nepro 5x/day w/ 100mL H2O flush before and after each bolus to provide 1859 calories, 85 g protein, and 1763mL total fluid/day. Lab / Micro Data Result Diagrams: 10/12/22 07:13 10/12/22 07:13 Labs: Laboratory Results - last 24 hr 10/11/22 18:07: POC Glucose 165 H 10/11/22 23:37: POC Glucose 58 L 10/11/22 23:58: POC Glucose 210 H 10/12/22 03:40: POC Glucose 204 H 10/12/22 05:39: POC Glucose 225 H 10/12/22 07:13: Random Vancomycin 12.7 10/12/22 07:13: WBC 2.1 L, RBC 2.25 L, Hgb 6.6 L, Hct 21.9 L, MCV 97.3 H, MCH 29.3, MCHC 30.1 L, RDW Std Deviation 43.1, RDW Coeff of Jenifer 12.3, Plt Count 359, MPV 11.2, Immature Gran % (Auto) 0.000, Neut % (Auto) 31.2 L, Lymph % (Auto) 31.2, [place] % (Auto) 31.7 H, Eos % (Auto) 4.4, Baso % (Auto) 1.5 H, Absolute Neuts (auto) 0.6 L, Absolute Lymphs (auto) 0.64 L, Nucleated RBC % 0, Differential Comment SCANNED, Reactive Lymphocytes 1+ 10/12/22 07:13: Sodium 136, Potassium 3.5, Chloride 102, Carbon Dioxide 23.0, Anion Gap 11, BUN 55 H, Creatinine 7.38 H, Estim Creat Clear Calc 11.20, Est GFR (MDRD) Af Amer 10 L, Est GFR (MDRD) Non-Af 8 L, BUN/Creatinine Ratio 7.5 L, Glucose 233 H, Calcium 8.3 L, Total Bilirubin 0.30, AST 25, ALT 13 L, Alkaline Phosphatase 85, Total Protein 6.1 L, Albumin 1.5 L, Globulin 4.6 H, Albumin/Globulin Ratio 0.3 L 10/12/22 09:35: Blood Type O POSITIVE, Antibody Screen NEGATIVE, Crossmatch See Detail 10/12/22 09:35: Folate 6.40 10/12/22 10:52: POC Glucose 137 H 10/12/22 12:48: POC Glucose 217 H Micro: Microbiology 10/06/22 09:30 Blood Culture (Wb) - Anticubital Left Blood Culture - Final No growth in 5 days. 10/06/22 09:00 Blood Culture (Wb) - Anticubital Right Blood Culture - Final No growth in 5 days. 10/06/22 15:10 Sputum, Induced/Lukens Gram Stain - Final 10/06/22 15:10 Sputum, Induced/Lukens Respiratory Culture - Final Staphylococcus haemolyticus 10/06/22 09:00 Urine Catheter - Lopez Urine Culture - Final Culture exhibits no growth. 10/06/22 09:00 Mucosa - Nasopharyngeal Respiratory Panel (PCR) - Final 10/06/22 09:00 Nasal Secretion SARS-CoV-2 & FLU Antigen (Rapid) - Final 09/23/22 07:34 Sputum, Tracheal Aspirate Gram Stain - Final 09/23/22 07:34 Sputum, Tracheal Aspirate Respiratory Culture - Final Staphylococcus aureus 09/22/22 07:20 Sputum, Induced/Lukens Gram Stain - Final 09/22/22 07:20 Sputum, Induced/Lukens Respiratory Culture - Final Mixed normal respiratory amparo. No Streptococcus pneumoniae, beta-hemolytic Streptococcus or Staphylococcus aureus isolated. 09/17/22 15:45 Urine, Clean Catch Urine Culture - Final Culture exhibits no growth. 09/16/22 07:05 Nasal Secretion SARS-CoV-2 & FLU Antigen (Rapid) - Final Physical Exam Narrative Patient is resting comfortably S1-S2 regular Normal respiration positive for PEG Light urine Const alert, no apparent distress, average body habitus and healthy appearing Constitutional Narrative: Patient is deaf General Appearance: cooperative, comfortable and well developed Orientation / Consciousness: awake Exam Limitations: no limitations Nutritional Appearance: underweight HEENT normocephalic Eyes PERRL General Eye: normal appearance of both eyes Lymph Lymphatic: no lymphadenopathy noted Chest inspection of chest normal Resp normal respiratory effort, normal air movement, no retractions, no use of a ccessory muscles and clear to auscultation bilaterally Cardio regular rate, regular rhythm, S1 normal heart sound, S2 normal heart sound and no murmurs GI normal to inspection, nondistended, normoactive bowel sounds, non-tender and no masses Auscultation: normoactive bowel sounds Palpation: soft Bladder / Kidney Exam: catheter in place and bladder normal to palpation Extremity normal to inspection and no pedal edema Neuro Sensorium / Orientation: awake and alert Motor Exam: muscle tone normal throughout Psych cooperative Assessment & Plan Assessment/Plan (1) TREVOR (acute kidney injury): (2) Benign essential hypertension: (3) Type 1 diabetes: (4) CKD (chronic kidney disease): PLAN: Plan - Baseline renal function is unclear serum creatinine was 1.60 mg/dL in 2020.? The last available serum creatinine in [facility] was from 04/22/2014 at 1.3 mg/dL. Suspect the patient has underlying diabetic kidney disease.? He is proteinuric in nephrotic range and has had longstanding, poorly controlled diabetes with retinopathy. Serologies including ANCA, C3, and C4 are negative.? Immunofixation is negative for monoclonal protein. It is possible that we are seeing progression of diabetic kidney disease towards ESRD. Unfortunately, biopsy could not be done because of patient's respiratory status and anxiety. Patient had cardiac catheterization 09/28: Significant diffuse two-vessel disease.? Echo: EF 35% with stage III diastolic dysfunction and pulmonary hypertension - patient has PEG. Patient had modified barium swallow test yesterday with recommendations of strict n.p.o., continue utilizing PEG tube. - Blood pressures acceptable, recommend to hold carvedilol and hydralazine mornings of dialysis. - No acute indication for INCOME TAX ADJUSTER today, patient to dialyze tomorrow over 3.5 hours and attempt fluid removal as pt/bp tolerates. He tolerated 1L UF yesterday with HD. EDW not established yet but seems to be nearing a dry weight. Giving lasix on non-hd days. Outpatient dialysis arrangements Wednesday at [facility]. - WBC 3.6. Blood cx NGTD from 10/06. 1/2 -Status post hemodialysis today, ultrafiltration of 2 L -Status post blood transfusion as well -From renal standpoint continue with dialysis Wednesday Thank you please call [phone] with any concerns
[2022-10-12 18:46] LABS: Bedside Glucose 302 mg/dL (74-106)
--- NOTE | 2022-10-12 21:07 | CPS ---
Pt sleeping at 7:30 .. Will re-check at a later time. For Vest therapy.
[2022-10-12 22:26] LABS: Bedside Glucose 274 mg/dL (74-106)
--- NOTE | 2022-10-12 22:58 | CPS ---
Vest not done due to Patient having fever, RN requested she give meds and tube feed at this time.
[2022-10-13] VITALS (14 sets, daily range): BP systolic 127–178; BP diastolic 62–78; PULSE 77–106; RESP 12–30; TEMP 36.3–38.7; O2SAT 93–98
[2022-10-13] MEDS: Insulin Lispro 100 UNIT/ML INSULN.PEN SC ×8 (00:56→18:19)
[2022-10-13] MEDS: Ondansetron 4 MG/2 ML Vial IV ×5 (00:57→23:21)
[2022-10-13] MEDS: Metoclopramide 10 MG/2 ML Vial 5 MG IV ×3 (00:58→11:27)
--- NOTE | 2022-10-13 01:05 | CPS ---
Pt is 95 on 3L nasal O2 , resting comfortably. Pt had tube feeding earlier. Unaware of residual amount left in stomach but with pt history of nausea and vomiting, RT and RN agreed to let pt be comfortable tonight. No vest or bipap applied at this time.
[2022-10-13 01:26] LABS: Bedside Glucose 349 mg/dL (74-106)
[2022-10-13 06:05] LABS: Absolute Lymphocyte Count 0.69 X10^3/uL (0.83-4.51); Absolute Neutrophil Count 0.6 X10^3/uL (2.0-7.7); Basophil# 0.04 X10^3/uL; Basophil% 1.7 % (0-1); Eosinophil# 0.37 X10^3/uL; Eosinophils% 15.6 % (0-5); Hematocrit 25.4 % (40-54); Hemoglobin 8.2 g/dL (13.0-16.5); Lymphocyte # 0.69 X10^3/ul (0.83-4.51); Lymphocyte % 29.1 % (19-41); Mean Corp Hgb Conc 32.3 g/dL (32-36); Mean Corpuscular Hgb 30.8 pg (27.0-32.0); Mean Corpuscular Volume 95.5 fL (80-94); Monocyte# 0.64 X10^3/uL; NRBC Flagged by Analyzer 0 % (0-5); Neutrophil # 0.61 X10^3/uL (2.7-7.7); Neutrophil % 25.8 % (47-70); POSITIVE DIFFERENTIAL YES; Platelet Count 356 K/mm3 (150-450); RBC Distribution Width CV 12.8 % (11.6-14.6); RBC Distribution Width SD 44.6 fl (35.1-43.9); Red Blood Count 2.66 M/mm3 (4.6-6.2); White Blood Count 2.4 K/mm3 (4.4-11.0)
[2022-10-13 06:35] LABS: Differential Indicated SCAN CRITERIA MET
[2022-10-13 06:46] LABS: Anion Gap 7 (5-15); BUN 30 mg/dL (7-18); BUN/Creat Ratio 6.6 RATIO (10-20); Calcium,Total 8.6 mg/dL (8.5-10.1); Chloride 100 mmol/L (98-107); Creatinine, Serum 4.56 mg/dL (0.70-1.30); EST Glomerular Filtration Rate 14 mL/min (>60); Est Glom Filt Rate - Afr Amer 17 mL/min (>60); Estimated Creatinine Clearance 18.13 ml/min; Glucose 209 mg/dL (74-106); Potassium 3.6 mmol/L (3.5-5.1); Sodium Level 134 mmol/L (136-145)
[2022-10-13] MEDS: hydrALAZINE 50 MG Tablet GT ×3 (06:54→22:45)
[2022-10-13 07:10] LABS: Differential Comment SCANNED
[2022-10-13 07:26] LABS: Bedside Glucose 256 mg/dL (74-106)
[2022-10-13] MEDS: Acetaminophen 650 MG/20 ML UDC GT ×2 (07:30→23:06)
--- NOTE | 2022-10-13 08:24 | PCM.PN.HOSP ---
Subjective Subjective Still with vomiting. Objective Data Objective Data Vital Signs: Vital Signs Temp Pulse Resp BP Pulse Ox O2 Del Method O2 Flow Rate 38.0 C H 88 16 142/66 H 94 Nasal Cannula 3 10/13/22 06:53 10/13/22 07:15 10/13/22 06:53 10/13/22 06:54 10/13/22 07:05 10/13/22 07:05 10/13/22 07:05 FiO2 40 10/11/22 19:55 Oxygen Flow Rate (L/min) 3 Oxygen Delivery Method Nasal Cannula Weight: 72.6 kg Body Mass Index (BMI) 25.8 Intake & Output: Intake and Output for Last 24 Hours 10/11/22 10/12/22 10/13/22 23:59 23:59 23:59 Intake Total 1285 / 1285 1820 / 1820 Output Total 850 / 900 2200 / 2200 160 / 160 Balance 435 / 385 -380 / -380 -160 / -160 Medical Nutrition Assessment Dietitian: Malnutrition Criteria Met Start: 10/12/22 13:19 Freq: Status: Active Protocol: Document 10/12/22 13:19 RMA (Rec: 10/12/22 13:19 RMA [id number]) Nutrition Malnutrition Evidence of Malnutrition Exists Yes Malnutrition (severe): Acute Illness/Injury Evidenced By Suboptimal Energy Intake ( Severe),Weight Loss (Severe) Intake Problem Inadequate Oral Intake Etiology related to dysphagia Signs/Symptoms as evidenced by NPO status Status Active Problem Clinical Problem Acute Disease or Injury Related Malnutrition Etiology Severe protein-calorie malnutrition in the context of acute illness related to inadequate oral intake/ dysphagia Signs/Symptoms as evidenced by 11% wt loss in less than 1 month, NPO, need for TF and TF meeting less than 50% estimated nutrition needs Status Active Problem Altered Nutrient-Related Laboratory Values Etiology related to diabetes Signs/Symptoms as evidenced by glucose 332 Status Resolved Problem Recommendation Dietitian Recommendations/Changes NPO per TICKET WORKER. PEG TF should meet~100% estimated nutrition needs as tolerated. Optimal TF via PEG should be increased as tolerated to 210mL bolus Nepro 5x/day w/ 100mL H2O flush before and after each bolus to provide 1859 calories, 85 g protein, and 1763mL total fluid/day. Lab / Micro Data Result Diagrams: 10/13/22 05:02 10/13/22 05:02 Labs: Laboratory Results - last 24 hr 10/12/22 07:13: Differential Comment SCANNED, Reactive Lymphocytes 1+ 10/12/22 09:35: Blood Type O POSITIVE, Antibody Screen NEGATIVE, Crossmatch See Detail 10/12/22 09:35: Folate 6.40 10/12/22 10:52: POC Glucose 137 H 10/12/22 12:48: POC Glucose 217 H 10/12/22 18:24: POC Glucose 302 H 10/12/22 22:03: POC Glucose 274 H 10/13/22 00:55: POC Glucose 349 H 10/13/22 05:02: WBC 2.4 L, RBC 2.66 L, Hgb 8.2 L, Hct 25.4 L, MCV 95.5 H, MCH 30.8, MCHC 32.3 D, RDW Std Deviation 44.6 H, RDW Coeff of Jenifer 12.8, Plt Count 356, MPV 11.0, Immature Gran % (Auto) 0.800, Neut % (Auto) 25.8 L, Lymph % (Auto) 29.1, [place] % (Auto) 27.0 H, Eos % (Auto) 15.6 H, Baso % (Auto) 1.7 H, Absolute Neuts (auto) 0.6 L, Absolute Lymphs (auto) 0.69 L, Nucleated RBC % 0, Differential Comment SCANNED 10/13/22 05:02: Sodium 134 L, Potassium 3.6, Chloride 100, Carbon Dioxide 27.0, Anion Gap 7, BUN 30 H, Creatinine 4.56 H, Estim Creat Clear Calc 18.13, Est GFR (MDRD) Af Amer 17 L, Est GFR (MDRD) Non-Af 14 L, BUN/Creatinine Ratio 6.6 L, Glucose 209 H, Calcium 8.6 10/13/22 06:51: POC Glucose 256 H Micro: Microbiology 10/06/22 09:30 Blood Culture (Wb) - Anticubital Left Blood Culture - Final No growth in 5 days. 10/06/22 09:00 Blood Culture (Wb) - Anticubital Right Blood Culture - Final No growth in 5 days. 10/06/22 15:10 Sputum, Induced/Lukens Gram Stain - Final 10/06/22 15:10 Sputum, Induced/Lukens Respiratory Culture - Final Staphylococcus haemolyticus 10/06/22 09:00 Urine Catheter - Lopez Urine Culture - Final Culture exhibits no growth. 10/06/22 09:00 Mucosa - Nasopharyngeal Respiratory Panel (PCR) - Final 10/06/22 09:00 Nasal Secretion SARS-CoV-2 & FLU Antigen (Rapid) - Final 09/23/22 07:34 Sputum, Tracheal Aspirate Gram Stain - Final 09/23/22 07:34 Sputum, Tracheal Aspirate Respiratory Culture - Final Staphylococcus aureus 09/22/22 07:20 Sputum, Induced/Lukens Gram Stain - Final 09/22/22 07:20 Sputum, Induced/Lukens Respiratory Culture - Final Mixed normal respiratory amparo. No Streptococcus pneumoniae, beta-hemolytic Streptococcus or Staphylococcus aureus isolated. 09/17/22 15:45 Urine, Clean Catch Urine Culture - Final Culture exhibits no growth. 09/16/22 07:05 Nasal Secretion SARS-CoV-2 & FLU Antigen (Rapid) - Final Physical Exam Const alert Constitutional Narrative: Typed text into the phone, including already having abdominal pain, and he would nod, then I typed you cannot read and he nodded again. I then typed and a bunch of gibberish letters together and he did the same thing. He does clearly. The patient cannot read. I did have the patient speak with sign language interpreter Mongolian sign language and the patient was told that he could not read text by the sign language interpreter and but the patient was perseverating on wraps. Patient did not have any wraps on. Resp normal respiratory effort, no retractions, no use of accessory muscles and clear to auscultation bilaterally Cardio regular rate, regular rhythm, S1 normal heart sound and S2 normal heart sound GI normal to inspection, nondistended, normoactive bowel sounds, soft to palpation, non-tender and non-distended GI Narrative: distended. PEG in place. Extremity normal to inspection Neuro oriented x3 Assessment & Plan Assessment/Plan (1) Non-ST elevated myocardial infarction (non-STEMI): PLAN: Had cardiac cath this admission which showed diffusely diseased 2 vessels with LV systolic dysfunction with an LV gram EF of 40%. It was recommended tertiary care transfer referral for targeted PCI after he is stabilized. 09/30 attempted to transfer but they were not excepting transfers at this time. Previous hospitalist discussed with cardiology and it was agreed that he could continue medical management with outpatient follow-up with cardiac surgeon. 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, with long-term current use of insulin: PLAN: #DKA in the setting of 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 with long-term current use of insulin?resolved Currently only on sliding scale insulin and having worsening glucoses but they are widely variable and not consistent which makes titration difficult Will start a basal insulin conservatively at 5 and trend, will likely need further titration but given extreme highs followed by glucose in the 160s concern for hypoglycemia 10/04: Glucoses have escalated, will increase long-acting and start Premeal in addition to sliding scale, will check BMP at this afternoon to assure no gap opens with his persistent elevation 10/05: Had escalating glucose despite increasing insulin, Increased on BMP and he was placed on insulin drip in the ICU. Gap is closed and he is doing well, calculated daily requirement and have added 25 units of long-acting insulin with 10 units every 4 prandial tube feeds and every 4 sliding scale insulin. Continue to monitor BMPs 10/06: Glucose may have significantly elevated due to underlying infection, glucose still widely variable and did have a low yesterday evening that a.m. glucose of 315, 1 to avoid hypoglycemia however, will further decrease insulin with meals 10/07: Continue to adjust insulin, with vomiting yesterday tube feeds were put on hold so we will not need every 4 hours sliding scale when this is held, will likely need to start back on lower feeds given his vomiting of tube feeds and concern for aspiration. Speech and dietary following 10/08: Discussed with nutrition, given his aspiration risk and difficulty being compliant with posturing will transition to bolus feeding. 10/09: Glucose under better control, presently on Humalog 3 units every 4, glargine 20 daily, sliding scale. Will adjust lispro and sliding scale to 4 times daily to coincide with tube feeds since they were decreased today (4) Congenital deafness: PLAN: Complicates care and recovery. Patient can read lips as well as read and write but I did very elementary level. 10/12: pt appears not to be reading what I wrote. Pt motioning he is reading what I wrote. (5) Acute respiratory failure with hypoxia: PLAN: #Acute hypoxic respiratory failure resolved Was intubated in the ICU and has since been extubated Secondary to CHF (6) Cardiomyopathy: QUALIFIERS: Cardiomyopathy type: ischemic Qualified Code(s): I25.5 - Ischemic cardiomyopathy PLAN: EF 35%. Moderate to severe global hypokinesis of the LV. Mild to moderate mitral valve insufficiency. Pulmonary artery systolic pressure of 40 mmHg On Coreg Cannot tolerate ANIA/ARB due to kidney function (7) Pneumonia: QUALIFIERS: Laterality: unspecified laterality Lung location: unspecified part of lung Pneumonia type: due to unspecified organism Qualified Code(s): J18.9 - Pneumonia, unspecified organism PLAN: Staph112/08: Cultures pending, on Vanco and Zosyn, O2 sat 99%, tachypnea improving. Is leukopenic today, will monitor may need to repeat to verify. 10/08: So far cultures are no growth to date and seems to be improving. May have been that this was aspiration pneumonia versus pneumonitis though Pro-José was elevated at 1.6. Continue antibiotics at this time and recheck Pro-José in the morning. Leukopenia slightly improved, does have elevated eosinophil count, will monitor differential 10/09: Leukopenia improved 10/10: Fever has improved, sputum growing staph hemolyticus which is sensitive to vancomycin. Will stop Zosyn. Has been on antibiotics since 10/06. 10/13: DC abx as he has completed 7 days of abx. (8) Regurgitation of food: PLAN: #Regurgitation of tube feeds Have tried continuous and bolus feeds with various levels of success They have been on hold today, he is on Reglan and with his kidney function he is on the max dose of Reglan, per report has been having stool output. Will need to continue to adjust regimen to improve tolerance TPN would not be a good long-term option. 10/11/: TF were held yesterday, doing well today, denying any abdominal pain or nausea, reportedly had bowel movement overnight. We will schedule Zofran, restart tube feeds 4 times a day with smaller amount, on Reglan, scheduled MiraLAX in the event that there is a component of poor transit. May need to consider GI input or surgery for jejunal feedings if absolutely unable to tolerate PEG tube to maintain nutrition Gastric emptying study cannot be performed as pt has a PEG tube. Recheck abd xray showed no ileus or bowel obstruction. Discussed with Dr. Chung, who recommends CT with contrast to see if there is any distal obstruction despite the normal x-ray. (9) Macrocytic anemia: PLAN: TSH has been normal Will check B12 and folate Iron has been low but his ferritin has been to 65 Hemoglobin 6.6 today. White count is low but his platelets seem to be around the same range so I do not feel that this is delusional today. We will transfuse 1 unit packed red blood cells. With the patient's CAD, would recommend a transfusion threshold of 8 PLAN: Plan Hypertension Continue to adjust antihypertensives, Coreg increased on 10/04 Nephrology recommended to hold hydralazine and Coreg on the mornings of dialysis, added instructions DVT ppx: heparin subcu Greater than 55 minutes of which greater than for percent of time was discussing with the patient through an sign language interpreter with sign language about his case, his lack of reading comprehension and evaluating his nausea and vomiting. Advance care planning: Spent an additional 30 minutes discussing with the patient's son-in-law who interpreted to the patient's who is also deaf. Expressed to them both that patient's limiting factor is his ongoing nausea and vomiting with tube feeds despite having the PEG tube. That eventually the plan would be for him to go to a longterm facility. I told him there and I cannot guarantee that they would have the sign language interpreter readily available and he may spend much of his existence at the nursing facility not be able to communicate with anyone as patient cannot read, cannot read lips and speaks only in sign and as was evidenced today patient does not even signed very well and gets confused with speaking with someone who does use Mongolian sign language. I did mention to them about hospice as a possibility down the road given that his quality of life will likely be very poor particularly since he cannot communicate with anyone other than people that sign. This son-in-law stated that they are not ready for that at this time. Charges/Coding Visit Charges Inpatient E&M: 83017 Subs Hosp L3 Procedures Hospitalists Procedures: 14699 Critial Care Addl 30 Min
[2022-10-13 08:54] LABS: Vitamin B12 680 pg/mL (211-911)
--- NOTE | 2022-10-13 09:57 | CASEMGMT ---
RN JAX received message from Tiffany at [facility]. RN CM returned call to [place]. Per Tiffany, appeal was denied. SW notified of [facility] denial. CM will continue to assist with discharge planning as appropriate.
--- NOTE | 2022-10-13 10:00 | RAD_ITS ---
STUDY: X-RAY - ABDOMEN/PELVIS REASON FOR EXAM: Male, 57 years old. Vomiting. TECHNIQUE: Single AP view of the abdomen / pelvis on 3 images. COMPARISON: October 10, 2022. FINDINGS: Patchy opacities in both lower lobes, right greater than left. Catheter overlying the right side of the abdomen and terminating in the right upper quadrant adjacent to the T12 vertebral body. There is no demonstrated free abdominal air. The visualized liver, spleen and kidneys are grossly normal in size and morphology. Marked vascular calcification. Clips projected over the right upper pelvis. Normal visualized osseous structures. RAD/Abdomen Single View (Portable) IMPRESSION: Catheter overlying the right side of the abdomen terminating in the upper medial abdomen as described. No complicating features. Electronically Signed: Jack Nolan, at 10:20 EST ,
[2022-10-13] MEDS: 0.9% Saline Lock 10 ML Syringe IV ×5 (10:50→23:19)
[2022-10-13] MEDS: Aspirin E.C. 81 MG Tablet PO (10:52)
[2022-10-13] MEDS: Carvedilol 25 MG Tablet GT ×2 (10:53→22:45)
[2022-10-13] MEDS: amLODIPine 5 MG Tablet PO (10:53)
[2022-10-13] MEDS: Clopidogrel Bisulfate 75 MG Tablet PO (10:53)
[2022-10-13] MEDS: Furosemide 40 MG Tablet PO (10:53)
[2022-10-13] MEDS: Isosorbide DN 10 MG Tablet 5 MG PO ×2 (10:53→22:46)
[2022-10-13] MEDS: NEPRO TUBE FEED 1,000 ML LIQUID 125 ML GT (10:54)
[2022-10-13] MEDS: Menthol/Lanolin/Calamine/Znox 113 GM Tube 1 APPLIC TOPICAL ×2 (11:07→23:29)
[2022-10-13] MEDS: Insulin Glargine-YFGN 100 UNIT/ML Pen 20 UNIT SC (11:07)
[2022-10-13] MEDS: Dorzolamide HCL/Timolol 10 ml Bottle 1 DRP OPHTHALMIC ×2 (11:07→22:47)
--- NOTE | 2022-10-13 11:43 | NURSING ---
patient coughed and immediately tube feed out his nose and mouth hob was elevated cleaned up patient notified
--- NOTE | 2022-10-13 12:00 | PN.RENAL_ITS ---
Subjective Subjective No new events Objective Data Objective Data Vital Signs: Vital Signs Temp Pulse Resp BP Pulse Ox O2 Del Method O2 Flow Rate 97.4 F L 77 16 135/62 H 98 Nasal Cannula 2 10/13/22 11:00 10/13/22 11:00 10/13/22 11:00 10/13/22 11:00 10/13/22 11:00 10/13/22 11:00 10/13/22 11:00 FiO2 40 10/11/22 19:55 Oxygen Flow Rate (L/min) 2 Oxygen Delivery Method Nasal Cannula Weight: 72.6 kg Body Mass Index (BMI) 25.8 Intake & Output: Intake and Output for Last 24 Hours 10/11/22 10/12/22 10/13/22 23:59 23:59 23:59 Intake Total 1285 / 1285 1820 / 1820 110 / 110 Output Total 850 / 900 2200 / 2200 160 / 160 Balance 435 / 385 -380 / -380 -50 / -50 Medical Nutrition Assessment Dietitian: Malnutrition Criteria Met Start: 10/12/22 13:19 Freq: Status: Active Protocol: Document 10/12/22 13:19 RMA (Rec: 10/12/22 13:19 RMA [id number]) Nutrition Malnutrition Evidence of Malnutrition Exists Yes Malnutrition (severe): Acute Illness/Injury Evidenced By Suboptimal Energy Intake ( Severe),Weight Loss (Severe) Intake Problem Inadequate Oral Intake Etiology related to dysphagia Signs/Symptoms as evidenced by NPO status Status Active Problem Clinical Problem Acute Disease or Injury Related Malnutrition Etiology Severe protein-calorie malnutrition in the context of acute illness related to inadequate oral intake/ dysphagia Signs/Symptoms as evidenced by 11% wt loss in less than 1 month, NPO, need for TF and TF meeting less than 50% estimated nutrition needs Status Active Problem Altered Nutrient-Related Laboratory Values Etiology related to diabetes Signs/Symptoms as evidenced by glucose 332 Status Resolved Problem Recommendation Dietitian Recommendations/Changes NPO per RAILROAD CONDUCTOR. PEG TF should meet~100% estimated nutrition needs as tolerated. Optimal TF via PEG should be increased as tolerated to 210mL bolus Nepro 5x/day w/ 100mL H2O flush before and after each bolus to provide 1859 calories, 85 g protein, and 1763mL total fluid/day. Lab / Micro Data Result Diagrams: 10/13/22 05:02 10/13/22 05:02 Labs: Laboratory Results - last 24 hr 10/12/22 09:35: Blood Type O POSITIVE, Antibody Screen NEGATIVE, Crossmatch See Detail 10/12/22 09:35: Vitamin B12 680 10/12/22 10:52: POC Glucose 137 H 10/12/22 12:48: POC Glucose 217 H 10/12/22 18:24: POC Glucose 302 H 10/12/22 22:03: POC Glucose 274 H 10/13/22 00:55: POC Glucose 349 H 10/13/22 05:02: WBC 2.4 L, RBC 2.66 L, Hgb 8.2 L, Hct 25.4 L, MCV 95.5 H, MCH 30.8, MCHC 32.3 D, RDW Std Deviation 44.6 H, RDW Coeff of Jenifer 12.8, Plt Count 356, MPV 11.0, Immature Gran % (Auto) 0.800, Neut % (Auto) 25.8 L, Lymph % (Auto) 29.1, [place] % (Auto) 27.0 H, Eos % (Auto) 15.6 H, Baso % (Auto) 1.7 H, Absolute Neuts (auto) 0.6 L, Absolute Lymphs (auto) 0.69 L, Nucleated RBC % 0, Differential Comment SCANNED 10/13/22 05:02: Sodium 134 L, Potassium 3.6, Chloride 100, Carbon Dioxide 27.0, Anion Gap 7, BUN 30 H, Creatinine 4.56 H, Estim Creat Clear Calc 18.13, Est GFR (MDRD) Af Amer 17 L, Est GFR (MDRD) Non-Af 14 L, BUN/Creatinine Ratio 6.6 L, Glucose 209 H, Calcium 8.6 10/13/22 06:51: POC Glucose 256 H Micro: Microbiology 10/06/22 09:30 Blood Culture (Wb) - Anticubital Left Blood Culture - Final No growth in 5 days. 10/06/22 09:00 Blood Culture (Wb) - Anticubital Right Blood Culture - Final No growth in 5 days. 10/06/22 15:10 Sputum, Induced/Lukens Gram Stain - Final 10/06/22 15:10 Sputum, Induced/Lukens Respiratory Culture - Final Staphylococcus haemolyticus 10/06/22 09:00 Urine Catheter - Lopez Urine Culture - Final Culture exhibits no growth. 10/06/22 09:00 Mucosa - Nasopharyngeal Respiratory Panel (PCR) - Final 10/06/22 09:00 Nasal Secretion SARS-CoV-2 & FLU Antigen (Rapid) - Final 09/23/22 07:34 Sputum, Tracheal Aspirate Gram Stain - Final 09/23/22 07:34 Sputum, Tracheal Aspirate Respiratory Culture - Final Staphylococcus aureus 09/22/22 07:20 Sputum, Induced/Lukens Gram Stain - Final 09/22/22 07:20 Sputum, Induced/Lukens Respiratory Culture - Final Mixed normal respiratory amparo. No Streptococcus pneumoniae, beta-hemolytic Streptococcus or Staphylococcus aureus isolated. 09/17/22 15:45 Urine, Clean Catch Urine Culture - Final Culture exhibits no growth. 09/16/22 07:05 Nasal Secretion SARS-CoV-2 & FLU Antigen (Rapid) - Final Radiography Diagnostic Testing: Radiology Impression KUB X-Ray 10/13/22 10:00 IMPRESSION: Catheter overlying the right side of the abdomen terminating in the upper medial abdomen as described. No complicating features. Electronically Signed: Jack Nolan, at 10:20 EST , Physical Exam Narrative Patient is resting comfortably S1-S2 regular Normal respiration positive for PEG Light urine Const alert, no apparent distress, average body habitus and healthy appearing Constitutional Narrative: Patient is deaf General Appearance: cooperative, comfortable and well developed Orientation / Consciousness: awake Exam Limitations: no limitations Nutritional Appearance: underweight HEENT normocephalic Eyes PERRL General Eye: normal appearance of both eyes Lymph Lymphatic: no lymphadenopathy noted Chest inspection of chest normal Resp normal respiratory effort, normal air movement, no retractions, no use of accessory muscles and clear to auscultation bilaterally Cardio regular rate, regular rhythm, S1 normal heart sound, S2 normal heart sound and no murmurs GI normal to inspection, nondistended, normoactive bowel sounds, non-tender and no masses Auscultation: normoactive bowel sounds Palpation: soft Bladder / Kidney Exam: catheter in place and bladder normal to palpation Extremity normal to inspection and no pedal edema Neuro Sensorium / Orientation: awake and alert Motor Exam: muscle tone normal throughout Psych cooperative Assessment & Plan Assessment/Plan (1) RTEVOR (acute kidney injury): (2) Benign essential hypertension: (3) Type 1 diabetes: (4) CKD (chronic kidney disease): PLAN: Plan - Baseline renal function is unclear serum creatinine was 1.60 mg/dL in 2020. Suspect the patient has underlying diabetic kidney disease.? He is proteinuric in nephrotic range and has had longstanding, poorly controlled diabetes with ret inopathy. Serologies including ANCA, C3, and C4 are negative.? Immunofixation is negative for monoclonal protein. It is possible that we are seeing progression of diabetic kidney disease towards ESRD. Unfortunately, biopsy could not be done because of patient's respiratory status and anxiety. Patient had cardiac catheterization 09/28: Significant diffuse two-vessel disease.? Echo: EF 35% with stage III diastolic dysfunction and pulmonary hypertension - patient has PEG. - Blood pressures acceptable -Continue dialysis Wednesday, Wednesday, Wednesday Has been denied for [facility]. Likely will go to a [facility] with dialysis. If no signs of renal recovery in the next 1 to 2 months, will plan for a kidney biopsy.
[2022-10-13 13:00] LABS: Bedside Glucose 261 mg/dL (74-106)
--- NOTE | 2022-10-13 13:58 | CT_ITS ---
STUDY: CT ABDOMEN WITH CONTRAST REASON FOR EXAM: Male, 57 years old. Intractable nausea and vomiting. Acute renal failure. RADIATION DOSAGE (If Supplied By Facility): CTDIvol = ( 14.54 ) mGy, DLP = ( 805.66 ) mGycm TECHNIQUE: Transaxial images were obtained post I.V. administration of IV 75mL Isovue-300, and without oral contrast. Sagittal and coronal images were reconstructed. Individualized dose optimization techniques were used for this CT. COMPARISON: None. FINDINGS: Patchy bibasilar pulmonary infiltrates. Coronary artery calcification. Normal liver. The patient is status post cholecystectomy. Normal spleen. Normal pancreas. Normal bilateral adrenal glands. 1.1 cm cyst in the upper medial portion of the right kidney. Normal left kidney. There is a small hiatal hernia. A PEG tube is seen within the body of the stomach. Normal small intestine. Normal colon. There are surgical clips in the region of the appendix consistent with a prior appendectomy. There is diffuse atherosclerotic calcification of the abdominal aorta and its major visceral branches, without a demonstrated aneurysm. Normal inferior vena cava. Slightly enlarged benign appearing left retroperitoneal lymph node measuring 1.85 cm. Normal abdominal wall. Normal osseous structures. CT/Abdomen WITH IV Contrast IMPRESSION: Extensive atherosclerotic calcification of the aorta and major visceral branches. Small right renal cyst. Mildly large benign-appearing left retroperitoneal lymph node. Coronary artery calcification. Patchy bibasilar pulmonary infiltrates. Electronically Signed: Eleazar Farrar MD at 15:19 EST ,
--- NOTE | 2022-10-13 15:35 | CASEMGMT ---
HUSSEIN met with patient's son and . HUSSEIN introduced self and role at [facility]. SW let them know patient's insurance denied [facility]. SW [place] [facility] [facility]. SW provided them with a [place] of [place] [facility] [place]providers including quality and resource use data and consistent with patient?s preferred geographic region, medical needs, and insurance network were provided from the [employer]. Their first choice was [facility]. SW told him SW will work on referral. Before SW sent referral HOTSHOT SUPERINTENDENT told SW patient's son said they want [facility] as their first choice and not [facility]. SW sent a referral to [facility]. Lainey at [facility] said they could take patient, but they currently to not have any beds, but are hoping to have beds toward the end of the week. Patient is not currently medically ready. Plan: d/c to SNF, possibly [facility] if a bed opens up towards the end of the week. June Piña MAIL LIST LIBRARIAN LEFTY
[2022-10-13] MEDS: Metoclopramide 10 MG/2 ML Vial IV ×2 (18:19→23:15)
[2022-10-13] MEDS: NEPRO TUBE FEED 1,000 ML 10 ML GT (18:23)
[2022-10-13 18:40] LABS: Bedside Glucose 204 mg/dL (74-106)
--- NOTE | 2022-10-13 21:43 | CPS ---
Walked into patients room, heard him gurgling and coughing trying to protect airway. RT suctioned orotracheally, obtained moderate amount of creamy yellow/carrasco sputum. But now pt is working to breathe so he requested the bipap. RT warned pt , if he feels sick or begins to throw up to take off bipap mask immediately. Will continue to check on pt frequently.
[2022-10-13] MEDS: Atorvastatin Calcium 40 MG Tablet GT (22:46)
[2022-10-13] MEDS: Latanoprost 0.005% 1 Bottle 1 DRP OPHTHALMIC (22:48)
[2022-10-13] MEDS: Heparin Injection (Vial) 5,000 UNIT/ML VIAL 5000 UNIT SC (23:00)
--- NOTE | 2022-10-13 23:38 | RAD_ITS ---
INDICATION: fever EXAMINATION/TECHNIQUE: X-RAY - XR Chest 1 View COMPARISON: 10/09/2022 FINDINGS: LIFE-SUPPORT AND LINES: 1. LEFT IJ dialysis catheter project along course the SVC without change. 2. No pneumothorax. HEART AND VESSELS: Cardiac silhouette is unchanged, no evidence congestive failure. LUNGS AND PLEURAL SPACES: Prominent interstitial markings at the lung bases greater on the LEFT than RIGHT, additional asymmetric prominence of the LEFT hilum and suprahilar regions. No airspace consolidation or effusion. MEDIASTINUM AND HILAR REGIONS: No masses adenopathy noted. No areas of calcification. Visualized upper airway is normal in position. BONY ELEMENTS: No acute bony changes noted. RAD/Chest 1 View (Portable) IMPRESSION: 1. LEFT IJ dialysis catheter without change. No pneumothorax. 2. No evidence congestive failure. 3. Prominent perihilar and infrahilar markings on the LEFT. Early or developing atypical infiltrate is a consideration. There is prominence of the LEFT hilum. Electronically Signed: Antonio Alan MD at 0:06 EST ,
[2022-10-13 23:51] LABS: Bedside Glucose 134 mg/dL (74-106)
[2022-10-14] VITALS (15 sets, daily range): BP systolic 121–163; BP diastolic 54–84; PULSE 75–97; RESP 16–20; TEMP 37–38.4; O2SAT 93–98
--- NOTE | 2022-10-14 00:10 | NURSING ---
Dr Caro was notified of pt's fever tonight. Order received for chest xray d/t symptoms and pt has had aspirations recently per report.
[2022-10-14] MEDS: hydrALAZINE 50 MG Tablet GT ×3 (05:57→21:40)
[2022-10-14] MEDS: Heparin Injection (Vial) 5,000 UNIT/ML VIAL 5000 UNIT SC ×3 (05:59→21:42)
[2022-10-14] MEDS: Ondansetron 4 MG/2 ML Vial IV ×4 (05:59→23:10)
[2022-10-14] MEDS: Metoclopramide 10 MG/2 ML Vial IV ×4 (06:00→23:10)
[2022-10-14] MEDS: 0.9% Saline Lock 10 ML Syringe IV ×5 (06:03→23:10)
[2022-10-14] MEDS: Insulin Lispro 100 UNIT/ML INSULN.PEN SC ×7 (06:07→23:17)
[2022-10-14 06:26] LABS: Absolute Lymphocyte Count 0.59 X10^3/uL (0.83-4.51); Absolute Neutrophil Count 1.3 X10^3/uL (2.0-7.7); Basophil# 0.05 X10^3/uL; Basophil% 1.8 % (0-1); Eosinophil# 0.12 X10^3/uL; Eosinophils% 4.4 % (0-5); Hematocrit 24.6 % (40-54); Hemoglobin 7.6 g/dL (13.0-16.5); Lymphocyte # 0.59 X10^3/ul (0.83-4.51); Lymphocyte % 21.7 % (19-41); Mean Corp Hgb Conc 30.9 g/dL (32-36); Mean Corpuscular Hgb 29.8 pg (27.0-32.0); Mean Corpuscular Volume 96.5 fL (80-94); Mean Platelet Vol. 10.7 fl (6.2-12.0); Monocyte# 0.62 X10^3/uL; Monocyte% 22.8 % (0-10); NRBC Flagged by Analyzer 0 % (0-5); Neutrophil # 1.33 X10^3/uL (2.7-7.7); Neutrophil % 48.9 % (47-70); POSITIVE DIFFERENTIAL YES; POSITIVE MORPHOLOGY YES; Platelet Count 365 K/mm3 (150-450); RBC Distribution Width CV 12.9 % (11.6-14.6); RBC Distribution Width SD 44.9 fl (35.1-43.9); Red Blood Count 2.55 M/mm3 (4.6-6.2); White Blood Count 2.7 K/mm3 (4.4-11.0)
[2022-10-14 06:28] LABS: Differential Indicated SCAN CRITERIA MET
[2022-10-14 06:55] LABS: Vancomycin, Random Level 16.7 ug/mL (0.0-15.0)
[2022-10-14 07:04] LABS: ALB/GLOB Ratio 0.3 RATIO (0.9-2.4); AST(SGOT) 19 U/L (15-37); Alanine Aminotransfer ALT/SGPT 13 U/L (16-61); Albumin, Serum 1.5 g/dL (3.2-5.0); Alkaline Phosphatase 114 U/L (45-117); Anion Gap 12 (5-15); BUN 44 mg/dL (7-18); BUN/Creat Ratio 6.3 RATIO (10-20); Calcium,Total 8.6 mg/dL (8.5-10.1); Chloride 98 mmol/L (98-107); Creatinine, Serum 6.97 mg/dL (0.70-1.30); EST Glomerular Filtration Rate 9 mL/min (>60); Est Glom Filt Rate - Afr Amer 11 mL/min (>60); Estimated Creatinine Clearance 11.73 ml/min; Glucose 325 mg/dL (74-106); Potassium 3.8 mmol/L (3.5-5.1); Protein, Total 6.5 g/dL (6.4-8.2); Sodium Level 133 mmol/L (136-145)
[2022-10-14 07:05] LABS: Differential Comment SCANNED
[2022-10-14 07:16] LABS: Bedside Glucose 324 mg/dL (74-106)
--- NOTE | 2022-10-14 08:50 | PCM.PN.HOSP ---
Subjective Subjective Patient appears to be tolerating tube feeds at 10 cc/h. Objective Data Objective Data Vital Signs: Vital Signs Temp Pulse Resp BP Pulse Ox O2 Del Method O2 Flow Rate 37.1 C 92 18 150/72 H 97 Nasal Cannula 3 10/14/22 05:03 10/14/22 07:00 10/14/22 05:03 10/14/22 05:57 10/14/22 07:35 10/14/22 08:10 10/14/22 08:10 FiO2 3 10/13/22 22:43 Oxygen Flow Rate (L/min) 3 Oxygen Delivery Method Nasal Cannula Weight: 71.8 kg Body Mass Index (BMI) 25.8 Intake & Output: Intake and Output for Last 24 Hours 10/12/22 10/13/22 10/14/22 23:59 23:59 23:59 Intake Total 1820 / 1820 545 / 765 690 / 690 Output Total 2200 / 2200 560 / 960 800 / 800 Balance -380 / -380 -15 / -195 -110 / -110 Medical Nutrition Assessment Dietitian: Malnutrition Criteria Met Start: 10/12/22 13:19 Freq: Status: Active Protocol: Document 10/12/22 13:19 RMA (Rec: 10/12/22 13:19 RMA [id number]) Nutrition Malnutrition Evidence of Malnutrition Exists Yes Malnutrition (severe): Acute Illness/Injury Evidenced By Suboptimal Energy Intake ( Severe),Weight Loss (Severe) Intake Problem Inadequate Oral Intake Etiology related to dysphagia Signs/Symptoms as evidenced by NPO status Status Active Problem Clinical Problem Acute Disease or Injury Related Malnutrition Etiology Severe protein-calorie malnutrition in the context of acute illness related to inadequate oral intake/ dysphagia Signs/Symptoms as evidenced by 11% wt loss in less than 1 month, NPO, need for TF and TF meeting less than 50% estimated nutrition needs Status Active Problem Altered Nutrient-Related Laboratory Values Etiology related to diabetes Signs/Symptoms as evidenced by glucose 332 Status Resolved Problem Recommendation Dietitian Recommendations/Changes NPO per CERTIFIED ORTHOTIST PRACTICE MANAGER. PEG TF should meet~100% estimated nutrition needs as tolerated. Optimal TF via PEG should be increased as tolerated to 210mL bolus Nepro 5x/day w/ 100mL H2O flush before and after each bolus to provide 1859 calories, 85 g protein, and 1763mL total fluid/day. Lab / Micro Data Result Diagrams: 10/14/22 06:05 10/14/22 06:05 Labs: Laboratory Results - last 24 hr 10/12/22 09:35: Vitamin B12 680 10/13/22 11:24: POC Glucose 261 H 10/13/22 18:17: POC Glucose 204 H 10/13/22 23:11: POC Glucose 134 H 10/14/22 06:05: Random Vancomycin 16.7 H 10/14/22 06:05: WBC 2.7 L, RBC 2.55 L, Hgb 7.6 L, Hct 24.6 L, MCV 96.5 H, MCH 29.8, MCHC 30.9 L, RDW Std Deviation 44.9 H, RDW Coeff of Jenifer 12.9, Plt Count 365, MPV 10.7, Immature Gran % (Auto) 0.400, Neut % (Auto) 48.9, Lymph % (Auto) 21.7, [place] % (Auto) 22.8 H, Eos % (Auto) 4.4, Baso % (Auto) 1.8 H, Absolute Neuts (auto) 1.3 L, Absolute Lymphs (auto) 0.59 L, Nucleated RBC % 0, Differential Comment SCANNED, Diff Path Review February10/14/22 06:05: Sodium 133 L, Potassium 3.8, Chloride 98, Carbon Dioxide 23.0, Anion Gap 12, BUN 44 H, Creatinine 6.97 H, Estim Creat Clear Calc 11.73, Est GFR (MDRD) Af Amer 11 L, Est GFR (MDRD) Non-Af 9 L, BUN/Creatinine Ratio 6.3 L, Glucose 325 H, Calcium 8.6, Total Bilirubin 0.40, AST 19, ALT 13 L, Alkaline Phosphatase 114, Total Protein 6.5, Albumin 1.5 L, Globulin 5.0 H, Albumin/Globulin Ratio 0.3 L 10/14/22 06:05: POC Glucose 324 H Micro: Microbiology 10/06/22 09:30 Blood Culture (Wb) - Anticubital Left Blood Culture - Final No growth in 5 days. 10/06/22 09:00 Blood Culture (Wb) - Anticubital Right Blood Culture - Final No growth in 5 days. 10/06/22 15:10 Sputum, Induced/Lukens Gram Stain - Final 10/06/22 15:10 Sputum, Induced/Lukens Respiratory Culture - Final Staphylococcus haemolyticus 10/06/22 09:00 Urine Catheter - Lopez Urine Culture - Final Culture exhibits no growth. 10/06/22 09:00 Mucosa - Nasopharyngeal Respiratory Panel (PCR) - Final 10/06/22 09:00 Nasal Secretion SARS-CoV-2 & FLU Antigen (Rapid) - Final 09/23/22 07:34 Sputum, Tracheal Aspirate Gram Stain - Final 09/23/22 07:34 Sputum, Tracheal Aspirate Respiratory Culture - Final Staphylococcus aureus 09/22/22 07:20 Sputum, Induced/Lukens Gram Stain - Final 09/22/22 07:20 Sputum, Induced/Lukens Respiratory Culture - Final Mixed normal respiratory amparo. No Streptococcus pneumoniae, beta-hemolytic Streptococcus or Staphylococcus aureus isolated. 09/17/22 15:45 Urine, Clean Catch Urine Culture - Final Culture exhibits no growth. 09/16/22 07:05 Nasal Secretion SARS-CoV-2 & FLU Antigen (Rapid) - Final Radiography Diagnostic Testing: Radiology Impression KUB X-Ray 10/13/22 10:00 IMPRESSION: Catheter overlying the right side of the abdomen terminating in the upper medial abdomen as described. No complicating features. Electronically Signed: Jack Nolan at 10:20 EST , Abdomen CT 10/13/22 13:58 IMPRESSION: Extensive atherosclerotic calcification of the aorta and major visceral branches. Small right renal cyst. Mildly large benign-appearing left retroperitoneal lymph node. Coronary artery calcification. Patchy bibasilar pulmonary infiltrates. Electronically Signed: Eleazar Farrar MD at 15:19 EST , Chest X-Ray 10/13/22 23:38 IMPRESSION: 1. LEFT IJ dialysis catheter without change. No pneumothorax. 2. No evidence congestive failure. 3. Prominent perihilar and infrahilar markings on the LEFT. Early or developing atypical infiltrate is a consideration. There is prominence of the LEFT hilum. Electronically Signed: Antonio Alan MD at 0:06 EST , Physical Exam Const alert Constitutional Narrative: Up in bed. On dialysis. No family to interpret nor did he have the interpreting device to communicate with the patient. As mentioned previously, patient cannot read nor read lips. Resp normal respiratory effort and no retractions Cardio regular rate, regular rhythm, S1 normal heart sound and S2 normal heart sound GI normal to inspection, nondistended, normoactive bowel sounds and soft to palpation Assessment & Plan Assessment/Plan (1) Non-ST elevated myocardial infarction (non-STEMI): PLAN: Had cardiac cath this admission which showed diffusely diseased 2 vessels with LV systolic dysfunction with an LV gram EF of 40%. It was recommended tertiary care transfer referral for targeted PCI after he is stabilized. 09/30 attempted to transfer but they were not excepting transfers at this time. Previous hospitalist discussed with cardiology and it was agreed that he could continue medical management with outpatient follow-up with cardiac surgeon. Coreg, aspirin, atorvastatin, Lasix Cardiology following (2) Acute renal failure: PLAN: No improvement. Does have some urine output, but likely HD-dependent. 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 Continue glargine 20, lispro 3 Q6h and SSI. Advance as he tolerates tube feeds. (4) Congenital deafness: PLAN: Complicates care and recovery. Initially it was thought that the patient could read lips and right but he just nods his head in agreement when he clearly does not understand what is actually being said to him or written to him. Patient can only communicate through sign language effectively. On the third, I had an diplomatic interpreter/translator speak with the patient and the diplomatic interpreter/translator had difficulty understanding the patient as well despite being on to see clearly what he was doing with his hands. Patient was mentioning something about perhaps and he kept on repeating that to the food safety officer. The food safety officer understood that he was meaning wraps but the context was not understood by the diplomatic interpreter/translator nor myself with patient was trying to say. Discussion with the patient's stepson states that the patient is not mentally impaired but had very poor education growing up. So not are we dealing with the patient being deaf, not be able to read lips nor text, the patient is under educated even with people that can utilize Gabonese sign language. (5) Acute respiratory failure with hypoxia: PLAN: Resolved Was intubated in the ICU and has since been extubated Secondary to CHF (6) Cardiomyopathy: QUALIFIERS: Cardiomyopathy type: ischemic Qualified Code(s): I25.5 - Ischemic cardiomyopathy PLAN: Ischemic EF 35%. Moderate to severe global hypokinesis of the LV. Mild to moderate mitral valve insufficiency. Pulmonary artery systolic pressure of 40 mmHg On Coreg Cannot tolerate ANIA/ARB due to kidney function (7) Pneumonia: QUALIFIERS: Laterality: unspecified laterality Lung location: unspecified part of lung Pneumonia type: due to unspecified organism Qualified Code(s): J18.9 - Pneumonia, unspecified organism PLAN: Staph112/08: Cultures pending, on Vanco and Zosyn, O2 sat 99%, tachypnea improving. Is leukopenic today, will monitor may need to repeat to verify. 10/08: So far cultures are no growth to date and seems to be improving. May have been that this was aspiration pneumonia versus pneumonitis though Pro-José was elevated at 1.6. Continue antibiotics at this time and recheck Pro-José in the morning. Leukopenia slightly improved, does have elevated eosinophil count, will monitor differential 10/09: Leukopenia improved 10/10: Fever has improved, sputum growing staph hemolyticus which is sensitive to vancomycin. Will stop Zosyn. Has been on antibiotics since 10/06. 10/13: DC abx as he has completed 7 days of abx. (8) Regurgitation of food: PLAN: #Regurgitation of tube feeds Have tried continuous and bolus feeds with various levels of success They have been on hold today, he is on Reglan and with his kidney function he is on the max dose of Reglan, per report has been having stool output. Will need to continue to adjust regimen to improve tolerance TPN would not be a good long-term option. 10/11/: TF were held yesterday, doing well today, denying any abdominal pain or nausea, reportedly had bowel movement overnight. We will schedule Zofran, restart tube feeds 4 times a day with smaller amount, on Reglan, scheduled MiraLAX in the event that there is a component of poor transit. May need to consider GI input or surgery for jejunal feedings if absolutely unable to tolerate PEG tube to maintain nutrition Gastric emptying study cannot be performed as pt has a PEG tube. Recheck abd xray showed no ileus or bowel obstruction. 10/13: Discussed with Dr. Chung, who recommends CT with contrast. CT showed no obstruction. He was unsure of a J-tube would be of benefit for the patient and recommended instead of the bolus feedings that we try utilizing continuous tube feeds. So we started the patient back on his Nepro at 10 cc/h. The patient does seem to tolerate that that may need to consider different formula. 10/14: Patient had been on Nepro 10 cc/h. Discussed with nutrition and patient had been vomiting at 45 cc/h continuous with Nepro before. We will try vital at 20 cc/h today and if he tolerates that then will increase to 30 tomorrow. Additionally, we will decrease his flushes from 120 to 60 cc. (9) Macrocytic anemia: PLAN: TSH has been normal Will check B12 and folate Iron has been low but his ferritin has been to 65 Hemoglobin 6.6 today. White count is low but his platelets seem to be around the same range so I do not feel that this is delusional today. We will transfuse 1 unit packed red blood cells. With the patient's CAD, would recommend a transfusion threshold of 8 PLAN: Plan Hypertension Continue to adjust antihypertensives, Coreg increased on 10/04 Nephrology recommended to hold hydralazine and Coreg on the mornings of dialysis, added instructions DVT ppx: heparin subcu 10/13: Spent an additional 30 minutes discussing with the patient's son-in-law who interpreted to the patient's who is also deaf. Expressed to them both that patient's limiting factor is his ongoing nausea and vomiting with tube feeds despite having the PEG tube. That eventually the plan would be for him to go to a care home facility. I told him there and I cannot guarantee that they would have the diplomatic interpreter/translator readily available and he may spend much of his existence at the nursing facility not be able to communicate with anyone as patient cannot read, cannot read lips and speaks only in sign and as was evidenced today patient does not even signed very well and gets confused with speaking with someone who does use Gabonese sign language. I did mention to them about hospice as a possibility down the road given that his quality of life will likely be very poor particularly since he cannot communicate with anyone other than people that sign. This son-in-law stated that they are not ready for that at this time. Charges/Coding Visit Charges Inpatient E&M: 30682 Subs Hosp L2
--- NOTE | 2022-10-14 09:53 | CASEMGMT ---
ISABEL CAMARA called and updated Darnell at [facility] that patient will now be going to SNF and will need chair time at [facility]. Darnell to confirm chair time and follow-up with [facility]. [facility] will continue to follow this patient and plan for a safe discharge.
--- NOTE | 2022-10-14 10:39 | PCM.PN.REN ---
Subjective Subjective no new events Objective Data Objective Data Vital Signs: Vital Signs Temp Pulse Resp BP Pulse Ox O2 Del Method O2 Flow Rate 98.6 F 88 16 163/84 H 98 Nasal Cannula 3 10/14/22 10:00 10/14/22 10:00 10/14/22 10:00 10/14/22 10:00 10/14/22 10:00 10/14/22 10:00 10/14/22 10:00 FiO2 3 10/13/22 22:43 Oxygen Flow Rate (L/min) 3 Oxygen Delivery Method Nasal Cannula Weight: 71.8 kg Body Mass Index (BMI) 25.8 Intake & Output: Intake and Output for Last 24 Hours 10/12/22 10/13/22 10/14/22 23:59 23:59 23:59 Intake Total 1820 / 1820 545 / 765 690 / 690 Output Total 2200 / 2200 560 / 960 800 / 800 Balance -380 / -380 -15 / -195 -110 / -110 Medical Nutrition Assessment Dietitian: Malnutrition Criteria Met Start: 10/12/22 13:19 Freq: Status: Active Protocol: Document 10/12/22 13:19 RMA (Rec: 10/12/22 13:19 RMA [id number]) Nutrition Malnutrition Evidence of Malnutrition Exists Yes Malnutrition (severe): Acute Illness/Injury Evidenced By Suboptimal Energy Intake ( Severe),Weight Loss (Severe) Intake Problem Inadequate Oral Intake Etiology related to dysphagia Signs/Symptoms as evidenced by NPO status Status Active Problem Clinical Problem Acute Disease or Injury Related Malnutrition Etiology Severe protein-calorie malnutrition in the context of acute illness related to inadequate oral intake/ dysphagia Signs/Symptoms as evidenced by 11% wt loss in less than 1 month, NPO, need for TF and TF meeting less than 50% estimated nutrition needs Status Active Problem Altered Nutrient-Related Laboratory Values Etiology related to diabetes Signs/Symptoms as evidenced by glucose 332 Status Resolved Problem Recommendation Dietitian Recommendations/Changes NPO per TUBERCULOSIS SPECIALIST. PEG TF should meet~100% estimated nutrition needs as tolerated. Optimal TF via PEG should be increased as tolerated to 210mL bolus Nepro 5x/day w/ 100mL H2O flush before and after each bolus to provide 1859 calories, 85 g protein, and 1763mL total fluid/day. Lab / Micro Data Result Diagrams: 10/14/22 06:05 10/14/22 06:05 Labs: Laboratory Results - last 24 hr 10/13/22 11:24: POC Glucose 261 H 10/13/22 18:17: POC Glucose 204 H 10/13/22 23:11: POC Glucose 134 H 10/14/22 06:05: Random Vancomycin 16.7 H 10/14/22 06:05: WBC 2.7 L, RBC 2.55 L, Hgb 7.6 L, Hct 24.6 L, MCV 96.5 H, MCH 29.8, MCHC 30.9 L, RDW Std Deviation 44.9 H, RDW Coeff of Jenifer 12.9, Plt Count 365, MPV 10.7, Immature Gran % (Auto) 0.400, Neut % (Auto) 48.9, Lymph % (Auto) 21.7, [place]ura % (Auto) 22.8 H, Eos % (Auto) 4.4, Baso % (Auto) 1.8 H, Absolute Neuts (auto) 1.3 L, Absolute Lymphs (auto) 0.59 L, Nucleated RBC % 0, Differential Comment SCANNED, Diff Path Review February10/14/22 06:05: Sodium 133 L, Potassium 3.8, Chloride 98, Carbon Dioxide 23.0, Anion Gap 12, BUN 44 H, Creatinine 6.97 H, Estim Creat Clear Calc 11.73, Est GFR (MDRD) Af Amer 11 L, Est GFR (MDRD) Non-Af 9 L, BUN/Creatinine Ratio 6.3 L, Glucose 325 H, Calcium 8.6, Total Bilirubin 0.40, AST 19, ALT 13 L, Alkaline Phosphatase 114, Total Protein 6.5, Albumin 1.5 L, Globulin 5.0 H, Albumin/Globulin Ratio 0.3 L 10/14/22 06:05: POC Glucose 324 H Micro: Microbiology 10/06/22 09:30 Blood Culture (Wb) - Anticubital Left Blood Culture - Final No growth in 5 days. 10/06/22 09:00 Blood Culture (Wb) - Anticubital Right Blood Culture - Final No growth in 5 days. 10/06/22 15:10 Sputum, Induced/Lukens Gram Stain - Final 10/06/22 15:10 Sputum, Induced/Lukens Respiratory Culture - Final Staphylococcus haemolyticus 10/06/22 09:00 Urine Catheter - Lopez Urine Culture - Final Culture exhibits no growth. 10/06/22 09:00 Mucosa - Nasopharyngeal Respiratory Panel (PCR) - Final 10/06/22 09:00 Nasal Secretion SARS-CoV-2 & FLU Antigen (Rapid) - Final 09/23/22 07:34 Sputum, Tracheal Aspirate Gram Stain - Final 09/23/22 07:34 Sputum, Tracheal Aspirate Respiratory Culture - Final Staphylococcus aureus 09/22/22 07:20 Sputum, Induced/Lukens Gram Stain - Final 09/22/22 07:20 Sputum, Induced/Lukens Respiratory Culture - Final Mixed normal respiratory amparo. No Streptococcus pneumoniae, beta-hemolytic Streptococcus or Staphylococcus aureus isolated. 09/17/22 15:45 Urine, Clean Catch Urine Culture - Final Culture exhibits no growth. 09/16/22 07:05 Nasal Secretion SARS-CoV-2 & FLU Antigen (Rapid) - Final Radiography Diagnostic Testing: Radiology Impression Abdomen CT 10/13/22 13:58 IMPRESSION: Extensive atherosclerotic calcification of the aorta and major visceral branches. Small right renal cyst. Mildly large benign-appearing left retroperitoneal lymph node. Coronary artery calcification. Patchy bibasilar pulmonary infiltrates. Electronically Signed: Eleazar Farrar MD at 15:19 EST , Chest X-Ray 10/13/22 23:38 IMPRESSION: 1. LEFT IJ dialysis catheter without change. No pneumothorax. 2. No evidence congestive failure. 3. Prominent perihilar and infrahilar markings on the LEFT. Early or developing atypical infiltrate is a consideration. There is prominence of the LEFT hilum. Electronically Signed: Antonio Alan MD at 0:06 EST , Physical Exam Narrative Patient is resting comfortably S1-S2 regular Normal respiration positive for PEG Light urine Const alert, no apparent distress, average body habitus and healthy appearing Constitutional Narrative: Patient is deaf General Appearance: cooperative, comfortable and well developed Orientation / Consciousness: awake Exam Limitations: no limitations Nutritional Appearance: underweight HEENT normocephalic Eyes PERRL General Eye: normal appearance of both eyes Lymph Lymphatic: no lymphadenopathy noted Chest inspection of chest normal Resp normal respiratory effort, normal air movement, no retractions, no use of accessory muscles and clear to auscultation bilaterally Cardio regular rate, regular rhythm, S1 normal heart sound, S2 normal heart sound and no murmurs GI normal to inspection, nondistended, normoactive bowel sounds, non-tender and no masses Auscultation: normoactive bowel sounds Palpation: soft Bladder / Kidney Exam: catheter in place and bladder normal to palpation Extremity normal to inspection and no pedal edema Neuro Sensorium / Orientation: awake and alert Motor Exam: muscle tone normal throughout Psych cooperative Assessment & Plan Assessment/Plan (1) TREVOR (acute kidney injury): (2) Benign essential hypertension: (3) Type 1 diabetes: (4) CKD (chronic kidney disease): PLAN: Plan - Baseline renal function is unclear serum creatinine was 1.60 mg/dL in 2020. Suspect the patient has underlying diabetic kidney disease.? He is proteinuric in nephrotic range and has had longstanding, poorly controlled diabetes with retinopathy. Serologies including ANCA, C3, and C4 are negative.? Immunofixation is negative for monoclonal protein. It is possible that we are seeing progression of diabetic kidney disease towards ESRD. Unfortunately, biopsy could not be done because of patient's respiratory status and anxiety. Patient had cardiac catheterization 09/28: Significant diffuse two-vessel disease.? Echo: EF 35% with stage III diastolic dysfunction and pulmonary hypertension - patient has PEG. - Blood pressures acceptable -Continue dialysis Wednesday, Wednesday, Wednesday Has been denied for [facility]. Likely will go to a residential with dialysis. If no signs of renal recovery in the next 1 to 2 months, will plan for a kidney biopsy. seen on HD today UF 2-3 L
[2022-10-14 12:01] LABS: Bedside Glucose 171 mg/dL (74-106)
--- NOTE | 2022-10-14 12:07 | DIALYSIS ---
1245 Hemodialysis x 3.5 hours, net UF 3000 ml. Patient tolerance to UFR gauged based on BP only (crit. line not verifying), as per Dr. Truong at bedside. Blood returned to patient at end of treatment. Catheter ports closed with heparin (1000 units/ml x 1.9 ml in each port). RN report at bedside.
[2022-10-14] MEDS: Heparin 10,000 UNITS/10 ML Vial 3800 UNITS IV (12:45)
[2022-10-14] MEDS: amLODIPine 5 MG Tablet PO (12:52)
[2022-10-14] MEDS: Aspirin E.C. 81 MG Tablet PO (12:52)
[2022-10-14] MEDS: Menthol/Lanolin/Calamine/Znox 113 GM Tube 1 APPLIC TOPICAL ×2 (12:53→21:41)
[2022-10-14] MEDS: Carvedilol 25 MG Tablet GT ×2 (12:53→21:39)
[2022-10-14] MEDS: Isosorbide DN 10 MG Tablet 5 MG PO ×2 (12:53→21:39)
[2022-10-14] MEDS: Clopidogrel Bisulfate 75 MG Tablet PO (12:53)
[2022-10-14] MEDS: Dorzolamide HCL/Timolol 10 ml Bottle 1 DRP OPHTHALMIC ×2 (12:54→21:41)
[2022-10-14] MEDS: Insulin Glargine-YFGN 100 UNIT/ML Pen 20 UNIT SC (12:55)
--- NOTE | 2022-10-14 13:00 | NURSING ---
Morning medications given late at this time due to dialysis treatment
[2022-10-14 13:28] LABS: Pathologist Review Reviewed
[2022-10-14] MEDS: Vital AF 1.2 Cal Liquid 1,000 ML 20 ML GT (14:23)
[2022-10-14 17:00] LABS: Bedside Glucose 156 mg/dL (74-106)
[2022-10-14] MEDS: Latanoprost 0.005% 1 Bottle 1 DRP OPHTHALMIC (21:41)
[2022-10-14] MEDS: Atorvastatin Calcium 40 MG Tablet GT (21:42)
[2022-10-14 23:41] LABS: Bedside Glucose 100 mg/dL (74-106)
[2022-10-15] VITALS (11 sets, daily range): BP systolic 125–152; BP diastolic 63–73; PULSE 71–92; RESP 14–20; TEMP 36.4–37.4; O2SAT 95–97
[2022-10-15 02:26] LABS: Bedside Glucose 78 mg/dL (74-106)
[2022-10-15] MEDS: hydrALAZINE 50 MG Tablet GT ×3 (07:31→22:19)
[2022-10-15] MEDS: Metoclopramide 10 MG/2 ML Vial IV ×4 (07:32→22:57)
[2022-10-15] MEDS: Heparin Injection (Vial) 5,000 UNIT/ML VIAL 5000 UNIT SC ×3 (07:32→22:16)
[2022-10-15] MEDS: Ondansetron 4 MG/2 ML Vial IV ×4 (07:32→22:57)
[2022-10-15] MEDS: 0.9% Saline Lock 10 ML Syringe IV ×5 (07:36→22:56)
[2022-10-15] MEDS: Insulin Lispro 100 UNIT/ML INSULN.PEN SC ×8 (07:37→23:23)
[2022-10-15 08:00] LABS: Bedside Glucose 260 mg/dL (74-106)
--- NOTE | 2022-10-15 09:10 | PCM.PN.HOSP ---
Subjective Subjective No new events Objective Data Objective Data Vital Signs: Vital Signs Temp Pulse Resp BP Pulse Ox O2 Del Method O2 Flow Rate 37.4 C H 92 14 152/64 H 96 Nasal Cannula 1 10/15/22 03:37 10/15/22 07:31 10/15/22 03:37 10/15/22 07:31 10/15/22 03:37 10/15/22 07:45 10/15/22 07:45 FiO2 3 10/13/22 22:43 Oxygen Flow Rate (L/min) 1 Oxygen Delivery Method Nasal Cannula Weight: 69.3 kg Body Mass Index (BMI) 25.8 Intake & Output: Intake and Output for Last 24 Hours 10/13/22 10/14/22 10/15/22 23:59 23:59 23:59 Intake Total 545 / 765 1511 / 1511 442.33 / 442.33 Output Total 560 / 960 3925 / 3925 50 / 50 Balance -15 / -195 -2414 / -2414 392.33 / 392.33 Medical Nutrition Assessment Dietitian: Malnutrition Criteria Met Start: 10/12/22 13:19 Freq: Status: Active Protocol: Document 10/14/22 12:14 AG (Rec: 10/14/22 12:14 AG [id number]) Nutrition Malnutrition Evidence of Malnutrition Exists Yes Malnutrition (severe): Acute Illness/Injury Evidenced By Suboptimal Energy Intake ( Severe),Weight Loss (Severe) Intake Problem Inadequate Oral Intake Etiology related to dysphagia Signs/Symptoms as evidenced by NPO status Status Active Problem Clinical Problem Altered GI Function Etiology related to possible delayed gastric emptying Signs/Symptoms as evidenced by emesis of enteral nutrition Status Active Problem Acute Disease or Injury Related Malnutrition Etiology Severe protein-calorie malnutrition in the context of acute illness related to inadequate oral intake/ dysphagia Signs/Symptoms as evidenced by 11% wt loss in less than 1 month, NPO, need for TF and TF meeting less than 50% estimated nutrition needs Status Active Problem Altered Nutrient-Related Laboratory Values Etiology related to diabetes Signs/Symptoms as evidenced by glucose 332 Status Resolved Problem Recommendation Dietitian Recommendations/Changes 1) NPO per AMMONIUM HYDROXIDE OPERATOR. 2) Will adjust enteral nutrition formula given continued emesis of Nepro via PEG. Recommend lower fat, lower fiber formula Vital AF 1 .2 at goal rate of 60mL/hour w / 50mL H2O flush every 4 hours to provide 1728 calories, 108 g protein, and 1467mL total fluid/day. Will start at 20mL/ hour and increase by 10mL/hour every 12 hours as tolerated until goal rate is achieved. 3) Continue daily wts. Lab / Micro Data Result Diagrams: 10/14/22 06:05 10/14/22 06:05 Labs: Laboratory Results - last 24 hr 10/14/22 06:05: Diff Path Review Reviewed 10/14/22 11:38: POC Glucose 171 H 10/14/22 16:41: POC Glucose 156 H 10/14/22 23:08: POC Glucose 100 10/15/22 01:58: POC Glucose 78 10/15/22 07:28: POC Glucose 260 H Micro: Microbiology 10/06/22 09:30 Blood Culture (Wb) - Anticubital Left Blood Culture - Final No growth in 5 days. 10/06/22 09:00 Blood Culture (Wb) - Anticubital Right Blood Culture - Final No growth in 5 days. 10/06/22 15:10 Sputum, Induced/Lukens Gram Stain - Final 10/06/22 15:10 Sputum, Induced/Lukens Respiratory Culture - Final Staphylococcus haemolyticus 10/06/22 09:00 Urine Catheter - Lopez Urine Culture - Final Culture exhibits no growth. 10/06/22 09:00 Mucosa - Nasopharyngeal Respiratory Panel (PCR) - Final 10/06/22 09:00 Nasal Secretion SARS-CoV-2 & FLU Antigen (Rapid) - Final 09/23/22 07:34 Sputum, Tracheal Aspirate Gram Stain - Final 09/23/22 07:34 Sputum, Tracheal Aspirate Respiratory Culture - Final Staphylococcus aureus 09/22/22 07:20 Sputum, Induced/Lukens Gram Stain - Final 09/22/22 07:20 Sputum, Induced/Lukens Respiratory Culture - Final Mixed normal respiratory amparo. No Streptococcus pneumoniae, beta-hemolytic Streptococcus or Staphylococcus aureus isolated. 09/17/22 15:45 Urine, Clean Catch Urine Culture - Final Culture exhibits no growth. 09/16/22 07:05 Nasal Secretion SARS-CoV-2 & FLU Antigen (Rapid) - Final Physical Exam Const alert Constitutional Narrative: Patient up in a chair no acute distress. Unable to communicate with as he does not really know read lips. No informatica developer was available at that time. Resp normal respiratory effort, no retractions and no use of accessory muscles Cardio regular rate, regular rhythm, S1 normal heart sound and S2 normal heart sound GI normal to inspection, nondistended, normoactive bowel sounds, soft to palpation, non-tender and non-distended Neuro oriented x3 Assessment & Plan Assessment/Plan (1) Non-ST elevated myocardial infarction (non-STEMI): PLAN: Had cardiac cath this admission which showed diffusely diseased 2 vessels with LV systolic dysfunction with an LV gram EF of 40%. It was recommended tertiary care transfer referral for targeted PCI after he is stabilized. 09/30 attempted to transfer but they were not excepting transfers at this time. Previous hospitalist discussed with cardiology and it was agreed that he could continue medical management with outpatient follow-up with cardiac surgeon. Coreg, aspirin, atorvastatin, Lasix Cardiology following (2) Acute renal failure: PLAN: No improvement. Does have some urine output, but likely HD-dependent. 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 Continue glargine 20, lispro 3 Q6h and SSI. Advance as he tolerates tube feeds. (4) Congenital deafness: PLAN: Complicates care and recovery. Initially it was thought that the patient could read lips and right but he just nods his head in agreement when he clearly does not understand what is actually being said to him or written to him. Patient can only communicate through sign language effectively. On the third, I had an informatica developer speak with the patient and the informatica developer had difficulty understanding the patient as well despite being on to see clearly what he was doing with his hands. Patient was mentioning something about perhaps and he kept on repeating that to the cloth winding supervisor. The cloth winding supervisor understood that he was meaning wraps but the context was not understood by the informatica developer nor myself with patient was trying to say. Discussion with the patient's stepson states that the patient is not mentally impaired but had very poor education growing up. So not are we dealing with the patient being deaf, not be able to read lips nor text, the patient is under educated even with people that can utilize [place] sign language. (5) Acute respiratory failure with hypoxia: PLAN: Resolved Was intubated in the ICU and has since been extubated Secondary to CHF (6) Cardiomyopathy: QUALIFIERS: Cardiomyopathy type: ischemic Qualified Code(s): I25.5 - Ischemic cardiomyopathy PLAN: Ischemic EF 35%. Moderate to severe global hypokinesis of the LV. Mild to moderate mitral valve insufficiency. Pulmonary artery systolic pressure of 40 mmHg On Coreg Cannot tolerate ANIA/ARB due to kidney function (7) Pneumonia: QUALIFIERS: Laterality: unspecified laterality Lung location: unspecified part of lung Pneumonia type: due to unspecified organism Qualified Code(s): J18.9 - Pneumonia, unspecified organism PLAN: Staph112/08: Cultures pending, on Vanco and Zosyn, O2 sat 99%, tachypnea improving. Is leukopenic today, will monitor may need to repeat to verify. 10/08: So far cultures are no growth to date and seems to be improving. May have been that this was aspiration pneumonia versus pneumonitis though Pro-José was elevated at 1.6. Continue antibiotics at this time and recheck Pro-José in the morning. Leukopenia slightly improved, does have elevated eosinophil count, will monitor differential 10/09: Leukopenia improved 10/10: Fever has improved, sputum growing staph hemolyticus which is sensitive to vancomycin. Will stop Zosyn. Has been on antibiotics since 10/06. 10/13: DC abx as he has completed 7 days of abx. (8) Regurgitation of food: PLAN: #Regurgitation of tube feeds Have tried continuous and bolus feeds with various levels of success They have been on hold today, he is on Reglan and with his kidney function he is on the max dose of Reglan, per report has been having stool output. Will need to continue to adjust regimen to improve tolerance TPN would not be a good long-term option. 10/11/: TF were held yesterday, doing well today, denying any abdominal pain or nausea, reportedly had bowel movement overnight. We will schedule Zofran, restart tube feeds 4 times a day with smaller amount, on Reglan, scheduled MiraLAX in the event that there is a component of poor transit. May need to consider GI input or surgery for jejunal feedings if absolutely unable to tolerate PEG tube to maintain nutrition Gastric emptying study cannot be performed as pt has a PEG tube. Recheck abd xray showed no ileus or bowel obstruction. 10/13: Discussed with Dr. Chung, who recommends CT with contrast. CT showed no obstruction. He was unsure of a J-tube would be of benefit for the patient and recommended instead of the bolus feedings that we try utilizing continuous tube feeds. So we started the patient back on his Nepro at 10 cc/h. The patient does seem to tolerate that that may need to consider different formula. 10/14: Patient had been on Nepro 10 cc/h. Discussed with nutrition and patient had been vomiting at 45 cc/h continuous with Nepro before. We will try vital at 20 cc/h today and if he tolerates that then will increase to 30 tomorrow. Additionally, we will decrease his flushes from 120 to 60 cc. (9) Macrocytic anemia: PLAN: TSH has been normal Will check B12 and folate Iron has been low but his ferritin has been to 65 Hemoglobin 6.6 today. White count is low but his platelets seem to be around the same range so I do not feel that this is delusional today. We will transfuse 1 unit packed red blood cells. With the patient's CAD, would recommend a transfusion threshold of 8 PLAN: Plan Hypertension Continue to adjust antihypertensives, Coreg increased on 10/04 Nephrology recommended to hold hydralazine and Coreg on the mornings of dialysis, added instructions DVT ppx: heparin subcu 10/13: Spent an additional 30 minutes discussing with the patient's son-in-law who interpreted to the patient's who is also deaf. Expressed to them both that patient's limiting factor is his ongoing nausea and vomiting with tube feeds despite having the PEG tube. That eventually the plan would be for him to go to a nursing home facility. I told him there and I cannot guarantee that they would have the informatica developer readily available and he may spend much of his existence at the nursing facility not be able to communicate with anyone as patient cannot read, cannot read lips and speaks only in sign and as was evidenced today patient does not even signed very well and gets confused with speaking with someone who does use [place]ian sign language. I did mention to them about hospice as a possibility down the road given that his quality of life will likely be very poor particularly since he cannot communicate with anyone other than people that sign. This son-in-law stated that they are not ready for that at this time. 10/15: Was going to grab the informatica developer iPad but then the family showed up. I spoke with the patient's stepson and just told him about the plan in regards to slowly increasing his tube feeds utilizing a different formulation. Thus far, he seems to be tolerating it at 30 cc/h. We will increase him to goal and once he is at goal if he can maintain that then we can look at discharging him to nursing home facility. [facility] as that facility is close by and they would be able to come by for an informatica developer is needed. Charges/Coding Visit Charges Inpatient E&M: 78496 Subs Hosp L2
[2022-10-15] MEDS: Menthol/Lanolin/Calamine/Znox 113 GM Tube 1 APPLIC TOPICAL ×2 (09:19→22:18)
[2022-10-15] MEDS: Dorzolamide HCL/Timolol 10 ml Bottle 1 DRP OPHTHALMIC ×2 (09:19→22:16)
[2022-10-15] MEDS: Clopidogrel Bisulfate 75 MG Tablet PO (09:20)
[2022-10-15] MEDS: Carvedilol 25 MG Tablet GT ×2 (09:20→22:17)
[2022-10-15] MEDS: Isosorbide DN 10 MG Tablet 5 MG PO ×2 (09:20→22:17)
[2022-10-15] MEDS: Aspirin E.C. 81 MG Tablet PO (09:20)
[2022-10-15] MEDS: amLODIPine 5 MG Tablet PO (09:20)
[2022-10-15] MEDS: Furosemide 40 MG Tablet PO (09:20)
[2022-10-15] MEDS: Insulin Glargine-YFGN 100 UNIT/ML Pen 20 UNIT SC (09:21)
--- NOTE | 2022-10-15 11:52 | CASEMGMT ---
HUSSEIN spoke with Padma at [facility] and she said they should have a bed for patient on Wednesday. HUSSEIN will send updates once more information is available. Plan: d/c to [facility] under skilled level of care. June OLEA
[2022-10-15 12:31] LABS: Bedside Glucose 212 mg/dL (74-106)
--- NOTE | 2022-10-15 13:31 | CASEMGMT ---
HUSSEIN spoke with patient's , step son, and sister Lila. HUSSEIN updated them that [facility] bed [facility]. HUSSEIN also explained we have to wait until patient is medically. Plan: d/c to [place] June OLEA
--- NOTE | 2022-10-15 14:32 | PN.RENAL_ITS ---
Subjective Subjective no new events Objective Data Objective Data Vital Signs: Vital Signs Temp Pulse Resp BP Pulse Ox O2 Del Method O2 Flow Rate 98.5 F 80 16 135/72 H 96 Nasal Cannula 1 10/15/22 09:18 10/15/22 09:18 10/15/22 09:18 10/15/22 09:18 10/15/22 11:31 10/15/22 14:00 10/15/22 14:00 FiO2 3 10/13/22 22:43 Oxygen Flow Rate (L/min) 1 Oxygen Delivery Method Nasal Cannula Weight: 69.3 kg Body Mass Index (BMI) 25.8 Intake & Output: Intake and Output for Last 24 Hours 10/13/22 10/14/22 10/15/22 23:59 23:59 23:59 Intake Total 545 / 765 1511 / 1511 953.33 / 953.33 Output Total 560 / 960 3925 / 3925 50 / 50 Balance -15 / -195 -2414 / -2414 903.33 / 903.33 Medical Nutrition Assessment Dietitian: Malnutrition Criteria Met Start: 10/12/22 13:19 Freq: Status: Active Protocol: Document 10/15/22 14:21 AG (Rec: 10/15/22 14:22 AG [id number]) Nutrition Malnutrition Evidence of Malnutrition Exists Yes Malnutrition (severe): Acute Illness/Injury Evidenced By Suboptimal Energy Intake ( Severe),Weight Loss (Severe) Intake Problem Inadequate Oral Intake Etiology related to dysphagia Signs/Symptoms as evidenced by NPO status Status Active Problem Clinical Problem Altered GI Function Etiology related to possible delayed gastric emptying Signs/Symptoms as evidenced by emesis of enteral nutrition Status Active Problem Acute Disease or Injury Related Malnutrition Etiology Severe protein-calorie malnutrition in the context of acute illness related to inadequate oral intake/ dysphagia Signs/Symptoms as evidenced by 11% wt loss in less than 1 month, NPO, need for TF and TF meeting less than 50% estimated nutrition needs Status Active Problem Altered Nutrient-Related Laboratory Values Etiology related to diabetes Signs/Symptoms as evidenced by glucose 332 Status Resolved Problem Recommendation Dietitian Recommendations/Changes 1) NPO per ASSOCIATE PROFESSOR OF VIOLIN. 2) Continue Vital AF 1.2 as tolerated; goal rate of 60mL/ hour w/ 50mL H2O flush every 4 hours to provide 1728 calories, 108 g protein, and 1467mL total fluid/day. Started at 20mL/hour and increasing by 10mL/hour every 12 hours as tolerated until goal rate is achieved. 3) Continue daily wts. Lab / Micro Data Result Diagrams: 10/14/22 06:05 10/14/22 06:05 Labs: Laboratory Results - last 24 hr 10/14/22 16:41: POC Glucose 156 H 10/14/22 23:08: POC Glucose 100 10/15/22 01:58: POC Glucose 78 10/15/22 07:28: POC Glucose 260 H 10/15/22 12:07: POC Glucose 212 H Micro: Microbiology 10/06/22 09:30 Blood Culture (Wb) - Anticubital Left Blood Culture - Final No growth in 5 days. 10/06/22 09:00 Blood Culture (Wb) - Anticubital Right Blood Culture - Final No growth in 5 days. 10/06/22 15:10 Sputum, Induced/Lukens Gram Stain - Final 10/06/22 15:10 Sputum, Induced/Lukens Respiratory Culture - Final Staphylococcus haemolyticus 10/06/22 09:00 Urine Catheter - Olpez Urine Culture - Final Culture exhibits no growth. 10/06/22 09:00 Mucosa - Nasopharyngeal Respiratory Panel (PCR) - Final 10/06/22 09:00 Nasal Secretion SARS-CoV-2 & FLU Antigen (Rapid) - Final 09/23/22 07:34 Sputum, Tracheal Aspirate Gram Stain - Final 09/23/22 07:34 Sputum, Tracheal Aspirate Respiratory Culture - Final Staphylococcus aureus 09/22/22 07:20 Sputum, Induced/Lukens Gram Stain - Final 09/22/22 07:20 Sputum, Induced/Lukens Respiratory Culture - Final Mixed normal respiratory amparo. No Streptococcus pneumoniae, beta-hemolytic Streptococcus or Staphylococcus aureus isolated. 09/17/22 15:45 Urine, Clean Catch Urine Culture - Final Culture exhibits no growth. 09/16/22 07:05 Nasal Secretion SARS-CoV-2 & FLU Antigen (Rapid) - Final Physical Exam Narrative Patient is resting comfortably S1-S2 regular Normal respiration positive for PEG Const alert, no apparent distress, average body habitus and healthy appearing Constitutional Narrative: Patient is deaf General Appearance: cooperative, comfortable and well developed Orientation / Consciousness: awake Exam Limitations: no limitations Nutritional Appearance: underweight HEENT normocephalic Eyes PERRL General Eye: normal appearance of both eyes Lymph Lymphatic: no lymphadenopathy noted Chest inspection of chest normal Resp normal respiratory effort, normal air movement, no retractions, no use of accessory muscles and clear to auscultation bilaterally Cardio regular rate, regular rhythm, S1 normal heart sound, S2 normal heart sound and no murmurs GI normal to inspection, nondistended, normoactive bowel sounds, non-tender and no masses Auscultation: normoactive bowel sounds Palpation: soft Bladder / Kidney Exam: catheter in place and bladder normal to palpation Extremity normal to inspection and no pedal edema Neuro Sensorium / Orientation: awake and alert Motor Exam: muscle tone normal throughout Psych cooperative Assessment & Plan Assessment/Plan (1) TREVOR (acute kidney injury): (2) Benign essential hypertension: (3) Type 1 diabetes: (4) CKD (chronic kidney disease): PLAN: Plan - Baseline renal function is unclear serum creatinine was 1.60 mg/dL in 2020. Suspect the patient has underlying diabetic kidney disease.? He is proteinuric in nephrotic range and has had longstanding, poorly controlled diabetes with ret inopathy. Serologies including ANCA, C3, and C4 are negative.? Immunofixation is negative for monoclonal protein. It is possible that we are seeing progression of diabetic kidney disease towards ESRD. Unfortunately, biopsy could not be done because of patient's respiratory status and anxiety. Patient had cardiac catheterization 09/28: Significant diffuse two-vessel disease.? Echo: EF 35% with stage III diastolic dysfunction and pulmonary hypertension - patient has PEG. - Blood pressures acceptable -Continue dialysis Wednesday, Wednesday, Wednesday Has been denied for [facility]. Likely will go to a snf with dialysis. If no signs of renal recovery in the next 1 to 2 months, will plan for a kidney biopsy.
[2022-10-15 18:00] LABS: Bedside Glucose 196 mg/dL (74-106)
[2022-10-15] MEDS: Polyethylene Glycol 3350 17 GM PACKET PO (22:16)
[2022-10-15] MEDS: Atorvastatin Calcium 40 MG Tablet GT (22:19)
[2022-10-15] MEDS: Latanoprost 0.005% 1 Bottle 1 DRP OPHTHALMIC (22:20)
--- NOTE | 2022-10-15 23:42 | CPS ---
Pt refused BIPAP for tonight
[2022-10-15 23:45] LABS: Bedside Glucose 233 mg/dL (74-106)
[2022-10-16] VITALS (13 sets, daily range): BP systolic 115–168; BP diastolic 59–84; PULSE 72–102; RESP 18–20; TEMP 36.4–36.8; O2SAT 92–96
[2022-10-16] MEDS: Vital AF 1.2 Cal Liquid 1,000 ML 40 ML GT (00:56)
[2022-10-16] MEDS: Heparin Injection (Vial) 5,000 UNIT/ML VIAL 5000 UNIT SC ×3 (05:26→23:36)
[2022-10-16] MEDS: Ondansetron 4 MG/2 ML Vial IV ×4 (05:27→23:41)
[2022-10-16] MEDS: Metoclopramide 10 MG/2 ML Vial IV ×4 (05:28→23:37)
[2022-10-16] MEDS: 0.9% Saline Lock 10 ML Syringe IV ×3 (05:29→18:35)
[2022-10-16 05:41] LABS: Absolute Lymphocyte Count 0.94 X10^3/uL (0.83-4.51); Basophil# 0.08 X10^3/uL; Basophil% 1.5 % (0-1); Eosinophil# 0.56 X10^3/uL; Eosinophils% 10.6 % (0-5); Hematocrit 27.3 % (40-54); Hemoglobin 8.5 g/dL (13.0-16.5); Lymphocyte # 0.94 X10^3/ul (0.83-4.51); Lymphocyte % 17.8 % (19-41); Mean Corp Hgb Conc 31.1 g/dL (32-36); Mean Corpuscular Hgb 29.6 pg (27.0-32.0); Mean Corpuscular Volume 95.1 fL (80-94); Mean Platelet Vol. 10.8 fl (6.2-12.0); Monocyte# 0.69 X10^3/uL; NRBC Flagged by Analyzer 0 % (0-5); Neutrophil # 2.98 X10^3/uL (2.7-7.7); Neutrophil % 56.3 % (47-70); Platelet Count 382 K/mm3 (150-450); RBC Distribution Width CV 12.6 % (11.6-14.6); RBC Distribution Width SD 43.9 fl (35.1-43.9); Red Blood Count 2.87 M/mm3 (4.6-6.2); White Blood Count 5.3 K/mm3 (4.4-11.0)
[2022-10-16] MEDS: Insulin Lispro 100 UNIT/ML INSULN.PEN SC ×6 (05:43→17:07)
[2022-10-16 06:23] LABS: Anion Gap 10 (5-15); BUN 44 mg/dL (7-18); BUN/Creat Ratio 6.6 RATIO (10-20); Calcium,Total 8.3 mg/dL (8.5-10.1); Chloride 99 mmol/L (98-107); Creatinine, Serum 6.68 mg/dL (0.70-1.30); EST Glomerular Filtration Rate 9 mL/min (>60); Est Glom Filt Rate - Afr Amer 11 mL/min (>60); Estimated Creatinine Clearance 11.82 ml/min; Glucose 289 mg/dL (74-106); Potassium 3.7 mmol/L (3.5-5.1); Sodium Level 134 mmol/L (136-145)
[2022-10-16 07:01] LABS: Bedside Glucose 298 mg/dL (74-106)
--- NOTE | 2022-10-16 09:04 | PCM.PN.HOSP ---
Subjective Subjective Tolerating tube feeds which have been increased to goal rate. Objective Data Objective Data Vital Signs: Vital Signs Temp Pulse Resp BP Pulse Ox O2 Del Method O2 Flow Rate 36.5 C L 72 20 H 150/81 H 95 Nasal Cannula 1 10/16/22 06:35 10/16/22 07:27 10/16/22 06:35 10/16/22 06:35 10/16/22 07:10 10/16/22 07:37 10/16/22 07:37 FiO2 3 10/13/22 22:43 Oxygen Flow Rate (L/min) 1 Oxygen Delivery Method Nasal Cannula Weight: 69.3 kg Body Mass Index (BMI) 25.8 Intake & Output: Intake and Output for Last 24 Hours 10/14/22 10/15/22 10/16/22 23:59 23:59 23:59 Intake Total 1511 / 1511 2298.33 / 2298.33 387.34 / 387.34 Output Total 3925 / 3925 200 / 200 Balance -2414 / -2414 2098.33 / 2098.33 387.34 / 387.34 Medical Nutrition Assessment Dietitian: Malnutrition Criteria Met Start: 10/12/22 13:19 Freq: Status: Active Protocol: Document 10/15/22 14:21 AG (Rec: 10/15/22 14:22 AG [id number]) Nutrition Malnutrition Evidence of Malnutrition Exists Yes Malnutrition (severe): Acute Illness/Injury Evidenced By Suboptimal Energy Intake ( Severe),Weight Loss (Severe) Intake Problem Inadequate Oral Intake Etiology related to dysphagia Signs/Symptoms as evidenced by NPO status Status Active Problem Clinical Problem Altered GI Function Etiology related to possible delayed gastric emptying Signs/Symptoms as evidenced by emesis of enteral nutrition Status Active Problem Acute Disease or Injury Related Malnutrition Etiology Severe protein-calorie malnutrition in the context of acute illness related to inadequate oral intake/ dysphagia Signs/Symptoms as evidenced by 11% wt loss in less than 1 month, NPO, need for TF and TF meeting less than 50% estimated nutrition needs Status Active Problem Altered Nutrient-Related Laboratory Values Etiology related to diabetes Signs/Symptoms as evidenced by glucose 332 Status Resolved Problem Recommendation Dietitian Recommendations/Changes 1) NPO per TRAFFIC ATTENDANT. 2) Continue Vital AF 1.2 as tolerated; goal rate of 60mL/ hour w/ 50mL H2O flush every 4 hours to provide 1728 calories, 108 g protein, and 1467mL total fluid/day. Started at 20mL/hour and increasing by 10mL/hour every 12 hours as tolerated until goal rate is achieved. 3) Continue daily wts. Lab / Micro Data Result Diagrams: 10/16/22 05:10 10/16/22 05:10 Labs: Laboratory Results - last 24 hr 10/15/22 12:07: POC Glucose 212 H 10/15/22 17:38: POC Glucose 196 H 10/15/22 23:13: POC Glucose 233 H 10/16/22 05:10: WBC 5.3, RBC 2.87 L, Hgb 8.5 L, Hct 27.3 L, MCV 95.1 H, MCH 29.6, MCHC 31.1 L, RDW Std Deviation 43.9, RDW Coeff of Jenifer 12.6, Plt Count 382, MPV 10.8, Immature Gran % (Auto) 0.800, Neut % (Auto) 56.3, Lymph % (Auto) 17.8 L, [place] % (Auto) 13.0 H, Eos % (Auto) 10.6 H, Baso % (Auto) 1.5 H, Absolute Neuts (auto) 3.0, Absolute Lymphs (auto) 0.94, Nucleated RBC % 0 10/16/22 05:10: Sodium 134 L, Potassium 3.7, Chloride 99, Carbon Dioxide 25.0, Anion Gap 10, BUN 44 H, Creatinine 6.68 H, Estim Creat Clear Calc 11.82, Est GFR (MDRD) Af Amer 11 L, Est GFR (MDRD) Non-Af 9 L, BUN/Creatinine Ratio 6.6 L, Glucose 289 H, Calcium 8.3 L 10/16/22 05:42: POC Glucose 298 H Micro: Microbiology 10/06/22 09:30 Blood Culture (Wb) - Anticubital Left Blood Culture - Final No growth in 5 days. 10/06/22 09:00 Blood Culture (Wb) - Anticubital Right Blood Culture - Final No growth in 5 days. 10/06/22 15:10 Sputum, Induced/Lukens Gram Stain - Final 10/06/22 15:10 Sputum, Induced/Lukens Respiratory Culture - Final Staphylococcus haemolyticus 10/06/22 09:00 Urine Catheter - Lopez Urine Culture - Final Culture exhibits no growth. 10/06/22 09:00 Mucosa - Nasopharyngeal Respiratory Panel (PCR) - Final 10/06/22 09:00 Nasal Secretion SARS-CoV-2 & FLU Antigen (Rapid) - Final 09/23/22 07:34 Sputum, Tracheal Aspirate Gram Stain - Final 09/23/22 07:34 Sputum, Tracheal Aspirate Respiratory Culture - Final Staphylococcus aureus 09/22/22 07:20 Sputum, Induced/Lukens Gram Stain - Final 09/22/22 07:20 Sputum, Induced/Lukens Respiratory Culture - Final Mixed normal respiratory amparo. No Streptococcus pneumoniae, beta-hemolytic Streptococcus or Staphylococcus aureus isolated. 09/17/22 15:45 Urine, Clean Catch Urine Culture - Final Culture exhibits no growth. 09/16/22 07:05 Nasal Secretion SARS-CoV-2 & FLU Antigen (Rapid) - Final Physical Exam Const alert and no apparent distress Resp normal respiratory effort, no retractions, no use of accessory muscles and clear to auscultation bilaterally Cardio regular rate, regular rhythm, S1 normal heart sound and S2 normal heart sound GI normal to inspection, nondistended, normoactive bowel sounds, soft to palpation, non-tender and non-distended Assessment & Plan Assessment/Plan (1) Non-ST elevated myocardial infarction (non-STEMI): PLAN: Had cardiac cath this admission which showed diffusely diseased 2 vessels with LV systolic dysfunction with an LV gram EF of 40%. It was recommended tertiary care transfer referral for targeted PCI after he is stabilized. 09/30 attempted to transfer but they were not excepting transfers at this time. Previous hospitalist discussed with cardiology and it was agreed that he could continue medical management with outpatient follow-up with cardiac surgeon. Coreg, aspirin, atorvastatin, Lasix Cardiology following (2) Acute renal failure: PLAN: No improvement. Does have some urine output, but likely HD-dependent. 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 Continue glargine 20, lispro 3 Q6h and SSI. Advance as he tolerates tube feeds. (4) Congenital deafness: PLAN: Complicates care and recovery. Initially it was thought that the patient could read lips and right but he just nods his head in agreement when he clearly does not understand what is actually being said to him or written to him. Patient can only communicate through sign language effectively. On the third, I had an staff services manager speak with the patient and the staff services manager had difficulty understanding the patient as well despite being on to see clearly what he was doing with his hands. Patient was mentioning something about perhaps and he kept on repeating that to the smoking pipe coater. The smoking pipe coater understood that he was meaning wraps but the context was not understood by the staff services manager nor myself with patient was trying to say. Discussion with the patient's stepson states that the patient is not mentally impaired but had very poor education growing up. So not are we dealing with the patient being deaf, not be able to read lips nor text, the patient is under educated even with people that can utilize [place] sign language. (5) Acute respiratory failure with hypoxia: PLAN: Resolved Was intubated in the ICU and has since been extubated Secondary to CHF (6) Cardiomyopathy: QUALIFIERS: Cardiomyopathy type: ischemic Qualified Code(s): I25.5 - Ischemic cardiomyopathy PLAN: Ischemic EF 35%. Moderate to severe global hypokinesis of the LV. Mild to moderate mitral valve insufficiency. Pulmonary artery systolic pressure of 40 mmHg On Coreg Cannot tolerate ANIA/ARB due to kidney function (7) Pneumonia: QUALIFIERS: Laterality: unspecified laterality Lung location: unspecified part of lung Pneumonia type: due to unspecified organism Qualified Code(s): J18.9 - Pneumonia, unspecified organism PLAN: : Cultures pending, on Vanco and Zosyn, O2 sat 99%, tachypnea improving. Is leukopenic today, will monitor may need to repeat to verify. 10/08: So far cultures are no growth to date and seems to be improving. May have been that this was aspiration pneumonia versus pneumonitis though Pro-José was elevated at 1.6. Continue antibiotics at this time and recheck Pro-José in the morning. Leukopenia slightly improved, does have elevated eosinophil count, will monitor differential 10/09: Leukopenia improved 10/10: Fever has improved, sputum growing staph hemolyticus which is sensitive to vancomycin. Will stop Zosyn. Has been on antibiotics since 10/06. 10/13: DC abx as he has completed 7 days of abx. (8) Regurgitation of food: PLAN: #Regurgitation of tube feeds Have tried continuous and bolus feeds with various levels of success They have been on hold today, he is on Reglan and with his kidney function he is on the max dose of Reglan, per report has been having stool output. Will need to continue to adjust regimen to improve tolerance TPN would not be a good long-term option. 10/11/: TF were held yesterday, doing well today, denying any abdominal pain or nausea, reportedly had bowel movement overnight. We will schedule Zofran, restart tube feeds 4 times a day with smaller amount, on Reglan, scheduled MiraLAX in the event that there is a component of poor transit. May need to consider GI input or surgery for jejunal feedings if absolutely unable to tolerate PEG tube to maintain nutrition Gastric emptying study cannot be performed as pt has a PEG tube. Recheck abd xray showed no ileus or bowel obstruction. 10/13: Discussed with Dr. Chung, who recommends CT with contrast. CT showed no obstruction. He was unsure of a J-tube would be of benefit for the patient and recommended instead of the bolus feedings that we try utilizing continuous tube feeds. So we started the patient back on his Nepro at 10 cc/h. The patient does seem to tolerate that that may need to consider different formula. 10/14: Patient had been on Nepro 10 cc/h. Discussed with nutrition and patient had been vomiting at 45 cc/h continuous with Nepro before. We will try vital at 20 cc/h today and if he tolerates that then will increase to 30 tomorrow. Additionally, we will decrease his flushes from 120 to 60 cc. 10/15: tube feeds increased to 30cc/h (9) Macrocytic anemia: PLAN: TSH has been normal Will check B12 and folate Iron has been low but his ferritin has been to 65 Hemoglobin 6.6 today. White count is low but his platelets seem to be around the same range so I do not feel that this is delusional today. We will transfuse 1 unit packed red blood cells. With the patient's CAD, would recommend a transfusion threshold of 8 PLAN: Plan Hypertension Continue to adjust antihypertensives, Coreg increased on 10/04 Nephrology recommended to hold hydralazine and Coreg on the mornings of dialysis, added instructions DVT ppx: heparin subcu 10/13: Spent an additional 30 minutes discussing with the patient's son-in-law who interpreted to the patient's who is also deaf. Expressed to them both that patient's limiting factor is his ongoing nausea and vomiting with tube feeds despite having the PEG tube. That eventually the plan would be for him to go to a longterm facility. I told him there and I cannot guarantee that they would have the staff services manager readily available and he may spend much of his existence at the nursing facility not be able to communicate with anyone as patient cannot read, cannot read lips and speaks only in sign and as was evidenced today patient does not even signed very well and gets confused with speaking with someone who does use [place] sign language. I did mention to them about hospice as a possibility down the road given that his quality of life will likely be very poor particularly since he cannot communicate with anyone other than people that sign. This son-in-law stated that they are not ready for that at this time. 10/15: Was going to grab the staff services manager iPad but then the family showed up. I spoke with the patient's stepson and just told him about the plan in regards to slowly increasing his tube feeds utilizing a different formulation. Thus far, he seems to be tolerating it at 30 cc/h. We will increase him to goal and once he is at goal if he can maintain that then we can look at discharging him to longterm facility. They are most interested in the avenues as that facility is close by and they would be able to come by for an staff services manager is needed. Plan for discharge on the seventh the patient continues to tolerate his tube feeds. Charges/Coding Visit Charges Inpatient E&M: 03731 Subs Hosp L2
--- NOTE | 2022-10-16 10:02 | PCM.PN.REN ---
Subjective Subjective Seen on dialysis, tolerating treatment well. Objective Data Objective Data Vital Signs: Vital Signs Temp Pulse Resp BP Pulse Ox O2 Del Method O2 Flow Rate 97.7 F L 72 20 H 150/81 H 95 Nasal Cannula 1 10/16/22 06:35 10/16/22 07:27 10/16/22 06:35 10/16/22 06:35 10/16/22 07:10 10/16/22 07:37 10/16/22 07:37 FiO2 3 10/13/22 22:43 Oxygen Flow Rate (L/min) 1 Oxygen Delivery Method Nasal Cannula Weight: 69.3 kg Body Mass Index (BMI) 25.8 Intake & Output: Intake and Output for Last 24 Hours 10/14/22 10/15/22 10/16/22 23:59 23:59 23:59 Intake Total 1511 / 1511 2298.33 / 2298.33 387.34 / 387.34 Output Total 3925 / 3925 200 / 200 Balance -2414 / -2414 2098.33 / 2098.33 387.34 / 387.34 Medical Nutrition Assessment Dietitian: Malnutrition Criteria Met Start: 10/12/22 13:19 Freq: Status: Active Protocol: Document 10/15/22 14:21 AG (Rec: 10/15/22 14:22 AG [id number]) Nutrition Malnutrition Evidence of Malnutrition Exists Yes Malnutrition (severe): Acute Illness/Injury Evidenced By Suboptimal Energy Intake ( Severe),Weight Loss (Severe) Intake Problem Inadequate Oral Intake Etiology related to dysphagia Signs/Symptoms as evidenced by NPO status Status Active Problem Clinical Problem Altered GI Function Etiology related to possible delayed gastric emptying Signs/Symptoms as evidenced by emesis of enteral nutrition Status Active Problem Acute Disease or Injury Related Malnutrition Etiology Severe protein-calorie malnutrition in the context of acute illness related to inadequate oral intake/ dysphagia Signs/Symptoms as evidenced by 11% wt loss in less than 1 month, NPO, need for TF and TF meeting less than 50% estimated nutrition needs Status Active Problem Altered Nutrient-Related Laboratory Values Etiology related to diabetes Signs/Symptoms as evidenced by glucose 332 Status Resolved Problem Recommendation Dietitian Recommendations/Changes 1) NPO per CLIENT DEVELOPMENT DIRECTOR. 2) Continue Vital AF 1.2 as tolerated; goal rate of 60mL/ hour w/ 50mL H2O flush every 4 hours to provide 1728 calories, 108 g protein, and 1467mL total fluid/day. Started at 20mL/hour and increasing by 10mL/hour every 12 hours as tolerated until goal rate is achieved. 3) Continue daily wts. Lab / Micro Data Result Diagrams: 10/16/22 05:10 10/16/22 05:10 Labs: Laboratory Results - last 24 hr 10/15/22 12:07: POC Glucose 212 H 10/15/22 17:38: POC Glucose 196 H 10/15/22 23:13: POC Glucose 233 H 10/16/22 05:10: WBC 5.3, RBC 2.87 L, Hgb 8.5 L, Hct 27.3 L, MCV 95.1 H, MCH 29.6, MCHC 31.1 L, RDW Std Deviation 43.9, RDW Coeff of Jenifer 12.6, Plt Count 382, MPV 10.8, Immature Gran % (Auto) 0.800, Neut % (Auto) 56.3, Lymph % (Auto) 17.8 L, [place] % (Auto) 13.0 H, Eos % (Auto) 10.6 H, Baso % (Auto) 1.5 H, Absolute Neuts (auto) 3.0, Absolute Lymphs (auto) 0.94, Nucleated RBC % 0 10/16/22 05:10: Sodium 134 L, Potassium 3.7, Chloride 99, Carbon Dioxide 25.0, Anion Gap 10, BUN 44 H, Creatinine 6.68 H, Estim Creat Clear Calc 11.82, Est GFR (MDRD) Af Amer 11 L, Est GFR (MDRD) Non-Af 9 L, BUN/Creatinine Ratio 6.6 L, Glucose 289 H, Calcium 8.3 L 10/16/22 05:42: POC Glucose 298 H Micro: Microbiology 10/06/22 09:30 Blood Culture (Wb) - Anticubital Left Blood Culture - Final No growth in 5 days. 10/06/22 09:00 Blood Culture (Wb) - Anticubital Right Blood Culture - Final No growth in 5 days. 10/06/22 15:10 Sputum, Induced/Lukens Gram Stain - Final 10/06/22 15:10 Sputum, Induced/Lukens Respiratory Culture - Final Staphylococcus haemolyticus 10/06/22 09:00 Urine Catheter - Lopez Urine Culture - Final Culture exhibits no growth. 10/06/22 09:00 Mucosa - Nasopharyngeal Respiratory Panel (PCR) - Final 10/06/22 09:00 Nasal Secretion SARS-CoV-2 & FLU Antigen (Rapid) - Final 09/23/22 07:34 Sputum, Tracheal Aspirate Gram Stain - Final 09/23/22 07:34 Sputum, Tracheal Aspirate Respiratory Culture - Final Staphylococcus aureus 09/22/22 07:20 Sputum, Induced/Lukens Gram Stain - Final 09/22/22 07:20 Sputum, Induced/Lukens Respiratory Culture - Final Mixed normal respiratory amparo. No Streptococcus pneumoniae, beta-hemolytic Streptococcus or Staphylococcus aureus isolated. 09/17/22 15:45 Urine, Clean Catch Urine Culture - Final Culture exhibits no growth. 09/16/22 07:05 Nasal Secretion SARS-CoV-2 & FLU Antigen (Rapid) - Final Physical Exam Narrative Patient is resting comfortably S1-S2 regular Lung sounds clear anteriorly and posteriorly Abdomen soft, nontender. PEG intact No edema Tunneled HD catheter dressing clean, dry and intact Const Constitutional Narrative: Patient is deaf Assessment & Plan Assessment/Plan (1) TREVOR (acute kidney injury): (2) Benign essential hypertension: (3) Type 1 diabetes: (4) CKD (chronic kidney disease): PLAN: Plan - Baseline renal function is unclear serum creatinine was 1.60 mg/dL in 2020. Suspect the patient has underlying diabetic kidney disease.? He is proteinuric in nephrotic range and has had longstanding, poorly controlled diabetes with retinopathy. Serologies including ANCA, C3, and C4 are negative.? Immunofixation is negative for monoclonal protein. It is possible that we are seeing progression of diabetic kidney disease towards ESRD. Unfortunately, biopsy could not be done because of patient's respiratory status and anxiety. Patient had cardiac catheterization 09/28: Significant diffuse two-vessel disease.? Echo: EF 35% with stage III diastolic dysfunction and pulmonary hypertension - patient has PEG. - Blood pressures acceptable - Continue dialysis Wednesday, Wednesday, Wednesday. He is likely nearing an EDW of around 69 to 70 kg (bed weight). - Has been denied for [facility]. Likely will go to a shelter with dialysis. If no signs of renal recovery in the next 1 to 2 months, will plan for a kidney biopsy.
--- NOTE | 2022-10-16 11:37 | CASEMGMT ---
ISABEL CAMARA called and updated Darnell at [facility] that patient is anticipated to DC over the weekend to SNF. Anticipate that patient will start HD at [facility] on Wednesday. Schedule is for MWF at 0745 with first session arrival at 0700. ISABEL CAMARA updated HUSSEIN Piña.
--- NOTE | 2022-10-16 11:54 | DIALYSIS ---
Hemodialysis x3.5hrs today. Pt tolerated tx. UF -500mL removed. Pt stable Report to ISABEL Greco
[2022-10-16] MEDS: Insulin Glargine-YFGN 100 UNIT/ML Pen 20 UNIT SC (12:12)
[2022-10-16] MEDS: Polyethylene Glycol 3350 17 GM PACKET PO ×2 (12:15→23:35)
[2022-10-16] MEDS: Clopidogrel Bisulfate 75 MG Tablet PO (12:15)
[2022-10-16] MEDS: Dorzolamide HCL/Timolol 10 ml Bottle 1 DRP OPHTHALMIC ×2 (12:15→23:36)
[2022-10-16] MEDS: Carvedilol 25 MG Tablet GT ×2 (12:15→23:36)
[2022-10-16] MEDS: Isosorbide DN 10 MG Tablet 5 MG PO ×2 (12:15→23:35)
[2022-10-16] MEDS: Aspirin E.C. 81 MG Tablet PO (12:15)
[2022-10-16] MEDS: Fluconazole Suspension 40 MG/ML 35 ML Bottle 100 MG GT (12:16)
[2022-10-16] MEDS: Menthol/Lanolin/Calamine/Znox 113 GM Tube 1 APPLIC TOPICAL (12:16)
[2022-10-16] MEDS: amLODIPine 5 MG Tablet PO (12:17)
[2022-10-16 13:06] LABS: Bedside Glucose 237 mg/dL (74-106)
[2022-10-16] MEDS: Vital AF 1.2 Cal Liquid 1,000 ML 60 ML GT (17:07)
[2022-10-16 17:55] LABS: Bedside Glucose 225 mg/dL (74-106)
--- NOTE | 2022-10-16 23:15 | CPS ---
Pt Refused BiPAP
[2022-10-16] MEDS: Latanoprost 0.005% 1 Bottle 1 DRP OPHTHALMIC (23:35)
[2022-10-16] MEDS: Atorvastatin Calcium 40 MG Tablet GT (23:36)
[2022-10-16] MEDS: hydrALAZINE 50 MG Tablet GT (23:36)
[2022-10-17] VITALS (9 sets, daily range): BP systolic 121–168; BP diastolic 50–85; PULSE 79–95; RESP 16–18; TEMP 36.6–37; O2SAT 95–97
[2022-10-17] MEDS: Insulin Lispro 100 UNIT/ML INSULN.PEN SC ×5 (00:11→23:41)
[2022-10-17 00:41] LABS: Bedside Glucose 143 mg/dL (74-106)
[2022-10-17 00:42] LABS: Bedside Glucose 266 mg/dL (74-106)
[2022-10-17] MEDS: Heparin Injection (Vial) 5,000 UNIT/ML VIAL 5000 UNIT SC ×3 (05:02→23:08)
[2022-10-17] MEDS: Metoclopramide 10 MG/2 ML Vial IV ×4 (05:02→23:08)
[2022-10-17] MEDS: hydrALAZINE 50 MG Tablet GT ×3 (05:02→23:09)
[2022-10-17] MEDS: Ondansetron 4 MG/2 ML Vial IV ×4 (05:08→23:08)
[2022-10-17] MEDS: 0.9% Saline Lock 10 ML Syringe IV ×2 (05:08→09:44)
[2022-10-17 07:01] LABS: Bedside Glucose 383 mg/dL (74-106)
[2022-10-17 07:41] LABS: Absolute Lymphocyte Count 0.98 X10^3/uL (0.83-4.51); Absolute Neutrophil Count 8.9 X10^3/uL (2.0-7.7); Basophil# 0.11 X10^3/uL; Eosinophil# 0.33 X10^3/uL; Eosinophils% 2.9 % (0-5); Hematocrit 25.9 % (40-54); Hemoglobin 8.1 g/dL (13.0-16.5); Lymphocyte # 0.98 X10^3/ul (0.83-4.51); Lymphocyte % 8.6 % (19-41); Mean Corp Hgb Conc 31.3 g/dL (32-36); Mean Corpuscular Hgb 29.7 pg (27.0-32.0); Mean Corpuscular Volume 94.9 fL (80-94); Mean Platelet Vol. 11.1 fl (6.2-12.0); Monocyte# 0.95 X10^3/uL; Monocyte% 8.3 % (0-10); NRBC Flagged by Analyzer 0 % (0-5); Neutrophil # 8.92 X10^3/uL (2.7-7.7); Neutrophil % 78.2 % (47-70); Platelet Count 374 K/mm3 (150-450); RBC Distribution Width CV 12.6 % (11.6-14.6); RBC Distribution Width SD 43.5 fl (35.1-43.9); Red Blood Count 2.73 M/mm3 (4.6-6.2); White Blood Count 11.4 K/mm3 (4.4-11.0)
[2022-10-17 07:46] LABS: Anion Gap 12 (5-15); BUN 36 mg/dL (7-18); BUN/Creat Ratio 7.9 RATIO (10-20); Calcium,Total 7.9 mg/dL (8.5-10.1); Chloride 95 mmol/L (98-107); Creatinine, Serum 4.55 mg/dL (0.70-1.30); EST Glomerular Filtration Rate 14 mL/min (>60); Est Glom Filt Rate - Afr Amer 17 mL/min (>60); Estimated Creatinine Clearance 17.47 ml/min; Glucose 428 mg/dL (74-106); Sodium Level 131 mmol/L (136-145)
[2022-10-17] MEDS: Vital AF 1.2 Cal Liquid 1,000 ML 60 ML GT (08:41)
--- NOTE | 2022-10-17 08:47 | PCM.PN.HOSP ---
Subjective Subjective Tolerating tube feeds. Objective Data Objective Data Vital Signs: Vital Signs Temp Pulse Resp BP Pulse Ox O2 Del Method O2 Flow Rate 36.6 C 79 18 121/50 H 95 Nasal Cannula 3 10/17/22 05:00 10/17/22 05:02 10/17/22 05:00 10/17/22 05:02 10/17/22 05:00 10/17/22 05:22 10/17/22 05:22 FiO2 3 10/13/22 22:43 Oxygen Flow Rate (L/min) 3 Oxygen Delivery Method Nasal Cannula Weight: 69.8 kg Body Mass Index (BMI) 25.8 Intake & Output: Intake and Output for Last 24 Hours 10/15/22 10/16/22 10/17/22 23:59 23:59 23:59 Intake Total 2298.33 / 2298.33 1563.17 / 1563.17 Output Total 200 / 200 115 / 115 30 / 30 Balance 2098.33 / 2098.33 1448.17 / 1448.17 -30 / -30 Medical Nutrition Assessment Dietitian: Malnutrition Criteria Met Start: 10/12/22 13:19 Freq: Status: Active Protocol: Document 10/15/22 14:21 AG (Rec: 10/15/22 14:22 AG [id number]) Nutrition Malnutrition Evidence of Malnutrition Exists Yes Malnutrition (severe): Acute Illness/Injury Evidenced By Suboptimal Energy Intake ( Severe),Weight Loss (Severe) Intake Problem Inadequate Oral Intake Etiology related to dysphagia Signs/Symptoms as evidenced by NPO status Status Active Problem Clinical Problem Altered GI Function Etiology related to possible delayed gastric emptying Signs/Symptoms as evidenced by emesis of enteral nutrition Status Active Problem Acute Disease or Injury Related Malnutrition Etiology Severe protein-calorie malnutrition in the context of acute illness related to inadequate oral intake/ dysphagia Signs/Symptoms as evidenced by 11% wt loss in less than 1 month, NPO, need for TF and TF meeting less than 50% estimated nutrition needs Status Active Problem Altered Nutrient-Related Laboratory Values Etiology related to diabetes Signs/Symptoms as evidenced by glucose 332 Status Resolved Problem Recommendation Dietitian Recommendations/Changes 1) NPO per CASHIER SUPERVISOR. 2) Continue Vital AF 1.2 as tolerated; goal rate of 60mL/ hour w/ 50mL H2O flush every 4 hours to provide 1728 calories, 108 g protein, and 1467mL total fluid/day. Started at 20mL/hour and increasing by 10mL/hour every 12 hours as tolerated until goal rate is achieved. 3) Continue daily wts. Lab / Micro Data Result Diagrams: 10/17/22 05:30 10/17/22 12:15 Labs: Laboratory Results - last 24 hr 10/16/22 12:10: POC Glucose 237 H 10/16/22 17:06: POC Glucose 225 H 10/16/22 20:14: POC Glucose 143 H 10/17/22 00:08: POC Glucose 266 H 10/17/22 05:30: WBC 11.4 H, RBC 2.73 L, Hgb 8.1 L, Hct 25.9 L, MCV 94.9 H, MCH 29.7, MCHC 31.3 L, RDW Std Deviation 43.5, RDW Coeff of Jenifer 12.6, Plt Count 374, MPV 11.1, Immature Gran % (Auto) 1.000 H, Neut % (Auto) 78.2 H, Lymph % (Auto) 8.6 L, Mcdonald % (Auto) 8.3, Eos % (Auto) 2.9, Baso % (Auto) 1.0, Absolute Neuts (auto) 8.9 H, Absolute Lymphs (auto) 0.98, Nucleated RBC % 0 10/17/22 05:30: Sodium 131 L, Potassium 4.0, Chloride 95 L, Carbon Dioxide 24.0, Anion Gap 12, BUN 36 H, Creatinine 4.55 H, Estim Creat Clear Calc 17.47, Est GFR (MDRD) Af Amer 17 L, Est GFR (MDRD) Non-Af 14 L, BUN/Creatinine Ratio 7.9 L, Glucose 428 H, Calcium 7.9 L 10/17/22 06:02: POC Glucose 383 H Micro: Microbiology 10/06/22 09:30 Blood Culture (Wb) - Anticubital Left Blood Culture - Final No growth in 5 days. 10/06/22 09:00 Blood Culture (Wb) - Anticubital Right Blood Culture - Final No growth in 5 days. 10/06/22 15:10 Sputum, Induced/Lukens Gram Stain - Final 10/06/22 15:10 Sputum, Induced/Lukens Respiratory Culture - Final Staphylococcus haemolyticus 10/06/22 09:00 Urine Catheter - Lopez Urine Culture - Final Culture exhibits no growth. 10/06/22 09:00 Mucosa - Nasopharyngeal Respiratory Panel (PCR) - Final 10/06/22 09:00 Nasal Secretion SARS-CoV-2 & FLU Antigen (Rapid) - Final 09/23/22 07:34 Sputum, Tracheal Aspirate Gram Stain - Final 09/23/22 07:34 Sputum, Tracheal Aspirate Respiratory Culture - Final Staphylococcus aureus 09/22/22 07:20 Sputum, Induced/Lukens Gram Stain - Final 09/22/22 07:20 Sputum, Induced/Lukens Respiratory Culture - Final Mixed normal respiratory amparo. No Streptococcus pneumoniae, beta-hemolytic Streptococcus or Staphylococcus aureus isolated. 09/17/22 15:45 Urine, Clean Catch Urine Culture - Final Culture exhibits no growth. 09/16/22 07:05 Nasal Secretion SARS-CoV-2 & FLU Antigen (Rapid) - Final Physical Exam Const alert and no apparent distress Constitutional Narrative: Deaf. Awake. Resp normal respiratory effort, no retractions, no use of accessory muscles and clear to auscultation bilaterally Cardio regular rate, regular rhythm, S1 normal heart sound and S2 normal heart sound GI normal to inspection, nondistended, normoactive bowel sounds, soft to palpation, non-tender and non-distended Assessment & Plan Assessment/Plan (1) Non-ST elevated myocardial infarction (non-STEMI): PLAN: Had cardiac cath this admission which showed diffusely diseased 2 vessels with LV systolic dysfunction with an LV gram EF of 40%. It was recommended tertiary care transfer referral for targeted PCI after he is stabilized. 09/30 attempted to transfer but they were not excepting transfers at this time. Previous hospitalist discussed with cardiology and it was agreed that he could continue medical management with outpatient follow-up with cardiac surgeon. Coreg, aspirin, atorvastatin, Lasix Cardiology following (2) Acute renal failure: PLAN: No improvement. Does have some urine output, but likely HD-dependent. 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 Continue glargine 20, lispro 3 Q6h and SSI. Advance as he tolerates tube feeds. Blood sugar steadily going up as he is tolerating more tube feeds. Increase glargine to 20 twice daily. Discontinued scheduled log but continue with sliding scale insulin. (4) Congenital deafness: PLAN: Complicates care and recovery. Initially it was thought that the patient could read lips and right but he just nods his head in agreement when he clearly does not understand what is actually being said to him or written to him. Patient can only communicate through sign language effectively. On the third, I had an tenter frame operator speak with the patient and the tenter frame operator had difficulty understanding the patient as well despite being on to see clearly what he was doing with his hands. Patient was mentioning something about perhaps and he kept on repeating that to the director report. The director report understood that he was meaning wraps but the context was not understood by the tenter frame operator nor myself with patient was trying to say. Discussion with the patient's stepson states that the patient is not mentally impaired but had very poor education growing up. So not are we dealing with the patient being deaf, not be able to read lips nor text, the patient is under educated even with people that can utilize Chinese sign language. (5) Acute respiratory failure with hypoxia: PLAN: Resolved Was intubated in the ICU and has since been extubated Secondary to CHF (6) Cardiomyopathy: QUALIFIERS: Cardiomyopathy type: ischemic Qualified Code(s): I25.5 - Ischemic cardiomyopathy PLAN: Ischemic EF 35%. Moderate to severe global hypokinesis of the LV. Mild to moderate mitral valve insufficiency. Pulmonary artery systolic pressure of 40 mmHg On Coreg Cannot tolerate ANIA/ARB due to kidney function (7) Pneumonia: QUALIFIERS: Laterality: unspecified laterality Lung location: unspecified part of lung Pneumonia type: due to unspecified organism Qualified Code(s): J18.9 - Pneumonia, unspecified organism PLAN: Stap: Cultures pending, on Vanco and Zosyn, O2 sat 99%, tachypnea improving. Is leukopenic today, will monitor may need to repeat to verify. 10/08: So far cultures are no growth to date and seems to be improving. May have been that this was aspiration pneumonia versus pneumonitis though Pro-José was elevated at 1.6. Continue antibiotics at this time and recheck Pro-José in the morning. Leukopenia slightly improved, does have elevated eosinophil count, will monitor differential 10/09: Leukopenia improved 10/10: Fever has improved, sputum growing staph hemolyticus which is sensitive to vancomycin. Will stop Zosyn. Has been on antibiotics since 10/06. 10/13: DC abx as he has completed 7 days of abx. (8) Regurgitation of food: PLAN: #Regurgitation of tube feeds Have tried continuous and bolus feeds with various levels of success They have been on hold today, he is on Reglan and with his kidney function he is on the max dose of Reglan, per report has been having stool output. Will need to continue to adjust regimen to improve tolerance TPN would not be a good long-term option. 10/11/: TF were held yesterday, doing well today, denying any abdominal pain or nausea, reportedly had bowel movement overnight. We will schedule Zofran, restart tube feeds 4 times a day with smaller amount, on Reglan, scheduled MiraLAX in the event that there is a component of poor transit. May need to consider GI input or surgery for jejunal feedings if absolutely unable to tolerate PEG tube to maintain nutrition Gastric emptying study cannot be performed as pt has a PEG tube. Recheck abd xray showed no ileus or bowel obstruction. 10/13: Discussed with Dr. Chung, who recommends CT with contrast. CT showed no obstruction. He was unsure of a J-tube would be of benefit for the patient and recommended instead of the bolus feedings that we try utilizing continuous tube feeds. So we started the patient back on his Nepro at 10 cc/h. The patient does seem to tolerate that that may need to consider different formula. 10/14: Patient had been on Nepro 10 cc/h. Discussed with nutrition and patient had been vomiting at 45 cc/h continuous with Nepro before. We will try vital at 20 cc/h today and if he tolerates that then will increase to 30 tomorrow. Additionally, we will decrease his flushes from 120 to 60 cc. 10/15: tube feeds increased to 30cc/h (9) Macrocytic anemia: PLAN: TSH has been normal Will check B12 and folate Iron has been low but his ferritin has been to 65 Hemoglobin 6.6 today. White count is low but his platelets seem to be around the same range so I do not feel that this is delusional today. We will transfuse 1 unit packed red blood cells. With the patient's CAD, would recommend a transfusion threshold of 8 PLAN: Plan Hypertension Continue to adjust antihypertensives, Coreg increased on 10/04 Nephrology recommended to hold hydralazine and Coreg on the mornings of dialysis, added instructions DVT ppx: heparin subcu 10/13: Spent an additional 30 minutes discussing with the patient's son-in-law who interpreted to the patient's who is also deaf. Expressed to them both that patient's limiting factor is his ongoing nausea and vomiting with tube feeds despite having the PEG tube. That eventually the plan would be for him to go to a residential facility. I told him there and I cannot guarantee that they would have the tenter frame operator readily available and he may spend much of his existence at the nursing facility not be able to communicate with anyone as patient cannot read, cannot read lips and speaks only in sign and as was evidenced today patient does not even signed very well and gets confused with speaking with someone who does use Chinese sign language. I did mention to them about hospice as a possibility down the road given that his quality of life will likely be very poor particularly since he cannot communicate with anyone other than people that sign. This son-in-law stated that they are not ready for that at this time. 10/15: Was going to grab the tenter frame operator iPad but then the family showed up. I spoke with the patient's stepson and just told him about the plan in regards to slowly increasing his tube feeds utilizing a different formulation. Thus far, he seems to be tolerating it at 30 cc/h. We will increase him to goal and once he is at goal if he can maintain that then we can look at discharging him to residential facility. [facility] as that facility is close by and they would be able to come by for an tenter frame operator is needed. Plan for discharge on the seventh the patient continues to tolerate his tube feeds. Charges/Coding Visit Charges Inpatient E&M: 66644 Subs Hosp L2
[2022-10-17] MEDS: Dorzolamide HCL/Timolol 10 ml Bottle 1 DRP OPHTHALMIC (09:04)
[2022-10-17] MEDS: Carvedilol 25 MG Tablet GT ×2 (09:14→23:09)
[2022-10-17] MEDS: Isosorbide DN 10 MG Tablet 5 MG PO ×2 (09:14→23:09)
[2022-10-17] MEDS: amLODIPine 5 MG Tablet PO (09:14)
[2022-10-17] MEDS: Polyethylene Glycol 3350 17 GM PACKET PO ×2 (09:14→23:08)
[2022-10-17] MEDS: Clopidogrel Bisulfate 75 MG Tablet PO (09:14)
[2022-10-17] MEDS: Furosemide 40 MG Tablet PO (09:14)
[2022-10-17] MEDS: Menthol/Lanolin/Calamine/Znox 113 GM Tube 1 APPLIC TOPICAL (09:15)
[2022-10-17] MEDS: Fluconazole Suspension 40 MG/ML 35 ML Bottle 100 MG GT (09:16)
[2022-10-17 12:40] LABS: Glucose 718 mg/dL (74-106)
[2022-10-17] MEDS: Insulin Lispro 100 UNIT/ML INSULN.PEN 15 UNIT SC (13:14)
--- NOTE | 2022-10-17 15:18 | CASEMGMT ---
Social Work SW checked in w/PCU SW, precert has not been attained. If precert is attained [facility] would call PCU directly. As of now, we have not heard that pt has precert. SW to follow up Wednesday. ROSENDO Hays
[2022-10-17 16:57] LABS: Glucose 605 mg/dL (74-106)
[2022-10-17] MEDS: Insulin Lispro 100 UNIT/ML INSULN.PEN 20 UNIT SC (17:49)
[2022-10-17] MEDS: Insulin Glargine-YFGN 100 UNIT/ML Pen 30 UNIT SC (17:50)
--- NOTE | 2022-10-17 18:36 | PN.RENAL_ITS ---
Subjective Subjective Following for dialysis dependent TREVOR on CKD. The patient has been tolerating dialysis well. There is no chest pain or shortness of breath. Objective Data Objective Data Vital Signs: Vital Signs Temp Pulse Resp BP Pulse Ox O2 Del Method O2 Flow Rate 98.6 F 94 16 134/85 H 95 Nasal Cannula 3 10/17/22 18:03 10/17/22 18:03 10/17/22 18:03 10/17/22 18:03 10/17/22 18:03 10/17/22 18:22 10/17/22 18:22 FiO2 3 10/13/22 22:43 Oxygen Flow Rate (L/min) 3 Oxygen Delivery Method Nasal Cannula Weight: 69.8 kg Body Mass Index (BMI) 25.8 Intake & Output: Intake and Output for Last 24 Hours 10/15/22 10/16/22 10/17/22 23:59 23:59 23:59 Intake Total 2298.33 / 2298.33 1563.17 / 1563.17 1044 / 1044 Output Total 200 / 200 115 / 115 30 / 30 Balance 2098.33 / 2098.33 1448.17 / 1448.17 1014 / 1014 Medical Nutrition Assessment Dietitian: Malnutrition Criteria Met Start: 10/12/22 13:1 9 Freq: Status: Active Protocol: Document 10/15/22 14:21 AG (Rec: 10/15/22 14:22 AG [id number]) Nutrition Malnutrition Evidence of Malnutrition Exists Yes Malnutrition (severe): Acute Illness/Injury Evidenced By Suboptimal Energy Intake ( Severe),Weight Loss (Severe) Intake Problem Inadequate Oral Intake Etiology related to dysphagia Signs/Symptoms as evidenced by NPO status Status Active Problem Clinical Problem Altered GI Function Etiology related to possible delayed gastric emptying Signs/Symptoms as evidenced by emesis of enteral nutrition Status Active Problem Acute Disease or Injury Related Malnutrition Etiology Severe protein-calorie malnutrition in the context of acute illness related to inadequate oral intake/ dysphagia Signs/Symptoms as evidenced by 11% wt loss in less than 1 month, NPO, need for TF and TF meeting less than 50% estimated nutrition needs Status Active Problem Altered Nutrient-Related Laboratory Values Etiology related to diabetes Signs/Symptoms as evidenced by glucose 332 Status Resolved Problem Recommendation Dietitian Recommendations/Changes 1) NPO per NUISANCE WILDLIFE TRAPPER. 2) Continue Vital AF 1.2 as tolerated; goal rate of 60mL/ hour w/ 50mL H2O flush every 4 hours to provide 1728 calories, 108 g protein, and 1467mL total fluid/day. Started at 20mL/hour and increasing by 10mL/hour every 12 hours as tolerated until goal rate is achieved. 3) Continue daily wts. Lab / Micro Data Result Diagrams: 10/17/22 05:30 10/17/22 15:25 Labs: Laboratory Results - last 24 hr 10/16/22 20:14: POC Glucose 143 H 10/17/22 00:08: POC Glucose 266 H 10/17/22 05:30: WBC 11.4 H, RBC 2.73 L, Hgb 8.1 L, Hct 25.9 L, MCV 94.9 H, MCH 29.7, MCHC 31.3 L, RDW Std Deviation 43.5, RDW Coeff of Jenifer 12.6, Plt Count 374, MPV 11.1, Immature Gran % (Auto) 1.000 H, Neut % (Auto) 78.2 H, Lymph % (Auto) 8.6 L, [place] % (Auto) 8.3, Eos % (Auto) 2.9, Baso % (Auto) 1.0, Absolute Neuts (auto) 8.9 H, Absolute Lymphs (auto) 0.98, Nucleated RBC % 0 10/17/22 05:30: Sodium 131 L, Potassium 4.0, Chloride 95 L, Carbon Dioxide 24.0, Anion Gap 12, BUN 36 H, Creatinine 4.55 H, Estim Creat Clear Calc 17.47, Est GFR (MDRD) Af Amer 17 L, Est GFR (MDRD) Non-Af 14 L, BUN/Creatinine Ratio 7.9 L, Glucose 428 H, Calcium 7.9 L 10/17/22 06:02: POC Glucose 383 H 10/17/22 12:15: Glucose 718 H* 10/17/22 15:25: Glucose 605 H* Micro: Microbiology 10/06/22 09:30 Blood Culture (Wb) - Anticubital Left Blood Culture - Final No growth in 5 days. 10/06/22 09:00 Blood Culture (Wb) - Anticubital Right Blood Culture - Final No growth in 5 days. 10/06/22 15:10 Sputum, Induced/Lukens Gram Stain - Final 10/06/22 15:10 Sputum, Induced/Lukens Respiratory Culture - Final Staphylococcus haemolyticus 10/06/22 09:00 Urine Catheter - Lopez Urine Culture - Final Culture exhibits no growth. 10/06/22 09:00 Mucosa - Nasopharyngeal Respiratory Panel (PCR) - Final 10/06/22 09:00 Nasal Secretion SARS-CoV-2 & FLU Antigen (Rapid) - Final 09/23/22 07:34 Sputum, Tracheal Aspirate Gram Stain - Final 09/23/22 07:34 Sputum, Tracheal Aspirate Respiratory Culture - Final Staphylococcus aureus 09/22/22 07:20 Sputum, Induced/Lukens Gram Stain - Final 09/22/22 07:20 Sputum, Induced/Lukens Respiratory Culture - Final Mixed normal respiratory amparo. No Streptococcus pneumoniae, beta-hemolytic Streptococcus or Staphylococcus aureus isolated. 09/17/22 15:45 Urine, Clean Catch Urine Culture - Final Culture exhibits no growth. 09/16/22 07:05 Nasal Secretion SARS-CoV-2 & FLU Antigen (Rapid) - Final Physical Exam Narrative Patient is resting comfortably S1-S2 regular Lung sounds clear anteriorly and posteriorly Abdomen soft, nontender. PEG intact No edema Tunneled HD catheter dressing clean, dry and intact Const alert, no apparent distress, average body habitus and healthy appearing Constitutional Narrative: Patient is deaf General Appearance: cooperative, comfortable and well developed Orientation / Consciousness: awake Exam Limitations: no limitations Nutritional Appearance: underweight HEENT normocephalic Eyes PERRL General Eye: normal appearance of both eyes Lymph Lymphatic: no lymphadenopathy noted Chest inspection of chest normal Resp normal respiratory effort, normal air movement, no retractions, no use of accessory muscles and clear to auscultation bilaterally Cardio regular rate, regular rhythm, S1 normal heart sound, S2 normal heart sound and no murmurs GI normal to inspection, nondistended, normoactive bowel sounds, non-tender and no masses Auscultation: normoactive bowel sounds Palpation: soft Bladder / Kidney Exam: catheter in place and bladder normal to palpation Extremity normal to inspection and no pedal edema Neuro Sensorium / Orientation: awake and alert Motor Exam: muscle tone normal throughout Psych cooperative Assessment & Plan Assessment/Plan (1) TREVOR (acute kidney injury): (2) CKD (chronic kidney disease): (3) Benign essential hypertension: (4) Type 1 diabetes: PLAN: Plan - Baseline renal function is unclear, but serum creatinine was 1.60 mg/dL in 2020. Suspect the patient has underlying diabetic kidney disease.? He is proteinuric in nephrotic range and has had longstanding, poorly controlled diabetes with retinopathy. Serologies including ANCA, C3, and C4 are negative.? Immunofixation is negative for monoclonal protein. It is possible that we are seeing progression of diabetic kidney disease towards ESRD. Unfortunately, biopsy could not be done because of patient's respiratory status and anxiety. Patient had cardiac catheterization 09/28: Significant diffuse two-vessel diseas e.? Echo: EF 35% with stage III diastolic dysfunction and pulmonary hypertension - patient has PEG. - Blood pressures acceptable - Continue dialysis Wednesday, Wednesday, Wednesday. -No need for dialysis today. Next dialysis will be scheduled for 10/19/2022. He is likely nearing an EDW of around 69 to 70 kg (bed weight). - Has been denied for [facility]. Likely will go to a nursing [facility] with dialysis. If no signs of renal recovery in the next 1 to 2 months, will plan for a kidney biopsy.
[2022-10-17 19:21] LABS: Bedside Glucose 462 mg/dL (74-106)
[2022-10-17 19:46] LABS: Bedside Glucose > 500 mg/dL (74-106)
[2022-10-17] MEDS: Latanoprost 0.005% 1 Bottle 1 DRP OPHTHALMIC (23:08)
[2022-10-17] MEDS: Atorvastatin Calcium 40 MG Tablet GT (23:09)
[2022-10-18] VITALS (9 sets, daily range): BP systolic 122–193; BP diastolic 59–115; PULSE 80–106; RESP 16–20; TEMP 36.4–36.8; O2SAT 2–98
[2022-10-18 00:41] LABS: Bedside Glucose 325 mg/dL (74-106)
[2022-10-18] MEDS: Vital AF 1.2 Cal Liquid 1,000 ML 60 ML GT ×2 (04:12→19:16)
[2022-10-18] MEDS: hydrALAZINE 50 MG Tablet GT ×3 (05:12→22:33)
[2022-10-18] MEDS: Heparin Injection (Vial) 5,000 UNIT/ML VIAL 5000 UNIT SC ×3 (05:12→22:34)
[2022-10-18] MEDS: Metoclopramide 10 MG/2 ML Vial IV (05:12)
[2022-10-18] MEDS: Ondansetron 4 MG/2 ML Vial IV ×3 (05:31→19:16)
[2022-10-18] MEDS: 0.9% Saline Lock 10 ML Syringe IV (05:33)
[2022-10-18] MEDS: Insulin Lispro 100 UNIT/ML INSULN.PEN SC ×3 (05:43→19:17)
[2022-10-18] MEDS: Insulin Glargine-YFGN 100 UNIT/ML Pen 30 UNIT SC ×2 (05:43→19:17)
[2022-10-18 06:55] LABS: Bedside Glucose 223 mg/dL (74-106)
--- NOTE | 2022-10-18 09:04 | PN.HOSP_ITS ---
Subjective Subjective No events overnight. Patient continues to tolerate tube feeds. Objective Data Objective Data Vital Signs: Vital Signs Temp Pulse Resp BP Pulse Ox O2 Del Method O2 Flow Rate 36.7 C 106 H 18 130/115 H 97 Nasal Cannula 2 10/18/22 05:00 10/18/22 05:12 10/18/22 05:00 10/18/22 05:12 10/18/22 05:00 10/18/22 08:44 10/18/22 08:44 FiO2 3 10/13/22 22:43 Oxygen Flow Rate (L/min) 2 Oxygen Delivery Method Nasal Cannula Weight: 70.3 kg Body Mass Index (BMI) 25.8 Intake & Output: Intake and Output for Last 24 Hours 10/16/22 10/17/22 10/18/22 23:59 23:59 23:59 Intake Total 1563.17 / 1563.17 1615 / 1615 2109 / 2110 Output Total 115 / 115 280 / 280 200 / 200 Balance 1448.17 / 1448.17 1335 / 1335 191 / 1910 Medical Nutrition Assessment Dietitian: Malnutrition Criteria Met Start: 10/12/22 13:19 Freq: Status: Active Protocol: Document 10/15/22 14:21 AG (Rec: 10/15/22 14:22 AG [id number]) Nutrition Malnutrition Evidence of Malnutrition Exists Yes Malnutrition (severe): Acute Illness/Injury Evidenced By Suboptimal Energy Intake ( Severe),Weight Loss (Severe) Intake Problem Inadequate Oral Intake Etiology related to dysphagia Signs/Symptoms as evidenced by NPO status Status Active Problem Clinical Problem Altered GI Function Etiology related to possible delayed gastric emptying Signs/Symptoms as evidenced by emesis of enteral nutrition Status Active Problem Acute Disease or Injury Related Malnutrition Etiology Severe protein-calorie malnutrition in the context of acute illness related to inadequate oral intake/ dysphagia Signs/Symptoms as evidenced by 11% wt loss in less than 1 month, NPO, need for TF and TF meeting less than 50% estimated nutrition needs Status Active Problem Altered Nutrient-Related Laboratory Values Etiology related to diabetes Signs/Symptoms as evidenced by glucose 332 Status Resolved Problem Recommendation Dietitian Recommendations/Changes 1) NPO per HUMAN RESOURCES EXECUTIVE ASSISTANT. 2) Continue Vital AF 1.2 as tolerated; goal rate of 60mL/ hour w/ 50mL H2O flush every 4 hours to provide 1728 calories, 108 g protein, and 1467mL total fluid/day. Started at 20mL/hour and increasing by 10mL/hour every 12 hours as tolerated until goal rate is achieved. 3) Continue daily wts. Lab / Micro Data Result Diagrams: 10/17/22 05:30 10/17/22 15:25 Labs: Laboratory Results - last 24 hr 10/17/22 12:15: Glucose 718 H* 10/17/22 14:27: POC Glucose > 500 H* 10/17/22 15:25: Glucose 605 H* 10/17/22 19:02: POC Glucose 462 H* 10/17/22 23:40: POC Glucose 325 H 10/18/22 05:42: POC Glucose 223 H Micro: Microbiology 10/06/22 09:30 Blood Culture (Wb) - Anticubital Left Blood Culture - Final No growth in 5 days. 10/06/22 09:00 Blood Culture (Wb) - Anticubital Right Blood Culture - Final No growth in 5 days. 10/06/22 15:10 Sputum, Induced/Lukens Gram Stain - Final 10/06/22 15:10 Sputum, Induced/Lukens Respiratory Culture - Final Staphylococcus haemolyticus 10/06/22 09:00 Urine Catheter - Lopez Urine Culture - Final Culture exhibits no growth. 10/06/22 09:00 Mucosa - Nasopharyngeal Respiratory Panel (PCR) - Final 10/06/22 09:00 Nasal Secretion SARS-CoV-2 & FLU Antigen (Rapid) - Final 09/23/22 07:34 Sputum, Tracheal Aspirate Gram Stain - Final 09/23/22 07:34 Sputum, Tracheal Aspirate Respiratory Culture - Final Staphylococcus aureus 09/22/22 07:20 Sputum, Induced/Lukens Gram Stain - Final 09/22/22 07:20 Sputum, Induced/Lukens Respiratory Culture - Final Mixed normal respiratory amparo. No Streptococcus pneumoniae, beta-hemolytic Streptococcus or Staphylococcus aureus isolated. 09/17/22 15:45 Urine, Clean Catch Urine Culture - Final Culture exhibits no growth. 09/16/22 07:05 Nasal Secretion SARS-CoV-2 & FLU Antigen (Rapid) - Final Physical Exam Const alert Resp normal respiratory effort, no retractions and no use of accessory muscles Cardio regular rate, regular rhythm, S1 normal heart sound and S2 normal heart sound GI normal to inspection, nondistended, normoactive bowel sounds, soft to palpation and non-tender Assessment & Plan Assessment/Plan (1) Non-ST elevated myocardial infarction (non-STEMI): PLAN: Had cardiac cath this admission which showed diffusely diseased 2 vessels with LV systolic dysfunction with an LV gram EF of 40%. It was recommended tertiary care transfer referral for targeted PCI after he is stabilized. 09/30 attempted to transfer but they were not excepting transfers at this time. Previous hospitalist discussed with cardiology and it was agreed that he could continue medical management with outpatient follow-up with cardiac surgeon. Coreg, aspirin, atorvastatin, Lasix Cardiology following (2) Acute renal failure: PLAN: No improvement. Does have some urine output, but likely HD-dependent. 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 Continue glargine 20, lispro 3 Q6h and SSI. Advance as he tolerates tube feeds. Blood sugar steadily going up as he is tolerating more tube feeds. Discontinued scheduled log but continue with sliding scale insulin. Glargine now at 30 BID. Continue to monitor. Patient had been on Nepro tube feeds but is unclear if he was not tolerating that as he was vomiting with the infusion also bolus feedings. Patient was changed over to Vital which may be making his blood sugar overall more difficult to control. Monitor sugar closely patient has to either be taken off of his tube feeds or switch to another formulation. (4) Congenital deafness: PLAN: Complicates care and recovery. Initially it was thought that the patient could read lips and right but he just nods his head in agreement when he clearly does not understand what is actually being said to him or written to him. Patient can only communicate through sign language effectively. On the third, I had an development technologist speak with the patient and the development technologist had difficulty understanding the patient as well despite being on to see clearly what he was doing with his hands. Patient was mentioning something about perhaps and he kept on repeating that to the assembler crimper. The assembler crimper understood that he was meaning wraps but the context was not understood by the development technologist nor myself with patient was trying to say. Discussion with the patient's stepson states that the patient is not mentally impaired but had very poor education growing up. So not are we dealing with the patient being deaf, not be able to read lips nor text, the patient is under educated even with people that can utilize Maltese sign language. (5) Acute respiratory failure with hypoxia: PLAN: Resolved Was intubated in the ICU and has since been extubated Secondary to CHF (6) Cardiomyopathy: QUALIFIERS: Cardiomyopathy type: ischemic Qualified Code(s): I25.5 - Ischemic cardiomyopathy PLAN: Ischemic EF 35%. Moderate to severe global hypokinesis of the LV. Mild to moderate mitral valve insufficiency. Pulmonary artery systolic pressure of 40 mmHg On Coreg Cannot tolerate ANIA/ARB due to kidney function (7) Pneumonia: QUALIFIERS: Laterality: unspecified laterality Lung location: unspecified part of lung Pneumonia type: due to unspecified organism Qualified Code(s): J18.9 - Pneumonia, unspecified organism PLAN: Staph112/08: Cultures pending, on Vanco and Zosyn, O2 sat 99%, tachypnea improving. Is leukopenic today, will monitor may need to repeat to verify. 10/08: So far cultures are no growth to date and seems to be improving. May have been that this was aspiration pneumonia versus pneumonitis though Pro-José was elevated at 1.6. Continue antibiotics at this time and recheck Pro-José in the morning. Leukopenia slightly improved, does have elevated eosinophil count, will monitor differential 10/09: Leukopenia improved 10/10: Fever has improved, sputum growing staph hemolyticus which is sensitive to vancomycin. Will stop Zosyn. Has been on antibiotics since 10/06. 10/13: DC abx as he has completed 7 days of abx. (8) Regurgitation of food: PLAN: Regurgitation of tube feeds Have tried continuous and bolus feeds with various levels of success They have been on hold today, he is on Reglan and with his kidney function he is on the max dose of Reglan, per report has been having stool output. Will need to continue to adjust regimen to improve tolerance TPN would not be a good long-term option. 10/11/: TF were held yesterday, doing well today, denying any abdominal pain or nausea, reportedly had bowel movement overnight. We will schedule Zofran, restart tube feeds 4 times a day with smaller amount, on Reglan, scheduled MiraLAX in the event that there is a component of poor transit. May need to consider GI input or surgery for jejunal feedings if absolutely unable to tolerate PEG tube to maintain nutrition Gastric emptying study cannot be performed as pt has a PEG tube. Recheck abd xray showed no ileus or bowel obstruction. 10/13: Discussed with Dr. Chung, who recommends CT with contrast. CT showed no obstruction. He was unsure of a J-tube would be of benefit for the patient and recommended instead of the bolus feedings that we try utilizing continuous tube feeds. So we started the patient back on his Nepro at 10 cc/h. The patient does seem to tolerate that that may need to consider different formula. 10/14: Patient had been on Nepro 10 cc/h. Discussed with nutrition and patient had been vomiting at 45 cc/h continuous with Nepro before. We will try vital at 20 cc/h today and if he tolerates that then will increase to 30 tomorrow. Additionally, we will decrease his flushes from 120 to 60 cc. 10/15: tube feeds increased to 30cc/h 10/17: DC IV Protonix and IV metoclopramide as patient peers to be tolerating tube feeds. Patient is tolerating his tube feeds, Vital Af 1.2, at 60cc/h (9) Macrocytic anemia: PLAN: TSH has been normal Will check B12 and folate Iron has been low but his ferritin has been to 65 Hemoglobin 6.6 today. White count is low but his platelets seem to be around the same range so I do not feel that this is delusional today. We will transfuse 1 unit packed red blood cells. With the patient's CAD, would recommend a transfusion threshold of 8 PLAN: Plan Hypertension Continue to adjust antihypertensives, Coreg increased on 10/04 Nephrology recommended to hold hydralazine and Coreg on the mornings of dialysis, added instructions DVT ppx: heparin subcu 10/13: Spent an additional 30 minutes discussing with the patient's son-in-law who interpreted to the patient's who is also deaf. Expressed to them both that patient's limiting factor is his ongoing nausea and vomiting with tube feeds despite having the PEG tube. That eventually the plan would be for him to go to a penitentiary facility. I told him there and I cannot guarantee that they would have the development technologist readily available and he may spend much of his existence at the nursing facility not be able to communicate with anyone as patient cannot read, cannot read lips and speaks only in sign and as was evidenced today patient does not even signed very well and gets confused with speaking with someone who does use Maltese sign language. I did mention to them about hospice as a possibility down the road given that his quality of life will likely be very poor particularly since he cannot communicate with anyone other than people that sign. This son-in-law stated that they are not ready for that at this time. 10/15: Was going to grab the development technologist iPad but then the family showed up. I spoke with the patient's stepson and just told him about the plan in regards to slowly increasing his tube feeds utilizing a different formulation. Thus far, he seems to be tolerating it at 30 cc/h. We will increase him to goal and once he is at goal if he can maintain that then we can look at discharging him to penitentiary facility. They are most interested in the avenues as that facility is close by and they would be able to come by for an development technologist is needed. Discharge pending insurance approval. Charges/Coding Visit Charges Inpatient E&M: 20752 Subs Hosp L2
[2022-10-18] MEDS: Menthol/Lanolin/Calamine/Znox 113 GM Tube 1 APPLIC TOPICAL ×2 (09:56→22:34)
[2022-10-18] MEDS: Carvedilol 25 MG Tablet GT ×2 (09:57→22:34)
[2022-10-18] MEDS: Isosorbide DN 10 MG Tablet 5 MG PO ×2 (09:58→22:33)
[2022-10-18] MEDS: Furosemide 40 MG Tablet PO (10:00)
[2022-10-18] MEDS: Clopidogrel Bisulfate 75 MG Tablet PO (10:00)
[2022-10-18] MEDS: amLODIPine 5 MG Tablet PO (10:00)
[2022-10-18] MEDS: Polyethylene Glycol 3350 17 GM PACKET PO ×2 (10:00→22:33)
[2022-10-18] MEDS: Fluconazole Suspension 40 MG/ML 35 ML Bottle 100 MG GT (10:07)
[2022-10-18 12:40] LABS: Bedside Glucose > 500 mg/dL (74-106)
[2022-10-18 12:40] LABS: Bedside Glucose > 500 mg/dL (74-106)
[2022-10-18] MEDS: Atorvastatin Calcium 40 MG Tablet GT (22:33)
[2022-10-18 23:20] LABS: Bedside Glucose 286 mg/dL (74-106)
[2022-10-18 23:20] LABS: Bedside Glucose 208 mg/dL (74-106)
[2022-10-19] VITALS (14 sets, daily range): BP systolic 119–162; BP diastolic 64–86; PULSE 85–118; RESP 18–20; TEMP 36.5–37.4; O2SAT 90–97
[2022-10-19] MEDS: Insulin Lispro 100 UNIT/ML INSULN.PEN SC ×3 (00:23→17:16)
[2022-10-19] MEDS: Ondansetron 4 MG/2 ML Vial IV ×4 (00:23→17:17)
[2022-10-19 01:05] LABS: Bedside Glucose 220 mg/dL (74-106)
[2022-10-19] MEDS: 0.9% Saline Lock 10 ML Syringe IV ×2 (05:26→13:00)
[2022-10-19] MEDS: Heparin Injection (Vial) 5,000 UNIT/ML VIAL 5000 UNIT SC ×3 (05:26→21:02)
[2022-10-19] MEDS: Insulin Glargine-YFGN 100 UNIT/ML Pen 30 UNIT SC ×2 (05:26→17:16)
[2022-10-19 06:24] LABS: Absolute Neutrophil Count 7.9 X10^3/uL (2.0-7.7); Basophil% 0.9 % (0-1); Eosinophil# 0.59 X10^3/uL; Eosinophils% 5.5 % (0-5); Hemoglobin 7.2 g/dL (13.0-16.5); Lymphocyte % 10.3 % (19-41); Mean Corp Hgb Conc 31.3 g/dL (32-36); Mean Corpuscular Hgb 29.4 pg (27.0-32.0); Mean Corpuscular Volume 93.9 fL (80-94); Monocyte# 0.96 X10^3/uL; Monocyte% 8.9 % (0-10); NRBC Flagged by Analyzer 0 % (0-5); Neutrophil # 7.86 X10^3/uL (2.7-7.7); Neutrophil % 73.3 % (47-70); Platelet Count 327 K/mm3 (150-450); RBC Distribution Width CV 12.9 % (11.6-14.6); RBC Distribution Width SD 43.9 fl (35.1-43.9); Red Blood Count 2.45 M/mm3 (4.6-6.2); White Blood Count 10.7 K/mm3 (4.4-11.0)
[2022-10-19 06:55] LABS: Bedside Glucose 247 mg/dL (74-106)
[2022-10-19 07:17] LABS: Anion Gap 15 (5-15); BUN 73 mg/dL (7-18); Calcium,Total 8.6 mg/dL (8.5-10.1); Chloride 96 mmol/L (98-107); Creatinine, Serum 7.32 mg/dL (0.70-1.30); EST Glomerular Filtration Rate 8 mL/min (>60); Est Glom Filt Rate - Afr Amer 10 mL/min (>60); Estimated Creatinine Clearance 10.88 ml/min; Glucose 258 mg/dL (74-106); Sodium Level 132 mmol/L (136-145)
--- NOTE | 2022-10-19 07:25 | PN.CARD_ITS ---
Subjective Subjective Patient seen and evaluated. Status quo ante from the cardiac standpoint. Objective Data Vital Signs: Vital Signs Temp Pulse Resp BP Pulse Ox O2 Del Method O2 Flow Rate 97.7 F L 85 18 144/65 H 97 Nasal Cannula 1 10/19/22 04:00 10/19/22 04:00 10/19/22 04:00 10/19/22 04:00 10/19/22 04:00 10/19/22 04:00 10/19/22 04:00 FiO2 3 10/13/22 22:43 Oxygen Flow Rate (L/min) 1 Oxygen Delivery Method Nasal Cannula Weight: 154 lb 1.65 oz Body Mass Index (BMI) 25.8 Intake & Output: Intake and Output for Last 24 Hours 10/17/22 10/18/22 10/19/22 23:59 23:59 23:59 Intake Total 1615 / 1615 3189 / 3339 210 / 210 Output Total 280 / 280 400 / 700 425 / 425 Balance 1335 / 1335 2789 / 2639 -215 / -215 Lab / Micro Data Result Diagrams: 10/19/22 05:23 10/19/22 05:23 Labs: Laboratory Results - last 24 hr 10/17/22 11:45: POC Glucose > 500 H* 10/17/22 11:47: POC Glucose > 500 H* 10/18/22 12:51: POC Glucose 208 H 10/18/22 19:15: POC Glucose 286 H 10/19/22 00:13: POC Glucose 220 H 10/19/22 05:23: WBC 10.7, RBC 2.45 L, Hgb 7.2 L, Hct 23.0 L, MCV 93.9, MCH 29.4, MCHC 31.3 L, RDW Std Deviation 43.9, RDW Coeff of Jenifer 12.9, Plt Count 327, MPV 11.0, Immature Gran % (Auto) 1.100 H, Neut % (Auto) 73.3 H, Lymph % (Auto) 10.3 L, Bonner % (Auto) 8.9, Eos % (Auto) 5.5 H, Baso % (Auto) 0.9, Absolute Neuts (auto) 7.9 H, Absolute Lymphs (auto) 1.10, Nucleated RBC % 0 10/19/22 05:23: Sodium 132 L, Potassium 4.0, Chloride 96 L, Carbon Dioxide 21.0, Anion Gap 15, BUN 73 H, Creatinine 7.32 H, Estim Creat Clear Calc 10.88, Est GFR (MDRD) Af Amer 10 L, Est GFR (MDRD) Non-Af 8 L, BUN/Creatinine Ratio 10.0, Glucose 258 H, Calcium 8.6 10/19/22 05:23: POC Glucose 247 H Cardiology Labs/Tests 10/19/22 05:23: WBC 10.7, RBC 2.45 L, Hgb 7.2 L, Hct 23.0 L, MCV 93.9, MCH 29.4, MCHC 31.3 L, Plt Count 327, MPV 11.0, Immature Gran % (Auto) 1.100 H, Neut % (Auto) 73.3 H, Lymph % (Auto) 10.3 L, Bonner % (Auto) 8.9, Eos % (Auto) 5.5 H, Baso % (Auto) 0.9, Absolute Neuts (auto) 7.9 H, Nucleated RBC % 0 10/19/22 05:23: Sodium 132 L, Potassium 4.0, Chloride 96 L, Carbon Dioxide 21.0, Anion Gap 15, BUN 73 H, Creatinine 7.32 H, Est GFR (MDRD) Af Amer 10 L, Est GFR (MDRD) Non-Af 8 L, BUN/Creatinine Ratio 10.0, Glucose 258 H, Calcium 8.6 Rhythm: EKG: ECHO: Stress Test: Cardiac Cath: PCI: CT Surgery: Holter monitor: EPS: PPM: CXR: Chest CT Scan: Physical Exam Const alert Resp normal respiratory effort, no retractions and no use of accessory muscles Cardio regular rate, regular rhythm, S1 normal heart sound and S2 normal heart sound GI normal to inspection, nondistended, normoactive bowel sounds, soft to palpation and non-tender Assessment & Plan Assessment/Plan (1) Non-ST elevated myocardial infarction (non-STEMI): PLAN: Patient presents with a non-ST elevation myocardial infarction. With his risk factors of hypertension as well as diabetes mellitus it is likely that he has premature coronary artery disease. His cardiac catheterization demonstrated the following: Calcified left main coronary artery. Mild disease in the left main coronary artery. Left anterior descending artery which is diffusely diseased but no high-grade focal stenosis noted. Left circumflex artery which is nondominant with a proximal 90% stenotic eccentric calcified lesion noted. Dominant right coronary artery which is calcified severely diseased with ostial 60% stenosis, proximal 80 to 90% stenosis mid 70% stenosis and diffuse distal disease involving the posterior descending artery and posterior lateral vessel. The left ventricular systolic function is reduced estimated at 40%. Based on the above angiographic findings it is felt that he is a high risk for PCI at this time. We will continue with aggressive medical therapy. After he is stabilized he may be considered for high risk PCI in a tertiary care facility. This may be done as an outpatient. At this time we will try and optimize his medical therapy. * Continue current medical therapy. * Will sign off from the cardiovascular standpoint for now (2) Hypertensive emergency: PLAN: Blood pressure appears to have improved on the current medical therapy. No additional measures will be undertaken. Thank you for allowing me to participate in the care of your patient. Please don't hesitate to call if any issues arise.
--- NOTE | 2022-10-19 08:50 | CASEMGMT ---
SW sent updates to [facility] via [facility]. Awaiting pre-cert. Plan: d/c to [facility] under skilled level of care pending pre-cert. June Piña SENIOR COMMUNICATIONS SPECIALIST [facility]
--- NOTE | 2022-10-19 09:16 | PN.RENAL_ITS ---
Subjective Subjective Following for dialysis dependent TREVOR on CKD. The patient was seen during hemodialysis treatment. He denies chest pain. There is still some coughing and shortness of breath. There is no edema subjectively. Objective Data Objective Data Vital Signs: Vital Signs Temp Pulse Resp BP Pulse Ox O2 Del Method O2 Flow Rate 97.7 F L 85 18 144/65 H 96 Nasal Cannula 2 10/19/22 04:00 10/19/22 04:00 10/19/22 04:00 10/19/22 04:00 10/19/22 07:55 10/19/22 07:55 10/19/22 07:55 FiO2 3 10/13/22 22:43 Oxygen Flow Rate (L/min) 2 Oxygen Delivery Method Nasal Cannula Weight: 69.9 kg Body Mass Index (BMI) 25.8 Intake & Output: Intake and Output for Last 24 Hours 10/17/22 10/18/22 10/19/22 23:59 23:59 23:59 Intake Total 1615 / 1615 3189 / 3339 210 / 210 Output Total 280 / 280 400 / 700 425 / 425 Balance 1335 / 1335 2789 / 2639 -215 / -215 Medical Nutrition Assessment Dietitian: Malnutrition Criteria Met Start: 10/12/22 13:19 Freq: Status: Active Protocol: Document 10/15/22 14:21 AG (Rec: 10/15/22 14:22 AG [id number]) Nutrition Malnutrition Evidence of Malnutrition Exists Yes Malnutrition (severe): Acute Illness/Injury Evidenced By Suboptimal Energy Intake ( Severe),Weight Loss (Severe) Intake Problem Inadequate Oral Intake Etiology related to dysphagia Signs/Symptoms as evidenced by NPO status Status Active Problem Clinical Problem Altered GI Function Etiology related to possible delayed gastric emptying Signs/Symptoms as evidenced by emesis of enteral nutrition Status Active Problem Acute Disease or Injury Related Malnutrition Etiology Severe protein-calorie malnutrition in the context of acute illness related to inadequate oral intake/ dysphagia Signs/Symptoms as evidenced by 11% wt loss in less than 1 month, NPO, need for TF and TF meeting less than 50% estimated nutrition needs Status Active Problem Altered Nutrient-Related Laboratory Values Etiology related to diabetes Signs/Symptoms as evidenced by glucose 332 Status Resolved Problem Recommendation Dietitian Recommendations/Changes 1) NPO per [employer]OX TRUCK W[employer]ER. 2) Continue Vital AF 1.2 as tolerated; goal rate of 60mL/ hour w/ 50mL H2O flush every 4 hours to provide 1728 calories, 108 g protein, and 1467mL total fluid/day. Started at 20mL/hour and increasing by 10mL/hour every 12 hours as tolerated until goal rate is achieved. 3) Continue daily wts. Lab / Micro Data Result Diagrams: 10/19/22 05:23 10/19/22 05:23 Labs: Laboratory Results - last 24 hr 10/17/22 11:45: POC Glucose > 500 H* 10/17/22 11:47: POC Glucose > 500 H* 10/18/22 12:51: POC Glucose 208 H 10/18/22 19:15: POC Glucose 286 H 10/19/22 00:13: POC Glucose 220 H 10/19/22 05:23: WBC 10.7, RBC 2.45 L, Hgb 7.2 L, Hct 23.0 L, MCV 93.9, MCH 29.4, MCHC 31.3 L, RDW Std Deviation 43.9, RDW Coeff of Jenifer 12.9, Plt Count 327, MPV 11.0, Immature Gran % (Auto) 1.100 H, Neut % (Auto) 73.3 H, Lymph % (Auto) 10.3 L, Mccone % (Auto) 8.9, Eos % (Auto) 5.5 H, Baso % (Auto) 0.9, Absolute Neuts (auto) 7.9 H, Absolute Lymphs (auto) 1.10, Nucleated RBC % 0 10/19/22 05:23: Sodium 132 L, Potassium 4.0, Chloride 96 L, Carbon Dioxide 21.0, Anion Gap 15, BUN 73 H, Creatinine 7.32 H, Estim Creat Clear Calc 10.88, Est GFR (MDRD) Af Amer 10 L, Est GFR (MDRD) Non-Af 8 L, BUN/Creatinine Ratio 10.0, Glucose 258 H, Calcium 8.6 10/19/22 05:23: POC Glucose 247 H Micro: Microbiology 10/06/22 09:30 Blood Culture (Wb) - Anticubital Left Blood Culture - Final No growth in 5 days. 10/06/22 09:00 Blood Culture (Wb) - Anticubital Right Blood Culture - Final No growth in 5 days. 10/06/22 15:10 Sputum, Induced/Lukens Gram Stain - Final 10/06/22 15:10 Sputum, Induced/Lukens Respiratory Culture - Final Staphylococcus haemolyticus 10/06/22 09:00 Urine Catheter - Lopez Urine Culture - Final Culture exhibits no growth. 10/06/22 09:00 Mucosa - Nasopharyngeal Respiratory Panel (PCR) - Final 10/06/22 09:00 Nasal Secretion SARS-CoV-2 & FLU Antigen (Rapid) - Final 09/23/22 07:34 Sputum, Tracheal Aspirate Gram Stain - Final 09/23/22 07:34 Sputum, Tracheal Aspirate Respiratory Culture - Final Staphylococcus aureus 09/22/22 07:20 Sputum, Induced/Lukens Gram Stain - Final 09/22/22 07:20 Sputum, Induced/Lukens Respiratory Culture - Final Mixed normal respiratory amparo. No Streptococcus pneumoniae, beta-hemolytic Streptococcus or Staphylococcus aureus isolated. 09/17/22 15:45 Urine, Clean Catch Urine Culture - Final Culture exhibits no growth. 09/16/22 07:05 Nasal Secretion SARS-CoV-2 & FLU Antigen (Rapid) - Final Physical Exam Narrative Patient is resting comfortably S1-S2 regular Expiratory wheeze on auscultation Abdomen soft, nontender. PEG intact No edema Tunneled HD catheter dressing clean, dry and intact Const alert, no apparent distress, average body habitus and healthy appearing Constitutional Narrative: Patient is deaf General Appearance: cooperative, comfortable and well developed Orientation / Consciousness: awake Exam Limitations: no limitations Nutritional Appearance: underweight HEENT normocephalic Eyes PERRL General Eye: normal appearance of both eyes Lymph Lymphatic: no lymphadenopathy noted Chest inspection of chest normal Resp normal respiratory effort, normal air movement, no retractions, no use of accessory muscles and clear to auscultation bilaterally Cardio regular rate, regular rhythm, S1 normal heart sound, S2 normal heart sound and no murmurs GI normal to inspection, nondistended, normoactive bowel sounds, non-tender and no masses Auscultation: normoactive bowel sounds Palpation: soft Bladder / Kidney Exam: catheter in place and bladder normal to palpation Extremity normal to inspection and no pedal edema Neuro Sensorium / Orientation: awake and alert Motor Exam: muscle tone normal throughout Psych cooperative Assessment & Plan Assessment/Plan (1) TREVOR (acute kidney injury): (2) CKD (chronic kidney disease): (3) Benign essential hypertension: (4) Type 1 diabetes: PLAN: Plan Impression/Plan: The patient is a 57-year-old man with past history of type 1 diabetes mellitus, congenital deafness, hypertension, hyperlipidemia, stroke, and GERD.? The patient was admitted to the hospital on 09/16/2022 with hypertensive urgency, dys pnea and NSTEMI.? The patient has had a progressive loss of renal function and is started on dialysis on 09/22/2022.? Nephrology is following for dialysis dependent TREVOR on CKD. Acute kidney injury on chronic kidney disease, unspecified stage. The patient was started on dialysis on 09/22/2022 because of refractory acute hypoxic respiratory failure due to volume overload, acidosis and severe azotemia. Baseline renal function is unclear although there is a notation that serum creatinine was 1.60 mg/dL in 2020.? The last available serum creatinine in [facility] was from 04/22/2014 at 1.3 mg/dL. Suspect the patient has underlying diabetic kidney disease.? He is proteinuric in nephrotic range and has had longstanding, poorly controlled diabetes with retinopathy. It is possible that we are seeing progression of diabetic kidney disease towards ESRD. So far, there is no evidence of renal recovery. The patient remains oliguric with increasing azotemia between dialysis. The plan is to pursue kidney biopsy if there is no recovery of renal function after 1 month on dialysis. This can be done as an outpatient. For now, we will continue dialysis on [facility] schedule. I supervised the dialysis procedure today: F160 dialyzer is used on 3.5-hour treatment.? 3K dialysate is used.? 400 mL/min blood flow, 600 dialysate flow.? We will try to remove 2 L with dialysis today. The patient is tolerating dialysis well so far. Metabolic acidosis. Serum bicarbonate level was as low as 13 mmol/L prior to start of dialysis.? Acidosis was due to renal failure. There has been no diarrhea. Serum bicarbonate level has improved and stabilized with hemodialysis. Will continue to follow serum bicarbonate levels. Hypertension. BP was as high as 207/124 on 09/16/2022. BP is now more reasonably controlled.? He is on hydralazine 50 mg 3 times daily, carvedilol 25 mg twice daily, and amlodipine 5 mg daily. We will continue to remove excess volume with dialysis/ultrafiltration. Anemia. Hemoglobin is low but stable at 7.2 g/dL today. We will start IV iron and INOCENCIO with dialysis at outpatient kidney center. Acute hypoxic respiratory failure. The patient initially required mechanical ventilator. He is now on 2 L nasal cannula oxygen. The patient has heart failure with reduced ejection fraction (EF is 40%). We will keep O>I with hemodialysis.? Plan on ultrafiltrating 2-3 L today. CAD with NSTEMI. Continuing medical therapy as per cardiology. He is on beta-gwyn and dual antiplatelet therapy. Nephrology plan will be discussed with Dr. Goode
--- NOTE | 2022-10-19 09:25 | CASEMGMT ---
Patient was approved to go to [place]. SW notified RN, physician, and elementary secretary. Plan: d/c to [place] under skilled level of care. June OLEA
[2022-10-19 12:25] LABS: Bedside Glucose 139 mg/dL (74-106)
[2022-10-19] MEDS: Menthol/Lanolin/Calamine/Znox 113 GM Tube 1 APPLIC TOPICAL ×2 (12:51→20:59)
[2022-10-19] MEDS: Clopidogrel Bisulfate 75 MG Tablet PO (12:52)
[2022-10-19] MEDS: amLODIPine 5 MG Tablet PO (12:52)
[2022-10-19] MEDS: Polyethylene Glycol 3350 17 GM PACKET PO ×2 (12:52→21:02)
[2022-10-19] MEDS: Fluconazole Suspension 40 MG/ML 35 ML Bottle 100 MG GT (12:53)
[2022-10-19] MEDS: Isosorbide DN 10 MG Tablet 5 MG PO ×2 (12:59→21:01)
[2022-10-19] MEDS: Vital AF 1.2 Cal Liquid 1,000 ML 60 ML GT (14:15)
--- NOTE | 2022-10-19 16:15 | TREXTCAR_ITS ---
Diet Diet Order/Speech Therapy: 10/13/22 17:03 Diet: Tube Feeding Is pt able to select menu?: No Diet Comments: Resume tube feeds/previous nutrition, off insulin drip Routine Orders/Code Status Suppository Type: Dulcolax 10mg O2 Liters per Minute: 2 O2 Frequency: PRN Keep PO Greater than or Equal to (%): 92 Routine Lab Work: CBC (4 days) and BMP (4 days) Code Status: Full Code Wound(s) left neck/chest: Wound Type: Surgical Incision right neck: Wound Type: Puncture Right groin: Wound Type: Puncture LUQ ABDOMEN: Wound Type: PEG TUBE INSERTION SITE bridge of nose: Wound Type: Pressure Injury right buttock: Wound Type: Abrasion Therapies Physical Therapy: Eval and Treat Occupational Therapy: Eval and Treat Speech Therapy: Eval and Treat Problem/Diagnosis (1) TREVOR (acute kidney injury): Status: Acute Code(s): N17.9 - Acute kidney failure, unspecified (2) CKD (chronic kidney disease): Status: Chronic Code(s): N18.9 - Chronic kidney disease, unspecified (3) Benign essential hypertension: Status: Chronic Code(s): I10 - Essential (primary) hypertension (4) Type 1 diabetes: Status: Acute Code(s): E10.9 - Type 1 diabetes mellitus without complications Plan #Regurgitation of tube feeds #Macrocytic anemia #Fever of unknown origin- resolved #DKA in the setting of 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 with long-term current use of insulin?resolved #DMI #TREVOR requiring dialysis #NSTEMI #Cardiomyopathy #Hypertension #Congenital deafness #Acute hypoxic respiratory failure resolved 57-year-old male with a history of congenital deafness and type 1 diabetes presented 09/16/2022 to [facility] with chest pain and shortness of breath for 1 day. He was a poor historian but family supplemented history and he had been in his normal state of health prior to that but then he had an event where he became hypoglycemic and fell. Blood sugar had been 36 and he received D5 and candy and blood sugar improved. He then represented and had pulmonary vascular congestion on chest x-ray with a glucose of 460 and a bicarb of 17, his creatinine was 8.76 and had an elevated troponin of 1211 and BNP of 1085. He had multiple medical problems broken down as below #NSTEMI, CAD, and cardiomyopathy, likely ischemic Initial troponins 1211, he was on heparin drip and had cardiac catheterization delayed due to his kidney function. Cardiac cath demonstrated diffuse diseased 2 vessels. Did show multivessel disease but given he was stable it was felt that this can be evaluated and treated as an outpatient. We will be very important that he follows with cardiology upon discharge and continues current medical management. He was also noted to have an EF of 35%, possibly ischemic, on medical management at this time. He was placed on Coreg, aspirin, statin, Lasix. Not on ANIA/ARB due to kidney function #Acute kidney injury Had no labs since February 2021 when his creatinine was 1.66, he ultimately required hemodialysis and does make urine but has remained dependent on hemodialysis at this time currently on Wednesday, Wednesday, Wednesday and this will need continued as an outpatient. He will need iron and INOCENCIO as an outpatient per nephrology recommendations. Ultimately he would benefit from a kidney biopsy but he had been unable to lay flat to tolerate this, can be coordinated upon discharge #Hypertensive emergency Treated for this and resolved #Type 1 diabetes mellitus Did go into DKA and required insulin drip more than 1 time, initially was under control but then had increasing shortness of breath and sputum production was found to have pneumonia around the time his glucose is significantly worsened and he was placed back on insulin drip. His glucose improved as his infection improved and he was transitioned back to subcu. Have also had difficulty managing his insulin due to difficulty tolerating tube feeds #Dysphagia Had PEG tube placed 10/01 Has had difficulty tolerating tube feeds intermittently and this has been adjusted between bolus and continuous Residuals have improved and he was taken off Reglan Will need to continue aspiration precautions and will need to follow with speech therapy to continue to improve and hopefully ultimately tolerate p.o. intake KUB had been checked several times and there was no ileus or obstruction Gastric emptying study cannot be performed due to PEG tube CT abdomen with contrast had been ordered and there was no obstruction seen. G- tube had been considered but did not seem to be additional benefit and he did begin to tolerate tube feeds #Congenital deafness Family members know why so, patient will write at times on paper but does have difficulty communicating without ASL #Acute hypoxic respiratory failure 2/2 fluid overload and pneumonia On 09/21 he required ICU consult and had acute hypoxemic respiratory failure which was deemed to be secondary to hypervolemia. Dialysis was started 09/22 but due to worsening respiratory status with new concern for additional aspiration pneumonia he ultimately had to be intubated and he was placed on antibiotics. Extubated 09/29. Finished course of antibiotics and did well however began to not tolerate tube feeds and had an episode where he vomited and appeared to aspirate, he was placed back on antibiotics and sputum culture was positive for staph hemolyticus, antibiotic course was complete and he was deemed to be respiratory stable #Macrocytic anemia No active bleeding noted Per nephrology May need outpatient INOCENCIO and iron infusion with dialysis Allergies/Procedures Done in Hospital Allergies No Known Allergies Allergy (Verified 09/15/22 10:39) Procedures: 2-D Echocardiogram, Cardiac catheterization, Dialysis, EGD, EKG, Intubation, Peg tube placement and - (peg tube placement, temp HD cath followed by tunneled cath) Type of Care/Length of Stay Estimated LOS: Convalescent Care Less Than 30 days Type of Care Needed: Skilled Rehab Potential: Fair Prognosis: Fair Additional Orders/Day of Discharge Day of Discharge: 10/19/22 Dietary and Speech Recommendations Dietitian Recommendations/Changes: 1) NPO per GEOSPATIAL EXTRACTOR ANALYSIS. 2) Continue Vital AF 1.2 as tolerated at goal rate of 60mL/hour w/ 50mL H2O flush every 4 hours to provide 1728 calories, 108 g protein, and 1467mL total fluid/day. 3) Continue daily wts. Discharge Plan Admission Admit Date/Time: 09/16/22 08:22 Attending Provider: Susu Goode Primary Care Provider: Marta Brooks Consulting Providers: Prabhjot Bliss ; Enzo Herrera ; Erik Olmstead ; Elvis Hampton ; Aristeo Chung ; Narinder Chaudhary ; Daneil Ibrahim ; Dashawn Solano ; Ana Lilia Weber LIGHT ARMORED VEHICLE OFFICER ; Eleazar Farrar ; Aries Truong ; Camelia Hauser ; Susu Goode Instructions Patient Instructions: Caring for Your Hemodialysis Access Additional Instructions / Restrictions: DISCHARGE INSTRUCTIONS PLEASE READ ?You will need to follow-up with nephrology and continue dialysis as an outpatient Wednesday, Wednesday, Wednesday. You will likely have IV iron and INOCENCIO added with dialysis, will defer to nephrology ?You may need a kidney biopsy upon discharge, this can be done as an outpatient. Please follow-up with nephrology upon discharge to coordinate this ?Hold Coreg and hydralazine on the mornings of dialysis ?Recommend a BMP and CBC in 3 to 5 days ?I will be important to follow-up with a cardiac surgeon, Dr. Linn, upon discharge for your coronary artery disease as you will need further intervention. Please call to schedule a follow-up appointment as soon as possible ?Continue to take aspirin 81 mg and Plavix as well as carvedilol ?Continue to take 40 mg of Lasix Wednesday, Wednesday, , Wednesday ?You will be taking hydralazine and amlodipine as well as isosorbide dinitrate ?You will need to continue taking fluconazole suspension for thrush for an additional 4 days ?NPO per GEOSPATIAL EXTRACTOR ANALYSIS. ?Continue Vital AF 1.2 as tolerated at goal rate of 60mL/hour w/ 50mL H2O flush every 4 hours to provide 1728 calories, 108 g protein, and 1467mL total fluid /day. ?Continue daily wts. ?Continue speech evaluation and treatment ?You will take 30 units of insulin glargine and continue to use sliding scale ?Recommend following up with your clinical nurse occupational medicine upon discharge ?Continue MiraLAX twice daily, has been getting Zofran scheduled, now that he is improving with tube feeds can consider making Zofran as needed -Please call your primary care provider's office upon discharge to schedule a hospital follow up within 1 week. -For any concerning signs or symptoms please call 911 or proceed to the nearest emergency department Discharge Orders/Prescriptions Prescriptions: New atorvastatin 40 mg Tablet 40 mg G-tube QHS Qty: 30 0RF aspirin 81 mg Tablet,Delayed Release (Dr/Ec) 81 mg PO BREAKFAST Qty: 60 0RF furosemide 40 mg Tablet 40 mg PO SuTuThSa Qty: 30 0RF carvedilol 25 mg Tablet 25 mg G-tube BID Qty: 0 0RF clopidogrel 75 mg Tablet 75 mg PO DAILY Qty: 30 0RF hydralazine 50 mg Tablet 50 mg G-tube TID Qty: 30 0RF fluconazole 40 mg/mL Suspension For Reconstitution 100 mg G-tube DAILY 4 Days Qty: 10 0RF insulin glargine-yfgn 100 unit/mL (3 mL) Insulin Pen 30 unit subcut 0600,1800 Qty: 0 0RF insulin lispro [Humalog KwikPen Insulin] 100 unit/mL Insulin Pen See Protocol subcut Q6 Qty: 0 0RF Protocol: 4. Sliding Scale Insulin High-Med Dosing Condition: 150-199 mg/dl = 2 units Condition: 200-259 mg/dl = 4 units Condition: 260-324 mg/dl = 6 units Condition: 325-374 mg/dl = 8 units Condition: 375-409 mg/dl = 10 units Condition: 410-449 mg/dl = 11 units Condition: Greater than 449 call physician Protocol Text: - Use for Total Daily Dose of Insulin 56-80 units - Patient who are insulin resistant or septic HIGH MEDIUM DOSING ALGORITHM isosorbide dinitrate 10 mg Tablet 5 mg PO BID Qty: 30 0RF polyethylene glycol 3350 17 gram Powder In Packet 17 g PO BID Qty: 100 0RF ondansetron 4 mg tablet,disintegrating 4 mg PO Q6H PRN (Reason: nausea and vomiting) Qty: 30 0RF Continued latanoprost 0.005 % drops 1 drp OPHTHALMIC DAILY dorzolamide-timolol (PF) 2-0.5 % dropperette 1 drp OPHTHALMIC BID omeprazole 20 mg capsule,delayed release(DR/EC) 20 mg PO DAILY amlodipine 5 mg tablet 5 mg PO DAILY Discontinued aspirin 325 mg tablet 325 mg PO DAILY losartan 50 mg tablet 50 mg PO BID Qty: 180 1RF simvastatin 80 mg tablet 80 mg PO QHS Qty: 30 0RF insulin aspart U-100 [Novolog FlexPen U-100 Insulin] 100 unit/mL (3 mL) insulin pen See Rx Instructions SC TID Qty: 30 3RF Rx Instructions: 38 with meals, 16 with snacks No Action (DME) pen needle, diabetic [Comfort EZ Pen [place]] 31 gauge x 5/16 needle See Rx Instructions .ROUTE .MEDSUPPLY Qty: 1,200 Rx Instructions: use to inject insulin 4 x qd (DME) blood sugar diagnostic [Accu-Chek Guide test strips] Strip See Rx Instructions .ROUTE .MEDSUPPLY Qty: 100 8RF Rx Instructions: test 3 times daily insulin degludec [Tresiba FlexTouch U-200] 200 unit/mL (3 mL) insulin pen 25 unit SC DAILY Referrals / Follow Up: Pranay Linn [Other] - See Referral Note (Please call the car thoracic surgeon's office upon discharge to schedule a follow-up) Elvis Hampton MD [Med Staff - Active Staff] - See Referral Note (Please follow-up with general cardiology upon discharge as well, you can call to schedule hospital follow-up appointment) Radha Landaverde MD [Med Staff - Consulting] - See Referral Note (You will need to continue dialysis Wednesday, Wednesday, Wednesday. It will be important for you to follow with nephrology however to coordinate your kidney biopsy. Please call upon discharge to schedule hospital follow-up) Marta Brooks, BEE-C [Primary Care Provider] - Disposition Disposition (needs filled in before D/C Order can be placed): [facility]
--- NOTE | 2022-10-19 16:55 | CASEMGMT ---
SW Note SW completed 7000 for patient. [facility] HUSSEIN called and updated Gaby Paulson RN that patient's 7000 is complete and patient can be transferred to SNF. Julianna FONSECA
--- NOTE | 2022-10-19 16:57 | DS.PCM_ITS ---
Providers Date of Admission: 09/16/22 Date of Discharge: 10/19/22 Primary Care Physician: ZELDA Virk Consultations 09/16/22 09:02 Consult: Cardiology Routine Consulting Provider: Elvis Hampton Reason for Consult: Chest Pain EMERGENT Consult: No MD Notified: Yes Date Notified: 09/16/22 Time Notified: 08:33 Method of Notification: Answering Service Consult: Nephrology Routine Consulting Provider: Aries Truong Reason for Consult: TREVOR EMERGENT Consult: No MD Notified: Yes Date Notified: 09/16/22 Time Notified: 08:35 Method of Notification: Verbal 09/18/22 10:20 Consult: Interventional Radiology Routine Consulting Provider: Eleazar Farrar Reason for Consult: TREVOR EMERGENT Consult: Yes MD Notified: Yes Date Notified: 09/18/22 Time Notified: 10:20 Method of Notification: Verbal 09/19/22 16:25 Consult: General Surgery Routine Consulting Provider: Camelia Hauser Reason for Consult: tunneled dialysis catheter EMERGENT Consult: No MD Notified: Yes Date Notified: 09/21/22 Time Notified: 06:54 Method of Notification: Text Comments:: can wait until Wednesday09/21/22 13:01 Consult: Spray Blender / Pulmonary Medicine Routine Consulting Provider: Pulmonary Medicine jenni Alpine Reason for Consult: Acute resp failure, TREVOR EMERGENT Consult: No Notified: Yes Date Notified: 09/21/22 Time Notified: 12:51 Method of Notification: Verbal 09/30/22 15:45 Consult: General Surgery Routine Consulting Provider: Aristeo Chung Reason for Consult: peg tube placement EMERGENT Consult: No MD Notified: Yes Date Notified: 09/30/22 Time Notified: 15:45 Method of Notification: Verbal 10/05/22 07:00 Consult: Spray Blender / Pulmonary Medicine Routine Consulting Provider: Erik Olmstead Reason for Consult: Hyperglycemia/DKA EMERGENT Consult: No MD Notified: Yes Date Notified: 10/05/22 Time Notified: 03:30 Method of Notification: Text Reason For Visit: ACUTE KIDNEY INJURY; NSTEMI Diagnosis Discharge Diagnosis (1) TREVOR (acute kidney injury): Status: Acute Code(s): N17.9 - Acute kidney failure, unspecified (2) CKD (chronic kidney disease): Status: Chronic Code(s): N18.9 - Chronic kidney disease, unspecified (3) Benign essential hypertension: Status: Chronic Code(s): I10 - Essential (primary) hypertension (4) Type 1 diabetes: Status: Acute Code(s): E10.9 - Type 1 diabetes mellitus without complications Plan #Regurgitation of tube feeds #Macrocytic anemia #Fever of unknown origin- resolved #DKA in the setting of 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 He was a poor historian but family supplemented history and he had been in his normal state of health prior to that but then he had an event where he became hypoglycemic and fell. Blood sugar had been 36 and he received D5 and candy and blood sugar improved. He then represented and had pulmonary vascular congestion on chest x-ray with a glucose of 460 and a bicarb of 17, his creatinine was 8.76 and had an elevated troponin of 1211 and BNP of 1085. He had multiple medical problems broken down as below #NSTEMI, CAD, and cardiomyopathy, likely ischemic Initial troponins 1211, he was on heparin drip and had cardiac catheterization delayed due to his kidney function. Cardiac cath demonstrated diffuse diseased 2 vessels. Did show multivessel disease but given he was stable it was felt that this can be evaluated and treated as an outpatient. We will be very important that he follows with cardiology upon discharge and continues current medical management. He was also noted to have an EF of 35%, possibly ischemic, on medical management at this time. He was placed on Coreg, aspirin, statin, Lasix. Not on ANIA/ARB due to kidney function #Acute kidney injury Had no labs since February 2021 when his creatinine was 1.66, he ultimately required hemodialysis and does make urine but has remained dependent on hemodialysis at this time currently on Wednesday, Wednesday, Wednesday and this will need continued as an outpatient. He will need iron and INOCENCIO as an outpatient per nephrology recommendations. Ultimately he would benefit from a kidney biopsy but he had been unable to lay flat to tolerate this, can be coordinated upon discharge #Hypertensive emergency Treated for this and resolved #Type 1 diabetes mellitus Did go into DKA and required insulin drip more than 1 time, initially was under control but then had increasing shortness of breath and sputum production was found to have pneumonia around the time his glucose is significantly worsened and he was placed back on insulin drip. His glucose improved as his infection improved and he was transitioned back to subcu. Have also had difficulty managing his insulin due to difficulty tolerating tube feeds #Dysphagia Had PEG tube placed 10/01 Has had difficulty tolerating tube feeds intermittently and this has been adjusted between bolus and continuous Residuals have improved and he was taken off Reglan Will need to continue aspiration precautions and will need to follow with speech therapy to continue to improve and hopefully ultimately tolerate p.o. intake KUB had been checked several times and there was no ileus or obstruction Gastric emptying study cannot be performed due to PEG tube CT abdomen with contrast had been ordered and there was no obstruction seen. G- tube had been considered but did not seem to be additional benefit and he did begin to tolerate tube feeds #Congenital deafness Family members know why so, patient will write at times on paper but does have difficulty communicating without ASL #Acute hypoxic respiratory failure 2/2 fluid overload and pneumonia On 09/21 he required ICU consult and had acute hypoxemic respiratory failure which was deemed to be secondary to hypervolemia. Dialysis was started 09/22 but due to worsening respiratory status with new concern for additional aspiration pneumonia he ultimately had to be intubated and he was placed on antibiotics. Extubated 09/29. Finished course of antibiotics and did well however began to not tolerate tube feeds and had an episode where he vomited and appeared to aspirate, he was placed back on antibiotics and sputum culture was positive for staph hemolyticus, antibiotic course was complete and he was deemed to be respiratory stable #Macrocytic anemia No active bleeding noted Per nephrology May need outpatient INOCENCIO and iron infusion with dialysis Medications at Discharge Home Medications dorzolamide-timolol (PF) 2 %-0.5 % eye drops in a dropperette 1 drp ophthalmic (eye) BID eyes 01/04/20 latanoprost 0.005 % eye drops 1 drp ophthalmic (eye) DAILY eyes 01/04/20 pen needle, diabetic 31 gauge x 5/16 (Comfort EZ Pen Speonk) #1,200 ea 01/04/20 blood sugar diagnostic (Accu-Chek Guide test strips) #100 ea 03/07/20 amlodipine 5 mg tablet 5 mg PO DAILY BP 09/14/22 omeprazole 20 mg capsule,delayed release 20 mg PO DAILY stomach 09/14/22 insulin degludec 200 unit/mL (3 mL) subcutaneous pen (Tresiba FlexTouch U-200 insulin) 25 unit subcut DAILY diabetes 09/16/22 aspirin 81 mg tablet,delayed release 81 mg PO BREAKFAST #60 tabs 10/19/22 atorvastatin 40 mg tablet 40 mg G-tube QHS #30 tabs 10/19/22 carvedilol 25 mg tablet 25 mg G-tube BID #0 tabs 10/19/22 clopidogrel 75 mg tablet 75 mg PO DAILY #30 tabs 10/19/22 fluconazole 40 mg/mL oral suspension 100 mg (2.5 mL) G-tube DAILY 4 days #10 mL 10/19/22 furosemide 40 mg tablet 40 mg PO SuTuThSa #30 tabs 10/19/22 hydralazine 50 mg tablet 50 mg G-tube TID #30 tabs 10/19/22 insulin glargine-yfgn 100 unit/mL (3 mL) subcutaneous pen 30 unit (0.3 mL) subcut 0600,1800 #0 mL 10/19/22 insulin lispro 100 unit/mL subcutaneous pen (Humalog KwikPen (U-100) Insulin) See Protocol subcut Q6 #0 mL 10/19/22 isosorbide dinitrate 10 mg tablet 5 mg PO BID #30 tabs 10/19/22 ondansetron 4 mg disintegrating tablet 4 mg PO Q6H PRN nausea and vomiting #30 tabs 10/19/22 polyethylene glycol 3350 17 gram oral powder packet 17 g PO BID #100 ea 10/19/22 Hospital Course Procedures 2-D Echocardiogram, Cardiac catheterization, Dialysis, EGD, Peg tube placement and - (Temporary dialysis catheter, then tunneled hemodialysis catheter) Summary of Care Provided Minutes Spent on Discharge: 45 Hospital Course: 57-year-old male with a history of congenital deafness and type 1 diabetes presented 09/16/2022 to [facility] with chest pain and shortness of breath for 1 day. He was a poor historian but family supplemented history and he had been in his normal state of health prior to that but then he had an event where he became hypoglycemic and fell. Blood sugar had been 36 and he received D5 and candy and blood sugar improved. He then represented and had pulmonary vascular congestion on chest x-ray with a glucose of 460 and a bicarb of 17, his creatinine was 8.76 and had an elevated troponin of 1211 and BNP of 1085. He had multiple medical problems broken down as below: #NSTEMI, CAD, and cardiomyopathy, likely ischemic Initial troponins 1211, he was on heparin drip and had cardiac catheterization delayed due to his kidney function. Cardiac cath demonstrated diffuse diseased 2 vessels. Did show multivessel disease but given he was stable it was felt that this can be evaluated and treated as an outpatient. We will be very important that he follows with cardiology upon discharge and continues current medical management. He was also noted to have an EF of 35%, possibly ischemic, on medical management at this time. He was placed on Coreg, aspirin, statin, Lasix. Not on ANIA/ARB due to kidney function #Acute kidney injury Had no labs since February 2021 when his creatinine was 1.66, he ultimately required hemodialysis and does make urine but has remained dependent on hemodialysis at this time currently on Wednesday, Wednesday, Wednesday and this will need continued as an outpatient. He will need iron and INOCENCIO as an outpatient per nephrology recom mendations. Ultimately he would benefit from a kidney biopsy but he had been unable to lay flat to tolerate this, can be coordinated upon discharge #Hypertensive emergency Treated for this and resolved #Type 1 diabetes mellitus Did go into DKA and required insulin drip more than 1 time, initially was under control but then had increasing shortness of breath and sputum production was found to have pneumonia around the time his glucose is significantly worsened and he was placed back on insulin drip. His glucose improved as his infection improved and he was transitioned back to subcu. Have also had difficulty managing his insulin due to difficulty tolerating tube feeds #Dysphagia Had PEG tube placed 10/01 Has had difficulty tolerating tube feeds intermittently and this has been adjusted between bolus and continuous Residuals have improved and he was taken off Reglan Will need to continue aspiration precautions and will need to follow with speech therapy to continue to improve and hopefully ultimately tolerate p.o. intake KUB had been checked several times and there was no ileus or obstruction Gastric emptying study cannot be performed due to PEG tube CT abdomen with contrast had been ordered and there was no obstruction seen. G- tube had been considered but did not seem to be additional benefit and he did begin to tolerate tube feeds #Congenital deafness Family members know why so, patient will write at times on paper but does have difficulty communicating without ASL #Acute hypoxic respiratory failure 2/2 fluid overload and pneumonia On 09/21 he required ICU consult and had acute hypoxemic respiratory failure which was deemed to be secondary to hypervolemia. Dialysis was started 09/22 but due to worsening respiratory status with new concern for additional aspira tion pneumonia he ultimately had to be intubated and he was placed on antibiotics. Extubated 09/29. Finished course of antibiotics and did well however began to not tolerate tube feeds and had an episode where he vomited and appeared to aspirate, he was placed back on antibiotics and sputum culture was positive for staph hemolyticus, antibiotic course was complete and he was deemed to be respiratory stable #Macrocytic anemia No active bleeding noted Per nephrology May need outpatient INOCENCIO and iron infusion with dialysis On the day of discharge she was seen with sister at bedside, no complaints at that time. Had been tolerating tube feeds better was a residual, 1 episode of emesis with no aspiration. No respiratory distress, overall stable for discharge with instructions as below: DISCHARGE INSTRUCTIONS PLEASE READ ?You will need to follow-up with nephrology and continue dialysis as an outpatient Wednesday, Wednesday, Wednesday.? You will likely have IV iron and INOCENCIO added with dialysis, will defer to nephrology ?You may need a kidney biopsy upon discharge, this can be done as an outpatient.? Please follow-up with nephrology upon discharge to coordinate this ?Hold Coreg and hydralazine on the mornings of dialysis ?Recommend a BMP and CBC in 3 to 5 days ?I will be important to follow-up with a cardiac surgeon, Dr. Linn, upon discharge for your coronary artery disease as you will need further intervention.? Please call to schedule a follow-up appointment as soon as possible ?Continue to take aspirin 81 mg and Plavix as well as carvedilol ?Continue to take 40 mg of Lasix Wednesday, Wednesday, , Wednesday ?You will be taking hydralazine and amlodipine as well as isosorbide dinitrate ?You will need to continue taking fluconazole suspension for thrush for an additional 4 days ?NPO per FUMIGATOR AND STERILIZER. ?Continue Vital AF 1.2 as tolerated at goal rate of 60mL/hour w/ 50mL H2O flush every 4 hours to provide 1728 calories, 108 g protein, and 1467mL total fl uid/day. ?Continue daily wts. ?Continue speech evaluation and treatment ?You will take 30 units of insulin glargine and continue to use sliding scale ?Recommend following up with your artistic director upon discharge ?Continue MiraLAX twice daily, has been getting Zofran scheduled, now that he is improving with tube feeds can consider making Zofran as needed -Please call your primary care provider's office upon discharge to schedule a hospital follow up within 1 week. -For any concerning signs or symptoms please call 911 or proceed to the nearest emergency department Physical Exam Const Constitutional Narrative: Laying in bed, no acute distress HEENT normocephalic and head/scalp atraumatic Eyes Eyes Narrative: EOM grossly intact, anicteric Neck supple Resp normal respiratory effort Cardio regular rate and regular rhythm GI soft to palpation, non-tender and non-distended Extremity Extremity Narrative: No edema appreciated Neuro moves all extremities Neuro Narrative: No overt focal deficits appreciated Psych Psych Narrative: Cooperative Medical Records Data Medical Nutrition Assessment Dietitian: Malnutrition Criteria Met Start: 10/12/22 13:19 Freq: Status: Active Protocol: Document 10/19/22 11:08 (Rec: 10/19/22 11:08 [id number]) Nutrition Malnutrition Evidence of Malnutrition Exists Yes Malnutrition (severe): Acute Illness/Injury Evidenced By Suboptimal Energy Intake ( Severe),Weight Loss (Severe) Intake Problem Inadequate Oral Intake Etiology related to dysphagia Signs/Symptoms as evidenced by NPO status Status Active Problem Clinical Problem Altered GI Function Etiology related to possible delayed gastric emptying Signs/Symptoms as evidenced by emesis of enteral nutrition Status Active Problem Acute Disease or Injury Related Malnutrition Etiology Severe protein-calorie malnutrition in the context of acute illness related to inadequate oral intake/ dysphagia Signs/Symptoms as evidenced by 11% wt loss in less than 1 month, NPO, need for TF and TF meeting less than 50% estimated nutrition needs Status Active Problem Altered Nutrient-Related Laboratory Values Etiology related to diabetes Signs/Symptoms as evidenced by glucose 332 Status Resolved Problem Recommendation Dietitian Recommendations/Changes 1) NPO per FUMIGATOR AND STERILIZER. 2) Continue Vital AF 1.2 as tolerated at goal rate of 60mL /hour w/ 50mL H2O flush every 4 hours to provide 1728 calories, 108 g protein, and 1467mL total fluid/day. 3) Continue daily wts. Weight / BMI Weight Weight: 69.9 kg Body Mass Index (BMI) 25.8 ABG / Lab / Microbiology Data Result Diagrams: 10/19/22 05:23 10/19/22 05:23 Laboratory: Laboratory Results - last 24 hr 10/18/22 12:51: POC Glucose 208 H 10/18/22 19:15: POC Glucose 286 H 10/19/22 00:13: POC Glucose 220 H 10/19/22 05:23: WBC 10.7, RBC 2.45 L, Hgb 7.2 L, Hct 23.0 L, MCV 93.9, MCH 29.4, MCHC 31.3 L, RDW Std Deviation 43.9, RDW Coeff of Jenifer 12.9, Plt Count 327, MPV 11.0, Immature Gran % (Auto) 1.100 H, Neut % (Auto) 73.3 H, Lymph % (Auto) 10.3 L, Martin % (Auto) 8.9, Eos % (Auto) 5.5 H, Baso % (Auto) 0.9, Absolute Neuts (auto) 7.9 H, Absolute Lymphs (auto) 1.10, Nucleated RBC % 0 10/19/22 05:23: Sodium 132 L, Potassium 4.0, Chloride 96 L, Carbon Dioxide 21.0, Anion Gap 15, BUN 73 H, Creatinine 7.32 H, Estim Creat Clear Calc 10.88, Est GFR (MDRD) Af Amer 10 L, Est GFR (MDRD) Non-Af 8 L, BUN/Creatinine Ratio 10.0, Glucose 258 H, Calcium 8.6 10/19/22 05:23: POC Glucose 247 H 10/19/22 12:01: POC Glucose 139 H Microbiology: Microbiology 10/19/22 09:30 Nasal Secretion SARS-CoV-2 Antigen (Rapid) - Final 10/06/22 09:30 Blood Culture (Wb) - Anticubital Left Blood Culture - Final No growth in 5 days. 10/06/22 09:00 Blood Culture (Wb) - Anticubital Right Blood Culture - Final No growth in 5 days. 10/06/22 15:10 Sputum, Induced/Lukens Gram Stain - Final 10/06/22 15:10 Sputum, Induced/Lukens Respiratory Culture - Final Staphylococcus haemolyticus 10/06/22 09:00 Urine Catheter - Lopez Urine Culture - Final Culture exhibits no growth. 10/06/22 09:00 Mucosa - Nasopharyngeal Respiratory Panel (PCR) - Final 10/06/22 09:00 Nasal Secretion SARS-CoV-2 & FLU Antigen (Rapid) - Final 09/23/22 07:34 Sputum, Tracheal Aspirate Gram Stain - Final 09/23/22 07:34 Sputum, Tracheal Aspirate Respiratory Culture - Final Staphylococcus aureus 09/22/22 07:20 Sputum, Induced/Lukens Gram Stain - Final 09/22/22 07:20 Sputum, Induced/Lukens Respiratory Culture - Final Mixed normal respiratory amparo. No Streptococcus pneumoniae, beta-hemolytic Streptococcus or Staphylococcus aureus isolated. 09/17/22 15:45 Urine, Clean Catch Urine Culture - Final Culture exhibits no growth. 09/16/22 07:05 Nasal Secretion SARS-CoV-2 & FLU Antigen (Rapid) - Final D/C Instructions Discharge Diet: - (See speech recommendations) Discharge Activity: Return to Normal Activity (PT/OT eval) Meaningful Use Info Meaningful Use Diagnoses (Choose all that apply): CHF CHF ANIA/ARB ordered at discharge?: No Reason ANIA/ARB not ordered?: Worsening renal function Documented LVEF (%): 35 Discharge Plan Admission Admit Date/Time: 09/16/22 08:22 Primary Reason for Your Visit: TREVOR Attending Provider: Susu Goode Primary Care Provider: Marta Brooks Consulting Providers: Prabhjot Bliss ; Enzo Herrera ; Erik Olmstead ; Elvis Hampton ; Aristeo Chung ; Narinder Chaudhary ; Daniel Ibrahim ; Dashawn Solano ; Ana Lilia Weber NP ; Eleazar Farrar ; Aries Truong ; Camelia Hauser ; Susu Goode Instructions Patient Instructions: Caring for Your Hemodialysis Access Additional Instructions / Restrictions: DISCHARGE INSTRUCTIONS PLEASE READ ?You will need to follow-up with nephrology and continue dialysis as an outpatient Wednesday, Wednesday, Wednesday. You will likely have IV iron and INOCENCIO added with dialysis, will defer to nephrology ?You may need a kidney biopsy upon discharge, this can be done as an outpatient. Please follow-up with nephrology upon discharge to coordinate this ?Hold Coreg and hydralazine on the mornings of dialysis ?Recommend a BMP and CBC in 3 to 5 days ?I will be important to follow-up with a cardiac surgeon, Dr. Linn, upon discharge for your coronary artery disease as you will need further intervention. Please call to schedule a follow-up appointment as soon as possible ?Continue to take aspirin 81 mg and Plavix as well as carvedilol ?Continue to take 40 mg of Lasix Wednesday, Wednesday, , Wednesday ?You will be taking hydralazine and amlodipine as well as isosorbide dinitrate ?You will need to continue taking fluconazole suspension for thrush for an additional 4 days ?NPO per FUMIGATOR AND STERILIZER. ?Continue Vital AF 1.2 as tolerated at goal rate of 60mL/hour w/ 50mL H2O flush every 4 hours to provide 1728 calories, 108 g protein, and 1467mL total fluid/day. ?Continue daily wts. ?Continue speech evaluation and treatment ?You will take 30 units of insulin glargine and continue to use sliding scale ?Recommend following up with your artistic director upon discharge ?Continue MiraLAX twice daily, has been getting Zofran scheduled, now that he is improving with tube feeds can consider making Zofran as needed -Please call your primary care provider's office upon discharge to schedule a hospital follow up within 1 week. -For any concerning signs or symptoms please call 911 or proceed to the nearest emergency department Discharge Orders/Prescriptions Prescriptions: New atorvastatin 40 mg Tablet 40 mg G-tube QHS Qty: 30 0RF aspirin 81 mg Tablet,Delayed Release (Dr/Ec) 81 mg PO BREAKFAST Qty: 60 0RF furosemide 40 mg Tablet 40 mg PO SuTuThSa Qty: 30 0RF carvedilol 25 mg Tablet 25 mg G-tube BID Qty: 0 0RF clopidogrel 75 mg Tablet 75 mg PO DAILY Qty: 30 0RF hydralazine 50 mg Tablet 50 mg G-tube TID Qty: 30 0RF fluconazole 40 mg/mL Suspension For Reconstitution 100 mg G-tube DAILY 4 Days Qty: 10 0RF insulin glargine-yfgn 100 unit/mL (3 mL) Insulin Pen 30 unit subcut 0600,1800 Qty: 0 0RF insulin lispro [Humalog KwikPen Insulin] 100 unit/mL Insulin Pen See Protocol subcut Q6 Qty: 0 0RF Protocol: 4. Sliding Scale Insulin High-Med Dosing Condition: 150-199 mg/dl = 2 units Condition: 200-259 mg/dl = 4 units Condition: 260-324 mg/dl = 6 units Condition: 325-374 mg/dl = 8 units Condition: 375-409 mg/dl = 10 units Condition: 410-449 mg/dl = 11 units Condition: Greater than 449 call physician Protocol Text: - Use for Total Daily Dose of Insulin 56-80 units - Patient who are insulin resistant or septic HIGH MEDIUM DOSING ALGORITHM isosorbide dinitrate 10 mg Tablet 5 mg PO BID Qty: 30 0RF polyethylene glycol 3350 17 gram Powder In Packet 17 g PO BID Qty: 100 0RF ondansetron 4 mg tablet,disintegrating 4 mg PO Q6H PRN (Reason: nausea and vomiting) Qty: 30 0RF Continued latanoprost 0.005 % drops 1 drp OPHTHALMIC DAILY dorzolamide-timolol (PF) 2-0.5 % dropperette 1 drp OPHTHALMIC BID omeprazole 20 mg capsule,delayed release(DR/EC) 20 mg PO DAILY amlodipine 5 mg tablet 5 mg PO DAILY Discontinued aspirin 325 mg tablet 325 mg PO DAILY losartan 50 mg tablet 50 mg PO BID Qty: 180 1RF simvastatin 80 mg tablet 80 mg PO QHS Qty: 30 0RF insulin aspart U-100 [Novolog FlexPen U-100 Insulin] 100 unit/mL (3 mL) insuli n pen See Rx Instructions SC TID Qty: 30 3RF Rx Instructions: 38 with meals, 16 with snacks No Action (DME) pen needle, diabetic [Comfort EZ Pen Speonk] 31 gauge x 5/16 needle See Rx Instructions .ROUTE .MEDSUPPLY Qty: 1,200 Rx Instructions: use to inject insulin 4 x qd (DME) blood sugar diagnostic [Accu-Chek Guide test strips] Strip See Rx Instructions .ROUTE .MEDSUPPLY Qty: 100 8RF Rx Instructions: test 3 times daily insulin degludec [Tresiba FlexTouch U-200] 200 unit/mL (3 mL) insulin pen 25 unit SC DAILY Referrals / Follow Up: Pranay Linn [Other] - See Referral Note (Please call the car thoracic surgeon's office upon discharge to schedule a follow-up) Elvis Hampton MD [Med Staff - Active Staff] - See Referral Note (Please follow-up with general cardiology upon discharge as well, [facility] Radha Landaverde MD [Med Staff - Consulting] - See Referral Note (You will need to continue dialysis Wednesday, Wednesday, Wednesday. It will be important for you to follow with nephrology however to coordinate your kidney biopsy. Please call upon discharge to schedule hospital follow-up) Marta Brooks, ACOUSTIC INTELLIGENCE SPECIALIST-C [Primary Care Provider] - Disposition Disposition (needs filled in before D/C Order can be placed): Group Home Facility Charges/Coding Visit Charges Inpatient E&M: 27173 Disch Hosp >30min
--- NOTE | 2022-10-19 17:11 | NURSING ---
I spoke with Ben marcell's step-son to let him know pt is supposed to be picked up from [facility] around [address] [facility].
[2022-10-19 17:30] LABS: Bedside Glucose 215 mg/dL (74-106)
[2022-10-19] MEDS: hydrALAZINE 20 MG/ML Vial 10 MG IV (17:48)
[2022-10-19] MEDS: Atorvastatin Calcium 40 MG Tablet GT (21:01)
[2022-10-19] MEDS: hydrALAZINE 50 MG Tablet GT (21:01)
[2022-10-19] MEDS: Carvedilol 25 MG Tablet GT (21:01)
[2022-10-19] MEDS: Ondansetron ODT 4 MG Tablet PO (23:24)
--- NOTE | 2022-10-19 23:45 | NURSING ---
dania care provided clean brief applied. IVx3, d/c canula intact 2x2 and tape applied bleeding stopped. pt noted with emesis after transfer to EMS cot, Mayra ODT order obtained. oral care provided, clean gown applied. pt via cot with EMS and belongings including cane to exit at this time.Report called to Roro HALL at [facility]. questions answered at this time.
[2022-10-20 00:50] LABS: Bedside Glucose 175 mg/dL (74-106)
== END 2022-10-19 23:20 | DRG 280 ==
LOC: ED 07:48 → PCU 08:53 → ICU 09-21 12:46 → PCU 10-01 11:43 → ICU 10-05 04:42 → PCU 10-07 19:56
PROVIDERS: Anesthesiology; Family Medicine; Internal Medicine; Internal Medicine Cardiovascular Disease; Internal Medicine Critical Care Medicine; Internal Medicine Nephrology; Internal Medicine Pulmonary Disease; Nurse Practitioner Adult Health; Radiology Diagnostic Radiology; Surgery; Emergency Provider Emergency Medicine; PCP Nurse Practitioner Family; Visit Provider Internal Medicine
PROC: 0JH63XZ Insertion of Tunneled Vascular Access Device into Chest Subcutaneous Tissue and Fascia, Percutaneous Approach (ICD-10-PCS; principal; 2022-09-25 11:45)
PROC: 0DJ08ZZ Inspection of Upper Intestinal Tract, Via Natural or Artificial Opening Endoscopic (ICD-10-PCS; CPT 43235; principal; 2022-10-01 13:15)
DX: I21.4 Non-ST elevation (NSTEMI) myocardial infarction (principal); J96.01 Acute respiratory failure with hypoxia; J18.9 Pneumonia, unspecified organism; E43 Unspecified severe protein-calorie malnutrition; E87.20 Acidosis, unspecified; N17.9 Acute kidney failure, unspecified; E87.0 Hyperosmolality and hypernatremia; I13.0 Hypertensive heart and chronic kidney disease with heart failure and stage 1 through stage 4 chronic kidney disease, or unspecified chronic kidney disease; J90 Pleural effusion, not elsewhere classified; J81.1 Chronic pulmonary edema; I16.1 Hypertensive emergency; E10.649 Type 1 diabetes mellitus with hypoglycemia without coma; E10.319 Type 1 diabetes mellitus with unspecified diabetic retinopathy without macular edema; I27.20 Pulmonary hypertension, unspecified; I50.9 Heart failure, unspecified; E10.22 Type 1 diabetes mellitus with diabetic chronic kidney disease; Z79.4 Long term (current) use of insulin; N18.30 Chronic kidney disease, stage 3 unspecified; E10.10 Type 1 diabetes mellitus with ketoacidosis without coma; Z93.1 Gastrostomy status; D53.9 Nutritional anemia, unspecified; I10 Essential (primary) hypertension; E78.5 Hyperlipidemia, unspecified; K21.9 Gastro-esophageal reflux disease without esophagitis; I25.10 Atherosclerotic heart disease of native coronary artery without angina pectoris; I25.5 Ischemic cardiomyopathy; I34.0 Nonrheumatic mitral (valve) insufficiency; R11.10 Vomiting, unspecified; Z79.82 Long term (current) use of aspirin; H90.5 Unspecified sensorineural hearing loss; Z23 Encounter for immunization; Z79.899 Other long term (current) drug therapy; R13.10 Dysphagia, unspecified
CPT/HCPCS: 31500; 31720; 36415; 36600; 71045; 74018; 74160; 74230; 76000; 76770; 80048; 80053; 80069; 80076; 80202; 81001; 82009; 82550; 82570; 82607; 82728; 82746; 82784; 82803; 82947; 82962; 83036; 83540; 83550; 83605; 83735; 83880; 83930; 84100; 84132; 84145; 84156; 84300; 84443; 84478; 84484; 85025; 85027; 85610; 85730; 86160; 86256; 86334; 86706; 86850; 86900; 86901; 86920; 86922; 87040; 87070; 87077; 87086; 87186; 87205; 87340; 87426; 87428; 87633; 87641; 90937; 92507; 92526; 92610; 92611; 93005; 93306; 93458; 94002; 94003; 94640; 94660; 94668; 94762; 97110; 97162; 97166; 97530; 97535; 97802; 97803; 99152; 99153; 99251; 99284; 99285; G0008; J7030; J7040; J7050; P9016; Q9957; Q9967; 90686; A4216; C1752; C1769; C1894; G0257; G0463; J1940; J2405; J3010

== ENCOUNTER 2022-10-21 16:05 | Inpatient (IN) | payer MEDICARE, SELFPAY ==
[2022-10-21 16:06] VITALS: BP 146/84; PULSE 93; RESP 29; TEMP 36.4; O2SAT 95; BMI 22.4
--- NOTE | 2022-10-21 16:22 | ED.RN ---
MD AT BEDSIDE TO EVALUATE, CURTAIN DRIER USED.
--- NOTE | 2022-10-21 16:28 | EKG12_ITS ---
Test Reason : Blood Pressure : / mmHG Vent. Rate : 093 BPM Atrial Rate : 093 BPM P-R Int : 150 ms QRS Dur : 086 ms QT Int : 356 ms P-R-T Axes : 064 067 224 degrees QTc Int : 442 ms Normal sinus rhythm Left ventricular hypertrophy with repolarization abnormality ( Sokolow-Perez ) Abnormal ECG Confirmed by AMRITA HERMOSILLO, MYRA ([id number]), material expeditor EMMANUEL NEWMAN ([id number]) on 10/26/2022 12:22:43 PM Referred By: Confirmed By:MYRA CROWE MD
--- NOTE | 2022-10-21 16:30 | CT_ITS ---
STUDY: CT ABDOMEN AND PELVIS WITHOUT CONTRAST REASON FOR EXAM: Male, 57 years old. Nausea and vomiting. RADIATION DOSAGE (If Supplied By Facility): CTDIvol = ( 10.07 ) mGy, DLP = ( 541.14 ) mGycm TECHNIQUE: Transaxial images were obtained from the dome of the diaphragm to the symphysis pubis without oral contrast, and without intravenous contrast. Sagittal and coronal images were reconstructed. Individualized dose optimization techniques were used for this CT. COMPARISON: CT the abdomen, October 13, 2022. FINDINGS: Minimal patchy densities in the subpleural lung base is decreased from the prior study. The visualized portions of the heart are within normal limits. Normal liver. There is non-visualization of the gallbladder, which may be secondary to either contraction or a prior cholecystectomy. Normal spleen. Normal pancreas. Normal bilateral adrenal glands. Small cyst off the lower pole. Otherwise normal right kidney. Normal left kidney. Normal visualized ureters. There is a gastrostomy tube in the body of an otherwise collapsed stomach. Normal small intestine. Normal colon. Question prior appendectomy. Atherosclerotic changes of the abdominal aorta and iliac arteries without aneurysm. Normal inferior vena cava. Density is a fatty left periaortic lymph node unchanged from prior study. There is a Lopez catheter within the lumen of the sigmoid wall partially collapsed urinary bladder. Mildly enlarged prostate. Calcifications are seen in the vas deferens. No pelvic lymphadenopathy. No free air or free fluid within the abdominal cavity. Mild stranding of subcutaneous fat. Question subcutaneous injection sites. Abdominal wall is otherwise unremarkable. Mild degenerative changes of the lumbar spine and hips. CT/Abdomen/Pelvis without Cont IMPRESSION: 1. Resolving pulmonary infiltrates. 2. Stable PEG tube. 3. Thick-walled urinary bladder containing a Lopez catheter. The possibility of cystitis cannot be ruled out. 4. No acute abnormality or other major interval change. Electronically Signed: Jonas Peguero DO at 17:13 [facility] ,
--- NOTE | 2022-10-21 16:31 | EDS_ITS ---
HPI HPI - GI History of Present Illness Chief Complaint: Abd Pain Narrative Narrative: 57-year-old male problems presents [facility] with nausea and vomiting. History and physical is limited secondary to the patient being deaf. He communicates with Maldivian sign language. Additionally, however he answers a lot of questions with I do not know according to the warehouse driver. [employer]-constitution party warehouse driver was used via video teleconference. It was noted that the patient spent the majority of September, last month in the hospital. He was discharged to the group home facility on October 18, 3 days ago. He states that he has had nausea and vomiting for the last 1 to 2 weeks. He vomits every day. He is unsure how many times he vomits, and unsure how many times in the last 24 hours. He denies any abdominal pain with this. No diarrhea. He states that he is on dialysis 2 days a week, but is unsure when he last received dialysis, or what days he receives them. [facility] Medical History Acute renal failure Congenital deafness Deaf Decreased left ventricular systolic function Diabetes HTN (hypertension) Hyperlipidemia On mechanically assisted ventilation Stroke Vision problem Home Medications dorzolamide-timolol (PF) 2 %-0.5 % eye drops in a dropperette 1 drp ophthalmic (eye) BID eyes 01/04/20 [History Last Taken 10/21/22] latanoprost 0.005 % eye drops 1 drp ophthalmic (eye) DAILY eyes 01/04/20 [History Last Taken 10/21/22] pen needle, diabetic 31 gauge x 5/16 (Comfort EZ Pen [place]) #1,200 ea 01/04/20 [History Last Taken Unknown] blood sugar diagnostic (Accu-Chek Guide test strips) #100 ea 03/07/20 [Rx Last Taken Unknown] amlodipine 5 mg tablet 5 mg feeding tube DAILY BP 09/14/22 [History Last Taken 10/21/22] atorvastatin 40 mg tablet 40 mg G-tube QHS #30 tabs 10/19/22 [Rx Last Taken 10/20/22] carvedilol 25 mg tablet 25 mg G-tube BID #0 tabs 10/19/22 [Rx Last Taken 10/20/22] fluconazole 40 mg/mL oral suspension 100 mg (2.5 mL) G-tube DAILY 4 days #10 mL 10/19/22 [Rx Last Taken 10/21/22] hydralazine 50 mg tablet 50 mg G-tube TID #30 tabs 10/19/22 [Rx Last Taken 10/20/22] insulin glargine-yfgn 100 unit/mL (3 mL) subcutaneous pen 30 unit (0.3 mL) subcut 0600,1800 #0 mL 10/19/22 [Rx Last Taken 10/21/22] ondansetron 4 mg disintegrating tablet 4 mg PO Q6H PRN nausea and vomiting #30 tabs 10/19/22 [Rx Last Taken 10/21/22] polyethylene glycol 3350 17 gram oral powder packet 17 g PO BID #100 ea 10/19/22 [Rx Last Taken Unknown] aspirin 81 mg tablet,delayed release 81 mg feeding tube BREAKFAST 10/21/22 [History Last Taken 10/21/22] clopidogrel 75 mg tablet 75 mg feeding tube DAILY 10/21/22 [History Last Taken 10/21/22] furosemide 40 mg tablet 40 mg feeding tube SuTuThSa 10/21/22 [History Last Taken 10/20/22] insulin lispro 100 unit/mL subcutaneous pen (Humalog KwikPen (U-100) Insulin) See Protocol subcut Q6H DM 10/21/22 [History Last Taken 10/21/22] isosorbide dinitrate 10 mg tablet 10 mg feeding tube BID 10/21/22 [History Last Taken 10/21/22] omeprazole 20 mg delayed release,disintegrating tablet 20 mg PO DAILY GERD 10/21/22 [History Last Taken 10/21/22] Allergy/AdvReac Type Severity Reaction Status Date / Time No Known Allergies Allergy Verified 09/15/22 10:39 Family History Mother Diabetes Deaf Social History Smoking Status: Never smoker alcohol intake: never substance use type: does not use what type of physical activity do you participate in: none ROS ROS ED ROS Narrative Constitutional: No fever, no chills. HEENT: No sore throat. No neck pain. No loss of vision. No rhinorrhea. Cardiovascular: No chest pain. No palpitations. No pedal edema. Respiratory: No cough, no shortness of breath. Abdominal: No abdominal pain. Positive nausea. Positive vomiting. Genitourinary: No dysuria. No hematuria. Musculoskeletal: No myalgias. No arthralgias. Neurologic: No headaches. No dizziness. No lightheadedness. Skin: No rash. No change in color. Psychiatric: No depression. No anxiety. EXAM Physical Exam Narrative Exam Narrative: Afebrile. Vital signs noted. HEENT: Normocephalic. Atraumatic. PERRL, EOMI. Neck soft and supple. No point tenderness or step off. Cardiovascular: Regular rate and rhythm. No murmurs, rubs, or gallops appreciated. Respiratory: No tachypnea. Lungs clear to auscultation bilaterally. Gastrointestinal: Abdomen soft, nontender, with normoactive bowel sounds. No rebound or guarding. Neurological: Awake. Alert. Nonfocal, nonlateralizing. Skin: No rash. Normal color. Mild pallor. Musculoskeletal: No pedal edema. Full range of motion extremities. Const Vital Signs: 10/21/22 16:06 10/21/22 17:42 10/21/22 20:37 Temperature 97.6 F L Temperature Source Temporal Pulse Rate 93 93 93 Respiratory Rate 29 H 17 16 Blood Pressure 146/84 H 147/81 H 143/80 H Blood Pressure Mean 104 103 101 Pulse Ox 95 99 98 Oxygen Delivery Method Room Air Room Air Room Air Oxygen Flow Rate (L/min) 10/21/22 21:42 Temperature Temperature Source Pulse Rate 101 H Respiratory Rate 21 H Blood Pressure 147/79 H Blood Pressure Mean 101 Pulse Ox 92 Oxygen Delivery Method Nasal Cannula Oxygen Flow Rate (L/min) 2 MDM MDM MDM Narrative Medical decision making narrative: In review of the patient's EMR, he has had problems with regurgitation of food, dysphagia, and vomiting. He had respiratory failure with hypoxia. He is diabetic and has chronic kidney disease. He states he does not wear oxygen usually. He vomited once here dark, coffee-ground emesis. Comprehensive work- up will be pursued. In the differential is pancreatitis, but this is less likely because he is not having abdominal pain. Given his nausea and vomiting, and coffee-ground emesis he could have upper GI bleed versus Doreen-Soto tear from profuse vomiting. We will image his abdomen with CT. EKG was obtained and interpreted by myself. It demonstrates normal sinus rhythm at 93 bpm without ectopy or acute ST changes. There is ST depression in leads V4 through V6 and somewhat laterally, but no significant change from an EKG dated October 01, 2022. I obtained and reviewed his CBC. He has an elevated white count of 14.5, hemoglobin stable at 8.2, platelet count 441. Electrolyte panel was obtained and reviewed/CMP which shows AST normal at 34, ALT 46, alk phos elevated at 125 which I think is nonspecific. I obtained and reviewed his lipase which is normal at 239. Sodium is normal at 139, potassium 4.2, chloride normal at 100. BUN is elevated at 66 with a creatinine of 7.20 consistent with his end-stage renal disease and his need for dialysis twice a week. I reviewed and interpreted his CT scan and am in accordance with what the radiologist reports with resolving pneumonia, stable PEG tube, no evidence of obstruction. I obtained and interpreted his chest x-ray which shows no acute infiltrates, these are only seen on CT scan. He vomited dark, coffee-ground emesis here. NG tube was inserted and I interpreted the KUB which shows the NG tube in place with the tip just below the diaphragm. I also reviewed the radiology reads. After NG tube insertion, he does have dark brown return consistent with upper GI bleeding possibly from gastritis. He was given Protonix 40 mg intravenously. At this point in time, patient will be discussed with the hospitalist, Dr. Rodriguez, for admission. Patient is in stable condition. Lab Data Attestation: I reviewed the patient's lab results. Labs: Laboratory Results - last 24 hr 10/21/22 10/21/22 17:07 17:07 WBC 14.5 H RBC 2.70 L Hgb 8.2 L Hct 25.8 L MCV 95.6 H MCH 30.4 MCHC 31.8 L RDW Std Deviation 44.6 H RDW Coeff of Jenifer 12.8 Plt Count 441 MPV 10.2 Immature Gran % (Auto) 0.600 Neut % (Auto) 80.8 H Lymph % (Auto) 9.0 L Tillman % (Auto) 6.8 Eos % (Auto) 1.6 Baso % (Auto) 1.2 H Absolute Neuts (auto) 11.7 H Absolute Lymphs (auto) 1.30 Nucleated RBC % 0 Sodium 139 Potassium 4.2 Chloride 100 Carbon Dioxide 29.0 Anion Gap 10 BUN 66 H Creatinine 7.20 H Estim Creat Clear Calc 11.18 Est GFR (MDRD) Af Amer 10 L Est GFR (MDRD) Non-Af 8 L BUN/Creatinine Ratio 9.2 L Glucose 124 H Calcium 9.6 Total Bilirubin 0.20 AST 34 ALT 46 Alkaline Phosphatase 125 H Total Protein 7.9 Albumin 1.6 L Globulin 6.3 H Albumin/Globulin Ratio 0.3 L Lipase 239 Radiography Diagnostic Testing: Clinical Impression(s) from Imaging Studies Abdomen/Pelvis CT 10/21/22 16:30 IMPRESSION: 1. Resolving pulmonary infiltrates. 2. Stable PEG tube. 3. Thick-walled urinary bladder containing a Lopez catheter. The possibility of cystitis cannot be ruled out. 4. No acute abnormality or other major interval change. Electronically Signed: Jonas Peguero DO at 17:13 EST Reading Location [facility] and [facility] Tel [phone], Service support , Chest X-Ray 10/21/22 16:45 IMPRESSION: No radiographic evidence of acute cardiopulmonary disease. Electronically Signed: Agustin Meraz MD at 16:56 EST , KUB X-Ray 10/21/22 20:36 IMPRESSION: NG tube as above. Electronically Signed: Jonas Peguero DO at 20:54 EST Reading Location ID and State: [facility] / [place] Tel [phone], Service support , Discharge Plan Dx/Rx/DC Orders Clinical Impression: Nausea and vomiting, Upper GI bleed Disposition Disposition: [facility]
--- NOTE | 2022-10-21 16:45 | RAD_ITS ---
INDICATION: shortness of breath EXAMINATION/TECHNIQUE: X-RAY - portable upright AP chest x-ray COMPARISON: 10/13/2022 FINDINGS: LINES/DEVICES: Stable left-sided dialysis catheter. LUNGS: No consolidation, edema or effusion. No pneumothorax. MEDIASTINUM AND CARDIOVASCULAR STRUCTURES: Cardiac silhouette not enlarged. Central airways and mediastinal contour are unremarkable. BONES AND SOFT TISSUES: Unremarkable. RAD/Chest 1 View (Portable) IMPRESSION: No radiographic evidence of acute cardiopulmonary disease. Electronically Signed: Agustin Meraz MD at 16:56 EST ,
[2022-10-21 17:28] LABS: Absolute Neutrophil Count 11.7 X10^3/uL (2.0-7.7); Basophil# 0.17 X10^3/uL; Basophil% 1.2 % (0-1); Eosinophil# 0.23 X10^3/uL; Eosinophils% 1.6 % (0-5); Hematocrit 25.8 % (40-54); Hemoglobin 8.2 g/dL (13.0-16.5); Mean Corp Hgb Conc 31.8 g/dL (32-36); Mean Corpuscular Hgb 30.4 pg (27.0-32.0); Mean Corpuscular Volume 95.6 fL (80-94); Mean Platelet Vol. 10.2 fl (6.2-12.0); Monocyte# 0.99 X10^3/uL; Monocyte% 6.8 % (0-10); NRBC Flagged by Analyzer 0 % (0-5); Neutrophil # 11.74 X10^3/uL (2.7-7.7); Neutrophil % 80.8 % (47-70); Platelet Count 441 K/mm3 (150-450); RBC Distribution Width CV 12.8 % (11.6-14.6); RBC Distribution Width SD 44.6 fl (35.1-43.9); White Blood Count 14.5 K/mm3 (4.4-11.0)
[2022-10-21 17:42] VITALS: BP 147/81; PULSE 93; RESP 17; O2SAT 99
[2022-10-21 17:46] LABS: ALB/GLOB Ratio 0.3 RATIO (0.9-2.4); AST(SGOT) 34 U/L (15-37); Alanine Aminotransfer ALT/SGPT 46 U/L (16-61); Albumin, Serum 1.6 g/dL (3.2-5.0); Alkaline Phosphatase 125 U/L (45-117); Anion Gap 10 (5-15); BUN 66 mg/dL (7-18); BUN/Creat Ratio 9.2 RATIO (10-20); Calcium,Total 9.6 mg/dL (8.5-10.1); Chloride 100 mmol/L (98-107); EST Glomerular Filtration Rate 8 mL/min (>60); Est Glom Filt Rate - Afr Amer 10 mL/min (>60); Estimated Creatinine Clearance 11.18 ml/min; Globulin 6.3 g/dL (2.2-4.2); Glucose 124 mg/dL (74-106); Lipase 239 U/L (73-393); Potassium 4.2 mmol/L (3.5-5.1); Protein, Total 7.9 g/dL (6.4-8.2); Sodium Level 139 mmol/L (136-145)
[2022-10-21] MEDS: Oxymetazoline 0.05% 1 SPRAY SPRAY.BTL 2 SPRAY NASAL (20:35)
--- NOTE | 2022-10-21 20:36 | RAD_ITS ---
STUDY: X-RAY - ABDOMEN/PELVIS REASON FOR EXAM: Male, 57 years old. NG tube placement. TECHNIQUE: An AP view of the lower chest and upper abdomen. COMPARISON: Chest, October 21, 2022. CT of the abdomen and pelvis, October 21, 2022. FINDINGS: Normal visualized lung bases. There is evidence of a left jugular hemodialysis catheter. The heart is normal in size. There is an NG tube with its tip just below the diaphragm. The upper port lies at the level of the diaphragm. This should be advanced at least 2 cm to ensure the upper port lies within the gastric lumen. There is an unremarkable bowel gas pattern. There is no demonstrated free abdominal air. The visualized liver, spleen and kidneys are grossly normal in size and morphology. Normal soft tissue structures. Normal visualized osseous structures. RAD/Abdomen Single View (Portable) IMPRESSION: NG tube as above. Electronically Signed: Jonas Peguero DO at 20:54 EST ,
[2022-10-21 20:37] VITALS: BP 143/80; PULSE 93; RESP 16; O2SAT 98
--- NOTE | 2022-10-21 20:41 | NURSING ---
Step son updated with plan of care for patient and aware to call [facility] to let them know patient is being admitted.
[2022-10-21 21:42] VITALS: BP 147/79; PULSE 101; RESP 21; O2SAT 92
[2022-10-21 22:32] VITALS: BP 157/85; PULSE 100; RESP 20; TEMP 36.9; O2SAT 97
--- NOTE | 2022-10-21 22:33 | HP.PCM.HOS_ITS ---
HPI - General General Date of Admission: 10/21/22 Date of Service: 10/21/22 Chief Complaint: Abdominal pain HPI Narrative SCOTT BUTLER, is a 57 M with a past medical history as outlined who presents via the ED on 10/21/2022 with a complaint of abdominal pain and vomiting. Of note patient has congenital deafness and history was taken with the help of the auto transmission mechanic via comfort station supervisor service. Patient was recently discharged from the hospital after being managed for hypoglycemia as well as non-STEMI and ischemic cardiomyopathy and TREVOR. He had cardiac cath during his recent admission which shows multivessel disease and plan was for medical management. He also had TREVOR and eventually required hemodialysis on Wednesdays via tunneled dialysis catheter. He was still hemodialysis dependent at time of discharge. He was [facility] to the shelter on 10/[facility]/2022 and presents today with a complaint of abdominal pain. He said the abdominal pain started today. He had associated vomiting and according to him the emesis was carrasco-colored but when he came in the ED, NG tube placed showed maroon-colored stomach aspirate. He denied any diarrhea or any hematemesis. He denied any dark stools. He denied any history of peptic ulcer disease and denies taking any ewyc-frx-[id number] pain medication. Review of systems is otherwise negative. Vitals in the ED were blood pressure 157/85, pulse rate of 100 and respiratory rate of 20. Temperature was 90.5 Fahrenheit and he was saturating at 97% on 2 L of oxygen. CBC showed hemoglobin of 8.2 with WBC of 14.5 and platelets of 441. Chemistry showed creatinine of 7.2 and sodium of 139. Abdominal pelvic CT showed resolving pulmonary infiltrates and stable PEG tube as well as thick- walled urinary bladder containing a Lopez catheter with a possibility of cystitis which cannot be ruled out. Chest x-ray showed no acute cardiopulmonary disease. He had an NG tube inserted in the ED and he has been admitted to be managed for abdominal pain likely due to upper GI bleed. [facility] Medical History Acute renal failure Congenital deafness Deaf Decreased left ventricular systolic function Diabetes HTN (hypertension) Hyperlipidemia On mechanically assisted ventilation Stroke Vision problem Home Medications dorzolamide-timolol (PF) 2 %-0.5 % eye drops in a dropperette 1 drp ophthalmic (eye) BID eyes 01/04/20 [History Last Taken 10/21/22] latanoprost 0.005 % eye drops 1 drp ophthalmic (eye) DAILY eyes 01/04/20 [History Last Taken 10/21/22] pen needle, diabetic 31 gauge x 5/16 (Comfort EZ Pen Hel[place]) #1,200 ea 01/04/20 [History Last Taken Unknown] blood sugar diagnostic (Accu-Chek Guide test strips) #100 ea 03/07/20 [Rx Last Taken Unknown] amlodipine 5 mg tablet 5 mg feeding tube DAILY BP 09/14/22 [History Last Taken 10/21/22] atorvastatin 40 mg tablet 40 mg G-tube QHS #30 tabs 10/19/22 [Rx Last Taken 10/20/22] carvedilol 25 mg tablet 25 mg G-tube BID #0 tabs 10/19/22 [Rx Last Taken 10/11 ] fluconazole 40 mg/mL oral suspension 100 mg (2.5 mL) G-tube DAILY 4 days #10 mL 10/19/22 [Rx Last Taken 10/21/22] hydralazine 50 mg tablet 50 mg G-tube TID #30 tabs 10/19/22 [Rx Last Taken 10/20] insulin glargine-yfgn 100 unit/mL (3 mL) subcutaneous pen 30 unit (0.3 mL) subcut 0600,1800 #0 mL 10/19/22 [Rx Last Taken 10/21/22] ondansetron 4 mg disintegrating tablet 4 mg PO Q6H PRN nausea and vomiting #30 tabs 10/19/22 [Rx Last Taken 10/21/22] polyethylene glycol 3350 17 gram oral powder packet 17 g PO BID #100 ea 10/19/22 [Rx Last Taken Unknown] aspirin 81 mg tablet,delayed release 81 mg feeding tube BREAKFAST 10/21/22 [History Last Taken 10/21/22] clopidogrel 75 mg tablet 75 mg feeding tube DAILY 10/21/22 [History Last Taken 10/21/22] furosemide 40 mg tablet 40 mg feeding tube SuTuThSa 10/21/22 [History Last Taken 10/20/22] insulin lispro 100 unit/mL subcutaneous pen (Humalog KwikPen (U-100) Insulin) See Protocol subcut Q6H DM 10/21/22 [History Last Taken 10/21/22] isosorbide dinitrate 10 mg tablet 10 mg feeding tube BID 10/21/22 [History Last Taken 10/21/22] omeprazole 20 mg delayed release,disintegrating tablet 20 mg PO DAILY GERD 10/21/22 [History Last Taken 10/21/22] Allergy/AdvReac Type Severity Reaction Status Date / Time No Known Allergies Allergy Verified 09/15/22 10:39 Family History Mother Diabetes Deaf Social History Smoking Status: Never smoker alcohol intake: never substance use type: does not use what type of physical activity do you participate in: none ROS Constitutional Constitutional: Denies anorexia, chills, fatigue, fever(s), malaise or weakness Eyes Eyes: Denies change in vision ENT HEENT: Denies dysphagia, epistaxis, headache(s), nasal congestion or sore throat Cardiovascular Cardiovascular: Denies chest pain, dyspnea on exertion, edema, lightheadedness, orthopnea, palpitations, rapid heart rate or syncope Respiratory/Chest Respiratory/Chest: Denies cough, dyspnea, shortness of breath at rest or shortness of breath with exertion Gastrointestinal Gastrointestinal: Reports abdominal pain, coffee ground emesis, nausea and vomiting; Denies constipation, diarrhea, dyspepsia, hematemesis, hematochezia, loose stools or melena Genitourinary Genitourinary: Denies burning urination, dysuria, hematuria, urinary frequency or urinary urgency Musculoskeletal Musculoskeletal: Denies arthralgias Neurologic Neurologic: Denies confusion, dizziness, focal weakness, headache(s) or seizures Psychiatric Psychiatric: Denies anxiety or depression Endocrine Endocrinology: Denies change in body appearance Hematologic/Lymphatic Hematologic/Lymphatic: Denies anemia Vital Signs Vital Signs Vital Signs: 10/21/22 16:06 10/21/22 17:42 10/21/22 20:37 Temperature 97.6 F L Temperature Source Temporal Pulse Rate 93 93 93 Respiratory Rate 29 H 17 16 Blood Pressure 146/84 H 147/81 H 143/80 H Blood Pressure Mean 104 103 101 Pulse Ox 95 99 98 Oxygen Delivery Method Room Air Room Air Room Air Oxygen Flow Rate (L/min) 01/11/23 21:42 Temperature Temperature Source Pulse Rate 101 H Respiratory Rate 21 H Blood Pressure 147/79 H Blood Pressure Mean 101 Pulse Ox 92 Oxygen Delivery Method Nasal Cannula Oxygen Flow Rate (L/min) 2 Weight Weight: 155 lb 13.869 oz Body Mass Index (BMI) 22.4 Physical Exam Const alert, oriented x3 and no apparent distress General Appearance: cooperative HEENT normocephalic and head/scalp atraumatic HEENT Narrative: congenitally deaf in both ears. Dry oral mucosa Neck no lymphadenopathy, supple and no JVD Resp normal respiratory effort, no retractions, no use of accessory muscles and clear to auscultation bilaterally Cardio regular rate, regular rhythm, S1 normal heart sound, S2 normal heart sound and no murmurs GI normal to inspection, nondistended, normoactive bowel sounds, soft to palpation and non-distended GI Narrative: NG tube in situ. PEG tube in place, moderate epigastric tenderness, no guarding or rebound tenderness Extremity normal to inspection, full ROM and no clubbing, cyanosis or edema Neuro oriented x3, CN's II-XII intact bilaterally and moves all extremities Sensorium / Orientation: awake and alert Coordination / Balance: sqakpj-[id number] test normal Speech: speech normal Motor Exam: strength 5/5 throughout Psych affect normal Results Lab / Micro Data Result Diagrams: 10/21/22 17:07 10/21/22 17:07 Labs: Laboratory Results - last 24 hr 10/21/22 17:07: WBC 14.5 H, RBC 2.70 L, Hgb 8.2 L, Hct 25.8 L, MCV 95.6 H, MCH 30.4, MCHC 31.8 L, RDW Std Deviation 44.6 H, RDW Coeff of Jenifer 12.8, Plt Count 441, MPV 10.2, Immature Gran % (Auto) 0.600, Neut % (Auto) 80.8 H, Lymph % (Auto) 9.0 L, Davison % (Auto) 6.8, Eos % (Auto) 1.6, Baso % (Auto) 1.2 H, Absolute Neuts (auto) 11.7 H, Absolute Lymphs (auto) 1.30, Nucleated RBC % 0 10/21/22 17:07: Sodium 139, Potassium 4.2, Chloride 100, Carbon Dioxide 29.0, Anion Gap 10, BUN 66 H, Creatinine 7.20 H, Estim Creat Clear Calc 11.18, Est GFR (MDRD) Af Amer 10 L, Est GFR (MDRD) Non-Af 8 L, BUN/Creatinine Ratio 9.2 L, Glucose 124 H, Calcium 9.6, Total Bilirubin 0.20, AST 34, ALT 46, Alkaline Phosphatase 125 H, Total Protein 7.9, Albumin 1.6 L, Globulin 6.3 H, Albumin/Globulin Ratio 0.3 L, Lipase 239 Radiology Impression Abdomen/Pelvis CT 10/21/22 16:30 IMPRESSION: 1. Resolving pulmonary infiltrates. 2. Stable PEG tube. 3. Thick-walled urinary bladder containing a Lopez catheter. The possibility of cystitis cannot be ruled out. 4. No acute abnormality or other major interval change. Electronically Signed: Jonas Peguero DO at 17:13 EST Reading Location ID and State: [address] [place] [address] Tel [phone], Service support , Chest X-Ray 10/21/22 16:45 IMPRESSION: No radiographic evidence of acute cardiopulmonary disease. Electronically Signed: Agustin Meraz MD at 16:56 EST , KUB X-Ray 10/21/22 20:36 IMPRESSION: NG tube as above. Electronically Signed: Jonas Peguero DO at 20:54 EST Reading Location ID and State: [facility] / [place] Tel [phone], Service support , Assessment & Plan Assessment/Plan (1) Nausea and vomiting: (2) Upper GI bleed: (3) ESRD on dialysis: PLAN: Plan #Abdominal pain due to Upper GI bleed * admit to med surg * hydrate gently with IVF in light of ESRD * Hb is 8.2 which is around his baseline * hold aspirin and plavix * consult GI * start on IV pantoprazole 40mg bid * trend hb * #CAD * was recently admitted for nonstemi. Had cardiac cath which showed multivessel disease * on medical management. Hold aspirin and plavix due to GI bleed * on high intensity statin * #TREVOR, now dialysis dependent * on on dialysis MWF * consult nephrology for dialysis * #TYpe 1 diabetes mellitus * had DKA during his recent admission * hold lantus as he is NPO * ISS. Accuchecks q6hrly * #Hypertension #Congenital deafness: communicates via [place]occan Sign Language. #Dysphagia * PEG tube in place * hold tube feeds as he is NPO now o/'a of upper GI bleed * #Macrocytic anemia * Hb is ~ 7-8 at baseline * will moitor * per nephro, would need erythropoietin and iron infusion on outpatient basis * DVT prophylaxis; SCDs. No anticoagulation due to GI bleed Code status: Full code * Per communication via comfort station supervisor in [place] Sign Language, patient stated he didnt want any CPR or intubation if needed. I sought to clarify this 3 times, and he kept insisting that he didnt want CPR or intubation. However, per documentation from SNF, patient is full code. * I am not entirely convinced that patient fully understood what was being asked about code status via the comfort station supervisor in [place] Sign Language, I will make patient full code as per the documentation from SNF * total time spent on code status discussion and clarifying the code status is 18 mins Charges/Coding Visit Charges Inpatient E&M: 28874 Init Hosp L3 Procedures Hospitalists Procedures: 90987 Advncd Care Plan 30 Min
[2022-10-21 23:01] VITALS: BMI 23.2
[2022-10-21 23:07] VITALS: BP 164/77; PULSE 101; RESP 18; TEMP 37.2; O2SAT 98
[2022-10-22] VITALS (14 sets, daily range): BP systolic 109–165; BP diastolic 73–98; PULSE 100–108; RESP 17–24; TEMP 36.2–37.2; O2SAT 3–97; BMI 23.2
--- NOTE | 2022-10-22 00:04 | RAD_ITS ---
STUDY: X-RAY - ABDOMEN/PELVIS REASON FOR EXAM: Male, 57 years old patient with nasogastric (NG) tube placement. TECHNIQUE: Single AP view of the abdomen / pelvis. COMPARISON: Radiograph of the abdomen dated October 21, 2022. FINDINGS: Normal visualized lung bases. There is an unremarkable bowel gas pattern. Nasogastric tube tip is located in the left upper quadrant. The sidehole is minimally beyond the gastroesophageal junction. There is no obvious organomegaly, mass, dilated bowel or pathologic calcifications. Most of the abdomen and pelvis are not imaged on this study. Normal visualized osseous structures. RAD/Abdomen Single View (Portable) IMPRESSION: The tip of the nasogastric tube is located in the stomach. Electronically Signed: Yara Reese MD at 1:28 EST ,
--- NOTE | 2022-10-22 00:24 | RAD_ITS ---
STUDY: X-RAY - ABDOMEN/PELVIS REASON FOR EXAM: Male, 57 years old patient presents for evaluation of nasogastric (NG) tube placement. TECHNIQUE: Single AP view of the abdomen / pelvis. COMPARISON: Radiograph of the abdomen dated October 22 2022 time stamped 12:06 AM. FINDINGS: Normal visualized lung bases. Tunneled catheter is visible with the tip of the catheter at the cavoatrial junction. There is an unremarkable bowel gas pattern. Nasogastric tube tip is located below the inferior abdomen image. Side hole is located distal to the gastroesophageal junction. There is no obvious organomegaly, mass, dilated bowel or pathologic calcifications. Most of the abdomen and pelvis are not imaged on this study. Normal visualized osseous structures. RAD/Abdomen Single View IMPRESSION: The sidehole of nasogastric tube is located caudal to the gastroesophageal junction. Electronically Signed: Yara Reese MD at 1:26 EST ,
[2022-10-22] MEDS: 0.9% Normal Saline 1,000 ML 60 ML IV (00:48)
[2022-10-22] MEDS: 0.9% Saline Lock 10 ML Syringe IV (00:48)
[2022-10-22 01:21] LABS: Bedside Glucose 218 mg/dL (74-106)
[2022-10-22 04:21] LABS: Absolute Lymphocyte Count 1.35 X10^3/uL (0.83-4.51); Absolute Neutrophil Count 10.4 X10^3/uL (2.0-7.7); Basophil# 0.17 X10^3/uL; Basophil% 1.3 % (0-1); Eosinophil# 0.42 X10^3/uL; Eosinophils% 3.2 % (0-5); Hematocrit 26.4 % (40-54); Hemoglobin 8.1 g/dL (13.0-16.5); Lymphocyte # 1.35 X10^3/ul (0.83-4.51); Lymphocyte % 10.2 % (19-41); Mean Corp Hgb Conc 30.7 g/dL (32-36); Mean Corpuscular Hgb 29.6 pg (27.0-32.0); Mean Corpuscular Volume 96.4 fL (80-94); Mean Platelet Vol. 10.1 fl (6.2-12.0); Monocyte# 0.85 X10^3/uL; Monocyte% 6.4 % (0-10); NRBC Flagged by Analyzer 0 % (0-5); Neutrophil # 10.38 X10^3/uL (2.7-7.7); Neutrophil % 78.4 % (47-70); Platelet Count 466 K/mm3 (150-450); RBC Distribution Width CV 12.9 % (11.6-14.6); RBC Distribution Width SD 44.8 fl (35.1-43.9); Red Blood Count 2.74 M/mm3 (4.6-6.2); White Blood Count 13.2 K/mm3 (4.4-11.0)
[2022-10-22 04:59] LABS: Anion Gap 12 (5-15); BUN 70 mg/dL (7-18); Calcium,Total 9.1 mg/dL (8.5-10.1); Chloride 100 mmol/L (98-107); EST Glomerular Filtration Rate 8 mL/min (>60); Est Glom Filt Rate - Afr Amer 9 mL/min (>60); Estimated Creatinine Clearance 9.65 ml/min; Glucose 248 mg/dL (74-106); Potassium 4.5 mmol/L (3.5-5.1); Sodium Level 139 mmol/L (136-145)
--- NOTE | 2022-10-22 05:24 | RAD_ITS ---
STUDY: X-RAY - ABDOMEN/PELVIS REASON FOR EXAM: Male, 57 years old patient had pulled on nasogastric (NG) tube. Tube not at original shmuel TECHNIQUE: Single AP view of the abdomen / pelvis. COMPARISON: Radiograph the abdomen dated October 22 2022 time stamped 12:14 AM. FINDINGS: Normal visualized lung bases. There is an unremarkable bowel gas pattern. Enteric tube is present and the tip is located just beyond the gastroesophageal junction. The sidehole is probably still in the esophagus. This is different than the previous study. There is no obvious organomegaly, mass, dilated bowel or pathologic calcifications. Pelvis is not imaged on this study. Normal visualized osseous structures. RAD/Abdomen Single View IMPRESSION: The nasogastric tube has been partially withdrawn with the side hole in distal esophagus. This should be repositioned. Electronically Signed: Yara Reese MD at 6:07 EST ,
--- NOTE | 2022-10-22 06:44 | RAD_ITS ---
STUDY: X-RAY - ABDOMEN/PELVIS REASON FOR EXAM: Male, 57 years old patient with nasogastric (NG) placement. Patient pulled it out and had to reinsert it. TECHNIQUE: Single AP view of the abdomen / pelvis. COMPARISON: None. FINDINGS: Bronchovascular markings appear prominent in both lungs. A left-sided tunnel catheter is present with the tip at the cavoatrial junction. There is an unremarkable bowel gas pattern. Enteric tube is present with the tip in the right upper quadrant probably in distal stomach. There is no obvious organomegaly, mass, dilated bowel or pathologic calcifications. Most of the abdomen and pelvis are not imaged on this study. Normal visualized osseous structures. RAD/Abdomen Single View (Portable) IMPRESSION: Appropriate positioning of nasogastric tube. Electronically Signed: Yara Reese MD at 8:00 EST ,
[2022-10-22 07:25] LABS: Bedside Glucose 262 mg/dL (74-106)
--- NOTE | 2022-10-22 08:01 | CON.PCM.RE_ITS ---
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 The patient has had a progressive loss of renal function and was started on dialysis on 09/22/2022.? The patient returns to the hospital on 08/2023 with abdominal pain and is diagnosed with upper GI bleed. Nephrology is following for dialysis dependent TREVOR on CKD. Acute kidney injury on chronic kidney disease, unspecified stage. The patient was started on dialysis on 09/22/2022 because of refractory acute hypoxic respiratory failure due to volume overload, acidosis and severe azotemia. Baseline renal function is unclear although there is a notation that serum creatinine was 1.60 mg/dL in 2020.? The last available serum creatinine in [facility] was from 04/22/2014 at 1.3 mg/dL. Last available outpatient serum creatinine prior to the last admission was from February 2021 at 1.6 mg/dL. Suspect the patient has underlying diabetic kidney disease.? He is proteinuric in nephrotic range and has had longstanding, poorly controlled diabetes with retinopathy. It is possible that he has ESRD secondary to progression of progressive diabetic kidney disease in the setting of poorly controlled diabetes. However, we were never able to biopsy the patient for definitive diagnosis and prognosis because of his inability to tolerate the procedure. So far, there is no evidence of renal recovery.? The patient remains dialysis dependent with oliguria and increasing azotemia between dialysis. The plan is to pursue kidney biopsy if there is no recovery of renal function after 1 month on dialysis.? This can be done as an outpatient. For now, we will continue dialysis on MWF schedule. He dialyzes at [facility] as outpatient. There is no need for dialysis today. I will arrange for dialysis on his usual schedule tomorrow. Hypertension. BP was as high as 207/124 on 09/16/2022. BP has been more reasonably controlled prior to discharge charge on 10/19/2022.? He was discharged on hydralazine 50 mg 3 times daily, carvedilol 25 mg twice daily, and amlodipine 5 mg daily. He is currently off of antihypertensive presumably because he is n.p.o. Ultrafiltration with dialysis tomorrow will help to manage BP. I would restart antihypertensive when he is no longer NPO. For now, we can use as needed parenteral antihypertensive such as labetalol for SBP above 180 or DBP above 120. CAD with heart failure with reduced ejection fraction presumably from systolic dysfunction related to ischemia. The patient appears to be compensated. Will continue to remove fluid with dialysis. Restart beta-gwyn and hydralazine/nitrate when able. Anemia. Hemoglobin is low but stable at 8.1 g/dL today. This is actually better than the day of last discharge (10/19/2022) when his hemoglobin was 7.2 g/dL. We will start IV iron and INOCENCIO with dialysis at outpatient kidney center. Nephrology plan will be discussed with Dr. Goode HPI Consult Data Date of Consult: 10/23/22 HPI Narrative Reason for Consultation: Dialysis dependent TREVOR/CKD HPI Narrative: SCOTT BUTLER, is a 57-year-old man known to our service with type 1 diabetes mellitus, hypertension, CAD, congenital deafness, prior stroke, and chronic kidney disease who was recently admitted to this hospital between 09/16/2022 until 10/19/2022 for DKA, NSTEMI, acute hypoxic respiratory failure requiring mechanical ventilator, and acute kidney injury on chronic kidney disease. Our service cared for the patient during this admission because of TREVOR on CKD. The patient was started on hemodialysis on 09/21/2022 because of severe azotemia with serum creatinine of 8.92 mg/dL. Serum creatinine prior to the last admission was from February 2021 at 1.6 mg/dL. Given poor control of diabetes, it is possible that we are seeing progression of CKD to ESRD although the patient did not get a kidney biopsy during the last admission because of his inability to lay flat and because of anxiety that prevented us from doing a biopsy safely. The patient is maintained on dialysis on [facility] schedule as outpatient. He is dialyzing at [facility] [place]. The patient returns to the hospital on 10/21/2022 because of abdominal pain. He was diagnosed with upper GI bleed. Nephrology is asked to see the patient to help manage dialysis dependent TREVOR on CKD. The patient denies current chest pain or dyspnea. Abdominal pain is under control. he denies current nausea or vomiting. there has been no diarrhea since admission. He denies edema. [facility] Medical History (Updated 10/22/22 @ 11:[address] Steel Friend, DO) Acute renal failure Anemia CAD (coronary artery disease) CKD (chronic kidney disease) Congenital deafness Deaf Decreased left ventricular systolic function Diabetes HTN (hypertension) Hyperlipidemia NSTEMI (non-ST elevated myocardial infarction) On mechanically assisted ventilation Stroke Vision problem Home Medications dorzolamide-timolol (PF) 2 %-0.5 % eye drops in a dropperette 1 drp ophthalmic (eye) BID eyes 01/04/20 [History Last Taken 10/21/22] latanoprost 0.005 % eye drops 1 drp ophthalmic (eye) DAILY eyes 01/04/20 [History Last Taken 10/21/22] pen needle, diabetic 31 gauge x 5/16 (Comfort EZ Pen Hulbert) #1,200 ea 01/04/20 [History Last Taken Unknown] blood sugar diagnostic (Accu-Chek Guide test strips) #100 ea 03/07/20 [Rx Last Taken Unknown] amlodipine 5 mg tablet 5 mg feeding tube DAILY BP 09/14/22 [History Last Taken 10/21/22] atorvastatin 40 mg tablet 40 mg G-tube QHS #30 tabs 10/19/22 [Rx Last Taken 10/20/22] carvedilol 25 mg tablet 25 mg G-tube BID #0 tabs 10/19/22 [Rx Last Taken 10/20/22] fluconazole 40 mg/mL oral suspension 100 mg (2.5 mL) G-tube DAILY 4 days #10 mL 10/19/22 [Rx Last Taken 10/21/22] hydralazine 50 mg tablet 50 mg G-tube TID #30 tabs 10/19/22 [Rx Last Taken 10/20/22] insulin glargine-yfgn 100 unit/mL (3 mL) subcutaneous pen 30 unit (0.3 mL) subcut 0600,1800 #0 mL 10/19/22 [Rx Last Taken 10/21/22] ondansetron 4 mg disintegrating tablet 4 mg PO Q6H PRN nausea and vomiting #30 tabs 10/19/22 [Rx Last Taken 10/21/22] polyethylene glycol 3350 17 gram oral powder packet 17 g PO BID #100 ea 10/19/22 [Rx Last Taken Unknown] aspirin 81 mg tablet,delayed release 81 mg feeding tube BREAKFAST 10/21/22 [History Last Taken 10/21/22] clopidogrel 75 mg tablet 75 mg feeding tube DAILY 10/21/22 [History Last Taken 10/21/22] furosemide 40 mg tablet 40 mg feeding tube SuTuThSa 10/21/22 [History Last Taken 10/20/22] insulin lispro 100 unit/mL subcutaneous pen (Humalog KwikPen (U-100) Insulin) See Protocol subcut Q6H DM 10/21/22 [History Last Taken 10/21/22] isosorbide dinitrate 10 mg tablet 10 mg feeding tube BID 10/21/22 [History Last Taken 10/21/22] omeprazole 20 mg delayed release,disintegrating tablet 20 mg PO DAILY GERD 10/21/22 [History Last Taken 10/21/22] Allergy/AdvReac Type Severity Reaction Status Date / Time No Known Allergies Allergy Verified 09/15/22 10:39 Family History Mother Diabetes Deaf Social History Smoking Status: Never smoker alcohol intake: never substance use type: does not use what type of physical activity do you participate in: none ROS ROS Narrative 07/20 ROS was done and is otherwise noncontributory aside from what is already documented in HPI. Physical Exam Narrative General: Alert and oriented x3. No apparent distress. HEENT: Normocephalic, atraumatic. Mucous membrane moist. PERRLA, EOMI. The patient is deaf and cannot hear. Neck: Supple, no JVD. Heart: Normal S1, S2. No rubs, murmurs or gallops. Lungs: Clear to auscultation bilaterally. Abdomen: Nondistended, normal bowel sound, soft, epigastric tenderness on palpation without voluntary guarding or rebound. Extremities: No clubbing, cyanosis, or edema. Musculoskeletal: Full range of motion, no joint swelling. Skin: Warm and dry, no rash. Neurologic: No focal neurologic deficit. Cranial nerve II through VII along with cranial nerve IX to XII are intact. Cannot assess cranial nerve VIII because of lack of hearing. Psychiatric: Normal mood and affect. Lab / Micro Data Result Diagrams: 10/23/22 03:35 10/23/22 03:35 Labs: Laboratory Results - last 24 hr 10/21/22 17:07: WBC 14.5 H, RBC 2.70 L, Hgb 8.2 L, Hct 25.8 L, MCV 95.6 H, MCH 30.4, MCHC 31.8 L, RDW Std Deviation 44.6 H, RDW Coeff of Jenifer 12.8, Plt Count 441, MPV 10.2, Immature Gran % (Auto) 0.600, Neut % (Auto) 80.8 H, Lymph % (Auto) 9.0 L, [place] % (Auto) 6.8, Eos % (Auto) 1.6, Baso % (Auto) 1.2 H, Absolute Neuts (auto) 11.7 H, Absolute Lymphs (auto) 1.30, Nucleated RBC % 0 10/21/22 17:07: Sodium 139, Potassium 4.2, Chloride 100, Carbon Dioxide 29.0, Anion Gap 10, BUN 66 H, Creatinine 7.20 H, Estim Creat Clear Calc 11.18, Est GFR (MDRD) Af Amer 10 L, Est GFR (MDRD) Non-Af 8 L, BUN/Creatinine Ratio 9.2 L, Glucose 124 H, Calcium 9.6, Total Bilirubin 0.20, AST 34, ALT 46, Alkaline Phosphatase 125 H, Total Protein 7.9, Albumin 1.6 L, Globulin 6.3 H, Albumin/Krystina bulin Ratio 0.3 L, Lipase 239 10/22/22 00:54: POC Glucose 218 H 10/22/22 04:00: WBC 13.2 H, RBC 2.74 L, Hgb 8.1 L, Hct 26.4 L, MCV 96.4 H, MCH 29.6, MCHC 30.7 L, RDW Std Deviation 44.8 H, RDW Coeff of Jenfier 12.9, Plt Count 466 H, MPV 10.1, Immature Gran % (Auto) 0.500, Neut % (Auto) 78.4 H, Lymph % (Au to) 10.2 L, [place] % (Auto) 6.4, Eos % (Auto) 3.2, Baso % (Auto) 1.3 H, Absolute Neuts (auto) 10.4 H, Absolute Lymphs (auto) 1.35, Nucleated RBC % 0 10/22/22 04:00: Sodium 139, Potassium 4.5, Chloride 100, Carbon Dioxide 27.0, Anion Gap 12, BUN 70 H, Creatinine 7.80 H*, Estim Creat Clear Calc 9.65, Est GFR (MDRD) Af Amer 9 L, Est GFR (MDRD) Non-Af 8 L, BUN/Creatinine Ratio 9.0 L, Glucose 248 H, Calcium 9.1 10/22/22 06:41: POC Glucose 262 H Radiology Impression Abdomen/Pelvis CT 10/21/22 16:30 IMPRESSION: 1. Resolving pulmonary infiltrates. 2. Stable PEG tube. 3. Thick-walled urinary bladder containing a Lopez catheter. The possibility of cystitis cannot be ruled out. 4. No acute abnormality or other major interval change. Electronically Signed: Jonas Peguero DO at 17:13 EST Reading Location ID and State: [facility] / [place] Tel [phone], Service support , Chest X-Ray 10/21/22 16:45 IMPRESSION: No radiographic evidence of acute cardiopulmonary disease. Electronically Signed: Agustin Meraz MD at 16:56 EST , KUB X-Ray 10/21/22 20:36 IMPRESSION: NG tube as above. Electronically Signed: Jonas Peguero DO at 20:54 EST Reading Location ID and State: [facility] / [place] Tel [phone], Service support , KUB X-Ray 10/22/22 00:04 IMPRESSION: The tip of the nasogastric tube is located in the stomach. Electronically Signed: Yara Reese MD at 1:28 EST Reading Location ID and State: [id number] / [place] , Service support , KUB X-Ray 10/22/22 00:24 IMPRESSION: The sidehole of nasogastric tube is located caudal to the gastroesophageal junction. Electronically Signed: Yara Reese MD at 1:26 EST Reading Location ID and State: [employer] / [place] , Service support , KUB X-Ray 10/22/22 05:24 IMPRESSION: The nasogastric tube has been partially withdrawn with the side hole in distal esophagus. This should be repositioned. Electronically Signed: Yara Reese MD at 6:07 EST Reading Location ID and State: [id number] / [place] , Service support ,
[2022-10-22] MEDS: Insulin Lispro 100 UNIT/ML INSULN.PEN SC ×3 (08:24→23:23)
--- NOTE | 2022-10-22 08:39 | PN.HOSP_ITS ---
Subjective Subjective Resting in bed, did have some right-sided abdominal pain, NG tube in place with minimal maroon output Objective Data Objective Data Vital Signs: Vital Signs Temp Pulse Resp BP Pulse Ox O2 Del Method O2 Flow Rate 98.4 F 104 H 24 H 153/91 H 97 Nasal Cannula 2 10/22/22 08:07 10/22/22 08:07 10/22/22 08:07 10/22/22 08:07 10/22/22 08:07 10/22/22 08:07 10/22/22 08:07 Oxygen Flow Rate (L/min) 2 Oxygen Delivery Method Nasal Cannula Weight: 67.2 kg Body Mass Index (BMI) 23.2 Intake & Output: Intake and Output for Last 24 Hours 10/20/22 10/21/22 10/22/22 23:59 23:59 23:59 Intake Total 110 / 110 30 / 30 Output Total 600 / 600 Balance 110 / -190 -570 / -570 Lab / Micro Data Result Diagrams: 10/22/22 04:00 10/22/22 04:00 Labs: Laboratory Results - last 24 hr 10/21/22 17:07: WBC 14.5 H, RBC 2.70 L, Hgb 8.2 L, Hct 25.8 L, MCV 95.6 H, MCH 30.4, MCHC 31.8 L, RDW Std Deviation 44.6 H, RDW Coeff of Jenifer 12.8, Plt Count 441, MPV 10.2, Immature Gran % (Auto) 0.600, Neut % (Auto) 80.8 H, Lymph % (Auto) 9.0 L, [place] % (Auto) 6.8, Eos % (Auto) 1.6, Baso % (Auto) 1.2 H, Absolute Neuts (auto) 11.7 H, Absolute Lymphs (auto) 1.30, Nucleated RBC % 0 10/21/22 17:07: Sodium 139, Potassium 4.2, Chloride 100, Carbon Dioxide 29.0, Anion Gap 10, BUN 66 H, Creatinine 7.20 H, Estim Creat Clear Calc 11.18, Est GFR (MDRD) Af Amer 10 L, Est GFR (MDRD) Non-Af 8 L, BUN/Creatinine Ratio 9.2 L, Glucose 124 H, Calcium 9.6, Total Bilirubin 0.20, AST 34, ALT 46, Alkaline Phosphatase 125 H, Total Protein 7.9, Albumin 1.6 L, Globulin 6.3 H, Albumin/Globulin Ratio 0.3 L, Lipase 239 10/22/22 00:54: POC Glucose 218 H 10/22/22 04:00: WBC 13.2 H, RBC 2.74 L, Hgb 8.1 L, Hct 26.4 L, MCV 96.4 H, MCH 29.6, MCHC 30.7 L, RDW Std Deviation 44.8 H, RDW Coeff of Jenifer 12.9, Plt Count 466 H, MPV 10.1, Immature Gran % (Auto) 0.500, Neut % (Auto) 78.4 H, Lymph % (Auto) 10.2 L, [place] % (Auto) 6.4, Eos % (Auto) 3.2, Baso % (Auto) 1.3 H, Absolute Neuts (auto) 10.4 H, Absolute Lymphs (auto) 1.35, Nucleated RBC % 0 10/22/22 04:00: Sodium 139, Potassium 4.5, Chloride 100, Carbon Dioxide 27.0, Anion Gap 12, BUN 70 H, Creatinine 7.80 H*, Estim Creat Clear Calc 9.65, Est GFR (MDRD) Af Amer 9 L, Est GFR (MDRD) Non-Af 8 L, BUN/Creatinine Ratio 9.0 L, Glucose 248 H, Calcium 9.1 10/22/22 06:41: POC Glucose 262 H Radiography Diagnostic Testing: Radiology Impression Abdomen/Pelvis CT 10/21/22 16:30 IMPRESSION: 1. Resolving pulmonary infiltrates. 2. Stable PEG tube. 3. Thick-walled urinary bladder containing a Lopez catheter. The possibility of cystitis cannot be ruled out. 4. No acute abnormality or other major interval change. Electronically Signed: Jonas Peguero DO at 17:13 EST , Chest X-Ray 10/21/22 16:45 IMPRESSION: No radiographic evidence of acute cardiopulmonary disease. Electronically Signed: Agustin Meraz MD at 16:56 EST Reading Location ID and State: [facility] / [place] Tel , Service support , KUB X-Ray 10/21/22 20:36 IMPRESSION: NG tube as above. Electronically Signed: Jonas Peguero DO at 20:54 EST , KUB X-Ray 10/22/22 00:04 IMPRESSION: The tip of the nasogastric tube is located in the stomach. Electronically Signed: Yara Reese MD at 1:28 EST , KUB X-Ray 10/22/22 00:24 IMPRESSION: The sidehole of nasogastric tube is located caudal to the gastroesophageal junction. Electronically Signed: Yara Reese MD at 1:26 EST , KUB X-Ray 10/22/22 05:24 IMPRESSION: The nasogastric tube has been partially withdrawn with the side hole in distal esophagus. This should be repositioned. Electronically Signed: Yara Reese MD at 6:07 EST , KUB X-Ray 10/22/22 06:44 IMPRESSION: Appropriate positioning of nasogastric tube. Electronically Signed: Yara Reese MD at 8:00 EST , Physical Exam Const Constitutional Narrative: Laying in bed HEENT normocephalic and head/scalp atraumatic Eyes Eyes Narrative: EOM grossly intact, anicteric Neck supple Resp normal respiratory effort Cardio regular rate and regular rhythm GI GI Narrative: Some tenderness on palpation on right side of abdomen, no guarding or rigidity Extremity Extremity Narrative: No edema appreciated Neuro moves all extremities Neuro Narrative: No overt focal deficits appreciated Psych Psych Narrative: Cooperative Assessment & Plan Assessment/Plan (1) TREVOR (acute kidney injury): (2) CKD (chronic kidney disease): (3) Benign essential hypertension: (4) Decreased left ventricular systolic function: (5) Macrocytic anemia: (6) 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 He was recently admitted for prolonged period of time for NSTEMI, TREVOR on dialysis, type 1 diabetes with multiple episodes of DKA, and acute hypoxic respiratory failure and had required intubation and subsequent extubation 09/29 and also had dialysis started 09/22 and has remained dependent on that and he was [facility]. Yesterday he had abdominal pain and emesis that had been reported to be carrasco- colored but in the ED NG tube showed maroon-colored stomach aspirate. He had denied any diarrhea or hematemesis. #GI bleed, likely upper Had maroon-colored stomach aspirate, NG tube placed Does have a history of peptic ulcer disease?on Protonix every 12 Monitor CBC GI consulted Aspirin and Plavix held Presently going for scope with GI #Abnormal urine Per staff has had hansen colored urine, also on CT had thick-walled urinary bladder which cannot rule out cystitis UA with blood and glucose as well as protein but no bacteria or nitrite, culture pending Does have slightly elevated white count Will check Pro-José Low threshold to start antibiotics if needed #Coronary artery disease with multivessel disease Supposed to follow-up outpatient for intervention eval as he needed intervention at a tertiary facility but none were excepting and he was deemed stable for outpatient follow-up for this from a cardiac perspective Aspirin and Plavix have been held Resume beta-gwyn and nitrates when able to take p.o. #TREVOR on continued hemodialysis Wednesday/Wednesday/Wednesday Nephrology consulted, to have dialysis tomorrow #Type 1 diabetes mellitus His long-acting was held due to being n.p.o., will continue to give low doses of sliding scale as needed as due to his type I status he quickly goes into DKA without even small amount of insulin in his system #Congenital deafness Communicates via ASL #Dysphagia PEG tube in place Tube feeds are n.p.o. at this time #Chronic microcytic anemia Hemoglobin is 7?8 at baseline Will need EPO and iron infusion on an outpatient basis Has not required packed red blood cell transfusion at this time #DVT ppx: SCDs given bleed Susu Goode MD Charges/Coding Visit Charges Inpatient E&M: 96568 Subs Hosp L2
[2022-10-22 08:48] LABS: Bacteria 0 SEEN /hpf (None Seen); Mucous, Urine 0 SEEN /hpf (<or=2+); Squamous Epithelial Cells - UA 0 SEEN /hpf (0-5)
[2022-10-22 08:49] LABS: Color, Urine Red (Yellow); Glucose, Dipstick 1000 mg/dl (Normal); Ketone-Dipstick 15 mg/dl (Negative); Leukocyte Esterase-Dipstick 25 /ul (Negative); Nitrite-Dipstick Negative (Negative); Occult Blood-Urine 250 /ul (Negative); Protein-Dipstick 500 mg/dl (Negative); Specific Gravity, Urine 1.015 (1.002-1.030); Urine Bilirubin Dipstick Negative (Negative); Urine Clarity Cloudy (Clear); Urine Urobilinogen Normal (Normal)
[2022-10-22 09:05] LABS: Red Blood Cells-Urine > 100 SEEN /hpf (0-5)
[2022-10-22 09:08] LABS: White Blood Cells 0-5 SEEN /hpf (0-5)
[2022-10-22] MEDS: Latanoprost 0.005% 1 Bottle 1 DRP OPHTHALMIC (09:24)
[2022-10-22 10:08] LABS: Procalcitonin 0.67 ng/mL (0.00-0.09)
--- NOTE | 2022-10-22 10:11 | NURSING ---
pre-op assessment done to best ability. pt nods yes when asked if has dentures however, upon looking in his mouth, none seen, just teeth.
--- NOTE | 2022-10-22 10:12 | NURSING ---
no scd machines available.
[2022-10-22 10:46] LABS: Bedside Glucose 238 mg/dL (74-106)
--- NOTE | 2022-10-22 11:48 | CON.PCM.GI_ITS ---
HPI Consult Data Date of Consult: 10/21/22 HPI Narrative Reason for Consultation: GI bleeding HPI Narrative: SCOTT BUTLER, is a 57 M with a past medical history as outlined who presents via the ED on 10/21/2022 with a complaint of abdominal pain and vomiting.? Of note patient has congenital deafness and history was taken with the help of the mop maker via flight operations inspector service.? Patient was recently discharged from the hospital after being managed for hypoglycemia as well as non-STEMI and ischemic cardiomyopathy and TREVOR.? He had cardiac cath during his recent admission which shows multivessel disease and plan was for medical management.? He also had TREVOR and eventually required hemodialysis on Wednesdays via tunneled dialysis catheter.? He was still hemodialysis dependent at time of discharge.? He was discharged to the long-term on 10/19/2022 and presents today with a complaint of abdominal pain.? He said the abdominal pain started today.? He had associated vomiting and according to him the emesis was carrasco-colored but when he came in the ED, NG tube placed showed maroon-colored stomach aspirate.? He denied any diarrhea or any hematemesis.? He denied any dark stools.? He denied any history of peptic ulcer disease and denies taking any fygn-saf-ghuclrq pain medication. He had a peg tube placed last month for esophageal dysphagia and failure to thrive. [facility] Medical History (Updated 10/22/22 @ 11:[address] Steel Friend, DO) Acute renal failure Anemia CAD (coronary artery disease) CKD (chronic kidney disease) Congenital deafness Deaf Decreased left ventricular systolic function Diabetes HTN (hypertension) Hyperlipidemia NSTEMI (non-ST elevated myocardial infarction) On mechanically assisted ventilation Stroke Vision problem Home Medications dorzolamide-timolol (PF) 2 %-0.5 % eye drops in a dropperette 1 drp ophthalmic (eye) BID eyes 01/04/20 [History Last Taken 10/21/22] latanoprost 0.005 % eye drops 1 drp ophthalmic (eye) DAILY eyes 01/04/20 [History Last Taken 10/21/22] pen needle, diabetic 31 gauge x 5/16 (Comfort EZ Pen [place]) #1,200 ea 01/04/20 [History Last Taken Unknown] blood sugar diagnostic (Accu-Chek Guide test strips) #100 ea 03/07/20 [Rx Last Taken Unknown] amlodipine 5 mg tablet 5 mg feeding tube DAILY BP 09/14/22 [History Last Taken 10/21/22] atorvastatin 40 mg tablet 40 mg G-tube QHS #30 tabs 10/19/22 [Rx Last Taken 10/20/22] carvedilol 25 mg tablet 25 mg G-tube BID #0 tabs 10/19/22 [Rx Last Taken 10/20/22] fluconazole 40 mg/mL oral suspension 100 mg (2.5 mL) G-tube DAILY 4 days #10 mL 10/19/22 [Rx Last Taken 10/21/22] hydralazine 50 mg tablet 50 mg G-tube TID #30 tabs 10/19/22 [Rx Last Taken 10/20/22] insulin glargine-yfgn 100 unit/mL (3 mL) subcutaneous pen 30 unit (0.3 mL) subcut 0600,1800 #0 mL 10/19/22 [Rx Last Taken 10/21/22] ondansetron 4 mg disintegrating tablet 4 mg PO Q6H PRN nausea and vomiting #30 tabs 10/19/22 [Rx Last Taken 10/21/22] polyethylene glycol 3350 17 gram oral powder packet 17 g PO BID #100 ea 10/19/22 [Rx Last Taken Unknown] aspirin 81 mg tablet,delayed release 81 mg feeding tube BREAKFAST 10/21/22 [History Last Taken 10/21/22] clopidogrel 75 mg tablet 75 mg feeding tube DAILY 10/21/22 [History Last Taken 10/21/22] furosemide 40 mg tablet 40 mg feeding tube SuTuThSa 10/21/22 [History Last Taken 10/20/22] insulin lispro 100 unit/mL subcutaneous pen (Humalog KwikPen (U-100) Insulin) See Protocol subcut Q6H DM 10/21/22 [History Last Taken 10/21/22] isosorbide dinitrate 10 mg tablet 10 mg feeding tube BID 10/21/22 [History Last Taken 10/21/22] omeprazole 20 mg delayed release,disintegrating tablet 20 mg PO DAILY GERD 10/21/22 [History Last Taken 10/21/22] Allergy/AdvReac Type Severity Reaction Status Date / Time No Known Allergies Allergy Verified 09/15/22 10:39 Family History Mother Diabetes Deaf Social History Smoking Status: Never smoker alcohol intake: never substance use type: does not use what type of physical activity do you participate in: none ROS ROS Narrative 07/20 ROS was done and is otherwise noncontributory aside from what is already documented in HPI. Physical Exam Const Constitutional Narrative: Laying in bed HEENT normocephalic and head/scalp atraumatic Eyes Eyes Narrative: EOM grossly intact, anicteric Neck supple Resp normal respiratory effort Cardio regular rate and regular rhythm GI GI Narrative: Some tenderness on palpation on right side of abdomen, no guarding or rigidity Extremity Extremity Narrative: No edema appreciated Neuro moves all extremities Neuro Narrative: No overt focal deficits appreciated Psych Psych Narrative: Cooperative Medical Records Data Medical Nutrition Assessment Dietitian: Malnutrition Criteria Met Start: 10/22/22 11 :20 Freq: Status: Active Protocol: Document 10/22/22 11:20 (Rec: 10/22/22 11:20 [id number]) Nutrition Malnutrition Evidence of Malnutrition Exists Yes Malnutrition (severe): Acute Illness/Injury Evidenced By Suboptimal Energy Intake ( Severe),Weight Loss (Severe) Clinical Problem Acute Disease or Injury Related Malnutrition Etiology acute severe malnutrition related to inadequate energy intake d/t dysphagia, intolerance of enteral nutrition Signs/Symptoms as evidenced by unintentional wt loss of 13.6kg/17% x 1 month; estimated PO intake meeting <50% of estimated energy needs for > 5 days over past 1 month Status Active Problem Recommendation Dietitian Recommendations/Changes Pt is chronically NPO d/t dysphagia. As medically appropriate, recommend resume enteral nutrition via PEG- Vital AF 1. 2 at goal rate of 60mL/hour w/ 50mL H2O flush every 4 hours to provide 1728 calories, 108 g protein, and 1467mL total fluid/day. Would start at 15mL /hour and increase slowly by 10mL/hour every 12 hours as tolerated until goal rate is achieved. Lab / Micro Data Result Diagrams: 10/22/22 04:00 10/22/22 04:00 Labs: Laboratory Results - last 24 hr 10/21/22 17:07: WBC 14.5 H, RBC 2.70 L, Hgb 8.2 L, Hct 25.8 L, MCV 95.6 H, MCH 30.4, MCHC 31.8 L, RDW Std Deviation 44.6 H, RDW Coeff of Jenifer 12.8, Plt Count 441, MPV 10.2, Immature Gran % (Auto) 0.600, Neut % (Auto) 80.8 H, Lymph % (Auto) 9.0 L, [place] % (Auto) 6.8, Eos % (Auto) 1.6, Baso % (Auto) 1.2 H, Absolute Neuts (auto) 11.7 H, Absolute Lymphs (auto) 1.30, Nucleated RBC % 0 10/21/22 17:07: Sodium 139, Potassium 4.2, Chloride 100, Carbon Dioxide 29.0, Anion Gap 10, BUN 66 H, Creatinine 7.20 H, Estim Creat Clear Calc 11.18, Est GFR (MDRD) Af Amer 10 L, Est GFR (MDRD) Non-Af 8 L, BUN/Creatinine Ratio 9.2 L, Glucose 124 H, Calcium 9.6, Total Bilirubin 0.20, AST 34, ALT 46, Alkaline Phosphatase 125 H, Total Protein 7.9, Albumin 1.6 L, Globulin 6.3 H, Albumin/Globulin Ratio 0.3 L, Lipase 239 10/22/22 00:54: POC Glucose 218 H 10/22/22 04:00: WBC 13.2 H, RBC 2.74 L, Hgb 8.1 L, Hct 26.4 L, MCV 96.4 H, MCH 29.6, MCHC 30.7 L, RDW Std Deviation 44.8 H, RDW Coeff of Jenifer 12.9, Plt Count 466 H, MPV 10.1, Immature Gran % (Auto) 0.500, Neut % (Auto) 78.4 H, Lymph % (Auto) 10.2 L, [place] % (Auto) 6.4, Eos % (Auto) 3.2, Baso % (Auto) 1.3 H, Absolute Neuts (auto) 10.4 H, Absolute Lymphs (auto) 1.35, Nucleated RBC % 0 10/22/22 04:00: Sodium 139, Potassium 4.5, Chloride 100, Carbon Dioxide 27.0, Anion Gap 12, BUN 70 H, Creatinine 7.80 H*, Estim Creat Clear Calc 9.65, Est GFR (MDRD) Af Amer 9 L, Est GFR (MDRD) Non-Af 8 L, BUN/Creatinine Ratio 9.0 L, Glucose 248 H, Calcium 9.1 10/22/22 04:00: Procalcitonin 0.67 H 10/22/22 06:41: POC Glucose 262 H 10/22/22 08:45: Urine Color Red, Urine Clarity Cloudy, Urine pH 8.0, Ur Specific [place] 1.015, Urine Protein 500 H, Urine Glucose (UA) 1000 H, Urine Ketones 15 H, Urine Occult Blood 250 H, Urine Nitrite Negative, Urine Bilirubin Negative, Urine Urobilinogen Normal, Ur Leukocyte Esterase 25 H, Urine RBC > 100 SEEN, Urine WBC 0-5 SEEN, Ur Squamous Epith Cells 0 SEEN, Urine Bacteria 0 SEEN, Urine Mucus 0 SEEN 10/22/22 10:18: POC Glucose 238 H Radiology Impression Abdomen/Pelvis CT 10/21/22 16:30 IMPRESSION: 1. Resolving pulmonary infiltrates. 2. Stable PEG tube. 3. Thick-walled urinary bladder containing a Lopez catheter. The possibility of cystitis cannot be ruled out. 4. No acute abnormality or other major interval change. Electronically Signed: Jonas Peguero DO at 17:13 EST Reading Location ID and State: [facility] / [place] Tel [phone], Service support , Chest X-Ray 10/21/22 16:45 IMPRESSION: No radiographic evidence of acute cardiopulmonary disease. Electronically Signed: Agustin Meraz MD at 16:56 EST Reading Location ID and State: [facility] / [place] Tel , Service support , KUB X-Ray 10/21/22 20:36 IMPRESSION: NG tube as above. Electronically Signed: Jonas Peguero DO at 20:54 EST Reading Location ID and State: [facility] / [place] Tel [phone], Service support , KUB X-Ray 10/22/22 00:04 IMPRESSION: The tip of the nasogastric tube is located in the stomach. Electronically Signed: Yara Reese MD at 1:28 EST Reading Location ID and State: [id number] / [employer] , Service support , KUB X-Ray 10/22/22 00:24 IMPRESSION: The sidehole of nasogastric tube is located caudal to the gastroesophageal junction. Electronically Signed: Yara Reese MD at 1:26 EST Reading Location ID and State: [id number] / [employer] , Service support , KUB X-Ray 10/22/22 05:24 IMPRESSION: The nasogastric tube has been partially withdrawn with the side hole in distal esophagus. This should be repositioned. Electronically Signed: Yara Reese MD at 6:07 EST Reading Location ID and State: [id number] / [employer] , Service support , KUB X-Ray 10/22/22 06:44 IMPRESSION: Appropriate positioning of nasogastric tube. Electronically Signed: Yara Reese MD at 8:00 EST Reading Location ID and State: [id number] / [employer] , Service support , Assessment & Plan Assessment/Plan (1) GI bleed: PLAN: He will undergo an upper endoscopy to evaluate the upper GI tract. Continue NPO, PPI and IV fluids. Charges/Coding Visit Charges Inpatient E&M: 32331 Init Hosp L2
--- NOTE | 2022-10-22 13:44 | OP.EGD_ITS ---
Patient Name: Antonio Saldivar Procedure Date: 10/22/2022 12:44 PM Date of : 1965 Age: 57 Procedure: Upper GI endoscopy Indications: Dysphagia Providers: Damián Deleon DO Medicines: Monitored Anesthesia Care Patient Profile: This is a 57 year old male. Refer to note in patient chart for documentation of history and physical. Patient has symptoms of acute dysphagia. Complications: No immediate complications. Procedure: Pre-Anesthesia Assessment: - Prior to the procedure, a History and Physical was performed, and patient medications and allergies were reviewed. The patient is competent. The risks and benefits of the procedure and the sedation options and risks were discussed with the patient. All questions were answered and informed consent was obtained. Patient identification and proposed procedure were verified by the physician in the pre-procedure area. Mental Status Examination: alert and oriented. Respiratory Examination: clear to auscultation. CV Examination: normal. Prophylactic Antibiotics: The patient does not require prophylactic antibiotics. Prior Anticoagulants: The patient has taken no previous anticoagulant or antiplatelet agents. ASA Grade Assessment: II - A patient with mild systemic disease. After reviewing the risks and benefits, the patient was deemed in satisfactory condition to undergo the procedure. The anesthesia plan was to use moderate sedation / analgesia (conscious sedation). Immediately prior to administration of medications, the patient was re-assessed for adequacy to receive sedatives. The heart rate, respiratory rate, oxygen saturations, blood pressure, adequacy of pulmonary ventilation, and response to care were monitored throughout the procedure. The physical status of the patient was re-assessed after the procedure. After obtaining informed consent, the endoscope was passed under direct vision. Throughout the procedure, the patient's blood pressure, pulse, and oxygen saturations were monitored continuously. The gastroscope was introduced through the mouth, and advanced to the second part of duodenum. The upper GI endoscopy was accomplished without difficulty. The patient tolerated the procedure well. Scope In: 12:54:06 PM Scope Out: 1:04:55 PM Total Procedure Duration Time 0 hours 10 minutes 49 seconds Findings: The examined esophagus was normal. There was evidence of an intact gastrostomy with a patent G-tube present on the greater curvature of the stomach. This was characterized by erythema. One oozing cratered gastric ulcer with a visible vessel was found on the greater curvature of the stomach. The lesion was 6 mm in largest dimension. Coagulation for hemostasis using heater probe was successful. Estimated blood loss was minimal. The duodenal bulb was normal. Impression: - Normal esophagus. - Intact gastrostomy with a patent G-tube present characterized by erythema. - Oozing gastric ulcer with a visible vessel. Treated with a heater probe. - Normal duodenal bulb. - No specimens collected. Recommendation: - Return patient to [facility] for [facility] care. - Resume previous diet. - Continue present medications. Procedure Code(s): --- Professional --- 94327, Esophagogastroduodenoscopy, flexible, transoral; with control of bleeding, any method CPT copyright 2017 [employer]. All rights reserved. The codes documented in this report are preliminary and upon ict sales representative review may be revised to meet current compliance requirements. Damián Deleon DO 10/22/2022 1:43:20 PM This report has been signed electronically. Number of Addenda: 0 Note Initiated On: 10/22/2022 12:44 PM
--- NOTE | 2022-10-22 13:44 | OP.CCLET_ITS ---
10/22/2022 Severo Virk Re : Upper GI endoscopy procedure for Antonio Ryder Todd This procedure was performed on October. My impressions and recommendations are as follows: Impressions : - Normal esophagus. - Intact gastrostomy with a patent G-tube present characterized by erythema. - Oozing gastric ulcer with a visible vessel. Treated with a heater probe. - Normal duodenal bulb. - No specimens collected. Recommendations : - Return patient to [facility] for [facility] care. - Resume previous diet. - Continue present medications. My findings are described in the full procedure note, which is enclosed. If I can be of further assistance, please feel free to contact me at . Sincerely, Damián Deleon, 10/22/2022 1:43:20 PM This report has been signed electronically.
--- NOTE | 2022-10-22 14:29 | CASEMGMT ---
Social Work Pt was discharged from [facility] on 10/19/22 to [facility]. left for pt son to confirm plan to return to [facility] at time of discharge. SW will await return call. Updated clinicals sent to [facility] to confirm acceptance back to facility at time of discharge. Plan: [facility], pending acceptance and precert JOSLYN Wesley
--- NOTE | 2022-10-22 15:20 | CASEMGMT ---
[facility] CM Readmission Note Previous Admission:? 09/16/2022-10/19/2022? Diagnosis:?NSTEMI, TREVOR DC Disposition: [facility] Current Admission? Current Diagnosis: GIB Pt presented to ER from [facility] with nausea and vomiting. 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 Pt receives dialysis M/W/F and has a peg tube. Pt to undergo EGD this date. DC Plan: Return to [facility]
[2022-10-22 18:22] LABS: Absolute Lymphocyte Count 0.91 X10^3/uL (0.83-4.51); Absolute Neutrophil Count 13.7 X10^3/uL (2.0-7.7); Basophil# 0.18 X10^3/uL; Basophil% 1.1 % (0-1); Eosinophil# 0.17 X10^3/uL; Eosinophils% 1.1 % (0-5); Hematocrit 25.6 % (40-54); Hemoglobin 8.1 g/dL (13.0-16.5); Lymphocyte # 0.91 X10^3/ul (0.83-4.51); Lymphocyte % 5.8 % (19-41); Mean Corp Hgb Conc 31.6 g/dL (32-36); Mean Corpuscular Hgb 30.7 pg (27.0-32.0); Mean Platelet Vol. 9.9 fl (6.2-12.0); Monocyte# 0.69 X10^3/uL; Monocyte% 4.4 % (0-10); NRBC Flagged by Analyzer 0 % (0-5); Neutrophil # 13.68 X10^3/uL (2.7-7.7); Platelet Count 419 K/mm3 (150-450); RBC Distribution Width CV 12.7 % (11.6-14.6); RBC Distribution Width SD 44.7 fl (35.1-43.9); Red Blood Count 2.64 M/mm3 (4.6-6.2); White Blood Count 15.7 K/mm3 (4.4-11.0)
[2022-10-22 18:48] LABS: Anion Gap 12 (5-15); BUN 76 mg/dL (7-18); BUN/Creat Ratio 9.2 RATIO (10-20); Calcium,Total 8.9 mg/dL (8.5-10.1); Chloride 101 mmol/L (98-107); Creatinine, Serum 8.27 mg/dL (0.70-1.30); EST Glomerular Filtration Rate 7 mL/min (>60); Est Glom Filt Rate - Afr Amer 9 mL/min (>60); Glucose 381 mg/dL (74-106); Potassium 5.4 mmol/L (3.5-5.1); Sodium Level 137 mmol/L (136-145)
[2022-10-22 20:11] LABS: Bedside Glucose 354 mg/dL (74-106)
--- NOTE | 2022-10-22 22:26 | NURSING ---
Pt triggered for sepsis protocol and this nurse spoke with and she stated no new orders due to patient being on dialysis, so patients creatinine does not count
[2022-10-22] MEDS: Isosorbide DN 10 MG Tablet GT (22:47)
[2022-10-22] MEDS: hydrALAZINE 50 MG Tablet GT (22:48)
[2022-10-22] MEDS: Dorzolamide HCL/Timolol 10 ml Bottle 1 DRP OPHTHALMIC (22:48)
[2022-10-22] MEDS: Carvedilol 25 MG Tablet GT (22:48)
[2022-10-22] MEDS: Atorvastatin Calcium 40 MG Tablet GT (22:48)
[2022-10-22] MEDS: Polyethylene Glycol 3350 17 GM PACKET PO (22:48)
--- NOTE | 2022-10-22 22:48 | NURSING ---
pts Peg tube residual was 0.
[2022-10-23] VITALS (10 sets, daily range): BP systolic 126–165; BP diastolic 64–88; PULSE 82–95; RESP 16–20; TEMP 36.2–36.9; O2SAT 92–94
[2022-10-23 00:30] LABS: Bedside Glucose 247 mg/dL (74-106)
--- NOTE | 2022-10-23 01:34 | NURSING ---
Pts peg tube residual was 30ml. 30 ml placed back
--- NOTE | 2022-10-23 01:34 | NURSING ---
Pt only able to tolerate half of Kayexalate through peg tube. Pt is deaf but had signaled to stop with medication administration due to stomach pain.
[2022-10-23 04:15] LABS: Absolute Lymphocyte Count 1.01 X10^3/uL (0.83-4.51); Absolute Neutrophil Count 12.8 X10^3/uL (2.0-7.7); Basophil# 0.15 X10^3/uL; Eosinophil# 0.18 X10^3/uL; Eosinophils% 1.2 % (0-5); Hematocrit 23.2 % (40-54); Hemoglobin 7.4 g/dL (13.0-16.5); Lymphocyte # 1.01 X10^3/ul (0.83-4.51); Lymphocyte % 6.7 % (19-41); Mean Corp Hgb Conc 31.9 g/dL (32-36); Mean Corpuscular Hgb 30.6 pg (27.0-32.0); Mean Corpuscular Volume 95.9 fL (80-94); Mean Platelet Vol. 10.4 fl (6.2-12.0); Monocyte# 0.81 X10^3/uL; Monocyte% 5.4 % (0-10); NRBC Flagged by Analyzer 0 % (0-5); Neutrophil # 12.78 X10^3/uL (2.7-7.7); Neutrophil % 85.2 % (47-70); Platelet Count 405 K/mm3 (150-450); RBC Distribution Width CV 12.7 % (11.6-14.6); RBC Distribution Width SD 44.2 fl (35.1-43.9); Red Blood Count 2.42 M/mm3 (4.6-6.2)
[2022-10-23 04:46] LABS: ALB/GLOB Ratio 0.3 RATIO (0.9-2.4); AST(SGOT) 25 U/L (15-37); Alanine Aminotransfer ALT/SGPT 35 U/L (16-61); Albumin, Serum 1.7 g/dL (3.2-5.0); Alkaline Phosphatase 109 U/L (45-117); Anion Gap 10 (5-15); BUN 76 mg/dL (7-18); BUN/Creat Ratio 8.6 RATIO (10-20); Calcium,Total 8.8 mg/dL (8.5-10.1); Chloride 104 mmol/L (98-107); Creatinine, Serum 8.83 mg/dL (0.70-1.30); EST Glomerular Filtration Rate 7 mL/min (>60); Est Glom Filt Rate - Afr Amer 8 mL/min (>60); Estimated Creatinine Clearance 8.53 ml/min; Globulin 5.7 g/dL (2.2-4.2); Glucose 299 mg/dL (74-106); Magnesium 2.4 mg/dL (1.6-2.6); Phosphorus 6.9 mg/dL (2.5-4.9); Potassium 5.1 mmol/L (3.5-5.1); Protein, Total 7.4 g/dL (6.4-8.2); Sodium Level 140 mmol/L (136-145)
[2022-10-23] MEDS: Insulin Lispro 100 UNIT/ML INSULN.PEN SC ×4 (05:07→23:05)
[2022-10-23] MEDS: hydrALAZINE 50 MG Tablet GT ×3 (05:07→22:05)
--- NOTE | 2022-10-23 05:07 | NURSING ---
Pts peg tube residual was 0.
[2022-10-23] MEDS: 0.9% Saline Lock 10 ML Syringe IV ×2 (05:08→13:39)
[2022-10-23] MEDS: Morphine 2 MG/ML Syringe IV (05:08)
[2022-10-23 05:51] LABS: Bedside Glucose 320 mg/dL (74-106)
--- NOTE | 2022-10-23 07:49 | PN.HOSP_ITS ---
Subjective Subjective Resting comfortably in bed, endorses that abdominal pain is improved but feels like his breathing is suboptimal Objective Data Objective Data Vital Signs: Vital Signs Temp Pulse Resp BP Pulse Ox O2 Del Method O2 Flow Rate 98.5 F 92 18 134/73 H 94 Nasal Cannula 2 10/23/22 04:00 10/23/22 05:07 10/23/22 04:00 10/23/22 05:03 10/23/22 04:00 10/23/22 04:00 10/23/22 04:00 Oxygen Flow Rate (L/min) 2 Oxygen Delivery Method Nasal Cannula Weight: 67.2 kg Body Mass Index (BMI) 23.2 Intake & Output: Intake and Output for Last 24 Hours 10/21/22 10/22/22 10/23/22 23:59 23:59 23:59 Intake Total 110 / 110 803.25 / 803.25 Output Total 1220 / 1220 200 / 200 Balance 110 / -190 -416.75 / -416.75 -200 / -200 Medical Nutrition Assessment Dietitian: Malnutrition Criteria Met Start: 10/22/22 11:20 Freq: Status: Active Protocol: Document 10/22/22 11:20 AG (Rec: 10/22/22 11:20 [id number]) Nutrition Malnutrition Evidence of Malnutrition Exists Yes Malnutrition (severe): Acute Illness/Injury Evidenced By Suboptimal Energy Intake ( Severe),Weight Loss (Severe) Clinical Problem Acute Disease or Injury Related Malnutrition Etiology acute severe malnutrition related to inadequate energy intake d/t dysphagia, intolerance of enteral nutrition Signs/Symptoms as evidenced by unintentional wt loss of 13.6kg/17% x 1 month; estimated PO intake meeting <50% of estimated energy needs for > 5 days over past 1 month Status Active Problem Recommendation Dietitian Recommendations/Changes Pt is chronically NPO d/t dysphagia. As medically appropriate, recommend resume enteral nutrition via PEG- Vital AF 1. 2 at goal rate of 60mL/hour w/ 50mL H2O flush every 4 hours to provide 1728 calories, 108 g protein, and 1467mL total fluid/day. Would start at 15mL /hour and increase slowly by 10mL/hour every 12 hours as tolerated until goal rate is achieved. Lab / Micro Data Result Diagrams: 10/23/22 03:35 10/23/22 03:35 Labs: Laboratory Results - last 24 hr 10/22/22 04:00: Procalcitonin 0.67 H 10/22/22 08:45: Urine Color Red, Urine Clarity Cloudy, Urine pH 8.0, Ur Specific [place] 1.015, Urine Protein 500 H, Urine Glucose (UA) 1000 H, Urine Ketones 15 H, Urine Occult Blood 250 H, Urine Nitrite Negative, Urine Bilirubin Negative, Urine Urobilinogen Normal, Ur Leukocyte Esterase 25 H, Urine RBC > 100 SEEN, Urine WBC 0-5 SEEN, Ur Squamous Epith Cells 0 SEEN, Urine Bacteria 0 SEEN, Urine Mucus 0 SEEN 10/22/22 10:18: POC Glucose 238 H 10/22/22 17:52: POC Glucose 354 H 10/22/22 18:08: WBC 15.7 H, RBC 2.64 L, Hgb 8.1 L, Hct 25.6 L, MCV 97.0 H, MCH 30.7, MCHC 31.6 L, RDW Std Deviation 44.7 H, RDW Coeff of Jenifer 12.7, Plt Count 419, MPV 9.9, Immature Gran % (Auto) 0.600, Neut % (Auto) 87.0 H, Lymph % (Auto) 5.8 L, [place] % (Auto) 4.4, Eos % (Auto) 1.1, Baso % (Auto) 1.1 H, Absolute Neuts (auto) 13.7 H, Absolute Lymphs (auto) 0.91, Nucleated RBC % 0 10/22/22 18:08: Sodium 137, Potassium 5.4 H, Chloride 101, Carbon Dioxide 24.0, Anion Gap 12, BUN 76 H, Creatinine 8.27 H*, Estim Creat Clear Calc 9.10, Est GFR (MDRD) Af Amer 9 L, Est GFR (MDRD) Non-Af 7 L, BUN/Creatinine Ratio 9.2 L, Glucose 381 H, Calcium 8.9 10/22/22 18:08: Lactic Acid 1.0 10/22/22 22:14: POC Glucose 247 H 10/23/22 03:35: WBC 15.0 H, RBC 2.42 L, Hgb 7.4 L, Hct 23.2 L, MCV 95.9 H, MCH 30.6, MCHC 31.9 L, RDW Std Deviation 44.2 H, RDW Coeff of Jenifer 12.7, Plt Count 405, MPV 10.4, Immature Gran % (Auto) 0.500, Neut % (Auto) 85.2 H, Lymph % (Auto) 6.7 L, [place] % (Auto) 5.4, Eos % (Auto) 1.2, Baso % (Auto) 1.0, Absolute Neuts (auto) 12.8 H, Absolute Lymphs (auto) 1.01, Nucleated RBC % 0 10/23/22 03:35: Sodium 140, Potassium 5.1, Chloride 104, Carbon Dioxide 26.0, Anion Gap 10, BUN 76 H, Creatinine 8.83 H*, Estim Creat Clear Calc 8.53, Est GFR (MDRD) Af Amer 8 L, Est GFR (MDRD) Non-Af 7 L, BUN/Creatinine Ratio 8.6 L, Glucose 299 H, Calcium 8.8, Phosphorus 6.9 H, Magnesium 2.4, Total Bilirubin 0.40, AST 25, ALT 35, Alkaline Phosphatase 109, Total Protein 7.4, Albumin 1.7 L , Globulin 5.7 H, Albumin/Globulin Ratio 0.3 L 10/23/22 05:06: POC Glucose 320 H Radiography Diagnostic Testing: Radiology Impression KUB X-Ray 10/22/22 06:44 IMPRESSION: Appropriate positioning of nasogastric tube. Electronically Signed: Yara Reese MD at 8:00 EST Reading Location ID and State: [address] [place] [address] , Service support , Physical Exam Const Constitutional Narrative: Laying in bed, no acute distress HEENT normocephalic and head/scalp atraumatic Eyes Eyes Narrative: EOM grossly intact, anicteric Neck supple Resp normal respiratory effort Cardio regular rate and regular rhythm GI soft to palpation, non-tender and non-distended Extremity Extremity Narrative: No edema appreciated Neuro moves all extremities Neuro Narrative: No overt focal deficits appreciated Psych Psych Narrative: Cooperative Assessment & Plan Assessment/Plan (1) TREVOR (acute kidney injury): (2) CKD (chronic kidney disease): (3) Benign essential hypertension: (4) Decreased left ventricular systolic function: (5) Macrocytic anemia: (6) 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 He was recently admitted for prolonged period of time for NSTEMI, TREVOR on dialysis, type 1 diabetes with multiple episodes of DKA, and acute hypoxic respiratory failure and had required intubation and subsequent extubation 09/29 and also had dialysis started 09/22 and has remained dependent on that and he was [facility]. Yesterday he had abdominal pain and emesis that had been reported to be carrasco- colored but in the ED NG tube showed maroon-colored stomach aspirate. He had denied any diarrhea or hematemesis. #GI bleed, likely upper Had maroon-colored stomach aspirate, NG tube placed Does have a history of peptic ulcer disease?on Protonix every 12 Monitor CBC GI consulted Aspirin and Plavix held Presently going for scope with GI 10/23: Was found to have ulcer near PEG tube, this was treated with a heater prob e. Tube feeds resumed. hemoglobin 7.4 today from 8.1 yesterday. With his coronary artery disease his threshold should be 8, will transfuse 1 unit packed red blood cells, dialysis today #Abnormal urine color Per staff has had hansen colored urine, also on CT had thick-walled urinary bladder which cannot rule out cystitis UA with blood and glucose as well as protein but no bacteria or nitrite, culture pending Does have slightly elevated white count Will check Pro-José Low threshold to start antibiotics if needed #Coronary artery disease with multivessel disease Supposed to follow-up outpatient for intervention eval as he needed intervention at a tertiary facility but none were excepting and he was deemed stable for outpatient follow-up for this from a cardiac perspective Aspirin and Plavix have been held Resume beta-gwyn and nitrates when able to take p.o. #TREVOR on continued hemodialysis Wednesday/Wednesday/Wednesday Nephrology consulted, to have dialysis tomorrow 10/23: For dialysis today #Type 1 diabetes mellitus His long-acting was held due to being n.p.o., will continue to give low doses of sliding scale as needed as due to his type I status he quickly goes into DKA without even small amount of insulin in his system 10/23: Last night restarted long-acting insulin, no anion gap but does still have elevated glucose, will adjust further #Congenital deafness Continued modified communication #Dysphagia PEG tube in place Tube feeds are n.p.o. at this time #Chronic microcytic anemia Hemoglobin is 7?8 at baseline Will need EPO and iron infusion on an outpatient basis Has not required packed red blood cell transfusion at this time #DVT ppx: SCDs given bleed Susu Goode MD Charges/Coding Visit Charges Inpatient E&M: 11248 Subs Hosp L2
--- NOTE | 2022-10-23 09:15 | RAD_ITS ---
INDICATION: dyspnea EXAMINATION/TECHNIQUE: X-RAY - XR Chest 1 View COMPARISON: October 21, 2022 FINDINGS: LINES/DEVICES: Dialysis catheter noted on the left with tip at the atrial caval junction.. LUNGS: No consolidation, edema or effusion. No pneumothorax. MEDIASTINUM AND CARDIOVASCULAR STRUCTURES: Cardiac silhouette not enlarged. Central airways and mediastinal contour are unremarkable. BONES AND SOFT TISSUES: Degenerative changes of the shoulder joints. There is improved aeration at the right lung base since previous exam RAD/Chest 1 View (Portable) IMPRESSION: No radiographic evidence of acute cardiopulmonary disease Electronically Signed: Lonnie Umanzor MD at 17:22 EST ,
--- NOTE | 2022-10-23 10:14 | PN.RENAL_ITS ---
Documented by User: ZELDA Watts 10/23/22 10:27 Subjective Subjective Following for dialysis requiring TREVOR Patient resting in bed, seen and examined while on dialysis. No overnight events. Objective Data Objective Data Vital Signs: Vital Signs Temp Pulse Resp BP Pulse Ox O2 Del Method O2 Flow Rate 98.5 F 92 18 134/73 H 94 Nasal Cannula 2 10/23/22 04:00 10/23/22 05:07 10/23/22 04:00 10/23/22 05:03 10/23/22 04:00 10/23/22 08:04 10/23/22 08:04 Oxygen Flow Rate (L/min) 2 Oxygen Delivery Method Nasal Cannula Weight: 67.2 kg Body Mass Index (BMI) 23.2 Intake & Output: Intake and Output for Last 24 Hours 10/21/22 10/22/22 10/23/22 23:59 23:59 23:59 Intake Total 110 / 110 803.25 / 803.25 Output Total 1220 / 1220 200 / 200 Balance 110 / -190 -416.75 / -416.75 -200 / -200 Medical Nutrition Assessment Dietitian: Malnutrition Criteria Met Start: 10/22/22 11:20 Freq: Status: Active Protocol: Document 10/23/22 10:10 AZAR (Rec: 10/23/22 10:10 AZAR [id number]) Nutrition Malnutrition Evidence of Malnutrition Exists Yes Malnutrition (severe): Acute Illness/Injury Evidenced By Suboptimal Energy Intake ( Severe),Weight Loss (Severe) Clinical Problem Acute Disease or Injury Related Malnutrition Etiology acute severe malnutrition related to inadequate energy intake d/t dysphagia, intolerance of enteral nutrition Signs/Symptoms as evidenced by unintentional wt loss of 13.6kg/17% x 1 month; estimated PO intake meeting <50% of estimated energy needs for > 5 days over past 1 month Status Active Problem Recommendation Dietitian Recommendations/Changes Pt is chronically NPO d/t dysphagia. As medically appropriate, recommend resume enteral nutrition via PEG- Vital AF 1. 2 at goal rate of 60mL/hour w/ 50mL H2O flush every 4 hours to provide 1728 calories, 108 g protein, and 1467mL total fluid/day. Would start at 15mL /hour and increase slowly by 10mL/hour every 12 hours as tolerated until goal rate is achieved. Lab / Micro Data Result Diagrams: 10/23/22 03:35 10/23/22 03:35 Labs: Laboratory Results - last 24 hr 10/22/22 10:18: POC Glucose 238 H 10/22/22 17:52: POC Glucose 354 H 10/22/22 18:08: WBC 15.7 H, RBC 2.64 L, Hgb 8.1 L, Hct 25.6 L, MCV 97.0 H, MCH 30.7, MCHC 31.6 L, RDW Std Deviation 44.7 H, RDW Coeff of Jenifer 12.7, Plt Count 419, MPV 9.9, Immature Gran % (Auto) 0.600, Neut % (Auto) 87.0 H, Lymph % (Auto) 5.8 L, [place] % (Auto) 4.4, Eos % (Auto) 1.1, Baso % (Auto) 1.1 H, Absolute Neuts (auto) 13.7 H, Absolute Lymphs (auto) 0.91, Nucleated RBC % 0 10/22/22 18:08: Sodium 137, Potassium 5.4 H, Chloride 101, Carbon Dioxide 24.0, Anion Gap 12, BUN 76 H, Creatinine 8.27 H*, Estim Creat Clear Calc 9.10, Est GFR (MDRD) Af Amer 9 L, Est GFR (MDRD) Non-Af 7 L, BUN/Creatinine Ratio 9.2 L, Glucose 381 H, Calcium 8.9 10/22/22 18:08: Lactic Acid 1.0 10/22/22 22:14: POC Glucose 247 H 10/23/22 03:35: WBC 15.0 H, RBC 2.42 L, Hgb 7.4 L, Hct 23.2 L, MCV 95.9 H, MCH 30.6, MCHC 31.9 L, RDW Std Deviation 44.2 H, RDW Coeff of Jenifer 12.7, Plt Count 405, MPV 10.4, Immature Gran % (Auto) 0.500, Neut % (Auto) 85.2 H, Lymph % (Auto) 6.7 L, [place] % (Auto) 5.4, Eos % (Auto) 1.2, Baso % (Auto) 1.0, Absolute Neuts (auto) 12.8 H, Absolute Lymphs (auto) 1.01, Nucleated RBC % 0 10/23/22 03:35: Sodium 140, Potassium 5.1, Chloride 104, Carbon Dioxide 26.0, Anion Gap 10, BUN 76 H, Creatinine 8.83 H*, Estim Creat Clear Calc 8.53, Est GFR (MDRD) Af Amer 8 L, Est GFR (MDRD) Non-Af 7 L, BUN/Creatinine Ratio 8.6 L, Glucose 299 H, Calcium 8.8, Phosphorus 6.9 H, Magnesium 2.4, Total Bilirubin 0.40, AST 25, ALT 35, Alkaline Phosphatase 109, Total Protein 7.4, Albumin 1.7 L , Globulin 5.7 H, Albumin/Globulin Ratio 0.3 L 10/23/22 05:06: POC Glucose 320 H 10/23/22 08:25: Blood Type O POSITIVE, Antibody Screen NEGATIVE, Crossmatch See Detail Physical Exam Narrative General: Alert and oriented. No apparent distress. HEENT: Normocephalic, atraumatic. Heart: Normal S1, S2. No rubs, murmurs or gallops. Lungs: Clear to auscultation bilaterally. 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 Started on dialysis on 09/22/2022 because of refractory acute hypoxic respiratory failure due to volume overload, acidosis and severe azotemia. - Patient to dialyze today on 2K bath with minimal removal. He is near EDW. For now, we will continue dialysis on MWF schedule. He dialyzes at [facility] dialysis center as outpatient. -Blood pressures improved. Currently on amlodipine, carvedilol and furosemide nondialysis days, -Hemoglobin 7.4. Patient was found to have ulcer near PEG tube treated with heater probe. Back on tube feedings. To receive 1 unit PRBC today. We will start IV iron and INOCENCIO with dialysis at outpatient kidney center. -WBC 15.0. Urine was noted to be hansen colored, urine culture pending - discharge planning in progress. Discussed with Dr. Goode. Documented by User: Dr. 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 Started on dialysis on 09/22/2022 because of refractory acute hypoxic respiratory failure due to volume overload, acidosis and severe azotemia. - Patient to dialyze today on 2K bath with minimal removal. He is near EDW. For now, we will continue dialysis on MWF schedule. He dialyzes at [facility] dialysis center as outpatient. -Blood pressures improved. Currently on amlodipine, carvedilol and furosemide nondialysis days, -Hemoglobin 7.4. Patient was found to have ulcer near PEG tube treated with heater probe. Back on tube feedings. To receive 1 unit PRBC today. We will start IV iron and INOCENCIO with dialysis at outpatient kidney center. -WBC 15.0. Urine was noted to be hansen colored, urine culture pending - discharge planning in progress. Discussed with Dr. Goode. Nephrology attending addendum: The patient was seen and examined independently. CROZER's note reflects my independent evaluation and management decision. The patient is seen during hemodialysis treatment. F160 dialyzer is used. Blood flow was 400 mL/min, dialysate flow 600 mL/min. 2K dialysate is used. We remove 2 to 3 L. The patient tolerating dialysis well. Dakota Bey MD.
--- NOTE | 2022-10-23 10:16 | NURSING ---
verification with dialysis nurse as well, she is able to administer blood while pt is receiving dialysis. all safety verifications maintained.
--- NOTE | 2022-10-23 10:35 | CASEMGMT ---
Social Work SW spoke with physician and pt may be ready for discharge over the weekend. Phone call to Lainey at the [facility] and pt is able to return. Precert will be needed. Phone call to pt fabiola Contreras who confirms plan is to return to [facility] at discharge for continued rehabilitation. HUSSEIN updated therapy at PT/OT evals are needed for precert. Pt is currently receiving hemodialysis and per nursing will be done at 1300. PT/OT to see at that time. HUSSEIN will send referral to [facility] after therapy and precert will be started. [facility] to call nursing floor over the weekend if precert is obtained. Plan: [facility], pending precert JOSLYN Wesley
--- NOTE | 2022-10-23 11:04 | NURSING ---
meds off schedule d/t currently receiving dialysis
--- NOTE | 2022-10-23 12:32 | DIALYSIS ---
Hemodialysis today. x3.5hrs. Pt tolerated tx. No fluid removed. Pt stable Report to ISABEL Alvarez
--- NOTE | 2022-10-23 13:12 | PCM.PROGNOTE ---
Subjective Subjective Patient underwent an upper endoscopy yesterday for a upper GI bleed. He is not have any abdominal pain at this time. He denies any nausea. He denies any chest pain or shortness of breath. Objective Data Objective Data Vital Signs: Vital Signs Temp Pulse Resp BP Pulse Ox O2 Del Method O2 Flow Rate 97.2 F L 89 16 165/88 H 94 Nasal Cannula 2 10/23/22 10:48 10/23/22 10:48 10/23/22 10:48 10/23/22 10:48 10/23/22 04:00 10/23/22 08:04 10/23/22 08:04 Oxygen Flow Rate (L/min) 2 Oxygen Delivery Method Nasal Cannula Weight: 148 lb 2.41 oz Body Mass Index (BMI) 23.2 Intake & Output: Intake and Output for Last 24 Hours 10/21/22 10/22/22 10/23/22 23:59 23:59 23:59 Intake Total 110 / 110 803.25 / 803.25 400 / 400 Output Total 1220 / 1220 200 / 200 Balance 110 / -190 -416.75 / -416.75 200 / 200 Medical Nutrition Assessment Dietitian: Malnutrition Criteria Met Start: 10/22/22 11:20 Freq: Status: Active Protocol: Document 10/23/22 10:10 AZAR (Rec: 10/23/22 10:10 AZAR [id number]) Nutrition Malnutrition Evidence of Malnutrition Exists Yes Malnutrition (severe): Acute Illness/Injury Evidenced By Suboptimal Energy Intake ( Severe),Weight Loss (Severe) Clinical Problem Acute Disease or Injury Related Malnutrition Etiology acute severe malnutrition related to inadequate energy intake d/t dysphagia, intolerance of enteral nutrition Signs/Symptoms as evidenced by unintentional wt loss of 13.6kg/17% x 1 month; estimated PO intake meeting <50% of estimated energy needs for > 5 days over past 1 month Status Active Problem Recommendation Dietitian Recommendations/Changes Pt is chronically NPO d/t dysphagia. As medically appropriate, recommend resume enteral nutrition via PEG- Vital AF 1. 2 at goal rate of 60mL/hour w/ 50mL H2O flush every 4 hours to provide 1728 calories, 108 g protein, and 1467mL total fluid/day. Would start at 15mL /hour and increase slowly by 10mL/hour every 12 hours as tolerated until goal rate is achieved. Lab / Micro Data Result Diagrams: 10/23/22 03:35 10/23/22 03:35 Labs: Laboratory Results - last 24 hr 10/22/22 17:52: POC Glucose 354 H 10/22/22 18:08: WBC 15.7 H, RBC 2.64 L, Hgb 8.1 L, Hct 25.6 L, MCV 97.0 H, MCH 30.7, MCHC 31.6 L, RDW Std Deviation 44.7 H, RDW Coeff of Jenifer 12.7, Plt Count 419, MPV 9.9, Immature Gran % (Auto) 0.600, Neut % (Auto) 87.0 H, Lymph % (Auto) 5.8 L, [place] % (Auto) 4.4, Eos % (Auto) 1.1, Baso % (Auto) 1.1 H, Absolute Neuts (auto) 13.7 H, Absolute Lymphs (auto) 0.91, Nucleated RBC % 0 10/22/22 18:08: Sodium 137, Potassium 5.4 H, Chloride 101, Carbon Dioxide 24.0, Anion Gap 12, BUN 76 H, Creatinine 8.27 H*, Estim Creat Clear Calc 9.10, Est GFR (MDRD) Af Amer 9 L, Est GFR (MDRD) Non-Af 7 L, BUN/Creatinine Ratio 9.2 L, Glucose 381 H, Calcium 8.9 10/22/22 18:08: Lactic Acid 1.0 10/22/22 22:14: POC Glucose 247 H 10/23/22 03:35: WBC 15.0 H, RBC 2.42 L, Hgb 7.4 L, Hct 23.2 L, MCV 95.9 H, MCH 30.6, MCHC 31.9 L, RDW Std Deviation 44.2 H, RDW Coeff of Jenifer 12.7, Plt Count 405, MPV 10.4, Immature Gran % (Auto) 0.500, Neut % (Auto) 85.2 H, Lymph % (Auto) 6.7 L, [place] % (Auto) 5.4, Eos % (Auto) 1.2, Baso % (Auto) 1.0, Absolute Neuts (auto) 12.8 H, Absolute Lymphs (auto) 1.01, Nucleated RBC % 0 10/23/22 03:35: Sodium 140, Potassium 5.1, Chloride 104, Carbon Dioxide 26.0, Anion Gap 10, BUN 76 H, Creatinine 8.83 H*, Estim Creat Clear Calc 8.53, Est GFR (MDRD) Af Amer 8 L, Est GFR (MDRD) Non-Af 7 L, BUN/Creatinine Ratio 8.6 L, Glucose 299 H, Calcium 8.8, Phosphorus 6.9 H, Magnesium 2.4, Total Bilirubin 0.40, AST 25, ALT 35, Alkaline Phosphatase 109, Total Protein 7.4, Albumin 1.7 L, Globulin 5.7 H, Albumin/Globulin Ratio 0.3 L 10/23/22 05:06: POC Glucose 320 H 10/23/22 08:25: Blood Type O POSITIVE, Antibody Screen NEGATIVE, Crossmatch See Detail Physical Exam Narrative General: Alert and oriented. No apparent distress. HEENT: Normocephalic, atraumatic. Heart: Normal S1, S2. No rubs, murmurs or gallops. Lungs: Clear to auscultation bilaterally. No rhonchi, rales or wheezing Abdomen: Nondistended, soft Extremities: No edema Tunneled HD catheter dressing clean, dry and intact Assessment & Plan Assessment/Plan (1) GI bleed: PLAN: GI bleed secondary to a likely pressure ulcer associated with a new PEG tube that was placed. It was treated endoscopically with cautery. He is likely iron deficient due to multiple chronic diseases. I agree with transfusion of packed red blood cells and he may also need iron transfusion. Recommend Prevacid via PEG 30 mg twice a day. Follow hemoglobin. Charges/Coding Visit Charges Inpatient E&M: 44930 Subs Hosp L2
--- NOTE | 2022-10-23 13:24 | NURSING ---
pt done with dialysis. unable to physically get to med drawer/ivac etc that is up by left side of bed d/t dialysis machines currently there cycling.
--- NOTE | 2022-10-23 13:29 | NURSING ---
see nursing communication about labs and override initiating further sepsis workup/interventions
[2022-10-23 13:40] LABS: Bedside Glucose 233 mg/dL (74-106)
[2022-10-23] MEDS: Carvedilol 25 MG Tablet GT ×2 (13:43→22:06)
[2022-10-23] MEDS: amLODIPine 5 MG Tablet GT (13:43)
[2022-10-23] MEDS: Polyethylene Glycol 3350 17 GM PACKET GT ×2 (13:43→22:09)
[2022-10-23] MEDS: Latanoprost 0.005% 1 Bottle 1 DRP OPHTHALMIC (13:44)
[2022-10-23] MEDS: Insulin Glargine-YFGN 100 UNIT/ML Pen 30 UNIT SC ×2 (13:45→23:04)
[2022-10-23] MEDS: Dorzolamide HCL/Timolol 10 ml Bottle 1 DRP OPHTHALMIC ×2 (13:47→22:08)
[2022-10-23] MEDS: Isosorbide DN 10 MG Tablet GT ×2 (13:47→22:08)
[2022-10-23] MEDS: Vital AF 1.2 Cal Liquid 1,000 ML 15 ML GT (14:13)
--- NOTE | 2022-10-23 17:04 | CASEMGMT ---
Social Work SW spoke with MARCUS Khan who states that Pt was set up to receive dialysis at [facility] and went to first appointment on Wednesday. [facility] did not treat pt as they felt he was unable to sign papers for himself. [facility] states they do not have a way to communicate effectivly with pt. Erin inquiring if pt can be changed to [facility]. Elyse, JOSIAH rojas. JOSLYN Wesley
[2022-10-23 18:01] LABS: Bedside Glucose 175 mg/dL (74-106)
[2022-10-23] MEDS: Atorvastatin Calcium 40 MG Tablet GT (22:08)
[2022-10-23 23:31] LABS: Bedside Glucose 157 mg/dL (74-106)
[2022-10-24] VITALS (9 sets, daily range): BP systolic 112–146; BP diastolic 58–71; PULSE 74–85; RESP 18–20; TEMP 36.6–37.6; O2SAT 94–97
--- NOTE | 2022-10-24 03:07 | NURSING ---
Tube feed bumped up 25mL/hr tolerating well
[2022-10-24] MEDS: hydrALAZINE 50 MG Tablet GT ×3 (05:45→21:43)
[2022-10-24 06:19] LABS: Absolute Lymphocyte Count 1.11 X10^3/uL (0.83-4.51); Absolute Neutrophil Count 11.8 X10^3/uL (2.0-7.7); Basophil# 0.09 X10^3/uL; Basophil% 0.6 % (0-1); Eosinophil# 0.23 X10^3/uL; Eosinophils% 1.6 % (0-5); Hematocrit 26.9 % (40-54); Hemoglobin 8.6 g/dL (13.0-16.5); Lymphocyte # 1.11 X10^3/ul (0.83-4.51); Lymphocyte % 7.8 % (19-41); Mean Corpuscular Hgb 29.9 pg (27.0-32.0); Mean Corpuscular Volume 93.4 fL (80-94); Mean Platelet Vol. 9.6 fl (6.2-12.0); Monocyte# 0.91 X10^3/uL; Monocyte% 6.4 % (0-10); NRBC Flagged by Analyzer 0 % (0-5); Platelet Count 386 K/mm3 (150-450); RBC Distribution Width CV 12.7 % (11.6-14.6); RBC Distribution Width SD 43.5 fl (35.1-43.9); Red Blood Count 2.88 M/mm3 (4.6-6.2); White Blood Count 14.2 K/mm3 (4.4-11.0)
[2022-10-24 06:48] LABS: ALB/GLOB Ratio 0.3 RATIO (0.9-2.4); AST(SGOT) 20 U/L (15-37); Alanine Aminotransfer ALT/SGPT 28 U/L (16-61); Albumin, Serum 1.5 g/dL (3.2-5.0); Alkaline Phosphatase 96 U/L (45-117); Anion Gap 12 (5-15); BUN 37 mg/dL (7-18); BUN/Creat Ratio 7.7 RATIO (10-20); Calcium,Total 8.1 mg/dL (8.5-10.1); Chloride 100 mmol/L (98-107); Creatinine, Serum 4.78 mg/dL (0.70-1.30); EST Glomerular Filtration Rate 13 mL/min (>60); Est Glom Filt Rate - Afr Amer 16 mL/min (>60); Estimated Creatinine Clearance 15.75 ml/min; Globulin 5.8 g/dL (2.2-4.2); Glucose 79 mg/dL (74-106); Potassium 3.5 mmol/L (3.5-5.1); Protein, Total 7.3 g/dL (6.4-8.2); Sodium Level 139 mmol/L (136-145)
[2022-10-24 07:01] LABS: Bedside Glucose 80 mg/dL (74-106)
--- NOTE | 2022-10-24 08:28 | NURSING ---
ISABEL Condon spoke with Ben Rapp Pt step son, step son and family would like pt to go to [facility] instead of the [facility].
--- NOTE | 2022-10-24 08:31 | PN.HOSP_ITS ---
Subjective Subjective Resting comfortably in bed at time of evaluation not in acute distress Objective Data Objective Data Vital Signs: Vital Signs Temp Pulse Resp BP Pulse Ox O2 Del Method O2 Flow Rate 99.6 F H 76 18 116/58 L 94 Venturi Mask 2 10/24/22 03:20 10/24/22 05:45 10/24/22 03:21 10/24/22 05:45 10/24/22 03:20 10/24/22 07:54 10/24/22 07:54 Oxygen Flow Rate (L/min) 2 Oxygen Delivery Method Venturi Mask Weight: 67.2 kg Body Mass Index (BMI) 23.2 Intake & Output: Intake and Output for Last 24 Hours 10/22/22 10/23/22 10/24/22 23:59 23:59 23:59 Intake Total 803.25 / 803.25 670 / 670 193.5 / 193.5 Output Total 1220 / 1220 325 / 325 425 / 425 Balance -416.75 / -416.75 345 / 345 -231.5 / -231.5 Medical Nutrition Assessment Dietitian: Malnutrition Criteria Met Start: 10/22/22 11:20 Freq: Status: Active Protocol: Document 10/23/22 10:10 AZAR (Rec: 10/23/22 10:10 AZAR [id number]) Nutrition Malnutrition Evidence of Malnutrition Exists Yes Malnutrition (severe): Acute Illness/Injury Evidenced By Suboptimal Energy Intake ( Severe),Weight Loss (Severe) Clinical Problem Acute Disease or Injury Related Malnutrition Etiology acute severe malnutrition related to inadequate energy intake d/t dysphagia, intolerance of enteral nutrition Signs/Symptoms as evidenced by unintentional wt loss of 13.6kg/17% x 1 month; estimated PO intake meeting <50% of estimated energy needs for > 5 days over past 1 month Status Active Problem Recommendation Dietitian Recommendations/Changes Pt is chronically NPO d/t dysphagia. As medically appropriate, recommend resume enteral nutrition via PEG- Vital AF 1. 2 at goal rate of 60mL/hour w/ 50mL H2O flush every 4 hours to provide 1728 calories, 108 g protein, and 1467mL total fluid/day. Would start at 15mL /hour and increase slowly by 10mL/hour every 12 hours as tolerated until goal rate is achieved. Lab / Micro Data Result Diagrams: 10/24/22 06:10 10/24/22 06:10 Labs: Laboratory Results - last 24 hr 10/23/22 08:25: Blood Type O POSITIVE, Antibody Screen NEGATIVE, Crossmatch See Detail 10/23/22 13:22: POC Glucose 233 H 10/23/22 17:36: POC Glucose 175 H 10/23/22 23:01: POC Glucose 157 H 10/24/22 06:10: WBC 14.2 H, RBC 2.88 L, Hgb 8.6 L, Hct 26.9 L, MCV 93.4, MCH 29.9, MCHC 32.0, RDW Std Deviation 43.5, RDW Coeff of Jenifer 12.7, Plt Count 386, MPV 9.6, Immature Gran % (Auto) 0.600, Neut % (Auto) 83.0 H, Lymph % (Auto) 7.8 L, [place] % (Auto) 6.4, Eos % (Auto) 1.6, Baso % (Auto) 0.6, Absolute Neuts (auto) 11.8 H, Absolute Lymphs (auto) 1.11, Nucleated RBC % 0 10/24/22 06:10: Sodium 139, Potassium 3.5, Chloride 100, Carbon Dioxide 27.0, Anion Gap 12, BUN 37 H, Creatinine 4.78 H, Estim Creat Clear Calc 15.75, Est GFR (MDRD) Af Amer 16 L, Est GFR (MDRD) Non-Af 13 L, BUN/Creatinine Ratio 7.7 L, Glucose 79, Calcium 8.1 L, Total Bilirubin 0.30, AST 20, ALT 28, Alkaline Phosphatase 96, Total Protein 7.3, Albumin 1.5 L, Globulin 5.8 H, Albumin/Globulin Ratio 0.3 L 10/24/22 06:33: POC Glucose 80 Radiography Diagnostic Testing: Radiology Impression Chest X-Ray 10/23/22 09:15 IMPRESSION: No radiographic evidence of acute cardiopulmonary disease Electronically Signed: Lonnie Umanzor MD at 17:22 EST Reading Location ID and State: [facility] / [place] , Service support , Physical Exam Const Constitutional Narrative: Laying in bed, no acute distress HEENT normocephalic and head/scalp atraumatic Eyes Eyes Narrative: EOM grossly intact, anicteric Neck supple Resp normal respiratory effort Cardio regular rate and regular rhythm GI soft to palpation, non-tender and non-distended Extremity Extremity Narrative: No edema appreciated Neuro moves all extremities Neuro Narrative: No overt focal deficits appreciated Psych Psych Narrative: Cooperative Assessment & Plan Assessment/Plan (1) TREVOR (acute kidney injury): (2) CKD (chronic kidney disease): (3) Benign essential hypertension: (4) Decreased left ventricular systolic function: (5) Macrocytic anemia: (6) 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 He was recently admitted for prolonged period of time for NSTEMI, TREVOR on dialysis, type 1 diabetes with multiple episodes of DKA, and acute hypoxic respiratory failure and had required intubation and subsequent extubation 09/29 and also had dialysis started 09/22 and has remained dependent on that and he was discharged on 10/19 to group home facility. Yesterday he had abdominal pain and emesis that had been reported to be carrasco- colored but in the ED NG tube showed maroon-colored stomach aspirate. He had denied any diarrhea or hematemesis. #Upper GI bleed secondary to gastric ulcer Had maroon-colored stomach aspirate, NG tube placed Does have a history of peptic ulcer disease?on Protonix every 12 Monitor CBC GI consulted Aspirin and Plavix held Presently going for scope with GI 10/23: Was found to have ulcer near PEG tube, this was treated with a heater probe. Tube feeds resumed. hemoglobin 7.4 today from 8.1 yesterday. With his coronary artery disease his threshold should be 8, will transfuse 1 unit packed red blood cells, dialysis today 10/24: Received a unit of packed red blood cells yesterday as his hemoglobin transfusion threshold should be 8 given his coronary history, no further bleeding appreciated at this time. We will have INOCENCIO and iron with dialysis on an outpatient basis #Abnormal urine color Per staff has had hansen colored urine, also on CT had thick-walled urinary bladder which cannot rule out cystitis UA with blood and glucose as well as protein but no bacteria or nitrite, culture pending Does have slightly elevated white count Will check Pro-José Low threshold to start antibiotics if needed 10/24: Urine more clear, does not appear to be infected, culture still pending #Coronary artery disease with multivessel disease Supposed to follow-up outpatient for intervention eval as he needed intervention at a tertiary facility but none were excepting and he was deemed stable for outpatient follow-up for this from a cardiac perspective Aspirin and Plavix have been held Resume beta-gwyn and nitrates when able to take use PEG again 10/24: Resumed home meds #TREVOR on continued hemodialysis Wednesday/Wednesday/Wednesday Nephrology consulted, to have dialysis tomorrow 10/23: For dialysis today 10/24: Had not received dialysis the Wednesday prior to presentation due to concerns with communication and who should sign for his dialysis consent. W orking with social work to update paperwork and find a facility for dialysis that has superintendent drilling available. Will be here until next week to coordinate this. Hep B studies ordered per dialysis center request. Likely DC early next week once this is coordinated so safe discharge can be planned #Type 1 diabetes mellitus His long-acting was held due to being n.p.o., will continue to give low doses of sliding scale as needed as due to his type I status he quickly goes into DKA without even small amount of insulin in his system 10/23: Last night restarted long-acting insulin, no anion gap but does still have elevated glucose, will adjust further #Congenital deafness Continued modified communication #Dysphagia PEG tube in place Tube feeds are n.p.o. at this time 10/24: Tube feeds have been resumed #Chronic microcytic anemia Hemoglobin is 7?8 at baseline Will need EPO and iron infusion on an outpatient basis Has not required packed red blood cell transfusion at this time 10/24: Received a unit of blood yesterday due to transfusion threshold being 8 because of his coronary artery disease #DVT ppx: SCDs given jil Goode MD Charges/Coding Visit Charges Inpatient E&M: 50083 Subs Hosp L2
--- NOTE | 2022-10-24 08:34 | PN_ITS ---
Subjective Subjective There were no signs and symptoms of bleeding in the last 24 hours. He did receive transfusion of packed red blood cells and hemoglobin response accordingly. Objective Data Objective Data Vital Signs: Vital Signs Temp Pulse Resp BP Pulse Ox O2 Del Method O2 Flow Rate 99.6 F H 76 18 116/58 L 94 Venturi Mask 2 10/24/22 03:20 10/24/22 05:45 10/24/22 03:21 10/24/22 05:45 10/24/22 03:20 10/24/22 07:54 10/24/22 07:54 Oxygen Flow Rate (L/min) 2 Oxygen Delivery Method Venturi Mask Weight: 148 lb 2.41 oz Body Mass Index (BMI) 23.2 Intake & Output: Intake and Output for Last 24 Hours 10/22/22 10/23/22 10/24/22 23:59 23:59 23:59 Intake Total 803.25 / 803.25 670 / 670 193.5 / 193.5 Output Total 1220 / 1220 325 / 325 425 / 425 Balance -416.75 / -416.75 345 / 345 -231.5 / -231.5 Medical Nutrition Assessment Dietitian: Malnutrition Criteria Met Start: 10/22/22 11:20 Freq: Status: Active Protocol: Document 10/23/22 10:10 AZAR (Rec: 10/23/22 10:10 AZAR [id number]) Nutrition Malnutrition Evidence of Malnutrition Exists Yes Malnutrition (severe): Acute Illness/Injury Evidenced By Suboptimal Energy Intake ( Severe),Weight Loss (Severe) Clinical Problem Acute Disease or Injury Related Malnutrition Etiology acute severe malnutrition related to inadequate energy intake d/t dysphagia, intolerance of enteral nutrition Signs/Symptoms as evidenced by unintentional wt loss of 13.6kg/17% x 1 month; estimated PO intake meeting <50% of estimated energy needs for > 5 days over past 1 month Status Active Problem Recommendation Dietitian Recommendations/Changes Pt is chronically NPO d/t dysphagia. As medically appropriate, recommend resume enteral nutrition via PEG- Vital AF 1. 2 at goal rate of 60mL/hour w/ 50mL H2O flush every 4 hours to provide 1728 calories, 108 g protein, and 1467mL total fluid/day. Would start at 15mL /hour and increase slowly by 10mL/hour every 12 hours as tolerated until goal rate is achieved. Lab / Micro Data Result Diagrams: 10/24/22 06:10 10/24/22 06:10 Labs: Laboratory Results - last 24 hr 10/23/22 08:25: Blood Type O POSITIVE, Antibody Screen NEGATIVE, Crossmatch See Detail 10/23/22 13:22: POC Glucose 233 H 10/23/22 17:36: POC Glucose 175 H 10/23/22 23:01: POC Glucose 157 H 10/24/22 06:10: WBC 14.2 H, RBC 2.88 L, Hgb 8.6 L, Hct 26.9 L, MCV 93.4, MCH 29.9, MCHC 32.0, RDW Std Deviation 43.5, RDW Coeff of Jenifer 12.7, Plt Count 386, MPV 9.6, Immature Gran % (Auto) 0.600, Neut % (Auto) 83.0 H, Lymph % (Auto) 7.8 L, [place] % (Auto) 6.4, Eos % (Auto) 1.6, Baso % (Auto) 0.6, Absolute Neuts (auto) 11.8 H, Absolute Lymphs (auto) 1.11, Nucleated RBC % 0 10/24/22 06:10: Sodium 139, Potassium 3.5, Chloride 100, Carbon Dioxide 27.0, Anion Gap 12, BUN 37 H, Creatinine 4.78 H, Estim Creat Clear Calc 15.75, Est GFR (MDRD) Af Amer 16 L, Est GFR (MDRD) Non-Af 13 L, BUN/Creatinine Ratio 7.7 L, Glucose 79, Calcium 8.1 L, Total Bilirubin 0.30, AST 20, ALT 28, Alkaline Phosphatase 96, Total Protein 7.3, Albumin 1.5 L, Globulin 5.8 H, Albumin/Globulin Ratio 0.3 L 10/24/22 06:33: POC Glucose 80 Radiography Diagnostic Testing: Radiology Impression Chest X-Ray 10/23/22 09:15 IMPRESSION: No radiographic evidence of acute cardiopulmonary disease Electronically Signed: Lonnie Umanzor MD at 17:22 EST Reading Location ID and State: [facility] / [place] , Service support , Physical Exam Narrative General: Alert and oriented. No apparent distress. HEENT: Normocephalic, atraumatic. Heart: Normal S1, S2. No rubs, murmurs or gallops. Lungs: Clear to auscultation bilaterally. No rhonchi, rales or wheezing Abdomen: Nondistended, soft Extremities: No edema Tunneled HD catheter dressing clean, dry and intact Assessment & Plan Assessment/Plan (1) GI bleed: PLAN: GI bleed secondary to a likely pressure ulcer associated with a new PEG tube that was placed. It was treated endoscopically with cautery. He is likely iron deficient due to multiple chronic diseases. I agree with transfusion of packed red blood cells and he may also need iron transfusion. Recommend Prevacid via PEG 30 mg twice a day. Follow hemoglobin. Patient will need outpatient endoscopy to ensure that PEG tube is not causing any further pressure ulcers and the current ulcer is healing well. He will likely also need iron transfusions as an outpatient and or oral iron with bowel regimen to prevent constipation. Charges/Coding Visit Charges Inpatient E&M: 71019 Subs Hosp L2
[2022-10-24 08:40] LABS: Hepatitis B Surface Antibody Non-Reactive; Hepatitis B Surface Antigen Non-Reactive (Nonreactive)
--- NOTE | 2022-10-24 10:15 | CASEMGMT ---
SW Note SW met with patient and patient's family and introduced herself and role as [facility] [employer]. Patient's Step Son, Ben, was present and stated patient and family were interested in [facility] so patient could do dialysis at their facility, explaining it would be more convenient as the family might not be able to consistently be present at 7am to assist at the other dialysis facility. SW utilized the white board in the room to verify with patient he wanted to go to [facility] than [facility], patient gave SW a thumbs up. SW then inquired about HCPOA paperwork with patient's step son, the step son reported the patient is still able to make decisions and doesn't need HCPOA. SW utilized the white board in the room again to verify patient didn't want HCPOA completed, patient shook his head no. SW reviewed with patient and family HCPOA forms were not going to be completed at this time and a new referral would be sent to [facility] to see if they can accept patient. Patient's family agreed. SW will continue to follow. Referral sent to [facility] via [employer] Plan: [facility] pending acceptance and precert Janeth Lovett MSW,LEFTY
[2022-10-24] MEDS: Dorzolamide HCL/Timolol 10 ml Bottle 1 DRP OPHTHALMIC ×2 (10:30→21:44)
[2022-10-24] MEDS: Isosorbide DN 10 MG Tablet GT ×2 (10:30→21:45)
[2022-10-24] MEDS: Latanoprost 0.005% 1 Bottle 1 DRP OPHTHALMIC (10:31)
[2022-10-24] MEDS: Carvedilol 25 MG Tablet GT ×2 (10:32→21:44)
[2022-10-24] MEDS: Furosemide 40 MG Tablet GT (10:33)
[2022-10-24] MEDS: amLODIPine 5 MG Tablet GT (10:33)
[2022-10-24] MEDS: Insulin Glargine-YFGN 100 UNIT/ML Pen 25 UNIT SC ×2 (11:03→21:45)
[2022-10-24 11:15] LABS: Bedside Glucose 114 mg/dL (74-106)
[2022-10-24 17:45] LABS: Bedside Glucose 139 mg/dL (74-106)
[2022-10-24] MEDS: Menthol/Lanolin/Calamine/Znox 113 GM Tube 1 APPLIC TOPICAL (21:44)
[2022-10-24] MEDS: Atorvastatin Calcium 40 MG Tablet GT (21:46)
[2022-10-24] MEDS: 0.9% Saline Lock 10 ML Syringe IV (21:55)
[2022-10-24 22:30] LABS: Bedside Glucose 202 mg/dL (74-106)
[2022-10-25] VITALS (10 sets, daily range): BP systolic 124–133; BP diastolic 64–92; PULSE 76–86; RESP 16–20; TEMP 36.3–36.8; O2SAT 94–96
[2022-10-25] MEDS: Insulin Lispro 100 UNIT/ML INSULN.PEN SC ×3 (00:23→16:58)
[2022-10-25 00:50] LABS: Bedside Glucose 198 mg/dL (74-106)
[2022-10-25 05:19] LABS: Absolute Lymphocyte Count 0.94 X10^3/uL (0.83-4.51); Absolute Neutrophil Count 7.7 X10^3/uL (2.0-7.7); Basophil# 0.05 X10^3/uL; Basophil% 0.5 % (0-1); Eosinophil# 0.34 X10^3/uL; Eosinophils% 3.5 % (0-5); Hematocrit 26.8 % (40-54); Hemoglobin 8.5 g/dL (13.0-16.5); Lymphocyte # 0.94 X10^3/ul (0.83-4.51); Lymphocyte % 9.5 % (19-41); Mean Corp Hgb Conc 31.7 g/dL (32-36); Mean Corpuscular Hgb 29.7 pg (27.0-32.0); Mean Corpuscular Volume 93.7 fL (80-94); Mean Platelet Vol. 9.5 fl (6.2-12.0); Monocyte# 0.76 X10^3/uL; Monocyte% 7.7 % (0-10); NRBC Flagged by Analyzer 0 % (0-5); Neutrophil % 78.2 % (47-70); Platelet Count 348 K/mm3 (150-450); RBC Distribution Width CV 12.5 % (11.6-14.6); RBC Distribution Width SD 43.2 fl (35.1-43.9); Red Blood Count 2.86 M/mm3 (4.6-6.2); White Blood Count 9.9 K/mm3 (4.4-11.0)
[2022-10-25 05:31] LABS: Anion Gap 11 (5-15); BUN 51 mg/dL (7-18); BUN/Creat Ratio 8.2 RATIO (10-20); Chloride 100 mmol/L (98-107); Creatinine, Serum 6.21 mg/dL (0.70-1.30); EST Glomerular Filtration Rate 10 mL/min (>60); Est Glom Filt Rate - Afr Amer 12 mL/min (>60); Estimated Creatinine Clearance 12.12 ml/min; Glucose 147 mg/dL (74-106); Potassium 3.7 mmol/L (3.5-5.1); Sodium Level 137 mmol/L (136-145)
[2022-10-25] MEDS: hydrALAZINE 50 MG Tablet GT ×3 (06:06→22:27)
[2022-10-25] MEDS: Vital AF 1.2 Cal Liquid 1,000 ML 45 ML GT (06:06)
[2022-10-25 06:31] LABS: Bedside Glucose 147 mg/dL (74-106)
--- NOTE | 2022-10-25 07:16 | PCM.PN.HOSP ---
Subjective Subjective Follow-up GI bleed, hemoglobin stable. Resting in bed no complaints of abdominal pain Objective Data Objective Data Vital Signs: Vital Signs Temp Pulse Resp BP Pulse Ox O2 Del Method O2 Flow Rate 97.4 F L 76 18 124/64 H 96 Nasal Cannula 2 10/25/22 04:01 10/25/22 06:06 10/25/22 04:01 10/25/22 04:01 10/25/22 04:01 10/25/22 04:01 10/25/22 04:01 Oxygen Flow Rate (L/min) 2 Oxygen Delivery Method Nasal Cannula Weight: 67.2 kg Body Mass Index (BMI) 23.2 Intake & Output: Intake and Output for Last 24 Hours 10/23/22 10/24/22 10/25/22 23:59 23:59 23:59 Intake Total 670 / 670 714.75 / 714.75 865.25 / 865.25 Output Total 325 / 325 625 / 625 100 / 100 Balance 345 / 345 89.75 / 89.75 765.25 / 765.25 Medical Nutrition Assessment Dietitian: Malnutrition Criteria Met Start: 10/22/22 11:20 Freq: Status: Active Protocol: Document 10/23/22 10:10 AZAR (Rec: 10/23/22 10:10 AZAR [id number]) Nutrition Malnutrition Evidence of Malnutrition Exists Yes Malnutrition (severe): Acute Illness/Injury Evidenced By Suboptimal Energy Intake ( Severe),Weight Loss (Severe) Clinical Problem Acute Disease or Injury Related Malnutrition Etiology acute severe malnutrition related to inadequate energy intake d/t dysphagia, intolerance of enteral nutrition Signs/Symptoms as evidenced by unintentional wt loss of 13.6kg/17% x 1 month; estimated PO intake meeting <50% of estimated energy needs for > 5 days over past 1 month Status Active Problem Recommendation Dietitian Recommendations/Changes Pt is chronically NPO d/t dysphagia. As medically appropriate, recommend resume enteral nutrition via PEG- Vital AF 1. 2 at goal rate of 60mL/hour w/ 50mL H2O flush every 4 hours to provide 1728 calories, 108 g protein, and 1467mL total fluid/day. Would start at 15mL /hour and increase slowly by 10mL/hour every 12 hours as tolerated until goal rate is achieved. Lab / Micro Data Result Diagrams: 10/25/22 05:10 10/25/22 05:10 Labs: Laboratory Results - last 24 hr 10/24/22 06:10: Hep Bs Antigen Non-Reactive, Hep Bs Antibody Non-Reactive 10/24/22 10:55: POC Glucose 114 H 10/24/22 17:23: POC Glucose 139 H 10/24/22 21:40: POC Glucose 202 H 10/25/22 00:21: POC Glucose 198 H 10/25/22 05:10: WBC 9.9, RBC 2.86 L, Hgb 8.5 L, Hct 26.8 L, MCV 93.7, MCH 29.7, MCHC 31.7 L, RDW Std Deviation 43.2, RDW Coeff of Jenifer 12.5, Plt Count 348, MPV 9.5, Immature Gran % (Auto) 0.600, Neut % (Auto) 78.2 H, Lymph % (Auto) 9.5 L, [place] % (Auto) 7.7, Eos % (Auto) 3.5, Baso % (Auto) 0.5, Absolute Neuts (auto) 7.7, Absolute Lymphs (auto) 0.94, Nucleated RBC % 0 10/25/22 05:10: Sodium 137, Potassium 3.7, Chloride 100, Carbon Dioxide 26.0, Anion Gap 11, BUN 51 H, Creatinine 6.21 H, Estim Creat Clear Calc 12.12, Est GFR (MDRD) Af Amer 12 L, Est GFR (MDRD) Non-Af 10 L, BUN/Creatinine Ratio 8.2 L, Glucose 147 H, Calcium 8.0 L 10/25/22 05:47: POC Glucose 147 H Micro: Microbiology 10/22/22 08:45 Urine Catheter - Catheter Urine Culture - Final Culture exhibits no growth. Physical Exam Const Constitutional Narrative: Laying in bed, no acute distress HEENT normocephalic and head/scalp atraumatic Eyes Eyes Narrative: EOM grossly intact, anicteric Neck supple Resp normal respiratory effort Resp Narrative: Did have somewhat of a cough while I was in the room Cardio regular rate and regular rhythm GI soft to palpation, non-tender and non-distended Extremity Extremity Narrative: No edema appreciated Neuro moves all extremities Neuro Narrative: No overt focal deficits appreciated Psych Psych Narrative: Cooperative Assessment & Plan Assessment/Plan (1) TREVOR (acute kidney injury): (2) CKD (chronic kidney disease): (3) Benign essential hypertension: (4) Decreased left ventricular systolic function: (5) Macrocytic anemia: (6) 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 He was recently admitted for prolonged period of time for NSTEMI, TREVOR on dialysis, type 1 diabetes with multiple episodes of DKA, and acute hypoxic respiratory failure and had required intubation and subsequent extubation 09/29 and also had dialysis started 09/22 and has remained dependent on that and he was discharged on 10/19 to residential facility. Yesterday he had abdominal pain and emesis that had been reported to be carrasco-colored but in the ED NG tube showed maroon-colored stomach aspirate. He had denied any diarrhea or hematemesis. #Upper GI bleed secondary to gastric ulcer Had maroon-colored stomach aspirate, NG tube placed Does have a history of peptic ulcer disease?on Protonix every 12 Monitor CBC GI consulted Aspirin and Plavix held Presently going for scope with GI 10/23: Was found to have ulcer near PEG tube, this was treated with a heater probe. Tube feeds resumed. hemoglobin 7.4 today from 8.1 yesterday. With his coronary artery disease his threshold should be 8, will transfuse 1 unit packed red blood cells, dialysis today 10/24: Received a unit of packed red blood cells yesterday as his hemoglobin transfusion threshold should be 8 given his coronary history, no further bleeding appreciated at this time. We will have INOCENCIO and iron with dialysis on an outpatient basis 10/25: Hemoglobin stable today, transfusion threshold 8 with cardiac history. Per GI he will need outpatient endoscopy to ensure that PEG tube is not causing any further pressure ulcers and the current ulcer is healing well.? Also have iron and INOCENCIO coordinated through nephrology at dialysis on discharge. Currently on IV PPI here does not appear we have Prevacid on formulary but will need to switch to Prevacid twice daily through PEG tube on discharge and will be important that he take this. #Abnormal urine color Per staff has had hansen colored urine, also on CT had thick-walled urinary bladder which cannot rule out cystitis UA with blood and glucose as well as protein but no bacteria or nitrite, culture pending Does have slightly elevated white count Will check Pro-José Low threshold to start antibiotics if needed 10/24: Urine more clear, does not appear to be infected, culture still pending 10/25: Urine culture negative #Coronary artery disease with multivessel disease Supposed to follow-up outpatient for intervention eval as he needed intervention at a tertiary facility but none were excepting and he was deemed stable for outpatient follow-up for this from a cardiac perspective Aspirin and Plavix have been held Resume beta-gwyn and nitrates when able to take use PEG again 10/24: Resumed home meds #TREVOR on continued hemodialysis Wednesday/Wednesday/Wednesday Nephrology consulted, to have dialysis tomorrow 10/23: For dialysis today 10/24: Had not received dialysis the Wednesday prior to presentation due to concerns with communication and who should sign for his dialysis consent. Working with social work to update paperwork and find a facility for dialysis that has [employer] [place] available. Will be here until next week to coordinate this. Hep B studies ordered per dialysis center request. Likely DC early next week once this is coordinated so safe discharge can be planned #Type 1 diabetes mellitus His long-acting was held due to being n.p.o., will continue to give low doses of sliding scale as needed as due to his type I status he quickly goes into DKA without even small amount of insulin in his system 10/23: Last night restarted long-acting insulin, no anion gap but does still have elevated glucose, will adjust further #Congenital deafness Continued modified communication #Dysphagia PEG tube in place Tube feeds are n.p.o. at this time 10/24: Tube feeds have been resumed at 15, recommendations per dietary 10/25: Tolerating tube feeds. Speech therapy following. Did have a cough when he was in the room but afebrile, no reports of vomiting or aspiration, no white count. Will obtain sputum culture, not wheezing did not add nebs. Low threshold for further investigation #Chronic microcytic anemia Hemoglobin is 7?8 at baseline Will need EPO and iron infusion on an outpatient basis Has not required packed red blood cell transfusion at this time 10/24: Received a unit of blood yesterday due to transfusion threshold being 8 because of his coronary artery disease #DVT ppx: SCDs given bleed Susu Goode MD Charges/Coding Visit Charges Inpatient E&M: 42635 Subs Hosp L2
[2022-10-25] MEDS: Isosorbide DN 10 MG Tablet GT ×2 (11:00→22:33)
[2022-10-25] MEDS: Furosemide 40 MG Tablet GT (11:00)
[2022-10-25] MEDS: Carvedilol 25 MG Tablet GT ×2 (11:00→22:31)
[2022-10-25] MEDS: amLODIPine 5 MG Tablet GT (11:00)
[2022-10-25] MEDS: Latanoprost 0.005% 1 Bottle 1 DRP OPHTHALMIC (11:00)
[2022-10-25] MEDS: Menthol/Lanolin/Calamine/Znox 113 GM Tube 1 APPLIC TOPICAL ×2 (11:01→22:30)
[2022-10-25] MEDS: Dorzolamide HCL/Timolol 10 ml Bottle 1 DRP OPHTHALMIC ×2 (11:01→22:31)
[2022-10-25] MEDS: Insulin Glargine-YFGN 100 UNIT/ML Pen 25 UNIT SC ×2 (11:16→22:32)
[2022-10-25 11:35] LABS: Bedside Glucose 208 mg/dL (74-106)
--- NOTE | 2022-10-25 16:30 | PCM.PROGNOTE ---
Subjective Subjective Patient without any other complaints. Objective Data Objective Data Vital Signs: Vital Signs Temp Pulse Resp BP Pulse Ox O2 Del Method O2 Flow Rate 97.9 F 83 18 125/68 H 95 Nasal Cannula 2 10/25/22 16:00 10/25/22 16:00 10/25/22 16:00 10/25/22 16:00 10/25/22 16:00 10/25/22 16:00 10/25/22 16:00 Oxygen Flow Rate (L/min) 2 Oxygen Delivery Method Nasal Cannula Weight: 148 lb 2.41 oz Body Mass Index (BMI) 23.2 Intake & Output: Intake and Output for Last 24 Hours 10/23/22 10/24/22 10/25/22 23:59 23:59 23:59 Intake Total 670 / 670 714.75 / 714.75 1610.50 / 1610.50 Output Total 325 / 325 625 / 625 100 / 100 Balance 345 / 345 89.75 / 89.75 1510.50 / 1510.50 Medical Nutrition Assessment Dietitian: Malnutrition Criteria Met Start: 10/22/22 11:20 Freq: Status: Active Protocol: Document 10/25/22 10:18 AG (Rec: 10/25/22 10:18 AG [id number]) Nutrition Malnutrition Evidence of Malnutrition Exists Yes Malnutrition (severe): Acute Illness/Injury Evidenced By Suboptimal Energy Intake ( Severe),Weight Loss (Severe) Clinical Problem Acute Disease or Injury Related Malnutrition Etiology acute severe malnutrition related to inadequate energy intake d/t dysphagia, intolerance of enteral nutrition Signs/Symptoms as evidenced by unintentional wt loss of 13.6kg/17% x 1 month; estimated PO intake meeting <50% of estimated energy needs for > 5 days over past 1 month Status Active Problem Recommendation Dietitian Recommendations/Changes Pt is chronically NPO d/t dysphagia; 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 As tolerated recommend advance enteral nutrition via PEG- Vital AF 1.2 at goal rate of 60mL/hour w/ 50mL H2O flush every 4 hours to provide 1728 calories, 108 g protein, and 1467mL total fluid/day. Continue to increase slowly by 10mL/hour every 12 hours as tolerated until goal rate is achieved. Daily wts d/t dialysis and enteral nutrition . Lab / Micro Data Result Diagrams: 10/25/22 05:10 10/25/22 05:10 Labs: Laboratory Results - last 24 hr 10/24/22 17:23: POC Glucose 139 H 10/24/22 21:40: POC Glucose 202 H 10/25/22 00:21: POC Glucose 198 H 10/25/22 05:10: WBC 9.9, RBC 2.86 L, Hgb 8.5 L, Hct 26.8 L, MCV 93.7, MCH 29.7, MCHC 31.7 L, RDW Std Deviation 43.2, RDW Coeff of Jenifer 12.5, Plt Count 348, MPV 9.5, Immature Gran % (Auto) 0.600, Neut % (Auto) 78.2 H, Lymph % (Auto) 9.5 L, [place] % (Auto) 7.7, Eos % (Auto) 3.5, Baso % (Auto) 0.5, Absolute Neuts (auto) 7.7, Absolute Lymphs (auto) 0.94, Nucleated RBC % 0 10/25/22 05:10: Sodium 137, Potassium 3.7, Chloride 100, Carbon Dioxide 26.0, Anion Gap 11, BUN 51 H, Creatinine 6.21 H, Estim Creat Clear Calc 12.12, Est GFR (MDRD) Af Amer 12 L, Est GFR (MDRD) Non-Af 10 L, BUN/Creatinine Ratio 8.2 L, Glucose 147 H, Calcium 8.0 L 10/25/22 05:47: POC Glucose 147 H 10/25/22 11:15: POC Glucose 208 H Micro: Microbiology 10/22/22 08:45 Urine Catheter - Catheter Urine Culture - Final Culture exhibits no growth. Physical Exam Const Constitutional Narrative: Laying in bed, no acute distress HEENT normocephalic and head/scalp atraumatic Eyes Eyes Narrative: EOM grossly intact, anicteric Neck supple Resp normal respiratory effort Resp Narrative: Did have somewhat of a cough while I was in the room Cardio regular rate and regular rhythm GI soft to palpation, non-tender and non-distended Extremity Extremity Narrative: No edema appreciated Neuro moves all extremities Neuro Narrative: No overt focal deficits appreciated Psych Psych Narrative: Cooperative Assessment & Plan Assessment/Plan (1) GI bleed: PLAN: GI bleed secondary to a likely pressure ulcer associated with a new PEG tube that was placed. It was treated endoscopically with cautery. Cointinue Prevacid via PEG 30 mg twice a day. Charges/Coding Visit Charges Inpatient E&M: 52227 Subs Hosp L2
--- NOTE | 2022-10-25 17:13 | PCM.PN.REN ---
Subjective Subjective no new events Objective Data Objective Data Vital Signs: Vital Signs Temp Pulse Resp BP Pulse Ox O2 Del Method O2 Flow Rate 97.9 F 83 18 125/68 H 95 Nasal Cannula 2 10/25/22 16:00 10/25/22 16:00 10/25/22 16:00 10/25/22 16:00 10/25/22 16:00 10/25/22 16:00 10/25/22 16:00 Oxygen Flow Rate (L/min) 2 Oxygen Delivery Method Nasal Cannula Weight: 67.2 kg Body Mass Index (BMI) 23.2 Intake & Output: Intake and Output for Last 24 Hours 10/23/22 10/24/22 10/25/22 23:59 23:59 23:59 Intake Total 670 / 670 714.75 / 714.75 1610.50 / 1610.50 Output Total 325 / 325 625 / 625 100 / 100 Balance 345 / 345 89.75 / 89.75 1510.50 / 1510.50 Medical Nutrition Assessment Dietitian: Malnutrition Criteria Met Start: 10/22/22 11:20 Freq: Status: Active Protocol: Document 10/25/22 10:18 AG (Rec: 10/25/22 10:18 AG [id number]) Nutrition Malnutrition Evidence of Malnutrition Exists Yes Malnutrition (severe): Acute Illness/Injury Evidenced By Suboptimal Energy Intake ( Severe),Weight Loss (Severe) Clinical Problem Acute Disease or Injury Related Malnutrition Etiology acute severe malnutrition related to inadequate energy intake d/t dysphagia, intolerance of enteral nutrition Signs/Symptoms as evidenced by unintentional wt loss of 13.6kg/17% x 1 month; estimated PO intake meeting <50% of estimated energy needs for > 5 days over past 1 month Status Active Problem Recommendation Dietitian Recommendations/Changes Pt is chronically NPO d/t dysphagia; 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 As tolerated recommend advance enteral nutrition via PEG- Vital AF 1.2 at goal rate of 60mL/hour w/ 50mL H2O flush every 4 hours to provide 1728 calories, 108 g protein, and 1467mL total fluid/day. Continue to increase slowly by 10mL/hour every 12 hours as tolerated until goal rate is achieved. Daily wts d/t dialysis and enteral nutrition . Lab / Micro Data Result Diagrams: 10/25/22 05:10 10/25/22 05:10 Labs: Laboratory Results - last 24 hr 10/24/22 17:23: POC Glucose 139 H 10/24/22 21:40: POC Glucose 202 H 10/25/22 00:21: POC Glucose 198 H 10/25/22 05:10: WBC 9.9, RBC 2.86 L, Hgb 8.5 L, Hct 26.8 L, MCV 93.7, MCH 29.7, MCHC 31.7 L, RDW Std Deviation 43.2, RDW Coeff of Jenifer 12.5, Plt Count 348, MPV 9.5, Immature Gran % (Auto) 0.600, Neut % (Auto) 78.2 H, Lymph % (Auto) 9.5 L, [place] % (Auto) 7.7, Eos % (Auto) 3.5, Baso % (Auto) 0.5, Absolute Neuts (auto) 7.7, Absolute Lymphs (auto) 0.94, Nucleated RBC % 0 10/25/22 05:10: Sodium 137, Potassium 3.7, Chloride 100, Carbon Dioxide 26.0, Anion Gap 11, BUN 51 H, Creatinine 6.21 H, Estim Creat Clear Calc 12.12, Est GFR (MDRD) Af Amer 12 L, Est GFR (MDRD) Non-Af 10 L, BUN/Creatinine Ratio 8.2 L, Glucose 147 H, Calcium 8.0 L 10/25/22 05:47: POC Glucose 147 H 10/25/22 11:15: POC Glucose 208 H Micro: Microbiology 10/22/22 08:45 Urine Catheter - Catheter Urine Culture - Final Culture exhibits no growth. Physical Exam Narrative General: Alert and oriented. No apparent distress. HEENT: Normocephalic, atraumatic. Heart: Normal S1, S2. No rubs, murmurs or gallops. Lungs: Clear to auscultation bilaterally. 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 Started on dialysis on 09/22/2022 because of refractory acute hypoxic respiratory failure due to volume overload, acidosis and severe azotemia. - we will continue dialysis on MWF schedule. He dialyzes at [facility] dialysis center as outpatient. -Blood pressures improved. -Hemoglobin 7.4. may need INOCENCIO
[2022-10-25 17:15] LABS: Bedside Glucose 166 mg/dL (74-106)
[2022-10-25] MEDS: Atorvastatin Calcium 40 MG Tablet GT (22:33)
[2022-10-25 22:50] LABS: Bedside Glucose 190 mg/dL (74-106)
[2022-10-26] VITALS (13 sets, daily range): BP systolic 113–132; BP diastolic 59–88; PULSE 70–89; RESP 18–24; TEMP 36.4–37.4; O2SAT 93–95
[2022-10-26 00:26] LABS: Bedside Glucose 142 mg/dL (74-106)
[2022-10-26] MEDS: hydrALAZINE 50 MG Tablet GT ×3 (06:26→21:29)
--- NOTE | 2022-10-26 06:35 | NURSING ---
at 620 Blood sugar was 33, Lab called for back up sugar. 4 oz of apple juice given per protocol. blood sugar checked at 0635 blood sugar up to 48. Another 4 oz of juice given. Pt is not symptomatic. Pt is alert, not diaphoretic. Will Cont to monitor.
--- NOTE | 2022-10-26 06:57 | NURSING ---
Pt cont to be asymptomatic. Blood sugar up to 69, however pt unable to tolerate any more fluids per peg. Blood sugar checked again 69. Will give 1/2 amp d50.
[2022-10-26 07:01] LABS: Absolute Lymphocyte Count 0.76 X10^3/uL (0.83-4.51); Absolute Neutrophil Count 8.9 X10^3/uL (2.0-7.7); Basophil# 0.07 X10^3/uL; Basophil% 0.6 % (0-1); Eosinophils% 3.7 % (0-5); Hematocrit 28.8 % (40-54); Hemoglobin 9.1 g/dL (13.0-16.5); Lymphocyte # 0.76 X10^3/ul (0.83-4.51); Mean Corp Hgb Conc 31.6 g/dL (32-36); Mean Corpuscular Hgb 29.5 pg (27.0-32.0); Mean Corpuscular Volume 93.5 fL (80-94); Mean Platelet Vol. 9.9 fl (6.2-12.0); Monocyte# 0.67 X10^3/uL; Monocyte% 6.2 % (0-10); NRBC Flagged by Analyzer 0 % (0-5); Neutrophil # 8.88 X10^3/uL (2.7-7.7); Platelet Count 430 K/mm3 (150-450); RBC Distribution Width CV 12.5 % (11.6-14.6); RBC Distribution Width SD 42.8 fl (35.1-43.9); Red Blood Count 3.08 M/mm3 (4.6-6.2); White Blood Count 10.8 K/mm3 (4.4-11.0)
[2022-10-26 07:10] LABS: Bedside Glucose 68 mg/dL (74-106)
[2022-10-26 07:10] LABS: Bedside Glucose 48 mg/dL (74-106)
[2022-10-26] MEDS: Dextrose 50%-Water 25 GM/50 ML DISP.SYRIN IV (07:10)
[2022-10-26 07:30] LABS: ALB/GLOB Ratio 0.3 RATIO (0.9-2.4); AST(SGOT) 20 U/L (15-37); Alanine Aminotransfer ALT/SGPT 22 U/L (16-61); Albumin, Serum 1.5 g/dL (3.2-5.0); Alkaline Phosphatase 84 U/L (45-117); Anion Gap 12 (5-15); BUN 63 mg/dL (7-18); BUN/Creat Ratio 8.3 RATIO (10-20); Calcium,Total 8.5 mg/dL (8.5-10.1); Chloride 101 mmol/L (98-107); Creatinine, Serum 7.57 mg/dL (0.70-1.30); EST Glomerular Filtration Rate 8 mL/min (>60); Est Glom Filt Rate - Afr Amer 10 mL/min (>60); Estimated Creatinine Clearance 9.94 ml/min; Globulin 5.9 g/dL (2.2-4.2); Glucose 64 mg/dL (74-106); Potassium 3.6 mmol/L (3.5-5.1); Protein, Total 7.4 g/dL (6.4-8.2); Sodium Level 139 mmol/L (136-145)
[2022-10-26 07:40] LABS: Bedside Glucose 38 mg/dL (74-106)
[2022-10-26 07:40] LABS: Bedside Glucose 33 mg/dL (74-106)
[2022-10-26 08:05] LABS: Bedside Glucose 145 mg/dL (74-106)
--- NOTE | 2022-10-26 09:00 | PCM.PN.HOSP ---
Subjective Subjective Follow-up on upper GI bleed/gastric pressure ulcer/TREVOR/Type 1 DM: Patient was seen and examined. He is deaf and has limited insight. He had hypoglycemia this morning. He was treated with orange juice. He is currently on dialysis. Tube feeds were held yesterday because of high residuals Objective Data Objective Data Vital Signs: Vital Signs Temp Pulse Resp BP Pulse Ox O2 Del Method O2 Flow Rate 97.8 F 89 20 H 127/67 H 94 Nasal Cannula 2 10/26/22 03:00 10/26/22 06:26 10/26/22 03:00 10/26/22 06:26 10/26/22 03:00 10/26/22 03:00 10/26/22 03:00 Oxygen Flow Rate (L/min) 2 Oxygen Delivery Method Nasal Cannula Weight: 66.175 kg Body Mass Index (BMI) 23.2 Intake & Output: Intake and Output for Last 24 Hours 10/24/22 10/25/22 10/26/22 23:59 23:59 23:59 Intake Total 714.75 / 714.75 2216.92 / 2216.92 368 / 368 Output Total 625 / 625 530 / 530 450 / 450 Balance 89.75 / 89.75 1686.92 / 1686.92 -82 / -82 Medical Nutrition Assessment Dietitian: Malnutrition Criteria Met Start: 10/22/22 11:20 Freq: Status: Active Protocol: Document 10/25/22 10:18 (Rec: 10/25/22 10:18 [id number]) Nutrition Malnutrition Evidence of Malnutrition Exists Yes Malnutrition (severe): Acute Illness/Injury Evidenced By Suboptimal Energy Intake ( Severe),Weight Loss (Severe) Clinical Problem Acute Disease or Injury Related Malnutrition Etiology acute severe malnutrition related to inadequate energy intake d/t dysphagia, intolerance of enteral nutrition Signs/Symptoms as evidenced by unintentional wt loss of 13.6kg/17% x 1 month; estimated PO intake meeting <50% of estimated energy needs for > 5 days over past 1 month Status Active Problem Recommendation Dietitian Recommendations/Changes Pt is chronically NPO d/t dysphagia; 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 As tolerated recommend advance enteral nutrition via PEG- Vital AF 1.2 at goal rate of 60mL/hour w/ 50mL H2O flush every 4 hours to provide 1728 calories, 108 g protein, and 1467mL total fluid/day. Continue to increase slowly by 10mL/hour every 12 hours as tolerated until goal rate is achieved. Daily wts d/t dialysis and enteral nutrition . Lab / Micro Data Result Diagrams: 10/26/22 06:40 10/26/22 06:40 Labs: Laboratory Results - last 24 hr 10/25/22 11:15: POC Glucose 208 H 10/25/22 16:57: POC Glucose 166 H 10/25/22 22:32: POC Glucose 190 H 10/26/22 00:06: POC Glucose 142 H 10/26/22 06:08: POC Glucose 33 L* 10/26/22 06:10: POC Glucose 38 L* 10/26/22 06:35: POC Glucose 48 L 10/26/22 06:40: WBC 10.8, RBC 3.08 L, Hgb 9.1 L, Hct 28.8 L, MCV 93.5, MCH 29.5, MCHC 31.6 L, RDW Std Deviation 42.8, RDW Coeff of Jenifer 12.5, Plt Count 430, MPV 9.9, Immature Gran % (Auto) 0.500, Neut % (Auto) 82.0 H, Lymph % (Auto) 7.0 L, [place] % (Auto) 6.2, Eos % (Auto) 3.7, Baso % (Auto) 0.6, Absolute Neuts (auto) 8.9 H, Absolute Lymphs (auto) 0.76 L, Nucleated RBC % 0 10/26/22 06:40: Sodium 139, Potassium 3.6, Chloride 101, Carbon Dioxide 26.0, Anion Gap 12, BUN 63 H, Creatinine 7.57 H*, Estim Creat Clear Calc 9.94, Est GFR (MDRD) Af Amer 10 L, Est GFR (MDRD) Non-Af 8 L, BUN/Creatinine Ratio 8.3 L, Glucose 64 L, Calcium 8.5, Total Bilirubin 0.30, AST 20, ALT 22, Alkaline Phosphatase 84, Total Protein 7.4, Albumin 1.5 L, Globulin 5.9 H, Albumin/Globulin Ratio 0.3 L 10/26/22 06:40: Glucose Cancelled 10/26/22 06:51: POC Glucose 68 L 10/26/22 07:42: POC Glucose 145 H Micro: Microbiology 10/22/22 08:45 Urine Catheter - Catheter Urine Culture - Final Culture exhibits no growth. Physical Exam Narrative Physical exam: General: Alert, unable to assess full orientation, cachectic, pale HEENT: Atraumatic Oral: Moist Mucosa Neck: Supple Lungs:Diminished to auscultation Cardiovascular: HS I+II, regular, no murmurs Abdomen: PEG tube in situ, bowel Sounds Present, Soft, Non Tender Extremities: No edema Skin: No rashes, No breakdown Neurological: Grossly intact Psych/Mental Status: Appropriate Assessment & Plan Assessment/Plan (1) GI bleed: PLAN: Plan 1. Acute upper GI bleed secondary to gastric ulcer/pressure ulcer from new PEG tube, Status post endoscopic cautery Continue on IV PPI twice daily for now, switch to Prevacid at discharge 2. Hypoglycemia in a patient with type I DM, likely secondary to poor intake from tube feed discontinuation on account of high residual. Will resume tube feeds today. Continue on Lantus 25 units twice daily as well as insulin sliding scale 3. Dysphagia status post PEG tube, continue on tube feeds 4. TREVOR, now ESRD, on dialysis, nephrology following 5. Hypertension/hyperlipidemia/CAD, continue on amlodipine, Coreg, hydralazine, isosorbide, atorvastatin 6. Chronic microcytic anemia, status post 1 unit of packed RBC on 10/24 Hb is 9.1, will trend 7. Severe protein calorie malnutrition, continue on tube feeds, nutrition following 8. Congenital deafness, blindness, complicates care, management, recovery and prognosis 9. DVT prophylaxis?SCDs Charges/Coding Visit Charges Inpatient E&M: 17566 Subs Hosp L2
--- NOTE | 2022-10-26 09:12 | CASEMGMT ---
Addendum entered by Elyse Parker 10/26/22 09:15: Uploaded hep B to [facility] portal. TC to Pennie, she states she has spoke with the facility and does not foresee an issue with patient at dialysis. She requests step son to be present at first visit. Once chair time received, will call benjamin. Original Note: Late entry for 10/23/2022 at 5pm. Referral sent to [facility] via portal d/t [facility] unable to meet pt needs. Per Pennie, if nurse does not feel pt is comprehending information for consent, by law pt will need a POA. She is aware pt has not been deemed incompetent. Discussed this with as well. Updated SW to verify if pt would like to complete DPOA.
[2022-10-26] MEDS: Vital AF 1.2 Cal Liquid 1,000 ML 55 ML GT (09:52)
[2022-10-26] MEDS: Carvedilol 25 MG Tablet GT ×2 (09:53→21:28)
[2022-10-26] MEDS: Isosorbide DN 10 MG Tablet GT ×2 (09:53→21:28)
[2022-10-26] MEDS: Dorzolamide HCL/Timolol 10 ml Bottle 1 DRP OPHTHALMIC ×2 (09:53→21:28)
[2022-10-26] MEDS: amLODIPine 5 MG Tablet GT (09:54)
[2022-10-26] MEDS: Latanoprost 0.005% 1 Bottle 1 DRP OPHTHALMIC (09:54)
[2022-10-26] MEDS: Menthol/Lanolin/Calamine/Znox 113 GM Tube 1 APPLIC TOPICAL ×2 (10:18→21:27)
[2022-10-26] MEDS: Insulin Glargine-YFGN 100 UNIT/ML Pen 25 UNIT SC (12:09)
--- NOTE | 2022-10-26 12:12 | CASEMGMT ---
Social Work HUSSEIN spoke with Isamar at [facility] who states pt cannot get onsite dialysis due to renal diagnosis is TREVOR not ESRD. SW met with pt and using white board explained pt would not be able to get dialysis at [facility], will need to be transported to dialysis center. Pt expressing understanding. HUSSEIN then asked if pt would prefer [facility] or [facility] using the white board. Pt reads whiteboard and points to [facility]. SW updated Isamar at [facility] and sent updated clinicals. [facility] is able to accept. Phone call to pt son Ben who states he will be at the hospital shortly. HUSSEIN met with pt, pt son and pt dgt in law who interprets for pt. SW explained that pt cannot receive dialysis at [facility] and that [facility] is unable to accommodate pt. [facility] can take pt with a chair time of MWF 0640. Pt son stating that if pt cannot receive dialysis at [facility], then they prefer pt return to [facility] with dialysis at [facility]. SW requested family discuss this with pt. Family confirms that pt is agreeable to this. Phone call to Lainey at [facility] and they can accept pt back and transport to dialysis. Son updated and agreeable. Precert to be started at this time for the [facility]. [facility] updated to cancel referral. Pt son confirms he will be at initial appointment at [facility] to sign paperwork if needed. Plan: [facility], pending precert JOSLYN Wesley
[2022-10-26 12:15] LABS: Bedside Glucose 124 mg/dL (74-106)
--- NOTE | 2022-10-26 12:27 | CASEMGMT ---
TC from Leslee at [facility]. Gave options of chair time M/W/F of 6:40am or 5:15pm. SW called facility and decided on 6:40am. Pt is pending precert to [facility]. Plan for first dialysis to be on WedOct 28. TC to marcell alexander to make aware of time of dialysis, asked him to be present for this visit. He asked if the dialysis was on site or not. Made him aware it is at [facility]. He asked this RN CM to hold while he let pt know. Call was disconnected. TC back to pt benjamin and he states they are right outside the door and are not giving consent for pt to be trf'd to [facility]. He ended the call. Updated SW.
--- NOTE | 2022-10-26 12:46 | PCM.PROGNOTE ---
Subjective Subjective Patient was found to be hypoglycemia this morning.? He was treated with orange juice.? He is currently on dialysis.? Tube feeds were held yesterday because of high residuals. It is unclear if he is having bloating, nausea, constipation. Objective Data Objective Data Vital Signs: Vital Signs Temp Pulse Resp BP Pulse Ox O2 Del Method O2 Flow Rate 97.9 F 75 24 H 119/68 94 Nasal Cannula 2 10/26/22 10:11 10/26/22 10:11 10/26/22 10:11 10/26/22 10:11 10/26/22 10:11 10/26/22 10:11 10/26/22 10:11 Oxygen Flow Rate (L/min) 2 Oxygen Delivery Method Nasal Cannula Weight: 145 lb 14.252 oz Body Mass Index (BMI) 23.2 Intake & Output: Intake and Output for Last 24 Hours 10/24/22 10/25/22 10/26/22 23:59 23:59 23:59 Intake Total 714.75 / 714.75 2216.92 / 2216.92 418 / 418 Output Total 625 / 625 530 / 530 450 / 450 Balance 89.75 / 89.75 1686.92 / 1686.92 -32 / -32 Medical Nutrition Assessment Dietitian: Malnutrition Criteria Met Start: 10/22/22 11:20 Freq: Status: Active Protocol: Document 10/25/22 10:18 (Rec: 10/25/22 10:18 [id number]) Nutrition Malnutrition Evidence of Malnutrition Exists Yes Malnutrition (severe): Acute Illness/Injury Evidenced By Suboptimal Energy Intake ( Severe),Weight Loss (Severe) Clinical Problem Acute Disease or Injury Related Malnutrition Etiology acute severe malnutrition related to inadequate energy intake d/t dysphagia, intolerance of enteral nutrition Signs/Symptoms as evidenced by unintentional wt loss of 13.6kg/17% x 1 month; estimated PO intake meeting <50% of estimated energy needs for > 5 days over past 1 month Status Active Problem Recommendation Dietitian Recommendations/Changes Pt is chronically NPO d/t dysphagia; 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 As tolerated recommend advance enteral nutrition via PEG- Vital AF 1.2 at goal rate of 60mL/hour w/ 50mL H2O flush every 4 hours to provide 1728 calories, 108 g protein, and 1467mL total fluid/day. Continue to increase slowly by 10mL/hour every 12 hours as tolerated until goal rate is achieved. Daily wts d/t dialysis and enteral nutrition . Lab / Micro Data Result Diagrams: 10/26/22 06:40 10/26/22 06:40 Labs: Laboratory Results - last 24 hr 10/25/22 16:57: POC Glucose 166 H 10/25/22 22:32: POC Glucose 190 H 10/26/22 00:06: POC Glucose 142 H 10/26/22 06:08: POC Glucose 33 L* 10/26/22 06:10: POC Glucose 38 L* 10/26/22 06:35: POC Glucose 48 L 10/26/22 06:40: WBC 10.8, RBC 3.08 L, Hgb 9.1 L, Hct 28.8 L, MCV 93.5, MCH 29.5, MCHC 31.6 L, RDW Std Deviation 42.8, RDW Coeff of Jenifer 12.5, Plt Count 430, MPV 9.9, Immature Gran % (Auto) 0.500, Neut % (Auto) 82.0 H, Lymph % (Auto) 7.0 L, [place] % (Auto) 6.2, Eos % (Auto) 3.7, Baso % (Auto) 0.6, Absolute Neuts (auto) 8.9 H, Absolute Lymphs (auto) 0.76 L, Nucleated RBC % 0 10/26/22 06:40: Sodium 139, Potassium 3.6, Chloride 101, Carbon Dioxide 26.0, Anion Gap 12, BUN 63 H, Creatinine 7.57 H*, Estim Creat Clear Calc 9.94, Est GFR (MDRD) Af Amer 10 L, Est GFR (MDRD) Non-Af 8 L, BUN/Creatinine Ratio 8.3 L, Glucose 64 L, Calcium 8.5, Total Bilirubin 0.30, AST 20, ALT 22, Alkaline Phosphatase 84, Total Protein 7.4, Albumin 1.5 L, Globulin 5.9 H, Albumin/Globulin Ratio 0.3 L 10/26/22 06:40: Glucose Cancelled 10/26/22 06:51: POC Glucose 68 L 10/26/22 07:42: POC Glucose 145 H 10/26/22 11:53: POC Glucose 124 H Micro: Microbiology 10/22/22 08:45 Urine Catheter - Catheter Urine Culture - Final Culture exhibits no growth. Assessment & Plan Assessment/Plan (1) GI bleed: PLAN: GI bleed secondary to a likely pressure ulcer associated with a new PEG tube that was placed. It was treated endoscopically with cautery. Cointinue Prevacid via PEG 30 mg twice a day. (2) Tolerates feeding tube: PLAN: To make sure he tolerates tube feeds I will add Reglan to his routine as he likely has elements of gastroparesis. Charges/Coding Visit Charges Inpatient E&M: 34102 Subs Hosp L2
[2022-10-26] MEDS: 0.9% Saline Lock 10 ML Syringe IV (13:26)
[2022-10-26] MEDS: Aspirin 81 MG TAB.CHEW GT (13:29)
[2022-10-26] MEDS: Clopidogrel Bisulfate 75 MG Tablet GT (13:29)
--- NOTE | 2022-10-26 15:05 | PN.RENAL_ITS ---
Objective Data Objective Data Vital Signs: Vital Signs Temp Pulse Resp BP Pulse Ox O2 Del Method O2 Flow Rate 97.5 F L 74 20 H 118/62 94 Nasal Cannula 2 10/26/22 13:00 10/26/22 13:00 10/26/22 13:00 10/26/22 13:00 10/26/22 13:00 10/26/22 13:00 10/26/22 14:26 Oxygen Flow Rate (L/min) 2 Oxygen Delivery Method Nasal Cannula Weight: 66.175 kg Body Mass Index (BMI) 23.2 Intake & Output: Intake and Output for Last 24 Hours 10/24/22 10/25/22 10/26/22 23:59 23:59 23:59 Intake Total 714.75 / 714.75 2216.92 / 2216.92 778 / 778 Output Total 625 / 625 530 / 530 500 / 500 Balance 89.75 / 89.75 1686.92 / 1686.92 278 / 278 Medical Nutrition Assessment Dietitian: Malnutrition Criteria Met Start: 10/22/22 11:20 Freq: Status: Active Protocol: Document 10/25/22 10:18 AG (Rec: 10/25/22 10:18 AG [id number]) Nutrition Malnutrition Evidence of Malnutrition Exists Yes Malnutrition (severe): Acute Illness/Injury Evidenced By Suboptimal Energy Intake ( Severe),Weight Loss (Severe) Clinical Problem Acute Disease or Injury Related Malnutrition Etiology acute severe malnutrition related to inadequate energy intake d/t dysphagia, intolerance of enteral nutrition Signs/Symptoms as evidenced by unintentional wt loss of 13.6kg/17% x 1 month; estimated PO intake meeting <50% of estimated energy needs for > 5 days over past 1 month Status Active Problem Recommendation Dietitian Recommendations/Changes Pt is chronically NPO d/t dysphagia; [employer] following. As tolerated recommend advance enteral nutrition via PEG- Vital AF 1.2 at goal rate of 60mL/hour w/ 50mL H2O flush every 4 hours to provide 1728 calories, 108 g protein, and 1467mL total fluid/day. Continue to increase slowly by 10mL/hour every 12 hours as tolerated until goal rate is achieved. Daily wts d/t dialysis and enteral nutrition . Lab / Micro Data Result Diagrams: 10/26/22 06:40 10/26/22 06:40 Labs: Laboratory Results - last 24 hr 10/25/22 16:57: POC Glucose 166 H 10/25/22 22:32: POC Glucose 190 H 10/26/22 00:06: POC Glucose 142 H 10/26/22 06:08: POC Glucose 33 L* 10/26/22 06:10: POC Glucose 38 L* 10/26/22 06:35: POC Glucose 48 L 10/26/22 06:40: WBC 10.8, RBC 3.08 L, Hgb 9.1 L, Hct 28.8 L, MCV 93.5, MCH 29.5, MCHC 31.6 L, RDW Std Deviation 42.8, RDW Coeff of Jenifer 12.5, Plt Count 430, MPV 9.9, Immature Gran % (Auto) 0.500, Neut % (Auto) 82.0 H, Lymph % (Auto) 7.0 L, [place] % (Auto) 6.2, Eos % (Auto) 3.7, Baso % (Auto) 0.6, Absolute Neuts (auto) 8.9 H, Absolute Lymphs (auto) 0.76 L, Nucleated RBC % 0 10/26/22 06:40: Sodium 139, Potassium 3.6, Chloride 101, Carbon Dioxide 26.0, Anion Gap 12, BUN 63 H, Creatinine 7.57 H*, Estim Creat Clear Calc 9.94, Est GFR (MDRD) Af Amer 10 L, Est GFR (MDRD) Non-Af 8 L, BUN/Creatinine Ratio 8.3 L, Glucose 64 L, Calcium 8.5, Total Bilirubin 0.30, AST 20, ALT 22, Alkaline Phosphatase 84, Total Protein 7.4, Albumin 1.5 L, Globulin 5.9 H, Albumin/Globulin Ratio 0.3 L 10/26/22 06:40: Glucose Cancelled 10/26/22 06:51: POC Glucose 68 L 10/26/22 07:42: POC Glucose 145 H 10/26/22 11:53: POC Glucose 124 H Micro: Microbiology 10/22/22 08:45 Urine Catheter - Catheter Urine Culture - Final Culture exhibits no growth. Physical Exam Narrative General: Alert and oriented. No apparent distress. HEENT: Normocephalic, atraumatic. Heart: Normal S1, S2. No rubs, murmurs or gallops. Lungs: Clear to auscultation bilaterally. 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 The patient has had a progressive loss of renal function and was started on dialysis on 09/22/2022.? The patient returns to the hospital on 10/21/2022 with abdominal pain and is diagnosed with upper GI bleed.? Nephrology is following for dialysis dependent TREVOR on CKD. Acute kidney injury on chronic kidney disease, unspecified stage. The patient was started on dialysis on 09/22/2022 because of refractory acute hypoxic respiratory failure due to volume overload, acidosis and severe azotemia. Baseline renal function is unclear although serum creatinine was 1.60 mg/dL in February 2021.? The last available serum creatinine in [facility] was from 04/22/2014 at 1.3 mg/dL.? Suspect the patient has underlying diabetic kidney disease.? He has nephrotic range proteinuria and has had longstanding, poorly controlled diabetes with retinopathy. It is possible that he has ESRD secondary to progression of progressive diabetic kidney disease in the setting of poorly controlled diabetes. However, we were never able to biopsy the patient for definitive diagnosis and prognosis because of his inability to tolerate the procedure. So far, there is no evidence of renal recovery.? The patient remains dialysis dependent with oliguria and increasing azotemia between dialysis. The plan is to pursue kidney biopsy if there is no recovery of renal function after 1 month on dialysis.? This can be done as an outpatient. For now, we will continue dialysis on MWF schedule.? He was dialyzing at at [facility] dialysis center as outpatient. I believe he is now being placed at [facility] with dialysis onsite. I will confirm this with case finisher. I supervised the hemodialysis treatment today: F160 dialyzer is used, blood flow 400 mL/min, dialysate flow 600 mL/min. 4K dialysate was used. Hypertension. BP was as high as 207/124 on 09/16/2022. BP has been more reasonably controlled prior to discharge charge on 10/19/2022.? BP is controlled on amlodipine 5 mg/day, carvedilol 25 mg twice a day, and hydralazine 50 mg 3 times a day. CAD with heart failure with reduced ejection fraction?presumably from systolic dysfunction related to ischemia. The patient appears to be compensated. He is on hydralazine/nitrate and beta- gwyn for guideline directed medical therapy of systolic dysfunction. Will continue to remove fluid with dialysis. Anemia. Hemoglobin is low but stable at 9.1 g/dL today.? This is actually better than the day of last discharge (10/19/2022) when his hemoglobin was 7.2 g/dL. We will start IV iron and INOCENCIO with dialysis at outpatient kidney center. Nephrology plan will be discussed with Dr. De La Cruz
--- NOTE | 2022-10-26 15:32 | CASEMGMT ---
Addendum entered by Nikia Ambrose 10/26/22 15:43: Per physician, pt will be ready for discharge tomorrow. Pt son and pt updated on plan to discharge to the [facility] tomorrow. Avenue made aware. JOSLYN Wesley Original Note: Social Work Precert has been obtained and pt can transfer to [facility] today. Physician updated. SW met with pt and son and both made aware of precert for [facility]. SW spoke with pt and son regarding Healthcare POA. SW used white board for communication and pt is able to gesture and use signs to communicate back. Pt agreeable to complete HCPOA naming his step son Ben as HCPOA. SW assisted with completion of document. Original given to Ben to take home and copy placed on pt chart. JOSLYN Wesley
--- NOTE | 2022-10-26 15:58 | NURSING ---
Resumed pt tubefeeds at 11am per Dr. Gabriel. Residuals checked at 1530. 360 ml residual noted that was orange in color. Tubefeeds stopped at this time. Notified Dr. Gabriel and Shantell in dietary that pt is having large residuals.
[2022-10-26] MEDS: Insulin Lispro 100 UNIT/ML INSULN.PEN SC (17:59)
[2022-10-26] MEDS: Metoclopramide 10 MG/2 ML Vial 5 MG IV (18:05)
[2022-10-26 20:50] LABS: Bedside Glucose 159 mg/dL (74-106)
[2022-10-26] MEDS: Atorvastatin Calcium 40 MG Tablet GT (21:28)
[2022-10-26] MEDS: Polyethylene Glycol 3350 17 GM PACKET GT (21:28)
[2022-10-27] VITALS (8 sets, daily range): BP systolic 99–121; BP diastolic 45–60; PULSE 68–95; RESP 18–20; TEMP 36.8–37.3; O2SAT 94–99
[2022-10-27] MEDS: Insulin Lispro 100 UNIT/ML INSULN.PEN SC ×3 (01:41→11:11)
[2022-10-27] MEDS: Metoclopramide 10 MG/2 ML Vial 5 MG IV ×3 (01:41→13:26)
[2022-10-27] MEDS: Insulin Glargine-YFGN 100 UNIT/ML Pen 25 UNIT SC ×2 (01:41→11:15)
[2022-10-27 02:16] LABS: Bedside Glucose 193 mg/dL (74-106)
[2022-10-27] MEDS: hydrALAZINE 50 MG Tablet GT ×2 (06:44→13:27)
[2022-10-27 07:10] LABS: Bedside Glucose 155 mg/dL (74-106)
--- NOTE | 2022-10-27 07:40 | PCM.TXEXTCAR ---
Diet Diet Order/Speech Therapy: 10/22/22 18:54 Diet: Tube Feeding Is pt able to select menu?: No Wound(s) left upper buttocks- old sheared area- mepilex applied: Wound Type: Skin Tear Problem/Diagnosis (1) TREVOR (acute kidney injury): Status: Acute Code(s): N17.9 - Acute kidney failure, unspecified (2) CKD (chronic kidney disease): Status: Deleted Code(s): N18.9 - Chronic kidney disease, unspecified (3) Benign essential hypertension: Status: Chronic Code(s): I10 - Essential (primary) hypertension (4) Decreased left ventricular systolic function: Status: Acute Code(s): I51.9 - Heart disease, unspecified (5) Macrocytic anemia: Status: Acute Code(s): D53.9 - Nutritional anemia, unspecified (6) 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 Acute upper GI bleed secondary to gastric ulcer/pressure ulcer from new PEG tube, Status post endoscopic cautery Continue on IV PPI twice daily for now, switch to Prevacid at discharge 2. Hypoglycemia in a patient with type I DM, likely secondary to poor intake from tube feed discontinuation on account of high residual. Will resume tube feeds today. Continue on Lantus 25 units twice daily as well as insulin sliding scale 3. Dysphagia status post PEG tube, continue on tube feeds 4. TREVOR, now ESRD, on dialysis, nephrology following 5. Hypertension/hyperlipidemia/CAD, continue on amlodipine, Coreg, hydralazine, isosorbide, atorvastatin 6. Chronic microcytic anemia, status post 1 unit of packed RBC on 10/24 Hb is 9.1, will trend 7. Severe protein calorie malnutrition, continue on tube feeds, nutrition following 8. Congenital deafness, blindness, complicates care, management, recovery and prognosis 9. 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 As tolerated, RESTART tf at 15 ml/hr and increase gradually by 15 ml/hr every 8-12 hours as pt tolerates. Recommend enteral nutrition via PEG- Vital AF 1.2 at goal rate of 60mL/hour w/ 50mL H2O flush every 4 hours to provide 1728 calories, 108 g protein, and 1467mL total fluid/day. Daily wts d/t dialysis and enteral nutrition. Discharge Plan Admission Admit Date/Time: 10/21/22 21:57 Attending Provider: Hannah De La Cruz Primary Care Provider: Marta Brooks Consulting Providers: Aries Truong ; Arleth Rodriguez ; Susu Goode Discharge Orders/Prescriptions Prescriptions: No Action (DME) pen needle, diabetic [Comfort EZ Pen [place]] 31 gauge x 5/16 needle See Rx Instructions .ROUTE .MEDSUPPLY Qty: 1,200 Rx Instructions: use to inject insulin 4 x qd latanoprost 0.005 % drops 1 drp OPHTHALMIC DAILY dorzolamide-timolol (PF) 2-0.5 % dropperette 1 drp OPHTHALMIC BID (DME) blood sugar diagnostic [Accu-Chek Guide test strips] Strip See Rx Instructions .ROUTE .MEDSUPPLY Qty: 100 8RF Rx Instructions: test 3 times daily amlodipine 5 mg tablet 5 mg feeding tube DAILY atorvastatin 40 mg Tablet 40 mg G-tube QHS Qty: 30 0RF carvedilol 25 mg Tablet 25 mg G-tube BID Qty: 0 0RF hydralazine 50 mg Tablet 50 mg G-tube TID Qty: 30 0RF fluconazole 40 mg/mL Suspension For Reconstitution 100 mg G-tube DAILY 4 Days Qty: 10 0RF insulin glargine-yfgn 100 unit/mL (3 mL) Insulin Pen 30 unit subcut 0600,1800 Qty: 0 0RF polyethylene glycol 3350 17 gram Powder In Packet 17 g PO BID Qty: 100 0RF ondansetron 4 mg tablet,disintegrating 4 mg PO Q6H PRN (Reason: nausea and vomiting) Qty: 30 0RF omeprazole 20 mg Tablet,Disintegrat, Delay Rel 20 mg PO DAILY furosemide 40 mg tablet 40 mg feeding tube SuTuThSa isosorbide dinitrate 10 mg tablet 10 mg feeding tube BID clopidogrel 75 mg tablet 75 mg feeding tube DAILY aspirin 81 mg tablet,delayed release (DR/EC) 81 mg feeding tube BREAKFAST insulin lispro [Humalog KwikPen Insulin] 100 unit/mL insulin pen See Protocol subcut Q6H Protocol: 4. Sliding Scale Insulin High-Med Dosing Condition: 150-199 mg/dl = 2 units Condition: 200-259 mg/dl = 4 units Condition: 260-324 mg/dl = 6 units Condition: 325-374 mg/dl = 8 units Condition: 375-409 mg/dl = 10 units Condition: 410-449 mg/dl = 11 units Condition: Greater than 449 call physician Protocol Text: - Use for Total Daily Dose of Insulin 56-80 units - Patient who are insulin resistant or septic HIGH MEDIUM DOSING ALGORITHM Referrals / Follow Up: Marta Brooks, [employer] [Primary Care Provider] -
[2022-10-27] MEDS: amLODIPine 5 MG Tablet GT (08:48)
[2022-10-27] MEDS: Aspirin 81 MG TAB.CHEW GT (08:48)
[2022-10-27] MEDS: Clopidogrel Bisulfate 75 MG Tablet GT (08:48)
[2022-10-27] MEDS: Furosemide 40 MG Tablet GT (08:48)
[2022-10-27] MEDS: Dorzolamide HCL/Timolol 10 ml Bottle 1 DRP OPHTHALMIC (08:49)
[2022-10-27] MEDS: Carvedilol 25 MG Tablet GT (08:49)
[2022-10-27] MEDS: Latanoprost 0.005% 1 Bottle 1 DRP OPHTHALMIC (08:49)
[2022-10-27] MEDS: Menthol/Lanolin/Calamine/Znox 113 GM Tube 1 APPLIC TOPICAL (08:50)
--- NOTE | 2022-10-27 09:00 | PCM.PROGNOTE ---
Subjective Subjective Patient is doing very well. He was started back on metoclopramide therapy and he is tolerating his tube feedings. Objective Data Objective Data Vital Signs: Vital Signs Temp Pulse Resp BP Pulse Ox O2 Del Method O2 Flow Rate 98.2 F 68 20 H 107/57 L 96 Nasal Cannula 2 10/27/22 13:33 10/27/22 13:33 10/27/22 13:33 10/27/22 13:33 10/27/22 13:33 10/27/22 13:33 10/27/22 13:33 Oxygen Flow Rate (L/min) 2 Oxygen Delivery Method Nasal Cannula Weight: 145 lb 8.081 oz Body Mass Index (BMI) 23.2 Intake & Output: Intake and Output for Last 24 Hours 10/25/22 10/26/22 10/27/22 23:59 23:59 23:59 Intake Total 2216.92 / 2216.92 1843.58 / 1843.58 592.5 / 592.5 Output Total 530 / 530 530 / 530 210 / 210 Balance 1686.92 / 1686.92 1313.58 / 1313.58 382.5 / 382.5 Lab / Micro Data Result Diagrams: 10/26/22 06:40 10/26/22 06:40 Labs: Laboratory Results - last 24 hr 10/24/22 06:10: Hep B Core Total Ab Negative, Hep B Core IgM Ab Negative 10/26/22 17:49: POC Glucose 159 H 10/27/22 01:39: POC Glucose 193 H 10/27/22 06:43: POC Glucose 155 H 10/27/22 11:10: POC Glucose 167 H Micro: Microbiology 10/27/22 10:38 Nasal Secretion SARS-CoV-2 Antigen (Rapid) - Final 10/22/22 08:45 Urine Catheter - Catheter Urine Culture - Final Culture exhibits no growth. Radiography Diagnostic Testing: Radiology Impression Chest X-Ray 10/27/22 09:47 IMPRESSION: Mild degree of vascular congestion and CHF. Electronically Signed: Eleazar Farrar MD at 12:06 EST , Physical Exam Narrative Physical exam: General: Alert, cachectic, pale HEENT: Atraumatic Oral: Moist Mucosa Neck: Supple Lungs:Diminished to auscultation Cardiovascular: HS I+II, regular, no murmurs Abdomen: PEG tube in situ, bowel Sounds Present, Soft, Non Tender Extremities: No edema Skin: No rashes, No breakdown Neurological: Grossly intact Psych/Mental Status: Appropriate Assessment & Plan Assessment/Plan (1) GI bleed: PLAN: GI bleed secondary to a likely pressure ulcer associated with a new PEG tube that was placed. It was treated endoscopically with cautery. Cointinue Prevacid via PEG 30 mg twice a day. (2) Tolerates feeding tube: PLAN: To make sure he tolerates tube feeds I will add Reglan to his routine as he likely has elements of gastroparesis. Charges/Coding Visit Charges Inpatient E&M: 54457 Subs Hosp L2
--- NOTE | 2022-10-27 09:40 | PCM.TXEXTCAR ---
Diet Diet Order/Speech Therapy: 10/22/22 18:54 Diet: Tube Feeding Is pt able to select menu?: No Routine Orders/Code Status Suppository Type: Dulcolax 10mg Suppository Frequency: Daily PRN O2 Frequency: Continuous Keep PO Greater than or Equal to (%): 94 Routine Lab Work: CBC (within 3 days) and - (CMP within 3 days) Code Status: Full Code Wound(s) left upper buttocks- old sheared area- mepilex applied: Wound Type: Skin Tear Therapies Weight Bearing: Weight bearing as tolerated Physical Therapy: Eval and Treat Occupational Therapy: Eval and Treat Speech Therapy: Eval and Treat Problem/Diagnosis (1) TREVOR (acute kidney injury): Status: Acute Code(s): N17.9 - Acute kidney failure, unspecified (2) Benign essential hypertension: Status: Chronic Code(s): I10 - Essential (primary) hypertension (3) Decreased left ventricular systolic function: Status: Acute Code(s): I51.9 - Heart disease, unspecified (4) Macrocytic anemia: Status: Acute Code(s): D53.9 - Nutritional anemia, unspecified Allergies/Procedures Done in Hospital Allergies No Known Allergies Allergy (Verified 09/15/22 10:39) Procedures: EGD (10/22/22) Type of Care/Length of Stay Estimated LOS: Convalescent Care Less Than 30 days Type of Care Needed: Skilled Rehab Potential: Good Prognosis: Good Additional Orders/Day of Discharge Day of Discharge: 10/27/22 Dietary and Speech Recommendations Dietitian Recommendations/Changes: 1) Pt is chronically NPO d/t dysphagia; continue speech therapy as indicated. 2) Via PEG- Vital AF 1.2 at goal rate of 60mL/hour w/ 50mL H2O flush every 4 hours to provide 1728 calories, 108 g protein, and 1467mL total fluid/day. Currently at 30mL/hour w/ plans to increase by 15mL/hour every 8-12 hours as tolerated until goal rate is achieved. 3) Continue reglan; Given suspected gastroparesis, pt will likely only tolerate an enteral formula that is low in fiber and fat. Nestle equivalent to Vital AF 1.2 is Peptamen AF. 4) Daily wts d/t dialysis and enteral nutrition. Discharge Plan Admission Admit Date/Time: 10/21/22 21:57 Primary Reason for Your Visit: Acute GI bleed Attending Provider: Hannah De La Cruz Primary Care Provider: Marta Brooks Consulting Providers: Aries Truong ; Arleth Rodriguez ; Susu Goode Discharge Orders/Prescriptions Prescriptions: New menthol-zinc oxide [Calmoseptine] 0.44-20.6 % Ointment 1 applic topical BID Qty: 0 0RF Protocol: *Topical Application Instructions APPLICATION INSTRUCTIONS: Apply to coccyx metoclopramide HCl [Reglan] 10 mg tablet 10 mg PO TID Qty: 90 0RF lansoprazole [Prevacid] 30 mg capsule,delayed release(DR/EC) 30 mg feeding tube BID Qty: 60 0RF Continued (DME) pen needle, diabetic [Comfort EZ Pen [place]] 31 gauge x 5/16 needle See Rx Instructions .ROUTE .MEDSUPPLY Qty: 1,200 Rx Instructions: use to inject insulin 4 x qd latanoprost 0.005 % drops 1 drp OPHTHALMIC DAILY dorzolamide-timolol (PF) 2-0.5 % dropperette 1 drp OPHTHALMIC BID (DME) blood sugar diagnostic [Accu-Chek Guide test strips] Strip See Rx Instructions .ROUTE .MEDSUPPLY Qty: 100 8RF Rx Instructions: test 3 times daily amlodipine 5 mg tablet 5 mg feeding tube DAILY atorvastatin 40 mg Tablet 40 mg G-tube QHS Qty: 30 0RF carvedilol 25 mg Tablet 25 mg G-tube BID Qty: 0 0RF hydralazine 50 mg Tablet 50 mg G-tube TID Qty: 30 0RF insulin glargine-yfgn 100 unit/mL (3 mL) Insulin Pen 30 unit subcut 0600,1800 Qty: 0 0RF ondansetron 4 mg tablet,disintegrating 4 mg PO Q6H PRN (Reason: nausea and vomiting) Qty: 30 0RF furosemide 40 mg tablet 40 mg feeding tube SuTuThSa isosorbide dinitrate 10 mg tablet 10 mg feeding tube BID clopidogrel 75 mg tablet 75 mg feeding tube DAILY aspirin 81 mg tablet,delayed release (DR/EC) 81 mg feeding tube BREAKFAST insulin lispro [Humalog KwikPen Insulin] 100 unit/mL insulin pen See Protocol subcut Q6H Protocol: 4. Sliding Scale Insulin High-Med Dosing Condition: 150-199 mg/dl = 2 units Condition: 200-259 mg/dl = 4 units Condition: 260-324 mg/dl = 6 units Condition: 325-374 mg/dl = 8 units Condition: 375-409 mg/dl = 10 units Condition: 410-449 mg/dl = 11 units Condition: Greater than 449 call physician Protocol Text: - Use for Total Daily Dose of Insulin 56-80 units - Patient who are insulin resistant or septic HIGH MEDIUM DOSING ALGORITHM Changed polyethylene glycol 3350 17 gram Powder In Packet 17 g PO BID PRN (Reason: constipation) Qty: 100 0RF Discontinued fluconazole 40 mg/mL Suspension For Reconstitution 100 mg G-tube DAILY 4 Days Qty: 10 0RF omeprazole 20 mg Tablet,Disintegrat, Delay Rel 20 mg PO DAILY Referrals / Follow Up: Marta Brooks NP-C [Primary Care Provider] - (as scheduled) Damián Deleon DO [Med Staff - Active Staff] - Within 2 Weeks Disposition Disposition (needs filled in before D/C Order can be placed): [facility]
--- NOTE | 2022-10-27 09:47 | RAD_ITS ---
STUDY: X-RAY CHEST REASON FOR EXAM: Male, 57 years old. SOB TECHNIQUE: Single AP portable view of the chest. COMPARISON: Comparison is made with prior study dated 10/23/2022. FINDINGS: A left-sided double-lumen catheter is seen with the tip at the junction of the superior vena cava and right atrium. Mild degree of vascular congestion and mild CHF. There is no demonstrated pleural abnormality. Normal size heart. Normal mediastinum and aric. Normal visualized pulmonary arteries. Normal visualized aortic arch and descending thoracic aorta. Normal visualized thoracic spine. There is degenerative osteoarthritis of the bilateral shoulders. There is no demonstrated abnormality of the visualized soft tissue structures of the upper abdomen. RAD/Chest 1 View (Portable) IMPRESSION: Mild degree of vascular congestion and CHF. Electronically Signed: Eleazar Farrar MD at 12:06 EST ,
--- NOTE | 2022-10-27 09:58 | DS.PCM_ITS ---
Providers Date of Admission: 10/21/22 Date of Discharge: 10/27/22 Primary Care Physician: ZELDA Virk Consultations 10/21/22 23:20 Consult: Gastroenterology Routine Consulting Provider: Afshin Gastroenterology Reason for Consult: upper GI bleed EMERGENT Consult: No Notified: Yes Date Notified: 10/21/22 Time Notified: 22:53 Method of Notification: Text 10/22/22 01:30 Consult: Nephrology Routine Consulting Provider: Aries Truong Reason for Consult: TREVOR; dialysis dependent EMERGENT Consult: No Notified: Yes Date Notified: 10/22/22 Time Notified: 01:30 Method of Notification: Text Reason For Visit: GI BLEED Diagnosis Discharge Diagnosis (1) TREVOR (acute kidney injury): Status: Acute Code(s): N17.9 - Acute kidney failure, unspecified (2) Benign essential hypertension: Status: Chronic Code(s): I10 - Essential (primary) hypertension (3) Decreased left ventricular systolic function: Status: Acute Code(s): I51.9 - Heart disease, unspecified (4) Macrocytic anemia: Status: Acute Code(s): D53.9 - Nutritional anemia, unspecified Plan 1. Acute upper GI bleed 2. Hypoglycemia 3. Dysphagia status post PEG tube placement 4. TREVOR now ESRD 5. Type I DM 6. Hypertension 7. Hyperlipidemia 8. CAD 9. Microcytic anemia 10. Severe protein calorie malnutrition 11. Congenital deafness 12. Congenital blindness Medications at Discharge Home Medications dorzolamide-timolol (PF) 2 %-0.5 % eye drops in a dropperette 1 drp ophthalmic (eye) BID eyes 01/04/20 latanoprost 0.005 % eye drops 1 drp ophthalmic (eye) DAILY eyes 01/04/20 pen needle, diabetic 31 gauge x 5/16 (Comfort EZ Pen [place]) #1,200 ea 01/04/20 blood sugar diagnostic (Accu-Chek Guide test strips) #100 ea 03/07/20 amlodipine 5 mg tablet 5 mg feeding tube DAILY BP 09/14/22 atorvastatin 40 mg tablet 40 mg G-tube QHS #30 tabs 10/19/22 carvedilol 25 mg tablet 25 mg G-tube BID #0 tabs 10/19/22 hydralazine 50 mg tablet 50 mg G-tube TID #30 tabs 10/19/22 insulin glargine-yfgn 100 unit/mL (3 mL) subcutaneous pen 30 unit (0.3 mL) subcut 0600,1800 #0 mL 10/19/22 ondansetron 4 mg disintegrating tablet 4 mg PO Q6H PRN nausea and vomiting #30 tabs 10/19/22 aspirin 81 mg tablet,delayed release 81 mg feeding tube BREAKFAST 10/21/22 clopidogrel 75 mg tablet 75 mg feeding tube DAILY 10/21/22 furosemide 40 mg tablet 40 mg feeding tube SuTuThSa 10/21/22 insulin lispro 100 unit/mL subcutaneous pen (Humalog KwikPen (U-100) Insulin) See Protocol subcut Q6H DM 10/21/22 isosorbide dinitrate 10 mg tablet 10 mg feeding tube BID 10/21/22 lansoprazole 30 mg capsule,delayed release (Prevacid) 30 mg feeding tube BID #60 caps 10/27/22 menthol 0.44 %-zinc oxide 20.6 % topical ointment (Calmoseptine) 1 applic topical BID #0 grams 10/27/22 metoclopramide HCl 10 mg tablet (Reglan) 10 mg PO TID #90 tabs 10/27/22 polyethylene glycol 3350 17 gram oral powder packet 17 g PO BID PRN constipation #100 ea 10/27/22 Hospital Course Summary of Care Provided Minutes Spent on Discharge: 35 Hospital Course: 57-year-old male with past medical history of congenital blindness and deafness, recently discharged from the hospital with hypoglycemia, acute non-STEMI, ischemic cardiomyopathy and acute kidney injury. Patient had had cardiac cath done which showed a multivessel disease and medical management was recommended. He was started on dialysis for his acute kidney injury and transition to Wednesday?Wednesday?Wednesday dialysis via tunneled dialysis catheter. Patient was discharged on 10/19/2022 to the group home facility. He presented back on 10/21/2022 with abdominal pain and hematemesis. NG tube aspirate showed maroon-colored aspirate. His vitals were stable in the emergency room. Hemoglobin was 8.2. WBC count 14.5. CT abdominal pelvis showed pulmonary infiltrates. Chest x-ray showed no acute cardiopulmonary process. Gastroenterology was consulted from the emergency room. Patient was started on IV PPI. His aspirin and Plavix were held. Nephrology was also consulted for dialysis. Patient underwent EGD on 10/22/22. Findings showed an oozing gastric ulcer with a visible vessel that was treated with a heater probe. It was believed to be a pressure ulcer from his gastrostomy. Patient was slowly resumed back on his tube feeds. He was kept on IV PPI twice daily. He did have an episode of high tube feed residuals. His tube feeds were held briefly. They will resume at a lower rate in consultation with nutrition. He was also started on Reglan that appeared to help. Patient was discharged to a group home facility on Prevacid 30 mg p.o. twice daily as well as Reglan 10 mg p.o. 3 times daily. He will follow-up with GI within 2 weeks. He will need repeat endoscopy in 2 months. Physical Exam Narrative Physical exam: General: Alert, cachectic, pale HEENT: Atraumatic Oral: Moist Mucosa Neck: Supple Lungs:Diminished to auscultation Cardiovascular: HS I+II, regular, no murmurs Abdomen: PEG tube in situ, bowel Sounds Present, Soft, Non Tender Extremities: No edema Skin: No rashes, No breakdown Neurological: Grossly intact Psych/Mental Status: Appropriate Medical Records Data Medical Nutrition Assessment Dietitian: Malnutrition Criteria Met Start: 10/22/22 11:20 Freq: Status: Active Protocol: Document 10/27/22 09:33 (Rec: 10/27/22 09:33 [id number]) Nutrition Malnutrition Evidence of Malnutrition Exists Yes Malnutrition (severe): Acute Illness/Injury Evidenced By Suboptimal Energy Intake ( Severe),Weight Loss (Severe) Clinical Problem Acute Disease or Injury Related Malnutrition Etiology acute severe malnutrition related to inadequate energy intake d/t dysphagia, intolerance of enteral nutrition Signs/Symptoms as evidenced by unintentional wt loss of 13.6kg/17% x 1 month; estimated PO intake meeting <50% of estimated energy needs for > 5 days over past 1 month Status Active Problem Recommendation Dietitian Recommendations/Changes 1) Pt is chronically NPO d/t dysphagia; continue speech therapy as indicated. 2) Via PEG- Vital AF 1.2 at goal rate of 60mL/hour w/ 50mL H2O flush every 4 hours to provide 1728 calories, 108 g protein, and 1467mL total fluid/day. Currently at 30mL/ hour w/ plans to increase by 15mL/hour every 8-12 hours as tolerated until goal rate is achieved. 3) Continue reglan; Given suspected gastroparesis, pt will likely only tolerate an enteral formula that is low in fiber and fat. Nestle equivalent to Vital AF 1.2 is Peptamen AF. 4) Daily wts d/t dialysis and enteral nutrition. Weight / BMI Weight Weight: 66 kg Body Mass Index (BMI) 23.2 ABG / Lab / Microbiology Data Result Diagrams: 10/26/22 06:40 10/26/22 06:40 Laboratory: Laboratory Results - last 24 hr 10/26/22 11:53: POC Glucose 124 H 10/26/22 17:49: POC Glucose 159 H 10/27/22 01:39: POC Glucose 193 H 10/27/22 06:43: POC Glucose 155 H Microbiology: Microbiology 10/22/22 08:45 Urine Catheter - Catheter Urine Culture - Final Culture exhibits no growth. D/C Instructions Discharge Diet: 2000 Calorie Control Diet and Renal Diet Meaningful Use Info Meaningful Use Diagnoses (Choose all that apply): None applicable Discharge Plan Admission Admit Date/Time: 10/21/22 21:57 Primary Reason for Your Visit: Acute GI bleed Attending Provider: Hannah De La Cruz Primary Care Provider: Marta Brooks Consulting Providers: Aries Truong ; Arleth Rodriguez ; Susu Goode Discharge Orders/Prescriptions Prescriptions: New menthol-zinc oxide [Calmoseptine] 0.44-20.6 % Ointment 1 applic topical BID Qty: 0 0RF Protocol: *Topical Application Instructions APPLICATION INSTRUCTIONS: Apply to coccyx metoclopramide HCl [Reglan] 10 mg tablet 10 mg PO TID Qty: 90 0RF lansoprazole [Prevacid] 30 mg capsule,delayed release(DR/EC) 30 mg feeding tube BID Qty: 60 0RF Continued (DME) pen needle, diabetic [Comfort EZ Pen [place]] 31 gauge x 5/16 needle See Rx Instructions .ROUTE .MEDSUPPLY Qty: 1,200 Rx Instructions: use to inject insulin 4 x qd latanoprost 0.005 % drops 1 drp OPHTHALMIC DAILY dorzolamide-timolol (PF) 2-0.5 % dropperette 1 drp OPHTHALMIC BID (DME) blood sugar diagnostic [Accu-Chek Guide test strips] Strip See Rx Instructions .ROUTE .MEDSUPPLY Qty: 100 8RF Rx Instructions: test 3 times daily amlodipine 5 mg tablet 5 mg feeding tube DAILY atorvastatin 40 mg Tablet 40 mg G-tube QHS Qty: 30 0RF carvedilol 25 mg Tablet 25 mg G-tube BID Qty: 0 0RF hydralazine 50 mg Tablet 50 mg G-tube TID Qty: 30 0RF insulin glargine-yfgn 100 unit/mL (3 mL) Insulin Pen 30 unit subcut 0600,1800 Qty: 0 0RF ondansetron 4 mg tablet,disintegrating 4 mg PO Q6H PRN (Reason: nausea and vomiting) Qty: 30 0RF furosemide 40 mg tablet 40 mg feeding tube SuTuThSa isosorbide dinitrate 10 mg tablet 10 mg feeding tube BID clopidogrel 75 mg tablet 75 mg feeding tube DAILY aspirin 81 mg tablet,delayed release (DR/EC) 81 mg feeding tube BREAKFAST insulin lispro [Humalog KwikPen Insulin] 100 unit/mL insulin pen See Protocol subcut Q6H Protocol: 4. Sliding Scale Insulin High-Med Dosing Condition: 150-199 mg/dl = 2 units Condition: 200-259 mg/dl = 4 units Condition: 260-324 mg/dl = 6 units Condition: 325-374 mg/dl = 8 units Condition: 375-409 mg/dl = 10 units Condition: 410-449 mg/dl = 11 units Condition: Greater than 449 call physician Protocol Text: - Use for Total Daily Dose of Insulin 56-80 units - Patient who are insulin resistant or septic HIGH MEDIUM DOSING ALGORITHM Changed polyethylene glycol 3350 17 gram Powder In Packet 17 g PO BID PRN (Reason: constipation) Qty: 100 0RF Discontinued fluconazole 40 mg/mL Suspension For Reconstitution 100 mg G-tube DAILY 4 Days Qty: 10 0RF omeprazole 20 mg Tablet,Disintegrat, Delay Rel 20 mg PO DAILY Referrals / Follow Up: Damián Deleon DO [Med Staff - Active Staff] - Within 2 Weeks Marta Brooks NP-C [Primary Care Provider] - (as scheduled) Disposition Disposition (needs filled in before D/C Order can be placed): [facility] acility Charges/Coding Visit Charges Inpatient E&M: 71825 Disch Hosp >30min
--- NOTE | 2022-10-27 10:32 | CASEMGMT ---
Addendum entered by Malena Pimentel 10/27/22 11:48: Social Work Covid result sent via [facility]. ROSENDO Hays Original Note: Social Work Pt is ready for discharge. All paperwork including information on diet sent to [facility] via [facility]. SW also faxed over tapper helper note. SW set up transport w/Physicians for 2:30pm. SW let pt, pt's step fabiola Contreras, pt's bedside RN, and Lainey at [facility] know time of pickup. Pt's step fabiola Contreras stated he would meet pt at [facility]. SW let pt know via the white board in his room. SW also did let Lainey know that the tapper helper information was sent over for the tapper helper at [facility]. No further needs anticipated, pt to [facility] skilled today. ROSENDO Hays
[2022-10-27 12:08] LABS: Hepatitis B Core Ab Total Negative (Negative)
[2022-10-27 12:20] LABS: Bedside Glucose 167 mg/dL (74-106)
[2022-10-27] MEDS: Acetaminophen 650 MG/20 ML UDC GT (12:48)
[2022-10-27] MEDS: Isosorbide DN 10 MG Tablet GT (14:18)
[2022-10-27 14:24] LABS: Hepatitis B Core AB IgM Negative (Negative)
--- NOTE | 2022-10-27 14:30 | PCM.PN.REN ---
Objective Data Objective Data Vital Signs: Vital Signs Temp Pulse Resp BP Pulse Ox O2 Del Method O2 Flow Rate 98.2 F 68 20 H 107/57 L 96 Nasal Cannula 2 10/27/22 13:33 10/27/22 13:33 10/27/22 13:33 10/27/22 13:33 10/27/22 13:33 10/27/22 13:33 10/27/22 13:33 Oxygen Flow Rate (L/min) 2 Oxygen Delivery Method Nasal Cannula Weight: 66 kg Body Mass Index (BMI) 23.2 Intake & Output: Intake and Output for Last 24 Hours 10/25/22 10/26/22 10/27/22 23:59 23:59 23:59 Intake Total 2216.92 / 2216.92 1843.58 / 1843.58 592.5 / 592.5 Output Total 530 / 530 530 / 530 210 / 210 Balance 1686.92 / 1686.92 1313.58 / 1313.58 382.5 / 382.5 Medical Nutrition Assessment Dietitian: Malnutrition Criteria Met Start: 10/22/22 11:20 Freq: Status: Active Protocol: Document 10/27/22 09:33 AG (Rec: 10/27/22 09:33 [id number]) Nutrition Malnutrition Evidence of Malnutrition Exists Yes Malnutrition (severe): Acute Illness/Injury Evidenced By Suboptimal Energy Intake ( Severe),Weight Loss (Severe) Clinical Problem Acute Disease or Injury Related Malnutrition Etiology acute severe malnutrition related to inadequate energy intake d/t dysphagia, intolerance of enteral nutrition Signs/Symptoms as evidenced by unintentional wt loss of 13.6kg/17% x 1 month; estimated PO intake meeting <50% of estimated energy needs for > 5 days over past 1 month Status Active Problem Recommendation Dietitian Recommendations/Changes 1) Pt is chronically NPO d/t dysphagia; continue speech therapy as indicated. 2) Via PEG- Vital AF 1.2 at goal rate of 60mL/hour w/ 50mL H2O flush every 4 hours to provide 1728 calories, 108 g protein, and 1467mL total fluid/day. Currently at 30mL/ hour w/ plans to increase by 15mL/hour every 8-12 hours as tolerated until goal rate is achieved. 3) Continue reglan; Given suspected gastroparesis, pt will likely only tolerate an enteral formula that is low in fiber and fat. Nestle equivalent to Vital AF 1.2 is Peptamen AF. 4) Daily wts d/t dialysis and enteral nutrition. Lab / Micro Data Result Diagrams: 10/26/22 06:40 10/26/22 06:40 Labs: Laboratory Results - last 24 hr 10/24/22 06:10: Hep B Core Total Ab Negative, Hep B Core IgM Ab Negative 10/26/22 17:49: POC Glucose 159 H 10/27/22 01:39: POC Glucose 193 H 10/27/22 06:43: POC Glucose 155 H 10/27/22 11:10: POC Glucose 167 H Micro: Microbiology 10/27/22 10:38 Nasal Secretion SARS-CoV-2 Antigen (Rapid) - Final 10/22/22 08:45 Urine Catheter - Catheter Urine Culture - Final Culture exhibits no growth. Radiography Diagnostic Testing: Radiology Impression Chest X-Ray 10/27/22 09:47 IMPRESSION: Mild degree of vascular congestion and CHF. Electronically Signed: Eleazar Farrar MD at 12:06 EST , Physical Exam Narrative General: Alert and oriented. No apparent distress. HEENT: Normocephalic, atraumatic. Heart: Normal S1, S2. No rubs, murmurs or gallops. Lungs: Clear to auscultation bilaterally. 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 The patient has had a progressive loss of renal function and was started on dialysis on 09/22/2022.? The patient returns to the hospital on 10/21/2022 with abdominal pain and is diagnosed with upper GI bleed.? Nephrology is following for dialysis dependent TREVOR on CKD. Acute kidney injury on chronic kidney disease, unspecified stage. The patient was started on dialysis on 09/22/2022 because of refractory acute hypoxic respiratory failure due to volume overload, acidosis and severe azotemia. Baseline renal function is unclear although serum creatinine was 1.60 mg/dL in February 2021.? The last available serum creatinine in [facility] was from 04/22/2014 at 1.3 mg/dL.? Suspect the patient has underlying diabetic kidney disease.? He has nephrotic range proteinuria and has had longstanding, poorly controlled diabetes with retinopathy. It is possible that he has ESRD secondary to progression of progressive diabetic kidney disease in the setting of poorly controlled diabetes. However, we were never able to biopsy the patient for definitive diagnosis and prognosis because of his inability to tolerate the procedure. So far, there is no evidence of renal recovery.? The patient remains dialysis dependent with oliguria and increasing azotemia between dialysis. The plan is to pursue kidney biopsy if there is no recovery of renal function after 1 month on dialysis.? This can be done as an outpatient. For now, we will continue dialysis on MWF schedule.? He was dialyzing at at [facility] as outpatient. I believe he is now being placed at [facility] with dialysis onsite. I will confirm this with lining caser. I supervised the hemodialysis treatment today: F160 dialyzer is used, blood flow 400 mL/min, dialysate flow 600 mL/min. 4K dialysate was used. Hypertension. BP was as high as 207/124 on 09/16/2022. BP has been more reasonably controlled prior to discharge charge on 10/19/2022.? BP is controlled on amlodipine 5 mg/day, carvedilol 25 mg twice a day, and hydralazine 50 mg 3 times a day. CAD with heart failure with reduced ejection fraction?presumably from systolic dysfunction related to ischemia. The patient appears to be compensated. He is on hydralazine/nitrate and beta-gwyn for guideline directed medical therapy of systolic dysfunction. Will continue to remove fluid with dialysis. Anemia. Hemoglobin is low but stable at 9.1 g/dL today.? This is actually better than the day of last discharge (10/19/2022) when his hemoglobin was 7.2 g/dL. We will start IV iron and INOCENCIO with dialysis at outpatient kidney center. Nephrology plan will be discussed with Dr. De La Cruz
--- NOTE | 2022-10-27 14:53 | CASEMGMT ---
Addendum entered by Kendal Petersen 10/27/22 15:02: ISABEL CAMARA also spoke w/Faye @ [facility]. She confirms they are aware pt discharged to [facility] today and pt to start OP HD tomorrow. Original Note: ISABEL CAMARA NOTE: Dr Bey aware pt discharged to [facility] today. He spoke w/[facility] and they are aware pt has been discharged. Kena ADAIRN ISABEL CAMARA
--- NOTE | 2022-10-27 15:17 | CASEMGMT ---
Nurse for [facility] requested dialysis cath info to be uploaded to portal. This was completed.
== END 2022-10-27 14:35 | DRG 377 ==
LOC: ED 21:42 → MS2 22:30
PROVIDERS: Internal Medicine; Internal Medicine Gastroenterology; Admitting Provider Student in an Organized Health Care Education/Training Program; Emergency Provider Emergency Medicine; PCP Nurse Practitioner Family; Visit Provider Internal Medicine
PROC: 0DJ08ZZ Inspection of Upper Intestinal Tract, Via Natural or Artificial Opening Endoscopic (ICD-10-PCS; CPT 43235; principal; 2022-10-22 11:55)
DX: K25.0 Acute gastric ulcer with hemorrhage (principal); N18.6 End stage renal disease; E43 Unspecified severe protein-calorie malnutrition; I13.11 Hypertensive heart and chronic kidney disease without heart failure, with stage 5 chronic kidney disease, or end stage renal disease; N17.9 Acute kidney failure, unspecified; E10.649 Type 1 diabetes mellitus with hypoglycemia without coma; E10.319 Type 1 diabetes mellitus with unspecified diabetic retinopathy without macular edema; L89.899 Pressure ulcer of other site, unspecified stage; K31.84 Gastroparesis; E10.22 Type 1 diabetes mellitus with diabetic chronic kidney disease; D50.9 Iron deficiency anemia, unspecified; E10.43 Type 1 diabetes mellitus with diabetic autonomic (poly)neuropathy; Z99.2 Dependence on renal dialysis; Z79.4 Long term (current) use of insulin; Z93.1 Gastrostomy status; D53.9 Nutritional anemia, unspecified; E78.5 Hyperlipidemia, unspecified; I25.10 Atherosclerotic heart disease of native coronary artery without angina pectoris; I25.2 Old myocardial infarction; H90.5 Unspecified sensorineural hearing loss; Z79.82 Long term (current) use of aspirin; Z79.02 Long term (current) use of antithrombotics/antiplatelets; R13.10 Dysphagia, unspecified
CPT/HCPCS: 36415; 71045; 74018; 74176; 80048; 80053; 81001; 82962; 83605; 83690; 83735; 84100; 84145; 85025; 86704; 86705; 86706; 86850; 86900; 86901; 86920; 87086; 87340; 87426; 90937; 92526; 92610; 93005; 97110; 97162; 97166; 97530; 97535; 97802; 97803; 99285; J7030; J7040; J7050; P9016; A4216; G0257; J2405

== ENCOUNTER 2022-10-29 03:22 | Emergency (ER) | payer MEDICARE, SELFPAY ==
[2022-10-29 03:26] VITALS: BP 117/71; PULSE 101; RESP 18; TEMP 36.2; O2SAT 92; BMI 23.3
--- NOTE | 2022-10-29 03:37 | CT_ITS ---
EXAM: CT CERVICAL SPINE WITHOUT INTRAVENOUS CONTRAST CLINICAL INDICATION: fall TECHNIQUE: Helically acquired images were obtained of the cervical spine without intravenous contrast. 2D reformatted images were reviewed. This CT exam was performed using one or more of the following dose reduction techniques: automated exposure control, adjustment of the mA and/or kV according to patient size, and/or use of iterative reconstruction technique. This report was created using [employer] report generation technology. RADIATION DOSE: Total DLP: 397.38 mGy-cm. COMPARISON: None. FINDINGS: VERTEBRAE: Rightward convex curvature of the cervical spine. No subluxation. No compression fracture. Facet arthritis. No facet dislocation or posterior element fracture. The odontoid is intact. DISCS/SPINAL CANAL/NEURAL FORAMINA: Severe degenerative narrowing of the C4/5 and C5/6 disc spaces with endplate sclerosis, marginal osteophytes and uncinate hypertrophy. Moderate flattening of the ventral aspect of the thecal sac at these 2 degenerated levels due to annular bulges and posterior osteophytes, greater to the right of midline. Multilevel neural foraminal encroachment is present due to uncinate and facet hypertrophy, right greater than left. SOFT TISSUES: Unremarkable. No prevertebral soft tissue swelling. MASTOID AIR CELLS: Visualized mastoid air cells are clear. LUNG APICES: Extensive asymmetric airspace disease in the right upper lobe, most likely pneumonia with contusion felt less likely. No apical pneumothorax. Visualized upper ribs are intact. TUBES, LINES AND DEVICES: Central venous catheter in place. CT/Spine Cervical without Contras IMPRESSION: Cervical degenerative changes. No acute fracture or subluxation. Asymmetric airspace disease in the right upper lobe, suspicious for pneumonia. Electronically Signed: Manish Logan MD at 4:58 EST ,
--- NOTE | 2022-10-29 03:37 | RAD_ITS ---
STUDY: X-RAY - PELVIS REASON FOR EXAM: Male, 57 years old. fall TECHNIQUE: One view of the pelvis was obtained. COMPARISON: CT abdomen and pelvis October 21, 2022. FINDINGS: There is a non-specific bowel gas pattern. Normal visualized soft tissue structures. Lopez catheter tip overlies the bladder. Normal bilateral iliac wings, sacroiliac joints and visualized sacrum. Normal visualized bilateral superior and inferior pubic rami. Normal pubic symphysis. Normal ischial tuberosities. Normal visualized right femoral head. Normal right acetabulum. Normal right hip joint. Normal visualized left femoral head. Normal left acetabulum. Normal left hip joint. RAD/Pelvis 1 or 2 Views IMPRESSION: No acute findings in the pelvis. No fracture identified. Electronically Signed: Agustin Bills MD at 4:38 EST Reading Location ID and State: [id number] / , Service support ,
--- NOTE | 2022-10-29 03:37 | CT_ITS ---
EXAM: CT CHEST WITHOUT INTRAVENOUS CONTRAST CLINICAL INDICATION: aspiration TECHNIQUE: Helically acquired images were obtained of the chest without intravenous contrast. This CT exam was performed using one or more of the following dose reduction techniques: automated exposure control, adjustment of the mA and/or kV according to patient size, and/or use of iterative reconstruction technique. This report was created using [employer] report generation technology. RADIATION DOSE: Total DLP: 554.35 mGy-cm. COMPARISON: Portable chest radiograph of 10/27/2022. Cervical spine CT of this date. FINDINGS: LUNGS AND PLEURAL SPACES: Minimal patchy airspace disease has developed within the dependent portion of the left lower lobe. Extensive patchy airspace disease has developed within the right upper lobe. Mild patchy airspace disease has developed within the right middle lobe and right lower lobe. Minimal atelectasis also noted within the dependent portion of the right lower lobe. No mass. No pleural effusion or pneumothorax. HEART: Extensive coronary artery calcification. No significant pericardial effusion. MEDIASTINUM: Normal sized pretracheal lymph nodes with fatty aric. Small amount of fluid and particulate matter noted within the esophagus. No esophageal mural thickening or pneumomediastinum. THYROID: Unremarkable. No thyroid lesions. BONES/JOINTS: Accentuated thoracic kyphosis. No suspicious lytic or blastic abnormality. VASCULATURE: The thoracic aorta is mildly calcific and is normal in caliber. No thoracic aortic aneurysm or intimal calcification displacement. TUBES, LINES AND DEVICES: Percutaneous gastrostomy tube is in place extending into the stomach. Visualized liver, spleen, adrenal glands and renal upper poles are unremarkable. Pancreas is mildly atrophic. No pneumoperitoneum is seen. Air-fluid levels are present within the colon and could be due to ileus or diarrhea. CT/Chest without Contrast IMPRESSION: Airspace disease within both lungs, greatest within the right upper lobe, and could be due to aspiration pneumonitis and/or pneumonia. Small amount of fluid and particulate matter within the esophagus, consistent with gastroesophageal reflux. Percutaneous gastrostomy tube in place. Electronically Signed: Manish Logan MD at 5:12 EST ,
--- NOTE | 2022-10-29 03:37 | CT_ITS ---
EXAM: CT HEAD WITHOUT INTRAVENOUS CONTRAST CLINICAL INDICATION: head injury TECHNIQUE: Multiple axial images were obtained of the head without intravenous contrast. This CT exam was performed using one or more of the following dose reduction techniques: automated exposure control, adjustment of the mA and/or kV according to patient size, and/or use of iterative reconstruction technique. This report was created using [employer] report generation technology. RADIATION DOSE: Total DLP: 779.24 mGy-cm. COMPARISON: None. FINDINGS: BRAIN AND EXTRA-AXIAL SPACES: Mild cerebral and mild/moderate cerebellar atrophy are noted prominence of the ventricles, sulci and sylvian fissures. Mild patchy chronic small vessel ischemic changes are noted within the deep white matter tracts. Old lacunar infarction versus artifact within the left upper jose luis of the base of the cerebral peduncle. No intra- or extra-axial hemorrhage. No intracranial mass or mass effect. Basal cisterns are patent. BONES/JOINTS: No linear or depressed skull fracture. SOFT TISSUES: Soft tissue swelling overlies the right supraorbital rim. VASCULATURE: Vascular calcification is present. SINUSES: Mucosal thickening noted within the frontal, left ethmoid, left sphenoid and left maxillary sinuses with a left maxillary air-fluid level. Wall of the left maxillary antrum is slightly thickened and sclerotic. MASTOID AIR CELLS: Unremarkable. Clear. ORBITS: Previous optic surgery including cataract extraction. CT/Brain/Head without Contrast IMPRESSION: Soft tissue swelling overlying the right supraorbital rim. No skull fracture or acute intracranial hemorrhage. Atrophy with chronic small vessel ischemic changes. Findings of acute on chronic left maxillary sinusitis. Additional mucosal sinus disease noted within the frontal, left ethmoid and left sphenoid sinuses. Electronically Signed: Manish Logan MD at 4:47 EST ,
[2022-10-29 03:48] LABS: Absolute Lymphocyte Count 1.02 X10^3/uL (0.83-4.51); Absolute Neutrophil Count 16.1 X10^3/uL (2.0-7.7); Basophil# 0.09 X10^3/uL; Basophil% 0.5 % (0-1); Eosinophil# 0.25 X10^3/uL; Eosinophils% 1.4 % (0-5); Hematocrit 31.9 % (40-54); Hemoglobin 10.4 g/dL (13.0-16.5); Lymphocyte # 1.02 X10^3/ul (0.83-4.51); Lymphocyte % 5.5 % (19-41); Mean Corp Hgb Conc 32.6 g/dL (32-36); Mean Corpuscular Hgb 30.2 pg (27.0-32.0); Mean Corpuscular Volume 92.7 fL (80-94); Monocyte% 4.4 % (0-10); NRBC Flagged by Analyzer 0 % (0-5); Neutrophil # 16.13 X10^3/uL (2.7-7.7); Neutrophil % 87.7 % (47-70); Platelet Count 514 K/mm3 (150-450); RBC Distribution Width CV 12.4 % (11.6-14.6); RBC Distribution Width SD 42.1 fl (35.1-43.9); Red Blood Count 3.44 M/mm3 (4.6-6.2); White Blood Count 18.4 K/mm3 (4.4-11.0)
[2022-10-29 04:00] LABS: Anion Gap 7 (5-15); BUN 19 mg/dL (7-18); Calcium,Total 8.4 mg/dL (8.5-10.1); Chloride 93 mmol/L (98-107); Creatinine, Serum 3.83 mg/dL (0.70-1.30); EST Glomerular Filtration Rate 17 mL/min (>60); Est Glom Filt Rate - Afr Amer 21 mL/min (>60); Estimated Creatinine Clearance 19.66 ml/min; Glucose 148 mg/dL (74-106); Magnesium 1.9 mg/dL (1.6-2.6); Phosphorus 4.1 mg/dL (2.5-4.9); Potassium 4.1 mmol/L (3.5-5.1); Sodium Level 135 mmol/L (136-145)
[2022-10-29 04:03] LABS: International Normalized Ratio 1.1; Prothrombin Time (Protime)PT. 13.4 SECONDS (11.7-14.9)
[2022-10-29 04:04] LABS: Partial Thromboplast Time 31.5 Seconds (24.1-36.2)
[2022-10-29] MEDS: Ondansetron 4 MG/2 ML Vial IV (05:13)
[2022-10-29 05:21] VITALS: BP 118/59; PULSE 105; RESP 15; O2SAT 94
[2022-10-29 06:34] VITALS: O2SAT 94
--- NOTE | 2022-10-29 06:39 | EDS_ITS ---
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 residential states that patient had bouts of vomiting this evening and then fell out of bed and struck his head and after this they feel the bouts of of emesis worsened. They also report that he wears oxygen chronically but his pulse ox is been running low and secondary to these findings was sent in for evaluation. The patient cannot offer any further history based on his chronic medical conditions. [facility] Medical History (Updated 10/29/22 @ 08:[address] Pranay Castro, DO) Acute renal failure Acute respiratory failure with hypoxia Anemia CAD (coronary artery disease) CKD (chronic kidney disease) Congenital deafness Deaf Decreased left ventricular systolic function Diabetes HTN (hypertension) Hyperlipidemia Hypertensive emergency Metabolic acidosis Non-ST elevated myocardial infarction (non-STEMI) NSTEMI (non-ST elevated myocardial infarction) On mechanically assisted ventilation Pneumonia Regurgitation of food Stroke Vision problem Vomiting Home Medications dorzolamide-timolol (PF) 2 %-0.5 % eye drops in a dropperette 1 drp ophthalmic (eye) BID eyes 01/04/20 [History Last Taken 10/21/22] latanoprost 0.005 % eye drops 1 drp ophthalmic (eye) DAILY eyes 01/04/20 [History Last Taken 10/21/22] pen needle, diabetic 31 gauge x 5/16 (Comfort EZ Pen [place]) #1,200 ea 01/04/20 [History Last Taken Unknown] blood sugar diagnostic (Accu-Chek Guide test strips) #100 ea 03/07/20 [Rx Last Taken Unknown] amlodipine 5 mg tablet 5 mg feeding tube DAILY BP 09/14/22 [History Last Taken 10/21/22] atorvastatin 40 mg tablet 40 mg G-tube QHS #30 tabs 10/19/22 [Rx Last Taken 10/20/22] carvedilol 25 mg tablet 25 mg G-tube BID #0 tabs 10/19/22 [Rx Last Taken 10/20/22] hydralazine 50 mg tablet 50 mg G-tube TID #30 tabs 10/19/22 [Rx Last Taken 10/20/22] insulin glargine-yfgn 100 unit/mL (3 mL) subcutaneous pen 30 unit (0.3 mL) subcut 0600,1800 #0 mL 10/19/22 [Rx Last Taken 10/21/22] ondansetron 4 mg disintegrating tablet 4 mg PO Q6H PRN nausea and vomiting #30 tabs 10/19/22 [Rx Last Taken 10/21/22] aspirin 81 mg tablet,delayed release 81 mg feeding tube BREAKFAST 10/21/22 [History Last Taken 10/21/22] clopidogrel 75 mg tablet 75 mg feeding tube DAILY 10/21/22 [History Last Taken 10/21/22] furosemide 40 mg tablet 40 mg feeding tube SuTuThSa 10/21/22 [History Last Taken 10/20/22] insulin lispro 100 unit/mL subcutaneous pen (Humalog KwikPen (U-100) Insulin) See Protocol subcut Q6H DM 10/21/22 [History Last Taken 10/21/22] isosorbide dinitrate 10 mg tablet 10 mg feeding tube BID 10/21/22 [History Last Taken 10/21/22] lansoprazole 30 mg capsule,delayed release (Prevacid) 30 mg feeding tube BID #60 caps 10/27/22 [Rx Last Taken Unknown] menthol 0.44 %-zinc oxide 20.6 % topical ointment (Calmoseptine) 1 applic topical BID #0 grams 10/27/22 [Rx Last Taken Unknown] metoclopramide HCl 10 mg tablet (Reglan) 10 mg PO TID #90 tabs 10/27/22 [Rx Last Taken Unknown] polyethylene glycol 3350 17 gram oral powder packet 17 g PO BID PRN constipation #100 ea 10/27/22 [Rx Last Taken Unknown] clindamycin HCl 300 mg capsule (Cleocin HCl) 300 mg PO 4X/DAY 10 days #40 caps 10/29/22 [Rx Last Taken Unknown] levofloxacin 250 mg/10 mL oral solution 250 mg (10 mL) PO DAILY 10 days #100 mL 10/29/22 [Rx Last Taken Unknown] Allergy/AdvReac Type Severity Reaction Status Date / Time No Known Allergies Allergy Verified 09/15/22 10:39 Family History Mother Diabetes Deaf Social History Smoking Status: Never smoker alcohol intake: never substance use type: does not use what type of physical activity do you participate in: none ROS ROS ED Review of Systems ROS Unobtainable: other Details: Review of systems unable to be obtained as patient is deaf and mute EXAM Physical Exam Const Vital Signs: 10/29/22 03:26 10/29/22 05:21 10/29/22 06:34 Temperature 97.2 F L Temperature Source Temporal Pulse Rate 101 H 105 H Respiratory Rate 18 15 Respiratory Effort Non-Labored Respiratory Depth Normal Respiratory Pattern Normal Blood Pressure 117/71 118/59 L Blood Pressure Mean 86 78 Pulse Ox 92 94 94 Oxygen Delivery Method Room Air Nasal Cannula Nasal Cannula Oxygen Flow Rate (L/min) 4 4 10/29/22 07:11 Temperature 98.9 F Temperature Source Pulse Rate 101 H Respiratory Rate 16 Respiratory Effort Respiratory Depth Respiratory Pattern Blood Pressure 118/59 L Blood Pressure Mean Pulse Ox 94 Oxygen Delivery Method Oxygen Flow Rate (L/min) Positive well nourished and well developed General Appearance ED: well developed HEENT HEENT Narrative: No tongue or lip swelling noted. No secondary changes to suggest infection in the posterior pharynx Patient has a 1.5 cm linear dermal layer laceration along the lateral aspect of the right eyebrow. There was minimal ooze of blood present and no foreign body. There is a surrounding 2 x 3 cm hematoma consistent with history of fall. Otherwise no signs of depressed or basilar skull fracture No septal hematoma Eyes PERRL and EOMs intact bilaterally Eyes Narrative: No hyphema noted Neck supple Neck Narrative: No bony deformity or step-off of the cervical spine no midline pain with palpation Chest Wall palpation of chest normal Chest Narrative: No bony deformity or crepitance noted Resp normal respiratory effort Resp Narrative: Patient has rhonchi present in the right upper and lower lobe but there is no nasal flaring retractions tachypnea or accessory muscle use Cardio regular rate and regular rhythm GI non-tender, non-distended and no masses GI Narrative: PEG tube is in place without surrounding soft tissue changes at the insertion site to suggest infection. There is no pain or distention noted on exam and bowel sounds are hyperactive Auscultation: hyperactive bowel sounds Palpation: soft Back/Spine Back/Spine Narrative: No bony deformity or step-off of the thoracic or lumbar spine no midline pain on palpation. Extremity Extremity Narrative: This is stable there is no shortening or external rotation of either lower extremity Patient does have mild contractures of both arms and legs which is chronic in nature Neuro CN's II-XII intact bilaterally Neuro Narrative: Patient is at his baseline mental status per [facility] staff. There is no new focal neurologic deficit noted Psych mental status grossly normal Skin Skin Narrative: Patient has a laceration with hematoma to the forehead as documented above MDM MDM MDM Narrative Medical decision making narrative: Patient presented to the ER satting in the low 90s and in no acute distress. He did have head trauma and there is concern for underlying skull fracture or brain bleed based on the fact he has had increased vomiting since the trauma. Therefore CTs of the head and cervical spine were obtained. As the patient has had bouts of vomiting there is also concern for aspiration especially as he has rhonchi on exam and reported low pulse ox from the [facility]. Secondary to this a CT of the chest was added. CTs of the head and cervical spine revealed no acute traumatic injury such as skull fracture or brain bleed or cervical spine fracture. The chest did show changes consistent with aspiration pneumonia. Patient does have a white count of 18.4 but he is afebrile and normotensive in the ER going against systemic infection/septic changes. Patient's creatinine is elevated at 3.83 but he is known renal failure on dialysis and this is actually improved from previous values in the chart. The patient was given 1.5 g of Unasyn which is renal dosing secondary to the aspiration pneumonia. I did discuss the case with the medicine physician on- call Dr. Caro. He feels at this time as the patient is not showing changes for septicemia and he is not requiring a large volume of oxygen compared to his baseline and he is able be provided his medication and oxygen from the [facility] that admission is not advisable. Therefore after the patient received his Unasyn he was given prescriptions for clindamycin and Levaquin to cover for aspiration pneumonia as well as in order to increase his oxygen from 2 to 5 liters to keep his sats greater than 90%. Nursing was instructed that if patient's sats continue to drop despite the increased oxygen or he has physical exam findings concerning for respiratory distress or develops fever he needs to return to the hospital. However at this time as his physical exam is not suggesting septicemia and he is able to receive oxygen at the [facility] and is not requiring a higher level of noninvasive ventilation such as CPAP or BiPAP he will be discharged with outpatient follow-up The patient's forehead wound was cleaned with chlorhexidine. Manual pressure was then applied to bring the wound edges together good approximation. Dermabond was placed over top the wound to hold it together. Patient tolerated procedure well without complication Lab Data Attestation: I reviewed the patient's lab results. Labs: Laboratory Results - last 24 hr 10/29/22 10/29/22 10/29/22 03:35 03:35 03:35 WBC 18.4 H RBC 3.44 L Hgb 10.4 L Hct 31.9 L MCV 92.7 MCH 30.2 MCHC 32.6 RDW Std Deviation 42.1 RDW Coeff of Jenifer 12.4 Plt Count 514 H MPV 10.0 Immature Gran % (Auto) 0.500 Neut % (Auto) 87.7 H Lymph % (Auto) 5.5 L Hughes % (Auto) 4.4 Eos % (Auto) 1.4 Baso % (Auto) 0.5 Absolute Neuts (auto) 16.1 H Absolute Lymphs (auto) 1.02 Nucleated RBC % 0 PT 13.4 INR 1.1 APTT 31.5 Sodium 135 L Potassium 4.1 Chloride 93 L Carbon Dioxide 35.0 H Anion Gap 7 BUN 19 H Creatinine 3.83 H Estim Creat Clear Calc 19.66 Est GFR (MDRD) Af Amer 21 L Est GFR (MDRD) Non-Af 17 L BUN/Creatinine Ratio 5.0 L Glucose 148 H Calcium 8.4 L Phosphorus 4.1 Magnesium 1.9 Radiography Diagnostic Testing: Clinical Impression(s) from Imaging Studies Brain CT 10/29/22 03:37 IMPRESSION: Soft tissue swelling overlying the right supraorbital rim. No skull fracture or acute intracranial hemorrhage. Atrophy with chronic small vessel ischemic changes. Findings of acute on chronic left maxillary sinusitis. Additional mucosal sinus disease noted within the frontal, left ethmoid and left sphenoid sinuses. Electronically Signed: Manish Logan MD at 4:47 EST , Cervical Spine CT 10/29/22 03:37 IMPRESSION: Cervical degenerative changes. No acute fracture or subluxation. Asymmetric airspace disease in the right upper lobe, suspicious for pneumonia. Electronically Signed: Manish Logan MD at 4:58 EST , Chest CT 10/29/22 03:37 IMPRESSION: Airspace disease within both lungs, greatest within the right upper lobe, and could be due to aspiration pneumonitis and/or pneumonia. Small amount of fluid and particulate matter within the esophagus, consistent with gastroesophageal reflux. Percutaneous gastrostomy tube in place. Electronically Signed: Manish Logan MD at 5:12 EST , Pelvis X-Ray 10/29/22 03:37 IMPRESSION: No acute findings in the pelvis. No fracture identified. Electronically Signed: Agustin Bills MD at 4:38 EST Reading Location ID and State: [id number] / , Service support , 1 view pelvis x-ray as interpreted by the emergency medicine physician reveals no acute fracture or dislocation Discharge Plan Triage Chief Complaint: Fall ED Provider: Pranay Castro Dx/Rx/DC Orders Clinical Impression: Aspiration pneumonia, Type 1 diabetes, ESRD on dialysis, Closed head injury, Forehead laceration Instructions: ED Pneumonia (Adult) Prescriptions: New clindamycin HCl [Cleocin HCl] 300 mg capsule 300 mg PO 4X/DAY 10 Days Qty: 40 0RF levofloxacin 250 mg/10 mL solution 250 mg PO DAILY 10 Days Qty: 100 0RF Rx Instructions: 10 mL by PEG tube every other day for 10 doses No Action (DME) pen needle, diabetic [Comfort EZ Pen [place]] 31 gauge x 5/16 needle See Rx Instructions .ROUTE .MEDSUPPLY Qty: 1,200 Rx Instructions: use to inject insulin 4 x qd latanoprost 0.005 % drops 1 drp OPHTHALMIC DAILY dorzolamide-timolol (PF) 2-0.5 % dropperette 1 drp OPHTHALMIC BID (DME) blood sugar diagnostic [Accu-Chek Guide test strips] Strip See Rx Instructions .ROUTE .MEDSUPPLY Qty: 100 8RF Rx Instructions: test 3 times daily amlodipine 5 mg tablet 5 mg feeding tube DAILY atorvastatin 40 mg Tablet 40 mg G-tube QHS Qty: 30 0RF carvedilol 25 mg Tablet 25 mg G-tube BID Qty: 0 0RF hydralazine 50 mg Tablet 50 mg G-tube TID Qty: 30 0RF insulin glargine-yfgn 100 unit/mL (3 mL) Insulin Pen 30 unit subcut 0600,1800 Qty: 0 0RF ondansetron 4 mg tablet,disintegrating 4 mg PO Q6H PRN (Reason: nausea and vomiting) Qty: 30 0RF furosemide 40 mg tablet 40 mg feeding tube SuTuThSa isosorbide dinitrate 10 mg tablet 10 mg feeding tube BID clopidogrel 75 mg tablet 75 mg feeding tube DAILY aspirin 81 mg tablet,delayed release (DR/EC) 81 mg feeding tube BREAKFAST insulin lispro [Humalog KwikPen Insulin] 100 unit/mL insulin pen See Protocol subcut Q6H Protocol: 4. Sliding Scale Insulin High-Med Dosing Condition: 150-199 mg/dl = 2 units Condition: 200-259 mg/dl = 4 units Condition: 260-324 mg/dl = 6 units Condition: 325-374 mg/dl = 8 units Condition: 375-409 mg/dl = 10 units Condition: 410-449 mg/dl = 11 units Condition: Greater than 449 call physician Protocol Text: - Use for Total Daily Dose of Insulin 56-80 units - Patient who are insulin resistant or septic HIGH MEDIUM DOSING ALGORITHM menthol-zinc oxide [Calmoseptine] 0.44-20.6 % Ointment 1 applic topical BID Qty: 0 0RF Protocol: *Topical Application Instructions APPLICATION INSTRUCTIONS: Apply to coccyx metoclopramide HCl [Reglan] 10 mg tablet 10 mg PO TID Qty: 90 0RF lansoprazole [Prevacid] 30 mg capsule,delayed release(DR/EC) 30 mg feeding tube BID Qty: 60 0RF polyethylene glycol 3350 17 gram Powder In Packet 17 g PO BID PRN (Reason: constipation) Qty: 100 0RF Primary Care Provider: Marta Brooks Referrals: Marta Brooks, [facility] [Primary Care Provider] - Activity Restrictions/Additional Instructions: Your CT scan shows that your bouts of emesis today led to aspiration pneumonia. However at this time your pulse ox is holding stable on 4 L of oxygen and there are no signs of systemic infection. Take the antibiotics as directed but if symptoms are worsening return to the ER for repeat evaluation. Disposition Disposition: Home, Self Care
--- NOTE | 2022-10-29 06:57 | NURSING ---
CALLED [facility], ETA IS 20 MIN
[2022-10-29 07:11] VITALS: BP 118/59; PULSE 101; RESP 16; TEMP 37.2; O2SAT 94
--- NOTE | 2022-10-29 07:13 | ED.RN ---
REPORT CALLED TO [facility] [address]
== END 2022-10-29 08:10 | disposition home or self-care (01) ==
PROVIDERS: Emergency Provider Emergency Medicine; PCP Nurse Practitioner Family; Visit Provider Emergency Medicine
DX: J69.0 Pneumonitis due to inhalation of food and vomit (principal); Z99.2 Dependence on renal dialysis; E10.22 Type 1 diabetes mellitus with diabetic chronic kidney disease; N18.6 End stage renal disease; S01.81XA Laceration without foreign body of other part of head, initial encounter; I25.10 Atherosclerotic heart disease of native coronary artery without angina pectoris; I25.2 Old myocardial infarction; Z86.73 Personal history of transient ischemic attack (TIA), and cerebral infarction without residual deficits; W06.XXXA Fall from bed, initial encounter
CPT/HCPCS: 96365; 96375; 99285; 96366; 36415; 70450; 71250; 72125; 72170; 80048; 83735; 84100; 85025; 85610; 85730; 87040; J7050; A4216; J2405; J3490

== ENCOUNTER 2022-10-30 20:38 | Inpatient (IN) | payer MEDICARE, SELFPAY ==
[2022-10-30 20:39] VITALS: BP 156/82; PULSE 97; RESP 20; TEMP 36.7; O2SAT 87; BMI 25.0
[2022-10-30 20:44] VITALS: O2SAT 91
--- NOTE | 2022-10-30 20:54 | EKG12_ITS ---
Test Reason : VOMITING Blood Pressure : / mmHG Vent. Rate : 095 BPM Atrial Rate : 095 BPM P-R Int : 138 ms QRS Dur : 082 ms QT Int : 362 ms P-R-T Axes : 073 070 233 degrees QTc Int : 454 ms Normal sinus rhythm ST & T wave abnormality, consider inferior ischemia ST & T wave abnormality, consider anterolateral ischemia Abnormal ECG Confirmed by MYRA CROWE MD ([id number]), slot editor EMMANUEL NEWMAN ([id number]) on 11/02/2022 10:25:29 AM Referred By: TEJ Confirmed By:MYRA CROWE MD
--- NOTE | 2022-10-30 21:04 | EDS_ITS ---
HPI History of Present Illness Chief Complaint: Nausea/Vomiting Narrative Narrative: Patient has a history of congenital blindness and deafness, recently discharged from the hospital with hypoglycemia, acute non-STEMI, ischemic cardiomyopathy and acute kidney injury.? Patient had had cardiac cath done which showed a multivessel disease and medical management was recommended.? He was started on dialysis for his acute kidney injury and transition to Wednesday?Wednesday?Wednesday dialysis via tunneled dialysis catheter.? He was then discharged and returned back to the hospital with hematemesis which was found to be an oozing gastric ulcer and was treated with a heater probe by GI. It seems like his Plavix and aspirin were held however looking at the [facility] paperwork the patient is still receiving those medications. He was also found to have kidney failure and was placed on dialysis. Apparently he also pulled out his PEG tube today or yesterday or the day before the usp is not sure. He is also been vomiting for 3 days and the nurses at the [facility] stated he also had hematemesis in the way of coffee-ground emesis. [facility] Medical History Acute renal failure Acute respiratory failure with hypoxia Anemia CAD (coronary artery disease) CKD (chronic kidney disease) Congenital deafness Deaf Decreased left ventricular systolic function Diabetes HTN (hypertension) Hyperlipidemia Hypertensive emergency Metabolic acidosis Non-ST elevated myocardial infarction (non-STEMI) NSTEMI (non-ST elevated myocardial infarction) On mechanically assisted ventilation Pneumonia Regurgitation of food Stroke Vision problem Vomiting Home Medications dorzolamide-timolol (PF) 2 %-0.5 % eye drops in a dropperette 1 drp ophthalmic (eye) BID eyes 01/04/20 [History Last Taken 10/21/22] latanoprost 0.005 % eye drops 1 drp ophthalmic (eye) DAILY eyes 01/04/20 [History Last Taken 10/21/22] pen needle, diabetic 31 gauge x 5/16 (Comfort EZ Pen [place]) #1,200 ea 01/04/20 [History Last Taken Unknown] blood sugar diagnostic (Accu-Chek Guide test strips) #100 ea 03/07/20 [Rx Last Taken Unknown] amlodipine 5 mg tablet 5 mg feeding tube DAILY BP 09/14/22 [History Last Taken 10/21/22] atorvastatin 40 mg tablet 40 mg G-tube QHS #30 tabs 10/19/22 [Rx Last Taken 10/20/22] carvedilol 25 mg tablet 25 mg G-tube BID #0 tabs 10/19/22 [Rx Last Taken 10/20/22] hydralazine 50 mg tablet 50 mg G-tube TID #30 tabs 10/19/22 [Rx Last Taken 10/20/22] insulin glargine-yfgn 100 unit/mL (3 mL) subcutaneous pen 30 unit (0.3 mL) subcut 0600,1800 #0 mL 10/19/22 [Rx Last Taken 10/21/22] ondansetron 4 mg disintegrating tablet 4 mg PO Q6H PRN nausea and vomiting #30 tabs 10/19/22 [Rx Last Taken 10/21/22] aspirin 81 mg tablet,delayed release 81 mg feeding tube BREAKFAST 10/21/22 [History Last Taken 10/21/22] clopidogrel 75 mg tablet 75 mg feeding tube DAILY 10/21/22 [History Last Taken 10/21/22] furosemide 40 mg tablet 40 mg feeding tube SuTuThSa 10/21/22 [History Last Taken 10/20/22] insulin lispro 100 unit/mL subcutaneous pen (Humalog KwikPen (U-100) Insulin) See Protocol subcut Q6H DM 10/21/22 [History Last Taken 10/21/22] isosorbide dinitrate 10 mg tablet 10 mg feeding tube BID 10/21/22 [History Last Taken 10/21/22] lansoprazole 30 mg capsule,delayed release (Prevacid) 30 mg feeding tube BID #60 caps 10/27/22 [Rx Last Taken Unknown] menthol 0.44 %-zinc oxide 20.6 % topical ointment (Calmoseptine) 1 applic topical BID #0 grams 10/27/22 [Rx Last Taken Unknown] metoclopramide HCl 10 mg tablet (Reglan) 10 mg PO TID #90 tabs 10/27/22 [Rx Last Taken Unknown] polyethylene glycol 3350 17 gram oral powder packet 17 g PO BID PRN constipation #100 ea 10/27/22 [Rx Last Taken Unknown] clindamycin HCl 300 mg capsule (Cleocin HCl) 300 mg PO 4X/DAY 10 days #40 caps 10/29/22 [Rx Last Taken Unknown] levofloxacin 250 mg/10 mL oral solution 250 mg (10 mL) PO DAILY 10 days #100 mL 10/29/22 [Rx Last Taken Unknown] Allergy/AdvReac Type Severity Reaction Status Date / Time No Known Allergies Allergy Verified 09/15/22 10:39 Family History Mother Diabetes Deaf Social History Smoking Status: Never smoker alcohol intake: never substance use type: does not use what type of physical activity do you participate in: none ROS ROS ED ROS Narrative Patient is deaf and blind does not read and does not write and does not currently communicate with signals. We attempted to have him at least look at the screens to see if we can get the correctional probation officer for sign language however he can even see the screen when I evaluate him. Review of Systems ROS Unobtainable: due to mental status and other EXAM Physical Exam Narrative Exam Narrative: Physical exam General: Patient appears chronically ill, he is actively gagging but not vomiting. Head: Normocephalic, Atraumatic Eyes: Conjunctiva not pale, he does not track or seems to see me. ENT: Somewhat dry Neck: Supple, Nontender, No lymphadenopathy Cardiovascular: Regular rate. Chest wall: Left chest wall dialysis catheter Respiratory: Coarse bilateral breath sounds. Abdomen: Soft, PEG tube site reveals clean dry and intact site. He does not seem to withdraw when I palpate throughout his abdomen. Back: Nontender, Normal Inspection. Extremities: Atrophy but no edema or erythema. Skin: Normal color, No rash Const Vital Signs: 10/30/22 20:39 10/30/22 20:44 Temperature 98.0 F Temperature Source Temporal Pulse Rate 97 Respiratory Rate 20 H Blood Pressure 156/82 H Blood Pressure Mean 106 Pulse Ox 87 91 Oxygen Delivery Method Nasal Cannula Nasal Cannula Oxygen Flow Rate (L/min) 2 4 MDM MDM MDM Narrative Medical decision making narrative: A. Problems addressed patient is deaf and blind which makes communication quite difficult almost impossible. He has coffee-ground emesis, I wonder if it is because he got placed back on Plavix and aspirin and he had significant vomiting , also his PEG tube had fallen out. I did attempt to replace this but I was unsuccessful see procedure note. His hemoglobin dropped by 1 g from yesterday. His blood pressure is normal in the ED although I do believe with a gastric ulcer in a patient with is anticoagulated could lead to quite rapid decompensation which is why he will need admission. Was also told by the nurse that the patient now has coarse breath sounds. He does have aspiration pneumonia as shown on CT but he is not desaturating I will treat him for this also and I will repeat the x-ray. B. Amount and/or complexity of the data 1. I reviewed prior inpatient notes from his prior hospitalization I reviewed the [facility] paperwork including medication list and prior medical problems. CBC CMP lipase were ordered interpreted by me 2. Independent interpretation of test Telemetry: He is sinus rhythm with a rate in the 90s on the monitor in the room 3. Discussion of management with gastroenterology, Dr. Deleon as well as admitting doctor C. Risk of complications and/or morbidity See above Lab Data Labs: Laboratory Results - last 24 hr 10/30/22 10/30/22 20:22 20:22 WBC 17.7 H RBC 2.98 L Hgb 9.1 L Hct 28.3 L MCV 95.0 H MCH 30.5 MCHC 32.2 RDW Std Deviation 42.5 RDW Coeff of Jenifer 12.3 Plt Count 487 H MPV 10.1 Immature Gran % (Auto) 0.500 Neut % (Auto) 79.3 H Lymph % (Auto) 10.7 L Randolph % (Auto) 8.4 Eos % (Auto) 0.6 Baso % (Auto) 0.5 Absolute Neuts (auto) 14.0 H Absolute Lymphs (auto) 1.89 Nucleated RBC % 0 Sodium 136 Potassium 3.5 Chloride 94 L Carbon Dioxide 34.0 H Anion Gap 8 BUN 25 H Creatinine 4.26 H Estim Creat Clear Calc 17.67 Est GFR (MDRD) Af Amer 19 L Est GFR (MDRD) Non-Af 15 L BUN/Creatinine Ratio 5.9 L Glucose 145 H Calcium 8.7 Total Bilirubin 0.30 AST 20 ALT 24 Alkaline Phosphatase 97 Total Protein 8.2 Albumin 1.8 L Globulin 6.4 H Albumin/Globulin Ratio 0.3 L Lipase 158 Radiography Diagnostic Testing: Clinical Impression(s) from Imaging Studies KUB X-Ray 10/30/22 21:25 IMPRESSION: 1. Accumulation of contrast surrounding the stomach consistent with extravasation. Negligible contrast noted within the lumen. 2. PEG tube projects in the upper abdomen. Electronically Signed: Antonio Alan MD at 21:59 EST , ADDENDUM: 10/30/221 IMPRESSION: 1. Accumulation of contrast surrounding the stomach consistent with extravasation. Negligible contrast noted within the lumen. 2. PEG tube projects in the upper abdomen. N.B. : The above Results were Read Back by Antonio Alan MD to Brnadyn Woods MD, and understanding confirmed on 10/30/2022 22:04:11 (ET). Electronically Signed: Antonio Alan MD at 21:59 EST , Chest X-Ray 10/30/22 22:14 IMPRESSION: 1. Dialysis catheter without change. 2. No evidence congestive failure. 3. Subtle area of interstitial infiltrate throughout the RIGHT mid and upper lung. No consolidation, no effusion. Electronically Signed: Antonio Alan MD at 22:33 EST , KUB interpreted by me and radiologist is extravasation of Gastrografin in the peritoneum Chest x-ray interpreted by me shows slight right-sided infiltrate. Procedures Other Procedures Procedure(s): PEG tube replacement Used a 20 Scottish PEG tube, lubricant I cleaned the site and inserted the PEG tube. A KUB with Gastrografin was used for confirmation however was shown that the Gastrografin is within the peritoneum and not the stomach. I immediately pulled the G-tube out. No further attempts were made. Discharge Plan Dx/Rx/DC Orders Clinical Impression: GI bleed, Aspiration pneumonia, Leukocytosis, PEG tube malfunction Disposition Disposition: [facility]
[2022-10-30] MEDS: 0.9% Normal Saline 1,000 ML 1000 ML IV (21:20)
[2022-10-30] MEDS: Ondansetron 4 MG/2 ML Vial IV (21:20)
--- NOTE | 2022-10-30 21:25 | RAD_ITS ---
We are attempting to reach an attending provider to discuss findings. An addendum with communication details will be sent when the communication is complete. INDICATION: PEG tube- with gastrografin EXAMINATION/TECHNIQUE: Oral contrast was administered via the peg tube. COMPARISON: 10/22/2022 FINDINGS: Feeding tube projects in the LEFT upper quadrant. There is a significant amount contrast however noted projecting in the peritoneal space around the stomach including accumulation within the lesser sac. No significant intraluminal contrast noted. RAD/Abdomen Single View (Portable) IMPRESSION: 1. Accumulation of contrast surrounding the stomach consistent with extravasation. Negligible contrast noted within the lumen. 2. PEG tube projects in the upper abdomen. Electronically Signed: Antonio Alan MD at 21:59 EST ,
[2022-10-30 21:32] LABS: Absolute Lymphocyte Count 1.89 X10^3/uL (0.83-4.51); Basophil# 0.09 X10^3/uL; Basophil% 0.5 % (0-1); Eosinophil# 0.11 X10^3/uL; Eosinophils% 0.6 % (0-5); Hematocrit 28.3 % (40-54); Hemoglobin 9.1 g/dL (13.0-16.5); Lymphocyte # 1.89 X10^3/ul (0.83-4.51); Lymphocyte % 10.7 % (19-41); Mean Corp Hgb Conc 32.2 g/dL (32-36); Mean Corpuscular Hgb 30.5 pg (27.0-32.0); Mean Platelet Vol. 10.1 fl (6.2-12.0); Monocyte# 1.48 X10^3/uL; Monocyte% 8.4 % (0-10); NRBC Flagged by Analyzer 0 % (0-5); Neutrophil # 14.01 X10^3/uL (2.7-7.7); Neutrophil % 79.3 % (47-70); Platelet Count 487 K/mm3 (150-450); RBC Distribution Width CV 12.3 % (11.6-14.6); RBC Distribution Width SD 42.5 fl (35.1-43.9); Red Blood Count 2.98 M/mm3 (4.6-6.2); White Blood Count 17.7 K/mm3 (4.4-11.0)
[2022-10-30 22:02] LABS: ALB/GLOB Ratio 0.3 RATIO (0.9-2.4); AST(SGOT) 20 U/L (15-37); Alanine Aminotransfer ALT/SGPT 24 U/L (16-61); Albumin, Serum 1.8 g/dL (3.2-5.0); Alkaline Phosphatase 97 U/L (45-117); Anion Gap 8 (5-15); BUN 25 mg/dL (7-18); BUN/Creat Ratio 5.9 RATIO (10-20); Calcium,Total 8.7 mg/dL (8.5-10.1); Chloride 94 mmol/L (98-107); Creatinine, Serum 4.26 mg/dL (0.70-1.30); EST Glomerular Filtration Rate 15 mL/min (>60); Est Glom Filt Rate - Afr Amer 19 mL/min (>60); Estimated Creatinine Clearance 17.67 ml/min; Globulin 6.4 g/dL (2.2-4.2); Glucose 145 mg/dL (74-106); Lipase 158 U/L (73-393); Potassium 3.5 mmol/L (3.5-5.1); Protein, Total 8.2 g/dL (6.4-8.2); Sodium Level 136 mmol/L (136-145)
--- NOTE | 2022-10-30 22:14 | RAD_ITS ---
INDICATION: sob EXAMINATION/TECHNIQUE: X-RAY - XR Chest 1 View COMPARISON: Chest CT of earlier same date. FINDINGS: LIFE-SUPPORT AND LINES: 1. Dialysis catheter projects along course the SVC. 2. No pneumothorax. HEART AND VESSELS: The cardiac silhouette, pulmonary vasculature have normal appearance. No evidence of congestive failure. LUNGS AND PLEURAL SPACES: Subtle area of interstitial prominence in the RIGHT mid and upper lung, no consolidation. No pulmonary mass is noted. MEDIASTINUM AND HILAR REGIONS: No masses adenopathy noted. No areas of calcification. Visualized upper airway is normal in position. BONY ELEMENTS: No acute bony changes noted. RAD/Chest 1 View (Portable) IMPRESSION: 1. Dialysis catheter without change. 2. No evidence congestive failure. 3. Subtle area of interstitial infiltrate throughout the RIGHT mid and upper lung. No consolidation, no effusion. Electronically Signed: Antonio Alan MD at 22:33 EST ,
--- NOTE | 2022-10-30 22:45 | HP.PCM.HOS_ITS ---
HPI - General General Date of Admission: 10/30/22 Date of Service: 10/30/22 Chief Complaint: Removed PEG tube and hematemesis HPI Narrative SCOTT BUTLER, is a 57 M with a significant history of congenital blindness and deafness; end-stage renal dialysis on dialysis Wednesdays and Fridays; hyperlipidemia hypertension and diabetes mellitus; and who lives at a custodial presenting to the emergency department because his PEG tube had been removed for unknown period of time. Also reportedly patient fell from his wheelchair at the custodial. Of note patient was noticed to have multiple episodes of vomiting. At the emergency department patient was found to have coffee-ground emesis. Also, a day before his presentation patient was treated at emergency department for aspiration pneumonia and discharged back to custodial. Patient was also hospitalized at our hospital ([facility]) from 10/21/2022 to 10/27/2022 for oozing gastric ulcer that was cauterized by heater probe. History was obtained from emergency department and patient's nurse at the ED since patient's is blind and deaf and cannot provide history. Per emergency department doctor patient could not look at screen to see if a log scaler could be of help [facility] Medical History Acute renal failure Acute respiratory failure with hypoxia Anemia CAD (coronary artery disease) CKD (chronic kidney disease) Congenital deafness Deaf Decreased left ventricular systolic function Diabetes HTN (hypertension) Hyperlipidemia Hypertensive emergency Metabolic acidosis Non-ST elevated myocardial infarction (non-STEMI) NSTEMI (non-ST elevated myocardial infarction) On mechanically assisted ventilation Pneumonia Regurgitation of food Stroke Vision problem Vomiting Home Medications dorzolamide-timolol (PF) 2 %-0.5 % eye drops in a dropperette 1 drp ophthalmic (eye) BID eyes 01/04/20 [History Last Taken 10/21/22] latanoprost 0.005 % eye drops 1 drp ophthalmic (eye) DAILY eyes 01/04/20 [History Last Taken 10/21/22] pen needle, diabetic 31 gauge x 5/16 (Comfort EZ Pen [place]) #1,200 ea 01/04/20 [History Last Taken Unknown] blood sugar diagnostic (Accu-Chek Guide test strips) #100 ea 03/07/20 [Rx Last Taken Unknown] amlodipine 5 mg tablet 5 mg feeding tube DAILY BP 09/14/22 [History Last Taken 10/21/22] atorvastatin 40 mg tablet 40 mg G-tube QHS #30 tabs 10/19/22 [Rx Last Taken 10/20/22] carvedilol 25 mg tablet 25 mg G-tube BID #0 tabs 10/19/22 [Rx Last Taken 10/20/22] hydralazine 50 mg tablet 50 mg G-tube TID #30 tabs 10/19/22 [Rx Last Taken 10/20/22] insulin glargine-yfgn 100 unit/mL (3 mL) subcutaneous pen 30 unit (0.3 mL) subcut 0600,1800 #0 mL 10/19/22 [Rx Last Taken 10/21/22] ondansetron 4 mg disintegrating tablet 4 mg PO Q6H PRN nausea and vomiting #30 tabs 10/19/22 [Rx Last Taken 10/21/22] aspirin 81 mg tablet,delayed release 81 mg feeding tube BREAKFAST 10/21/22 [History Last Taken 10/21/22] clopidogrel 75 mg tablet 75 mg feeding tube DAILY 10/21/22 [History Last Taken 10/21/22] furosemide 40 mg tablet 40 mg feeding tube SuTuThSa 10/21/22 [History Last Taken 10/20/22] insulin lispro 100 unit/mL subcutaneous pen (Humalog KwikPen (U-100) Insulin) See Protocol subcut Q6H DM 10/21/22 [History Last Taken 10/21/22] isosorbide dinitrate 10 mg tablet 10 mg feeding tube BID 10/21/22 [History Last Taken 10/21/22] lansoprazole 30 mg capsule,delayed release (Prevacid) 30 mg feeding tube BID #60 caps 10/27/22 [Rx Last Taken Unknown] menthol 0.44 %-zinc oxide 20.6 % topical ointment (Calmoseptine) 1 applic topical BID #0 grams 10/27/22 [Rx Last Taken Unknown] metoclopramide HCl 10 mg tablet (Reglan) 10 mg PO TID #90 tabs 10/27/22 [Rx Last Taken Unknown] polyethylene glycol 3350 17 gram oral powder packet 17 g PO BID PRN constipation #100 ea 10/27/22 [Rx Last Taken Unknown] clindamycin HCl 300 mg capsule (Cleocin HCl) 300 mg PO 4X/DAY 10 days #40 caps 10/29/22 [Rx Last Taken Unknown] levofloxacin 250 mg/10 mL oral solution 250 mg (10 mL) PO DAILY 10 days #100 mL 10/29/22 [Rx Last Taken Unknown] Allergy/AdvReac Type Severity Reaction Status Date / Time No Known Allergies Allergy Verified 09/15/22 10:39 Family History Mother Diabetes Deaf Surgical History S/P percutaneous endoscopic gastrostomy (PEG) tube placement Social History Smoking Status: Never smoker alcohol intake: never substance use type: does not use what type of physical activity do you participate in: none ROS Review of Systems ROS Unobtainable: other Details: Review of systems limited by patient being deaf and blind. Vital Signs Vital Signs Vital Signs: 10/30/22 20:39 10/30/22 20:44 Temperature 98.0 F Temperature Source Temporal Pulse Rate 97 Respiratory Rate 20 H Blood Pressure 156/82 H Blood Pressure Mean 106 Pulse Ox 87 91 Oxygen Delivery Method Nasal Cannula Nasal Cannula Oxygen Flow Rate (L/min) 2 4 Weight Weight: 72.575 kg Body Mass Index (BMI) 25.0 Physical Exam Narrative Physical exam: General: Well-nourished, well-developed. Head: Normocephalic, atraumatic, no tenderness Eyes:Could see waved hand. ENT, no trauma, moist mucous membranes, no rhinorrhea Neck: Nontender, No thyromegaly. CVS: Regular rate and rhythm. S1-S2 present. No murmur, gallop or rub. Respiratory : clear to auscultation bilaterally, chest wall nontender, no wheezing Abdomen: open incision at epigastric area (from previous peg tube) Soft, nontender, nondistended, normal bowel sounds, no masses : Lopez catheter Back: Nontender, no CVA tenderness, no midline spinal tenderness, deformities, step-offs Extremities: Nontender full range of motion, no trauma Skin: Normal color, no trauma, abrasions Neuro: Alert, Deaf and blind (could see waved hand) Psychiatry: Normal mood. Normal affect. Not depressed. Not anxious. Results Lab / Micro Data Result Diagrams: 10/30/22 20:22 10/30/22 20:22 Labs: Laboratory Results - last 24 hr 10/30/22 20:22: WBC 17.7 H, RBC 2.98 L, Hgb 9.1 L, Hct 28.3 L, MCV 95.0 H, MCH 30.5, MCHC 32.2, RDW Std Deviation 42.5, RDW Coeff of Jenifer 12.3, Plt Count 487 H, MPV 10.1, Immature Gran % (Auto) 0.500, Neut % (Auto) 79.3 H, Lymph % (Auto) 10.7 L, Yancey % (Auto) 8.4, Eos % (Auto) 0.6, Baso % (Auto) 0.5, Absolute Neuts (auto) 14.0 H, Absolute Lymphs (auto) 1.89, Nucleated RBC % 0 10/30/22 20:22: Sodium 136, Potassium 3.5, Chloride 94 L, Carbon Dioxide 34.0 H, Anion Gap 8, BUN 25 H, Creatinine 4.26 H, Estim Creat Clear Calc 17.67, Est GFR (MDRD) Af Amer 19 L, Est GFR (MDRD) Non-Af 15 L, BUN/Creatinine Ratio 5.9 L, Glucose 145 H, Calcium 8.7, Total Bilirubin 0.30, AST 20, ALT 24, Alkaline Phosphatase 97, Total Protein 8.2, Albumin 1.8 L, Globulin 6.4 H, Albumin/Globulin Ratio 0.3 L, Lipase 158 Radiology Impression KUB X-Ray 10/30/22 21:25 IMPRESSION: 1. Accumulation of contrast surrounding the stomach consistent with extravasation. Negligible contrast noted within the lumen. 2. PEG tube projects in the upper abdomen. Electronically Signed: Scott Alan MD at 21:59 EST , ADDENDUM: 10/30/228 IMPRESSION: 1. Accumulation of contrast surrounding the stomach consistent with extravasation. Negligible contrast noted within the lumen. 2. PEG tube projects in the upper abdomen. N.B. : The above Results were Read Back by Scott Alan MD to Brandyn Woods MD, and understanding confirmed on 10/30/2022 22:04:11 (ET). Electronically Signed: Scott Alan MD at 21:59 EST , Chest X-Ray 10/30/22 22:14 IMPRESSION: 1. Dialysis catheter without change. 2. No evidence congestive failure. 3. Subtle area of interstitial infiltrate throughout the RIGHT mid and upper lung. No consolidation, no effusion. Electronically Signed: Scott Alan MD at 22:33 EST , Assessment & Plan Assessment/Plan (1) ABLA (acute blood loss anemia): (2) PEG tube malfunction: (3) Aspiration pneumonia: PLAN: Plan ABLA His hemoglobin on presentation was 9.1. His hemoglobin mid day before presentation (10/29/2022 was 10.4). Admit to monitored bed on medsu. NPO. Gentle IV hydration (patient is dialysis patient) Trend CBC and H&H Hold antiplatelets No anticoagulants for DVT prophylaxis Protonix IV ordered GI consult Removed PEG tube His PEG tube was found removed at custodial. Emergency department on presentation try to put it back. However, that was unsuccessful. GI consult. Aspiration Pneumonia Impression of CXR by radiology: 1.? Dialysis catheter without change. 2.? No evidence congestive failure. 3.? Subtle area of interstitial infiltrate throughout the RIGHT mid and upper lung.? No consolidation, no effusion. CXR was visualized and independently interpreted and I agree with radiology interpretation CBC showed white count of 17,700. Trend CBC Unasyn ordered. Diabetes Mild hyperglycemia on presentation Accu-check with correction scale insulin ordered. ESRD on dialysis (M,W,F) On presentation sodium and potassium was normal Nephrology consult HTN Stable. Continue home meds. DVT Prophylaxis: SCD ordered Charges/Coding Visit Charges Inpatient E&M: 05620 Init Hosp L3
[2022-10-30 23:23] VITALS: BP 115/52; PULSE 84; RESP 18; TEMP 36.4; O2SAT 100
--- NOTE | 2022-10-30 23:25 | ED.RN ---
Dr. Woods attempted to replace PEG tube with 20F. Pt tolerated well, confirmed with X-Ray, in wrong spot. PEG tube removed.
[2022-10-31] VITALS (9 sets, daily range): BP systolic 132–158; BP diastolic 69–73; PULSE 76–90; RESP 15–19; TEMP 36.4–36.8; O2SAT 95–99; BMI 21.7
--- NOTE | 2022-10-31 00:15 | NURSING ---
Patient unable to answer admission questions at the time of admission, SNF paperwork received
[2022-10-31] MEDS: 0.9% Normal Saline 1,000 ML 40 ML IV (00:45)
[2022-10-31 01:30] LABS: Bedside Glucose 142 mg/dL (74-106)
[2022-10-31 07:00] LABS: Absolute Lymphocyte Count 1.27 X10^3/uL (0.83-4.51); Absolute Neutrophil Count 12.7 X10^3/uL (2.0-7.7); Basophil# 0.08 X10^3/uL; Basophil% 0.5 % (0-1); Eosinophil# 0.25 X10^3/uL; Eosinophils% 1.6 % (0-5); Hematocrit 25.4 % (40-54); Hemoglobin 7.9 g/dL (13.0-16.5); Lymphocyte # 1.27 X10^3/ul (0.83-4.51); Lymphocyte % 8.1 % (19-41); Mean Corp Hgb Conc 31.1 g/dL (32-36); Mean Corpuscular Volume 96.6 fL (80-94); Monocyte# 1.31 X10^3/uL; Monocyte% 8.3 % (0-10); NRBC Flagged by Analyzer 0 % (0-5); Neutrophil # 12.72 X10^3/uL (2.7-7.7); Platelet Count 392 K/mm3 (150-450); RBC Distribution Width CV 12.6 % (11.6-14.6); Red Blood Count 2.63 M/mm3 (4.6-6.2); White Blood Count 15.7 K/mm3 (4.4-11.0)
--- NOTE | 2022-10-31 10:24 | CASEMGMT ---
Addendum entered by Malena Pimentel 10/31/22 10:35: Social Work SW did offer the long term list to pt's nephew, he declined it for now. HUSSEIN will continue to follow. ROSENDO Hays Original Note: Social Work Pt is here from [place]. SW spoke w/step son Ben, who confirms plan is for pt to return to [facility]. He states he was told that they need to pay $250 per day to hold the bed however and they cannot afford this. SW does have a list from [facility] of fci facilities should it be needed, to give to family. SW sent updates to [facility], inquired about getting a new precert and if the family has the accurate information about paying to hold the bed. HUSSEIN will continue to follow, pt will be here through the weekend as per physician. ROSENDO Hays
--- NOTE | 2022-10-31 10:49 | PCM.CONS.R ---
Assessment & Plan Assessment/Plan (1) TREVOR (acute kidney injury): (2) CKD (chronic kidney disease): (3) HTN (hypertension): (4) Decreased left ventricular systolic function: (5) Macrocytic anemia: PLAN: Plan Impression/Plan: The patient is a 57-year-old man with past history of type 1 diabetes mellitus, hypertension, CAD, congenital deafness, prior stroke, and chronic kidney disease who was recently admitted to this hospital between 09/16/2022 until 10/19/2022 for DKA, hypertensive emergency, NSTEMI, acute hypoxic respiratory failure requiring temporary mechanical ventilator, and acute kidney injury on chronic kidney disease.? The patient has had a progressive loss of renal function and was started on dialysis on 09/22/2022.? The patient was readmitted to the hospital between 10/21/2022 until 10/27/2022 with upper GI bleed. He returns again to the hospital on 10/30/2022 with dislodgment of his PEG tube.? Nephrology is following for dialysis dependent TREVOR on CKD. Acute kidney injury on chronic kidney disease, unspecified stage. The patient was started on dialysis on 09/22/2022 because of refractory acute hypoxic respiratory failure due to volume overload, acidosis and severe azotemia. Baseline renal function is unclear although there is a notation that serum creatinine was 1.60 mg/dL in 2020.? The last available serum creatinine in [facility] was from 04/22/2014 at 1.3 mg/dL.? Last available outpatient serum creatinine prior to the last admission was from February 2021 at 1.6 mg/dL. Suspect the patient has underlying diabetic kidney disease.? He is proteinuric in nephrotic range and has had longstanding, poorly controlled diabetes with retinopathy. It is possible that he has ESRD secondary to progression of progressive diabetic kidney disease in the setting of poorly controlled diabetes. However, we were never able to biopsy the patient for definitive diagnosis and prognosis because of his inability to tolerate the procedure. So far, there is no evidence of renal recovery.? The patient remains dialysis dependent with oliguria and increasing azotemia between dialysis. The plan is to pursue kidney biopsy if there is no recovery of renal function after 1 month on dialysis.? This can be done as an outpatient. For now, we will continue dialysis on [facility] schedule.? He dialyzes at [facility] as outpatient. The patient was dialyzed yesterday prior to presentation to the hospital. There is no need for dialysis today.? I will arrange for dialysis on his usual schedule on 11/02/2022. Hypertension. BP was as high as 207/124 on 09/16/2022. BP has been more reasonably controlled prior to discharge charge on 10/19/2022.? He was discharged on hydralazine 50 mg 3 times daily, carvedilol 25 mg twice daily, and amlodipine 5 mg daily.? He is currently off of antihypertensive because he is n.p.o.? I would restart antihypertensive when he is no longer NPO. For now, we can use as needed parenteral antihypertensive such as labetalol for SBP above 180 or DBP above 120. CAD with heart failure with reduced ejection fraction?presumably from systolic dysfunction related to ischemia. The patient appears to be compensated. Will continue to remove fluid with dialysis. Restart beta-gwyn and hydralazine/nitrate when able. Anemia. Hemoglobin is low but stable at 8.3 g/dL today.? We will continue IV iron and INOCENCIO with dialysis at outpatient kidney center. HPI Consult Data Date of Consult: 10/31/22 HPI Narrative HPI Narrative: SCOTT BUTLER, is a 57-year-old man known to our service with type 1 diabetes mellitus, hypertension, CAD, congenital deafness, prior stroke, and chronic kidney disease who was recently admitted to this hospital between 09/16/2022 until 10/19/2022 for DKA, NSTEMI, acute hypoxic respiratory failure requiring mechanical ventilator, and acute kidney injury on chronic kidney disease. Our service cared for the patient during this admission because of TREVOR on CKD.? The patient was started on hemodialysis on 09/21/2022 because of severe azotemia with serum creatinine of 8.92 mg/dL.? Serum creatinine prior to the last admission was from February 2021 at 1.6 mg/dL.? Given poor control of diabetes, it is possible that we are seeing progression of CKD to ESRD although the patient did not get a kidney biopsy during the last admission because of his inability to lay flat and because of anxiety that prevented us from doing a biopsy safely. The patient was recently admitted to the hospital again between 10/21/2022 until 10/27/2022 with acute upper GI bleed. The patient returns to the hospital again last night on 10/30/2022 because of displacement of his PEG tube. The patient also had nausea/vomiting for 3 days prior to presentation with coffee-ground emesis. Apparently, the patient had also [facility]. The patient also presented to the emergency department on 10/29/2022 for possible aspiration pneumonia but did not require admission. Nephrology is asked to see the patient to help manage dialysis dependent TREVOR on CKD. The patient is maintained on dialysis on [facility] schedule as outpatient.? He is dialyzing at [facility]. He denies current chest pain, shortness of breath, or edema. Nausea has improved. [facility] Medical History (Updated 10/31/22 @ 10:[address] Radha Landaverde MD) Acute renal failure Acute respiratory failure with hypoxia Anemia CAD (coronary artery disease) CKD (chronic kidney disease) Congenital deafness Deaf Decreased left ventricular systolic function Diabetes HTN (hypertension) Hyperlipidemia Hypertensive emergency Metabolic acidosis Non-ST elevated myocardial infarction (non-STEMI) NSTEMI (non-ST elevated myocardial infarction) On mechanically assisted ventilation Pneumonia Regurgitation of food Stroke Vision problem Vomiting Home Medications dorzolamide-timolol (PF) 2 %-0.5 % eye drops in a dropperette 1 drp ophthalmic (eye) BID eyes 01/04/20 [History Last Taken 10/21/22] latanoprost 0.005 % eye drops 1 drp ophthalmic (eye) DAILY eyes 01/04/20 [History Last Taken 10/21/22] pen needle, diabetic 31 gauge x 5/16 (Comfort EZ Pen [place]) #1,200 ea 01/04/20 [History Last Taken Unknown] blood sugar diagnostic (Accu-Chek Guide test strips) #100 ea 03/07/20 [Rx Last Taken Unknown] amlodipine 5 mg tablet 5 mg feeding tube DAILY BP 09/14/22 [History Last Taken 10/21/22] ondansetron 4 mg disintegrating tablet 4 mg PO Q6H PRN nausea and vomiting #30 tabs 10/19/22 [Rx Last Taken 10/21/22] aspirin 81 mg tablet,delayed release 81 mg feeding tube BREAKFAST blood thinner 10/21/22 [History Last Taken 10/21/22] clopidogrel 75 mg tablet 75 mg feeding tube DAILY blood thinner 10/21/22 [History Last Taken 10/21/22] furosemide 40 mg tablet 40 mg feeding tube SuTuThSa hypertension 10/21/22 [History Last Taken 10/20/22] insulin lispro 100 unit/mL subcutaneous pen (Humalog KwikPen (U-100) Insulin) See Protocol subcut Q6H DM 10/21/22 [History Last Taken 10/21/22] isosorbide dinitrate 10 mg tablet 10 mg feeding tube BID CKD 10/21/22 [History Last Taken 10/21/22] polyethylene glycol 3350 17 gram oral powder packet 17 g PO BID PRN constipation #100 ea 10/27/22 [Rx Last Taken Unknown] atorvastatin 40 mg tablet 40 mg G-tube QHS cholesterol 10/31/22 [History Last Taken Unknown] carvedilol 25 mg tablet 25 mg G-tube BID blood pressure 10/31/22 [History Last Taken Unknown] clindamycin HCl 300 mg capsule (Cleocin HCl) 300 mg PO 4X/DAY aspiration pneumonia 10/31/22 [History Last Taken Unknown] hydralazine 50 mg tablet 50 mg G-tube TID hypertension 10/31/22 [History Last Taken Unknown] insulin glargine-yfgn 100 unit/mL (3 mL) subcutaneous pen 30 unit subcut 0600,1800 DM 10/31/22 [History Last Taken Unknown] lansoprazole 30 mg capsule,delayed release (Prevacid) 30 mg feeding tube BID gerd 10/31/22 [History Last Taken Unknown] levofloxacin 250 mg/10 mL oral solution 250 mg PO DAILY aspiration pneumonia 10/31/22 [History Last Taken Unknown] menthol 0.44 %-zinc oxide 20.6 % topical ointment (Calmoseptine) 1 applic topical BID redness 10/31/22 [History Last Taken Unknown] metoclopramide HCl 10 mg tablet (Reglan) 10 mg PO TID nausea 10/31/22 [History Last Taken Unknown] Allergy/AdvReac Type Severity Reaction Status Date / Time No Known Allergies Allergy Verified 09/15/22 10:39 Family History Mother Diabetes Deaf Surgical History S/P percutaneous endoscopic gastrostomy (PEG) tube placement Social History Smoking Status: Never smoker alcohol intake: never substance use type: does not use what type of physical activity do you participate in: none ROS ROS Narrative 07/20 ROS was completed. ROS is otherwise noncontributory other than what is documented in HPI. Physical Exam Narrative General: Alert and oriented x3.? No apparent distress. HEENT: Normocephalic, atraumatic.? Mucous membrane moist.? PERRLA, EOMI.? The patient is deaf and cannot hear. Neck: Supple, no JVD. Heart: Normal S1, S2.? No rubs, murmurs or gallops. Lungs: Clear to auscultation bilaterally. Abdomen: Nondistended, normal bowel sound, soft, epigastric tenderness on palpation without voluntary guarding or rebound. Extremities: No clubbing, cyanosis, or edema. Musculoskeletal: Full range of motion, no joint swelling. Skin: Warm and dry, no rash. Neurologic: No focal neurologic deficit.? Cranial nerve II through VII along with cranial nerve IX to XII are intact.? Cannot assess cranial nerve VIII because of lack of hearing. Psychiatric: Normal mood and affect. Lab / Micro Data Result Diagrams: 10/31/22 12:10 10/30/22 20:22 Labs: Laboratory Results - last 24 hr 10/30/22 20:22: WBC 17.7 H, RBC 2.98 L, Hgb 9.1 L, Hct 28.3 L, MCV 95.0 H, MCH 30.5, MCHC 32.2, RDW Std Deviation 42.5, RDW Coeff of Jenifer 12.3, Plt Count 487 H, MPV 10.1, Immature Gran % (Auto) 0.500, Neut % (Auto) 79.3 H, Lymph % (Auto) 10.7 L, [place] % (Auto) 8.4, Eos % (Auto) 0.6, Baso % (Auto) 0.5, Absolute Neuts (auto) 14.0 H, Absolute Lymphs (auto) 1.89, Nucleated RBC % 0 10/30/22 20:22: Sodium 136, Potassium 3.5, Chloride 94 L, Carbon Dioxide 34.0 H, Anion Gap 8, BUN 25 H, Creatinine 4.26 H, Estim Creat Clear Calc 17.67, Est GFR (MDRD) Af Amer 19 L, Est GFR (MDRD) Non-Af 15 L, BUN/Creatinine Ratio 5.9 L, Glucose 145 H, Calcium 8.7, Total Bilirubin 0.30, AST 20, ALT 24, Alkaline Phosphatase 97, Total Protein 8.2, Albumin 1.8 L, Globulin 6.4 H, Albumin/Globulin Ratio 0.3 L, Lipase 158 10/31/22 00:46: POC Glucose 142 H 10/31/22 06:35: WBC 15.7 H, RBC 2.63 L, Hgb 7.9 L, Hct 25.4 L, MCV 96.6 H, MCH 30.0, MCHC 31.1 L, RDW Std Deviation 44.0 H, RDW Coeff of Jenifer 12.6, Plt Count 392, MPV 10.0, Immature Gran % (Auto) 0.500, Neut % (Auto) 81.0 H, Lymph % (Auto) 8.1 L, [place] % (Auto) 8.3, Eos % (Auto) 1.6, Baso % (Auto) 0.5, Absolute Neuts (auto) 12.7 H, Absolute Lymphs (auto) 1.27, Nucleated RBC % 0 Radiology Impression KUB X-Ray 10/30/22 21:25 IMPRESSION: 1. Accumulation of contrast surrounding the stomach consistent with extravasation. Negligible contrast noted within the lumen. 2. PEG tube projects in the upper abdomen. Electronically Signed: Scott Alan MD at 21:59 EST , ADDENDUM: 10/30/22 2211 IMPRESSION: 1. Accumulation of contrast surrounding the stomach consistent with extravasation. Negligible contrast noted within the lumen. 2. PEG tube projects in the upper abdomen. N.B. : The above Results were Read Back by Scott Alan MD to Brandyn Woods MD, and understanding confirmed on 10/30/2022 22:04:11 (ET). Electronically Signed: Scott Alan MD at 21:59 EST , Chest X-Ray 10/30/22 22:14 IMPRESSION: 1. Dialysis catheter without change. 2. No evidence congestive failure. 3. Subtle area of interstitial infiltrate throughout the RIGHT mid and upper lung. No consolidation, no effusion. Electronically Signed: Scott Alan MD at 22:33 EST ,
--- NOTE | 2022-10-31 11:41 | CON.PCM.GI_ITS ---
HPI Consult Data Date of Consult: 10/31/22 HPI Narrative Reason for Consultation: Dislodged PEG and upper GI bleed HPI Narrative: SCOTT BUTLER, is a 57 M with a history of congenital blindness and deafness, recently discharged from the hospital with hypoglycemia, acute non-STEMI, ischemic cardiomyopathy and acute kidney injury.? Patient had had cardiac cath done which showed a multivessel disease and medical management was recommended.? He was started on dialysis for his acute kidney injury and transition to Wednesday?Wednesday?Wednesday dialysis via tunneled dialysis catheter.? He was then discharged and returned back to the hospital with hematemesis which was found to be an oozing gastric ulcer and was treated with a heater probe ? It seems like his Plavix and aspirin were held however looking at the [facility] paperwork the patient is still receiving those medications.? He was also found to have kidney failure and was placed on dialysis. Apparently he also pulled out his PEG tube today or yesterday or the day before the residential is not sure.? He is also been vomiting for 3 days and the nurses at the [facility] stated he also had hematemesis in the way of coffee-ground emesis. [facility] Medical History (Updated 10/31/22 @ 10:[address] Radha Landaverde MD) Acute renal failure Acute respiratory failure with hypoxia Anemia CAD (coronary artery disease) CKD (chronic kidney disease) Congenital deafness Deaf Decreased left ventricular systolic function Diabetes HTN (hypertension) Hyperlipidemia Hypertensive emergency Metabolic acidosis Non-ST elevated myocardial infarction (non-STEMI) NSTEMI (non-ST elevated myocardial infarction) On mechanically assisted ventilation Pneumonia Regurgitation of food Stroke Vision problem Vomiting Home Medications dorzolamide-timolol (PF) 2 %-0.5 % eye drops in a dropperette 1 drp ophthalmic (eye) BID eyes 01/04/20 [History Last Taken 10/21/22] latanoprost 0.005 % eye drops 1 drp ophthalmic (eye) DAILY eyes 01/04/20 [History Last Taken 10/21/22] pen needle, diabetic 31 gauge x 5/16 (Comfort EZ Pen [place]) #1,200 ea 01/04/20 [History Last Taken Unknown] blood sugar diagnostic (Accu-Chek Guide test strips) #100 ea 03/07/20 [Rx Last Taken Unknown] amlodipine 5 mg tablet 5 mg feeding tube DAILY BP 09/14/22 [History Last Taken 10/21/22] ondansetron 4 mg disintegrating tablet 4 mg PO Q6H PRN nausea and vomiting #30 tabs 10/19/22 [Rx Last Taken 10/21/22] aspirin 81 mg tablet,delayed release 81 mg feeding tube BREAKFAST blood thinner 10/21/22 [History Last Taken 10/21/22] clopidogrel 75 mg tablet 75 mg feeding tube DAILY blood thinner 10/21/22 [History Last Taken 10/21/22] furosemide 40 mg tablet 40 mg feeding tube SuTuThSa hypertension 10/21/22 [History Last Taken 10/20/22] insulin lispro 100 unit/mL subcutaneous pen (Humalog KwikPen (U-100) Insulin) See Protocol subcut Q6H DM 10/21/22 [History Last Taken 10/21/22] isosorbide dinitrate 10 mg tablet 10 mg feeding tube BID CKD 10/21/22 [History Last Taken 10/21/22] polyethylene glycol 3350 17 gram oral powder packet 17 g PO BID PRN constipation #100 ea 10/27/22 [Rx Last Taken Unknown] atorvastatin 40 mg tablet 40 mg G-tube QHS cholesterol 10/31/22 [History Last Taken Unknown] carvedilol 25 mg tablet 25 mg G-tube BID blood pressure 10/31/22 [History Last Taken Unknown] clindamycin HCl 300 mg capsule (Cleocin HCl) 300 mg PO 4X/DAY aspiration pneumonia 10/31/22 [History Last Taken Unknown] hydralazine 50 mg tablet 50 mg G-tube TID hypertension 10/31/22 [History Last Taken Unknown] insulin glargine-yfgn 100 unit/mL (3 mL) subcutaneous pen 30 unit subcut 0600,1800 DM 10/31/22 [History Last Taken Unknown] lansoprazole 30 mg capsule,delayed release (Prevacid) 30 mg feeding tube BID gerd 10/31/22 [History Last Taken Unknown] levofloxacin 250 mg/10 mL oral solution 250 mg PO DAILY aspiration pneumonia 10/31/22 [History Last Taken Unknown] menthol 0.44 %-zinc oxide 20.6 % topical ointment (Calmoseptine) 1 applic topical BID redness 10/31/22 [History Last Taken Unknown] metoclopramide HCl 10 mg tablet (Reglan) 10 mg PO TID nausea 10/31/22 [History Last Taken Unknown] Allergy/AdvReac Type Severity Reaction Status Date / Time No Known Allergies Allergy Verified 09/15/22 10:39 Family History Mother Diabetes Deaf Surgical History S/P percutaneous endoscopic gastrostomy (PEG) tube placement Social History Smoking Status: Never smoker alcohol intake: never substance use type: does not use what type of physical activity do you participate in: none ROS Review of Systems ROS Unobtainable: other Details: Review of systems limited by patient being deaf and blind. Physical Exam Narrative Physical exam: General: Well-nourished, well-developed. Head: Normocephalic, atraumatic, no tenderness Eyes:Could see waved hand. ENT, no trauma, moist mucous membranes, no rhinorrhea Neck: Nontender, No thyromegaly. CVS: Regular rate and rhythm. S1-S2 present. No murmur, gallop or rub. Respiratory : clear to auscultation bilaterally, chest wall nontender, no wheezing Abdomen: open incision at epigastric area (from previous peg tube) Soft, nontender, nondistended, normal bowel sounds, no masses : Lopez catheter Back: Nontender, no CVA tenderness, no midline spinal tenderness, deformities, step-offs Extremities: Nontender full range of motion, no trauma Skin: Normal color, no trauma, abrasions Neuro: Alert, Deaf and blind (could see waved hand) Psychiatry: Normal mood. Normal affect. Not depressed. Not anxious. Medical Records Data Medical Nutrition Assessment Dietitian: Malnutrition Criteria Met Start: 10/31/22 11:18 Freq: Status: Active Protocol: Document 10/31/22 11:18 (Rec: 10/31/22 11:19 [id number]) Nutrition Malnutrition Evidence of Malnutrition Exists Yes Malnutrition (severe): Acute Illness/Injury Evidenced By Suboptimal Energy Intake ( Severe),Weight Loss (Severe) Clinical Problem Acute Disease or Injury Related Malnutrition Etiology severe, acute malnutrition related to inadequate energy intake d/t nausea, PEG displacement Signs/Symptoms as evidenced by unintentional wt loss of 4.1kg/6% x 9 days; estimated enteral nutrition meeting <50% of estimated energy needs x 5 days over past 1-2 weeks Status Active Problem Recommendation Dietitian Recommendations/Changes Recommend placement of NGT until G tube can be replaced. Recommend Vital AF 1.2 at goal rate of 60mL/hour w/ 50mL H2O flush every 4 hours to provide 1728 calories, 108 g protein, and 1467mL total fluid/day. Would start at 30mL /hour and increase by 15mL/ hour every 8-12 hours as tolerated until goal rate is achieved. Recommend reglan given suspected gastroparesis. [employer] for ongoing ST. Daily wts. Lab / Micro Data Result Diagrams: 10/31/22 06:35 10/30/22 20:22 Labs: Laboratory Results - last 24 hr 10/30/22 20:22: WBC 17.7 H, RBC 2.98 L, Hgb 9.1 L, Hct 28.3 L, MCV 95.0 H, MCH 30.5, MCHC 32.2, RDW Std Deviation 42.5, RDW Coeff of Jenifer 12.3, Plt Count 487 H, MPV 10.1, Immature Gran % (Auto) 0.500, Neut % (Auto) 79.3 H, Lymph % (Auto) 10.7 L, [place] % (Auto) 8.4, Eos % (Auto) 0.6, Baso % (Auto) 0.5, Absolute Neuts (auto) 14.0 H, Absolute Lymphs (auto) 1.89, Nucleated RBC % 0 10/30/22 20:22: Sodium 136, Potassium 3.5, Chloride 94 L, Carbon Dioxide 34.0 H, Anion Gap 8, BUN 25 H, Creatinine 4.26 H, Estim Creat Clear Calc 17.67, Est GFR (MDRD) Af Amer 19 L, Est GFR (MDRD) Non-Af 15 L, BUN/Creatinine Ratio 5.9 L, Glucose 145 H, Calcium 8.7, Total Bilirubin 0.30, AST 20, ALT 24, Alkaline Phosphatase 97, Total Protein 8.2, Albumin 1.8 L, Globulin 6.4 H, Albumin/Globulin Ratio 0.3 L, Lipase 158 10/31/22 00:46: POC Glucose 142 H 10/31/22 06:35: WBC 15.7 H, RBC 2.63 L, Hgb 7.9 L, Hct 25.4 L, MCV 96.6 H, MCH 30.0, MCHC 31.1 L, RDW Std Deviation 44.0 H, RDW Coeff of Jenifer 12.6, Plt Count 392, MPV 10.0, Immature Gran % (Auto) 0.500, Neut % (Auto) 81.0 H, Lymph % (Auto) 8.1 L, [place] % (Auto) 8.3, Eos % (Auto) 1.6, Baso % (Auto) 0.5, Absolute Neuts (auto) 12.7 H, Absolute Lymphs (auto) 1.27, Nucleated RBC % 0 Radiology Impression KUB X-Ray 10/30/22 21:25 IMPRESSION: 1. Accumulation of contrast surrounding the stomach consistent with extravasation. Negligible contrast noted within the lumen. 2. PEG tube projects in the upper abdomen. Electronically Signed: Scott Alan MD at 21:59 EST , ADDENDUM: 10/30/222210 IMPRESSION: 1. Accumulation of contrast surrounding the stomach consistent with extravasation. Negligible contrast noted within the lumen. 2. PEG tube projects in the upper abdomen. N.B. : The above Results were Read Back by Scott Alan MD to Brandyn Woods MD, and understanding confirmed on 10/30/2022 22:04:11 (ET). Electronically Signed: Scott Alan MD at 21:59 EST , Chest X-Ray 10/30/22 22:14 IMPRESSION: 1. Dialysis catheter without change. 2. No evidence congestive failure. 3. Subtle area of interstitial infiltrate throughout the RIGHT mid and upper lung. No consolidation, no effusion. Electronically Signed: Scott Alan MD at 22:33 EST , Assessment & Plan Assessment/Plan (1) GI bleed: PLAN: GI bleed secondary to a likely pressure ulcer associated with a new PEG tube that was placed. It was treated endoscopically with cautery. He is likely iron deficient due to multiple chronic diseases. This current GI bleed is possibly secondary to bleeding at the PEG site where it was dislodged. I agree with transfusion of packed red blood cells and he may also need iron transfusion. He would likely need an upper endoscopy through evaluate his repeat upper GI bleed and to replace his PEG tube. Charges/Coding Visit Charges Inpatient E&M: 17460 Init Hosp L2
[2022-10-31 11:45] LABS: Bedside Glucose 116 mg/dL (74-106)
[2022-10-31 12:00] LABS: Bedside Glucose 127 mg/dL (74-106)
[2022-10-31 12:24] LABS: Hemoglobin 8.3 g/dL (13.0-16.5)
--- NOTE | 2022-10-31 12:36 | PCM.PN.HOSP ---
Subjective Subjective Appears to be doing well, no issues overnight. Communication is difficult he is deaf and cannot read lips. He also cannot read very well and during his previous admission even the design/animation instructor had difficulty understanding what he was signing Objective Data Objective Data Vital Signs: Vital Signs Temp Pulse Resp BP Pulse Ox O2 Del Method O2 Flow Rate 97.6 F L 78 16 132/71 H 97 Nasal Cannula 3 10/31/22 09:44 10/31/22 09:44 10/31/22 09:44 10/31/22 09:44 10/31/22 09:44 10/31/22 10:00 10/31/22 10:00 Oxygen Flow Rate (L/min) 3 Oxygen Delivery Method Nasal Cannula Weight: 139 lb 1.787 oz Body Mass Index (BMI) 21.7 Intake & Output: Intake and Output for Last 24 Hours 10/30/22 10/31/22 11/01/22 03:59 03:59 03:59 Intake Total 1222 / 1222 592 / 592 Output Total 0 / 0 Balance 1222 / 1222 592 / 592 Medical Nutrition Assessment Dietitian: Malnutrition Criteria Met Start: 10/31/22 11:18 Freq: Status: Active Protocol: Document 10/31/22 11:18 AG (Rec: 10/31/22 11:19 AG [id number]) Nutrition Malnutrition Evidence of Malnutrition Exists Yes Malnutrition (severe): Acute Illness/Injury Evidenced By Suboptimal Energy Intake ( Severe),Weight Loss (Severe) Clinical Problem Acute Disease or Injury Related Malnutrition Etiology severe, acute malnutrition related to inadequate energy intake d/t nausea, PEG displacement Signs/Symptoms as evidenced by unintentional wt loss of 4.1kg/6% x 9 days; estimated enteral nutrition meeting <50% of estimated energy needs x 5 days over past 1-2 weeks Status Active Problem Recommendation Dietitian Recommendations/Changes Recommend placement of NGT until G tube can be replaced. Recommend Vital AF 1.2 at goal rate of 60mL/hour w/ 50mL H2O flush every 4 hours to provide 1728 calories, 108 g protein, and 1467mL total fluid/day. Would start at 30mL /hour and increase by 15mL/ hour every 8-12 hours as tolerated until goal rate is achieved. Recommend reglan given suspected gastroparesis. 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 Lab / Micro Data Result Diagrams: 10/31/22 12:10 10/30/22 20:22 Labs: Laboratory Results - last 24 hr 10/30/22 20:22: WBC 17.7 H, RBC 2.98 L, Hgb 9.1 L, Hct 28.3 L, MCV 95.0 H, MCH 30.5, MCHC 32.2, RDW Std Deviation 42.5, RDW Coeff of Jenifer 12.3, Plt Count 487 H, MPV 10.1, Immature Gran % (Auto) 0.500, Neut % (Auto) 79.3 H, Lymph % (Auto) 10.7 L, [place] % (Auto) 8.4, Eos % (Auto) 0.6, Baso % (Auto) 0.5, Absolute Neuts (auto) 14.0 H, Absolute Lymphs (auto) 1.89, Nucleated RBC % 0 10/30/22 20:22: Sodium 136, Potassium 3.5, Chloride 94 L, Carbon Dioxide 34.0 H, Anion Gap 8, BUN 25 H, Creatinine 4.26 H, Estim Creat Clear Calc 17.67, Est GFR (MDRD) Af Amer 19 L, Est GFR (MDRD) Non-Af 15 L, BUN/Creatinine Ratio 5.9 L, Glucose 145 H, Calcium 8.7, Total Bilirubin 0.30, AST 20, ALT 24, Alkaline Phosphatase 97, Total Protein 8.2, Albumin 1.8 L, Globulin 6.4 H, Albumin/Globulin Ratio 0.3 L, Lipase 158 10/31/22 00:46: POC Glucose 142 H 10/31/22 06:19: POC Glucose 116 H 10/31/22 06:35: WBC 15.7 H, RBC 2.63 L, Hgb 7.9 L, Hct 25.4 L, MCV 96.6 H, MCH 30.0, MCHC 31.1 L, RDW Std Deviation 44.0 H, RDW Coeff of Jenifer 12.6, Plt Count 392, MPV 10.0, Immature Gran % (Auto) 0.500, Neut % (Auto) 81.0 H, Lymph % (Auto) 8.1 L, [place] % (Auto) 8.3, Eos % (Auto) 1.6, Baso % (Auto) 0.5, Absolute Neuts (auto) 12.7 H, Absolute Lymphs (auto) 1.27, Nucleated RBC % 0 10/31/22 11:39: POC Glucose 127 H 10/31/22 12:10: Hgb 8.3 L, Hct 27.0 L Radiography Diagnostic Testing: Radiology Impression KUB X-Ray 10/30/22 21:25 IMPRESSION: 1. Accumulation of contrast surrounding the stomach consistent with extravasation. Negligible contrast noted within the lumen. 2. PEG tube projects in the upper abdomen. Electronically Signed: Antonio Alan MD at 21:59 EST , ADDENDUM: 10/30/222210 IMPRESSION: 1. Accumulation of contrast surrounding the stomach consistent with extravasation. Negligible contrast noted within the lumen. 2. PEG tube projects in the upper abdomen. N.B. : The above Results were Read Back by Antonio Alan MD to Brandyn Woods MD, and understanding confirmed on 10/30/2022 22:04:11 (ET). Electronically Signed: Antonio Alan MD at 21:59 EST , Chest X-Ray 10/30/22 22:14 IMPRESSION: 1. Dialysis catheter without change. 2. No evidence congestive failure. 3. Subtle area of interstitial infiltrate throughout the RIGHT mid and upper lung. No consolidation, no effusion. Electronically Signed: Antonio Alan MD at 22:33 EST , Physical Exam Narrative General: Alert, no apparent distress HEENT: Atraumatic, normocephalic, deaf Oral: Moist Mucosa Neck: Supple, No JVD Lungs: Diminished, Normal air movement, No rhonchi, No wheeze, No rales Cardiovascular: Regular rate, Regular Rhythm, Normal S1, Normal S2, No murmurs Abdomen: Soft, Non Tender, Non-Distended, No Hepato-splenomegaly, dressing over the PEG tube hole Extremities: No edema, Capillary Refill Less than 3 Seconds Skin: No rashes, No breakdown Musculoskeletal: No Tenderness to Palpation of Joints or Extremities Neurological: Moves his extremities however difficult to communicate intensive exam Psych/Mental Status: Normal Affect, Appropriate Assessment & Plan Assessment/Plan (1) ABLA (acute blood loss anemia): (2) PEG tube malfunction: (3) Aspiration pneumonia: PLAN: Plan 1. Acute blood loss anemia secondary to pulling out a PEG tube ? We will consult GI for an upper endoscopy and replacement of the PEG tube ? Will transfuse as necessary, given his recent cardiac history his threshold for transfusion will be a hemoglobin of 8 ? IV fluids ? Continue with PPI 2. Aspiration pneumonia/dysphagia ? She did have some emesis and now he has an elevated white count with a chest x-ray showing possible infiltrate in the right, will continue with Unasyn ? We will plan to reinsert PEG tube given his issues with dysphagia and probable gastroparesis 3. DM1/ESRD with dialysis M, W, F ? Accu-Cheks ACH ? Sliding scale insulin ? We will make adjustments as necessary ? We will consult nephrology for dialysis 4. CAD/HTN/HLD ? On his previous admission when he was here for 30 days he did have a non-STEMI, at that time he had a cardiac cath which demonstrated multivessel disease and medical management was recommended at that time. We will continue with his aspirin, Plavix once okay with GI ? Continue with Lipitor and Coreg as well as Norvasc once his PEG tube was reinserted ? We will hold his Lasix but continue with his hydralazine and his isosorbide dinitrate, once his PEG tube is reinserted 5. Severe protein calorie malnutrition ? Consult nutrition Congenital deafness and congenital blindness as well as an inability to read does make communication very challenging and also complicates his care. DVT: SCDs Charges/Coding Visit Charges Inpatient E&M: 03706 Subs Hosp L2
[2022-10-31 17:06] LABS: Bedside Glucose 133 mg/dL (74-106)
[2022-10-31 18:54] LABS: Hemoglobin 7.6 g/dL (13.0-16.5)
[2022-11-01] VITALS (17 sets, daily range): BP systolic 118–163; BP diastolic 60–78; PULSE 78–93; RESP 15–18; TEMP 36.3–36.9; O2SAT 94–99; BMI 21.7
[2022-11-01] MEDS: 0.9% Normal Saline 1,000 ML 40 ML IV (00:15)
[2022-11-01] MEDS: Insulin Lispro 100 UNIT/ML INSULN.PEN SC ×3 (00:16→17:16)
[2022-11-01 00:41] LABS: Bedside Glucose 162 mg/dL (74-106)
[2022-11-01] MEDS: Metoprolol Tartrate 5 MG/5 ML Vial IV ×3 (05:33→17:17)
--- NOTE | 2022-11-01 05:55 | EKG12_ITS ---
Test Reason : AM EKG Blood Pressure : / mmHG Vent. Rate : 082 BPM Atrial Rate : 082 BPM P-R Int : 150 ms QRS Dur : 082 ms QT Int : 400 ms P-R-T Axes : 063 073 -05 degrees QTc Int : 467 ms Normal sinus rhythm Left ventricular hypertrophy with repolarization abnormality ( Sokolow-Perez ) Abnormal ECG When compared with ECG of 30-OCT-2022 21:08, MANUAL COMPARISON REQUIRED, DATA IS UNCONFIRMED Confirmed by AMRITA HERMOSILLO, MYRA ([id number]), photograph editor EMMANUEL NEWMAN ([id number]) on 11/03/2022 11:32:13 AM Referred By: Confirmed By:MYRA CROWE MD
[2022-11-01 06:46] LABS: International Normalized Ratio 1.1; Prothrombin Time (Protime)PT. 14.1 SECONDS (11.7-14.9)
[2022-11-01 06:47] LABS: Partial Thromboplast Time 34.9 Seconds (24.1-36.2)
[2022-11-01 06:50] LABS: Bedside Glucose 168 mg/dL (74-106)
[2022-11-01 06:56] LABS: Absolute Lymphocyte Count 1.03 X10^3/uL (0.83-4.51); Absolute Neutrophil Count 7.4 X10^3/uL (2.0-7.7); Basophil# 0.14 X10^3/uL; Basophil% 1.4 % (0-1); Eosinophil# 0.49 X10^3/uL; Hematocrit 27.4 % (40-54); Hemoglobin 8.4 g/dL (13.0-16.5); Lymphocyte # 1.03 X10^3/ul (0.83-4.51); Lymphocyte % 10.4 % (19-41); Mean Corp Hgb Conc 30.7 g/dL (32-36); Mean Corpuscular Hgb 29.8 pg (27.0-32.0); Mean Corpuscular Volume 97.2 fL (80-94); Mean Platelet Vol. 10.3 fl (6.2-12.0); Monocyte# 0.81 X10^3/uL; Monocyte% 8.2 % (0-10); NRBC Flagged by Analyzer 0 % (0-5); Neutrophil # 7.38 X10^3/uL (2.7-7.7); Neutrophil % 74.6 % (47-70); Platelet Count 430 K/mm3 (150-450); RBC Distribution Width CV 12.3 % (11.6-14.6); RBC Distribution Width SD 43.9 fl (35.1-43.9); Red Blood Count 2.82 M/mm3 (4.6-6.2); White Blood Count 9.9 K/mm3 (4.4-11.0)
[2022-11-01 07:40] LABS: Anion Gap 13 (5-15); BUN 40 mg/dL (7-18); BUN/Creat Ratio 5.9 RATIO (10-20); Calcium,Total 8.5 mg/dL (8.5-10.1); Chloride 100 mmol/L (98-107); Creatinine, Serum 6.78 mg/dL (0.70-1.30); EST Glomerular Filtration Rate 9 mL/min (>60); Est Glom Filt Rate - Afr Amer 11 mL/min (>60); Glucose 178 mg/dL (74-106); Potassium 3.7 mmol/L (3.5-5.1); Sodium Level 139 mmol/L (136-145)
[2022-11-01 07:47] LABS: Hemoglobin A1c 6.9 % (3.8-5.6)
[2022-11-01] MEDS: Menthol/Lanolin/Calamine/Znox 113 GM Tube 1 APPLIC TOPICAL ×2 (09:03→22:47)
--- NOTE | 2022-11-01 10:33 | PN.RENAL_ITS ---
Subjective Subjective Following for dialysis dependent renal failure. The patient is deaf, so ROS is limited. He appears to be comfortable. No complaint of abdominal pain or nausea today per RN. Objective Data Objective Data Vital Signs: Vital Signs Temp Pulse Resp BP Pulse Ox O2 Del Method O2 Flow Rate 98.1 F 85 16 158/77 H 97 Nasal Cannula 2 11/01/22 09:03 11/01/22 09:03 11/01/22 09:03 11/01/22 09:03 11/01/22 09:03 11/01/22 09:47 11/01/22 09:47 Oxygen Flow Rate (L/min) 2 Oxygen Delivery Method Nasal Cannula Weight: 63.1 kg Body Mass Index (BMI) 21.7 Intake & Output: Intake and Output for Last 24 Hours 10/30/22 10/31/22 11/01/22 23:59 23:59 23:59 Intake Total 222 / 222 1702 / 1702 520 / 520 Output Total 0 / 0 350 / 350 Balance 222 / 222 1702 / 1702 170 / 170 Medical Nutrition Assessment Dietitian: Malnutrition Criteria Met Start: 10/31/22 11:18 Freq: Status: Active Protocol: Document 10/31/22 11:18 AG (Rec: 10/31/22 11:19 AG [id number]) Nutrition Malnutrition Evidence of Malnutrition Exists Yes Malnutrition (severe): Acute Illness/Injury Evidenced By Suboptimal Energy Intake ( Severe),Weight Loss (Severe) Clinical Problem Acute Disease or Injury Related Malnutrition Etiology severe, acute malnutrition related to inadequate energy intake d/t nausea, PEG displacement Signs/Symptoms as evidenced by unintentional wt loss of 4.1kg/6% x 9 days; estimated enteral nutrition meeting <50% of estimated energy needs x 5 days over past 1-2 weeks Status Active Problem Recommendation Dietitian Recommendations/Changes Recommend placement of NGT until G tube can be replaced. Recommend Vital AF 1.2 at goal rate of 60mL/hour w/ 50mL H2O flush every 4 hours to provide 1728 calories, 108 g protein, and 1467mL total fluid/day. Would start at 30mL /hour and increase by 15mL/ hour every 8-12 hours as tolerated until goal rate is achieved. Recommend reglan given suspected gastroparesis. 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 Daily wts. Lab / Micro Data Result Diagrams: 11/01/22 06:17 11/01/22 06:17 Labs: Laboratory Results - last 24 hr 10/31/22 06:19: POC Glucose 116 H 10/31/22 11:39: POC Glucose 127 H 10/31/22 12:10: Hgb 8.3 L, Hct 27.0 L 10/31/22 16:39: POC Glucose 133 H 10/31/22 18:30: Hgb 7.6 L, Hct 25.0 L 11/01/22 00:14: POC Glucose 162 H 11/01/22 05:32: POC Glucose 168 H 11/01/22 06:00: PT 14.1, INR 1.1, APTT 34.9 11/01/22 06:00: Hemoglobin A1c 6.9 H 11/01/22 06:17: WBC 9.9, RBC 2.82 L, Hgb 8.4 L, Hct 27.4 L, MCV 97.2 H, MCH 29.8, MCHC 30.7 L, RDW Std Deviation 43.9, RDW Coeff of Jenifer 12.3, Plt Count 430, MPV 10.3, Immature Gran % (Auto) 0.400, Neut % (Auto) 74.6 H, Lymph % (Auto) 10.4 L, [place] % (Auto) 8.2, Eos % (Auto) 5.0, Baso % (Auto) 1.4 H, Absolute Neuts (auto) 7.4, Absolute Lymphs (auto) 1.03, Nucleated RBC % 0 11/01/22 06:17: Sodium 139, Potassium 3.7, Chloride 100, Carbon Dioxide 26.0, Anion Gap 13, BUN 40 H, Creatinine 6.78 H, Estim Creat Clear Calc 10.60, Est GFR (MDRD) Af Amer 11 L, Est GFR (MDRD) Non-Af 9 L, BUN/Creatinine Ratio 5.9 L, Glucose 178 H, Calcium 8.5 Physical Exam Narrative General: Alert and oriented x3.? No apparent distress. HEENT: Normocephalic, atraumatic.? Mucous membrane moist.? PERRLA.? The patient is deaf. Neck: Supple, no JVD. Heart: Normal S1, S2.? No rubs, murmurs or gallops. Lungs: Clear to auscultation bilaterally. Abdomen: Nondistended, normal bowel sound, soft, epigastric tenderness on palpation without voluntary guarding or rebound. Extremities: No clubbing, cyanosis, or edema. Assessment & Plan Assessment/Plan (1) TREVOR (acute kidney injury): (2) CKD (chronic kidney disease): (3) HTN (hypertension): (4) Decreased left ventricular systolic function: (5) Macrocytic anemia: PLAN: Plan Impression/Plan: The patient is a 57-year-old man with past history of type 1 diabetes mellitus, hypertension, CAD, congenital deafness, prior stroke, and chronic kidney disease who was recently admitted to this hospital between 09/16/2022 until 10/19/2022 for DKA, hypertensive emergency, NSTEMI, acute hypoxic respiratory failure requiring temporary mechanical ventilator, and acute kidney injury on chronic kidney disease.? The patient has had a progressive loss of renal function and was started on dialysis on 09/22/2022.? The patient was readmitted to the hospital between 10/21/2022 until 10/27/2022 with upper GI bleed. He returns again to the hospital on 10/30/2022 with dislodgment of his PEG tube.? Nephrology is following for dialysis dependent TREVOR on CKD. Acute kidney injury on chronic kidney disease, unspecified stage. The patient was started on dialysis on 09/22/2022 because of refractory acute hypoxic respiratory failure due to volume overload, acidosis and severe azotemia. Baseline renal function is unclear although there is a notation that serum creatinine was 1.60 mg/dL in 2020.? The last available serum creatinine in [facility] was from 04/22/2014 at 1.3 mg/dL.? Last available outpatient serum creatinine prior to the hospital admission in September 2022 was from February 2021 at 1.6 mg/dL. Suspect the patient has underlying diabetic kidney disease.? He is proteinuric in nephrotic range and has had longstanding, poorly controlled diabetes with retinopathy. It is possible that he has progressed to ESRD secondary to progression of progressive diabetic kidney disease in the setting of poorly controlled diabetes. However, we were never able to biopsy the kidney for definitive diagnosis and pr ognosis because of the patient's inability to tolerate the procedure. So far, there is no evidence of renal recovery.? The patient remains dialysis dependent with oliguria and increasing azotemia between dialysis. The plan is to pursue kidney biopsy if there is no recovery of renal function after 1-2 months on dialysis.? This can be done as an outpatient. For now, we will continue dialysis on [facility] schedule.? He dialyzes at [facility] as outpatient on 10/30/2022. There is no need for dialysis today.? I will arrange for dialysis on his usual schedule on 11/02/2022. Hypertension. BP was as high as 207/124 on 09/16/2022. BP has been more reasonably controlled prior to discharge charge on 10/19/2022.? He was discharged on hydralazine 50 mg 3 times daily, carvedilol 25 mg twice daily, and amlodipine 5 mg daily.? He was off of antihypertensive yesterday because he is n.p.o.? I would recommend restarting antihypertensive when he is no longer n.p.o. CAD with heart failure with reduced ejection fraction?presumably from systolic dysfunction related to ischemia. The patient appears to be compensated. Will continue to remove fluid with dialysis. Recommend restarting beta-gwyn and hydralazine/nitrate when the patient is no longer n.p.o. Anemia. Hemoglobin is low but stable at 8.4 g/dL today.? We will continue IV iron and INOCENCIO with dialysis at outpatient kidney center.
--- NOTE | 2022-11-01 10:55 | PCM.PN.HOSP ---
Subjective Subjective No issues overnight, doing well Objective Data Objective Data Vital Signs: Vital Signs Temp Pulse Resp BP Pulse Ox O2 Del Method O2 Flow Rate 98.1 F 85 16 158/77 H 97 Nasal Cannula 2 11/01/22 09:03 11/01/22 09:03 11/01/22 09:03 11/01/22 09:03 11/01/22 09:03 11/01/22 09:47 11/01/22 09:47 Oxygen Flow Rate (L/min) 2 Oxygen Delivery Method Nasal Cannula Weight: 139 lb 1.787 oz Body Mass Index (BMI) 21.7 Intake & Output: Intake and Output for Last 24 Hours 10/31/22 11/01/22 11/02/22 03:59 03:59 03:59 Intake Total 1222 / 1222 1222 / 1222 420 / 420 Output Total 0 / 0 350 / 350 Balance 1222 / 1222 1222 / 1222 70 / 70 Medical Nutrition Assessment Dietitian: Malnutrition Criteria Met Start: 10/31/22 11:18 Freq: Status: Active Protocol: Document 10/31/22 11:18 AG (Rec: 10/31/22 11:19 [id number]) Nutrition Malnutrition Evidence of Malnutrition Exists Yes Malnutrition (severe): Acute Illness/Injury Evidenced By Suboptimal Energy Intake ( Severe),Weight Loss (Severe) Clinical Problem Acute Disease or Injury Related Malnutrition Etiology severe, acute malnutrition related to inadequate energy intake d/t nausea, PEG displacement Signs/Symptoms as evidenced by unintentional wt loss of 4.1kg/6% x 9 days; estimated enteral nutrition meeting <50% of estimated energy needs x 5 days over past 1-2 weeks Status Active Problem Recommendation Dietitian Recommendations/Changes Recommend placement of NGT until G tube can be replaced. Recommend Vital AF 1.2 at goal rate of 60mL/hour w/ 50mL H2O flush every 4 hours to provide 1728 calories, 108 g protein, and 1467mL total fluid/day. Would start at 30mL /hour and increase by 15mL/ hour every 8-12 hours as tolerated until goal rate is achieved. Recommend reglan given suspected gastroparesis. 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 Daily wts. Lab / Micro Data Result Diagrams: 11/01/22 06:17 11/01/22 06:17 Labs: Laboratory Results - last 24 hr 10/31/22 06:19: POC Glucose 116 H 10/31/22 11:39: POC Glucose 127 H 10/31/22 12:10: Hgb 8.3 L, Hct 27.0 L 10/31/22 16:39: POC Glucose 133 H 10/31/22 18:30: Hgb 7.6 L, Hct 25.0 L 11/01/22 00:14: POC Glucose 162 H 11/01/22 05:32: POC Glucose 168 H 11/01/22 06:00: PT 14.1, INR 1.1, APTT 34.9 11/01/22 06:00: Hemoglobin A1c 6.9 H 11/01/22 06:17: WBC 9.9, RBC 2.82 L, Hgb 8.4 L, Hct 27.4 L, MCV 97.2 H, MCH 29.8, MCHC 30.7 L, RDW Std Deviation 43.9, RDW Coeff of Jenifer 12.3, Plt Count 430, MPV 10.3, Immature Gran % (Auto) 0.400, Neut % (Auto) 74.6 H, Lymph % (Auto) 10.4 L, [place] % (Auto) 8.2, Eos % (Auto) 5.0, Baso % (Auto) 1.4 H, Absolute Neuts (auto) 7.4, Absolute Lymphs (auto) 1.03, Nucleated RBC % 0 11/01/22 06:17: Sodium 139, Potassium 3.7, Chloride 100, Carbon Dioxide 26.0, Anion Gap 13, BUN 40 H, Creatinine 6.78 H, Estim Creat Clear Calc 10.60, Est GFR (MDRD) Af Amer 11 L, Est GFR (MDRD) Non-Af 9 L, BUN/Creatinine Ratio 5.9 L, Glucose 178 H, Calcium 8.5 Physical Exam Narrative General: Alert, no apparent distress HEENT: Atraumatic, normocephalic, deaf Oral: Moist Mucosa Neck: Supple, No JVD Lungs: Diminished, Normal air movement, No rhonchi, No wheeze, No rales Cardiovascular: Regular rate, Regular Rhythm, Normal S1, Normal S2, No murmurs Abdomen: Soft, Non Tender, Non-Distended, No Hepato-splenomegaly, dressing over the PEG tube hole Extremities: No edema, Capillary Refill Less than 3 Seconds Skin: No rashes, No breakdown Musculoskeletal: No Tenderness to Palpation of Joints or Extremities Neurological: Moves his extremities however difficult to communicate intensive exam Psych/Mental Status: Normal Affect, Appropriate Assessment & Plan Assessment/Plan (1) ABLA (acute blood loss anemia): (2) PEG tube malfunction: (3) Aspiration pneumonia: PLAN: Plan 1. Acute blood loss anemia secondary to pulling out a PEG tube ? We will consult GI for an upper endoscopy and replacement of the PEG tube though family was in to visit and mention to the nurse that they may not want the PEG tube replaced however they had left the room before I could come into discussed with them alternatives ? Will transfuse as necessary, given his recent cardiac history his threshold for transfusion will be a hemoglobin of 8 ? IV fluids ? Continue with PPI 2. Aspiration pneumonia/dysphagia ? She did have some emesis and now he has an elevated white count with a chest x-ray showing possible infiltrate in the right, will continue with Unasyn ? We will plan to reinsert PEG tube given his issues with dysphagia and probable gastroparesis 3. DM1/ESRD with dialysis M, W, F ? Accu-Cheks ACH ? Sliding scale insulin ? We will make adjustments as necessary ? We will consult nephrology for dialysis 4. CAD/HTN/HLD ? On his previous admission when he was here for 30 days he did have a non-STEMI, at that time he had a cardiac cath which demonstrated multivessel disease and medical management was recommended at that time. We will continue with his aspirin, Plavix once okay with GI ? Continue with Lipitor and Coreg as well as Norvasc once his PEG tube was reinserted ? We will hold his Lasix but continue with his hydralazine and his isosorbide dinitrate, once his PEG tube is reinserted 5. Severe protein calorie malnutrition ? Consult nutrition Congenital deafness and congenital blindness as well as an inability to read does make communication very challenging and also complicates his care. DVT: SCDs Charges/Coding Visit Charges Inpatient E&M: 25037 Subs Hosp L2
[2022-11-01 12:05] LABS: Bedside Glucose 207 mg/dL (74-106)
--- NOTE | 2022-11-01 14:48 | OP.EGD_ITS ---
Patient Name: Antonio Saldivar Procedure Date: 11/01/2022 2:02 PM Date of : 1965 Age: 57 Procedure: Upper GI endoscopy Indications: Coffee-ground emesis, Place PEG because patient is unable to eat, Place PEG due to aspiration risk Providers: Damián Deleon DO Medicines: Monitored Anesthesia Care Patient Profile: This is a 57 year old male. Refer to note in patient chart for documentation of history and physical. Patient has symptoms of acute vomiting. He is status post EGD for PEG placement recently. Complications: No immediate complications. Procedure: Pre-Anesthesia Assessment: - Prior to the procedure, a History and Physical was performed, and patient medications and allergies were reviewed. The patient is competent. The risks and benefits of the procedure and the sedation options and risks were discussed with the patient. All questions were answered and informed consent was obtained. Patient identification and proposed procedure were verified by the physician. Mental Status Examination: normal. Prophylactic Antibiotics: The patient does not require prophylactic antibiotics. Prior Anticoagulants: The patient has taken no previous anticoagulant or antiplatelet agents. After reviewing the risks and benefits, the patient was deemed in satisfactory condition to undergo the procedure. The anesthesia plan was to use monitored anesthesia care (MAC). Immediately prior to administration of medications, the patient was re-assessed for adequacy to receive sedatives. The heart rate, respiratory rate, oxygen saturations, blood pressure, adequacy of pulmonary ventilation, and response to care were monitored throughout the procedure. The physical status of the patient was re-assessed after the procedure. After obtaining informed consent, the endoscope was passed under direct vision. Throughout the procedure, the patient's blood pressure, pulse, and oxygen saturations were monitored continuously. The Endoscope was introduced through the mouth, and advanced to the second part of duodenum. The upper GI endoscopy was accomplished without difficulty. The patient tolerated the procedure well. Scope In: 2:13:01 PM Scope Out: 2:34:57 PM Total Procedure Duration Time 0 hours 21 minutes 56 seconds Findings: LA Grade B (one or more mucosal breaks greater than 5 mm, not extending between the tops of two mucosal folds) esophagitis with no bleeding was found 35 to 37 cm from the incisors. One oozing cratered gastric ulcer with a visible vessel was found on the greater curvature of the stomach. The lesion was 6 mm in largest dimension. Coagulation for hemostasis using heater probe was successful. Estimated blood loss was minimal. Suspect gastroparesis due to absence of peristalsis, patient symptoms and retained gastric contents. The patient was placed in the supine position for PEG placement. The stomach was insufflated to appose gastric and abdominal farmer. A site was located in the cardia with excellent transillumination for placement. The abdominal wall was marked and prepped in a sterile manner. The area was anesthetized with 1 mL of 0.5% lidocaine. The trocar needle was introduced through the abdominal wall and into the stomach under direct endoscopic view. A snare was introduced through the endoscope and opened in the gastric lumen. The guide wire was passed through the trocar and into the open snare. The snare was closed around the guide wire. The endoscope and snare were removed, pulling the wire out through the mouth. A skin incision was made at the site of needle insertion. The endoscopically removable 20 Fr Bard gastrostomy tube was lubricated. The G-tube was tied to the guide wire and pulled through the mouth and into the stomach. The trocar needle was removed, and the gastrostomy tube was pulled out from the stomach through the skin. The external bumper was attached to the gastrostomy tube, and the tube was cut to remove the guide wire. The final position of the gastrostomy tube was confirmed by relook endoscopy, and skin marking noted to be 4 cm at the external bumper. The final tension and compression of the abdominal wall by the PEG tube and external bumper were checked and revealed that the bumper was moderately tight and mildly deforming the skin. The feeding tube was capped, and the tube site cleaned and dressed. No gross lesions were noted in the first portion of the duodenum. Impression: - LA Grade B erosive esophagitis. - Oozing gastric ulcer with a visible vessel. Treated with a heater probe. - Gastroparesis, idiopathic etiology. - No gross lesions in the first portion of the duodenum. - An endoscopically removable PEG placement was successfully completed. - No specimens collected. Recommendation: - Return patient to [facility] for ongoing care. - Resume previous diet today. - Use metoclopramide 5 mg PO QID; 30 min AC and HS. - Sulcal fate liquid 1 g via PEG 3 times a day for 4 weeks - Pantoprazole 40 mg via PEG twice a day - Continue present medications. - The patient has taken no previous anticoagulant or antiplatelet agents. - No aspirin, ibuprofen, naproxen, or other non-steroidal anti-inflammatory drugs for 8 days. Procedure Code(s): --- Professional --- 00340, 59, Esophagogastroduodenoscopy, flexible, transoral; with control of bleeding, any method 79551, 51, Esophagogastroduodenoscopy, flexible, transoral; with directed placement of percutaneous gastrostomy tube CPT copyright 2017 [employer]. All rights reserved. The codes documented in this report are preliminary and upon purchasing director review may be revised to meet current compliance requirements. Damián Deleon DO 11/01/2022 2:47:39 PM This report has been signed electronically. Number of Addenda: 0 Note Initiated On: 11/01/2022 2:02 PM
--- NOTE | 2022-11-01 14:48 | OP.CCLET_ITS ---
11/01/2022 Severo Virk Re : Upper GI endoscopy procedure for Antonio Ryder Todd This procedure was performed on Tuesday, November 01, 2022. My impressions and recommendations are as follows: Impressions : - LA Grade B erosive esophagitis. - Oozing gastric ulcer with a visible vessel. Treated with a heater probe. - Gastroparesis, idiopathic etiology. - No gross lesions in the first portion of the duodenum. - An endoscopically removable PEG placement was successfully completed. - No specimens collected. Recommendations : - Return patient to [facility] for ongoing care. - Resume previous diet today. - Use metoclopramide 5 mg PO QID; 30 min AC and HS. - Sulcal fate liquid 1 g via PEG 3 times a day for 4 weeks - Pantoprazole 40 mg via PEG twice a day - Continue present medications. - The patient has taken no previous anticoagulant or antiplatelet agents. - No aspirin, ibuprofen, naproxen, or other non-steroidal anti-inflammatory drugs for 8 days. My findings are described in the full procedure note, which is enclosed. If I can be of further assistance, please feel free to contact me at . Sincerely, Damián Deleon, 11/01/2022 2:47:39 PM This report has been signed electronically.
[2022-11-01 16:50] LABS: Bedside Glucose 230 mg/dL (74-106)
[2022-11-01] MEDS: Metoclopramide 5 MG TABLET GT (22:47)
[2022-11-01] MEDS: Sucralfate 1 GM Tablet GT (22:47)
[2022-11-02] VITALS (12 sets, daily range): BP systolic 130–170; BP diastolic 73–107; PULSE 89–104; RESP 16–18; TEMP 36.4–37.3; O2SAT 93–97
[2022-11-02] MEDS: Insulin Lispro 100 UNIT/ML INSULN.PEN SC ×4 (00:11→17:25)
[2022-11-02] MEDS: Metoprolol Tartrate 5 MG/5 ML Vial IV ×4 (00:15→17:28)
[2022-11-02 01:11] LABS: Bedside Glucose 315 mg/dL (74-106)
[2022-11-02] MEDS: 0.9% Normal Saline 1,000 ML 40 ML IV (02:21)
[2022-11-02 05:46] LABS: Absolute Lymphocyte Count 1.16 X10^3/uL (0.83-4.51); Absolute Neutrophil Count 6.4 X10^3/uL (2.0-7.7); Basophil# 0.15 X10^3/uL; Basophil% 1.7 % (0-1); Eosinophils% 3.4 % (0-5); Hemoglobin 7.9 g/dL (13.0-16.5); Lymphocyte # 1.16 X10^3/ul (0.83-4.51); Lymphocyte % 13.3 % (19-41); Mean Corp Hgb Conc 31.6 g/dL (32-36); Mean Corpuscular Hgb 30.5 pg (27.0-32.0); Mean Corpuscular Volume 96.5 fL (80-94); Mean Platelet Vol. 10.3 fl (6.2-12.0); Monocyte# 0.73 X10^3/uL; Monocyte% 8.4 % (0-10); NRBC Flagged by Analyzer 0 % (0-5); Neutrophil # 6.37 X10^3/uL (2.7-7.7); Platelet Count 438 K/mm3 (150-450); RBC Distribution Width CV 12.3 % (11.6-14.6); RBC Distribution Width SD 43.5 fl (35.1-43.9); Red Blood Count 2.59 M/mm3 (4.6-6.2); White Blood Count 8.7 K/mm3 (4.4-11.0)
[2022-11-02 06:14] LABS: Anion Gap 21 (5-15); BUN 62 mg/dL (7-18); BUN/Creat Ratio 7.7 RATIO (10-20); Calcium,Total 8.5 mg/dL (8.5-10.1); Chloride 100 mmol/L (98-107); Creatinine, Serum 8.05 mg/dL (0.70-1.30); EST Glomerular Filtration Rate 7 mL/min (>60); Est Glom Filt Rate - Afr Amer 9 mL/min (>60); Estimated Creatinine Clearance 9.22 ml/min; Glucose 315 mg/dL (74-106); Potassium 4.3 mmol/L (3.5-5.1); Sodium Level 139 mmol/L (136-145)
[2022-11-02 06:15] LABS: Bedside Glucose 315 mg/dL (74-106)
[2022-11-02] MEDS: Metoclopramide 5 MG TABLET GT ×2 (06:50→21:40)
[2022-11-02] MEDS: Sucralfate 1 GM Tablet GT ×4 (06:50→21:39)
--- NOTE | 2022-11-02 09:49 | CASEMGMT ---
SW sent updates to [facility]. HUSSEIN also put in order for PT/OT as patient will need pre-cert to return to SNF. Plan: d/c back to [facility] under skilled level of care when medically ready. June Piña MSW LEFTY
[2022-11-02] MEDS: Menthol/Lanolin/Calamine/Znox 113 GM Tube 1 APPLIC TOPICAL (12:38)
--- NOTE | 2022-11-02 12:39 | DIALYSIS ---
Hemodialysis x 3.5hrs today. Ran pt even no fluid removed. Pt stable and alert Hypostensive during tx when trying to pull fluid off. Report to ISABEL Cline
[2022-11-02 13:20] LABS: Bedside Glucose 192 mg/dL (74-106)
--- NOTE | 2022-11-02 14:28 | PCM.PN.REN ---
Subjective Subjective No new events Objective Data Objective Data Vital Signs: Vital Signs Temp Pulse Resp BP Pulse Ox O2 Del Method O2 Flow Rate 97.9 F 89 16 130/107 H 93 Room Air 2 11/02/22 12:34 11/02/22 12:38 11/02/22 12:34 11/02/22 12:38 11/02/22 12:34 11/02/22 12:34 11/02/22 04:45 Oxygen Flow Rate (L/min) 2 Oxygen Delivery Method Room Air Weight: 65.2 kg Body Mass Index (BMI) 21.7 Intake & Output: Intake and Output for Last 24 Hours 10/31/22 11/01/22 11/02/22 23:59 23:59 23:59 Intake Total 1702 / 1702 1258.67 / 1258.67 1154.67 / 1154.67 Output Total 0 / 0 750 / 950 1100 / 1100 Balance 1702 / 1702 508.67 / 308.67 54.67 / 54.67 Medical Nutrition Assessment Dietitian: Malnutrition Criteria Met Start: 10/31/22 11:18 Freq: Status: Active Protocol: Document 11/02/22 09:55 SLA (Rec: 11/02/22 09:55 SLA [id number]) Nutrition Malnutrition Evidence of Malnutrition Exists Yes Malnutrition (severe): Acute Illness/Injury Evidenced By Suboptimal Energy Intake ( Severe),Weight Loss (Severe) Clinical Problem Acute Disease or Injury Related Malnutrition Etiology severe, acute malnutrition related to inadequate energy intake d/t nausea, PEG displacement Signs/Symptoms as evidenced by 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 Rec start at 30mL/ hour and increase by 15mL/hour every 8-12 hours as tolerated until goal rate is achieved. Rec continue reglan given suspected gastroparesis. STADIUM ATTENDANT for ongoing ST. Daily wts. Lab / Micro Data Result Diagrams: 11/02/22 04:58 11/02/22 04:58 Labs: Laboratory Results - last 24 hr 11/01/22 16:30: POC Glucose 230 H 11/02/22 00:10: POC Glucose 315 H 11/02/22 04:58: WBC 8.7, RBC 2.59 L, Hgb 7.9 L, Hct 25.0 L, MCV 96.5 H, MCH 30.5, MCHC 31.6 L, RDW Std Deviation 43.5, RDW Coeff of Jenifer 12.3, Plt Count 438, MPV 10.3, Immature Gran % (Auto) 0.200, Neut % (Auto) 73.0 H, Lymph % (Auto) 13.3 L, [place] % (Auto) 8.4, Eos % (Auto) 3.4, Baso % (Auto) 1.7 H, Absolute Neuts (auto) 6.4, Absolute Lymphs (auto) 1.16, Nucleated RBC % 0 11/02/22 04:58: Sodium 139, Potassium 4.3, Chloride 100, Carbon Dioxide 18.0 L, Anion Gap 21 H, BUN 62 H, Creatinine 8.05 H*, Estim Creat Clear Calc 9.22, Est GFR (MDRD) Af Amer 9 L, Est GFR (MDRD) Non-Af 7 L, BUN/Creatinine Ratio 7.7 L, Glucose 315 H, Calcium 8.5 11/02/22 05:29: POC Glucose 315 H 11/02/22 12:53: POC Glucose 192 H Physical Exam Narrative General: Alert and oriented x3.? No apparent distress. HEENT: Normocephalic, atraumatic.? Mucous membrane moist.? PERRLA.? The patient is deaf. Neck: Supple, no JVD. Heart: Normal S1, S2.? No rubs, murmurs or gallops. Lungs: Clear to auscultation bilaterally. Abdomen: Nondistended, normal bowel sound, soft, epigastric tenderness on palpation without voluntary guarding or rebound. Extremities: No clubbing, cyanosis, or edema. Assessment & Plan Assessment/Plan (1) TREVOR (acute kidney injury): (2) CKD (chronic kidney disease): (3) HTN (hypertension): (4) Decreased left ventricular systolic function: (5) Macrocytic anemia: PLAN: Plan Impression/Plan: The patient is a 57-year-old man with past history of type 1 diabetes mellitus, hypertension, CAD, congenital deafness, prior stroke, and chronic kidney disease who was recently admitted to this hospital between 09/16/2022 until 10/19/2022 for DKA, hypertensive emergency, NSTEMI, acute hypoxic respiratory failure requiring temporary mechanical ventilator, and acute kidney injury on chronic kidney disease.? The patient has had a progressive loss of renal function and was started on dialysis on 09/22/2022.? The patient was readmitted to the hospital between 10/21/2022 until 10/27/2022 with upper GI bleed. He returns again to the hospital on 10/30/2022 with dislodgment of his PEG tube.? Nephrology is following for dialysis dependent TREVOR on CKD. Acute kidney injury on chronic kidney disease, unspecified stage. The patient was started on dialysis on 09/22/2022 because of refractory acute hypoxic respiratory failure due to volume overload, acidosis and severe azotemia. Baseline renal function is unclear although there is a notation that serum creatinine was 1.60 mg/dL in 2020.? The last available serum creatinine in [facility] was from 04/22/2014 at 1.3 mg/dL.? Last available outpatient serum creatinine prior to the hospital admission in September 2022 was from February 2021 at 1.6 mg/dL. Suspect the patient has underlying diabetic kidney disease.? He is proteinuric in nephrotic range and has had longstanding, poorly controlled diabetes with retinopathy. It is possible that he has progressed to ESRD secondary to progression of progressive diabetic kidney disease in the setting of poorly controlled diabetes. However, we were never able to biopsy the kidney for definitive diagnosis and prognosis because of the patient's inability to tolerate the procedure. So far, there is no evidence of renal recovery.? The patient remains dialysis dependent with oliguria and increasing azotemia between dialysis. The plan is to pursue kidney biopsy if there is no recovery of renal function after 1-2 months on dialysis.? This can be done as an outpatient. For now, we will continue dialysis on [facility] schedule.? He dialyzes at [facility] as outpatient on 10/30/2022. Dialysis today Hypertension. Blood pressure is better controlled CAD with heart failure with reduced ejection fraction?presumably from systolic dysfunction related to ischemia. The patient appears to be compensated.
--- NOTE | 2022-11-02 15:20 | PCM.PN.HOSP ---
Subjective Subjective Follow-up for frequent admission with different reasons, this time after removal of PEG tube and hematemesis. Objective Data Objective Data Vital Signs: Vital Signs Temp Pulse Resp BP Pulse Ox O2 Del Method O2 Flow Rate 97.9 F 89 16 130/107 H 93 Room Air 2 11/02/22 12:34 11/02/22 12:38 11/02/22 12:34 11/02/22 12:38 11/02/22 12:34 11/02/22 12:34 11/02/22 04:45 Oxygen Flow Rate (L/min) 2 Oxygen Delivery Method Room Air Weight: 143 lb 11.862 oz Body Mass Index (BMI) 21.7 Intake & Output: Intake and Output for Last 24 Hours 10/31/22 11/01/22 11/02/22 23:59 23:59 23:59 Intake Total 1702 / 1702 1258.67 / 1258.67 1154.67 / 1154.67 Output Total 0 / 0 750 / 950 1100 / 1100 Balance 1702 / 1702 508.67 / 308.67 54.67 / 54.67 Medical Nutrition Assessment Dietitian: Malnutrition Criteria Met Start: 10/31/22 11:18 Freq: Status: Active Protocol: Document 11/02/22 09:55 AZAR (Rec: 11/02/22 09:55 SLA [id number]) Nutrition Malnutrition Evidence of Malnutrition Exists Yes Malnutrition (severe): Acute Illness/Injury Evidenced By Suboptimal Energy Intake ( Severe),Weight Loss (Severe) Clinical Problem Acute Disease or Injury Related Malnutrition Etiology severe, acute malnutrition related to inadequate energy intake d/t nausea, PEG displacement Signs/Symptoms as evidenced by 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 Rec start at 30mL/ hour and increase by 15mL/hour every 8-12 hours as tolerated until goal rate is achieved. Rec continue reglan given suspected gastroparesis. 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 Daily wts. Lab / Micro Data Result Diagrams: 11/02/22 04:58 11/02/22 04:58 Labs: Laboratory Results - last 24 hr 11/01/22 16:30: POC Glucose 230 H 11/02/22 00:10: POC Glucose 315 H 11/02/22 04:58: WBC 8.7, RBC 2.59 L, Hgb 7.9 L, Hct 25.0 L, MCV 96.5 H, MCH 30.5, MCHC 31.6 L, RDW Std Deviation 43.5, RDW Coeff of Jenifer 12.3, Plt Count 438, MPV 10.3, Immature Gran % (Auto) 0.200, Neut % (Auto) 73.0 H, Lymph % (Auto) 13.3 L, [place] % (Auto) 8.4, Eos % (Auto) 3.4, Baso % (Auto) 1.7 H, Absolute Neuts (auto) 6.4, Absolute Lymphs (auto) 1.16, Nucleated RBC % 0 11/02/22 04:58: Sodium 139, Potassium 4.3, Chloride 100, Carbon Dioxide 18.0 L, Anion Gap 21 H, BUN 62 H, Creatinine 8.05 H*, Estim Creat Clear Calc 9.22, Est GFR (MDRD) Af Amer 9 L, Est GFR (MDRD) Non-Af 7 L, BUN/Creatinine Ratio 7.7 L, Glucose 315 H, Calcium 8.5 11/02/22 05:29: POC Glucose 315 H 11/02/22 12:53: POC Glucose 192 H Physical Exam Narrative Physical exam General: Alert, looks weak, recurrent admission, fatigue orientation cannot be ascertained as patient is nonverbal, congenital deafness. HEENT: Atraumatic, PERRLA, EOMI, Normocephalic Oral: Oral mucosa moist. No Gingival or Mucosal Lesions/ Ulcerations Neck: Supple, No JVD, Negative Carotid Bruits Lungs: Air entry diminished in bilateral lung bases. No crepitation/rhonchi Cardiovascular: Regular rate, Regular Rhythm, Normal S1, Normal S2, No murmurs Abdomen: Fresh blood clot around the PEG tube. Bowel Sounds sluggish, nontender, nondistended : On hemodialysis. subclavian permacath. No renal angle tenderness. No suprapubic tenderness. Extremities: No edema, Capillary Refill Less than 3 Seconds Skin: No rashes, No breakdown Musculoskeletal: No Tenderness to Palpation of Joints or Extremities Neurological: DTR 2+/4 detailed neuro exam unobtainable. Psych/Mental Status: Flat affect Assessment & Plan Assessment/Plan (1) ABLA (acute blood loss anemia): (2) PEG tube malfunction: (3) Aspiration pneumonia: PLAN: Plan 1. Acute blood loss anemia secondary to pulling out a PEG tube ? GI consulted for an PEG tube replacement. PEG tube replaced but has blood clots under dressing. Transfuse PRBC with hemoglobin threshold of 8 g%. ? Continue with PPI 2. Aspiration pneumonia/dysphagia ? Chest x-ray shows right lower lobe infiltrate with history of vomiting, dysphagia and aspiration raises suspicion of aspiration pneumonia, continue with Unasyn Probable gastroparesis 3. DM1/acute kidney injury on CKD unspecified stage with dialysis M, W, F ? Accu-Cheks ACH ? Sliding scale insulin ? Home Care Physical Therapist consulted 4. CAD/HTN/HLD ? On his previous admission between 09/16/2022 to for multiple reasons non-STEMI, DKA, acute kidney injury on CKD. At that time he had a cardiac cath which demonstrated multivessel disease and medical management was recommended at that time. continue with his aspirin, Plavix once okay with GI His second admission from October 21 to October 27 was for upper GI bleed. ? Continue with Lipitor and Coreg as well as Norvasc once his PEG tube was reinserted ? Hold Lasix but continue with his hydralazine and his isosorbide dinitrate, once his PEG tube is reinserted 5. Severe protein calorie malnutrition ? Consult nutrition Congenital deafness and congenital blindness as well as an inability to read does make communication very challenging and also complicates his care. DVT: SCDs Charges/Coding Visit Charges Inpatient E&M: 00751 Subs Hosp L2
--- NOTE | 2022-11-02 15:37 | CASEMGMT ---
SW [facility] [place] and asked that pre-cert be started. June Piña VASCULAR ULTRASOUND TECHNOLOGIST LEFT[place]
[2022-11-02] MEDS: hydrALAZINE 20 MG/ML Vial 5 MG IV (15:46)
[2022-11-02 18:05] LABS: Bedside Glucose 254 mg/dL (74-106)
[2022-11-02] MEDS: Vital AF 1.2 Cal Liquid 1,000 ML 30 ML GT (20:31)
[2022-11-02] MEDS: hydrALAZINE 50 MG Tablet GT (21:38)
[2022-11-02] MEDS: Dorzolamide HCL/Timolol 10 ml Bottle 1 DRP OPHTHALMIC (21:39)
[2022-11-02] MEDS: Carvedilol 25 MG Tablet GT (21:39)
[2022-11-02] MEDS: Atorvastatin Calcium 40 MG Tablet GT (21:40)
[2022-11-02] MEDS: Isosorbide DN 10 MG Tablet GT (21:40)
[2022-11-02] MEDS: Ondansetron 4 MG/2 ML Vial IV (23:05)
[2022-11-03] VITALS (51 sets, daily range): BP systolic 64–145; BP diastolic 35–67; PULSE 60–116; RESP 12–33; TEMP 34.7–37.8; O2SAT 96–100
--- NOTE | 2022-11-03 01:09 | RAD_ITS ---
EXAM: XR ABDOMEN, 1 VIEW CLINICAL INDICATION: Evaluate Peg tube TECHNIQUE: Frontal supine view of the abdomen/pelvis. This report was created using [employer] report generation technology. COMPARISON: None. FINDINGS: LOWER THORAX: No acute pathology. GASTROINTESTINAL TRACT: Unremarkable. Non-obstructive. No bowel or stomach distention. ORGANS: Unremarkable as visualized. No organomegaly. No abnormal calcifications. BONES/JOINTS: No acute pathology. SOFT TISSUES: No acute pathology. TUBES, LINES AND DEVICES: PEG tube overlies the stomach. Contrast is seen within the stomach without extravasation. RAD/Abdomen Single View (Portable) IMPRESSION: PEG tube within the stomach without evidence of leak. Electronically Signed: Jorge L Galo MD at 1:41 EST ,
[2022-11-03] MEDS: proCHLORPERazine 10 MG/2 ML Vial 5 MG IV (01:12)
--- NOTE | 2022-11-03 02:07 | RAD_ITS ---
EXAM: XR CHEST, 1 VIEW CLINICAL INDICATION: SOB TECHNIQUE: Frontal view of the chest. This report was created using [employer] report generation technology. COMPARISON: 10/30/2022. FINDINGS: LUNGS AND PLEURAL SPACES: Unremarkable. No consolidation or edema. No pneumothorax. No effusion. HEART: Unremarkable. Cardiac silhouette not enlarged. MEDIASTINUM: Central airways and mediastinal contour are unremarkable. BONES/JOINTS: Unremarkable. SOFT TISSUES: Unremarkable. TUBES, LINES AND DEVICES: No change dialysis catheter. RAD/Chest 1 View (Portable) IMPRESSION: 1. No acute cardiopulmonary abnormality. 2. No change dialysis catheter. Electronically Signed: Jorge L Galo MD at 2:30 EST ,
--- NOTE | 2022-11-03 02:20 | NURSING ---
Patient refused blood sugar check, vomiting at this time
[2022-11-03] MEDS: Albuterol 2.5 MG/3 ML VIAL.NEB. INHALATION (03:32)
[2022-11-03] MEDS: Furosemide 40 MG/4 ML Vial IV (04:13)
[2022-11-03] MEDS: Morphine 2 MG/ML Syringe IV (05:02)
[2022-11-03] MEDS: Ondansetron 4 MG/2 ML Vial 8 MG IV (05:02)
[2022-11-03] MEDS: Vancomycin IV 1,000 MG/200 ML BAG 200 MG IV (05:34)
--- NOTE | 2022-11-03 06:37 | NURSING ---
Patient had multiple episodes of vomiting throughout the night, Zofran and Compazine given. Patient became short of breath, crackles in the posterior lower lobes, breathing at 32 respirations a minute, and becoming tachycardic at 105. Dr. David Caro notified. Ordered to stop tube feedings, give Compazine, and a KUB was ordered. KUB was normal. Patient still vomiting and having shortness of breath. Chest Xray ordered, was normal. Sepsis alert filled out and patient triggered the sepsis alert. Dr. David Caro notified and replied noted. This nurse then called respiratory to come evaluate patient and possibly give a breathing treatment due to patients deterioration and increased shortness of breath. Respiratory, Maria, came to see the patient and give patient a breathing treatment. Maria was concerned about patients deterioration and called Dr. David Caro. The doctor then ordered Lasix. This nurse then paged the doctor to ask if Dr. David Caro could come see and evaluate the patient due to the deteriorating condition. Dr. David Caro gave verbal orders, that were entered by this nurse. No medications given this morning due to stopped feeds and patient refused morning blood sugar.
[2022-11-03 07:00] LABS: Absolute Lymphocyte Count 0.87 X10^3/uL (0.83-4.51); Absolute Neutrophil Count 12.2 X10^3/uL (2.0-7.7); Basophil% 0.7 % (0-1); Eosinophil# 0.02 X10^3/uL; Eosinophils% 0.1 % (0-5); Hematocrit 26.3 % (40-54); Hemoglobin 7.3 g/dL (13.0-16.5); Lymphocyte # 0.87 X10^3/ul (0.83-4.51); Lymphocyte % 6.4 % (19-41); Mean Corp Hgb Conc 27.8 g/dL (32-36); Mean Corpuscular Hgb 29.6 pg (27.0-32.0); Mean Corpuscular Volume 106.5 fL (80-94); Mean Platelet Vol. 10.6 fl (6.2-12.0); Monocyte# 0.36 X10^3/uL; Monocyte% 2.6 % (0-10); NRBC Flagged by Analyzer 0 % (0-5); Neutrophil # 12.21 X10^3/uL (2.7-7.7); Neutrophil % 89.5 % (47-70); Platelet Count 589 K/mm3 (150-450); RBC Distribution Width CV 12.7 % (11.6-14.6); RBC Distribution Width SD 49.2 fl (35.1-43.9); Red Blood Count 2.47 M/mm3 (4.6-6.2); White Blood Count 13.7 K/mm3 (4.4-11.0)
--- NOTE | 2022-11-03 07:10 | CON.PCM.CC_ITS ---
Assessment & Plan Assessment/Plan (1) Acute respiratory failure: PLAN: Plan RECOMMENDATIONS: 1. Continue assist-control mode mechanical ventilation. Wean FiO2 and PEEP for saturations greater than 90%. 2. Obtain and send sputum for culture. 3. Obtain chest x-ray and arterial blood gas. 4. Send serum acetone level. 5. Continue empiric antimicrobials. 6. Initiate Levophed to maintain a mean arterial pressure at or above 65 mmHg. 7. Start insulin infusion. 8. Start bicarbonate containing supplemental fluids. IMPRESSIONS: 1. Acute hypoxemic respiratory failure I do suspect that the patient's respiratory failure was likely multifactorial in etiology. The patient developed nausea and intractable emesis overnight with subsequent aspiration of gastric contents. In addition, the patient appears to have developed DKA yesterday, which led to the development of a significant metabolic acidosis. Unfortunately, the patient unable to compensate from a respiratory perspective for his underlying metabolic derangements. The patient was ultimately transferred to the intensive care unit and intubated for airway protection. Plan to continue empiric broad-spectrum antimicrobials, pending infectious work-up. 2. Profound metabolic acidosis in the setting of DKA The patient developed an elevated anion gap metabolic acidosis yesterday, which worsened precipitously over the course of the night. The patient is now hyperkalemic with a bicarbonate of 4.0, glucose of 528 and large serum acetone level. He is significantly acidotic with a pH of 6.8. Accordingly, the patient is going to be fluid resuscitated with bicarbonate containing fluids. Plan to monitor serial BMP. Orders for insulin infusion have been placed. 3. Multifactorial shock Most likely a combination of hypovolemia in the setting of DKA combined with septic shock related to aspiration pneumonia. The patient is not going to receive full sepsis fluid resuscitation, given his underlying ischemic cardiomyopathy and depressed ejection fraction. Levophed will be continued to maintain a mean arterial pressure at or above 65 mmHg. 4. Blood loss anemia secondary to bleeding gastric ulcer status post treatment Continue to monitor H&H daily. Transfuse if hemoglobin drops below 7 g/dL. Continue PPI therapy as ordered. 5. Acute on chronic kidney disease Concern for progression to end-stage renal disease. Nephrology is following to assist with hemodialysis needs. 6. History of ischemic cardiomyopathy/diabetes mellitu s/hypertension/hyperlipidemia Complicates care, management, recovery and prognosis. Continue to hold home antihypertensives. The patient will ultimately require surgical revascularization of his underlying coronary disease. TIME: 82 minutes of critical care time, inclusive of procedures, was spent addressing the patient's acute hypoxemic respiratory failure, diabetic ketoacidosis, multifactorial shock, blood loss anemia, review of all data and collaboration with the care team. HPI Consult Data Date of Consult: 11/04/22 HPI Narrative Reason for Consultation: Respiratory failure HPI Narrative: The patient is a 57-year-old male, with a history as outlined below, who presented to the emergency department via EMS on October 30 with nausea, vomiting and hematemesis. In addition, the patient apparently fell at his nursing facility and dislodged his PEG tube. The patient was just admitted to the hospital October 21 through with gastrointestinal bleeding which required EGD on October 22. The patient was identified as having a gastric ulcer which was treated with a heater probe. The patient's medical history is also significant for congenital blindness and deafness, ischemic cardiomyopathy and chronic kidney disease. The patient was seen in consultation by gastroenterology on October 31 and underwent a repeat upper endoscopy on November 01, which revealed erosive es ophagitis along with an oozing gastric ulcer which was treated with a heater probe. The patient's PEG tube was also replaced. The patient is also being followed by nephrology to address his underlying dialysis needs. Overnight, according to nursing report, the patient has had intractable nausea a nd vomiting. Over the course of the evening, the patient became less responsive. He was apparently evaluated by the hospitalist early this morning and placed on BiPAP therapy. However, the decision was made to place him on a nasal mask over concerns for ongoing emesis. On my evaluation of the patient, his tidal volumes were significantly suboptimal. The patient was tachypneic and obtunded. Therefore, he was transferred emergently to the intensive care unit, where he was ultimately intubated. Labs from this morning demonstrated a hemoglobin of 7.3 g/dL. ABG prior to intubation demonstrated a pH of 7.1 with a PCO2 of 10 and PO2 of 155. Intubation Indication: Respiratory failure Consent was obtained from: Procedure done emergently The patient was placed in the appropriate sniffing position. Preoxygenated sedation via [id number] was provided for a minimum of 3 minutes. The patient had continuous cardiac as well as pulse oximetry monitoring during the procedure. Procedure sedation was provided by the administration of 2 mg of Versed and 20 mg of etomidate. Direct laryngoscopy was then performed using a number 4 MAC blade, which revealed a grade 1 view. A 7.5 mm endotracheal tube was visualized advancing between the cords to the level of 23 cm at the lip. The stylette was then removed and discarded. Tube placement was confirmed by fogging in the tube along with equal and bilateral breath sounds. Colorimetric change was visualized on the CO2 meter. The cuff was then inflated and the tube secured using a commercially available device. A good pulse oximetry waveform was seen on the monitor throughout the procedure. A portable chest x-ray has been ordered to confirm appropriate placement. The patient tolerated the procedure well. Post intubation, a disposable bronchoscope was introduced through the endotracheal tube, confirming the presence of bilateral gastric secretions. Central Venous Catheter Indication: Hemodynamic instability, requiring vasopressor support Consent was obtained from: Matthew Lara A time-out was completed verifying correct patient, procedure, site, positioning, and special equipment if applicable. The patient was placed in a dependent position appropriate for central line placement based on the vein to be cannulated. The patient's right IJ was prepped and draped in a sterile fashion. A triple-lumen catheter was introduced into the right internal jugular vein using the Seldinger technique and under ultrasound guidance. The catheter was threaded smoothly over the guidewire and appropriate blood return was obtained. Each lumen of the catheter was evacuated of air and flushed with sterile saline. The catheter was then sutured in place to the skin and a sterile dressing applied. Chest x-ray to confirm appropriate positioning is pending. ULTRASOUND GUIDANCE STATEMENT (Vascular Access): I performed ultrasound image acquisition and interpretation for needle placement during the procedure. The vessel was identified and found to be free of thrombosis by compression technique. A safe point of entry was marked at the skin in an angle for axis was determined. The needle was guided by obtaining free-flowing fluid and by real-time visualization. [facility] Medical History (Updated 11/04/22 @ 00:04 by Background Daemon) Acute renal failure Acute respiratory failure with hypoxia Anemia CAD (coronary artery disease) CKD (chronic kidney disease) Congenital deafness Deaf Decreased left ventricular systolic function Diabetes HTN (hypertension) Hyperlipidemia Hypertensive emergency Metabolic acidosis Non-ST elevated myocardial infarction (non-STEMI) NSTEMI (non-ST elevated myocardial infarction) On mechanically assisted ventilation Pneumonia Regurgitation of food Stroke Vision problem Vomiting Home Medications dorzolamide-timolol (PF) 2 %-0.5 % eye drops in a dropperette 1 drp ophthalmic (eye) BID eyes 01/04/20 [History Last Taken 10/21/22] latanoprost 0.005 % eye drops 1 drp ophthalmic (eye) DAILY eyes 01/04/20 [History Last Taken 10/21/22] pen needle, diabetic 31 gauge x 5/16 (Comfort EZ Pen [place]) #1,200 ea 01/04/20 [History Last Taken Unknown] blood sugar diagnostic (Accu-Chek Guide test strips) #100 ea 03/07/20 [Rx Last Taken Unknown] amlodipine 5 mg tablet 5 mg feeding tube DAILY BP 09/14/22 [History Last Taken 10/21/22] ondansetron 4 mg disintegrating tablet 4 mg PO Q6H PRN nausea and vomiting #30 tabs 10/19/22 [Rx Last Taken 10/21/22] aspirin 81 mg tablet,delayed release 81 mg feeding tube BREAKFAST blood thinner 10/21/22 [History Last Taken 10/21/22] clopidogrel 75 mg tablet 75 mg feeding tube DAILY blood thinner 10/21/22 [Hi story Last Taken 10/21/22] furosemide 40 mg tablet 40 mg feeding tube SuTuThSa hypertension 10/21/22 [History Last Taken 10/20/22] insulin lispro 100 unit/mL subcutaneous pen (Humalog KwikPen (U-100) Insulin) See Protocol subcut Q6H DM 10/21/22 [History Last Taken 10/21/22] isosorbide dinitrate 10 mg tablet 10 mg feeding tube BID CKD 10/21/22 [History Last Taken 10/21/22] polyethylene glycol 3350 17 gram oral powder packet 17 g PO BID PRN constipation #100 ea 10/27/22 [Rx Last Taken Unknown] atorvastatin 40 mg tablet 40 mg G-tube QHS cholesterol 10/31/22 [History Last Taken Unknown] carvedilol 25 mg tablet 25 mg G-tube BID blood pressure 10/31/22 [History Last Taken Unknown] clindamycin HCl 300 mg capsule (Cleocin HCl) 300 mg PO 4X/DAY aspiration pneumonia 10/31/22 [History Last Taken Unknown] hydralazine 50 mg tablet 50 mg G-tube TID hypertension 10/31/22 [History Last Taken Unknown] insulin glargine-yfgn 100 unit/mL (3 mL) subcutaneous pen 30 unit subcut 0600,1800 DM 10/31/22 [History Last Taken Unknown] lansoprazole 30 mg capsule,delayed release (Prevacid) 30 mg feeding tube BID g erd 10/31/22 [History Last Taken Unknown] levofloxacin 250 mg/10 mL oral solution 250 mg PO DAILY aspiration pneumonia 10/31/22 [History Last Taken Unknown] menthol 0.44 %-zinc oxide 20.6 % topical ointment (Calmoseptine) 1 applic topical BID redness 10/31/22 [History Last Taken Unknown] metoclopramide HCl 10 mg tablet (Reglan) 10 mg PO TID nausea 10/31/22 [History Last Taken Unknown] Allergy/AdvReac Type Severity Reaction Status Date / Time No Known Allergies Allergy Verified 09/15/22 10:39 Family History Mother Diabetes Deaf Surgical History S/P percutaneous endoscopic gastrostomy (PEG) tube placement Social History Smoking Status: Never smoker alcohol intake: never substance use type: does not use what type of physical activity do you participate in: none ROS Review of Systems ROS Unobtainable: due to endotracheal tube and due to mental status Physical Exam Const General Appearance: lethargic, ill appearing, intubated and patient mechanically ventilated HEENT normocephalic and head/scalp atraumatic General Ear: hearing grossly impaired Mouth: endotracheal tube in place Eyes PERRL Neck supple General: trachea midline Chest inspection of chest normal Resp Effort and Inspection: tachypneic Auscultation: rhonchi and diminished lung sounds Cardio regular rate and regular rhythm GI soft to palpation and non-tender Inspection: GI tube present Extremity no clubbing, cyanosis or edema Skin no rashes or lesions noted Medical Records Data Medical Nutrition Assessment Dietitian: Malnutrition Criteria Met Start: 10/31/22 11:18 Freq: Status: Active Protocol: Document 11/02/22 09:55 AZAR (Rec: 11/02/22 09:55 AZAR [id number]) Nutrition Malnutrition Evidence of Malnutrition Exists Yes Malnutrition (severe): Acute Illness/Injury Evidenced By Suboptimal Energy Intake ( Severe),Weight Loss (Severe) Clinical Problem Acute Disease or Injury Related Malnutrition Etiology severe, acute malnutrition related to inadequate energy intake d/t nausea, PEG displacement Signs/Symptoms as evidenced by 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 Rec start at 30mL/ hour and increase by 15mL/hour every 8-12 hours as tolerated until goal rate is achieved. Rec continue reglan given suspected gastroparesis. 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 Daily wts. Lab / Micro Data Result Diagrams: 11/04/22 03:00 11/04/22 03:00 Labs: Laboratory Results - last 24 hr 11/02/22 12:53: POC Glucose 192 H 11/02/22 17:24: POC Glucose 254 H 11/03/22 06:15: WBC 13.7 H, RBC 2.47 L, Hgb 7.3 L, Hct 26.3 L, MCV 106.5 H D, MCH 29.6, MCHC 27.8 L D, RDW Std Deviation 49.2 H, RDW Coeff of Jenifer 12.7, Plt Count 589 H, MPV 10.6, Immature Gran % (Auto) 0.700, Neut % (Auto) 89.5 H, Lymph % (Auto) 6.4 L, [place] % (Auto) 2.6, Eos % (Auto) 0.1, Baso % (Auto) 0.7, Absolute Neuts (auto) 12.2 H, Absolute Lymphs (auto) 0.87, Nucleated RBC % 0 Radiology Impression KUB X-Ray 11/03/22 01:09 IMPRESSION: PEG tube within the stomach without evidence of leak. Electronically Signed: Jorge L Galo MD at 1:41 EST , Chest X-Ray 11/03/22 02:07 IMPRESSION: 1. No acute cardiopulmonary abnormality. 2. No change dialysis catheter. Electronically Signed: Jorge L Galo MD at 2:30 EST , Sepsis Attestation Possible Source of Sepsis: Pulmonary Sepsis Organ Dysfunction Criteria Present: SBP < 90 mmHg or MAP < 65 mmHg and Acute Respiratory Failure (New need for BiPAP/CPAP or MV) Fluid Resuscitation Fluid resuscitation indicated?: Yes Fluid Resuscitation ordered: Lesser volume fluid bolus ordered Reason for lesser fluid bolus:: Heart failure Charges/Coding Procedures Hospitalists Procedures: 98359 Critial Care 1st Hr Multi Select Codes Hospitalists' Procedures Procedures: 03439 Critial Care Addl 30 Min
[2022-11-03 07:27] LABS: Allen Test Positive; Base Excess -27 mmol/L (-2 to +2); Bicarbonate 3.1 mmol/L (22-26); Blood Gas Specimen Type ART; FI02 35; Mode BiLevel; O2 Delivery Device BiPAP; PO2 155 mmHG (75-100); RR 12; SITE L Brach; SO2 99 % (95-99); Total Carbon Dioxide < 5 mmol/L; pCO2 10.4 mmHg (35-45); pH 7.08 (7.35-7.45)
[2022-11-03] MEDS: Midazolam 2 MG/2 ML Syringe IV (07:49)
[2022-11-03] MEDS: Etomidate 20 MG/10 ML Vial IV (07:50)
[2022-11-03] MEDS: Propofol 10MG/Ml 1,000 MG/100 ML Bottle 3.9 MG CONT INF (07:52)
--- NOTE | 2022-11-03 07:56 | RAD_ITS ---
STUDY: X-RAY CHEST REASON FOR EXAM: Male, 57 years old. ETT placement TECHNIQUE: Single AP portable view of the chest. COMPARISON: Comparison is made with prior study dated 11/03/2022. FINDINGS: An endotracheal tube is in situ. The tip is at 4.4 cm proximal to the aleena. A left-sided double-lumen catheter seen with the tip at the junction of the superior vena cava and right atrium. EKG electrodes are seen. Mild degree of persistent increased markings in the right upper lobe. There is no demonstrated pleural abnormality. Normal size heart. Normal mediastinum and aric. Normal visualized pulmonary arteries. Normal visualized aortic arch and descending thoracic aorta. Normal visualized thoracic spine. Normal visualized ribs, clavicles, and shoulders. A PEG tube is seen within the stomach. RAD/Chest 1 View (Portable) IMPRESSION: The tip of the endotracheal tube is at 4.4 cm proximal to the aleena. Mild increased markings in the right upper lobe. This is unchanged. Electronically Signed: Eleazar Farrar MD at 8:28 EST ,
--- NOTE | 2022-11-03 08:00 | NURSING ---
patient transferred from [facility] at 0730 0749 Versed 2 mg IV by Hyun Larson RN 0750 etomidate 20 mg IV given by Hyun Larson RN 0752 #7.5 ETT 24 @ lip, positive color change and bilateral breath sounds present, restraints applied, 0800 CXR in progress, tube placement verified
--- NOTE | 2022-11-03 08:02 | NURSING ---
Called sister Lila to update on patient being transferred to ICU. No answer, left a message.
[2022-11-03 08:10] LABS: Anion Gap 39 (5-15); BUN 45 mg/dL (7-18); BUN/Creat Ratio 10.1 RATIO (10-20); Calcium,Total 8.5 mg/dL (8.5-10.1); Chloride 93 mmol/L (98-107); Creatinine, Serum 4.45 mg/dL (0.70-1.30); EST Glomerular Filtration Rate 15 mL/min (>60); Est Glom Filt Rate - Afr Amer 18 mL/min (>60); Estimated Creatinine Clearance 16.64 ml/min; Glucose 528 mg/dL (74-106); Potassium 5.2 mmol/L (3.5-5.1); Sodium Level 136 mmol/L (136-145)
[2022-11-03] MEDS: 0.9% Saline Lock 10 ML Syringe IV (08:17)
[2022-11-03 08:39] LABS: CPK Total, Creatine Kinase 130 U/L (39-308); Triglycerides 309 mg/dL
[2022-11-03] MEDS: Menthol/Lanolin/Calamine/Znox 113 GM Tube 1 APPLIC TOPICAL ×2 (08:39→21:16)
[2022-11-03] MEDS: Chlorhexidine 15 ML PO ×2 (08:39→21:17)
[2022-11-03] MEDS: CHLORHEXIDINE GLUC 2% CLOTH 1 EACH TOWELETTE TOPICAL (08:39)
[2022-11-03] MEDS: Dorzolamide HCL/Timolol 10 ml Bottle 1 DRP OPHTHALMIC ×2 (08:50→21:27)
[2022-11-03] MEDS: Latanoprost 0.005% 1 Bottle 1 DRP OPHTHALMIC (08:51)
[2022-11-03] MEDS: Metoclopramide 5 MG TABLET GT ×2 (08:52→21:28)
[2022-11-03] MEDS: Clopidogrel Bisulfate 75 MG Tablet GT (08:52)
--- NOTE | 2022-11-03 09:14 | PCM.PN.HOSP ---
Subjective Subjective Follow-up for acute hypoxic respiratory failure and DKA bedside other multiple acute issues Overnight events were noticed. Patient started vomiting overnight with aspiration of gastric contents. Patient also has metabolic acidosis with large acetone, pH 7.08, bicarb 4.0, anion gap 39 suggestive of DKA. Patient is intubated on ventilator in ICU. Objective Data Objective Data Vital Signs: Vital Signs Temp Pulse Resp BP Pulse Ox O2 Del Method O2 Flow Rate 98.9 F 79 25 H 87/46 L 98 Mechanical Ventilator 2 11/03/22 07:11 11/03/22 08:45 11/03/22 08:45 11/03/22 08:45 11/03/22 08:45 11/03/22 08:45 11/02/22 04:45 FiO2 30 11/03/22 08:45 Oxygen Flow Rate (L/min) 2 Oxygen Delivery Method Mechanical Ventilator Weight: 143 lb 4.807 oz Body Mass Index (BMI) 21.7 Intake & Output: Intake and Output for Last 24 Hours 11/01/22 11/02/22 11/03/22 23:59 23:59 23:59 Intake Total 1258.67 / 1258.67 1566.67 / 1566.67 948.57 / 948.57 Output Total 750 / 950 1150 / 1450 300 / 300 Balance 508.67 / 308.67 416.67 / 116.67 648.57 / 648.57 Medical Nutrition Assessment Dietitian: Malnutrition Criteria Met Start: 10/31/22 11:18 Freq: Status: Active Protocol: Document 11/02/22 09:55 AZAR (Rec: 11/02/22 09:55 AZAR [id number]) Nutrition Malnutrition Evidence of Malnutrition Exists Yes Malnutrition (severe): Acute Illness/Injury Evidenced By Suboptimal Energy Intake ( Severe),Weight Loss (Severe) Clinical Problem Acute Disease or Injury Related Malnutrition Etiology severe, acute malnutrition related to inadequate energy intake d/t nausea, PEG displacement Signs/Symptoms as evidenced by 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 Rec start at 30mL/ hour and increase by 15mL/hour every 8-12 hours as tolerated until goal rate is achieved. Rec continue reglan given suspected gastroparesis. 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 Daily wts. Lab / Micro Data Result Diagrams: 11/03/22 06:15 11/03/22 06:15 Labs: Laboratory Results - last 24 hr 11/02/22 12:53: POC Glucose 192 H 11/02/22 17:24: POC Glucose 254 H 11/03/22 06:15: WBC 13.7 H, RBC 2.47 L, Hgb 7.3 L, Hct 26.3 L, MCV 106.5 H D, MCH 29.6, MCHC 27.8 L D, RDW Std Deviation 49.2 H, RDW Coeff of Jenifer 12.7, Plt Count 589 H, MPV 10.6, Immature Gran % (Auto) 0.700, Neut % (Auto) 89.5 H, Lymph % (Auto) 6.4 L, [place] % (Auto) 2.6, Eos % (Auto) 0.1, Baso % (Auto) 0.7, Absolute Neuts (auto) 12.2 H, Absolute Lymphs (auto) 0.87, Nucleated RBC % 0 11/03/22 06:15: Sodium 136, Potassium 5.2 H, Chloride 93 L, Carbon Dioxide 4.0 L*, Anion Gap 39 H, BUN 45 H, Creatinine 4.45 H, Estim Creat Clear Calc 16.64, Est GFR (MDRD) Af Amer 18 L, Est GFR (MDRD) Non-Af 15 L, BUN/Creatinine Ratio 10.1, Glucose 528 H*, Calcium 8.5 11/03/22 06:15: Total Creatine Kinase 130, Triglycerides 309 H 11/03/22 08:36: Acetone Level LARGE H ABG Data ABG results: ABG 11/03/22 07:10 Specimen Type ART Sample Site L Brach pH 7.08 L* Bicarbonate Actual 3.1 L Total CO2 < 5 Base Excess -27 L O2 Saturation 99 O2 % 35 ABG pCO2 10.4 L* ABG pO2 155 H Kev Test Positive Respiration Rate 12 O2 Delivery Device BiPAP Vent Mode BiLevel Crit Call To/Read Back Yes Blood Gas Notified Whom eligio rn Clinical Comments 09/17 Radiography Diagnostic Testing: Radiology Impression KUB X-Ray 11/03/22 01:09 IMPRESSION: PEG tube within the stomach without evidence of leak. Electronically Signed: Jorge L Galo MD at 1:41 EST , Chest X-Ray 11/03/22 02:07 IMPRESSION: 1. No acute cardiopulmonary abnormality. 2. No change dialysis catheter. Electronically Signed: Jorge L Galo MD at 2:30 EST , Chest X-Ray 11/03/22 07:56 IMPRESSION: The tip of the endotracheal tube is at 4.4 cm proximal to the aleena. Mild increased markings in the right upper lobe. This is unchanged. Electronically Signed: Eleazar Farrar MD at 8:28 EST , Physical Exam Narrative Physical exam General: Intubated, lightly sedated. HEENT: Atraumatic, PERRLA, EOMI, Normocephalic Oral: ET and OG tube Neck: Supple, No JVD, Negative Carotid Bruits Lungs: Air entry diminished in bilateral lung bases. On vent support. Cardiovascular: Regular rate, Regular Rhythm, Normal S1, Normal S2, No murmurs Abdomen: PEG tube. Dressing is dry. No overnight bleeding after the morning yesterday : On hemodialysis. subclavian permacath. No renal angle tenderness. No suprapubic tenderness. Extremities: No edema, Capillary Refill Less than 3 Seconds Skin: No rashes, No breakdown Musculoskeletal: No Tenderness to Palpation of Joints or Extremities, moderate muscle atrophy. Neurological: DTR 2+/4 detailed neuro exam unobtainable. Psych/Mental Status: Flat affect Assessment & Plan Assessment/Plan (1) ABLA (acute blood loss anemia): (2) PEG tube malfunction: (3) Aspiration pneumonia: PLAN: Plan Acute hypoxic respiratory failure most likely due to aspiration, multiple etiology: Patient is intubated on ventilator. Environmental Engineering Manager is consulted. Repeat chest x-ray individually reviewed. Lungs feels looks clear. ET tube right midclavicular line. DKA: Labs suggestive of high anion gap metabolic acidosis with pH 7.08. On restricted IV fluid and insulin drip. . Acute blood loss anemia secondary to pulling out a PEG tube ? GI consulted for an PEG tube replacement. PEG tube replaced but has blood clots under dressing. Transfuse PRBC with hemoglobin threshold of 8 g%. ? Continue with PPI 11/03: Hemoglobin dropped to 7.3, MCV 106 point. Platelet count 509,000. Transfuse 1 unit of PRBC. 2. Aspiration pneumonia/dysphagia ? Chest x-ray shows right lower lobe infiltrate with history of vomiting, dysphagia and aspiration raises suspicion of aspiration pneumonia, continue with Unasyn Probable gastroparesis 3. DM1/acute kidney injury on CKD unspecified stage with dialysis M, W, F ? Accu-Cheks ACH ? Sliding scale insulin ? Book Agent consulted 4. CAD/HTN/HLD ? On his previous admission between 09/16/2022 to for multiple reasons non-STEMI, DKA, acute kidney injury on CKD. At that time he had a cardiac cath which demonstrated multivessel disease and medical management was recommended at that time. continue with his aspirin, Plavix once okay with GI His second admission from October 21 to October 27 was for upper GI bleed. ? Continue with Lipitor and Coreg as well as Norvasc once his PEG tube was reinserted ? Hold Lasix but continue with his hydralazine and his isosorbide dinitrate, once his PEG tube is reinserted 5. Severe protein calorie malnutrition ? Consult nutrition Congenital deafness and congenital blindness as well as an inability to read does make communication very challenging and also complicates his care. DVT: SCDs Charges/Coding Visit Charges Inpatient E&M: 26118 Subs Hosp L3
[2022-11-03] MEDS: Sodium Bicarbonate 8.4% 50 ML Syringe 50 MEQ IV ×3 (09:20)
--- NOTE | 2022-11-03 09:39 | CASEMGMT ---
Social Work SW participated in ICU rounds, pt now in ICU and intubated. Pt's benjamin and DEBBIE Contreras present. SW called Lainey at [facility] to update her and sent new clinical information to [facility] via [facility]. HUSSEIN will continue to follow. ROSENDO Hays
[2022-11-03] MEDS: Norepinephrine 8 mg/250 mL 0.9% NS 9.4 MG CONT INF (09:43)
--- NOTE | 2022-11-03 10:10 | PN.RENAL_ITS ---
Subjective Subjective Events noted. Overnight went into respiratory failure, presumably due to aspiration after an episode of vomiting. Currently on DKA. Insulin being started. Low-dose norepinephrine. Objective Data Objective Data Vital Signs: Vital Signs Temp Pulse Resp BP Pulse Ox O2 Del Method O2 Flow Rate 98.9 F 79 25 H 87/46 L 98 Mechanical Ventilator 2 11/03/22 07:11 11/03/22 08:45 11/03/22 08:45 11/03/22 08:45 11/03/22 08:45 11/03/22 08:45 11/02/22 04:45 FiO2 30 11/03/22 08:45 Oxygen Flow Rate (L/min) 2 Oxygen Delivery Method Mechanical Ventilator Weight: 65 kg Body Mass Index (BMI) 21.7 Intake & Output: Intake and Output for Last 24 Hours 11/01/22 11/02/22 11/03/22 23:59 23:59 23:59 Intake Total 1258.67 / 1258.67 1566.67 / 1566.67 1058.57 / 1058.57 Output Total 750 / 950 1150 / 1450 300 / 300 Balance 508.67 / 308.67 416.67 / 116.67 758.57 / 758.57 Medical Nutrition Assessment Dietitian: Malnutrition Criteria Met Start: 10/31/22 11:18 Freq: Status: Active Protocol: Document 11/02/22 09:55 AZAR (Rec: 11/02/22 09:55 AZAR [id number]) Nutrition Malnutrition Evidence of Malnutrition Exists Yes Malnutrition (severe): Acute Illness/Injury Evidenced By Suboptimal Energy Intake ( Severe),Weight Loss (Severe) Clinical Problem Acute Disease or Injury Related Malnutrition Etiology severe, acute malnutrition related to inadequate energy intake d/t nausea, PEG displacement Signs/Symptoms as evidenced by 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 Rec start at 30mL/ hour and increase by 15mL/hour every 8-12 hours as tolerated until goal rate is achieved. Rec continue reglan given suspected gastroparesis. PET CARE WORKER for ongoing ST. Daily wts. Lab / Micro Data Result Diagrams: 11/03/22 06:15 11/03/22 06:15 Labs: Laboratory Results - last 24 hr 11/02/22 12:53: POC Glucose 192 H 11/02/22 17:24: POC Glucose 254 H 11/03/22 06:15: WBC 13.7 H, RBC 2.47 L, Hgb 7.3 L, Hct 26.3 L, MCV 106.5 H D, MCH 29.6, MCHC 27.8 L D, RDW Std Deviation 49.2 H, RDW Coeff of Jenifer 12.7, Plt Count 589 H, MPV 10.6, Immature Gran % (Auto) 0.700, Neut % (Auto) 89.5 H, Lymph % (Auto) 6.4 L, [place] % (Auto) 2.6, Eos % (Auto) 0.1, Baso % (Auto) 0.7, Absolute Neuts (auto) 12.2 H, Absolute Lymphs (auto) 0.87, Nucleated RBC % 0 11/03/22 06:15: Sodium 136, Potassium 5.2 H, Chloride 93 L, Carbon Dioxide 4.0 L*, Anion Gap 39 H, BUN 45 H, Creatinine 4.45 H, Estim Creat Clear Calc 16.64, Est GFR (MDRD) Af Amer 18 L, Est GFR (MDRD) Non-Af 15 L, BUN/Creatinine Ratio 10.1, Glucose 528 H*, Calcium 8.5 11/03/22 06:15: Total Creatine Kinase 130, Triglycerides 309 H 11/03/22 08:36: Acetone Level LARGE H ABG Data ABG results: ABG 11/03/22 07:10 Specimen Type ART Sample Site L Brach pH 7.08 L* Bicarbonate Actual 3.1 L Total CO2 < 5 Base Excess -27 L O2 Saturation 99 O2 % 35 ABG pCO2 10.4 L* ABG pO2 155 H Kev Test Positive Respiration Rate 12 O2 Delivery Device BiPAP Vent Mode BiLevel Crit Call To/Read Back Yes Blood Gas Notified Whom eligio siegel Clinical Comments 09/17 Radiography Diagnostic Testing: Radiology Impression KUB X-Ray 11/03/22 01:09 IMPRESSION: PEG tube within the stomach without evidence of leak. Electronically Signed: Jorge L Galo MD at 1:41 EST , Chest X-Ray 11/03/22 02:07 IMPRESSION: 1. No acute cardiopulmonary abnormality. 2. No change dialysis catheter. Electronically Signed: Jorge L Galo MD at 2:30 EST , Chest X-Ray 11/03/22 07:56 IMPRESSION: The tip of the endotracheal tube is at 4.4 cm proximal to the aleena. Mild increased markings in the right upper lobe. This is unchanged. Electronically Signed: Eleazar Farrar MD at 8:28 EST , Physical Exam Narrative General: Intubated no apparent distress. HEENT: Normocephalic, atraumatic.? Mucous membrane moist.? PERRLA.? The patient is deaf. Neck: Supple, no JVD. Heart: Normal S1, S2.? No rubs, murmurs or gallops. Lungs: Clear to auscultation bilaterally. Abdomen: Nondistended, normal bowel sound, soft, epigastric tenderness on palpation without voluntary guarding or rebound. Extremities: No clubbing, cyanosis, or edema. Assessment & Plan Assessment/Plan (1) TREVOR (acute kidney injury): (2) CKD (chronic kidney disease): (3) HTN (hypertension): (4) Decreased left ventricular systolic function: (5) Macrocytic anemia: PLAN: Plan Impression/Plan: The patient is a 57-year-old man with past history of type 1 diabetes mellitus, hypertension, CAD, congenital deafness, prior stroke, and chronic kidney disease who was recently admitted to this hospital between 09/16/2022 until 10/19/2022 for DKA, hypertensive emergency, NSTEMI, acute hypoxic respiratory failure requiring temporary mechanical ventilator, and acute kidney injury on chronic kidney disease.? The patient has had a progressive loss of renal function and was started on dialysis on 09/22/2022.? The patient was readmitted to the hospital between 10/21/2022 until 10/27/2022 with upper GI bleed. He returns again to the hospital on 10/30/2022 with dislodgment of his PEG tube.? Nephrology is following for dialysis dependent TREVOR on CKD. Acute kidney injury on chronic kidney disease, unspecified stage. The patient was started on dialysis on 09/22/2022 because of refractory acute hypoxic respiratory failure due to volume overload, acidosis and severe azotemia . Baseline renal function is unclear although there is a notation that serum creatinine was 1.60 mg/dL in 2020.? The last available serum creatinine in [facility] was from 04/22/2014 at 1.3 mg/dL.? Last available outpatient serum creatinine prior to the hospital admission in September 2022 was from February 2021 at 1.6 mg/dL. Suspect the patient has underlying diabetic kidney disease.? He is proteinuric in nephrotic range and has had longstanding, poorly controlled diabetes with retinopathy. It is possible that he has progressed to ESRD secondary to progression of progressive diabetic kidney disease in the setting of poorly controlled diabetes. However, we were never able to biopsy the kidney for definitive diagnosis and prognosis because of the patient's inability to tolerate the procedure. So far, there is no evidence of renal recovery.? The patient remains dialysis dependent with oliguria and increasing azotemia between dialysis. The plan is to pursue kidney biopsy if there is no recovery of renal function after 1-2 months on dialysis.? This can be done as an outpatient. Last dialysis was 11/02/2022. Overnight significantly decompensated. Intubated for suspected aspiration pneumonia, currently on low-dose pressors, Levophed at 6 mcg. Bicarbonate 4, diagnosed with DKA. Insulin drip being started. Continue supportive therapy for now. Discussed with stepson/healthcare power of deputy county attorney at bedside. He understands that Mr. Saldivar is very sick.
--- NOTE | 2022-11-03 10:19 | PCM.RX.CS ---
Consult Pharmacy has been consulted to manage selected antiobiotic: Vancomycin Type of Consult: New start Prior Doses of Antibiotics Received/Current Regimen: Medications Discontinued Medications Vancomycin HCl (Vancomycin) 1,000 mg in 200 mls @ 200 mls/hr IV X1 ONE Stop: 11/03/22 05:59 Last Admin: 11/03/22 08:34 Dose: Infused Labs: Sodium 136 mmol/L (136-145) 11/03/22 06:15 Potassium 5.2 mmol/L (3.5-5.1) H 11/03/22 06:15 Chloride 93 mmol/L (98-107) L 11/03/22 06:15 Carbon Dioxide 4.0 mmol/L (21.0-32.0) L* 11/03/22 06:15 Anion Gap 39 (5-15) H 11/03/22 06:15 BUN 45 mg/dL (7-18) H 11/03/22 06:15 Creatinine 4.45 mg/dL (0.70-1.30) H 11/03/22 06:15 Est GFR (MDRD) Af Amer 18 mL/min (>60) L 11/03/22 06:15 Est GFR (MDRD) Non-Af 15 mL/min (>60) L 11/03/22 06:15 BUN/Creatinine Ratio 10.1 RATIO (10-20) 11/03/22 06:15 Glucose 528 mg/dL (74-106) H* 11/03/22 06:15 Weight used for dosin kg Goal Trough: 15-20 mcg/mL Pharmacy Plan for Drug Dosing: Patient was given 1000mg x1 with pending evaluation by renal. Dialysis not scheduled at this time considering patient's condition, recommend to check vancomycin level with labs tomorrow morning and re-dose if needed. Pharmacy Service will continue to monitor and adjust dosing as required. Follow-Up Labs: Trough Vancomycin - Random with labs on 11/04
--- NOTE | 2022-11-03 10:30 | NURSING ---
central line being placed by Dr. Olmstead at this time
--- NOTE | 2022-11-03 10:36 | RAD_ITS ---
STUDY: X-RAY CHEST REASON FOR EXAM: Male, 57 years old. Central line placement TECHNIQUE: Single AP portable view of the chest. COMPARISON: Comparison is made with prior chest radiograph done earlier in the day. FINDINGS: A right-sided jugular venous catheter has been placed. Its tip is at the junction of the superior vena cava and right atrium. The remainder of the examination is unchanged. RAD/Chest 1 View (Portable) IMPRESSION: The tip of the right central venous catheter is at the junction of the superior vena cava and right atrium. The remainder of the examination is unchanged. Electronically Signed: Eleazar Farrar MD at 11:21 EST ,
[2022-11-03] MEDS: Lactated Ringers 1,000 ML 999 ML IV (10:49)
[2022-11-03 11:20] LABS: Allen Test Positive; Base Excess < -30 mmol/L (-2 to +2); Bicarbonate 3.7 mmol/L (22-26); Blood Gas Specimen Type ART; FI02 30; Mode AC; O2 Delivery Device Adult Vent; PEEP 5; PO2 115 mmHG (75-100); RR 12; SITE R Brach; SO2 93 % (95-99); Total Carbon Dioxide < 5 mmol/L; Vt 400; pCO2 21.7 mmHg (35-45); pH 6.84 (7.35-7.45)
[2022-11-03 11:20] LABS: Bedside Glucose > 500 mg/dL (74-106)
[2022-11-03 11:32] LABS: Anion Gap 38 (5-15); BUN 53 mg/dL (7-18); BUN/Creat Ratio 11.3 RATIO (10-20); Calcium,Total 8.2 mg/dL (8.5-10.1); Chloride 93 mmol/L (98-107); Creatinine, Serum 4.71 mg/dL (0.70-1.30); EST Glomerular Filtration Rate 14 mL/min (>60); Est Glom Filt Rate - Afr Amer 17 mL/min (>60); Estimated Creatinine Clearance 15.72 ml/min; Glucose 670 mg/dL (74-106); Potassium 5.5 mmol/L (3.5-5.1); Sodium Level 139 mmol/L (136-145)
--- NOTE | 2022-11-03 12:16 | NURSING ---
core temp finley malfunctioning after cleaning connections and changing cords, rectal temp obtained, 94.4 degrees F, arabella hugger placed.
[2022-11-03] MEDS: Heparin Injection (Vial) 5,000 UNIT/ML VIAL 5000 UNIT SC ×2 (12:24→21:18)
[2022-11-03 12:26] LABS: M R Staph aureus DNA By PCR POSITIVE (Negative); Probe Check PASS
[2022-11-03 12:35] LABS: Bedside Glucose > 500 mg/dL (74-106)
[2022-11-03 13:45] LABS: Bedside Glucose > 500 mg/dL (74-106)
[2022-11-03 15:16] LABS: Anion Gap 31 (5-15); BUN 54 mg/dL (7-18); BUN/Creat Ratio 11.2 RATIO (10-20); Calcium,Total 7.9 mg/dL (8.5-10.1); Chloride 95 mmol/L (98-107); Creatinine, Serum 4.83 mg/dL (0.70-1.30); EST Glomerular Filtration Rate 13 mL/min (>60); Est Glom Filt Rate - Afr Amer 16 mL/min (>60); Estimated Creatinine Clearance 15.33 ml/min; Glucose 638 mg/dL (74-106); Potassium 3.5 mmol/L (3.5-5.1); Sodium Level 141 mmol/L (136-145)
[2022-11-03 15:30] LABS: Absolute Lymphocyte Count 1.15 X10^3/uL (0.83-4.51); Absolute Neutrophil Count 15.6 X10^3/uL (2.0-7.7); Basophil# 0.05 X10^3/uL; Basophil% 0.3 % (0-1); Hematocrit 22.7 % (40-54); Hemoglobin 6.6 g/dL (13.0-16.5); Lymphocyte # 1.15 X10^3/ul (0.83-4.51); Lymphocyte % 6.5 % (19-41); Mean Corp Hgb Conc 29.1 g/dL (32-36); Mean Corpuscular Hgb 29.6 pg (27.0-32.0); Mean Corpuscular Volume 101.8 fL (80-94); Mean Platelet Vol. 10.3 fl (6.2-12.0); Monocyte# 0.86 X10^3/uL; Monocyte% 4.8 % (0-10); NRBC Flagged by Analyzer 0 % (0-5); Neutrophil # 15.61 X10^3/uL (2.7-7.7); Neutrophil % 87.6 % (47-70); Platelet Count 572 K/mm3 (150-450); RBC Distribution Width CV 12.9 % (11.6-14.6); RBC Distribution Width SD 47.8 fl (35.1-43.9); Red Blood Count 2.23 M/mm3 (4.6-6.2); White Blood Count 17.8 K/mm3 (4.4-11.0)
[2022-11-03 15:34] LABS: International Normalized Ratio 1.2; Prothrombin Time (Protime)PT. 14.4 SECONDS (11.7-14.9)
[2022-11-03 15:50] LABS: Bedside Glucose > 500 mg/dL (74-106)
--- NOTE | 2022-11-03 16:38 | NURSING ---
finley catheter replaced at this time, core temp working, urine output improved, clear pale urine.
[2022-11-03 16:46] LABS: Bedside Glucose > 500 mg/dL (74-106)
[2022-11-03 17:00] LABS: Bedside Glucose > 500 mg/dL (74-106)
--- NOTE | 2022-11-03 17:23 | PN_ITS ---
Subjective Subjective Patient was sent to the ICU due to likely aspiration pneumonia. He has a history of frequent aspiration pneumonia with esophageal dysphagia status post PEG placement. He is intubated and sedated at this time. Objective Data Objective Data Vital Signs: Vital Signs Temp Pulse Resp BP Pulse Ox O2 Del Method O2 Flow Rate 98.6 F 107 H 23 H 131/60 H 100 Mechanical Ventilator 2 11/03/22 16:00 11/03/22 16:15 11/03/22 16:15 11/03/22 16:00 11/03/22 16:15 11/03/22 16:00 11/02/22 04:45 FiO2 40 11/03/22 16:15 Oxygen Flow Rate (L/min) 2 Oxygen Delivery Method Mechanical Ventilator Weight: 143 lb 4.807 oz Body Mass Index (BMI) 21.7 Intake & Output: Intake and Output for Last 24 Hours 11/01/22 11/02/22 11/03/22 23:59 23:59 23:59 Intake Total 1258.67 / 1258.67 1566.67 / 1566.67 2404.24 / 2404.24 Output Total 750 / 950 1150 / 1450 475 / 475 Balance 508.67 / 308.67 416.67 / 116.67 1929.24 / 1929.24 Medical Nutrition Assessment Dietitian: Malnutrition Criteria Met Start: 10/31/22 11:18 Freq: Status: Active Protocol: Document 11/02/22 09:55 AZAR (Rec: 11/02/22 09:55 AZAR [id number]) Nutrition Malnutrition Evidence of Malnutrition Exists Yes Malnutrition (severe): Acute Illness/Injury Evidenced By Suboptimal Energy Intake ( Severe),Weight Loss (Severe) Clinical Problem Acute Disease or Injury Related Malnutrition Etiology severe, acute malnutrition related to inadequate energy intake d/t nausea, PEG displacement Signs/Symptoms as evidenced by 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 Rec start at 30mL/ hour and increase by 15mL/hour every 8-12 hours as tolerated until goal rate is achieved. Rec continue reglan given suspected gastroparesis. 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 Daily wts. Lab / Micro Data Result Diagrams: 11/03/22 14:45 11/03/22 14:45 Labs: Laboratory Results - last 24 hr 11/02/22 17:24: POC Glucose 254 H 11/03/22 06:15: WBC 13.7 H, RBC 2.47 L, Hgb 7.3 L, Hct 26.3 L, MCV 106.5 H D, MCH 29.6, MCHC 27.8 L D, RDW Std Deviation 49.2 H, RDW Coeff of Jenifer 12.7, Plt Count 589 H, MPV 10.6, Immature Gran % (Auto) 0.700, Neut % (Auto) 89.5 H, Lymph % (Auto) 6.4 L, [place] % (Auto) 2.6, Eos % (Auto) 0.1, Baso % (Auto) 0.7, Absolute Neuts (auto) 12.2 H, Absolute Lymphs (auto) 0.87, Nucleated RBC % 0 11/03/22 06:15: Sodium 136, Potassium 5.2 H, Chloride 93 L, Carbon Dioxide 4.0 L*, Anion Gap 39 H, BUN 45 H, Creatinine 4.45 H, Estim Creat Clear Calc 16.64, Est GFR (MDRD) Af Amer 18 L, Est GFR (MDRD) Non-Af 15 L, BUN/Creatinine Ratio 10.1, Glucose 528 H*, Calcium 8.5 11/03/22 06:15: Total Creatine Kinase 130, Triglycerides 309 H 11/03/22 08:15: MRSA (PCR) POSITIVE H 11/03/22 08:36: Acetone Level LARGE H 11/03/22 10:03: POC Glucose > 500 H* 11/03/22 11:00: Sodium 139, Potassium 5.5 H, Chloride 93 L, Carbon Dioxide 8.0 L*, Anion Gap 38 H, BUN 53 H, Creatinine 4.71 H, Estim Creat Clear Calc 15.72, Est GFR (MDRD) Af Amer 17 L, Est GFR (MDRD) Non-Af 14 L, BUN/Creatinine Ratio 11.3, Glucose 670 H*, Calcium 8.2 L 11/03/22 12:15: POC Glucose > 500 H* 11/03/22 13:23: POC Glucose > 500 H* 11/03/22 14:43: POC Glucose > 500 H* 11/03/22 14:45: Sodium 141, Potassium 3.5, Chloride 95 L, Carbon Dioxide 15.0 L, Anion Gap 31 H, BUN 54 H, Creatinine 4.83 H, Estim Creat Clear Calc 15.33, Est GFR (MDRD) Af Amer 16 L, Est GFR (MDRD) Non-Af 13 L, BUN/Creatinine Ratio 11.2, Glucose 638 H*, Calcium 7.9 L 11/03/22 14:45: WBC 17.8 H, RBC 2.23 L, Hgb 6.6 L, Hct 22.7 L, MCV 101.8 H, MCH 29.6, MCHC 29.1 L, RDW Std Deviation 47.8 H, RDW Coeff of Jenifer 12.9, Plt Count 572 H, MPV 10.3, Immature Gran % (Auto) 0.800, Neut % (Auto) 87.6 H, Lymph % (Auto) 6.5 L, [place] % (Auto) 4.8, Eos % (Auto) 0.0, Baso % (Auto) 0.3, Absolute Neuts (auto) 15.6 H, Absolute Lymphs (auto) 1.15, Nucleated RBC % 0 11/03/22 14:45: PT 14.4, INR 1.2 11/03/22 15:31: POC Glucose > 500 H* 11/03/22 16:39: POC Glucose > 500 H* ABG Data ABG results: ABG 11/03/22 11/03/22 07:10 08:57 Specimen Type ART ART Sample Site L Brach R Brach pH 7.08 L* 6.84 L* Bicarbonate Actual 3.1 L 3.7 L Total CO2 < 5 < 5 Base Excess -27 L < -30 L O2 Saturation 99 93 L O2 % 35 30 ABG pCO2 10.4 L* 21.7 L ABG pO2 155 H 115 H Kev Test Positive Positive Respiration Rate 12 12 O2 Delivery Device BiPAP Adult Vent Vent Mode BiLevel AC Tidal Volume 400 POC PEEP 5 Crit Call To/Read Back Yes Yes Blood Gas Notified Whom eligio steven Clinical Comments 09/17 Radiography Diagnostic Testing: Radiology Impression KUB X-Ray 11/03/22 01:09 IMPRESSION: PEG tube within the stomach without evidence of leak. Electronically Signed: Jorge L Galo MD at 1:41 EST , Chest X-Ray 11/03/22 02:07 IMPRESSION: 1. No acute cardiopulmonary abnormality. 2. No change dialysis catheter. Electronically Signed: Jorge L Galo MD at 2:30 EST , Chest X-Ray 11/03/22 07:56 IMPRESSION: The tip of the endotracheal tube is at 4.4 cm proximal to the aleena. Mild increased markings in the right upper lobe. This is unchanged. Electronically Signed: Eleazar Farrar MD at 8:28 EST , Chest X-Ray 11/03/22 10:36 IMPRESSION: The tip of the right central venous catheter is at the junction of the superior vena cava and right atrium. The remainder of the examination is unchanged. Electronically Signed: Eleazar Farrar MD at 11:21 EST , Physical Exam Narrative General: Intubated no apparent distress. HEENT: Normocephalic, atraumatic.? Mucous membrane moist.? PERRLA.? The patient is deaf. Neck: Supple, no JVD. Heart: Normal S1, S2.? No rubs, murmurs or gallops. Lungs: Clear to auscultation bilaterally. Abdomen: Nondistended, normal bowel sound, soft, epigastric tenderness on palpation without voluntary guarding or rebound. Extremities: No clubbing, cyanosis, or edema. Assessment & Plan Assessment/Plan (1) GI bleed: PLAN: GI bleed secondary pressure ulcer associated with his previous PEG tube that was placed. It was treated endoscopically with cautery. He is likely iron deficient due to multiple chronic diseases. His hemoglobin seems to be stable. Recommend PPI therapy. (2) Pneumonia: PLAN: If his is aspiration pneumonia continues then he may have to have a PEG tube converted to a PEJ tube in the future. Charges/Coding Visit Charges Inpatient E&M: 23321 Init Hosp L2
--- NOTE | 2022-11-03 17:24 | PCM.RX.CS ---
Consult Pharmacy has been consulted to manage selected antiobiotic: Vancomycin Type of Consult: Follow-up Prior Doses of Antibiotics Received/Current Regimen: Medications Discontinued Medications Vancomycin HCl (Vancomycin) 1,000 mg in 200 mls @ 200 mls/hr IV X1 ONE Stop: 11/03/22 05:59 Last Admin: 11/03/22 08:34 Dose: Infused Labs: Sodium 141 mmol/L (136-145) 11/03/22 14:45 Potassium 3.5 mmol/L (3.5-5.1) 11/03/22 14:45 Chloride 95 mmol/L (98-107) L 11/03/22 14:45 Carbon Dioxide 15.0 mmol/L (21.0-32.0) L 11/03/22 14:45 Anion Gap 31 (5-15) H 11/03/22 14:45 BUN 54 mg/dL (7-18) H 11/03/22 14:45 Creatinine 4.83 mg/dL (0.70-1.30) H 11/03/22 14:45 Est GFR (MDRD) Af Amer 16 mL/min (>60) L 11/03/22 14:45 Est GFR (MDRD) Non-Af 13 mL/min (>60) L 11/03/22 14:45 BUN/Creatinine Ratio 11.2 RATIO (10-20) 11/03/22 14:45 Glucose 638 mg/dL (74-106) H* 11/03/22 14:45 Estimated Creatinine Clearance: CRRT Goal Trough: 15-20 mcg/mL Pharmacy Plan for Drug Dosing: CRRT strarted. Change vancomycin to 750mg IV q12h with trough prior to 3rd dose per policy. Pharmacy Service will continue to monitor and adjust dosing as required. Follow-Up Labs: Trough Vancomycin - 11/04 @ 1930
[2022-11-03] MEDS: PUREFLOW B SOLUTION 4K 5,000 ML BAG 9 BAG PF (17:58)
--- NOTE | 2022-11-03 18:14 | NURSING ---
Dr. Truong at bedside, CRRT initiated at 1710, multiple different alarms including access arterial pressure low, access venous pressure low, effluent pressure low, therapy fluid inlet occlusion. Switched connection at patient blue to red and red to blue, adjusted blood flow rate to 300 ml/min, running properly at 1755, per Dr. Truong wait until 1900 to record readings for running patient even.
[2022-11-03 18:46] LABS: Bedside Glucose 423 mg/dL (74-106)
[2022-11-03 19:21] LABS: Bedside Glucose 379 mg/dL (74-106)
[2022-11-03 19:23] LABS: Anion Gap 18 (5-15); BUN 51 mg/dL (7-18); Calcium,Total 7.6 mg/dL (8.5-10.1); Chloride 99 mmol/L (98-107); Creatinine, Serum 4.63 mg/dL (0.70-1.30); EST Glomerular Filtration Rate 14 mL/min (>60); Est Glom Filt Rate - Afr Amer 17 mL/min (>60); Estimated Creatinine Clearance 16.01 ml/min; Glucose 414 mg/dL (74-106); Potassium 3.1 mmol/L (3.5-5.1); Sodium Level 143 mmol/L (136-145)
[2022-11-03] MEDS: Atorvastatin Calcium 40 MG Tablet GT (21:18)
[2022-11-03 23:15] LABS: Bedside Glucose 332 mg/dL (74-106)
[2022-11-03 23:15] LABS: Bedside Glucose 236 mg/dL (74-106)
[2022-11-03 23:15] LABS: Bedside Glucose 295 mg/dL (74-106)
[2022-11-04] VITALS (68 sets, daily range): BP systolic 54–155; BP diastolic 38–83; PULSE 49–86; RESP 12–17; TEMP 34.2–37.9; O2SAT 97–100
--- NOTE | 2022-11-04 00:04 | PCM.HOSP.N ---
Hospitalist Note Discussed regimen for insulin drip with ICU staff given patient BS trending. Repeat BMP currently pending. In reviewing records from the day note Hgb 6.6 at 14:45 with no PRBC ordered at that time. Reviewed most recent GI note with history of pressure ulceration related with PEG tube as etiology for GI bleed. Will request 2 u PRBC to be ordered and initiated per discussion with ICU staff. Also, recent stool during discussions and report potentially tarry appearing. Guiac requested.
[2022-11-04 00:13] LABS: Anion Gap 7 (5-15); BUN 41 mg/dL (7-18); BUN/Creat Ratio 10.6 RATIO (10-20); Calcium,Total 7.7 mg/dL (8.5-10.1); Chloride 105 mmol/L (98-107); Creatinine, Serum 3.85 mg/dL (0.70-1.30); EST Glomerular Filtration Rate 17 mL/min (>60); Est Glom Filt Rate - Afr Amer 21 mL/min (>60); Estimated Creatinine Clearance 19.26 ml/min; Glucose 214 mg/dL (74-106); Potassium 3.1 mmol/L (3.5-5.1); Sodium Level 144 mmol/L (136-145)
[2022-11-04] MEDS: PUREFLOW B SOLUTION 4K 5,000 ML BAG 9 BAG PF ×2 (00:56→08:22)
[2022-11-04] MEDS: 0.9% Saline Lock 10 ML Syringe IV (01:21)
[2022-11-04] MEDS: Norepinephrine 8 mg/250 mL 0.9% NS 9.4 MG CONT INF (02:07)
[2022-11-04] MEDS: Propofol 10MG/Ml 1,000 MG/100 ML Bottle 9.8 MG CONT INF (02:15)
[2022-11-04 02:47] LABS: Bedside Glucose 163 mg/dL (74-106)
[2022-11-04 02:47] LABS: Bedside Glucose 208 mg/dL (74-106)
[2022-11-04 03:17] LABS: Absolute Neutrophil Count 11.9 X10^3/uL (2.0-7.7); Basophil# 0.05 X10^3/uL; Basophil% 0.4 % (0-1); Eosinophil# 0.12 X10^3/uL; Eosinophils% 0.9 % (0-5); Hematocrit 20.9 % (40-54); Hemoglobin 6.7 g/dL (13.0-16.5); Lymphocyte % 7.1 % (19-41); Mean Corp Hgb Conc 32.1 g/dL (32-36); Mean Corpuscular Hgb 29.6 pg (27.0-32.0); Mean Corpuscular Volume 92.5 fL (80-94); Mean Platelet Vol. 9.1 fl (6.2-12.0); Monocyte# 0.85 X10^3/uL; Monocyte% 6.1 % (0-10); NRBC Flagged by Analyzer 0 % (0-5); Neutrophil % 84.9 % (47-70); Platelet Count 443 K/mm3 (150-450); RBC Distribution Width CV 12.8 % (11.6-14.6); Red Blood Count 2.26 M/mm3 (4.6-6.2)
[2022-11-04 03:26] LABS: Bedside Glucose 138 mg/dL (74-106)
[2022-11-04 03:26] LABS: Bedside Glucose 144 mg/dL (74-106)
[2022-11-04 03:32] LABS: Albumin, Serum 1.4 g/dL (3.2-5.0); Anion Gap 6 (5-15); BUN 34 mg/dL (7-18); BUN/Creat Ratio 10.9 RATIO (10-20); Calcium,Total 7.7 mg/dL (8.5-10.1); Chloride 106 mmol/L (98-107); Creatinine, Serum 3.12 mg/dL (0.70-1.30); EST Glomerular Filtration Rate 22 mL/min (>60); Est Glom Filt Rate - Afr Amer 27 mL/min (>60); Estimated Creatinine Clearance 23.76 ml/min; Glucose 139 mg/dL (74-106); Magnesium 1.9 mg/dL (1.6-2.6); Phosphorus 2.7 mg/dL (2.5-4.9); Potassium 4.1 mmol/L (3.5-5.1); Sodium Level 143 mmol/L (136-145)
[2022-11-04] MEDS: Metoclopramide 5 MG TABLET GT ×2 (05:17→21:19)
[2022-11-04 05:46] LABS: Bedside Glucose 111 mg/dL (74-106)
[2022-11-04 05:46] LABS: Bedside Glucose 135 mg/dL (74-106)
[2022-11-04 05:46] LABS: Bedside Glucose 126 mg/dL (74-106)
[2022-11-04] MEDS: Insulin Glargine-YFGN 100 UNIT/ML Pen 15 UNIT SC ×2 (07:15→21:20)
--- NOTE | 2022-11-04 07:20 | PN.CC_ITS ---
Assessment & Plan Assessment/Plan (1) Acute respiratory failure: PLAN: Plan RECOMMENDATIONS: 1. Continue assist-control mode mechanical ventilation. Wean FiO2 and PEEP for saturations greater than 90%. 2. Continue empiric antimicrobials. 3. Check H&H posttransfusion. 4. Continue to wean Levophed to maintain a mean arterial pressure at or above 65 mmHg. 5. Transition from continuous insulin to basal and sliding scale coverage. 6. Continue CRRT per nephrology. 7. Continue appropriate GI prophylaxis. IMPRESSIONS: 1. Acute hypoxemic respiratory failure I do suspect that the patient's respiratory failure was likely multifactorial in etiology. The patient developed nausea and intractable emesis overnight with subsequent aspiration of gastric contents. In addition, the patient appeared to have developed DKA, which led to the development of a significant metabolic acidosis. Unfortunately, the patient unable to compensate from a respiratory perspective for his underlying metabolic derangements. The patient was u ltimately transferred to the intensive care unit and intubated for airway protection. The patient is improving clinically. His respiratory status is stable. Plan to continue empiric antimicrobials as ordered. 2. Profound metabolic acidosis in the setting of DKA Improved. The patient developed a significant anion gap metabolic acidosis in the setting of DKA and was notably acidotic. With supportive care, including CRRT and bicarbonate containing fluids, the patient's acidosis is resolved. The patient will be removed from a continuous insulin infusion and transition to basal and sliding scale coverage. His blood glucose levels will be monitored closely. 3. Multifactorial shock Most likely a combination of hypovolemia in the setting of DKA combined with septic shock related to aspiration pneumonia. The patient is not going to r eceive full sepsis fluid resuscitation, given his underlying ischemic cardiomyopathy and depressed ejection fraction. Levophed will be continued to maintain a mean arterial pressure at or above 65 mmHg. 4. Blood loss anemia secondary to bleeding gastric ulcer status post treatment Continue to monitor H&H daily. Transfuse if hemoglobin drops below 7 g/dL. Continue PPI therapy as ordered. 5. Acute on chronic kidney disease Concern for progression to end-stage renal disease. Nephrology is following to assist with hemodialysis needs. Continue CRRT for now. 6. History of ischemic cardiomyopathy/diabetes mellitus/hyperten cherelle/hyperlipidemia Complicates care, management, recovery and prognosis. Continue to hold home antihypertensives. The patient will ultimately require surgical revascularization of his underlying coronary disease. TIME: 34 minutes of critical care time, inclusive of procedures, was spent addressing the patient's acute hypoxemic respiratory failure, diabetic ketoacidosis, multifactorial shock, blood loss anemia, review of all data and collaboration with the care team. Subjective Subjective The patient was seen and examined at the bedside this morning. Events from the last 24 hours have been reviewed. The patient has improved clinically over the course of the last 24 hours. He remains on assist control mode of mechanical ventilation with an FiO2 requirement of 25% and PEEP of 5. His DKA has resolved. Anion gap is closed. The patient remains on Levophed at 5 mcg/min to maintain hemodynamic stability. He is currently sedated on a combination of propofol and fentanyl. The patient has been tolerant of CRRT. Hemoglobin is low this morning at 6.7 g/dL. The patient is currently receiving a transfusion of packed red blood cells. I did meet with the patient's stepson this morning, who is the POA. He was updated on the patient's clinical status. He indicated that he met with the remaining family members and that they have collectively decided to transition the patient to a DNR CCA. CODE STATUS has been updated to reflect their wishes. Objective Data Objective Data The patient's most recent lab work, culture data and imaging studies have all been personally reviewed. Blood, urine and sputum cultures are pending. Vital Signs: Vital Signs Temp Pulse Resp BP Pulse Ox O2 Del Method O2 Flow Rate 97.6 F L 73 14 103/56 L 97 Mechanical Ventilator 2 11/04/22 06:00 11/04/22 07:17 11/04/22 07:17 11/04/22 06:00 11/04/22 07:17 11/04/22 06:00 11/02/22 04:45 FiO2 11/04/22 07:17 Oxygen Flow Rate (L/min) 2 Oxygen Delivery Method Mechanical Ventilator Weight: 144 lb 13.499 oz Body Mass Index (BMI) 21.7 Intake & Output: Intake and Output for Last 24 Hours 11/02/22 11/03/22 11/04/22 23:59 23:59 23:59 Intake Total 1566.67 / 1566.67 4211.53 / 4288.53 1023.70 / 1023.70 Output Total 1150 / 1450 500 / 570 158 / 158 Balance 416.67 / 116.67 3711.53 / 3718.53 865.70 / 865.70 Medical Nutrition Assessment Dietitian: Malnutrition Criteria Met Start: 10/31/22 11:18 Freq: Status: Active Protocol: Document 11/02/22 09:55 AZAR (Rec: 11/02/22 09:55 SLA [id number]) Nutrition Malnutrition Evidence of Malnutrition Exists Yes Malnutrition (severe): Acute Illness/Injury Evidenced By Suboptimal Energy Intake ( Severe),Weight Loss (Severe) Clinical Problem Acute Disease or Injury Related Malnutrition Etiology severe, acute malnutrition related to inadequate energy intake d/t nausea, PEG displacement Signs/Symptoms as evidenced by 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 Rec start at 30mL/ hour and increase by 15mL/hour every 8-12 hours as tolerated until goal rate is achieved. Rec continue reglan given suspected gastroparesis. MECHATRONICS ENGINEER for ongoing ST. Daily wts. Lab / Micro Data Attestation: I reviewed the patient's lab results. Result Diagrams: 11/04/22 08:55 11/04/22 07:45 Labs: Laboratory Results - last 24 hr 11/03/22 06:15: Sodium 136, Potassium 5.2 H, Chloride 93 L, Carbon Dioxide 4.0 L*, Anion Gap 39 H, BUN 45 H, Creatinine 4.45 H, Estim Creat Clear Calc 16.64, Est GFR (MDRD) Af Amer 18 L, Est GFR (MDRD) Non-Af 15 L, BUN/Creatinine Ratio 10.1, Glucose 528 H*, Calcium 8.5 11/03/22 06:15: Total Creatine Kinase 130, Triglycerides 309 H 11/03/22 08:15: MRSA (PCR) POSITIVE H 11/03/22 08:36: Acetone Level LARGE H 11/03/22 10:03: POC Glucose > 500 H* 11/03/22 11:00: Sodium 139, Potassium 5.5 H, Chloride 93 L, Carbon Dioxide 8.0 L*, Anion Gap 38 H, BUN 53 H, Creatinine 4.71 H, Estim Creat Clear Calc 15.72, Est GFR (MDRD) Af Amer 17 L, Est GFR (MDRD) Non-Af 14 L, BUN/Creatinine Ratio 11.3, Glucose 670 H*, Calcium 8.2 L 11/03/22 12:15: POC Glucose > 500 H* 11/03/22 13:23: POC Glucose > 500 H* 11/03/22 14:43: POC Glucose > 500 H* 11/03/22 14:45: Sodium 141, Potassium 3.5, Chloride 95 L, Carbon Dioxide 15.0 L, Anion Gap 31 H, BUN 54 H, Creatinine 4.83 H, Estim Creat Clear Calc 15.33, Est GFR (MDRD) Af Amer 16 L, Est GFR (MDRD) Non-Af 13 L, BUN/Creatinine Ratio 11.2, Glucose 638 H*, Calcium 7.9 L 11/03/22 14:45: WBC 17.8 H, RBC 2.23 L, Hgb 6.6 L, Hct 22.7 L, MCV 101.8 H, MCH 29.6, MCHC 29.1 L, RDW Std Deviation 47.8 H, RDW Coeff of Jenifer 12.9, Plt Count 572 H, MPV 10.3, Immature Gran % (Auto) 0.800, Neut % (Auto) 87.6 H, Lymph % (Auto) 6.5 L, [place] % (Auto) 4.8, Eos % (Auto) 0.0, Baso % (Auto) 0.3, Absolute Neuts (auto) 15.6 H, Absolute Lymphs (auto) 1.15, Nucleated RBC % 0 11/03/22 14:45: PT 14.4, INR 1.2 11/03/22 15:31: POC Glucose > 500 H* 11/03/22 16:39: POC Glucose > 500 H* 11/03/22 18:06: POC Glucose 423 H 11/03/22 18:56: POC Glucose 379 H 11/03/22 19:00: Sodium 143, Potassium 3.1 L, Chloride 99, Carbon Dioxide 26.0, Anion Gap 18 H, BUN 51 H, Creatinine 4.63 H, Estim Creat Clear Calc 16.01, Est GFR (MDRD) Af Amer 17 L, Est GFR (MDRD) Non-Af 14 L, BUN/Creatinine Ratio 11.0, Glucose 414 H, Calcium 7.6 L 11/03/22 20:00: POC Glucose 332 H 11/03/22 21:02: POC Glucose 295 H 11/03/22 22:03: POC Glucose 236 H 11/03/22 23:00: POC Glucose 208 H 11/03/22 23:40: Sodium 144, Potassium 3.1 L, Chloride 105, Carbon Dioxide 32.0, Anion Gap 7, BUN 41 H, Creatinine 3.85 H, Estim Creat Clear Calc 19.26, Est GFR (MDRD) Af Amer 21 L, Est GFR (MDRD) Non-Af 17 L, BUN/Creatinine Ratio 10.6, Glucose 214 H, Calcium 7.7 L 11/03/22 23:56: POC Glucose 163 H 11/04/22 00:10: Blood Type O POSITIVE, Antibody Screen NEGATIVE, Crossmatch See Detail 11/04/22 01:05: POC Glucose 144 H 11/04/22 01:58: POC Glucose 138 H 11/04/22 03:00: WBC 14.0 H, RBC 2.26 L, Hgb 6.7 L, Hct 20.9 L, MCV 92.5 D, MCH 29.6, MCHC 32.1 D, RDW Std Deviation 43.0, RDW Coeff of Jenifer 12.8, Plt Count 443, MPV 9.1, Immature Gran % (Auto) 0.600, Neut % (Auto) 84.9 H, Lymph % (Auto) 7.1 L, [place] % (Auto) 6.1, Eos % (Auto) 0.9, Baso % (Auto) 0.4, Absolute Neuts (auto) 11.9 H, Absolute Lymphs (auto) 1.00, Nucleated RBC % 0 11/04/22 03:00: Sodium 143, Potassium 4.1, Chloride 106, Carbon Dioxide 31.0, Anion Gap 6, BUN 34 H, Creatinine 3.12 H, Estim Creat Clear Calc 23.76, Est GFR (MDRD) Af Amer 27 L, Est GFR (MDRD) Non-Af 22 L, BUN/Creatinine Ratio 10.9, Glucose 139 H, Calcium 7.7 L, Phosphorus 2.7, Magnesium 1.9, Albumin 1.4 L 11/04/22 03:06: POC Glucose 135 H 11/04/22 03:58: POC Glucose 126 H 11/04/22 05:02: POC Glucose 111 H ABG Data ABG results: ABG 11/03/22 11/03/22 07:10 08:57 Specimen Type ART ART Sample Site L Brach R Brach pH 7.08 L* 6.84 L* Bicarbonate Actual 3.1 L 3.7 L Total CO2 < 5 < 5 Base Excess -27 L < -30 L O2 Saturation 99 93 L O2 % 35 30 ABG pCO2 10.4 L* 21.7 L ABG pO2 155 H 115 H Kev Test Positive Positive Respiration Rate 12 12 O2 Delivery Device BiPAP Adult Vent Vent Mode BiLevel AC Tidal Volume 400 POC PEEP 5 Crit Call To/Read Back Yes Yes Blood Gas Notified Whom eligio steven Clinical Comments 09/17 Radiography Diagnostic Testing: Radiology Impression Chest X-Ray 11/03/22 07:56 IMPRESSION: The tip of the endotracheal tube is at 4.4 cm proximal to the aleena. Mild increased markings in the right upper lobe. This is unchanged. Electronically Signed: Eleazar Farrar MD at 8:28 EST , Chest X-Ray 11/03/22 10:36 IMPRESSION: The tip of the right central venous catheter is at the junction of the superior vena cava and right atrium. The remainder of the examination is unchanged. Electronically Signed: Eleazar Farrar MD at 11:21 EST , Physical Exam Const no apparent distress General Appearance: intubated and patient mechanically ventilated HEENT normocephalic and head/scalp atraumatic General Ear: hearing grossly impaired Mouth: endotracheal tube in place Eyes PERRL Neck supple General: trachea midline and CVC in place Chest inspection of chest normal Resp Auscultation: diminished lung sounds; Negative for rales, rhonchi or wheezes Cardio regular rate and regular rhythm GI soft to palpation and non-tender Inspection: GI tube present Extremity no clubbing, cyanosis or edema Skin no rashes or lesions noted Neuro Sensorium / Orientation: sedated on vent Charges/Coding Procedures Hospitalists Procedures: 99305 Critial Care 1st Hr
[2022-11-04 07:25] LABS: Bedside Glucose 111 mg/dL (74-106)
[2022-11-04 07:25] LABS: Bedside Glucose 107 mg/dL (74-106)
[2022-11-04 08:24] LABS: Anion Gap 6 (5-15); BUN 27 mg/dL (7-18); BUN/Creat Ratio 9.5 RATIO (10-20); Chloride 107 mmol/L (98-107); Creatinine, Serum 2.83 mg/dL (0.70-1.30); EST Glomerular Filtration Rate 25 mL/min (>60); Est Glom Filt Rate - Afr Amer 30 mL/min (>60); Estimated Creatinine Clearance 26.44 ml/min; Glucose 118 mg/dL (74-106); Sodium Level 142 mmol/L (136-145)
[2022-11-04 09:03] LABS: Hematocrit 27.6 % (40-54)
[2022-11-04] MEDS: Menthol/Lanolin/Calamine/Znox 113 GM Tube 1 APPLIC TOPICAL ×2 (09:14→21:17)
[2022-11-04] MEDS: Chlorhexidine 15 ML PO ×2 (09:14→21:17)
[2022-11-04] MEDS: Dorzolamide HCL/Timolol 10 ml Bottle 1 DRP OPHTHALMIC ×2 (09:14→21:18)
[2022-11-04] MEDS: Latanoprost 0.005% 1 Bottle 1 DRP OPHTHALMIC (09:15)
--- NOTE | 2022-11-04 09:58 | CASEMGMT ---
Social Work SW attended ICU rounds. Pt continues to be intubated. Per team, pt status more stable today than yesterday. After rounds, SW met with pt rolfon/NASREEN Contreras. Ben tearful throughout conversation stating that he has spoke with pt and pt sisters and collective decision has been made to change pt code status to DNR. Further, Ben states that the family does not want pt to suffer and if physician feels pt will not recover family does not want medical care continued. SW provided active listening and emotional support. SW explained to Ben that this conversation regarding goals of care should be discussed with Dr. Olmstead, storage battery tester. HUSSEIN left room and spoke with Negro HALL who contacted Dr. Olmstead regarding meeting with Ben. HUSSEIN updated Ben who states he will stay in pt room until he is able to speak with physician. Ben requesting that if pt expires while in the hospital, [facility] is choice. RN updated. JOSLYN Wesley
[2022-11-04] MEDS: Clopidogrel Bisulfate 75 MG Tablet GT (10:10)
[2022-11-04] MEDS: CHLORHEXIDINE GLUC 2% CLOTH 1 EACH TOWELETTE TOPICAL (10:15)
--- NOTE | 2022-11-04 11:40 | PCM.PN.REN ---
Subjective Subjective Was initiated on CRRT last night. Runs well. Potassium normalized. Bicarbonate normalized. Currently on Levophed at 4 mcg. Sedated on propofol. Not ready for extubation today as per primary service. Chest x-ray looks okay. Objective Data Objective Data Vital Signs: Vital Signs Temp Pulse Resp BP Pulse Ox O2 Del Method O2 Flow Rate 98.8 F 58 L 14 112/61 98 Mechanical Ventilator 2 11/04/22 10:00 11/04/22 11:00 11/04/22 11:00 11/04/22 11:00 11/04/22 11:00 11/04/22 11:16 11/02/22 04:45 FiO2 11/04/22 11:16 Oxygen Flow Rate (L/min) 2 Oxygen Delivery Method Mechanical Ventilator Weight: 65.7 kg Body Mass Index (BMI) 21.7 Intake & Output: Intake and Output for Last 24 Hours 11/02/22 11/03/22 11/04/22 23:59 23:59 23:59 Intake Total 1566.67 / 1566.67 4211.53 / 4288.53 2065.50 / 2065.50 Output Total 1150 / 1450 500 / 570 186 / 186 Balance 416.67 / 116.67 3711.53 / 3718.53 1879.50 / 1879.50 Medical Nutrition Assessment Dietitian: Malnutrition Criteria Met Start: 10/31/22 11:18 Freq: Status: Active Protocol: Document 11/02/22 09:55 AZAR (Rec: 11/02/22 09:55 SLA [id number]) Nutrition Malnutrition Evidence of Malnutrition Exists Yes Malnutrition (severe): Acute Illness/Injury Evidenced By Suboptimal Energy Intake ( Severe),Weight Loss (Severe) Clinical Problem Acute Disease or Injury Related Malnutrition Etiology severe, acute malnutrition related to inadequate energy intake d/t nausea, PEG displacement Signs/Symptoms as evidenced by 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 Rec start at 30mL/ hour and increase by 15mL/hour every 8-12 hours as tolerated until goal rate is achieved. Rec continue reglan given suspected gastroparesis. ENVIRONMENTAL SAFETY SPECIALIST for ongoing ST. Daily wts. Lab / Micro Data Result Diagrams: 11/04/22 08:55 11/04/22 07:45 Labs: Laboratory Results - last 24 hr 11/03/22 08:15: MRSA (PCR) POSITIVE H 11/03/22 12:15: POC Glucose > 500 H* 11/03/22 13:23: POC Glucose > 500 H* 11/03/22 14:43: POC Glucose > 500 H* 11/03/22 14:45: Sodium 141, Potassium 3.5, Chloride 95 L, Carbon Dioxide 15.0 L, Anion Gap 31 H, BUN 54 H, Creatinine 4.83 H, Estim Creat Clear Calc 15.33, Est GFR (MDRD) Af Amer 16 L, Est GFR (MDRD) Non-Af 13 L, BUN/Creatinine Ratio 11.2, Glucose 638 H*, Calcium 7.9 L 11/03/22 14:45: WBC 17.8 H, RBC 2.23 L, Hgb 6.6 L, Hct 22.7 L, MCV 101.8 H, MCH 29.6, MCHC 29.1 L, RDW Std Deviation 47.8 H, RDW Coeff of Jenifer 12.9, Plt Count 572 H, MPV 10.3, Immature Gran % (Auto) 0.800, Neut % (Auto) 87.6 H, Lymph % (Auto) 6.5 L, [place] % (Auto) 4.8, Eos % (Auto) 0.0, Baso % (Auto) 0.3, Absolute Neuts (auto) 15.6 H, Absolute Lymphs (auto) 1.15, Nucleated RBC % 0 11/03/22 14:45: PT 14.4, INR 1.2 11/03/22 15:31: POC Glucose > 500 H* 11/03/22 16:39: POC Glucose > 500 H* 11/03/22 18:06: POC Glucose 423 H 11/03/22 18:56: POC Glucose 379 H 11/03/22 19:00: Sodium 143, Potassium 3.1 L, Chloride 99, Carbon Dioxide 26.0, Anion Gap 18 H, BUN 51 H, Creatinine 4.63 H, Estim Creat Clear Calc 16.01, Est GFR (MDRD) Af Amer 17 L, Est GFR (MDRD) Non-Af 14 L, BUN/Creatinine Ratio 11.0, Glucose 414 H, Calcium 7.6 L 11/03/22 20:00: POC Glucose 332 H 11/03/22 21:02: POC Glucose 295 H 11/03/22 22:03: POC Glucose 236 H 11/03/22 23:00: POC Glucose 208 H 11/03/22 23:40: Sodium 144, Potassium 3.1 L, Chloride 105, Carbon Dioxide 32.0, Anion Gap 7, BUN 41 H, Creatinine 3.85 H, Estim Creat Clear Calc 19.26, Est GFR (MDRD) Af Amer 21 L, Est GFR (MDRD) Non-Af 17 L, BUN/Creatinine Ratio 10.6, Glucose 214 H, Calcium 7.7 L 11/03/22 23:56: POC Glucose 163 H 11/04/22 00:10: Blood Type O POSITIVE, Antibody Screen NEGATIVE, Crossmatch See Detail 11/04/22 01:05: POC Glucose 144 H 11/04/22 01:58: POC Glucose 138 H 11/04/22 03:00: WBC 14.0 H, RBC 2.26 L, Hgb 6.7 L, Hct 20.9 L, MCV 92.5 D, MCH 29.6, MCHC 32.1 D, RDW Std Deviation 43.0, RDW Coeff of Jenifer 12.8, Plt Count 443, MPV 9.1, Immature Gran % (Auto) 0.600, Neut % (Auto) 84.9 H, Lymph % (Auto) 7.1 L, [place]oca % (Auto) 6.1, Eos % (Auto) 0.9, Baso % (Auto) 0.4, Absolute Neuts (auto) 11.9 H, Absolute Lymphs (auto) 1.00, Nucleated RBC % 0 11/04/22 03:00: Sodium 143, Potassium 4.1, Chloride 106, Carbon Dioxide 31.0, Anion Gap 6, BUN 34 H, Creatinine 3.12 H, Estim Creat Clear Calc 23.76, Est GFR (MDRD) Af Amer 27 L, Est GFR (MDRD) Non-Af 22 L, BUN/Creatinine Ratio 10.9, Glucose 139 H, Calcium 7.7 L, Phosphorus 2.7, Magnesium 1.9, Albumin 1.4 L 11/04/22 03:06: POC Glucose 135 H 11/04/22 03:58: POC Glucose 126 H 11/04/22 05:02: POC Glucose 111 H 11/04/22 06:04: POC Glucose 111 H 11/04/22 07:00: POC Glucose 107 H 11/04/22 07:45: Sodium 142, Potassium 4.0, Chloride 107, Carbon Dioxide 29.0, Anion Gap 6, BUN 27 H, Creatinine 2.83 H, Estim Creat Clear Calc 26.44, Est GFR (MDRD) Af Amer 30 L, Est GFR (MDRD) Non-Af 25 L, BUN/Creatinine Ratio 9.5 L, Glucose 118 H, Calcium 8.0 L 11/04/22 08:55: Hgb 9.0 L, Hct 27.6 L Micro: Microbiology 11/03/22 11:00 Urine Catheter - Lopez Urine Culture - Preliminary Culture exhibits no growth. 11/03/22 07:55 Sputum, Induced/Lukens Respiratory Culture - Preliminary Appears to be normal respiratory amparo. Further studies to follow. Physical Exam Narrative General: Intubated no apparent distress. HEENT: Normocephalic, atraumatic.? Mucous membrane moist.? PERRLA.? The patient is deaf. Neck: Supple, no JVD. Heart: Normal S1, S2.? No rubs, murmurs or gallops. Lungs: Clear to auscultation bilaterally. Abdomen: Nondistended, normal bowel sound, soft, epigastric tenderness on palpation without voluntary guarding or rebound. Extremities: No clubbing, cyanosis, or edema. Assessment & Plan Assessment/Plan (1) TREVOR (acute kidney injury): (2) CKD (chronic kidney disease): (3) HTN (hypertension): (4) Decreased left ventricular systolic function: (5) Macrocytic anemia: PLAN: Plan Impression/Plan: The patient is a 57-year-old man with past history of type 1 diabetes mellitus, hypertension, CAD, congenital deafness, prior stroke, and chronic kidney disease who was recently admitted to this hospital between 09/16/2022 until 10/19/2022 for DKA, hypertensive emergency, NSTEMI, acute hypoxic respiratory failure requiring temporary mechanical ventilator, and acute kidney injury on chronic kidney disease.? The patient has had a progressive loss of renal function and was started on dialysis on 09/22/2022.? The patient was readmitted to the hospital between 10/21/2022 until 10/27/2022 with upper GI bleed. He returns again to the hospital on 10/30/2022 with dislodgment of his PEG tube.? Nephrology is following for dialysis dependent TREVOR on CKD. Acute kidney injury on chronic kidney disease, unspecified stage. The patient was started on dialysis on 09/22/2022 because of refractory acute hypoxic respiratory failure due to volume overload, acidosis and severe azotemia. Baseline renal function is unclear although there is a notation that serum creatinine was 1.60 mg/dL in 2020.? The last available serum creatinine in [facility] was from 04/22/2014 at 1.3 mg/dL.? Last available outpatient serum creatinine prior to the hospital admission in September 2022 was from February 2021 at 1.6 mg/dL. Suspect the patient has underlying diabetic kidney disease.? He is proteinuric in nephrotic range and has had longstanding, poorly controlled diabetes with retinopathy. It is possible that he has progressed to ESRD secondary to progression of progressive diabetic kidney disease in the setting of poorly controlled diabetes. However, we were never able to biopsy the kidney for definitive diagnosis and prognosis because of the patient's inability to tolerate the procedure. So far, there is no evidence of renal recovery.? The patient remains dialysis dependent with oliguria and increasing azotemia between dialysis. The plan is to pursue kidney biopsy if there is no recovery of renal function after 1-2 months on dialysis.? This can be done as an outpatient. On CRRT yesterday. Overall did well. Labs look much better. Chest x-ray is essentially clean. Not ready for extubation due to mental status today. Potential extubation tomorrow. Currently on very low-dose of Levophed. Will likely transition to intermittent hemodialysis tomorrow. Discussed with ICU team.
[2022-11-04] MEDS: Propofol 10MG/Ml 1,000 MG/100 ML Bottle 7.8 MG CONT INF ×2 (12:15→22:22)
[2022-11-04 12:20] LABS: Bedside Glucose 97 mg/dL (74-106)
--- NOTE | 2022-11-04 13:26 | PCM.PN.HOSP ---
Subjective Subjective Follow-up for shock on Levophed drip, acute hypoxic respiratory failure and DKA with high anion gap metabolic acidosis Objective Data Objective Data Vital Signs: Vital Signs Temp Pulse Resp BP Pulse Ox O2 Del Method O2 Flow Rate 97.0 F L 55 L 14 124/66 H 100 Mechanical Ventilator 2 11/04/22 12:00 11/04/22 13:00 11/04/22 13:00 11/04/22 13:00 11/04/22 12:34 11/04/22 13:00 11/02/22 04:45 FiO2 20 11/04/22 13:00 Oxygen Flow Rate (L/min) 2 Oxygen Delivery Method Mechanical Ventilator Weight: 144 lb 13.499 oz Body Mass Index (BMI) 21.7 Intake & Output: Intake and Output for Last 24 Hours 11/02/22 11/03/22 11/04/22 23:59 23:59 23:59 Intake Total 1566.67 / 1566.67 4211.53 / 4288.53 2111.65 / 2111.65 Output Total 1150 / 1450 500 / 570 190 / 190 Balance 416.67 / 116.67 3711.53 / 3718.53 1921.65 / 1921.65 Medical Nutrition Assessment Dietitian: Malnutrition Criteria Met Start: 10/31/22 11:18 Freq: Status: Active Protocol: Document 11/02/22 09:55 AZAR (Rec: 11/02/22 09:55 AZAR [id number]) Nutrition Malnutrition Evidence of Malnutrition Exists Yes Malnutrition (severe): Acute Illness/Injury Evidenced By Suboptimal Energy Intake ( Severe),Weight Loss (Severe) Clinical Problem Acute Disease or Injury Related Malnutrition Etiology severe, acute malnutrition related to inadequate energy intake d/t nausea, PEG displacement Signs/Symptoms as evidenced by unintentional wt loss of 4.1kg/6% 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 Rec start at 30mL/ hour and increase by 15mL/hour every 8-12 hours as tolerated until goal rate is achieved. Rec continue reglan given suspected gastroparesis. 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 Daily wts. Lab / Micro Data Result Diagrams: 11/04/22 08:55 11/04/22 07:45 Labs: Laboratory Results - last 24 hr 11/03/22 13:23: POC Glucose > 500 H* 11/03/22 14:43: POC Glucose > 500 H* 11/03/22 14:45: Sodium 141, Potassium 3.5, Chloride 95 L, Carbon Dioxide 15.0 L, Anion Gap 31 H, BUN 54 H, Creatinine 4.83 H, Estim Creat Clear Calc 15.33, Est GFR (MDRD) Af Amer 16 L, Est GFR (MDRD) Non-Af 13 L, BUN/Creatinine Ratio 11.2, Glucose 638 H*, Calcium 7.9 L 11/03/22 14:45: WBC 17.8 H, RBC 2.23 L, Hgb 6.6 L, Hct 22.7 L, MCV 101.8 H, MCH 29.6, MCHC 29.1 L, RDW Std Deviation 47.8 H, RDW Coeff of Jenifer 12.9, Plt Count 572 H, MPV 10.3, Immature Gran % (Auto) 0.800, Neut % (Auto) 87.6 H, Lymph % (Auto) 6.5 L, [place] % (Auto) 4.8, Eos % (Auto) 0.0, Baso % (Auto) 0.3, Absolute Neuts (auto) 15.6 H, Absolute Lymphs (auto) 1.15, Nucleated RBC % 0 11/03/22 14:45: PT 14.4, INR 1.2 11/03/22 15:31: POC Glucose > 500 H* 11/03/22 16:39: POC Glucose > 500 H* 11/03/22 18:06: POC Glucose 423 H 11/03/22 18:56: POC Glucose 379 H 11/03/22 19:00: Sodium 143, Potassium 3.1 L, Chloride 99, Carbon Dioxide 26.0, Anion Gap 18 H, BUN 51 H, Creatinine 4.63 H, Estim Creat Clear Calc 16.01, Est GFR (MDRD) Af Amer 17 L, Est GFR (MDRD) Non-Af 14 L, BUN/Creatinine Ratio 11.0, Glucose 414 H, Calcium 7.6 L 11/03/22 20:00: POC Glucose 332 H 11/03/22 21:02: POC Glucose 295 H 11/03/22 22:03: POC Glucose 236 H 11/03/22 23:00: POC Glucose 208 H 11/03/22 23:40: Sodium 144, Potassium 3.1 L, Chloride 105, Carbon Dioxide 32.0, Anion Gap 7, BUN 41 H, Creatinine 3.85 H, Estim Creat Clear Calc 19.26, Est GFR (MDRD) Af Amer 21 L, Est GFR (MDRD) Non-Af 17 L, BUN/Creatinine Ratio 10.6, Glucose 214 H, Calcium 7.7 L 11/03/22 23:56: POC Glucose 163 H 11/04/22 00:10: Blood Type O POSITIVE, Antibody Screen NEGATIVE, Crossmatch See Detail 11/04/22 01:05: POC Glucose 144 H 11/04/22 01:58: POC Glucose 138 H 11/04/22 03:00: WBC 14.0 H, RBC 2.26 L, Hgb 6.7 L, Hct 20.9 L, MCV 92.5 D, MCH 29.6, MCHC 32.1 D, RDW Std Deviation 43.0, RDW Coeff of Jenifer 12.8, Plt Count 443, MPV 9.1, Immature Gran % (Auto) 0.600, Neut % (Auto) 84.9 H, Lymph % (Auto) 7.1 L, [place] % (Auto) 6.1, Eos % (Auto) 0.9, Baso % (Auto) 0.4, Absolute Neuts (auto) 11.9 H, Absolute Lymphs (auto) 1.00, Nucleated RBC % 0 11/04/22 03:00: Sodium 143, Potassium 4.1, Chloride 106, Carbon Dioxide 31.0, Anion Gap 6, BUN 34 H, Creatinine 3.12 H, Estim Creat Clear Calc 23.76, Est GFR (MDRD) Af Amer 27 L, Est GFR (MDRD) Non-Af 22 L, BUN/Creatinine Ratio 10.9, Glucose 139 H, Calcium 7.7 L, Phosphorus 2.7, Magnesium 1.9, Albumin 1.4 L 11/04/22 03:06: POC Glucose 135 H 11/04/22 03:58: POC Glucose 126 H 11/04/22 05:02: POC Glucose 111 H 11/04/22 06:04: POC Glucose 111 H 11/04/22 07:00: POC Glucose 107 H 11/04/22 07:45: Sodium 142, Potassium 4.0, Chloride 107, Carbon Dioxide 29.0, Anion Gap 6, BUN 27 H, Creatinine 2.83 H, Estim Creat Clear Calc 26.44, Est GFR (MDRD) Af Amer 30 L, Est GFR (MDRD) Non-Af 25 L, BUN/Creatinine Ratio 9.5 L, Glucose 118 H, Calcium 8.0 L 11/04/22 08:55: Hgb 9.0 L, Hct 27.6 L 11/04/22 11:53: POC Glucose 97 Micro: Microbiology 11/03/22 07:55 Sputum, Induced/Lukens Gram Stain - Final 11/03/22 07:55 Sputum, Induced/Lukens Respiratory Culture - Preliminary Appears to be normal respiratory amparo. Further studies to follow. 11/03/22 11:00 Urine Catheter - Lopez Urine Culture - Preliminary Culture exhibits no growth. Physical Exam Narrative Physical exam General: Intubated, lightly sedated. HEENT: Atraumatic, PERRLA, EOMI, Normocephalic Oral: ET and OG tube Neck: Right IJ TLC. Left permacath. Supple, No JVD, Negative Carotid Bruits Lungs: Air entry diminished in bilateral lung bases. On vent support. Cardiovascular: Regular rate, Regular Rhythm, Normal S1, Normal S2, No murmurs Abdomen: PEG tube. Dressing is dry. No bleeding after 11/02 morning. : On hemodialysis. subclavian permacath. No renal angle tenderness. No suprapubic tenderness. Extremities: No edema, Capillary Refill Less than 3 Seconds Skin: No rashes, No breakdown Musculoskeletal: Soft restraints on wrists. No Tenderness to Palpation of Joints or Extremities, moderate muscle atrophy. Neurological: Mildly irritable. DTR 2+/4 detailed neuro exam unobtainable. Psych/Mental Status: Flat affect Assessment & Plan Assessment/Plan (1) ABLA (acute blood loss anemia): (2) PEG tube malfunction: (3) Aspiration pneumonia: PLAN: Plan 1. Acute hypoxic respiratory failure most likely due to aspiration, multiple etiology: Patient is intubated on ventilator. Music Therapy Specialist is consulted. Repeat chest x-ray individually reviewed. Lungs feels looks clear. ET tube right midclavicular line. 2. DKA: Labs suggestive of high anion gap metabolic acidosis with pH 7.08. On restricted IV fluid and insulin drip. . Acute blood loss anemia secondary to pulling out a PEG tube ? GI consulted for an PEG tube replacement. PEG tube replaced but has blood clots under dressing. Transfuse PRBC with hemoglobin threshold of 8 g%. ? Continue with PPI 11/03: Hemoglobin dropped to 7.3, MCV 106 point. Platelet count 509,000. Transfuse 1 unit of PRBC. 11/04: Anion gap is closed. Patient metabolic acidosis improved. Bicarb is 31. Insulin drip was transitioned to Lantus and sliding scale insulin. 3. Septic shock, multifactorial due to suspected aspiration pneumonia, hypovolemia from DKA: Patient was started on Levophed drip on 11/02 and is still on it. Patient is not candidate for sepsis protocol for IV fluid as he had ischemic cardiomyopathy with recent non-STEMI and ischemic cardiomyopathy. 4. Acute blood loss anemia on anemia of chronic disease: Patient hemoglobin dropped to 6.7 and 2 unit transfused. Patient had EGD earlier which showed gastric ulcer with visible vessel, erosive esophagitis, gastroparesis on 11/01/2022. 5. Aspiration pneumonia/dysphagia ? Chest x-ray shows right lower lobe infiltrate with history of vomiting, dysphagia and aspiration raises suspicion of aspiration pneumonia, continue with Unasyn Probable gastroparesis 6. DM1/acute kidney injury on CKD unspecified stage with dialysis M, W, F ? Accu-Cheks ACH ? Sliding scale insulin ? Senior Mobile Developer consulted 11/04: Patient on CRRT as per mercury recoverer recommendation 4. CAD/HTN/HLD ? On his previous admission between 09/16/2022 to for multiple reasons non-STEMI, DKA, acute kidney injury on CKD. At that time he had a cardiac cath which demonstrated multivessel disease and medical management was recommended at that time. continue with his aspirin, Plavix once okay with GI His second admission from October 21 to October 27 was for upper GI bleed. ? Continue with Lipitor and Coreg as well as Norvasc once his PEG tube was reinserted 5. Severe protein calorie malnutrition ? Consult nutrition Congenital deafness and congenital blindness as well as an inability to read does make communication very challenging and also complicates his care. DVT: SCDs Charges/Coding Visit Charges Inpatient E&M: 92719 Subs Hosp L3
[2022-11-04 13:41] LABS: Albumin, Serum 1.4 g/dL (3.2-5.0); BUN 23 mg/dL (7-18); BUN/Creat Ratio 9.8 RATIO (10-20); Calcium,Total 8.2 mg/dL (8.5-10.1); Chloride 108 mmol/L (98-107); Creatinine, Serum 2.35 mg/dL (0.70-1.30); EST Glomerular Filtration Rate 30 mL/min (>60); Est Glom Filt Rate - Afr Amer 37 mL/min (>60); Estimated Creatinine Clearance 31.84 ml/min; Glucose 93 mg/dL (74-106); Magnesium 1.9 mg/dL (1.6-2.6); Phosphorus 2.1 mg/dL (2.5-4.9); Potassium 3.8 mmol/L (3.5-5.1); Sodium Level 141 mmol/L (136-145)
[2022-11-04] MEDS: Heparin 10,000 UNITS/10 ML Vial 2500 UNITS IV (14:42)
[2022-11-04 17:30] LABS: Bedside Glucose 81 mg/dL (74-106)
[2022-11-04] MEDS: Atorvastatin Calcium 40 MG Tablet GT (21:19)
[2022-11-04 21:55] LABS: Bedside Glucose 218 mg/dL (74-106)
[2022-11-05] VITALS (45 sets, daily range): BP systolic 89–147; BP diastolic 51–81; PULSE 57–95; RESP 12–18; TEMP 21.1–37.5; O2SAT 26–100
[2022-11-05 03:15] LABS: Absolute Neutrophil Count 6.6 X10^3/uL (2.0-7.7); Basophil# 0.08 X10^3/uL; Eosinophil# 0.18 X10^3/uL; Eosinophils% 2.1 % (0-5); Hematocrit 28.2 % (40-54); Lymphocyte % 11.9 % (19-41); Mean Corp Hgb Conc 31.9 g/dL (32-36); Mean Corpuscular Hgb 29.7 pg (27.0-32.0); Mean Corpuscular Volume 93.1 fL (80-94); Mean Platelet Vol. 9.5 fl (6.2-12.0); Monocyte# 0.51 X10^3/uL; Monocyte% 6.1 % (0-10); NRBC Flagged by Analyzer 0 % (0-5); Neutrophil # 6.58 X10^3/uL (2.7-7.7); Neutrophil % 78.5 % (47-70); Platelet Count 237 K/mm3 (150-450); RBC Distribution Width CV 14.2 % (11.6-14.6); RBC Distribution Width SD 48.6 fl (35.1-43.9); Red Blood Count 3.03 M/mm3 (4.6-6.2); White Blood Count 8.4 K/mm3 (4.4-11.0)
[2022-11-05 03:41] LABS: Albumin, Serum 1.3 g/dL (3.2-5.0); BUN 30 mg/dL (7-18); Calcium,Total 7.4 mg/dL (8.5-10.1); Chloride 107 mmol/L (98-107); Creatinine, Serum 3.33 mg/dL (0.70-1.30); EST Glomerular Filtration Rate 20 mL/min (>60); Est Glom Filt Rate - Afr Amer 25 mL/min (>60); Estimated Creatinine Clearance 22.47 ml/min; Glucose 230 mg/dL (74-106); Magnesium 1.7 mg/dL (1.6-2.6); Phosphorus 5.8 mg/dL (2.5-4.9); Potassium 3.7 mmol/L (3.5-5.1); Sodium Level 141 mmol/L (136-145)
[2022-11-05 03:56] LABS: Vancomycin, Random Level 24.5 ug/mL (0.0-15.0)
--- NOTE | 2022-11-05 05:18 | CPS ---
Failed SBT with RT and RN at bedside; Patient began to gag and throw up bile around the ET tube shortly after placed on CPAP mode on vent. Patient was continuously gagging and throwing up so RN made the decision to turn the sedation back on and patient was placed back on full support on the vent.
--- NOTE | 2022-11-05 06:14 | PCM.PN.INT ---
Assessment & Plan Assessment/Plan (1) Acute respiratory failure: PLAN: Plan RECOMMENDATIONS: 1. Continue assist-control mode mechanical ventilation. Wean FiO2 and PEEP for saturations greater than 90%. 2. Continue empiric antimicrobials. 3. Continue to monitor H&H daily and transfuse if hemoglobin drops below 7 g/dL. 4. Levophed, if needed, to maintain a mean arterial pressure at or above 65 mmHg. 5. Continue basal and sliding scale insulin coverage. 6. Ongoing dialysis support per nephrology. 7. Continue appropriate GI prophylaxis. IMPRESSIONS: 1. Acute hypoxemic respiratory failure I do suspect that the patient's respiratory failure was likely multifactorial in etiology. The patient developed nausea and intractable emesis overnight with subsequent aspiration of gastric contents. In addition, the patient appeared to have developed DKA, which led to the development of a significant metabolic acidosis. Unfortunately, the patient unable to compensate from a respiratory perspective for his underlying metabolic derangements. The patient was ultimately transferred to the intensive care unit and intubated for airway protection. The patient is improving clinically. His respiratory status is stable. Plan to continue empiric antimicrobials as ordered. 2. Profound metabolic acidosis in the setting of DKA Improved. The patient developed a significant anion gap metabolic acidosis in the setting of DKA and was notably acidotic. With supportive care, including CRRT and bicarbonate containing fluids, the patient's acidosis is resolved. The patient will be continued on basal and sliding scale insulin coverage. His blood glucose levels will be monitored closely. 3. Multifactorial shock Most likely a combination of hypovolemia in the setting of DKA combined with septic shock related to aspiration pneumonia. The patient is not going to receive full sepsis fluid resuscitation, given his underlying ischemic cardiomyopathy and depressed ejection fraction. Levophed, if needed, will be continued to maintain a mean arterial pressure at or above 65 mmHg. 4. Blood loss anemia secondary to bleeding gastric ulcer status post treatment Continue to monitor H&H daily. Transfuse if hemoglobin drops below 7 g/dL. Continue PPI therapy as ordered. 5. Acute on chronic kidney disease Concern for progression to end-stage renal disease. Nephrology is following to assist with hemodialysis needs. 6. History of ischemic cardiomyopathy/diabetes mellitus/hypertension/hyperlipidemia Complicates care, management, recovery and prognosis. Continue to hold home antihypertensives. The patient will ultimately require surgical revascularization of his underlying coronary disease. TIME: 32 minutes of critical care time, inclusive of procedures, was spent addressing the patient's acute hypoxemic respiratory failure, diabetic ketoacidosis, multifactorial shock, blood loss anemia, review of all data and collaboration with the care team. Subjective Subjective The patient was seen and examined at the bedside this morning. Events from the last 24 hours have been reviewed. Patient is currently afebrile and maintaining appropriate oxygen saturations with an FiO2 requirement of 25%. Hemoglobin is stable this morning at 9.0 g/dL. Although the patient was initially placed on a spontaneous breathing trial this morning, he ended up developing emesis around his endotracheal tube. Therefore, the breathing trial was terminated. At the present time, the patient has been weaned from vasopressor support. CRRT clotted off yesterday. The patient is currently documented to be overall net +8.8 L for the hospitalization. Objective Data Objective Data The patient's most recent lab work, culture data and imaging studies have all been personally reviewed. Blood, urine and sputum cultures have not demonstrated any growth to date. Vital Signs: Vital Signs Temp Pulse Resp BP Pulse Ox O2 Del Method O2 Flow Rate 98.7 F 71 14 92/53 L 95 Mechanical Ventilator 2 11/05/22 03:00 11/05/22 05:00 11/05/22 05:00 11/05/22 03:30 11/05/22 05:00 11/05/22 03:39 11/02/22 04:45 FiO2 25 11/05/22 05:00 Oxygen Flow Rate (L/min) 2 Oxygen Delivery Method Mechanical Ventilator Weight: 144 lb 2.917 oz Body Mass Index (BMI) 21.7 Intake & Output: Intake and Output for Last 24 Hours 11/03/22 11/04/22 11/05/22 23:59 23:59 23:59 Intake Total 4211.53 / 4288.53 2531.18 / 2573.18 194.93 / 194.93 Output Total 500 / 570 231 / 331 100 / 100 Balance 3711.53 / 3718.53 2300.18 / 2242.18 94.93 / 94.93 Medical Nutrition Assessment Dietitian: Malnutrition Criteria Met Start: 10/31/22 11:18 Freq: Status: Active Protocol: Document 11/02/22 09:55 AZAR (Rec: 11/02/22 09:55 AZAR [id number]) Nutrition Malnutrition Evidence of Malnutrition Exists Yes Malnutrition (severe): Acute Illness/Injury Evidenced By Suboptimal Energy Intake ( Severe),Weight Loss (Severe) Clinical Problem Acute Disease or Injury Related Malnutrition Etiology severe, acute malnutrition related to inadequate energy intake d/t nausea, PEG displacement Signs/Symptoms as evidenced by unintentional wt loss of 4.1kg/6% 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 Rec start at 30mL/ hour and increase by 15mL/hour every 8-12 hours as tolerated until goal rate is achieved. Rec continue reglan given suspected gastroparesis. 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 Daily wts. Lab / Micro Data Attestation: I reviewed the patient's lab results. Result Diagrams: 11/05/22 03:10 11/05/22 03:10 Labs: Laboratory Results - last 24 hr 11/04/22 00:10: Crossmatch See Detail 11/04/22 06:04: POC Glucose 111 H 11/04/22 07:00: POC Glucose 107 H 11/04/22 07:45: Sodium 142, Potassium 4.0, Chloride 107, Carbon Dioxide 29.0, Anion Gap 6, BUN 27 H, Creatinine 2.83 H, Estim Creat Clear Calc 26.44, Est GFR (MDRD) Af Amer 30 L, Est GFR (MDRD) Non-Af 25 L, BUN/Creatinine Ratio 9.5 L, Glucose 118 H, Calcium 8.0 L 11/04/22 08:55: Hgb 9.0 L, Hct 27.6 L 11/04/22 11:53: POC Glucose 97 11/04/22 13:30: Sodium 141, Potassium 3.8, Chloride 108 H, Carbon Dioxide 30.0, BUN 23 H, Creatinine 2.35 H, Estim Creat Clear Calc 31.84, Est GFR (MDRD) Af Amer 37 L, Est GFR (MDRD) Non-Af 30 L, BUN/Creatinine Ratio 9.8 L, Glucose 93, Calcium 8.2 L, Phosphorus 2.1 L, Magnesium 1.9, Albumin 1.4 L 11/04/22 17:09: POC Glucose 81 11/04/22 21:28: POC Glucose 218 H 11/05/22 03:10: Random Vancomycin 24.5 H 11/05/22 03:10: WBC 8.4, RBC 3.03 L, Hgb 9.0 L, Hct 28.2 L, MCV 93.1, MCH 29.7, MCHC 31.9 L, RDW Std Deviation 48.6 H, RDW Coeff of Jenifer 14.2, Plt Count 237, MPV 9.5, Immature Gran % (Auto) 0.400, Neut % (Auto) 78.5 H, Lymph % (Auto) 11.9 L, [place] % (Auto) 6.1, Eos % (Auto) 2.1, Baso % (Auto) 1.0, Absolute Neuts (auto) 6.6, Absolute Lymphs (auto) 1.00, Nucleated RBC % 0 11/05/22 03:10: Sodium 141, Potassium 3.7, Chloride 107, Carbon Dioxide 25.0, BUN 30 H, Creatinine 3.33 H, Estim Creat Clear Calc 22.47, Est GFR (MDRD) Af Amer 25 L, Est GFR (MDRD) Non-Af 20 L, BUN/Creatinine Ratio 9.0 L, Glucose 230 H, Calcium 7.4 L, Phosphorus 5.8 H, Magnesium 1.7, Albumin 1.3 L Micro: Microbiology 11/03/22 07:55 Sputum, Induced/Lukens Gram Stain - Final 11/03/22 07:55 Sputum, Induced/Lukens Respiratory Culture - Preliminary Appears to be normal respiratory amparo. Further studies to follow. 11/03/22 11:00 Urine Catheter - Lopez Urine Culture - Preliminary Culture exhibits no growth. ABG Data ABG results: ABG 11/03/22 11/03/22 07:10 08:57 Specimen Type ART ART Sample Site L Brach R Brach pH 7.08 L* 6.84 L* Bicarbonate Actual 3.1 L 3.7 L Total CO2 < 5 < 5 Base Excess -27 L < -30 L O2 Saturation 99 93 L O2 % 35 30 ABG pCO2 10.4 L* 21.7 L ABG pO2 155 H 115 H Kev Test Positive Positive Respiration Rate 12 12 O2 Delivery Device BiPAP Adult Vent Vent Mode BiLevel AC Tidal Volume 400 POC PEEP 5 Crit Call To/Read Back Yes Yes Blood Gas Notified Whom eligio steven Clinical Comments 09/17 Radiography Diagnostic Testing: Radiology Impression Chest X-Ray 11/03/22 07:56 IMPRESSION: The tip of the endotracheal tube is at 4.4 cm proximal to the aleena. Mild increased markings in the right upper lobe. This is unchanged. Electronically Signed: Eleazar Farrar MD at 8:28 EST , Chest X-Ray 11/03/22 10:36 IMPRESSION: The tip of the right central venous catheter is at the junction of the superior vena cava and right atrium. The remainder of the examination is unchanged. Electronically Signed: Eleazar Frarar MD at 11:21 EST , Physical Exam Const no apparent distress General Appearance: intubated and patient mechanically ventilated HEENT normocephalic and head/scalp atraumatic General Ear: hearing grossly impaired Mouth: endotracheal tube in place Eyes PERRL Neck supple General: trachea midline and CVC in place Chest inspection of chest normal Resp Auscultation: diminished lung sounds; Negative for rales, rhonchi or wheezes Cardio regular rate and regular rhythm GI soft to palpation and non-tender Inspection: GI tube present Extremity no clubbing, cyanosis or edema Skin no rashes or lesions noted Neuro Neuro Narrative: The patient is not currently moving his right lower extremity. Sensorium / Orientation: sedated on vent Charges/Coding Procedures Hospitalists Procedures: 78434 Critial Care 1st Hr
[2022-11-05] MEDS: Metoclopramide 5 MG TABLET GT ×2 (06:26→21:46)
[2022-11-05] MEDS: CHLORHEXIDINE GLUC 2% CLOTH 1 EACH TOWELETTE TOPICAL (06:26)
--- NOTE | 2022-11-05 06:50 | CT_ITS ---
STUDY: CT HEAD STROKE PROTOCOL W/O CONTRAST INJECTION REASON FOR EXAM: Male, 57 years old. Right sided deficits RADIATION DOSAGE (If Supplied By Facility): CTDIvol = ( 44.99 ) mGy, DLP = ( 796.11 ) mGycm TECHNIQUE: Transaxial CT imaging of the brain was performed without administration of intravenous contrast material. Individualized dose optimization techniques were used for this CT. COMPARISON: Comparison is made with prior study dated 10/29/2022. FINDINGS: Normal soft tissue structures. Normal calvarium. There is mild cerebral atrophy with widening of the extra-axial spaces and ventricular dilatation. There are areas of decreased attenuation within the white matter tracts of the supratentorial brain, consistent with microvascular disease changes. Normal basal ganglia and thalami. Stable tiny lucency in the left cerebral peduncle. There is moderate cerebellar atrophy. There is no intracranial hemorrhage. There are no findings of an acute ischemic infarction. Atherosclerotic calcific plaques of the vertebral arteries and cavernous portions of the internal carotid arteries bilaterally. Mucosal thickening of the ethmoid sinuses. Minimal mucosal thickening of the left maxillary sinus. Stable appearance of the right globe. ASPECT score: 10 CT/STROKE Brain/Head without Cont IMPRESSION: Chronic involutional changes of the brain. N.B. : The above Results were Read Back by Eleazar Farrar MD to JAMIL PINEDA and understanding confirmed on 11/05/2022 08:17:17 (ET). Electronically Signed: Eleazar Farrar MD at 8:18 EST ,
[2022-11-05] MEDS: TITRATION PARAMETER CHANGE 1 EACH IV (06:56)
[2022-11-05 07:57] LABS: AST(SGOT) 55 U/L (15-37); Alanine Aminotransfer ALT/SGPT 10 U/L (16-61); Albumin, Serum 1.2 g/dL (3.2-5.0); Alkaline Phosphatase 60 U/L (45-117); Bilirubin, Direct 0.09 mg/dL (0.00-0.30); Globulin 4.5 g/dL (2.2-4.2); Protein, Total 5.7 g/dL (6.4-8.2)
[2022-11-05] MEDS: Dorzolamide HCL/Timolol 10 ml Bottle 1 DRP OPHTHALMIC ×2 (09:27→21:46)
[2022-11-05] MEDS: Insulin Glargine-YFGN 100 UNIT/ML Pen 15 UNIT SC ×2 (09:28→21:49)
[2022-11-05] MEDS: Latanoprost 0.005% 1 Bottle 1 DRP OPHTHALMIC (09:28)
[2022-11-05] MEDS: Chlorhexidine 15 ML PO ×2 (09:29→21:45)
[2022-11-05] MEDS: Clopidogrel Bisulfate 75 MG Tablet GT (09:29)
[2022-11-05] MEDS: Menthol/Lanolin/Calamine/Znox 113 GM Tube 1 APPLIC TOPICAL ×2 (09:29→21:42)
[2022-11-05] MEDS: Propofol 10MG/Ml 1,000 MG/100 ML Bottle 7.8 MG CONT INF ×2 (11:48→22:00)
[2022-11-05] MEDS: Vital AF 1.2 Cal Liquid 1,000 ML 10 ML GT (12:04)
[2022-11-05] MEDS: Insulin Lispro 100 UNIT/ML INSULN.PEN SC ×2 (12:07→17:13)
--- NOTE | 2022-11-05 12:26 | PN.HOSP_ITS ---
Subjective Subjective Follow-up for acute hypoxic respiratory failure. Patient is still intubated on ventilator. DKA resolved. Patient is off Levophed drip since 3 AM. Objective Data Objective Data Vital Signs: Vital Signs Temp Pulse Resp BP Pulse Ox O2 Del Method O2 Flow Rate 98.8 F 61 14 99/56 L 98 Mechanical Ventilator 2 11/05/22 07:00 11/05/22 11:00 11/05/22 11:00 11/05/22 11:00 11/05/22 11:00 11/05/22 11:00 11/02/22 04:45 FiO2 25 11/05/22 11:00 Oxygen Flow Rate (L/min) 2 Oxygen Delivery Method Mechanical Ventilator Weight: 144 lb 2.917 oz Body Mass Index (BMI) 21.7 Intake & Output: Intake and Output for Last 24 Hours 11/03/22 11/04/22 11/05/22 23:59 23:59 23:59 Intake Total 4211.53 / 4288.53 2531.18 / 2573.18 484.75 / 484.75 Output Total 500 / 570 231 / 331 260 / 260 Balance 3711.53 / 3718.53 2300.18 / 2242.18 224.75 / 224.75 Medical Nutrition Assessment Dietitian: Malnutrition Criteria Met Start: 10/31/22 11:18 Freq: Status: Active Protocol: Document 11/02/22 09:55 AZAR (Rec: 11/02/22 09:55 AZAR [id number]) Nutrition Malnutrition Evidence of Malnutrition Exists Yes Malnutrition (severe): Acute Illness/Injury Evidenced By Suboptimal Energy Intake ( Severe),Weight Loss (Severe) Clinical Problem Acute Disease or Injury Related Malnutrition Etiology severe, acute malnutrition related to inadequate energy intake d/t nausea, PEG displacement Signs/Symptoms as evidenced by 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 Rec start at 30mL/ hour and increase by 15mL/hour every 8-12 hours as tolerated until goal rate is achieved. Rec continue reglan given suspected gastroparesis. 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 Daily wts. Lab / Micro Data Result Diagrams: 11/05/22 03:10 11/05/22 03:10 Labs: Laboratory Results - last 24 hr 11/04/22 13:30: Sodium 141, Potassium 3.8, Chloride 108 H, Carbon Dioxide 30.0, BUN 23 H, Creatinine 2.35 H, Estim Creat Clear Calc 31.84, Est GFR (MDRD) Af Amer 37 L, Est GFR (MDRD) Non-Af 30 L, BUN/Creatinine Ratio 9.8 L, Glucose 93, Calcium 8.2 L, Phosphorus 2.1 L, Magnesium 1.9, Albumin 1.4 L 11/04/22 17:09: POC Glucose 81 11/04/22 21:28: POC Glucose 218 H 11/05/22 03:10: Random Vancomycin 24.5 H 11/05/22 03:10: WBC 8.4, RBC 3.03 L, Hgb 9.0 L, Hct 28.2 L, MCV 93.1, MCH 29.7, MCHC 31.9 L, RDW Std Deviation 48.6 H, RDW Coeff of Jenifer 14.2, Plt Count 237, MPV 9.5, Immature Gran % (Auto) 0.400, Neut % (Auto) 78.5 H, Lymph % (Auto) 11.9 L, [place]house % (Auto) 6.1, Eos % (Auto) 2.1, Baso % (Auto) 1.0, Absolute Neuts (auto) 6 .6, Absolute Lymphs (auto) 1.00, Nucleated RBC % 0 11/05/22 03:10: Sodium 141, Potassium 3.7, Chloride 107, Carbon Dioxide 25.0, BUN 30 H, Creatinine 3.33 H, Estim Creat Clear Calc 22.47, Est GFR (MDRD) Af Amer 25 L, Est GFR (MDRD) Non-Af 20 L, BUN/Creatinine Ratio 9.0 L, Glucose 230 H , Calcium 7.4 L, Phosphorus 5.8 H, Magnesium 1.7, Albumin 1.3 L 11/05/22 03:10: Total Bilirubin 0.30, Direct Bilirubin 0.09, AST 55 H, ALT 10 L, Alkaline Phosphatase 60, Total Protein 5.7 L, Albumin 1.2 L, Globulin 4.5 H Micro: Microbiology 11/03/22 11:00 Blood Culture (Wb) - Central Line Blood Culture - Preliminary No growth in 48 hours. 11/03/22 11:00 Urine Catheter - Lopez Urine Culture - Final Culture exhibits no growth. 11/03/22 07:55 Sputum, Induced/Lukens Gram Stain - Final 11/03/22 07:55 Sputum, Induced/Lukens Respiratory Culture - Preliminary Appears to be normal respiratory amparo. Further studies to follow. Radiography Diagnostic Testing: Radiology Impression Brain CT 11/05/22 06:50 IMPRESSION: Chronic involutional changes of the brain. N.B. : The above Results were Read Back by Eleazar Farrar MD to JAMIL PINEDA and understanding confirmed on 11/05/2022 08:17:17 (ET). Electronically Signed: Eleazar Farrar MD at 8:18 EST , ADDENDUM: 11/05/2225 IMPRESSION: Chronic involutional changes of the brain. N.B. : The above Results were Read Back by Eleazar Farrar MD to JAMIL PINEDA and understanding confirmed on 11/05/2022 08:17:17 (ET). Electronically Signed: Eleazar Farrar MD at 8:18 EST , Physical Exam Narrative Physical exam General: Intubated, lightly sedated. Opens eyes. HEENT: Atraumatic, PERRLA, EOMI, Normocephalic Oral: ET and OG tube Neck: Right IJ TLC. Left permacath. Supple, No JVD, Negative Carotid Bruits Lungs: Air entry diminished in bilateral lung bases. On vent support. Cardiovascular: Regular rate, Regular Rhythm, Normal S1, Normal S2, No murmurs Abdomen: PEG tube. Dressing is dry. No bleeding after 11/02 morning. : On hemodialysis. subclavian permacath. No renal angle tenderness. No suprapubic tenderness. Extremities: No edema, Capillary Refill Less than 3 Seconds Skin: No rashes, No breakdown Musculoskeletal: Soft restraints on wrists. No Tenderness to Palpation of Joints or Extremities, moderate muscle atrophy. Neurological: DTR 2+/4. Detailed neuro exam unobtainable. Psych/Mental Status: Flat affect Assessment & Plan Assessment/Plan (1) ABLA (acute blood loss anemia): (2) PEG tube malfunction: (3) Aspiration pneumonia: PLAN: Plan 1. Acute hypoxic respiratory failure most likely due to aspiration, multiple etiology: Patient is intubated on ventilator. Windows Vmware Administrator is consulted. Repeat chest x-ray individually reviewed. Lungs feels looks clear. ET tube right midclavicular line. 2. DKA: Labs suggestive of high anion gap metabolic acidosis with pH 7.08. On restricted IV fluid and insulin drip. . Acute blood loss anemia secondary to pulling out a PEG tube ? GI consulted for an PEG tube replacement. PEG tube replaced but has blood clots under dressing. Transfuse PRBC with hemoglobin threshold of 8 g%. ? Continue with PPI 11/03: Hemoglobin dropped to 7.3, MCV 106 point. Platelet count 509,000. Transfuse 1 unit of PRBC. 11/04: Anion gap is closed. Patient metabolic acidosis improved. Bicarb is 31. Insulin drip was transitioned to Lantus and sliding scale insulin. 11/05: Glucose 230 in BMP. 3. Septic shock, multifactorial due to suspected aspiration pneumonia, hypovolemia from DKA: Patient was started on Levophed drip on 11/02 and is still on it. Patient is not candidate for sepsis protocol for IV fluid as he had ischemic cardiomyopathy with recent non-STEMI and ischemic cardiomyopathy. 11/05: Patient is of Levophed drip since 3 AM. Monitor BP. Continue IV antibiotic 4. Acute blood loss anemia on anemia of chronic disease: Patient hemoglobin dropped to 6.7 and 2 unit transfused. Patient had EGD earlier which showed gastric ulcer with visible vessel, erosive esophagitis, gastroparesis on 11/01/2022. 11/05: Posttransfusion hemoglobin 9 g. 5. Aspiration pneumonia/dysphagia ? Chest x-ray shows right lower lobe infiltrate with history of vomiting, dysphagia and aspiration raises suspicion of aspiration pneumonia, continue with Unasyn Probable gastroparesis 6. DM1/acute kidney injury on CKD unspecified stage with dialysis M, W, F ? Accu-Cheks ACH ? Sliding scale insulin ? Sizing Sponger consulted 11/04: Patient on CRRT as per warp hanger recommendation 4. CAD/HTN/HLD ? On his previous admission between 09/16/2022 to for multiple reasons non-STEMI, DKA, acute kidney injury on CKD. At that time he had a cardiac cath which demonstrated multivessel disease and medical management was recommended at that time. continue with his aspirin, Plavix once okay with GI His second admission from October 21 to October 27 was for upper GI bleed. ? Continue with Lipitor and Coreg as well as Norvasc once his PEG tube was reinserted 5. Severe protein calorie malnutrition ? Consult nutrition Congenital deafness and congenital blindness as well as an inability to read does make communication very challenging and also complicates his care. DVT: SCDs Charges/Coding Visit Charges Inpatient E&M: 72462 Subs Hosp L3
[2022-11-05 12:55] LABS: Bedside Glucose 226 mg/dL (74-106)
--- NOTE | 2022-11-05 13:30 | PN.RENAL_ITS ---
Subjective Subjective Remains intubated. Was on breathing trial this morning, had massive emesis, bilious, likely aspirated again. Off Levophed this morning. Labs look okay. Objective Data Objective Data Vital Signs: Vital Signs Temp Pulse Resp BP Pulse Ox O2 Del Method O2 Flow Rate 98.6 F 64 14 118/64 95 Mechanical Ventilator 2 11/05/22 12:00 11/05/22 13:00 11/05/22 13:00 11/05/22 13:00 11/05/22 13:00 11/05/22 13:00 11/02/22 04:45 FiO2 25 11/05/22 13:00 Oxygen Flow Rate (L/min) 2 Oxygen Delivery Method Mechanical Ventilator Weight: 65.4 kg Body Mass Index (BMI) 21.7 Intake & Output: Intake and Output for Last 24 Hours 11/03/22 11/04/22 11/05/22 23:59 23:59 23:59 Intake Total 4211.53 / 4288.53 2531.18 / 2573.18 554.11 / 554.11 Output Total 500 / 570 231 / 331 400 / 400 Balance 3711.53 / 3718.53 2300.18 / 2242.18 154.11 / 154.11 Medical Nutrition Assessment Dietitian: Malnutrition Criteria Met Start: 10/31/22 11:18 Freq: Status: Active Protocol: Document 11/02/22 09:55 AZAR (Rec: 11/02/22 09:55 AZAR [id number]) Nutrition Malnutrition Evidence of Malnutrition Exists Yes Malnutrition (severe): Acute Illness/Injury Evidenced By Suboptimal Energy Intake ( Severe),Weight Loss (Severe) Clinical Problem Acute Disease or Injury Related Malnutrition Etiology severe, acute malnutrition related to inadequate energy intake d/t nausea, PEG displacement Signs/Symptoms as evidenced by 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 Rec start at 30mL/ hour and increase by 15mL/hour every 8-12 hours as tolerated until goal rate is achieved. Rec continue reglan given suspected gastroparesis. 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 Daily wts. Lab / Micro Data Result Diagrams: 11/05/22 03:10 11/05/22 03:10 Labs: Laboratory Results - last 24 hr 11/04/22 13:30: Sodium 141, Potassium 3.8, Chloride 108 H, Carbon Dioxide 30.0, BUN 23 H, Creatinine 2.35 H, Estim Creat Clear Calc 31.84, Est GFR (MDRD) Af Amer 37 L, Est GFR (MDRD) Non-Af 30 L, BUN/Creatinine Ratio 9.8 L, Glucose 93, Calcium 8.2 L, Phosphorus 2.1 L, Magnesium 1.9, Albumin 1.4 L 11/04/22 17:09: POC Glucose 81 11/04/22 21:28: POC Glucose 218 H 11/05/22 03:10: Random Vancomycin 24.5 H 11/05/22 03:10: WBC 8.4, RBC 3.03 L, Hgb 9.0 L, Hct 28.2 L, MCV 93.1, MCH 29.7, MCHC 31.9 L, RDW Std Deviation 48.6 H, RDW Coeff of Jenifer 14.2, Plt Count 237, MPV 9.5, Immature Gran % (Auto) 0.400, Neut % (Auto) 78.5 H, Lymph % (Auto) 11.9 L, [place]he % (Auto) 6.1, Eos % (Auto) 2.1, Baso % (Auto) 1.0, Absolute Neuts (auto) 6.6, Absolute Lymphs (auto) 1.00, Nucleated RBC % 0 11/05/22 03:10: Sodium 141, Potassium 3.7, Chloride 107, Carbon Dioxide 25.0, BUN 30 H, Creatinine 3.33 H, Estim Creat Clear Calc 22.47, Est GFR (MDRD) Af Amer 25 L, Est GFR (MDRD) Non-Af 20 L, BUN/Creatinine Ratio 9.0 L, Glucose 230 H , Calcium 7.4 L, Phosphorus 5.8 H, Magnesium 1.7, Albumin 1.3 L 11/05/22 03:10: Total Bilirubin 0.30, Direct Bilirubin 0.09, AST 55 H, ALT 10 L, Alkaline Phosphatase 60, Total Protein 5.7 L, Albumin 1.2 L, Globulin 4.5 H 11/05/22 12:06: POC Glucose 226 H Micro: Microbiology 11/03/22 11:00 Blood Culture (Wb) - Central Line Blood Culture - Preliminary No growth in 48 hours. 11/03/22 11:00 Urine Catheter - Lopez Urine Culture - Final Culture exhibits no growth. 11/03/22 07:55 Sputum, Induced/Lukens Gram Stain - Final 11/03/22 07:55 Sputum, Induced/Lukens Respiratory Culture - Preliminary Appears to be normal respiratory amparo. Further studies to follow. Radiography Diagnostic Testing: Radiology Impression Brain CT 11/05/22 06:50 IMPRESSION: Chronic involutional changes of the brain. N.B. : The above Results were Read Back by Eleazar Farrar MD to JAMIL PINEDA and understanding confirmed on 11/05/2022 08:17:17 (ET). Electronically Signed: Eleazar Farrar MD at 8:18 EST , ADDENDUM: 11/05/22824 IMPRESSION: Chronic involutional changes of the brain. N.B. : The above Results were Read Back by Eleazar Farrar MD to JAMIL PINEDA and understanding confirmed on 11/05/2022 08:17:17 (ET). Electronically Signed: Eleazar Farrar MD at 8:18 EST , Physical Exam Narrative General: Intubated no apparent distress. HEENT: Normocephalic, atraumatic.? Mucous membrane moist.? PERRLA.? The patient is deaf. Neck: Supple, no JVD. Heart: Normal S1, S2.? No rubs, murmurs or gallops. Lungs: Clear to auscultation bilaterally. Abdomen: Nondistended, normal bowel sound, soft, epigastric tenderness on palpation without voluntary guarding or rebound. Extremities: No clubbing, cyanosis, or edema. Assessment & Plan Assessment/Plan (1) TREVOR (acute kidney injury): (2) CKD (chronic kidney disease): (3) HTN (hypertension): (4) Decreased left ventricular systolic function: (5) Macrocytic anemia: PLAN: Plan Impression/Plan: The patient is a 57-year-old man with past history of type 1 diabetes mellitus, hypertension, CAD, congenital deafness, prior stroke, and chronic kidney disease who was recently admitted to this hospital between 09/16/2022 until 10/19/2022 for DKA, hypertensive emergency, NSTEMI, acute hypoxic respiratory failure requiring temporary mechanical ventilator, and acute kidney injury on chronic kidney disease.? The patient has had a progressive loss of renal function and was started on dialysis on 09/22/2022.? The patient was readmitted to the hospital between 10/21/2022 until 10/27/2022 with upper GI bleed. He returns again to the hospital on 10/30/2022 with dislodgment of his PEG tube.? Nephrology is following for dialysis dependent TREVOR on CKD. Acute kidney injury on chronic kidney disease, unspecified stage. The patient was started on dialysis on 09/22/2022 because of refractory acute hypoxic respiratory failure due to volume overload, acidosis and severe azotemia. Baseline renal function is unclear although there is a notation that serum creatinine was 1.60 mg/dL in 2020.? The last available serum creatinine in [facility] was from 04/22/2014 at 1.3 mg/dL.? Last available outpatient serum creatinine prior to the hospital admission in September 2022 was from February 2021 at 1.6 mg/dL. Suspect the patient has underlying diabetic kidney disease.? He is proteinuric in nephrotic range and has had longstanding, poorly controlled diabetes with retinopathy. It is possible that he has progressed to ESRD secondary to progression of progressive diabetic kidney disease in the setting of poorly controlled diabetes. However, we were never able to biopsy the kidney for definitive diagnosis and prognosis because of the patient's inability to tolerate the procedure. So far, there is no evidence of renal recovery.? The patient remains dialysis dependent with oliguria and increasing azotemia between dialysis. The plan is to pursue kidney biopsy if there is no recovery of renal function after 1-2 months on dialysis.? This can be done as an outpatient. Has been off CRRT since yesterday afternoon. Labs look okay today. Blood glucose values are acceptable. Chest x-ray did not show any fluid overload. Could not be extubated since he had a massive emesis. Off Levophed. Will likely plan for regular dialysis tomorrow.
--- NOTE | 2022-11-05 13:55 | PCM.RX.CS ---
Consult Pharmacy has been consulted to manage selected antiobiotic: Vancomycin Type of Consult: Follow-up Labs: Sodium 141 mmol/L (136-145) 11/05/22 03:10 Potassium 3.7 mmol/L (3.5-5.1) 11/05/22 03:10 Chloride 107 mmol/L (98-107) 11/05/22 03:10 Carbon Dioxide 25.0 mmol/L (21.0-32.0) 11/05/22 03:10 Anion Gap 6 (5-15) 11/04/22 07:45 BUN 30 mg/dL (7-18) H 11/05/22 03:10 Creatinine 3.33 mg/dL (0.70-1.30) H 11/05/22 03:10 Est GFR (MDRD) Af Amer 25 mL/min (>60) L 11/05/22 03:10 Est GFR (MDRD) Non-Af 20 mL/min (>60) L 11/05/22 03:10 BUN/Creatinine Ratio 9.0 RATIO (10-20) L 11/05/22 03:10 Glucose 230 mg/dL (74-106) H 11/05/22 03:10 Random Vancomycin 24.5 ug/mL (0.0-15.0) H 11/05/22 03:10 Microbiology: Microbiology 11/03/22 11:00 Blood Culture (Wb) - Central Line Blood Culture - Preliminary No growth in 48 hours. 11/03/22 11:00 Urine Catheter - Lopez Urine Culture - Final Culture exhibits no growth. 11/03/22 07:55 Sputum, Induced/Lukens Gram Stain - Final 11/03/22 07:55 Sputum, Induced/Lukens Respiratory Culture - Preliminary Appears to be normal respiratory amparo. Further studies to follow. Goal Trough: 15-20 mcg/mL Pharmacy Plan for Drug Dosing: VANCOMYCIN LEVEL RECEIVED Current Vancomycin Dose: DOSE BASED ON PRE-HD LEVELS Number of Doses Received: SEVERAL Vancomycin Level: 24.5 Renal Function: ON HD- Normal HD schedule is M/W/F Lab/Micro: Cx show NGTD Vancomycin Plan/Comments: Patient had a random level this morning which resulted in a value of 24.5. The patient was previously on CRRT, which has now been stopped. Vancomycin dosing now back to dosing based on Pre-HD levels. Per nephrology, patient is not to have HD treatment today, and due to elevated level, will not give additional dose today. Per nephrology, patient is to have HD planned for tomorrow, 11/06. Will order a random trough and administer vancomycin after HD treatment tomorrow per policy. Pending Level: *RANDOM* level 11/06/22 with AM labs, Pre-HD treatment Pharmacy Service will continue to monitor and adjust dosing as required.
[2022-11-05 17:36] LABS: Bedside Glucose 156 mg/dL (74-106)
[2022-11-05] MEDS: Atorvastatin Calcium 40 MG Tablet GT (21:46)
[2022-11-06] VITALS (27 sets, daily range): BP systolic 109–159; BP diastolic 58–101; PULSE 53–91; RESP 11–26; TEMP 35.8–36.6; O2SAT 95–100
[2022-11-06] MEDS: Insulin Lispro 100 UNIT/ML INSULN.PEN SC (00:24)
[2022-11-06 02:46] LABS: Bedside Glucose 154 mg/dL (74-106)
--- NOTE | 2022-11-06 04:00 | NURSING ---
Fentanyl and Propofol paused @ 0400 for SAT.
[2022-11-06 05:14] LABS: Absolute Lymphocyte Count 1.34 X10^3/uL (0.83-4.51); Absolute Neutrophil Count 3.6 X10^3/uL (2.0-7.7); Basophil% 1.7 % (0-1); Eosinophil# 0.61 X10^3/uL; Eosinophils% 10.1 % (0-5); Hematocrit 27.9 % (40-54); Hemoglobin 8.6 g/dL (13.0-16.5); Lymphocyte # 1.34 X10^3/ul (0.83-4.51); Lymphocyte % 22.1 % (19-41); Mean Corp Hgb Conc 30.8 g/dL (32-36); Mean Corpuscular Hgb 29.4 pg (27.0-32.0); Mean Corpuscular Volume 95.2 fL (80-94); Mean Platelet Vol. 9.5 fl (6.2-12.0); Monocyte# 0.38 X10^3/uL; Monocyte% 6.3 % (0-10); NRBC Flagged by Analyzer 0 % (0-5); Neutrophil # 3.59 X10^3/uL (2.7-7.7); Neutrophil % 59.3 % (47-70); Platelet Count 237 K/mm3 (150-450); RBC Distribution Width CV 13.8 % (11.6-14.6); RBC Distribution Width SD 48.2 fl (35.1-43.9); Red Blood Count 2.93 M/mm3 (4.6-6.2); White Blood Count 6.1 K/mm3 (4.4-11.0)
[2022-11-06 05:41] LABS: Anion Gap 9 (5-15); BUN 34 mg/dL (7-18); BUN/Creat Ratio 7.4 RATIO (10-20); Calcium,Total 7.4 mg/dL (8.5-10.1); Chloride 107 mmol/L (98-107); Creatinine, Serum 4.58 mg/dL (0.70-1.30); EST Glomerular Filtration Rate 14 mL/min (>60); Est Glom Filt Rate - Afr Amer 17 mL/min (>60); Estimated Creatinine Clearance 16.24 ml/min; Glucose 121 mg/dL (74-106); Potassium 3.4 mmol/L (3.5-5.1); Sodium Level 141 mmol/L (136-145)
[2022-11-06 05:43] LABS: Vancomycin, Random Level 21.2 ug/mL (0.0-15.0)
--- NOTE | 2022-11-06 06:13 | PCM.PN.INT ---
Assessment & Plan Assessment/Plan (1) Acute respiratory failure: PLAN: Plan RECOMMENDATIONS: 1. Proceed with a trial of extubation this morning. 2. Once extubated, wean supplemental oxygen to maintain saturations at or above 90%. 3. Continue empiric antimicrobials to complete 7-day treatment course. 4. Continue to monitor H&H daily and transfuse if hemoglobin drops below 7 g/dL. 5. Continue basal and sliding scale insulin coverage. 6. Ongoing dialysis support per nephrology. 7. Continue appropriate GI prophylaxis. IMPRESSIONS: 1. Acute hypoxemic respiratory failure I do suspect that the patient's respiratory failure was likely multifactorial in etiology. The patient developed nausea and intractable emesis with subsequent aspiration of gastric contents. In addition, the patient appeared to have developed DKA, which led to the development of a significant metabolic acidosis. Unfortunately, the patient unable to compensate from a respiratory perspective for his underlying metabolic derangements. The patient was ultimately transferred to the intensive care unit and intubated for airway protection. The patient is improving clinically. His respiratory status is stable. Plan to continue empiric antimicrobials as ordered. In addition, plan to proceed with extubation this morning. 2. Profound metabolic acidosis in the setting of DKA Improved. The patient developed a significant anion gap metabolic acidosis in the setting of DKA and was notably acidotic. With supportive care, including CRRT and bicarbonate containing fluids, the patient's acidosis is resolved. The patient will be continued on basal and sliding scale insulin coverage. His blood glucose levels will be monitored closely. 3. Multifactorial shock Resolved. Most likely a combination of hypovolemia in the setting of DKA combined with septic shock related to aspiration pneumonia. The patient is not going to receive full sepsis fluid resuscitation, given his underlying ischemic cardiomyopathy and depressed ejection fraction. The patient has been weaned from vasopressor support and remains hemodynamically stable. 4. Blood loss anemia secondary to bleeding gastric ulcer status post treatment Continue to monitor H&H daily. Transfuse if hemoglobin drops below 7 g/dL. Continue PPI therapy as ordered. 5. Acute on chronic kidney disease Concern for progression to end-stage renal disease. Nephrology is following to assist with hemodialysis needs. 6. History of ischemic cardiomyopathy/diabetes mellitus/hypertension/hyperlipidemia Complicates care, management, recovery and prognosis. Continue to hold home antihypertensives. The patient will ultimately require surgical revascularization of his underlying coronary disease. TIME: 31 minutes of critical care time, inclusive of procedures, was spent addressing the patient's acute hypoxemic respiratory failure, diabetic ketoacidosis, multifactorial shock, blood loss anemia, review of all data and collaboration with the care team. Subjective Subjective The patient was seen and examined at the bedside this morning. Events from the last 24 hours have been reviewed. The patient is currently afebrile, hemodynamically stable and maintaining appropriate oxygen saturations on spontaneous mode mechanical ventilation with an FiO2 requirement of 25%. Hemoglobin is stable at 8.6 g/dL. Potassium is low at 3.4. The patient is alert and able to follow simple commands. He has done well this morning on his spontaneous breathing trial. Objective Data Objective Data The patient's most recent lab work, culture data and imaging studies have all been personally reviewed. Blood, urine and sputum cultures have not demonstrated any growth to date. Vital Signs: Vital Signs Temp Pulse Resp BP Pulse Ox O2 Del Method O2 Flow Rate 96.4 F L 66 11 L 147/101 H 100 Mechanical Ventilator 2 11/06/22 05:00 11/06/22 05:00 11/06/22 05:00 11/06/22 05:00 11/06/22 05:00 11/06/22 05:00 11/02/22 04:45 FiO2 25 11/06/22 05:00 Oxygen Flow Rate (L/min) 2 Oxygen Delivery Method Mechanical Ventilator Weight: 143 lb 15.39 oz Body Mass Index (BMI) 21.7 Intake & Output: Intake and Output for Last 24 Hours 11/04/22 11/05/22 11/06/22 23:59 23:59 23:59 Intake Total 2531.18 / 2573.18 1242.11 / 1309.91 239.0 / 239.0 Output Total 231 / 331 515 / 525 210 / 210 Balance 2300.18 / 2242.18 727.11 / 784.91 29.0 / 29.0 Medical Nutrition Assessment Dietitian: Malnutrition Criteria Met Start: 10/31/22 11:18 Freq: Status: Active Protocol: Document 11/02/22 09:55 AZAR (Rec: 11/02/22 09:55 AZAR [id number]) Nutrition Malnutrition Evidence of Malnutrition Exists Yes Malnutrition (severe): Acute Illness/Injury Evidenced By Suboptimal Energy Intake ( Severe),Weight Loss (Severe) Clinical Problem Acute Disease or Injury Related Malnutrition Etiology severe, acute malnutrition related to inadequate energy intake d/t nausea, PEG displacement Signs/Symptoms as evidenced by 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 Rec start at 30mL/ hour and increase by 15mL/hour every 8-12 hours as tolerated until goal rate is achieved. Rec continue reglan given suspected gastroparesis. 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 Daily wts. Lab / Micro Data Attestation: I reviewed the patient's lab results. Result Diagrams: 11/06/22 05:03 11/06/22 05:03 Labs: Laboratory Results - last 24 hr 11/05/22 03:10: Total Bilirubin 0.30, Direct Bilirubin 0.09, AST 55 H, ALT 10 L, Alkaline Phosphatase 60, Total Protein 5.7 L, Albumin 1.2 L, Globulin 4.5 H 11/05/22 12:06: POC Glucose 226 H 11/05/22 17:12: POC Glucose 156 H 11/06/22 00:22: POC Glucose 154 H 11/06/22 05:03: Random Vancomycin 21.2 H 11/06/22 05:03: WBC 6.1, RBC 2.93 L, Hgb 8.6 L, Hct 27.9 L, MCV 95.2 H, MCH 29.4, MCHC 30.8 L, RDW Std Deviation 48.2 H, RDW Coeff of Jenifer 13.8, Plt Count 237, MPV 9.5, Immature Gran % (Auto) 0.500, Neut % (Auto) 59.3, Lymph % (Auto) 22.1, [place] % (Auto) 6.3, Eos % (Auto) 10.1 H, Baso % (Auto) 1.7 H, Absolute Neuts (auto) 3.6, Absolute Lymphs (auto) 1.34, Nucleated RBC % 0 11/06/22 05:03: Sodium 141, Potassium 3.4 L, Chloride 107, Carbon Dioxide 25.0, Anion Gap 9, BUN 34 H, Creatinine 4.58 H, Estim Creat Clear Calc 16.24, Est GFR (MDRD) Af Amer 17 L, Est GFR (MDRD) Non-Af 14 L, BUN/Creatinine Ratio 7.4 L, Glucose 121 H, Calcium 7.4 L Micro: Microbiology 11/03/22 11:00 Blood Culture (Wb) - Central Line Blood Culture - Preliminary No growth in 48 hours. 11/03/22 11:00 Urine Catheter - Lopez Urine Culture - Final Culture exhibits no growth. 11/03/22 07:55 Sputum, Induced/Lukens Gram Stain - Final 11/03/22 07:55 Sputum, Induced/Lukens Respiratory Culture - Preliminary Appears to be normal respiratory amparo. Further studies to follow. ABG Data ABG results: ABG 11/03/22 11/03/22 07:10 08:57 Specimen Type ART ART Sample Site L Brach R Brach pH 7.08 L* 6.84 L* Bicarbonate Actual 3.1 L 3.7 L Total CO2 < 5 < 5 Base Excess -27 L < -30 L O2 Saturation 99 93 L O2 % 35 30 ABG pCO2 10.4 L* 21.7 L ABG pO2 155 H 115 H Kev Test Positive Positive Respiration Rate 12 12 O2 Delivery Device BiPAP Adult Vent Vent Mode BiLevel AC Tidal Volume 400 POC PEEP 5 Crit Call To/Read Back Yes Yes Blood Gas Notified Whom eligio steven Clinical Comments 09/17 Radiography Diagnostic Testing: Radiology Impression Brain CT 11/05/22 06:50 IMPRESSION: Chronic involutional changes of the brain. N.B. : The above Results were Read Back by Eleazar Farrar MD to JAMIL STEVEN and understanding confirmed on 11/05/2022 08:17:17 (ET). Electronically Signed: Eleazar Farrar MD at 8:18 EST , ADDENDUM: 11/05/22 0825 IMPRESSION: Chronic involutional changes of the brain. N.B. : The above Results were Read Back by Eleazar Farrar MD to JAMIL STEVEN and understanding confirmed on 11/05/2022 08:17:17 (ET). Electronically Signed: Eleazar Farrar MD at 8:18 EST , Physical Exam Const alert and no apparent distress General Appearance: cooperative, intubated and patient mechanically ventilated HEENT normocephalic and head/scalp atraumatic General Ear: hearing grossly impaired Mouth: endotracheal tube in place Eyes PERRL Neck supple General: trachea midline and CVC in place Chest inspection of chest normal Resp Auscultation: diminished lung sounds; Negative for rales, rhonchi or wheezes Cardio regular rate and regular rhythm GI soft to palpation and non-tender Inspection: GI tube present Extremity no clubbing, cyanosis or edema Skin no rashes or lesions noted Neuro Neuro Narrative: Alert and able to follow simple commands. Charges/Coding Procedures Hospitalists Procedures: 21406 Critial Care 1st Hr
[2022-11-06] MEDS: Ondansetron 4 MG/2 ML Vial IV ×2 (06:31→14:59)
--- NOTE | 2022-11-06 06:40 | NURSING ---
Pt extubated. Maintaining SPO2 on RA. Restraints removed.
[2022-11-06 07:01] LABS: Bedside Glucose 122 mg/dL (74-106)
[2022-11-06] MEDS: CHLORHEXIDINE GLUC 2% CLOTH 1 EACH TOWELETTE TOPICAL (08:48)
[2022-11-06] MEDS: proCHLORPERazine 10 MG/2 ML Vial 5 MG IV (08:48)
[2022-11-06] MEDS: 0.9% Saline Lock 10 ML Syringe IV ×3 (08:49→17:43)
[2022-11-06] MEDS: Latanoprost 0.005% 1 Bottle 1 DRP OPHTHALMIC (08:49)
[2022-11-06] MEDS: Dorzolamide HCL/Timolol 10 ml Bottle 1 DRP OPHTHALMIC ×2 (08:49→20:13)
[2022-11-06] MEDS: Menthol/Lanolin/Calamine/Znox 113 GM Tube 1 APPLIC TOPICAL ×2 (08:50→20:12)
[2022-11-06] MEDS: Insulin Glargine-YFGN 100 UNIT/ML Pen 15 UNIT SC (09:01)
--- NOTE | 2022-11-06 09:10 | PN.RENAL_ITS ---
Documented by User: ZELDA Watts 11/06/22 09:32 Subjective Subjective Extubated this morning. Sitting up in bed. No acute distress. Awake, alert. Objective Data Objective Data Vital Signs: Vital Signs Temp Pulse Resp BP Pulse Ox O2 Del Method O2 Flow Rate 97.6 F L 77 21 H 140/67 H 95 Room Air 2 11/06/22 09:00 11/06/22 09:00 11/06/22 09:00 11/06/22 09:00 11/06/22 09:00 11/06/22 09:00 11/02/22 04:45 FiO2 25 11/06/22 06:00 Oxygen Flow Rate (L/min) 2 Oxygen Delivery Method Room Air Weight: 65.3 kg Body Mass Index (BMI) 21.7 Intake & Output: Intake and Output for Last 24 Hours 11/04/22 11/05/22 11/06/22 23:59 23:59 23:59 Intake Total 2531.18 / 2573.18 1242.11 / 1309.91 239.0 / 239.0 Output Total 231 / 331 515 / 525 210 / 210 Balance 2300.18 / 2242.18 727.11 / 784.91 29.0 / 29.0 Medical Nutrition Assessment Dietitian: Malnutrition Criteria Met Start: 10/31/22 11:18 Freq: Status: Active Protocol: Document 11/02/22 09:55 SLA (Rec: 11/02/22 09:55 SLA [id number]) Nutrition Malnutrition Evidence of Malnutrition Exists Yes Malnutrition (severe): Acute Illness/Injury Evidenced By Suboptimal Energy Intake ( Severe),Weight Loss (Severe) Clinical Problem Acute Disease or Injury Related Malnutrition Etiology severe, acute malnutrition related to inadequate energy intake d/t nausea, PEG displacement Signs/Symptoms as evidenced by 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 Rec start at 30mL/ hour and increase by 15mL/hour every 8-12 hours as tolerated until goal rate is achieved. Rec continue reglan given suspected gastroparesis. 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 Daily wts. Lab / Micro Data Result Diagrams: 11/06/22 05:03 11/06/22 05:03 Labs: Laboratory Results - last 24 hr 11/05/22 12:06: POC Glucose 226 H 11/05/22 17:12: POC Glucose 156 H 11/06/22 00:22: POC Glucose 154 H 11/06/22 05:03: Random Vancomycin 21.2 H 11/06/22 05:03: WBC 6.1, RBC 2.93 L, Hgb 8.6 L, Hct 27.9 L, MCV 95.2 H, MCH 29.4, MCHC 30.8 L, RDW Std Deviation 48.2 H, RDW Coeff of Jenifer 13.8, Plt Count 237, MPV 9.5, Immature Gran % (Auto) 0.500, Neut % (Auto) 59.3, Lymph % (Auto) 22.1, [place] % (Auto) 6.3, Eos % (Auto) 10.1 H, Baso % (Auto) 1.7 H, Absolute Neuts (auto) 3.6, Absolute Lymphs (auto) 1.34, Nucleated RBC % 0 11/06/22 05:03: Sodium 141, Potassium 3.4 L, Chloride 107, Carbon Dioxide 25.0, Anion Gap 9, BUN 34 H, Creatinine 4.58 H, Estim Creat Clear Calc 16.24, Est GFR (MDRD) Af Amer 17 L, Est GFR (MDRD) Non-Af 14 L, BUN/Creatinine Ratio 7.4 L, Glucose 121 H, Calcium 7.4 L 11/06/22 06:36: POC Glucose 122 H Micro: Microbiology 11/03/22 07:55 Sputum, Induced/Lukens Gram Stain - Final 11/03/22 07:55 Sputum, Induced/Lukens Respiratory Culture - Final Mixed normal respiratory amparo. No Streptococcus pneumoniae, beta-hemolytic Streptococcus or Staphylococcus aureus isolated. 11/03/22 11:00 Blood Culture (Wb) - Central Line Blood Culture - Preliminary No growth in 48 hours. 11/03/22 11:00 Urine Catheter - Finley Urine Culture - Final Culture exhibits no growth. Physical Exam Narrative General: Intubated no apparent distress. HEENT: Normocephalic, atraumatic.?The patient is deaf. Heart: Normal S1, S2.? No rubs, murmurs or gallops. Lungs: Clear to auscultation bilaterally. Abdomen: Nondistended, normal bowel sounds, soft Extremities: No edema. Tunneled HD catheter dressing clean, dry and intact finley with scant yellow urine in bag Assessment & Plan Assessment/Plan (1) TREVOR (acute kidney injury): (2) CKD (chronic kidney disease): (3) HTN (hypertension): (4) Decreased left ventricular systolic function: (5) Macrocytic anemia: PLAN: Plan - Dialysis dependent Acute kidney injury on chronic kidney disease, unspecified stage. The patient was started on dialysis on 09/22/2022 because of refractory acute hypoxic respiratory failure due to volume overload, acidosis and severe azotemia. - Baseline renal function is unclear although there is a notation that serum creatinine was 1.60 mg/dL in 2020.? The last available serum creatinine in [facility] was from 04/22/2014 at 1.3 mg/dL.? Last available outpatient serum creatinine prior to the hospital admission in September 2022 was from February 2021 at 1.6 mg/dL. Suspect the patient has underlying diabetic kidney disease.? He is proteinuric in nephrotic range and has had longstanding, poorly controlled diabetes with retinopathy. It is possible that he has progressed to ESRD secondary to progression of progressive diabetic kidney disease in the setting of poorly controlled diabetes. We were never able to biopsy the kidney for definitive diagnosis and prognosis because of the patient's inability to tolerate the procedure. So far, there is no evidence of renal recovery.? The patient remains dialysis dependent with oliguria and increasing azotemia between dialysis. The plan is to pursue kidney biopsy if there is no recovery of renal function after 1-2 months on dialysis.? This can be done as an outpatient. - bps acceptable, not on pressor support at this time. -Has been off CRRT since Wednesday. Plan for HD today over 3.5 hours with UF as pt/bp tolerates. Chest x-ray did not show any fluid overload. Extubated today Documented by User: Dr. Aries Truong MD 11/06/22 14:21 Objective Data Lab / Micro Data Result Diagrams: 11/06/22 05:03 11/06/22 05:03 Assessment & Plan Assessment/Plan (1) TREVOR (acute kidney injury): (2) CKD (chronic kidney disease): (3) HTN (hypertension): (4) Decreased left ventricular systolic function: (5) Macrocytic anemia: PLAN: Plan - Dialysis dependent Acute kidney injury on chronic kidney disease, unspecified stage. The patient was started on dialysis on 09/22/2022 because of refractory acute hypoxic respiratory failure due to volume overload, acidosis and severe azotemia. - Baseline renal function is unclear although there is a notation that serum creatinine was 1.60 mg/dL in 2020.? The last available serum creatinine in [facility] was from 04/22/2014 at 1.3 mg/dL.? Last available outpatient serum creatinine prior to the hospital admission in September 2022 was from February 2021 at 1.6 mg/dL. Suspect the patient has underlying diabetic kidney disease.? He is proteinuric in nephrotic range and has had longstanding, poorly controlled diabetes with retinopathy. It is possible that he has progressed to ESRD secondary to progression of progressive diabetic kidney disease in the setting of poorly controlled diabetes. We were never able to biopsy the kidney for definitive diagnosis and prognosis because of the patient's inability to tolerate the procedure. So far, there is no evidence of renal recovery.? The patient remains dialysis dependent with oliguria and increasing azotemia between dialysis. The plan is to pursue kidney biopsy if there is no recovery of renal function after 1-2 months on dialysis.? This can be done as an outpatient. - bps acceptable, not on pressor support at this time. -Has been off CRRT since Wednesday. Plan for HD today over 3.5 hours with UF as pt/bp tolerates. Chest x-ray did not show any fluid overload. Extubated today Addendum seen on HD today. no new events. extubated. off pressors.
[2022-11-06 09:25] LABS: Bedside Glucose 149 mg/dL (74-106)
--- NOTE | 2022-11-06 10:17 | CASEMGMT ---
Addendum entered by Malena Pimentel 11/06/22 10:28: Social Work SW sent updates to [facility] via [facility], will follow up next week. ROSENDO Hays Original Note: Social Work SW participated in ICU rounds. Pt is here from [place], will need precert to return. As per physician pt will be here through the weekend. SW will send updates in [facility]. ROSENDO Hays
--- NOTE | 2022-11-06 10:49 | PN.HOSP_ITS ---
Objective Data Objective Data Vital Signs: Vital Signs Temp Pulse Resp BP Pulse Ox O2 Del Method O2 Flow Rate 97.5 F L 71 15 128/65 H 97 Room Air 2 11/06/22 10:00 11/06/22 10:00 11/06/22 10:00 11/06/22 10:00 11/06/22 10:00 11/06/22 10:00 11/02/22 04:45 FiO2 25 11/06/22 06:00 Oxygen Flow Rate (L/min) 2 Oxygen Delivery Method Room Air Weight: 143 lb 15.39 oz Body Mass Index (BMI) 21.7 Intake & Output: Intake and Output for Last 24 Hours 11/04/22 11/05/22 11/06/22 23:59 23:59 23:59 Intake Total 2531.18 / 2573.18 1242.11 / 1309.91 349.0 / 349.0 Output Total 231 / 331 515 / 525 210 / 210 Balance 2300.18 / 2242.18 727.11 / 784.91 139.0 / 139.0 Medical Nutrition Assessment Dietitian: Malnutrition Criteria Met Start: 10/31/22 11:18 Freq: Status: Active Protocol: Document 11/02/22 09:55 SLA (Rec: 11/02/22 09:55 SLA [id number]) Nutrition Malnutrition Evidence of Malnutrition Exists Yes Malnutrition (severe): Acute Illness/Injury Evidenced By Suboptimal Energy Intake ( Severe),Weight Loss (Severe) Clinical Problem Acute Disease or Injury Related Malnutrition Etiology severe, acute malnutrition related to inadequate energy intake d/t nausea, PEG displacement Signs/Symptoms as evidenced by 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 Rec start at 30mL/ hour and increase by 15mL/hour every 8-12 hours as tolerated until goal rate is achieved. Rec continue reglan given suspected gastroparesis. ENVIRONMENTAL COORDINATOR for ongoing ST. Daily wts. Lab / Micro Data Result Diagrams: 11/06/22 05:03 11/06/22 05:03 Labs: Laboratory Results - last 24 hr 11/05/22 12:06: POC Glucose 226 H 11/05/22 17:12: POC Glucose 156 H 11/06/22 00:22: POC Glucose 154 H 11/06/22 05:03: Random Vancomycin 21.2 H 11/06/22 05:03: WBC 6.1, RBC 2.93 L, Hgb 8.6 L, Hct 27.9 L, MCV 95.2 H, MCH 29.4, MCHC 30.8 L, RDW Std Deviation 48.2 H, RDW Coeff of Jenifer 13.8, Plt Count 237, MPV 9.5, Immature Gran % (Auto) 0.500, Neut % (Auto) 59.3, Lymph % (Auto) 22.1, [place] % (Auto) 6.3, Eos % (Auto) 10.1 H, Baso % (Auto) 1.7 H, Absolute Neuts (auto) 3.6, Absolute Lymphs (auto) 1.34, Nucleated RBC % 0 11/06/22 05:03: Sodium 141, Potassium 3.4 L, Chloride 107, Carbon Dioxide 25.0, Anion Gap 9, BUN 34 H, Creatinine 4.58 H, Estim Creat Clear Calc 16.24, Est GFR (MDRD) Af Amer 17 L, Est GFR (MDRD) Non-Af 14 L, BUN/Creatinine Ratio 7.4 L, Glucose 121 H, Calcium 7.4 L 11/06/22 06:36: POC Glucose 122 H 11/06/22 09:01: POC Glucose 149 H Micro: Microbiology 11/03/22 07:55 Sputum, Induced/Lukens Gram Stain - Final 11/03/22 07:55 Sputum, Induced/Lukens Respiratory Culture - Final Mixed normal respiratory amparo. No Streptococcus pneumoniae, beta-hemolytic Streptococcus or Staphylococcus aureus isolated. 11/03/22 11:00 Blood Culture (Wb) - Central Line Blood Culture - Preliminary No growth in 48 hours. 11/03/22 11:00 Urine Catheter - Lopez Urine Culture - Final Culture exhibits no growth. Physical Exam Narrative Physical exam General: Extubated in the morning. Eyes open. HEENT: Atraumatic, PERRLA, EOMI, Normocephalic, congenitally deaf Oral: Oral mucosa dry. Nonverbal. Neck: Right IJ TLC. Left permacath. Supple, No JVD, Negative Carotid Bruits Lungs: Air entry diminished in bilateral lung bases. On nasal cannula. Cardiovascular: Regular rate, Regular Rhythm, Normal S1, Normal S2, No murmurs Abdomen: PEG tube. Dressing is dry. No bleeding after 11/02 morning. : On hemodialysis. subclavian permacath. No renal angle tenderness. No suprapubic tenderness. Extremities: No edema, Capillary Refill Less than 3 Seconds Skin: No rashes, No breakdown Musculoskeletal: Soft restraints on wrists. No Tenderness to Palpation of Joints or Extremities, moderate muscle atrophy. Neurological: DTR 2+/4. Detailed neuro exam unobtainable. Psych/Mental Status: Flat affect Assessment & Plan Assessment/Plan (1) ABLA (acute blood loss anemia): (2) PEG tube malfunction: (3) Aspiration pneumonia: PLAN: Plan 1. Acute hypoxic respiratory failure most likely due to aspiration, multiple etiology: Patient is intubated on ventilator. Machining And Assembly Supervisor is consulted. Repeat chest x-ray individually reviewed. Lungs feels looks clear. ET tube right mid clavicular line. 11/06: Patient extubated in the morning. On nasal cannula. Patient has vomiting and GI is consulted. 2. DKA: Labs suggestive of high anion gap metabolic acidosis with pH 7.08. On restricted IV fluid and insulin drip. . Acute blood loss anemia secondary to pulling out a PEG tube ? GI consulted for an PEG tube replacement. PEG tube replaced but has blood clots under dressing. Transfuse PRBC with hemoglobin threshold of 8 g%. ? Continue with PPI 11/03: Hemoglobin dropped to 7.3, MCV 106 point. Platelet count 509,000. Transfuse 1 unit of PRBC. 11/04: Anion gap is closed. Patient metabolic acidosis improved. Bicarb is 31. Insulin drip was transitioned to Lantus and sliding scale insulin. 11/05: Glucose 230 in BMP. 11/06: Glucose is controlled between 120 to 150 mg/dL. 3. Septic shock, multifactorial due to suspected aspiration pneumonia, hypovolemia from DKA: Patient was started on Levophed drip on 11/02 and is still on it. Patient is not candidate for sepsis protocol for IV fluid as he had ischemic cardiomyopathy with recent non-STEMI and ischemic cardiomyopathy. 11/05: Patient is of Levophed drip since 3 AM. Monitor BP. Continue IV antibiotic 11/06: Patient maintaining blood pressure off Levophed. On IV antibiotic, Zosyn. 4. Acute blood loss anemia on anemia of chronic disease: Patient hemoglobin dropped to 6.7 and 2 unit transfused. Patient had EGD earlier which showed gastric ulcer with visible vessel, erosive esophagitis, gastroparesis on 11/01. 11/05: Posttransfusion hemoglobin 9 g. 11/06: Hemoglobin 8.6 g%. Next 5. Aspiration pneumonia/dysphagia ? Chest x-ray shows right lower lobe infiltrate with history of vomiting, dysphagia and aspiration raises suspicion of aspiration pneumonia, continue with Unasyn Probable gastroparesis 6. DM1/acute kidney injury on CKD unspecified stage with dialysis M, W, F ? Accu-Cheks ACH ? Sliding scale insulin ? Fence Rider consulted 11/04: Patient on CRRT as per dairy and food laboratory assistant recommendation 4. CAD/HTN/HLD ? On his previous admission between 09/16/2022 to for multiple reasons non-STEMI, DKA, acute kidney injury on CKD. At that time he had a cardiac cath which demonstrated multivessel disease and medical management was recommended at that time. continue with his aspirin, Plavix once okay with GI His second admission from October 21 to October 27 was for upper GI bleed. ? Continue with Lipitor and Coreg as well as Norvasc once his PEG tube was reinserted 5. Severe protein calorie malnutrition ? Consult nutrition Congenital deafness and congenital blindness as well as an inability to read does make communication very challenging and also complicates his care. DVT: SCDs Multiple comorbidities complicates the present care and expect difficult and delay recovery Discussed with manager case. Patient had 3 admissions since October with the first 1 more than a month during the first admission. Machining And Assembly Supervisor discussed with the family regarding CODE STATUS with patient and his stepson who is POA. He is DNR CC arrest with intubation Charges/Coding Visit Charges Inpatient E&M: 62685 Subs Hosp L3
[2022-11-06 12:00] LABS: Bedside Glucose 134 mg/dL (74-106)
--- NOTE | 2022-11-06 16:25 | PCM.PROGNOTE ---
Subjective Subjective I was called to see the patient at the bedside due to episodes of vomiting without provocation. He vomited about 150 cc of bilious fluid. His PEG tube was hooked up to low intermittent suction and not much came out. His tube feedings have been on hold and he completed a course of CVVHD. He is currently getting hemodialysis today as he is on a Wednesday schedule. He had a CT scan of the brain-it displayed mild cerebral atrophy with widening of the extra-axial spaces and ventricular dilatation.? He cannot tell me if he had any muscle cramps, headache, dizziness. Due to him being nonverbal. Objective Data Objective Data Vital Signs: Vital Signs Temp Pulse Resp BP Pulse Ox O2 Del Method O2 Flow Rate 97.7 F L 83 22 H 155/75 H 100 Room Air 2 11/06/22 16:00 11/06/22 16:00 11/06/22 16:00 11/06/22 16:00 11/06/22 16:00 11/06/22 16:00 11/02/22 04:45 FiO2 25 11/06/22 06:00 Oxygen Flow Rate (L/min) 2 Oxygen Delivery Method Room Air Weight: 143 lb 15.39 oz Body Mass Index (BMI) 21.7 Intake & Output: Intake and Output for Last 24 Hours 11/04/22 11/05/22 11/06/22 23:59 23:59 23:59 Intake Total 2531.18 / 2573.18 1242.11 / 1309.91 399.0 / 399.0 Output Total 231 / 331 515 / 525 650 / 650 Balance 2300.18 / 2242.18 727.11 / 784.91 -251.0 / -251.0 Medical Nutrition Assessment Dietitian: Malnutrition Criteria Met Start: 10/31/22 11:18 Freq: Status: Active Protocol: Document 11/06/22 16:19 RMA (Rec: 11/06/22 16:20 RMA [id number]) Nutrition Malnutrition Evidence of Malnutrition Exists Yes Malnutrition (severe): Acute Illness/Injury Evidenced By Suboptimal Energy Intake ( Severe),Weight Loss (Severe) Intake Problem Inadequate Oral Intake Etiology related to altered GI function /vomiting Signs/Symptoms as evidenced by NPO/holding PEG TF at this time Status Active Problem Clinical Problem Acute Disease or Injury Related Malnutrition Etiology severe, acute malnutrition related to inadequate energy intake d/t nausea, PEG displacement Signs/Symptoms as evidenced 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 Deleon's plan /recommendation for resuming enteral nutrition support. Pt to remain NPO and TF on hold for now. Daily weights. Lab / Micro Data Result Diagrams: 11/06/22 05:03 11/06/22 05:03 Labs: Laboratory Results - last 24 hr 11/05/22 17:12: POC Glucose 156 H 11/06/22 00:22: POC Glucose 154 H 11/06/22 05:03: Random Vancomycin 21.2 H 11/06/22 05:03: WBC 6.1, RBC 2.93 L, Hgb 8.6 L, Hct 27.9 L, MCV 95.2 H, MCH 29.4, MCHC 30.8 L, RDW Std Deviation 48.2 H, RDW Coeff of Jenifer 13.8, Plt Count 237, MPV 9.5, Immature Gran % (Auto) 0.500, Neut % (Auto) 59.3, Lymph % (Auto) 22.1, [place] % (Auto) 6.3, Eos % (Auto) 10.1 H, Baso % (Auto) 1.7 H, Absolute Neuts (auto) 3.6, Absolute Lymphs (auto) 1.34, Nucleated RBC % 0 11/06/22 05:03: Sodium 141, Potassium 3.4 L, Chloride 107, Carbon Dioxide 25.0, Anion Gap 9, BUN 34 H, Creatinine 4.58 H, Estim Creat Clear Calc 16.24, Est GFR (MDRD) Af Amer 17 L, Est GFR (MDRD) Non-Af 14 L, BUN/Creatinine Ratio 7.4 L, Glucose 121 H, Calcium 7.4 L 11/06/22 06:36: POC Glucose 122 H 11/06/22 09:01: POC Glucose 149 H 11/06/22 11:43: POC Glucose 134 H Micro: Microbiology 11/03/22 07:55 Sputum, Induced/Lukens Gram Stain - Final 11/03/22 07:55 Sputum, Induced/Lukens Respiratory Culture - Final Mixed normal respiratory amparo. No Streptococcus pneumoniae, beta-hemolytic Streptococcus or Staphylococcus aureus isolated. 11/03/22 11:00 Blood Culture (Wb) - Central Line Blood Culture - Preliminary No growth in 48 hours. 11/03/22 11:00 Urine Catheter - Lopez Urine Culture - Final Culture exhibits no growth. Physical Exam Narrative Physical exam General: Extubated in the morning. Eyes open. HEENT: Atraumatic, PERRLA, EOMI, Normocephalic, congenitally deaf Oral: Oral mucosa dry. Nonverbal. Neck: Right IJ TLC. Left permacath. Supple, No JVD, Negative Carotid Bruits Lungs: Air entry diminished in bilateral lung bases. On nasal cannula. Cardiovascular: Regular rate, Regular Rhythm, Normal S1, Normal S2, No murmurs Abdomen: PEG tube. Dressing is dry. No bleeding after 11/02 morning. : On hemodialysis. subclavian permacath. No renal angle tenderness. No suprapubic tenderness. Extremities: No edema, Capillary Refill Less than 3 Seconds Skin: No rashes, No breakdown Musculoskeletal: Soft restraints on wrists. No Tenderness to Palpation of Joints or Extremities, moderate muscle atrophy. Neurological: DTR 2+/4. Detailed neuro exam unobtainable. Psych/Mental Status: Flat affect Assessment & Plan Assessment/Plan (1) Vomiting: PLAN: The differential diagnosis includes rumination syndrome. This is a painless unprovoked contraction of the abdomen that resolves and vomiting. Regurgitation happens when digestive fluids and undigested food rise from the esophagus into the mouth. In adults, involuntary regurgitation is a symptom of conditions such as?acid reflux, GERD, and rumination syndrome. Therefore we should start him on a PPI drip and give him scheduled Reglan 5 mg IV every 6 hours along with azithromycin 500 mg daily. He is not obstructed because he had bowel movements and nothing was coming out of his PEG tube and it was sucked up to low intermittent suction. Also different diagnosis would be dialysis dyslipidemia syndrome. The initial presentation of vomiting, headache, dizziness, agitation, disorientation, confusion, muscle cramps and tremors are common in chronic dialysis patients. They are usually ascribed to excessive or aggressive ultrafiltration, and hyper- or hypotension. He recently stopped CVVHD treatment. And he is currently getting regular hemodialysis at this time. I will discuss this possibility with nephrology if this continues despite medical treatment that improves gastric emptying.? Charges/Coding Visit Charges Inpatient E&M: 26569 Subs Hosp L3
[2022-11-06] MEDS: Metoclopramide 10 MG/2 ML Vial 5 MG IV (17:43)
[2022-11-06] MEDS: Heparin 10,000 UNITS/10 ML Vial IV (17:50)
--- NOTE | 2022-11-06 18:04 | DIALYSIS ---
1800 Hemodialysis treatment x 3.5 hours, Net UF 800 ml. UF limited by change in BV% - decreased to <-12.0 within attempts to increase UFR. VSS. Blood returned to patient at end of treatment. HD catheter ports closed with heparin. RN report at bedside.
[2022-11-06 18:10] LABS: Bedside Glucose 78 mg/dL (74-106)
[2022-11-06] MEDS: Dext 5%-0.45% NS 1,000 ML 30 ML IV (18:49)
[2022-11-06] MEDS: Atorvastatin Calcium 40 MG Tablet GT (20:13)
[2022-11-06 20:41] LABS: Bedside Glucose 117 mg/dL (74-106)
[2022-11-07] VITALS (13 sets, daily range): BP systolic 145–173; BP diastolic 69–111; PULSE 72–96; RESP 16–21; TEMP 36.4–36.9; O2SAT 94–98
[2022-11-07] MEDS: Metoclopramide 10 MG/2 ML Vial 5 MG IV ×4 (00:07→17:49)
[2022-11-07] MEDS: 0.9% Saline Lock 10 ML Syringe IV ×2 (00:07→05:02)
[2022-11-07 00:30] LABS: Bedside Glucose 132 mg/dL (74-106)
[2022-11-07] MEDS: Insulin Lispro 100 UNIT/ML INSULN.PEN SC ×4 (05:04→23:09)
[2022-11-07 05:10] LABS: Absolute Lymphocyte Count 0.98 X10^3/uL (0.83-4.51); Absolute Neutrophil Count 5.3 X10^3/uL (2.0-7.7); Basophil# 0.07 X10^3/uL; Basophil% 0.9 % (0-1); Eosinophil# 0.53 X10^3/uL; Eosinophils% 7.2 % (0-5); Hematocrit 31.1 % (40-54); Hemoglobin 9.8 g/dL (13.0-16.5); Lymphocyte # 0.98 X10^3/ul (0.83-4.51); Lymphocyte % 13.3 % (19-41); Mean Corp Hgb Conc 31.5 g/dL (32-36); Mean Corpuscular Hgb 29.6 pg (27.0-32.0); Mean Platelet Vol. 9.6 fl (6.2-12.0); Monocyte# 0.45 X10^3/uL; Monocyte% 6.1 % (0-10); NRBC Flagged by Analyzer 0 % (0-5); Neutrophil # 5.31 X10^3/uL (2.7-7.7); Neutrophil % 72.1 % (47-70); Platelet Count 224 K/mm3 (150-450); RBC Distribution Width CV 12.9 % (11.6-14.6); RBC Distribution Width SD 44.6 fl (35.1-43.9); Red Blood Count 3.31 M/mm3 (4.6-6.2); White Blood Count 7.4 K/mm3 (4.4-11.0)
[2022-11-07 05:26] LABS: Bedside Glucose 162 mg/dL (74-106)
[2022-11-07 05:26] LABS: ALB/GLOB Ratio 0.3 RATIO (0.9-2.4); AST(SGOT) 21 U/L (15-37); Alanine Aminotransfer ALT/SGPT 8 U/L (16-61); Albumin, Serum 1.4 g/dL (3.2-5.0); Alkaline Phosphatase 70 U/L (45-117); Anion Gap 9 (5-15); BUN 12 mg/dL (7-18); BUN/Creat Ratio 4.3 RATIO (10-20); Calcium,Total 7.4 mg/dL (8.5-10.1); Chloride 102 mmol/L (98-107); Creatinine, Serum 2.82 mg/dL (0.70-1.30); EST Glomerular Filtration Rate 25 mL/min (>60); Est Glom Filt Rate - Afr Amer 30 mL/min (>60); Estimated Creatinine Clearance 26.37 ml/min; Globulin 5.1 g/dL (2.2-4.2); Glucose 183 mg/dL (74-106); Potassium 3.6 mmol/L (3.5-5.1); Protein, Total 6.5 g/dL (6.4-8.2); Sodium Level 139 mmol/L (136-145)
--- NOTE | 2022-11-07 06:11 | PN.CC_ITS ---
Assessment & Plan Assessment/Plan (1) Acute respiratory failure: PLAN: Plan RECOMMENDATIONS: 1. Continue empiric antimicrobials to complete 7-day treatment course. 2. Continue to monitor H&H daily and transfuse if hemoglobin drops below 7 g/dL. 3. Continue basal and sliding scale insulin coverage. 4. Ongoing dialysis support per nephrology. 5. Continue appropriate GI prophylaxis. 6. The patient is medically stable for transfer out of the intensive care unit. IMPRESSIONS: 1. Acute hypoxemic respiratory failure I do suspect that the patient's respiratory failure was likely multifactorial in etiology. The patient developed nausea and intractable emesis with subsequent aspiration of gastric contents. In addition, the patient appeared to have developed DKA, which led to the development of a significant metabolic acidosis. Unfortunately, the patient unable to compensate from a respiratory perspective for his underlying metabolic derangements. The patient was ultimately transferred to the intensive care unit and intubated for airway protection. With supportive measures, the patient improved clinically and was able to be extubated on November 06. He is doing well from a respiratory perspective on room air. Plan to continue empiric antimicrobials as ordered. 2. Profound metabolic acidosis in the setting of DKA Improved. The patient developed a significant anion gap metabolic acidosis in the setting of DKA and was notably acidotic. With supportive care, including CRRT and bicarbonate containing fluids, the patient's acidosis is resolved. The patient will be continued on basal and sliding scale insulin coverage. His blood glucose levels will be monitored closely. 3. Multifactorial shock Resolved. Most likely a combination of hypovolemia in the setting of DKA combined with septic shock related to aspiration pneumonia. The patient is not going to receive full sepsis fluid resuscitation, given his underlying ischemic cardiomyopathy and depressed ejection fraction. The patient has been weaned from vasopressor support and remains hemodynamically stable. 4. Blood loss anemia secondary to bleeding gastric ulcer status post treatment Continue to monitor H&H daily. Transfuse if hemoglobin drops below 7 g/dL. Continue PPI therapy as ordered. 5. Acute on chronic kidney disease Concern for progression to end-stage renal disease. Nephrology is following to assist with hemodialysis needs. 6. History of ischemic cardiomyopathy/diabetes mellitus/hypertension/hy perlipidemia Complicates care, management, recovery and prognosis. The patient will ulti mately require surgical revascularization of his underlying coronary disease. This note was generated with [employer] software. It may contain incorrect words, spelling, and punctuation that were not noted in checking the note before signing. Subjective Subjective The patient was seen and examined at the bedside this morning. Events from the last 24 hours have been reviewed. The patient is currently afebrile, he modynamically stable and maintaining appropriate oxygen saturations on room air. The patient has done well from a respiratory perspective after being extubated yesterday. He does continue to have periodic episodes of nausea and emesis. Objective Data Objective Data The patient's most recent lab work, culture data and imaging studies have all been personally reviewed. Blood, urine and sputum cultures have not demonstra tobi any growth to date. Vital Signs: Vital Signs Temp Pulse Resp BP Pulse Ox O2 Del Method O2 Flow Rate 97.5 F L 74 19 H 163/75 H 96 Room Air 2 11/07/22 04:00 11/07/22 04:00 11/07/22 04:00 11/07/22 04:00 11/07/22 04:00 11/07/22 04:00 11/02/22 04:45 FiO2 25 11/06/22 06:00 Oxygen Flow Rate (L/min) 2 Oxygen Delivery Method Room Air Weight: 140 lb 10.479 oz Body Mass Index (BMI) 21.7 Intake & Output: Intake and Output for Last 24 Hours 11/05/22 11/06/22 11/07/22 23:59 23:59 23:59 Intake Total 1242.11 / 1309.91 838.33 / 838.33 146.5 / 146.5 Output Total 515 / 525 1850 / 2000 600 / 600 Balance 727.11 / 784.91 -1011.67 / -1161.67 -453.5 / -453.5 Medical Nutrition Assessment Dietitian: Malnutrition Criteria Met Start: 10/31/22 11:18 Freq: Status: Active Protocol: Document 11/06/22 16:19 RMA (Rec: 11/06/22 16:20 RMA [id number]) Nutrition Malnutrition Evidence of Malnutrition Exists Yes Malnutrition (severe): Acute Illness/Injury Evidenced By Suboptimal Energy Intake ( Severe),Weight Loss (Severe) Intake Problem Inadequate Oral Intake Etiology related to altered GI function /vomiting Signs/Symptoms as evidenced by NPO/holding PEG TF at this time Status Active Problem Clinical Problem Acute Disease or Injury Related Malnutrition Etiology severe, acute malnutrition related to inadequate energy intake d/t nausea, PEG displacement Signs/Symptoms as evidenced 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 Deleon's plan /recommendation for resuming enteral nutrition support. Pt to remain NPO and TF on hold for now. Daily weights. Lab / Micro Data Attestation: I reviewed the patient's lab results. Result Diagrams: 11/07/22 05:00 11/07/22 05:00 Labs: Laboratory Results - last 24 hr 11/06/22 06:36: POC Glucose 122 H 11/06/22 09:01: POC Glucose 149 H 11/06/22 11:43: POC Glucose 134 H 11/06/22 17:49: POC Glucose 78 11/06/22 20:16: POC Glucose 117 H 11/07/22 00:06: POC Glucose 132 H 11/07/22 05:00: WBC 7.4, RBC 3.31 L, Hgb 9.8 L, Hct 31.1 L, MCV 94.0, MCH 29.6, MCHC 31.5 L, RDW Std Deviation 44.6 H, RDW Coeff of Jenifer 12.9, Plt Count 224, MPV 9.6, Immature Gran % (Auto) 0.400, Neut % (Auto) 72.1 H, Lymph % (Auto) 13.3 L, [place] % (Auto) 6.1, Eos % (Auto) 7.2 H, Baso % (Auto) 0.9, Absolute Neuts (auto) 5.3, Absolute Lymphs (auto) 0.98, Nucleated RBC % 0 11/07/22 05:00: Sodium 139, Potassium 3.6, Chloride 102, Carbon Dioxide 28.0, Anion Gap 9, BUN 12, Creatinine 2.82 H, Estim Creat Clear Calc 26.37, Est GFR (MDRD) Af Amer 30 L, Est GFR (MDRD) Non-Af 25 L, BUN/Creatinine Ratio 4.3 L, Glucose 183 H, Calcium 7.4 L, Total Bilirubin 0.30, AST 21, ALT 8 L, Alkaline Phosphatase 70, Total Protein 6.5, Albumin 1.4 L, Globulin 5.1 H, Albumin/Globulin Ratio 0.3 L 11/07/22 05:01: POC Glucose 162 H Micro: Microbiology 11/03/22 07:55 Sputum, Induced/Lukens Gram Stain - Final 11/03/22 07:55 Sputum, Induced/Lukens Respiratory Culture - Final Mixed normal respiratory amparo. No Streptococcus pneumoniae, beta-hemolytic Streptococcus or Staphylococcus aureus isolated. 11/03/22 11:00 Blood Culture (Wb) - Central Line Blood Culture - Preliminary No growth in 48 hours. 11/03/22 11:00 Urine Catheter - Lopez Urine Culture - Final Culture exhibits no growth. ABG Data ABG results: ABG 11/03/22 11/03/22 07:10 08:57 Specimen Type ART ART Sample Site L Brach R Brach pH 7.08 L* 6.84 L* Bicarbonate Actual 3.1 L 3.7 L Total CO2 < 5 < 5 Base Excess -27 L < -30 L O2 Saturation 99 93 L O2 % 35 30 ABG pCO2 10.4 L* 21.7 L ABG pO2 155 H 115 H Kev Test Positive Positive Respiration Rate 12 12 O2 Delivery Device BiPAP Adult Vent Vent Mode BiLevel AC Tidal Volume 400 POC PEEP 5 Crit Call To/Read Back Yes Yes Blood Gas Notified Whom eligio pineda Clinical Comments 09/17 Radiography Diagnostic Testing: Radiology Impression Brain CT 11/05/22 06:50 IMPRESSION: Chronic involutional changes of the brain. N.B. : The above Results were Read Back by Eleazar Farrar MD to JAMIL PINEDA and understanding confirmed on 11/05/2022 08:17:17 (ET). Electronically Signed: Eleazar Farrar MD at 8:18 EST , ADDENDUM: 11/05/22 0825 IMPRESSION: Chronic involutional changes of the brain. N.B. : The above Results were Read Back by Eleazar Farrar MD to JAMIL PINEDA and understanding confirmed on 11/05/2022 08:17:17 (ET). Electronically Signed: Eleazar Farrar MD at 8:18 EST , Physical Exam Const alert and no apparent distress General Appearance: cooperative and comfortable HEENT normocephalic and head/scalp atraumatic General Ear: hearing grossly impaired Eyes PERRL Neck supple General: trachea midline and CVC in place Chest inspection of chest normal Resp Auscultation: diminished lung sounds; Negative for rales, rhonchi or wheezes Cardio regular rate and regular rhythm GI soft to palpation and non-tender Inspection: GI tube present Extremity no clubbing, cyanosis or edema Skin no rashes or lesions noted Neuro Neuro Narrative: Residual right-sided weakness without any new focal deficits. Psych Mood & Affect: flat affect Charges/Coding Visit Charges Inpatient E&M: 07580 Subs Hosp L3
[2022-11-07] MEDS: Menthol/Lanolin/Calamine/Znox 113 GM Tube 1 APPLIC TOPICAL ×2 (08:55→23:07)
[2022-11-07] MEDS: CHLORHEXIDINE GLUC 2% CLOTH 1 EACH TOWELETTE TOPICAL (08:55)
[2022-11-07] MEDS: Dorzolamide HCL/Timolol 10 ml Bottle 1 DRP OPHTHALMIC ×2 (08:56→23:07)
[2022-11-07] MEDS: Insulin Glargine-YFGN 100 UNIT/ML Pen 15 UNIT SC ×2 (08:56→23:08)
[2022-11-07] MEDS: Vital AF 1.2 Cal Liquid 1,000 ML 10 ML GT (08:56)
[2022-11-07] MEDS: Latanoprost 0.005% 1 Bottle 1 DRP OPHTHALMIC (08:56)
[2022-11-07] MEDS: Clopidogrel Bisulfate 75 MG Tablet GT (08:56)
--- NOTE | 2022-11-07 11:26 | PCM.PN.HOSP ---
Objective Data Objective Data Vital Signs: Vital Signs Temp Pulse Resp BP Pulse Ox O2 Del Method O2 Flow Rate 97.5 F L 76 16 158/72 H 98 Room Air 2 11/07/22 04:00 11/07/22 07:00 11/07/22 07:00 11/07/22 07:00 11/07/22 07:00 11/07/22 08:00 11/02/22 04:45 FiO2 25 11/06/22 06:00 Oxygen Flow Rate (L/min) 2 Oxygen Delivery Method Room Air Weight: 140 lb 10.479 oz Body Mass Index (BMI) 21.7 Intake & Output: Intake and Output for Last 24 Hours 11/05/22 11/06/22 11/07/22 23:59 23:59 23:59 Intake Total 1242.11 / 1309.91 838.33 / 838.33 944.5 / 944.5 Output Total 515 / 525 1850 / 2000 725 / 725 Balance 727.11 / 784.91 -1011.67 / -1161.67 219.5 / 219.5 Medical Nutrition Assessment Dietitian: Malnutrition Criteria Met Start: 10/31/22 11:18 Freq: Status: Active Protocol: Document 11/06/22 16:19 RMA (Rec: 11/06/22 16:20 RMA [id number]) Nutrition Malnutrition Evidence of Malnutrition Exists Yes Malnutrition (severe): Acute Illness/Injury Evidenced By Suboptimal Energy Intake ( Severe),Weight Loss (Severe) Intake Problem Inadequate Oral Intake Etiology related to altered GI function /vomiting Signs/Symptoms as evidenced by NPO/holding PEG TF at this time Status Active Problem Clinical Problem Acute Disease or Injury Related Malnutrition Etiology severe, acute malnutrition related to inadequate energy intake d/t nausea, PEG displacement Signs/Symptoms as evidenced 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 Deleon's plan /recommendation for resuming enteral nutrition support. Pt to remain NPO and TF on hold for now. Daily weights. Lab / Micro Data Result Diagrams: 11/07/22 05:00 11/07/22 05:00 Labs: Laboratory Results - last 24 hr 11/06/22 11:43: POC Glucose 134 H 11/06/22 17:49: POC Glucose 78 11/06/22 20:16: POC Glucose 117 H 11/07/22 00:06: POC Glucose 132 H 11/07/22 05:00: WBC 7.4, RBC 3.31 L, Hgb 9.8 L, Hct 31.1 L, MCV 94.0, MCH 29.6, MCHC 31.5 L, RDW Std Deviation 44.6 H, RDW Coeff of Jenifer 12.9, Plt Count 224, MPV 9.6, Immature Gran % (Auto) 0.400, Neut % (Auto) 72.1 H, Lymph % (Auto) 13.3 L, [place] % (Auto) 6.1, Eos % (Auto) 7.2 H, Baso % (Auto) 0.9, Absolute Neuts (auto) 5.3, Absolute Lymphs (auto) 0.98, Nucleated RBC % 0 11/07/22 05:00: Sodium 139, Potassium 3.6, Chloride 102, Carbon Dioxide 28.0, Anion Gap 9, BUN 12, Creatinine 2.82 H, Estim Creat Clear Calc 26.37, Est GFR (MDRD) Af Amer 30 L, Est GFR (MDRD) Non-Af 25 L, BUN/Creatinine Ratio 4.3 L, Glucose 183 H, Calcium 7.4 L, Total Bilirubin 0.30, AST 21, ALT 8 L, Alkaline Phosphatase 70, Total Protein 6.5, Albumin 1.4 L, Globulin 5.1 H, Albumin/Globulin Ratio 0.3 L 11/07/22 05:01: POC Glucose 162 H Micro: Microbiology 11/04/22 09:03 Stool Stool Occult Blood (JORDI) - Final 11/03/22 07:55 Sputum, Induced/Lukens Gram Stain - Final 11/03/22 07:55 Sputum, Induced/Lukens Respiratory Culture - Final Mixed normal respiratory amparo. No Streptococcus pneumoniae, beta-hemolytic Streptococcus or Staphylococcus aureus isolated. 11/03/22 11:00 Blood Culture (Wb) - Central Line Blood Culture - Preliminary No growth in 48 hours. 11/03/22 11:00 Urine Catheter - Lopez Urine Culture - Final Culture exhibits no growth. Physical Exam Narrative Physical exam General: Extubated on 11/06. Eyes open. On room air. HEENT: Atraumatic, PERRLA, EOMI, Normocephalic, congenitally deaf Oral: Oral mucosa dry. Nonverbal. Neck: Right IJ TLC. Left permacath. Supple, No JVD, Negative Carotid Bruits Lungs: Air entry diminished in bilateral lung bases. On room air. No hypoxia. Cardiovascular: Regular rate, Regular Rhythm, Normal S1, Normal S2, No murmurs Abdomen: PEG tube. Dressing is dry. No bleeding after 11/02 morning. : On hemodialysis. subclavian permacath. No renal angle tenderness. No suprapubic tenderness. Extremities: No edema, Capillary Refill Less than 3 Seconds Skin: No rashes, No breakdown Musculoskeletal:No Tenderness to Palpation of Joints or Extremities, moderate muscle atrophy. Neurological: DTR 2+/4. Detailed neuro exam unobtainable. Psych/Mental Status: Flat affect Assessment & Plan Assessment/Plan (1) ABLA (acute blood loss anemia): (2) PEG tube malfunction: (3) Aspiration pneumonia: PLAN: Plan 1. Acute hypoxic respiratory failure most likely due to aspiration, multiple etiology: Patient is intubated on ventilator. Chemical Engineering Technologist is consulted. Repeat chest x-ray individually reviewed. Lungs feels looks clear. ET tube right midclavicular line. 11/06: Patient extubated in the morning. On nasal cannula. Patient has vomiting and GI is consulted. 11/07: Patient is being transferred to PCU. Tube feed is started at 10 mL/min. 2. DKA: Labs suggestive of high anion gap metabolic acidosis with pH 7.08. On restricted IV fluid and insulin drip. . Acute blood loss anemia secondary to pulling out a PEG tube ? GI consulted for an PEG tube replacement. PEG tube replaced but has blood clots under dressing. Transfuse PRBC with hemoglobin threshold of 8 g%. ? Continue with PPI 11/03: Hemoglobin dropped to 7.3, MCV 106 point. Platelet count 509,000. Transfuse 1 unit of PRBC. 11/04: Anion gap is closed. Patient metabolic acidosis improved. Bicarb is 31. Insulin drip was transitioned to Lantus and sliding scale insulin. 11/05: Glucose 230 in BMP. 11/06: Glucose is controlled between 120 to 150 mg/dL. 11/07 glucose 183, A1c 6.9%. 3. Septic shock, multifactorial due to suspected aspiration pneumonia, hypovolemia from DKA: Patient was started on Levophed drip on 11/02 and is still on it. Patient is not candidate for sepsis protocol for IV fluid as he had ischemic cardiomyopathy with recent non-STEMI and ischemic cardiomyopathy. 11/05: Patient is of Levophed drip since 3 AM. Monitor BP. Continue IV antibiotic 11/06: Patient maintaining blood pressure off Levophed. On IV antibiotic, Zosyn. 4. Acute blood loss anemia on anemia of chronic disease: Patient hemoglobin dropped to 6.7 and 2 unit transfused. Patient had EGD earlier which showed gastric ulcer with visible vessel, erosive esophagitis, gastroparesis on 11/01/2022. 11/05: Posttransfusion hemoglobin 9 g. 11/06: Hemoglobin 8.6 g%. 11/07: On continuous PPI drip. Hemoglobin 9.8. 5. Aspiration pneumonia/dysphagia ? Chest x-ray shows right lower lobe infiltrate with history of vomiting, dysphagia and aspiration raises suspicion of aspiration pneumonia, continue with Unasyn Probable gastroparesis 6. DM1/acute kidney injury on CKD unspecified stage with dialysis M, W, F ? Accu-Cheks ACH ? Sliding scale insulin ? Video System Repairer consulted 11/04: Patient on CRRT as per mechanical research engineer recommendation 4. CAD/HTN/HLD ? On his previous admission between 09/16/2022 to for multiple reasons non-STEMI, DKA, acute kidney injury on CKD. At that time he had a cardiac cath which demonstrated multivessel disease and medical management was recommended at that time. continue with his aspirin, Plavix once okay with GI His second admission from October 21 to October 27 was for upper GI bleed. ? Continue with Lipitor and Coreg as well as Norvasc once his PEG tube was reinserted 5. Severe protein calorie malnutrition ? Consult nutrition Congenital deafness and congenital blindness as well as an inability to read does make communication very challenging and also complicates his care. DVT: SCDs Multiple comorbidities complicates the present care and expect difficult and delay recovery Discussed with senior case manager. Patient had 3 admissions since October with the first 1 more than a month during the first admission. Chemical Engineering Technologist discussed with the family regarding CODE STATUS with patient and his stepson who is POA. He is DNR CC arrest with intubation Charges/Coding Visit Charges Inpatient E&M: 09203 Subs Hosp L2
[2022-11-07 11:56] LABS: Bedside Glucose 302 mg/dL (74-106)
--- NOTE | 2022-11-07 15:58 | PCM.PN.REN ---
Subjective Subjective Following for dialysis dependent TREVOR on CKD. The patient is deaf, so ROS is limited. He denies chest pain or shortness of breath. There is no nausea or vomiting. Objective Data Objective Data Vital Signs: Vital Signs Temp Pulse Resp BP Pulse Ox O2 Del Method O2 Flow Rate 97.6 F L 74 20 H 157/78 H 96 Room Air 2 11/07/22 12:00 11/07/22 12:00 11/07/22 12:00 11/07/22 12:00 11/07/22 13:51 11/07/22 13:51 11/02/22 04:45 FiO2 25 11/06/22 06:00 Oxygen Flow Rate (L/min) 2 Oxygen Delivery Method Room Air Weight: 63.8 kg Body Mass Index (BMI) 21.7 Intake & Output: Intake and Output for Last 24 Hours 11/05/22 11/06/22 11/07/22 23:59 23:59 23:59 Intake Total 1242.11 / 1309.91 838.33 / 838.33 1044.5 / 1044.5 Output Total 515 / 525 185 / 2000 725 / 725 Balance 727.11 / 784.91 -1011.67 / -1161.67 319.5 / 319.5 Medical Nutrition Assessment Dietitian: Malnutrition Criteria Met Start: 10/31/22 11:18 Freq: Status: Active Protocol: Document 11/06/22 16:19 RMA (Rec: 11/06/22 16:20 RMA [id number]) Nutrition Malnutrition Evidence of Malnutrition Exists Yes Malnutrition (severe): Acute Illness/Injury Evidenced By Suboptimal Energy Intake ( Severe),Weight Loss (Severe) Intake Problem Inadequate Oral Intake Etiology related to altered GI function /vomiting Signs/Symptoms as evidenced by NPO/holding PEG TF at this time Status Active Problem Clinical Problem Acute Disease or Injury Related Malnutrition Etiology severe, acute malnutrition related to inadequate energy intake d/t nausea, PEG displacement Signs/Symptoms as evidenced 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 Deleon's plan /recommendation for resuming enteral nutrition support. Pt to remain NPO and TF on hold for now. Daily weights. Lab / Micro Data Result Diagrams: 11/07/22 05:00 11/07/22 05:00 Labs: Laboratory Results - last 24 hr 11/06/22 17:49: POC Glucose 78 11/06/22 20:16: POC Glucose 117 H 11/07/22 00:06: POC Glucose 132 H 11/07/22 05:00: WBC 7.4, RBC 3.31 L, Hgb 9.8 L, Hct 31.1 L, MCV 94.0, MCH 29.6, MCHC 31.5 L, RDW Std Deviation 44.6 H, RDW Coeff of Jenifer 12.9, Plt Count 224, MPV 9.6, Immature Gran % (Auto) 0.400, Neut % (Auto) 72.1 H, Lymph % (Auto) 13.3 L, [place] % (Auto) 6.1, Eos % (Auto) 7.2 H, Baso % (Auto) 0.9, Absolute Neuts (auto) 5.3, Absolute Lymphs (auto) 0.98, Nucleated RBC % 0 11/07/22 05:00: Sodium 139, Potassium 3.6, Chloride 102, Carbon Dioxide 28.0, Anion Gap 9, BUN 12, Creatinine 2.82 H, Estim Creat Clear Calc 26.37, Est GFR (MDRD) Af Amer 30 L, Est GFR (MDRD) Non-Af 25 L, BUN/Creatinine Ratio 4.3 L, Glucose 183 H, Calcium 7.4 L, Total Bilirubin 0.30, AST 21, ALT 8 L, Alkaline Phosphatase 70, Total Protein 6.5, Albumin 1.4 L, Globulin 5.1 H, Albumin/Globulin Ratio 0.3 L 11/07/22 05:01: POC Glucose 162 H 11/07/22 11:32: POC Glucose 302 H Micro: Microbiology 11/04/22 09:03 Stool Stool Occult Blood (JORDI) - Final 11/03/22 07:55 Sputum, Induced/Lukens Gram Stain - Final 11/03/22 07:55 Sputum, Induced/Lukens Respiratory Culture - Final Mixed normal respiratory amparo. No Streptococcus pneumoniae, beta-hemolytic Streptococcus or Staphylococcus aureus isolated. 11/03/22 11:00 Blood Culture (Wb) - Central Line Blood Culture - Preliminary No growth in 48 hours. 11/03/22 11:00 Urine Catheter - Lopez Urine Culture - Final Culture exhibits no growth. Physical Exam Narrative General: No apparent distress. HEENT: Normocephalic, atraumatic.?The patient is deaf. Heart: Normal S1, S2.? No rubs, murmurs or gallops. Lungs: Clear to auscultation anteriorly. Abdomen: Nondistended, normal bowel sounds, soft Extremities: No edema. Tunneled HD catheter dressing clean, dry and intact. Assessment & Plan Assessment/Plan (1) TREVOR (acute kidney injury): (2) CKD (chronic kidney disease): (3) HTN (hypertension): (4) Decreased left ventricular systolic function: (5) Macrocytic anemia: PLAN: Plan Impression/Plan: The patient is a 57-year-old man with past history of type 1 diabetes mellitus, hypertension, CAD, congenital deafness, prior stroke, and chronic kidney disease who was recently admitted to this hospital between 09/16/2022 until 10/19/2022 for DKA, hypertensive emergency, NSTEMI, acute hypoxic respiratory failure requiring temporary mechanical ventilator, and acute kidney injury on chronic kidney disease.? The patient has had a progressive loss of renal function and was started on dialysis on 09/22/2022.? The patient was readmitted to the hospital between 10/21/2022 until 10/27/2022 with upper GI bleed.? He returns again to the hospital on 10/30/2022 with dislodgment of his PEG tube.? He developed acute on chronic respiratory failure requiring intubation during this admission. He is now off ventilator and back on PCU. Nephrology is following for dialysis dependent TREVOR on CKD. Acute kidney injury on chronic kidney disease, unspecified stage. The patient was started on dialysis on 09/22/2022 because of refractory acute hypoxic respiratory failure, volume overload, acidosis, and severe azotemia. He has been dialysis dependent since then without signs of recovery. Baseline serum creatinine is unknown but was 1.6 mg/dL in 2020. Prior to this admission, the patient had been on outpatient dialysis at [facility] on MWF schedule. The patient decompensated overnight on 11/02/2022. He was intubated and required IV vasopressor. Therefore, he required CRRT until 11/04/2022. He is back on MWF IHD schedule. The patient tolerated IHD well yesterday. No need for dialysis today. Next dialysis is scheduled for 11/09/2022. Hypertension. The patient has labile BP. BP was as high as 207/124 on 09/16/2022. There was a transient period of hypotension requiring IV vasopressor earlier this week. Current BP is acceptable off of antihypertensive. Continue to monitor BP without medications for now. CAD with heart failure with reduced ejection fraction?presumably from systolic dysfunction related to ischemia. The patient appears to be compensated. Will continue to remove fluid with dialysis. Anemia. Hemoglobin is low but stable at 9.8 g/dL today.? Hemoglobin was low as 6.7 g/dL on 11/04/2022. He is status post PRBC transfusion on 11/04/2022. We will continue IV iron and INOCENCIO with dialysis at outpatient kidney center. Acute on chronic hypoxic respiratory failure. Improved since 11/02/2022. He is off of ventilator and appears to be compensated today. The patient is on antimicrobial as directed by primary service. Continue to keep O>I with ultrafiltration during dialysis.
--- NOTE | 2022-11-07 16:54 | PCM.PROGNOTE ---
Subjective Subjective Patient had episodes of dry heaving overnight but did not vomit. He cannot give good history. Objective Data Objective Data Vital Signs: Vital Signs Temp Pulse Resp BP Pulse Ox O2 Del Method O2 Flow Rate 97.6 F L 74 20 H 157/78 H 96 Room Air 2 11/07/22 12:00 11/07/22 12:00 11/07/22 12:00 11/07/22 12:00 11/07/22 13:51 11/07/22 13:51 11/02/22 04:45 FiO2 25 11/06/22 06:00 Oxygen Flow Rate (L/min) 2 Oxygen Delivery Method Room Air Weight: 140 lb 10.479 oz Body Mass Index (BMI) 21.7 Intake & Output: Intake and Output for Last 24 Hours 11/05/22 11/06/22 11/07/22 23:59 23:59 23:59 Intake Total 1242.11 / 1309.91 838.33 / 838.33 1044.5 / 1044.5 Output Total 515 / 525 1849 / 1999 725 / 725 Balance 727.11 / 784.91 -1011.67 / -1161.67 319.5 / 319.5 Medical Nutrition Assessment Dietitian: Malnutrition Criteria Met Start: 10/31/22 11:18 Freq: Status: Active Protocol: Document 11/06/22 16:19 RMA (Rec: 11/06/22 16:20 RMA [id number]) Nutrition Malnutrition Evidence of Malnutrition Exists Yes Malnutrition (severe): Acute Illness/Injury Evidenced By Suboptimal Energy Intake ( Severe),Weight Loss (Severe) Intake Problem Inadequate Oral Intake Etiology related to altered GI function /vomiting Signs/Symptoms as evidenced by NPO/holding PEG TF at this time Status Active Problem Clinical Problem Acute Disease or Injury Related Malnutrition Etiology severe, acute malnutrition related to inadequate energy intake d/t nausea, PEG displacement Signs/Symptoms as 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 Deleon's plan /recommendation for resuming enteral nutrition support. Pt to remain NPO and TF on hold for now. Daily weights. Lab / Micro Data Result Diagrams: 11/07/22 05:00 11/07/22 05:00 Labs: Laboratory Results - last 24 hr 11/06/22 17:49: POC Glucose 78 11/06/22 20:16: POC Glucose 117 H 11/07/22 00:06: POC Glucose 132 H 11/07/22 05:00: WBC 7.4, RBC 3.31 L, Hgb 9.8 L, Hct 31.1 L, MCV 94.0, MCH 29.6, MCHC 31.5 L, RDW Std Deviation 44.6 H, RDW Coeff of Jenifer 12.9, Plt Count 224, MPV 9.6, Immature Gran % (Auto) 0.400, Neut % (Auto) 72.1 H, Lymph % (Auto) 13.3 L, [place] % (Auto) 6.1, Eos % (Auto) 7.2 H, Baso % (Auto) 0.9, Absolute Neuts (auto) 5.3, Absolute Lymphs (auto) 0.98, Nucleated RBC % 0 11/07/22 05:00: Sodium 139, Potassium 3.6, Chloride 102, Carbon Dioxide 28.0, Anion Gap 9, BUN 12, Creatinine 2.82 H, Estim Creat Clear Calc 26.37, Est GFR (MDRD) Af Amer 30 L, Est GFR (MDRD) Non-Af 25 L, BUN/Creatinine Ratio 4.3 L, Glucose 183 H, Calcium 7.4 L, Total Bilirubin 0.30, AST 21, ALT 8 L, Alkaline Phosphatase 70, Total Protein 6.5, Albumin 1.4 L, Globulin 5.1 H, Albumin/Globulin Ratio 0.3 L 11/07/22 05:01: POC Glucose 162 H 11/07/22 11:32: POC Glucose 302 H Micro: Microbiology 11/04/22 09:03 Stool Stool Occult Blood (JORDI) - Final 11/03/22 07:55 Sputum, Induced/Lukens Gram Stain - Final 11/03/22 07:55 Sputum, Induced/Lukens Respiratory Culture - Final Mixed normal respiratory amparo. No Streptococcus pneumoniae, beta-hemolytic Streptococcus or Staphylococcus aureus isolated. 11/03/22 11:00 Blood Culture (Wb) - Central Line Blood Culture - Preliminary No growth in 48 hours. 11/03/22 11:00 Urine Catheter - Finley Urine Culture - Final Culture exhibits no growth. Physical Exam Narrative General: no apparent distress. HEENT: Normocephalic, atraumatic.?The patient is deaf. Heart: Normal S1, S2.? No rubs, murmurs or gallops. Lungs: Clear to auscultation bilaterally. Abdomen: Nondistended, normal bowel sounds, soft Extremities: No edema. Tunneled HD catheter dressing clean, dry and intact finley with scant yellow urine in bag Assessment & Plan Assessment/Plan (1) Vomiting: PLAN: The differential diagnosis includes rumination syndrome. This is a painless unprovoked contraction of the abdomen that resolves and vomiting. Regurgitation happens when digestive fluids and undigested food rise from the esophagus into the mouth. In adults, involuntary regurgitation is a symptom of conditions such as?acid reflux, GERD, and rumination syndrome. Continue him on a PPI drip and give him scheduled Reglan 5 mg IV every 6 hours along with azithromycin 500 mg daily. He is not obstructed because he had bowel movements and nothing was coming out of his PEG tube and it was sucked up to low intermittent suction. Also different diagnosis would be dialysis dyslipidemia syndrome. The initial presentation of vomiting, headache, dizziness, agitation, disorientation, confusion, muscle cramps and tremors are common in chronic dialysis patients. They are usually ascribed to excessive or aggressive ultrafiltration, and hyper- or hypotension. He recently stopped CVVHD treatment. And he is currently getting regular hemodialysis at this time. I will discuss this possibility with nephrology if this continues despite medical treatment that improves gastric emptying.? Charges/Coding Visit Charges Inpatient E&M: 13795 Subs Hosp L3
[2022-11-07] MEDS: hydrALAZINE 20 MG/ML Vial 5 MG IV (17:55)
[2022-11-07 18:11] LABS: Bedside Glucose 247 mg/dL (74-106)
--- NOTE | 2022-11-07 20:11 | EX.EMERGENCY ---
EMERGENCY DOCUMENTATION INITIATED: Date: 10/07/22 Time: 0900 emergency documentation in effect
[2022-11-07] MEDS: Atorvastatin Calcium 40 MG Tablet GT (23:09)
[2022-11-07 23:40] LABS: Bedside Glucose 218 mg/dL (74-106)
[2022-11-08 05:37] VITALS: BP 146/57; PULSE 89; RESP 18; TEMP 36.7; O2SAT 95
[2022-11-08] MEDS: Metoclopramide 10 MG/2 ML Vial 5 MG IV ×3 (05:40→17:33)
[2022-11-08] MEDS: Insulin Lispro 100 UNIT/ML INSULN.PEN SC ×2 (05:40→12:03)
[2022-11-08] MEDS: 0.9% Saline Lock 10 ML Syringe IV (05:41)
[2022-11-08 06:36] LABS: Absolute Lymphocyte Count 0.96 X10^3/uL (0.83-4.51); Absolute Neutrophil Count 4.8 X10^3/uL (2.0-7.7); Basophil# 0.06 X10^3/uL; Basophil% 0.9 % (0-1); Eosinophil# 0.48 X10^3/uL; Hematocrit 32.5 % (40-54); Hemoglobin 10.5 g/dL (13.0-16.5); Lymphocyte # 0.96 X10^3/ul (0.83-4.51); Lymphocyte % 14.1 % (19-41); Mean Corp Hgb Conc 32.3 g/dL (32-36); Mean Corpuscular Hgb 29.3 pg (27.0-32.0); Mean Corpuscular Volume 90.8 fL (80-94); Mean Platelet Vol. 9.6 fl (6.2-12.0); Monocyte# 0.49 X10^3/uL; Monocyte% 7.2 % (0-10); NRBC Flagged by Analyzer 0 % (0-5); Neutrophil # 4.83 X10^3/uL (2.7-7.7); Neutrophil % 70.7 % (47-70); Platelet Count 219 K/mm3 (150-450); RBC Distribution Width CV 12.5 % (11.6-14.6); RBC Distribution Width SD 41.5 fl (35.1-43.9); Red Blood Count 3.58 M/mm3 (4.6-6.2); White Blood Count 6.8 K/mm3 (4.4-11.0)
--- NOTE | 2022-11-08 06:59 | PCM.PN.INT ---
Assessment & Plan Assessment/Plan (1) Acute respiratory failure: PLAN: Plan RECOMMENDATIONS: 1. Continue empiric antimicrobials to complete 7-day treatment course. 2. Continue to monitor H&H daily and transfuse if hemoglobin drops below 7 g/dL. 3. Continue basal and sliding scale insulin coverage. 4. Ongoing dialysis support per nephrology. 5. Continue appropriate GI prophylaxis. 6. We will sign off from a pulmonary/critical care perspective. Please call with any additional questions. IMPRESSIONS: 1. Acute hypoxemic respiratory failure Resolved. I do suspect that the patient's respiratory failure was likely multifactorial in etiology. The patient developed nausea and intractable emesis with subsequent aspiration of gastric contents. In addition, the patient appeared to have developed DKA, which led to the development of a significant metabolic acidosis. Unfortunately, the patient unable to compensate from a respiratory perspective for his underlying metabolic derangements. The patient was ultimately transferred to the intensive care unit and intubated for airway protection. With supportive measures, the patient improved clinically and was able to be extubated on November 06. He is doing well from a respiratory perspective on room air. Plan to continue empiric antimicrobials as ordered. 2. Profound metabolic acidosis in the setting of DKA Improved. The patient developed a significant anion gap metabolic acidosis in the setting of DKA and was notably acidotic. With supportive care, including CRRT and bicarbonate containing fluids, the patient's acidosis is resolved. The patient will be continued on basal and sliding scale insulin coverage. His blood glucose levels will be monitored closely. 3. Multifactorial shock Resolved. Most likely a combination of hypovolemia in the setting of DKA combined with septic shock related to aspiration pneumonia. The patient is not going to receive full sepsis fluid resuscitation, given his underlying ischemic cardiomyopathy and depressed ejection fraction. The patient has been weaned from vasopressor support and remains hemodynamically stable. 4. Blood loss anemia secondary to bleeding gastric ulcer status post treatment Continue to monitor H&H daily. Transfuse if hemoglobin drops below 7 g/dL. Continue PPI therapy as ordered. 5. Acute on chronic kidney disease Concern for progression to end-stage renal disease. Nephrology is following to assist with hemodialysis needs. 6. History of ischemic cardiomyopathy/diabetes mellitus/hypertension/hyperlipidemia Complicates care, management, recovery and prognosis. The patient will ultimately require surgical revascularization of his underlying coronary disease. This note was generated with [employer] software. It may contain incorrect words, spelling, and punctuation that were not noted in checking the note before signing. Subjective Subjective The patient was seen and examined at the bedside this morning. Events from the last 24 hours have been reviewed. The patient is currently afebrile, hemodynamically stable and maintaining appropriate oxygen saturations on room air. The patient is documented to be overall net +7.8 L for the hospitalization. Blood glucose levels have been fairly well controlled. Objective Data Objective Data The patient's most recent lab work, culture data and imaging studies have all been personally reviewed. Blood, urine and sputum cultures have not demonstrated any growth to date. Vital Signs: Vital Signs Temp Pulse Resp BP Pulse Ox O2 Del Method O2 Flow Rate 98.0 F 89 18 146/57 H 95 Room Air 2 11/08/22 05:37 11/08/22 05:37 11/08/22 05:37 11/08/22 05:37 11/08/22 05:37 11/08/22 05:38 11/02/22 04:45 FiO2 25 11/06/22 06:00 Oxygen Flow Rate (L/min) 2 Oxygen Delivery Method Room Air Weight: 141 lb 1.533 oz Body Mass Index (BMI) 21.7 Intake & Output: Intake and Output for Last 24 Hours 11/06/22 11/07/22 11/08/22 23:59 23:59 23:59 Intake Total 838.33 / 838.33 1321.33 / 1321.33 Output Total 1850 / 1999 1625 / 1625 450 / 450 Balance -1011.67 / -1161.67 -303.67 / -303.67 -450 / -450 Medical Nutrition Assessment Dietitian: Malnutrition Criteria Met Start: 10/31/22 11:18 Freq: Status: Active Protocol: Document 11/06/22 16:19 RMA (Rec: 11/06/22 16:20 RMA [id number]) Nutrition Malnutrition Evidence of Malnutrition Exists Yes Malnutrition (severe): Acute Illness/Injury Evidenced By Suboptimal Energy Intake ( Severe),Weight Loss (Severe) Intake Problem Inadequate Oral Intake Etiology related to altered GI function /vomiting Signs/Symptoms as evidenced by NPO/holding PEG TF at this time Status Active Problem Clinical Problem Acute Disease or Injury Related Malnutrition Etiology severe, acute malnutrition related to inadequate energy intake d/t nausea, PEG displacement Signs/Symptoms as evidenced by 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 Deleon's plan /recommendation for resuming enteral nutrition support. Pt to remain NPO and TF on hold for now. Daily weights. Lab / Micro Data Attestation: I reviewed the patient's lab results. Result Diagrams: 11/08/22 06:25 11/07/22 05:00 Labs: Laboratory Results - last 24 hr 11/07/22 11:32: POC Glucose 302 H 11/07/22 17:51: POC Glucose 247 H 11/07/22 23:05: POC Glucose 218 H 11/08/22 06:25: WBC 6.8, RBC 3.58 L, Hgb 10.5 L, Hct 32.5 L, MCV 90.8, MCH 29.3, MCHC 32.3, RDW Std Deviation 41.5, RDW Coeff of Jenifer 12.5, Plt Count 219, MPV 9.6, Immature Gran % (Auto) 0.100, Neut % (Auto) 70.7 H, Lymph % (Auto) 14.1 L, [place] % (Auto) 7.2, Eos % (Auto) 7.0 H, Baso % (Auto) 0.9, Absolute Neuts (auto) 4.8, Absolute Lymphs (auto) 0.96, Nucleated RBC % 0 Micro: Microbiology 11/04/22 09:03 Stool Stool Occult Blood (JORDI) - Final 11/03/22 07:55 Sputum, Induced/Lukens Gram Stain - Final 11/03/22 07:55 Sputum, Induced/Lukens Respiratory Culture - Final Mixed normal respiratory amparo. No Streptococcus pneumoniae, beta-hemolytic Streptococcus or Staphylococcus aureus isolated. 11/03/22 11:00 Blood Culture (Wb) - Central Line Blood Culture - Preliminary No growth in 48 hours. 11/03/22 11:00 Urine Catheter - Lopez Urine Culture - Final Culture exhibits no growth. ABG Data ABG results: ABG 11/03/22 11/03/22 07:10 08:57 Specimen Type ART ART Sample Site L Brach R Brach pH 7.08 L* 6.84 L* Bicarbonate Actual 3.1 L 3.7 L Total CO2 < 5 < 5 Base Excess -27 L < -30 L O2 Saturation 99 93 L O2 % 35 30 ABG pCO2 10.4 L* 21.7 L ABG pO2 155 H 115 H Kev Test Positive Positive Respiration Rate 12 12 O2 Delivery Device BiPAP Adult Vent Vent Mode BiLevel AC Tidal Volume 400 POC PEEP 5 Crit Call To/Read Back Yes Yes Blood Gas Notified Whom eligio pineda Clinical Comments 09/17 Radiography Diagnostic Testing: Radiology Impression Brain CT 11/05/22 06:50 IMPRESSION: Chronic involutional changes of the brain. N.B. : The above Results were Read Back by Eleazar Farrar MD to JAMIL PINEDA and understanding confirmed on 11/05/2022 08:17:17 (ET). Electronically Signed: Eleazar Farrar MD at 8:18 EST , ADDENDUM: 11/05/22 0825 IMPRESSION: Chronic involutional changes of the brain. N.B. : The above Results were Read Back by Eleazar Farrar MD to JAMIL PINEDA and understanding confirmed on 11/05/2022 08:17:17 (ET). Electronically Signed: Eleazar Farrar MD at 8:18 EST , Physical Exam Const alert and no apparent distress General Appearance: cooperative and comfortable HEENT normocephalic and head/scalp atraumatic General Ear: hearing grossly impaired Eyes PERRL Neck supple General: trachea midline and CVC in place Chest inspection of chest normal Resp Auscultation: diminished lung sounds; Negative for rales, rhonchi or wheezes Cardio regular rate and regular rhythm GI soft to palpation and non-tender Inspection: GI tube present Extremity no clubbing, cyanosis or edema Skin no rashes or lesions noted Neuro Neuro Narrative: Residual right-sided weakness without any new focal deficits. Psych Mood & Affect: flat affect Charges/Coding Visit Charges Inpatient E&M: 58843 Subs Hosp L2
[2022-11-08 07:05] LABS: Bedside Glucose 184 mg/dL (74-106)
[2022-11-08 07:12] LABS: Anion Gap 7 (5-15); BUN 19 mg/dL (7-18); BUN/Creat Ratio 4.5 RATIO (10-20); Calcium,Total 7.8 mg/dL (8.5-10.1); Chloride 105 mmol/L (98-107); Creatinine, Serum 4.23 mg/dL (0.70-1.30); EST Glomerular Filtration Rate 15 mL/min (>60); Est Glom Filt Rate - Afr Amer 19 mL/min (>60); Estimated Creatinine Clearance 17.23 ml/min; Glucose 199 mg/dL (74-106); Potassium 3.5 mmol/L (3.5-5.1); Sodium Level 138 mmol/L (136-145)
[2022-11-08 07:15] VITALS: O2SAT 94
[2022-11-08] MEDS: Dorzolamide HCL/Timolol 10 ml Bottle 1 DRP OPHTHALMIC ×2 (09:03→21:33)
[2022-11-08] MEDS: Menthol/Lanolin/Calamine/Znox 113 GM Tube 1 APPLIC TOPICAL ×2 (09:03→22:23)
[2022-11-08] MEDS: Clopidogrel Bisulfate 75 MG Tablet GT (09:04)
[2022-11-08] MEDS: Latanoprost 0.005% 1 Bottle 1 DRP OPHTHALMIC (09:04)
[2022-11-08] MEDS: Insulin Glargine-YFGN 100 UNIT/ML Pen 15 UNIT SC ×2 (09:04→21:34)
[2022-11-08 09:24] VITALS: BP 165/90; PULSE 92; RESP 16; TEMP 36.8; O2SAT 94
[2022-11-08 09:40] VITALS: BP 165/90; PULSE 92
[2022-11-08] MEDS: hydrALAZINE 20 MG/ML Vial 5 MG IV (09:40)
[2022-11-08 12:35] LABS: Bedside Glucose 200 mg/dL (74-106)
--- NOTE | 2022-11-08 12:49 | PCM.PN.HOSP ---
Objective Data Objective Data Vital Signs: Vital Signs Temp Pulse Resp BP Pulse Ox O2 Del Method O2 Flow Rate 98.2 F 92 16 165/90 H 94 Room Air 2 11/08/22 09:24 11/08/22 09:40 11/08/22 09:24 11/08/22 09:40 11/08/22 09:24 11/08/22 09:49 11/02/22 04:45 FiO2 25 11/06/22 06:00 Oxygen Flow Rate (L/min) 2 Oxygen Delivery Method Room Air Weight: 141 lb 1.533 oz Body Mass Index (BMI) 21.7 Intake & Output: Intake and Output for Last 24 Hours 11/06/22 11/07/22 11/08/22 23:59 23:59 23:59 Intake Total 838.33 / 838.33 1321.33 / 1321.33 729 / 729 Output Total 1850 / 2000 1625 / 1625 900 / 900 Balance -1011.67 / -1161.67 -303.67 / -303.67 -171 / -171 Medical Nutrition Assessment Dietitian: Malnutrition Criteria Met Start: 10/31/22 11:18 Freq: Status: Active Protocol: Document 11/06/22 16:19 RMA (Rec: 11/06/22 16:20 RMA [id number]) Nutrition Malnutrition Evidence of Malnutrition Exists Yes Malnutrition (severe): Acute Illness/Injury Evidenced By Suboptimal Energy Intake ( Severe),Weight Loss (Severe) Intake Problem Inadequate Oral Intake Etiology related to altered GI function /vomiting Signs/Symptoms as evidenced by NPO/holding PEG TF at this time Status Active Problem Clinical Problem Acute Disease or Injury Related Malnutrition Etiology severe, acute malnutrition related to inadequate energy intake d/t nausea, PEG displacement Signs/Symptoms as evidenced by 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 Deleon's plan /recommendation for resuming enteral nutrition support. Pt to remain NPO and TF on hold for now. Daily weights. Lab / Micro Data Result Diagrams: 11/08/22 06:25 11/08/22 06:25 Labs: Laboratory Results - last 24 hr 11/07/22 17:51: POC Glucose 247 H 11/07/22 23:05: POC Glucose 218 H 11/08/22 05:35: POC Glucose 184 H 11/08/22 06:25: WBC 6.8, RBC 3.58 L, Hgb 10.5 L, Hct 32.5 L, MCV 90.8, MCH 29.3, MCHC 32.3, RDW Std Deviation 41.5, RDW Coeff of Jenifer 12.5, Plt Count 219, MPV 9.6, Immature Gran % (Auto) 0.100, Neut % (Auto) 70.7 H, Lymph % (Auto) 14.1 L, [place] % (Auto) 7.2, Eos % (Auto) 7.0 H, Baso % (Auto) 0.9, Absolute Neuts (auto) 4.8, Absolute Lymphs (auto) 0.96, Nucleated RBC % 0 11/08/22 06:25: Sodium 138, Potassium 3.5, Chloride 105, Carbon Dioxide 26.0, Anion Gap 7, BUN 19 H, Creatinine 4.23 H, Estim Creat Clear Calc 17.23, Est GFR (MDRD) Af Amer 19 L, Est GFR (MDRD) Non-Af 15 L, BUN/Creatinine Ratio 4.5 L, Glucose 199 H, Calcium 7.8 L 11/08/22 12:02: POC Glucose 200 H Micro: Microbiology 11/03/22 11:00 Blood Culture (Wb) - Central Line Blood Culture - Final No growth in 5 days. 11/04/22 09:03 Stool Stool Occult Blood (JORDI) - Final 11/03/22 07:55 Sputum, Induced/Lukens Gram Stain - Final 11/03/22 07:55 Sputum, Induced/Lukens Respiratory Culture - Final Mixed normal respiratory amparo. No Streptococcus pneumoniae, beta-hemolytic Streptococcus or Staphylococcus aureus isolated. 11/03/22 11:00 Urine Catheter - Lopez Urine Culture - Final Culture exhibits no growth. Physical Exam Narrative Seen and examined. Patient on baseline. On tube feed. Physical exam General: Extubated on 11/06. Eyes open. On room air. HEENT: Atraumatic, PERRLA, EOMI, Normocephalic, congenitally deaf Oral: Oral mucosa moist. Nonverbal. Neck: Right IJ TLC. Left permacath. Supple, No JVD, Negative Carotid Bruits Lungs: Air entry diminished in bilateral lung bases. On room air. No hypoxia. Cardiovascular: Regular rate, Regular Rhythm, Normal S1, Normal S2, No murmurs Abdomen: PEG tube. Dressing is dry. No bleeding after 11/02 morning. : On hemodialysis. subclavian permacath. No renal angle tenderness. No suprapubic tenderness. Extremities: No edema, Capillary Refill Less than 3 Seconds Skin: No rashes, No breakdown Musculoskeletal:No Tenderness to Palpation of Joints or Extremities, moderate muscle atrophy. Neurological: DTR 2+/4. Detailed neuro exam unobtainable. Psych/Mental Status: Flat affect Assessment & Plan Assessment/Plan (1) ABLA (acute blood loss anemia): (2) PEG tube malfunction: (3) Aspiration pneumonia: PLAN: Plan 1. Acute hypoxic respiratory failure most likely due to aspiration, multiple etiology: Patient is intubated on ventilator. Blow Pit Operator is consulted. Repeat chest x-ray individually reviewed. Lungs feels looks clear. ET tube right midclavicular line. 11/06: Patient extubated in the morning. On nasal cannula. Patient has vomiting and GI is consulted. 11/07: Patient is being transferred to PCU. Tube feed is started at 10 mL/min. 11/08: Continue tube feed.Increased to 20 mill per minute. 2. DKA: Labs suggestive of high anion gap metabolic acidosis with pH 7.08. On restricted IV fluid and insulin drip. . Acute blood loss anemia secondary to pulling out a PEG tube ? GI consulted for an PEG tube replacement. PEG tube replaced but has blood clots under dressing. Transfuse PRBC with hemoglobin threshold of 8 g%. ? Continue with PPI 11/03: Hemoglobin dropped to 7.3, MCV 106 point. Platelet count 509,000. Transfuse 1 unit of PRBC. 11/04: Anion gap is closed. Patient metabolic acidosis improved. Bicarb is 31. Insulin drip was transitioned to Lantus and sliding scale insulin. 11/05: Glucose 230 in BMP. 11/06: Glucose is controlled between 120 to 150 mg/dL. 11/07 glucose 183, A1c 6.9%. 3. Septic shock, multifactorial due to suspected aspiration pneumonia, hypovolemia from DKA: Patient was started on Levophed drip on 11/02 and is still on it. Patient is not candidate for sepsis protocol for IV fluid as he had ischemic cardiomyopathy with recent non-STEMI and ischemic cardiomyopathy. 11/05: Patient is of Levophed drip since 3 AM. Monitor BP. Continue IV antibiotic 11/06: Patient maintaining blood pressure off Levophed. On IV antibiotic, Zosyn. 11/08: BP on higher side 165/90. Start on antihypertensive medication. 4. Acute blood loss anemia on anemia of chronic disease: Patient hemoglobin dropped to 6.7 and 2 unit transfused. Patient had EGD earlier which showed gastric ulcer with visible vessel, erosive esophagitis, gastroparesis on 11/01/2022. 11/05: Posttransfusion hemoglobin 9 g. 11/06: Hemoglobin 8.6 g%. 11/07: On continuous PPI drip. Hemoglobin 9.8. 5. Aspiration pneumonia/dysphagia ? Chest x-ray shows right lower lobe infiltrate with history of vomiting, dysphagia and aspiration raises suspicion of aspiration pneumonia, continue with Unasyn Probable gastroparesis 11/08: GI note reviewed. Vomiting probably involuntary regurgitation from painless unprovoked contraction of abdomen, rumination syndrome. Slow tube feed along with Reglan 5 mg IV every 6 hourly along with azithromycin 500 mg daily. 6. DM1/acute kidney injury on CKD unspecified stage with dialysis M, W, F ? Accu-Cheks ACH ? Sliding scale insulin ? Forklift Operator consulted 11/04: Patient on CRRT as per automatic beading lathe operator recommendation 11/08: Being followed by automatic beading lathe operator. 4. CAD/HTN/HLD ? On his previous admission between 09/16/2022 to for multiple reasons non-STEMI, DKA, acute kidney injury on CKD. At that time he had a cardiac cath which demonstrated multivessel disease and medical management was recommended at that time. continue with his aspirin, Plavix once okay with GI His second admission from October 21 to October 27 was for upper GI bleed. ? Continue with Lipitor and Coreg as well as Norvasc once his PEG tube was reinserted 5. Severe protein calorie malnutrition ? Consult nutrition Congenital deafness and congenital blindness as well as an inability to read does make communication very challenging and also complicates his care. DVT: SCDs Multiple comorbidities complicates the present care and expect difficult and delay recovery Discussed with caseworker intake. Patient had 3 admissions since October with the first 1 more than a month during the first admission. Blow Pit Operator discussed with the family regarding CODE STATUS with patient and his stepson who is POA. He is DNR CC arrest with intubation Charges/Coding Visit Charges Inpatient E&M: 99694 Subs Hosp L2
[2022-11-08 14:46] VITALS: BP 149/84; PULSE 81; RESP 16; TEMP 36.4; O2SAT 95
[2022-11-08] MEDS: Vital AF 1.2 Cal Liquid 1,000 ML 20 ML GT (14:46)
[2022-11-08 18:05] LABS: Bedside Glucose 112 mg/dL (74-106)
--- NOTE | 2022-11-08 20:31 | PCM.PN.REN ---
Subjective Subjective Following for dialysis dependent TREVOR on CKD. The patient is deaf, so ROS is limited. He denies chest pain or shortness of breath.? There is no nausea or vomiting. Objective Data Objective Data Vital Signs: Vital Signs Temp Pulse Resp BP Pulse Ox O2 Del Method O2 Flow Rate 97.5 F L 81 16 149/84 H 95 Room Air 2 11/08/22 14:46 11/08/22 14:46 11/08/22 14:46 11/08/22 14:46 11/08/22 14:46 11/08/22 14:46 11/02/22 04:45 FiO2 25 11/06/22 06:00 Oxygen Flow Rate (L/min) 2 Oxygen Delivery Method Room Air Weight: 64 kg Body Mass Index (BMI) 21.7 Intake & Output: Intake and Output for Last 24 Hours 11/06/22 11/07/22 11/08/22 23:59 23:59 23:59 Intake Total 838.33 / 838.33 1321.33 / 1321.33 1132.66 / 1132.66 Output Total 1850 / 2000 1625 / 1625 1200 / 1200 Balance -1011.67 / -1161.67 -303.67 / -303.67 -67.34 / -67.34 Medical Nutrition Assessment Dietitian: Malnutrition Criteria Met Start: 10/31/22 11:18 Freq: Status: Active Protocol: Document 11/06/22 16:19 RMA (Rec: 11/06/22 16:20 RMA [id number]) Nutrition Malnutrition Evidence of Malnutrition Exists Yes Malnutrition (severe): Acute Illness/Injury Evidenced By Suboptimal Energy Intake ( Severe),Weight Loss (Severe) Intake Problem Inadequate Oral Intake Etiology related to altered GI function /vomiting Signs/Symptoms as evidenced by NPO/holding PEG TF at this time Status Active Problem Clinical Problem Acute Disease or Injury Related Malnutrition Etiology severe, acute malnutrition related to inadequate energy intake d/t nausea, PEG displacement Signs/Symptoms as evidenced by 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 Deleon's plan /recommendation for resuming enteral nutrition support. Pt to remain NPO and TF on hold for now. Daily weights. Lab / Micro Data Result Diagrams: 11/08/22 06:25 11/08/22 06:25 Labs: Laboratory Results - last 24 hr 11/07/22 23:05: POC Glucose 218 H 11/08/22 05:35: POC Glucose 184 H 11/08/22 06:25: WBC 6.8, RBC 3.58 L, Hgb 10.5 L, Hct 32.5 L, MCV 90.8, MCH 29.3, MCHC 32.3, RDW Std Deviation 41.5, RDW Coeff of Jenifer 12.5, Plt Count 219, MPV 9.6, Immature Gran % (Auto) 0.100, Neut % (Auto) 70.7 H, Lymph % (Auto) 14.1 L, [place] % (Auto) 7.2, Eos % (Auto) 7.0 H, Baso % (Auto) 0.9, Absolute Neuts (auto) 4.8, Absolute Lymphs (auto) 0.96, Nucleated RBC % 0 11/08/22 06:25: Sodium 138, Potassium 3.5, Chloride 105, Carbon Dioxide 26.0, Anion Gap 7, BUN 19 H, Creatinine 4.23 H, Estim Creat Clear Calc 17.23, Est GFR (MDRD) Af Amer 19 L, Est GFR (MDRD) Non-Af 15 L, BUN/Creatinine Ratio 4.5 L, Glucose 199 H, Calcium 7.8 L 11/08/22 12:02: POC Glucose 200 H 11/08/22 17:32: POC Glucose 112 H Micro: Microbiology 11/03/22 11:00 Blood Culture (Wb) - Central Line Blood Culture - Final No growth in 5 days. 11/04/22 09:03 Stool Stool Occult Blood (JORDI) - Final 11/03/22 07:55 Sputum, Induced/Lukens Gram Stain - Final 11/03/22 07:55 Sputum, Induced/Lukens Respiratory Culture - Final Mixed normal respiratory amparo. No Streptococcus pneumoniae, beta-hemolytic Streptococcus or Staphylococcus aureus isolated. 11/03/22 11:00 Urine Catheter - Lopez Urine Culture - Final Culture exhibits no growth. Physical Exam Narrative General: No apparent distress. HEENT: Normocephalic, atraumatic.?The patient is deaf. Heart: Normal S1, S2.? No rubs, murmurs or gallops. Lungs: Clear to auscultation anteriorly. Abdomen: Nondistended, normal bowel sounds, soft Extremities: No edema. Tunneled HD catheter dressing clean, dry and intact. Assessment & Plan Assessment/Plan (1) TREVOR (acute kidney injury): (2) CKD (chronic kidney disease): (3) HTN (hypertension): (4) Decreased left ventricular systolic function: (5) Macrocytic anemia: PLAN: Plan Impression/Plan: The patient is a 57-year-old man with past history of type 1 diabetes mellitus, hypertension, CAD, congenital deafness, prior stroke, and chronic kidney disease who was recently admitted to this hospital between 09/16/2022 until 10/19/2022 for DKA, hypertensive emergency, NSTEMI, acute hypoxic respiratory failure requiring temporary mechanical ventilator, and acute kidney injury on chronic kidney disease.? The patient has had a progressive loss of renal function and was started on dialysis on 09/22/2022.? The patient was readmitted to the hospital between 10/21/2022 until 10/27/2022 with upper GI bleed.? He returns again to the hospital on 10/30/2022 with dislodgment of his PEG tube.? He developed acute on chronic respiratory failure requiring intubation during this admission. He is now off ventilator and back on PCU. Nephrology is following for dialysis dependent TREVOR on CKD. Acute kidney injury on chronic kidney disease, unspecified stage. The patient was started on dialysis on 09/22/2022 because of refractory acute hypoxic respiratory failure, volume overload, acidosis, and severe azotemia. He has been dialysis dependent since then without signs of recovery. Baseline serum creatinine is unknown but was 1.6 mg/dL in 2020. Prior to this admission, the patient had been on outpatient dialysis at [facility] on MWF schedule. The patient decompensated overnight on 11/02/2022. He was intubated and required IV vasopressor. Therefore, he required CRRT until 11/04/2022. He is back on MWF IHD schedule. The patient tolerated IHD well on 11/06/2022. No need for dialysis today. Next dialysis is scheduled for tomorrow on 11/09/2022. Hypertension. The patient has labile BP. BP was as high as 207/124 on 09/16/2022. There was a transient period of hypotension requiring IV vasopressor earlier this week. Current BP is acceptable off of antihypertensive. Continue to monitor BP without medications for now. CAD with heart failure with reduced ejection fraction?presumably from systolic dysfunction related to ischemia. The patient appears to be compensated. Will continue to remove fluid with dialysis. Anemia. Hemoglobin is low but stable at 9.8 g/dL today.? Hemoglobin was low as 6.7 g/dL on 11/04/2022. He is status post PRBC transfusion on 11/04/2022. We will continue IV iron and INOCENCIO with dialysis at outpatient kidney center. Acute on chronic hypoxic respiratory failure. Improved since 11/02/2022. He is off of ventilator and appears to be compensated today. The patient is on antimicrobial as directed by primary service. Continue to keep O>I with ultrafiltration during dialysis.
[2022-11-08 21:30] VITALS: BP 155/87; PULSE 88; RESP 16; TEMP 36.8; O2SAT 96
[2022-11-08] MEDS: Atorvastatin Calcium 40 MG Tablet GT (21:38)
[2022-11-09 00:15] LABS: Bedside Glucose 115 mg/dL (74-106)
[2022-11-09] MEDS: Metoclopramide 10 MG/2 ML Vial 5 MG IV ×5 (00:57→23:06)
[2022-11-09 03:00] VITALS: BP 139/77; PULSE 71; RESP 16; TEMP 36.7; O2SAT 94
[2022-11-09 05:36] LABS: Bedside Glucose 106 mg/dL (74-106)
[2022-11-09 06:18] LABS: Absolute Neutrophil Count 5.5 X10^3/uL (2.0-7.7); Basophil# 0.05 X10^3/uL; Basophil% 0.7 % (0-1); Eosinophil# 0.52 X10^3/uL; Eosinophils% 6.9 % (0-5); Hematocrit 33.8 % (40-54); Hemoglobin 10.9 g/dL (13.0-16.5); Lymphocyte % 13.2 % (19-41); Mean Corp Hgb Conc 32.2 g/dL (32-36); Mean Corpuscular Hgb 29.4 pg (27.0-32.0); Mean Corpuscular Volume 91.1 fL (80-94); Mean Platelet Vol. 9.9 fl (6.2-12.0); Monocyte# 0.52 X10^3/uL; Monocyte% 6.9 % (0-10); NRBC Flagged by Analyzer 0 % (0-5); Neutrophil # 5.48 X10^3/uL (2.7-7.7); Platelet Count 241 K/mm3 (150-450); RBC Distribution Width CV 12.7 % (11.6-14.6); RBC Distribution Width SD 41.9 fl (35.1-43.9); Red Blood Count 3.71 M/mm3 (4.6-6.2); White Blood Count 7.6 K/mm3 (4.4-11.0)
[2022-11-09 06:51] LABS: Anion Gap 11 (5-15); BUN 23 mg/dL (7-18); BUN/Creat Ratio 4.5 RATIO (10-20); Calcium,Total 7.9 mg/dL (8.5-10.1); Chloride 105 mmol/L (98-107); Creatinine, Serum 5.07 mg/dL (0.70-1.30); EST Glomerular Filtration Rate 13 mL/min (>60); Est Glom Filt Rate - Afr Amer 15 mL/min (>60); Estimated Creatinine Clearance 14.38 ml/min; Glucose 103 mg/dL (74-106); Potassium 3.2 mmol/L (3.5-5.1); Sodium Level 139 mmol/L (136-145)
[2022-11-09 08:10] VITALS: O2SAT 92
[2022-11-09 09:11] VITALS: BP 153/90; PULSE 90; RESP 18; TEMP 35.9; O2SAT 95
[2022-11-09] MEDS: Menthol/Lanolin/Calamine/Znox 113 GM Tube 1 APPLIC TOPICAL ×2 (09:13→22:58)
[2022-11-09] MEDS: Latanoprost 0.005% 1 Bottle 1 DRP OPHTHALMIC (09:15)
[2022-11-09] MEDS: Dorzolamide HCL/Timolol 10 ml Bottle 1 DRP OPHTHALMIC ×2 (09:16→22:58)
[2022-11-09] MEDS: Clopidogrel Bisulfate 75 MG Tablet GT (09:17)
[2022-11-09] MEDS: Insulin Glargine-YFGN 100 UNIT/ML Pen 15 UNIT SC ×2 (09:17→22:58)
[2022-11-09] MEDS: 0.9% Saline Lock 10 ML Syringe IV ×2 (09:18→23:05)
--- NOTE | 2022-11-09 10:04 | PN.HOSP_ITS ---
Subjective Subjective Follow-up for multiple acute issues including aspiration pneumonia Objective Data Objective Data Vital Signs: Vital Signs Temp Pulse Resp BP Pulse Ox O2 Del Method O2 Flow Rate 98.1 F 71 16 139/77 H 94 Room Air 2 11/09/22 03:00 11/09/22 03:00 11/09/22 03:00 11/09/22 03:00 11/09/22 03:00 11/09/22 03:00 11/02/22 04:45 FiO2 25 11/06/22 06:00 Oxygen Flow Rate (L/min) 2 Oxygen Delivery Method Room Air Weight: 141 lb 1.533 oz Body Mass Index (BMI) 21.7 Intake & Output: Intake and Output for Last 24 Hours 11/07/22 11/08/22 11/09/22 23:59 23:59 23:59 Intake Total 1321.33 / 1321.33 1248.33 / 1248.33 355.33 / 355.33 Output Total 1625 / 1625 1400 / 1400 175 / 175 Balance -303.67 / -303.67 -151.67 / -151.67 180.33 / 180.33 Medical Nutrition Assessment Dietitian: Malnutrition Criteria Met Start: 10/31/22 11:18 Freq: Status: Active Protocol: Document 11/06/22 16:19 RMA (Rec: 11/06/22 16:20 RMA [id number]) Nutrition Malnutrition Evidence of Malnutrition Exists Yes Malnutrition (severe): Acute Illness/Injury Evidenced By Suboptimal Energy Intake ( Severe),Weight Loss (Severe) Intake Problem Inadequate Oral Intake Etiology related to altered GI function /vomiting Signs/Symptoms as evidenced by NPO/holding PEG TF at this time Status Active Problem Clinical Problem Acute Disease or Injury Related Malnutrition Etiology severe, acute malnutrition related to inadequate energy intake d/t nausea, PEG displacement Signs/Symptoms as evidenced by unintentional wt loss of 4.1kg/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 Deleon's plan /recommendation for resuming enteral nutrition support. Pt to remain NPO and TF on hold for now. Daily weights. Lab / Micro Data Result Diagrams: 11/09/22 06:04 11/09/22 06:04 Labs: Laboratory Results - last 24 hr 11/08/22 12:02: POC Glucose 200 H 11/08/22 17:32: POC Glucose 112 H 11/08/22 23:55: POC Glucose 115 H 11/09/22 05:16: POC Glucose 106 11/09/22 06:04: WBC 7.6, RBC 3.71 L, Hgb 10.9 L, Hct 33.8 L, MCV 91.1, MCH 29.4, MCHC 32.2, RDW Std Deviation 41.9, RDW Coeff of Jenifer 12.7, Plt Count 241, MPV 9.9, Immature Gran % (Auto) 0.300, Neut % (Auto) 72.0 H, Lymph % (Auto) 13.2 L, [place] % (Auto) 6.9, Eos % (Auto) 6.9 H, Baso % (Auto) 0.7, Absolute Neuts (auto) 5.5, Absolute Lymphs (auto) 1.00, Nucleated RBC % 0 11/09/22 06:04: Sodium 139, Potassium 3.2 L, Chloride 105, Carbon Dioxide 23.0, Anion Gap 11, BUN 23 H, Creatinine 5.07 H, Estim Creat Clear Calc 14.38, Est GFR (MDRD) Af Amer 15 L, Est GFR (MDRD) Non-Af 13 L, BUN/Creatinine Ratio 4.5 L, Glucose 103, Calcium 7.9 L Micro: Microbiology 11/03/22 11:00 Blood Culture (Wb) - Central Line Blood Culture - Final No growth in 5 days. 11/04/22 09:03 Stool Stool Occult Blood (JRODI) - Final 11/03/22 07:55 Sputum, Induced/Lukens Gram Stain - Final 11/03/22 07:55 Sputum, Induced/Lukens Respiratory Culture - Final Mixed normal respiratory amparo. No Streptococcus pneumoniae, beta-hemolytic Streptococcus or Staphylococcus aureus isolated. 11/03/22 11:00 Urine Catheter - Lopez Urine Culture - Final Culture exhibits no growth. Physical Exam Narrative Seen and examined. Patient on baseline. On tube feed. Physical exam General: Extubated on 11/06. Eyes open. On room air. HEENT: Atraumatic, PERRLA, EOMI, Normocephalic, congenitally deaf Oral: Oral mucosa moist. Nonverbal. Neck: Right IJ TLC. Left permacath. Supple, No JVD, Negative Carotid Bruits Lungs: Air entry diminished in bilateral lung bases. On room air. No hypoxia. Cardiovascular: Regular rate, Regular Rhythm, Normal S1, Normal S2, No murmurs Abdomen: PEG tube. Dressing is dry. No bleeding after 11/02 morning. : On hemodialysis. subclavian permacath. No renal angle tenderness. No suprapubic tenderness. Extremities: No edema, Capillary Refill Less than 3 Seconds Skin: No rashes, No breakdown Musculoskeletal:No Tenderness to Palpation of Joints or Extremities, moderate muscle atrophy. Neurological: DTR 2+/4. Detailed neuro exam unobtainable. Psych/Mental Status: Flat affect Assessment & Plan Assessment/Plan (1) ABLA (acute blood loss anemia): (2) PEG tube malfunction: (3) Aspiration pneumonia: PLAN: Plan 1. Acute hypoxic respiratory failure most likely due to aspiration, multiple etiology: Patient is intubated on ventilator. Veneer Trimmer is consulted. Repeat chest x-ray individually reviewed. Lungs feels looks clear. ET tube right midclavicular line. 11/06: Patient extubated in the morning. On nasal cannula. Patient has vomiting and GI is consulted. 11/07: Patient is being transferred to PCU. Tube feed is started at 10 mL/min. 11/08: Continue tube feed.Increased to 20 mill per minute. 11/09: Monitoring for vomiting on tube feed. Continue 20 mill per minute with no emesis as documented by nursing staff. 2. DKA: Labs suggestive of high anion gap metabolic acidosis with pH 7.08. On restricted IV fluid and insulin drip. . Acute blood loss anemia secondary to pulling out a PEG tube ? GI consulted for an PEG tube replacement. PEG tube replaced but has blood clots under dressing. Transfuse PRBC with hemoglobin threshold of 8 g%. ? Continue with PPI 11/03: Hemoglobin dropped to 7.3, MCV 106 point. Platelet count 509,000. Transfuse 1 unit of PRBC. 11/04: Anion gap is closed. Patient metabolic acidosis improved. Bicarb is 31. Insulin drip was transitioned to Lantus and sliding scale insulin. 11/05: Glucose 230 in BMP. 11/06: Glucose is controlled between 120 to 150 mg/dL. 11/07 glucose 183, A1c 6.9%. 3. Septic shock, multifactorial due to suspected aspiration pneumonia, hypovolemia from DKA: Patient was started on Levophed drip on 11/02 and is still on it. Patient is not candidate for sepsis protocol for IV fluid as he had ischemic cardiomyopathy with recent non-STEMI and ischemic cardiomyopathy. 11/05: Patient is of Levophed drip since 3 AM. Monitor BP. Continue IV antibiotic 11/06: Patient maintaining blood pressure off Levophed. On IV antibiotic, Zosyn. 11/08: BP on higher side 165/90. Start on antihypertensive medication. 11/09: Patient completed 7 days of IV antibiotic Zosyn. 4. Acute blood loss anemia on anemia of chronic disease: Patient hemoglobin dropped to 6.7 and 2 unit transfused. Patient had EGD earlier which showed gastric ulcer with visible vessel, erosive esophagitis, gastroparesis on 11/01/2022. 11/05: Posttransfusion hemoglobin 9 g. 11/06: Hemoglobin 8.6 g%. 11/07: On continuous PPI drip. Hemoglobin 9.8. 5. Aspiration pneumonia/dysphagia ? Chest x-ray shows right lower lobe infiltrate with history of vomiting, dysphagia and aspiration raises suspicion of aspiration pneumonia, continue with Unasyn Probable gastroparesis 11/08: GI note reviewed. Vomiting probably involuntary regurgitation from painless unprovoked contraction of abdomen, rumination syndrome. Slow tube feed along with Reglan 5 mg IV every 6 hourly along with azithromycin 500 mg daily. 6. DM1/acute kidney injury on CKD unspecified stage with dialysis M, W, F ? Accu-Cheks ACH ? Sliding scale insulin ? Scruff Worker consulted 11/04: Patient on CRRT as per buffet server recommendation 11/08: Being followed by buffet server. 4. CAD/HTN/HLD ? On his previous admission between 09/16/2022 to for multiple reasons non-STEMI, DKA, acute kidney injury on CKD. At that time he had a cardiac cath which demonstrated multivessel disease and medical management was recommended at that time. continue with his aspirin, Plavix once okay with GI His second admission from October 21 to October 27 was for upper GI bleed. ? Continue with Lipitor and Coreg as well as Norvasc once his PEG tube was reinserted 5. Severe protein calorie malnutrition ? Consult nutrition Congenital deafness and congenital blindness as well as an inability to read does make communication very challenging and also complicates his care. DVT: SCDs Multiple comorbidities complicates the present care and expect difficult and delay recovery Discussed with bilingual patient support caseworker. Patient had 3 admissions since October with the first 1 more than a month during the first admission. Veneer Trimmer discussed with the family regarding CODE STATUS with patient and his stepson who is POA. He is DNR CC arrest with intubation Signout: Patient ready for discharge. Pre-CERT pending. Continue tube feed 20 mill per hour as patient vomits and aspirate on higher rate
--- NOTE | 2022-11-09 10:19 | CASEMGMT ---
Social Work SW spoke w/physician, pt may be ready today. SW sent updates via [employer] and asked Lainey to start precert. ROSENDO Hays
[2022-11-09 12:06] LABS: Bedside Glucose 146 mg/dL (74-106)
--- NOTE | 2022-11-09 13:06 | CASEMGMT ---
Social Work SW notified by family preservation caseworker wants pt to go to a different facility. SW spoke w/step son Ben and pt's significant other in the room. Ben states they want a different facility for pt. SW inquired to Ben why he did not mention this when SW asked him at the start of the admission, reminded him he told SW they were okay w/pt returning to [facility]. Ben states that he did not think of it. SW provided a list of assisted facilities in network w/pt's insurance, in pt's preferred geographic area, complete with quality and resource use data. They are asking for a referral to [facility]. Ben states if [facility] cannot take pt, they would like to consider another facility, pt's sister is coming in and she knows the name of the other facility. SW explained it may not be easy to find a different facility due to the transportation to and from dialysis. Ben states that [facility] has been taking pt. SW called Lainey at [facility], inquired about pt's transport. She states they have been taking pt back and forth as [facility] won't take pt, as he fell out of his chair. Pt goes M,W,F to [facility] at 12pm. SW sent a referral via [employer] to [facility]. SW will continue to follow. ROSENDO Hays
[2022-11-09 15:18] VITALS: BP 183/91; PULSE 93; RESP 18; TEMP 36; O2SAT 96
--- NOTE | 2022-11-09 15:20 | PCM.PN.REN ---
Subjective Subjective No new events Objective Data Objective Data Vital Signs: Vital Signs Temp Pulse Resp BP Pulse Ox O2 Del Method O2 Flow Rate 96.6 F L 90 18 153/90 H 95 Room Air 2 11/09/22 09:11 11/09/22 09:11 11/09/22 09:11 11/09/22 09:11 11/09/22 09:11 11/09/22 09:11 11/02/22 04:45 FiO2 25 11/06/22 06:00 Oxygen Flow Rate (L/min) 2 Oxygen Delivery Method Room Air Weight: 64 kg Body Mass Index (BMI) 21.7 Intake & Output: Intake and Output for Last 24 Hours 11/07/22 11/08/22 11/09/22 23:59 23:59 23:59 Intake Total 1321.33 / 1321.33 1248.33 / 1248.33 535.33 / 535.33 Output Total 1625 / 1625 1400 / 1400 175 / 175 Balance -303.67 / -303.67 -151.67 / -151.67 360.33 / 360.33 Medical Nutrition Assessment Dietitian: Malnutrition Criteria Met Start: 10/31/22 11:18 Freq: Status: Active Protocol: Document 11/09/22 10:50 RMA (Rec: 11/09/22 10:50 RMA [id number]) Nutrition Malnutrition Evidence of Malnutrition Exists Yes Malnutrition (severe): Acute Illness/Injury Evidenced By Suboptimal Energy Intake ( Severe),Weight Loss (Severe) Intake Problem Inadequate Oral Intake Etiology related to altered GI function /vomiting Signs/Symptoms as evidenced by NPO/holding PEG TF at this time Status Active Problem Clinical Problem Acute Disease or Injury Related Malnutrition Etiology severe, acute malnutrition related to inadequate energy intake d/t nausea, PEG displacement Signs/Symptoms as evidenced by unintentional wt loss of 4.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 Current TF meeting~40% estimated calorie and ~45% estimated protein needs. 2.) Recommend advance TF as patient tolerates to better meet estimated nutrition needs and prevent further adrianne/pro depletion to goal rate of 55mL /hour w/ 70mL H2O flush every 4 hours to provide 1584 calories, 99 g protein, and 1490mL total fluid/day. 3.) Daily weights. Lab / Micro Data Result Diagrams: 11/09/22 06:04 11/09/22 06:04 Labs: Laboratory Results - last 24 hr 11/08/22 17:32: POC Glucose 112 H 11/08/22 23:55: POC Glucose 115 H 11/09/22 05:16: POC Glucose 106 11/09/22 06:04: WBC 7.6, RBC 3.71 L, Hgb 10.9 L, Hct 33.8 L, MCV 91.1, MCH 29.4, MCHC 32.2, RDW Std Deviation 41.9, RDW Coeff of Jenifer 12.7, Plt Count 241, MPV 9.9, Immature Gran % (Auto) 0.300, Neut % (Auto) 72.0 H, Lymph % (Auto) 13.2 L, [place] % (Auto) 6.9, Eos % (Auto) 6.9 H, Baso % (Auto) 0.7, Absolute Neuts (auto) 5.5, Absolute Lymphs (auto) 1.00, Nucleated RBC % 0 11/09/22 06:04: Sodium 139, Potassium 3.2 L, Chloride 105, Carbon Dioxide 23.0, Anion Gap 11, BUN 23 H, Creatinine 5.07 H, Estim Creat Clear Calc 14.38, Est GFR (MDRD) Af Amer 15 L, Est GFR (MDRD) Non-Af 13 L, BUN/Creatinine Ratio 4.5 L, Glucose 103, Calcium 7.9 L 11/09/22 11:45: POC Glucose 146 H Micro: Microbiology 11/03/22 11:00 Blood Culture (Wb) - Central Line Blood Culture - Final No growth in 5 days. 11/04/22 09:03 Stool Stool Occult Blood (JORDI) - Final 11/03/22 07:55 Sputum, Induced/Lukens Gram Stain - Final 11/03/22 07:55 Sputum, Induced/Lukens Respiratory Culture - Final Mixed normal respiratory amparo. No Streptococcus pneumoniae, beta-hemolytic Streptococcus or Staphylococcus aureus isolated. 11/03/22 11:00 Urine Catheter - Lopez Urine Culture - Final Culture exhibits no growth. Physical Exam Narrative General: No apparent distress. HEENT: Normocephalic, atraumatic.?The patient is deaf. Heart: Normal S1, S2.? No rubs, murmurs or gallops. Lungs: Clear to auscultation anteriorly. Abdomen: Nondistended, normal bowel sounds, soft Extremities: No edema. Tunneled HD catheter dressing clean, dry and intact. Assessment & Plan Assessment/Plan (1) TREVOR (acute kidney injury): (2) CKD (chronic kidney disease): (3) HTN (hypertension): (4) Decreased left ventricular systolic function: (5) Macrocytic anemia: PLAN: Plan Impression/Plan: The patient is a 57-year-old man with past history of type 1 diabetes mellitus, hypertension, CAD, congenital deafness, prior stroke, and chronic kidney disease who was recently admitted to this hospital between 09/16/2022 until 10/19/2022 for DKA, hypertensive emergency, NSTEMI, acute hypoxic respiratory failure requiring temporary mechanical ventilator, and acute kidney injury on chronic kidney disease.? The patient has had a progressive loss of renal function and was started on dialysis on 09/22/2022.? The patient was readmitted to the hospital between 10/21/2022 until 10/27/2022 with upper GI bleed.? He returns again to the hospital on 10/30/2022 with dislodgment of his PEG tube.? He developed acute on chronic respiratory failure requiring intubation during this admission. He is now off ventilator and back on PCU. Nephrology is following for dialysis dependent TREVOR on CKD. Acute kidney injury on chronic kidney disease, unspecified stage. The patient was started on dialysis on 09/22/2022 because of refractory acute hypoxic respiratory failure, volume overload, acidosis, and severe azotemia. He has been dialysis dependent since then without signs of recovery. Baseline serum creatinine is unknown but was 1.6 mg/dL in 2020. Prior to this admission, the patient had been on outpatient dialysis at [facility] on MWF schedule. The patient decompensated overnight on 11/02/2022. He was intubated and required IV vasopressor. Therefore, he required CRRT until 11/04/2022. He is back on [facility] IHD schedule. The patient tolerated IHD well on 11/06/2022. Dialysis scheduled for today Hypertension. Blood pressure is acceptable today CAD with heart failure with reduced ejection fraction?presumably from systolic dysfunction related to ischemia. The patient appears to be compensated. Will continue to remove fluid with dialysis. Anemia. Hemoglobin is low but stable
--- NOTE | 2022-11-09 15:29 | CM.ED ---
Lila's, Antonio's sister, called and inquired well, if he has to go to dialysis at [place] why does it matter if he is in [place] or [place]. Lila said that they would like patient to go to [facility] and not return to [facility]. SW reviewed notes and saw that referral was made to [facility] and the professor of social work and family can follow up as per Lila, patient is not being discharged today but sometime this week. Julianna OLEA
--- NOTE | 2022-11-09 16:59 | CHAPLAIN ---
Type of Pastoral Visit _x__ Initial Visit ___ Follow-up Visit ___ On-call Visit ___ General Patient Visit ___ Spiritual Assessment ___ Family Conference ___ Bereavement ___ Rapid Response ___ Code Blue ___ Other (describe below) Pastoral Care Referral From _?__ Patient ___ Family ___ Nurse ___ Physician ___ Manufacturing Test Engineer ___ Automatic Chief ___ Other (describe below) Sacrament/Intervention ___ Active listening ___ Anointing ___ Latter-Day ___ Bereavement ___ Communion ___ Bibi exploration ___ ___ Life review ___ Prayer ___ Reconciliation ___ Sacrament of Sick _x__ Supportive presence ___ Wedding ___ Other (describe below) Pastoral Comments upon entering room and speaking to patient with offer of support, it was discovered that patient is deaf, mute, and unable to see in one eye; patient made motions for writing down words; introduced self, role, and inquiry of needs or concerns on a piece of paper for patient; pt made motions to answer some of the questions; it was not understood if he truly had concerns as patient was not able to write responses either; made hand motions to offer prayer and pt nodded yes; made offer of support and care to patient and he gave a thumbs up sign;
[2022-11-09 17:40] VITALS: BP 183/90; PULSE 96; RESP 16; TEMP 36.8
[2022-11-09] MEDS: Insulin Lispro 100 UNIT/ML INSULN.PEN SC ×2 (18:26→22:59)
[2022-11-09 18:46] LABS: Bedside Glucose 182 mg/dL (74-106)
[2022-11-09] MEDS: Heparin 10,000 UNITS/10 ML Vial IV (21:31)
[2022-11-09 22:02] VITALS: BP 133/62; BP 133/67; PULSE 104; RESP 16; TEMP 36.4; O2SAT 96
--- NOTE | 2022-11-09 22:21 | DIALYSIS ---
Hemodialysis x 3.5hrs completed. -1500ml UF. Stable t/o. CVC closed with heparin to each lumen fill volume. CVC dressing changed. Report to CAROLINE HALL Hannah
[2022-11-09] MEDS: Vital AF 1.2 Cal Liquid 1,000 ML 20 ML GT (22:51)
[2022-11-09] MEDS: Atorvastatin Calcium 40 MG Tablet GT (22:59)
[2022-11-09 23:30] LABS: Bedside Glucose 184 mg/dL (74-106)
[2022-11-10 03:32] VITALS: BP 149/85; PULSE 99; RESP 16; TEMP 36.7; O2SAT 96
[2022-11-10] MEDS: Metoclopramide 10 MG/2 ML Vial 5 MG IV ×2 (06:33→12:22)
[2022-11-10] MEDS: Insulin Lispro 100 UNIT/ML INSULN.PEN SC ×2 (06:33→12:22)
[2022-11-10] MEDS: 0.9% Saline Lock 10 ML Syringe IV ×2 (06:35→12:22)
[2022-11-10 07:15] LABS: Bedside Glucose 203 mg/dL (74-106)
[2022-11-10 10:00] VITALS: BP 137/82; PULSE 98; RESP 15; TEMP 36.6; O2SAT 93
[2022-11-10] MEDS: Menthol/Lanolin/Calamine/Znox 113 GM Tube 1 APPLIC TOPICAL (10:05)
[2022-11-10] MEDS: Dorzolamide HCL/Timolol 10 ml Bottle 1 DRP OPHTHALMIC (10:06)
[2022-11-10] MEDS: Clopidogrel Bisulfate 75 MG Tablet GT (10:07)
[2022-11-10] MEDS: Insulin Glargine-YFGN 100 UNIT/ML Pen 15 UNIT SC (10:07)
[2022-11-10] MEDS: Latanoprost 0.005% 1 Bottle 1 DRP OPHTHALMIC (10:10)
[2022-11-10 10:41] LABS: Bedside Glucose 208 mg/dL (74-106)
--- NOTE | 2022-11-10 10:46 | CASEMGMT ---
[place] received insurance authorization. HUSSEIN called [facility] and spoke with the anatomy teacher regarding referral. They cannot take patient as they do not have the ability to transport patient to and from dialysis. HUSSEIN called patient's step son Ben and let him know this information. He said he will have to talk with his sister to see what they will do. HUSSEIN let him know insurance has already approved [place] so patient may have to go back to [place] and they can assist in finding another facility. HUSSEIN made sure Ben was aware patient is ready for discharge. June Piña COMMERCIAL PORTFOLIO MANAGER LEFTY
[2022-11-10 12:45] LABS: Bedside Glucose 205 mg/dL (74-106)
--- NOTE | 2022-11-10 13:55 | PCM.TXEXTCAR ---
Diet Diet Order/Speech Therapy: 11/03/22 10:36 NPO [Diet: Nothing Per Oral] Routine Orders/Code Status Routine Lab Work: CBC and BMP Code Status: DNRCC-A Wound(s) Left eye ': Wound Type: Laceration mid abdomen: Wound Type: Surgical Incision Problem/Diagnosis (1) ABLA (acute blood loss anemia): Status: Acute Code(s): D62 - Acute posthemorrhagic anemia (2) PEG tube malfunction: Status: Acute Code(s): K94.23 - Gastrostomy malfunction (3) Aspiration pneumonia: Status: Inactive Code(s): J69.0 - Pneumonitis due to inhalation of food and vomit (4) HTN (hypertension): Status: Chronic Code(s): I10 - Essential (primary) hypertension (5) TREVOR (acute kidney injury): Status: Acute Code(s): N17.9 - Acute kidney failure, unspecified (6) Decreased left ventricular systolic function: Status: Acute Code(s): I51.9 - Heart disease, unspecified (7) Macrocytic anemia: Status: Acute Code(s): D53.9 - Nutritional anemia, unspecified (8) CKD (chronic kidney disease): Status: Chronic Code(s): N18.9 - Chronic kidney disease, unspecified Plan 1. Acute blood loss anemia secondary to pulling out a PEG tube ? We will consult GI for an upper endoscopy and replacement of the PEG tube though family was in to visit and mention to the nurse that they may not want the PEG tube replaced however they had left the room before I could come into discussed with them alternatives ? Will transfuse as necessary, given his recent cardiac history his threshold for transfusion will be a hemoglobin of 8 ? IV fluids ? Continue with PPI 2. Aspiration pneumonia/dysphagia ? She did have some emesis and now he has an elevated white count with a chest x-ray showing possible infiltrate in the right, will continue with Unasyn ? We will plan to reinsert PEG tube given his issues with dysphagia and probable gastroparesis 3. DM1/ESRD with dialysis M, W, F ? Accu-Cheks ACH ? Sliding scale insulin ? We will make adjustments as necessary ? We will consult nephrology for dialysis 4. CAD/HTN/HLD ? On his previous admission when he was here for 30 days he did have a non-STEMI, at that time he had a cardiac cath which demonstrated multivessel disease and medical management was recommended at that time. We will continue with his aspirin, Plavix once okay with GI ? Continue with Lipitor and Coreg as well as Norvasc once his PEG tube was reinserted ? We will hold his Lasix but continue with his hydralazine and his isosorbide dinitrate, once his PEG tube is reinserted 5. Severe protein calorie malnutrition ? Consult nutrition Congenital deafness and congenital blindness as well as an inability to read does make communication very challenging and also complicates his care. DVT: SCDs Allergies/Procedures Done in Hospital Allergies No Known Allergies Allergy (Verified 09/15/22 10:39) Procedures: Dialysis, Intubation and Peg tube placement Type of Care/Length of Stay Estimated LOS: Convalescent Care Less Than 30 days Type of Care Needed: Skilled Rehab Potential: Fair Prognosis: Fair Additional Orders/Day of Discharge Day of Discharge: 11/10/22 Dietary and Speech Recommendations Dietitian Recommendations/Changes: 1.) Currently via PEG tube: Vital AF 1.2 at 20mL/hour w/ 50mL H2O flush every 4 hours to provide 576 kcal, 36 grams protein, and 689 mL water. Current TF meeting~40% estimated calorie and ~45% estimated protein needs. 2.) Recommend advance TF as patient tolerates to better meet estimated nutrition needs and prevent further adrianne/pro depletion to goal rate of 55mL/hour w/ 70mL H2O flush every 4 hours to provide 1584 calories, 99 g protein, and 1490mL total fluid/day. 3.) Daily weights. Discharge Plan Admission Admit Date/Time: 10/30/22 22:32 Attending Provider: Tam Barney Primary Care Provider: Marta Brooks Consulting Providers: David Caro ; Tam Barney ; Damián Deleon ; Narinder Chaudhary ; Erik Olmstead ; Daniel Ibrahim ; Dashawn Solano ; Ana Lilia Weber NP ; Radha Landaverde ; Enzo Herrera Discharge Orders/Prescriptions Prescriptions: Continued latanoprost 0.005 % drops 1 drp OPHTHALMIC DAILY dorzolamide-timolol (PF) 2-0.5 % dropperette 1 drp OPHTHALMIC BID amlodipine 5 mg tablet 5 mg feeding tube DAILY ondansetron 4 mg tablet,disintegrating 4 mg PO Q6H PRN (Reason: nausea and vomiting) Qty: 30 0RF furosemide 40 mg tablet 40 mg feeding tube SuTuThSa isosorbide dinitrate 10 mg tablet 10 mg feeding tube BID clopidogrel 75 mg tablet 75 mg feeding tube DAILY aspirin 81 mg tablet,delayed release (DR/EC) 81 mg feeding tube BREAKFAST insulin lispro [Humalog KwikPen Insulin] 100 unit/mL insulin pen See Protocol subcut Q6H Protocol: 4. Sliding Scale Insulin High-Med Dosing Condition: 150-199 mg/dl = 2 units Condition: 200-259 mg/dl = 4 units Condition: 260-324 mg/dl = 6 units Condition: 325-374 mg/dl = 8 units Condition: 375-409 mg/dl = 10 units Condition: 410-449 mg/dl = 11 units Condition: Greater than 449 call physician Protocol Text: - Use for Total Daily Dose of Insulin 56-80 units - Patient who are insulin resistant or septic HIGH MEDIUM DOSING ALGORITHM polyethylene glycol 3350 17 gram Powder In Packet 17 g PO BID PRN (Reason: constipation) Qty: 100 0RF atorvastatin 40 mg tablet 40 mg G-tube QHS carvedilol 25 mg tablet 25 mg G-tube BID lansoprazole [Prevacid] 30 mg capsule,delayed release(DR/EC) 30 mg feeding tube BID hydralazine 50 mg tablet 50 mg G-tube TID metoclopramide HCl [Reglan] 10 mg tablet 10 mg PO TID menthol-zinc oxide [Calmoseptine] 0.44-20.6 % ointment 1 applic topical BID Protocol: *Topical Application Instructions APPLICATION INSTRUCTIONS: Apply to coccyx Rx Instructions: apply to coccyx insulin glargine-yfgn 100 unit/mL (3 mL) insulin pen 30 unit subcut 0600,1800 Discontinued clindamycin HCl [Cleocin HCl] 300 mg capsule 300 mg PO 4X/DAY levofloxacin 250 mg/10 mL solution 250 mg PO DAILY Rx Instructions: 10 mL by PEG tube every other day for 10 doses No Action (DME) pen needle, diabetic [Comfort EZ Pen [place]] 31 gauge x 5/16 needle See Rx Instructions .ROUTE .MEDSUPPLY Qty: 1,200 Rx Instructions: use to inject insulin 4 x qd (DME) blood sugar diagnostic [Accu-Chek Guide test strips] Strip See Rx Instructions .ROUTE .[facility] Qty: 100 8RF Rx Instructions: test 3 times daily Referrals / Follow Up: Marta Brooks NP-C [Primary Care Provider] - Disposition Disposition (needs filled in before D/C Order can be placed): [facility]
--- NOTE | 2022-11-10 13:59 | CASEMGMT ---
Patient's step son Ben came to [facility]. He asked HUSSEIN to try [facility]. HUSSEIN called [facility] and they do not take [employer]. HUSSEIN let Ben know. Ben said patient will have to go back to [facility]. Ben was upset regarding the care patient has been given. HUSSEIN let Ben know SW will say something to the admissions person at [facility]. HUSSEIN called Lainey and let her know that family is upset with patient's care. Lainey said someone will check in with patient and family. HUSSEIN let Ben know patient will be discharged back to [facility] today. June Piña OUTSIDE SALES ACCOUNT MANAGER LEFT[employer]
[2022-11-10 14:23] VITALS: BP 135/79; PULSE 86; RESP 15; TEMP 36.2; O2SAT 95
[2022-11-10 14:32] VITALS: BP 135/79; PULSE 86; RESP 15; TEMP 36.2; O2SAT 95
--- NOTE | 2022-11-10 15:08 | CASEMGMT ---
HUSSEIN arranged for patient to get picked up at 430 via cot. HUSSEIN notified RN, community youth secretary, and Ben via voice mail. HUSSEIN received a call from Lila, patient's sister. Lila was upset that patient is returning to [facility]. HUSSEIN explained when patient came in SW spoke with Ben and he agreed the plan is for patient to return to [facility] therefore plans were made for patient to return. It makes it difficult to change facilities the day before patient is to be discharged and insurance has already approved patient to return. Especially with patient as he will need dialysis transport which is not easy to find in this area. HUSSEIN let Lila know that they should talk with someone at [facility] about their concerns. HUSSEIN also let Lila know that if they are unhappy at [facility], they have to help them find another facility. Lila said she plans on talking with [facility] about their concerns and that is good to know they can help them find another facility. Plan: d/c back to [facility] under skilled level of care. Physicians transported via cot. June OLEA
--- NOTE | 2022-11-10 15:18 | PHA.DC.MR ---
Pharmacy Service has performed discharge medication reconciliation for this patient. The patient's discharge medication list was reviewed for discrepancies and discrepancies were resolved. Home Medications dorzolamide-timolol (PF) 2 %-0.5 % eye drops in a dropperette 1 drp ophthalmic (eye) BID eyes 01/04/20 latanoprost 0.005 % eye drops 1 drp ophthalmic (eye) DAILY eyes 01/04/20 pen needle, diabetic 31 gauge x 5/16 (Comfort EZ Pen [place]) #1,200 ea 01/04/20 blood sugar diagnostic (Accu-Chek Guide test strips) #100 ea 03/07/20 amlodipine 5 mg tablet 5 mg feeding tube DAILY BP 09/14/22 ondansetron 4 mg disintegrating tablet 4 mg PO Q6H PRN nausea and vomiting #30 tabs 10/19/22 aspirin 81 mg tablet,delayed release 81 mg feeding tube BREAKFAST blood thinner 10/21/22 clopidogrel 75 mg tablet 75 mg feeding tube DAILY blood thinner 10/21/22 furosemide 40 mg tablet 40 mg feeding tube SuTuThSa hypertension 10/21/22 insulin lispro 100 unit/mL subcutaneous pen (Humalog KwikPen (U-100) Insulin) See Protocol subcut Q6H DM 10/21/22 isosorbide dinitrate 10 mg tablet 10 mg feeding tube BID CKD 10/21/22 polyethylene glycol 3350 17 gram oral powder packet 17 g PO BID PRN constipation #100 ea 10/27/22 atorvastatin 40 mg tablet 40 mg G-tube QHS cholesterol 10/31/22 carvedilol 25 mg tablet 25 mg G-tube BID blood pressure 10/31/22 hydralazine 50 mg tablet 50 mg G-tube TID hypertension 10/31/22 insulin glargine-yfgn 100 unit/mL (3 mL) subcutaneous pen 30 unit subcut 0600,1800 DM 10/31/22 lansoprazole 30 mg capsule,delayed release (Prevacid) 30 mg feeding tube BID gerd 10/31/22 menthol 0.44 %-zinc oxide 20.6 % topical ointment (Calmoseptine) 1 applic topical BID redness 10/31/22 metoclopramide HCl 10 mg tablet (Reglan) 10 mg PO TID nausea 10/31/22
--- NOTE | 2022-11-10 15:30 | PCM.DC.SUM ---
Providers Date of Admission: 10/30/22 Primary Care Physician: ZELDA Virk Consultations 10/31/22 00:26 Consult: Gastroenterology Routine Consulting Provider: Damián Deleon Reason for Consult: Removed peg tube; abla EMERGENT Consult: No Notified: Yes Date Notified: 10/30/22 Time Notified: 22:43 Method of Notification: ED Physician Initiated Consult: Nephrology Routine Consulting Provider: Radha Landaverde Reason for Consult: ESRD on dialysis EMERGENT Consult: No Notified: Yes Date Notified: 10/31/22 Time Notified: 06:39 Method of Notification: Answering Service 11/03/22 06:30 Consult: Musical Instrument Supervisor / Pulmonary Medicine Routine Consulting Provider: Pulmonary Medicine [facility] Reason for Consult: Shortness of breath EMERGENT Consult: No Notified: Yes Date Notified: 11/03/22 Time Notified: 06:30 Method of Notification: Text Method of Consult:: In-Person Comments:: Notified by ROBBIE HALL Reason For Visit: ABLA, PEG TUBE Diagnosis Discharge Diagnosis (1) ABLA (acute blood loss anemia): Status: Acute Code(s): D62 - Acute posthemorrhagic anemia (2) PEG tube malfunction: Status: Acute Code(s): K94.23 - Gastrostomy malfunction (3) Aspiration pneumonia: Status: Inactive Code(s): J69.0 - Pneumonitis due to inhalation of food and vomit (4) HTN (hypertension): Status: Chronic Code(s): I10 - Essential (primary) hypertension (5) TREVOR (acute kidney injury): Status: Acute Code(s): N17.9 - Acute kidney failure, unspecified (6) Decreased left ventricular systolic function: Status: Acute Code(s): I51.9 - Heart disease, unspecified (7) Macrocytic anemia: Status: Acute Code(s): D53.9 - Nutritional anemia, unspecified (8) CKD (chronic kidney disease): Status: Chronic Code(s): N18.9 - Chronic kidney disease, unspecified Plan 1. Acute blood loss anemia secondary to pulling out a PEG tube ? We will consult GI for an upper endoscopy and replacement of the PEG tube though family was in to visit and mention to the nurse that they may not want the PEG tube replaced however they had left the room before I could come into discussed with them alternatives ? Will transfuse as necessary, given his recent cardiac history his threshold for transfusion will be a hemoglobin of 8 ? IV fluids ? Continue with PPI 2. Aspiration pneumonia/dysphagia ? She did have some emesis and now he has an elevated white count with a chest x-ray showing possible infiltrate in the right, will continue with Unasyn ? We will plan to reinsert PEG tube given his issues with dysphagia and probable gastroparesis 3. DM1/ESRD with dialysis M, W, F ? Accu-Cheks ACH ? Sliding scale insulin ? We will make adjustments as necessary ? We will consult nephrology for dialysis 4. CAD/HTN/HLD ? On his previous admission when he was here for 30 days he did have a non-STEMI, at that time he had a cardiac cath which demonstrated multivessel disease and medical management was recommended at that time. We will continue with his aspirin, Plavix once okay with GI ? Continue with Lipitor and Coreg as well as Norvasc once his PEG tube was reinserted ? We will hold his Lasix but continue with his hydralazine and his isosorbide dinitrate, once his PEG tube is reinserted 5. Severe protein calorie malnutrition ? Consult nutrition Congenital deafness and congenital blindness as well as an inability to read does make communication very challenging and also complicates his care. DVT: SCDs Medications at Discharge Home Medications dorzolamide-timolol (PF) 2 %-0.5 % eye drops in a dropperette 1 drp ophthalmic (eye) BID eyes 01/04/20 latanoprost 0.005 % eye drops 1 drp ophthalmic (eye) DAILY eyes 01/04/20 pen needle, diabetic 31 gauge x 5/16 (Comfort EZ Pen Roberts) #1,200 ea 01/04/20 blood sugar diagnostic (Accu-Chek Guide test strips) #100 ea 03/07/20 amlodipine 5 mg tablet 5 mg feeding tube DAILY BP 09/14/22 ondansetron 4 mg disintegrating tablet 4 mg PO Q6H PRN nausea and vomiting #30 tabs 10/19/22 aspirin 81 mg tablet,delayed release 81 mg feeding tube BREAKFAST blood thinner 10/21/22 clopidogrel 75 mg tablet 75 mg feeding tube DAILY blood thinner 10/21/22 furosemide 40 mg tablet 40 mg feeding tube SuTuThSa hypertension 10/21/22 insulin lispro 100 unit/mL subcutaneous pen (Humalog KwikPen (U-100) Insulin) See Protocol subcut Q6H DM 10/21/22 isosorbide dinitrate 10 mg tablet 10 mg feeding tube BID CKD 10/21/22 polyethylene glycol 3350 17 gram oral powder packet 17 g PO BID PRN constipation #100 ea 10/27/22 atorvastatin 40 mg tablet 40 mg G-tube QHS cholesterol 10/31/22 carvedilol 25 mg tablet 25 mg G-tube BID blood pressure 10/31/22 hydralazine 50 mg tablet 50 mg G-tube TID hypertension 10/31/22 insulin glargine-yfgn 100 unit/mL (3 mL) subcutaneous pen 30 unit subcut 0600,1800 DM 10/31/22 lansoprazole 30 mg capsule,delayed release (Prevacid) 30 mg feeding tube BID gerd 10/31/22 menthol 0.44 %-zinc oxide 20.6 % topical ointment (Calmoseptine) 1 applic topical BID redness 10/31/22 metoclopramide HCl 10 mg tablet (Reglan) 10 mg PO TID nausea 10/31/22 Hospital Course Operations None Procedures EGD and Intubation Summary of Care Provided Minutes Spent on Discharge: 40 Hospital Course: Per HPI: SCOTT BUTLER, is a 57 M with a significant history of congenital blindness and deafness; end-stage renal dialysis on dialysis Wednesdays and Fridays;? hyperlipidemia? hypertension and diabetes mellitus; and who lives at a assisted presenting to the? emergency department because his PEG tube had been? removed for unknown period of time. Also reportedly patient fell from his wheelchair at the assisted.? Of note? patient was noticed to have multiple episodes of vomiting.? At the emergency department patient was found to have coffee-ground emesis. Also, a? day before his presentation patient was treated at emergency department for aspiration pneumonia and discharged back to assisted. Patient was also hospitalized at our hospital ([facility]) from 10/21/2022 to 10/27/2022 for oozing gastric ulcer that was cauterized by heater probe. History was obtained from emergency department and patient's nurse at the ED since patient's is blind and deaf and cannot provide history.? Per emergency department doctor patient could not look at screen to see if a fig bar machine operator could be of help Hospital Course: 1.? Acute hypoxic respiratory failure most likely due to aspiration, multiple etiology: Patient is intubated on ventilator.? Musical Instrument Supervisor is consulted.? Repeat chest x-ray individually reviewed.? Lungs feels looks clear.? ET tube right midclavicular line. 11/06: Patient extubated in the morning.? On nasal cannula.? Patient has vomiting and GI is consulted. 11/07: Patient is being transferred to PCU.? Tube feed is started at 10 mL/min. 11/08: Continue tube feed.Increased to 20 mill per minute. 11/09: Monitoring for vomiting on tube feed.? Continue 20 mill per minute with no emesis as documented by nursing staff. 11/10/2022: He is stable for discharge I did attempt to communicate this with him we will plan to return to the assisted for continuing care. Of note during his hospitalization he was transition from a full code to a DNR CCA with intubation 2.? DKA: Labs suggestive of high anion gap metabolic acidosis with pH 7.08.? On restricted IV fluid and insulin drip. .? Acute blood loss anemia secondary to pulling out a PEG tube ?? GI consulted for an PEG tube replacement.? PEG tube replaced but has blood clots under dressing.? Transfuse PRBC with hemoglobin threshold of 8 g%. ? Continue with PPI 11/03: Hemoglobin dropped to 7.3, MCV 106 point.? Platelet count 509,000.? Transfuse 1 unit of PRBC. 11/04: Anion gap is closed.? Patient metabolic acidosis improved.? Bicarb is 31.? Insulin drip was transitioned to Lantus and sliding scale insulin. 11/05: Glucose 230 in BMP. 11/06: Glucose is controlled between 120 to 150 mg/dL. 11/07 glucose 183, A1c 6.9%. 11/10/2022: Continue with tube feeds at 20 cc/h continue with his insulin and monitor his blood sugar at the assisted 3.? Septic shock, multifactorial due to suspected aspiration pneumonia, hypovolemia from DKA: Patient was started on Levophed drip on 11/02 and is still on it.? Patient is not candidate for sepsis protocol for IV fluid as he had ischemic cardiomyopathy with recent non-STEMI and ischemic cardiomyopathy. 11/05: Patient is of Levophed drip since 3 AM.? Monitor BP.? Continue IV antibiotic 11/06: Patient maintaining blood pressure off Levophed.? On IV antibiotic, Zosyn. 11/08: BP on higher side 165/90.? Start on antihypertensive medication. 11/09: Patient completed 7 days of IV antibiotic Zosyn. 4.? Acute blood loss anemia on anemia of chronic disease: Patient hemoglobin dropped to 6.7 and 2 unit transfused.? Patient had EGD earlier which showed gastric ulcer with visible vessel, erosive esophagitis, gastroparesis on 11/01/2022. 11/05: Posttransfusion hemoglobin 9 g. 11/06: Hemoglobin 8.6 g%.? 11/07: On continuous PPI drip.? Hemoglobin 9.8. 11/10/2022: Hemoglobin has continued to rise, can resume his home Prevacid 5.? Aspiration pneumonia/dysphagia ? Chest x-ray shows right lower lobe infiltrate with history of vomiting, dysphagia and aspiration raises suspicion of aspiration pneumonia, continue with Unasyn Probable gastroparesis 11/08: GI note reviewed.? Vomiting probably involuntary regurgitation from painless unprovoked contraction of abdomen, rumination syndrome.? Slow tube feed along with Reglan 5 mg IV every 6 hourly along with azithromycin 500 mg daily. 11/10/2022: Continue with the Reglan on discharge for the likely gastric recess 6.? DM1/acute kidney injury on CKD unspecified? stage with dialysis M, W, F ? Accu-Cheks ACH ? Sliding scale insulin ? Wrinkle Chaser consulted 11/04: Patient on CRRT as per silversmith apprentice recommendation 11/08: Being followed by silversmith apprentice. 4.? CAD/HTN/HLD ? On his previous admission between 09/16/2022 to for multiple reasons non-STEMI, DKA, acute kidney injury on CKD.? At that time he had a cardiac cath which demonstrated multivessel disease and medical management was recommended at that time.? continue with his aspirin, Plavix once okay with GI His second admission from October 21 to October 27 was for upper GI bleed. ? Continue with Lipitor and Coreg as well as Norvasc once his PEG tube was reinserted 5.? Severe protein calorie malnutrition ? Consult nutrition Congenital deafness and congenital blindness as well as an inability to read does make communication very challenging and also complicates his care. Physical Exam Narrative General: Alert, no apparent distress HEENT: Atraumatic, normocephalic, deaf Oral: Moist Mucosa Neck: Supple, No JVD Lungs: Diminished, Normal air movement, No rhonchi, No wheeze, No rales Cardiovascular: Regular rate, Regular Rhythm, Normal S1, Normal S2, No murmurs Abdomen: Soft, Non Tender, Non-Distended, No Hepato-splenomegaly, PEG tube in place Extremities: No edema, Capillary Refill Less than 3 Seconds Skin: No rashes, No breakdown Musculoskeletal: No Tenderness to Palpation of Joints or Extremities Neurological: Moves his extremities however difficult to communicate intensive exam Psych/Mental Status: Flat affect, Appropriate Medical Records Data Medical Nutrition Assessment Dietitian: Malnutrition Criteria Met Start: 10/31/22 11:18 Freq: Status: Active Protocol: Document 11/09/22 10:50 RMA (Rec: 11/09/22 10:50 RMA [id number]) Nutrition Malnutrition Evidence of Malnutrition Exists Yes Malnutrition (severe): Acute Illness/Injury Evidenced By Suboptimal Energy Intake ( Severe),Weight Loss (Severe) Intake Problem Inadequate Oral Intake Etiology related to altered GI function /vomiting Signs/Symptoms as evidenced by NPO/holding PEG TF at this time Status Active Problem Clinical Problem Acute Disease or Injury Related Malnutrition Etiology severe, acute malnutrition related to inadequate energy intake d/t nausea, PEG displacement Signs/Symptoms as evidenced by unintentional wt loss of 4.1kg/6% x 9 days dining room captain; estimated enteral nutrition meeting <50% of estimated energy needs x 5 days over past 1-2 weeks Status Active Problem Recommendation Dietitian Recommendations/Changes 1.) Currently via PEG tube: Vital AF 1.2 at 20mL/hour w/ 50mL H2O flush every 4 hours to provide 576 kcal, 36 grams protein, and 689 mL water. Current TF meeting~40% estimated calorie and ~45% estimated protein needs. 2.) Recommend advance TF as patient tolerates to better meet estimated nutrition needs and prevent further adrianne/pro depletion to goal rate of 55mL /hour w/ 70mL H2O flush every 4 hours to provide 1584 calories, 99 g protein, and 1490mL total fluid/day. 3.) Daily weights. Weight / BMI Weight Weight: 139 lb Body Mass Index (BMI) 21.7 ABG / Lab / Microbiology Data Result Diagrams: 11/09/22 06:04 11/09/22 06:04 Laboratory: Laboratory Results - last 24 hr 11/09/22 18:23: POC Glucose 182 H 11/09/22 22:56: POC Glucose 184 H 11/10/22 06:32: POC Glucose 203 H 11/10/22 10:03: POC Glucose 208 H 11/10/22 12:18: POC Glucose 205 H Microbiology: Microbiology 11/03/22 11:00 Blood Culture (Wb) - Central Line Blood Culture - Final No growth in 5 days. 11/04/22 09:03 Stool Stool Occult Blood (JORDI) - Final 11/03/22 07:55 Sputum, Induced/Lukens Gram Stain - Final 11/03/22 07:55 Sputum, Induced/Lukens Respiratory Culture - Final Mixed normal respiratory amparo. No Streptococcus pneumoniae, beta-hemolytic Streptococcus or Staphylococcus aureus isolated. 11/03/22 11:00 Urine Catheter - Lopez Urine Culture - Final Culture exhibits no growth. Meaningful Use Info Meaningful Use Diagnoses (Choose all that apply): None applicable Discharge Plan Admission Admit Date/Time: 10/30/22 22:32 Attending Provider: Tam Barney Primary Care Provider: Marta Brooks Consulting Providers: David Caro ; Tam Barney ; Damián Deleon ; Narinder Chaudhary ; Erik Olmstead ; Daniel Ibrahim ; Dashawn Solano ; Ana Lilia Weber NP ; Radha Landaverde ; Enzo Herrera Discharge Orders/Prescriptions Prescriptions: Continued latanoprost 0.005 % drops 1 drp OPHTHALMIC DAILY dorzolamide-timolol (PF) 2-0.5 % dropperette 1 drp OPHTHALMIC BID amlodipine 5 mg tablet 5 mg feeding tube DAILY ondansetron 4 mg tablet,disintegrating 4 mg PO Q6H PRN (Reason: nausea and vomiting) Qty: 30 0RF furosemide 40 mg tablet 40 mg feeding tube SuTuThSa isosorbide dinitrate 10 mg tablet 10 mg feeding tube BID clopidogrel 75 mg tablet 75 mg feeding tube DAILY aspirin 81 mg tablet,delayed release (DR/EC) 81 mg feeding tube BREAKFAST insulin lispro [Humalog KwikPen Insulin] 100 unit/mL insulin pen See Protocol subcut Q6H Protocol: 4. Sliding Scale Insulin High-Med Dosing Condition: 150-199 mg/dl = 2 units Condition: 200-259 mg/dl = 4 units Condition: 260-324 mg/dl = 6 units Condition: 325-374 mg/dl = 8 units Condition: 375-409 mg/dl = 10 units Condition: 410-449 mg/dl = 11 units Condition: Greater than 449 call physician Protocol Text: - Use for Total Daily Dose of Insulin 56-80 units - Patient who are insulin resistant or septic HIGH MEDIUM DOSING ALGORITHM polyethylene glycol 3350 17 gram Powder In Packet 17 g PO BID PRN (Reason: constipation) Qty: 100 0RF atorvastatin 40 mg tablet 40 mg G-tube QHS carvedilol 25 mg tablet 25 mg G-tube BID lansoprazole [Prevacid] 30 mg capsule,delayed release(DR/EC) 30 mg feeding tube BID hydralazine 50 mg tablet 50 mg G-tube TID metoclopramide HCl [Reglan] 10 mg tablet 10 mg PO TID menthol-zinc oxide [Calmoseptine] 0.44-20.6 % ointment 1 applic topical BID Protocol: *Topical Application Instructions APPLICATION INSTRUCTIONS: Apply to coccyx Rx Instructions: apply to coccyx insulin glargine-yfgn 100 unit/mL (3 mL) insulin pen 30 unit subcut 0600,1800 Discontinued clindamycin HCl [Cleocin HCl] 300 mg capsule 300 mg PO 4X/DAY levofloxacin 250 mg/10 mL solution 250 mg PO DAILY Rx Instructions: 10 mL by PEG tube every other day for 10 doses No Action (DME) pen needle, diabetic [Comfort EZ Pen Roberts] 31 gauge x 5/16 needle See Rx Instructions .ROUTE .MEDSUPPLY Qty: 1,200 Rx Instructions: use to inject insulin 4 x qd (DME) blood sugar diagnostic [Accu-Chek Guide test strips] Strip See Rx Instructions .ROUTE .MEDSUPPLY Qty: 100 8RF Rx Instructions: test 3 times daily Referrals / Follow Up: Marta Brooks NP-C [Primary Care Provider] - Disposition Disposition (needs filled in before D/C Order can be placed): [facility] Facility Charges/Coding Visit Charges Inpatient E&M: 72460 Disch Hosp >30min
--- NOTE | 2022-11-10 15:41 | CASEMGMT ---
D/c orders, COVID test, and meat pickler time sent to [facility]. Plan: d/c back to [facility] under skilled level of care. Physicians transported via cot. June OLEA
--- NOTE | 2022-11-10 16:34 | NURSING ---
1640 Called report to ISABEL Leroy at the [facility].
== END 2022-11-10 16:42 | disposition skilled nursing facility (03) | DRG 377 ==
LOC: ED 22:39 → PCU 23:11 → MS3 11-02 19:05 → ICU 11-03 09:10 → PCU 11-09 13:10
PROVIDERS: Anesthesiology; Internal Medicine; Internal Medicine Critical Care Medicine; Internal Medicine Gastroenterology; Internal Medicine Nephrology; Admitting Provider Hospitalist; Emergency Provider Emergency Medicine; PCP Nurse Practitioner Family; Visit Provider Family Medicine
PROC: 0DJ08ZZ Inspection of Upper Intestinal Tract, Via Natural or Artificial Opening Endoscopic (ICD-10-PCS; CPT 43235; principal; 2022-11-01 13:15)
DX: K25.4 Chronic or unspecified gastric ulcer with hemorrhage (principal); J96.01 Acute respiratory failure with hypoxia; R57.8 Other shock; J69.0 Pneumonitis due to inhalation of food and vomit; E43 Unspecified severe protein-calorie malnutrition; N18.6 End stage renal disease; J96.21 Acute and chronic respiratory failure with hypoxia; I13.2 Hypertensive heart and chronic kidney disease with heart failure and with stage 5 chronic kidney disease, or end stage renal disease; N17.9 Acute kidney failure, unspecified; I50.22 Chronic systolic (congestive) heart failure; K94.23 Gastrostomy malfunction; D62 Acute posthemorrhagic anemia; E10.43 Type 1 diabetes mellitus with diabetic autonomic (poly)neuropathy; E10.319 Type 1 diabetes mellitus with unspecified diabetic retinopathy without macular edema; D63.8 Anemia in other chronic diseases classified elsewhere; K31.84 Gastroparesis; E86.1 Hypovolemia; E10.22 Type 1 diabetes mellitus with diabetic chronic kidney disease; E10.10 Type 1 diabetes mellitus with ketoacidosis without coma; Z99.2 Dependence on renal dialysis; Z79.4 Long term (current) use of insulin; E78.5 Hyperlipidemia, unspecified; I25.2 Old myocardial infarction; I25.5 Ischemic cardiomyopathy; I25.10 Atherosclerotic heart disease of native coronary artery without angina pectoris; E87.5 Hyperkalemia; H54.7 Unspecified visual loss; K20.90 Esophagitis, unspecified without bleeding; S01.81XA Laceration without foreign body of other part of head, initial encounter; W06.XXXA Fall from bed, initial encounter; H90.5 Unspecified sensorineural hearing loss; Z79.02 Long term (current) use of antithrombotics/antiplatelets; Z79.82 Long term (current) use of aspirin; Z66 Do not resuscitate; Z79.899 Other long term (current) drug therapy; Z68.21 Body mass index [BMI] 21.0-21.9, adult; Y92.129 Unspecified place in nursing home as the place of occurrence of the external cause
CPT/HCPCS: 31500; 31720; 36415; 36600; 70450; 71045; 71250; 72125; 72170; 74018; 80048; 80053; 80069; 80076; 80202; 82009; 82274; 82550; 82803; 82962; 83036; 83690; 83735; 84100; 84478; 85014; 85018; 85025; 85610; 85730; 86850; 86900; 86901; 86920; 86922; 87040; 87070; 87086; 87205; 87426; 87641; 90937; 90947; 93005; 94002; 94003; 94640; 94660; 94668; 96365; 96366; 96375; 97110; 97162; 97166; 97530; 97535; 97802; 97803; 99252; 99285; J7030; J7040; J7050; J7120; P9016; A4216; C1751; G0257; G0463; J0295; J1940; J2405; J2916; J3010; J3490; J7799

== ENCOUNTER 2022-11-14 05:53 | Emergency (ER) | payer MEDICARE, SELFPAY ==
[2022-11-14 05:55] VITALS: BP 139/78; PULSE 70; RESP 16; TEMP 36.4; O2SAT 99; BMI 23.1
--- NOTE | 2022-11-14 06:25 | RAD_ITS ---
HISTORY: cough. TECHNIQUE: XR Chest 1 View. COMPARISON: 11/03/2022. FINDINGS: CARDIOMEDIASTINAL BORDERS: Right internal jugular central venous catheter and endotracheal tube removed. Left internal jugular central venous catheter tip again at the superior cavoatrial junction. Cardiomediastinal borders unchanged with mild prominence of the central pulmonary arteries. LUNGS: Decreased right upper lobe opacities. PLEURA: Trace lucency at the right apex. OSSEOUS STRUCTURES: Degenerative change. RAD/Chest 1 View (Portable) IMPRESSION: Possible trace right apical pneumothorax. Decreased right upper lobe opacities. Electronically Signed: Sirisha Frey MD at 8:05 EST ,
[2022-11-14 06:39] LABS: Absolute Lymphocyte Count 1.19 X10^3/uL (0.83-4.51); Absolute Neutrophil Count 5.5 X10^3/uL (2.0-7.7); Basophil# 0.15 X10^3/uL; Basophil% 1.8 % (0-1); Eosinophil# 0.63 X10^3/uL; Eosinophils% 7.5 % (0-5); Hemoglobin 8.8 g/dL (13.0-16.5); Lymphocyte # 1.19 X10^3/ul (0.83-4.51); Lymphocyte % 14.2 % (19-41); Mean Corp Hgb Conc 30.3 g/dL (32-36); Mean Corpuscular Hgb 29.3 pg (27.0-32.0); Mean Corpuscular Volume 96.7 fL (80-94); Mean Platelet Vol. 10.9 fl (6.2-12.0); Monocyte# 0.87 X10^3/uL; Monocyte% 10.4 % (0-10); NRBC Flagged by Analyzer 0 % (0-5); Neutrophil # 5.52 X10^3/uL (2.7-7.7); Neutrophil % 65.7 % (47-70); Platelet Count 393 K/mm3 (150-450); RBC Distribution Width CV 12.6 % (11.6-14.6); RBC Distribution Width SD 44.5 fl (35.1-43.9); White Blood Count 8.4 K/mm3 (4.4-11.0)
[2022-11-14 06:47] LABS: Prothrombin Time (Protime)PT. 12.9 SECONDS (11.7-14.9)
[2022-11-14 06:49] LABS: Partial Thromboplast Time 31.3 Seconds (24.1-36.2)
[2022-11-14 06:52] LABS: Anion Gap 18 (5-15); BUN 37 mg/dL (7-18); BUN/Creat Ratio 12.6 RATIO (10-20); Calcium,Total 7.9 mg/dL (8.5-10.1); Chloride 92 mmol/L (98-107); Creatinine, Serum 2.94 mg/dL (0.70-1.30); EST Glomerular Filtration Rate 24 mL/min (>60); Est Glom Filt Rate - Afr Amer 28 mL/min (>60); Estimated Creatinine Clearance 25.61 ml/min; Glucose 332 mg/dL (74-106); Potassium 3.8 mmol/L (3.5-5.1); Sodium Level 135 mmol/L (136-145)
--- NOTE | 2022-11-14 07:25 | EX.ED.DYSGE1 ---
HPI History of Present Illness Chief Complaint: GI Bleed Narrative Narrative: Patient is a 57-year-old male who is deaf and mute with past medical history of chronic kidney disease on dialysis diabetes and previous GI bleed. He was admitted to the hospital secondary to aspiration pneumonia with GI bleed approximately 10-14 days ago. He underwent a EGD by gastroenterology and was found to have a small ulcer that was controlled with heat cautery. Reportedly patient has been doing well and fdc started him back on his aspirin and Plavix. He was then found this morning with a few bouts of coffee-ground emesis concerning for return of GI bleed and therefore was sent to the hospital for evaluation. [facility] Medical History Acute renal failure Acute respiratory failure with hypoxia Anemia CAD (coronary artery disease) CKD (chronic kidney disease) Congenital deafness Deaf Decreased left ventricular systolic function Diabetes HTN (hypertension) Hyperlipidemia Hypertensive emergency Metabolic acidosis Non-ST elevated myocardial infarction (non-STEMI) NSTEMI (non-ST elevated myocardial infarction) On mechanically assisted ventilation Pneumonia Regurgitation of food Stroke Vision problem Vomiting Home Medications dorzolamide-timolol (PF) 2 %-0.5 % eye drops in a dropperette 1 drp ophthalmic (eye) BID eyes 01/04/20 [History Last Taken 10/21/22] latanoprost 0.005 % eye drops 1 drp ophthalmic (eye) DAILY eyes 01/04/20 [History Last Taken 10/21/22] pen needle, diabetic 31 gauge x 5/16 (Comfort EZ Pen [place]) #1,200 ea 01/04/20 [History Last Taken Unknown] blood sugar diagnostic (Accu-Chek Guide test strips) #100 ea 03/07/20 [Rx Last Taken Unknown] amlodipine 5 mg tablet 5 mg feeding tube DAILY BP 09/14/22 [History Last Taken 10/21/22] ondansetron 4 mg disintegrating tablet 4 mg PO Q6H PRN nausea and vomiting #30 tabs 10/19/22 [Rx Last Taken 10/21/22] aspirin 81 mg tablet,delayed release 81 mg feeding tube BREAKFAST blood thinner 10/21/22 [History Last Taken 10/21/22] clopidogrel 75 mg tablet 75 mg feeding tube DAILY blood thinner 10/21/22 [History Last Taken 10/21/22] furosemide 40 mg tablet 40 mg feeding tube SuTuThSa hypertension 10/21/22 [History Last Taken 10/20/22] insulin lispro 100 unit/mL subcutaneous pen (Humalog KwikPen (U-100) Insulin) See Protocol subcut Q6H DM 10/21/22 [History Last Taken 10/21/22] isosorbide dinitrate 10 mg tablet 10 mg feeding tube BID CKD 10/21/22 [History Last Taken 10/21/22] polyethylene glycol 3350 17 gram oral powder packet 17 g PO BID PRN constipation #100 ea 10/27/22 [Rx Last Taken Unknown] atorvastatin 40 mg tablet 40 mg G-tube QHS cholesterol 10/31/22 [History Last Taken Unknown] carvedilol 25 mg tablet 25 mg G-tube BID blood pressure 10/31/22 [History Last Taken Unknown] hydralazine 50 mg tablet 50 mg G-tube TID hypertension 10/31/22 [History Last Taken Unknown] insulin glargine-yfgn 100 unit/mL (3 mL) subcutaneous pen 30 unit subcut 0600,1800 DM 10/31/22 [History Last Taken Unknown] lansoprazole 30 mg capsule,delayed release (Prevacid) 30 mg feeding tube BID gerd 10/31/22 [History Last Taken Unknown] menthol 0.44 %-zinc oxide 20.6 % topical ointment (Calmoseptine) 1 applic topical BID redness 10/31/22 [History Last Taken Unknown] metoclopramide HCl 10 mg tablet (Reglan) 10 mg PO TID nausea 10/31/22 [History Last Taken Unknown] Allergy/AdvReac Type Severity Reaction Status Date / Time No Known Allergies Allergy Verified 11/14/22 05:58 Family History Mother Diabetes Deaf Surgical History S/P percutaneous endoscopic gastrostomy (PEG) tube placement Social History Smoking Status: Never smoker alcohol intake: never substance use type: does not use what type of physical activity do you participate in: none ROS ROS ED ROS Narrative Please note review of systems was obtained using a sign language/field technician device Constitutional Constitutional ED: Denies chills or fever(s) ENT ENT ED: Denies sore throat Cardiovascular Cardiovascular: Denies chest pain Respiratory/Chest Respiratory/Chest: Reports cough and dyspnea Gastrointestinal Gastrointestinal: Reports nausea and vomiting; Denies abdominal pain or diarrhea Musculoskeletal Musculoskeletal: Denies myalgias Integumentary Denies rash Neurologic Neurologic: Denies headache(s) Hematologic/Lymphatic Hematologic/Lymphatic: Reports easy bleeding and easy bruising EXAM Physical Exam Const Vital Signs: 11/14/22 05:55 Temperature 97.5 F L Temperature Source Temporal Pulse Rate 70 Respiratory Rate 16 Blood Pressure 139/78 H Blood Pressure Mean 98 Pulse Ox 99 Oxygen Delivery Method Room Air Positive well nourished and well developed General Appearance ED: well developed HEENT HEENT Narrative: Patient does have a dark film across his tongue most consistent with recent upper GI bleed/hematemesis No airway edema or compromise Eyes PERRL and EOMs intact bilaterally General Eye ED: Yes pale conjunctiva Neck supple and no JVD Neck Narrative: No crepitance palpated Chest Wall Chest Narrative: Patient has dialysis catheter in his left chest wall without surrounding secondary changes to suggest infection Resp normal respiratory effort and clear to auscultation bilaterally Resp Narrative: No nasal flaring retractions tachypnea or accessory muscle use Cardio regular rate and regular rhythm GI normal to inspection, nondistended, normoactive bowel sounds, non-tender, non-distended and no masses GI Narrative: PEG tube is in place in the upper mid abdomen without surrounding soft tissue changes to suggest infection. There is no abdominal distention tension noted either no voluntary guarding or rigidity. No pulsatile mass Auscultation: normoactive bowel sounds Palpation: soft Narrative: Rectal exam displays dark/melanotic stool with normal rectal tone Extremity normal to inspection Neuro CN's II-XII intact bilaterally Neuro Narrative: Patient is at his baseline mental status with chronic deficits but no new or acute findings Sensorium / Orientation: alert Psych Psych Narrative: Patient has a flat affect Skin no rashes or lesions noted Skin Narrative: Capillary refill is less than 3 seconds MDM MDM MDM Narrative Medical decision making narrative: Patient presented to the ER with stable vitals and in no acute distress. He did have a bout of emesis and it appeared coffee-ground in color so it was sent for Gastroccult. Rectal exam also showed changes consistent with having GI bleed. Despite these changes the patient's hemoglobin remains above transfusion value at 8.8. As the patient has a known ulcer and recently was scoped by gastroenterology and underwent treatment with heat cauterization Dr. Deleon/KIRTI was contacted upon his arrival. The nursing reports that patient's been restarted on aspirin and Plavix and Dr. Deleon feels this is most likely the cause of the repeat bleed. At this time as he is hemodynamically stable and his hemoglobin is not at a transfusion level Dr. Deleon recommends that aspirin and Plavix be stopped and he continue his proton pump inhibitor which should cause the bleeding to resolve on its own. He does not recommend repeat scoping at this time as the patient is hemodynamically stable and not requiring blood transfusion. Therefore at this time fdc will be advised to hold the patient's aspirin and Plavix but continue his other medications including his proton pump inhibitor but as he is not showing signs of respiratory distress or aspiration pneumonia or need for acute transfusion he will be discharged back to the fdc Lab Data Attestation: I reviewed the patient's lab results. Labs: Laboratory Results - last 24 hr 11/14/22 11/14/22 11/14/22 06:25 06:25 06:25 WBC 8.4 RBC 3.00 L Hgb 8.8 L Hct 29.0 L MCV 96.7 H MCH 29.3 MCHC 30.3 L RDW Std Deviation 44.5 H RDW Coeff of Jenifer 12.6 Plt Count 393 MPV 10.9 Immature Gran % (Auto) 0.400 Neut % (Auto) 65.7 Lymph % (Auto) 14.2 L [place] % (Auto) 10.4 H Eos % (Auto) 7.5 H Baso % (Auto) 1.8 H Absolute Neuts (auto) 5.5 Absolute Lymphs (auto) 1.19 Nucleated RBC % 0 PT 12.9 INR 1.0 APTT 31.3 Sodium 135 L Potassium 3.8 Chloride 92 L Carbon Dioxide 25.0 Anion Gap 18 H BUN 37 H Creatinine 2.94 H Estim Creat Clear Calc 25.61 Est GFR (MDRD) Af Amer 28 L Est GFR (MDRD) Non-Af 24 L BUN/Creatinine Ratio 12.6 Glucose 332 H Calcium 7.9 L Blood Type Antibody Screen 11/14/22 06:25 WBC RBC Hgb Hct MCV MCH MCHC RDW Std Deviation RDW Coeff of Jenifer Plt Count MPV Immature Gran % (Auto) Neut % (Auto) Lymph % (Auto) [place] % (Auto) Eos % (Auto) Baso % (Auto) Absolute Neuts (auto) Absolute Lymphs (auto) Nucleated RBC % PT INR APTT Sodium Potassium Chloride Carbon Dioxide Anion Gap BUN Creatinine Estim Creat Clear Calc Est GFR (MDRD) Af Amer Est GFR (MDRD) Non-Af BUN/Creatinine Ratio Glucose Calcium Blood Type O POSITIVE Antibody Screen NEGATIVE Radiography Diagnostic Testin view chest x-ray as interpreted by the emergency medicine physician reveals no acute infiltrate pneumothorax or pleural effusion Discharge Plan Triage Chief Complaint: GI Bleed ED Provider: Pranay Castro Dx/Rx/DC Orders Clinical Impression: ESRD on dialysis, Type 1 diabetes, GI (gastrointestinal bleed) Instructions: GI Bleeding Causes and Tests Prescriptions: No Action (DME) pen needle, diabetic [Comfort EZ Pen [place]] 31 gauge x 5/16 needle See Rx Instructions .ROUTE .MEDSUPPLY Qty: 1,200 Rx Instructions: use to inject insulin 4 x qd latanoprost 0.005 % drops 1 drp OPHTHALMIC DAILY dorzolamide-timolol (PF) 2-0.5 % dropperette 1 drp OPHTHALMIC BID (DME) blood sugar diagnostic [Accu-Chek Guide test strips] Strip See Rx Instructions .ROUTE .MEDSUPPLY Qty: 100 8RF Rx Instructions: test 3 times daily amlodipine 5 mg tablet 5 mg feeding tube DAILY ondansetron 4 mg tablet,disintegrating 4 mg PO Q6H PRN (Reason: nausea and vomiting) Qty: 30 0RF furosemide 40 mg tablet 40 mg feeding tube SuTuThSa isosorbide dinitrate 10 mg tablet 10 mg feeding tube BID clopidogrel 75 mg tablet 75 mg feeding tube DAILY aspirin 81 mg tablet,delayed release (DR/EC) 81 mg feeding tube BREAKFAST insulin lispro [Humalog KwikPen Insulin] 100 unit/mL insulin pen See Protocol subcut Q6H Protocol: 4. Sliding Scale Insulin High-Med Dosing Condition: 150-199 mg/dl = 2 units Condition: 200-259 mg/dl = 4 units Condition: 260-324 mg/dl = 6 units Condition: 325-374 mg/dl = 8 units Condition: 375-409 mg/dl = 10 units Condition: 410-449 mg/dl = 11 units Condition: Greater than 449 call physician Protocol Text: - Use for Total Daily Dose of Insulin 56-80 units - Patient who are insulin resistant or septic HIGH MEDIUM DOSING ALGORITHM polyethylene glycol 3350 17 gram Powder In Packet 17 g PO BID PRN (Reason: constipation) Qty: 100 0RF atorvastatin 40 mg tablet 40 mg G-tube QHS carvedilol 25 mg tablet 25 mg G-tube BID lansoprazole [Prevacid] 30 mg capsule,delayed release(DR/EC) 30 mg feeding tube BID hydralazine 50 mg tablet 50 mg G-tube TID metoclopramide HCl [Reglan] 10 mg tablet 10 mg PO TID menthol-zinc oxide [Calmoseptine] 0.44-20.6 % ointment 1 applic topical BID Protocol: *Topical Application Instructions APPLICATION INSTRUCTIONS: Apply to coccyx Rx Instructions: apply to coccyx insulin glargine-yfgn 100 unit/mL (3 mL) insulin pen 30 unit subcut 0600,1800 Primary Care Provider: Marta Brooks Referrals: Marta Brooks, SEALING AND CANCELING MACHINE OPERATOR-C [Primary Care Provider] - Activity Restrictions/Additional Instructions: Please stop the patient's aspirin and Plavix. Gastroenterology feels this is the cause of his recurrent bleeding from his stomach ulcer. Please continue all of his other medications and ensure he is taking his proton pump inhibitor/Prevacid in order to treat the stomach ulcer which is the cause of his symptoms. If performing these treatments fails to improve symptoms or you have further concerns please return to the ER for repeat evaluation Disposition Disposition: Home, Self Care
[2022-11-14 09:15] VITALS: BP 126/60; PULSE 101; RESP 16; TEMP 36.6; O2SAT 100
--- NOTE | 2022-11-14 10:22 | NURSING ---
report called to the amor chacko
== END 2022-11-14 10:40 | disposition home or self-care (01) ==
PROVIDERS: Emergency Provider Emergency Medicine; PCP Nurse Practitioner Family; Visit Provider Emergency Medicine
DX: K92.2 Gastrointestinal hemorrhage, unspecified (principal); Z99.2 Dependence on renal dialysis; E10.22 Type 1 diabetes mellitus with diabetic chronic kidney disease; N18.6 End stage renal disease; I12.0 Hypertensive chronic kidney disease with stage 5 chronic kidney disease or end stage renal disease; E78.5 Hyperlipidemia, unspecified; I25.10 Atherosclerotic heart disease of native coronary artery without angina pectoris; R05.9 Cough, unspecified; R06.00 Dyspnea, unspecified; R11.2 Nausea with vomiting, unspecified; H10.89 Other conjunctivitis; R19.5 Other fecal abnormalities; R91.8 Other nonspecific abnormal finding of lung field
CPT/HCPCS: 96366; 96365; 99283; 71045; 80048; 82271; 82274; 85025; 85610; 85730; 86850; 86900; 86901; J7030; A4216; J3490

== ENCOUNTER 2022-11-16 13:21 | Inpatient (IN) | payer MEDICARE, SELFPAY ==
[2022-11-16 13:22] VITALS: BP 114/69; PULSE 118; RESP 18; TEMP 36.5; O2SAT 96; BMI 22.1
[2022-11-16 13:58] LABS: Absolute Lymphocyte Count 1.13 X10^3/uL (0.83-4.51); Absolute Neutrophil Count 10.1 X10^3/uL (2.0-7.7); Basophil% 0.8 % (0-1); Eosinophil# 0.14 X10^3/uL; Eosinophils% 1.1 % (0-5); Hematocrit 26.2 % (40-54); Hemoglobin 8.7 g/dL (13.0-16.5); Lymphocyte # 1.13 X10^3/ul (0.83-4.51); Lymphocyte % 9.1 % (19-41); Mean Corp Hgb Conc 33.2 g/dL (32-36); Mean Corpuscular Hgb 30.2 pg (27.0-32.0); Mean Platelet Vol. 10.3 fl (6.2-12.0); Monocyte# 0.83 X10^3/uL; Monocyte% 6.7 % (0-10); NRBC Flagged by Analyzer 0 % (0-5); Neutrophil # 10.12 X10^3/uL (2.7-7.7); Neutrophil % 81.7 % (47-70); Platelet Count 430 K/mm3 (150-450); RBC Distribution Width SD 42.7 fl (35.1-43.9); Red Blood Count 2.88 M/mm3 (4.6-6.2); White Blood Count 12.4 K/mm3 (4.4-11.0)
[2022-11-16 14:08] LABS: Prothrombin Time (Protime)PT. 12.7 SECONDS (11.7-14.9)
[2022-11-16 14:09] LABS: Partial Thromboplast Time 26.8 Seconds (24.1-36.2)
[2022-11-16 14:10] LABS: Anion Gap 12 (5-15); BUN 57 mg/dL (7-18); BUN/Creat Ratio 8.9 RATIO (10-20); Chloride 95 mmol/L (98-107); Creatinine, Serum 6.41 mg/dL (0.70-1.30); EST Glomerular Filtration Rate 10 mL/min (>60); Est Glom Filt Rate - Afr Amer 12 mL/min (>60); Estimated Creatinine Clearance 11.37 ml/min; Glucose 91 mg/dL (74-106); Potassium 3.1 mmol/L (3.5-5.1); Sodium Level 144 mmol/L (136-145)
--- NOTE | 2022-11-16 14:38 | EDS_ITS ---
HPI HPI - GI History of Present Illness Chief Complaint: GI Bleed Informant: patient Narrative Narrative: Patient evaluated through signal mechanic service. Sent in from dialysis. Coffee-ground emesis. Patient denies any nausea or abdominal pain. However history of difficult with certified court/medical interpreter service. Apparent history of stroke and coronary disease. Medications he is noted to be on aspirin and Plavix. Presented on the monitor systolic blood pressure 89. He is dialysis patient with the left chest Vas-Cath. He is denying any symptoms. Records reviewed after evaluation history of upper GI bleed. He had endoscopy October 22 of last month when admitted finding of a gastric ulcer that required heat probe cauterization. He is also seen 2 days ago reported coffee-ground emesis multiple episodes, discussion with Dr. Deleon in the ED, hold aspirin and Plavix and hopefully will be self-limiting. [facility] Medical History Acute renal failure Acute respiratory failure with hypoxia Anemia CAD (coronary artery disease) CKD (chronic kidney disease) Congenital deafness Deaf Decreased left ventricular systolic function Diabetes HTN (hypertension) Hyperlipidemia Hypertensive emergency Metabolic acidosis Non-ST elevated myocardial infarction (non-STEMI) NSTEMI (non-ST elevated myocardial infarction) On mechanically assisted ventilation Pneumonia Regurgitation of food Stroke Vision problem Vomiting Home Medications dorzolamide-timolol (PF) 2 %-0.5 % eye drops in a dropperette 1 drp ophthalmic (eye) BID eyes 01/04/20 [History Last Taken 11/16/22] latanoprost 0.005 % eye drops 1 drp ophthalmic (eye) DAILY eyes 01/04/20 [History Last Taken 11/16/22] amlodipine 5 mg tablet 5 mg feeding tube DAILY BP 09/14/22 [History Last Taken 11/16/22] ondansetron 4 mg disintegrating tablet 4 mg PO Q6H PRN nausea and vomiting #30 tabs 10/19/22 [Rx Last Taken 10/21/22] furosemide 40 mg tablet 40 mg feeding tube SuTuThSa hypertension 10/21/22 [History Last Taken 11/15/22] insulin lispro 100 unit/mL subcutaneous pen (Humalog KwikPen (U-100) Insulin) See Protocol subcut Q6H DM 10/21/22 [History Last Taken 11/15/22] isosorbide dinitrate 10 mg tablet 10 mg feeding tube BID CKD 10/21/22 [History Last Taken 11/16/22] polyethylene glycol 3350 17 gram oral powder packet 17 g PO BID PRN constipation #100 ea 10/27/22 [Rx Last Taken Unknown] atorvastatin 40 mg tablet 40 mg G-tube QHS cholesterol 10/31/22 [History Last Taken 11/15/22] carvedilol 25 mg tablet 25 mg G-tube BID blood pressure 10/31/22 [History Last Taken 11/15/22] hydralazine 50 mg tablet 50 mg G-tube TID hypertension 10/31/22 [History Last Taken 11/16/22] insulin glargine-yfgn 100 unit/mL (3 mL) subcutaneous pen 30 unit subcut 0600,1800 DM 10/31/22 [History Last Taken 11/14/22] lansoprazole 30 mg capsule,delayed release (Prevacid) 30 mg feeding tube BID gerd 10/31/22 [History Last Taken 11/16/22] menthol 0.44 %-zinc oxide 20.6 % topical ointment (Calmoseptine) 1 applic topical BID redness 10/31/22 [History Last Taken Unknown] metoclopramide HCl 10 mg tablet (Reglan) 10 mg PO TID nausea 10/31/22 [History Last Taken 11/16/22] Allergy/AdvReac Type Severity Reaction Status Date / Time No Known Allergies Allergy Verified 11/16/22 13:31 Family History Mother Diabetes Deaf Surgical History S/P percutaneous endoscopic gastrostomy (PEG) tube placement Social History (Updated 11/16/22 @ 15:[address] Negrita Rain MD) housing: pen[facility]entiary Smoking Status: Never smoker alcohol intake: never substance use type: does not use what type of physical activity do you participate in: none ROS ROS ED Review of Systems ROS Unobtainable: due to mental condition Gastrointestinal Gastrointestinal: Denies abdominal pain EXAM Physical Exam Const Vital Signs: 11/16/22 13:22 Temperature 97.7 F L Temperature Source Oral Pulse Rate 118 H Respiratory Rate 18 Blood Pressure 114/69 Blood Pressure Mean 84 Pulse Ox 96 Oxygen Delivery Method Room Air Positive cachectic; Negative for well nourished Constitutional Narrative: Nontoxic General Appearance ED: cachectic and NAD Nutritional Appearance: cachectic HEENT Reports moist mucous membranes normocephalic and atraumatic Eyes PERRL, EOMs intact bilaterally and conjunctivae normal General Eye ED: Yes normal appearance of both eyes Neck no lymphadenopathy and supple General: Negative for tenderness Chest Wall Chest Narrative: Left upper chest Vas-Cath, dressing with dark brown dried drainage. Chest: Negative for tenderness Resp normal respiratory effort and normal air movement Effort and Inspection: symmetric chest movement; Negative for respiratory distress Cardio regular rate, regular rhythm and no murmurs Peripheral Pulses: pulses 2+ throughout GI normal to inspection, nondistended, normoactive bowel sounds and non-tender GI Narrative: PEG tube clean, dry, intact, soft abdomen. Palpation: Negative for guarding or rebound tenderness present Back/Spine no CVA tenderness and no thoracic nor lumbar tenderness Extremity normal to inspection General Extremety ED: Negative for edema or tenderness General Extremity: Negative for edema Neuro oriented x3 Neuro Narrative: Residual weakness decreased movement right upper extremity compared to the left. There is movement bilateral lower extremity. Sensorium / Orientation: awake and alert Skin no rashes or lesions noted and no wounds MDM MDM MDM Narrative Medical decision making narrative: Interventions / MDM: Differential diagnosis: Upper GI bleed, gastric ulcer, gastritis, anemia Diagnosis considered but do not suspect: Lower GI bleed, however no bright red blood reported. My EKG interpretation: N/A Imaging independently reviewed and interpreted by myself: N/A External documents reviewed: Previous inpatient notes and procedures and ED notes. Test considered but not ordered:N/A ED course: Patient given 500 cc bolus of fluids, with coffee-ground emesis Protonix IV was given. I did recheck labs hemoglobin 8.7 it was 8.8, 2 days ago Blood pressure improved. Creatinine up at 6.4 BUN 57 he is dialysis patient. Potassium 3.1. I spoke with Dr. Deleon who knows him well, with recurrent coffee-ground emesis, he recommended observation admissions to [facility], Protonix 40 mg twice daily. Intervention if needed. Currently from the note fr om the ED 2 days ago plan was holding aspirin and Plavix at the nursing facility. Re-evaluation: stable and improved Disposition discussed with patient/family/significant other: Hospitalist, Dr. White Case discussed with consulting clinician: Gastroenterology, Dr. Deleon Lab Data Attestation: I reviewed the patient's lab results. Labs: Laboratory Results - last 24 hr 11/16/22 11/16/22 11/16/22 13:50 13:50 13:50 WBC 12.4 H RBC 2.88 L Hgb 8.7 L Hct 26.2 L MCV 91.0 D MCH 30.2 MCHC 33.2 D RDW Std Deviation 42.7 RDW Coeff of Jenifer 13.0 Plt Count 430 MPV 10.3 Immature Gran % (Auto) 0.600 Neut % (Auto) 81.7 H Lymph % (Auto) 9.1 L [place] % (Auto) 6.7 Eos % (Auto) 1.1 Baso % (Auto) 0.8 Absolute Neuts (auto) 10.1 H Absolute Lymphs (auto) 1.13 Nucleated RBC % 0 PT 12.7 INR 1.0 APTT 26.8 Sodium 144 Potassium 3.1 L Chloride 95 L Carbon Dioxide 37.0 H Anion Gap 12 BUN 57 H Creatinine 6.41 H Estim Creat Clear Calc 11.37 Est GFR (MDRD) Af Amer 12 L Est GFR (MDRD) Non-Af 10 L BUN/Creatinine Ratio 8.9 L Glucose 91 Calcium 9.0 Phosphorus Magnesium 11/16/22 13:50 WBC RBC Hgb Hct MCV MCH MCHC RDW Std Deviation RDW Coeff of Jenifer Plt Count MPV Immature Gran % (Auto) Neut % (Auto) Lymph % (Auto) [place] % (Auto) Eos % (Auto) Baso % (Auto) Absolute Neuts (auto) Absolute Lymphs (auto) Nucleated RBC % PT INR APTT Sodium Potassium Chloride Carbon Dioxide Anion Gap BUN Creatinine Estim Creat Clear Calc Est GFR (MDRD) Af Amer Est GFR (MDRD) Non-Af BUN/Creatinine Ratio Glucose Calcium Phosphorus 4.6 Magnesium 2.7 H Discharge Plan Dx/Rx/DC Orders Clinical Impression: Acute upper GI bleed, Hx of gastric ulcer, ESRD on hemodialysis, Anemia Disposition Disposition: [facility]
--- NOTE | 2022-11-16 15:00 | NURSING ---
changed dressing on pt chest dialysis cath. cleansed with CHG and CHG dressing applied.
--- NOTE | 2022-11-16 15:42 | HP.PCM.HOS_ITS ---
HPI - General General Date of Admission: 11/16/22 Date of Service: 11/16/22 Chief Complaint: Coffee ground emesis while at dialysis, recent 11/14/22 ED evaluation with similarly coffee ground emesis. HPI Narrative The patient is a 57 y/o M w/ PMHx: Congenital deafness, Severe Protein Calorie Malnutrition, ESRD on HD, HTN, HLD, Hx CVA s/p PEG placement with recent aspiration PNA during most recent prior admission, IDDM, CAD w/ recent NSTEMI w/ decision for medical management, Chronic anemia, Cardiomyopathy suspected likely secondary to hypertensive heart disease recent ED evaluation 11/14/22 secondary to episodes of coffee-ground emesis at his skilled facility with hemoglobin at that time 8.8 with ED discussion with patient's agricultural equipment design engineer Dr. Deleon who recommended hold on aspirin and Plavix at that time is likely the cause of o ngoing bleeding however unfortunately patient returns to the [facility] ED on 11/16/22 secondary to recurrent bout of coffee-ground emesis while being dialyzed despite these recent medication hold with transient hypotension reportedly with a systolic transiently in the 50s prompting ED evaluation. Patient with no specific abdominal pain or cramping however continues to have nausea and bouts of coffee-ground emesis, even holding emesis bag in the ED. in the ED work-up included T97.7, heart rate 118, BP 114/69 which is improved from previous, respiratory rate 18, 96% on room air, CBC with a BC 12.4, hemoglobin 8.7, MCV 91, platelet 430 with left shift, unremarkable coags, BMP with potassium 3.1, chloride 95, carbon oxide 37, anion gap 12, BUN/creatinine 57/6.41, glucose 91. Patient did have endoscopy with evaluation for GI bleeding previously and this demonstrated and a gastric ulcer with heater probe treatment at that time and PRBC administration. ED physician discussed case with gastroenterology Dr. Deleon who requested that patient be administered IV Protonix 40 mg x 1 with cycling of H&H with plan evaluation. [facility] Medical History Acute renal failure Acute respiratory failure with hypoxia Anemia CAD (coronary artery disease) CKD (chronic kidney disease) Congenital deafness Deaf Decreased left ventricular systolic function Diabetes HTN (hypertension) Hyperlipidemia Hypertensive emergency Metabolic acidosis Non-ST elevated myocardial infarction (non-STEMI) NSTEMI (non-ST elevated myocardial infarction) On mechanically assisted ventilation Pneumonia Regurgitation of food Stroke Vision problem Vomiting Home Medications dorzolamide-timolol (PF) 2 %-0.5 % eye drops in a dropperette 1 drp ophthalmic (eye) BID eyes 01/04/20 [History Last Taken 10/21/22] latanoprost 0.005 % eye drops 1 drp ophthalmic (eye) DAILY eyes 01/04/20 [Hi story Last Taken 10/21/22] amlodipine 5 mg tablet 5 mg feeding tube DAILY BP 09/14/22 [History Last Taken 10/21/22] ondansetron 4 mg disintegrating tablet 4 mg PO Q6H PRN nausea and vomiting #30 tabs 10/19/22 [Rx Last Taken 10/21/22] furosemide 40 mg tablet 40 mg feeding tube SuTuThSa hypertension 10/21/22 [History Last Taken 10/20/22] insulin lispro 100 unit/mL subcutaneous pen (Humalog KwikPen (U-100) Insulin) See Protocol subcut Q6H DM 10/21/22 [History Last Taken 10/21/22] isosorbide dinitrate 10 mg tablet 10 mg feeding tube BID CKD 10/21/22 [History Last Taken 10/21/22] polyethylene glycol 3350 17 gram oral powder packet 17 g PO BID PRN constipation #100 ea 10/27/22 [Rx Last Taken Unknown] atorvastatin 40 mg tablet 40 mg G-tube QHS cholesterol 10/31/22 [History Last Taken Unknown] carvedilol 25 mg tablet 25 mg G-tube BID blood pressure 10/31/22 [History Last Taken Unknown] hydralazine 50 mg tablet 50 mg G-tube TID hypertension 10/31/22 [History Last Taken Unknown] insulin glargine-yfgn 100 unit/mL (3 mL) subcutaneous pen 30 unit subcut 0600,1800 DM 10/31/22 [History Last Taken Unknown] lansoprazole 30 mg capsule,delayed release (Prevacid) 30 mg feeding tube BID gerd 10/31/22 [History Last Taken Unknown] menthol 0.44 %-zinc oxide 20.6 % topical ointment (Calmoseptine) 1 applic topical BID redness 10/31/22 [History Last Taken Unknown] metoclopramide HCl 10 mg tablet (Reglan) 10 mg PO TID nausea 10/31/22 [History Last Taken Unknown] Allergy/AdvReac Type Severity Reaction Status Date / Time No Known Allergies Allergy Verified 11/16/22 13:31 Family History Mother Diabetes Deaf no significant family history (No marked paternal family history including HD, DM, CA reported.) Surgical History S/P percutaneous endoscopic gastrostomy (PEG) tube placement Social History (Updated 11/16/22 @ 15:[address] Negrita Rain MD) housing: skilled nursing Smoking Status: Never smoker alcohol intake: never substance use type: does not use what type of physical activity do you participate in: none ROS ROS Narrative Admission Review of Systems: CONSTITUTIONAL: No weight loss, fever, chills, + weakness or fatigue. HEENT: + Chronic deafness. Eyes: No visual loss, blurred vision, double vision or yellow sclerae. Ears, Nose, Throat: No hearing loss, sneezing, congestion, runny nose or sore throat. SKIN: No rash or itching, lesions, wounds. CARDIOVASCULAR: No chest pain, chest pressure or chest discomfort, palpitations, edema, orthopnea, syncopal events. RESPIRATORY: No shortness of breath, cough or sputum, wheezing, hemoptysis. GASTROINTESTINAL: + anorexia, nausea, vomiting, coffee-ground emesis, dark appearing stools, loose stools given tube feeds, No abdominal pain, BRBPR. GENITOURINARY: + Chronic retention, finley catheter in place. NEUROLOGICAL: + s/p prior CVA w/ focal weakness, No headache, dizziness, syncope, seizure. MUSCULOSKELETAL: + muscle, back pain, joint pain or stiffness. HEMATOLOGIC: + anemia, bleeding or bruising. LYMPHATICS: No enlarged nodes. No history of splenectomy. PSYCHIATRIC: No history of depression or anxiety. ENDOCRINOLOGIC: No reports of sweating, cold or heat intolerance. No polyuria or polydipsia. ALLERGIES: No history of asthma, hives, eczema or rhinitis. Vital Signs Vital Signs Vital Signs: 11/16/22 13:22 Temperature 97.7 F L Temperature Source Oral Pulse Rate 118 H Respiratory Rate 18 Blood Pressure 114/69 Blood Pressure Mean 84 Pulse Ox 96 Oxygen Delivery Method Room Air Weight Weight: 141 lb 1.533 oz Body Mass Index (BMI) 22.1 Physical Exam Narrative Physical Examination: General: Awake, alert, oriented to self, place and recent events, patient utilizes sign language and reading/writing communication type method, fatigued and ill-appearing, holding emesis bag with coffee-ground emesis and it Skin: Pale color, normal turgor, no icterus, no cyanosis except for occasional staged ecchymoses and mild skin breakdown especially coccyx region. HEENT: AT/NC, EOMI, PERRLA, dry MM, no carotid bruits or JVD noted. Lungs: Diminished, greater bases, mildly decreased effort, no rales, ronchi or wheezing. Heart: Tachycardic with regular rhythm; no gallop, rub audible. Abdomen: Soft, thin habitus, NTTP, PEG tube in place, ND, hyperactive BS, no HSM. Extremities: No cyanosis, clubbing, or edema, cachectic extremities. Neurological: Patient awake, alert, oriented as noted, cognitive function suspect near baseline intact; pupils equally reactive to light and accommodation, cranial nerves grossly normal except chronic deafness, minimally moving extremities currently but severely global decrease secondary to acute presentation and prior history of CVA, holding emesis bag and very ill- appearing. Psychiatric: Affect appears flat, fatigued, ill-appearing, no acute evidence of depressive or anxiety feelings. Results Lab / Micro Data Result Diagrams: 11/16/22 13:50 11/16/22 13:50 Labs: Laboratory Results - last 24 hr 11/16/22 13:50: WBC 12.4 H, RBC 2.88 L, Hgb 8.7 L, Hct 26.2 L, MCV 91.0 D, MCH 30.2, MCHC 33.2 D, RDW Std Deviation 42.7, RDW Coeff of Jenifer 13.0, Plt Count 430, MPV 10.3, Immature Gran % (Auto) 0.600, Neut % (Auto) 81.7 H, Lymph % (Auto) 9.1 L, [place] % (Auto) 6.7, Eos % (Auto) 1.1, Baso % (Auto) 0.8, Absolute Neuts (auto) 10.1 H, Absolute Lymphs (auto) 1.13, Nucleated RBC % 0 11/16/22 13:50: PT 12.7, INR 1.0, APTT 26.8 11/16/22 13:50: Sodium 144, Potassium 3.1 L, Chloride 95 L, Carbon Dioxide 37.0 H, Anion Gap 12, BUN 57 H, Creatinine 6.41 H, Estim Creat Clear Calc 11.37, Est GFR (MDRD) Af Amer 12 L, Est GFR (MDRD) Non-Af 10 L, BUN/Creatinine Ratio 8.9 L, Glucose 91, Calcium 9.0 Assessment & Plan Assessment/Plan (1) Acute upper GI bleed: PLAN: Plan The patient is a 57 y/o M w/ PMHx: Congenital deafness, Severe Protein Calorie Malnutrition, ESRD on HD, HTN, HLD, Hx CVA s/p PEG placement with recent aspiration PNA during most recent prior admission, IDDM, CAD w/ recent NSTEMI w/ decision for medical management, Chronic anemia, Cardiomyopathy suspected likely secondary to hypertensive heart disease recent ED evaluation 11/14/22 secondary to episodes of coffee-ground emesis at his skilled facility with hemoglobin at that time 8.8 with ED discussion with patient's agricultural equipment design engineer Dr. Deleon who recommended hold on aspirin and Plavix at that time is likely the cause of ongoing bleeding however unfortunately patient returns to the [facility] ED on 11/16/22 secondary to recurrent bout of coffee-ground emesis while being dialyzed despite these recent medication hold with transient hypotension reportedly with a systolic transiently in the 50s prompting ED evaluation. #1. Acute GI Bleed w/ resultant Acute Blood Loss Anemia on Chronic suspected secondary to Recurrent bleeding from Gastric Ulcer: Given history of transiently significantly low blood pressure, currently improved to low normal especially for this patient, will admit to PCU, maintain on judicious IV fluids given underlying cardiomyopathy history, will obtain serial H+H, T+S requested, maintain on IV PPI. GI consulted and noted intention for evaluation of the dilip ent. #2. Recent suspected aspiration pneumonia with associated acute respiratory failure requiring transient intubation: Patient discharged 11/08/2022 with planned continued 7-day course of empiric antibiotic therapy at that time, completed antibiotic therapy, encourage head of bed, I-S as able, aspiration and fall precautions, holding tube feeds is noted status post PEG tube placement during prior presentation. #3. Hypokalemia: Admission K+ 3.1, magnesium level requested as well as phosphorus given end-stage renal disease history, judicious supplementation given, repeat level in AM. #4. ESRD: Patient with progressively worsening disease over the last several weeks with initially acute on chronic kidney disease however transition to dialysis and has since continued to require ongoing HD treatment Wednesday/Wednesday/Wednesday, will consult nephrology Dr. Truong for ongoing HD needs. #5. CAD with history of recent NSTEMI, cardiomyopathy likely secondary to hypertensive heart disease: Patient with history of NSTEMI 09/2022, echocardiogram noted 09/16/2022 with normal LV size, EF 35% with stage III diastolic dysfunction, moderate to severe global hypokinesis LV, mild to moderate MDI with PASP 40 mmHg with decision for continue medical management at that time with recommendation for outpatient intervention follow-up at tertiary facility outpatient once clinically improved from his current presentation, given presentation will continue to hold aspirin and Plavix, given significant upper GI bleed presentation we will also hold temporarily patient statin and with hypotension transiently and low blood pressure currently we will hold all hypertensive regimen, resume once appropriate. Also given reduced EF we will very judiciously hydrate. #6. Insulin-dependent diabetes mellitus: We will continue patient on insulin regimen but given current presentation will decrease by half dose and continue monitor, presentation glucose not markedly elevate thus low threshold to hold co mpletely if needed and may transition to dextrose IVFs also if this is the case, n.p.o. status, continue accu checks w/ ISS. #7. History of CVA with chronic dysphagia: Patient status post PEG tube p lacement during prior admission, holding tube feeds given acute presentation as noted #1, holding aspirin and Plavix as well as hypertensive regimen, temporally holding statin also, resume these items once appropriate or cleared by GI pending repeat endoscopy needs. #8. Hypertension: Given presentation as noted above patient transiently significantly hypotensive, BP low normal range especially for patient currently, will hold all hypertensive regimens and restart once clinically appropriate. #9. Congenital deafness: Patient utilizes sign language method and able to interact some with writing communication as well. #10. Hyperlipidemia: We will temporarily hold statin. #11. Severe protein calorie malnutrition: Evidenced by habitus, muscle and fat loss, PEG tube feeds being held given acute presentation, nutrition consulted. #12. DVT prophylaxis: SCDs, holding chemoprophylaxis given acute presentation as noted. #13. CODE STATUS: Patient through translation has plainly made aware a strong preference of avoidance of intubation or cardiac intervention if in fact he suffers a cardiac arrest and prefers to pass naturally if these events occur therefore will transition patient CODE STATUS to DNR CCA, no intubation. Admission Evaluation Time spent evaluating chart, patient history, patient evaluation, care planning and discussion with specialists: 75 minutes. Charges/Coding Visit Charges Inpatient E&M: 78297 Init Hosp L3
[2022-11-16 15:49] LABS: Magnesium 2.7 mg/dL (1.6-2.6); Phosphorus 4.6 mg/dL (2.5-4.9)
[2022-11-16 18:31] VITALS: BMI 22.1
[2022-11-16 18:43] VITALS: BP 162/77; PULSE 113; RESP 22; TEMP 36.9; O2SAT 94
--- NOTE | 2022-11-16 19:42 | EX.PCM.CON.G ---
HPI Consult Data Date of Consult: 11/16/22 HPI Narrative Reason for Consultation: GI bleed HPI Narrative: SCOTT BUTLER, is a 57 M who presents to the emergency room from dialysis. Patient evaluated through civil designer service. Sent in from dialysis.? Coffee-ground emesis.? Patient denies any nausea or abdominal pain.? However history of difficult with automotive parts interpreter service.? Apparent history of stroke and coronary disease.? Medications he is noted to be on aspirin and Plavix.? Presented on the monitor systolic blood pressure 89.? He is dialysis patient with the left chest Vas-Cath.? He is denying any symptoms. Records reviewed after evaluation history of upper GI bleed.? He had endoscopy October 22 of last month when admitted finding of a gastric ulcer that required heat probe cauterization.? He is also seen 2 days ago reported coffee-ground emesis multiple episodes, discussion with Dr. Deleon in the ED, hold aspirin and Plavix and hopefully will be self-limiting. [facility] Medical History (Updated 11/16/22 @ 17:02 by [place]) Acute renal failure Acute respiratory failure with hypoxia Anemia CAD (coronary artery disease) Chronic indwelling Finley catheter CKD (chronic kidney disease) Congenital deafness Deaf Decreased left ventricular systolic function Diabetes Dialysis patient HTN (hypertension) Hyperlipidemia Hypertensive emergency Metabolic acidosis Non-ST elevated myocardial infarction (non-STEMI) NSTEMI (non-ST elevated myocardial infarction) On mechanically assisted ventilation Pneumonia Regurgitation of food Stroke Vision problem Vomiting Home Medications dorzolamide-timolol (PF) 2 %-0.5 % eye drops in a dropperette 1 drp ophthalmic (eye) BID eyes 01/04/20 [History Last Taken 11/16/22] latanoprost 0.005 % eye drops 1 drp ophthalmic (eye) DAILY eyes 01/04/20 [History Last Taken 11/16/22] amlodipine 5 mg tablet 5 mg feeding tube DAILY BP 09/14/22 [History Last Taken 11/16/22] ondansetron 4 mg disintegrating tablet 4 mg PO Q6H PRN nausea and vomiting #30 tabs 10/19/22 [Rx Last Taken 10/21/22] furosemide 40 mg tablet 40 mg feeding tube SuTuThSa hypertension 10/21/22 [History Last Taken 11/15/22] insulin lispro 100 unit/mL subcutaneous pen (Humalog KwikPen (U-100) Insulin) See Protocol subcut Q6H DM 10/21/22 [History Last Taken 11/15/22] isosorbide dinitrate 10 mg tablet 10 mg feeding tube BID CKD 10/21/22 [History Last Taken 11/16/22] polyethylene glycol 3350 17 gram oral powder packet 17 g PO BID PRN constipation #100 ea 10/27/22 [Rx Last Taken Unknown] atorvastatin 40 mg tablet 40 mg G-tube QHS cholesterol 10/31/22 [History Last Taken 11/15/22] carvedilol 25 mg tablet 25 mg G-tube BID blood pressure 10/31/22 [History Last Taken 11/15/22] hydralazine 50 mg tablet 50 mg G-tube TID hypertension 10/31/22 [History Last Taken 11/16/22] insulin glargine-yfgn 100 unit/mL (3 mL) subcutaneous pen 30 unit subcut 0600,1800 DM 10/31/22 [History Last Taken 11/14/22] lansoprazole 30 mg capsule,delayed release (Prevacid) 30 mg feeding tube BID gerd 10/31/22 [History Last Taken 11/16/22] menthol 0.44 %-zinc oxide 20.6 % topical ointment (Calmoseptine) 1 applic topical BID redness 10/31/22 [History Last Taken Unknown] metoclopramide HCl 10 mg tablet (Reglan) 10 mg PO TID nausea 10/31/22 [History Last Taken 11/16/22] Allergy/AdvReac Type Severity Reaction Status Date / Time No Known Allergies Allergy Verified 11/16/22 13:31 Family History Mother Diabetes Deaf Surgical History S/P percutaneous endoscopic gastrostomy (PEG) tube placement Social History (Updated 11/16/22 @ 15:[address] Negrita Rain MD) housing: halfway Smoking Status: Never smoker alcohol intake: never substance use type: does not use what type of physical activity do you participate in: none ROS ROS Narrative Admission Review of Systems: CONSTITUTIONAL: No weight loss, fever, chills, + weakness or fatigue. HEENT: + Chronic deafness. Eyes: No visual loss, blurred vision, double vision or yellow sclerae. Ears, Nose, Throat: No hearing loss, sneezing, congestion, runny nose or sore throat. SKIN: No rash or itching, lesions, wounds. CARDIOVASCULAR: No chest pain, chest pressure or chest discomfort, palpitations, edema, orthopnea, syncopal events. RESPIRATORY: No shortness of breath, cough or sputum, wheezing, hemoptysis. GASTROINTESTINAL: + anorexia, nausea, vomiting, coffee-ground emesis, dark appearing stools, loose stools given tube feeds, No abdominal pain, BRBPR. GENITOURINARY: + Chronic retention, finley catheter in place. NEUROLOGICAL: + s/p prior CVA w/ focal weakness, No headache, dizziness, syncope, seizure. MUSCULOSKELETAL: + muscle, back pain, joint pain or stiffness. HEMATOLOGIC: + anemia, bleeding or bruising. LYMPHATICS: No enlarged nodes. No history of splenectomy. PSYCHIATRIC: No history of depression or anxiety. ENDOCRINOLOGIC: No reports of sweating, cold or heat intolerance. No polyuria or polydipsia. ALLERGIES: No history of asthma, hives, eczema or rhinitis. Physical Exam Narrative Physical Examination: General: Awake, alert, oriented to self, place and recent events, patient utilizes sign language and reading/writing communication type method, fatigued and ill-appearing, holding emesis bag with coffee-ground emesis and it Skin: Pale color, normal turgor, no icterus, no cyanosis except for occasional staged ecchymoses and mild skin breakdown especially coccyx region. HEENT: AT/NC, EOMI, PERRLA, dry MM, no carotid bruits or JVD noted. Lungs: Diminished, greater bases, mildly decreased effort, no rales, ronchi or wheezing. Heart: Tachycardic with regular rhythm; no gallop, rub audible. Abdomen: Soft, thin habitus, NTTP, PEG tube in place, ND, hyperactive BS, no HSM. Extremities: No cyanosis, clubbing, or edema, cachectic extremities. Neurological: Patient awake, alert, oriented as noted, cognitive function suspect near baseline intact; pupils equally reactive to light and accommodation, cranial nerves grossly normal except chronic deafness, minimally moving extremities currently but severely global decrease secondary to acute presentation and prior history of CVA, holding emesis bag and very ill-appearing. Psychiatric: Affect appears flat, fatigued, ill-appearing, no acute evidence of depressive or anxiety feelings. Lab / Micro Data Result Diagrams: 11/16/22 13:50 11/16/22 13:50 Labs: Laboratory Results - last 24 hr 11/16/22 13:50: WBC 12.4 H, RBC 2.88 L, Hgb 8.7 L, Hct 26.2 L, MCV 91.0 D, MCH 30.2, MCHC 33.2 D, RDW Std Deviation 42.7, RDW Coeff of Jenifer 13.0, Plt Count 430, MPV 10.3, Immature Gran % (Auto) 0.600, Neut % (Auto) 81.7 H, Lymph % (Auto) 9.1 L, [place] % (Auto) 6.7, Eos % (Auto) 1.1, Baso % (Auto) 0.8, Absolute Neuts (auto) 10.1 H, Absolute Lymphs (auto) 1.13, Nucleated RBC % 0 11/16/22 13:50: PT 12.7, INR 1.0, APTT 26.8 11/16/22 13:50: Sodium 144, Potassium 3.1 L, Chloride 95 L, Carbon Dioxide 37.0 H, Anion Gap 12, BUN 57 H, Creatinine 6.41 H, Estim Creat Clear Calc 11.37, Est GFR (MDRD) Af Amer 12 L, Est GFR (MDRD) Non-Af 10 L, BUN/Creatinine Ratio 8.9 L, Glucose 91, Calcium 9.0 11/16/22 13:50: Phosphorus 4.6, Magnesium 2.7 H Assessment & Plan Assessment/Plan (1) GI bleed: PLAN: I will put him on a PPI drip. He would likely need a repeat upper endoscopy to see if his restarting of his aspirin and Plavix did open up the previous gastric ulcer was seen. Charges/Coding Visit Charges Inpatient E&M: 36945 Init Hosp L2
[2022-11-16 20:11] VITALS: BP 134/77; PULSE 106; RESP 16; TEMP 36.8; O2SAT 95
[2022-11-16 21:17] VITALS: BP 118/68; PULSE 103; RESP 18; TEMP 36.9; O2SAT 94
[2022-11-16 22:17] LABS: Hematocrit 24.1 % (40-54); Hemoglobin 7.4 g/dL (13.0-16.5)
[2022-11-16] MEDS: 0.9% Normal Saline 1,000 ML 100 ML IV (23:36)
[2022-11-16 23:55] VITALS: O2SAT 95
[2022-11-17] VITALS (8 sets, daily range): BP systolic 117–144; BP diastolic 33–83; PULSE 64–101; RESP 17–20; TEMP 36.6–37.3; O2SAT 93–99
[2022-11-17 00:06] LABS: Bedside Glucose 148 mg/dL (74-106)
[2022-11-17] MEDS: Potassium Chloride 10mEq/100mL 10 MEQ/100 ML IV.SOLN. 100 MEQ IV BOLUS ×2 (00:08→01:07)
[2022-11-17 01:34] LABS: Hematocrit 23.6 % (40-54); Hemoglobin 7.3 g/dL (13.0-16.5)
[2022-11-17 05:20] LABS: Absolute Lymphocyte Count 1.01 X10^3/uL (0.83-4.51); Absolute Neutrophil Count 6.2 X10^3/uL (2.0-7.7); Basophil# 0.12 X10^3/uL; Basophil% 1.5 % (0-1); Eosinophil# 0.25 X10^3/uL; Eosinophils% 3.1 % (0-5); Hematocrit 24.2 % (40-54); Hemoglobin 7.1 g/dL (13.0-16.5); Lymphocyte # 1.01 X10^3/ul (0.83-4.51); Lymphocyte % 12.4 % (19-41); Mean Corp Hgb Conc 29.3 g/dL (32-36); Mean Corpuscular Hgb 29.6 pg (27.0-32.0); Mean Corpuscular Volume 100.8 fL (80-94); Mean Platelet Vol. 10.6 fl (6.2-12.0); Monocyte# 0.58 X10^3/uL; Monocyte% 7.1 % (0-10); NRBC Flagged by Analyzer 0 % (0-5); Neutrophil # 6.15 X10^3/uL (2.7-7.7); Neutrophil % 75.7 % (47-70); Platelet Count 260 K/mm3 (150-450); RBC Distribution Width SD 47.8 fl (35.1-43.9); White Blood Count 8.1 K/mm3 (4.4-11.0)
[2022-11-17 05:44] LABS: ALB/GLOB Ratio 0.3 RATIO (0.9-2.4); AST(SGOT) 17 U/L (15-37); Alanine Aminotransfer ALT/SGPT 13 U/L (16-61); Albumin, Serum 1.5 g/dL (3.2-5.0); Alkaline Phosphatase 58 U/L (45-117); Anion Gap 13 (5-15); BUN 57 mg/dL (7-18); BUN/Creat Ratio 9.1 RATIO (10-20); Calcium,Total 7.8 mg/dL (8.5-10.1); Chloride 99 mmol/L (98-107); Creatinine, Serum 6.29 mg/dL (0.70-1.30); EST Glomerular Filtration Rate 10 mL/min (>60); Est Glom Filt Rate - Afr Amer 12 mL/min (>60); Estimated Creatinine Clearance 11.59 ml/min; Globulin 4.6 g/dL (2.2-4.2); Glucose 254 mg/dL (74-106); Potassium 3.7 mmol/L (3.5-5.1); Protein, Total 6.1 g/dL (6.4-8.2); Sodium Level 140 mmol/L (136-145)
[2022-11-17] MEDS: Insulin Glargine-YFGN 100 UNIT/ML Pen 30 UNIT SC (07:37)
[2022-11-17] MEDS: Insulin Lispro 100 UNIT/ML INSULN.PEN SC (07:37)
[2022-11-17] MEDS: 0.9% Normal Saline 1,000 ML 100 ML IV (07:38)
[2022-11-17 08:06] LABS: Bedside Glucose 278 mg/dL (74-106)
--- NOTE | 2022-11-17 08:34 | PN.HOSP_ITS ---
Subjective Subjective Patient is a 57-year-old gentleman with significant past medical history including end-stage renal disease on hemodialysis, known history of gastric ulcers who presented with coffee-ground emesis Objective Data Objective Data Vital Signs: Vital Signs Temp Pulse Resp BP Pulse Ox O2 Del Method O2 Flow Rate 98.1 F 93 18 144/83 H 99 Nasal Cannula 2 11/17/22 07:43 11/17/22 07:43 11/17/22 07:43 11/17/22 07:43 11/17/22 07:43 11/17/22 07:43 11/17/22 07:43 Oxygen Flow Rate (L/min) 2 Oxygen Delivery Method Nasal Cannula Weight: 64.3 kg Body Mass Index (BMI) 22.1 Intake & Output: Intake and Output for Last 24 Hours 11/15/22 11/16/22 11/17/22 23:59 23:59 23:59 Intake Total 645 / 645 1001.66 / 1001.66 Output Total 500 / 500 Balance 645 / 645 501.66 / 501.66 Lab / Micro Data Result Diagrams: 11/17/22 05:11 11/17/22 05:11 Labs: Laboratory Results - last 24 hr 11/16/22 13:50: WBC 12.4 H, RBC 2.88 L, Hgb 8.7 L, Hct 26.2 L, MCV 91.0 D, MCH 30.2, MCHC 33.2 D, RDW Std Deviation 42.7, RDW Coeff of Jenifer 13.0, Plt Count 430, MPV 10.3, Immature Gran % (Auto) 0.600, Neut % (Auto) 81.7 H, Lymph % (Auto) 9.1 L, [place] % (Auto) 6.7, Eos % (Auto) 1.1, Baso % (Auto) 0.8, Absolute Neuts (auto) 10.1 H, Absolute Lymphs (auto) 1.13, Nucleated RBC % 0 11/16/22 13:50: PT 12.7, INR 1.0, APTT 26.8 11/16/22 13:50: Sodium 144, Potassium 3.1 L, Chloride 95 L, Carbon Dioxide 37.0 H, Anion Gap 12, BUN 57 H, Creatinine 6.41 H, Estim Creat Clear Calc 11.37, Est GFR (MDRD) Af Amer 12 L, Est GFR (MDRD) Non-Af 10 L, BUN/Creatinine Ratio 8.9 L, Glucose 91, Calcium 9.0 11/16/22 13:50: Phosphorus 4.6, Magnesium 2.7 H 11/16/22 22:05: Hgb 7.4 L, Hct 24.1 L 11/16/22 23:43: POC Glucose 148 H 11/17/22 01:25: Hgb 7.3 L, Hct 23.6 L 11/17/22 05:11: WBC 8.1, RBC 2.40 L, Hgb 7.1 L, Hct 24.2 L, MCV 100.8 H D, MCH 29.6, MCHC 29.3 L D, RDW Std Deviation 47.8 H, RDW Coeff of Jenifer 13.0, Plt Count 260, MPV 10.6, Immature Gran % (Auto) 0.200, Neut % (Auto) 75.7 H, Lymph % (Auto) 12.4 L, [place] % (Auto) 7.1, Eos % (Auto) 3.1, Baso % (Auto) 1.5 H, Absolute Neuts (auto) 6.2, Absolute Lymphs (auto) 1.01, Nucleated RBC % 0 11/17/22 05:11: Sodium 140, Potassium 3.7, Chloride 99, Carbon Dioxide 28.0, Anion Gap 13, BUN 57 H, Creatinine 6.29 H, Estim Creat Clear Calc 11.59, Est GFR (MDRD) Af Amer 12 L, Est GFR (MDRD) Non-Af 10 L, BUN/Creatinine Ratio 9.1 L, Glucose 254 H, Calcium 7.8 L, Total Bilirubin 0.30, AST 17, ALT 13 L, Alkaline Phosphatase 58, Total Protein 6.1 L, Albumin 1.5 L, Globulin 4.6 H, Albumin/Globulin Ratio 0.3 L 11/17/22 07:34: POC Glucose 278 H Physical Exam Narrative GENERAL: cooperative HEENT: Atraumatic; normocephalic EYES; Anicteric, Normal Conjunctiva NECK; supple, normal thyroid, RESPIRATORY: Diminished to auscultation CARDIOVASCULAR: Regular S1 S2, GI: soft, normoactive bowel sounds, : No Renal angle tenderness; EXTREMITIES: No edema, no clubbing, MUSCULOSKELETAL: no muscle wasting NEURO: Awake; no lateralizing signs. SKIN: No Rash PSYCH; Flat affect Assessment & Plan Assessment/Plan (1) Acute upper GI bleed: PLAN: Plan Patient is a 57-year-old gentleman with significant past medical history including end-stage renal disease on hemodialysis, known history of gastric ulcers who presented with coffee-ground emesis 1. Acute GI bleed ? Secondary to recurrent bleeding from gastric ulcer. Patient has been admitted to a monitored bed started on Protonix drip GI consulted 2. Anemia ? Secondary to acute blood loss anemia from GI bleed monitoring H&H with plans to transfuse if hemoglobin falls below 7 3. Hypokalemia ? Corrected per protocol repeat BMP ordered for monitoring 4. End-stage renal disease ? Patient is on hemodialysis Wednesdays and Fridays nephrology consulted for dialysis orders 5. Coronary artery disease with recent non-STEMI ? Currently stable 6. Ischemic cardiomyopathy ? Echo obtained on 09/16/2022 demonstrated EF of 35% 7. Diabetes mellitus type 2 ? Patient is on insulin regimen did continue also placed on Accu-Cheks before meals and at bedtime with sliding scale coverage 8. Previous history of CVA ? With chronic dysphagia status post PEG tube placement 9. Hypertension - Blood pressure controlled, home medications continued with dose adjustment as needed 10. Congenital deafness ? Patient uses sign language 11. Dyslipidemia ? Patient is on statin therapy 12. DVT prophylaxis -held of chemoprophylaxis given patient active GI bleed Time spent in the patient's overall evaluation,decision-making process, review of diagnostic data, adjustment of management, discussion with other providers, nursing nursing and ancillary staff involved in patient's care documentation, 55 Minutes Charges/Coding Visit Charges Inpatient E&M: 03809 Subs Hosp L3 Reason for Visit Reason for Visit: Diagnoses Gastrointestinal hemorrhage, unspecified (11/16/22)
--- NOTE | 2022-11-17 11:04 | PCM.CONS.R ---
Assessment & Plan Assessment/Plan (1) TREVOR (acute kidney injury): PLAN: On dialysis. Presumably this is diabetes related. We never had a chance to do kidney biopsy since he has been unstable. No signs of recovery. We will maintain dialysis Wednesday, Wednesday, Wednesday schedule. Seen on dialysis today. Blood pressure is acceptable. Volume status looks okay. Chest x-ray from yesterday with no edema. Anemia. Due to suspected GI bleed. Transfuse if hemoglobin is less than 7. GI bleed. Recently found to have upper GI ulcer. Repeat endoscopy planned. HPI Consult Data Date of Consult: 11/17/22 HPI Narrative Reason for Consultation: Acute renal failure on dialysis HPI Narrative: SCOTT BUTLER, is a 57 M who presents to the hospital with suspected GI bleed. Nephrology on consultation due to acute renal failure on hemodialysis. He has had several hospitalizations recently. Was started on dialysis on first admission, renal failure is presumably related to diabetes. He does make some urine but at this point no signs of recovery. Will likely be dialysis dependent long-term. Came to the dialysis yesterday with hematemesis and was referred here. Seen by GI. Recently had upper GI endoscopy which showed ulcer. Currently on dialysis. Looks comfortable. [facility] Medical History (Updated 11/16/22 @ 17:02 by [place]) Acute renal failure Acute respiratory failure with hypoxia Anemia CAD (coronary artery disease) Chronic indwelling Finley catheter CKD (chronic kidney disease) Congenital deafness Deaf Decreased left ventricular systolic function Diabetes Dialysis patient HTN (hypertension) Hyperlipidemia Hypertensive emergency Metabolic acidosis Non-ST elevated myocardial infarction (non-STEMI) NSTEMI (non-ST elevated myocardial infarction) On mechanically assisted ventilation Pneumonia Regurgitation of food Stroke Vision problem Vomiting Home Medications dorzolamide-timolol (PF) 2 %-0.5 % eye drops in a dropperette 1 drp ophthalmic (eye) BID eyes 01/04/20 [History Last Taken 11/16/22] latanoprost 0.005 % eye drops 1 drp ophthalmic (eye) DAILY eyes 01/04/20 [History Last Taken 11/16/22] amlodipine 5 mg tablet 5 mg feeding tube DAILY BP 09/14/22 [History Last Taken 11/16/22] ondansetron 4 mg disintegrating tablet 4 mg PO Q6H PRN nausea and vomiting #30 tabs 10/19/22 [Rx Last Taken 10/21/22] furosemide 40 mg tablet 40 mg feeding tube SuTuThSa hypertension 10/21/22 [History Last Taken 11/15/22] insulin lispro 100 unit/mL subcutaneous pen (Humalog KwikPen (U-100) Insulin) See Protocol subcut Q6H DM 10/21/22 [History Last Taken 11/15/22] isosorbide dinitrate 10 mg tablet 10 mg feeding tube BID CKD 10/21/22 [History Last Taken 11/16/22] polyethylene glycol 3350 17 gram oral powder packet 17 g PO BID PRN constipation #100 ea 10/27/22 [Rx Last Taken Unknown] atorvastatin 40 mg tablet 40 mg G-tube QHS cholesterol 10/31/22 [History Last Taken 11/15/22] carvedilol 25 mg tablet 25 mg G-tube BID blood pressure 10/31/22 [History Last Taken 11/15/22] hydralazine 50 mg tablet 50 mg G-tube TID hypertension 10/31/22 [History Last Taken 11/16/22] insulin glargine-yfgn 100 unit/mL (3 mL) subcutaneous pen 30 unit subcut 0600,1800 DM 10/31/22 [History Last Taken 11/14/22] lansoprazole 30 mg capsule,delayed release (Prevacid) 30 mg feeding tube BID gerd 10/31/22 [History Last Taken 11/16/22] menthol 0.44 %-zinc oxide 20.6 % topical ointment (Calmoseptine) 1 applic topical BID redness 10/31/22 [History Last Taken Unknown] metoclopramide HCl 10 mg tablet (Reglan) 10 mg PO TID nausea 10/31/22 [History Last Taken 11/16/22] Allergy/AdvReac Type Severity Reaction Status Date / Time No Known Allergies Allergy Verified 11/16/22 13:31 Family History Mother Diabetes Deaf Surgical History S/P percutaneous endoscopic gastrostomy (PEG) tube placement Social History (Updated 11/16/22 @ 15:[address] Negrita Rain MD) housing: group home Smoking Status: Never smoker alcohol intake: never substance use type: does not use what type of physical activity do you participate in: none ROS ROS Narrative Unable to obtain Physical Exam Narrative Alert awake no obvious distress no pallor no icterus no JVD s1s2 no murmurs lungs clear abdomen soft no organomegaly no edema no cyanosis finley + Lab / Micro Data Result Diagrams: 11/17/22 05:11 11/17/22 05:11 Labs: Laboratory Results - last 24 hr 11/16/22 13:50: WBC 12.4 H, RBC 2.88 L, Hgb 8.7 L, Hct 26.2 L, MCV 91.0 D, MCH 30.2, MCHC 33.2 D, RDW Std Deviation 42.7, RDW Coeff of Jenifer 13.0, Plt Count 430, MPV 10.3, Immature Gran % (Auto) 0.600, Neut % (Auto) 81.7 H, Lymph % (Auto) 9.1 L, [place] % (Auto) 6.7, Eos % (Auto) 1.1, Baso % (Auto) 0.8, Absolute Neuts (auto) 10.1 H, Absolute Lymphs (auto) 1.13, Nucleated RBC % 0 11/16/22 13:50: PT 12.7, INR 1.0, APTT 26.8 11/16/22 13:50: Sodium 144, Potassium 3.1 L, Chloride 95 L, Carbon Dioxide 37.0 H, Anion Gap 12, BUN 57 H, Creatinine 6.41 H, Estim Creat Clear Calc 11.37, Est GFR (MDRD) Af Amer 12 L, Est GFR (MDRD) Non-Af 10 L, BUN/Creatinine Ratio 8.9 L, Glucose 91, Calcium 9.0 11/16/22 13:50: Phosphorus 4.6, Magnesium 2.7 H 11/16/22 22:05: Hgb 7.4 L, Hct 24.1 L 11/16/22 23:43: POC Glucose 148 H 11/17/22 01:25: Hgb 7.3 L, Hct 23.6 L 11/17/22 05:11: WBC 8.1, RBC 2.40 L, Hgb 7.1 L, Hct 24.2 L, MCV 100.8 H D, MCH 29.6, MCHC 29.3 L D, RDW Std Deviation 47.8 H, RDW Coeff of Jenifer 13.0, Plt Count 260, MPV 10.6, Immature Gran % (Auto) 0.200, Neut % (Auto) 75.7 H, Lymph % (Auto) 12.4 L, [place] % (Auto) 7.1, Eos % (Auto) 3.1, Baso % (Auto) 1.5 H, Absolute Neuts (auto) 6.2, Absolute Lymphs (auto) 1.01, Nucleated RBC % 0 11/17/22 05:11: Sodium 140, Potassium 3.7, Chloride 99, Carbon Dioxide 28.0, Anion Gap 13, BUN 57 H, Creatinine 6.29 H, Estim Creat Clear Calc 11.59, Est GFR (MDRD) Af Amer 12 L, Est GFR (MDRD) Non-Af 10 L, BUN/Creatinine Ratio 9.1 L, Glucose 254 H, Calcium 7.8 L, Total Bilirubin 0.30, AST 17, ALT 13 L, Alkaline Phosphatase 58, Total Protein 6.1 L, Albumin 1.5 L, Globulin 4.6 H, Albumin/Globulin Ratio 0.3 L 11/17/22 07:34: POC Glucose 278 H
[2022-11-17] MEDS: Heparin 10,000 UNITS/10 ML Vial 2500 UNITS IV (12:33)
[2022-11-17] MEDS: Menthol/Lanolin/Calamine/Znox 113 GM Tube 1 APPLIC TOPICAL ×2 (12:33→21:42)
[2022-11-17] MEDS: Dorzolamide HCL/Timolol 10 ml Bottle 1 DRP OPHTHALMIC ×2 (12:35→21:42)
[2022-11-17] MEDS: Latanoprost 0.005% 1 Bottle 1 DRP OPHTHALMIC (12:36)
--- NOTE | 2022-11-17 12:50 | DIALYSIS ---
Hemodialysis completed, 3 hours on a 3 K bath. Fluid removed was 1500 ml. Patient tolerated well.
[2022-11-17 13:01] LABS: Bedside Glucose 97 mg/dL (74-106)
--- NOTE | 2022-11-17 14:45 | CASEMGMT ---
mine car repairer notified HUSSEIN that a family member was in patient's room and she is requesting a referral be sent to [facility]. HUSSEIN spoke with Ben, patient's Healthcare Power of Generator Worker and he confirmed he would like a referral sent to [facility]. HUSSEIN asked if they had another choice if [facility] is unable to take him. He did not. SW advised that they will need to come up with a few other options. Referral has been sent to [facility] via [facility]. June Piña WARPER TENDER LEFTY
--- NOTE | 2022-11-17 14:53 | CASEMGMT ---
[facility] responded and declined patient. HUSSEIN called Ben and let him know. Ben was going to call patient's sister, Lila to see what to do next. June Piña WOOD BOATBUILDER LEFTY
--- NOTE | 2022-11-17 16:42 | PCM.PROGNOTE ---
Subjective Subjective Patient has not had any signs or symptoms of GI bleeding today. He has been dry heaving. Objective Data Objective Data Vital Signs: Vital Signs Temp Pulse Resp BP Pulse Ox O2 Del Method O2 Flow Rate 98.9 F 100 17 126/74 H 97 Room Air 2 11/17/22 12:47 11/17/22 12:47 11/17/22 12:47 11/17/22 12:47 11/17/22 12:47 11/17/22 12:47 11/17/22 10:00 Oxygen Flow Rate (L/min) 2 Oxygen Delivery Method Room Air Weight: 141 lb 12.116 oz Body Mass Index (BMI) 22.1 Intake & Output: Intake and Output for Last 24 Hours 11/15/22 11/16/22 11/17/22 23:59 23:59 23:59 Intake Total 645 / 645 1623.33 / 1623.33 Output Total 1999 Balance 645 / 645 -376.67 / -376.67 Medical Nutrition Assessment Dietitian: Malnutrition Criteria Met Start: 11/17/22 14:00 Freq: Status: Active Protocol: Document 11/17/22 14:00 (Rec: 11/17/22 14:00 [id number]) Nutrition Malnutrition Evidence of Malnutrition Exists Yes Malnutrition (severe): Chronic Evidenced By Suboptimal Energy Intake ( Severe),Weight Loss (Severe) Clinical Problem Chronic Disease or Condition Related Malnutrition Etiology chronic, severe malnutrition related to inadequate energy intake via PEG d/t GI dysfunction Signs/Symptoms as evidenced by interruptions in enteral nutrition support suggesting EN meeting <75% of estimated energy needs x 2 months; unintentional 16.5kg/ 20% wt loss over past ~2 months Status Active Problem Recommendation Dietitian Recommendations/Changes 1). When medically indicated, recommend Vital AF 1.2 at goal rate of 60mL/hour w/ 50mL H2O flush every 4 hours to provide 1728 calories, 108 g protein, and 1467mL total fluid/day. Would start at 20mL /hour and increase by 10mL/ hour every 8-12 hours as tolerated until goal rate is achieved. 2). SOLID FIBER PASTER OPERATOR following- no indications for PO diet advancement at this time. 3). Daily wts. Lab / Micro Data Result Diagrams: 11/17/22 05:11 11/17/22 05:11 Labs: Laboratory Results - last 24 hr 11/16/22 22:05: Hgb 7.4 L, Hct 24.1 L 11/16/22 23:43: POC Glucose 148 H 11/17/22 01:25: Hgb 7.3 L, Hct 23.6 L 11/17/22 05:11: WBC 8.1, RBC 2.40 L, Hgb 7.1 L, Hct 24.2 L, MCV 100.8 H D, MCH 29.6, MCHC 29.3 L D, RDW Std Deviation 47.8 H, RDW Coeff of Jenifer 13.0, Plt Count 260, MPV 10.6, Immature Gran % (Auto) 0.200, Neut % (Auto) 75.7 H, Lymph % (Auto) 12.4 L, [place] % (Auto) 7.1, Eos % (Auto) 3.1, Baso % (Auto) 1.5 H, Absolute Neuts (auto) 6.2, Absolute Lymphs (auto) 1.01, Nucleated RBC % 0 11/17/22 05:11: Sodium 140, Potassium 3.7, Chloride 99, Carbon Dioxide 28.0, Anion Gap 13, BUN 57 H, Creatinine 6.29 H, Estim Creat Clear Calc 11.59, Est GFR (MDRD) Af Amer 12 L, Est GFR (MDRD) Non-Af 10 L, BUN/Creatinine Ratio 9.1 L, Glucose 254 H, Calcium 7.8 L, Total Bilirubin 0.30, AST 17, ALT 13 L, Alkaline Phosphatase 58, Total Protein 6.1 L, Albumin 1.5 L, Globulin 4.6 H, Albumin/Globulin Ratio 0.3 L 11/17/22 07:34: POC Glucose 278 H 11/17/22 12:25: POC Glucose 97 Physical Exam Narrative Alert awake no obvious distress no pallor no icterus no JVD s1s2 no murmurs lungs clear abdomen soft no organomegaly no edema no cyanosis finley + Assessment & Plan Assessment/Plan (1) GI bleed: PLAN: Continue PPI drip and we will repeat upper endoscopy due to the fact that his hemoglobin is trending down to 7.1 and will need antiplatelet therapy in the future. Charges/Coding Visit Charges Inpatient E&M: 50725 Subs Hosp L2
[2022-11-17] MEDS: Dextrose 50%-Water 25 GM/50 ML DISP.SYRIN IV (17:53)
[2022-11-17] MEDS: 0.9% Saline Lock 10 ML Syringe IV ×2 (17:54→21:44)
[2022-11-17 18:06] LABS: Bedside Glucose 46 mg/dL (74-106)
[2022-11-17 18:16] LABS: Bedside Glucose 142 mg/dL (74-106)
--- NOTE | 2022-11-17 18:38 | CASEMGMT ---
ISABEL CAMARA Readmission Review: Admissions have included: 09/16/2022 thru 10/19/2022 for NSTEMI, Aspiration pneumonia, TREVOR requiring initiation of HD, DKA, and placement of PEG tube. [facility] 10/21/22 thru 10/27/22 for GI bleed: tx for oozing gastric ulcer received w/heater probe, possibly related to pressure ulcer from gastrostomy. Pt discharged [facility]. 10/30/22 thru 11/10/22 for ABLA and PEG tube dislodgement and asp pneumonia. Pt discharged [facility]. Current admission: 11/16/22 for GI bleed, ABLA, Hypotension. Medications including ASA and Plavix were held prior to admission in an attempt to avert continued bleeding and rehospitalization. Pt with recurrent coffee ground emesis requiring re-evaluation and readmission. Pt with complicating factors including congenital deafness and questionable reading ability. HPOA involved with translating and assisting with decision making. Will collaborate with SW on discharge plan and any potential readmission prevention strategies. Kay Monroe RN CM
[2022-11-18] VITALS (10 sets, daily range): BP systolic 103–147; BP diastolic 40–75; PULSE 74–86; RESP 14–18; TEMP 36.3–36.8; O2SAT 93–98; BMI 22.4
[2022-11-18] LABS: Bedside Glucose 91 mg/dL (74-106)
[2022-11-18 06:45] LABS: Bedside Glucose 148 mg/dL (74-106)
--- NOTE | 2022-11-18 07:50 | PCM.PN.HOSP ---
Reason for Visit Reason for Visit: Diagnoses Gastrointestinal hemorrhage, unspecified (11/16/22) Acute kidney failure, unspecified (11/16/22) Subjective Subjective Patient seen, scheduled to undergo EGD Objective Data Objective Data Vital Signs: Vital Signs Temp Pulse Resp BP Pulse Ox O2 Del Method O2 Flow Rate 98.1 F 77 18 121/40 H 93 Room Air 2 11/18/22 03:30 11/18/22 03:30 11/18/22 03:30 11/18/22 03:30 11/18/22 03:30 11/18/22 03:31 11/17/22 10:00 Oxygen Flow Rate (L/min) 2 Oxygen Delivery Method Room Air Weight: 64.8 kg Body Mass Index (BMI) 22.1 Intake & Output: Intake and Output for Last 24 Hours 11/16/22 11/17/22 11/18/22 23:59 23:59 23:59 Intake Total 645 / 645 2163.33 / 2163.33 0 / 0 Output Total 2150 / 2300 1800 / 1800 Balance 645 / 645 13.33 / -136.67 -1800 / -1800 Medical Nutrition Assessment Dietitian: Malnutrition Criteria Met Start: 11/17/22 14:00 Freq: Status: Active Protocol: Document 11/17/22 14:00 (Rec: 11/17/22 14:00 [id number]) Nutrition Malnutrition Evidence of Malnutrition Exists Yes Malnutrition (severe): Chronic Evidenced By Suboptimal Energy Intake ( Severe),Weight Loss (Severe) Clinical Problem Chronic Disease or Condition Related Malnutrition Etiology chronic, severe malnutrition related to inadequate energy intake via PEG d/t GI dysfunction Signs/Symptoms as evidenced by interruptions in enteral nutrition support suggesting EN meeting <75% of estimated energy needs x 2 months; unintentional 16.5kg/ 20% wt loss over past ~2 months Status Active Problem Recommendation Dietitian Recommendations/Changes 1). When medically indicated, recommend Vital AF 1.2 at goal rate of 60mL/hour w/ 50mL H2O flush every 4 hours to provide 1728 calories, 108 g protein, and 1467mL total fluid/day. Would start at 20mL /hour and increase by 10mL/ hour every 8-12 hours as tolerated until goal rate is achieved. 2). WEB PRODUCTION MANAGER following- no indications for PO diet advancement at this time. 3). Daily wts. Lab / Micro Data Result Diagrams: 11/18/22 13:05 11/18/22 13:05 Labs: Laboratory Results - last 24 hr 11/17/22 07:34: POC Glucose 278 H 11/17/22 12:25: POC Glucose 97 11/17/22 17:35: POC Glucose 46 L 11/17/22 17:52: POC Glucose 142 H 11/17/22 23:40: POC Glucose 91 11/18/22 05:08: POC Glucose 148 H Physical Exam Narrative GENERAL: cooperative HEENT: Atraumatic; normocephalic EYES; Anicteric, Normal Conjunctiva NECK; supple, normal thyroid, RESPIRATORY: Diminished to auscultation CARDIOVASCULAR: Regular S1 S2, GI: soft, normoactive bowel sounds, : No Renal angle tenderness; EXTREMITIES: No edema, no clubbing, MUSCULOSKELETAL: no muscle wasting NEURO: Awake; no lateralizing signs. SKIN: No Rash PSYCH; Flat affect Assessment & Plan Assessment/Plan (1) Acute upper GI bleed: PLAN: Plan Patient is a 57-year-old gentleman with significant past medical history including end-stage renal disease on hemodialysis, known history of gastric ulcers who presented with coffee-ground emesis 1. Acute GI bleed ? Secondary to recurrent bleeding from gastric ulcer. Patient has been admitted to a monitored bed started on Protonix drip GI consulted Patient underwent EGD by Dr. Deleon findings and recommendations as below Impressions : - LA Grade D erosive esophagitis.? Injected. - Bleeding esophageal ulcer.? Treated with bipolar cautery. - Small hiatal hernia. - Intact gastrostomy with a patent G-tube present. - No gross lesions in the first portion of the duodenum. - No specimens collected. Recommendations : - [facility]. - Use Protonix (pantoprazole) 40 mg PO BID indefinitely. - Use sucralfate tablets 1 gram PO QID for 4 weeks. - Use metoclopramide 5 mg PO QID; 30 min AC and HS for 4 weeks. - Fluconazole 200 mg via PEG daily x10 days - Continue present medications. 2. Anemia ? Secondary to acute blood loss anemia from GI bleed monitoring H&H with plans to transfuse if hemoglobin falls below 7 3. Hypokalemia ? Corrected per protocol repeat BMP ordered for monitoring 4. End-stage renal disease ? Patient is on hemodialysis Wednesdays and Fridays nephrology consulted for dialysis orders 5. Coronary artery disease with recent non-STEMI ? Currently stable 6. Ischemic cardiomyopathy ? Echo obtained on 09/16/2022 demonstrated EF of 35% 7. Diabetes mellitus type 2 ? Patient is on insulin regimen did continue also placed on Accu-Cheks before meals and at bedtime with sliding scale coverage 8. Previous history of CVA ? With chronic dysphagia status post PEG tube placement 9. Hypertension - Blood pressure controlled, home medications continued with dose adjustment as needed 10. Congenital deafness ? Patient uses sign language 11. Dyslipidemia ? Patient is on statin therapy 12. DVT prophylaxis -held of chemoprophylaxis given patient active GI bleed Time spent in the patient's overall evaluation,decision-making process, review of diagnostic data, adjustment of management, discussion with other providers, nursing nursing and ancillary staff involved in patient's care documentation, 55 Minutes Charges/Coding Visit Charges Inpatient E&M: 66986 Subs Hosp L3
[2022-11-18] MEDS: 0.9% Saline Lock 10 ML Syringe IV (09:18)
[2022-11-18] MEDS: Latanoprost 0.005% 1 Bottle 1 DRP OPHTHALMIC (09:21)
[2022-11-18] MEDS: Dorzolamide HCL/Timolol 10 ml Bottle 1 DRP OPHTHALMIC ×2 (09:21→21:14)
[2022-11-18] MEDS: Menthol/Lanolin/Calamine/Znox 113 GM Tube 1 APPLIC TOPICAL ×2 (09:23→21:13)
--- NOTE | 2022-11-18 10:11 | CASEMGMT ---
HUSSEIN was informed by RN that patient's sister was wanting to know what other options there are for patient. Patient's step son Ben is patient's Healthcare Power of Sagger Preparer so HUSSEIN attempted to call him. Ben then did arrive at [facility]. HUSSEIN spoke with Ben and asked if he is deferring decisions to Lila. Ben said they are working together. Ben said Lila asked if patient can go to TCU. HUSSEIN told him he cannot as TCU does not take patient's on dialysis. HUSSEIN provided Ben with a list of correction facility providers including quality and resource use data and consistent with patient?s preferred geographic region, medical needs, and insurance network were provided from the [employer] Guide. There were 3 options [facility], [place], and [facility] of facilities that transport to dialysis. Ben asked HUSSEIN to send a referral to SW. HUSSEIN sent a referral to [facility] via [facility]. Await response. June OLEA
--- NOTE | 2022-11-18 10:47 | PCM.PN.REN ---
Subjective Subjective No new events Objective Data Objective Data Vital Signs: Vital Signs Temp Pulse Resp BP Pulse Ox O2 Del Method O2 Flow Rate 97.8 F 86 17 103/62 96 Room Air 2 11/18/22 09:14 11/18/22 09:14 11/18/22 09:14 11/18/22 09:14 11/18/22 09:14 11/18/22 09:25 11/17/22 10:00 Oxygen Flow Rate (L/min) 2 Oxygen Delivery Method Room Air Weight: 64.8 kg Body Mass Index (BMI) 22.4 Intake & Output: Intake and Output for Last 24 Hours 11/16/22 11/17/22 11/18/22 23:59 23:59 23:59 Intake Total 645 / 645 2163.33 / 2163.33 110 / 110 Output Total 2150 / 2300 1800 / 1800 Balance 645 / 645 13.33 / -136.67 -1690 / -1690 Medical Nutrition Assessment Dietitian: Malnutrition Criteria Met Start: 11/17/22 14:00 Freq: Status: Active Protocol: Document 11/17/22 14:00 (Rec: 11/17/22 14:00 [id number]) Nutrition Malnutrition Evidence of Malnutrition Exists Yes Malnutrition (severe): Chronic Evidenced By Suboptimal Energy Intake ( Severe),Weight Loss (Severe) Clinical Problem Chronic Disease or Condition Related Malnutrition Etiology chronic, severe malnutrition related to inadequate energy intake via PEG d/t GI dysfunction Signs/Symptoms as evidenced by interruptions in enteral nutrition support suggesting EN meeting <75% of estimated energy needs x 2 months; unintentional 16.5kg/ 20% wt loss over past ~2 months Status Active Problem Recommendation Dietitian Recommendations/Changes 1). When medically indicated, recommend Vital AF 1.2 at goal rate of 60mL/hour w/ 50mL H2O flush every 4 hours to provide 1728 calories, 108 g protein, and 1467mL total fluid/day. Would start at 20mL /hour and increase by 10mL/ hour every 8-12 hours as tolerated until goal rate is achieved. 2). SENIOR SOFTWARE ENGINEERING MANAGER following- no indications for PO diet advancement at this time. 3). Daily wts. Lab / Micro Data Result Diagrams: 11/17/22 05:11 11/17/22 05:11 Labs: Laboratory Results - last 24 hr 11/17/22 12:25: POC Glucose 97 11/17/22 17:35: POC Glucose 46 L 11/17/22 17:52: POC Glucose 142 H 11/17/22 23:40: POC Glucose 91 11/18/22 05:08: POC Glucose 148 H Physical Exam Narrative Alert awake no obvious distress no pallor no icterus no JVD s1s2 no murmurs lungs clear abdomen soft no organomegaly no edema no cyanosis finley + Assessment & Plan Assessment/Plan (1) TREVOR (acute kidney injury): PLAN: On dialysis. Presumably this is diabetes related. We never had a chance to do kidney biopsy since he has been unstable. No signs of recovery. We will maintain dialysis Wednesday, Wednesday, Wednesday schedule. We will plan for a short dialysis treatment today and then maintain his original schedule. Anemia. Due to suspected GI bleed. Transfuse if hemoglobin is less than 7. GI bleed. Recently found to have upper GI ulcer. Repeat endoscopy planned.
--- NOTE | 2022-11-18 11:53 | OP.EGD_ITS ---
Patient Name: Antonio Saldivar Procedure Date: 11/18/2022 11:29 AM Date of : 1965 Age: 57 Procedure: Upper GI endoscopy Indications: Acute post hemorrhagic anemia, Hematemesis Providers: Damián Deleon DO Medicines: Monitored Anesthesia Care Patient Profile: This is a 57 year old male. Refer to note in patient chart for documentation of history and physical. Patient has symptoms of acute vomiting. Complications: No immediate complications. Procedure: Pre-Anesthesia Assessment: - Prior to the procedure, a History and Physical was performed, and patient medications and allergies were reviewed. The risks and benefits of the procedure and the sedation options and risks were discussed with the patient. All questions were answered and informed consent was obtained. Patient identification and proposed procedure were verified by the physician in the pre-procedure area. Mental Status Examination: alert and oriented. Airway Examination: normal oropharyngeal airway and neck mobility. Respiratory Examination: clear to auscultation. CV Examination: normal. Prophylactic Antibiotics: The patient does not require prophylactic antibiotics. Prior Anticoagulants: The patient has taken no previous anticoagulant or antiplatelet agents. ASA Grade Assessment: II - A patient with mild systemic disease. After reviewing the risks and benefits, the patient was deemed in satisfactory condition to undergo the procedure. The anesthesia plan was to use moderate sedation / analgesia (conscious sedation). Immediately prior to administration of medications, the patient was re-assessed for adequacy to receive sedatives. The heart rate, respiratory rate, oxygen saturations, blood pressure, adequacy of pulmonary ventilation, and response to care were monitored throughout the procedure. The physical status of the patient was re-assessed after the procedure. After obtaining informed consent, the endoscope was passed under direct vision. Throughout the procedure, the patient's blood pressure, pulse, and oxygen saturations were monitored continuously. The gastroscope was introduced through the mouth, and advanced to the second part of duodenum. The upper GI endoscopy was accomplished without difficulty. The patient tolerated the procedure well. Scope In: 11:41:12 AM Scope Out: 11:44:44 AM Total Procedure Duration Time 0 hours 3 minutes 32 seconds Findings: LA Grade D (one or more mucosal breaks involving at least 75% of esophageal circumference) esophagitis with bleeding was found 30 to 39 cm from the incisors. Area was successfully injected with 5 mL of a 1:10,000 solution of epinephrine for drug delivery. One cratered esophageal ulcer with oozing blood and stigmata of recent bleeding was found 30 to 31 cm from the incisors. The lesion was 6 mm in largest dimension. Coagulation for hemostasis using bipolar probe was successful. A small hiatal hernia was present. There was evidence of an intact gastrostomy with a patent G-tube present on the greater curvature of the stomach. No gross lesions were noted in the first portion of the duodenum. Patchy, white plaques were found in the upper third of the esophagus. Biopsies were taken with a cold forceps for histology. Verification of patient identification for the specimen was done. Estimated blood loss was minimal. Impression: - LA Grade D erosive esophagitis. Injected. - Bleeding esophageal ulcer. Treated with bipolar cautery. - Small hiatal hernia. - Intact gastrostomy with a patent G-tube present. - No gross lesions in the first portion of the duodenum. - No specimens collected. Recommendation: - [facility] to [facility] care. - Use Protonix (pantoprazole) 40 mg PO BID indefinitely. - Use sucralfate tablets 1 gram PO QID for 4 weeks. - Use metoclopramide 5 mg PO QID; 30 min AC and HS for 4 weeks. - Fluconazole 200 mg via PEG daily x10 days - Continue present medications. Procedure Code(s): --- Professional --- 57082, 59, Esophagogastroduodenoscopy, flexible, transoral; with control of bleeding, any method 03838, 59,51, Esophagogastroduodenoscopy, flexible, transoral; with directed submucosal injection(s), any substance 43925, Esophagogastroduodenoscopy, flexible, transoral; with biopsy, single or multiple CPT copyright 2017 [employer]. All rights reserved. The codes documented in this report are preliminary and upon community support worker review may be revised to meet current compliance requirements. Damián Deleon DO 11/18/2022 11:53:26 AM This report has been signed electronically. Number of Addenda: 0 Note Initiated On: 11/18/2022 11:29 AM
--- NOTE | 2022-11-18 11:54 | OP.CCLET_ITS ---
11/18/2022 Severo Virk Re : Upper GI endoscopy procedure for Antonio Ryder Todd This procedure was performed on Friday, November 18, 2022. My impressions and recommendations are as follows: Impressions : - LA Grade D erosive esophagitis. Injected. - Bleeding esophageal ulcer. Treated with bipolar cautery. - Small hiatal hernia. - Intact gastrostomy with a patent G-tube present. - No gross lesions in the first portion of the duodenum. - No specimens collected. Recommendations : - Return [facility] to [facility] care. - Use Protonix (pantoprazole) 40 mg PO BID indefinitely. - Use sucralfate tablets 1 gram PO QID for 4 weeks. - Use metoclopramide 5 mg PO QID; 30 min AC and HS for 4 weeks. - Fluconazole 200 mg via PEG daily x10 days - Continue present medications. My findings are described in the full procedure note, which is enclosed. If I can be of further assistance, please feel free to contact me at . Sincerely, Damián Deleon, 11/18/2022 11:53:26 AM This report has been signed electronically.
[2022-11-18] MEDS: Insulin Lispro 100 UNIT/ML INSULN.PEN SC (12:39)
[2022-11-18 13:00] LABS: Bedside Glucose 233 mg/dL (74-106)
--- NOTE | 2022-11-18 13:16 | CASEMGMT ---
[facility] accepted patient. SW called patient's step son and DEBBIE Ben letting him know [facility] can take patient. Plan: d/c to [facility] when medically ready and pending pre-cert. June OLEA
[2022-11-18 13:19] LABS: Absolute Lymphocyte Count 1.15 X10^3/uL (0.83-4.51); Absolute Neutrophil Count 4.5 X10^3/uL (2.0-7.7); Basophil# 0.13 X10^3/uL; Eosinophil# 0.22 X10^3/uL; Eosinophils% 3.4 % (0-5); Hemoglobin 7.9 g/dL (13.0-16.5); Lymphocyte # 1.15 X10^3/ul (0.83-4.51); Mean Corp Hgb Conc 31.6 g/dL (32-36); Mean Corpuscular Hgb 30.3 pg (27.0-32.0); Mean Corpuscular Volume 95.8 fL (80-94); Mean Platelet Vol. 9.9 fl (6.2-12.0); Monocyte# 0.38 X10^3/uL; NRBC Flagged by Analyzer 0 % (0-5); Neutrophil # 4.49 X10^3/uL (2.7-7.7); Neutrophil % 70.4 % (47-70); Platelet Count 278 K/mm3 (150-450); RBC Distribution Width CV 12.5 % (11.6-14.6); RBC Distribution Width SD 43.7 fl (35.1-43.9); Red Blood Count 2.61 M/mm3 (4.6-6.2); White Blood Count 6.4 K/mm3 (4.4-11.0)
--- NOTE | 2022-11-18 13:33 | CASEMGMT ---
Updates sent to [facility]. June Piña CPAS STOCK WORKER
[2022-11-18 13:52] LABS: Anion Gap 10 (5-15); BUN 26 mg/dL (7-18); BUN/Creat Ratio 6.5 RATIO (10-20); Calcium,Total 8.1 mg/dL (8.5-10.1); Chloride 103 mmol/L (98-107); Creatinine, Serum 4.03 mg/dL (0.70-1.30); EST Glomerular Filtration Rate 16 mL/min (>60); Est Glom Filt Rate - Afr Amer 20 mL/min (>60); Estimated Creatinine Clearance 18.31 ml/min; Glucose 234 mg/dL (74-106); Potassium 3.9 mmol/L (3.5-5.1); Sodium Level 138 mmol/L (136-145)
[2022-11-18 19:10] LABS: Bedside Glucose 151 mg/dL (74-106)
--- NOTE | 2022-11-18 19:17 | DIALYSIS ---
Hemodialysis x 2 hours completed as ordered. Patient tolerated well. UF 200. CVC flushed wwith normal saline and filled to volume with heparin. Report given to facility ISABEL Seals.
[2022-11-18] MEDS: Metoclopramide 5 MG TABLET PO (21:12)
[2022-11-18] MEDS: Pantoprazole Sodium 40 MG Tablet PO (21:12)
[2022-11-18] MEDS: Sucralfate 1 GM Tablet PO (21:12)
[2022-11-18] MEDS: Fluconazole Suspension 40 MG/ML 35 ML Bottle 200 MG PO (21:13)
[2022-11-18 23:56] LABS: Bedside Glucose 191 mg/dL (74-106)
[2022-11-19 03:15] VITALS: BP 148/79; PULSE 79; RESP 18; TEMP 36.7; O2SAT 94
[2022-11-19] MEDS: Metoclopramide 5 MG TABLET PO ×3 (05:27→15:08)
[2022-11-19] MEDS: Sucralfate 1 GM Tablet PO ×2 (05:27→11:44)
[2022-11-19] MEDS: Insulin Glargine-YFGN 100 UNIT/ML Pen 30 UNIT SC ×2 (05:37→18:07)
[2022-11-19 06:45] LABS: Bedside Glucose 292 mg/dL (74-106)
[2022-11-19 06:45] LABS: Bedside Glucose 238 mg/dL (74-106)
[2022-11-19 07:43] VITALS: O2SAT 95
--- NOTE | 2022-11-19 09:00 | PN_ITS ---
Subjective Subjective Patient was discovered to have severe erosive esophagitis LA grade D with bleeding stigmata. Electrocautery was used to stop GI bleeding. Patient has not had any bleeding overnight. Objective Data Objective Data Vital Signs: Vital Signs Temp Pulse Resp BP Pulse Ox O2 Del Method O2 Flow Rate 97.5 F L 80 16 119/67 97 Room Air 2 11/19/22 15:14 11/19/22 15:14 11/19/22 15:14 11/19/22 15:14 11/19/22 15:14 11/19/22 15:14 11/17/22 10:00 Oxygen Flow Rate (L/min) 2 Oxygen Delivery Method Room Air Weight: 139 lb 5.314 oz Body Mass Index (BMI) 22.4 Intake & Output: Intake and Output for Last 24 Hours 11/17/22 11/18/22 11/19/22 23:59 23:59 23:59 Intake Total 2163.33 / 2163.33 110 / 110 Output Total 2150 / 2300 1950 / 1950 0 / 0 Balance 13.33 / -136.67 -1840 / -1840 0 / 0 Medical Nutrition Assessment Dietitian: Malnutrition Criteria Met Start: 11/17/22 14:00 Freq: Status: Active Protocol: Document 11/19/22 13:43 AG (Rec: 11/19/22 13:43 [id number]) Nutrition Malnutrition Evidence of Malnutrition Exists Yes Malnutrition (severe): Chronic Evidenced By Suboptimal Energy Intake ( Severe),Weight Loss (Severe) Clinical Problem Chronic Disease or Condition Related Malnutrition Etiology chronic, severe malnutrition related to inadequate energy intake via PEG d/t GI dysfunction Signs/Symptoms as evidenced by interruptions in enteral nutrition support suggesting EN meeting <75% of estimated energy needs x 2 months; unintentional 16.5kg/ 20% wt loss over past ~2 months Status Active Problem Recommendation Dietitian Recommendations/Changes 1). Will resume via PEG- Vital AF 1.2 at goal rate of 60mL/ hour w/ 50mL H2O flush every 4 hours to provide 1728 calories, 108 g protein, and 1467mL total fluid/day. Would start at 20mL/hour and increase by 10mL/hour every 8- 12 hours as tolerated until goal rate is achieved. 2). HOSPITALITY JOB TITLES following- no indications for PO diet advancement at this time. 3). Daily wts. Lab / Micro Data Result Diagrams: 11/18/22 13:05 11/18/22 13:05 Labs: Laboratory Results - last 24 hr 11/18/22 18:49: POC Glucose 151 H 11/18/22 23:33: POC Glucose 191 H 11/19/22 03:12: POC Glucose 238 H 11/19/22 05:36: POC Glucose 292 H 11/19/22 11:43: POC Glucose 347 H Physical Exam Narrative GENERAL: cooperative HEENT: Atraumatic; normocephalic EYES; Anicteric, Normal Conjunctiva NECK; supple, normal thyroid, RESPIRATORY: Diminished to auscultation CARDIOVASCULAR: Regular S1 S2, GI: soft, normoactive bowel sounds, : No Renal angle tenderness; EXTREMITIES: No edema, no clubbing, MUSCULOSKELETAL: no muscle wasting NEURO: Awake; no lateralizing signs. SKIN: No Rash PSYCH; Flat affect Assessment & Plan Assessment/Plan (1) Acute upper GI bleed: PLAN: Plan Patient is a 57-year-old gentleman with significant past medical history inclu ding end-stage renal disease on hemodialysis, known history of gastric ulcers who presented with coffee-ground emesis 1. Acute GI bleed ? Secondary to recurrent bleeding from gastric ulcer. Patient has been admitted to a monitored bed started on Protonix drip GI consulted Patient underwent EGD by Dr. Deleon findings and recommendations as below Impressions : - LA Grade D erosive esophagitis.? Injected. - Bleeding esophageal ulcer.? Treated with bipolar cautery. - Small hiatal hernia. - Intact gastrostomy with a patent G-tube present. - No gross lesions in the first portion of the duodenum. - No specimens collected. Recommendations : - Return patient to [facility] for ongoing care. - Use Protonix (pantoprazole) 40 mg PO BID indefinitely. - Use sucralfate tablets 1 gram PO QID for 4 weeks. - Use metoclopramide 5 mg PO QID; 30 min AC and HS for 4 weeks. - Fluconazole 200 mg via PEG daily x10 days - Continue present medications. 2. Anemia ? Secondary to acute blood loss anemia from GI bleed monitoring H&H with plans to transfuse if hemoglobin falls below 7 Charges/Coding Visit Charges Inpatient E&M: 13268 [facility] Hosp L3
[2022-11-19] MEDS: Menthol/Lanolin/Calamine/Znox 113 GM Tube 1 APPLIC TOPICAL ×2 (09:04→21:35)
[2022-11-19] MEDS: Latanoprost 0.005% 1 Bottle 1 DRP OPHTHALMIC (09:05)
[2022-11-19] MEDS: Dorzolamide HCL/Timolol 10 ml Bottle 1 DRP OPHTHALMIC ×2 (09:06→21:35)
[2022-11-19] MEDS: Pantoprazole Sodium 40 MG Tablet PO (09:07)
[2022-11-19] MEDS: Fluconazole Suspension 40 MG/ML 35 ML Bottle 200 MG PO (09:11)
[2022-11-19 09:21] VITALS: BP 138/72; PULSE 81; RESP 17; TEMP 36.6; O2SAT 96
--- NOTE | 2022-11-19 09:22 | PCM.PN.HOSP ---
Reason for Visit Reason for Visit: Diagnoses Gastrointestinal hemorrhage, unspecified (11/16/22) Acute kidney failure, unspecified (11/16/22) Subjective Subjective Patient underwent EGD today prior results and recommendation as below. Patient is awaiting insurance precertification prior to transfer to long term [facility] Objective Data Objective Data Vital Signs: Vital Signs Temp Pulse Resp BP Pulse Ox O2 Del Method O2 Flow Rate 98.0 F 79 18 148/79 H 94 Room Air 2 11/19/22 03:15 11/19/22 03:15 11/19/22 03:15 11/19/22 03:15 11/19/22 03:15 11/19/22 03:15 11/17/22 10:00 Oxygen Flow Rate (L/min) 2 Oxygen Delivery Method Room Air Weight: 63.2 kg Body Mass Index (BMI) 22.4 Intake & Output: Intake and Output for Last 24 Hours 11/17/22 11/18/22 11/19/22 23:59 23:59 23:59 Intake Total 2163.33 / 2163.33 110 / 110 Output Total 2150 / 2300 1950 / 1950 0 / 0 Balance 13.33 / -136.67 -1840 / -1840 0 / 0 Medical Nutrition Assessment Dietitian: Malnutrition Criteria Met Start: 11/17/22 14:00 Freq: Status: Active Protocol: Document 11/17/22 14:00 (Rec: 11/17/22 14:00 [id number]) Nutrition Malnutrition Evidence of Malnutrition Exists Yes Malnutrition (severe): Chronic Evidenced By Suboptimal Energy Intake ( Severe),Weight Loss (Severe) Clinical Problem Chronic Disease or Condition Related Malnutrition Etiology chronic, severe malnutrition related to inadequate energy intake via PEG d/t GI dysfunction Signs/Symptoms as evidenced by interruptions in enteral nutrition support suggesting EN meeting <75% of estimated energy needs x 2 months; unintentional 16.5kg/ 20% wt loss over past ~2 months Status Active Problem Recommendation Dietitian Recommendations/Changes 1). When medically indicated, recommend Vital AF 1.2 at goal rate of 60mL/hour w/ 50mL H2O flush every 4 hours to provide 1728 calories, 108 g protein, and 1467mL total fluid/day. Would start at 20mL /hour and increase by 10mL/ hour every 8-12 hours as tolerated until goal rate is achieved. 2). INTELLIGENCE SUPPORT OFFICER following- no indications for PO diet advancement at this time. 3). Daily wts. Lab / Micro Data Result Diagrams: 11/18/22 13:05 11/18/22 13:05 Labs: Laboratory Results - last 24 hr 11/18/22 12:34: POC Glucose 233 H 11/18/22 13:05: WBC 6.4, RBC 2.61 L, Hgb 7.9 L, Hct 25.0 L, MCV 95.8 H, MCH 30.3, MCHC 31.6 L D, RDW Std Deviation 43.7, RDW Coeff of Jenifer 12.5, Plt Count 278, MPV 9.9, Immature Gran % (Auto) 0.200, Neut % (Auto) 70.4 H, Lymph % (Auto) 18.0 L, [place] % (Auto) 6.0, Eos % (Auto) 3.4, Baso % (Auto) 2.0 H, Absolute Neuts (auto) 4.5, Absolute Lymphs (auto) 1.15, Nucleated RBC % 0 11/18/22 13:05: Sodium 138, Potassium 3.9, Chloride 103, Carbon Dioxide 25.0, Anion Gap 10, BUN 26 H, Creatinine 4.03 H, Estim Creat Clear Calc 18.31, Est GFR (MDRD) Af Amer 20 L, Est GFR (MDRD) Non-Af 16 L, BUN/Creatinine Ratio 6.5 L, Glucose 234 H, Calcium 8.1 L 11/18/22 18:49: POC Glucose 151 H 11/18/22 23:33: POC Glucose 191 H 11/19/22 03:12: POC Glucose 238 H 11/19/22 05:36: POC Glucose 292 H Physical Exam Narrative GENERAL: cooperative HEENT: Atraumatic; normocephalic EYES; Anicteric, Normal Conjunctiva NECK; supple, normal thyroid, RESPIRATORY: Diminished to auscultation CARDIOVASCULAR: Regular S1 S2, GI: soft, normoactive bowel sounds, : No Renal angle tenderness; EXTREMITIES: No edema, no clubbing, MUSCULOSKELETAL: no muscle wasting NEURO: Awake; no lateralizing signs. SKIN: No Rash PSYCH; Flat affect Assessment & Plan Assessment/Plan (1) Acute upper GI bleed: PLAN: Plan Patient is a 57-year-old gentleman with significant past medical history including end-stage renal disease on hemodialysis, known history of gastric ulcers who presented with coffee-ground emesis 1. Acute GI bleed ? Secondary to recurrent bleeding from gastric ulcer. Patient has been admitted to a monitored bed started on Protonix drip GI consulted Patient underwent EGD by Dr. Deleon findings and recommendations as below Impressions : - LA Grade D erosive esophagitis.? Injected. - Bleeding esophageal ulcer.? Treated with bipolar cautery. - Small hiatal hernia. - Intact gastrostomy with a patent G-tube present. - No gross lesions in the first portion of the duodenum. - No specimens collected. Recommendations : - [facility] to [facility] for [facility] care. - Use Protonix (pantoprazole) 40 mg PO BID indefinitely. - Use sucralfate tablets 1 gram PO QID for 4 weeks. - Use metoclopramide 5 mg PO QID; 30 min AC and HS for 4 weeks. - Fluconazole 200 mg via PEG daily x10 days - Continue present medications. 2. Anemia ? Secondary to acute blood loss anemia from GI bleed monitoring H&H with plans to transfuse if hemoglobin falls below 7 3. Hypokalemia ? Corrected per protocol repeat BMP ordered for monitoring 4. End-stage renal disease ? Patient is on hemodialysis Wednesdays and Fridays nephrology consulted for dialysis orders 5. Coronary artery disease with recent non-STEMI ? Currently stable 6. Ischemic cardiomyopathy ? Echo obtained on 09/16/2022 demonstrated EF of 35% 7. Diabetes mellitus type 2 ? Patient is on insulin regimen did continue also placed on Accu-Cheks before meals and at bedtime with sliding scale coverage 8. Previous history of CVA ? With chronic dysphagia status post PEG tube placement 9. Hypertension - Blood pressure controlled, home medications continued with dose adjustment as needed 10. Congenital deafness ? Patient uses sign language 11. Dyslipidemia ? Patient is on statin therapy 12. DVT prophylaxis -held of chemoprophylaxis given patient active GI bleed ?chronic, severe malnutrition related to inadequate energy intake via PEG d/t GI dysfunction as evidenced by interruptions in enteral nutrition support suggesting EN meeting <75% of estimated energy needs x 2 months; unintentional 16.5kg/20% wt loss over past ~2 months. 1). When medically indicated, recommend Vital AF 1.2 at goal rate of 60mL/hour w/ 50mL H2O flush every 4 hours to provide 1728 calories, 108 g protein, and 1467mL total fluid/day. Would start at 20mL/hour and increase by 10mL/hour every 8-12 hours as tolerated until goal rate is achieved. Time spent in the patient's overall evaluation,decision-making process, review of diagnostic data, adjustment of management, discussion with other providers, nursing nursing and ancillary staff involved in patient's care documentation, 38 Minutes Charges/Coding Visit Charges Inpatient E&M: 14456 Subs Hosp L2
[2022-11-19] MEDS: Insulin Lispro 100 UNIT/ML INSULN.PEN SC ×3 (11:45→23:54)
[2022-11-19 12:10] LABS: Bedside Glucose 347 mg/dL (74-106)
--- NOTE | 2022-11-19 12:46 | CASEMGMT ---
Patient was approved to go to [facility]. Patient has not re-started his tube feeds yet. He will need to be back on his tube feeds and tolerating them before he can go. June OLEA
--- NOTE | 2022-11-19 13:42 | TREXTCAR_ITS ---
Diet Diet Order/Speech Therapy: 11/16/22 21:13 Diet: Nothing Per Oral Problem/Diagnosis (1) Acute upper GI bleed: Status: Acute Code(s): K92.2 - Gastrointestinal hemorrhage, unspecified Plan Patient is a 57-year-old gentleman with significant past medical history including end-stage renal disease on hemodialysis, known history of gastric ulcers who presented with coffee-ground emesis 1. Acute GI bleed ? Secondary to recurrent bleeding from gastric ulcer. Patient has been admitted to a monitored bed started on Protonix drip GI consulted Patient underwent EGD by Dr. Deleon findings and recommendations as below Impressions : - LA Grade D erosive esophagitis.? Injected. - Bleeding esophageal ulcer.? Treated with bipolar cautery. - Small hiatal hernia. - Intact gastrostomy with a patent G-tube present. - No gross lesions in the first portion of the duodenum. - No specimens collected. Recommendations : - [facility]. - Use Protonix (pantoprazole) 40 mg PO BID indefinitely. - Use sucralfate tablets 1 gram PO QID for 4 weeks. - Use metoclopramide 5 mg PO QID; 30 min AC and HS for 4 weeks. - Fluconazole 200 mg via PEG daily x10 days - Continue present medications. 2. Anemia ? Secondary to acute blood loss anemia from GI bleed monitoring H&H with plans to transfuse if hemoglobin falls below 7 3. Hypokalemia ? Corrected per protocol repeat BMP ordered for monitoring 4. End-stage renal disease ? Patient is on hemodialysis Wednesdays and Fridays nephrology consulted for dialysis orders 5. Coronary artery disease with recent non-STEMI ? Currently stable 6. Ischemic cardiomyopathy ? Echo obtained on 09/16/2022 demonstrated EF of 35% 7. Diabetes mellitus type 2 ? Patient is on insulin regimen did continue also placed on Accu-Cheks before meals and at bedtime with sliding scale coverage 8. Previous history of CVA ? With chronic dysphagia status post PEG tube placement 9. Hypertension - Blood pressure controlled, home medications continued with dose adjustment as needed 10. Congenital deafness ? Patient uses sign language 11. Dyslipidemia ? Patient is on statin therapy 12. DVT prophylaxis -held of chemoprophylaxis given patient active GI bleed ?chronic, severe malnutrition related to inadequate energy intake via PEG d/t GI dysfunction as evidenced by interruptions in enteral nutrition support suggesting EN meeting <75% of estimated energy needs x 2 months; unintentional 16.5kg/20% wt loss over past ~2 months. 1). When medically indicated, recommend Vital AF 1.2 at goal rate of 60mL/hour w/ 50mL H2O flush every 4 hours to provide 1728 calories, 108 g protein, and 1467mL total fluid/day. Would start at 20mL/hour and increase by 10mL/hour every 8-12 hours as tolerated until goal rate is achieved. Time spent in the patient's overall evaluation,decision-making process, review of diagnostic data, adjustment of management, discussion with other providers, nursing nursing and ancillary staff involved in patient's care documentation, 38 Minutes Allergies/Procedures Done in Hospital Allergies No Known Allergies Allergy (Verified 11/16/22 13:31) Type of Care/Length of Stay Estimated LOS: More Than 30 Days Type of Care Needed: Skilled Rehab Potential: Good Prognosis: Good Additional Orders/Day of Discharge Day of Discharge: 11/19/22 Dietary and Speech Recommendations Dietitian Recommendations/Changes: 1). When medically indicated, recommend Vital AF 1.2 at goal rate of 60mL/hour w/ 50mL H2O flush every 4 hours to provide 1728 calories, 108 g protein, and 1467mL total fluid/day. Would start at 20mL/hour and increase by 10mL/hour every 8-12 hours as tolerated until goal rate is achieved. 2). 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 3). Daily wts. Discharge Plan Admission Admit Date/Time: 11/16/22 15:06 Attending Provider: Austin Meneses Primary Care Provider: Marta Brooks Consulting Providers: Negrita Rain ; Aries Truong Discharge Orders/Prescriptions Prescriptions: New fluconazole 40 mg/mL Suspension For Reconstitution 200 mg PO DAILY 10 Days Qty: 0 0RF sucralfate 1 gram Tablet 1 g PO 1HR_ACHS 30 Days Qty: 0 0RF pantoprazole 40 mg Tablet,Delayed Release (Dr/Ec) 40 mg PO BID Qty: 0 0RF Continued latanoprost 0.005 % drops 1 drp OPHTHALMIC DAILY dorzolamide-timolol (PF) 2-0.5 % dropperette 1 drp OPHTHALMIC BID amlodipine 5 mg tablet 5 mg feeding tube DAILY ondansetron 4 mg tablet,disintegrating 4 mg PO Q6H PRN (Reason: nausea and vomiting) Qty: 30 0RF furosemide 40 mg tablet 40 mg feeding tube SuTuThSa isosorbide dinitrate 10 mg tablet 10 mg feeding tube BID insulin lispro [Humalog KwikPen Insulin] 100 unit/mL insulin pen See Protocol subcut Q6H Protocol: 4. Sliding Scale Insulin High-Med Dosing Condition: 150-199 mg/dl = 2 units Condition: 200-259 mg/dl = 4 units Condition: 260-324 mg/dl = 6 units Condition: 325-374 mg/dl = 8 units Condition: 375-409 mg/dl = 10 units Condition: 410-449 mg/dl = 11 units Condition: Greater than 449 call physician Protocol Text: - Use for Total Daily Dose of Insulin 56-80 units - Patient who are insulin resistant or septic HIGH MEDIUM DOSING ALGORITHM polyethylene glycol 3350 17 gram Powder In Packet 17 g PO BID PRN (Reason: constipation) Qty: 100 0RF atorvastatin 40 mg tablet 40 mg G-tube QHS carvedilol 25 mg tablet 25 mg G-tube BID lansoprazole [Prevacid] 30 mg capsule,delayed release(DR/EC) 30 mg feeding tube BID hydralazine 50 mg tablet 50 mg G-tube TID metoclopramide HCl [Reglan] 10 mg tablet 10 mg PO TID menthol-zinc oxide [Calmoseptine] 0.44-20.6 % ointment 1 applic topical BID Protocol: *Topical Application Instructions APPLICATION INSTRUCTIONS: Apply to coccyx Rx Instructions: apply to coccyx insulin glargine-yfgn 100 unit/mL (3 mL) insulin pen 30 unit subcut 0600,1800 Referrals / Follow Up: Marta Brooks, CORPORATE RECEPTIONIST-C [Primary Care Provider] - Disposition Disposition (needs filled in before D/C Order can be placed): [facility]
[2022-11-19 15:14] VITALS: BP 119/67; PULSE 80; RESP 16; TEMP 36.4; O2SAT 97
[2022-11-19] MEDS: Vital AF 1.2 Cal Liquid 1,000 ML 20 ML GT (15:40)
[2022-11-19 18:30] LABS: Bedside Glucose 251 mg/dL (74-106)
[2022-11-19 19:00] VITALS: PULSE 82
[2022-11-19 21:31] VITALS: BP 157/81; PULSE 84; RESP 16; TEMP 36.7; O2SAT 96
[2022-11-19] MEDS: Sucralfate 1 GM Tablet GT (22:38)
[2022-11-19] MEDS: Lansoprazole 15 MG Capsule.DR 30 MG NG (22:38)
[2022-11-20] VITALS (8 sets, daily range): BP systolic 116–144; BP diastolic 65–77; PULSE 79–95; RESP 14–18; TEMP 35.6–36.6; O2SAT 96–99
[2022-11-20 00:15] LABS: Bedside Glucose 345 mg/dL (74-106)
[2022-11-20] MEDS: Sucralfate 1 GM Tablet GT (06:02)
[2022-11-20] MEDS: Metoclopramide 5 MG TABLET GT ×3 (06:02→15:07)
[2022-11-20] MEDS: Insulin Lispro 100 UNIT/ML INSULN.PEN SC (06:10)
[2022-11-20] MEDS: Insulin Glargine-YFGN 100 UNIT/ML Pen 30 UNIT SC (06:11)
[2022-11-20 06:35] LABS: Bedside Glucose 284 mg/dL (74-106)
--- NOTE | 2022-11-20 08:00 | PCM.PROGNOTE ---
Subjective Subjective Patient is doing well and has not had any more signs of dry heaving or hematemesis Objective Data Objective Data Vital Signs: Vital Signs Temp Pulse Resp BP Pulse Ox O2 Del Method O2 Flow Rate 97.9 F 95 18 131/65 H 98 Room Air 2 11/20/22 15:25 11/20/22 15:25 11/20/22 15:25 11/20/22 15:25 11/20/22 15:25 11/20/22 15:25 11/17/22 10:00 Oxygen Flow Rate (L/min) 2 Oxygen Delivery Method Room Air Weight: 140 lb 6.951 oz Body Mass Index (BMI) 22.4 Intake & Output: Intake and Output for Last 24 Hours 11/18/22 11/19/22 11/20/22 23:59 23:59 23:59 Intake Total 110 / 110 544.33 / 544.33 401.5 / 401.5 Output Total 1950 / 1950 400 / 400 1275 / 1275 Balance -1840 / -1840 144.33 / 144.33 -873.5 / -873.5 Lab / Micro Data Result Diagrams: 11/20/22 12:30 11/20/22 12:25 Labs: Laboratory Results - last 24 hr 11/19/22 18:05: POC Glucose 251 H 11/19/22 23:53: POC Glucose 345 H 11/20/22 06:09: POC Glucose 284 H 11/20/22 11:35: POC Glucose 88 11/20/22 12:25: Sodium 139, Potassium 3.4 L, Chloride 103, Carbon Dioxide 26.0, Anion Gap 10, BUN 13, Creatinine 2.17 H, Estim Creat Clear Calc 33.43, Est GFR (MDRD) Af Amer 40 L, Est GFR (MDRD) Non-Af 33 L, BUN/Creatinine Ratio 6.0 L, Glucose 91, Calcium 8.1 L, Magnesium 2.1 11/20/22 12:25: Phosphorus 2.0 L 11/20/22 12:30: WBC 6.7, RBC 2.89 L, Hgb 8.6 L, Hct 26.5 L, MCV 91.7, MCH 29.8, MCHC 32.5, RDW Std Deviation 41.2, RDW Coeff of Jenifer 12.5, Plt Count 337, MPV 10.6, Immature Gran % (Auto) 0.400, Neut % (Auto) 65.1, Lymph % (Auto) 21.7, Stephenson % (Auto) 5.8, Eos % (Auto) 5.2 H, Baso % (Auto) 1.8 H, Absolute Neuts (auto) 4.3, Absolute Lymphs (auto) 1.45, Nucleated RBC % 0.3 Physical Exam Narrative Alert awake no obvious distress no pallor no icterus no JVD s1s2 no murmurs lungs clear abdomen soft no organomegaly no edema no cyanosis Assessment & Plan Assessment/Plan (1) Acute upper GI bleed: PLAN: Plan Patient is a 57-year-old gentleman with significant past medical history including end-stage renal disease on hemodialysis, known history of gastric ulcers who presented with coffee-ground emesis 1. Acute GI bleed ? Secondary to recurrent bleeding from gastric ulcer. Patient has been admitted to a monitored bed started on Protonix drip GI consulted Patient underwent EGD by Dr. Deleon findings and recommendations as below Impressions : - LA Grade D erosive esophagitis.? Injected. - Bleeding esophageal ulcer.? Treated with bipolar cautery. - Small hiatal hernia. - Intact gastrostomy with a patent G-tube present. - No gross lesions in the first portion of the duodenum. - No specimens collected. Recommendations : - Return patient to [facility] for ongoing care. - Use Protonix (pantoprazole) 40 mg PO BID indefinitely. - Use sucralfate tablets 1 gram PO QID for 4 weeks. - Use metoclopramide 5 mg PO QID; 30 min AC and HS for 4 weeks. - Fluconazole 200 mg via PEG daily x10 days - Continue present medications. 2. Anemia ? Secondary to acute blood loss anemia from GI bleed monitoring H&H with plans to transfuse if hemoglobin falls below 7 Charges/Coding Visit Charges Inpatient E&M: 45022 Subs Hosp L2
--- NOTE | 2022-11-20 08:14 | PCM.PN.HOSP ---
Reason for Visit Reason for Visit: Diagnoses Gastrointestinal hemorrhage, unspecified (11/16/22) Acute kidney failure, unspecified (11/16/22) Subjective Subjective Patient seen currently undergoing dialysis. Patient is on Carafate discontinued due to interaction with his tube feed. Plan is for patient to be discharged to [facility]CF once he reaches his feeding tube goal Objective Data Objective Data Vital Signs: Vital Signs Temp Pulse Resp BP Pulse Ox O2 Del Method O2 Flow Rate 97.7 F L 79 16 125/68 H 99 Room Air 2 11/20/22 03:26 11/20/22 06:59 11/20/22 03:26 11/20/22 03:26 11/20/22 03:26 11/20/22 03:26 11/17/22 10:00 Oxygen Flow Rate (L/min) 2 Oxygen Delivery Method Room Air Weight: 63.7 kg Body Mass Index (BMI) 22.4 Intake & Output: Intake and Output for Last 24 Hours 11/18/22 11/19/22 11/20/22 23:59 23:59 23:59 Intake Total 110 / 110 544.33 / 544.33 325 / 325 Output Total 1950 / 1950 400 / 400 200 / 200 Balance -1840 / -1840 144.33 / 144.33 125 / 125 Medical Nutrition Assessment Dietitian: Malnutrition Criteria Met Start: 11/17/22 14:00 Freq: Status: Active Protocol: Document 11/19/22 13:43 AG (Rec: 11/19/22 13:43 AG [id number]) Nutrition Malnutrition Evidence of Malnutrition Exists Yes Malnutrition (severe): Chronic Evidenced By Suboptimal Energy Intake ( Severe),Weight Loss (Severe) Clinical Problem Chronic Disease or Condition Related Malnutrition Etiology chronic, severe malnutrition related to inadequate energy intake via PEG d/t GI dysfunction Signs/Symptoms as evidenced by interruptions in enteral nutrition support suggesting EN meeting <75% of estimated energy needs x 2 months; unintentional 16.5kg/ 20% wt loss over past ~2 months Status Active Problem Recommendation Dietitian Recommendations/Changes 1). Will resume via PEG- Vital AF 1.2 at goal rate of 60mL/ hour w/ 50mL H2O flush every 4 hours to provide 1728 calories, 108 g protein, and 1467mL total fluid/day. Would start at 20mL/hour and increase by 10mL/hour every 8- 12 hours as tolerated until goal rate is achieved. 2). 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 3). Daily wts. Lab / Micro Data Result Diagrams: 11/18/22 13:05 11/18/22 13:05 Labs: Laboratory Results - last 24 hr 11/19/22 11:43: POC Glucose 347 H 11/19/22 18:05: POC Glucose 251 H 11/19/22 23:53: POC Glucose 345 H 11/20/22 06:09: POC Glucose 284 H Physical Exam Narrative GENERAL: cooperative HEENT: Atraumatic; normocephalic EYES; Anicteric, Normal Conjunctiva NECK; supple, normal thyroid, RESPIRATORY: Diminished to auscultation CARDIOVASCULAR: Regular S1 S2, GI: soft, normoactive bowel sounds, : No Renal angle tenderness; EXTREMITIES: No edema, no clubbing, MUSCULOSKELETAL: no muscle wasting NEURO: Awake; no lateralizing signs. SKIN: No Rash PSYCH; Flat affect Assessment & Plan Assessment/Plan (1) Acute upper GI bleed: PLAN: Plan Patient is a 57-year-old gentleman with significant past medical history including end-stage renal disease on hemodialysis, known history of gastric ulcers who presented with coffee-ground emesis 1. Acute GI bleed ? Secondary to recurrent bleeding from gastric ulcer. Patient has been admitted to a monitored bed started on Protonix drip GI consulted Patient underwent EGD by Dr. Deleon findings and recommendations as below Impressions : - LA Grade D erosive esophagitis.? Injected. - Bleeding esophageal ulcer.? Treated with bipolar cautery. - Small hiatal hernia. - Intact gastrostomy with a patent G-tube present. - No gross lesions in the first portion of the duodenum. - No specimens collected. Recommendations : - [facility] to [facility] for [facility] care. - Use Protonix (pantoprazole) 40 mg PO BID indefinitely. - Use sucralfate tablets 1 gram PO QID for 4 weeks. - Use metoclopramide 5 mg PO QID; 30 min AC and HS for 4 weeks. - Fluconazole 200 mg via PEG daily x10 days - Continue present medications. 2. Anemia ? Secondary to acute blood loss anemia from GI bleed monitoring H&H with plans to transfuse if hemoglobin falls below 7 3. Hypokalemia ? Corrected per protocol repeat BMP ordered for monitoring 4. End-stage renal disease ? Patient is on hemodialysis Wednesdays and Fridays nephrology consulted for dialysis orders 5. Coronary artery disease with recent non-STEMI ? Currently stable 6. Ischemic cardiomyopathy ? Echo obtained on 09/16/2022 demonstrated EF of 35% 7. Diabetes mellitus type 2 ? Patient is on insulin regimen did continue also placed on Accu-Cheks before meals and at bedtime with sliding scale coverage 8. Previous history of CVA ? With chronic dysphagia status post PEG tube placement 9. Hypertension - Blood pressure controlled, home medications continued with dose adjustment as needed 10. Congenital deafness ? Patient uses sign language 11. Dyslipidemia ? Patient is on statin therapy 12. DVT prophylaxis -held of chemoprophylaxis given patient active GI bleed ?chronic, severe malnutrition related to inadequate energy intake via PEG d/t GI dysfunction as evidenced by interruptions in enteral nutrition support suggesting EN meeting <75% of estimated energy needs x 2 months; unintentional 16.5kg/20% wt loss over past ~2 months. 1). When medically indicated, recommend Vital AF 1.2 at goal rate of 60mL/hour w/ 50mL H2O flush every 4 hours to provide 1728 calories, 108 g protein, and 1467mL total fluid/day. Would start at 20mL/hour and increase by 10mL/hour every 8-12 hours as tolerated until goal rate is achieved. Time spent in the patient's overall evaluation,decision-making process, review of diagnostic data, adjustment of management, discussion with other providers, nursing nursing and ancillary staff involved in patient's care documentation, 38 Minutes Charges/Coding Visit Charges Inpatient E&M: 40680 Subs Hosp L2
[2022-11-20] MEDS: Menthol/Lanolin/Calamine/Znox 113 GM Tube 1 APPLIC TOPICAL (10:00)
[2022-11-20] MEDS: Dorzolamide HCL/Timolol 10 ml Bottle 1 DRP OPHTHALMIC (10:00)
[2022-11-20] MEDS: Latanoprost 0.005% 1 Bottle 1 DRP OPHTHALMIC (10:01)
--- NOTE | 2022-11-20 10:30 | CASEMGMT ---
SW sent orders and Laborer Driver note to [facility] via [facility]. Patient will be discharged today later. June OLEA
[2022-11-20] MEDS: Vital AF 1.2 Cal Liquid 1,000 ML 45 ML GT (10:33)
--- NOTE | 2022-11-20 11:28 | DIALYSIS ---
Hemodialysis complete with 1 liter fluid removed. Dialysis CVC positional, lines ran reversed. Pt tolerated treatment without difficulty.
[2022-11-20] MEDS: Lansoprazole 15 MG Capsule.DR 30 MG NG (11:37)
[2022-11-20] MEDS: Fluconazole Suspension 40 MG/ML 35 ML Bottle 200 MG GT (11:37)
[2022-11-20] MEDS: Heparin 10,000 UNITS/10 ML Vial IV (11:40)
[2022-11-20 12:42] LABS: Absolute Lymphocyte Count 1.45 X10^3/uL (0.83-4.51); Absolute Neutrophil Count 4.3 X10^3/uL (2.0-7.7); Basophil# 0.12 X10^3/uL; Basophil% 1.8 % (0-1); Eosinophil# 0.35 X10^3/uL; Eosinophils% 5.2 % (0-5); Hematocrit 26.5 % (40-54); Hemoglobin 8.6 g/dL (13.0-16.5); Lymphocyte # 1.45 X10^3/ul (0.83-4.51); Lymphocyte % 21.7 % (19-41); Mean Corp Hgb Conc 32.5 g/dL (32-36); Mean Corpuscular Hgb 29.8 pg (27.0-32.0); Mean Corpuscular Volume 91.7 fL (80-94); Mean Platelet Vol. 10.6 fl (6.2-12.0); Monocyte# 0.39 X10^3/uL; Monocyte% 5.8 % (0-10); NRBC Flagged by Analyzer 0.3 % (0-5); Neutrophil # 4.34 X10^3/uL (2.7-7.7); Neutrophil % 65.1 % (47-70); Platelet Count 337 K/mm3 (150-450); RBC Distribution Width CV 12.5 % (11.6-14.6); RBC Distribution Width SD 41.2 fl (35.1-43.9); Red Blood Count 2.89 M/mm3 (4.6-6.2); White Blood Count 6.7 K/mm3 (4.4-11.0)
--- NOTE | 2022-11-20 12:50 | PCM.DC.SUM ---
Providers Date of Admission: 11/16/22 Date of Discharge: 11/19/22 Primary Care Physician: ZELDA Virk Consultations 11/16/22 21:13 Consult: Gastroenterology Routine Consulting Provider: Afshin Gastroenterology Reason for Consult: Recurrent GI bleed, ABLA EMERGENT Consult: No Notified: Yes Date Notified: 11/16/22 Time Notified: 15:11 Method of Notification: ED Physician Initiated Consult: Nephrology Routine Consulting Provider: Aries Truong Reason for Consult: ESRD on HD. EMERGENT Consult: No Notified: Yes Date Notified: 11/17/22 Time Notified: 07:54 Method of Notification: Answering Service Reason For Visit: GI BLEED,HYPOTENSION,ABLA Diagnosis Discharge Diagnosis (1) Acute upper GI bleed: Status: Acute Code(s): K92.2 - Gastrointestinal hemorrhage, unspecified Plan Patient is a 57-year-old gentleman with significant past medical history including end-stage renal disease on hemodialysis, known history of gastric ulcers who presented with coffee-ground emesis 1. Acute GI bleed ? Secondary to recurrent bleeding from gastric ulcer. Patient has been admitted to a monitored bed started on Protonix drip GI consulted Patient underwent EGD by Dr. Deleon findings and recommendations as below Impressions : - LA Grade D erosive esophagitis.? Injected. - Bleeding esophageal ulcer.? Treated with bipolar cautery. - Small hiatal hernia. - Intact gastrostomy with a patent G-tube present. - No gross lesions in the first portion of the duodenum. - No specimens collected. Recommendations : - Return patient to [facility] for [facility] care. - Use Protonix (pantoprazole) 40 mg PO BID indefinitely. - Use sucralfate tablets 1 gram PO QID for 4 weeks. - Use metoclopramide 5 mg PO QID; 30 min AC and HS for 4 weeks. - Fluconazole 200 mg via PEG daily x10 days - Continue present medications. 2. Anemia ? Secondary to acute blood loss anemia from GI bleed monitoring H&H with plans to transfuse if hemoglobin falls below 7 3. Hypokalemia ? Corrected per protocol repeat BMP ordered for monitoring 4. End-stage renal disease ? Patient is on hemodialysis Wednesdays and Fridays nephrology consulted for dialysis orders 5. Coronary artery disease with recent non-STEMI ? Currently stable 6. Ischemic cardiomyopathy ? Echo obtained on 09/16/2022 demonstrated EF of 35% 7. Diabetes mellitus type 2 ? Patient is on insulin regimen did continue also placed on Accu-Cheks before meals and at bedtime with sliding scale coverage 8. Previous history of CVA ? With chronic dysphagia status post PEG tube placement 9. Hypertension - Blood pressure controlled, home medications continued with dose adjustment as needed 10. Congenital deafness ? Patient uses sign language 11. Dyslipidemia ? Patient is on statin therapy 12. DVT prophylaxis -held of chemoprophylaxis given patient active GI bleed ?chronic, severe malnutrition related to inadequate energy intake via PEG d/t GI dysfunction as evidenced by interruptions in enteral nutrition support suggesting EN meeting <75% of estimated energy needs x 2 months; unintentional 16.5kg/20% wt loss over past ~2 months. 1). When medically indicated, recommend Vital AF 1.2 at goal rate of 60mL/hour w/ 50mL H2O flush every 4 hours to provide 1728 calories, 108 g protein, and 1467mL total fluid/day. Would start at 20mL/hour and increase by 10mL/hour every 8-12 hours as tolerated until goal rate is achieved. Time spent in the patient's overall evaluation,decision-making process, review of diagnostic data, adjustment of management, discussion with other providers, nursing nursing and ancillary staff involved in patient's care documentation, 38 Minutes Medications at Discharge Home Medications dorzolamide-timolol (PF) 2 %-0.5 % eye drops in a dropperette 1 drp ophthalmic (eye) BID eyes 01/04/20 latanoprost 0.005 % eye drops 1 drp ophthalmic (eye) DAILY eyes 01/04/20 amlodipine 5 mg tablet 5 mg feeding tube DAILY BP 09/14/22 ondansetron 4 mg disintegrating tablet 4 mg PO Q6H PRN nausea and vomiting #30 tabs 10/19/22 furosemide 40 mg tablet 40 mg feeding tube SuTuThSa hypertension 10/21/22 insulin lispro 100 unit/mL subcutaneous pen (Humalog KwikPen (U-100) Insulin) See Protocol subcut Q6H DM 10/21/22 isosorbide dinitrate 10 mg tablet 10 mg feeding tube BID CKD 10/21/22 polyethylene glycol 3350 17 gram oral powder packet 17 g PO BID PRN constipation #100 ea 10/27/22 atorvastatin 40 mg tablet 40 mg G-tube QHS cholesterol 10/31/22 carvedilol 25 mg tablet 25 mg G-tube BID blood pressure 10/31/22 hydralazine 50 mg tablet 50 mg G-tube TID hypertension 10/31/22 insulin glargine-yfgn 100 unit/mL (3 mL) subcutaneous pen 30 unit subcut 0600,1800 DM 10/31/22 lansoprazole 30 mg capsule,delayed release (Prevacid) 30 mg feeding tube BID gerd 10/31/22 menthol 0.44 %-zinc oxide 20.6 % topical ointment (Calmoseptine) 1 applic topical BID redness 10/31/22 metoclopramide HCl 10 mg tablet (Reglan) 10 mg PO TID nausea 10/31/22 fluconazole 40 mg/mL oral suspension 200 mg (5 mL) PO DAILY 10 days #0 mL 11/19/22 pantoprazole 40 mg tablet,delayed release 40 mg PO BID #0 tabs 11/19/22 sucralfate 1 gram tablet 1 g PO 1HR_ACHS 30 days #0 tabs 11/19/22 Hospital Course Summary of Care Provided Minutes Spent on Discharge: 38 Physical Exam Narrative GENERAL: cooperative HEENT: Atraumatic; normocephalic EYES; Anicteric, Normal Conjunctiva NECK; supple, normal thyroid, RESPIRATORY: Diminished to auscultation CARDIOVASCULAR: Regular S1 S2, GI: soft, normoactive bowel sounds, : No Renal angle tenderness; EXTREMITIES: No edema, no clubbing, MUSCULOSKELETAL: no muscle wasting NEURO: Awake; no lateralizing signs. SKIN: No Rash PSYCH; Flat affect Medical Records Data Medical Nutrition Assessment Dietitian: Malnutrition Criteria Met Start: 11/17/22 14:00 Freq: Status: Active Protocol: Document 11/19/22 13:43 AG (Rec: 11/19/22 13:43 AG [id number]) Nutrition Malnutrition Evidence of Malnutrition Exists Yes Malnutrition (severe): Chronic Evidenced By Suboptimal Energy Intake ( Severe),Weight Loss (Severe) Clinical Problem Chronic Disease or Condition Related Malnutrition Etiology chronic, severe malnutrition related to inadequate energy intake via PEG d/t GI dysfunction Signs/Symptoms as evidenced by interruptions in enteral nutrition support suggesting EN meeting <75% of estimated energy needs x 2 months; unintentional 16.5kg/ 20% wt loss over past ~2 months Status Active Problem Recommendation Dietitian Recommendations/Changes 1). Will resume via PEG- Vital AF 1.2 at goal rate of 60mL/ hour w/ 50mL H2O flush every 4 hours to provide 1728 calories, 108 g protein, and 1467mL total fluid/day. Would start at 20mL/hour and increase by 10mL/hour every 8- 12 hours as tolerated until goal rate is achieved. 2). FURNACE TAPPER following- no indications for PO diet advancement at this time. 3). Daily wts. Weight / BMI Weight Weight: 63.2 kg Body Mass Index (BMI) 22.4 ABG / Lab / Microbiology Data Result Diagrams: 11/18/22 13:05 11/18/22 13:05 Laboratory: Laboratory Results - last 24 hr 11/18/22 18:49: POC Glucose 151 H 11/18/22 23:33: POC Glucose 191 H 11/19/22 03:12: POC Glucose 238 H 11/19/22 05:36: POC Glucose 292 H 11/19/22 11:43: POC Glucose 347 H D/C Instructions Discharge Diet: - (As Per Tube feed) Discharge Activity: Return to Normal Activity Call your doctor if you observe: Fever of 101 or Higher, Shortness of breath, Fainting spells and Chest pain Meaningful Use Info Meaningful Use Diagnoses (Choose all that apply): None applicable Discharge Plan Admission Admit Date/Time: 11/16/22 15:06 Attending Provider: Austin Meneses Primary Care Provider: Marta Brooks Consulting Providers: Negrita Rain ; Aries Truong Discharge Orders/Prescriptions Prescriptions: New fluconazole 40 mg/mL Suspension For Reconstitution 200 mg PO DAILY 10 Days Qty: 0 0RF sucralfate 1 gram Tablet 1 g PO 1HR_ACHS 30 Days Qty: 0 0RF pantoprazole 40 mg Tablet,Delayed Release (Dr/Ec) 40 mg PO BID Qty: 0 0RF Continued latanoprost 0.005 % drops 1 drp OPHTHALMIC DAILY dorzolamide-timolol (PF) 2-0.5 % dropperette 1 drp OPHTHALMIC BID amlodipine 5 mg tablet 5 mg feeding tube DAILY ondansetron 4 mg tablet,disintegrating 4 mg PO Q6H PRN (Reason: nausea and vomiting) Qty: 30 0RF furosemide 40 mg tablet 40 mg feeding tube SuTuThSa isosorbide dinitrate 10 mg tablet 10 mg feeding tube BID insulin lispro [Humalog KwikPen Insulin] 100 unit/mL insulin pen See Protocol subcut Q6H Protocol: 4. Sliding Scale Insulin High-Med Dosing Condition: 150-199 mg/dl = 2 units Condition: 200-259 mg/dl = 4 units Condition: 260-324 mg/dl = 6 units Condition: 325-374 mg/dl = 8 units Condition: 375-409 mg/dl = 10 units Condition: 410-449 mg/dl = 11 units Condition: Greater than 449 call physician Protocol Text: - Use for Total Daily Dose of Insulin 56-80 units - Patient who are insulin resistant or septic HIGH MEDIUM DOSING ALGORITHM polyethylene glycol 3350 17 gram Powder In Packet 17 g PO BID PRN (Reason: constipation) Qty: 100 0RF atorvastatin 40 mg tablet 40 mg G-tube QHS carvedilol 25 mg tablet 25 mg G-tube BID lansoprazole [Prevacid] 30 mg capsule,delayed release(DR/EC) 30 mg feeding tube BID hydralazine 50 mg tablet 50 mg G-tube TID metoclopramide HCl [Reglan] 10 mg tablet 10 mg PO TID menthol-zinc oxide [Calmoseptine] 0.44-20.6 % ointment 1 applic topical BID Protocol: *Topical Application Instructions APPLICATION INSTRUCTIONS: Apply to coccyx Rx Instructions: apply to coccyx insulin glargine-yfgn 100 unit/mL (3 mL) insulin pen 30 unit subcut 0600,1800 Referrals / Follow Up: Marta Brooks [employer] [Primary Care Provider] - Within 1 Week Disposition Disposition (needs filled in before D/C Order can be placed): Residential Facility Charges/Coding Visit Charges Inpatient E&M: 75213 Disch Hosp >30min
[2022-11-20 13:00] LABS: Bedside Glucose 88 mg/dL (74-106)
[2022-11-20 13:39] LABS: Anion Gap 10 (5-15); BUN 13 mg/dL (7-18); Calcium,Total 8.1 mg/dL (8.5-10.1); Chloride 103 mmol/L (98-107); Creatinine, Serum 2.17 mg/dL (0.70-1.30); EST Glomerular Filtration Rate 33 mL/min (>60); Est Glom Filt Rate - Afr Amer 40 mL/min (>60); Estimated Creatinine Clearance 33.43 ml/min; Glucose 91 mg/dL (74-106); Magnesium 2.1 mg/dL (1.6-2.6); Potassium 3.4 mmol/L (3.5-5.1); Sodium Level 139 mmol/L (136-145)
--- NOTE | 2022-11-20 15:07 | PCM.PN.REN ---
Subjective Subjective No new events Objective Data Objective Data Vital Signs: Vital Signs Temp Pulse Resp BP Pulse Ox O2 Del Method O2 Flow Rate 96.0 F L 81 14 116/67 96 Room Air 2 11/20/22 11:27 11/20/22 11:27 11/20/22 11:27 11/20/22 11:27 11/20/22 09:30 11/20/22 14:15 11/17/22 10:00 Oxygen Flow Rate (L/min) 2 Oxygen Delivery Method Room Air Weight: 63.7 kg Body Mass Index (BMI) 22.4 Intake & Output: Intake and Output for Last 24 Hours 11/18/22 11/19/22 11/20/22 23:59 23:59 23:59 Intake Total 110 / 110 544.33 / 544.33 401.5 / 401.5 Output Total 1950 / 1950 400 / 400 1275 / 1275 Balance -1840 / -1840 144.33 / 144.33 -873.5 / -873.5 Medical Nutrition Assessment Dietitian: Malnutrition Criteria Met Start: 11/17/22 14:00 Freq: Status: Active Protocol: Document 11/20/22 10:17 (Rec: 11/20/22 10:17 [id number]) Nutrition Malnutrition Evidence of Malnutrition Exists Yes Malnutrition (severe): Chronic Evidenced By Suboptimal Energy Intake ( Severe),Weight Loss (Severe) Clinical Problem Chronic Disease or Condition Related Malnutrition Etiology chronic, severe malnutrition related to inadequate energy intake via PEG d/t GI dysfunction Signs/Symptoms as evidenced by interruptions in enteral nutrition support suggesting EN meeting <75% of estimated energy needs x 2 months; unintentional 16.5kg/ 20% wt loss over past ~2 months Status Active Problem Recommendation Dietitian Recommendations/Changes 1). Will resume via PEG- Vital AF 1.2 at goal rate of 60mL/ hour w/ 50mL H2O flush every 4 hours to provide 1728 calories, 108 g protein, and 1467mL total fluid/day. Recommend resume at 45mL/hour and increase by 15mL/hour after 4 hours as tolerated until goal rate is achieved. 2). ELECTRONIC PAGINATION SYSTEM OPERATOR following- no indications for PO diet advancement at this time. Adjust EN if PO diet indicated . 3). Daily wts. Lab / Micro Data Result Diagrams: 11/20/22 12:30 11/20/22 12:25 Labs: Laboratory Results - last 24 hr 11/19/22 18:05: POC Glucose 251 H 11/19/22 23:53: POC Glucose 345 H 11/20/22 06:09: POC Glucose 284 H 11/20/22 11:35: POC Glucose 88 11/20/22 12:25: Sodium 139, Potassium 3.4 L, Chloride 103, Carbon Dioxide 26.0, Anion Gap 10, BUN 13, Creatinine 2.17 H, Estim Creat Clear Calc 33.43, Est GFR (MDRD) Af Amer 40 L, Est GFR (MDRD) Non-Af 33 L, BUN/Creatinine Ratio 6.0 L, Glucose 91, Calcium 8.1 L, Magnesium 2.1 11/20/22 12:25: Phosphorus 2.0 L 11/20/22 12:30: WBC 6.7, RBC 2.89 L, Hgb 8.6 L, Hct 26.5 L, MCV 91.7, MCH 29.8, MCHC 32.5, RDW Std Deviation 41.2, RDW Coeff of Jenifer 12.5, Plt Count 337, MPV 10.6, Immature Gran % (Auto) 0.400, Neut % (Auto) 65.1, Lymph % (Auto) 21.7, [place] % (Auto) 5.8, Eos % (Auto) 5.2 H, Baso % (Auto) 1.8 H, Absolute Neuts (auto) 4.3, Absolute Lymphs (auto) 1.45, Nucleated RBC % 0.3 Physical Exam Narrative Alert awake no obvious distress no pallor no icterus no JVD s1s2 no murmurs lungs clear abdomen soft no organomegaly no edema no cyanosis Assessment & Plan Assessment/Plan (1) TREVOR (acute kidney injury): PLAN: On dialysis. Presumably this is diabetes related. We never had a chance to do kidney biopsy since he has been unstable. No signs of recovery. We will maintain dialysis Wednesday, Wednesday, Wednesday schedule. Dialysis today. Discussed with staff. He has been on dialysis for several weeks now. No signs of recovery. Likely ESRD at this point. Anemia. Due to suspected GI bleed. Transfuse if hemoglobin is less than 7. GI bleed. Recently found to have upper GI ulcer.
--- NOTE | 2022-11-20 15:17 | CASEMGMT ---
[facility] requested 5 bottles of of tube feed be sent with patient. SW spoke with pharmacy and they will provide this. SW notified RN, charger operator, and sales secretary so they can make sure it goes with patient when he leaves. HUSSEIN called Physicians and arranged for patient to get picked up at via cot. HUSSEIN notified RN, sales secretary, charger operator, and patient's step son Ben. HUSSEIN also notified Isamar at [facility] of excelsior picker time and the tube feed. Plan: d/c to [facility] under skilled level of care. Physicians transported patient via cot. June OLEA
== END 2022-11-20 17:02 | disposition skilled nursing facility (03) | DRG 380 ==
LOC: ED 15:11 → PCU 11-17 07:13
PROVIDERS: Internal Medicine Gastroenterology; Admitting Provider Family Medicine; Emergency Provider Emergency Medicine; PCP Nurse Practitioner Family; Visit Provider Internal Medicine
PROC: 0DJ08ZZ Inspection of Upper Intestinal Tract, Via Natural or Artificial Opening Endoscopic (ICD-10-PCS; CPT 43235; principal; 2022-11-18 11:25)
DX: K22.11 Ulcer of esophagus with bleeding (principal); E43 Unspecified severe protein-calorie malnutrition; N18.6 End stage renal disease; I12.0 Hypertensive chronic kidney disease with stage 5 chronic kidney disease or end stage renal disease; D62 Acute posthemorrhagic anemia; N17.9 Acute kidney failure, unspecified; I42.9 Cardiomyopathy, unspecified; D63.8 Anemia in other chronic diseases classified elsewhere; K25.0 Acute gastric ulcer with hemorrhage; Z99.2 Dependence on renal dialysis; Z79.4 Long term (current) use of insulin; E10.22 Type 1 diabetes mellitus with diabetic chronic kidney disease; Z93.1 Gastrostomy status; I25.10 Atherosclerotic heart disease of native coronary artery without angina pectoris; E78.5 Hyperlipidemia, unspecified; E87.6 Hypokalemia; I25.5 Ischemic cardiomyopathy; K44.9 Diaphragmatic hernia without obstruction or gangrene; I25.2 Old myocardial infarction; R11.2 Nausea with vomiting, unspecified; H10.89 Other conjunctivitis; R19.5 Other fecal abnormalities; H90.5 Unspecified sensorineural hearing loss; Z86.73 Personal history of transient ischemic attack (TIA), and cerebral infarction without residual deficits; R13.10 Dysphagia, unspecified; Z68.22 Body mass index [BMI] 22.0-22.9, adult; R05.9 Cough, unspecified; R06.00 Dyspnea, unspecified; R91.8 Other nonspecific abnormal finding of lung field
CPT/HCPCS: 36415; 71045; 80048; 80053; 82271; 82274; 82962; 83735; 84100; 85014; 85018; 85025; 85610; 85730; 86850; 86900; 86901; 90937; 92526; 92610; 94668; 96365; 96366; 97110; 97162; 97166; 97530; 97535; 97802; 97803; 99283; 99285; J7030; J7120; A4216; G0257; J2405; J3490

== ENCOUNTER 2022-11-26 13:28 | Emergency (ER) | payer MEDICARE, SELFPAY ==
[2022-11-26 13:36] VITALS: BP 134/80; PULSE 96; RESP 18; TEMP 37.4; O2SAT 96; BMI 23.8
--- NOTE | 2022-11-26 15:13 | EDS_ITS ---
HPI History of Present Illness Chief Complaint: Abn Labs Detail of Chief Complaint: Patient sent in from [facility] for abnormal labs. Informant: patient and other (Sign ordained minister through iPad) Narrative Narrative: 57-year-old male who is deaf and has limited sign language ability. Using the iPad with [facility] environment friendly landscape designer we are attempting get history. Patient was sent in from extended-care facility for anemia. Rep ortedly has a history of CAD, CKD has a left chest wall Vas-Cath, he is deaf, diabetes and history of anemia. He denies feeling ill. Patient is a very limited informant. Prior similar symptoms: Yes Recent Illness/Hospitalization: No PFSH PFSH Medical History Acute renal failure Acute respiratory failure with hypoxia Anemia CAD (coronary artery disease) Chronic indwelling Lopez catheter CKD (chronic kidney disease) Congenital deafness Deaf Decreased left ventricular systolic function Diabetes Dialysis patient HTN (hypertension) Hyperlipidemia Hypertensive emergency Metabolic acidosis Non-ST elevated myocardial infarction (non-STEMI) NSTEMI (non-ST elevated myocardial infarction) On mechanically assisted ventilation Pneumonia Regurgitation of food Stroke Vision problem Vomiting Home Medications dorzolamide-timolol (PF) 2 %-0.5 % eye drops in a dropperette 1 drp ophthalmic (eye) BID eyes 01/04/20 [History Last Taken 11/16/22] latanoprost 0.005 % eye drops 1 drp ophthalmic (eye) DAILY eyes 01/04/20 [History Last Taken 11/16/22] amlodipine 5 mg tablet 5 mg feeding tube DAILY BP 09/14/22 [History Last Taken 11/16/22] ondansetron 4 mg disintegrating tablet 4 mg PO Q6H PRN nausea and vomiting #30 tabs 10/19/22 [Rx Last Taken 10/21/22] furosemide 40 mg tablet 40 mg feeding tube SuTuThSa hypertension 10/21/22 [History Last Taken 11/15/22] insulin lispro 100 unit/mL subcutaneous pen (Humalog KwikPen (U-100) Insulin) See Protocol subcut Q6H DM 10/21/22 [History Last Taken 11/15/22] isosorbide dinitrate 10 mg tablet 10 mg feeding tube BID CKD 10/21/22 [History Last Taken 11/16/22] polyethylene glycol 3350 17 gram oral powder packet 17 g PO BID PRN constipation #100 ea 10/27/22 [Rx Last Taken Unknown] atorvastatin 40 mg tablet 40 mg G-tube QHS cholesterol 10/31/22 [History Last Taken 11/15/22] carvedilol 25 mg tablet 25 mg G-tube BID blood pressure 10/31/22 [History Last Taken 11/15/22] hydralazine 50 mg tablet 50 mg G-tube TID hypertension 10/31/22 [History Last Taken 11/16/22] insulin glargine-yfgn 100 unit/mL (3 mL) subcutaneous pen 30 unit subcut 0600,1800 DM 10/31/22 [History Last Taken 11/14/22] lansoprazole 30 mg capsule,delayed release (Prevacid) 30 mg feeding tube BID gerd 10/31/22 [History Last Taken 11/16/22] menthol 0.44 %-zinc oxide 20.6 % topical ointment (Calmoseptine) 1 applic topical BID redness 10/31/22 [History Last Taken Unknown] metoclopramide HCl 10 mg tablet (Reglan) 10 mg PO TID nausea 10/31/22 [History Last Taken 11/16/22] fluconazole 40 mg/mL oral suspension 200 mg (5 mL) PO DAILY 10 days #0 mL 11/19/22 [Rx Last Taken Unknown] pantoprazole 40 mg tablet,delayed release 40 mg PO BID #0 tabs 11/19/22 [Rx Last Taken Unknown] Allergy/AdvReac Type Severity Reaction Status Date / Time No Known Allergies Allergy Verified 11/26/22 13:40 Family History Mother Diabetes Deaf Surgical History S/P percutaneous endoscopic gastrostomy (PEG) tube placement Social History housing: skilled nursing Smoking Status: Never smoker alcohol intake: never substance use type: does not use what type of physical activity do you participate in: none ROS ROS ED ROS Narrative Patient denies recent illness. Very limited informant due to being deaf and limited use of sign language. Review of Systems ROS Unobtainable: Denies due to encephalopathy Constitutional Constitutional ED: Denies chills or fever(s) Eyes Eyes: Denies blurry vision ENT ENT ED: Denies ear pain Cardiovascular Cardiovascular: Denies chest pain Respiratory/Chest Respiratory/Chest: Denies cough Gastrointestinal Gastrointestinal: Denies abdominal pain Genitourinary Genitourinary ED: Denies dysuria Musculoskeletal Musculoskeletal: Denies arthralgias Integumentary Denies abscess Neurologic Neurologic: Denies headache(s) Psychiatric Psychiatric: Denies anxiety Endocrine Endocrinology: Denies cold intolerance Hematologic/Lymphatic Hematologic/Lymphatic: Reports anemia Allergic/Immunologic Allergic/Immunologic ED: Denies mouth swelling or tongue swelling EXAM Physical Exam Narrative Exam Narrative: 57-year-old male vital signs are stable. Pulse ox 97% on room air no signs hypoxia. Temperature nine 9.4. He does not look septic or toxic. He is in no distress. H EENT exam unremarkable atraumatic. Moist with members. Neck nontender. Lungs clear to auscultation bilaterally. Heart regular rhythm rate about 95 no murmur. Chest wall nontender. Abdomen soft nontender. Moving all 4 extremities. Calves are nontender without edema or cords. He has a Lopez catheter in place. He also has a PEG tube in place. Back is nontender. Neurologically he is awake and alert. He answers questions through sign language. Follows commands. Moves all 4 extremities. Const Vital Signs: 11/26/22 13:36 11/26/22 13:42 11/26/22 15:26 Temperature 99.4 F H 100.1 F H Temperature Source Oral Oral Pulse Rate 96 98 Respiratory Rate 18 16 Respiratory Effort Normal Non-Labored Respiratory Pattern Normal Blood Pressure 134/80 H 144/63 H Blood Pressure Mean 98 90 Pulse Ox 96 96 Oxygen Delivery Method Room Air Room Air Positive well nourished and well developed; Negative for obese, cachectic, contractures or unkempt General Appearance ED: well developed and NAD; Negative for unkempt, cachectic, contractures, cyanotic or diaphoretic Nutritional Appearance: Negative for cachectic or obese HEENT Reports moist mucous membranes; Denies dry mucous membranes Negative for trauma or tenderness Mouth ED: No dry mucous membranes Mouth: No dry mucous membranes Eyes PERRL and EOMs intact bilaterally General Eye ED: Negative for pale conjunctiva or scleral icterus Neck no lymphadenopathy, supple and no JVD General: Negative for tenderness Chest Wall inspection of chest normal and palpation of chest normal Chest: Negative for other Resp normal respiratory effort and clear to auscultation bilaterally Effort and Inspection: Negative for retractions Auscultation: Negative for rales or rhonchi Cardio regular rate, regular rhythm, S1 normal heart sound, S2 normal heart sound and no murmurs Palpation: Negative for palpable S3 Rate: Negative for bradycardia Rhythm: Negative for abnormal rhythm GI normal to inspection, nondistended, normoactive bowel sounds, non-tender, non- distended and no masses Inspection: Negative for abdominal distention Palpation: soft; Negative for tender or guarding Back/Spine no CVA tenderness General Back: Negative for CVA tenderness Cervical Spine: Negative for cervical spine tenderness Thoracic Spine / Upper Back: Negative for thoracic spinal tenderness Lumbar Spine / Lower Back: Negative for lumbar spinal tenderness Extremity normal to inspection General Extremety ED: Negative for edema or tenderness General Extremity: Negative for edema Neuro Neuro Narrative: Patient signs his answers. He is a limited informant. He is moving all 4 extremities. He does answer questions. Sensorium / Orientation: alert Motor Exam: strength 5/5 throughout Psych mental status grossly normal Appearance: Negative for unkempt Skin no rashes or lesions noted and no wounds Lesions: No lesion noted Rashes: No rashes noted Trauma: Negative for abrasion Wounds: Negative for wounds noted MDM MDM MDM Narrative Medical decision making narrative: 57-year-old male with extensive past medical history and deafness. Limited informant. Sent in for abnormal labs. Screening labs are being obtained. He has been typed and screened because of hemoglobin was 6.8. Patient has no complaints. He was sent in for a hemoglobin of 6.8 which might be erroneous. Because a hemoglobin here 7.4 and he denies any bleeding. He will be discharged back to the extended care facility. These are his baseline labs. On repeat exam he is doing well at 4:47 PM. Lab Data Attestation: I reviewed the patient's lab results. Lab results narrative: CBC shows a white count of 4. H&H is 7.4 and 23.9 which is the patient's baseline chronic anemia. Platelets 242. PT INR and PTT are normal. Electrolytes show potassium of 3.1. A gap of 8. BUN of 34 and creatinine 4.4 and this is an end-stage renal disease patient. Liver enzymes are unremarkable. Lipase is 150. Labs: Laboratory Results - last 24 hr 11/26/22 11/26/22 11/26/22 15:20 15:20 15:20 WBC 4.0 L RBC 2.48 L Hgb 7.4 L Hct 23.9 L MCV 96.4 H MCH 29.8 MCHC 31.0 L RDW Std Deviation 48.0 H RDW Coeff of Jenifer 13.7 Plt Count 242 MPV 11.2 Immature Gran % (Auto) 0.300 Neut % (Auto) 67.6 Lymph % (Auto) 15.7 L Hettinger % (Auto) 13.6 H Eos % (Auto) 2.3 Baso % (Auto) 0.5 Absolute Neuts (auto) 2.7 Absolute Lymphs (auto) 0.62 L Nucleated RBC % 1.3 Differential Comment SCANNED PT 12.2 INR 0.9 APTT 34.5 Sodium 136 Potassium 3.1 L Chloride 96 L Carbon Dioxide 32.0 Anion Gap 8 BUN 34 H Creatinine 4.44 H Estim Creat Clear Calc 16.96 Est GFR (MDRD) Af Amer 18 L Est GFR (MDRD) Non-Af 15 L BUN/Creatinine Ratio 7.7 L Glucose 203 H Calcium 8.0 L Total Bilirubin 0.20 AST 27 ALT 19 Alkaline Phosphatase 66 Total Protein 6.2 L Albumin 1.3 L Globulin 4.9 H Albumin/Globulin Ratio 0.3 L Lipase 150 Blood Type Antibody Screen 11/26/22 15:20 WBC RBC Hgb Hct MCV MCH MCHC RDW Std Deviation RDW Coeff of Jenifer Plt Count MPV Immature Gran % (Auto) Neut % (Auto) Lymph % (Auto) Hettinger % (Auto) Eos % (Auto) Baso % (Auto) Absolute Neuts (auto) Absolute Lymphs (auto) Nucleated RBC % Differential Comment PT INR APTT Sodium Potassium Chloride Carbon Dioxide Anion Gap BUN Creatinine Estim Creat Clear Calc Est GFR (MDRD) Af Amer Est GFR (MDRD) Non-Af BUN/Creatinine Ratio Glucose Calcium Total Bilirubin AST ALT Alkaline Phosphatase Total Protein Albumin Globulin Albumin/Globulin Ratio Lipase Blood Type O POSITIVE Antibody Screen NEGATIVE Discharge Plan Triage Chief Complaint: Abn Labs ED Provider: Julio Finney Dx/Rx/DC Orders Clinical Impression: Anemia in chronic illness, End stage chronic kidney disease, Diabetes, History of GI bleed Instructions: Anemia Prescriptions: No Action latanoprost 0.005 % drops 1 drp OPHTHALMIC DAILY dorzolamide-timolol (PF) 2-0.5 % dropperette 1 drp OPHTHALMIC BID amlodipine 5 mg tablet 5 mg feeding tube DAILY ondansetron 4 mg tablet,disintegrating 4 mg PO Q6H PRN (Reason: nausea and vomiting) Qty: 30 0RF furosemide 40 mg tablet 40 mg feeding tube SuTuThSa isosorbide dinitrate 10 mg tablet 10 mg feeding tube BID insulin lispro [Humalog KwikPen Insulin] 100 unit/mL insulin pen See Protocol subcut Q6H Protocol: 4. Sliding Scale Insulin High-Med Dosing Condition: 150-199 mg/dl = 2 units Condition: 200-259 mg/dl = 4 units Condition: 260-324 mg/dl = 6 units Condition: 325-374 mg/dl = 8 units Condition: 375-409 mg/dl = 10 units Condition: 410-449 mg/dl = 11 units Condition: Greater than 449 call physician Protocol Text: - Use for Total Daily Dose of Insulin 56-80 units - Patient who are insulin resistant or septic HIGH MEDIUM DOSING ALGORITHM polyethylene glycol 3350 17 gram Powder In Packet 17 g PO BID PRN (Reason: constipation) Qty: 100 0RF atorvastatin 40 mg tablet 40 mg G-tube QHS carvedilol 25 mg tablet 25 mg G-tube BID lansoprazole [Prevacid] 30 mg capsule,delayed release(DR/EC) 30 mg feeding tube BID hydralazine 50 mg tablet 50 mg G-tube TID metoclopramide HCl [Reglan] 10 mg tablet 10 mg PO TID menthol-zinc oxide [Calmoseptine] 0.44-20.6 % ointment 1 applic topical BID Protocol: *Topical Application Instructions APPLICATION INSTRUCTIONS: Apply to coccyx Rx Instructions: apply to coccyx insulin glargine-yfgn 100 unit/mL (3 mL) insulin pen 30 unit subcut 0600,1800 fluconazole 40 mg/mL Suspension For Reconstitution 200 mg PO DAILY 10 Days Qty: 0 0RF pantoprazole 40 mg Tablet,Delayed Release (Dr/Ec) 40 mg PO BID Qty: 0 0RF Primary Care Provider: Marta Brooks Referrals: Marta Brooks, [facility] [Primary Care Provider] - 1 Week Activity Restrictions/Additional Instructions: Exam is unremarkable. His labs are his baseline. Our hemoglobin today was 7.4 I assume the 6.8 was erroneous. His blood counts typically run between 7 and 8 this is his baseline. Follow-up with his primary care provider. Disposition Disposition: Home, Self Care
[2022-11-26 15:26] VITALS: BP 144/63; PULSE 98; RESP 16; TEMP 37.8; O2SAT 96
[2022-11-26 15:29] VITALS: BP 148/65; PULSE 101; RESP 20
[2022-11-26 15:34] LABS: Absolute Lymphocyte Count 0.62 X10^3/uL (0.83-4.51); Absolute Neutrophil Count 2.7 X10^3/uL (2.0-7.7); Basophil# 0.02 X10^3/uL; Basophil% 0.5 % (0-1); Eosinophil# 0.09 X10^3/uL; Eosinophils% 2.3 % (0-5); Hematocrit 23.9 % (40-54); Hemoglobin 7.4 g/dL (13.0-16.5); Lymphocyte # 0.62 X10^3/ul (0.83-4.51); Lymphocyte % 15.7 % (19-41); Mean Corpuscular Hgb 29.8 pg (27.0-32.0); Mean Corpuscular Volume 96.4 fL (80-94); Mean Platelet Vol. 11.2 fl (6.2-12.0); Monocyte# 0.54 X10^3/uL; Monocyte% 13.6 % (0-10); NRBC Flagged by Analyzer 1.3 % (0-5); Neutrophil # 2.68 X10^3/uL (2.7-7.7); Neutrophil % 67.6 % (47-70); POSITIVE MORPHOLOGY YES; Platelet Count 242 K/mm3 (150-450); RBC Distribution Width CV 13.7 % (11.6-14.6); Red Blood Count 2.48 M/mm3 (4.6-6.2)
[2022-11-26 15:42] LABS: Differential Indicated SCAN CRITERIA MET
[2022-11-26 15:47] LABS: ALB/GLOB Ratio 0.3 RATIO (0.9-2.4); AST(SGOT) 27 U/L (15-37); Alanine Aminotransfer ALT/SGPT 19 U/L (16-61); Albumin, Serum 1.3 g/dL (3.2-5.0); Alkaline Phosphatase 66 U/L (45-117); Anion Gap 8 (5-15); BUN 34 mg/dL (7-18); BUN/Creat Ratio 7.7 RATIO (10-20); Chloride 96 mmol/L (98-107); Creatinine, Serum 4.44 mg/dL (0.70-1.30); EST Glomerular Filtration Rate 15 mL/min (>60); Est Glom Filt Rate - Afr Amer 18 mL/min (>60); Estimated Creatinine Clearance 16.96 ml/min; Globulin 4.9 g/dL (2.2-4.2); Glucose 203 mg/dL (74-106); Lipase 150 U/L (73-393); Potassium 3.1 mmol/L (3.5-5.1); Protein, Total 6.2 g/dL (6.4-8.2); Sodium Level 136 mmol/L (136-145)
[2022-11-26 15:54] LABS: Differential Comment SCANNED
[2022-11-26 15:57] LABS: International Normalized Ratio 0.9; Prothrombin Time (Protime)PT. 12.2 SECONDS (11.7-14.9)
[2022-11-26 15:58] LABS: Partial Thromboplast Time 34.5 Seconds (24.1-36.2)
[2022-11-26 17:00] VITALS: BP 136/78; PULSE 102; RESP 22
[2022-11-26 18:34] VITALS: BP 152/68; PULSE 102; RESP 18; O2SAT 96
--- NOTE | 2022-11-26 19:00 | ED.RN ---
REPORT CALLED TO [facility]
== END 2022-11-26 19:00 | disposition home or self-care (01) ==
PROVIDERS: Emergency Provider Emergency Medicine; PCP Nurse Practitioner Family; Visit Provider Emergency Medicine
DX: E11.22 Type 2 diabetes mellitus with diabetic chronic kidney disease (principal); Z93.1 Gastrostomy status; I12.0 Hypertensive chronic kidney disease with stage 5 chronic kidney disease or end stage renal disease; N18.6 End stage renal disease; I25.10 Atherosclerotic heart disease of native coronary artery without angina pectoris; D63.8 Anemia in other chronic diseases classified elsewhere; E78.5 Hyperlipidemia, unspecified; H91.90 Unspecified hearing loss, unspecified ear; Z87.19 Personal history of other diseases of the digestive system; Z95.828 Presence of other vascular implants and grafts
CPT/HCPCS: 96366; 99285; 96365; 80053; 83690; 85025; 85610; 85730; 86850; 86900; 86901; A4216

== ENCOUNTER 2022-11-28 11:48 | Inpatient (IN) | payer MEDICARE, SELFPAY ==
[2022-11-28] VITALS (18 sets, daily range): BP systolic 99–113; BP diastolic 52–75; PULSE 67–90; RESP 14–29; TEMP 36.4–37.5; O2SAT 95–100; BMI 22.5
[2022-11-28 12:15] LABS: Bedside Glucose 307 mg/dL (74-106)
--- NOTE | 2022-11-28 12:24 | EKG12_ITS ---
Test Reason : GENERAL Blood Pressure : / mmHG Vent. Rate : 069 BPM Atrial Rate : 069 BPM P-R Int : 152 ms QRS Dur : 104 ms QT Int : 472 ms P-R-T Axes : 072 070 055 degrees QTc Int : 505 ms Normal sinus rhythm Prolonged QT Abnormal ECG Confirmed by AMRITA HERMOSILLO, MYRA ([id number]), offline editor EMMANUEL NEWMAN ([id number]) on 11/30/2022 2:00:49 PM Referred By: Confirmed By:MYRA CROWE MD
--- NOTE | 2022-11-28 12:25 | EDS_ITS ---
HPI History of Present Illness Chief Complaint: General Illness Informant: patient, EMS and SNF Onset/Context/Timing Onset: Today Narrative Narrative: 57-year-old male complex past medical history. Patient is deaf and has limited sign language capabilities. Also history of CAD, UT, end-stage renal disease with a left chest Vas-Cath and diabetes. Currently residing in [facility]. He has been seen here multiple times over the last 30 days. Recently he had a swallowing study that was abnormal. Nurse is concerned that he has Rales on her exam at the extended care facility and they think he may have aspirated. Reportedly had a pulse ox today of 90%. Patient is an extremely limited informant. I have asked to care for this patient before using the medical interpreter iPad with a person that does sign language really is of limited benefit with this patient. Prior similar symptoms: No Recent Illness/Hospitalization: Yes PFSH PFS Medical History Acute renal failure Acute respiratory failure with hypoxia Anemia CAD (coronary artery disease) Chronic indwelling Lopez catheter CKD (chronic kidney disease) Congenital deafness Deaf Decreased left ventricular systolic function Diabetes Dialysis patient HTN (hypertension) Hyperlipidemia Hypertensive emergency Metabolic acidosis Non-ST elevated myocardial infarction (non-STEMI) NSTEMI (non-ST elevated myocardial infarction) On mechanically assisted ventilation Pneumonia Regurgitation of food Stroke Vision problem Vomiting Home Medications dorzolamide-timolol (PF) 2 %-0.5 % eye drops in a dropperette 1 drp ophthalmic (eye) BID eyes 01/04/20 [History Last Taken 11/16/22] latanoprost 0.005 % eye drops 1 drp ophthalmic (eye) DAILY eyes 01/04/20 [History Last Taken 11/16/22] amlodipine 5 mg tablet 5 mg feeding tube DAILY BP 09/14/22 [History Last Taken 11/16/22] ondansetron 4 mg disintegrating tablet 4 mg PO Q6H PRN nausea and vomiting #30 tabs 10/19/22 [Rx Last Taken 10/21/22] furosemide 40 mg tablet 40 mg feeding tube SuTuThSa hypertension 10/21/22 [History Last Taken 11/15/22] insulin lispro 100 unit/mL subcutaneous pen (Humalog KwikPen (U-100) Insulin) See Protocol subcut Q6H DM 10/21/22 [History Last Taken 11/15/22] isosorbide dinitrate 10 mg tablet 10 mg feeding tube BID CKD 10/21/22 [History Last Taken 11/16/22] polyethylene glycol 3350 17 gram oral powder packet 17 g PO BID PRN constipation #100 ea 10/27/22 [Rx Last Taken Unknown] atorvastatin 40 mg tablet 40 mg G-tube QHS cholesterol 10/31/22 [History Last Taken 11/15/22] carvedilol 25 mg tablet 25 mg G-tube BID blood pressure 10/31/22 [History Last Taken 11/15/22] hydralazine 50 mg tablet 50 mg G-tube TID hypertension 10/31/22 [History Last Taken 11/16/22] insulin glargine-yfgn 100 unit/mL (3 mL) subcutaneous pen 30 unit subcut 0600,1800 DM 10/31/22 [History Last Taken 11/14/22] lansoprazole 30 mg capsule,delayed release (Prevacid) 30 mg feeding tube BID gerd 10/31/22 [History Last Taken 11/16/22] menthol 0.44 %-zinc oxide 20.6 % topical ointment (Calmoseptine) 1 applic topical BID redness 10/31/22 [History Last Taken Unknown] metoclopramide HCl 10 mg tablet (Reglan) 10 mg PO TID nausea 10/31/22 [History Last Taken 11/16/22] fluconazole 40 mg/mL oral suspension 200 mg (5 mL) PO DAILY 10 days #0 mL 11/19/22 [Rx Last Taken Unknown] pantoprazole 40 mg tablet,delayed release 40 mg PO BID #0 tabs 11/19/22 [Rx Last Taken Unknown] Allergy/AdvReac Type Severity Reaction Status Date / Time No Known Allergies Allergy Verified 11/28/22 11:55 Family History Mother Diabetes Deaf Surgical History S/P percutaneous endoscopic gastrostomy (PEG) tube placement Social History housing: [facility] Smoking Status: Never smoker alcohol intake: never substance use type: does not use what type of physical activity do you participate in: none ROS ROS ED ROS Narrative Unable to obtain at this time. Review of Systems ROS Unobtainable: other Details: Very difficult to communicate with the patient due to him being deaf and limited sign language capabilities. EXAM Physical Exam Narrative Exam Narrative: 57-year-old male looks older than his stated age. Vital signs are stable his blood pressure is lower than his baseline at currently at 99/52. On 2 L he is 97% pulse ox. No hypoxia on oxygen. H EENT exam unremarkable. Mildly dry mucous membranes. Neck nontender. No lymphadenopathy. Lungs diminished bilaterally. No rales, rhonchi or wheezing. Heart regular rhythm rate about 75. Chest wall nontender. Abdomen soft nontender moving all 4 extremities. He has a Vas-Cath on his left chest wall. Neurologically his eyes are open. Currently he is following limited commands. He seems subdued. Const Vital Signs: 11/28/22 11:50 11/28/22 11:54 11/28/22 11:55 Temperature 98.0 F 98.0 F Temperature Source Axillary Axillary Pulse Rate 87 75 Respiratory Rate 20 H 26 H Respiratory Effort Normal Non-Labored Respiratory Pattern Tachypnea Blood Pressure 99/52 L 99/52 L Blood Pressure Mean 67 67 Pulse Ox 97 96 Oxygen Delivery Method Nasal Cannula Nasal Cannula Oxygen Flow Rate (L/min) 2 2 11/28/22 12:35 11/28/22 13:03 11/28/22 12:30 Temperature 97.8 F Temperature Source Axillary Pulse Rate 73 74 Respiratory Rate 28 H 28 H Respiratory Effort Respiratory Pattern Blood Pressure 113/59 L 99/59 L Blood Pressure Mean 77 72 Pulse Ox 98 100 97 Oxygen Delivery Method Nasal Cannula Nasal Cannula Nasal Cannula Oxygen Flow Rate (L/min) 1 1 1 11/28/22 12:45 11/28/22 13:00 11/28/22 13:15 Temperature Temperature Source Pulse Rate 72 74 71 Respiratory Rate 22 H 26 H 27 H Respiratory Effort Respiratory Pattern Blood Pressure 107/59 L 113/59 L 103/57 L Blood Pressure Mean 75 77 72 Pulse Ox 96 100 100 Oxygen Delivery Method Nasal Cannula Nasal Cannula Nasal Cannula Oxygen Flow Rate (L/min) 1 1 1 11/28/22 13:30 11/28/22 13:51 11/28/22 14:08 Temperature 97.5 F L Temperature Source Axillary Pulse Rate 71 71 67 Respiratory Rate 28 H 27 H 27 H Respiratory Effort Respiratory Pattern Blood Pressure 100/54 L 105/58 L 108/60 Blood Pressure Mean 69 73 76 Pulse Ox 98 97 95 Oxygen Delivery Method Nasal Cannula Nasal Cannula Room Air Oxygen Flow Rate (L/min) 1 1 11/28/22 15:04 11/28/22 15:04 11/28/22 15:35 Temperature 97.6 F L 97.6 F L Temperature Source Axillary Axillary Pulse Rate 73 73 78 Respiratory Rate 29 H 29 H 28 H Respiratory Effort Respiratory Pattern Blood Pressure 106/57 L 106/57 L 110/64 Blood Pressure Mean 73 73 79 Pulse Ox 95 95 96 Oxygen Delivery Method Room Air Room Air Room Air Oxygen Flow Rate (L/min) Positive well nourished and well developed; Negative for obese, cachectic, contractures or unkempt General Appearance ED: well developed; Negative for unkempt, cachectic, contractures, cyanotic or diaphoretic Nutritional Appearance: Negative for cachectic or obese HEENT Reports dry mucous membranes Negative for trauma or tenderness Mouth ED: Yes dry mucous membranes Mouth: dry mucous membranes Eyes PERRL and EOMs intact bilaterally General Eye ED: Negative for pale conjunctiva or scleral icterus Neck no lymphadenopathy, supple and no JVD General: Negative for tenderness Lymph Lymphatic: Negative for other Chest Wall inspection of chest normal and palpation of chest normal Resp normal respiratory effort and clear to auscultation bilaterally Effort and Inspection: Negative for retractions Auscultation: Negative for rales, rhonchi or wheezes Cardio regular rate, regular rhythm, S1 normal heart sound, S2 normal heart sound and no murmurs GI normal to inspection, nondistended, normoactive bowel sounds, non-tender, non- distended and no masses Inspection: Negative for abdominal distention Auscultation: normoactive bowel sounds Palpation: soft; Negative for tender or guarding Extremity normal to inspection General Extremety ED: Negative for edema or tenderness General Extremity: Negative for edema Neuro Neuro Narrative: Patient is deaf and very difficult to communicate with. Sensorium / Orientation: alert Psych Appearance: Negative for unkempt Skin no rashes or lesions noted and no wounds Lesions: No lesion noted Rashes: No rashes noted Trauma: Negative for abrasion Wounds: Negative for wounds noted MDM MDM MDM Narrative Medical decision making narrative: 57-year-old male from a local extended care facility sent in for possible Rales and/or aspiration. Patient been seen here frequently over the last 30 days. Very challenging to communicate with the patient due to him being deaf and limited sign language capabilities. His blood pressure is lower than his normal and the concern is that he may have aspirated the [facility] will be placed in a sepsis protocol. He is given IV fluid bolus. His exam is actually pretty benign. Currently his pressure is 99/52. He is afebrile. Multiple repeat exams patient's pressure. With the saline bolus. He is resting comfortably. His hemoglobin is 6.8 hours pending. He reportedly has had a recent GI bleed that he had endoscopy 4. Given that he has a cardiac patient is a dialysis patient he will need transfusion to bring his hemoglobin up. He has been typed and crossed. Been written for transfusion of 2 units. I do not have any specific cause for his hypoxia. He is not hypoxic here. His chest x-ray shows no pneumonia, aspiration or effusion. I have discussed the patient's care with our hospitalist. She will admit him to the PCU. Currently he is stable at 4 PM. Lab Data Attestation: I reviewed the patient's lab results. Lab results narrative: CBC shows a white count of 3.9. Hemoglobin 6.8 which is around the patient's baseline. Hematocrit 21.8. He runs a chronic anemia due to his end-stage renal disease. PT/INR PTT are 12, 1 and 38. Labs: Laboratory Results - last 24 hr 11/28/22 11/28/22 11/28/22 11:58 12:36 12:36 WBC 3.9 L RBC 2.29 L Hgb 6.8 L Hct 21.8 L MCV 95.2 H MCH 29.7 MCHC 31.2 L RDW Std Deviation 47.1 H RDW Coeff of Jenifer 13.7 Plt Count 313 MPV 10.6 Immature Gran % (Auto) 0.500 Neut % (Auto) 63.5 Lymph % (Auto) 16.8 L [place] % (Auto) 17.6 H Eos % (Auto) 0.8 Baso % (Auto) 0.8 Absolute Neuts (auto) 2.5 Absolute Lymphs (auto) 0.65 L Nucleated RBC % 0 Differential Comment PT 12.8 INR 1.0 APTT 38.9 H Sodium Potassium Chloride Carbon Dioxide Anion Gap BUN Creatinine Estim Creat Clear Calc Est GFR (MDRD) Af Amer Est GFR (MDRD) Non-Af BUN/Creatinine Ratio Glucose Lactic Acid Calcium Total Bilirubin AST ALT Alkaline Phosphatase Total Protein Albumin Globulin Albumin/Globulin Ratio Urine Color Urine Clarity Urine pH Ur Specific [place] Urine Protein Urine Glucose (UA) Urine Ketones Urine Occult Blood Urine Nitrite Urine Bilirubin Urine Urobilinogen Ur Leukocyte Esterase Urine RBC Urine WBC Ur Squamous Epith Cells Urine Bacteria Urine Mucus Urine Yeast POC Glucose 307 H 11/28/22 11/28/22 11/28/22 12:36 12:36 13:27 WBC RBC Hgb Hct MCV MCH MCHC RDW Std Deviation RDW Coeff of Jenifer Plt Count MPV Immature Gran % (Auto) Neut % (Auto) Lymph % (Auto) [place] % (Auto) Eos % (Auto) Baso % (Auto) Absolute Neuts (auto) Absolute Lymphs (auto) Nucleated RBC % Differential Comment PT INR APTT Sodium 130 L Potassium 3.8 Chloride 92 L Carbon Dioxide 29.0 Anion Gap 9 BUN 34 H Creatinine 4.19 H Estim Creat Clear Calc 17.75 Est GFR (MDRD) Af Amer 19 L Est GFR (MDRD) Non-Af 16 L BUN/Creatinine Ratio 8.1 L Glucose 314 H Lactic Acid 1.1 Calcium 7.6 L Total Bilirubin 0.20 AST 49 H ALT 26 Alkaline Phosphatase 109 Total Protein 5.3 L Albumin 1.1 L Globulin 4.2 Albumin/Globulin Ratio 0.3 L Urine Color Yellow Urine Clarity Cloudy Urine pH 5.0 Ur Specific [place] 1.015 Urine Protein 500 H Urine Glucose (UA) 250 H Urine Ketones Negative Urine Occult Blood 150 H Urine Nitrite Negative Urine Bilirubin Negative Urine Urobilinogen Normal Ur Leukocyte Esterase 500 H Urine RBC 0-5 SEEN Urine WBC 25-50 SEEN Ur Squamous Epith Cells 0 SEEN Urine Bacteria 2+ Urine Mucus 0 SEEN Urine Yeast 2+ POC Glucose Radiography Chest X-Ray - ED: 1 View, Read by ED Physician, Read by Radiologist, Normal, Heart, Lungs, Mediastinum, Bony Structures, No Acute Disease and Chronic Changes Diagnostic Testing: Clinical Impression(s) from Imaging Studies Chest X-Ray 11/28/22 12:40 IMPRESSION: No acute cardiopulmonary abnormality. No interval change. Electronically Signed: Elijah Sibley MD at 13:18 EST , Chest x-ray, portable, single view, interpreted both by myself and the radiologist shows no acute abnormality. Normal cardiac silhouette. No infiltrates. No effusions. Left Vas-Cath in place. Rhythm Strip Rhythm Strip: Sinus Rhythm Rate: 69 Ectopy: None EKG Initial EKG: Attestation: I personally reviewed and interpreted this EKG as follows: Interpretation: Sinus Rhythm and No Acute Injury Pattern Comments: Normal sinus rhythm rate is 69 no acute signs of UT or ischemia. Unchanged from EKG last month. Prior EKG tracings: available for review Prior: Unchanged Discharge Plan Triage Chief Complaint: General Illness ED Provider: Julio Finney Dx/Rx/DC Orders Clinical Impression: Anemia, History of GI bleed, Transfusion history, History of end stage renal disease, History of coronary artery disease, History of diabetes mellitus Prescriptions: No Action latanoprost 0.005 % drops 1 drp OPHTHALMIC DAILY dorzolamide-timolol (PF) 2-0.5 % dropperette 1 drp OPHTHALMIC BID amlodipine 5 mg tablet 5 mg feeding tube DAILY ondansetron 4 mg tablet,disintegrating 4 mg PO Q6H PRN (Reason: nausea and vomiting) Qty: 30 0RF furosemide 40 mg tablet 40 mg feeding tube SuTuThSa isosorbide dinitrate 10 mg tablet 10 mg feeding tube BID insulin lispro [Humalog KwikPen Insulin] 100 unit/mL insulin pen See Protocol subcut Q6H Protocol: 4. Sliding Scale Insulin High-Med Dosing Condition: 150-199 mg/dl = 2 units Condition: 200-259 mg/dl = 4 units Condition: 260-324 mg/dl = 6 units Condition: 325-374 mg/dl = 8 units Condition: 375-409 mg/dl = 10 units Condition: 410-449 mg/dl = 11 units Condition: Greater than 449 call physician Protocol Text: - Use for Total Daily Dose of Insulin 56-80 units - Patient who are insulin resistant or septic HIGH MEDIUM DOSING ALGORITHM polyethylene glycol 3350 17 gram Powder In Packet 17 g PO BID PRN (Reason: constipation) Qty: 100 0RF atorvastatin 40 mg tablet 40 mg G-tube QHS carvedilol 25 mg tablet 25 mg G-tube BID lansoprazole [Prevacid] 30 mg capsule,delayed release(DR/EC) 30 mg feeding tube BID hydralazine 50 mg tablet 50 mg G-tube TID metoclopramide HCl [Reglan] 10 mg tablet 10 mg PO TID menthol-zinc oxide [Calmoseptine] 0.44-20.6 % ointment 1 applic topical BID Protocol: *Topical Application Instructions APPLICATION INSTRUCTIONS: Apply to coccyx Rx Instructions: apply to coccyx insulin glargine-yfgn 100 unit/mL (3 mL) insulin pen 30 unit subcut 0600,1800 fluconazole 40 mg/mL Suspension For Reconstitution 200 mg PO DAILY 10 Days Qty: 0 0RF pantoprazole 40 mg Tablet,Delayed Release (Dr/Ec) 40 mg PO BID Qty: 0 0RF Primary Care Provider: Marta Brooks Referrals: Marta Brooks, RECRUITMENT SPECIALIST-C [Primary Care Provider] - Disposition Disposition: Acute Care Hospital [facility] [place] [facility]
--- NOTE | 2022-11-28 12:40 | RAD_ITS ---
EXAM: XR CHEST, 1 VIEW CLINICAL INDICATION: dyspnea TECHNIQUE: Frontal view of the chest. This report was created using [employer] report generation technology. COMPARISON: XR Chest dated 11/14/2022 FINDINGS: LUNGS AND PLEURAL SPACES: Normal. No consolidation or edema. No pneumothorax. No effusion. HEART: Normal heart size. MEDIASTINUM: No mediastinal or hilar mass. BONES/JOINTS: No acute abnormality. SOFT TISSUES: Normal. TUBES, LINES AND DEVICES: Left IJ dialysis catheter remains in place. RAD/Chest 1 View (Portable) IMPRESSION: No acute cardiopulmonary abnormality. No interval change. Electronically Signed: Elijah Sibley MD at 13:18 EST ,
[2022-11-28 12:45] LABS: Absolute Lymphocyte Count 0.65 X10^3/uL (0.83-4.51); Absolute Neutrophil Count 2.5 X10^3/uL (2.0-7.7); Basophil# 0.03 X10^3/uL; Basophil% 0.8 % (0-1); Eosinophil# 0.03 X10^3/uL; Eosinophils% 0.8 % (0-5); Hematocrit 21.8 % (40-54); Hemoglobin 6.8 g/dL (13.0-16.5); Lymphocyte # 0.65 X10^3/ul (0.83-4.51); Lymphocyte % 16.8 % (19-41); Mean Corp Hgb Conc 31.2 g/dL (32-36); Mean Corpuscular Hgb 29.7 pg (27.0-32.0); Mean Corpuscular Volume 95.2 fL (80-94); Mean Platelet Vol. 10.6 fl (6.2-12.0); Monocyte# 0.68 X10^3/uL; Monocyte% 17.6 % (0-10); NRBC Flagged by Analyzer 0 % (0-5); Neutrophil # 2.46 X10^3/uL (2.7-7.7); Neutrophil % 63.5 % (47-70); POSITIVE MORPHOLOGY YES; Platelet Count 313 K/mm3 (150-450); RBC Distribution Width CV 13.7 % (11.6-14.6); RBC Distribution Width SD 47.1 fl (35.1-43.9); Red Blood Count 2.29 M/mm3 (4.6-6.2); White Blood Count 3.9 K/mm3 (4.4-11.0)
[2022-11-28 12:46] LABS: Differential Indicated SCAN CRITERIA MET
[2022-11-28 12:54] LABS: Prothrombin Time (Protime)PT. 12.8 SECONDS (11.7-14.9)
[2022-11-28 12:55] LABS: Partial Thromboplast Time 38.9 Seconds (24.1-36.2)
[2022-11-28 13:02] LABS: ALB/GLOB Ratio 0.3 RATIO (0.9-2.4); AST(SGOT) 49 U/L (15-37); Alanine Aminotransfer ALT/SGPT 26 U/L (16-61); Albumin, Serum 1.1 g/dL (3.2-5.0); Alkaline Phosphatase 109 U/L (45-117); Anion Gap 9 (5-15); BUN 34 mg/dL (7-18); BUN/Creat Ratio 8.1 RATIO (10-20); Calcium,Total 7.6 mg/dL (8.5-10.1); Chloride 92 mmol/L (98-107); Creatinine, Serum 4.19 mg/dL (0.70-1.30); EST Glomerular Filtration Rate 16 mL/min (>60); Est Glom Filt Rate - Afr Amer 19 mL/min (>60); Estimated Creatinine Clearance 17.75 ml/min; Globulin 4.2 g/dL (2.2-4.2); Glucose 314 mg/dL (74-106); Potassium 3.8 mmol/L (3.5-5.1); Protein, Total 5.3 g/dL (6.4-8.2); Sodium Level 130 mmol/L (136-145)
[2022-11-28 13:08] LABS: Lactic Acid 1.1 mmol/L (0.4-1.9)
[2022-11-28 13:31] LABS: Mucous, Urine 0 SEEN /hpf (<or=2+); Squamous Epithelial Cells - UA 0 SEEN /hpf (0-5)
[2022-11-28 13:34] LABS: Color, Urine Yellow (Yellow); Glucose, Dipstick 250 mg/dl (Normal); Ketone-Dipstick Negative (Negative); Leukocyte Esterase-Dipstick 500 /ul (Negative); Nitrite-Dipstick Negative (Negative); Occult Blood-Urine 150 /ul (Negative); Protein-Dipstick 500 mg/dl (Negative); Specific Gravity, Urine 1.015 (1.002-1.030); Urine Bilirubin Dipstick Negative (Negative); Urine Clarity Cloudy (Clear); Urine Urobilinogen Normal (Normal)
[2022-11-28 13:35] LABS: White Blood Cells 25-50 SEEN /hpf (0-5); Yeast-Urine 2+ /hpf (None Seen)
[2022-11-28 13:36] LABS: Bacteria 2+ /hpf (None Seen); Red Blood Cells-Urine 0-5 SEEN /hpf (0-5)
--- NOTE | 2022-11-28 16:08 | HP.PCM.HOS_ITS ---
HPI - General General Date of Admission: 11/28/22 Date of Service: 11/28/22 Chief Complaint: Shortness of breath, hypoxia HPI Narrative SCOTT BUTLER, is a 57 M who presents with above. Patient is deaf and communicates via whiteboard. He has past medical history of congenital deafness and congenita; blindness, ESRD on hemodialysis, recently discharged on 11/20/2022 for acute recurrent GI bleed secondary to bleeding esophageal ulcer, s/p EGD on 11/18 type I DM, hypertension. This is patient's second ED visit since his discharge on 11/20/22 Per review of retirement records, patient had an explosive diarrhea. He recently had a swallow eval by speech therapy. Nurses in the retirement had concerns that he probably aspirated. He was found to be hypotensive and given IV fluids. Vitals in the ED showed blood pressure of 99/52, heart rate 87, respiratory rate 20, temperature 98.0 F, but when he sat 97% on 2 L of oxygen, later improved to 95% on room air. Admitting blood work showed WBC 3.9, hemoglobin 6.8, previous hemoglobin at discharge was 8.6, platelet count 313. INR is 1.0, sodium is 130, previous sodium was 136. Potassium 3.8, chloride 92, bicarb 29, BUN 34, creatinine 4.19, glucose 314, albumin is 1.1. UA is cloudy, nitrite negative, ketones negative, leukocyte esterase 500, WBC 25-50, 2+ bacteria Admitting chest x-ray is unremarkable. [facility] [place] Medical History Acute renal failure Acute respiratory failure with hypoxia Anemia CAD (coronary artery disease) Chronic indwelling Lopez catheter CKD (chronic kidney disease) Congenital deafness Deaf Decreased left ventricular systolic function Diabetes Dialysis patient HTN (hypertension) Hyperlipidemia Hypertensive emergency Metabolic acidosis Non-ST elevated myocardial infarction (non-STEMI) NSTEMI (non-ST elevated myocardial infarction) On mechanically assisted ventilation Pneumonia Regurgitation of food Stroke Vision problem Vomiting Home Medications dorzolamide-timolol (PF) 2 %-0.5 % eye drops in a dropperette 1 drp ophthalmic (eye) BID eyes 01/04/20 [History Last Taken 11/16/22] latanoprost 0.005 % eye drops 1 drp ophthalmic (eye) DAILY eyes 01/04/20 [History Last Taken 11/16/22] amlodipine 5 mg tablet 5 mg feeding tube DAILY BP 09/14/22 [History Last Taken 11/16/22] ondansetron 4 mg disintegrating tablet 4 mg PO Q6H PRN nausea and vomiting #30 tabs 10/19/22 [Rx Last Taken 10/21/22] furosemide 40 mg tablet 40 mg feeding tube SuTuThSa hypertension 10/21/22 [History Last Taken 11/15/22] insulin lispro 100 unit/mL subcutaneous pen (Humalog KwikPen (U-100) Insulin) See Protocol subcut Q6H DM 10/21/22 [History Last Taken 11/15/22] isosorbide dinitrate 10 mg tablet 10 mg feeding tube BID CKD 10/21/22 [History Last Taken 11/16/22] polyethylene glycol 3350 17 gram oral powder packet 17 g PO BID PRN constipation #100 ea 10/27/22 [Rx Last Taken Unknown] atorvastatin 40 mg tablet 40 mg G-tube QHS cholesterol 10/31/22 [History Last Taken 11/15/22] carvedilol 25 mg tablet 25 mg G-tube BID blood pressure 10/31/22 [History Last Taken 11/15/22] hydralazine 50 mg tablet 50 mg G-tube TID hypertension 10/31/22 [History Last Taken 11/16/22] insulin glargine-yfgn 100 unit/mL (3 mL) subcutaneous pen 30 unit subcut 0600,1800 DM 10/31/22 [History Last Taken 11/14/22] menthol 0.44 %-zinc oxide 20.6 % topical ointment (Calmoseptine) 1 applic topical BID redness 10/31/22 [History Last Taken Unknown] metoclopramide HCl 10 mg tablet (Reglan) 10 mg PO TID nausea 10/31/22 [History Last Taken 11/16/22] fluconazole 40 mg/mL oral suspension 200 mg PO DAILY FUNGAL INFEFCTION 11/28/22 [History Last Taken Unknown] pantoprazole 40 mg tablet,delayed release 40 mg PO BID GERD 11/28/22 [History Last Taken Unknown] Allergy/AdvReac Type Severity Reaction Status Date / Time No Known Allergies Allergy Verified 11/28/22 11:55 Family History Mother Diabetes Deaf Surgical History S/P percutaneous endoscopic gastrostomy (PEG) tube placement Social History housing: retirement Smoking Status: Never smoker alcohol intake: never substance use type: does not use what type of physical activity do you participate in: none ROS Review of Systems ROS Unobtainable: due to encephalopathy Vital Signs Vital Signs Vital Signs: 11/28/22 11:50 11/28/22 11:54 11/28/22 11:55 Temperature 98.0 F 98.0 F Temperature Source Axillary Axillary Pulse Rate 87 75 Respiratory Rate 20 H 26 H Respiratory Effort Normal Non-Labored Respiratory Pattern Tachypnea Blood Pressure 99/52 L 99/52 L Blood Pressure Mean 67 67 Pulse Ox 97 96 Oxygen Delivery Method Nasal Cannula Nasal Cannula Oxygen Flow Rate (L/min) 2 2 11/28/22 12:35 11/28/22 13:03 11/28/22 12:30 Temperature 97.8 F Temperature Source Axillary Pulse Rate 73 74 Respiratory Rate 28 H 28 H Respiratory Effort Respiratory Pattern Blood Pressure 113/59 L 99/59 L Blood Pressure Mean 77 72 Pulse Ox 98 100 97 Oxygen Delivery Method Nasal Cannula Nasal Cannula Nasal Cannula Oxygen Flow Rate (L/min) 1 1 1 11/28/22 12:45 11/28/22 13:00 11/28/22 13:15 Temperature Temperature Source Pulse Rate 72 74 71 Respiratory Rate 22 H 26 H 27 H Respiratory Effort Respiratory Pattern Blood Pressure 107/59 L 113/59 L 103/57 L Blood Pressure Mean 75 77 72 Pulse Ox 96 100 100 Oxygen Delivery Method Nasal Cannula Nasal Cannula Nasal Cannula Oxygen Flow Rate (L/min) 1 1 1 11/28/22 13:30 11/28/22 13:51 11/28/22 14:08 Temperature 97.5 F L Temperature Source Axillary Pulse Rate 71 71 67 Respiratory Rate 28 H 27 H 27 H Respiratory Effort Respiratory Pattern Blood Pressure 100/54 L 105/58 L 108/60 Blood Pressure Mean 69 73 76 Pulse Ox 98 97 95 Oxygen Delivery Method Nasal Cannula Nasal Cannula Room Air Oxygen Flow Rate (L/min) 1 1 11/28/22 15:04 11/28/22 15:04 11/28/22 15:35 Temperature 97.6 F L 97.6 F L Temperature Source Axillary Axillary Pulse Rate 73 73 78 Respiratory Rate 29 H 29 H 28 H Respiratory Effort Respiratory Pattern Blood Pressure 106/57 L 106/57 L 110/64 Blood Pressure Mean 73 73 79 Pulse Ox 95 95 96 Oxygen Delivery Method Room Air Room Air Room Air Oxygen Flow Rate (L/min) Weight Weight: 65.3 kg Body Mass Index (BMI) 22.5 Physical Exam Narrative Physical exam: General: Alert, deaf, cooperative, pale, severe protein calorie malnutrition HEENT: Atraumatic Oral: Moist Mucosa Neck: Supple Lungs: Clear to auscultation Cardiovascular: HS I+II, regular, no murmurs Abdomen: PEG tube in situ, bowel Sounds Present, Soft, Non Tender Extremities: No edema Skin: No rashes, No breakdown Neurological: Grossly intact Psych/Mental Status: Appropriate Results Lab / Micro Data Result Diagrams: 11/28/22 18:09 11/28/22 12:36 Labs: Laboratory Results - last 24 hr 11/28/22 11:58: POC Glucose 307 H 11/28/22 12:36: WBC 3.9 L, RBC 2.29 L, Hgb 6.8 L, Hct 21.8 L, MCV 95.2 H, MCH 29.7, MCHC 31.2 L, RDW Std Deviation 47.1 H, RDW Coeff of Jenifer 13.7, Plt Count 313, MPV 10.6, Immature Gran % (Auto) 0.500, Neut % (Auto) 63.5, Lymph % (Auto) 16.8 L, [place] % (Auto) 17.6 H, Eos % (Auto) 0.8, Baso % (Auto) 0.8, Absolute Neuts (auto) 2.5, Absolute Lymphs (auto) 0.65 L, Nucleated RBC % 0, Differential Comment 11/28/22 12:36: PT 12.8, INR 1.0, APTT 38.9 H 11/28/22 12:36: Sodium 130 L, Potassium 3.8, Chloride 92 L, Carbon Dioxide 29.0, Anion Gap 9, BUN 34 H, Creatinine 4.19 H, Estim Creat Clear Calc 17.75, Est GFR (MDRD) Af Amer 19 L, Est GFR (MDRD) Non-Af 16 L, BUN/Creatinine Ratio 8.1 L, Glucose 314 H, Calcium 7.6 L, Total Bilirubin 0.20, AST 49 H, ALT 26, Alkaline Phosphatase 109, Total Protein 5.3 L, Albumin 1.1 L, Globulin 4.2, Albumin/Gl obulin Ratio 0.3 L 11/28/22 12:36: Lactic Acid 1.1 11/28/22 13:27: Urine Color Yellow, Urine Clarity Cloudy, Urine pH 5.0, Ur Specific [place] 1.015, Urine Protein 500 H, Urine Glucose (UA) 250 H, Urine Ketones Negative, Urine Occult Blood 150 H, Urine Nitrite Negative, Urine Bilirubin Negative, Urine Urobilinogen Normal, Ur Leukocyte Esterase 500 H, Urine RBC 0-5 SEEN, Urine WBC 25-50 SEEN, Ur Squamous Epith Cells 0 SEEN, Urine Bacteria 2+, Urine Mucus 0 SEEN, Urine Yeast 2+ Rhythm Strip Rhythm Strip: Sinus Rhythm Rate: 69 Ectopy: None Radiology Impression Chest X-Ray 11/28/22 12:40 IMPRESSION: No acute cardiopulmonary abnormality. No interval change. Electronically Signed: Elijah Sibley MD at 13:18 EST , Assessment & Plan Assessment/Plan (1) Anemia in chronic illness: (2) End stage chronic kidney disease: PLAN: Plan 1. Anemia, acute on chronic blood loss anemia from recurrent GI bleeds Patient recently discharged on 11/28/22 with hemoglobin of 8.6; presents with hemoglobin of 6.8 Patient has been typed and crossmatch 2 units of packed RBC Will repeat HH again We will trend H&H; Consider GI consult if patient hemoglobin continues to drop for repeat EGD 2. Acute recurrent GI bleed, recent EGD on 11/18/2019 showed bleeding esophageal ulcer Continue on IV PPI, Reglan, sucralfate, fluconazole 3. ESRD on hemodialysis, -W-, will consult nephrology 4. DM type I, continue same regimen with insulin sliding scale 5. CAD/ischemic cardiomyopathy, EF 35%/history of CVA/hypertension/hyperlipidemia Continue with amlodipine, Coreg, atorvastatin, hydralazine, isosorbide Hold Lasix for now as patient appears clinically dry 6. Severe protein calorie malnutrition, continue on tube feeds 7. Congenital deafness/blindness, complicates patient's overall care and management 8. DVT prophylaxis?SCDs Charges/Coding Addendum Addendum: Total time spent: 75 minutes of which more > 50% was spent in reviewing patient's chart, laboratory investigations, imaging, discussing with emergency physician, physical examining patient. Visit Charges Inpatient E&M: 01849 Init Hosp L3
--- NOTE | 2022-11-28 16:33 | ED.RN ---
PER HALFWAY NURSE, PT NO RECENT DECLINES, PT UNABLE TO ANSWER.
--- NOTE | 2022-11-28 16:52 | ED.RN ---
THIS RN CALLED [facility] TO LET THEM KNOW PT WAS ADMITTED. THIS RN SPOKE TO ISABEL BETANCUR AT [phone]. ISABEL BETANCUR REQUESTED THIS RN CALL FELICE JOSE (PT STEP SON). THIS RN ATTEMPTED TO CALL PT STEP SON AT [phone]. NO ANSWER.
[2022-11-28 18:15] LABS: Hematocrit 28.7 % (40-54); Hemoglobin 9.5 g/dL (13.0-16.5)
[2022-11-28 19:28] LABS: Ferritin 1854 ng/mL (26-388); Iron 16 ug/dL (65-175); Iron Binding Capacity,Total 59 ug/dL (250-450); PERCENT IRON SATURATION 27.1 % (15.0-55.0)
[2022-11-28 20:47] LABS: Absolute Lymphocyte Count 0.62 X10^3/uL (0.83-4.51); Absolute Neutrophil Count 3.1 X10^3/uL (2.0-7.7); Basophil# 0.05 X10^3/uL; Basophil% 1.1 % (0-1); Eosinophil# 0.04 X10^3/uL; Eosinophils% 0.9 % (0-5); Hematocrit 26.9 % (40-54); Hemoglobin 8.5 g/dL (13.0-16.5); Lymphocyte # 0.62 X10^3/ul (0.83-4.51); Mean Corp Hgb Conc 31.6 g/dL (32-36); Mean Corpuscular Hgb 29.9 pg (27.0-32.0); Mean Corpuscular Volume 94.7 fL (80-94); Mean Platelet Vol. 11.2 fl (6.2-12.0); Monocyte# 0.53 X10^3/uL; NRBC Flagged by Analyzer 0.7 % (0-5); Neutrophil # 3.13 X10^3/uL (2.7-7.7); Neutrophil % 70.6 % (47-70); POSITIVE MORPHOLOGY YES; Platelet Count 357 K/mm3 (150-450); RBC Distribution Width CV 13.7 % (11.6-14.6); Red Blood Count 2.84 M/mm3 (4.6-6.2); White Blood Count 4.4 K/mm3 (4.4-11.0)
[2022-11-28 20:53] LABS: Differential Indicated SCAN CRITERIA MET
[2022-11-28 21:46] LABS: Differential Comment SCANNED
[2022-11-28] MEDS: Metoclopramide 5 MG TABLET GT (22:02)
[2022-11-28] MEDS: Atorvastatin Calcium 40 MG Tablet GT (22:02)
[2022-11-28] MEDS: Dorzolamide HCL/Timolol 10 ml Bottle 1 DRP OPHTHALMIC (22:14)
[2022-11-28] MEDS: Insulin Lispro 100 UNIT/ML INSULN.PEN SC (22:20)
[2022-11-28 23:05] LABS: Bedside Glucose 389 mg/dL (74-106)
[2022-11-29] VITALS (20 sets, daily range): BP systolic 63–84; BP diastolic 30–63; PULSE 79–102; RESP 16–34; TEMP 35.6–38.2; O2SAT 94–99
[2022-11-29 04:16] LABS: Absolute Lymphocyte Count 0.81 X10^3/uL (0.83-4.51); Basophil# 0.08 X10^3/uL; Basophil% 1.2 % (0-1); Eosinophil# 0.07 X10^3/uL; Hematocrit 27.5 % (40-54); Hemoglobin 8.8 g/dL (13.0-16.5); Lymphocyte # 0.81 X10^3/ul (0.83-4.51); Lymphocyte % 11.9 % (19-41); Mean Corpuscular Hgb 29.9 pg (27.0-32.0); Mean Corpuscular Volume 93.5 fL (80-94); Mean Platelet Vol. 11.3 fl (6.2-12.0); Monocyte# 0.71 X10^3/uL; Monocyte% 10.4 % (0-10); NRBC Flagged by Analyzer 0.6 % (0-5); Neutrophil # 5.02 X10^3/uL (2.7-7.7); Neutrophil % 73.5 % (47-70); POSITIVE MORPHOLOGY YES; Platelet Count 363 K/mm3 (150-450); RBC Distribution Width SD 47.4 fl (35.1-43.9); Red Blood Count 2.94 M/mm3 (4.6-6.2); White Blood Count 6.8 K/mm3 (4.4-11.0)
[2022-11-29 04:19] LABS: Differential Indicated SCAN CRITERIA MET
[2022-11-29 04:33] LABS: ALB/GLOB Ratio 0.2 RATIO (0.9-2.4); AST(SGOT) 72 U/L (15-37); Alanine Aminotransfer ALT/SGPT 26 U/L (16-61); Alkaline Phosphatase 111 U/L (45-117); Anion Gap 11 (5-15); BUN 45 mg/dL (7-18); BUN/Creat Ratio 8.8 RATIO (10-20); Calcium,Total 7.9 mg/dL (8.5-10.1); Chloride 93 mmol/L (98-107); Creatinine, Serum 5.12 mg/dL (0.70-1.30); EST Glomerular Filtration Rate 12 mL/min (>60); Est Glom Filt Rate - Afr Amer 15 mL/min (>60); Estimated Creatinine Clearance 14.53 ml/min; Globulin 4.3 g/dL (2.2-4.2); Glucose 351 mg/dL (74-106); Potassium 4.4 mmol/L (3.5-5.1); Protein, Total 5.3 g/dL (6.4-8.2); Sodium Level 129 mmol/L (136-145)
--- NOTE | 2022-11-29 05:11 | PCM.HOSP.N ---
Hospitalist Note Message regarding BP, no evidence of infection on arrival however did despite normal white count seem to potentially have increased neutrophil count on differential and has been having cough and blood pressure slightly low, he does have multiple cultures pending. Ordered ABG, lactic acid, Pro-José. Has been concern of aspirating multiple times will start empiric Zosyn and de-escalate or DC if cultures and clinical status improve. Normal at 50 ordered pending the results with low threshold to DC. Also gave verbal to hold tube feeds given aspiration concerns and decrease long-acting insulin to 10 units for this morning if it is held
[2022-11-29] MEDS: 0.9% Normal Saline 1,000 ML 50 ML IV (05:25)
--- NOTE | 2022-11-29 05:30 | RAD_ITS ---
EXAM: XR CHEST, 1 VIEW CLINICAL INDICATION: sob TECHNIQUE: Frontal view of the chest. This report was created using [employer] report generation technology. COMPARISON: Previous chest radiographs of 11/28/2022 and 11/14/2022. Nonenhanced chest CT of 10/29/2022. FINDINGS: LUNGS AND PLEURAL SPACES: Lesser degree of inspiration with mild crowding of bronchovascular markings. Peribronchial cuffing is present indicating bronchial wall inflammation. Minimal discoid atelectasis has developed at the left lung base laterally. Increased density in the retrocardiac portion of the left lower lobe is probably due to crowding of the bronchovascular markings, but minimal infiltrate such as pneumonia or atelectasis may also be present in this area. No pneumothorax or pleural effusion. HEART: Heart size remains within normal limits. No pulmonary venous hypertension. MEDIASTINUM: There is stable prominence of the main pulmonary artery segments, left greater than right; the pulmonary arterial prominence is confirmed upon review of the prior CT of 11/02. Thoracic aorta is not elongated. No mediastinal widening. BONES/JOINTS: No acute osseous abnormality. SOFT TISSUES: Unremarkable. TUBES, LINES AND DEVICES: Stable positioning of the left internal jugular multilumen catheter. RAD/Chest 1 View (Portable) IMPRESSION: Interval development of peribronchial cuffing indicating bronchial wall inflammation/bronchitis. Superimposed vascular shadows versus developing infiltrate such as pneumonia within the retrocardiac portion of the left lower lobe; continued follow-up may be of benefit. Electronically Signed: Manish Logan MD at 6:59 EST ,
[2022-11-29] MEDS: Insulin Lispro 100 UNIT/ML INSULN.PEN SC (06:05)
[2022-11-29] MEDS: Insulin Glargine-YFGN 100 UNIT/ML Pen 30 UNIT SC (06:06)
[2022-11-29 06:15] LABS: Allen Test Positive; Base Excess -1 mmol/L (-2 to +2); Blood Gas Specimen Type ART; O2 Delivery Device Cannula; PO2 65 mmHG (75-100); SITE L Radial; SO2 95 % (95-99); Total Carbon Dioxide 23 mmol/L; pCO2 27.1 mmHg (35-45); pH 7.52 (7.35-7.45)
[2022-11-29 06:28] LABS: Lactic Acid 2.2 mmol/L (0.4-1.9)
[2022-11-29 06:46] LABS: Bedside Glucose 396 mg/dL (74-106)
[2022-11-29 06:46] LABS: Bedside Glucose 306 mg/dL (74-106)
[2022-11-29 07:10] LABS: Differential Comment SCANNED; Toxic Granulation 2+
[2022-11-29] MEDS: 0.9% Normal Saline 1,000 ML 999 ML IV (09:05)
[2022-11-29] MEDS: Acetaminophen 325 MG Tablet 650 MG PO (09:09)
[2022-11-29] MEDS: Metoclopramide 5 MG TABLET GT ×2 (09:09→21:38)
[2022-11-29] MEDS: Latanoprost 0.005% 1 Bottle 1 DRP OPHTHALMIC (09:09)
[2022-11-29] MEDS: Fluconazole 100 MG Tablet GT (09:09)
[2022-11-29] MEDS: Dorzolamide HCL/Timolol 10 ml Bottle 1 DRP OPHTHALMIC ×2 (09:10→21:39)
[2022-11-29] MEDS: Menthol/Lanolin/Calamine/Znox 113 GM Tube 1 APPLIC TOPICAL ×2 (09:11→21:38)
[2022-11-29 09:19] LABS: Procalcitonin 6.09 ng/mL (0.00-0.09)
[2022-11-29 09:55] LABS: Reflex Lactate? Y
[2022-11-29] MEDS: 0.9% Normal Saline 1,000 ML 125 ML IV ×2 (10:00→17:04)
[2022-11-29 10:52] LABS: Lactic Acid 4.1 mmol/L (0.4-1.9)
[2022-11-29 12:30] LABS: Bedside Glucose 192 mg/dL (74-106)
[2022-11-29 13:36] LABS: Hematocrit 34.7 % (40-54); Hemoglobin 11.2 g/dL (13.0-16.5)
[2022-11-29] MEDS: Midodrine HCl 5 MG Tablet 10 MG GT ×2 (14:57→17:54)
[2022-11-29 18:21] LABS: Bedside Glucose 175 mg/dL (74-106)
--- NOTE | 2022-11-29 18:35 | PCM.PN.HOSP ---
Reason for Visit Reason for Visit: Diagnoses Anemia in other chronic diseases classified elsewhere (11/28/22) End stage renal disease (11/28/22) Subjective Subjective Patient was seen and examined today, he is lethargic and responds to painful stimuli, nursing talked with the patient's son who is the POA, he does not want the patient transferred to ICU for pressor care and he is aware that the patient is doing poorly, he called later this afternoon and stated that he would like the patient to be hospice, at this time a hospice referral is being made for the patient. Patient's blood pressures been low this afternoon, I transfuse 1 unit of packed red blood cells in an attempt to raise his blood pressure, also gave the patient fluids. Zosyn was added to the patient's regimen this morning due to concerns of aspiration. Patient's overall medical condition is very poor. Objective Data Objective Data Vital Signs: Vital Signs Temp Pulse Resp BP Pulse Ox O2 Del Method O2 Flow Rate 97.1 F L 93 30 H 65/30 L 96 Room Air 1 11/29/22 17:00 11/29/22 18:00 11/29/22 18:00 11/29/22 18:00 11/29/22 18:00 11/29/22 18:00 11/29/22 08:30 Oxygen Flow Rate (L/min) 1 Oxygen Delivery Method Room Air Weight: 67.132 kg Body Mass Index (BMI) 22.5 Intake & Output: Intake and Output for Last 24 Hours 11/27/22 11/28/22 11/29/22 23:59 23:59 23:59 Intake Total 640 / 640 3565.83 / 3565.83 Output Total 550 / 1100 590 / 590 Balance 90 / -460 2975.83 / 2975.83 Lab / Micro Data Result Diagrams: 11/29/22 13:30 11/29/22 04:06 Labs: Laboratory Results - last 24 hr 11/28/22 12:36: Iron 16 L, TIBC 59 L, Iron Saturation 27.1, Ferritin 1854 H 11/28/22 16:21: Blood Type O POSITIVE, Antibody Screen NEGATIVE, Crossmatch See Detail 11/28/22 20:38: WBC 4.4, RBC 2.84 L, Hgb 8.5 L, Hct 26.9 L, MCV 94.7 H, MCH 29.9, MCHC 31.6 L, RDW Std Deviation 47.0 H, RDW Coeff of Jenifer 13.7, Plt Count 357, MPV 11.2, Immature Gran % (Auto) 1.400 H, Neut % (Auto) 70.6 H, Lymph % (Auto) 14.0 L, [place] % (Auto) 12.0 H, Eos % (Auto) 0.9, Baso % (Auto) 1.1 H, Absolute Neuts (auto) 3.1, Absolute Lymphs (auto) 0.62 L, Nucleated RBC % 0.7, Differential Comment SCANNED 11/28/22 21:59: POC Glucose 389 H 11/29/22 03:38: POC Glucose 306 H 11/29/22 04:06: WBC 6.8, RBC 2.94 L, Hgb 8.8 L, Hct 27.5 L, MCV 93.5, MCH 29.9, MCHC 32.0, RDW Std Deviation 47.4 H, RDW Coeff of Jenifer 14.0, Plt Count 363, MPV 11.3, Immature Gran % (Auto) 2.000 H, Neut % (Auto) 73.5 H, Lymph % (Auto) 11.9 L, [place] % (Auto) 10.4 H, Eos % (Auto) 1.0, Baso % (Auto) 1.2 H, Absolute Neuts (auto) 5.0, Absolute Lymphs (auto) 0.81 L, Nucleated RBC % 0.6, Differential Comment SCANNED, Toxic Granulation 2+ 11/29/22 04:06: Sodium 129 L, Potassium 4.4, Chloride 93 L, Carbon Dioxide 25.0, Anion Gap 11, BUN 45 H, Creatinine 5.12 H, Estim Creat Clear Calc 14.53, Est GFR (MDRD) Af Amer 15 L, Est GFR (MDRD) Non-Af 12 L, BUN/Creatinine Ratio 8.8 L, Glucose 351 H, Calcium 7.9 L, Total Bilirubin 0.30, AST 72 H, ALT 26, Alkaline Phosphatase 111, Total Protein 5.3 L, Albumin 1.0 L, Globulin 4.3 H, Albumin/Globulin Ratio 0.2 L 11/29/22 05:46: Lactic Acid 2.2 H* 11/29/22 05:46: Procalcitonin 6.09 H 11/29/22 06:04: POC Glucose 396 H 11/29/22 10:15: Lactic Acid 4.1 H* 11/29/22 11:52: POC Glucose 192 H 11/29/22 13:30: Hgb 11.2 L, Hct 34.7 L 11/29/22 17:53: POC Glucose 175 H Micro: Microbiology 11/28/22 13:27 Urine Catheter - Lopez Urine Culture - Preliminary GNR Poss Pseudomonas sp 11/29/22 05:30 Mucosa - Nasopharyngeal Respiratory Panel (PCR) - Final 11/29/22 05:25 Nasal Secretion SARS-CoV-2 & FLU Antigen (Rapid) - Final ABG Data ABG results: ABG 11/29/22 06:09 Specimen Type ART Sample Site L Radial pH 7.52 H Bicarbonate Actual 22.0 Total CO2 23 Base Excess -1 O2 Saturation 95 ABG pCO2 27.1 L ABG pO2 65 L Kev Test Positive O2 Delivery Device Cannula Liter Flow 1.0 Radiography Diagnostic Testing: Radiology Impression Chest X-Ray 11/29/22 05:30 IMPRESSION: Interval development of peribronchial cuffing indicating bronchial wall inflammation/bronchitis. Superimposed vascular shadows versus developing infiltrate such as pneumonia within the retrocardiac portion of the left lower lobe; continued follow-up may be of benefit. Electronically Signed: Manish Logan MD at 6:59 EST , Rhythm Strip Rhythm Strip: Sinus Rhythm Rate: 69 Ectopy: None Physical Exam Const Constitutional Narrative: Patient is lethargic, he responds to painful stimuli HEENT normocephalic, head/scalp atraumatic and moist oral mucous membranes HEENT Narrative: Patient is deaf Neck no JVD and thyroid normal General: trachea midline Resp normal respiratory effort, no retractions, no use of accessory muscles and clear to auscultation bilaterally Auscultation: Negative for rales, rhonchi or wheezes Cardio regular rate, regular rhythm, S1 normal heart sound, S2 normal heart sound, no murmurs, no rub and no gallops GI normal to inspection, nondistended, normoactive bowel sounds, soft to palpation, non-tender and non-distended GI Narrative: PEG in place Extremity no clubbing, cyanosis or edema Skin no rashes or lesions noted General Skin Exam: no breakdown Neuro CN's II-XII intact bilaterally Neuro Narrative: Patient is lethargic, responds to painful stimuli Psych Psych Narrative: Patient is lethargic, nonverbal Assessment & Plan Assessment/Plan (1) End stage chronic kidney disease: PLAN: Plan 1. Anemia-secondary to acute on chronic blood loss from recurrent GI bleeds, earlier today I gave the patient 1 unit of packed red blood cells because he was hypotensive, this did not affect his blood pressure, I talked with nephrology today to consult them but this was before the son decided to make the patient hospice, at the time of this dictation, hospice has been consulted. #2 end-stage renal disease on hemodialysis-nephro was consulted today before the patient was made hospice, they will need to discuss with the son whether he wants dialysis continued. #3 hypotension-etiology unclear at this point, he could have sepsis from possible aspiration, patient is on IV antibiotics at this time, again the patient's son wants a hospice consultation and he is aware that the patient is not doing well and he does not want aggressive care at this time such as pressor agents. #4 cardiomyopathy-ischemic nature, complicates care, medical course, recovery, and prognosis #5 type 1 diabetes-blood sugars will be monitored, sliding scale insulin will be used #6 congenital deafness-complicates care, medical course, recovery, and prognosis Total clinical time spent by myself addressing the patient's medical issues, reviewing his data, and collaborating with patient's care team: 35 minutes Charges/Coding Visit Charges Inpatient E&M: 92654 Subs Hosp L2
[2022-11-29] MEDS: Atorvastatin Calcium 40 MG Tablet GT (21:38)
[2022-11-29 22:35] LABS: Bedside Glucose 210 mg/dL (74-106)
[2022-11-30 00:09] VITALS: BP 84/59; PULSE 69; RESP 24; TEMP 36.1; O2SAT 100
--- NOTE | 2022-11-30 00:37 | NURSING ---
Addendum entered by Lana Perez 11/30/22 01:31: Called at 0025 Original Note: Called Ben and updated about patient's heart rate dropping and not doing well. Instructed RN to call when patient has officially and he will call sister and update her.
--- NOTE | 2022-11-30 00:40 | NURSING ---
Patient's time of verified by 2 RNs Hyun Orr/Hyun Perez. Dr Goode was notified
--- NOTE | 2022-11-30 00:42 | PCM.HOSP.N ---
Hospitalist Note Recieved notification of Mr. Saldivar passing, BPs had been marginal and family decided hospice earlier in the evening. Pt became bradycardic and son contacted, pt soon after. TOD 12:40am 11/30/22
--- NOTE | 2022-11-30 00:50 | NURSING ---
Spoke to step fabiola Contreras made aware patient past away.
--- NOTE | 2022-11-30 13:30 | EXP.PCM_ITS ---
Preliminary Cause of Preliminary Cause of Preliminary Cause of : Septic shock secondary to aspiration pneumonia and cystitis present on admission after evaluation Date of Admission: 11/28/22 Date of : 11/30/22 Principle Diagnosis #1 septic shock secondary to aspiration pneumonia and acute cystitis present at the time of admission #2. Aspiration pneumonia #3 acute cystitis secondary to Pseudomonas #4 chronic iron deficiency anemia secondary to end-stage renal disease and chronic illness #5 deafness #6 end-stage renal disease requiring dialysis #7 type 1 diabetes #8 coronary artery disease #9 ischemic cardiomyopathy Acute gastrointestinal hemorrhage was ruled out Problem List: Active and Suspected Problems (Updated 11/28/22 @ 16:[address] Julio Finney MD) Anemia (Acute) History of GI bleed (Acute) Transfusion history (Acute) History of end stage renal disease (Acute) History of coronary artery disease (Acute) History of diabetes mellitus (Acute) Hospital Course This 57-year-old white male was seen in the emergency room at [facility] after being brought in by squad from a local extended care facility at which she resides secondary to shortness of breath and concerns for aspiration pneumonia. Patient evidently had failed a swallowing eval recently at the custodial. Patient had multiple medical problems including ischemic cardiomyopathy, end-stage renal disease on dialysis, coronary artery disease, chronic anemia, and congenital deafness. Patient was evaluated in the emergency room, chest x-ray did not show any acute infiltrates, patient's chemistry profile showed a sodium of 130, creatinine of 4.19, BUN of 34, and glucose was 314. Patient's lactic acid was 1.1. Patient's urinalysis showed 25-50 WBCs, and +2 bacteria. Patient's CBC showed a slightly low white blood cell count at 3.9 and hemoglobin was reported as 6.8. Patient required low-flow nasal oxygen to maintain his pulse ox above 90%. Patient was admitted to the hospital initially for concerns of acute GI bleed, however, patient's hemoglobin was repeated and his hemoglobin was noted to be 9.5 without the infusion of any packed red blood cells. Patient's blood pressure was low in the emergency room and fluids were given, patient was admitted to PCU and his blood pressure trended downward, chest x-ray was repeated in the early hours of 11/29/2022 and it revealed a pneumonia, patient's lactic acid was repeated and it was elevated at 2.2, he was started on broad- spectrum antibiotics (Zosyn), throughout the day on 11/29/2022, patient was lethargic and blood pressure trended downward, he was given 1 unit of packed red blood cells due to concerns of possible blood loss, he was also given fluids, but the patient's pressure continued to be low. POA was contacted by nursing and the POA requested no aggressive treatment be undertaken such as use of pressor agents or transfer to the ICU. Patient's status worsened throughout the evening of 11/29/2022 and the patient's POA (his son) requested the patient have a hospice consultation. In the early hours of 11/30/2022, patient went bradycardic and then asystolic-he was pronounced at 12:40 AM on 12/08/2022. Cause of is believed to be septic shock from aspiration pneumonia and cystitis.
== END 2022-11-30 01:40 | DRG 871 ==
LOC: ED 16:04 → PCU 16:29
PROVIDERS: Internal Medicine; Admitting Provider Internal Medicine; Emergency Provider Emergency Medicine; PCP Nurse Practitioner Family; Visit Provider Internal Medicine
DX: A41.9 Sepsis, unspecified organism (principal); J15.1 Pneumonia due to Pseudomonas; J69.0 Pneumonitis due to inhalation of food and vomit; R65.21 Severe sepsis with septic shock; E43 Unspecified severe protein-calorie malnutrition; K22.11 Ulcer of esophagus with bleeding; N18.6 End stage renal disease; I12.0 Hypertensive chronic kidney disease with stage 5 chronic kidney disease or end stage renal disease; I16.1 Hypertensive emergency; D62 Acute posthemorrhagic anemia; N30.00 Acute cystitis without hematuria; Z99.2 Dependence on renal dialysis; E10.22 Type 1 diabetes mellitus with diabetic chronic kidney disease; Z79.4 Long term (current) use of insulin; D50.9 Iron deficiency anemia, unspecified; D63.1 Anemia in chronic kidney disease; I25.10 Atherosclerotic heart disease of native coronary artery without angina pectoris; I25.5 Ischemic cardiomyopathy; E78.5 Hyperlipidemia, unspecified; R09.02 Hypoxemia; B96.5 Pseudomonas (aeruginosa) (mallei) (pseudomallei) as the cause of diseases classified elsewhere; Z86.73 Personal history of transient ischemic attack (TIA), and cerebral infarction without residual deficits; H91.93 Unspecified hearing loss, bilateral
CPT/HCPCS: 36415; 36600; 71045; 80053; 81001; 82728; 82803; 82962; 83540; 83550; 83605; 83690; 84145; 85014; 85018; 85025; 85610; 85730; 86850; 86900; 86901; 86920; 86922; 87040; 87077; 87086; 87088; 87186; 87428; 87633; 93005; 94668; 96365; 96366; 97802; 99285; J7030; J7040; J7050; P9016; A4216